=== PATIENT | female | born 1950 | race Caucasian/White ===

== ENCOUNTER 2023-01-13 07:00 | Outpatient (OUT) | payer MEDICARE, SELFPAY ==
[2023-01-13 10:22] LABS: Thyroid Stimulating Hormone 0.303 uIU/mL (0.358-3.740)
[2023-01-13 10:41] LABS: Free T4 1.16 ng/dL (0.76-1.46)
[2023-01-13 10:46] LABS: Free T3 2.37 pg/mL (2.18-3.98)
== END 2023-01-13 07:01 ==
LOC: LAB 01-15 11:08
PROVIDERS: PCP Family Medicine; Visit Provider Family Medicine
DX: E07.81 Sick-euthyroid syndrome (principal); E03.9 Hypothyroidism, unspecified; R53.82 Chronic fatigue, unspecified; E89.0 Postprocedural hypothyroidism
CPT/HCPCS: 36415; 84439; 84443; 84481

== ENCOUNTER 2023-07-30 09:36 | Outpatient (OUT) | payer MEDICARE, SELFPAY ==
--- NOTE | 2023-07-30 09:39 | MM_ITS ---
Patient Name: JOE PEACOCK MR#: [id number] : 1950 Exam Date: 07/30/2023 Ordering Doctor: DR ASHLEY SHERIFF . RADIOLOGY REPORT PROCEDURE: MM TOMOSYNTHESIS SCREENING BI COMPARISON: MG MAMM SCREEN 3D ROLANDO CAD, 02/12/2021. MG MAMM SCREEN ROLANDO W CAD, 07/03/2017. INDICATIONS: Screening Calculator Name NCI Breast Cancer Risk Assessment Tool 5 Year Breast Cancer Risk 2.40% Lifetime Breast Cancer Risk 5.60% Personal Breast Cancer No Personal Ovarian Cancer No Treatments None Family Cancers None LOCATION: [facility] BREAST COMPOSITION: Almost entirely fatty. FINDINGS: DIAGNOSTIC CATEGORY 1--NEGATIVE. NO CHANGE FROM COMPARISON ASSESSMENT. Scattered benign-appearing calcifications are present. Scattered benign-appearing nodules are present. RIGHT BREAST: No significant suspicious finding. LEFT BREAST: No significant suspicious finding. RECOMMENDATIONS: ROUTINE MAMMOGRAM AND CLINICAL EVALUATION IN 12 MONTHS. PLEASE NOTE: A NORMAL MAMMOGRAM DOES NOT EXCLUDE THE POSSIBILITY OF BREAST CANCER. A CLINICALLY SUSPICIOUS PALPABLE LUMP SHOULD BE BIOPSIED. Dictated by: Octavio Giordano MD on 07/30/2023 at 12:41 Approved by: Octavio Giordano MD on 07/30/2023 at 12:42
--- NOTE | 2023-07-30 09:40 | XR_ITS ---
[address] [address] Patient Name: JOE PEACOCK MRN: [id number] date: 1950 Sex: F Assigned Patient Location: [facility] Current Patient Location: [facility] Accession/Order Number: [id number] Exam Date: 07/30/2023 10:00 Report Date: 07/30/2023 12:01 At the request of: ASHLEY SHERIFF Procedure: XR DEXA axial skeleton EXAMINATION: XR DEXA axial skeleton, 07/30/2023 10:00 AM EST HISTORY: Osteoporosis M81.0, Osteopenia Spine M85.88 COMPARISON: 2015, 2011, 2009. TECHNIQUE: Dual-energy X-ray absorptiometry (DEXA) bone density study performed for the axial skeleton. HISTORY: Osteoporosis M81.0, Osteopenia Spine M85.88 FINDINGS: Bone mineral density AP spine L1-L4 measures 1.081 g/sq cm. T score -0.8. WHO classification: Normal. This is related to proliferative osteophyte formation Lowest bone mineral density left femoral trochanter measures 0.342 g/sq cm. T score -4.4. WHO classification: Osteoporosis XR/XR DEXA axial skeleton IMPRESSION: Osteoporosis. High fracture risk Electronically authenticated by: CHIKA SU Date: 07/30/2023 12:01
== END 2023-07-30 09:37 | disposition home or self-care (01) ==
LOC: MAMMO 09:36
PROVIDERS: PCP Family Medicine; Visit Provider Family Medicine
DX: M81.0 Age-related osteoporosis without current pathological fracture (principal); M85.88 Other specified disorders of bone density and structure, other site; Z12.31 Encounter for screening mammogram for malignant neoplasm of breast
CPT/HCPCS: 77063; 77067; 77080

== ENCOUNTER 2023-08-04 10:11 | Outpatient (OUT) | payer MEDICARE, SELFPAY ==
--- OUTSIDE RECORDS SUMMARY | 2023-08-04 10:25 | XMS_ITS | CCD ---
Author Name Unknown Address [facility]ly [facility] 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 Role Phone JAZIEL, DR RAMIREZ Primary Care Unavailable JAZIEL, DR RAMIREZ Admitting Unavailable JAZIEL, DR RAMIREZ Attending Unavailable JAZIEL, DR RAIMREZ Consulting Unavailable JAZIEL, DR RAMIREZ Admitting Unavailable JAZIEL, DR RAMIREZ Attending Unavailable JAZIEL, DR RAMIREZ Consulting Unavailable JAZIEL, DR RAMIREZ Primary Care Unavailable JAZIEL, ASHLEY J Attending Unavailable Allergies Allergy Classification Reported Allergen(s) Allergy Type Date of Onset Reaction(s) Facility (1 source) Cephalexin Drug Allergy 11-28-2013 [facility] (1 source) Iron Drug Allergy 07-03-2015 [facility] (1 source) moxifloxacin Drug Allergy 07-14-2013 [facility] (1 source) Penicillins Drug allergy (disorder) 07-14-2013 [facility] (1 source) Sulfonamides (Antibiotic) Drug allergy (disorder) 07-14-2013 [facility] (1 source) varenicline Drug Allergy 11-28-2013 [facility] Problems Problem Classification Problem Date Documented Date Episodic/Chronic Complications of surgical procedures or medical care (1 source) Postprocedural hypothyroidism; Translations: [POSTPROCEDURAL HYPOTHYROIDISM] Onset: 08-28-2022 Chronic Malaise and fatigue (4 sources) Chronic fatigue, unspecified; Translations: [CHRONIC FATIGUE UNSPECIFIED] Onset: 08-26-2022 Chronic Thyroid disorders (1 source) Sick-euthyroid syndrome; Translations: [SICK-EUTHYROID SYNDROME] Onset: 08-28-2022 Episodic Results Test Name Value Interpretation Reference Range Facil ity REVERSE T3on 08-29-2022 Reverse T3, Serum 23.1 ng/dL Normal 9.2-24.1 [facility] Comment on above: Result Comment: This test was developed and its performance characteristics determined by [facility]. It has not been cleared or approved by the Food and Drug Administration. Performed By: #### R [id number] #### [facility] [address] [place] [address] Dr. Jin Hodges T3, TOTAL (TRIIODOTHYRONINE) on 08-27-2022 T3, TOTAL 136 ng/dL Normal 71-180 [facility] Comment on above: Performed By: #### [id number] #### [facility] [address] [place] [address] Dr. Jin Hodges FREE T3on 08-26-2022 FREE T3 2.98 pg/mlL Normal 2.18-3.98 [facility] Comment on above: Performed By: #### FT3, TSH #### [facility] [address] [place] [address] Dr. Jin Hodges FREE T4on 08-26-2022 Free T4 [Mass/Vol] 0.81 ng/dL Normal 0.76-1.46 [facility] Comment on above: Performed By: #### FT4 #### [facility] [address] [place] [address] Dr. Jin Hodges TSHon 08-26-2022 TSH 0.561 uIU/mL Normal 0.358-3.740 [facility] Comment on above: Performed By: #### FT3, TSH #### [facility] [address] [place] [address] Dr. Jin Hodges REVERSE T3on 03-05-2022 Reverse T3, Serum 21.3 ng/dL Normal 9.2-24.1 [facility] Comment on above: Result Comment: This test was developed and its performance characteristics determined by [facility]. It has not been cleared or approved by the Food and Drug Administration. Performed By: #### R [id number] #### [facility] [address] [place] [address] Dr. Jin Hodges T3, TOTAL (TRIIODOTHYRONINE) on 03-01-2022 T3, TOTAL 123 ng/dL Normal 71-180 [facility] Comment on above: Performed By: #### [id number] #### [facility] [address] [address] [address] Jin Hodges FREE T3on 02-28-2022 FREE T3 3.10 pg/mlL Normal 2.18-3.98 [facility] Comment on above: Performed By: #### TSH, FT3 #### [facility] [address] [address] [address] Jin Hodges FREE T4on 02-28-2022 Free T4 [Mass/Vol] 0.92 ng/dL Normal 0.76-1.46 [facility] Comment on above: Performed By: #### FT4 #### [facility] [address] [address] [address] Jin Hodges TSHon 02-28-2022 TSH 0.133 uIU/mL Critically low 0.358-3.740 [facility] Comment on above: Performed By: #### TSH, FT3 #### [facility] [address] [address] [address] Jin Hodges Encounters Encounter Date Encounter Type Care Provider Facility Start: 07-23-2023 End: 07-23-2023 ambulatory ASHLEY SHERIFF Not Available Start: 08-26-2022 End: 08-27-[address] ASHLEY SHERIFF Facility:[facility] Start: 02-28-2022 End: 03-01-[address] ASHLEY SHERIFF Facility:[facility] Payers Date Payer Category Payer Medicare [id number] 1950 Unknown [id number] 1950 Unknown [id number] 1950 Unknown [id number] Summary Purpose Family History No Family History Records FoundNo Family History Records Found Advance Directives No Advanced Directives Records FoundNo Advanced Directives Records Found Additional Source Comments INFORMATION SOURCE (unrecogn ized section and content) DATE CREATED AUTHOR 08/29/2022 [facility] DATE CREATED AUTHOR AUTHORGregory FREY 07/25/2023 [facility] dical Specialists [facility] FOR RECORDS PERTAINING TO PATIENTS WHO ARE OR HAVE BEEN ENROLLED IN A CHEMICAL DEPENDENCY/SUBSTANCEABUSE PROGRAM, SOME INFORMATION MAY BE OMITTED. This clinical summary was aggregated from multiple sources. Caution should be exercised in using it in the provision of clinical care. This summary normalizes information from multiple sources, and as a consequence, information in this document may materially change the coding, format and clinical context of patient data. In addition, data may be omitted in some cases. CLINICAL DECISIONS SHOULD BE BASED ON THE PRIMARY CLINICAL RECORDS. [email or web address] provides no warranty or guarantee of the accuracy or completeness of information in this document.
[2023-08-04 10:33] LABS: Basophils Absolute Auto 0.1 10^3/uL (0.0-0.1); Basophils Percent Auto 1.2 % (0.2-2.0); Eosinophils Absolute Auto 0.1 10^3/uL (0.0-0.7); Eosinophils Percent Auto 1.7 % (0.9-7.0); Hematocrit 44.8 % (36.0-48.0); Immature Granulocytes Abs Auto 0.01 10^3/uL (0.00-0.03); Immature Granulocytes Pct Auto 0.1 % (0.0-0.5); Lymphocytes Absolute Auto 2.8 10^3/uL (1.2-3.8); Mean Corpuscular HGB Conc 33.5 g/dL (29.9-35.2); Mean Corpuscular Hemoglobin 32.7 pg (26.7-34.0); Mean Corpuscular Volume 97.6 fL (81.0-99.0); Mean Platelet Volume 12.4 fL (9.5-13.5); Monocytes Absolute Auto 0.7 10^3/uL (0.3-0.8); Monocytes Percent Auto 9.8 % (1.7-12.0); Neutrophils Absolute Auto 3.2 10^3/uL (1.4-6.5); Neutrophils Percent Auto 46.2 % (43.0-75.0); Platelet Count 155 10^3/uL (150-450); Red Blood Count 4.59 10^6/uL (4.20-5.40); White Blood Count 6.9 10^3/uL (4.0-11.0)
[2023-08-04 11:15] LABS: Free T4 1.71 ng/dL (0.76-1.46)
[2023-08-04 11:18] LABS: Alanine Aminotransferase 30 U/L (14-59); Albumin Globulin Ratio 0.9; Albumin Level 3.4 g/dL (3.4-5.0); Alkaline Phosphatase 82 U/L (46-116); Anion Gap 9.1; Aspartate Amino Transferase 28 U/L (15-37); BUN Creatinine Ratio 12.3; Bilirubin Total 0.4 mg/dL (0.2-1.0); Calcium 8.9 mg/dL (8.5-10.1); Carbon Dioxide 26.9 mmol/L (21.0-32.0); Chloride 95 mmol/L (98-107); Chol HDL Ratio 2.5; Cholesterol 210 mg/dL (<=200); Estimated GFR (African America >60 (>=60); Estimated GFR (Non-African Ame >60 (>=60); Free T3 1.19 pg/mL (2.18-3.98); Globulin 3.8 g/dL; Glucose 130 mg/dL (74-106); HDL Cholesterol 84 mg/dL (40-60); Sodium 127 mmol/L (136-145); Thyroid Stimulating Hormone 4.947 uIU/mL (0.358-3.740); Total Protein 7.2 g/dL (6.4-8.2); Triglycerides 53 mg/dL (<=150); VLDL CHOLESTEROL 10.6 mg/dL
== END 2023-08-04 10:12 | disposition home or self-care (01) ==
LOC: LAB 10:11
PROVIDERS: PCP Family Medicine; Visit Provider Family Medicine
DX: J96.21 Acute and chronic respiratory failure with hypoxia (principal); E89.0 Postprocedural hypothyroidism; Z13.220 Encounter for screening for lipoid disorders; R53.82 Chronic fatigue, unspecified; M81.0 Age-related osteoporosis without current pathological fracture; E07.81 Sick-euthyroid syndrome
CPT/HCPCS: 36415; 80053; 80061; 84439; 84443; 84481; 85025

== ENCOUNTER 2023-08-11 11:08 | Outpatient (OUT) | payer MEDICARE, SELFPAY ==
--- OUTSIDE RECORDS SUMMARY | 2023-08-11 11:14 | XMS_ITS | CCD ---
Author Name Unknown Address [facility] [address] [place] [address] Organization [facility] Care Team Providers Care Legislative Correspondent Name Role Phone JAZIEL, DR RAMIREZ Primary Care Unavailable JAZIEL, DR RAMIREZ Admitting Unavailable JAZIEL, DR RAMIREZ Attending Unavailable JAZIEL, DR RAMIREZ Consulting Unavailable JAZIEL, DR RAMIREZ Admitting Unavailable JAZIEL, DR RAMIREZ Attending Unavailable JAZIEL, DR RAMIREZ Consulting Unavailable JAZIEL, DR RAMIREZ Primary Care Unavailable JAZIEL, ASHLEY J Attending Unavailable Allergies Allergy Classification Reported Allergen(s) Allergy Type Date of Onset Reaction(s) Facility (1 source) Cephalexin Drug Allergy 11-28-2013 [facility] (1 source) Iron Drug Allergy 07-03-2015 [facility] (1 source) moxifloxacin Drug Allergy 07-14-2013 [facility] (1 source) Penicillins Drug allergy (disorder) 07-14-2013 [facility] (1 source) Sulfonamides (Antibiotic) Drug allergy (disorder) 07-14-2013 [facility] (1 source) varenicline Drug Allergy 11-28-2013 [facility] Problems Problem Classification Problem Date [...] Reverse T3, Serum 23.1 ng/dL Normal 9.2-24.1 [facility] Comment on above: Result Comment: This test was developed and its performance characteristics determined by [facility]. It has not been cleared or approved by the Food and Drug Administration. Performed By: #### R [id number] #### [facility] [address] [place] [address] Dr. Jin Hodges T3, TOTAL (TRIIODOTHYRONINE) on 08-27-2022 T3, TOTAL 136 ng/dL Normal 71-180 [facility] Comment on above: Performed By: #### [id number] #### [facility] [address] [place] [address] Dr. Jin Hodges FREE T3on 08-26-2022 FREE T3 2.98 pg/mlL Normal 2.18-3.98 [facility] Comment on above: Performed By: #### FT3, TSH #### [facility] [address] [place] [address] Dr. Jin Hodges FREE T4on 08-26-2022 Free T4 [Mass/Vol] 0.81 ng/dL Normal 0.76-1.46 [facility] Comment on above: Performed By: #### FT4 #### [facility] [address] [place] [address] Dr. Jin Hodges TSHon 08-26-2022 TSH 0.561 uIU/mL Normal 0.358-3.740 [facility] Comment on above: Performed By: #### FT3, TSH #### [facility] [address] [place] [address] Dr. Jin Hodges REVERSE T3on 03-05-2022 Reverse T3, Serum 21.3 ng/dL Normal 9.2-24.1 [facility] Comment on above: Result Comment: This test was developed and its performance characteristics determined by [facility]. It has not been cleared or approved by the Food and Drug Administration. Performed By: #### R [id number] #### [facility] [address] [place] [address] Dr. Jin Hodges T3, TOTAL (TRIIODOTHYRONINE) on 03-01-2022 T3, TOTAL 123 ng/dL Normal 71-180 [facility] Comment on above: Performed By: #### [id number] #### [facility] [address] [address] [address] Jin Hodges FREE T3on 02-28-2022 FREE T3 3.10 pg/mlL Normal 2.18-3.98 [facility] Comment on above: Performed By: #### TSH, FT3 #### [facility] [address] [address] [address] Jin Hodges FREE T4on 02-28-2022 Free T4 [Mass/Vol] 0.92 ng/dL Normal 0.76-1.46 [facility] Comment on above: Performed By: #### FT4 #### [facility] [address] [address] [address] Jin Hodges TSHon 02-28-2022 TSH 0.133 uIU/mL Critically low 0.358-3.740 [facility] Comment on above: Performed By: #### TSH, FT3 #### [facility] [address] [address] [address] Jin Hodges Encounters Encounter Date Encounter Type Care Provider Facility Start: 07-23-2023 End: 07-23-2023 ambulatory ASHLEY SHERIFF Not Available Start: 08-26-2022 End: 08-27-[address] ASHLEY SHERIFF Facility:[facility] Start: 02-28-2022 End: 03-01-[address] ASHLEY SHERIFF Facility:[facility] Payers Date Payer Category Payer Medicare [id number] 1950 Unknown [id number] 1950 Unknown [id number] 1950 Unknown [id number] Summary Purpose Family History No Family History Records FoundNo Family History Records Found Advance Directives No Advanced Directives Records FoundNo Advanced Directives Records Found Additional Source Comments INFORMATION SOURCE (unrecogn ized section and content) DATE CREATED AUTHOR 08/29/2022 [facility] DATE CREATED AUTHOR AUTHORGregory FREY 07/25/2023 [facility] dical Specialists [facility] FOR RECORDS PERTAINING TO [...] BE BASED ON THE PRIMARY CLINICAL RECORDS. [employer] provides no warranty or guarantee of the accuracy or completeness of information in this document.
[2023-08-11 12:15] LABS: Sodium 136 mmol/L (136-145)
[2023-08-12 17:09] LABS: Osmolality, Urine 552 mOsmol/kg (.)
== END 2023-08-11 11:09 | disposition home or self-care (01) ==
LOC: LAB 11:08
PROVIDERS: PCP Family Medicine; Visit Provider Family Medicine
DX: E87.1 Hypo-osmolality and hyponatremia (principal)
CPT/HCPCS: 36415; 83930; 83935; 84295

== ENCOUNTER 2023-09-11 07:02 | Outpatient (RCR) | payer MEDICARE, SELFPAY ==
[2023-09-11 07:43] VITALS: BP 141/82; PULSE 98; RESP 20; TEMP 36.5; O2SAT 90
--- NOTE | 2023-09-11 07:44 | PC.NURSE ---
0735: Pt. to [facility] amb. Seated in recliner. Educated patient on Cortrosyn stimulation test, denies questions. VSS. Given coffee. 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
[2023-09-11] MEDS: COSYNTROPIN 0.25 MG VIAL 0.00100000000000000002 MG IM (08:14)
--- NOTE | 2023-09-11 08:23 | PC.NURSE ---
0814: Medicated with Cortrosyn 1mcg IM to right deltoid. Trace bleeding to site. Covered with bandaid. Pt. tolerated with min. c/o discomfort. Instructed need to wait 30min. for next blood draw as ordered.
--- NOTE | 2023-09-11 08:44 | PC.NURSE ---
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
--- NOTE | 2023-09-11 08:50 | PC.NURSE ---
0850: Up to bathroom to void. Denies c/o or needs. 0853: Pt. d/c'd, amb to home.
[2023-09-13 15:07] LABS: ACTH, Plasma 16.9 pg/mL (7.2-63.3)
== END 2023-09-24 23:59 | disposition home or self-care (01) ==
LOC: INF 07:02
PROVIDERS: PCP Family Medicine; Visit Provider Family Medicine
DX: E87.1 Hypo-osmolality and hyponatremia (principal)
CPT/HCPCS: 36415; 82024; 82088; 82533; 96372

== ENCOUNTER 2023-11-03 16:08 | Outpatient (OUT) | payer MEDICARE, SELFPAY ==
[2023-11-03 16:57] LABS: Free T4 1.59 ng/dL (0.76-1.46)
[2023-11-03 17:01] LABS: Thyroid Stimulating Hormone 5.237 uIU/mL (0.358-3.740)
== END 2023-11-03 16:09 | disposition home or self-care (01) ==
LOC: LAB 16:11
PROVIDERS: PCP Family Medicine; Visit Provider Family Medicine
DX: E89.0 Postprocedural hypothyroidism (principal)
CPT/HCPCS: 36415; 84439; 84443

== ENCOUNTER 2023-11-17 03:24 | Emergency (ER) | payer MEDICARE, SELFPAY ==
[2023-11-17] VITALS (50 sets, daily range): BP systolic 81–125; BP diastolic 37–81; PULSE 75–110; TEMP 36.7–37; O2SAT 37–100; BMI 25.7
--- NOTE | 2023-11-17 03:30 | CT_ITS ---
[address] [address] Patient Name: JOE PEACOCK MRN: [id number] date: 1950 Sex: F Assigned Patient Location: ED.MAIN Current Patient Location: ED.MAIN Accession/Order Number: [id number] Exam Date: 11/17/2023 04:35 Report Date: 11/17/2023 05:09 At the request of: LIZZY ROCHA Procedure: CT head/brain wo con INDICATION: 73 years old; Female. Fall from chair. TECHNIQUE: CT Head (ax/cor/sag reformats). Ionizing radiation dose reduced via iterative reconstruction/FBP blend and body size kV/mA adjustment. Comparison: Head CT dated 05/03/2021. Brain MRI dated 05/03/2021. FINDINGS: POSTOPERATIVE CHANGES: None. BRAIN PARENCHYMA: No intraparenchymal or extra-axial hemorrhage. No mass effect. No midline shift or herniation. Patchy low-density is seen in the white matter without mass effect. VENTRICLES/EXTRA-AXIAL SPACES: Within normal limits for patient's age. SINUSES/MASTOIDS: Only a portion of the paranasal sinuses are visible. No fluid levels are seen. Mastoids and middle ears are clear. MSK: No displaced or depressed calvarial fracture. OTHER: No hyperdense intraluminal thrombus. Vascular calcifications. TECHNIQUE: CT imaging of the cervical spine was performed. IV contrast: None. Dose reduction techniques were achieved by using automated exposure control and/or adjustment of mA and/or kV according to patient size and/or use of iterative reconstruction technique. COMPARISON: None available. FINDINGS: POSTOPERATIVE CHANGES: None. ALIGNMENT: Nonspecific straightening of the normal cervical curve. Torticollis concave to the left. COMPRESSION FRACTURES: No fracture or vertebral body collapse. No bone destruction. No asymmetric widening of the facets. PREVERTEBRAL SOFT TISSUES: Normal. CRANIOCERVICAL JUNCTION: There is a normal relationship of the occipital condyles, lateral masses of C1, and articular surfaces of C2. The base of the dens and body of C2 are intact. There is narrowing of the predental space with osteophyte formation arising from the anterior arch of C1 and the dens. POSTERIOR FOSSA: Cerebellar tonsils are above the foramen magnum. Disc levels: C2-C3: There is disc space narrowing with [id number] appearance associated with extensive endplate sclerosis. Bulky bridging anterior osteophyte formation is seen. Facet degeneration is present, bilaterally. Central canal is patent. Mild foraminal stenosis. C3-C4: Disc space narrowing. Vertebral endplate degeneration with endplate cystic and vacuum changes. Bulky bridging anterior osteophytes. Facet degeneration. Uncovertebral joint degeneration. Mild central canal stenosis. Moderate left-sided foraminal stenosis. C4-C5: Disc space narrowing. Vertebral endplate degeneration with endplate cystic and vacuum changes. Facet degeneration with hwoq-wo-cjmn appearance of the facets on the left. Bulky bridging anterior osteophytes. Central canal patent. Mild foraminal stenosis bilaterally. C5-C6: This space narrowing. Bulky bridging anterior osteophytes. Central canal patent. Neural foramina patent. C6-C7: Disc space narrowing. Vertebral endplate degeneration. Endplate cystic and vacuum changes. Uncovertebral joint degeneration. Facet degeneration. Central canal patent. Moderate to severe left-sided foraminal stenosis. C7-T1: Disc space narrowing. Bulky bridging anterior osteophytes. Vacuum disc degeneration. Central canal patent. Neural foramina patent. UPPER THORACIC SPINE: At T1-T2, disc space narrowing. Vertebral endplate degeneration with sclerosis and cystic changes. Facet degeneration. Central canal patent. Mild left-sided foraminal stenosis. OTHER: Multiple surgical clips in the region of the thyroid gland. CT/CT head/brain wo con IMPRESSION: 1. No acute intracranial abnormality. No hemorrhage or mass effect. 2. Nonspecific white matter changes. 3. Vascular calcification. 4. Diffuse cervical spondylosis. No acute fracture. Please see the detailed discussion of the individual levels in the body of this report. Electronically authenticated by: CHRISTINE MILLER Date: 11/17/2023 05:09
--- NOTE | 2023-11-17 03:30 | CT_ITS ---
[address] [address] Patient Name: JOE PEACOCK MRN: [id number] date: 1950 Sex: F Assigned Patient Location: ED.MAIN Current Patient Location: ED.MAIN Accession/Order Number: [id number] Exam Date: 11/17/2023 04:35 Report Date: 11/17/2023 05:09 At the request of: LIZZY ROCHA Procedure: CT cervical spine wo con INDICATION: 73 years old; Female. Fall from chair. TECHNIQUE: CT Head (ax/cor/sag reformats). Ionizing radiation dose reduced via iterative reconstruction/FBP blend and body size kV/mA adjustment. Comparison: Head CT dated 05/03/2021. Brain MRI dated 05/03/2021. FINDINGS: POSTOPERATIVE CHANGES: None. BRAIN PARENCHYMA: No intraparenchymal or extra-axial hemorrhage. No mass effect. No midline shift or herniation. Patchy low-density is seen in the white matter without mass effect. VENTRICLES/EXTRA-AXIAL SPACES: Within normal limits for patient's age. SINUSES/MASTOIDS: Only a portion of the paranasal sinuses are visible. No fluid levels are seen. Mastoids and middle ears are clear. MSK: No displaced or depressed calvarial fracture. OTHER: No hyperdense intraluminal thrombus. Vascular calcifications. TECHNIQUE: CT imaging of the cervical spine was performed. IV contrast: None. Dose reduction techniques were achieved by using automated exposure control and/or adjustment of mA and/or kV according to patient size and/or use of iterative reconstruction technique. COMPARISON: None available. FINDINGS: POSTOPERATIVE CHANGES: None. ALIGNMENT: Nonspecific straightening of the normal cervical curve. Torticollis concave to the left. COMPRESSION FRACTURES: No fracture or vertebral body collapse. No bone destruction. No asymmetric widening of the facets. PREVERTEBRAL SOFT TISSUES: Normal. CRANIOCERVICAL JUNCTION: There is a normal relationship of the occipital condyles, lateral masses of C1, and articular surfaces of C2. The base of the dens and body of C2 are intact. There is narrowing of the predental space with osteophyte formation arising from the anterior arch of C1 and the dens. POSTERIOR FOSSA: Cerebellar tonsils are above the foramen magnum. Disc levels: C2-C3: There is disc space narrowing with [id number]-[id number] appearance associated with extensive endplate sclerosis. Bulky bridging anterior osteophyte formation is seen. Facet degeneration is present, bilaterally. Central canal is patent. Mild foraminal stenosis. C3-C4: Disc space narrowing. Vertebral endplate degeneration with endplate cystic and vacuum changes. Bulky bridging anterior osteophytes. Facet degeneration. Uncovertebral joint degeneration. Mild central canal stenosis. Moderate left-sided foraminal stenosis. C4-C5: Disc space narrowing. Vertebral endplate degeneration with endplate cystic and vacuum changes. Facet degeneration with mvaa-fa-msoe appearance of the facets on the left. Bulky bridging anterior osteophytes. Central canal patent. Mild foraminal stenosis bilaterally. C5-C6: This space narrowing. Bulky bridging anterior osteophytes. Central canal patent. Neural foramina patent. C6-C7: Disc space narrowing. Vertebral endplate degeneration. Endplate cystic and vacuum changes. Uncovertebral joint degeneration. Facet degeneration. Central canal patent. Moderate to severe left-sided foraminal stenosis. C7-T1: Disc space narrowing. Bulky bridging anterior osteophytes. Vacuum disc degeneration. Central canal patent. Neural foramina patent. UPPER THORACIC SPINE: At T1-T2, disc space narrowing. Vertebral endplate degeneration with sclerosis and cystic changes. Facet degeneration. Central canal patent. Mild left-sided foraminal stenosis. OTHER: Multiple surgical clips in the region of the thyroid gland. CT/CT cervical spine wo con IMPRESSION: 1. No acute intracranial abnormality. No hemorrhage or mass effect. 2. Nonspecific white matter changes. 3. Vascular calcification. 4. Diffuse cervical spondylosis. No acute fracture. Please see the detailed discussion of the individual levels in the body of this report. Electronically authenticated by: CHRISTINE MILLER Date: 11/17/2023 05:09
--- NOTE | 2023-11-17 03:30 | ECG_ITS ---
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
--- NOTE | 2023-11-17 03:31 | ED.FALL1 ---
HPI HPI - Fall General Chief Complaint: Fall Stated Complaint: FALL HEAD INJURY Time Seen by Provider: 11/17/23 03:26 History of Present Illness HPI Narrative: 73-year-old female presents because she fell. It happened less than an hour ago in her kitchen and she states her legs gave out. Yesterday she also fell when her legs gave out and she sustained an abrasion to her nose. She appears to have hit her right forehead and has some neck pain. No injury to her extremities chest or abdomen or back. She was transported here by paramedics Related Data Home Medications ?Medication ?Instructions ?Recorded ?Confirmed baclofen 20 mg tablet 20 mg PO Q8H 11/17/23 11/17/23 buspirone 15 mg tablet 15 mg PO TID 11/17/23 11/17/23 Allergies Allergy/AdvReac Type Severity Reaction Status Date / Time moxifloxacin [From Avelox] Allergy Hives Verified 11/17/23 03:44 codeine AdvReac Verified 11/17/23 03:44 Opioid HPI Opioid Management Most Recent Pain and Opioid Data: Last Pain Scale 8 11/17/23 04:28 Last ED Pain Assessment 11/17/23 03:57 Last MAR Pain Assessment 11/17/23 04:28 Review of Systems ROS Narrative A ten point review of systems is negative except as noted above. Exam Narrative Exam Narrative: Nurses note and vital signs reviewed and patient is not hypoxic. General: The patient appears well and in no apparent distress. Patient is resting comfortably on cart. Skin: Warm, dry, pallor noted. There is no rash noted. Head: Normocephalic, small bruise present on the right side of her forehead. No focal area of tenderness to palpation of her neck. Eye: Normal conjunctiva, no drainage Ears, Nose, Mouth, and Throat: oral mucosa is moist. Nares patent. Cardiovascular: Regular Rate and Rhythm Respiratory: Patient is in no distress, no accessory muscle use, lungs are clear to auscultation, no wheezing, rales or rhonchi Back: non-tender GI: Soft and nontender Musculoskeletal: No palpable tenderness to her extremities, all joints including the hips have full range of motion actively. Neurological: A&O, normal speech Psychiatric: Cooperative Constitutional Vital Signs, click to edit/add: Last Vital Signs Temp 98.1 F 11/17/23 03:27 Pulse 81 04/23/24 04:34 Resp 14 11/17/23 04:34 BP 110/57 11/17/23 04:34 Pulse Ox 94 L 11/17/23 04:34 O2 Del Method Room Air 11/17/23 04:34 Course Vital Signs Vital signs: Vital Signs Temperature 98.1 F 11/17/23 03:27 Pulse Rate 82 11/17/23 03:27 Respiratory Rate 16 11/17/23 03:27 Blood Pressure 94/47 L 11/17/23 03:27 Pulse Oximetry 92 L 11/17/23 03:27 Oxygen Delivery Method Room Air 11/17/23 03:27 Temperature 98.1 F 11/17/23 03:27 Pulse Rate 81 11/17/23 04:34 Respiratory Rate 14 11/17/23 04:34 Blood Pressure 110/57 11/17/23 04:34 Pulse Oximetry 94 L 11/17/23 04:34 Oxygen Delivery Method Room Air 11/17/23 04:34 MDM - Fall MDM Narrative Medical decision making narrative: The patient has had black stools and she has had this for few weeks. She is heme positive with a hemoglobin of 4.8. She is hemodynamically stable and typed and crossed and 2 units of blood were ordered. I have spoken to hospitalist at [facility] and the patient is excepted there for transfer at the patient's request. Findings were discussed with the patient and her family. Differential Diagnosis Differential diagnosis: Likely syncope and other (GI bleed, anemia, dehydration) Lab Data Attestation: I reviewed the patient's lab results. Labs: Lab Results 11/17/23 11/17/23 Range/Units 03:39 03:55 WBC 11.6 H (4.0-11.0) 10^3/uL RBC 1.45 L (4.20-5.40) 10^6/uL Hgb 4.8 L* (12.0-16.0) g/dL Hct 15.1 L* (36.0-48.0) % MCV 104.1 H (81.0-99.0) fL MCH 33.1 (26.7-34.0) pg MCHC 31.8 (29.9-35.2) g/dL RDW 17.4 H (11.0-15.0) % Plt Count 288 (150-450) 10^3/uL MPV 11.6 (9.5-13.5) fL Neut % (Auto) 68.4 (43.0-75.0) % Lymph % (Auto) 22.6 (20.5-60.0) % [place] % (Auto) 7.3 (1.7-12.0) % Eos % (Auto) 0.5 L (0.9-7.0) % Baso % (Auto) 0.2 (0.2-2.0) % Neut # (Auto) 7.9 H (1.4-6.5) 10^3/uL Lymph # (Auto) 2.6 (1.2-3.8) 10^3/uL [place] # (Auto) 0.9 H (0.3-0.8) 10^3/uL Eos # (Auto) 0.1 (0.0-0.7) 10^3/uL Baso # (Auto) 0.0 (0.0-0.1) 10^3/uL Abs Immat Gran (auto) 0.12 H (0.00-0.03) 10^3/uL Imm/Tot Granulo (auto) 1.0 H (0.0-0.5) % Sodium 135 L (136-145) mmol/L Potassium 4.3 (3.5-5.1) mmol/L Chloride 100 (98-107) mmol/L Carbon Dioxide 25.8 (21.0-32.0) mmol/L Anion Gap 13.5 BUN 27.0 H (7.0-18.0) mg/dL Creatinine 0.81 (0.55-1.02) mg/dL Est GFR ( Amer) >60 (>=60) Est GFR (Non-Af Amer) >60 (>=60) BUN/Creatinine Ratio 33.3 Glucose 127 H (74-106) mg/dL Calcium 8.3 L (8.5-10.1) mg/dL Stool Occult Blood Positive A Blood Type A Positive Antibody Screen Negative Imaging Data CT scan - head: Radiologist's impression: ITS Impressions Cervical Spine CT 11/17/23 03:30 IMPRESSION: 1. No acute intracranial abnormality. No hemorrhage or mass effect. 2. Nonspecific white matter changes. 3. Vascular calcification. 4. Diffuse cervical spondylosis. No acute fracture. Please see the detailed discussion of the individual levels in the body of this report. Electronically authenticated by: CHRISTINE MILLER Date: 11/17/2023 05:[address] 11/17/23 03:30 IMPRESSION: 1. No acute intracranial abnormality. No hemorrhage or mass effect. 2. Nonspecific white matter changes. 3. Vascular calcification. 4. Diffuse cervical spondylosis. No acute fracture. Please see the detailed discussion of the individual levels in the body of this report. Electronically authenticated by: CHRISTINE MILLER Date: 11/17/2023 05:09 ECG Data Attestation: I personally reviewed and interpreted this ECG as follows: (EKG on my interpretation shows sinus rhythm with a rate of 104) Discharge Plan Discharge Chief Complaint: Fall Clinical Impression: GI bleed, Anemia Patient Disposition: [facility] Time of Disposition Decision: 04:50 Discharge Location: [facility] Condition: Fair Mode of Transportation: EMS
[2023-11-17 03:47] LABS: Basophils Percent Auto 0.2 % (0.2-2.0); Eosinophils Absolute Auto 0.1 10^3/uL (0.0-0.7); Eosinophils Percent Auto 0.5 % (0.9-7.0); Immature Granulocytes Abs Auto 0.12 10^3/uL (0.00-0.03); Lymphocytes Absolute Auto 2.6 10^3/uL (1.2-3.8); Lymphocytes Percent Auto 22.6 % (20.5-60.0); Mean Corpuscular HGB Conc 31.8 g/dL (29.9-35.2); Mean Corpuscular Hemoglobin 33.1 pg (26.7-34.0); Mean Corpuscular Volume 104.1 fL (81.0-99.0); Mean Platelet Volume 11.6 fL (9.5-13.5); Monocytes Absolute Auto 0.9 10^3/uL (0.3-0.8); Monocytes Percent Auto 7.3 % (1.7-12.0); Neutrophils Absolute Auto 7.9 10^3/uL (1.4-6.5); Neutrophils Percent Auto 68.4 % (43.0-75.0); Platelet Count 288 10^3/uL (150-450); Red Blood Count 1.45 10^6/uL (4.20-5.40); Red Cell Distribution Width 17.4 % (11.0-15.0); White Blood Count 11.6 10^3/uL (4.0-11.0)
[2023-11-17 03:52] LABS: Hemoglobin 4.8 g/dL (12.0-16.0)
[2023-11-17 03:53] LABS: Hematocrit 15.1 % (36.0-48.0)
--- OUTSIDE RECORDS SUMMARY | 2023-11-17 04:01 | XMS_ITS | CCD ---
Author Organization [facility] Care Team Providers Care Perioperative Assistant Name Role Phone JAZIEL, DR RAMIREZ Primary Care Unavailable JAZIEL, DR RAMIREZ Admitting Unavailable JAZIEL, DR RAMIREZ Attending Unavailable JAZIEL, DR RAMIREZ Consulting Unavailable JAZIEL, DR RAMIREZ Admitting Unavailable JAZIEL, DR RAMIREZ Attending Unavailable JAZIEL, DR RAMIREZ Consulting Unavailable JAZIEL, DR RAMIREZ Primary Care Unavailable Catracho Sheriff MD Unavailable [phone] Catracho Sheriff MD Primary Care Provider [phone] CATRACHO SHERIFF Attending Unavailable CATRACHO SHERIFF Attending Unavailable CATRACHO SHERIFF Attending Unavailable CATRACHO SHERIFF Attending Unavailable CATRACHO SHERIFF Attending Unavailable Allergies Allergy Classification Reported Allergen(s) Allergy Type Date of Onset Reaction(s) Facility (1 source) Cephalexin Drug Allergy 4 [facility] (1 source) Iron Drug Allergy 5 [facility] (1 source) moxifloxacin Drug Allergy 3 [facility] (1 source) Penicillins Drug allergy (disorder) 3 [facility] (1 source) Sulfonamides (Antibiotic) Drug allergy (disorder) 3 [facility] (1 source) varenicline Drug Allergy 4 [facility] (1 source) busPIRone Drug Allergy 3 [facility] (1 source) Cephalexin Drug Allergy 3 [facility] (1 source) Codeine Drug Allergy 3 [facility] (1 source) Mirtazapine Drug Allergy 3 Hallucinations [facility] (1 source) moxifloxacin Drug Allergy 3 [facility] (1 source) Penicillins Drug Allergy 3 Rash [facility] (1 source) traZODone Drug Allergy 3 [facility] (1 source) varenicline Drug Allergy 3 [facility] Medications Current Medications Medication Drug Class(es) Dates Sig (Normalized) Sig (Original) [id number] 200 actuat albuterol 0.09 mg/actuat metered dose inhaler (1 source) beta2-Adrenergi c Agonist take 2 puff(s) by inhalation every six hours as needed, then take 2 puff(s) by inhalation four times daily as needed albuterol HFA (Ventolin HFA) 90 mcg/act inhaler Inhale 2 puffs every 6 (six) hours if needed. 2 puffs as needed Inhalation four times daily as needed for 90 days 0 Active albuterol 0.833 mg/ml / ipratropium bromide 0.167 mg/ml inhalation solution (1 source) Anticholinergic , beta2-Adrenergi c Agonist ipratropium-albutero l (Duo-Neb) 0.5-2.5 mg/3 mL nebulizer solution Take 3 mL by nebulization in the morning and 3 mL at noon and 3 mL in the evening and 3 mL before bedtime. 0 Active baclofen 20 mg oral tablet (1 source) gamma-Aminobuty joselito Acid-ergic Agonist Start: 07-30-2023 baclofen (Lioresal) 20 MG tablet Indications: Chronic pain syndrome Take one half tablet in the morning, One half tablet at lunch, and 2 tablets in the evening 270 tablet 0 07/30/2023 Active busPIRone hydrochloride 15 mg oral tablet (1 source) Start: 04-29-2023 busPIRone (Buspar) 15 MG tablet Indications: Generalized anxiety disorder (CMS/HCC) Take 1 tablet at breakfast and 1 tablet lunch, and 2 tablets at bedtime. 360 tablet 1 04/29/2023 Active calcium citrate 1040 mg oral tablet (1 source) calcium citrate 1040 MG tablet Take 250 mg by mouth in the morning and 250 mg before bedtime. 0 Active cholecalciferol 0.025 mg oral capsule (2 sources) Vitamin D take 1 capsule by mouth in the morning cholecalciferol (Vitamin D-3) 25 MCG (1000 UT) capsule Take 3,000 Units by mouth in the morning. Summer Dose. 0 Active take 1 tablet by mouth in the mo rn cholecalciferol (Vitamin D-3) 125 MCG (5000 UT) tablet Take 5,000 Units by mouth in the morning. Winter dose. 0 Active doxycycline hyclate 100 mg oral tablet (1 source) Tetracycline-class Drug Start: 08-21-2023 End: 09-04-2023 doxycycline (Vibra-Tabs) 100 MG tablet Indications: Cellulitis of lower extremity, unspecified laterality Take 1 tablet (100 mg) by mouth in the morning and 1 tablet (100 mg) before bedtime. Do all this for 14 days. Take with a full glass of water and do not lie down for at least 30 minutes after.. 28 tablet 0 08/21/2023 09/04/2023 Active DULoxetine 20 mg delayed release oral capsule (1 source) Serotonin and Norepinephrine Reuptake Inhibitor Start: 08-21-2023 End: 11-19-2023 take 2 capsules by mouth in the morning DULoxetine (Cymbalta) [address] capsule Indications: Chronic pain syndrome Take 2 capsules (40 mg) by mouth in the morning. 180 capsule 0 08/21/2023 11/19/2023 Active 120 actuat fluticasone propionate 0.22 mg/actuat metered dose inhaler (1 source) Corticosteroid Start: 12-02-2022 take 1 puff(s) by inhalation in the morning Flovent HFA 220 MCG/ACT inhaler Inhale 1 puff in the morning and 1 puff before bedtime. 0 12/02/2022 Active gabapentin 100 mg oral capsule (2 sources) Anti-epileptic Agent Start: 05-28-2023 End: 02-21-2024 take 1 capsule by mouth in the morning, then take 1 capsule by mouth in the evening, then take 1 capsule by mouth at bedtime gabapentin (Neurontin) 100 MG capsule Indications: Chronic pain syndrome Take 1 capsule (100 mg) by mouth in the morning and 1 capsule (100 mg) in the evening and 1 capsule (100 mg) before bedtime. 270 capsule 1 08/25/2023 02/21/2024 Active levothyroxine sodium 0.15 mg oral tablet (1 source) l-Thyroxine Start: 08-21-2023 levothyroxine (Synthroid) 150 MCG tablet Indications: Acquired hypothyroidism (CMS/HCC) Take 1 tablet daily 90 tablet 1 08/21/2023 Active melatonin 3 mg oral tablet (1 source) take 2 tablets by mouth at bedtime melatonin 3 MG tablet Take 3 mg by mouth at bedtime. 2 tablet Orally at bedtime 0 Active nabumetone 750 mg oral tablet (1 source) Nonsteroidal Anti-inflammatory Drug Start: 04-29-2023 End: 10-26-2023 take 2 tablets by mouth in the morning nabumetone (Relafen) 750 MG tablet Indications: Chronic pain syndrome Take 2 tablets (1,500 mg) by mouth in the morning. 180 tablet 1 04/29/2023 10/26/2023 Active spironolactone 25 mg oral tablet (1 source) Aldosterone Antagonist Start: 08-21-2023 End: 02-17-2024 take 1 tablet by mouth in the morning spironolactone (Aldactone) 25 MG tablet Indications: Venous (peripheral) insufficiency Take 1 tablet (25 mg) by mouth in the morning. 90 tablet 1 08/21/2023 02/17/2024 Active STRONTIUM CITRATE (1 source) take 1 tablet by mouth in the morning STRONTIUM CITRATE Take 1 tablet by mouth in the morning. 0 Active traMADol hydrochloride 50 mg oral tablet (1 source) Opioid Agonist Start: 07-23-2023 End: 10-21-2023 traMADol (Ultram) 50 MG tablet Indications: Chronic pain syndrome Take 2 tablets (100 mg) by mouth in the morning and 2 tablets (100 mg) at noon and 2 tablets (100 mg) in the evening and 2 tablets (100 mg) before bedtime. 240 tablet 2 07/23/2023 10/21/2023 Active zinc gluconate 50 mg oral tablet (1 source) take 0.5 tablet by mouth once daily zinc gluconate 50 MG tablet Take 50 mg by mouth See administration instructions. 1/2 tablet= 25mg Orally Once a day for 30 day(s) 0 Active Problems Active Problems Problem Classification Problem Date Documented Date Episodic/Chronic Anxiety disorders (1 source) Generalized anxiety disorder; Translations: [Generalized anxiety disorder] Onset: 01-06-2023 08-13-2023 Chronic Chronic obstructive pulmonary disease and bronchiectasis (3 sources) Mucopurulent chronic bronchitis; Translations: [Mucopurulent chronic bronchitis] Onset: 05-30-2016 Resolved: 08-13-2023 01-06-2023 Chronic Complications of surgical procedures or medical care (2 sources) Postprocedural hypothyroidism; Translations: [Postoperative hypothyroidism] Onset: 08-28-2022 01-06-2023 Chronic Esophageal disorders (1 source) Gastroesophageal reflux disease; Translations: [Gastro-esophageal reflux disease without esophagitis] Onset: 01-06-2023 01-06-2023 Chronic Malaise and fatigue (5 sources) Chronic fatigue, unspecified; Translations: [Fatigue] Onset: 08-26-2022 Chronic Osteoarthritis (4 sources) Bilateral arthritis of knees; Translations: [Bilateral primary osteoarthritis of knee] Onset: 01-06-2023 09-04-2023 Chronic Osteoporosis (1 source) Osteoporosis; Translations: [Age-related osteoporosis without current pathological fracture] Onset: 01-06-2023 01-06-2023 Chronic Other diseases of veins and lymphatics (2 sources) Stasis dermatitis; Translations: [Venous insufficiency (chronic) (peripheral)] Onset: 01-06-2023 09-04-2023 Episodic Other nervous system disorders (2 sources) Chronic pain syndrome; Translations: [Chronic pain syndrome] Onset: 01-06-2023 09-04-2023 Chronic Residual codes; unclassified (1 source) Sleep dysfunction with arousal disturbance; Translations: [Other sleep disorders] Onset: 01-06-2023 01-06-2023 Chronic Respiratory failure; insufficiency; arrest (adult) (6 sources) Chronic hypoxemic respiratory failure; Translations: [Chronic respiratory failure with hypoxia] Onset: 01-06-2023 Resolved: 08-13-2023 09-04-2023 Chronic Screening and history of mental health and substance abuse codes (1 source) Ex-smoker; Translations: [Personal history of nicotine dependence] Onset: 07-23-2023 07-23-2023 Episodic Spondylosis; intervertebral disc disorders; other back problems (3 sources) Lumbar post-laminectomy syndrome; Translations: [Postlaminectomy syndrome, not elsewhere classified] Onset: 01-06-2023 Resolved: 08-13-2023 01-06-2023 Chronic Past or Other Problems Problem Classification Problem Date Documented Da te Episodic/Chronic Complications of surgical procedures or medical care (1 source) Complication of surgical procedure; Translations: [Unspecified complication of procedure, initial encounter] Onset: 09-03-2020 Resolved: 07-31-2023 07-31-2023 Episodic Mood disorders (1 source) Recurrent major depression in partial remission; Translations: [Major depressive disorder, recurrent, in partial remission] Onset: 01-06-2023 Resolved: 08-13-2023 08-13-2023 Chronic Mood disorders (1 source) Mood disorders Onset: 08-13-2023 08-13-2023 Other aftercare (1 source) Polypharmacy ; Translations: [Other longterm (current) drug therapy] Onset: 09-07-2020 01-28-2023 Episodic Other aftercare (1 source) Taking high risk medication; Translations: [Other longterm (current) drug therapy] Onset: 09-07-2020 Resolved: 07-31-2023 07-31-2023 Episodic Other bone disease and musculoskeletal deformities (1 source) Osteopenia; Translations: [Other specified disorders of bone density and structure, other site] Onset: 01-06-2023 01-06-2023 Episodic Other connective tissue disease (1 source) Fibromyalgia; Translations: [Fibromyalgia] Onset: 01-06-2023 01-06-2023 Episodic Other diseases of veins and lymphatics (1 source) Peripheral venous insufficiency; Translations: [Venous insufficiency (chronic) (peripheral)] Onset: 01-06-2023 01-06-2023 Episodic Other injuries and conditions due to external causes (1 source) At risk for falls ; Translations: [History of falling] Onset: 05-28-2018 01-28-2023 Episodic Other nervous system disorders (1 source) Difficulty walking; Translations: [Difficulty in walking, not elsewhere classified] Onset: 01-06-2023 Resolved: 07-31-2023 07-31-2023 Chronic Other nervous system disorders (1 source) Allodynia; Translations: [Other disturbances of skin sensation] Onset: 01-06-2023 01-06-2023 Episodic Other nervous system disorders (1 source) White matter disease; Translations: [White matter disease, unspecified] Onset: 01-06-2023 08-13-2023 Episodic Other nutritional; endocrine; and metabolic disorders (1 source) Overweight; Translations: [Overweight] Onset: 12-05-2015 01-28-2023 Episodic Other upper respiratory infections (1 source) Maxillary sinusitis; Translations: [Chronic maxillary sinusitis] Onset: 01-06-2023 Resolved: 08-13-2023 08-13-2023 Chronic Substance-related disorders (1 source) Cigarette smoker ; Translations: [Nicotine dependence, cigarettes, uncomplicated] Onset: 05-27-2021 Resolved: 07-31-2023 07-31-2023 Chronic Thyroid disorders (2 sources) Sick-euthyroid syndrome; Translations: [Sick-euthyroid syndrome] Onset: 08-28-2022 01-06-2023 Episodic Varicose veins of lower extremity (1 source) Varicose vein of leg with phlebitis; Translations: [Varicose veins of right lower extremity with inflammation] Onset: 01-06-2023 Resolved: 08-13-2023 08-13-2023 Episodic Results Test Name Value Interpretation Reference Range Facil ity REVERSE T3on 08-29-2022 Reverse T3, Serum 23.1 ng/dL Normal 9.2-24.1 [facility] Comment on above: Result Comment: This test was developed and its performance characteristics determined by [facility]. It has not been cleared or approved by the Food and Drug Administration. Performed By: #### R [id number] #### [facility] [address] [address] [address] Jin Hodgse T3, TOTAL (TRIIODOTHYRONINE) on 08-27-2022 T3, TOTAL 136 ng/dL Normal 71-180 [facility] Comment on above: Performed By: #### [id number] #### [facility] [address] [address] [address] Jin Hodges FREE T3on 08-26-2022 FREE T3 2.98 pg/mlL Normal 2.18-3.98 [facility] Comment on above: Performed By: #### FT3, TSH #### [facility] [address] [address] [address] Jin Hodges FREE T4on 08-26-2022 Free T4 [Mass/Vol] 0.81 ng/dL Normal 0.76-1.46 [facility] Comment on above: Performed By: #### FT4 #### [facility] [address] [place] [address] Dr. Jin Hodges TSHon 08-26-2022 TSH 0.561 uIU/mL Normal 0.358-3.740 [facility] Comment on above: Performed By: #### FT3, TSH #### [facility] [address] [place] [address] Dr. Jin Hodges REVERSE T3on 03-05-2022 Reverse T3, Serum 21.3 ng/dL Normal 9.2-24.1 [facility] Comment on above: Result Comment: This test was developed and its performance characteristics determined by [facility]. It has not been cleared or approved by the Food and Drug Administration. Performed By: #### R [id number] #### [facility] [address] [place] [address] Dr. Jin Hodges T3, TOTAL (TRIIODOTHYRONINE) on 03-01-2022 T3, TOTAL 123 ng/dL Normal 71-180 [facility] Comment on above: Performed By: #### [id number] #### [facility] [address] [place] [address] Dr. Jin Hodges FREE T3on 02-28-2022 FREE T3 3.10 pg/mlL Normal 2.18-3.98 [facility] Comment on above: Performed By: #### TSH, FT3 #### [facility] [address] [place] [address] Dr. Jin Hodges FREE T4on 02-28-2022 Free T4 [Mass/Vol] 0.92 ng/dL Normal 0.76-1.46 [facility] Comment on above: Performed By: #### FT4 #### [facility] [address] [place] [address] Dr. Jin Hodges TSHon 02-28-2022 TSH 0.133 uIU/mL Critically low 0.358-3.740 [facility] Comment on above: Performed By: #### TSH, FT3 #### [facility] [address] [address] [address] Jin Hodges Vital Signs Date Time Vital Sign Value Performing Clinician Faci lity 08-25-2023 10:17050 Body height 162.6 cm Catracho Sheriff MD Work Phone: [facility] 08-25-2023 10:17-0500 Body mass index (BMI) [Ratio] 25.06 kg/m2 Catracho Sheriff MD Work Phone: [facility] 08-25-2023 10:17050 Body weight 66.22 kg Catracho Sheriff MD Work Phone: [facility] Encounters Encounter Date Encounter Type Care Provider Facility Start: 11-03-2023 End: 11-03-2023 ambulatory CATRACHO SHERIFF Not Available Start: 10-21-2023 End: 10-21-2023 ambulatory CATRACHO SHERIFF Not Available Start: 08-25-2023 End: 08-25-2023 ambulatory CATRACHO SHERIFF Not Available Start: 08-25-2023 End: 08-25-2023 Office outpatient visit 25 minutes Catracho Sheriff MD Work Phone: [facility] Comment on above: Chronic pain syndrom e (Primary Dx); Chronic respiratory failure with hypoxia (CMS/HCC); Dependence on supplemental oxygen; Stasis dermatitis of both legs; Arthritis of both knees Start: 08-13-2023 End: 08-13-2023 ambulatory CATRACHO SHERIFF Not Available Start: 07-23-2023 End: 07-23-2023 ambulatory CATRACHO SHERIFF Not Available Start: 08-26-2022 End: 08-27-[address] CATRACHO SHERIFF Facility:[facility] Start: 02-28-2022 End: 03-01-[address] CATRACHO SHERIFF Facility:[facility] Procedures Date Procedure Procedure Detail Performing Clinician Start: 09-12-2013 Colonoscopy Catracho lazo MD Work Phone: Plan of Treatment Date Care Activity Detail Author Start: 08-13-2024 Medicare Annual Well ness (AWV) Medicare Annual Wellness (AWV) [facility] Start: 10-21-2023 End: 10-21-2023 Patient encounter procedure 10/21/2023 10:30 AM EDT Office Visit [facility] [address] [place] [address] Catracho Sheriff MD [address] [place] [address] (Fax) [facility] Start: 09-12-2023 Screening for malign ant neoplasm of colon [facility] Start: 03-27-2023 Influenza vaccination Influenza Vacc ine (#1) [facility] Start: 1950 Screening for malign ant neoplasm of colon [facility] Immunizations Immunization Date Immunization Notes Care Provider Fa cility 05-03-2021 Seasonal, trivalent, recombinant, injectable influenza vaccine, preservative free Catracho Sheriff MD Work Phone: [facility] 05-03-2021 influenza virus vacc ine, unspecified formulation Catracho Sheriff MD Work Phone: [facility] 12-03-2020 Pfizer Purple Cap SARS-CoV-2 Vaccination Catracho Sheriff MD Work Phone: [facility] 11-12-2020 Pfizer Purple Cap SARS-CoV-2 Vaccination Catracho Sheriff MD Work Phone: [facility] 09-26-2019 Influenza, High-dose Seasonal, Quadrivalent, Preservative Free Catracho Sheriff MD Work Phone: [facility] 09-26-2019 pneumococcal polysaccharide vaccine, 23 valent Catracho Sheriff MD Work Phone: [facility] 06-26-2018 influenza, injectabl e, quadrivalent, preservative free Catracho Sheriff MD Work Phone: [facility] 06-26-2018 pneumococcal conjuga te vaccine, 13 valent Catracho Sheriff MD Work Phone: [facility] 11-11-2004 pneumococcal polysaccharide vaccine, 23 valent Catracho Sheriff MD Work Phone: [facility] 11-11-2004 tetanus and diphther ia toxoids, adsorbed, preservative free, for adult use (5 Lf of tetanus toxoid and 2 Lf of diphtheria toxoid) Catracho Sheriff MD Work Phone: [facility] Payers Date Payer Category Payer Medicare [employer]VANTAGE [employer]ARE [id number] 2022-Present [address] [address] [place] [address] [id number] 1961 Medicare [id number] 1950 Unknown [id number] 1948 Unknown [id number] 3 1948 Unknown [id number] 1948 Unknown [id number] 59 1948 Unknown [id number] 59 1948 Unknown [id number] 59 1950 Unknown [id number] Social History Date Type Detail Facility Start: 08-13-2023 Tobacco smoking stat [facility] Ex-smoker [facility] History of tobacco use Current smoker [facility] History of tobacco use Cigarette Smoker [facility] Start: 08-13-2023 Tobacco use and exposure Smoke less tobacco non-user [facility] Start: 08-25-2023 Alcohol intake Ex-drinker (finding) [facility] Start: 08-13-2023 End: 08-25-2023 [facility] Start: 08-13-2023 End: 08-25-2023 Tobacco use panel [facility] Start: 02-24-2023 Education 13 [facility] Start: 02-24-2023 Alcohol Comment Caffeine intak e: drinks decaf [facility] Start: 1950 Sex Assigned At Not on file [facility] History of Present illness Narrative 08-25-2023 Catracho Sheriff MD - 08/25/2023 10:30 AM EST Note Date & Type Note Facility 08-25-2023 History of Presen t illness Narrative Patient ID: Joe Ewing is a 73 y.o. female who presents for: Subjective Joe Ewing is a 73 y.o. female who presents for evaluation of a possible skin infection located left lower leg which she states started with redness and heat last week. Symptoms include swelling, redness, warm to touch. Patient denies fever, chilss, wound seepage. Precipitating event: none known. Treatment to date has included antibiotics started a few days ago with minimal relief. Review of Systems Constitutional: Negative for chills and fever. Respiratory: Negative for cough, shortness of breath and wheezing. Cardiovascular: Negative for chest pain and palpitations. Gastrointestinal: Negative for abdominal pain. Genitourinary: Negative for frequency and urgency. Objective The patient is pleasant and in no acute distress The head is normocephalic and atraumatic Although no formal testing is done, patient does appear to have a gross neurologic deficit concerning memory and goal directed thinking during the interview. The patient has good eye contact and clear speech. Bilateral legs are edematous. The left is greater than right. 1+ approaching 2+ in the left leg and 1+ in the right leg. There is more of a violaceous hue than a true redness. There is no significant increasing calor. No open lesions. Adequate capillary refill. [facility] Result Encounter on 08/11/2023 Component Date Value Ref Range Status SODIUM 08/11/2023 136 136 - 145 mmol/L Final OSMOLALITY 08/11/2023 275 (A) 280 - 301 mOsmol/kg Final Comment: Performed at: [facility] [id number] Subacute Nurse: Arleen Wong MD, Phone: [phone] OSMOLALITY, URINE 08/11/2023 552 . mOsmol/kg Final Comment: 24 hr : 300 - 900 Random: 50 - 1400 After 12hr fluid restriction: >850 Performed at: - [facility] [id number] Subacute Nurse: Arleen Wong MD, Phone: [phone] [facility] Result Encounter on 08/04/2023 Component Date Value Ref Range Status [facility] WBC 08/04/2023 6.9 4.0 - 11.0 10 3/uL Final [facility] RBC 08/04/2023 4.59 4.20 - 5.40 10 6/uL Final [facility] HGB 08/04/2023 15.0 12.0 - 16.0 g/dL Final [facility] HCT 08/04/2023 44.8 36.0 - 48.0 % Final [facility] MCV 08/04/2023 97.6 81.0 - 99.0 fL Final [facility] MCH 08/04/2023 32.7 26.7 - 34.0 pg Final [facility] MCHC 08/04/2023 33.5 29.9 - 35.2 g/dL Final [facility] RDW 08/04/2023 13.0 11.0 - 15.0 % Final [facility] PLT 08/04/2023 155 150 - 450 10 3/uL Final [facility] MPV 08/04/2023 12.4 9.5 - 13.5 fL Final NEUTROPHILS PERCENT AUTO 08/04/2023 46.2 43.0 - 75.0 % Final LYMPHOCYTES PERCENT AUTO 08/04/2023 41.0 20.5 - 60.0 % Final MONOCYTES PERCENT AUTO 08/04/2023 9.8 1.7 - 12.0 % Final [facility] EO % 08/04/2023 1.7 0.9 - 7.0 % Final BASOPHILS PERCENT AUTO 08/04/2023 1.2 0.2 - 2.0 % Final IMMATURE GRANULOCYTES PCT AUTO 08/04/2023 0.1 0.0 - 0.5 % Final NEUTROPHILS ABSOLUTE AUTO 08/04/2023 3.2 1.4 - 6.5 10 3/uL Final LYMPHOCYTES ABSOLUTE AUTO 08/04/2023 2.8 1.2 - 3.8 10 3/uL Final MONOCYTES ABSOLUTE AUTO 08/04/2023 0.7 0.3 - 0.8 10 3/uL Final TBH EO # 08/04/2023 0.1 0.0 - 0.7 10 3/uL Final BASOPHILS ABSOLUTE AUTO 08/04/2023 0.1 0.0 - 0.1 10 3/uL Final IMMATURE GRANULOCYTES ABS AUTO 08/04/2023 0.01 0.00 - 0.03 10 3/uL Final FREE T4 08/04/2023 1.71 (H) 0.76 - 1.46 ng/dL Final SODIUM 08/04/2023 127 (L) 136 - 145 mmol/L Final POTASSIUM 08/04/2023 4.0 3.5 - 5.1 mmol/L Final CHLORIDE 08/04/2023 95 (L) 98 - 107 mmol/L Final CARBON DIOXIDE 08/04/2023 26.9 21.0 - 32.0 mmol/L Final ANION GAP 08/04/2023 9.1 Final GLUCOSE 08/04/2023 130 (H) 74 - 106 mg/dL Final BLOOD UREA NITROGEN 08/04/2023 9.0 7.0 - 18.0 mg/dL Final CREATININE 08/04/2023 0.73 0.55 - 1.02 mg/dL Final TBH EGFR-AF LEBANESE 08/04/2023 >60 >=60 Final TBH EGFR-NON AF LEBANESE 08/04/2023 >60 >=60 Final BUN CREATININE RATIO 08/04/2023 12.3 Final CALCIUM 08/04/2023 8.9 8.5 - 10.1 mg/dL Final BILIRUBIN TOTAL 08/04/2023 0.4 0.2 - 1.0 mg/dL Final ASPARTATE AMINO TRANSFERASE 08/04/2023 28 15 - 37 U/L Final ALANINE AMINOTRANSFERASE 08/04/2023 30 14 - 59 U/L Final ALKALINE PHOSPHATASE 08/04/2023 82 46 - 116 U/L Final TOTAL PROTEIN 08/04/2023 7.2 6.4 - 8.2 g/dL Final ALBUMIN LEVEL 08/04/2023 3.4 3.4 - 5.0 g/dL Final GLOBULIN 08/04/2023 3.8 g/dL Final ALBUMIN GLOBULIN RATIO 08/04/2023 0.9 Final TRIGLYCERIDES 08/04/2023 53 <=150 mg/dL Final CHOLESTEROL 08/04/2023 210 (H) <=200 mg/dL Final HDL CHOLESTEROL 08/04/2023 84 (H) 40 - 60 mg/dL Final Comment: > or =60 mg/dl - LOW CARDIOVASCULAR RISK <40 mg/dl - HIGH CARDIOVASCULAR RISK LDL CHOLESTEROL CALCULATED 08/04/2023 116.0 mg/dL Final Comment: <100 mg/dl OPTIMAL 100-129 mg/dl NEAR OR ABOVE OPTIMAL 130-159 mg/dl BORDERLINE HIGH 160-189 mg/dl HIGH >190 mg/dl VERY HIGH VLDL CHOLESTEROL 08/04/2023 10.6 mg/dL Final CHOL HDL RATIO 08/04/2023 2.5 Final Comment: 3.3 - 4.4 LOW RISK 4.4 - 7.1 AVERAGE RISK 7.1 - 11.0 MODERATE RISK >11.0 HIGH RISK FREE T3 08/04/2023 1.19 (L) 2.18 - 3.98 pg/mL Final THYROID STIMULATING HORMONE 08/04/2023 4.947 (H) 0.358 - 3.740 uIU/mL Final Office Visit on 07/23/2023 Component Date Value Ref Range Status AMPHETAMINES 07/23/2023 Negative Final BARBITURATES OB 07/23/2023 Negative Final BUPRENORPHINE OB 07/23/2023 Negative Final BENZODIAZEPINES OB 07/23/2023 Negative Final COCAINE OB 07/23/2023 Negative Final METHAMPHETAMINE OB 07/23/2023 Negative Final ECSTACY OB 07/23/2023 Negative Final METHADONE OB 07/23/2023 Negative Final OPIATES OB 07/23/2023 Negative Final OXYCODONE OB 07/23/2023 Negative Final PHENCYCLIDINE OB 07/23/2023 Negative Final TRICYCLIC ANTIDEPRESSANTS OB 07/23/2023 Positive Corrected Visit Vitals Ht 5' 4 Wt 146 lb BMI 25.06 kg/m OB Status Postmenopausal Smoking Status Former BSA 1.73 m Allergies Allergen Reactions Buspirone Other Reaction(s): angry Cephalexin Other Reaction(s): papular rash to body Codeine Other Reaction(s): nightmares Moxifloxacin Other Reaction(s): burning, skin swelling, turn red Remeron [Mirtazapine] Hallucinations Trazodone Other Reaction(s): iritable Varenicline Other Reaction(s): agitation Penicillins Rash Current Outpatient Medications Medication Instructions albuterol HFA (Ventolin HFA) 90 mcg/act inhaler 2 puffs, Inhalation, Every 6 hours PRN, 2 puffs as needed Inhalation four times daily as needed for 90 days baclofen (Lioresal) 20 MG tablet Take one half tablet in the morning, One half tablet at lunch, and 2 tablets in the evening busPIRone (Buspar) 15 MG tablet Take 1 tablet at breakfast and 1 tablet lunch, and 2 tablets at bedtime. calcium citrate 250 mg, Oral, 2 times daily cholecalciferol (VITAMIN D-3) 3,000 Units, Oral, Daily, Summer Dose cholecalciferol (VITAMIN D-3) 5,000 Units, Oral, Daily, Winter dose doxycycline (VIBRA-TABS) 100 mg, Oral, 2 times daily, Take with a full glass of water and do not lie down for at least 30 minutes after. DULoxetine (CYMBALTA) 40 mg, Oral, Daily Flovent HFA 220 MCG/ACT inhaler 1 puff, Inhalation, 2 times daily RT gabapentin (NEURONTIN) 100 mg, Oral, 3 times daily ipratropium-albuterol (Duo-Neb) 0.5-2.5 mg/3 mL nebulizer solution 3 mL, Nebulization, 4 times daily RT levothyroxine (Synthroid) 150 MCG tablet Take 1 tablet daily melatonin 3 mg, Oral, Nightly, 2 tablet Orally at bedtime nabumetone (RELAFEN) 1,500 mg, Oral, Daily spironolactone (ALDACTONE) 25 mg, Oral, Daily STRONTIUM CITRATE 1 tablet, Oral, Daily traMADol (ULTRAM) 100 mg, Oral, 4 times daily zinc gluconate 50 mg, Oral, See admin instructions, /2 tablet= 25mg Orally Once a day for 30 day(s) Assessment/Plan Diagnoses and all orders for this visit: Chronic pain syndrome - gabapentin (Neurontin) 100 MG capsule; Take 1 capsule (100 mg) by mouth in the morning and 1 capsule (100 mg) in the evening and 1 capsule (100 mg) before bedtime. - Handicap Placard Lifetime Chronic problem, stable, multifactorial, with complex decision making. The patient presents for reevaluation of their chronic pain syndrome and treatment recommendations. They note, that the pain is still present but under reasonable control with home therapies and medications. They state that they are taking their medications compliantly and perceiving a benefit specifically from these medications. They deny any significant side effects from the medications themselves. The treatment program enables them to continue their activities of daily living. The OARRS and NARX scores were reviewed and seem to be consistent with their prescribing pattern. The Current Opioid Misuse Measure (COMM) is reviewed and there is no evidence of aberrant behavior or abuse. Continuation of the patient's current treatment plan appears to be medically appropriate, providing a degree of relief of the patient's symptoms . Follow-up longitudinally. In prescribing a renewal to their current medication, consideration of the following encompasses moderate decision making; the current prescriptions and supplements, the current allergies and medication intolerances, current medical conditions, and potential drug interactions. Drug interaction screening is reviewed and there are moderate to major severity ratings to consider during prescription drug management. If the adjusted medication is considered a controlled substance, then the OARRS and NARX scores are obtained and reviewed. Any changes to risks, benefits, and reason for renewing their current medication due to the above were discussed. The patient was given a chance to ask questions today and all questions were answered. The patient is to contact us, preferably by using the patient portal, or call if any other questions arise or if any problems occur with the renewal of their medication. (Utilizing the original 1994/1996 guidelines or the 2020 new office/outpatient code guidelines for selecting the level of E/M service, In both sets of guidelines, prescription drug management appears in the moderate medical decision making (MDM) row. Neither the original guidelines nor the new guidelines state that a new prescription or change is needed in order to credit prescription drug management) Chronic respiratory failure with hypoxia ([facility]) - Handicap Placard Lifetime Chronic problem that is currently stable. This problem is medically not going to have any significant improvement. Along with her chronic pain the venous insufficiency and this I do suspect that she will need a handicap placard for lifetime. Dependence on supplemental oxygen Wearing mostly when she is laying down. Stasis dermatitis of both legs Chronic problem that is unstable and worsening. I do not believe she has an actual cellulitis here. There are also no ulcers. After discussion we have mutually agreed that she is going to get into her chair and elevate her legs. I've asked her during those times of elevation that she move her feet so that we get contraction of the calf muscle. Stressed the importance of this to help avoid blood clots. She is to moisturize twice daily with a white unscented moisturizer. I do not think she specifically needs steroids at this point. Continue with her diuretic. She may also have a component of pulmonary hypertension associated with this. I did review the signs and symptoms of worsening with her not just the edema, but worsening of the color changes in her leg and/or ulcer. She is either to contact the office back or potentially consider going to the emergency room. documented in this encounter [facility] Evaluation note Note Date & Type Note Facility Evaluation note Diagnosis Chronic pain syndrome- Primary Chronic respiratory failure with hypoxia (CMS/HCC) Dependence on supplemental oxygen Stasis dermatitis of both legs Arthritis of both knees documented in this encounter [facility] Summary Purpose Family History No Family History Records FoundNo Family History Records Found Advance Directives No Advanced Directives Records FoundNo Advanced Directives Records Found Additional Source Comments INFORMATION SOURCE (unrecogn ized section and content) DATE CREATED AUTHOR 08/29/2022 [facility] DATE CREATED AUTHOR AUTHOR'S ORGANIZ ATION 11/04/2023 [facility] Reason for Visit (unrecogniz ed section and content) Reason Comments Recurrent Skin Infections Care Teams (unrecognized sec tion and content) Perioperative Assistant Relationship Specialty Start Date End Date Catracho Sheriff MD [address] [facility] [place] [address] PCP - [employer] 07/27/22 Catracho Sheriff MD [address] [place] [id number] PCP - General Family Medicine 01/05/23 FOR RECORDS PERTAINING TO PATIENTS WHO ARE [...] BE BASED ON THE PRIMARY CLINICAL RECORDS. [employer] [facility]. provides no warranty or guarantee of the accuracy or completeness of information in this document.
[2023-11-17 04:02] LABS: Anion Gap 13.5; BUN Creatinine Ratio 33.3; Calcium 8.3 mg/dL (8.5-10.1); Carbon Dioxide 25.8 mmol/L (21.0-32.0); Chloride 100 mmol/L (98-107); Estimated GFR (African America >60 (>=60); Estimated GFR (Non-African Ame >60 (>=60); Glucose 127 mg/dL (74-106); Potassium 4.3 mmol/L (3.5-5.1); Sodium 135 mmol/L (136-145)
[2023-11-17 04:08] LABS: Occult Blood Positive
[2023-11-17] MEDS: 0.9 % SODIUM CHLORIDE 500 ML IV (04:25)
[2023-11-17] MEDS: MORPHINE SULFATE 4 MG/ML VIAL 2 MG IV (04:28)
[2023-11-17] MEDS: PANTOPRAZOLE SODIUM 40 MG VIAL IV (05:40)
[2023-11-17] MEDS: MORPHINE SULFATE 4 MG/ML VIAL IV (06:17)
== END 2023-11-17 09:40 | disposition short-term general hospital (02) ==
PROVIDERS: Emergency Provider Emergency Medicine; PCP Family Medicine
DX: K92.2 Gastrointestinal hemorrhage, unspecified (principal); D64.9 Anemia, unspecified; Z79.899 Other long term (current) drug therapy; Z91.81 History of falling
CPT/HCPCS: 36415; 36430; 70450; 72125; 80048; 85025; 86850; 86900; 86901; 93005; 96374; 96375; 96376; 99285; G0328; P9016; P9038

== ENCOUNTER 2023-11-24 21:18 | Emergency (ER) | payer MEDICARE, SELFPAY ==
[2023-11-24] VITALS (24 sets, daily range): BP systolic 69–93; BP diastolic 29–47; PULSE 80–102; TEMP 36.1–36.6; O2SAT 87–100
--- NOTE | 2023-11-24 21:22 | ECG_ITS ---
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
--- OUTSIDE RECORDS SUMMARY | 2023-11-24 21:25 | XMS_ITS | CCD ---
Author Organization [facility] Care Team Providers Care 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 Name Role Phone JAZIEL, DR RAMIREZ Primary Care Unavailable JAZIEL, DR RAMIREZ Admitting Unavailable JAZIEL, DR RAMIREZ Attending Unavailable JAZIEL, DR RAMIREZ Consulting Unavailable JAZIEL, DR RAMIREZ Admitting Unavailable JAZIEL, DR RAMIREZ Attending Unavailable JAZIEL, DR RAMIREZ Consulting Unavailable JAZIEL, DR RAMIREZ Primary Care Unavailable Catracho Sheriff MD Unavailable Catracho Sheriff MD Primary Care Provider CATRACHO SHERIFF Attending Unavailable CATRACHO SHERIFF Attending Unavailable CATRACHO SHERIFF Attending Unavailable CATRACHO SHERIFF Attending Unavailable CATRACHO SHERIFF Attending Unavailable MD Catracho Sheriff Primary Care Provider DO Frantz Nieves Admit Provider [phone] MD Jaspal Whalen Attending Provider MD Seun Freitas Other Provider Frantz Nieves Admitting Unavailable Jaspal Whalen Attending Unavailable Catracho Sheriff Primary Care Unavailable Seun Freitas Consulting Unavailable Allergies Allergy Classification Reported Allergen(s) Allergy Type Date of Onset Reaction(s) Facility (1 source) Cephalexin Drug Allergy 4 [facility] (1 source) Iron Drug Allergy 5 [facility] (1 source) moxifloxacin Drug Allergy 3 [facility] (1 source) Penicillins Drug allergy (disorder) 3 [facility] (1 source) Sulfonamides (Antibiotic) Drug allergy (disorder) 3 [facility] (1 source) varenicline Drug Allergy 4 [facility] (1 source) busPIRone Drug Allergy 3 [facility] (1 source) Cephalexin Drug Allergy 3 [facility] (2 sources) Codeine Drug Allergy 3 Nightmare [facility] (1 source) Mirtazapine Drug Allergy 3 Hallucinations [facility] (2 sources) moxifloxacin Drug Allergy 3 Itching [facility] (1 source) Penicillins Drug Allergy 3 Rash [facility] (1 source) traZODone Drug Allergy 3 [facility] (1 source) varenicline Drug Allergy 3 [facility] (1 source) Meperidine Drug Allergy 4 [facility] Medications Current Medications Medication Drug Class(es) Dates Sig (Normalized) Sig (Original) [id number] 200 actuat albuterol 0.09 mg/actuat metered dose inhaler (1 source) beta2-Adrenergic Agonist take 2 puff(s) by inhalation every six hours as needed, then take 2 puff(s) by inhalation four times daily as needed albuterol HFA (Ventolin HFA) 90 mcg/act inhaler Inhale 2 puffs every 6 (six) hours if needed. 2 puffs as needed Inhalation four times daily as needed for 90 days 0 Active albuterol 0.833 mg/ml / ipratropium bromide 0.167 mg/ml inhalation solution (2 sources) Anticholinergic, beta2-Adrenergic Agonist Start: 11-17-2023 take 1 mL by inhalation three times daily Ipratropium-Albut nasir Active 3 ML INHALATION Three times daily November 17, 2023 12:00am ipratropium-albu terol (Duo-Neb) 0.5-2.5 mg/3 mL nebulizer solution Take 3 mL by nebulization in the morning and 3 mL at noon and 3 mL in the evening and 3 mL before bedtime. 0 Active baclofen 20 mg oral tablet (2 sources) gamma-Aminobutyric Acid-ergic Agonist Start: 11-17-2023 take 10 mg by mouth at breakfast Baclofen Active 10 MG PO With breakfast and lunch November 17, 2023 12:00am Start: 07-30-2023 baclofen (Ten esal) 20 MG tablet Indications: Chronic pain syndrome Take one half tablet in the morning, One half tablet at lunch, and 2 tablets in the evening 270 tablet 0 07/30/2023 Active busPIRone hydrochloride 15 mg oral tablet (2 sources) Start: 11-17-2023 take 1 tablet by mouth three times daily at bedtime, then take 1 tablet by mouth at lunch, then take 2 tablets by mouth at bedtime Buspirone Active 15 MG PO Three times daily November 17, 2023 12:00am take 1 tab at bedtime 1 tab at lunch and 2 tabs at bedtime Start: 04-29-2023 busPIRone (Bus par) 15 MG tablet Indications: Generalized anxiety disorder [...] 1 tablet by mouth in the mo rning cholecalciferol (Vitamin D-3) 125 MCG (5000 UT) [...] DULoxetine 20 mg delayed release oral capsule (2 sources) Serotonin and Norepinephrine Reuptake Inhibitor Start: 11-17-2023 take 40 mg by mouth once daily in the morning Duloxetine Active 40 MG PO Every morning November 17, 2023 12:00am Start: 08-21-2023 End: 11-19-2023 take 2 capsules [...] 12/02/2022 Active gabapentin 100 mg oral capsule (3 sources) Anti-epileptic Agent Start: 05-28-2023 End: 02-21-2024 take 100 mg by mouth three times daily at bedtime Gabapentin Active 100 MG PO Three times daily November 17, 2023 12:00am morning, evening and bedtime levothyroxine sodium 0.15 mg oral tablet (2 sources) l-Thyroxine Start: 11-17-2023 take 150 ug by mouth once daily in the morning Levothyroxine Active 150 MCG PO Every morning November 17, 2023 12:00am Start: 08-21-2023 levothyroxine (Synthroid) 150 MCG tablet Indications: Acquired hypothyroidism (CMS/HCC) Take 1 tablet daily 90 tablet 1 08/21/2023 Active melatonin 3 mg oral tablet (1 source) take 2 tablets by mouth at bedtime melatonin 3 MG tablet Take 3 mg by mouth at bedtime. 2 tablet Orally at bedtime 0 Active pantoprazole 40 mg delayed release oral tablet (1 source) Proton Pump Inhibitor Start: 11-21-19 take 1 tablet by mouth twice daily, then take 1 tablet by mouth once daily Pantoprazole (Protonix) 40 mg tablet,delayed release (DR/EC) Active 40 MG PO Twice daily 180 90 November 21, 2023 12:00am 40 mg po bid x 4 weeks then 40 mg po daily; pls dispense accordingly polysaccharide iron complex 150 mg oral capsule (1 source) Start: 04-27-20 24 Polysaccharide Iron Complex Active 150 MG PO Every 48 hours 60 November 21, 2023 12:00am spironolactone 25 mg oral tablet (2 sources) Aldosterone Antagonist Start: 08-21-19 End: 02-17-20 take 25 mg by mouth once daily in the morning Spironolactone Active 25 MG PO Every morning November 17, 2023 12:00am STRONTIUM CITRATE (1 source) take 1 tablet by mouth in the morning STRONTIUM CITRATE Take 1 tablet by mouth in the morning. 0 Active traMADol hydrochloride 50 mg oral tablet (2 sources) Opioid Agonist Start: 11-17-19 take 100 mg by mouth four times daily Tramadol Active 100 MG PO Four times daily November 17, 2023 12:00am Start: 07-23-2023 End: 10-21-2023 traMADol (Ultram) 50 MG tabl et Indications: Chronic pain syndrome Take 2 tablets [...] a day for 30 day(s) 0 Active Completed/Discontinued Medications Medication Drug Class(es) Dates Sig (Normalized) Sig (Original) nabumetone 750 mg oral tablet (2 sources) Nonsteroidal Anti-inflammatory Drug Start: 11-17-2023 End: 11-21-2023 take 1500 mg by mouth once daily in the morning Nabumetone Discontinued 1500 MG PO Every morning November 17, 2023 12:00am November 21, 2023 11:28am Start: 04-29-2023 End: 10-26-2023 take 2 tablets by mouth in the morning nabumetone (Relafen) 750 MG tablet Indications: Chronic pain syndrome Take 2 tablets (1,500 mg) by mouth in the morning. 180 tablet 1 04/29/2023 10/26/2023 Active Problems Active Problems Problem Classification Problem Date Documented Da te Episodic/Chronic Anxiety disorders (1 source) Generalized anxiety disorder; Translations: [Generalized anxiety disorder] Onset: 3 08-13-2023 Chronic Chronic obstructive pulmonary disease and bronchiectasis (3 sources) Mucopurulent chronic bronchitis; Translations: [Mucopurulent chronic bronchitis] Onset: 6 Resolved: 4 01-06-2023 Chronic Complications of surgical procedures or medical care (2 sources) Postprocedural hypothyroidism; Translations: [Postoperative hypothyroidism] Onset: 3 01-06-2023 Chronic Deficiency and other anemia (1 source) Anemia; Translations: [Anemia, unspecified] 11-17-2023 Episodic Deficiency and other anemia (2 sources) Anemia, unspecified; Translations: [Anemia, unspecified] Onset: 4 11-21-2023 Episodic Esophageal disorders (1 source) Gastroesophageal reflux disease; Translations: [Gastro-esophageal reflux disease without esophagitis] Onset: 3 01-06-2023 Chronic Gastroduodenal ulcer (except hemorrhage) (3 sources) Ulcer of duodenum; Translations: [Duodenal ulcer, unspecified as acute or chronic, without hemorrhage or perforation] Onset: 4 11-19-2023 Chronic Gastrointestinal hemorrhage (3 sources) Gastrointestinal hemorrhage; Translations: [Gastrointestinal hemorrhage, unspecified] Onset: 4 11-17-2023 Episodic Malaise and fatigue (5 sources) Chronic fatigue, unspecified; Translations: [Fatigue] Onset: 3 Chronic Malaise and fatigue (3 sources) Asthenia; Translations: [Weakness] Onset: 4 11-17-2023 Episodic Osteoarthritis (4 sources) Bilateral arthritis of knees; Translations: [Bilateral primary osteoarthritis of knee] Onset: 3 09-04-2023 Chronic Osteoporosis (1 source) Osteoporosis; Translations: [Age-related osteoporosis without current pathological fracture] Onset: 3 01-06-2023 Chronic Other diseases of veins and lymphatics (2 sources) Stasis dermatitis; Translations: [Venous insufficiency (chronic) (peripheral)] Onset: 3 09-04-2023 Episodic Other hematologic conditions (1 source) Macrocytosis; Translations: [Other specified diseases of blood and blood-forming organs] 11-17-2023 Chronic Other hematologic conditions (2 sources) Other specified diseases of blood and blood-forming organs; Translations: [Other specified diseases of blood and blood-forming organs] Onset: 4 11-21-2023 Chronic Other nervous system disorders (2 sources) Chronic pain syndrome; Translations: [Chronic pain syndrome] Onset: 3 09-04-2023 Chronic Other nutritional; endocrine; and metabolic disorders (1 source) Unintentional weight loss; Translations: [Abnormal weight loss] 11-17-2023 Episodic Other nutritional; endocrine; and metabolic disorders (2 sources) Abnormal weight loss; Translations: [Loss of weight] Onset: 4 11-21-2023 Episodic Other skin disorders (1 source) Night sweats; Translations: [Generalized hyperhidrosis] 11-17-2023 Episodic Residual codes; unclassified (1 source) Sleep dysfunction with arousal disturbance; Translations: [Other sleep disorders] Onset: 3 01-06-2023 Chronic Residual codes; unclassified (1 source) Tobacco user; Translations: [Tobacco use] 11-17-2023 Episodic Residual codes; unclassified (2 sources) Tobacco use; Translations: [Tobacco use disorder] Onset: 4 11-21-2023 Episodic Respiratory failure; insufficiency; arrest (adult) (6 sources) Chronic hypoxemic respiratory failure; Translations: [Chronic respiratory failure with hypoxia] Onset: 3 Resolved: 4 09-04-2023 Chronic Screening and history of mental health and substance abuse codes (1 source) Ex-smoker; Translations: [Personal history of nicotine dependence] Onset: 3 07-23-2023 Episodic Spondylosis; intervertebral disc disorders; other back problems (3 sources) Lumbar post-laminectomy syndrome; Translations: [Postlaminectomy syndrome, not elsewhere classified] Onset: 3 Resolved: 4 01-06-2023 Chronic Substance-related disorders (3 sources) Finding relating to drug misuse behavior; Translations: [Other psychoactive substance use, unspecified, uncomplicated] Onset: 4 11-18-2023 Episodic Past or Other Problems Problem Classification Problem [...] aftercare (1 source) Polypharmacy ; Translations: [Other shelter (current) drug therapy] Onset: 09-07-2020 01-28-2023 Episodic Other aftercare (1 source) Taking high risk medication; Translations: [Other vermin exterminator (current) drug therapy] Onset: 09-07-2020 Resolved: 07-31-2023 [...] Results Test Name Value Interpretation Reference Range Facility Erythrocyte distribution wid th Auto (RBC) [Ratio]Ordered By: Frantz Nieves on 11-21-2023 Erythrocyte distribution width (RBC) [Ratio] 16.3 % 11.9-15.3 [facility] Ferritinon 11-21-2023 Ferritin [Mass/Vol] 40.6 ng/mL Normal 11.0-306.8 [facility] Comment on above: Result Comment: PERF ORMED BY: [place] [address] PATHOLOGIST LEAD CARGOMAN EVY GARCIA M.D. Performed By: #### H H #### [address] Ferritin [Mass/volume] in Se rum or PlasmaOrdered By: Jaspal Whalen on 11-21-2023 Ferritin [Mass/Vol] 40.6 ng/mL 11.0-306.8 [facility] Hematocrit Auto (Bld) [Volum e fraction]Ordered By: Frantz Nieves on 11-21-2023 Hematocrit (Bld) [Volume fraction] 27.4 % 34.0-46.4 [facility] Hemoglobin [Mass/volume] in BloodOrdered By: Frantz Nieves on 11-21-2023 Hemoglobin (Bld) [Mass/Vol] 9.2 g/dL 11.8-15.4 [facility] Hemogram CBC Without Diffon 11-21-2023 Erythrocyte distribution width (RBC) [Ratio] 16.3 % High 11.9-15.3 [facility] Comment on above: Performed By: #### H H #### [address] Hematocrit (Bld) [Volume fraction] 27.4 % Low 34.0-46.4 [facility] Comment on above: Performed By: #### H H #### [address] Hemoglobin (Bld) [Mass/Vol] 9.2 g/dL Low 11.8-15.4 [facility] Comment on above: Performed By: #### H H #### [address] MCH (RBC) [Entitic mass] 31.3 pg Normal 24.7-34.3 [facility] Comment on above: Performed By: #### H H #### [address] MCV (RBC) [Entitic vol] 93.2 fL Normal 80-100 [facility] Comment on above: Performed By: #### H H #### [address] Mean Corpuscular HGB Conc 33.6 g/dL Normal 32.0-35.0 [facility] Comment on above: Performed By: #### H H #### [address] Platelet mean volume (Bld) [Entitic vol] 7.7 fL Normal 6.3-10.7 [facility] Comment on above: Result Comment: PERF ORMED BY: [place] [address] PATHOLOGIST LEAD CARGOMAN EVY GARCIA M.D. Performed By: #### H H #### [address] Platelets (Bld) [#/Vol] 377 10*3/uL Normal 150-450 [facility] Comment on above: Performed By: #### H H #### [address] RBC (Bld) [#/Vol] 2.94 10*6/uL Low 3.60-5.00 [facility] Comment on above: Performed By: #### H H #### [address] WBC (Bld) [#/Vol] 8.8 10*3/uL Normal 3.8-11.6 [facility] Comment on above: Performed By: #### H H #### [address] Iron [Mass/volume] in Serum or PlasmaOrdered By: Jaspal Whalen on 11-21-2023 Iron [Mass/Vol] 20 ug/dL 50-212 [facility] Iron and TIBC Profileon 10-26 % Iron Saturation 6.0 % Low 20-50 [facility] Comment on above: Performed By: #### H H #### [address] Iron [Mass/Vol] 20 ug/dL Low 50-212 [facility] Comment on above: Performed By: #### H H #### [address] Total Iron Binding Capacity 333 ug/dL Normal 255-450 [facility] Comment on above: Performed By: #### H H #### [address] Transferrin [Mass/Vol] 238 mg/dL Normal 203-362 [facility] Comment on above: Performed By: #### H H #### [address] Iron binding capacity [Mass/ volume] in Serum or PlasmaOrdered By: Jaspal Whalen on 11-21-2023 Iron binding capacity [Mass/Vol] 333 ug/dL 255-450 [facility] Iron saturation [Mass Fracti on] in Serum or PlasmaOrdered By: Jaspal Whalen on 11-21-2023 Iron saturation [Mass fraction] 6.0 % 20-50 [facility] Leukocytes [#/volume] correc dalton for nucleated erythrocytes in Blood by Automated counOrdered By: Frantz Nieves on 11-21-2023 WBC corrected for nucl RBC Auto (Bld) [#/Vol] 8.8 10*3/uL 3.8-11.6 [facility] MCH Auto (RBC) [Entitic mass ]Ordered By: Frantz Nieves on 11-21-2023 MCH (RBC) [Entitic mass] 31.3 pg 24.7-34.3 [facility] MCHC Auto (RBC) [Mass/Vol]Or dered By: Frantz Nieves on 11-21-2023 MCHC (RBC) [Mass/Vol] 33.6 g/dL 32.0-35.0 [facility] MCV Auto (RBC) [Entitic vol] Ordered By: Frantz Nieves on 11-21-2023 MCV (RBC) [Entitic vol] 93.2 fL 80-100 [facility] Platelet mean volume Auto (B ld) [Entitic vol]Ordered By: Frantz Nieves on 11-21-2023 Platelet mean volume (Bld) [Entitic vol] 7.7 fL 6.3-10.7 [facility] Platelets Auto (Bld) [#/Vol] Ordered By: Frantz Nieves on 11-21-2023 Platelets (Bld) [#/Vol] 377 10*3/uL 150-450 [facility] RBC Auto (Bld) [#/Vol]Ordere d By: Frantz Nieves on 11-21-2023 RBC (Bld) [#/Vol] 2.94 10*6/uL 3.60-5.00 [facility] Transferrin [Mass/volume] in Serum or PlasmaOrdered By: Jaspal Whalen on 11-21-2023 Transferrin [Mass/Vol] 238 mg/dL 203-362 Fi [facility] Hemoglobin and Hematocriton 11-20-2023 Hematocrit (Bld) [Volume fraction] 24.7 % Low 34.0-46.4 [facility] Comment on above: Result Comment: PERF ORMED BY: [place] [address] PATHOLOGIST LEAD CARGOMAN EVY GARCIA M.D. Performed By: #### H H #### [address] Hemoglobin (Bld) [Mass/Vol] 8.4 g/dL Low 11.8-15.4 [facility] Comment on above: Performed By: #### H H #### [address] Hemogram CBC Without Diffon 11-20-2023 Erythrocyte distribution width (RBC) [Ratio] 16.5 % High 11.9-15.3 [facility] Comment on above: Performed By: #### H H #### [address] Hematocrit (Bld) [Volume fraction] 23.7 % Low 34.0-46.4 [facility] Comment on above: Performed By: #### H H #### [address] Hemoglobin (Bld) [Mass/Vol] 8.1 g/dL Low 11.8-15.4 [facility] Comment on above: Performed By: #### H H #### [address] MCH (RBC) [Entitic mass] 31.7 pg Normal 24.7-34.3 [facility] Comment on above: Performed By: #### H H #### [address] MCV (RBC) [Entitic vol] 92.5 fL Normal 80-100 [facility] Comment on above: Performed By: #### H H #### [address] Mean Corpuscular HGB Conc 34.2 g/dL Normal 32.0-35.0 [facility] Comment on above: Performed By: #### H H #### [address] Platelet mean volume (Bld) [Entitic vol] 7.8 fL Normal 6.3-10.7 [facility] Comment on above: Result Comment: PERF ORMED BY: [place] [address] PATHOLOGIST LEAD CARGOMAN EVY GARCIA M.D. Performed By: #### H H #### [address] Platelets (Bld) [#/Vol] 279 10*3/uL Normal 150-450 [facility] Comment on above: Performed By: #### H H #### [address] RBC (Bld) [#/Vol] 2.56 10*6/uL Low 3.60-5.00 [facility] Comment on above: Performed By: #### H H #### [address] WBC (Bld) [#/Vol] 9.2 10*3/uL Normal 3.8-11.6 [facility] Comment on above: Performed By: #### H H #### [address] Magnesiumon 11-20-2023 Magnesium [Mass/Vol] 1.7 mg/dL Low 1.9-2.7 [facility] Comment on above: Result Comment: PERF ORMED BY: [place] [address] PATHOLOGIST LEAD CARGOMAN EVY GARCIA M.D. Performed By: #### H H #### [address] Magnesium [Mass/volume] in S staci or PlasmaOrdered By: Frantz Nieves on 11-20-2023 Magnesium [Mass/Vol] 1.7 mg/dL 1.9-2.7 [facility] Basic Metabolic Panelon 10-26 Anion gap [Moles/Vol] 6.7 mmol/L Normal 6.0-15.0 [facility] Comment on above: Performed By: #### H H #### [address] Calcium [Mass/Vol] 6.6 mg/dL Low 8.6-10.3 [facility] Comment on above: Performed By: #### H H #### [address] Chloride [Moles/Vol] 111 mmol/L High 98-107 [facility] Comment on above: Performed By: #### H H #### [address] CO2 [Moles/Vol] 24.0 mmol/L Normal 21.0-31.0 [facility] Comment on above: Performed By: #### H H #### [address] Creatinine [Mass/Vol] 0.40 mg/dL Low 0.60-1.20 [facility] Comment on above: Performed By: #### H H #### [place] [address] [place] Creatinine Clr Calc Pharmacy 50.26 Normal [facility] Comment on above: Performed By: #### H H #### [place] [address] [place] GFR/1.73 sq M.predicted MDRD (S/P/Bld) [Vol rate/Area] mL/min/{1.73_m2} Normal [facility] Comment on above: Performed By: #### H H #### [address] Glucose [Mass/Vol] 88 mg/dL Normal 70-100 [facility] Comment on above: Result Comment: [place] Glucose Reference Range is dependent on time and content of last meal. Glucose of more than 200 mg/dL in a nonstressed, ambulatory subject supports the diagnosis of Diabetes Mellitus. ADA recommended reference range Performed By: #### H H #### [facility] [address] Potassium [Moles/Vol] 3.7 mmol/L Normal 3.5-5.1 [facility] Comment on above: Performed By: #### H H #### [facility] [address] Sodium [Moles/Vol] 138 mmol/L Normal 136-145 [facility] Comment on above: Performed By: #### H H #### [facility] [address] Urea nitrogen [Mass/Vol] 15 mg/dL Normal 7-25 [facility] Comment on above: Performed By: #### H H #### [facility] [address] Calcium [Mass/volume] in Ser um or PlasmaOrdered By: Frantz Nieves on 11-19-2023 Calcium [Mass/Vol] 6.6 mg/dL 8.6-10.3 [facility] Carbon dioxide, total [Moles /volume] in Serum or PlasmaOrdered By: Frantz Nieves on 11-19-2023 CO2 [Moles/Vol] 24.0 mmol/L 21.0-31.0 [facility] Chloride [Moles/volume] in S staci or PlasmaOrdered By: Frantz Nieves on 11-19-2023 Chloride [Moles/Vol] 111 mmol/L 98-107 [facility] Creatinine [Mass/volume] in Serum or PlasmaOrdered By: Frantz Nieves on 11-19-2023 Creatinine [Mass/Vol] 0.40 mg/dL 0.60-1.20 [facility] Glucose [Mass/volume] in Ser um or PlasmaOrdered By: Frantz Nieves on 11-19-2023 Glucose [Mass/Vol] 88 mg/dL 70-100 [facility] Comment on above: ADA recommended refe rence rangeRandom Glucose Reference Range is dependent on time and content of last meal. Glucose of more than 200 mg/dL in a nonstressed, ambulatory subject supports the diagnosis of Diabetes Mellitus. Hemoglobin and Hematocriton 11-19-2023 Hematocrit (Bld) [Volume fraction] 26.7 % Low 34.0-46.4 [facility] Comment on above: Result Comment: PERF ORMED BY: [place] [address] PATHOLOGIST LEAD CARGOMAN EVY GARCIA M.D. Performed By: #### H H #### [address] Hemoglobin (Bld) [Mass/Vol] 9.1 g/dL Significant change down 11.8-15.4 [facility] Comment on above: Performed By: #### H H #### [address] Hematocrit (Bld) [Volume fraction] 19.0 % Off scale low 34.0-46.4 [facility] Comment on above: Result Comment: Crit ical value result called at 1124 on 11/19/23 PERFORMED BY: [place] [address] PATHOLOGIST LEAD CARGOMAN EVY GARCIA M.D. Performed By: #### H H #### [place] [address] [place] Hemoglobin (Bld) [Mass/Vol] 6.5 g/dL Low 11.8-15.4 [facility] Comment on above: Performed By: #### H H #### [address] Hematocrit (Bld) [Volume fraction] 22.1 % Low 34.0-46.4 [facility] Comment on above: Result Comment: PERF ORMED BY: [place] [address] PATHOLOGIST LEAD CARGOMAN EVY GARCIA M.D. Performed By: #### H H #### [address] Hemoglobin (Bld) [Mass/Vol] 7.5 g/dL Low 11.8-15.4 [facility] Comment on above: Performed By: #### H H #### [address] Hemogram CBC Without Diffon 11-19-2023 Erythrocyte distribution width (RBC) [Ratio] 16.2 % High 11.9-15.3 [facility] Comment on above: Performed By: #### H H #### [address] Hematocrit (Bld) [Volume fraction] 20.5 % Low 34.0-46.4 [facility] Comment on above: Performed By: #### H H #### [address] Hemoglobin (Bld) [Mass/Vol] 7.1 g/dL Low 11.8-15.4 [facility] Comment on above: Performed By: #### H H #### [address] MCH (RBC) [Entitic mass] 31.8 pg Normal 24.7-34.3 [facility] Comment on above: Performed By: #### H H #### [address] MCV (RBC) [Entitic vol] 92.0 fL Normal 80-100 [facility] Comment on above: Performed By: #### H H #### [address] Mean Corpuscular HGB Conc 34.6 g/dL Normal 32.0-35.0 [facility] Comment on above: Performed By: #### H H #### [address] Platelet mean volume (Bld) [Entitic vol] 7.5 fL Normal 6.3-10.7 [facility] Comment on above: Result Comment: PERF ORMED BY: [place] [address] PATHOLOGIST LEAD CARGOMAN EVY GARCIA M.D. Performed By: #### H H #### [address] Platelets (Bld) [#/Vol] 247 10*3/uL Normal 150-450 [facility] Comment on above: Performed By: #### H H #### [address] RBC (Bld) [#/Vol] 2.23 10*6/uL Low 3.60-5.00 [facility] Comment on above: Performed By: #### H H #### [address] WBC (Bld) [#/Vol] 10.1 10*3/uL Normal 3.8-11.6 [facility] Comment on above: Performed By: #### H H #### [address] Magnesiumon 11-19-2023 Magnesium [Mass/Vol] 2.0 mg/dL Normal 1.9-2.7 [facility] Comment on above: Result Comment: PERF ORMED BY: [place] [address] PATHOLOGIST LEAD CARGOMAN EVY GARCIA M.D. Performed By: #### H H #### [address] No Panel InformationOrdered By: Frantz Nieves on 11-19-2023 Estimated GFR (CKD-EPI) > 60.0 mL/Min [facility] Creatinine Clearance (Chem 50.26 [facility] Potassium [Moles/volume] in Serum or PlasmaOrdered By: Frantz Nieves on 11-19-2023 Potassium [Moles/Vol] 3.7 mmol/L 3.5-5.1 [facility] Serum or plasma anion gap de terminationOrdered By: Frantz Nieves on 11-19-2023 Anion gap [Moles/Vol] 6.7 mmol/L 6.0-15.0 [facility] Sodium [Moles/volume] in Ser um or PlasmaOrdered By: Frantz Nieves on 11-19-2023 Sodium [Moles/Vol] 138 mmol/L 136-145 [facility] Urea nitrogen [Mass/volume] in Serum or PlasmaOrdered By: Frantz Nieves on 11-19-2023 Urea nitrogen [Mass/Vol] 15 mg/dL 7-25 [facility] ABO/Rh Retypeon 11-18-2023 ABO/RH Recheck Result Positive Normal [facility] Comment on above: Result Comment: PERF ORMED BY: [facility] [place] [address] PATHOLOGIST LEAD CARGOMAN EVY GARCIA M.D. Alanine aminotransferase [En zymatic activity/volume] in Serum or PlasmaOrdered By: Dale Mckeon on 11-18-2023 ALT [Catalytic activity/Vol] 14 U/L 7-52 [facility] Albumin [Mass/volume] in Ser um or Plasma by Bromocresol green (BCG) dye binding methoOrdered By: Dale Mckeon on 11-18-2023 Albumin BCG dye [Mass/Vol] 2.4 g/dL 3.5-5.7 [facility] Alkaline phosphatase [Enzyma tic activity/volume] in Serum or PlasmaOrdered By: Dale Mckeon on 11-18-2023 ALP [Catalytic activity/Vol] 44 U/L 34-104 [facility] Aspartate aminotransferase [ Enzymatic activity/volume] in Serum or PlasmaOrdered By: Dale Mckeon on 11-18-2023 AST [Catalytic activity/Vol] 17 U/L 13-39 [facility] Basophils Auto (Bld) [#/Vol] Ordered By: Dale Mckeon on 11-18-2023 Basophils (Bld) [#/Vol] N/A [facility] Basophils/100 WBC Auto (Bld) Ordered By: Dale Mckeon on 11-18-2023 Basophils/100 WBC (Bld) N/A [facility] Bilirubin.total [Mass/volume ] in Serum or PlasmaOrdered By: Dale Mckeon on 11-18-2023 Bilirubin [Mass/Vol] 0.3 mg/dL 0.3-1.0 [facility] Comprehensive Metabolic Pane will 11-18-2023 Albumin [Mass/Vol] 2.4 g/dL Low 3.5-5.7 [facility] Comment on above: Performed By: #### M G, TSH3, CMP, DIFF CBC, T4F #### [address] Albumin/Globulin [Mass ratio] 1.6 {ratio} Normal [facility] Comment on above: Performed By: #### M G, TSH3, CMP, DIFF CBC, T4F #### [address] ALP [Catalytic activity/Vol] 44 U/L Normal 34-104 [facility] Comment on above: Performed By: #### M G, TSH3, CMP, DIFF CBC, T4F #### [address] ALT [Catalytic activity/Vol] 14 U/L Normal 7-52 [facility] Comment on above: Performed By: #### M G, TSH3, CMP, DIFF CBC, T4F #### [address] Anion gap [Moles/Vol] 8.8 mmol/L Normal 6.0-15.0 [facility] Comment on above: Performed By: #### M G, TSH3, CMP, DIFF CBC, T4F #### [address] AST [Catalytic activity/Vol] 17 U/L Normal 13-39 [facility] Comment on above: Performed By: #### M G, TSH3, CMP, DIFF CBC, T4F #### [address] Bilirubin [Mass/Vol] 0.3 mg/dL Normal 0.3-1.0 [facility] Comment on above: Performed By: #### M G, TSH3, CMP, DIFF CBC, T4F #### [address] Calcium [Mass/Vol] 7.3 mg/dL Low 8.6-10.3 [facility] Comment on above: Performed By: #### M G, TSH3, CMP, DIFF CBC, T4F #### [address] Chloride [Moles/Vol] 105 mmol/L Normal 98-107 [facility] Comment on above: Performed By: #### M G, TSH3, CMP, DIFF CBC, T4F #### [address] CO2 [Moles/Vol] 28.2 mmol/L Normal 21.0-31.0 [facility] Comment on above: Performed By: #### M G, TSH3, CMP, DIFF CBC, T4F #### [address] Creatinine [Mass/Vol] 0.46 mg/dL Low 0.60-1.20 [facility] Comment on above: Performed By: #### M G, TSH3, CMP, DIFF CBC, T4F #### [address] Creatinine Clr Calc Pharmacy 50.26 Normal [facility] Comment on above: Performed By: #### M G, TSH3, CMP, DIFF CBC, T4F #### [place] [address] [place] GFR/1.73 sq M.predicted MDRD (S/P/Bld) [Vol rate/Area] mL/min/{1.73_m2} Normal [facility] Comment on above: Performed By: #### M G, TSH3, CMP, DIFF CBC, T4F #### [address] Globulin (S) [Mass/Vol] 1.5 g/dL Normal [facility] Comment on above: Performed By: #### M G, TSH3, CMP, DIFF CBC, T4F #### [place] [address] [place] Glucose [Mass/Vol] 93 mg/dL Normal 70-100 [facility] Comment on above: Result Comment: [place] Glucose Reference Range is dependent on time and content of last meal. Glucose of more than 200 mg/dL in a nonstressed, ambulatory subject supports the diagnosis of Diabetes Mellitus. ADA recommended reference range Performed By: #### M G, TSH3, CMP, DIFF CBC, T4F #### [address] Potassium [Moles/Vol] 4.0 mmol/L Normal 3.5-5.1 [facility] Comment on above: Performed By: #### M G, TSH3, CMP, DIFF CBC, T4F #### [address] Protein [Mass/Vol] 3.9 g/dL Low 6.4-8.9 [facility] Comment on above: Performed By: #### M G, TSH3, CMP, DIFF CBC, T4F #### [address] Sodium [Moles/Vol] 138 mmol/L Normal 136-145 [facility] Comment on above: Performed By: #### M G, TSH3, CMP, DIFF CBC, T4F #### [address] Urea nitrogen [Mass/Vol] 24 mg/dL Normal 7-25 [facility] Comment on above: Performed By: #### M G, TSH3, CMP, DIFF CBC, T4F #### [address] Diff and CBCon 11-18-2023 Erythrocyte distribution width (RBC) [Ratio] 17.2 % High 11.9-15.3 [facility] Comment on above: Performed By: #### M G, TSH3, CMP, DIFF CBC, T4F #### [address] Hematocrit (Bld) [Volume fraction] 16.0 % Off scale low 34.0-46.4 [facility] Comment on above: Result Comment: Crit ical value result called at 0759 on 11/18/23 Performed By: #### M G, TSH3, CMP, DIFF CBC, T4F #### [address] Hemoglobin (Bld) [Mass/Vol] 5.6 g/dL Low 11.8-15.4 [facility] Comment on above: Performed By: #### M G, TSH3, CMP, DIFF CBC, T4F #### [address] MCH (RBC) [Entitic mass] 32.8 pg Normal 24.7-34.3 [facility] Comment on above: Performed By: #### M G, TSH3, CMP, DIFF CBC, T4F #### [address] MCV (RBC) [Entitic vol] 93.3 fL Normal 80-100 [facility] Comment on above: Performed By: #### M G, TSH3, CMP, DIFF CBC, T4F #### [address] Mean Corpuscular HGB Conc 35.2 g/dL High 32.0-35.0 [facility] Comment on above: Performed By: #### M G, TSH3, CMP, DIFF CBC, T4F #### [address] Platelet Estimate Normal Normal Normal [facility] Comment on above: Performed By: #### M G, TSH3, CMP, DIFF CBC, T4F #### [address] Platelet mean volume (Bld) [Entitic vol] 7.8 fL Normal 6.3-10.7 [facility] Comment on above: Result Comment: PERF ORMED BY: [place] [address] PATHOLOGIST LEAD CARGOMAN EVY GARCIA M.D. Performed By: #### M G, TSH3, CMP, DIFF CBC, T4F #### [address] Platelet Morphology Normal Normal Normal [facility] Comment on above: Result Comment: PERF ORMED BY: [place] [address] PATHOLOGIST LEAD CARGOMAN EVY GARCIA M.D. Performed By: #### M G, TSH3, CMP, DIFF CBC, T4F #### [facility] [address] Platelets (Bld) [#/Vol] 332 10*3/uL Normal 150-450 [facility] Comment on above: Performed By: #### M G, TSH3, CMP, DIFF CBC, T4F #### [address] RBC (Bld) [#/Vol] 1.72 10*6/uL Low 3.60-5.00 [facility] Comment on above: Performed By: #### M G, TSH3, CMP, DIFF CBC, T4F #### [address] WBC (Bld) [#/Vol] 10.9 10*3/uL Normal 3.8-11.6 [facility] Comment on above: Performed By: #### M G, TSH3, CMP, DIFF CBC, T4F #### [address] Eosinophils Auto (Bld) [#/Vo l]Ordered By: Dale Mckeon on 11-18-2023 Eosinophils (Bld) [#/Vol] N/A [facility] Eosinophils/100 WBC Auto (Bl d)Ordered By: Dale Mckeon on 11-18-2023 Eosinophils/100 WBC (Bld) N/A [facility] Free T4 (Free Thyroxine)on 0 11-18-2023 Free T4 [Mass/Vol] 1.10 ng/dL Normal 0.61-1.12 [facility] Comment on above: Performed By: #### M G, TSH3, CMP, DIFF CBC, T4F #### [address] Globulin Calc (S) [Mass/Vol] Ordered By: Dale Mckeon on 11-18-2023 Globulin (S) [Mass/Vol] 1.5 g/dL [facility] Hemoglobin and Hematocriton 11-18-2023 Hematocrit (Bld) [Volume fraction] 22.2 % Low 34.0-46.4 [facility] Comment on above: Result Comment: PERF ORMED BY: [place] [address] PATHOLOGIST LEAD CARGOMAN EVY GARCIA M.D. Performed By: #### H H #### [facility] [address] [place] [address] Hemoglobin (Bld) [Mass/Vol] 7.7 g/dL Low 11.8-15.4 [facility] Comment on above: Performed By: #### H H #### [address] LeukoReduced RBCon LeukoReduced RBC TRANSFUSED 11/18/23 1440 Normal [facility] Lymphocytes Auto (Bld) [#/Vo l]Ordered By: Dale Mckeon on 11-18-2023 Lymphocytes (Bld) [#/Vol] N/A [facility] Lymphocytes/100 WBC Auto (Bl d)Ordered By: Dale Mckeon on 11-18-2023 Lymphocytes/100 WBC (Bld) N/A [facility] Magnesiumon 11-18-2023 Magnesium [Mass/Vol] 1.6 mg/dL Low 1.9-2.7 [facility] Comment on above: Performed By: #### M G, TSH3, CMP, DIFF CBC, T4F #### [facility] [address] [place] [address] Monocytes Auto (Bld) [#/Vol] Ordered By: Dale Mckeon on 11-18-2023 Monocytes (Bld) [#/Vol] N/A F [facility] Monocytes/100 WBC Auto (Bld) Ordered By: Dale Mckeon on 11-18-2023 Monocytes/100 WBC (Bld) N/A F [facility] Neutrophils Auto (Bld) [#/Vo l]Ordered By: Dale Mckeon on 11-18-2023 Neutrophils (Bld) [#/Vol] N/A [facility] Neutrophils/100 WBC Auto (Bl d)Ordered By: Dale Mckeon on 11-18-2023 Neutrophils/100 WBC (Bld) N/A [facility] Nucleated erythrocytes [Pres ence] in Blood by Automated countOrdered By: Dale Mckeon on 11-18-2023 Nucleated RBC Auto Ql (Bld) N/A [facility] Platelet adequacy [Presence] in Blood by Light microscopyOrdered By: Dale Mckeon on 11-18-2023 Platelets LM Ql (Bld) Normal Normal [facility] Platelet morphology finding [Identifier] in BloodOrdered By: Dale Mckeon on 11-18-2023 Platelet morphology finding Nom (Bld) Normal Normal [facility] Protein [Mass/volume] in Ser um or PlasmaOrdered By: Dale Mckeon on 11-18-2023 Protein [Mass/Vol] 3.9 g/dL 6.4-8.9 [facility] RBC morphologyOrdered By: Cecilio Mckeon on 11-18-2023 RBC morphology finding Nom (Bld) N/A [facility] Serum or plasma albumin/glob ulin mass ratioOrdered By: Dale Mckeon on 11-18-2023 Albumin/Globulin [Mass ratio] 1.6 {ratio} [facility] Thyroid Stimulating Hormoneo n 11-18-2023 TSH Qn 5.61 m[IU]/L High 0.45-5.33 [facility] Comment on above: Result Comment: PERF ORMED BY: [place] [address] PATHOLOGIST LEAD CARGOMAN EVY GARCIA M.D. Performed By: #### M G, TSH3, CMP, DIFF CBC, T4F #### [address] Thyrotropin [Units/volume] i n Serum or PlasmaOrdered By: Frantz Nieves on 11-18-2023 TSH Qn 5.61 m[IU]/L 0.45-5.33 [facility] Thyroxine (T4) free [Mass/vo lume] in Serum or PlasmaOrdered By: Frantz Nieves on 11-18-2023 Free T4 [Mass/Vol] 1.10 ng/dL 0.61-1.12 [facility] Type and Screenon 11-18-2023 ABO and Rh group Nom (Bld) Blood group A Rh(D) positive Normal [facility] Comment on above: Order Comment: Trans fuse now? Y Number of units to transfuse now? 1 Transfuse now? Y Number of units to transfuse now? 1 Transfuse now? Y Number of units to transfuse now? 1 Transfuse now? Y Number of units to transfuse now? 1 WBC Auto (Bld) [#/Vol]Ordere d By: Dale Mckeon on 11-18-2023 WBC (Bld) [#/Vol] 10.9 10*3/uL 3.8-11.6 [facility] Folate [Mass/volume] in Seru m or PlasmaOrdered By: Dale Mckeon on 11-17-2023 Folate [Mass/Vol] 15.0 ng/mL >5.9 [facility] Comment on above: Folate reference ran ge: >5.9 ng/mlThe WHO technical consultation on folate and vitamin [id number] has determined that folate concentrations lessthan 4 ng/ml are considered deficient. Hemoglobin and Hematocriton 11-17-2023 Hematocrit (Bld) [Volume fraction] 20.2 % Low 34.0-46.4 [facility] Comment on above: Result Comment: PERF ORMED BY: [place] [address] PATHOLOGIST LEAD CARGOMAN EVY GARCIA M.D. Performed By: #### H H #### [address] Hemoglobin (Bld) [Mass/Vol] 6.9 g/dL Low 11.8-15.4 [facility] Comment on above: Performed By: #### H H #### [address] Hematocrit (Bld) [Volume fraction] 21.5 % Low 34.0-46.4 [facility] Comment on above: Result Comment: PERF ORMED BY: [place] [address] PATHOLOGIST LEAD CARGOMAN EVY GARCIA M.D. Performed By: #### H H #### [address] [place] [address] [place] Hemoglobin (Bld) [Mass/Vol] 7.3 g/dL Low 11.8-15.4 [facility] Comment on above: Performed By: #### H H #### [address] Vit. B12/Folate Profileon Cobalamin (Vitamin B12) [Mass/Vol] 816 pg/mL Normal 180-914 [facility] Comment on above: Performed By: #### H H #### [address] Folate 15.0 ng/mL Normal >5.9 [facility] Comment on above: Result Comment: Maribel te reference range: >5.9 ng/ml The WHO technical consultation on folate and vitamin b12 deficiencies has determined that folate concentrations less than 4 ng/ml are considered deficient. PERFORMED BY: [place] [address] PATHOLOGIST LEAD CARGOMAN EVY GARCIA M.D. Performed By: #### H H #### [address] Vitamin B12 ser/plasOrdered By: Dale Mckeon on 11-17-2023 Cobalamin (Vitamin B12) [Mass/Vol] 816 pg/mL 180-914 [facility] REVERSE T3on 08-29-2022 Reverse T3, Serum 23.1 ng/dL Normal 9.2-24.1 [facility] Comment on above: Result Comment: This test was developed and its performance characteristics determined by [facility]. It has not been cleared or approved by the Food and Drug Administration. Performed By: #### R EVRT3 #### [facility] [address] [address] [address] Jin Hodges T3, TOTAL (TRIIODOTHYRONINE) on 08-27-2022 T3, TOTAL 136 ng/dL Normal 71-180 [facility] Comment on above: Performed By: #### T 3TOTAL #### [facility] [address] [address] [address] Jin Hodges FREE T3on 08-26-2022 FREE T3 2.98 pg/mlL Normal 2.18-3.98 [facility] Comment on above: Performed By: #### F T3, TSH #### [facility] [address] [place] [address] Dr. Jin Hodges FREE T4on 08-26-2022 Free T4 [Mass/Vol] 0.81 ng/dL Normal 0.76-1.46 [facility] Comment on above: Performed By: #### F T4 #### [facility] [address] [place] [address] Dr. Jin Hodges TSHon 08-26-2022 TSH 0.561 uIU/mL Normal 0.358-3.740 [facility] Comment on above: Performed By: #### F T3, TSH #### [facility] [address] [place] [address] Dr. Jin Hodges REVERSE T3on 03-05-2022 Reverse T3, Serum 21.3 ng/dL Normal 9.2-24.1 [facility] Comment on above: Result Comment: This test was developed and its performance characteristics determined by [facility]. It has not been cleared or approved by the Food and Drug Administration. Performed By: #### R EVRT3 #### [facility] [address] [place] [address] Dr. Jin Hodges T3, TOTAL (TRIIODOTHYRONINE) on 03-01-2022 T3, TOTAL 123 ng/dL Normal 71-180 [facility] Comment on above: Performed By: #### T 3TOTAL #### [facility] [address] [place] [address] Dr. Jin Hodges FREE T3on 02-28-2022 FREE T3 3.10 pg/mlL Normal 2.18-3.98 [facility] Comment on above: Performed By: #### T SH, FT3 #### [facility] [address] [place] [address] Dr. Jin Hodges FREE T4on 02-28-2022 Free T4 [Mass/Vol] 0.92 ng/dL Normal 0.76-1.46 [facility] Comment on above: Performed By: #### F T4 #### [facility] [address] [address] [address] Jin Hodges TSHon 02-28-2022 TSH 0.133 uIU/mL Critically low 0.358-3.740 [facility] Comment on above: Performed By: #### T SH, FT3 #### [facility] [address] [address] [address] Jin Hodges Vital Signs Date Time Vital Sign Value Performing Clinician Facility 11-21-2023 15:01-0400 Body temperature 97.7 [degF] MD Catracho Sheriff Work Phone: [facility] 11-21-2023 15:01-0400 Diastolic blood pressure 54 mm[Hg] MD Catracho Sheriff Work Phone: [facility] 11-21-2023 15:01-0400 Heart rate 73 /min MD Catracho Sheriff Work Phone: [facility] 11-21-2023 15:01-0400 Respiratory rate 20 /min MD Catracho Sheriff Work Phone: [facility] 11-21-2023 15:01-0400 SaO2% (BldA) [Mass fraction] 96 % MD Catracho Sheriff Work Phone: [facility] 11-21-2023 15:01-0400 Systolic blood pressure 108 mm[Hg] MD Catracho Sheriff Work Phone: [facility] 11-21-2023 05:33-0400 Body weight 73.5 kg MD Catracho Sheriff Work Phone: [facility] 11-20-2023 13:22-0400 Body height 160.02 cm MD Catracho Sheriff Work Phone: [facility] 11-19-2023 00:00-0400 Inhaled oxygen flow rate 2 L/min MD Catracho Sheriff Work Phone: [facility] 08-25-2023 10:17-0500 Body height 162.6 cm Catracho Sheriff MD Work Phone: [facility] 08-25-2023 10:17-0500 Body mass index (BMI) [Ratio] 25.06 kg/m2 Catracho Sheriff MD Work Phone: [facility] 08-25-2023 10:170500 Body weight 66.22 kg Catracho Sheriff MD Work Phone: [facility] Encounters Encounter Date Encounter Type Care Provider Facility Start: 11-17-2023 Non-patient / Non-visit MD Vince Sheriff Work Phone: [facility] Work Phone: Start: 11-17-2023 End: 11-21-2023 Evaluation and management of inpatient Frantz Nieves Facility:[facility] Start: 11-17-2023 End: 11-21-2023 Evaluation and management of inpatient MD Catracho Sheriff Work Phone: [facility] [place] [facility] Work Phone: Start: 11-03-2023 End: 11-03-2023 ambulatory CATRACHO SHERIFF Not Available Start: 10-21-2023 End: 10-21-2023 ambulatory CATRACHO SHERIFF Not Available Start: 08-25-2023 End: 08-25-2023 ambulatory CATRACHO SHERIFF Not Available Start: 08-25-2023 End: 08-25-2023 Office outpatient visit 25 minutes Catracho Sheriff MD Work Phone: [facility] Comment on above: Chronic pain syndrom e (Primary Dx); Chronic respiratory failure with hypoxia (CMS/HCC); Dependence on supplemental oxygen; Stasis dermatitis of both legs; Arthritis of both knees Start: 08-13-2023 End: 08-13-2023 ambulatory CATRACHO SHERIFF Not Available Start: 07-23-2023 End: 07-23-2023 ambulatory CATRACHO SHERIFF Not Available Start: 08-26-2022 End: 08-27-[address] CATRACHO SHERIFF Facility: Start: 02-28-2022 End: 03-01-[address] CATRACHO SHERIFF Facility:[facility]1 Procedures Date Procedure Procedure Detail Performing Clinician Start: 11-18-2023 Esophagogastroduodenoscopy MD Catracho lazo Work Phone: Start: 11-18-2023 Antibody screen Frantz Nieves Comment on above: Order Comment: Transfuse now? Y Number of units to transfuse now? 1 Transfuse now? Y Number of units to transfuse now? 1 Transfuse now? Y Number of units to transfuse now? 1 Transfuse now? Y Number of units to transfuse now? 1 Result Comment: PERF ORMED BY: [facility] [address] [place] [address] PATHOLOGIST LEAD CARGOMAN EVY GARCIA M.D. Start: 09-12-2013 Colonoscopy Catracho Sheriff MD Work Phone: Plan of Treatment Date Care Activity Detail Author Start: 08-13-2024 Medicare Annual Wellness (AWV) Medicare Annual Wellness (AWV) [facility] Start: 11-21-2023 [facility] Start: 11-17-2023 Hospital admission [facility] Start: 11-17-2023 Referral to shallot packer [facility] Start: 10-21-2023 End: 10-21-2023 Patient encounter procedure 10/21/2023 10:30 AM EDT Office Visit [facility] [address] [place] [address] Catracho Sheriff MD [address] [place] [address] [facility] Start: 09-12-2023 Screening for malignant neoplasm of colon [facility] Start: 03-27-2023 Influenza vaccination Influenza Vaccine (#1) [facility] Start: 1950 Screening for malignant neoplasm of colon [facility] Helicobacter pylori Ag [Presence] in Stool by Immunoassay [facility] Patient Education Duodenal Ulcer (DC) Pantoprazole Polysaccharide-Iron Complex [facility] Work Phone: Patient referral [facility] Work Phone: [facility] Immunizations Immunization Date Immunization Notes Care Provider Fa manniety 05-03-2021 Seasonal, trivalent, recombinant, injectable influenza vaccine, preservative free Catracho Sheriff MD Work Phone: [facility] 05-03-2021 influenza virus vacc ine, unspecified formulation Catracho Sheriff MD Work Phone: [facility] 12-03-2020 Pfizer Purple Cap SARS-CoV-2 Vaccination Catracho Sheriff MD Work Phone: [facility] 11-12-2020 Pfizer Purple Cap SARS-CoV-2 Vaccination Catracho Sheriff MD Work Phone: [facility] 09-26-2019 Influenza, High-dose Seasonal, Quadrivalent, Preservative Free Catracho Sheriff MD Work Phone: [facility] 09-26-2019 pneumococcal polysaccharide vaccine, 23 valent Catracho Sheriff MD Work Phone: [facility] 06-26-2018 influenza, injectabl e, quadrivalent, preservative free Catracho Sheriff MD Work Phone: [facility] 06-26-2018 pneumococcal conjuga te vaccine, 13 valent Catracho Sheriff MD Work Phone: [facility] 11-11-2004 pneumococcal polysaccharide vaccine, 23 valent Catracho Sheriff MD Work Phone: [facility] 11-11-2004 tetanus and diphther ia toxoids, adsorbed, preservative free, for adult use (5 Lf of tetanus toxoid and 2 Lf of diphtheria toxoid) Catracho Sheriff MD Work Phone: [facility] Payers Date Payer Category Payer Medicare [id number] 2023 Self-pay [id number] 2022 Medicare HUMANA MEDICARE ADVANTAGE HU[employer]NA MEDICARE [id number] 2022-Present [address] [address] [place] [address] [id number] 1959 Medicare [id number] 1950 Unknown [id number] 1948 Unknown [id number] 1948 Unknown [id number] 1948 Unknown [id number] 1948 Unknown [id number] 1948 Unknown [id number] 1948 Unknown [id number] Medicaid Medicaid [place] [id number] Medicare Medicare Outpatient [id number] Unknown HCAP/HFA/FAP Active [id number] Unknown [id number] Social History Date Type Detail Facility Start: 08[facility]13-2023 [facility] Start: 11-17-2023 History of tobacco use Current smoke r [facility] History of tobacco use Cigarette Smoker [facility] Start: 08-13-2023 Tobacco use and exposure Smokeless tobacco non-user [facility] Start: 08-25-2023 Alcohol intake Ex-drinker (finding) [facility] Start: 08-13-2023 End: 08-25-2023 History of Social function [facility] Start: 08-13-2023 End: 08-25-2023 Tobacco use panel [facility] Start: 02-24-2023 Education 13 [facility] Start: 02-24-2023 Alcohol Comment Caffeine intak e: drinks decaf [facility] Start: 1950 Sex Assigned At Not on file [facility] Start: 1950 Sex Assigned At Female F [facility] Goals Date Patient Goal Desired Activity /State Functional Status Date Assessment Result Facility 11-21-2023 Functional status Patient at Baseline [facility] Work Phone: Mental Status Date Assessment Result Facility 11-21-2023 Cognitive function Cognitive Sta tus Patient at Baseline [facility] Work Phone: Clinical Notes 08-25-2023 to 11-20-2023 Note Date & Type Note Facility 11-20-2023 Progress note Note Date/Time November 20, 2023 11:40am [facility] [address] [place] [address] Hospitalist Progress Note Signed Patient: Jenny Ewing MR#: [id number] : 1950 Acct:[id number] Age/Sex: 73 / F Adm Date: 4 Loc: Room: [address] [place] [address] Type: ADM IN Attending Dr: Jaspal Whalen MD Copies to: ~ Date of Service: 11/20/2023 Subjective Subjective Narrative: Patient is resting comfortably. She is in no distress. She had a black BM earlier today. No nausea or vomiting. Heart is regular Lungs are clear Abdomen soft benign Neurological nonfocal Assessment and plan 1.Peptic ulcer disease with a very large 4 cm duodenal ulcer circumflex, with nonbleeding visible vessel, treated by injection with epinephrine and electrocoagulation. Clipping. Anemia of acute GI blood loss Continue Protonix IV Advance diet as tolerated DC fluids Testing for H. pylori Continue monitor CBC, transfuse as necessary Check iron panel in am Transfer out of the ICU to medical floor .Other chronic problems include Osteoporosis Depression COPD Exam Physical Exam Vital Signs: Temp Pulse Resp BP Pulse Ox O2 Del Method O2 Flow Rate 97.8 F 66 18 101/56 L 96 Room Air 2 11/20/23 04:00 11/20/23 09:19 11/20/23 09:19 11/20/23 04:00 11/20/23 04:00 11/20/23 07:39 11/19/23 00:00 Objective Lab Results 11/20/23 04:24 11/19/23 04:53 Meds Allergies and Active Meds Allergies moxifloxacin [From Avelox] Adverse Reaction (Intermediate, Verified 11/17/23 11:29) Itching codeine Adverse Reaction (Intermediate, Uncoded 11/17/23 11:29) Nightmare demerol Adverse Reaction (Mild, Uncoded 11/17/23 11:29) other Active Meds: Active Medications Generic Name Dose Route Start Last Admin Trade Name Freq PRN Reason Stop Dose Admin Acetaminophen 1,000 mg 11/20/23 09:43 11/20/23 09:59 Acetaminophen 500 Mg Tablet PO 11/19/24 09:42 1,000 mg Q8H PRN Administration Fever or Pain Albuterol 2.5 mg 11/17/23 16:23 Albuterol Neb 2.5 Mg/3 Ml Vial.Neb INHALATION 11/16/24 16:22 Q3H PRN Cough/Wheeze Albuterol/Ipratropium 3 ml 11/17/23 22:00 11/20/23 09:19 Ipratropium/Albuterol 0.5-3 Mg 3 Ml Ampul.Neb INHALATION 11/16/24 21:59 3 ml TID MARION Administration Buspirone HCl 15 mg 11/18/23 08:00 11/20/23 09:06 Buspirone 15 Mg Tablet PO 11/17/24 07:59 15 mg BID.WITH.BFAST.LUNCH MARION Administration Buspirone HCl 30 mg 11/17/23 22:00 11/19/23 21:12 Buspirone 15 Mg Tablet PO 11/16/24 21:59 30 mg QHS MARION Administration Docusate Sodium 100 mg 11/17/23 21:00 11/20/23 09:05 Docusate 100 Mg Capsule PO 11/16/24 20:59 Not Given BID MARION Duloxetine HCl 40 mg 11/18/23 09:00 11/20/23 09:05 Duloxetine 20 Mg Capsule.Dr PO 11/17/24 08:59 40 mg QAM MARION Administration Gabapentin 100 mg 11/17/23 22:00 11/20/23 09:05 Gabapentin 100 Mg Capsule PO 11/16/24 21:59 100 mg TID MARION Administration Pantoprazole Sodium 80 mg/ 100 mls @ 10 mls/hr 11/19/23 12:00 11/20/23 09:06 Sodium Chloride IV 11/18/24 11:59 8 mg/hr .Q10H MARION 10 mls/hr Administration 8 MG/HR Levothyroxine Sodium 150 mcg 11/18/23 06:30 11/20/23 06:43 Levothyroxine 150 Mcg Tablet PO 11/17/24 06:29 150 mcg DAILY.0630 MARION Administration Nicotine 1 each 11/18/23 09:00 11/20/23 09:05 Nicotine Patch 14 Mg/24hr 1 Each Patch.Td24 TRANSDERML 12/01/23 09:01 1 each DAILY MARION Administration Polyethylene Glycol 17 gm 11/17/23 17:15 11/20/23 09:07 Polyethylene Glycol 3350 17 Gm Powd.Pack PO 11/16/24 17:14 Not Given BID MARION Sennosides 2 tab 11/17/23 22:00 11/19/23 21:59 Sennosides 8.6 Mg Tablet PO 11/16/24 21:59 Not Given HS MARION Sodium Chloride 0 ml 11/17/23 16:23 11/18/23 10:06 Sodium Chloride 0.9 % 10 Ml Syringe IV-PUSH 11/16/24 16:22 10 ml PRN PRN Administration Flush Sodium Chloride 10 ml 11/18/23 09:01 Sodium Chloride 0.9 % 10 Ml Syringe IV-PUSH 11/17/24 09:00 PRN PRN Flush Temazepam 15 mg 11/18/23 20:45 11/18/23 21:19 Temazepam 15 Mg Capsule PO 05/16/24 20:44 15 mg QHS PRN Administration Sleep Tramadol HCl 100 mg 11/17/23 22:00 11/20/23 09:05 Tramadol 50 Mg Tablet PO 05/15/24 21:59 100 mg QID MARION Administration A&P - Hospitalist Assessment/Plan (1) Duodenal ulcer: Plan \ Documented By: Jaspal Whalen MD 11/20/23 1138 Signed By: <Electronically signed by Jaspal Whalen MD> 11/20/23 1140 [facility] Work Phone: 1(345) 194-793404-25-2024 Progress note Author Frantz Nieves [facility] November 19, 2023 1:51pm Note Date/Time November 19, 2023 11: 13am [facility] [address] [place] [address] Hospitalist Progress Note Signed Patient: Jenny Ewing MR#: [id number] : 1950 Acct:[id number] Age/Sex: 73 / F Adm Date: 4 Loc: Room: [address] [place] [address] Type: ADM IN Attending Dr: Frantz Nieves DO Copies to: ~ Date of Service: 11/19/2023 Subjective Subjective Narrative: Patient was evaluated at bedside. Reports poor sleep overnight due to frequent wakening and history of sleep difficulty. Overall feels more stable on her feet, reports no melena, abdominal pain has improved. EGD was positive for 4 cmnonbleeding gastric ulcer. H&H was monitored overnight, with a mild decrease from 7.7-7.1 this morning. No other complaints. Telemetry reviewed No events overnight General: ANO x3, cooperative Cardiovascular: Regular rate and rhythm, no rubs murmurs or gallops, Respiratory: Diminished breath sounds bilateral lower lobes, mild wheezing left lobe, no increased work of breathing Abdomen: Soft, nondistended, mild midepigastric abdominal tenderness to palpation Extremities: No edema Exam Physical Exam Vital Signs: Temp Pulse Resp BP Pulse Ox O2 Del Method O2 Flow Rate 97.9 F 76 18 122/71 96 Room Air 2 11/19/23 04:00 11/19/23 08:17 11/19/23 08:17 11/19/23 08:00 11/19/23 08:00 11/19/23 08:00 11/19/23 00:00 Narrative: General: Awake alert, no acute distress HEENT: head atraumatic, normocephalic, moist mucous membranes, pale conjunctiva Neck: supple no masses, no lymphadenopathy CVS: regular rate and rhythm, no murmurs or gallops Respiratory: clear to auscultation bilaterally, no wheezing or crackles, symmetric expansion GI: soft, nondistended, nontender, positive bowel sounds with no organomegaly Extremity: moves all extremities, no restrictions of movements, no calf tenderness, no edema Neuro: AOx3, CN II-VII intact. Moves all extremities in all planes of motion. Skin: dry, intact no rashes or lesions Objective Lab Results 11/19/23 11:01 11/19/23 04:53 Meds Allergies and Active Meds Allergies moxifloxacin [From Avelox] Adverse Reaction (Intermediate, Verified 11/17/23 11:29) Itching codeine Adverse Reaction (Intermediate, Uncoded 11/17/23 11:29) Nightmare demerol Adverse Reaction (Mild, Uncoded 11/17/23 11:29) other Active Meds: Active Medications Generic Name Dose Route Start Last Admin Trade Name Freq PRN Reason Stop Dose Admin Albuterol 2.5 mg 11/17/23 16:23 Albuterol Neb 2.5 Mg/3 Ml Vial.Neb INHALATION 11/16/24 16:22 Q3H PRN Cough/Wheeze Albuterol/Ipratropium 3 ml 11/17/23 22:00 11/19/23 08:16 Ipratropium/Albuterol 0.5-3 Mg 3 Ml Ampul.Neb INHALATION 11/16/24 21:59 3 ml TID MARION Administration Baclofen 10 mg 11/17/23 17:30 11/19/23 09:39 Baclofen 10 Mg Tablet PO 11/16/24 17:29 10 mg BID.WITH.BFAST.LUNCH MARION Administration Buspirone HCl 15 mg 11/18/23 08:00 11/19/23 09:39 Buspirone 15 Mg Tablet PO 11/17/24 07:59 15 mg BID.WITH.BFAST.LUNCH MARION Administration Buspirone HCl 30 mg 11/17/23 22:00 11/18/23 21:19 Buspirone 15 Mg Tablet PO 11/16/24 21:59 30 mg QHS MARION Administration Docusate Sodium 100 mg 11/17/23 21:00 11/19/23 09:39 Docusate 100 Mg Capsule PO 11/16/24 20:59 100 mg BID MARION Administration Duloxetine HCl 40 mg 11/18/23 09:00 11/19/23 09:39 Duloxetine 20 Mg Capsule.Dr PO 11/17/24 08:59 40 mg QAM MARION Administration Gabapentin 100 mg 11/17/23 22:00 11/19/23 09:39 Gabapentin 100 Mg Capsule PO 11/16/24 21:59 100 mg TID MARION Administration Levothyroxine Sodium 150 mcg 11/18/23 06:30 11/19/23 06:17 Levothyroxine 150 Mcg Tablet PO 11/17/24 06:29 Not Given DAILY.0630 MARION Nicotine 1 each 11/18/23 09:00 11/19/23 09:39 Nicotine Patch 14 Mg/24hr 1 Each Patch.Td24 TRANSDERML 12/01/23 09:01 1 each DAILY MARION Administration Pantoprazole Sodium 40 mg 11/18/23 21:00 11/19/23 09:40 Pantoprazole 40 Mg Vial IV-PUSH 11/17/24 20:59 40 mg BID MARION Administration Polyethylene Glycol 17 gm 11/17/23 17:15 11/19/23 09:40 Polyethylene Glycol 3350 17 Gm Powd.Pack PO 11/16/24 17:14 17 gm BID MARION Administration Sennosides 2 tab 11/17/23 22:00 11/18/23 21:19 Sennosides 8.6 Mg Tablet PO 11/16/24 21:59 2 tab HS MARION Administration Sodium Chloride 0 ml 11/17/23 16:23 11/18/23 10:06 Sodium Chloride 0.9 % 10 Ml Syringe IV-PUSH 11/16/24 16:22 10 ml PRN PRN Administration Flush Sodium Chloride 10 ml 11/18/23 09:01 Sodium Chloride 0.9 % 10 Ml Vial.Pf INJECTION 11/17/24 09:00 PRN PRN Dilution Sodium Chloride 10 ml 11/18/23 09:01 Sodium Chloride 0.9 % 10 Ml Syringe IV-PUSH 11/17/24 09:00 PRN PRN Flush Spironolactone 25 mg 11/18/23 09:00 11/19/23 09:38 Spironolactone 25 Mg Tablet PO 11/17/24 08:59 25 mg QAM MARION Administration Temazepam 15 mg 11/18/23 20:45 11/18/23 21:19 Temazepam 15 Mg Capsule PO 05/16/24 20:44 15 mg QHS PRN Administration Sleep Tramadol HCl 100 mg 11/17/23 22:00 11/19/23 09:39 Tramadol 50 Mg Tablet PO 05/15/24 21:59 100 mg QID MARION Administration A&P - Hospitalist Assessment/Plan (1) Acute anemia: Plan: ? Hemoglobin trended overnight, decreased from 7.7 down to 7.1 ? 2 units PRBC at [place], prior to transfer here, received another 2 units yesterday ? FOBT positive ? Continue Protonix infusion per gastroenterology (2) Duodenal ulcer: Plan: ? Continue Protonix 40 mg IV twice daily, and then p.o. outpatient for total of 12 weeks ?Repeat EGD in 12 weeks ?Avoid NSAIDs ?N.p.o. still per GI ?If signs of recurrent bleeding will need transfer to Center with interventionalradiology for possible embolization per GI. ?Appreciate GI consult (3) Macrocytosis: Plan: ? Vitamin B12 and folic acid levels were normal (4) Weight loss, unintentional: Plan: ? Recommend age-appropriate cancer screening ? Total protein levels 3.9 ? Albumin level 2.4 ? Plan to initiate diet supplements after EGD (5) GI bleed: Plan: As above (6) Tobacco abuse: Plan: Nicotine patch ordered (7) Weakness: Plan: PT OT consulted though the weakness is likely secondary to her anemia Plan ? DVT prophylaxis with SCDs ? N.p.o. for EGD ? Full code I personally saw this patient on the day of the encounter, reviewed the history,performed the jiménez elements of the exam, formulated the plan of care and confirmed the Resident's assessment and plan. Seen and evaluated in conjunctionwith Dr. Mckeon, patient was resting comfortably in the ICU this morning, her hemoglobin was trending down throughout the day, repeat draw at approximate 11:00 this morning showed hemoglobin of 6.5. She will receive 1 unit PRBC this afternoon, repeat hemoglobin scheduled for 5 PM. If she continues to show signsof bleeding she will likely be transferred to tertiary care center as mentioned above. - Frantz Nieves DO Documented By: Frantz Nieves DO 11/19/23 1101 Signed By: <Electronically signed by Frantz Nieves DO> 11/19/23 1351 <Electronically signed by DO RES Dale Mckeon> 11/19/23 1113 [facility] Work Phone: 1(809) 656-437004-25-2024 Progress note Author Seun Freitas [facility] November 19, 2023 9:54am Note Date/Time November 19, 2023 9:5 4am [facility] [address] [place] [address] Gastroenterology PN Signed Patient: Jenny Ewing MR#: [id number] : 1950 Acct:[id number] Age/Sex: 73 / F Adm Date: 4 Loc: Room: [address] [place] [address] Type: ADM IN Attending Dr: Frantz Nieves DO Copies to: MD Seun Wyman MD Shawn J Warner, ~ Date of Service: 11/19/2023 Subjective Subjective Narrative: Patient had 1 episode of melena otherwise denied any other complaints Exam Physical Exam Vital Signs: Temp Pulse Resp BP Pulse Ox O2 Del Method O2 Flow Rate 97.9 F 76 18 122/71 96 Room Air 2 11/19/23 04:00 11/19/23 08:17 11/19/23 08:17 11/19/23 08:00 11/19/23 08:00 11/19/23 08:00 11/19/23 00:00 Narrative: General appearance: Pleasant, NAD Skin: No jaundice Head: NC/AT Eyes: Anicteric Neck: Supple Lungs: Normal respiratory effort, no use of accessory muscles Abdomen: Soft, nondistended Neuro: Ox3. Objective Allergies and Medications Allergies/Adverse Reactions: Allergies Allergy/AdvReac Type Severity Reaction Status Date / Time moxifloxacin [From Avelox] AdvReac Intermediate Itching Verified 11/17/23 11:29 codeine AdvReac Intermediate Nightmare Uncoded 11/17/23 11:29 demerol AdvReac Mild other Uncoded 11/17/23 11:29 Active Meds: Active Medications Generic Name Dose Route Start Last Admin Trade Name Freq PRN Reason Stop Dose Admin Albuterol 2.5 mg 11/17/23 16:23 Albuterol Neb 2.5 Mg/3 Ml Vial.Neb INHALATION 11/16/24 16:22 Q3H PRN Cough/Wheeze Albuterol/Ipratropium 3 ml 11/17/23 22:00 11/19/23 08:16 Ipratropium/Albuterol 0.5-3 Mg 3 Ml Ampul.Neb INHALATION 11/16/24 21:59 3 ml TID MARION Administration Baclofen 10 mg 11/17/23 17:30 11/19/23 09:39 Baclofen 10 Mg Tablet PO 11/16/24 17:29 10 mg BID.WITH.BFAST.LUNCH MARION Administration Buspirone HCl 15 mg 11/18/23 08:00 11/19/23 09:39 Buspirone 15 Mg Tablet PO 11/17/24 07:59 15 mg BID.WITH.BFAST.LUNCH MARION Administration Buspirone HCl 30 mg 11/17/23 22:00 11/18/23 21:19 Buspirone 15 Mg Tablet PO 11/16/24 21:59 30 mg QHS MARION Administration Docusate Sodium 100 mg 11/17/23 21:00 11/19/23 09:39 Docusate 100 Mg Capsule PO 11/16/24 20:59 100 mg BID MARION Administration Duloxetine HCl 40 mg 11/18/23 09:00 11/19/23 09:39 Duloxetine 20 Mg Capsule.Dr PO 11/17/24 08:59 40 mg QAM MARION Administration Gabapentin 100 mg 11/17/23 22:00 11/19/23 09:39 Gabapentin 100 Mg Capsule PO 11/16/24 21:59 100 mg TID MARION Administration Levothyroxine Sodium 150 mcg 11/18/23 06:30 11/19/23 06:17 Levothyroxine 150 Mcg Tablet PO 11/17/24 06:29 Not Given DAILY.0630 MARION Nicotine 1 each 11/18/23 09:00 11/19/23 09:39 Nicotine Patch 14 Mg/24hr 1 Each Patch.Td24 TRANSDERML 12/01/23 09:01 1 each DAILY MARION Administration Pantoprazole Sodium 40 mg 11/18/23 21:00 11/19/23 09:40 Pantoprazole 40 Mg Vial IV-PUSH 11/17/24 20:59 40 mg BID MARION Administration Polyethylene Glycol 17 gm 11/17/23 17:15 11/19/23 09:40 Polyethylene Glycol 3350 17 Gm Powd.Pack PO 11/16/24 17:14 17 gm BID MARION Administration Sennosides 2 tab 11/17/23 22:00 11/18/23 21:19 Sennosides 8.6 Mg Tablet PO 11/16/24 21:59 2 tab HS MARION Administration Sodium Chloride 0 ml 11/17/23 16:23 11/18/23 10:06 Sodium Chloride 0.9 % 10 Ml Syringe IV-PUSH 11/16/24 16:22 10 ml PRN PRN Administration Flush Sodium Chloride 10 ml 11/18/23 09:01 Sodium Chloride 0.9 % 10 Ml Vial.Pf INJECTION 11/17/24 09:00 PRN PRN Dilution Sodium Chloride 10 ml 11/18/23 09:01 Sodium Chloride 0.9 % 10 Ml Syringe IV-PUSH 11/17/24 09:00 PRN PRN Flush Spironolactone 25 mg 11/18/23 09:00 11/19/23 09:38 Spironolactone 25 Mg Tablet PO 11/17/24 08:59 25 mg QAM MARION Administration Temazepam 15 mg 11/18/23 20:45 11/18/23 21:19 Temazepam 15 Mg Capsule PO 05/16/24 20:44 15 mg QHS PRN Administration Sleep Tramadol HCl 100 mg 11/17/23 22:00 11/19/23 09:39 Tramadol 50 Mg Tablet PO 05/15/24 21:59 100 mg QID MARION Administration A&P - Gastroenterology Assessment/Plan (1) Excessive use of nonsteroidal anti-inflammatory drugs (NSAIDs): (2) GI bleed: (3) Duodenal ulcer: Plan Ms. Ewing is a 73 year old female with hypothyroidism history of CVA/TIA, COPD, current cigarette smoker, chronic NSAIDs use who gastroenterology is consulted for anemia. + Chronic NSAIDs use + Cigarette smoking EGD yesterday showed with a nonbleeding visible vessel noted.1 cc of epinephrine1/10,000 was injected then the visible vessel started to actively bleed so bipolar electrocoagulation was applied then a clip was placed at the visible vessel with successful hemostasis. -Continue to monitor for overt signs of bleeding, continue to monitor CBC. Ulceris not amenable for further endoscopic treatment. If patient shows signs of recurrent bleeding then she will need to be transferred to a center with interventional radiology for possible embolization. -Continue Protonix 40 mg twice daily -Avoid NSAIDs -Will arrange for repeat EGD in 4 weeks to assess ulcer healing Documented By: Seun Freitas MD 11/19/23 0950 Signed By: <Electronically signed by Seun Freitas MD> 11/19/23 0954 [facility] Work Phone: 1(115) 163-554304-24-2024 [facility] Progress note Author Frantz Nieves [facility] November 18, 2023 10:04am Note Date/Time November 18, 2023 10: 04am [facility] [address] [place] [address] Hospitalist Progress Note Signed Patient: Jenny Ewing MR#: [id number] : 1950 Acct:[id number] Age/Sex: 73 / F Adm Date: 4 Loc: Room: [address] [place] [address] Type: ADM IN Attending Dr: Frantz Nieves DO Copies to: ~ Date of Service: 11/18/2023 Subjective Subjective Narrative: Seen and evaluated, patient currently laying in bed and getting an IV, she remains anemic overnight, denies any complaints other than lack of sleep. Exam Physical Exam Vital Signs: Temp Pulse Resp BP Pulse Ox O2 Del Method 98.6 F 85 16 91/46 L 93 L Room Air 11/18/23 09:55 11/18/23 09:55 11/18/23 09:55 11/18/23 09:55 11/18/23 09:55 11/18/23 09:25 Narrative: General: Awake alert, no acute distress HEENT: head atraumatic, normocephalic, moist mucous membranes, pale conjunctiva Neck: supple no masses, no lymphadenopathy CVS: regular rate and rhythm, no murmurs or gallops Respiratory: clear to auscultation bilaterally, no wheezing or crackles, symmetric expansion GI: soft, nondistended, nontender, positive bowel sounds with no organomegaly Extremity: moves all extremities, no restrictions of movements, no calf tenderness, no edema Neuro: AOx3, CN II-VII intact. Moves all extremities in all planes of motion. Skin: dry, intact no rashes or lesions Objective Lab Results 11/18/23 07:13 11/18/23 07:13 Meds Allergies and Active Meds Allergies moxifloxacin [From Avelox] Adverse Reaction (Intermediate, Verified 11/17/23 11:29) Itching codeine Adverse Reaction (Intermediate, Uncoded 11/17/23 11:29) Nightmare demerol Adverse Reaction (Mild, Uncoded 11/17/23 11:29) other Active Meds: Active Medications Generic Name Dose Route Start Last Admin Trade Name Freq PRN Reason Stop Dose Admin Albuterol 2.5 mg 11/17/23 16:23 Albuterol Neb 2.5 Mg/3 Ml Vial.Neb INHALATION 11/16/24 16:22 Q3H PRN Cough/Wheeze Albuterol/Ipratropium 3 ml 11/17/23 22:00 11/18/23 09:24 Ipratropium/Albuterol 0.5-3 Mg 3 Ml Ampul.Neb INHALATION 11/16/24 21:59 3 ml TID MARION Administration Baclofen 10 mg 11/17/23 17:30 11/18/23 08:14 Baclofen 10 Mg Tablet PO 11/16/24 17:29 10 mg BID.WITH.BFAST.LUNCH MARION Administration Buspirone HCl 15 mg 11/18/23 08:00 11/18/23 08:14 Buspirone 15 Mg Tablet PO 11/17/24 07:59 15 mg BID.WITH.BFAST.LUNCH MARION Administration Buspirone HCl 30 mg 11/17/23 22:00 11/17/23 22:24 Buspirone 15 Mg Tablet PO 11/16/24 21:59 Not Given QHS MARION Docusate Sodium 100 mg 11/17/23 21:00 11/18/23 08:15 Docusate 100 Mg Capsule PO 11/16/24 20:59 100 mg BID MARION Administration Duloxetine HCl 40 mg 11/18/23 09:00 11/18/23 08:15 Duloxetine 20 Mg Capsule.Dr PO 11/17/24 08:59 40 mg QAM MARION Administration Gabapentin 100 mg 11/17/23 22:00 11/18/23 08:14 Gabapentin 100 Mg Capsule PO 11/16/24 21:59 100 mg TID MARION Administration Sodium Chloride 500 mls @ 20 mls/hr 11/18/23 05:45 11/18/23 09:17 0.9 % Sodium Chloride IV 11/19/23 05:44 20 mls/hr PROTOCOL PRN Administration BLOOD TRANSFUSION Sodium Chloride 500 mls @ 20 mls/hr 11/18/23 08:42 0.9 % Sodium Chloride IV 11/19/23 08:41 PROTOCOL PRN BLOOD TRANSFUSION Magnesium Sulfate 4 gm in 100 mls @ 25 mls/hr 11/18/23 08:57 11/18/23 09:17 Magnesium Sulf 4 Gm-*Swfi* IV 11/18/23 12:56 25 mls/hr ONCE ONE Administration Sodium Chloride 500 mls @ 20 mls/hr 11/18/23 09:03 0.9 % Sodium Chloride IV 11/19/23 09:02 PROTOCOL PRN BLOOD TRANSFUSION Levothyroxine Sodium 150 mcg 11/18/23 06:30 11/18/23 06:43 Levothyroxine 150 Mcg Tablet PO 11/17/24 06:29 Not Given DAILY.0630 MARION Morphine Sulfate 2 mg 11/17/23 14:15 11/17/23 18:57 Morphine Sulfate 2 Mg/Ml Vial IV-PUSH 11/18/23 11:00 2 mg Q4H PRN Administration back pain Nicotine 1 each 11/18/23 09:00 Nicotine Patch 14 Mg/24hr 1 Each Patch.Td24 TRANSDERML 12/01/23 09:01 DAILY MARION Pantoprazole Sodium 40 mg 11/18/23 21:00 Pantoprazole 40 Mg Vial IV-PUSH 11/17/24 20:59 BID MARION Polyethylene Glycol 17 gm 11/17/23 17:15 11/17/23 20:44 Polyethylene Glycol 3350 17 Gm Powd.Pack PO 11/16/24 17:14 17 gm BID MARION Administration Sennosides 2 tab 11/17/23 22:00 11/17/23 22:24 Sennosides 8.6 Mg Tablet PO 11/16/24 21:59 Not Given HS MARION Sodium Chloride 0 ml 11/17/23 16:23 11/18/23 09:18 Sodium Chloride 0.9 % 10 Ml Syringe IV-PUSH 11/16/24 16:22 10 ml PRN PRN Administration Flush Sodium Chloride 10 ml 11/18/23 09:01 Sodium Chloride 0.9 % 10 Ml Vial.Pf INJECTION 11/17/24 09:00 PRN PRN Dilution Sodium Chloride 10 ml 11/18/23 09:01 Sodium Chloride 0.9 % 10 Ml Syringe IV-PUSH 11/17/24 09:00 PRN PRN Flush Spironolactone 25 mg 11/18/23 09:00 Spironolactone 25 Mg Tablet PO 11/17/24 08:59 QAM [facility] Tramadol HCl 100 mg 11/17/23 22:00 11/17/23 22:25 Tramadol 50 Mg Tablet PO 05/15/24 21:59 Not Given QID [facility] A&P - Hospitalist Assessment/Plan (1) Acute anemia: Plan: ? Hemoglobin was trended overnight and remains low, she received 2 units PRBC yesterday prior to transfer here, she will receive another 2 units today ? FOBT positive ? Gastroenterology consulted, planning for EGD today ? Continue Protonix 40 mg IV push twice daily ? N.p.o. at midnight, diet recommendations after EGD today per GI. (2) Macrocytosis: Plan: ? Vitamin B12 and folic acid levels were normal (3) Weight loss, unintentional: Plan: ? Recommend age-appropriate cancer screening ? Total protein levels 3.9 ? Albumin level 2.4 ? Plan to initiate diet supplements after EGD (4) GI bleed: Plan: As above (5) Tobacco abuse: Plan: Nicotine patch ordered (6) Weakness: Plan: PT OT consulted though the weakness is likely secondary to her anemia Plan ? DVT prophylaxis with SCDs ? N.p.o. for EGD ? Full code Documented By: Frantz Nieves DO 11/18/23 1001 Signed By: <Electronically signed by Frantz Nieves, > 11/18/23 1004 [facility] Work Phone: [phone]) 519-372204-24-2024 Consult note Author Seun Freitas [facility] November 18, 2023 9:03am Note Date/Time November 17, 2023 4:1 6pm [facility] [address] [place], [place] [id number] Gastroenterology Consult Note Signed Patient: Jenny Ewing MR#: [id number] : 1950 Acct:[id number] Age/Sex: 73 / F Adm Date: 4 Loc: 3T Room: [address] [place] [address] Type: ADM IN Attending Dr: Frantz Nieves DO Copies to: MD Seun Wyman MD Shawn J Warner, DO~ HPI Data of Consult Date of Consultation: 11/17/23 Requesting Physician: Frantz Nieves DO Consult Narrative History of present illness: Ms. wEing is a 73 year old female with hypothyroidism history of CVA/TIA, COPD, current cigarette smoker, chronic NSAIDs use who gastroenterology is consulted for anemia. Patient reports dark stool. She denied melena or hematochezia. She reports upper abdominal pain. She also reports generalized weakness. She takes 1600 mg of ibuprofen every day for last 3 years. cc:: CC: Frantz Nieves DO Review of Systems Review of Systems All other systems reviewed & are negative unless noted below or in HPI [facility] Medical History (Updated 11/18/23 @ 09:03 by Seun Freitas MD) Tobacco abuse Depression Osteoporosis Osteoarthritis COPD (chronic obstructive pulmonary disease) Family History (Updated 11/17/23 @ 12:47 by Susanna Solano RN) Mother Stomach cancer Brother Colon cancer Social History Smoking Status: Current every day smoker Tobacco Type: cigarettes Substance Use Type: None Meds Medications and Allergies Allergies moxifloxacin [From Avelox] Adverse Reaction (Intermediate, Verified 11/17/23 11:29) Itching codeine Adverse Reaction (Intermediate, Uncoded 11/17/23 11:29) Nightmare demerol Adverse Reaction (Mild, Uncoded 11/17/23 11:29) other Home Medications baclofen 20 mg tablet 10 mg PO BID.WITH.BFAST.LUNCH 11/17/23 [History Confirmed 11/17/23] buspirone 15 mg tablet 15 mg PO TID 11/17/23 [History Confirmed 11/17/23] duloxetine 20 mg capsule,delayed release 40 mg PO QAM 11/17/23 [History Confirmed 11/17/23] gabapentin 100 mg capsule 100 mg PO TID 11/17/23 [History Confirmed 11/17/23] ipratropium 0.5 mg-albuterol 3 mg (2.5 mg base)/3 mL nebulization soln 3 ml inhalation TID 11/17/23 [History Confirmed 11/17/23] levothyroxine 150 mcg tablet 150 mcg PO QAM 11/17/23 [History Confirmed 11/17/23] nabumetone 750 mg tablet 1,500 mg PO QAM 11/17/23 [History Confirmed 11/17/23] spironolactone 25 mg tablet 25 mg PO QAM 11/17/23 [History Confirmed 11/17/23] tramadol 50 mg tablet 100 mg PO QID 11/17/23 [History Confirmed 11/17/23] Exam Physical Exam Vital Signs: Temp Pulse Resp BP Pulse Ox O2 Del Method 98.4 F 77 20 126/67 93 L Room Air 11/17/23 11:43 11/17/23 11:43 11/17/23 11:43 11/17/23 11:43 11/17/23 11:43 11/17/23 11:46 Narrative: General appearance: NAD Skin: No jaundice Head: NC/AT Eyes: Anicteric Neck: Supple Lungs: Normal respiratory effort, no use of accessory muscles Abdomen: Soft, nondistended Neuro: Ox3. A&P - Gastroenterology Assessment/Plan (1) Acute anemia: (2) Excessive use of nonsteroidal anti-inflammatory drugs (NSAIDs): Plan Ms. Ewing is a 73 year old female with hypothyroidism history of CVA/TIA, COPD, current cigarette smoker, chronic NSAIDs use who gastroenterology is consulted for anemia. + Chronic NSAIDs use + Cigarette smoking Hb: 4.8 at [facility] Patient is hemodynamically stable -Trend CBC and transfuse as needed, ensure two large bore IVs at least. -Protonix 40 mg twice daily -Avoid NSAIDs -Goal Hgb >7.0 -Plan for EGD today. Please keep the patient n.p.o. after midnight Documented By: Seun Freitas MD 11/17/23 1612 Signed By: <Electronically signed by Seun Freitas MD> 11/18/23 0903 [facility] Work Phone: 1(596) 208-199804-23-2024 History and physical note Author Frantz Nieves [facility] November 17, 2023 6:33pm Note Date/Time November 17, 2023 3:5 9pm [facility] [address] [place] [address] Hospitalist H&P Signed Patient: Jenny Ewing MR#: [id number] : 1950 Acct:[id number] Age/Sex: 73 / F Adm Date: 4 Loc: 3T Room: [address] [place] [address] Type: ADM IN Attending Dr: Frantz Nieves DO Copies to: Dale Mckeon DO, RES MD Frantz Wyman, ~ HPI DATE OF EXAMINATION: 11/17/23 CHIEF COMPLAINT: Anemia HISTORY OF PRESENT ILLNESS: 73-year-old female transferred from [facility] for severe anemia. 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 Thismorning the patient had acute episode of weakness in her lower extremities afterwhich she fell and hit the back of her neck and head without LOC. She was brought to the [place] ED by EMS. CT head, brain, and cervical spine without contrast was negative for acute bleed or fracture. FOBT was positive, her lab work showed:hemoglobin 4.8, HCT 15.1, MCV 104, WBC 11.6, platelets 288, NA 135, potassium 4.3, chloride 100, CO2 25.8, BUN 27, creatinine 0.81, glucose 127. Her EKG was normal sinus rhythm. Patient was given 500 mL normal saline, 2 mg morphine for acute neck and low back pain, 2 units PRBC, and 40 mg Protonix. She was then transferred to [facility] for further workup of anemia and GI bleed. Patient reports feeling better than she did this morning. Has been experiencingincreasing lower extremity weakness, midepigastric abdominal pain, and shortnessof breath. Patient reports increasing weakness over the past weeks with increasing difficulty doing ADLs. She reports melena for 3 weeks and increasingconstipation. Denies recent illness, confirmed 30 pound weight loss over the past 6-month, nightly sweats, and intermittent palpitations which she contributed to her thyroid medication. Patient smoked tobacco majority of her life no prior lung cancer screening. Unremarkable colon cancer screening 5 to 6years ago. Previous hysterectomy due to uterine mass. Family history significant for stomach cancer with her mother, colon cancer with her brother. Last TIA was in April 2021, not on anticoagulation currently as aspirin upsetsher stomach. 10 point review of system negative, other than whats in HPI/assessment and plan General appearance: Alert and oriented, in no acute distress, pleasant Face: Symmetrical, well appearing Eyes: Extraocular muscles intact, no discharge, sclera clear Cardiovascular: Regular rate and rhythm, S1/S2 are normal, no rubs murmurs or gallops Chest: Normal shape and expansion Respiratory: Diminished breath sounds bilateral lower lobes with Rales, positiveexpiratory wheezing on the right, no increased work of breathing Abdomen: Soft, no guarding, no distention, mild tenderness to palpation mid epigastric region, no organomegaly appreciated Neuro: CN's II-XII grossly intact, alert and oriented x 3, Skin: Moist, warm, unremarkable Extremities: No edema, distal left lower chronic injury with dermal sclerosis and tenderness to palpation Psych: Good eye contact, ANO x3, normal speech, appropriate mood and affect [facility] Medical History (Updated 11/17/23 @ 16:10 by Dale Mckeon DO, RES) Tobacco abuse Depression Osteoporosis Osteoarthritis COPD (chronic obstructive pulmonary disease) Family History (Updated 11/17/23 @ 12:47 by Susanna Solano RN) Mother Stomach cancer Brother Colon cancer Social History Smoking Status: Current every day smoker Tobacco Type: cigarettes Substance Use Type: None Meds Medications and Allergies Allergies moxifloxacin [From Avelox] Adverse Reaction (Intermediate, Verified 11/17/23 11:29) Itching codeine Adverse Reaction (Intermediate, Uncoded 11/17/23 11:29) Nightmare demerol Adverse Reaction (Mild, Uncoded 11/17/23 11:29) other Home Medications baclofen 20 mg tablet 10 mg PO BID.WITH.BFAST.LUNCH 11/17/23 [History Confirmed 11/17/23] buspirone 15 mg tablet 15 mg PO TID 11/17/23 [History Confirmed 11/17/23] duloxetine 20 mg capsule,delayed release 40 mg PO QAM 11/17/23 [History Confirmed 11/17/23] gabapentin 100 mg capsule 100 mg PO TID 11/17/23 [History Confirmed 11/17/23] ipratropium 0.5 mg-albuterol 3 mg (2.5 mg base)/3 mL nebulization soln 3 ml inhalation TID 11/17/23 [History Confirmed 11/17/23] levothyroxine 150 mcg tablet 150 mcg PO QAM 11/17/23 [History Confirmed 11/17/23] nabumetone 750 mg tablet 1,500 mg PO QAM 11/17/23 [History Confirmed 11/17/23] spironolactone 25 mg tablet 25 mg PO QAM 11/17/23 [History Confirmed 11/17/23] tramadol 50 mg tablet 100 mg PO QID 11/17/23 [History Confirmed 11/17/23] Exam Physical Exam Vital Signs: Temp Pulse Resp BP Pulse Ox O2 Del Method 98.4 F 77 20 126/67 93 L Room Air 11/17/23 11:43 11/17/23 11:43 11/17/23 11:43 11/17/23 11:43 11/17/23 11:43 11/17/23 11:46 Assessment & Plan Assessment/Plan (1) Acute anemia: (2) Macrocytosis: (3) Weight loss, unintentional: (4) GI bleed: (5) Tobacco abuse: (6) Weakness: Plan 73-year-old female transferred from [facility] for severe anemia, weakness, and GI bleed. Past medical history significant for chronic tobacco abuse, COPD, hypothyroidism, and chronic low back pain treated with NSAIDs. Reports increasing weakness and shortness of breath with difficulty performing ADLs over the past few weeks, melena for 3 weeks, worsening constipation, unintentional 30 pound weight loss over 6 months, and nightly sweats. Prior family history significant for first- degree relatives with stomach and colon cancer. Last colonoscopy 5 to 6 years ago was normal, no prior CT lung cancer screening. 1. Suspect weakness due to severe anemia secondary to GI bleed. Suspect NSAID induced gastric ulcer, but concern for malignancy is high due to her history of unintentional weight loss and sweating. Labs show macrocytosis anemia which do not correlate with GI bleed. Received 2 units PRBC at [place], 500 mL NS, ?Recheck H&H ?Continue Protonix 40 mg twice daily ?GI agreed to EGD ?Consider CT abdomen pelvis/chest pending EGD result ?Check vitamin B12/folate ? n.p.o. midnight 2. Constipation?likely secondary to melena Start docusate/senna MiraLAX twice daily SCDs for DVT prophylaxis, anticoagulation contraindicated N.p.o. after midnight, otherwise normal diet Chronic conditions Hypothyroidism Hyperlipidemia COPD Anxiety I personally saw this patient on the day of the encounter, reviewed the history,performed the jiménez elements of the exam, formulated the plan of care and confirmed the Resident's assessment and plan. Patient endorses taking ibuprofenfor many years, does not always take it with food, she does endorse black tarry stools for the past couple of weeks as well but lately she is having more more constipation. She had normal colonoscopy roughly 6 years ago, given her concernfor constipation, did also initiate MiraLAX twice daily. N.p.o. midnight, GIs been consulted in anticipation of EGD tomorrow. Repeat H&H tonight at 2100, if hemoglobin is less than 7.0, please transfuse. - Frantz iNeves DO IP vs OBS Justification Based on differential dx, clinical care plan, and risk of adverse events, if untreated, in my clinical judgement this patient requires an acute care setting as: INPATIENT because of an expectation of an over 2 midnight stay. Estimated length of stay (# of days): 3 Documented By: Frantz Nieves DO 11/17/23 1542 Signed By: <Electronically signed by Frantz Nieves DO> 11/17/23 1833 <Electronically signed by DO DENISE Mckeon> 11/17/23 1623 [facility] Work Phone: 1(463) 821-684701-30-2024 History of Present illness Narrative* Catracho Sheriff MD - 08/25/2023 10:30 AM EST Patient ID: Jenny Ewing is a 73 y.o. female who presents for: Subjective Jenny Ewing is a 73 y.o. female who [...] 1+ approaching 2+ in the left leg and1+ in the right leg. There is more of a violaceous hue than a true redness. There is no significantincreasing calor. No open lesions. Adequate capillary refill. Clinisync Result Encounter on 08/11/2023 Component Date Value Ref Range Status SODIUM 08/11/2023 136 136 - 145 mmol/L Final OSMOLALITY 08/11/2023 275 (A) 280 - 301 mOsmol/kg Final Comment: Performed at: [facility] [id number] [place] Buffer: Arleen Wong MD, Phone: [phone] OSMOLALITY, URINE 08/11/2023 552 . mOsmol/kg Final Comment: 24 hr : 300 - 900 Random: 50 - 1400 After 12hr fluid restriction: >850 Performed at: [facility] [address] [id number] [place] Buffer: Arleen Wong MD, Phone: [phone] Clinisync Result Encounter on 08/04/2023 Component Date [...] 0.55 - 1.02 mg/dL Final [facility]H EGFR-AF [place] 08/04/2023 >60 >=60 Final [facility] EGFR-NON AF [place] 08/04/2023 >60 >=60 Final BUN CREATININE RATIO [...] the morning, One half tablet at lunch, and2 tablets in the evening busPIRone (Buspar) 15 [...] gluconate 50 mg, Oral, See admin instructions, 1/2 tablet= 25mg Orally Once a day [...] there is no evidence of aberrant behavior orabuse. Continuation of the patient's current treatment plan appears to be medically appropriate, providinga degree of relief of the patient's symptoms [...] call if any other questions arise or ifany problems occur with the renewal of their medication. (Utilizing the original 1994/1996 guidelines or the 2020 new office/outpatient code guidelines for selecting the level of E/M service, In both sets of guidelines, prescription drug management appearsin the moderate medical decision making (MDM) row. Neither the original guidelines nor the new guidelines state that a new prescription or change is needed in order to credit prescription drug management) Chronic respiratory failure with hypoxia (CMS/HCC) - Handicap Placard Lifetime Chronic problem that [...] to the emergency room. documented in this encounterNOMS HealthcareDischarge summary Author Jaspal Whalen [facility] November 21, 2023 1:44pm Note Date/Time November 21, 2023 1:4 4pm [facility] [address] [place] [address] Discharge Summary Signed Patient: Jenny Ewing MR#: [id number] : 1950 Acct:[id number] Age/Sex: 73 / F Adm Date: 4 Loc: Room: [address] [place] [address]: Jaspal Whalen MD Copies to: MD Catracho Segura MD~ Providers Date of Discharge: 11/21/23 Discharging Provider: Jaspal Whalen Primary Care Provider: Catracho Sheriff Consults: 11/17/23 14:15 Consult to Gastroenterology Routine Comment: Consulting Provider: Seun Freitas Reason For Exam: anemia 4.8, occult + stool Has Provider Been Notified: Yes Date of Notification: 11/17/23 Time of Notification: 14:50 11/17/23 16:23 Consult to Physical Therapy Routine Comment: Physician Instructions: Consult to PT for:: Evaluation and Treat Extended Comment: weakness 11/17/23 18:31 Consult to Occupational Therapy Routine Comment: Physician Instructions: Consult to OT for:: Evaluation and Treat Discharge Diagnosis Final Diagnosis Final Discharge Diagnosis: Duodenal ulcer with severe anemia of subacute GI blood loss Chronic problems Cerebrovascular disease and history of stroke and TIA COPD Chronic low back pain Osteoporosis Depression Tobacco abuse Summary Hospital Course Hospital course: Patient is a 73-year-old female, who was transferred to us from [facility], where she presented with weakness in the legs in the fall. Evaluation showed severe anemia, hemoglobin 4.8. Patient had been taking NSAIDs for chronic low back pain. Patient was admitted to the hospital, was seen by GI, and on November 17 she underwent upper endoscopy. There was evidence of a large 4 cm duodenal ulcer, with a nonbleeding visible vessel. This was treated by injection with epinephrine and electrocoagulation followed by clipping. There were no further evidence of bleeding. Patient was discharged uneventfully in stable condition on November 20. H. pylori testing is pending at time of discharge. She will continue oral PPI, and was advised to no longer take NSAIDs on a regular basis. Follow-up with PCP and GI for repeat endoscopy. Oral supplementation with iron was given. Time Spent with Patient Time spent providing/coordinating discharge services (# min): 30 Surgeries and Procedures Operation Date: 11/18/23 11:35 Actual Procedures p DH EGD(Not Applicable) - Seun Freitas MD Discharge Plan Discharge Plan Patient Disposition: Home Activity: No Activity Restriction Diet: Regular Instructions: Duodenal Ulcer (DC), Pantoprazole, Polysaccharide-Iron Complex Prescriptions: New pantoprazole [Protonix] 40 mg tablet,delayed release (DR/EC) 40 mg PO BID 90 Days Qty: 180 0RF Rx Instructions: 40 mg po bid x 4 weeks then 40 mg po daily; pls dispense accordingly polysaccharide iron complex 150 mg iron capsule 150 mg PO Q48HR Qty: 60 0RF Continued baclofen 20 mg tablet 10 mg PO BID.WITH.BFAST.LUNCH Patient Comments: takes 10mg with breakfast and lunch and 2 tabs at bedtime duloxetine 20 mg capsule,delayed release(DR/EC) 40 mg PO QAM gabapentin 100 mg capsule 100 mg PO TID Rx Instructions: morning, evening and bedtime ipratropium-albuterol 0.5 mg-3 mg(2.5 mg base)/3 mL solution for nebulization 3 ml INHALATION TID levothyroxine 150 mcg tablet 150 mcg PO QAM spironolactone 25 mg tablet 25 mg PO QAM tramadol 50 mg tablet 100 mg PO QID buspirone 15 mg tablet 15 mg PO TID Rx Instructions: take 1 tab at bedtime 1 tab at lunch and 2 tabs at bedtime Discontinued nabumetone 750 mg tablet 1,500 mg PO QAM Follow Up: Catracho Sheriff MD [Primary Care Provider] - (Office is currently closed. Call office on Thursday to schedule follow-up with your Primary Care Provider in 3-5 days. ) Seun Freitas MD [Active Staff] - (Dr. Freitas's office will arrange repeat EGD in 4 weeks to assess ulcer healing. ) Exam Physical Exam Vital Signs: Temp Pulse Resp BP Pulse Ox O2 Del Method O2 Flow Rate 97.7 F 73 20 108/54 L 96 Room Air 2 11/21/23 07:47 11/21/23 13:14 11/21/23 13:14 11/21/23 12:00 11/21/23 12:00 11/21/23 12:00 11/19/23 00:00 Diagnostic Studies Completed and Pending Studies Pending studies at discharge: 11/20/23 11:41 H Pylori Stool Ag, EIA Routine 11/22/23 05:00 Hemogram CBC Without Diff IN AM 11/23/23 05:00 Hemogram CBC Without Diff IN AM Labs on day of discharge: 11/21/23 06:06: Corrected WBC 8.8, RBC 2.94 L, Hgb 9.2 L, Hct 27.4 L, MCV 93.2, MCH 31.3, MCHC 33.6, RDW 16.3 H, Plt Count 377, MPV 7.7, Iron 20 L, TIBC 333, Iron Saturation 6.0 L, Transferrin 238, Ferritin 40.6 Documented By: Jaspal Whalen MD 11/21/23 1339 Signed By: <Electronically signed by Jaspal Whalen MD> 11/21/23 1344 [facility] Work Phone: Evaluation note* Diagnosis Chronic pain syndrome- Primary Chronic respiratory failure with hypoxia (CMS/HCC) Dependence on supplemental oxygen Stasis dermatitis of both legs Arthritis of both knees documented in this encounter NOMS HealthcareEvaluation note* Diagnosis Onset Date Resolution Status Acute anemia acute Duodenal ulcer acute Excessive use of nonsteroida l anti-inflammatory drugs (NSAIDs) acute GI bleed acute Macrocytosis acute Tobacco abuse acute Weakness acute Weight loss, unintentional a cute [facility] Work Phone: Summary Purpose Family History No Family History Records Found Relationship Condition Age at Onset Recorded Date/T nelly Not Specified Malignant neoplasm of stomach Unknown brother Malignant neoplasm of colon Unknown Advance Directives No Advanced Directives Records Found Advance Directive Response Recorded Date/ Time Advance Directives No November 16, 024 5:27am Chief Complaint and Reason for Visit Chief Complaint GI Bleed and anemia GI Bleed and anemia GI Bleed and anemia Reason for Visit Acute anemia Duodenal ulcer Excessive use of nonsteroidal anti-inflammatory drugs (NSAIDs) GI bleed Macrocytosis Tobacco abuse Weakness Weight loss, unintentional Additional Source Comments INFORMATION SOURCE (unrecogn ized section and content) DATE CREATED AUTHOR 08/29/2022 [facility] DATE CREATED AUTHOR AUTHOR'S ORGANIZ ATION 11/04/2023 [facility] EPIC DATE CREATED AUTHOR AUTHOR'S ORGANIZ ATION 11/23/2023 [facility] Reason for Visit (unrecogniz ed section and content) Reason Comments Recurrent Skin Infections Care Teams (unrecognized sec tion and content) 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 Relationship Specialty Start Date End Date Catracho Sheriff MD [address] [place] [address] PCP - [employer] 07/27/22 Catracho Sheriff MD [address] [place] [id number] PCP - General Family Medicine 01/05/23 Team Status: Active Member Role Status Dates Catracho Sheriff MD Primary Care Provider Active Team Status: Inactive Member Role Status Dates Catracho Sheriff MD Primary Care Provider Active Start: November 17, 2023 End: November 21, 2023 Frantz Nieves DO Admit Provider Active Start: November 17, 2023 End: November 21, 2023 Jaspal Whalen MD Attending Provider Active St art: November 17, 2023 End: November 21, 2023 Seun Freitas MD Other Provider Active Start: Oct End: November 21, 2023 Team Status: Active Member Role Status Dates Catracho Sheriff MD Primary Care Provider Active Start: November 17, 2023 Frantz Nieves DO Admit Provider, Atte nding Provider, Other Provider Active Start: November 17, 2023 Seun Freitas MD Other Provider Active Start: Oct Team Status: Active Member Role Status Dates Catracho Sheriff MD Primary Care Provider Active Start: November 17, 2023 Frantz Nieves DO Admit Provider, Other Provider Act agapito Start: November 17, 2023 Seun Freitas MD Attending Provider, Other Provider Active Start: November 17, 2023 FOR RECORDS PERTAINING TO PATIENTS WHO ARE [...] BE BASED ON THE PRIMARY CLINICAL RECORDS. [facility]. provides no warranty or guarantee of the accuracy or completeness of information in this document.
[2023-11-24 21:37] LABS: Basophils Percent Auto 0.2 % (0.2-2.0); Eosinophils Absolute Auto 0.1 10^3/uL (0.0-0.7); Eosinophils Percent Auto 0.8 % (0.9-7.0); Immature Granulocytes Abs Auto 0.06 10^3/uL (0.00-0.03); Immature Granulocytes Pct Auto 0.7 % (0.0-0.5); Lymphocytes Absolute Auto 2.1 10^3/uL (1.2-3.8); Lymphocytes Percent Auto 23.2 % (20.5-60.0); Mean Corpuscular HGB Conc 31.5 g/dL (29.9-35.2); Mean Corpuscular Hemoglobin 31.7 pg (26.7-34.0); Mean Corpuscular Volume 100.8 fL (81.0-99.0); Mean Platelet Volume 11.3 fL (9.5-13.5); Monocytes Absolute Auto 0.7 10^3/uL (0.3-0.8); Monocytes Percent Auto 7.8 % (1.7-12.0); Neutrophils Absolute Auto 6.2 10^3/uL (1.4-6.5); Neutrophils Percent Auto 67.3 % (43.0-75.0); Platelet Count 227 10^3/uL (150-450); Red Blood Count 1.26 10^6/uL (4.20-5.40); Red Cell Distribution Width 19.6 % (11.0-15.0); White Blood Count 9.2 10^3/uL (4.0-11.0)
[2023-11-24 21:45] LABS: Hematocrit 12.7 % (36.0-48.0)
--- NOTE | 2023-11-24 21:51 | ED_ITS ---
HPI - GI Bleed General Chief complaint: GI Bleed Stated complaint: Fall Time Seen by Provider: 11/24/23 21:21 Source: patient Mode of arrival: ambulance History of Present Illness HPI Narrative: 73-year-old female presents to the emergency department for weakness and a fall. She fell at home because she was weak but did not hurt herself in any fashion. She was found by the paramedics to have a large amount of black stool and she was hypotensive and pale. Within the last week she was at this emergency department with heme positive stool and hemoglobin of 4.8 and then at the patient's request was transferred to [facility] where she was found to have a duodenal ulcer and had endoscopic repair. The patient states she had to have a blood transfusion. The patient states she had brown stool when she left the hospital 3 days ago. The black stool started within the last day and there was a copious amount according to the paramedics. She does not seem to have any abdominal or chest pain. Related Data Home Medications ?Medication ?Instructions ?Recorded ?Confirmed baclofen 20 mg tablet 20 mg PO Q8H 11/17/23 11/17/23 buspirone 15 mg tablet 15 mg PO TID 11/17/23 11/17/23 Allergies Allergy/AdvReac Type Severity Reaction Status Date / Time morphine Allergy Unknown Verified 11/24/23 21:27 moxifloxacin [From Avelox] Allergy Hives Verified 11/17/23 03:44 codeine AdvReac Verified 11/17/23 03:44 Review of Systems ROS Narrative A ten point review of systems is negative except as noted above. Exam Narrative Exam Narrative: Nurses note and vital signs reviewed and patient is not hypoxic. General: The patient appears in no respiratory distress. She is conversant Skin: Warm, dry, pallor noted. There is no rash noted. Head: Normocephalic, atraumatic Eye: Conjunctiva pale Ears, Nose, Mouth, and Throat: oral mucosa is moist. Nares patent. Cardiovascular: Regular Rate and Rhythm, not tachycardic Respiratory: Patient is in no distress, no accessory muscle use, lungs are clear to auscultation, no wheezing, rales or rhonchi Back: non-tender GI: Soft and nontender Musculoskeletal: The patient has no evidence of calf tenderness, no pitting edema, symmetrical pulses noted bilaterally Neurological: A&O x4, normal speech Psychiatric: Cooperative Constitutional Vital Signs, click to edit/add: Last Vital Signs Temp 97 F L 11/24/23 23:30 Pulse 93 H 11/24/23 23:30 Resp 13 11/24/23 23:30 BP 90/44 L 11/24/23 23:30 Pulse Ox 100 11/24/23 23:30 O2 Del Method Room Air 11/24/23 21:24 Course Vital Signs Vital signs: Vital Signs Pulse Oximetry 94 L 11/24/23 21:23 Temperature 97 F L 11/24/23 23:30 Pulse Rate 93 H 11/24/23 23:30 Respiratory Rate 13 11/24/23 23:30 Blood Pressure 90/44 L 11/24/23 23:30 Pulse Oximetry 100 11/24/23 23:30 Oxygen Delivery Method Room Air 11/24/23 21:24 MDM - GI Bleed MDM Narrative Medical decision making narrative: Hemoglobin is 4.0. She was ordered IV Protonix and blood transfusion. She is requesting transfer to [facility] and she is agreeable and stable for transfer. I spoke to the hospitalist at [facility]. He reviewed her chart and the manager lan at the time, who had done the endoscopy and clipped the artery, suggested that if she has a rebleed that she would need to have interventional radiology. [facility] does not have interventional radiology and the patient is requesting transfer to [facility]. I have spoken to the hospitalist service as well as Dr Ugarte from GI at [facility]. The patient is excepted there and the patient is agreeable for transfer. She is placed on an IV Protonix drip and is receiving blood and her blood pressure is improving. Differential Diagnosis Differential diagnosis: Likely esophageal varices, Carmen-Ryder syndrome and other (Upper GI bleed, lower GI bleed, anemia) Lab Data Attestation: I reviewed the patient's lab results. Labs: Lab Results 11/24/23 11/24/23 Range/Units 21:25 21:45 WBC 9.2 (4.0-11.0) 10^3/uL RBC 1.26 L (4.20-5.40) 10^6/uL Hgb 4.0 L* (12.0-16.0) g/dL Hct 12.7 L* (36.0-48.0) % MCV 100.8 H (81.0-99.0) fL MCH 31.7 (26.7-34.0) pg MCHC 31.5 (29.9-35.2) g/dL RDW 19.6 H (11.0-15.0) % Plt Count 227 (150-450) 10^3/uL MPV 11.3 (9.5-13.5) fL Neut % (Auto) 67.3 (43.0-75.0) % Lymph % (Auto) 23.2 (20.5-60.0) % [place] % (Auto) 7.8 (1.7-12.0) % Eos % (Auto) 0.8 L (0.9-7.0) % Baso % (Auto) 0.2 (0.2-2.0) % Neut # (Auto) 6.2 (1.4-6.5) 10^3/uL Lymph # (Auto) 2.1 (1.2-3.8) 10^3/uL [place] # (Auto) 0.7 (0.3-0.8) 10^3/uL Eos # (Auto) 0.1 (0.0-0.7) 10^3/uL Baso # (Auto) 0.0 (0.0-0.1) 10^3/uL Abs Immat Gran (auto) 0.06 H (0.00-0.03) 10^3/uL Imm/Tot Granulo (auto) 0.7 H (0.0-0.5) % PT 11.4 (9.0-11.6) sec INR 1.08 APTT 22.3 (22.3-36.2) sec Sodium 137 (136-145) mmol/L Potassium 3.2 L (3.5-5.1) mmol/L Chloride 106 (98-107) mmol/L Carbon Dioxide 24.6 (21.0-32.0) mmol/L Anion Gap 9.6 BUN 15.0 (7.0-18.0) mg/dL Creatinine 0.58 (0.55-1.02) mg/dL Est GFR ( Amer) >60 (>=60) Est GFR (Non-Af Amer) >60 (>=60) BUN/Creatinine Ratio 25.9 Glucose 132 H (74-106) mg/dL Calcium 7.0 L (8.5-10.1) mg/dL Total Bilirubin 0.1 L (0.2-1.0) mg/dL Direct Bilirubin 0.1 (0.0-0.2) mg/dL AST 18 (15-37) U/L ALT 19 (14-59) U/L Alkaline Phosphatase 49 (46-116) U/L Total Protein 3.3 L (6.4-8.2) g/dL Albumin 1.2 L (3.4-5.0) g/dL Globulin 2.1 g/dL Albumin/Globulin Ratio 0.6 Amylase 18 L (25-115) U/L Lipase 17.0 (16.0-77.0) U/L Stool Occult Blood Positive A Blood Type A Positive Antibody Screen Negative Crossmatch See Detail ECG Data Attestation: I personally reviewed and interpreted this ECG as follows: (EKG on my interpretation shows sinus rhythm with a rate of 82 and no acute findings) Critical Care Time Critical Care Time Critical Care Time: Yes Total Critical Care Time: 40 Attestation: Due to the high probability of sudden and clinically significant deterioration in the patient's condition he/she required the highest level of my preparedness to intervene urgently I provided critical care time including documentation time, medication orders and management, reevaluation, vital sign assessment, ordering and reviewing of lab tests, ordering and reviewing of x-ray studies, and admission orders. Aggregate critical care time is 40 minutes including only time during which I was engaged in work directly related to his/her care and did not include time spent treating other patients simultaneously. Discharge Plan Discharge Chief Complaint: GI Bleed Clinical Impression: GI bleed, Anemia Patient Disposition: [facility] Time of Disposition Decision: 21:50 Discharge Location: [facility] Condition: Fair Mode of Transportation: EMS
[2023-11-24 21:55] LABS: INR 1.08; Partial Thromboplastin Time 22.3 sec (22.3-36.2); Prothrombin Time 11.4 sec (9.0-11.6)
[2023-11-24 21:58] LABS: Alanine Aminotransferase 19 U/L (14-59); Albumin Globulin Ratio 0.6; Albumin Level 1.2 g/dL (3.4-5.0); Alkaline Phosphatase 49 U/L (46-116); Amylase 18 U/L (25-115); Anion Gap 9.6; Aspartate Amino Transferase 18 U/L (15-37); BUN Creatinine Ratio 25.9; Bilirubin Direct 0.1 mg/dL (0.0-0.2); Bilirubin Total 0.1 mg/dL (0.2-1.0); Carbon Dioxide 24.6 mmol/L (21.0-32.0); Chloride 106 mmol/L (98-107); Estimated GFR (African America >60 (>=60); Estimated GFR (Non-African Ame >60 (>=60); Globulin 2.1 g/dL; Glucose 132 mg/dL (74-106); Potassium 3.2 mmol/L (3.5-5.1); Sodium 137 mmol/L (136-145); Total Protein 3.3 g/dL (6.4-8.2)
[2023-11-24] MEDS: 0.9 % SODIUM CHLORIDE 1,000 ML 1000 ML IV (22:03)
[2023-11-24] MEDS: PANTOPRAZOLE SODIUM 40 MG VIAL IV (22:03)
[2023-11-24 22:30] LABS: Occult Blood Positive
[2023-11-24] MEDS: 0.9 % SODIUM CHLORIDE 250 ML IV.SOLN IV (23:03)
[2023-11-24] MEDS: PANTOPRAZOLE SODIUM 80 MG in 0.9 % SODIUM CHLORIDE 100 ML 10 MG IV (23:49)
[2023-11-25] VITALS (23 sets, daily range): BP systolic 79–113; BP diastolic 36–61; PULSE 74–103; TEMP 36.6–36.9; O2SAT 95–100
== END 2023-11-25 02:47 | disposition short-term general hospital (02) ==
PROVIDERS: Emergency Provider Emergency Medicine; PCP Family Medicine
DX: D64.9 Anemia, unspecified (principal); K92.2 Gastrointestinal hemorrhage, unspecified; Z91.81 History of falling; Z79.899 Other long term (current) drug therapy
CPT/HCPCS: 36415; 36430; 80048; 80076; 82150; 83690; 85025; 85610; 85730; 86850; 86900; 86901; 93005; 96361; 96374; 96376; 99285; G0328; P9016

== ENCOUNTER 2023-12-29 12:34 | Outpatient (OUT) | payer MEDICARE, SELFPAY ==
[2023-12-29 13:04] LABS: Basophils Absolute Auto 0.1 10^3/uL (0.0-0.1); Basophils Percent Auto 1.5 % (0.2-2.0); Eosinophils Absolute Auto 0.3 10^3/uL (0.0-0.7); Eosinophils Percent Auto 3.9 % (0.9-7.0); Hematocrit 26.4 % (36.0-48.0); Hemoglobin 7.9 g/dL (12.0-16.0); Immature Granulocytes Abs Auto 0.02 10^3/uL (0.00-0.03); Immature Granulocytes Pct Auto 0.3 % (0.0-0.5); Lymphocytes Absolute Auto 1.4 10^3/uL (1.2-3.8); Lymphocytes Percent Auto 20.4 % (20.5-60.0); Mean Corpuscular HGB Conc 29.9 g/dL (29.9-35.2); Mean Corpuscular Hemoglobin 27.1 pg (26.7-34.0); Mean Corpuscular Volume 90.7 fL (81.0-99.0); Mean Platelet Volume 10.7 fL (9.5-13.5); Monocytes Absolute Auto 0.9 10^3/uL (0.3-0.8); Neutrophils Percent Auto 60.9 % (43.0-75.0); Platelet Count 408 10^3/uL (150-450); Red Blood Count 2.91 10^6/uL (4.20-5.40); Red Cell Distribution Width 15.8 % (11.0-15.0); White Blood Count 6.6 10^3/uL (4.0-11.0)
[2023-12-29 15:08] LABS: Alanine Aminotransferase 17 U/L (14-59); Albumin Globulin Ratio 0.7; Albumin Level 2.9 g/dL (3.4-5.0); Alkaline Phosphatase 103 U/L (46-116); Anion Gap 12.1; Aspartate Amino Transferase 18 U/L (15-37); Bilirubin Total 0.2 mg/dL (0.2-1.0); Calcium 9.1 mg/dL (8.5-10.1); Carbon Dioxide 28.3 mmol/L (21.0-32.0); Chloride 104 mmol/L (98-107); Estimated GFR (African America >60 (>=60); Estimated GFR (Non-African Ame >60 (>=60); Globulin 3.9 g/dL; Glucose 94 mg/dL (74-106); Potassium 4.4 mmol/L (3.5-5.1); Sodium 140 mmol/L (136-145); Total Protein 6.8 g/dL (6.4-8.2)
== END 2023-12-29 12:35 | disposition home or self-care (01) ==
LOC: LAB 12:35
PROVIDERS: PCP Family Medicine; Visit Provider Family Medicine
DX: D62 Acute posthemorrhagic anemia (principal); E88.09 Other disorders of plasma-protein metabolism, not elsewhere classified; E83.52 Hypercalcemia; E87.6 Hypokalemia
CPT/HCPCS: 36415; 80053; 85025

== ENCOUNTER 2024-01-01 10:00 | Outpatient (OUT) | payer MEDICARE, SELFPAY ==
[2024-01-01 12:32] LABS: Percent Iron Saturation 2.3 %
== END 2024-01-01 10:01 | disposition home or self-care (01) ==
LOC: LAB 10:03
PROVIDERS: PCP Family Medicine; Visit Provider Family Medicine
DX: D62 Acute posthemorrhagic anemia (principal)
CPT/HCPCS: 36415; 83540; 83550

== ENCOUNTER 2024-01-22 07:31 | Outpatient (RCR) | payer MEDICARE, SELFPAY ==
[2024-01-22 10:05] VITALS: BP 133/60; PULSE 83; TEMP 36.7; O2SAT 94
[2024-01-22] MEDS: FERRIC CARBOXYMALTOSE 750 MG in 0.9 % SODIUM CHLORIDE 250 ML 795 MG IV (10:22)
--- NOTE | 2024-01-22 10:48 | PC.NURSE ---
Patient is here for injectafer infusion. Vitals obtained and stable, 22g in her left forearm was started with good blood return and denies any pain. Pt tolerated infusion well and denies any complaints at this time. IV discontinued and denies any pain, redness at the site.
== END 2024-01-22 10:48 | disposition home or self-care (01) ==
LOC: INF 07:31
PROVIDERS: PCP Family Medicine; Visit Provider Family Medicine
DX: D62 Acute posthemorrhagic anemia (principal)
CPT/HCPCS: 96365; J1439

== ENCOUNTER 2024-01-25 18:06 | Outpatient (OUT) | payer MEDICARE, MEDICAID, SELFPAY ==
--- NOTE | 2024-01-25 18:16 | XR_ITS ---
The [address] [address] Patient Name: JOE PEACOCK MRN: [id number] date: 1950 Sex: F Assigned Patient Location: [facility] Current Patient Location: [facility] Accession/Order Number: [id number] Exam Date: 01/25/2024 18:17 Report Date: 01/27/2024 07:02 At the request of: ASHLEY SHERIFF Procedure: XR wrist LT 2V PROCEDURE: XR forearm LT 2V, XR elbow LT 2V, XR wrist LT 2V HISTORY: fall, subsequent encounter COMPARISON: None. FINDINGS: BONES:Small corticated ossification adjacent the tip of the ulnar coronoid process favoring sequela of remote injury. Joint space narrowing and subchondral sclerosis involving the first carpal-metacarpal joint. SOFT TISSUES:No visible soft tissue swelling. EFFUSION:None visible. OTHER: Negative. XR/XR wrist LT 2V IMPRESSION: 1. No appreciable acute bone abnormality. 2. Suspect remote fracture or cortical avulsion involving tip of ulnar coronoid process at the elbow. 3. 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 Electronically authenticated by: TAMI ROBERTSON Date: 01/27/2024 07:02
--- NOTE | 2024-01-25 18:17 | XR_ITS ---
The [address] [address] Patient Name: JOE PEACOCK MRN: [id number] date: 1950 Sex: F Assigned Patient Location: [facility] Current Patient Location: [facility] Accession/Order Number: [id number] Exam Date: 01/25/2024 18:17 Report Date: 01/27/2024 07:02 At the request of: ASHLEY SHERIFF Procedure: XR forearm LT 2V PROCEDURE: XR forearm LT 2V, XR elbow LT 2V, XR wrist LT 2V HISTORY: fall, subsequent encounter COMPARISON: None. FINDINGS: BONES:Small corticated ossification adjacent the tip of the ulnar coronoid process favoring sequela of remote injury. Joint space narrowing and subchondral sclerosis involving the first carpal-metacarpal joint. SOFT TISSUES:No visible soft tissue swelling. EFFUSION:None visible. OTHER: Negative. XR/XR forearm LT 2V IMPRESSION: 1. No appreciable acute bone abnormality. 2. Suspect remote fracture or cortical avulsion involving tip of ulnar coronoid process at the elbow. 3. 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 Electronically authenticated by: TAMI ROBERTSON Date: 01/27/2024 07:02
--- NOTE | 2024-01-25 18:17 | XR_ITS ---
The [address] [address] Patient Name: JOE PEACOCK MRN: [id number] date: 1950 Sex: F Assigned Patient Location: [facility] Current Patient Location: [facility] Accession/Order Number: [id number] Exam Date: 01/25/2024 18:17 Report Date: 01/27/2024 07:02 At the request of: ASHLEY SHERIFF Procedure: XR elbow LT 2V PROCEDURE: XR forearm LT 2V, XR elbow LT 2V, XR wrist LT 2V HISTORY: fall, subsequent encounter COMPARISON: None. FINDINGS: BONES:Small corticated ossification adjacent the tip of the ulnar coronoid process favoring sequela of remote injury. Joint space narrowing and subchondral sclerosis involving the first carpal-metacarpal joint. SOFT TISSUES:No visible soft tissue swelling. EFFUSION:None visible. OTHER: Negative. XR/XR elbow LT 2V IMPRESSION: 1. No appreciable acute bone abnormality. 2. Suspect remote fracture or cortical avulsion involving tip of ulnar coronoid process at the elbow. 3. 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 Electronically authenticated by: TAMI ROBERTSON Date: 01/27/2024 07:02
== END 2024-01-25 18:07 | disposition home or self-care (01) ==
PROVIDERS: PCP Family Medicine; Visit Provider Family Medicine
DX: M25.532 Pain in left wrist (principal); W19.XXXD Unspecified fall, subsequent encounter; M79.632 Pain in left forearm; M25.522 Pain in left elbow
CPT/HCPCS: 73070; 73090; 73100

== ENCOUNTER 2024-02-04 07:32 | Outpatient (RCR) | payer MEDICARE, MEDICAID, SELFPAY ==
[2024-02-04 09:30] VITALS: BP 118/72; PULSE 97; TEMP 36.9; O2SAT 93
[2024-02-04] MEDS: FERRIC CARBOXYMALTOSE 750 MG in 0.9 % SODIUM CHLORIDE 250 ML 795 MG IV (09:53)
--- NOTE | 2024-02-04 09:59 | PC.NURSE ---
0930: Pt. brought to [facility] via w/c per. volunteer. Seated in recliner. Pt. with O2 at 1.5L n/c. VSS. IV initiated to right arm, see documentation. Pt tolerated without c/o. Given crackers with peanut butter and Starry soda. Relays comfort, denies needs.
--- NOTE | 2024-02-04 10:01 | PC.NURSE ---
0953: IV iron initiated at this time. See MAR.
[2024-02-04 10:08] LABS: Anion Gap 11.2; BUN Creatinine Ratio 16.7; Calcium 8.3 mg/dL (8.5-10.1); Carbon Dioxide 29.9 mmol/L (21.0-32.0); Chloride 98 mmol/L (98-107); Estimated GFR (African America >60 (>=60); Estimated GFR (Non-African Ame >60 (>=60); Glucose 121 mg/dL (74-106); Potassium 4.1 mmol/L (3.5-5.1); Sodium 135 mmol/L (136-145)
--- NOTE | 2024-02-04 10:24 | PC.NURSE ---
1016: Injectafer completed at this time. Pt. without s&s of adverse reaction. IV d/c'd pressure to site. Tolerated well. 1018: Pt taken via w/c per this RN to patient entrance. Pt. d/c'd to home in taxi.
== END 2024-02-04 15:39 | disposition home or self-care (01) ==
LOC: INF 07:32
PROVIDERS: PCP Family Medicine; Visit Provider Family Medicine
DX: D62 Acute posthemorrhagic anemia (principal); Z79.899 Other long term (current) drug therapy; R60.0 Localized edema
CPT/HCPCS: 80048; 96365; J1439

== ENCOUNTER 2024-07-06 11:54 | Outpatient (OUT) | payer MEDICARE, SELFPAY ==
[2024-07-06 12:07] LABS: Hemoglobin 14.5 g/dL (12.0-16.0)
[2024-07-06 13:43] LABS: Percent Iron Saturation 15.4 %
[2024-07-06 13:51] LABS: Alanine Aminotransferase 24 U/L (14-59); Albumin Globulin Ratio 0.8; Albumin Level 3.3 g/dL (3.4-5.0); Alkaline Phosphatase 107 U/L (46-116); Anion Gap 11.6; Aspartate Amino Transferase 20 U/L (15-37); BUN Creatinine Ratio 18.4; Bilirubin Total 0.4 mg/dL (0.2-1.0); Carbon Dioxide 29.6 mmol/L (21.0-32.0); Chloride 102 mmol/L (98-107); Chol HDL Ratio 2.6; Cholesterol 199 mg/dL (<=200); Estimated GFR (African America >60 (>=60 mL/min/1.73m^2); Estimated GFR (Non-African Ame >60 (>=60 mL/min/1.73m^2); Globulin 4.2 g/dL; Glucose 99 mg/dL (74-106); HDL Cholesterol 78 mg/dL (40-60); Potassium 4.2 mmol/L (3.5-5.1); Sodium 139 mmol/L (136-145); Thyroid Stimulating Hormone 6.069 uIU/mL (0.358-3.740); Total Protein 7.5 g/dL (6.4-8.2); Triglycerides 44 mg/dL (<=150); VLDL CHOLESTEROL 8.8 mg/dL
[2024-07-06 14:31] LABS: Free T4 1.11 ng/dL (0.76-1.46)
[2024-07-07 08:10] LABS: Transferrin 372 mg/dL (192-364)
== END 2024-07-06 11:55 | disposition home or self-care (01) ==
LOC: LAB 11:54
PROVIDERS: PCP Family Medicine; Visit Provider Family Medicine
DX: D64.9 Anemia, unspecified (principal); N18.2 Chronic kidney disease, stage 2 (mild); R77.0 Abnormality of albumin; Z13.220 Encounter for screening for lipoid disorders; E89.0 Postprocedural hypothyroidism
CPT/HCPCS: 36415; 80053; 80061; 83540; 83550; 84439; 84443; 84466; 85018

== ENCOUNTER 2024-09-28 00:02 | Emergency (ER) | payer MEDICARE, SELFPAY ==
[2024-09-28 00:07] VITALS: BP 149/59; PULSE 80; TEMP 37; O2SAT 95; BMI 22.9
--- OUTSIDE RECORDS SUMMARY | 2024-09-28 00:15 | XMS_ITS | CCD ---
Author Organization [facility] Inform ion Partnership [facility] Care Team Providers Care Route Clerk Name Role Phone JAZIEL, DR RAMIREZ Primary Care Unavailable JAZIEL, DR RAMIREZ Admitting Unavailable JAZIEL, DR RAMIREZ Attending Unavailable JAZIEL, DR RAMIREZ Consulting Unavailable JAZIEL, DR RAMIREZ Admitting Unavailable JAZIEL, DR RAMIREZ Attending Unavailable JAZIEL, DR RAMIREZ Consulting Unavailable JAZIEL, DR RAMIREZ Primary Care Unavailable Catracho Sheriff MD Unavailable [phone] Catracho Sheriff MD Primary Care Provider [phone] MD Catracho Sheriff Primary Care Provider DO Frantz Nieves Admit Provider MD Jaspal Whalen Attending Provider MD Fortino Imkrystina Other Provider Catracho Sheriff Primary Care Unavailable Jaspal Whalen Attending Unavailable Frantz Nieves Admitting Unavailable Seun Freitas Consulting Unavailable Unavailable Primary Care Provider UnavailCAROL Briscoe Attending Unavailable NICKY UGARTE Consulting Unavailable LIZZY ROCHA Referring Unavailable TAMEKA, ARNAUD Admitting Unavailable RUIZ, ZAINULABEDIN Consulting Unavailable DABOUL, ISAM Consulting Unavailable ALVIN, THERESE Consulting Unavailable Catracho Sheriff MD Primary Care Provider Payal Gaona DO Unavailable Dionne RN, Amiee Unavailable Catracho Sheriff MD Unavailable [phone] Catracho Sheriff MD Primary Care Provider Catracho Sheriff MD Unavailable [phone] Catracho Sheriff MD Primary Care Provider [phone] HEMEYER, CATRACHO J Attending Unavailable HEMEYER, EDWARD J Attending Unavailable HEMEYER, EDWARD J Attending Unavailable HEMEYER, EDDEON J Attending Unavailable HEMEYER, EDDEON J Attending Unavailable HEMEYER, EDDEON J Attending Unavailable HEMEYER, EDDEON J Attending Unavailable HEMEYER, EDDEON J Attending Unavailable LEONILA ZAPATA Attending Unavailable LEONILA ZAPATA Attending Unavailable HEMEYER, EDDEON J Attending Unavailable HEMEYER, EDDEON J Attending Unavailable HEMEYER, EDDEON J Attending Unavailable HEMEYER, EDDEON J Attending Unavailable HEMEYER, EDDEON J Attending Unavailable HEMEYER, EDDEON J Primary Care Unavailable HEMEYER, EDDEON J Primary Care Unavailable SHANEL, AIJAZ Attending Unavailable SHANEL, AIJAZ Admitting Unavailable SHANEL, AIJAZ Attending Unavailable SHANEL, AIJAZ Admitting Unavailable HEMEYER, EDWARD J Primary Care Unavailable HEMEYER, EDDEON J Primary Care Unavailable HEMEYER, EDDEON J Primary Care Unavailable Catracho Sheriff MD Primary Care Provider Allergies Allergy Classification Reported Allergen(s) Allergy Type Date of Onset Reaction(s) Facility (1 source) Cephalexin Drug Allergy 11-29-19 14 [facility] (1 source) Iron Drug Allergy 07-03-20 15 [facility] (1 source) moxifloxacin Drug Allergy 07-14-20 13 [facility] (1 source) Penicillins Drug allergy (disorder) 07-14-20 13 [facility] (1 source) Sulfonamides (Antibiotic) Drug allergy (disorder) 07-14-20 13 [facility] (1 source) varenicline Drug Allergy 11-29-19 14 [facility] (20 sources) busPIRone Drug Allergy 01-15-20 23 [facility] (20 sources) Cephalexin Drug Allergy 11-29-19 14 [facility] (20 sources) Codeine Drug Allergy 01-15-20 23 Other (See Comments) [facility] (20 sources) Mirtazapine Drug Allergy 07-23-20 23 Hallucinations [facility] (20 sources) moxifloxacin Drug Allergy 01-15-20 23 Hives [facility] (20 sources) Penicillins Drug Allergy 01-15-20 23 Rash [facility] (20 sources) traZODone Drug Allergy 01-15-20 23 [facility] (20 sources) varenicline Drug Allergy 11-29-19 14 [facility] (1 source) Meperidine Drug Allergy 11-17-19 24 other [facility] (20 sources) Ibuprofen Drug Allergy 11-25-19 24 Other (See Comments) [facility] (20 sources) Niacin And Related Propensity to adverse reactions to drug 11-25-19 24 Hives [facility] (20 sources) Meperidine Drug Allergy 11-17-19 24 [facility] (2 sources) Iron Drug Allergy 07-03-20 15 [facility] (2 sources) Meperidine Drug Allergy 06-21-20 24 [facility] (2 sources) Mirtazapine Drug Allergy 06-21-20 24 [facility] (2 sources) Penicillins Propensity to adverse reactions to drug 07-14-20 13 Rash [facility] Medications Current Medications Medication Drug Class(es) Dates Sig (Normalized) Sig (Original) Acetaminophen (1 source) Start: 11-25-2023 acetaminophen (TYLENOL) tablet 650 mg [id number] actuat albuterol 0.09 mg/actuat metered dose inhaler (20 sources) beta2-Adrenergic Agonist Start: 06-21-2024 End: 06-21-2024 take 2 puff(s) by inhalation every six hours albuterol HFA (Ventolin HFA) 90 mcg/act inhaler Indications: Mucopurulent chronic bronchitis (CMS/HCC) Inhale 2 puffs every 6 (six) hours if needed for shortness of breath 18 g 11 06/21/2024 Active Start: 12-02-2023 take 2 puff(s) by inhalation every six hours as needed for wheezing albuterol sulfate HFA (PROVENTIL;VENTOLIN;PROAIR) 108 (90 Base) MCG/ACT inhaler Inhale 2 puffs into the lungs every 6 hours as needed for Wheezing 18 g 3 12/02/2023 Active Start: 11-25-2023 take 2 puff(s) by inhalation every six hours as needed 2 puff, Inhalation, EVERY 6 HOURS PRN, Starting on Thu11/25/23 at 0836, Until Discontinued, Wheezing Initiate RT Bronchodilator Protocol: Yes - Inpatient Protocol take 2 puff(s) by inhalation every six hours as needed, then take 2 puff(s) by inhalation four times daily as needed albuterol HFA (Ventolin HFA) 90 mcg/act inhaler Inhale 2 puffs every 6 (six) hours if needed. 2 puffs as needed Inhalation four times daily as needed for 90 days Active albuterol 0.833 mg/ml / ipratropium bromide 0.167 mg/ml inhalation solution (20 sources) Anticholinergic, beta2-Adrenergic Agonist Start: 12-16-2023 End: 06-13-2024 ipratropium-albuterol (Duo-Neb) 0.5-2.5 mg/3 mL nebulizer solution Indications: Mucopurulent chronic bronchitis (CMS/HCC) Take 3 mL by nebulization in the morning and 3 mL at noon and 3 mL in the evening and 3 mL before bedtime. 1080 mL 1 12/16/2023 Active Start: 12-01-2023 End: 12-01-2023 ipratropium 0.5 mg-albuterol 2.5 mg (DUONEB) nebulizer solution 1 Dose Start: 11-28-2023 End: 11-28-2023 ipratropium 0.5 mg-albuterol 2.5 mg (DUONEB) nebulizer solution 1 Dose Start: 11-17-2023 ipratropium 0. 5 mg-albuterol 2.5 mg (DUONEB) 0.5-2.5 (3) MG/3ML SOLN nebulizer solution Three times daily 11/17/2023 Active Start: 11-17-2023 take 1 mL by inhalat ion three times daily Ipratropium-Albuterol Active 3 ML INHALATION Three times daily November 17, 2023 12:00am ipratropium-albu terol (Duo-Neb) 0.5-2.5 mg/3 mL nebulizer solution Take 3 mL by nebulization in the morning and 3 mL at noon and 3 mL in the evening and 3 mL before bedtime. 0 Active amoxicillin 875 mg / clavulanate 125 mg oral tablet (2 sources) Penicillin-class Antibacterial Start: 12-02-2023 End: 12-09-2023 take 1 tablet by mouth every twelve hours amoxicillin-clavulanate (AUGMENTIN) 875-125 MG per tablet Take 1 tablet by mouth every 12 hours for 7 days 14 tablet 0 12/02/2023 12/09/2023 Active Start: 11-29-2023 amoxicillin-cl avulanate (AUGMENTIN) 875-125 MG per tablet 1 tablet ascorbic acid 1000 mg oral tablet (20 sources) Vitamin C take 1 tablet by carine th in the morning Ascorbic Acid (vitamin C) 1000 MG tablet Take 1,000 mg by mouth in the morning and 1,000 mg before bedtime. Active take 2 tablets by mouth once nereyda ly vitamin C (ASCORBIC ACID) 500 MG tablet Take 2 tablets by mouth daily Active b complex vitamins capsule (20 sources) take 1 capsule by mo uth once daily b complex vitamins capsule Take 1 capsule by mouth daily Active take 1 capsule by mouth once nereyda ly b complex vitamins capsule Take 1 capsule by mouth Daily Active baclofen 20 mg oral tablet (20 sources) gamma-Aminobutyric Acid-ergic Agonist Start: 01-25-2024 End: 07-13-2024 baclofen (Lioresal) 20 MG tablet Indications: Chronic pain syndrome Take one half tablet in the morning, One half tablet at lunch, and 2 tablets in the evening 270 tablet 1 07/13/2024 Active Start: 11-25-2023 take 10 mg by mouth twice daily at mealtime 10 mg, Oral, 2 TIMES DAILY WITH MEALS, First dose on Thu11/25/23 at 1700, Until Discontinued Start: 11-17-2023 take 10 mg by mouth at [facility] Baclofen Active 10 MG PO With breakfast and lunch November 17, 2023 12:00am Start: 07-30-2023 baclofen (Ten esal) 20 MG tablet Indications: Chronic pain syndrome Take one half tablet in the morning, One half tablet at lunch, and 2 tablets in the evening 270 tablet 0 07/30/2023 Active take 0.5 tablet by m outh twice daily at mealtime, then take 0.5 tablet by mouth at lunch baclofen (LIORESAL) 20 MG tablet Take 0.5 tablets by mouth 2 times daily (with meals) 1/2 tab morning and lunch Active End: 12-02-2023 take 2 tablets by mouth once daily baclofen (LIORESAL) 20 MG tablet Take 2 tablets by mouth nightly 0 12/02/2023 Discontinued (Stop Taking at Discharge) busPIRone hydrochloride 15 mg oral tablet (20 sources) Start: 11-25-2023 take 1 tablet by mouth once daily 30 mg, Oral, Nightly, First dose on Thu11/25/23 at 2100, Until Discontinued This 15 mg tablet can be split into thirds (5 mg) or halves (7.5 mg) based on the ordered dose. Start: 10-21-2023 End: 04-14-2024 busPIRone (Buspar) 15 MG tab let Indications: Generalized anxiety disorder (CMS/HCC) Take 1 tablet at breakfast and 1 tablet lunch, and 2 tablets at bedtime. 360 tablet 1 04/14/2024 Active Start: 04-29-2023 take 1 tablet by carine twice daily at mealtime 15 mg, Oral, 2 TIMES DAILY WITH MEALS, First dose on Thu11/25/23 at 1700, Until Discontinued This 15 mg tablet can be split into thirds (5 mg) or halves (7.5 mg) based on the ordered dose. take 2 tablets by mo [facility] at bedtime busPIRone (BUSPAR) 15 MG tablet Take 30 mg by mouth at bedtime Active calcium chloride 0.0014 meq/ml / potassium chloride 0.004 meq/ml / sodium chloride 0.103 meq/ml / sodium lactate 0.028 meq/ml injectable solution (1 source) Start: 01-29-2024 lactated cammiee rs IV soln infusion calcium citrate 1040 mg oral tablet (20 sources) calcium citrate 1040 MG tablet Take 250 mg by mouth in the morning and 250 mg before bedtime. Active cholecalciferol 0.025 mg oral capsule (20 sources) Vitamin D take 1 capsule by mouth in the morning cholecalciferol (Vitamin D-3) 25 MCG (1000 UT) capsule Take 3,000 Units by mouth in the morning. Summer Dose. Active take 1 tablet by mouth in the mo rning cholecalciferol (Vitamin D-3) 125 MCG (5000 UT) tablet Take 5,000 Units by mouth in the morning. Winter dose. Active take 1 tablet by mouth once dominick y Cholecalciferol (VITAMIN D3) 125 MCG (5000 UT) TABS Take 1 tablet by mouth daily Active chondroitin sulfate a sodium 600 mg / glucosamine sulfate 750 mg oral tablet (20 sources) take 2 tablets by mouth once daily glucosamine-chondroitin 750-600 MG tablet tablet Take 2 tablets by mouth 1 (one) time each day Active RHT-RST-Kiimole E (OMEGA-3 COMPLEX PO) (4 sources) take 1 capsule by mouth once daily VOX-QND-Nnhgbvc E (OMEGA-3 COMPLEX PO) Take 1 capsule by mouth daily Active take 1 capsule by mouth once nereyda ly FXD-WFV-Gtfryuw E (OMEGA-3 COMPLEX PO) Take 1 capsule by mouth daily 0 Suspended doxepin hydrochloride 10 mg oral capsule (1 source) Tricyclic Antidepressant Start: 11-29-2023 doxepin (SINEQUAN) capsule 10 mg DULoxetine 20 mg delayed release oral capsule (20 sources) Serotonin and Norepinephrine Reuptake Inhibitor Start: 03-30-2024 End: 10-11-2024 take 2 capsules by mouth once daily DULoxetine (Cymbalta) [address] capsule Indications: Chronic pain syndrome Take 2 capsules (40 mg) by mouth Daily 180 capsule 1 04/14/2024 10/11/2024 Active Start: 11-25-2023 take 1 capsule by mo [facility] once daily 40 mg, Oral, DAILY, First dose on Thu11/25/23 at 1500, Until Discontinued Do not crush or break. May add contents of capsule to apple juice or apple sauce, but not chocolate. Start: 11-17-2023 take 40 mg by mouth once daily in the morning Duloxetine Active 40 MG PO Every morning November 17, 2023 12:00am Start: 08-21-2023 End: 11-19-2023 take 2 capsules by mouth in the morning DULoxetine (Cymbalta) [address] capsule Indications: Chronic pain syndrome Take 2 capsules (40 mg) by mouth in the morning. 180 capsule 0 08/21/2023 11/19/2023 Active famotidine 20 mg oral tablet (20 sources) Histamine-2 Receptor Antagonist Start: 04-14-2024 End: 01-09-2025 take 1 tablet by mouth in the morning famotidine (Pepcid) 20 MG tablet Indications: Duodenal stricture Take 1 tablet (20 mg) by mouth in the morning and 1 tablet (20 mg) before bedtime. 180 tablet 1 07/13/2024 01/09/2025 Active 120 actuat fluticasone propionate 0.11 mg/actuat metered dose inhaler (20 sources) Corticosteroid Start: 11-28-2023 fluticasone (FLOVENT HFA) 110 MCG/ACT inhaler 1 puff Start: 12-02-2022 take 1 puff(s) by in halation in the morning Flovent HFA 220 MCG/ACT inhaler Inhale 1 puff in the morning and 1 puff before bedtime. 12/02/2022 Active gabapentin 100 mg oral capsule (20 sources) Anti-epileptic Agent Start: 05-28-2023 End: 10-11-2024 take 1 capsule by mouth in the morning, then take 1 capsule by mouth in the evening, then take 1 capsule by mouth at bedtime gabapentin (Neurontin) 100 MG capsule Indications: Chronic pain syndrome Take 1 capsule (100 mg) by mouth in the morning and 1 capsule (100 mg) in the evening and 1 capsule (100 mg) before bedtime. 270 capsule 1 04/14/2024 10/11/2024 Active 1 ml HYDROmorphone hydrochloride 1 mg/ml cartridge (2 sources) Opioid Agonist Start: 12-01-2023 HYDROmorphone (DILAUDID) injection 0.5 mg Start: 12-01-2023 HYDROmorphone (DILAUDID) injection 0.25 mg hypromellose 5 mg/ml ophthalmic solution (1 source) Start: 11-25-2023 hypromellose ( ISOPTO TEARS) 0.5 % ophthalmic solution 2 drop iron polysaccharides (NIFEREX) 150 MG capsule (1 source) Start: 11-21-2023 iron polysacch arides (NIFEREX) 150 MG capsule Take 1 capsule by mouth every 48 hours 11/21/2023 Active labetalol (NORMODYNE;TRANDATE) injection 10 mg (1 source) Start: 12-01-2023 labetalol (NORMODYNE;TRANDATE) injection 10 mg levothyroxine sodium 0.175 mg oral tablet (20 sources) l-Thyroxine Start: 07-13-2024 levothyroxine (Synthroid) 175 MCG tablet Indications: Postsurgical hypothyroidism (CMS/HCC) Take 1 tablet daily 90 tablet 1 07/13/2024 Active Start: 12-01-2023 levothyroxine (SYNTHROID) tablet 175 mcg Start: 11-25-2023 End: 11-30-2023 levothyroxine (SYNTHROID) ta blet 150 mcg Start: 08-21-2023 End: 07-13-2024 levothyroxine (Synthroid) 15 0 MCG tablet Indications: Acquired hypothyroidism (CMS/HCC) Take 1 tablet daily 90 tablet 1 06/15/2024 07/13/2024 Discontinued (Reorder) levothyroxine (S YNTHROID) 150 MCG tablet Take 175 mcg by mouth in the morning and at bedtime Active loperamide hydrochloride 2 mg oral capsule (1 source) Opioid Agonist Start: 11-28-2023 loperamide (IM ODIUM) capsule 2 mg 1 ml LORazepam 2 mg/ml injection (1 source) Benzodiazepine Start: 11-29-2023 LORazepam (ATI VAN) injection 0.5 mg 100 ml magnesium sulfate 10 mg/ml injection (1 source) Start: 11-26-2023 magnesium sulf ate 1000 mg in dextrose 5% 100 mL IVPB melatonin 3 mg oral tablet (2 sources) Start: 11-26-2023 melatonin tabl et 3 mg take 2 tablets by mouth at bedti me melatonin 3 MG tablet Take 3 mg by mouth at bedtime. 2 tablet Orally at bedtime 0 Active metoprolol tartrate 25 mg oral tablet (1 source) beta-Adrenergic Vu Start: 12-03-2023 metoprolol tartrate (LOPRESSOR) tablet 12.5 mg mirtazapine 30 mg oral tablet (20 sources) Start: 02-15-2024 End: 10-11-2024 take 1 tablet by mouth at bedtime mirtazapine (Remeron) 30 MG tablet Indications: Sleep arousal disorder Take 1 tablet (30 mg) by mouth at bedtime 90 tablet 1 04/14/2024 10/11/2024 Active naloxone 0.4 mg in 10 mL sodium chloride syringe (1 source) Start: 12-01-2023 naloxone 0.4 mg in 10 mL sodium chloride syringe [place]-3 Fatty Acids (Fish Oil) 1000 MG capsule delayed-release (20 sources) [place]-3 Fatty Ac ids (Fish Oil) 1000 MG capsule delayed-release Take by mouth Active [place]-3 Fatty Acids (FISH OIL) 1000 MG CPDR (2 sources) [place]-3 Fatty Ac ids (FISH OIL) 1000 MG CPDR Take by mouth Active omeprazole 20 mg delayed release oral capsule (2 sources) Proton Pump Inhibitor Start: 04-12-2024 End: 04-14-2024 take 1 capsule by mouth once daily omeprazole (PriLOSEC) [address] capsule Take 1 capsule by mouth Daily 04/12/2024 04/14/2024 Discontinued (Therapy completed) ondansetron (ZOFRAN-ODT) disintegrating tablet 4 mg (1 source) Start: 11-25-2023 ondansetron (ZOFRAN-ODT) disintegrating tablet 4 mg Oxygen (20 sources) oxygen (O2) gas Inhale continuously via nasal canula; to maintain pulse ox between 90-94%. Active pantoprazole 40 mg delayed release oral tablet (20 sources) Proton Pump Inhibitor Start: 11-21-2023 End: 12-02-2023 take 1 tablet by mouth twice daily before mealtime, then take 1 tablet by mouth twice daily pantoprazole (PROTONIX) 40 MG tablet Indications: Pt has been taking 1 tab bid Take 1 tablet by mouth 2 times daily (before meals) Indications: Pt has been taking 1 tab bid 60 tablet 3 05/17/2024 Active petrolatum 610 mg/ml topical cream (1 source) Start: 11-26-2023 Hydrocerin (EUCERIN) cream CREA polysaccharide iron complex 150 mg oral capsule (20 sources) Start: 11-21-2023 take 1 capsule by mouth every other day iron polysaccharides (Nu-Iron,Niferex) 150 MG capsule Take 150 mg by mouth every other day 11/21/2023 Active Start: 11-21-2023 Polysaccharide Iron Complex Active 150 MG PO Every 48 hours 60 November 21, 2023 12:00am Potassium Chloride (1 source) Start: 11-26-2023 potassium chlo ride (KLOR-CON M) extended release tablet 40 mEq 5 ml sodium chloride 9 mg/ml injection (14 sources) Start: 01-29-2024 0.9 % sodium c hloride infusion Start: 01-29-2024 sodium chlorid e flush 0.9 % injection 5-40 mL Start: 12-01-2023 End: 12-01-2023 sodium chloride (PF) 0.9 % injection Start: 12-01-2023 sodium chlorid e flush 0.9 % injection 5-40 mL Start: 11-29-2023 End: 11-29-2023 sodium chloride 0.9 % bolus 500 mL Start: 11-25-2023 sodium chlorid e (OCEAN) 0.65 % nasal spray 1 spray Start: 11-25-2023 End: 12-01-2023 0.9 % sodium chloride infusi on Start: 11-25-2023 take 1 dose intraven ously twice daily 5-40 mL, IntraVENous, EVERY 12 HOURS SCHEDULED (2 times per day), First dose on Thu11/25/23 at 0900, Until Discontinued For Line Patency: Peripheral IV = 5 mL; Midline or Central Line = 10 mL/lumen. If following IV push medication, administer flush at same rate as the IV push. Flush volume is determined by type of infusion therapy being given. For non-viscous solutions use: Peripheral IV = 5 mL Midline or Central Line = 10 mL/lumen For viscous solutions (i.e. blood components, parenteral nutrition, contrast media, or after obtaining blood sample) use: Peripheral IV = 10 mL Midline or Central Line = 20 mL/lumen Start: 11-25-2023 IntraVENous, a t 5-250 mL/hr, PRN, if patient receiving piggyback infusions and maintenance fluids are not ordered OR KVO fluids to protect IV site / prevent frequent line interruptions/ long duration, Starting on Thu11/25/23 at 0421 For piggyback infusion, administer at same rate as piggyback for a total of 25 mL. Enter 25 mL into dose field and piggyback rate into rate field of order. If piggyback is infusing at a rate less than 100 mL/hr, enter 25 mL into dose field and 100 mL/hr into rate field of order. For KVO fluids, enter rate of 20 mL/hr or less into rate field of order. Start: 11-25-2023 End: 11-29-2023 take 5-40 mL intravenously once as needed 5-40 mL, IntraVENous, PRN, Starting on Thu11/25/23 at 0421, Until 11/29/23 at 1937, Line Care, After every IV line use For Line Patency: Peripheral IV = 5 mL; Midline or Central Line = 10 mL/lumen. If following IV push medication, administer flush at same rate as the IV push. Flush volume is determined by type of infusion therapy being given. For non-viscous solutions use: Peripheral IV = 5 mL Midline or Central Line = 10 mL/lumen For viscous solutions (i.e. blood components, parenteral nutrition, contrast media, or after obtaining blood sample) use: Peripheral IV = 10 mL Midline or Central Line = 20 mL/lumen spironolactone 50 mg oral tablet (20 sources) Aldosterone Antagonist Start: 07-13-2024 End: 01-09-2025 take 1 tablet by mouth once daily spironolactone (Aldactone) 50 MG tablet Indications: Peripheral edema Take 1 tablet (50 mg) by mouth Daily Dose increase 90 tablet 1 07/13/2024 01/09/2025 Active Start: 03-07-2024 End: 07-13-2024 take 0.5 tablet by mouth once daily spironolactone (Aldactone) 100 MG tablet Indications: Peripheral edema Take 0.5 tablets (50 mg) by mouth Daily Dose increase 03/07/2024 07/13/2024 Discontinued (Reorder) Start: 08-21-2023 End: 02-17-2024 take 25 mg by mouth once daily in the morning Spironolactone Active 25 MG PO Every morning November 17, 2023 12:00am take 2 tablets by mo ut once daily spironolactone (ALDACTONE) 25 MG tablet Take 2 tablets by mouth daily Active take 4 tablets by mo ut once daily spironolactone (ALDACTONE) 25 MG tablet Take 4 tablets by mouth daily Active STRONTIUM CITRATE (20 sources) take 1 tablet by carine th in the morning STRONTIUM CITRATE Take 1 tablet by mouth in the morning. Active take 1 tablet by mouth in the mo rning STRONTIUM CITRATE Take 1 tablet by mouth in the morning. 0 Active traMADol hydrochloride 50 mg oral tablet (20 sources) Opioid Agonist Start: 01-19-2024 End: 11-10-2024 traMADol (Ultram) 50 MG tablet Indications: Chronic pain syndrome Take 2 tablets (100 mg) by mouth in the morning and 2 tablets (100 mg) at noon and 2 tablets (100 mg) in the evening and 2 tablets (100 mg) before bedtime. 240 tablet 1 09/11/2024 11/10/2024 Active Start: 11-25-2023 take 100 mg by mouth every six hours as needed for pain 100 mg, Oral, EVERY 6 HOURS PRN, Starting on Thu11/25/23 at 2127, Until Discontinued, Pain Moderate (4-6), Pain Mild (1-3), Allowed for higher pain score per patient request Start: 11-17-2023 take 100 mg by mouth four times [...] bedtime. 240 tablet 2 07/23/2023 10/21/2023 Active turmeric extract 500 mg oral capsule (20 sources) take 500 mg by mouth once daily Turmeric (QC TUMERIC COMPLEX PO) Take 500 mg by mouth Daily Active zinc gluconate 50 mg oral tablet (20 sources) take 0.5 tablet by mouth once daily zinc gluconate 50 MG tablet Take 50 mg by mouth See administration instructions. 1/2 tablet= 25mg Orally Once a day for 30 day(s) Active zinc gluconate 5 0 MG tablet Take 1 tablet by mouth See Admin Instructions Active Completed/Discontinued Medications Medication Drug Class(es) Dates Sig (Normalized) Sig (Original) 20 ml albumin human, intermediate 250 mg/ml injection (1 source) Human Serum Albumin Start: 11-29-2023 End: 11-29-2023 albumin human 25% IV solution 25 g 100 ml calcium gluconate 20 mg/ml injection (2 sources) Start: 11-30-2023 End: 11-30-2023 calcium gluconate 2,000 mg in sodium chloride 100 mL Start: 11-27-2023 End: 11-27-2023 calcium gluconate 1,000 mg i n sodium chloride 50 mL cefuroxime 500 mg oral tablet (2 sources) Cephalosporin Antibacterial Start: 07-13-2024 End: 07-23-2024 take 1 tablet by mouth in the morning cefuroxime (Ceftin) 500 MG tablet Indications: Left maxillary sinusitis Take 1 tablet (500 mg) by mouth in the morning and 1 tablet (500 mg) before bedtime. Do all this for 10 days. 20 tablet 07/13/2024 07/23/2024 doxycycline hyclate 100 mg oral capsule (10 sources) Tetracycline-class Drug Start: 04-26-2024 End: 05-10-2024 doxycycline (Vibramycin) 100 MG capsule Indications: Cellulitis of lower extremity, unspecified laterality Take 1 capsule (100 mg) by mouth in the morning and 1 capsule (100 mg) before bedtime. Do all this for 14 days. Take with at least 8 ounces (large glass) of water. 28 capsule 04/26/2024 05/10/2024 Start: 08-21-2023 End: 09-04-2023 doxycycline (Vibra-Tabs) 100 MG tablet Indications: Cellulitis of lower extremity, unspecified laterality Take 1 tablet (100 mg) by mouth in the morning and 1 tablet (100 mg) before bedtime. Do all this for 14 days. Take with a full glass of water and do not lie down for at least 30 minutes after.. 28 tablet 0 08/21/2023 09/04/2023 Active 2 ml fentaNYL 0.05 mg/ml injection (2 sources) Opioid Agonist Start: 11-27-2023 End: 11-27-2023 fentaNYL (SUBLIMAZE) injection Start: 11-25-2023 fentaNYL (SUBL IMAZE) injection 25 mcg 4 ml furosemide 10 mg/ml injection (2 sources) Loop Diuretic Start: 12-01-2023 End: 12-01-2023 furosemide (LASIX) injection 20 mg Start: 11-25-2023 End: 11-26-2023 furosemide (LASIX) injection 20 mg hydrocortisone 5 mg oral tablet (10 sources) Corticosteroid Start: 11-26-2023 take 7.5 mg by mouth once daily before breakfast 7.5 mg, Oral, DAILY BEFORE BREAKFAST, First dose on Sara 11/26/23 at 0700, Until Discontinued Start: 11-25-2023 End: 06-27-2024 take 5 mg by mouth once daily at lunch 5 mg, Oral, DAILY WITH LUNCH, First dose on Thu11/25/23 at 1500, Until Discontinued End: 06-27-2024 take 1.5 tablets by mouth once daily before breakfast, then take 1.5 tablets by mouth in the morning hydrocortisone (CORTEF) 5 MG tablet Take 1.5 tablets by mouth every morning (before breakfast) 1.5 in AM 06/27/2024 Discontinued (Therapy completed) iopamidol (ISOVUE-370) 76 % injection 100 mL (3 sources) Start: 11-29-2023 End: 11-29-2023 iopamidol (ISOVUE-370) 76 % injection 100 mL Start: 11-27-2023 End: 11-27-2023 iopamidol (ISOVUE-370) 76 % injection 100 mL Start: 11-25-2023 End: 11-25-2023 iopamidol (ISOVUE-370) 76 % injection 100 mL 10 ml lidocaine hydrochloride 10 mg/ml injection (1 source) Antiarrhythmic, Amide Local Anesthetic Start: 01-29-2024 End: 01-29-2024 lidocaine PF 1 % injection 1 mL midodrine hydrochloride 5 mg oral tablet (2 sources) alpha-Adrenergic Agonist Start: 11-29-2023 End: 11-29-2023 midodrine (PROAMATINE) tablet 10 mg Start: 11-26-2023 midodrine (PRO AMATINE) tablet 10 mg nabumetone 750 mg oral tablet (7 sources) Nonsteroidal Anti-inflammatory Drug Start: 11-17-2023 End: [...] morning. 180 tablet 1 04/29/2023 10/26/2023 Active pantoprazole (PROTONIX) 40 m g in sodium chloride (PF) 0.9 % 10 mL injection (1 source) Start: 11-28-2023 End: 11-29-2023 pantoprazole (PROTONIX) 40 m g in sodium chloride (PF) 0.9 % 10 mL injection pantoprazole (PROTONIX) 80 m g in sodium chloride (PF) 0.9 % 20 mL injection (1 source) Start: 11-29-2023 End: 11-29-2023 pantoprazole (PROTONIX) 80 m g in sodium chloride (PF) 0.9 % 20 mL injection pantoprazole (PROTONIX) 80 m g in sodium chloride 0.9 % 100 mL infusion (2 sources) Start: 11-29-2023 End: 12-01-2023 pantoprazole (PROTONIX) 80 m g in sodium chloride 0.9 % 100 mL infusion Start: 11-25-2023 End: 11-28-2023 take 8 mg intravenously every hour 8 mg/hr (10 mL/hr), IntraVENous, CONTINUOUS, Starting on Thu11/25/23 at 0445, Until 11/28/23 at 0444 traZODone hydrochloride 50 mg oral tablet (2 sources) Serotonin Reuptake Inhibitor Start: 11-28-2023 End: 11-29-2023 traZODone (DESYREL) tablet 100 mg Start: 11-27-2023 End: 11-28-2023 traZODone (DESYREL) tablet 5 0 mg Problems Active Problems Problem Classification Problem Date Documented Date Episodic/Chronic Anxiety disorders (20 sources) Generalized anxiety disorder; Translations: [Generalized anxiety disorder] Onset: 01-06-2023 08-13-2023 Chronic Cardiac dysrhythmias (6 sources) Paroxysmal atrial fibrillation; Translations: [Paroxysmal atrial fibrillation] Onset: 12-03-2023 12-03-2023 Chronic Chronic obstructive pulmonary disease and bronchiectasis (20 sources) Mucopurulent chronic bronchitis; Translations: [Mucopurulent chronic bronchitis] Onset: 05-30-2016 Resolved: 08-13-2023 01-06-2023 Chronic Chronic ulcer of skin (20 sources) Non-pressure chronic ulcer of unspecified part of right lower leg limited to breakdown of skin; Translations: [Ulcer of lower limb, unspecified] Onset: 02-02-2024 02-02-2024 Chronic Complications of surgical procedures or medical care (20 sources) Postprocedural hypothyroidism; Translations: [Postoperative hypothyroidism] Onset: 08-28-2022 01-06-2023 Chronic Deficiency and other anemia (3 sources) Anemia, unspecified; Translations: [Anemia, unspecified] Onset: 11-17-2023 11-21-2023 Episodic Esophageal disorders (20 sources) Gastroesophageal reflux disease; Translations: [Gastro-esophageal reflux disease without esophagitis] Onset: 01-06-2023 01-06-2023 Chronic Fluid and electrolyte disorders (2 sources) Hypokalemia; Translations: [Hypokalemia] 05-02-2024 Episodic Gastroduodenal ulcer (except hemorrhage) (20 sources) Ulcer of duodenum; Translations: [Duodenal ulcer, unspecified as acute or chronic, without hemorrhage or perforation] Onset: 11-17-2023 11-19-2023 Chronic Malaise and fatigue (20 sources) Chronic fatigue, unspecified; Translations: [Fatigue] Onset: 08-26-2022 Chronic Malaise and fatigue (3 sources) Asthenia; Translations: [Weakness] Onset: 11-17-2023 11-17-2023 Episodic Osteoarthritis (20 sources) Bilateral arthritis of knees; Translations: [Bilateral primary osteoarthritis of knee] Onset: 01-06-2023 09-04-2023 Chronic Osteoporosis (20 sources) Osteoporosis; Translations: [Age-related osteoporosis without current pathological fracture] Onset: 01-06-2023 01-06-2023 Chronic Other diseases of veins and lymphatics (2 sources) Venous ulcer of lower extremity due to chronic peripheral venous hypertension; Translations: [Chronic venous hypertension (idiopathic) with ulcer of unspecified lower extremity] 05-12-2024 Chronic Other diseases of veins and lymphatics (2 sources) Stasis dermatitis; Translations: [Venous insufficiency (chronic) (peripheral)] Onset: 01-06-2023 09-04-2023 Episodic Other diseases of veins and lymphatics (4 sources) Venous insufficiency (chronic) (peripheral); Translations: [Venous (peripheral) insufficiency, unspecified] 04-28-2024 Episodic Other disorders of stomach and duodenum (4 sources) Stricture of duodenum; Translations: [Obstruction of duodenum] 04-14-2024 Chronic Other disorders of stomach and duodenum (2 sources) Obstruction of duodenum; Translations: [Obstruction of duodenum] Onset: 04-12-2024 Chronic Other hematologic conditions (1 source) Macrocytosis; Translations: [Other specified diseases of blood and blood-forming organs] 11-17-2023 Chronic Other hematologic conditions (2 sources) Other specified diseases of blood and blood-forming organs; Translations: [Other specified diseases of blood and blood-forming organs] Onset: 11-17-2023 11-21-2023 Chronic Other nervous system disorders (20 sources) Chronic pain syndrome; Translations: [Chronic pain syndrome] Onset: 01-06-2023 09-04-2023 Chronic Other nutritional; endocrine; and metabolic disorders (1 source) Unintentional weight loss; Translations: [Abnormal weight loss] 11-17-2023 Episodic Other nutritional; endocrine; and metabolic disorders (2 sources) Abnormal weight loss; Translations: [Loss of weight] Onset: 11-17-2023 11-21-2023 Episodic Other skin disorders (1 source) Night sweats; Translations: [Generalized hyperhidrosis] 11-17-2023 Episodic Residual codes; unclassified (20 sources) Sleep dysfunction with arousal disturbance; Translations: [Other sleep disorders] Onset: 01-06-2023 01-06-2023 Chronic Residual codes; unclassified (2 sources) Tobacco use; Translations: [Tobacco use disorder] Onset: 11-17-2023 11-21-2023 Episodic Residual codes; unclassified (2 sources) Peripheral edema; Translations: [Localized edema] 07-13-2024 Episodic Respiratory failure; insufficiency; arrest (adult) (20 sources) Chronic hypoxemic respiratory failure; Translations: [Chronic respiratory failure with hypoxia] Onset: 01-06-2023 Resolved: 08-13-2023 09-04-2023 Chronic Skin and subcutaneous tissue infections (6 sources) Cellulitis of lower limb; Translations: [Cellulitis of unspecified part of limb] 04-28-2024 Episodic Spondylosis; intervertebral disc disorders; other back problems (20 sources) Lumbar post-laminectomy syndrome; Translations: [Postlaminectomy syndrome, not elsewhere classified] Onset: 01-06-2023 Resolved: 08-13-2023 01-06-2023 Chronic Thyroid disorders (2 sources) Acquired hypothyroidism; Translations: [Hypothyroidism, unspecified] 06-15-2024 Chronic Past or Other Problems Problem Classification Problem Date Documented Da te Episodic/Chronic Complications of surgical procedures or medical care (20 sources) Complication of surgical procedure; Translations: [Unspecified complication of procedure, initial encounter] Onset: 1 Resolved: 4 07-31-2023 Episodic Deficiency and other anemia (20 sources) Anemia; Translations: [Anemia, unspecified] Onset: 4 Resolved: 4 11-17-2023 Episodic Gastrointestinal hemorrhage (20 sources) Gastrointestinal hemorrhage; Translations: [Gastrointestinal hemorrhage, unspecified] Onset: 4 Resolved: 4 11-17-2023 Episodic Mood disorders (20 sources) Recurrent major depression in partial remission; Translations: [Major depressive disorder, recurrent, in partial remission] Onset: 3 Resolved: 4 08-13-2023 Chronic Mood disorders (20 sources) Mood disorders Onset: 4 08-13-2023 Other aftercare (20 sources) Polypharmacy ; Translations: [Other fpc (current) drug therapy] Onset: 1 01-28-2023 Episodic Other aftercare (20 sources) Taking high risk medication; Translations: [Other parts counterman (current) drug therapy] Onset: 1 Resolved: 4 07-31-2023 Episodic Other aftercare (20 sources) Drug therapy finding; Translations: [Other fpc (current) drug therapy] Onset: 4 10-15-2023 Episodic Other bone disease and musculoskeletal deformities (20 sources) Osteopenia; Translations: [Other specified disorders of bone density and structure, other site] Onset: 3 01-06-2023 Episodic Other connective tissue disease (20 sources) Fibromyalgia; Translations: [Fibromyalgia] Onset: 3 01-06-2023 Episodic Other diseases of veins and lymphatics (20 sources) Peripheral venous insufficiency; Translations: [Venous insufficiency (chronic) (peripheral)] Onset: 3 01-06-2023 Episodic Other diseases of veins and lymphatics (20 sources) Disorder of vein of lower extremity; Translations: [Venous insufficiency (chronic) (peripheral)] Onset: 3 09-04-2023 Episodic Other injuries and conditions due to external causes (20 sources) At risk for falls ; Translations: [History of falling] Onset: 8 01-28-2023 Episodic Other nervous system disorders (20 sources) Difficulty walking; Translations: [Difficulty in walking, not elsewhere classified] Onset: 3 Resolved: 4 07-31-2023 Chronic Other nervous system disorders (20 sources) Allodynia; Translations: [Other disturbances of skin sensation] Onset: 3 01-06-2023 Episodic Other nervous system disorders (20 sources) White matter disease; Translations: [White matter disease, unspecified] Onset: 3 08-13-2023 Episodic Other nutritional; endocrine; and metabolic disorders (20 sources) Overweight; Translations: [Overweight] Onset: 6 01-28-2023 Episodic Other upper respiratory infections (20 sources) Maxillary sinusitis; Translations: [Chronic maxillary sinusitis] Onset: 3 Resolved: 4 08-13-2023 Chronic Residual codes; unclassified (7 sources) Tobacco user; Translations: [Tobacco use] Onset: 4 11-17-2023 Episodic Screening and history of mental health and substance abuse codes (20 sources) Ex-smoker; Translations: [Personal history of nicotine dependence] Onset: 3 07-23-2023 Episodic Substance-related disorders (20 sources) Cigarette smoker ; Translations: [Nicotine dependence, cigarettes, uncomplicated] Onset: 1 Resolved: 4 07-31-2023 Chronic Substance-related disorders (20 sources) Finding relating to drug misuse behavior; Translations: [Other psychoactive substance use, unspecified, uncomplicated] Onset: 4 11-18-2023 Episodic Thyroid disorders (20 sources) Sick-euthyroid syndrome; Translations: [Sick-euthyroid syndrome] Onset: 3 01-06-2023 Episodic Varicose veins of lower extremity (20 sources) Varicose vein of leg with phlebitis; Translations: [Varicose veins of right lower extremity with inflammation] Onset: 3 Resolved: 4 08-13-2023 Episodic Results Test Name Value Interpretation Reference Range Facility ALL HEMOGLOBINon 07-06-2024 Hemoglobin (Bld) [Mass/Vol] 14.5 g/dL 12.0 - 16.0 g/dL [facility] Surgical Pathology Reporton 01-29-2024 Surgical Pathology Report (NOTE) Path Number: [id number] -- Diagnosis -- STOMACH, BIOPSY: -MINIMAL TO MILD CHRONIC INACTIVE GASTRITIS -NO MORPHOLOGIC EVIDENCE OF HELICOBACTER PYLORI ORGANISMS Alvarez Su D.O. Electronically Signed Out ljf/02/01/2024 Clinical Information Pre-Op Diagnosis: DUODENAL ULCER Operative Findings: STOMACH BIOPSY Operation Performed: ESOPHAGOGASTRODUODENOSCOPY BIOPSY kb Source of Specimen A: STOMACH BIOPSY Gross Description JENNY EWING, STOMACH BIOPSY Received in formalin are three soft castelan tissue fragments ranging from 0.3 to 0.5 cm in length with a loose aggregate of 1.2 x 0.2 x 0.1 cm. Entirely 1cs. ds kb Octavio Paulson M.D./kb2:02/01/2024 Microscopic Description Microscopic examination performed. Processing Lab: [address] [id number] Interpretation Performed at [address] [id number] SURGICAL PATHOLOGY CONSULTATION Patient Name: JENNY EWING [facility] Rec: [id number] [facility] ANATOMIC PATHOLOGY [address] [place] [id number] Normal [facility] Basic Metab w/rfx MGon 12-02 Anion gap [Moles/Vol] 7 mmol/L Low 9-16 [facility] Comment on above: Performed By: #### B MPX, MG, CDP #### [employer] [address] [place] [address] Sales Ledger Administrator: Dwain Aldana MD Calcium [Mass/Vol] 7.6 mg/dL Low 8.6-10.4 [facility] [place] [facility] Comment on above: Performed By: #### B MPX, MG, CDP #### [address] [address] Sales Ledger Administrator: Dwain Aldana MD Chloride [Moles/Vol] 101 mmol/L Normal 98-107 [facility] Comment on above: Performed By: #### B MPX, MG, CDP #### [address] [address] Sales Ledger Administrator: Dwain Aldana MD CO2 [Moles/Vol] 31 mmol/L Normal 20-31 [facility] [place] [facility] Comment on above: Performed By: #### B MPX, MG, CDP #### [address] [address] Sales Ledger Administrator: Dwain Aldana MD Creatinine [Mass/Vol] 0.4 mg/dL Low 0.50-0.90 [facility] Comment on above: Performed By: #### B MPX, MG, CDP #### [address] [address] Sales Ledger Administrator: Dwain Aldana MD GFR/1.73 sq M.predicted among non-blacks MDRD (S/P/Bld) [Vol rate/Area] mL/min/{1.73_m2} Normal >60 [facility] [place] [facility] Comment on above: Result Comment: These results are not intended for use in patients <18 years of age. eGFR results are calculated without a race factor using the 2020 CKD-EPI equation. Careful clinical correlation is recommended, particularly when comparing to results calculated using previous equations. The CKD-EPI equation is less accurate in patients with extremes of muscle mass, extra-renal metabolism of creatine, excessive creatine ingestion, or following therapy that affects renal tubular secretion. Performed By: #### B MPX, MG, CDP #### [address] [address] Sales Ledger Administrator: Dwain Aldana MD Glucose [Mass/Vol] 83 mg/dL Normal 74-99 [facility] [place] [facility] Comment on above: Performed By: #### B MPX, MG, CDP #### [address] [place] [address] Sales Ledger Administrator: Dwain Aldana MD Potassium [Moles/Vol] 3.2 mmol/L Low 3.7-5.3 [facility] Comment on above: Performed By: #### B MPX, MG, CDP #### [facility] [address] [place], [place] [id number] Sales Ledger Administrator: Dwain Aldana MD Sodium [Moles/Vol] 139 mmol/L Normal 136-145 [facility] [place] [facility] Comment on above: Performed By: #### B MPX, MG, CDP #### [facility] [place] [address] Sales Ledger Administrator: Dwain Aldana MD Urea nitrogen [Mass/Vol] 2 mg/dL Low 8-23 [facility] [place] [facility] Comment on above: Performed By: #### B MPX, MG, CDP #### [facility] [address] [place] [phone] Sales Ledger Administrator: Dwain Aldana MD Basic Metabolic Panel w/ Ref merleen to on 12-03-2023 Anion gap [Moles/Vol] 7 mmol/L Low 9 - 16 mmol/L [facility] Calcium [Mass/Vol] 7.6 mg/dL Low 8.6 - 10. 4 mg/dL [facility] Chloride [Moles/Vol] 101 mmol/L 98 - 10 7 mmol/L [facility] CO2 [Moles/Vol] 31 mmol/L 20 - 31 mmol/L [facility] Creatinine [Mass/Vol] 0.4 mg/dL Low 0.50 - 0.90 mg/dL [facility] Est, [place] Garn[facility] Rate - [facility] Comment on above: These results are not intended for use in patients <18 years of age. eGFR results are calculated without a race factor using the 2020 CKD-EPI equation. Careful clinical correlation is recommended, particularly when comparing to results calculated using previous equations. The CKD-EPI equation is less accurate in patients with extremes of muscle mass, extra-renal metabolism of creatine, excessive creatine ingestion, or following therapy that affects renal tubular secretion. Glucose [Mass/Vol] 83 mg/dL 74 - 99 mg/dL [facility] Interpretation and review of laboratory results Abnormal [facility] Potassium [Moles/Vol] 3.2 mmol/L Low 3.7 - 5.3 mmol/L [facility] Sodium [Moles/Vol] 139 mmol/L 136 - 145 mmol/L [facility] Urea nitrogen [Mass/Vol] 2 mg/dL Low 8 - 23 mg/dL [facility] CBC with Auto Differentialon 12-03-2023 Basophils (Bld) [#/Vol] 0.08 10*3/uL [facility] Basophils/100 WBC (Bld) 1 % 0 - 2 % [facility] Eosinophils (Bld) [#/Vol] 0.23 10*3/uL [facility] Eosinophils/100 WBC (Bld) 3 % 1 - 4 % [facility] Erythrocyte distribution width (RBC) [Ratio] 17.7 % High 11.8 - 14.4 % [facility] Hematocrit (Bld) [Volume fraction] 29.4 % Low 36.3 - 47.1 % [facility] Hemoglobin (Bld) [Mass/Vol] 9.6 g/dL Low 11.9 - 15.1 g/dL [facility] Immature granulocytes (Bld) [#/Vol] 0.08 10*3/uL [facility] Immature granulocytes/100 WBC (Bld) 1 % High 0 [facility] Interpretation and review of laboratory results Abnormal [facility] Lymphocytes/100 WBC (Bld) 18 % Low 24 - 43 % [facility] Lymphocytes/100 WBC (Bld) 1.37 % [facility] MCH (RBC) [Entitic mass] 30.4 pg 25.2 - 33.5 pg [facility] MCHC (RBC) [Mass/Vol] 32.7 g/dL 28.4 - 34.8 g/dL [facility] MCV (RBC) [Entitic vol] 93.0 fL 82.6 - 102.9 fL [facility] Monocytes/100 WBC (Bld) 9 % 3 - 12 % [facility] Monocytes/100 WBC (Bld) 0.68 % [facility] Morphology Jesus (Bld) [Interp] Normal [facility] Neutrophils/100 WBC (Bld) 68 % High 36 - 65 % [facility] Nucleated RBC/100 WBC (Bld) [Ratio] 0.0 % 0.0 per 100 WBC [facility] Platelet, Fluorescence 347 [facility] Platelets (Bld) [#/Vol] See Reflexed IPF Result [facility] Platelets reticulated/100 platelets Auto (Bld) 4.0 % 1.1 - 10.3 % [facility] RBC (Bld) [#/Vol] 3.16 10*6/uL Low 3.95 - 5.11 m/uL [facility] RBC (Bld) [#/Vol] ANISOCYTOSIS PRESENT [facility] Segmented neutrophils/100 WBC (Bld) 5.16 % [facility] WBC other (Bld) [#/Vol] 7.6 [facility] CBC with Diffon 12-03-2023 Abs. Basophil 0.08 k/uL Normal 0.00-0.20 [facility] [place] [facility] Comment on above: Performed By: #### B MPX, MG, CDP #### [employer] [address] [place], [place] [phone] Sales Ledger Administrator: Dwain Aldana MD Abs.Imm.Granulocyte 0.08 k/uL Normal 0.00-0.30 [facility] [place] [facility] Comment on above: Performed By: #### B MPX, MG, CDP #### [employer] [address] [place] [address] Sales Ledger Administrator: Dwain Aldana MD Abs.Neutrophil (Seg) 5.16 k/uL Normal 1.50-8.10 [facility] Comment on above: Performed By: #### B MPX, MG, CDP #### [employer] [address] [place] [phone] Sales Ledger Administrator: Dwain Aldana MD Basophils/100 WBC (Bld) 1 % Normal 0-2 [facility] [place] [facility] Comment on above: Performed By: #### B MPX, MG, CDP #### [facility] [address] [place] [address] Sales Ledger Administrator: Dwain Aldana MD Eosinophils (Bld) [#/Vol] 0.23 10*3/uL Normal 0.00-0.44 [facility] [place] [facility] Comment on above: Performed By: #### B MPX, MG, CDP #### [facility] [address] [place] [address] Sales Ledger Administrator: Dwain Aldana MD Eosinophils/100 WBC (Bld) 3 % Normal 1-4 [facility] [place] [facility] Comment on above: Performed By: #### B MPX, MG, CDP #### [facility] [address] [place] [address] Sales Ledger Administrator: Dwain Aldana MD Immature granulocytes/100 WBC (Bld) 1 % High 0 [facility] [place] [facility] Comment on above: Performed By: #### B MPX, MG, CDP #### [facility] [address] [place] [phone] Sales Ledger Administrator: Dwain Aldana MD Lymphocytes (Bld) [#/Vol] 1.37 10*3/uL Normal 1.10-3.70 [facility] [place] [facility] Comment on above: Performed By: #### B MPX, MG, CDP #### [facility] [address] [place] [phone] Sales Ledger Administrator: Dwain Aldana MD Lymphocytes/100 WBC (Bld) 18 % Low 24-43 [facility] [place] [facility] Comment on above: Performed By: #### B MPX, MG, CDP #### [facility] [address] [place] [address] Sales Ledger Administrator: Dwain Aldana MD Monocytes (Bld) [#/Vol] 0.68 10*3/uL Normal 0.10-1.20 [facility] [place] [facility] Comment on above: Performed By: #### B MPX, MG, CDP #### [address] [address] Sales Ledger Administrator: Dwain Aldana MD Monocytes/100 WBC (Bld) 9 % Normal 3-12 [facility] [place] [facility] Comment on above: Performed By: #### B MPX, MG, CDP #### [address] [address] Sales Ledger Administrator: Dwain Aldana MD Morphology Jesus (Bld) [Interp] Normal Normal [facility] [place] [facility] Comment on above: Performed By: #### B MPX, MG, CDP #### [place] [address] Sales Ledger Administrator: Dwain Aldana MD Neutrophil (Seg) 68 % High 36-65 [facility] Comment on above: Performed By: #### B MPX, MG, CDP #### [address] [address] Sales Ledger Administrator: Dwain Aldana MD Platelet, Fluoresc. 347 k/uL Normal 138-453 [facility] [place] [facility] Comment on above: Performed By: #### B MPX, MG, CDP #### [address] [address] Sales Ledger Administrator: Dwain Aldana MD PLT, Immature Fract. 4.0 % Normal 1.1-10.3 [facility] Comment on above: Performed By: #### B MPX, MG, CDP #### [address] [address] Sales Ledger Administrator: Dwain Aldana MD Erythrocyte distribution width (RBC) [Ratio] 17.7 % High 11.8-14.4 [facility] [place] [facility] Comment on above: Performed By: #### B MPX, MG, CDP #### [facility] [address] [place] [phone] Sales Ledger Administrator: Dwain Aldana MD Hematocrit (Bld) [Volume fraction] 29.4 % Low 36.3-47.1 [facility] [place] [facility] Comment on above: Performed By: #### B MPX, MG, CDP #### [facility] [address] [place] [phone] Sales Ledger Administrator: Dwain Aldana MD Hemoglobin (Bld) [Mass/Vol] 9.6 g/dL Low 11.9-15.1 [facility] [place] [facility] Comment on above: Performed By: #### B MPX, MG, CDP #### [facility] [address] [place] [address] Sales Ledger Administrator: Dwain Aldana MD MCH (RBC) [Entitic mass] 30.4 pg Normal 25.2-33.5 [facility] [place] [facility] Comment on above: Performed By: #### B MPX, MG, CDP #### [facility] [address] [place] [phone] Sales Ledger Administrator: Dwain Aldana MD MCHC (RBC) [Mass/Vol] 32.7 g/dL Normal 28.4-34.8 [facility] Comment on above: Performed By: #### B MPX, MG, CDP #### [facility] [employer] [address] [place] [address] [phone] Sales Ledger Administrator: Dwain Aldana MD MCV (RBC) [Entitic vol] 93.0 fL Normal 82.6-102.9 [facility] Comment on above: Performed By: #### B MPX, MG, CDP #### [facility] [employer] [address] [place] [address] [phone] Sales Ledger Administrator: Dwain Aldana MD NRBC Automated 0.0 per 100 WBC Normal 0.0 [facility] Comment on above: Performed By: #### B MPX, MG, CDP #### [facility] [address] [place] [address] Sales Ledger Administrator: Dwain Aldana MD Platelet Count See Reflexed IPF Result Normal 138-453 [facility] Comment on above: Performed By: #### B MPX, MG, CDP #### [facility] [place] [address] Sales Ledger Administrator: Dwain Aldana MD RBC (Bld) [#/Vol] 3.16 10*6/uL Low 3.95-5.11 [facility] Comment on above: Performed By: #### B MPX, MG, CDP #### [facility] [address] [place] [address] [phone] Sales Ledger Administrator: Dwain Aldana MD RBC morphology finding Nom (Bld) ANISOCYTOSIS PRESENT Normal [facility] Comment on above: Performed By: #### B MPX, MG, CDP #### [facility] [address] [place] [address] [phone] Sales Ledger Administrator: Dwain Aldana MD WBC (Bld) [#/Vol] 7.6 10*3/uL Normal 3.5-11.3 [facility] Comment on above: Performed By: #### B MPX, MG, CDP #### [facility] [employer] [address] [place] [address] [phone] Sales Ledger Administrator: Dwain Aldana MD Magnesiumon 12-03-2023 Magnesium [Mass/Vol] 1.7 mg/dL Normal 1.6-2.4 [facility] Comment on above: Performed By: #### B MPX, MG, CDP #### [facility] [employer] [address] [place] [address] [phone] Sales Ledger Administrator: Dwain Aldana MD Magnesium [Mass/Vol] 1.7 mg/dL 1.6 - 2 .4 mg/dL [facility] Basic Metab w/rfx MGon 12-01 Anion gap [Moles/Vol] 8 mmol/L Low 9-16 [facility] Comment on above: Performed By: #### B MPX, MG, CDP #### [facility] [address] [place] [address] [phone] Sales Ledger Administrator: Dwain Aldana MD Calcium [Mass/Vol] 7.0 mg/dL Low 8.6-10.4 [facility] Comment on above: Performed By: #### B MPX, MG, CDP #### [facility] [address] [place] [address] [phone] Sales Ledger Administrator: Dwain Aldana MD Chloride [Moles/Vol] 101 mmol/L Normal 98-107 [facility] Comment on above: Performed By: #### B MPX, MG, CDP #### [facility] [address] [place] [address] [phone] Sales Ledger Administrator: Dwain Aldana MD CO2 [Moles/Vol] 28 mmol/L Normal 20-31 [facility] Comment on above: Performed By: #### B MPX, MG, CDP #### [facility] [address] [place] [address] [phone] Sales Ledger Administrator: Dwain Aldana MD Creatinine [Mass/Vol] 0.4 mg/dL Low 0.50-0.90 [facility] Comment on above: Performed By: #### B MPX, MG, CDP #### [facility] [address] [place] [address] [phone] Sales Ledger Administrator: Dwain Aldana MD GFR/1.73 sq M.predicted among non-blacks MDRD (S/P/Bld) [Vol rate/Area] mL/min/{1.73_m2} Normal >60 [facility] Comment on above: Result Comment: These results are not intended for use in patients <18 years of age. eGFR results are calculated without a race factor using the 2020 CKD-EPI equation. Careful clinical correlation is recommended, particularly when comparing to results calculated using previous equations. The CKD-EPI equation is less accurate in patients with extremes of muscle mass, extra-renal metabolism of creatine, excessive creatine ingestion, or following therapy that affects renal tubular secretion. Performed By: #### B ALEKS MG, CDP #### [facility] [address] [place] [address] [phone] Sales Ledger Administrator: Dwain Aldana MD Glucose [Mass/Vol] 85 mg/dL Normal 74-99 [facility] Comment on above: Performed By: #### B MPX MG, CDP #### [facility] [address] [place] [address] [phone] Sales Ledger Administrator: Dwain Aldana MD Potassium [Moles/Vol] 3.4 mmol/L Low 3.7-5.3 [facility] Comment on above: Performed By: #### B SWATHIX MG, CDP #### [facility] [address] [place] [address] [phone] Sales Ledger Administrator: Dwain Aldnaa MD Sodium [Moles/Vol] 137 mmol/L Normal 136-145 [facility] Comment on above: Performed By: #### B MPX MG, CDP #### [facility] [address] [place] [address] [phone] Sales Ledger Administrator: Dwain Aldana MD Urea nitrogen [Mass/Vol] 4 mg/dL Low 8-23 [facility] Comment on above: Performed By: #### B MPX MG, CDP #### [facility] [address] [place] [address] [phone] Sales Ledger Administrator: Dwain Aldana MD Basic Metabolic Panel w/ Ref merlene to MGon 12-02-2023 Anion gap [Moles/Vol] 8 mmol/L Low 9 - 16 mmol/L [facility] Calcium [Mass/Vol] 7.0 mg/dL Low 8.6 - 10. 4 mg/dL [facility] Chloride [Moles/Vol] 101 mmol/L 98 - 10 7 mmol/L [facility] CO2 [Moles/Vol] 28 mmol/L 20 - 31 mmol/L [facility] Creatinine [Mass/Vol] 0.4 mg/dL Low 0.50 - 0.90 mg/dL [facility] Comment on above: These results are not intended for use in patients <18 years of age. eGFR results are calculated without a race factor using the 2020 CKD-EPI equation. Careful clinical correlation is recommended, particularly when comparing to results calculated using previous equations. The CKD-EPI equation is less accurate in patients with extremes of muscle mass, extra-renal metabolism of creatine, excessive creatine ingestion, or following therapy that affects renal tubular secretion. Glucose [Mass/Vol] 85 mg/dL 74 - 99 mg/dL [facility] Interpretation and review of laboratory results Abnormal [facility] Potassium [Moles/Vol] 3.4 mmol/L Low 3.7 - 5.3 mmol/L [facility] Sodium [Moles/Vol] 137 mmol/L 136 - 145 mmol/L [facility] Urea nitrogen [Mass/Vol] 4 mg/dL Low 8 - 23 mg/dL [facility] CBC with Auto Differentialon 12-02-2023 Basophils (Bld) [#/Vol] 0.05 10*3/uL [facility] Basophils/100 WBC (Bld) 1 % 0 - 2 % [facility] Eosinophils (Bld) [#/Vol] 0.18 10*3/uL [facility] Eosinophils/100 WBC (Bld) 3 % 1 - 4 % [facility] Erythrocyte distribution width (RBC) [Ratio] 17.9 % High 11.8 - 14.4 % [facility] Hematocrit (Bld) [Volume fraction] 27.5 % Low 36.3 - 47.1 % [facility] Hemoglobin (Bld) [Mass/Vol] 8.2 g/dL Low 11.9 - 15.1 g/dL [facility] Immature granulocytes (Bld) [#/Vol] 0.04 10*3/uL [facility] Immature granulocytes/100 WBC (Bld) 1 % High 0 [facility] Interpretation and review of laboratory results Abnormal [facility] Lymphocytes/100 WBC (Bld) 13 % Low 24 - 43 % [facility] Lymphocytes/100 WBC (Bld) 0.92 % Low [facility] MCH (RBC) [Entitic mass] 30.0 pg 25.2 - 33.5 pg [facility] MCHC (RBC) [Mass/Vol] 29.8 g/dL 28.4 - 34.8 g/dL [facility] MCV (RBC) [Entitic vol] 100.7 fL 82.6 - 102.9 fL [facility] Monocytes/100 WBC (Bld) 7 % 3 - 12 % [facility] Monocytes/100 WBC (Bld) 0.47 % [facility] Neutrophils/100 WBC (Bld) 77 % High 36 - 65 % [facility] Nucleated RBC/100 WBC (Bld) [Ratio] 0.0 % 0.0 per 100 WBC [facility] Platelet, Fluorescence 319 [facility] Platelets (Bld) [#/Vol] See Reflexed IPF Result [facility] Platelets reticulated/100 platelets Auto (Bld) 3.7 % 1.1 - 10.3 % [facility] RBC (Bld) [#/Vol] 2.73 10*6/uL Low 3.95 - 5.11 m/uL [facility] RBC (Bld) [#/Vol] ANISOCYTOSIS PRESENT [facility] Segmented neutrophils/100 WBC (Bld) 5.49 % [facility] WBC other (Bld) [#/Vol] 7.2 [facility] CBC with Diffon 12-02-2023 Platelet, Fluoresc. 319 k/uL Normal 138-453 [facility] Comment on above: Performed By: #### B MPX, MG, CDP #### [facility] [employer] [facility] [place], [place] [phone] Sales Ledger Administrator: Dwain Aldana MD PLT, Immature Fract. 3.7 % Normal 1.1-10.3 [facility] Comment on above: Performed By: #### B MPX, MG, CDP #### [facility] [employer] [address] [place] [address] Sales Ledger Administrator: Dwain Aldana MD Abs. Basophil 0.05 k/uL Normal 0.00-0.20 [facility] Comment on above: Performed By: #### B MPX, MG, CDP #### [facility] [employer] [address] [place] [address] Sales Ledger Administrator: Dwain Aldana MD Abs.Imm.Granulocyte 0.04 k/uL Normal 0.00-0.30 [facility] Comment on above: Performed By: #### B MPX, MG, CDP #### [facility] [employer] [address] [place] [address] Sales Ledger Administrator: Dwain Aldana MD Abs.Neutrophil (Seg) 5.49 k/uL Normal 1.50-8.10 [facility] Comment on above: Performed By: #### B MPX, MG, CDP #### [facility] [employer] [address] [place] [address] Sales Ledger Administrator: Dwain Aldana MD Basophils/100 WBC (Bld) 1 % Normal 0-2 [facility] Comment on above: Performed By: #### B MPX, MG, CDP #### [facility] [employer] [address] [place] [address] Sales Ledger Administrator: Dwain Aldana MD Eosinophils (Bld) [#/Vol] 0.18 10*3/uL Normal 0.00-0.44 [facility] Comment on above: Performed By: #### B MPX, MG, CDP #### [facility] [employer] [address] [place] [address] Sales Ledger Administrator: Dwain Aldana MD Eosinophils/100 WBC (Bld) 3 % Normal 1-4 [facility] Comment on above: Performed By: #### B MPX, MG, CDP #### [facility] [address] [place] [address] [phone] Sales Ledger Administrator: Dwain Aldana MD Erythrocyte distribution width (RBC) [Ratio] 17.9 % High 11.8-14.4 [facility] Comment on above: Performed By: #### B MPX, MG, CDP #### [facility] [address] [place] [address] [phone] Sales Ledger Administrator: Dwain Aldana MD Hematocrit (Bld) [Volume fraction] 27.5 % Low 36.3-47.1 [facility] Comment on above: Performed By: #### B MPX, MG, CDP #### [facility] [address] [place] [address] [phone] Sales Ledger Administrator: Dwain Aldana MD Hemoglobin (Bld) [Mass/Vol] 8.2 g/dL Low 11.9-15.1 [facility] Comment on above: Performed By: #### B MPX, MG, CDP #### [facility] [address] [place] [address] [phone] Sales Ledger Administrator: Dwain Aldana MD Immature granulocytes/100 WBC (Bld) 1 % High 0 [facility] Comment on above: Performed By: #### B MPX, MG, CDP #### [facility] [address] [place] [address] [phone] Sales Ledger Administrator: Dwain Aldana MD Lymphocytes (Bld) [#/Vol] 0.92 10*3/uL Low 1.10-3.70 [facility] Comment on above: Performed By: #### B MPX, MG, CDP #### [facility] [address] [place] [address] [phone] Sales Ledger Administrator: Dwain Aldana MD Lymphocytes/100 WBC (Bld) 13 % Low 24-43 [facility] Comment on above: Performed By: #### B MPX, MG, CDP #### [facility] [employer] [address] [place] [address] [phone] Sales Ledger Administrator: Dwain Aldana MD MCH (RBC) [Entitic mass] 30.0 pg Normal 25.2-33.5 [facility] Comment on above: Performed By: #### B MPX, MG, CDP #### [facility] [address] [place] [address] [phone] Sales Ledger Administrator: Dwain Aldana MD MCHC (RBC) [Mass/Vol] 29.8 g/dL Normal 28.4-34.8 [facility] Comment on above: Performed By: #### B MPX, MG, CDP #### [facility] [employer] [address] [place] [address] [phone] Sales Ledger Administrator: Dwain Aldana MD MCV (RBC) [Entitic vol] 100.7 fL Normal 82.6-102.9 [facility] Comment on above: Performed By: #### B MPX, MG, CDP #### [facility] [employer] [address] [place] [address] [phone] Sales Ledger Administrator: Dwain Aldana MD Monocytes (Bld) [#/Vol] 0.47 10*3/uL Normal 0.10-1.20 [facility] Comment on above: Performed By: #### B MPX, MG, CDP #### [facility] [employer] [address] [place] [address] [phone] Sales Ledger Administrator: Dwain Aldana MD Monocytes/100 WBC (Bld) 7 % Normal 3-12 [facility] Comment on above: Performed By: #### B MPX, MG, CDP #### [facility] [employer] [address] [place] [address] [phone] Sales Ledger Administrator: Dwain Aldana MD Neutrophil (Seg) 77 % High 36-65 [facility] Comment on above: Performed By: #### B MPX, MG, CDP #### [facility] [employer] [address] [place] [address] [phone] Sales Ledger Administrator: Dwain Aldana MD NRBC Automated 0.0 per 100 WBC Normal 0.0 [facility] Comment on above: Performed By: #### B MPX, MG, CDP #### [facility] [address] [place] [address] [phone] Sales Ledger Administrator: Dwain Aldana MD Platelet Count See Reflexed IPF Result Normal 138-453 [facility] Comment on above: Performed By: #### B MPX, MG, CDP #### [facility] [employer] [address] [place] [address] [phone] Sales Ledger Administrator: Dwain Aldana MD RBC (Bld) [#/Vol] 2.73 10*6/uL Low 3.95-5.11 [facility] Comment on above: Performed By: #### B MPX, MG, CDP #### [facility] [employer] [address] [place] [address] [phone] Sales Ledger Administrator: Dwain Aldana MD RBC morphology finding Nom (Bld) ANISOCYTOSIS PRESENT Normal [facility] Comment on above: Performed By: #### B MPX, MG, CDP #### [facility] [employer] [address] [place] [address] [phone] Sales Ledger Administrator: Dwain Aldana MD WBC (Bld) [#/Vol] 7.2 10*3/uL Normal 3.5-11.3 [facility] Comment on above: Performed By: #### B MPX, MG, CDP #### [facility] [employer] [address] [place] [address] [phone] Sales Ledger Administrator: Dwain Aldana MD Magnesiumon 12-02-2023 Magnesium [Mass/Vol] 1.7 mg/dL Normal 1.6-2.4 [facility] Comment on above: Performed By: #### B MPX, MG, CDP #### [address] [phone] Sales Ledger Administrator: Dwain Aldana MD Magnesium [Mass/Vol] 1.7 mg/dL 1.6 - 2 .4 mg/dL [facility] Basic Metab w/rfx MGon 11-30 Anion gap [Moles/Vol] 7 mmol/L Low 9-16 [facility] Comment on above: Performed By: #### H H #### [address] [address] Sales Ledger Administrator: Dwain Aldana MD Calcium [Mass/Vol] 6.8 mg/dL Low 8.6-10.4 [facility] Comment on above: Performed By: #### H H #### [address] [address] Sales Ledger Administrator: Dwain Aldana MD Chloride [Moles/Vol] 107 mmol/L Normal 98-107 [facility] Comment on above: Performed By: #### H H #### [address] [address] Sales Ledger Administrator: Dwain Aldana MD CO2 [Moles/Vol] 23 mmol/L Normal 20-31 [facility] Comment on above: Performed By: #### H H #### [address] [address] Sales Ledger Administrator: Dwain Aldana MD Creatinine [Mass/Vol] 0.3 mg/dL Low 0.50-0.90 [facility] Comment on above: Performed By: #### H H #### [address] [address] Sales Ledger Administrator: Dwain Aldana MD GFR/1.73 sq M.predicted among non-blacks MDRD (S/P/Bld) [Vol rate/Area] mL/min/{1.73_m2} Normal >60 [facility] Comment on above: Result Comment: These results are not intended for use in patients <18 years of age. eGFR results are calculated without a race factor using the 2020 CKD-EPI equation. Careful clinical correlation is recommended, particularly when comparing to results calculated using previous equations. The CKD-EPI equation is less accurate in patients with extremes of muscle mass, extra-renal metabolism of creatine, excessive creatine ingestion, or following therapy that affects renal tubular secretion. Performed By: #### H H #### [facility] [employer] [address] [place] [address] [phone] Sales Ledger Administrator: Dwain Aldana MD Glucose [Mass/Vol] 79 mg/dL Normal 74-99 [facility] Comment on above: Performed By: #### H H #### [address] [address] Sales Ledger Administrator: Dwain Aldana MD Potassium [Moles/Vol] 3.8 mmol/L Normal 3.7-5.3 [facility] Comment on above: Performed By: #### H H #### [facility] [employer] [address] [place] [address] [phone] Sales Ledger Administrator: Dwain Aldana MD Sodium [Moles/Vol] 137 mmol/L Normal 136-145 [facility] Comment on above: Performed By: #### H H #### [address] [address] Sales Ledger Administrator: Dwain Aldana MD Urea nitrogen [Mass/Vol] 8 mg/dL Normal 8-23 [facility] Comment on above: Performed By: #### H H #### [address] [address] Sales Ledger Administrator: Dwain Aldana MD Basic Metabolic Panel w/ Ref merlene to MGon 12-01-2023 Anion gap [Moles/Vol] 7 mmol/L Low 9 - 16 mmol/L [facility] Calcium [Mass/Vol] 6.8 mg/dL Low 8.6 - 10. 4 mg/dL [facility] Chloride [Moles/Vol] 107 mmol/L 98 - 10 7 mmol/L [facility] CO2 [Moles/Vol] 23 mmol/L 20 - 31 mmol/L [facility] Creatinine [Mass/Vol] 0.3 mg/dL Low 0.50 - 0.90 mg/dL [facility] [place] Comment on above: These results are not intended for use in patients <18 years of age. eGFR results are calculated without a race factor using the 2020 CKD-EPI equation. Careful clinical correlation is recommended, particularly when comparing to results calculated using previous equations. The CKD-EPI equation is less accurate in patients with extremes of muscle mass, extra-renal metabolism of creatine, excessive creatine ingestion, or following therapy that affects renal tubular secretion. Glucose [Mass/Vol] 79 mg/dL 74 - 99 mg/dL [facility] Interpretation and review of laboratory results Abnormal [facility] Potassium [Moles/Vol] 3.8 mmol/L 3.7 - 5.3 mmol/L [facility] Sodium [Moles/Vol] 137 mmol/L 136 - 145 mmol/L [facility] Urea nitrogen [Mass/Vol] 8 mg/dL 8 - 23 mg/dL [facility] CBC with Auto Differentialon 12-01-2023 Basophils (Bld) [#/Vol] 0.04 10*3/uL [facility] Basophils/100 WBC (Bld) 1 % 0 - 2 % [facility] Eosinophils (Bld) [#/Vol] 0.15 10*3/uL [facility] Eosinophils/100 WBC (Bld) 2 % 1 - 4 % [facility] Erythrocyte distribution width (RBC) [Ratio] 18.8 % High 11.8 - 14.4 % [facility] Hematocrit (Bld) [Volume fraction] 22.9 % Low 36.3 - 47.1 % [facility] Hemoglobin (Bld) [Mass/Vol] 7.1 g/dL Low 11.9 - 15.1 g/dL [facility] Immature granulocytes (Bld) [#/Vol] 0.04 10*3/uL [facility] Immature granulocytes/100 WBC (Bld) 1 % High 0 [facility] Interpretation and review of laboratory results Abnormal [facility] Lymphocytes/100 WBC (Bld) 17 % Low 24 - 43 % [facility] Lymphocytes/100 WBC (Bld) 1.27 % [facility] MCH (RBC) [Entitic mass] 30.1 pg 25.2 - 33.5 pg [facility] MCHC (RBC) [Mass/Vol] 31.0 g/dL 28.4 - 34.8 g/dL [facility] MCV (RBC) [Entitic vol] 97.0 fL 82.6 - 102.9 fL [facility] Monocytes/100 WBC (Bld) 8 % 3 - 12 % [facility] Monocytes/100 WBC (Bld) 0.61 % [facility] Neutrophils/100 WBC (Bld) 72 % High 36 - 65 % [facility] Nucleated RBC/100 WBC (Bld) [Ratio] 0.0 % 0.0 per 100 WBC [facility] Platelet mean volume (Bld) [Entitic vol] 10.2 fL 8.1 - 13.5 fL [facility] Platelets (Bld) [#/Vol] 201 10*3/uL [facility] RBC (Bld) [#/Vol] 2.36 10*6/uL Low 3.95 - 5.11 m/uL [facility] RBC (Bld) [#/Vol] ANISOCYTOSIS PRESENT [facility] Segmented neutrophils/100 WBC (Bld) 5.55 % [facility] WBC other (Bld) [#/Vol] 7.7 [facility] CBC with Diffon 12-01-2023 Abs. Basophil 0.04 k/uL Normal 0.00-0.20 [facility] Comment on above: Performed By: #### H H #### [facility] [facility] [place] [address] Sales Ledger Administrator: Dwain Aldana MD Abs.Imm.Granulocyte 0.04 k/uL Normal 0.00-0.30 [facility] Comment on above: Performed By: #### H H #### [address] [address] Sales Ledger Administrator: Dwain Aldana MD Abs.Neutrophil (Seg) 5.55 k/uL Normal 1.50-8.10 [facility] Comment on above: Performed By: #### H H #### [address] [address] Sales Ledger Administrator: Dwain Aldana MD Basophils/100 WBC (Bld) 1 % Normal 0-2 [facility] Comment on above: Performed By: #### H H #### [address] [address] Sales Ledger Administrator: Dwain Aldana MD Eosinophils (Bld) [#/Vol] 0.15 10*3/uL Normal 0.00-0.44 [facility] Comment on above: Performed By: #### H H #### [address] [address] Sales Ledger Administrator: Dwain Aldana MD Eosinophils/100 WBC (Bld) 2 % Normal 1-4 [facility] Comment on above: Performed By: #### H H #### [address] [address] Sales Ledger Administrator: Dwain Aldana MD Erythrocyte distribution width (RBC) [Ratio] 18.8 % High 11.8-14.4 [facility] Comment on above: Performed By: #### H H #### [address] [address] Sales Ledger Administrator: Dwain Aldana MD Hematocrit (Bld) [Volume fraction] 22.9 % Low 36.3-47.1 [facility] Comment on above: Performed By: #### H H #### [address] [address] Sales Ledger Administrator: Dwain Aldana MD Hemoglobin (Bld) [Mass/Vol] 7.1 g/dL Low 11.9-15.1 [facility] Comment on above: Performed By: #### H H #### [address] [address] Sales Ledger Administrator: Dwain Aldana MD Immature granulocytes/100 WBC (Bld) 1 % High 0 [facility] Comment on above: Performed By: #### H H #### [place] [address] Sales Ledger Administrator: Dwain Aldana MD Lymphocytes (Bld) [#/Vol] 1.27 10*3/uL Normal 1.10-3.70 [facility] Comment on above: Performed By: #### H H #### [place] [address] Sales Ledger Administrator: Dwain Aldana MD Lymphocytes/100 WBC (Bld) 17 % Low 24-43 [facility] Comment on above: Performed By: #### H H #### [place] [address] Sales Ledger Administrator: Dwain Aldana MD MCH (RBC) [Entitic mass] 30.1 pg Normal 25.2-33.5 [facility] Comment on above: Performed By: #### H H #### [place] [address] Sales Ledger Administrator: Dwain Aldana MD MCHC (RBC) [Mass/Vol] 31.0 g/dL Normal 28.4-34.8 [facility] Comment on above: Performed By: #### H H #### [place] [address] Sales Ledger Administrator: Dwain Aldana MD MCV (RBC) [Entitic vol] 97.0 fL Normal 82.6-102.9 [facility] Comment on above: Performed By: #### H H #### [address] [address] Sales Ledger Administrator: Dwain Aldana MD Monocytes (Bld) [#/Vol] 0.61 10*3/uL Normal 0.10-1.20 [facility] Comment on above: Performed By: #### H H #### [address] [address] Sales Ledger Administrator: Dwain Aldana MD Monocytes/100 WBC (Bld) 8 % Normal 3-12 [facility] Comment on above: Performed By: #### H H #### [address] [address] Sales Ledger Administrator: Dwain Aldana MD Neutrophil (Seg) 72 % High 36-65 [facility] Comment on above: Performed By: #### H H #### [address] [address] Sales Ledger Administrator: Dwain Aldana MD NRBC Automated 0.0 per 100 WBC Normal 0.0 [facility] Comment on above: Performed By: #### H H #### [address] [address] Sales Ledger Administrator: Dwain Aldana MD Platelet mean volume (Bld) [Entitic vol] 10.2 fL Normal 8.1-13.5 [facility] Comment on above: Performed By: #### H H #### [address] [address] Sales Ledger Administrator: Dwain Aldana MD Platelets (Bld) [#/Vol] 201 10*3/uL Normal 138-453 [facility] Comment on above: Performed By: #### H H #### [address] [address] Sales Ledger Administrator: Dwain Aldana MD RBC (Bld) [#/Vol] 2.36 10*6/uL Low 3.95-5.11 [facility] Comment on above: Performed By: #### H H #### [facility] [place] [address] Sales Ledger Administrator: Dwain Aldana MD RBC morphology finding Nom (Bld) ANISOCYTOSIS PRESENT Normal [facility] Comment on above: Performed By: #### H H #### [facility] [employer] [address] [place] [phone] Sales Ledger Administrator: Dwain Aldana MD WBC (Bld) [#/Vol] 7.7 10*3/uL Normal 3.5-11.3 [facility] Comment on above: Performed By: #### H H #### [address] [address] Sales Ledger Administrator: Dwain Aldana MD Hemoglobin and Hematocriton 12-01-2023 Hematocrit (Bld) [Volume fraction] 27.1 % Low 36.3 - 47.1 % [facility] Hemoglobin (Bld) [Mass/Vol] 8.9 g/dL Low 11.9 - 15.1 g/dL [facility] Interpretation and review of laboratory results Abnormal [facility] Hematocrit (Bld) [Volume fraction] 28.7 % Low 36.3 - 47.1 % [facility] Hemoglobin (Bld) [Mass/Vol] 8.8 g/dL Low 11.9 - 15.1 g/dL [facility] Interpretation and review of laboratory results Abnormal [facility] Hgb/Hcton 12-01-2023 Hematocrit (Bld) [Volume fraction] 27.1 % Low 36.3-47.1 [facility] Comment on above: Performed By: #### T SHX, PRCAL #### [address] [address] Sales Ledger Administrator: Dwain Aldana MD Hemoglobin (Bld) [Mass/Vol] 8.9 g/dL Low 11.9-15.1 [facility] Comment on above: Performed By: #### T SHX, PRCAL #### [facility] [address] [place] [address] [phone] Sales Ledger Administrator: Dwain Aldana MD Hematocrit (Bld) [Volume fraction] 28.7 % Low 36.3-47.1 [facility] Comment on above: Performed By: #### H H #### [facility] [address] [place] [address] [phone] Sales Ledger Administrator: Dwain Aldana MD Hemoglobin (Bld) [Mass/Vol] 8.8 g/dL Low 11.9-15.1 [facility] Comment on above: Performed By: #### H H #### [facility] [employer] [address] [place] [address] [phone] Sales Ledger Administrator: Dwain Aldana MD No Panel Informationon 11-30 Blood Bank Blood Product Expiration Date [facility] Blood Bank ISBT Product Blood Type 6200 [facility] Blood Bank Unit Type and Rh Positive [facility] Component Leukocyte Reduced Red Cell [facility] Crossmatch Result COMPATIBLE [facility] Dispense Status Blood Bank TRANSFUSED [facility] Product Code Blood Bank [id number] [facility] Transfusion Status OK TO TRANSFUSE [facility] Unit Divison 0 [facility] TYPE AND SCREENon 12-01-2023 ABO/Rh Positive [facility] Arm Band Number [id number] [facility] Blood Bank Blood Product Expiration Date [facility] Blood Bank Sample Expiration 12/02/2023,2359 [facility] Blood product unit ID (Dose) [#] [id number] [facility] Blood product unit ID (Dose) [#] [id number] [facility] Blood product unit ID (Dose) [#] [id number] [facility] Unit Issue Date/Time [id number] [facility] Issue Date/Time [id number] [facility] Unit Issue Date/Time [id number] [facility] Basic Metab w/rfx MGon 11-29 Anion gap [Moles/Vol] 4 mmol/L Low 9-16 [facility] Comment on above: Performed By: #### B ALOK FINK4, CDP #### [employer] [address] [place] [address] Sales Ledger Administrator: Dwain Aldana MD Calcium [Mass/Vol] 6.6 mg/dL Low 8.6-10.4 [facility] Comment on above: Performed By: #### B ALOK FINK4, CDP #### [employer] [address] [place] [phone] Sales Ledger Administrator: Dwain Aldana MD Chloride [Moles/Vol] 108 mmol/L High 98-107 [facility] Comment on above: Performed By: #### B ALOK FINK4, CDP #### [employer] [address] [place] [address] Sales Ledger Administrator: Dwain Aldana MD CO2 [Moles/Vol] 26 mmol/L Normal 20-31 [facility] Comment on above: Performed By: #### B ALEKS FT4, CDP #### [employer] [address] [place] [address] Sales Ledger Administrator: Dwain Aldana MD Creatinine [Mass/Vol] 0.4 mg/dL Low 0.50-0.90 [facility] Comment on above: Performed By: #### B ALEKS FT4, CDP #### [employer] [address] [place] [phone] Sales Ledger Administrator: Dwain Aldana MD GFR/1.73 sq M.predicted among non-blacks MDRD (S/P/Bld) [Vol rate/Area] mL/min/{1.73_m2} Normal >60 [facility] Comment on above: Result Comment: These results are not intended for use in patients <18 years of age. eGFR results are calculated without a race factor using the 2020 CKD-EPI equation. Careful clinical correlation is recommended, particularly when comparing to results calculated using previous equations. The CKD-EPI equation is less accurate in patients with extremes of muscle mass, extra-renal metabolism of creatine, excessive creatine ingestion, or following therapy that affects renal tubular secretion. Performed By: #### B MPX, FT4, CDP #### [facility] [address] [place] [phone] Sales Ledger Administrator: Dwain Aldana MD Glucose [Mass/Vol] 83 mg/dL Normal 74-99 [facility] Comment on above: Performed By: #### B SWATHIX FT4, CDP #### [address] [address] Sales Ledger Administrator: Dwain Aldana MD Potassium [Moles/Vol] 4.4 mmol/L Normal 3.7-5.3 [facility] Comment on above: Performed By: #### B MPX FT4, CDP #### [facility] [employer] [address] [place] [phone] Sales Ledger Administrator: Dwain Aldana MD Sodium [Moles/Vol] 138 mmol/L Normal 136-145 [facility] Comment on above: Performed By: #### B MPX FT4, CDP #### [facility] [address] [place] [phone] Sales Ledger Administrator: Dwain Aldana MD Urea nitrogen [Mass/Vol] 12 mg/dL Normal 8-23 [facility] Comment on above: Performed By: #### B MPX, FT4, CDP #### [facility] [employer] [address] [place] [address] Sales Ledger Administrator: Dwain Aldana MD Basic Metabolic Panel w/ Ref merlene to MGon 11-30-2023 Anion gap [Moles/Vol] 4 mmol/L Low 9 - 16 mmol/L [facility] Calcium [Mass/Vol] 6.6 mg/dL Low 8.6 - 10. 4 mg/dL [facility] Chloride [Moles/Vol] 108 mmol/L High 98 - 10 7 mmol/L [facility] CO2 [Moles/Vol] 26 mmol/L 20 - 31 mmol/L [facility] Creatinine [Mass/Vol] 0.4 mg/dL Low 0.50 - 0.90 mg/dL [facility] [employer] [facility] - [facility] Comment on above: These results are not intended for use in patients <18 years of age. eGFR results are calculated without a race factor using the 2020 CKD-EPI equation. Careful clinical correlation is recommended, particularly when comparing to results calculated using previous equations. The CKD-EPI equation is less accurate in patients with extremes of muscle mass, extra-renal metabolism of creatine, excessive creatine ingestion, or following therapy that affects renal tubular secretion. Glucose [Mass/Vol] 83 mg/dL 74 - 99 mg/dL [facility] Interpretation and review of laboratory results Abnormal [facility] Potassium [Moles/Vol] 4.4 mmol/L 3.7 - 5.3 mmol/L [facility] Sodium [Moles/Vol] 138 mmol/L 136 - 145 mmol/L [facility] Urea nitrogen [Mass/Vol] 12 mg/dL 8 - 23 mg/dL [facility] CBC with Auto Differentialon 11-30-2023 Basophils (Bld) [#/Vol] 0.03 10*3/uL [facility] Basophils/100 WBC (Bld) 0 % 0 - 2 % [facility] Eosinophils (Bld) [#/Vol] 0.09 10*3/uL [facility] Eosinophils/100 WBC (Bld) 1 % 1 - 4 % [facility] Erythrocyte distribution width (RBC) [Ratio] 17.1 % High 11.8 - 14.4 % [facility] Hematocrit (Bld) [Volume fraction] 19.8 % Low 36.3 - 47.1 % [facility] Hemoglobin (Bld) [Mass/Vol] 6.2 g/dL Critically low 11.9 - 15.1 g/dL [facility] Immature granulocytes (Bld) [#/Vol] 0.06 10*3/uL [facility] Immature granulocytes/100 WBC (Bld) 1 % High 0 [facility] Interpretation and review of laboratory results Abnormal [facility] Lymphocytes/100 WBC (Bld) 19 % Low 24 - 43 % [facility] Lymphocytes/100 WBC (Bld) 1.67 % [facility] MCH (RBC) [Entitic mass] 30.7 pg 25.2 - 33.5 pg [facility] MCHC (RBC) [Mass/Vol] 31.3 g/dL 28.4 - 34.8 g/dL [facility] MCV (RBC) [Entitic vol] 98.0 fL 82.6 - 102.9 fL [facility] Monocytes/100 WBC (Bld) 8 % 3 - 12 % [facility] Monocytes/100 WBC (Bld) 0.73 % [facility] Neutrophils/100 WBC (Bld) 70 % High 36 - 65 % [facility] Nucleated RBC/100 WBC (Bld) [Ratio] 0.0 % 0.0 per 100 WBC [facility] Platelet mean volume (Bld) [Entitic vol] 10.3 fL 8.1 - 13.5 fL [facility] Platelets (Bld) [#/Vol] 171 10*3/uL [facility] RBC (Bld) [#/Vol] 2.02 10*6/uL Low 3.95 - 5.11 m/uL [facility] RBC (Bld) [#/Vol] ANISOCYTOSIS PRESENT [facility] Segmented neutrophils/100 WBC (Bld) 6.10 % [facility] WBC other (Bld) [#/Vol] 8.7 [facility] CBC with Diffon 11-30-2023 Abs. Basophil 0.03 k/uL Normal 0.00-0.20 [facility] Comment on above: Performed By: #### B MPX, FT4, CDP #### [facility] [address] [place] [phone] Sales Ledger Administrator: Dwain Aldana MD Abs.Imm.Granulocyte 0.06 k/uL Normal 0.00-0.30 [facility] Comment on above: Performed By: #### B MPX, FT4, CDP #### [facility] [address] [place] [phone] Sales Ledger Administrator: Dwain Aldana MD Abs.Neutrophil (Seg) 6.10 k/uL Normal 1.50-8.10 [facility] Comment on above: Performed By: #### B MPX, FT4, CDP #### [facility] [address] [place] [phone] Sales Ledger Administrator: Dwain Aldana MD Basophils/100 WBC (Bld) 0 % Normal 0-2 [facility] Comment on above: Performed By: #### B MPX, FT4, CDP #### [facility] [employer] [address] [place] [phone] Sales Ledger Administrator: Dwain Aldana MD Eosinophils (Bld) [#/Vol] 0.09 10*3/uL Normal 0.00-0.44 [facility] Comment on above: Performed By: #### B MPX, FT4, CDP #### [facility] [address] [place] [phone] Sales Ledger Administrator: Dwain Aldana MD Eosinophils/100 WBC (Bld) 1 % Normal 1-4 [facility] Comment on above: Performed By: #### B MPX, FT4, CDP #### [facility] [address] [place] [phone] Sales Ledger Administrator: Dwain Aldana MD Immature granulocytes/100 WBC (Bld) 1 % High 0 [facility] Comment on above: Performed By: #### B MPX, FT4, CDP #### [facility] [address] [place] [address] Sales Ledger Administrator: Dwain Aldana MD Lymphocytes (Bld) [#/Vol] 1.67 10*3/uL Normal 1.10-3.70 [facility] Comment on above: Performed By: #### B MPX, FT4, CDP #### [facility] [employer] [address] [place] [phone] Sales Ledger Administrator: Dwain Aldana MD Lymphocytes/100 WBC (Bld) 19 % Low 24-43 [facility] Comment on above: Performed By: #### B MPX, FT4, CDP #### [facility] [employer] [address] [place] [phone] Sales Ledger Administrator: Dwain Aldana MD Monocytes (Bld) [#/Vol] 0.73 10*3/uL Normal 0.10-1.20 [facility] Comment on above: Performed By: #### B MPX, FT4, CDP #### [facility] [employer] [address] [place] [phone] Sales Ledger Administrator: Dwain Aldana MD Monocytes/100 WBC (Bld) 8 % Normal 3-12 [facility] Comment on above: Performed By: #### B MPX, FT4, CDP #### [facility] [address] [place] [phone] Sales Ledger Administrator: Dwain Aldana MD Neutrophil (Seg) 70 % High 36-65 [facility] Comment on above: Performed By: #### B MPX, FT4, CDP #### [facility] [employer] [address] [place] [phone] Sales Ledger Administrator: Dwain Aldana MD Erythrocyte distribution width (RBC) [Ratio] 17.1 % High 11.8-14.4 [facility] Comment on above: Performed By: #### B MPX, FT4, CDP #### [facility] [address] [place] [phone] Sales Ledger Administrator: Dwain Aldana MD Hematocrit (Bld) [Volume fraction] 19.8 % Low 36.3-47.1 [facility] Comment on above: Performed By: #### B MPX, FT4, CDP #### [facility] [employer] [address] [place] [phone] Sales Ledger Administrator: Dwain Aldana MD Hemoglobin (Bld) [Mass/Vol] 6.2 g/dL Critically low 11.9-15.1 [facility] Comment on above: Performed By: #### B MPX, FT4, CDP #### [facility] [employer] [address] [place] [phone] Sales Ledger Administrator: Dwain Aldana MD MCH (RBC) [Entitic mass] 30.7 pg Normal 25.2-33.5 [facility] Comment on above: Performed By: #### B MPX, FT4, CDP #### [facility] [employer] [address] [place] [phone] Sales Ledger Administrator: Dwain Aldana MD MCHC (RBC) [Mass/Vol] 31.3 g/dL Normal 28.4-34.8 [facility] Comment on above: Performed By: #### B MPX, FT4, CDP #### [facility] [employer] [address] [place] [phone] Sales Ledger Administrator: Dwain Aldana MD MCV (RBC) [Entitic vol] 98.0 fL Normal 82.6-102.9 [facility] Comment on above: Performed By: #### B MPX, FT4, CDP #### [facility] [employer] [address] [place] [phone] Sales Ledger Administrator: Dwain Aldana MD NRBC Automated 0.0 per 100 WBC Normal 0.0 [facility] Comment on above: Performed By: #### B MPX, FT4, CDP #### [facility] [employer] [address] [place] [address] Sales Ledger Administrator: Dwain Aldana MD Platelet mean volume (Bld) [Entitic vol] 10.3 fL Normal 8.1-13.5 [facility] Comment on above: Performed By: #### B MPX, FT4, CDP #### [facility] [employer] [address] [place] [phone] Sales Ledger Administrator: Dwain Aldana MD Platelets (Bld) [#/Vol] 171 10*3/uL Normal 138-453 [facility] Comment on above: Performed By: #### B MPX, FT4, CDP #### [facility] [employer] [address] [place] [phone] Sales Ledger Administrator: Dwain Aldana MD RBC (Bld) [#/Vol] 2.02 10*6/uL Low 3.95-5.11 [facility] Comment on above: Performed By: #### B MPX, FT4, CDP #### [facility] [employer] [address] [place] [phone] Sales Ledger Administrator: Dwain Aldana MD RBC morphology finding Nom (Bld) ANISOCYTOSIS PRESENT Normal [facility] Comment on above: Performed By: #### B MPX, FT4, CDP #### [facility] [employer] [address] [place] [phone] Sales Ledger Administrator: Dwain Aldana MD WBC (Bld) [#/Vol] 8.7 10*3/uL Normal 3.5-11.3 [facility] Comment on above: Performed By: #### B MPX, FT4, CDP #### [facility] [employer] [address] [place] [phone] Sales Ledger Administrator: Dwain Aldana MD Calcium, Ionicon 11-30-2023 Calcium [Moles/Vol] 1.07 mmol/L Low 1.13-1.33 [facility] Comment on above: Performed By: #### B MPX, MG, CDP #### [employer] [address] [place], [place] [phone] Sales Ledger Administrator: Dwain Aldana MD Calcium, Ionizedon 4 Calcium.ionized (Bld) [Moles/Vol] 1.07 mmol/L Low 1.13 - 1.33 mmol/L [facility] Cult, Bloodon 11-30-2023 Cult, Blood Specimen Description .BLOOD Special Requests Culture NO GROWTH 5 DAYS Report Status FINAL 11/30/2023 [facility] Comment on above: Performed By: #### B MPX, MG, CDP #### [employer] [facility] [place] [address] Sales Ledger Administrator: Dwain Aldana MD Cult,Bloodon 11-30-2023 Cult,Blood Specimen Description .BLOOD Special Requests Culture NO GROWTH 5 DAYS Report Status FINAL 11/30/2023 [facility] Comment on above: Performed By: #### B MPX, MG, CDP #### [employer] [facility] [place], [place] [phone] Sales Ledger Administrator: Dwain Aldana MD Culture, Blood 1on 4 Microorganism identified Cx Nom (Unsp spec) NO GROWTH 5 DAYS [facility] Service comment (Unsp spec) [Interp] [facility] Specimen Description .BLOOD [facility] Culture, Blood 2on 4 Microorganism identified Cx Nom (Unsp spec) NO GROWTH 5 DAYS [facility] Service comment (Unsp spec) [Interp] [facility] Specimen Description .BLOOD [facility] Glucose,Whole Bloodon 2023 Glucose [Mass/Vol] 79 mg/dL Normal 65-105 [facility] Hemoglobin and Hematocriton 11-30-2023 Hematocrit (Bld) [Volume fraction] 23.8 % Low 36.3 - 47.1 % [facility] Hemoglobin (Bld) [Mass/Vol] 7.9 g/dL Low 11.9 - 15.1 g/dL [facility] Interpretation and review of laboratory results Abnormal [facility] Hematocrit (Bld) [Volume fraction] 27.5 % Low 36.3 - 47.1 % [facility] Hemoglobin (Bld) [Mass/Vol] 8.6 g/dL Low 11.9 - 15.1 g/dL [facility] Interpretation and review of laboratory results Abnormal [facility] Hematocrit (Bld) [Volume fraction] 26.2 % Low 36.3 - 47.1 % [facility] Hemoglobin (Bld) [Mass/Vol] 8.3 g/dL Low 11.9 - 15.1 g/dL [facility] Interpretation and review of laboratory results Abnormal [facility] Hgb/Hcton 11-30-2023 Hematocrit (Bld) [Volume fraction] 23.8 % Low 36.3-47.1 [facility] Comment on above: Performed By: #### H H #### [facility] [address] [place] [address] Sales Ledger Administrator: Dwain Aldana MD Hemoglobin (Bld) [Mass/Vol] 7.9 g/dL Low 11.9-15.1 [facility] Comment on above: Performed By: #### H H #### [facility] [address] [place] [address] Sales Ledger Administrator: Dwain Aldana MD Hematocrit (Bld) [Volume fraction] 27.5 % Low 36.3-47.1 [facility] Comment on above: Performed By: #### B MPX, MG, CDP #### [employer] [address] [place] [address] Sales Ledger Administrator: Dwain Aldana MD Hemoglobin (Bld) [Mass/Vol] 8.6 g/dL Low 11.9-15.1 [facility] Comment on above: Performed By: #### B MPX, MG, CDP #### [facility] [address] [place] [address] [phone] Sales Ledger Administrator: Dwain Aldana MD Hematocrit (Bld) [Volume fraction] 26.2 % Low 36.3-47.1 [facility] Comment on above: Performed By: #### H H #### [facility] [address] [place] [address] Sales Ledger Administrator: Dwain Aldana MD Hemoglobin (Bld) [Mass/Vol] 8.3 g/dL Low 11.9-15.1 [facility] Comment on above: Performed By: #### H H #### [facility] [employer] [address] [place] [phone] Sales Ledger Administrator: Dwain Aldana MD Lactic Acidon 11-30-2023 Lactic Acid,Whole Bl 0.6 mmol/L Low 0.7-2.1 [facility] Comment on above: Performed By: #### B MPX, MG, CDP #### [facility] [employer] [facility] [place] [address] Sales Ledger Administrator: Dwain Aldana MD Lactic Acid, Whole Blood 0.6 mmol/L Low 0.7 - 2.1 mmol/L [facility] MRSA DNA Probe, Nasalon MRSA, DNA, Nasal Negative NEGATIVE [facility] Comment on above: NEGATIVE: MRSA DNA n ot detected by nucleic acid amplification. Results should be used as an adjunct to nosocomial control efforts to identify patients needing enhanced precautions. The test is not intended to identify patients with staphylococcal infections. Results should not be used to guide or monitor treatment for MRSA infections. Specimen Description .NASAL SWAB [facility] MRSA, DNA, Nasalon MRSA, DNA, Nasal Negative Normal NEG [facility] Comment on above: Result Comment: NEGA TIVE: MRSA DNA not detected by nucleic acid amplification. Results should be used as an adjunct to nosocomial control efforts to identify patients needing enhanced precautions. The test is not intended to identify patients with staphylococcal infections. Results should not be used to guide or monitor treatment for MRSA infections. Performed By: #### M RSANO #### [employer] [address] [place], [place] [phone] Sales Ledger Administrator: Dwain Aldana MD No Panel Informationon 11-29 Interpretation and review of laboratory results Abnormal [facility] POC Glucose Fingerstickon Glucose [Mass/Vol] 79 mg/dL 65 - 105 mg/dL [facility] PREVIOUS SPECIMENon 11-30-19 24 [facility] Procalcitoninon 11-30-2023 Procalcitonin 0.05 ng/mL Normal <0.09 [facility] Comment on above: Result Comment: Suspected Sepsis: <0.50 ng/mL Low likelihood of sepsis. 0.50-2.00 ng/mL Increased likelihood of sepsis. Antibiotics encouraged. >2.00 ng/mL High risk of sepsis/shock. Antibiotics strongly encouraged. Suspected Lower Resp Tract Infections: <0.24 ng/mL Low likelihood of bacterial infection. >0.24 ng/mL Increased likelihood of bacterial infection. Antibiotics encouraged. With successful antibiotic therapy, PCT levels should decrease rapidly. (Half-life of 24 to 36 hours.) Procalcitonin values from samples collected within the first 6 hours of systemic infection may still be low. Retesting may be indicated. Values from day 1 and day 4 can be entered into the Change in Procalcitonin Calculator ([email or web address]) to determine the patient's Mortality Risk Prognosis In healthy neonates, plasma Procalcitonin (PCT) concentrations increase gradually after , reaching peak values at about 24 hours of age then decrease to normal values below 0.5 ng/mL by 48-72 hours of age. Performed By: #### T SHX, PRCAL #### [employer] [address] [place], [place] [id number] Sales Ledger Administrator: Dwain Aldana MD Specimen Rejectionon 024 Reason for rejection Unable to perform t esting: Specimen clotted. Normal [facility] Comment on above: Performed By: #### H H #### [employer] [address] [place] [address] [phone] Sales Ledger Administrator: Dwain Aldana MD Source of sample .BLOOD Normal [facility] Comment on above: Performed By: #### H H #### [facility] [address] [place] [address] [phone] Sales Ledger Administrator: Dwain Aldana MD Test ordered [facility] Comment on above: Performed By: #### H H #### [facility] [address] [place] [address] [phone] Sales Ledger Administrator: Dwain Aldana MD T4, Freeon 11-30-2023 Free T4 [Mass/Vol] 1.3 ng/dL 0.92 - 1.68 ng/dL [facility] Thyroxine, Freeon 11-30-2023 Thyroxine, Free 1.3 ng/dL Normal 0.92-1.68 [facility] Comment on above: Performed By: #### B MPX, MG, CDP #### [facility] [address] [place] [address] [phone] Sales Ledger Administrator: Dwain Aldana MD Type + Screenon 11-30-2023 Type + Screen Sample Expiration 12/02/2023,2359 Arm Band Number [id number] ABO/Rh(D) A POSITIVE Antibody Screen NEGATIVE Unit Number [id number] Blood Component Type Leukocyte Reduced Red Cell Unit Division 00 Status of Unit TRANSFUSED Transfusion Status OK TO TRANSFUSE Crossmatch Result COMPATIBLE Unit Number [id number] Blood Component Type Leukocyte Reduced Red Cell Unit Division 00 Status of Unit TRANSFUSED Transfusion Status OK TO TRANSFUSE Crossmatch Result COMPATIBLE Unit Number [id number] Blood Component Type Leukocyte Reduced Red Cell Unit Division 00 Status of Unit TRANSFUSED Transfusion Status OK TO TRANSFUSE Crossmatch Result COMPATIBLE Normal [facility] Comment on above: Performed By: #### H H #### [facility] [address] [place] [address] [phone] Sales Ledger Administrator: Dwain Aldana MD BLOOD BANK SPECIMENon 2023 [facility] Basic Metab w/rfx MGon 11-28 Anion gap [Moles/Vol] 9 mmol/L Normal 9-16 [facility] Comment on above: Performed By: #### B MPX, MG, CDP #### [facility] [address] [place] [phone] Sales Ledger Administrator: Dwain Aldana MD Calcium [Mass/Vol] 6.7 mg/dL Low 8.6-10.4 [facility] Comment on above: Performed By: #### B MPX, MG, CDP #### [facility] [address] [place] [address] [phone] Sales Ledger Administrator: Dwain Aldana MD Chloride [Moles/Vol] 103 mmol/L Normal 98-107 [facility] Comment on above: Performed By: #### B MPX, MG, CDP #### [facility] [address] [place] [address] [phone] Sales Ledger Administrator: Dwain Aldana MD CO2 [Moles/Vol] 23 mmol/L Normal 20-31 [facility] Comment on above: Performed By: #### B MPX, MG, CDP #### [facility] [address] [place] [phone] Sales Ledger Administrator: Dwain Aldana MD Creatinine [Mass/Vol] 0.4 mg/dL Low 0.50-0.90 [facility] Comment on above: Performed By: #### B MPX, MG, CDP #### [facility] [address] [place] [address] [phone] Sales Ledger Administrator: Dwain Aldana MD GFR/1.73 sq M.predicted among non-blacks MDRD (S/P/Bld) [Vol rate/Area] mL/min/{1.73_m2} Normal >60 [facility] Comment on above: Result Comment: These results are not intended for use in patients <18 years of age. eGFR results are calculated without a race factor using the 2020 CKD-EPI equation. Careful clinical correlation is recommended, particularly when comparing to results calculated using previous equations. The CKD-EPI equation is less accurate in patients with extremes of muscle mass, extra-renal metabolism of creatine, excessive creatine ingestion, or following therapy that affects renal tubular secretion. Performed By: #### B MPX MG, CDP #### [facility] [address] [place] [phone] Sales Ledger Administrator: Dwain Aldana MD Glucose [Mass/Vol] 210 mg/dL High 74-99 [facility] Comment on above: Performed By: #### B MPX MG, CDP #### [facility] [address] [place] [address] [phone] Sales Ledger Administrator: Dwain Aldana MD Potassium [Moles/Vol] 3.3 mmol/L Low 3.7-5.3 [facility] Comment on above: Performed By: #### B MPX MG, CDP #### [facility] [address] [place] [phone] Sales Ledger Administrator: Dwain Aldana MD Sodium [Moles/Vol] 135 mmol/L Low 136-145 [facility] Comment on above: Performed By: #### B MPX MG, CDP #### [facility] [address] [place] [address] [phone] Sales Ledger Administrator: Dwain Aldana MD Urea nitrogen [Mass/Vol] 9 mg/dL Normal 8-23 [facility] Comment on above: Performed By: #### B MPX, MG, CDP #### [facility] [address] [place] [phone] Sales Ledger Administrator: Dwain Aldana MD Basic Metabolic Panel w/ Ref merlene to [facility] 11-29-2023 Anion gap [Moles/Vol] 9 mmol/L 9 - 16 mmol/L [facility] Calcium [Mass/Vol] 6.7 mg/dL Low 8.6 - 10. 4 mg/dL [facility] Chloride [Moles/Vol] 103 mmol/L 98 - 10 7 mmol/L [facility] CO2 [Moles/Vol] 23 mmol/L 20 - 31 mmol/L [facility] Creatinine [Mass/Vol] 0.4 mg/dL Low 0.50 - 0.90 mg/dL [facility] Comment on above: These results are not intended for use in patients <18 years of age. eGFR results are calculated without a race factor using the 2020 CKD-EPI equation. Careful clinical correlation is recommended, particularly when comparing to results calculated using previous equations. The CKD-EPI equation is less accurate in patients with extremes of muscle mass, extra-renal metabolism of creatine, excessive creatine ingestion, or following therapy that affects renal tubular secretion. Glucose [Mass/Vol] 210 mg/dL High 74 - 99 mg/dL [facility] Interpretation and review of laboratory results Abnormal [facility] Potassium [Moles/Vol] 3.3 mmol/L Low 3.7 - 5.3 mmol/L [facility] Sodium [Moles/Vol] 135 mmol/L Low 136 - 145 mmol/L [facility] Urea nitrogen [Mass/Vol] 9 mg/dL 8 - 23 mg/dL [facility] CBC with Auto Differentialon 11-29-2023 Basophils (Bld) [#/Vol] 0.03 10*3/uL [facility] Basophils/100 WBC (Bld) 0 % 0 - 2 % [facility] Eosinophils (Bld) [#/Vol] 0.04 10*3/uL [facility] Eosinophils/100 WBC (Bld) 0 % Low 1 - 4 % [facility] Erythrocyte distribution width (RBC) [Ratio] 19.0 % High 11.8 - 14.4 % [facility] Hematocrit (Bld) [Volume fraction] 20.7 % Low 36.3 - 47.1 % [facility] Hemoglobin (Bld) [Mass/Vol] 6.2 g/dL Critically low 11.9 - 15.1 g/dL [facility] Immature granulocytes (Bld) [#/Vol] 0.07 10*3/uL [facility] Immature granulocytes/100 WBC (Bld) 1 % High 0 [facility] Interpretation and review of laboratory results Abnormal [facility] Lymphocytes/100 WBC (Bld) 7 % Low 24 - 43 % [facility] Lymphocytes/100 WBC (Bld) 0.79 % Low [facility] MCH (RBC) [Entitic mass] 30.7 pg 25.2 - 33.5 pg [facility] MCHC (RBC) [Mass/Vol] 30.0 g/dL 28.4 - 34.8 g/dL [facility] MCV (RBC) [Entitic vol] 102.5 fL 82.6 - 102.9 fL [facility] Monocytes/100 WBC (Bld) 4 % 3 - 12 % [facility] Monocytes/100 WBC (Bld) 0.53 % [facility] Neutrophils/100 WBC (Bld) 88 % High 36 - 65 % [facility] Nucleated RBC/100 WBC (Bld) [Ratio] 0.0 % 0.0 per 100 WBC [facility] Platelet mean volume (Bld) [Entitic vol] 10.8 fL 8.1 - 13.5 fL [facility] Platelets (Bld) [#/Vol] 245 10*3/uL [facility] RBC (Bld) [#/Vol] 2.02 10*6/uL Low 3.95 - 5.11 m/uL [facility] RBC (Bld) [#/Vol] ANISOCYTOSIS PRESENT [facility] Segmented neutrophils/100 WBC (Bld) 10.71 % High [facility] WBC other (Bld) [#/Vol] 12.2 High [facility] CBC with Diffon 11-29-2023 Abs. Basophil 0.03 k/uL Normal 0.00-0.20 [facility] Comment on above: Performed By: #### B MPX, MG, CDP #### [facility] [employer] [facility] [place] [address] Sales Ledger Administrator: Dwain Aldana MD Abs.Imm.Granulocyte 0.07 k/uL Normal 0.00-0.30 [facility] Comment on above: Performed By: #### B MPX, MG, CDP #### [facility] [employer] [address] [place] [address] Sales Ledger Administrator: Dwain Aldana MD Abs.Neutrophil (Seg) 10.71 k/uL High 1.50-8.10 [facility] Comment on above: Performed By: #### B MPX, MG, CDP #### [facility] [employer] [address] [place] [address] Sales Ledger Administrator: Dwain Aldana MD Basophils/100 WBC (Bld) 0 % Normal 0-2 [facility] Comment on above: Performed By: #### B MPX, MG, CDP #### [facility] [employer] [address] [place] [address] Sales Ledger Administrator: Dwain Aldana MD Eosinophils (Bld) [#/Vol] 0.04 10*3/uL Normal 0.00-0.44 [facility] Comment on above: Performed By: #### B MPX, MG, CDP #### [place] [address] Sales Ledger Administrator: Dwain Aldana MD Eosinophils/100 WBC (Bld) 0 % Low 1-4 [facility] Comment on above: Performed By: #### B MPX, MG, CDP #### [facility] [employer] [address] [place] [address] Sales Ledger Administrator: Dwain Aldana MD Erythrocyte distribution width (RBC) [Ratio] 19.0 % High 11.8-14.4 [facility] Comment on above: Performed By: #### B MPX, MG, CDP #### [facility] [employer] [address] [place] [address] Sales Ledger Administrator: Dwain Aldana MD Hematocrit (Bld) [Volume fraction] 20.7 % Low 36.3-47.1 [facility] Comment on above: Performed By: #### B MPX, MG, CDP #### [facility] [employer] [address] [place] [address] [phone] Sales Ledger Administrator: Dwain Aldana MD Hemoglobin (Bld) [Mass/Vol] 6.2 g/dL Critically low 11.9-15.1 [facility] Comment on above: Performed By: #### B MPX, MG, CDP #### [facility] [employer] [address] [place] [address] [phone] Sales Ledger Administrator: Dwain Aldana MD Immature granulocytes/100 WBC (Bld) 1 % High 0 [facility] Comment on above: Performed By: #### B MPX, MG, CDP #### [facility] [address] [place] [address] Sales Ledger Administrator: Dwain Aldana MD Lymphocytes (Bld) [#/Vol] 0.79 10*3/uL Low 1.10-3.70 [facility] Comment on above: Performed By: #### B MPX, MG, CDP #### [facility] [employer] [address] [place] [address] Sales Ledger Administrator: Dwain Aldana MD Lymphocytes/100 WBC (Bld) 7 % Low 24-43 [facility] Comment on above: Performed By: #### B MPX, MG, CDP #### [facility] [employer] [address] [place] [address] Sales Ledger Administrator: Dwain Aldana MD MCH (RBC) [Entitic mass] 30.7 pg Normal 25.2-33.5 [facility] Comment on above: Performed By: #### B MPX, MG, CDP #### [facility] [employer] [address] [place] [address] [phone] Sales Ledger Administrator: Dwain Aldana MD MCHC (RBC) [Mass/Vol] 30.0 g/dL Normal 28.4-34.8 [facility] Comment on above: Performed By: #### B MPX, MG, CDP #### [facility] [employer] [address] [place] [address] [phone] Sales Ledger Administrator: Dwain Aldana MD MCV (RBC) [Entitic vol] 102.5 fL Normal 82.6-102.9 [facility] Comment on above: Performed By: #### B MPX, MG, CDP #### [facility] [employer] [address] [place] [phone] Sales Ledger Administrator: Dwain Aldana MD Monocytes (Bld) [#/Vol] 0.53 10*3/uL Normal 0.10-1.20 [facility] Comment on above: Performed By: #### B MPX, MG, CDP #### [facility] [employer] [address] [place] [address] [phone] Sales Ledger Administrator: Dwain Aldana MD Monocytes/100 WBC (Bld) 4 % Normal 3-12 [facility] Comment on above: Performed By: #### B MPX, MG, CDP #### [facility] [employer] [address] [place] [address] [phone] Sales Ledger Administrator: Dwain Aldana MD Neutrophil (Seg) 88 % High 36-65 [facility] Comment on above: Performed By: #### B MPX, MG, CDP #### [address] [phone] Sales Ledger Administrator: Dwain Aldana MD NRBC Automated 0.0 per 100 WBC Normal 0.0 [facility] Comment on above: Performed By: #### B MPX, MG, CDP #### [facility] [employer] [address] [place] [address] [phone] Sales Ledger Administrator: Dwain Aldana MD Platelet mean volume (Bld) [Entitic vol] 10.8 fL Normal 8.1-13.5 [facility] Comment on above: Performed By: #### B MPX, MG, CDP #### [address] [address] Sales Ledger Administrator: Dwain Aldana MD Platelets (Bld) [#/Vol] 245 10*3/uL Normal 138-453 [facility] Comment on above: Performed By: #### B MPX, MG, CDP #### [address] [address] Sales Ledger Administrator: Dwain Aldana MD RBC (Bld) [#/Vol] 2.02 10*6/uL Low 3.95-5.11 [facility] Comment on above: Performed By: #### B MPX, MG, CDP #### [facility] [address] [place] [address] [phone] Sales Ledger Administrator: Dwain Aldana MD RBC morphology finding Nom (Bld) ANISOCYTOSIS PRESENT Normal [facility] Comment on above: Performed By: #### B MPX, MG, CDP #### [facility] [address] [place] [address] [phone] Sales Ledger Administrator: Dwain Aldana MD WBC (Bld) [#/Vol] 12.2 10*3/uL High 3.5-11.3 [facility] Comment on above: Performed By: #### B MPX, MG, CDP #### [address] [phone] Sales Ledger Administrator: Dwain Aldana MD CT SINUS WO CONTRASTon 11-28 CT SINUS WO CONTRAST EXAMINATION: CT OF THE SINUS WITHOUT CONTRAST 11/29/2023 9:27 am TECHNIQUE: CT of the sinuses was performed without the administration of intravenous contrast. Multiplanar reformatted images are provided for review. Automated exposure control, iterative reconstruction, and/or weight based adjustment of the mA/kV was utilized to reduce the radiation dose to as low as reasonably achievable. COMPARISON: None HISTORY: ORDERING SYSTEM PROVIDED HISTORY: sinus pain TECHNOLOGIST PROVIDED HISTORY: sinus pain FINDINGS: SINUSES/MASTOIDS: There is mild leftward deviation of the nasal septum. The nasal turbinates are unremarkable. There is chronic sinusitis involving the left maxillary sinus. There appears to be remote posttraumatic change to the left inferior orbital wall. The mastoid air cells are well aerated. SOFT TISSUES: Visualized soft tissues demonstrate no acute abnormality. The visualized portion of the intracranial contents demonstrate no gross acute abnormality. IMPRESSION: Chronic sinusitis involving the left maxillary sinus. Potential remote posttraumatic change of the left inferior orbital wall and correlation is needed. Interpreted by: Ion Leon MD Signed by: Ion Leon MD 11/29/23 Final result Normal [facility] CT Sinuses WO contraston Chronic sinusitis involving the left maxillary sinus. Potential remote posttraumatic change of the left inferior orbital wall and correlation is needed. [facility] EXAMINATION: CT OF THE SINUS WITHOUT CONTRAST 11/29/2023 9:27 am TECHNIQUE: CT of the sinuses was performed without the administration of intravenous contrast. Multiplanar reformatted images are provided for review. Automated exposure control, iterative reconstruction, and/or weight based adjustment of the mA/kV was utilized to reduce the radiation dose to as low as reasonably achievable. COMPARISON: None HISTORY: ORDERING SYSTEM PROVIDED HISTORY: sinus pain TECHNOLOGIST PROVIDED HISTORY: sinus pain FINDINGS: SINUSES/MASTOIDS: There is mild leftward deviation of the nasal septum. The nasal turbinates are unremarkable. There is chronic sinusitis involving the left maxillary sinus. There appears to be remote posttraumatic change to the left inferior orbital wall. The mastoid air cells are well aerated. SOFT TISSUES: Visualized soft tissues demonstrate no acute abnormality. The visualized portion of the intracranial contents demonstrate no gross acute abnormality. [facility] Ion Leon MD - 11/29/2023 EXAMINATION: CT OF THE SINUS WITHOUT CONTRAST 11/29/2023 9:27 am TECHNIQUE: CT of the sinuses was performed without the administration of intravenous contrast. Multiplanar reformatted images are provided for review. Automated exposure control, iterative reconstruction, and/or weight based adjustment of the mA/kV was utilized to reduce the radiation dose to as low as reasonably achievable. COMPARISON: None HISTORY: ORDERING SYSTEM PROVIDED HISTORY: sinus pain TECHNOLOGIST PROVIDED HISTORY: sinus pain FINDINGS: SINUSES/MASTOIDS: There is mild leftward deviation of the nasal septum. The nasal turbinates are unremarkable. There is chronic sinusitis involving the left maxillary sinus. There appears to be remote posttraumatic change to the left inferior orbital wall. The mastoid air cells are well aerated. SOFT TISSUES: Visualized soft tissues demonstrate no acute abnormality. The visualized portion of the intracranial contents demonstrate no gross acute abnormality. IMPRESSION: Chronic sinusitis involving the left maxillary sinus. Potential remote posttraumatic change of the left inferior orbital wall and correlation is needed. [facility] Radiology Study observation (narrative) [facility] CTA ABDOMEN PELVIS W WO CONT RASTon 11-29-2023 CTA ABDOMEN PELVIS W WO CONTRAST EXAMINATION: CTA OF THE ABDOMEN AND PELVIS WITH AND WITHOUT CONTRAST 11/29/2023 5:13 pm: TECHNIQUE: CTA of the abdomen and pelvis was performed without and with the administration of intravenous contrast. Multiplanar reformatted images are provided for review. MIP images are provided for review. Automated exposure control, iterative reconstruction, and/or weight based adjustment of the mA/kV was utilized to reduce the radiation dose to as low as reasonably achievable. COMPARISON: None. HISTORY: ORDERING SYSTEM PROVIDED HISTORY: Dropping Hgb. GIB TECHNOLOGIST PROVIDED HISTORY: Dropping Hgb. GIB Reason for Exam: Dropping Hgb. GIB FINDINGS: CTA ABDOMEN: Moderate bilateral pleural effusions with bibasilar consolidations favoring atelectasis. Difficult to exclude superimposed infection at the lung bases. The aorta is normal in caliber without aneurysm or dissection. No acute findings of the celiac artery, superior mesenteric artery or bilateral renal arteries. No evidence of flow-limiting stenosis. Embolization coils noted in the right upper quadrant. No appreciable contrast extravasation identified. Hyperdensities may be within the lumen of the distal stomach and proximal duodenum on page 60 of series 4, favored to be postprocedural in nature. No gross free air identified. No acute findings of the liver, spleen, pancreas or adrenal glands. Indeterminate enhancing left adrenal mass measures up to 2.2 x 2.3 cm. No hydronephrosis. Small nonobstructing left renal stone. Mild left pelviectasis. No evidence of bowel obstruction. The stomach is nondistended. No hyperdense fluid collections identified within the bowel. Moderate stool in the colon. No localized inflammatory changes at the bowel. Suspect an air-filled appendix in the right lower quadrant on image 102 of series 4. CTA PELVIS: Atherosclerosis of the iliac arteries without aneurysm or dissection. Partially distended urinary bladder. Diffuse subcutaneous soft tissue edema redemonstrated. No loculated fluid collections within the subcutaneous soft tissues identified. Small fat containing ventral hernia. No acute findings of the osseous structures. Spondylosis of the spine. IMPRESSION: 1. No acute findings. Embolization coils in the right upper quadrant without appreciable arterial bleeding/active extravasation. No hyperdense fluid collections visualized in bowel loops on noncontrast exam. Interval improved thickening of the stomach and proximal duodenum, may reflect resolved hemorrhage or improved gastritis. 2. Redemonstration of diffuse subcutaneous soft tissue edema. 3. Redemonstration of pleural effusions in the lung bases. 4. Unchanged mild abdominal ascites. 5. Atherosclerotic vascular disease of the aorta and its branches without evidence of flow-limiting stenosis. Interpreted by: Shagufta Echevarria DO Signed by: Shagufta Echevarria DO 11/29/23 Final result Normal [facility] CTA Abdominal vessels and Pe lvis vessels WO and W contrast Mike 11-29-2023 1. No acute findings . Embolization coils in the right upper quadrant without appreciable arterial bleeding/active extravasation. No hyperdense fluid collections visualized in bowel loops on noncontrast exam. Interval improved thickening of the stomach and proximal duodenum, may reflect resolved hemorrhage or improved gastritis. 2. Redemonstration of diffuse subcutaneous soft tissue edema. 3. Redemonstration of pleural effusions in the lung bases. 4. Unchanged mild abdominal ascites. 5. Atherosclerotic vascular disease of the aorta and its branches without evidence of flow-limiting stenosis. [facility] CONSOLIDATED EXAMINATION: CTA OF THE ABDOMEN AND PELVIS WITH AND WITHOUT CONTRAST 11/29/2023 5:13 pm: TECHNIQUE: CTA of the abdomen and pelvis was performed without and with the administration of intravenous contrast. Multiplanar reformatted images are provided for review. MIP images are provided for review. Automated exposure control, iterative reconstruction, and/or weight based adjustment of the mA/kV was utilized to reduce the radiation dose to as low as reasonably achievable. COMPARISON: None. HISTORY: ORDERING SYSTEM PROVIDED HISTORY: Dropping Hgb. GIB TECHNOLOGIST PROVIDED HISTORY: Dropping Hgb. GIB Reason for Exam: Dropping Hgb. GIB FINDINGS: CTA ABDOMEN: Moderate bilateral pleural effusions with bibasilar consolidations favoring atelectasis. Difficult to exclude superimposed infection at the lung bases. The aorta is normal in caliber without aneurysm or dissection. No acute findings of the celiac artery, superior mesenteric artery or bilateral renal arteries. No evidence of flow-limiting stenosis. Embolization coils noted in the right upper quadrant. No appreciable contrast extravasation identified. Hyperdensities may be within the lumen of the distal stomach and proximal duodenum on page 60 of series 4, favored to be postprocedural in nature. No gross free air identified. No acute findings of the liver, spleen, pancreas or adrenal glands. Indeterminate enhancing left adrenal mass measures up to 2.2 x 2.3 cm. No hydronephrosis. Small nonobstructing left renal stone. Mild left pelviectasis. No evidence of bowel obstruction. The stomach is nondistended. No hyperdense fluid collections identified within the bowel. Moderate stool in the colon. No localized inflammatory changes at the bowel. Suspect an air-filled appendix in the right lower quadrant on image 102 of series 4. CTA PELVIS: Atherosclerosis of the iliac arteries without aneurysm or dissection. Partially distended urinary bladder. Diffuse subcutaneous soft tissue edema redemonstrated. No loculated fluid collections within the subcutaneous soft tissues identified. Small fat containing ventral hernia. No acute findings of the osseous structures. Spondylosis of the spine. PN RIS CONSOLIDATED Shagufta Echevarria D O - 11/29/2023 EXAMINATION: CTA OF THE ABDOMEN AND PELVIS WITH AND WITHOUT CONTRAST 11/29/2023 5:13 pm: TECHNIQUE: CTA of the abdomen and pelvis was performed without and with the administration of intravenous contrast. Multiplanar reformatted images are provided for review. MIP images are provided for review. Automated exposure control, iterative reconstruction, and/or weight based adjustment of the mA/kV was utilized to reduce the radiation dose to as low as reasonably achievable. COMPARISON: None. HISTORY: ORDERING SYSTEM PROVIDED HISTORY: Dropping Hgb. GIB TECHNOLOGIST PROVIDED HISTORY: Dropping Hgb. GIB Reason for Exam: Dropping Hgb. GIB FINDINGS: CTA ABDOMEN: Moderate bilateral pleural effusions with bibasilar consolidations favoring atelectasis. Difficult to exclude superimposed infection at the lung bases. The aorta is normal in caliber without aneurysm or dissection. No acute findings of the celiac artery, superior mesenteric artery or bilateral renal arteries. No evidence of flow-limiting stenosis. Embolization coils noted in the right upper quadrant. No appreciable contrast extravasation identified. Hyperdensities may be within the lumen of the distal stomach and proximal duodenum on page 60 of series 4, favored to be postprocedural in nature. No gross free air identified. No acute findings of the liver, spleen, pancreas or adrenal glands. Indeterminate enhancing left adrenal mass measures up to 2.2 x 2.3 cm. No hydronephrosis. Small nonobstructing left renal stone. Mild left pelviectasis. No evidence of bowel obstruction. The stomach is nondistended. No hyperdense fluid collections identified within the bowel. Moderate stool in the colon. No localized inflammatory changes at the bowel. Suspect an air-filled appendix in the right lower quadrant on image 102 of series 4. CTA PELVIS: Atherosclerosis of the iliac arteries without aneurysm or dissection. Partially distended urinary bladder. Diffuse subcutaneous soft tissue edema redemonstrated. No loculated fluid collections within the subcutaneous soft tissues identified. Small fat containing ventral hernia. No acute findings of the osseous structures. Spondylosis of the spine. IMPRESSION: 1. No acute findings. Embolization coils in the right upper quadrant without appreciable arterial bleeding/active extravasation. No hyperdense fluid collections visualized in bowel loops on noncontrast exam. Interval improved thickening of the stomach and proximal duodenum, may reflect resolved hemorrhage or improved gastritis. 2. Redemonstration of diffuse subcutaneous soft tissue edema. 3. Redemonstration of pleural effusions in the lung bases. 4. Unchanged mild abdominal ascites. 5. Atherosclerotic vascular disease of the aorta and its branches without evidence of flow-limiting stenosis. [facility] Radiology Study observation (narrative) [facility] CTA Abdominal vessels and Pe lvis vessels WO and W contrast IVOrdered By: Shagufta Echevarria on 11-29-2023 [facility] Work Phone: Hemoglobin and Hematocriton 11-29-2023 Hematocrit (Bld) [Volume fraction] 23.5 % Low 36.3 - 47.1 % [facility] Hemoglobin (Bld) [Mass/Vol] 7.8 g/dL Low 11.9 - 15.1 g/dL [facility] Interpretation and review of laboratory results Abnormal [facility] Hematocrit (Bld) [Volume fraction] 18.8 % Low 36.3 - 47.1 % [facility] Hemoglobin (Bld) [Mass/Vol] 6.0 g/dL Critically low 11.9 - 15.1 g/dL [facility] Interpretation and review of laboratory results Abnormal [facility] Hepatic Function Panelon Albumin [Mass/Vol] 2.1 g/dL Low 3.5 - 5.2 g/dL [facility] Albumin/Globulin [Mass ratio] 2.0 {ratio} 1.0 - 2.5 [facility] ALP [Catalytic activity/Vol] 45 U/L 35 - 104 U/L [facility] ALT [Catalytic activity/Vol] 19 U/L 10 - 35 U/L [facility] AST [Catalytic activity/Vol] 27 U/L 10 - 35 U/L [facility] Bilirubin [Mass/Vol] mg/dL 0.00 - 1.20 mg/dL [facility] Bilirubin.direct [Mass/Vol] mg/dL 0.00 - 0.30 mg/dL [facility] Bilirubin.indirect [Mass/Vol] Can not be calculated 0.0 - 1.0 mg/dL [facility] Globulin (S) [Mass/Vol] 1.4 g/dL [facility] Interpretation and review of laboratory results Abnormal [facility] Protein [Mass/Vol] 3.5 g/dL Low 6.6 - 8.7 g/dL [facility] Hgb/Hcton 11-29-2023 Hematocrit (Bld) [Volume fraction] 23.5 % Low 36.3-47.1 [facility] Comment on above: Performed By: #### H H #### [facility] [address], [place] [phone] Sales Ledger Administrator: Dwain Aldana MD Hemoglobin (Bld) [Mass/Vol] 7.8 g/dL Low 11.9-15.1 [facility] Comment on above: Performed By: #### H H #### [employer] [address] [place] [address] Sales Ledger Administrator: Dwain Aldana MD Hematocrit (Bld) [Volume fraction] 18.8 % Low 36.3-47.1 [facility] Comment on above: Performed By: #### H H #### [address] [address] Sales Ledger Administrator: Dwain Aldana MD Hemoglobin (Bld) [Mass/Vol] 6.0 g/dL Critically low 11.9-15.1 [facility] Comment on above: Performed By: #### H H #### [facility] [employer] [address] [place] [phone] Sales Ledger Administrator: Dwain Aldana MD Liver Profileon 11-29-2023 Albumin [Mass/Vol] 2.1 g/dL Low 3.5-5.2 [facility] Comment on above: Performed By: #### B MPX, MG, CDP #### [facility] [employer] [address] [place] [phone] Sales Ledger Administrator: Dwain Aldana MD Albumin/Glob Ratio 2.0 Normal 1.0-2.5 [facility] Comment on above: Performed By: #### B MPX, MG, CDP #### [facility] [employer] [address] [place] [phone] Sales Ledger Administrator: Dwain Aldana MD Alkaline Phos 45 U/L Normal 35-104 [facility] Comment on above: Performed By: #### B MPX, MG, CDP #### [facility] [address] [place] [phone] Sales Ledger Administrator: Dwain Aldana MD ALT [Catalytic activity/Vol] 19 U/L Normal 10-35 [facility] Comment on above: Performed By: #### B MPX, MG, CDP #### [facility] [address] [place] [phone] Sales Ledger Administrator: Dwain Aldana MD AST [Catalytic activity/Vol] 27 U/L Normal 10-35 [facility] Comment on above: Performed By: #### B MPX, MG, CDP #### [facility] [address] [place] [phone] Sales Ledger Administrator: Dwain Aldana MD Bilirubin [Mass/Vol] mg/dL Normal 0.00-1.20 [facility] Comment on above: Performed By: #### B MPX, MG, CDP #### [facility] [address] [place] [phone] Sales Ledger Administrator: Dwain Aldana MD Bilirubin, Indirect Can not be calculated Normal 0.0-1 .0 [facility] Comment on above: Performed By: #### B MPX, MG, CDP #### [facility] [address] [place] [phone] Sales Ledger Administrator: Dwain Aldana MD Bilirubin.indirect [Mass/Vol] mg/dL Normal 0.00-0.30 [facility] Comment on above: Performed By: #### B MPX, MG, CDP #### [facility] [address] [place] [address] Sales Ledger Administrator: Dwain Aldana MD Globulin (S) [Mass/Vol] 1.4 g/dL Normal [facility] Comment on above: Performed By: #### B MPX, MG, CDP #### [facility] [address] [place] [phone] Sales Ledger Administrator: Dwain Aldana MD Protein [Mass/Vol] 3.5 g/dL Low 6.6-8.7 [facility] Comment on above: Performed By: #### B MPX, MG, CDP #### [facility] [address] [place] [phone] Sales Ledger Administrator: Dwain Aldana MD MRSA, DNA, Nasalon 4 Specimen Description .NASAL SWAB Normal [facility] Comment on above: Performed By: #### M RSANO #### [employer] [address], [place] [phone] Sales Ledger Administrator: Dwain Aldana MD Magnesiumon 11-29-2023 Magnesium [Mass/Vol] 1.7 mg/dL Normal 1.6-2.4 [facility] Comment on above: Performed By: #### B MPX, MG, CDP #### [facility] [address], [place] [phone] Sales Ledger Administrator: Dwain Aldana MD Magnesium [Mass/Vol] 1.7 mg/dL 1.6 - 2 .4 mg/dL [facility] PREVIOUS SPECIMENon 11-29-19 [facility] Procalcitoninon 11-29-2023 Procalcitonin [Mass/Vol] 0.05 ng/mL NINF - 0.09 ng/mL [facility] Comment on above: Suspected Sepsis: <0.50 ng/mL Low likelihood of sepsis. 0.50-2.00 ng/mL Increased likelihood of sepsis. Antibiotics encouraged. >2.00 ng/mL High risk of sepsis/shock. Antibiotics strongly encouraged. Suspected Lower Resp Tract Infections: <0.24 ng/mL Low likelihood of bacterial infection. >0.24 ng/mL Increased likelihood of bacterial infection. Antibiotics encouraged. With successful antibiotic therapy, PCT levels should decrease rapidly. (Half-life of 24 to 36 hours.) Procalcitonin values from samples collected within the first 6 hours of systemic infection may still be low. Retesting may be indicated. Values from day 1 and day 4 can be entered into the Change in Procalcitonin Calculator ([email or web address]) to determine the patient's Mortality Risk Prognosis In healthy neonates, plasma Procalcitonin (PCT) concentrations increase gradually after , reaching peak values at about 24 hours of age then decrease to normal values below 0.5 ng/mL by 48-72 hours of age. [facility] Specimen Rejectionon 024 Reason for rejection Unable to perform t esting: Specimen quantity not sufficient. Normal [facility] Comment on above: Performed By: #### T SHX, PRCAL #### [employer] [address] [place] [address] [phone] Sales Ledger Administrator: Dwain Aldana MD Source of sample .BLOOD Normal [facility] Comment on above: Performed By: #### T JEAN PRCAL #### [facility] [employer] [address] [place] [address] [phone] Sales Ledger Administrator: Dwain Aldana MD Test ordered HH Normal [facility] Comment on above: Performed By: #### T JEAN PRCAL #### [facility] [employer] [address] [place] [address] [phone] Sales Ledger Administrator: Dwain Aldana MD TSH w/reflex to FT4on 2023 Thyroid Stim. Horm. 9.13 uIU/mL High 0.27-4.20 [facility] Comment on above: Performed By: #### Patti PENA PRCAL #### [address] [phone] Sales Ledger Administrator: Dwain Aldana MD TSH with Reflexon 11-29-2023 Interpretation and review of laboratory results Abnormal [facility] TSH Qn 9.13 m[IU]/L High [facility] Basic Metab w/rfx MGon 11-27 Anion gap [Moles/Vol] 9 mmol/L Normal 9-16 [facility] Comment on above: Performed By: #### T JEAN PRCAL #### [address] [address] Sales Ledger Administrator: Dwain Aldana MD Calcium [Mass/Vol] 6.4 mg/dL Low 8.6-10.4 [facility] Comment on above: Performed By: #### Patti PENA PRCAL #### [facility] [address] [place] [phone] Sales Ledger Administrator: Dwain Aldana MD Chloride [Moles/Vol] 105 mmol/L Normal 98-107 [facility] Comment on above: Performed By: #### T JEAN PRCAL #### [address] [address] Sales Ledger Administrator: Dwain Aldana MD CO2 [Moles/Vol] 21 mmol/L Normal 20-31 [facility] Comment on above: Performed By: #### T JEAN PRCAL #### [address] [address] Sales Ledger Administrator: Dwain Aldana MD Creatinine [Mass/Vol] 0.3 mg/dL Low 0.50-0.90 [facility] Comment on above: Performed By: #### T JEAN PRCAL #### [address] [address] Sales Ledger Administrator: Dwain Aldana MD GFR/1.73 sq M.predicted among non-blacks MDRD (S/P/Bld) [Vol rate/Area] mL/min/{1.73_m2} Normal >60 [facility] Comment on above: Result Comment: These results are not intended for use in patients <18 years of age. eGFR results are calculated without a race factor using the 2020 CKD-EPI equation. Careful clinical correlation is recommended, particularly when comparing to results calculated using previous equations. The CKD-EPI equation is less accurate in patients with extremes of muscle mass, extra-renal metabolism of creatine, excessive creatine ingestion, or following therapy that affects renal tubular secretion. Performed By: #### Patti PENA PRCAL #### [address] [address] Sales Ledger Administrator: Dwain Aldana MD Glucose [Mass/Vol] 88 mg/dL Normal 74-99 [facility] Comment on above: Performed By: #### T JEAN PRCAL #### [address] [address] Sales Ledger Administrator: Dwain Aldana MD Potassium [Moles/Vol] 3.7 mmol/L Normal 3.7-5.3 [facility] Comment on above: Performed By: #### T LISAX, PRCAL #### [employer] [address], [place] [phone] Sales Ledger Administrator: Dwain Aldana MD Sodium [Moles/Vol] 135 mmol/L Low 136-145 [facility] Comment on above: Performed By: #### T LISAX, PRCAL #### [facility] [address], [place] [phone] Sales Ledger Administrator: Dwain Aldana MD Urea nitrogen [Mass/Vol] 10 mg/dL Normal 8-23 [facility] Comment on above: Performed By: #### T LISAX, PRCAL #### [facility] [address], [place] [phone] Sales Ledger Administrator: Dwain Aldana MD Basic Metabolic Panel w/ Ref merlene to MGon 11-28-2023 Anion gap [Moles/Vol] 9 mmol/L 9 - 16 mmol/L [facility] Calcium [Mass/Vol] 6.4 mg/dL Low 8.6 - 10. 4 mg/dL [facility] Chloride [Moles/Vol] 105 mmol/L 98 - 10 7 mmol/L [facility] CO2 [Moles/Vol] 21 mmol/L 20 - 31 mmol/L [facility] Creatinine [Mass/Vol] 0.3 mg/dL Low 0.50 - 0.90 mg/dL [facility] Est, Glom Filt Rate - [facility] Comment on above: These results are not intended for use in patients <18 years of age. eGFR results are calculated without a race factor using the 2020 CKD-EPI equation. Careful clinical correlation is recommended, particularly when comparing to results calculated using previous equations. The CKD-EPI equation is less accurate in patients with extremes of muscle mass, extra-renal metabolism of creatine, excessive creatine ingestion, or following therapy that affects renal tubular secretion. Glucose [Mass/Vol] 88 mg/dL 74 - 99 mg/dL [facility]MobileRQSELECT [facility] Interpretation and review of laboratory results Abnormal [facility] Potassium [Moles/Vol] 3.7 mmol/L 3.7 - 5.3 mmol/L [facility] Sodium [Moles/Vol] 135 mmol/L Low 136 - 145 mmol/L [facility] Urea nitrogen [Mass/Vol] 10 mg/dL 8 - 23 mg/dL [facility] Hgb/Hcton 11-28-2023 Hematocrit (Bld) [Volume fraction] 24.0 % Low 36.3-47.1 [facility] Comment on above: Performed By: #### H H #### [employer] [address], [place] [phone] Sales Ledger Administrator: Dwain Aldana MD Hemoglobin (Bld) [Mass/Vol] 7.5 g/dL Low 11.9-15.1 [facility] Comment on above: Performed By: #### H H #### [employer] [address], [place] [phone] Sales Ledger Administrator: Dwain Aldana MD IR EMBOLIZATION HEMORRHAGEon 11-28-2023 Contrast extravasati on via truncated duodenal side-branch GDA with successful coil embolization, as above. [facility] RIS Jorge Lopez MD - 11/28/2023 PROCEDURE: IR EMBOLIZATION VASCULAR ANY HEMORRHAGE 11/27/2023 HISTORY: ORDERING SYSTEM PROVIDED HISTORY: Embolization of GDA/GI bleed TECHNOLOGIST PROVIDED HISTORY: Embolization of GDA/GI bleed CONTRAST: Isovue 370-110 mL SEDATION: Fentanyl 50 mcg IV for discomfort. Medications were provided and recorded by Radiology nurses. FLUOROSCOPY DOSE AND TYPE: Fluoroscopy time-15.7 minutes. Radiation Exposure Index: DAP cGy*m2, 01666 DESCRIPTION OF PROCEDURE: Arteries interrogated: Celiac, GDA, SMA, and proper hepatic arteries. The risks versus benefits and alternatives of the procedure were explained to the patient who gave a written informed consent. Prior to the procedure, the patient was asked to state her full name, and date of . In the procedure room, a timeout was called. The patient identity and procedure to be performed were verified with the patient ID band, the consent, and the marked site. All elements of maximal sterile barrier technique were used. With the patient supine on the fluoroscopy table, the right groin was assessed sonographically and the right common femoral artery targeted. Local anesthesia was administered with 1% lidocaine. A small kelly was placed in the skin. Micropuncture technique was then utilized under direct ultrasound guidance to puncture the artery; a 0.018 inch guidewire was introduced followed by a 2-in-1 dilator, then exchanged for a 0.035 inch wire and 5 Bolivian introducer sheath. Randal 5 Bolivian x 65 cm catheter was introduced and the celiac artery catheterize; hand celiac angiography was performed. A 0.035 inch glidewire was manipulated into the distal hepatic arteries, catheter exchanged for a 5 Bolivian Cobra glide catheter which was manipulated into the origin GDA. Digital angiography was then performed. [email or web address] delivery microcatheter 45 degree tip was then inserted. All attempts at advancing the microcatheter more distally in the GJ were unsuccessful, and hand contrast injection revealed extravasation to the adjacent duodenal lumen. Three microcoils were then deployed, 2 mm x 2 cm, 2 mm x 4 cm, and 3 mm x 5 cm with complete occlusion proximal GDA. The microcatheter was removed. Subsequent hand injection via the 5 Bolivian catheter the proper hepatic was performed. The guide catheter was removed, and the Randal catheter reinserted. Celiac and SMA digital angiography were then performed. The Randal catheter was removed. Hand digital angiography right iliofemoral vessels was performed at the groin. The right groin was re-prepped, and a 5 Bolivian Vascade closure device was deployed right SWING MANAGER. The patient tolerated procedure well and there were no immediate complications. FINDINGS: Multiple clips region duodenum; normal celiac and hepatic anatomy. Abnormal GDA with a small truncated duodenal side branch, and angulated continuation more medially with small duodenal arcade branches demonstrated. All attempts to catheterize the latter were unsuccessful; contrast extravasation into the duodenum subsequently seen. At the latter site, three coils deployed with complete GDA occlusion. Follow-up angiography demonstrated the latter, and no other abnormality or site of bleeding identified. Normal right SWING MANAGER entry site pre closure device placement. 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 [facility] IR EMBOLIZATION HEMORRHAGEOr dered By: Jorge Russo on 11-28-2023 [facility] Work Phone: No Panel Informationon 11-27 Blood Bank Blood Product Expiration Date [id number] [facility] Blood Bank ISBT Product Blood Type 6200 [facility] Blood Bank Unit Type and Rh Positive [facility] Component Leukocyte Reduced Red Cell [facility] Crossmatch Result COMPATIBLE [facility] Dispense Status Blood Bank TRANSFUSED [facility] Product Code Blood Bank [id number] [facility] Transfusion Status OK TO TRANSFUSE [facility] Unit Divison 0 [facility] TYPE AND SCREENon 11-28-2023 ABO/Rh Positive [facility] Arm Band Number [id number] [facility] Blood Bank Blood Product Expiration Date [facility] Blood Bank Sample Expiration 11/28/2023,2359 [facility] Blood product unit ID (Dose) [#] [id number] [facility] Blood product unit ID (Dose) [#] [id number] [facility] Blood product unit ID (Dose) [#] [id number] [facility] Unit Issue Date/Time [facility] Unit Issue Date/Time [facility] Unit Issue Date/Time [facility] Type + Screenon 11-28-2023 Type + Screen Sample Expiration 11/28/2023,2359 Arm Band Number [id number] ABO/Rh(D) A POSITIVE Antibody Screen NEGATIVE Unit Number [id number] Blood Component Type Leukocyte Reduced Red Cell Unit Division 00 Status of Unit TRANSFUSED Transfusion Status OK TO TRANSFUSE Crossmatch Result COMPATIBLE Unit Number [id number] Blood Component Type Leukocyte Reduced Red Cell Unit Division 00 Status of Unit TRANSFUSED Transfusion Status OK TO TRANSFUSE Crossmatch Result COMPATIBLE Unit Number [id number] Blood Component Type Leukocyte Reduced Red Cell Unit Division 00 Status of Unit TRANSFUSED Transfusion Status OK TO TRANSFUSE Crossmatch Result COMPATIBLE Normal [facility] Comment on above: Performed By: #### H H #### [employer] [address] [place] [phone] Sales Ledger Administrator: Dwain Aldana MD Basic Metab w/rfx MGon 11-26 Anion gap [Moles/Vol] 7 mmol/L Low 9-16 [facility] Comment on above: Performed By: #### B MPX, MG, CDP #### [facility] [employer] [address] [place] [phone] Sales Ledger Administrator: Dwain Aldana MD Calcium [Mass/Vol] 6.3 mg/dL Low 8.6-10.4 [facility] Comment on above: Performed By: #### B MPX, MG, CDP #### [facility] [employer] [address] [place] [phone] Sales Ledger Administrator: Dwain Aldana MD Chloride [Moles/Vol] 105 mmol/L Normal 98-107 [facility] Comment on above: Performed By: #### B MPX, MG, CDP #### [facility] [employer] [address] [place] [address] Sales Ledger Administrator: Dwain Aldana MD CO2 [Moles/Vol] 22 mmol/L Normal 20-31 [facility] Comment on above: Performed By: #### B MPX, MG, CDP #### [facility] [address] [place] [address] Sales Ledger Administrator: Dwain Aldana MD Creatinine [Mass/Vol] 0.4 mg/dL Low 0.50-0.90 [facility] Comment on above: Performed By: #### B MPX, MG, CDP #### [facility] [employer] [address] [place] [phone] Sales Ledger Administrator: Dwain Aldana MD GFR/1.73 sq M.predicted among non-blacks MDRD (S/P/Bld) [Vol rate/Area] mL/min/{1.73_m2} Normal >60 [facility] Comment on above: Result Comment: These results are not intended for use in patients <18 years of age. eGFR results are calculated without a race factor using the 2020 CKD-EPI equation. Careful clinical correlation is recommended, particularly when comparing to results calculated using previous equations. The CKD-EPI equation is less accurate in patients with extremes of muscle mass, extra-renal metabolism of creatine, excessive creatine ingestion, or following therapy that affects renal tubular secretion. Performed By: #### B MPX, MG, CDP #### [facility] [address] [place] [phone] Sales Ledger Administrator: Dwain Aldana MD Glucose [Mass/Vol] 83 mg/dL Normal 74-99 [facility] Comment on above: Performed By: #### B MPX, MG, CDP #### [facility] [address] [place] [phone] Sales Ledger Administrator: Dwain Aldana MD Potassium [Moles/Vol] 3.4 mmol/L Low 3.7-5.3 [facility] Comment on above: Performed By: #### B MPX, MG, CDP #### [facility] [address] [place] [address] [phone] Sales Ledger Administrator: Dwain Aldana MD Sodium [Moles/Vol] 134 mmol/L Low 136-145 [facility] Comment on above: Performed By: #### B MPX, MG, CDP #### [facility] [address] [place] [address] [phone] Sales Ledger Administrator: Dwain Aldana MD Urea nitrogen [Mass/Vol] 7 mg/dL Low 8-23 [facility] Comment on above: Performed By: #### B MPX, MG, CDP #### [facility] [address] [place] [address] [phone] Sales Ledger Administrator: Dwain Aldana MD Basic Metabolic Panel w/ Ref merlene to MGon 11-27-2023 Anion gap [Moles/Vol] 7 mmol/L Low 9 - 16 mmol/L [facility] Calcium [Mass/Vol] 6.3 mg/dL Low 8.6 - 10. 4 mg/dL [facility] Chloride [Moles/Vol] 105 mmol/L 98 - 10 7 mmol/L [facility] CO2 [Moles/Vol] 22 mmol/L 20 - 31 mmol/L [facility] Creatinine [Mass/Vol] 0.4 mg/dL Low 0.50 - 0.90 mg/dL [facility] [place] - [facility] Comment on above: These results are not intended for use in patients <18 years of age. eGFR results are calculated without a race factor using the 2020 CKD-EPI equation. Careful clinical correlation is recommended, particularly when comparing to results calculated using previous equations. The CKD-EPI equation is less accurate in patients with extremes of muscle mass, extra-renal metabolism of creatine, excessive creatine ingestion, or following therapy that affects renal tubular secretion. Glucose [Mass/Vol] 83 mg/dL 74 - 99 mg/dL [facility] Interpretation and review of laboratory results Abnormal [facility] Potassium [Moles/Vol] 3.4 mmol/L Low 3.7 - 5.3 mmol/L [facility] Sodium [Moles/Vol] 134 mmol/L Low 136 - 145 mmol/L [facility] Urea nitrogen [Mass/Vol] 7 mg/dL Low 8 - 23 mg/dL [facility] Hemoglobin and Hematocriton 11-27-2023 Hematocrit (Bld) [Volume fraction] 17.9 % Low 36.3 - 47.1 % [facility] Hemoglobin (Bld) [Mass/Vol] 5.7 g/dL Critically low 11.9 - 15.1 g/dL [facility] Interpretation and review of laboratory results Abnormal [facility] Hematocrit (Bld) [Volume fraction] 18.0 % Low 36.3 - 47.1 % [facility] Hemoglobin (Bld) [Mass/Vol] 5.9 g/dL Critically low 11.9 - 15.1 g/dL [facility] Interpretation and review of laboratory results Abnormal [facility] Hematocrit (Bld) [Volume fraction] 23.0 % Low 36.3 - 47.1 % [facility] Hemoglobin (Bld) [Mass/Vol] 7.2 g/dL Low 11.9 - 15.1 g/dL [facility] Interpretation and review of laboratory results Abnormal [facility] Hematocrit (Bld) [Volume fraction] 22.0 % Low 36.3 - 47.1 % [facility] Hemoglobin (Bld) [Mass/Vol] 7.2 g/dL Low 11.9 - 15.1 g/dL [facility] Interpretation and review of laboratory results Abnormal [facility] Hgb/Hcton 11-27-2023 Hematocrit (Bld) [Volume fraction] 17.9 % Low 36.3-47.1 [facility] Comment on above: Performed By: #### B MPX, MG, CDP #### [employer] [address] [place] [address] Sales Ledger Administrator: Dwain Aldana MD Hemoglobin (Bld) [Mass/Vol] 5.7 g/dL Critically low 11.9-15.1 [facility] Comment on above: Performed By: #### B MPX, MG, CDP #### [email or web address] [address] [place] [address] [phone] Sales Ledger Administrator: Dwain Aldana MD Hematocrit (Bld) [Volume fraction] 18.0 % Low 36.3-47.1 [facility] Comment on above: Performed By: #### H H #### [employer] [address] [place] [address] [phone] Sales Ledger Administrator: Dwain Aldana MD Hemoglobin (Bld) [Mass/Vol] 5.9 g/dL Critically low 11.9-15.1 [facility] Comment on above: Performed By: #### H H #### [employer] [address] [place] [address] [phone] Sales Ledger Administrator: Dwain Aldana MD Hematocrit (Bld) [Volume fraction] 23.0 % Low 36.3-47.1 [facility] Comment on above: Performed By: #### H H #### [address] [phone] Sales Ledger Administrator: Dwain Aldana MD Hemoglobin (Bld) [Mass/Vol] 7.2 g/dL Low 11.9-15.1 [facility] Comment on above: Performed By: #### H H #### [address] [phone] Sales Ledger Administrator: Dwain Aldana MD Hematocrit (Bld) [Volume fraction] 22.0 % Low 36.3-47.1 [facility] Comment on above: Performed By: #### H H #### [address] [phone] Sales Ledger Administrator: Dwain Aldana MD Hemoglobin (Bld) [Mass/Vol] 7.2 g/dL Low 11.9-15.1 [facility] Comment on above: Performed By: #### H H #### [address] [phone] Sales Ledger Administrator: Dwain Aldana MD Hematocrit (Bld) [Volume fraction] 24.3 % Low 36.3-47.1 [facility] Comment on above: Performed By: #### H H #### [address] [phone] Sales Ledger Administrator: Dwain Aldana MD Hemoglobin (Bld) [Mass/Vol] 7.7 g/dL Low 11.9-15.1 [facility] Comment on above: Performed By: #### H H #### [address] [phone] Sales Ledger Administrator: Dwain Aldana MD Magnesiumon 11-27-2023 Magnesium [Mass/Vol] 1.9 mg/dL Normal 1.6-2.4 [facility] Comment on above: Performed By: #### B MPX, MG, CDP #### [employer] [address] [phone] Sales Ledger Administrator: Dwain Aldana MD Magnesium [Mass/Vol] 1.9 mg/dL 1.6 - 2 .4 mg/dL [facility] No Panel Informationon 11-26 Radiology Study observation (narrative) [facility] [employer] Portable XR Chest AP single viewon 11-27-2023 Right mid and lower lung consolidation consistent with pneumonia. Trace left basilar effusion. PN RIS CONSOLIDATED EXAMINATION: ONE XRAY VIEW OF THE CHEST 11/27/2023 10:46 am COMPARISON: Chest radiograph performed 11/25/2023. HISTORY: ORDERING SYSTEM PROVIDED HISTORY: f/u left pleural effusion and atelectasis TECHNOLOGIST PROVIDED HISTORY: f/u left pleural effusion and atelectasis FINDINGS: There is right mid and lower lung consolidation. There is a trace left basilar effusion. There is no pneumothorax. The mediastinal structures are unremarkable. The upper abdomen unremarkable. The extrathoracic soft tissues are unremarkable. MHPN RIS CONSOLIDATED Ion Leon MD - 11/27/2023 EXAMINATION: ONE XRAY VIEW OF THE CHEST 11/27/2023 10:46 am COMPARISON: Chest radiograph performed 11/25/2023. HISTORY: ORDERING SYSTEM PROVIDED HISTORY: f/u left pleural effusion and atelectasis TECHNOLOGIST PROVIDED HISTORY: f/u left pleural effusion and atelectasis FINDINGS: There is right mid and lower lung consolidation. There is a trace left basilar effusion. There is no pneumothorax. The mediastinal structures are unremarkable. The upper abdomen unremarkable. The extrathoracic soft tissues are unremarkable. IMPRESSION: Right mid and lower lung consolidation consistent with pneumonia. Trace left basilar effusion. [facility] [employer] Portable XR Chest AP single viewOrdered By: Ion Leon on 11-27-2023 [facility] [employer] Work Phone: XR CHEST PORTABLEon 11-27-19 24 XR CHEST PORTABLE EXAMINATION: ONE XRAY VIEW OF THE CHEST 11/27/2023 10:46 am COMPARISON: Chest radiograph performed 11/25/2023. HISTORY: ORDERING SYSTEM PROVIDED HISTORY: f/u left pleural effusion and atelectasis TECHNOLOGIST PROVIDED HISTORY: f/u left pleural effusion and atelectasis FINDINGS: There is right mid and lower lung consolidation. There is a trace left basilar effusion. There is no pneumothorax. The mediastinal structures are unremarkable. The upper abdomen unremarkable. The extrathoracic soft tissues are unremarkable. IMPRESSION: Right mid and lower lung consolidation consistent with pneumonia. Trace left basilar effusion. Interpreted by: Ion Leon MD Signed by: Ion Leon MD 11/27/23 Final result Normal [facility] Basic Metab w/rfx MGon 11-25 Anion gap [Moles/Vol] 11 mmol/L Normal 9-16 [facility] Comment on above: Performed By: #### B MPX MG, CDP #### [facility] [employer] [address] [place] [address] [phone] Sales Ledger Administrator: Dwain Aldana MD Calcium [Mass/Vol] 6.3 mg/dL Low 8.6-10.4 [facility] Comment on above: Performed By: #### B MPX, MG, CDP #### [facility] [employer] [address] [place] [address] [phone] Sales Ledger Administrator: Dwain Aldana MD Chloride [Moles/Vol] 112 mmol/L High 98-107 [facility] Comment on above: Performed By: #### B MPX, MG, CDP #### [facility] [employer] [address] [place] [address] [phone] Sales Ledger Administrator: Dwain Aldana MD CO2 [Moles/Vol] 17 mmol/L Low 20-31 [facility] Comment on above: Performed By: #### B MPX, MG, CDP #### [facility] [employer] [address] [place] [address] [phone] Sales Ledger Administrator: Dwain Aldana MD Creatinine [Mass/Vol] 0.3 mg/dL Low 0.50-0.90 [facility] Comment on above: Performed By: #### B MPX, MG, CDP #### [facility] [employer] [address] [place] [address] [phone] Sales Ledger Administrator: Dwain Aldana MD GFR/1.73 sq M.predicted among non-blacks MDRD (S/P/Bld) [Vol rate/Area] mL/min/{1.73_m2} Normal >60 [facility] Comment on above: Result Comment: These results are not intended for use in patients <18 years of age. eGFR results are calculated without a race factor using the 2020 CKD-EPI equation. Careful clinical correlation is recommended, particularly when comparing to results calculated using previous equations. The CKD-EPI equation is less accurate in patients with extremes of muscle mass, extra-renal metabolism of creatine, excessive creatine ingestion, or following therapy that affects renal tubular secretion. Performed By: #### B MPX, MG, CDP #### [facility] [address] [place] [address] [phone] Sales Ledger Administrator: Dwain Aldana MD Glucose [Mass/Vol] 82 mg/dL Normal 74-99 [facility] Comment on above: Performed By: #### B MPX, MG, CDP #### [facility] [address] [place] [address] [phone] Sales Ledger Administrator: Dwain Aldana MD Potassium [Moles/Vol] 3.4 mmol/L Low 3.7-5.3 [facility] Comment on above: Performed By: #### B MPX, MG, CDP #### [facility] [address] [place] [address] [phone] Sales Ledger Administrator: Dwain Aldana MD Sodium [Moles/Vol] 140 mmol/L Normal 136-145 [facility] Comment on above: Performed By: #### B MPX, MG, CDP #### [facility] [address] [place] [address] [phone] Sales Ledger Administrator: Dwain Aldana MD Urea nitrogen [Mass/Vol] 9 mg/dL Normal 8-23 [facility] Comment on above: Performed By: #### B MPX, MG, CDP #### [facility] [address] [place] [address] Sales Ledger Administrator: Dwain Aldana MD Basic Metabolic Panel w/ Ref merlene to MGon 11-26-2023 Anion gap [Moles/Vol] 11 mmol/L 9 - 16 mmol/L [facility] Calcium [Mass/Vol] 6.3 mg/dL Low 8.6 - 10. 4 mg/dL [facility] Chloride [Moles/Vol] 112 mmol/L High 98 - 10 7 mmol/L [facility] CO2 [Moles/Vol] 17 mmol/L Low 20 - 31 mmol/L [facility] Creatinine [Mass/Vol] 0.3 mg/dL Low 0.50 - 0.90 mg/dL [facility] Est, [place] Rate - [facility] Comment on above: These results are not intended for use in patients <18 years of age. eGFR results are calculated without a race factor using the 2020 CKD-EPI equation. Careful clinical correlation is recommended, particularly when comparing to results calculated using previous equations. The CKD-EPI equation is less accurate in patients with extremes of muscle mass, extra-renal metabolism of creatine, excessive creatine ingestion, or following therapy that affects renal tubular secretion. Glucose [Mass/Vol] 82 mg/dL 74 - 99 mg/dL [facility] Interpretation and review of laboratory results Abnormal [facility] Potassium [Moles/Vol] 3.4 mmol/L Low 3.7 - 5.3 mmol/L [facility] Sodium [Moles/Vol] 140 mmol/L 136 - 145 mmol/L [facility] Urea nitrogen [Mass/Vol] 9 mg/dL 8 - 23 mg/dL [facility] Hemoglobin and Hematocriton 11-26-2023 Hematocrit (Bld) [Volume fraction] 24.3 % Low 36.3 - 47.1 % [facility] Hemoglobin (Bld) [Mass/Vol] 7.7 g/dL Low 11.9 - 15.1 g/dL [facility] Interpretation and review of laboratory results Abnormal [facility] Hematocrit (Bld) [Volume fraction] 24.6 % Low 36.3 - 47.1 % [facility] Hemoglobin (Bld) [Mass/Vol] 8.1 g/dL Low 11.9 - 15.1 g/dL [facility] Interpretation and review of laboratory results Abnormal [facility] Hematocrit (Bld) [Volume fraction] 26.7 % Low 36.3 - 47.1 % [facility] Hemoglobin (Bld) [Mass/Vol] 8.6 g/dL Low 11.9 - 15.1 g/dL [facility] Interpretation and review of laboratory results Abnormal [facility] Hematocrit (Bld) [Volume fraction] 26.3 % Low 36.3 - 47.1 % [facility] Hemoglobin (Bld) [Mass/Vol] 8.1 g/dL Low 11.9 - 15.1 g/dL [facility] Interpretation and review of laboratory results Abnormal [facility] Hgb/Hcton 11-26-2023 Hematocrit (Bld) [Volume fraction] 24.6 % Low 36.3-47.1 [facility] Comment on above: Performed By: #### H H #### [employer] [address] [place] [address] Sales Ledger Administrator: Dwain Aldana MD Hemoglobin (Bld) [Mass/Vol] 8.1 g/dL Low 11.9-15.1 [facility] Comment on above: Performed By: #### H H #### [employer] [address] [place] [address] [phone] Sales Ledger Administrator: Dwain Aldana MD Hematocrit (Bld) [Volume fraction] 26.7 % Low 36.3-47.1 [facility] Comment on above: Performed By: #### T SHX, PRCAL #### [facility] [address] [place] [address] [phone] Sales Ledger Administrator: Dwain Aldana MD Hemoglobin (Bld) [Mass/Vol] 8.6 g/dL Low 11.9-15.1 [facility] Comment on above: Performed By: #### T SHX, PRCAL #### [facility] [address] [place] [address] [phone] Sales Ledger Administrator: Dwain Aldana MD Hematocrit (Bld) [Volume fraction] 26.3 % Low 36.3-47.1 [facility] Comment on above: Performed By: #### B MPX, MG, CDP #### [facility] [address] [place] [address] [phone] Sales Ledger Administrator: Dwain Aldana MD Hemoglobin (Bld) [Mass/Vol] 8.1 g/dL Low 11.9-15.1 [facility] Comment on above: Performed By: #### B MPX, MG, CDP #### [facility] [address] [place] [address] [phone] Sales Ledger Administrator: Dwain Aldana MD Hematocrit (Bld) [Volume fraction] 24.6 % Low 36.3-47.1 [facility] Comment on above: Performed By: #### B MPX, MG, CDP #### [facility] [address] [place] [address] [phone] Sales Ledger Administrator: Dwain Aldana MD Hemoglobin (Bld) [Mass/Vol] 8.5 g/dL Low 11.9-15.1 [facility] Comment on above: Performed By: #### B MPX, MG, CDP #### [facility] [address] [place] [address] [phone] Sales Ledger Administrator: Dwain Aldana MD Magnesiumon 11-26-2023 Magnesium [Mass/Vol] 1.5 mg/dL Low 1.6-2.4 [facility] Comment on above: Performed By: #### B MPX, MG, CDP #### [facility] [address] [place] [address] [phone] Sales Ledger Administrator: Dwain Aldana MD Interpretation and review of laboratory results Abnormal [facility] Magnesium [Mass/Vol] 1.5 mg/dL Low 1.6 - 2 .4 mg/dL [facility] APTTon 11-25-2023 aPTT Coag (Bld) [Time] 25.5 s Normal 23.0-36.5 [facility] Comment on above: Result Comment: IV Heparin Therapy Range: 66.0-92.0 sec Performed By: #### B MPX, MG, CDP #### [facility] [employer] [address] [place] [address] [phone] Sales Ledger Administrator: Dwain Aldana MD aPTT Coag (Bld) [Time] 25.5 s [facility] Comment on above: IV Heparin Therapy Range: 66.0-92.0 sec BLOOD BANK SPECIMENon 2023 [facility] Basic Metab w/rfx MGon 11-24 Anion gap [Moles/Vol] 7 mmol/L Low 9-16 [facility] Comment on above: Performed By: #### B MPX, MG, CDP #### [facility] [employer] [address] [place] [address] Sales Ledger Administrator: Dwain Aldana MD Calcium [Mass/Vol] 6.6 mg/dL Low 8.6-10.4 [facility] Comment on above: Performed By: #### B MPX, MG, CDP #### [facility] [address] [place] [address] Sales Ledger Administrator: Dwain Aldana MD Chloride [Moles/Vol] 108 mmol/L High 98-107 [facility] Comment on above: Performed By: #### B MPX, MG, CDP #### [facility] [address] [place] [address] [phone] Sales Ledger Administrator: Dwain Aldana MD CO2 [Moles/Vol] 23 mmol/L Normal 20-31 [facility] Comment on above: Performed By: #### B MPX, MG, CDP #### [facility] [address] [place] [address] [phone] Sales Ledger Administrator: Dwain Aldana MD Creatinine [Mass/Vol] 0.4 mg/dL Low 0.50-0.90 [facility] Comment on above: Performed By: #### B MPX, MG, CDP #### [facility] [employer] [address] [place] [address] [phone] Sales Ledger Administrator: Dwain Aldana MD GFR/1.73 sq M.predicted among non-blacks MDRD (S/P/Bld) [Vol rate/Area] mL/min/{1.73_m2} Normal >60 [facility] Comment on above: Result Comment: These results are not intended for use in patients <18 years of age. eGFR results are calculated without a race factor using the 2020 CKD-EPI equation. Careful clinical correlation is recommended, particularly when comparing to results calculated using previous equations. The CKD-EPI equation is less accurate in patients with extremes of muscle mass, extra-renal metabolism of creatine, excessive creatine ingestion, or following therapy that affects renal tubular secretion. Performed By: #### B MPX, MG, CDP #### [facility] [employer] [address] [place] [address] [phone] Sales Ledger Administrator: Dwain Aldana MD Glucose [Mass/Vol] 81 mg/dL Normal 74-99 [facility] Comment on above: Performed By: #### B MPX, MG, CDP #### [facility] [address] [place] [address] [phone] Sales Ledger Administrator: Dwain Aldana MD Potassium [Moles/Vol] 3.6 mmol/L Low 3.7-5.3 [facility] Comment on above: Performed By: #### B MPX, MG, CDP #### [facility] [address] [place] [address] [phone] Sales Ledger Administrator: Dwain Aldana MD Sodium [Moles/Vol] 138 mmol/L Normal 136-145 [facility] Comment on above: Performed By: #### B MPX, MG, CDP #### [facility] [address] [place], [place] [phone] Sales Ledger Administrator: Dwain Aldana MD Urea nitrogen [Mass/Vol] 13 mg/dL Normal 8-23 [facility] Comment on above: Performed By: #### B MPX, MG, CDP #### [facility] [address] [place], [place] [phone] Sales Ledger Administrator: Dwain Aldana MD Basic Metabolic Panel w/ Ref merlene to on 11-25-2023 Anion gap [Moles/Vol] 7 mmol/L Low 9 - 16 mmol/L [facility] [employer] Calcium [Mass/Vol] 6.6 mg/dL Low 8.6 - 10. 4 mg/dL [facility] [employer] Chloride [Moles/Vol] 108 mmol/L High 98 - 10 7 mmol/L [facility] [employer] CO2 [Moles/Vol] 23 mmol/L 20 - 31 mmol/L [facility] Creatinine [Mass/Vol] 0.4 mg/dL Low 0.50 - 0.90 mg/dL [facility] Est, [place] [employer] Rate - [facility] [employer] Comment on above: These results are not intended for use in patients <18 years of age. eGFR results are calculated without a race factor using the 2020 CKD-EPI equation. Careful clinical correlation is recommended, particularly when comparing to results calculated using previous equations. The CKD-EPI equation is less accurate in patients with extremes of muscle mass, extra-renal metabolism of creatine, excessive creatine ingestion, or following therapy that affects renal tubular secretion. Glucose [Mass/Vol] 81 mg/dL 74 - 99 mg/dL [facility] Interpretation and review of laboratory results Abnormal [facility] Potassium [Moles/Vol] 3.6 mmol/L Low 3.7 - 5.3 mmol/L [facility] Sodium [Moles/Vol] 138 mmol/L 136 - 145 mmol/L [facility] Urea nitrogen [Mass/Vol] 13 mg/dL 8 - 23 mg/dL [facility] with Auto Differentialon 11-25-2023 Basophils (Bld) [#/Vol] 0.03 10*3/uL [facility] Basophils/100 WBC (Bld) 0 % 0 - 2 % [facility] Eosinophils (Bld) [#/Vol] 0.05 10*3/uL [facility] Eosinophils/100 WBC (Bld) 1 % 1 - 4 % [facility] Erythrocyte distribution width (RBC) [Ratio] 19.9 % High 11.8 - 14.4 % [facility] Hematocrit (Bld) [Volume fraction] 19.9 % Low 36.3 - 47.1 % [facility] Hemoglobin (Bld) [Mass/Vol] 5.8 g/dL Critically low 11.9 - 15.1 g/dL [facility] Immature granulocytes (Bld) [#/Vol] 0.06 10*3/uL [facility] Immature granulocytes/100 WBC (Bld) 1 % High 0 [facility] Interpretation and review of laboratory results Abnormal [facility] Lymphocytes/100 WBC (Bld) 18 % Low 24 - 43 % [facility] Lymphocytes/100 WBC (Bld) 1.67 % [facility] MCH (RBC) [Entitic mass] 29.7 pg 25.2 - 33.5 pg [facility] MCHC (RBC) [Mass/Vol] 29.1 g/dL 28.4 - 34.8 g/dL [facility] MCV (RBC) [Entitic vol] 102.1 fL 82.6 - 102.9 fL [facility] Monocytes/100 WBC (Bld) 8 % 3 - 12 % [facility] Monocytes/100 WBC (Bld) 0.72 % [facility] Neutrophils/100 WBC (Bld) 73 % High 36 - 65 % [facility] Nucleated RBC/100 WBC (Bld) [Ratio] 0.0 % 0.0 per 100 WBC [facility] Platelet mean volume (Bld) [Entitic vol] 11.5 fL 8.1 - 13.5 fL [facility] Platelets (Bld) [#/Vol] 186 10*3/uL [facility] RBC (Bld) [#/Vol] 1.95 10*6/uL Low 3.95 - 5.11 m/uL [facility] RBC (Bld) [#/Vol] ANISOCYTOSIS PRESENT [facility] Segmented neutrophils/100 WBC (Bld) 6.93 % [facility] WBC other (Bld) [#/Vol] 9.5 [facility] CBC with Diffon 11-25-2023 Abs. Basophil 0.03 k/uL Normal 0.00-0.20 [facility] Comment on above: Performed By: #### B MPX, MG, CDP #### [facility] [address] [place] [address] Sales Ledger Administrator: Dwain Aldana MD Abs.Imm.Granulocyte 0.06 k/uL Normal 0.00-0.30 [facility] Comment on above: Performed By: #### B MPX, MG, CDP #### [facility] [address] [place] [address] Sales Ledger Administrator: Dwain Aldana MD Abs.Neutrophil (Seg) 6.93 k/uL Normal 1.50-8.10 [facility] Comment on above: Performed By: #### B MPX, MG, CDP #### [facility] [address] [place] [address] Sales Ledger Administrator: Dwain Aldana MD Basophils/100 WBC (Bld) 0 % Normal 0-2 [facility] Comment on above: Performed By: #### B MPX, MG, CDP #### [facility] [address] [place] [address] Sales Ledger Administrator: Dwain Aldana MD Eosinophils (Bld) [#/Vol] 0.05 10*3/uL Normal 0.00-0.44 [facility] Comment on above: Performed By: #### B MPX, MG, CDP #### [address] [phone] Sales Ledger Administrator: Dwain Aldana MD Eosinophils/100 WBC (Bld) 1 % Normal 1-4 [facility] Comment on above: Performed By: #### B MPX, MG, CDP #### [facility] [address] [place] [phone] Sales Ledger Administrator: Dwain Aldana MD Erythrocyte distribution width (RBC) [Ratio] 19.9 % High 11.8-14.4 [facility] Comment on above: Performed By: #### B MPX, MG, CDP #### [facility] [address] [place] [phone] Sales Ledger Administrator: Dwain Aldana MD Hematocrit (Bld) [Volume fraction] 19.9 % Low 36.3-47.1 [facility] Comment on above: Performed By: #### B MPX, MG, CDP #### [facility] [address] [place] [phone] Sales Ledger Administrator: Dwain Aldana MD Hemoglobin (Bld) [Mass/Vol] 5.8 g/dL Critically low 11.9-15.1 [facility] Comment on above: Performed By: #### B MPX, MG, CDP #### [facility] [address] [place] [phone] Sales Ledger Administrator: Dwain Aldana MD Immature granulocytes/100 WBC (Bld) 1 % High 0 [facility] Comment on above: Performed By: #### B MPX, MG, CDP #### [facility] [address] [place] [phone] Sales Ledger Administrator: Dwain Aldana MD Lymphocytes (Bld) [#/Vol] 1.67 10*3/uL Normal 1.10-3.70 [facility] Comment on above: Performed By: #### B MPX, MG, CDP #### [facility] [address] [place] [phone] Sales Ledger Administrator: Dwain Aldana MD Lymphocytes/100 WBC (Bld) 18 % Low 24-43 [facility] Comment on above: Performed By: #### B MPX, MG, CDP #### [facility] [address] [place] [phone] Sales Ledger Administrator: Dwain Aldana MD MCH (RBC) [Entitic mass] 29.7 pg Normal 25.2-33.5 [facility] Comment on above: Performed By: #### B MPX, MG, CDP #### [facility] [address] [place] [phone] Sales Ledger Administrator: Dwain Aldana MD MCHC (RBC) [Mass/Vol] 29.1 g/dL Normal 28.4-34.8 [facility] Comment on above: Performed By: #### B MPX, MG, CDP #### [facility] [address] [place] [phone] Sales Ledger Administrator: Dwain Aldana MD MCV (RBC) [Entitic vol] 102.1 fL Normal 82.6-102.9 [facility] Comment on above: Performed By: #### B MPX, MG, CDP #### [facility] [address] [place] [phone] Sales Ledger Administrator: Dwain Aldana MD Monocytes (Bld) [#/Vol] 0.72 10*3/uL Normal 0.10-1.20 [facility] Comment on above: Performed By: #### B MPX, MG, CDP #### [facility] [address] [place] [phone] Sales Ledger Administrator: Dwain Aldana MD Monocytes/100 WBC (Bld) 8 % Normal 3-12 [facility] Comment on above: Performed By: #### B MPX, MG, CDP #### [facility] [address] [place] [phone] Sales Ledger Administrator: Dwain Aldana MD Neutrophil (Seg) 73 % High 36-65 [facility] Comment on above: Performed By: #### B MPX, MG, CDP #### [facility] [address] [place] [phone] Sales Ledger Administrator: Dwain Aldana MD NRBC Automated 0.0 per 100 WBC Normal 0.0 [facility] Comment on above: Performed By: #### B MPX, MG, CDP #### [facility] [address] [place] [phone] Sales Ledger Administrator: Dwain Aldana MD Platelet mean volume (Bld) [Entitic vol] 11.5 fL Normal 8.1-13.5 [facility] Comment on above: Performed By: #### B MPX, MG, CDP #### [address] [phone] Sales Ledger Administrator: Dwain Aldana MD Platelets (Bld) [#/Vol] 186 10*3/uL Normal 138-453 [facility] Comment on above: Performed By: #### B MPX, MG, CDP #### [address] [address] Sales Ledger Administrator: Dwain Aldana MD RBC (Bld) [#/Vol] 1.95 10*6/uL Low 3.95-5.11 [facility] Comment on above: Performed By: #### B MPX, MG, CDP #### [facility] [address] [place] [phone] Sales Ledger Administrator: Dwain Aldana MD RBC morphology finding Nom (Bld) ANISOCYTOSIS PRESENT Normal [facility] Comment on above: Performed By: #### B MPX, MG, CDP #### [facility] [address] [place] [phone] Sales Ledger Administrator: Dwain Aldana MD WBC (Bld) [#/Vol] 9.5 10*3/uL Normal 3.5-11.3 [facility] Comment on above: Performed By: #### B MPX, MG, CDP #### [facility] [place] [address] Sales Ledger Administrator: Dwain Aldana MD CTA ABDOMEN PELVIS W WO CONT Aryan 11-25-2023 CTA ABDOMEN PELVIS W WO CONTRAST EXAMINATION: CTA OF THE ABDOMEN AND PELVIS WITH AND WITHOUT CONTRAST 11/25/2023 6:27 am: TECHNIQUE: CTA of the abdomen and pelvis was performed without and with the administration of intravenous contrast. Multiplanar reformatted images are provided for review. MIP images are provided for review. Automated exposure control, iterative reconstruction, and/or weight based adjustment of the mA/kV was utilized to reduce the radiation dose to as low as reasonably achievable. COMPARISON: None. HISTORY: ORDERING SYSTEM PROVIDED HISTORY: GI bleed protocol TECHNOLOGIST PROVIDED HISTORY: GI bleed protocol Reason for Exam: gi bleed back pain FINDINGS: Lower Chest: Small bilateral pleural effusions greater on the right. Right basilar atelectasis. Vasculature: Vascular calcifications are seen compatible with atherosclerotic disease. No evidence of abdominal aortic dissection or aneurysm. Celiac axis and major branches are patent. Both renal arteries are patent and appear normal. SMA and visualized TERESA are patent. No evidence of mesenteric ischemia or contrast extravasation. Visualized bilateral iliac arteries are of normal caliber without significant stenosis. Organs: Liver is normal in size and density. No focal masses identified. No evidence of intrahepatic ductal dilatation. Spleen is normal size. The gallbladder is surgically absent. Both adrenal glands are normal. Pancreas is normal in appearance. Punctate left renal stone. Mild left hydronephrosis.. The right kidney is normal in size and attenuation without evidence of hydronephrosis or renal calculi. GI/Bowel: The visualized bowel and mesentery show no mass lesions. Diffuse wall thickening of the stomach. Pelvis: No intrapelvic mass is identified. Bladder and rectum are intact. Peritoneum/Retroperitoneum : Small amount of free fluid in the pelvis and surrounding the liver. No lymphadenopathy. No evidence of pneumoperitoneum. Bones/Soft Tissues: Small fat containing umbilical hernia. Diffuse anasarca. Degenerative changes seen in the visualized spine . No acute bony abnormalities. IMPRESSION: 1. No evidence of mesenteric ischemia or contrast extravasation. 2. Small bilateral pleural effusions greater on the right with right basilar atelectasis. 3. Small amount of free fluid in the pelvis and surrounding the liver. 4. Mild left hydronephrosis. 5. Diffuse wall thickening of the stomach possibly reflecting gastritis. Consider direct visualization. 6. Small fat containing umbilical hernia. 7. Diffuse anasarca. Interpreted by: Smith Hahn MD Signed by: Smith Hahn MD 11/25/23 Final result Normal [facility] CTA Abdominal vessels and Pe lvis vessels WO and W contrast Mike 11-25-2023 1. No evidence of mesenteric ischemia or contrast extravasation. 2. Small bilateral pleural effusions greater on the right with right basilar atelectasis. 3. Small amount of free fluid in the pelvis and surrounding the liver. 4. Mild left hydronephrosis. 5. Diffuse wall thickening of the stomach possibly reflecting gastritis. Consider direct visualization. 6. Small fat containing umbilical hernia. 7. Diffuse anasarca. [facility] RIS CONSOLIDATED EXAMINATION: CTA OF THE ABDOMEN AND PELVIS WITH AND WITHOUT CONTRAST 11/25/2023 6:27 am: TECHNIQUE: CTA of the abdomen and pelvis was performed without and with the administration of intravenous contrast. Multiplanar reformatted images are provided for review. MIP images are provided for review. Automated exposure control, iterative reconstruction, and/or weight based adjustment of the mA/kV was utilized to reduce the radiation dose to as low as reasonably achievable. COMPARISON: None. HISTORY: ORDERING SYSTEM PROVIDED HISTORY: GI bleed protocol TECHNOLOGIST PROVIDED HISTORY: GI bleed protocol Reason for Exam: gi bleed back pain FINDINGS: Lower Chest: Small bilateral pleural effusions greater on the right. Right basilar atelectasis. Vasculature: Vascular calcifications are seen compatible with atherosclerotic disease. No evidence of abdominal aortic dissection or aneurysm. Celiac axis and major branches are patent. Both renal arteries are patent and appear normal. SMA and visualized TERESA are patent. No evidence of mesenteric ischemia or contrast extravasation. Visualized bilateral iliac arteries are of normal caliber without significant stenosis. Organs: Liver is normal in size and density. No focal masses identified. No evidence of intrahepatic ductal dilatation. Spleen is normal size. The gallbladder is surgically absent. Both adrenal glands are normal. Pancreas is normal in appearance. Punctate left renal stone. Mild left hydronephrosis.. The right kidney is normal in size and attenuation without evidence of hydronephrosis or renal calculi. GI/Bowel: The visualized bowel and mesentery show no mass lesions. Diffuse wall thickening of the stomach. Pelvis: No intrapelvic mass is identified. Bladder and rectum are intact. Peritoneum/Retroperitoneum : Small amount of free fluid in the pelvis and surrounding the liver. No lymphadenopathy. No evidence of pneumoperitoneum. Bones/Soft Tissues: Small fat containing umbilical hernia. Diffuse anasarca. Degenerative changes seen in the visualized spine . No acute bony abnormalities. [facility] RIS CONSOLIDATED Smith Hahn MD - 11/25/2023 EXAMINATION: CTA OF THE ABDOMEN AND PELVIS WITH AND WITHOUT CONTRAST 11/25/2023 6:27 am: TECHNIQUE: CTA of the abdomen and pelvis was performed without and with the administration of intravenous contrast. Multiplanar reformatted images are provided for review. MIP images are provided for review. Automated exposure control, iterative reconstruction, and/or weight based adjustment of the mA/kV was utilized to reduce the radiation dose to as low as reasonably achievable. COMPARISON: None. HISTORY: ORDERING SYSTEM PROVIDED HISTORY: GI bleed protocol TECHNOLOGIST PROVIDED HISTORY: GI bleed protocol Reason for Exam: gi bleed back pain FINDINGS: Lower Chest: Small bilateral pleural effusions greater on the right. Right basilar atelectasis. Vasculature: Vascular calcifications are seen compatible with atherosclerotic disease. No evidence of abdominal aortic dissection or aneurysm. Celiac axis and major branches are patent. Both renal arteries are patent and appear normal. SMA and visualized TERESA are patent. No evidence of mesenteric ischemia or contrast extravasation. Visualized bilateral iliac arteries are of normal caliber without significant stenosis. Organs: Liver is normal in size and density. No focal masses identified. No evidence of intrahepatic ductal dilatation. Spleen is normal size. The gallbladder is surgically absent. Both adrenal glands are normal. Pancreas is normal in appearance. Punctate left renal stone. Mild left hydronephrosis.. The right kidney is normal in size and attenuation without evidence of hydronephrosis or renal calculi. GI/Bowel: The visualized bowel and mesentery show no mass lesions. Diffuse wall thickening of the stomach. Pelvis: No intrapelvic mass is identified. Bladder and rectum are intact. Peritoneum/Retroperitoneum : Small amount of free fluid in the pelvis and surrounding the liver. No lymphadenopathy. No evidence of pneumoperitoneum. Bones/Soft Tissues: Small fat containing umbilical hernia. Diffuse anasarca. Degenerative changes seen in the visualized spine . No acute bony abnormalities. IMPRESSION: 1. No evidence of mesenteric ischemia or contrast extravasation. 2. Small bilateral pleural effusions greater on the right with right basilar atelectasis. 3. Small amount of free fluid in the pelvis and surrounding the liver. 4. Mild left hydronephrosis. 5. Diffuse wall thickening of the stomach possibly reflecting gastritis. Consider direct visualization. 6. Small fat containing umbilical hernia. 7. Diffuse anasarca. [facility] Radiology Study observation (narrative) [facility] CTA Abdominal vessels and Pe lvis vessels WO and W contrast IVOrdered By: Smith Hahn on 11-25-2023 [facility] Work Phone: Hemoglobin and Hematocriton 11-25-2023 Hematocrit (Bld) [Volume fraction] 24.6 % Low 36.3 - 47.1 % [facility] Hemoglobin (Bld) [Mass/Vol] 8.5 g/dL Low 11.9 - 15.1 g/dL [facility] Interpretation and review of laboratory results Abnormal [facility] Hematocrit (Bld) [Volume fraction] 28.6 % Low 36.3 - 47.1 % [facility] Hemoglobin (Bld) [Mass/Vol] 9.2 g/dL Low 11.9 - 15.1 g/dL [facility] Interpretation and review of laboratory results Abnormal [facility] Hematocrit (Bld) [Volume fraction] 20.3 % Low 36.3 - 47.1 % [facility] Hemoglobin (Bld) [Mass/Vol] 6.6 g/dL Critically low 11.9 - 15.1 g/dL [facility] Interpretation and review of laboratory results Abnormal [facility] Hgb/Hcton 11-25-2023 Hematocrit (Bld) [Volume fraction] 28.6 % Low 36.3-47.1 [facility] Comment on above: Performed By: #### B MPX, MG, CDP #### [employer] [address] [place] [phone] Sales Ledger Administrator: Dwain Aldana MD Hemoglobin (Bld) [Mass/Vol] 9.2 g/dL Low 11.9-15.1 [facility] Comment on above: Performed By: #### B MPX, MG, CDP #### [facility] [address] [place] [phone] Sales Ledger Administrator: Dwain Aldana MD Hematocrit (Bld) [Volume fraction] 30.2 % Low 36.3-47.1 [facility] Comment on above: Performed By: #### B MPX, MG, CDP #### [facility] [address] [place] [phone] Sales Ledger Administrator: Dwain Aldana MD Hemoglobin (Bld) [Mass/Vol] 9.0 g/dL Low 11.9-15.1 [facility] Comment on above: Performed By: #### B MPX, MG, CDP #### [facility] [address] [place] [phone] Sales Ledger Administrator: Dwain Aldana MD Hematocrit (Bld) [Volume fraction] 20.3 % Low 36.3-47.1 [facility] Comment on above: Performed By: #### B MPX, MG, CDP #### [facility] [address] [place] [phone] Sales Ledger Administrator: Dwain Aldana MD Hemoglobin (Bld) [Mass/Vol] 6.6 g/dL Critically low 11.9-15.1 [facility] Comment on above: Performed By: #### B MPX, MG, CDP #### [facility] [address] [place] [phone] Sales Ledger Administrator: Dwain Aldana MD Iron Binding Cap.on 11-25-19 24 % Fe Saturation 39 % Normal 20-55 [facility] Comment on above: Performed By: #### B MPX, MG, CDP #### [facility] [address] [place] [address] Sales Ledger Administrator: Dwain Aldana MD Iron [Mass/Vol] 80 ug/dL Normal 37-145 [facility] Comment on above: Performed By: #### B MPX, MG, CDP #### [facility] [address] [place] [address] Sales Ledger Administrator: Dwain Aldana MD Total Fe Binding Cap 205 ug/dL Low 250-450 [facility] Comment on above: Performed By: #### B MPX, MG, CDP #### [employer] [address] [place] [phone] Sales Ledger Administrator: Dwain Aldana MD Unbound Fe Bind Cap 125 ug/dL Normal 112-347 [facility] Comment on above: Performed By: #### B MPX, MG, CDP #### [facility] [address] [place] [phone] Sales Ledger Administrator: Dwain Aldana MD Iron and TIBCon 11-25-2023 Interpretation and review of laboratory results Abnormal [facility] Iron [Mass/Vol] 80 ug/dL 37 - 145 ug/dL [facility] Iron binding capacity [Mass/Vol] 205 ug/dL Low 250 - 450 ug/dL [facility] Iron saturation [Mass fraction] 39 % 20 - 55 % [facility] UIBC 125 ug/dL 112 - 347 ug/dL [facility] Lactate, Sepsison 11-25-2023 Lactic Acid,Sep Wbld 0.9 mmol/L Normal 0.5-1.9 [facility] Comment on above: Performed By: #### H H #### [employer] [address] [place] [phone] Sales Ledger Administrator: Dwain Aldana MD Lactic Acid, Sepsis, Whole Blood 0.9 mmol/L 0.5 - 1.9 mmol/L [facility] Lactic Acid,Sep Wbld 0.6 mmol/L Normal 0.5-1.9 [facility] Comment on above: Performed By: #### T SHX, PRCAL #### [facility] [address] [place] [phone] Sales Ledger Administrator: Dwain Aldana MD Lactic Acid, Sepsis, Whole Blood 0.6 mmol/L 0.5 - 1.9 mmol/L [facility] Lactic Acid,Sep Wbld 0.7 mmol/L Normal 0.5-1.9 [facility] Comment on above: Performed By: #### B MPX, MG, CDP #### [facility] [address] [place] [phone] Sales Ledger Administrator: Dwain Aldana MD Lactic Acid, Sepsis, Whole Blood 0.7 mmol/L 0.5 - 1.9 mmol/L [facility] No Panel Informationon 11-24 [facility] PTon 11-25-2023 INR Coag (PPP) [Relative time] 1.2 {INR} Normal [facility] Comment on above: Result Comment: Therapeutic Range: Moderate Anticoagulant Intensity: INR = 2.0-3.0 High Anticoagulant Intensity: INR = 2.5-3.5 Performed By: #### B MPX MG, CDP #### [facility] [address] [place] [phone] Sales Ledger Administrator: Dwain Aldana MD PT Coag (PPP) [Time] 15.5 s High 11.7-14.9 [facility] Comment on above: Performed By: #### B MPX, MG, CDP #### [facility] [address] [place] [phone] Sales Ledger Administrator: Dwain Aldana MD Portable XR Chest AP single viewon 11-25-2023 Layering right great er than left pleural effusions and bibasilar atelectasis. [facility] RIS CONSOLIDATED EXAMINATION: ONE XRAY VIEW OF THE CHEST 11/25/2023 4:29 pm COMPARISON: None. HISTORY: ORDERING SYSTEM PROVIDED HISTORY: hypoxia TECHNOLOGIST PROVIDED HISTORY: hypoxia Reason for Exam: hypoxia upright port FINDINGS: Heart / Mediastinum: Heart size is normal. Normal pulmonary vasculature. Mediastinal contours are unremarkable. Lungs: Bibasilar atelectasis with no focal consolidation. Pleura: Layering right greater than left pleural effusions. Bones: No acute osseous abnormality. [facility] Keaton Saldaña MD - 11/25/2023 EXAMINATION: ONE XRAY VIEW OF THE CHEST 11/25/2023 4:29 pm COMPARISON: None. HISTORY: ORDERING SYSTEM PROVIDED HISTORY: hypoxia TECHNOLOGIST PROVIDED HISTORY: hypoxia Reason for Exam: hypoxia upright port FINDINGS: Heart / Mediastinum: Heart size is normal. Normal pulmonary vasculature. Mediastinal contours are unremarkable. Lungs: Bibasilar atelectasis with no focal consolidation. Pleura: Layering right greater than left pleural effusions. Bones: No acute osseous abnormality. IMPRESSION: Layering right greater than left pleural effusions and bibasilar atelectasis. [facility] Study observation (narrative) [facility] Portable XR Chest AP single viewOrdered By: Keaton Montilla on 11-25-2023 [facility] Work Phone: [facility] 11-25-2023 INR Coag (PPP) [Relative time] 1.2 {INR} [facility] Comment on above: Therapeutic Range: Moderate Anticoagulant Intensity: INR = 2.0-3.0 High Anticoagulant Intensity: INR = 2.5-3.5 Interpretation and review of laboratory results Abnormal [facility] PT Coag (PPP) [Time] 15.5 s High [facility] XR CHEST PORTABLEon 11-25-19 24 XR CHEST PORTABLE EXAMINATION: ONE XRAY VIEW OF THE CHEST 11/25/2023 4:29 pm COMPARISON: None. HISTORY: ORDERING SYSTEM PROVIDED HISTORY: hypoxia TECHNOLOGIST PROVIDED HISTORY: hypoxia Reason for Exam: hypoxia upright port FINDINGS: Heart / Mediastinum: Heart size is normal. Normal pulmonary vasculature. Mediastinal contours are unremarkable. Lungs: Bibasilar atelectasis with no focal consolidation. Pleura: Layering right greater than left pleural effusions. Bones: No acute osseous abnormality. IMPRESSION: Layering right greater than left pleural effusions and bibasilar atelectasis. Interpreted by: Keaton Montilla MD Signed by: Keaton Montilla MD 11/25/23 Final result Normal [facility] Erythrocyte distribution wid th Auto (RBC) [Ratio]Ordered By: Frantz Nieves on 11-21-2023 Erythrocyte distribution width (RBC) [Ratio] 16.3 % 11.9-15.3 [facility] Ferritinon 11-21-2023 Ferritin [Mass/Vol] 40.6 ng/mL Normal 11.0-306.8 [facility] Comment on above: Result Comment: PERF ORMED BY: [place] [address] PATHOLOGIST BARREL ENDSHAKER ADJUSTER EVY GARCIA M.D. Performed By: #### C JENNA, MG #### [facility] [address] [place] [address] Ferritin [Mass/volume] in Se rum or PlasmaOrdered By: Jaspal Whalen on 11-21-2023 Ferritin [Mass/Vol] 40.6 ng/mL 11.0-306.8 [facility] H Pylori Stool Ag, EIAon H Pylori Stool Ag, EIA Negative Normal Negative [facility] Comment on above: Order Comment: SOURC E OF SPECIMEN: stool Result Comment: Perf ormed at: - [facility] [address] [id number] Sales Ledger Administrator: Jonny Guzman PhD, Phone: [phone] PERFORMED BY: [place] [address] PATHOLOGIST BARREL ENDSHAKER ADJUSTER EVY GARCIA M.D. Performed By: #### C BCNO, MG #### [facility] [address] [place], [place] [id number] [facility] Hematocrit Auto (Bld) [Volum e fraction]Ordered By: Frantz Nieves on 11-21-2023 Hematocrit (Bld) [Volume fraction] 27.4 % 34.0-46.4 [facility] Hemoglobin [Mass/volume] in BloodOrdered By: Frantz Nieves on 11-21-2023 Hemoglobin (Bld) [Mass/Vol] 9.2 g/dL 11.8-15.4 [facility] Hemogram CBC Without Diffon 11-21-2023 Erythrocyte distribution width (RBC) [Ratio] 16.3 % High 11.9-15.3 [facility] Comment on above: Performed By: #### C BCNO #### [address] Hematocrit (Bld) [Volume fraction] 27.4 % Low 34.0-46.4 [facility] Comment on above: Performed By: #### C BCNO #### [address] Hemoglobin (Bld) [Mass/Vol] 9.2 g/dL Low 11.8-15.4 [facility] Comment on above: Performed By: #### C BCNO #### [address] MCH (RBC) [Entitic mass] 31.3 pg Normal 24.7-34.3 [facility] Comment on above: Performed By: #### C BCNO #### [address] MCV (RBC) [Entitic vol] 93.2 fL Normal 80-100 [facility] Comment on above: Performed By: #### C BCNO #### [address] Mean Corpuscular HGB Conc 33.6 g/dL Normal 32.0-35.0 [facility] Comment on above: Performed By: #### C BCNO #### [address] Platelet mean volume (Bld) [Entitic vol] 7.7 fL Normal 6.3-10.7 [facility] Comment on above: Result Comment: PERF ORMED BY: [place] [address] PATHOLOGIST [employer]REL ENDSHAKER ADJUSTER JIANLAN SUN M.D. Performed By: #### C BCNO #### [facility] [address] [place] [address] [place] Platelets (Bld) [#/Vol] 377 10*3/uL Normal 150-450 [facility] Comment on above: Performed By: #### C BCNO #### [facility] [address] [id number] [facility] RBC (Bld) [#/Vol] 2.94 10*6/uL Low 3.60-5.00 The [facility] Comment on above: Performed By: #### C BCNO #### [facility] [address] [place] [address] [place] WBC (Bld) [#/Vol] 8.8 10*3/uL Normal 3.8-11.6 The Pending sale to [facility] Comment on above: Performed By: #### C BCNO #### [address] Iron [Mass/volume] in Serum or PlasmaOrdered By: Jaspal Whalen on 11-21-2023 Iron [Mass/Vol] 20 ug/dL 50-212 [facility] Iron and TIBC Profileon 10-26 % Iron Saturation 6.0 % Low 20-50 The [facility] Comment on above: Performed By: #### C BCNO, MG #### [address] [id number] [facility] Iron [Mass/Vol] 20 ug/dL Low 50-212 The [facility] Comment on above: Performed By: #### C BCNO, MG #### [address] [id number] [facility] Total Iron Binding Capacity 333 ug/dL Normal 255-450 The [facility] Comment on above: Performed By: #### C BCNO, MG #### [id number] [facility] Transferrin [Mass/Vol] 238 mg/dL Normal 203-362 [facility] Comment on above: Performed By: #### C BCNO, MG #### [address] Iron binding capacity [Mass/ volume] in Serum or PlasmaOrdered By: Jaspal Whalen on 11-21-2023 Iron binding capacity [Mass/Vol] 333 ug/dL 255-450 [facility] Iron saturation [Mass Fracti on] in Serum or PlasmaOrdered By: Jaspal Whalen on 11-21-2023 Iron saturation [Mass fraction] 6.0 % 20-50 [facility] Leukocytes [#/volume] correc dalton for nucleated erythrocytes in Blood by Automated counOrdered By: Frantz Nieves on 11-21-2023 WBC corrected for nucl RBC Auto (Bld) [#/Vol] 8.8 10*3/uL 3.8-11.6 [facility] MCH Auto (RBC) [Entitic mass ]Ordered By: Frantz Nieves on 11-21-2023 MCH (RBC) [Entitic mass] 31.3 pg 24.7-34.3 [facility] MCHC Auto (RBC) [Mass/Vol]Or dered By: Frantz Nieves on 11-21-2023 MCHC (RBC) [Mass/Vol] 33.6 g/dL 32.0-35.0 [facility] MCV Auto (RBC) [Entitic vol] Ordered By: Frantz Nieves on 11-21-2023 MCV (RBC) [Entitic vol] 93.2 fL 80-100 [facility] Platelet mean volume Auto (B ld) [Entitic vol]Ordered By: Frantz Nieves on 11-21-2023 Platelet mean volume (Bld) [Entitic vol] 7.7 fL 6.3-10.7 [facility] Platelets Auto (Bld) [#/Vol] Ordered By: Frantz Nieves on 11-21-2023 Platelets (Bld) [#/Vol] 377 10*3/uL 150-450 [facility] RBC Auto (Bld) [#/Vol]Ordere d By: Frantz Nieves on 11-21-2023 RBC (Bld) [#/Vol] 2.94 10*6/uL 3.60-5.00 [facility] Transferrin [Mass/volume] in Serum or PlasmaOrdered By: Jaspal Whalen on 11-21-2023 Transferrin [Mass/Vol] 238 mg/dL 203-362 [facility] Hemoglobin and Hematocriton 11-20-2023 Hematocrit (Bld) [Volume fraction] 24.7 % Low 34.0-46.4 The [facility] Comment on above: Result Comment: PERF ORMED BY: [place] [address] PATHOLOGIST [employer] ADJUSTER EVY GARCIA M.D. Performed By: #### H H #### [address] Hemoglobin (Bld) [Mass/Vol] 8.4 g/dL Low 11.8-15.4 The [facility] Comment on above: Performed By: #### H H #### [address] Hemogram CBC Without Diffon 11-20-2023 Erythrocyte distribution width (RBC) [Ratio] 16.5 % High 11.9-15.3 The [facility] Comment on above: Performed By: #### C BCNO, MG #### [address] Hematocrit (Bld) [Volume fraction] 23.7 % Low 34.0-46.4 The [facility] Comment on above: Performed By: #### C BCNO, MG #### [address] Hemoglobin (Bld) [Mass/Vol] 8.1 g/dL Low 11.8-15.4 The [facility] Comment on above: Performed By: #### C BCNO, MG #### [address] MCH (RBC) [Entitic mass] 31.7 pg Normal 24.7-34.3 The [facility] Comment on above: Performed By: #### C BCNO, MG #### [address] MCV (RBC) [Entitic vol] 92.5 fL Normal 80-100 The [facility] Comment on above: Performed By: #### C BCNO, MG #### [facility] [address] Mean Corpuscular HGB Conc 34.2 g/dL Normal 32.0-35.0 The [facility] Comment on above: Performed By: #### C BCNO, MG #### [address] Platelet mean volume (Bld) [Entitic vol] 7.8 fL Normal 6.3-10.7 The [facility] Comment on above: Result Comment: PERF ORMED BY: [place] [address] PATHOLOGIST [employer] ADJUSTER EVY GARCIA M.D. Performed By: #### C BCNO, MG #### [address] Platelets (Bld) [#/Vol] 279 10*3/uL Normal 150-450 [facility] Comment on above: Performed By: #### C BCNO, MG #### [address] RBC (Bld) [#/Vol] 2.56 10*6/uL Low 3.60-5.00 The [facility] Comment on above: Performed By: #### C BCNO, MG #### [place] [address] [place] WBC (Bld) [#/Vol] 9.2 10*3/uL Normal 3.8-11.6 The Pending sale to [facility] Comment on above: Performed By: #### C BCNO, MG #### [place] [address] [place] Magnesiumon 11-20-2023 Magnesium [Mass/Vol] 1.7 mg/dL Low 1.9-2.7 The [facility] Comment on above: Result Comment: PERF ORMED BY: [place] [address] PATHOLOGIST [employer] ADJUSTER EVY GARCIA M.D. Performed By: #### C BCNO, MG #### [facility] [address] Magnesium [Mass/volume] in S staci or PlasmaOrdered By: Frantz Nieves on 11-20-2023 Magnesium [Mass/Vol] 1.7 mg/dL 1.9-2.7 [facility] Basic Metabolic Panelon 10-26 Anion gap [Moles/Vol] 6.7 mmol/L Normal 6.0-15.0 The [facility] Comment on above: Performed By: #### C BCNO, MG #### [facility] [address] Calcium [Mass/Vol] 6.6 mg/dL Low 8.6-10.3 The Pending sale to [facility] Comment on above: Performed By: #### C BCNO, MG #### [facility] [address] Chloride [Moles/Vol] 111 mmol/L High 98-107 The [facility] Comment on above: Performed By: #### C BCNO, MG #### [facility] [address] CO2 [Moles/Vol] 24.0 mmol/L Normal 21.0-31.0 The [facility] Comment on above: Performed By: #### C BCNO, MG #### [facility] [address] [id number] [place] Creatinine [Mass/Vol] 0.40 mg/dL Low 0.60-1.20 The [facility] Comment on above: Performed By: #### C BCNO, MG #### [facility] [address] [place] [address] [place] Creatinine Clr Calc Pharmacy 50.26 Normal The [facility] Comment on above: Performed By: #### C BCNO, MG #### [facility] [address] [id number] [place] GFR/1.73 sq M.predicted MDRD (S/P/Bld) [Vol rate/Area] mL/min/{1.73_m2} Normal [facility] Comment on above: Performed By: #### C BCNO, MG #### [facility] [address] Glucose [Mass/Vol] 88 mg/dL Normal 70-100 The Pending sale to [facility] Comment on above: Result Comment: [facility] Glucose Reference Range is dependent on time and content of last meal. Glucose of more than 200 mg/dL in a nonstressed, ambulatory subject supports the diagnosis of Diabetes Mellitus. ADA recommended reference range Performed By: #### C BCNO, MG #### [facility] [address] Potassium [Moles/Vol] 3.7 mmol/L Normal 3.5-5.1 [facility] Comment on above: Performed By: #### C BCNO, MG #### [facility] [address] Sodium [Moles/Vol] 138 mmol/L Normal 136-145 The Pending sale to [facility] Comment on above: Performed By: #### C BCNO, MG #### [facility] [address] Urea nitrogen [Mass/Vol] 15 mg/dL Normal 7-25 [facility] Comment on above: Performed By: #### C BCNO, MG #### [facility] [address] Calcium [Mass/volume] in Ser um or PlasmaOrdered By: Frantz Nieves on 11-19-2023 Calcium [Mass/Vol] 6.6 mg/dL 8.6-10.3 [facility] Carbon dioxide, total [Moles /volume] in Serum or PlasmaOrdered By: Frantz Nieves on 11-19-2023 CO2 [Moles/Vol] 24.0 mmol/L 21.0-31.0 [facility] Chloride [Moles/volume] in S staci or PlasmaOrdered By: Frantz Nieves on 11-19-2023 Chloride [Moles/Vol] 111 mmol/L 98-107 [facility] Creatinine [Mass/volume] in Serum or PlasmaOrdered By: Frantz Nieves on 11-19-2023 Creatinine [Mass/Vol] 0.40 mg/dL 0.60-1.20 [facility] Glucose [Mass/volume] in Ser um or PlasmaOrdered By: Frantz Nieves on 11-19-2023 Glucose [Mass/Vol] 88 mg/dL 70-100 [facility] Comment on above: ADA recommended refe rence rangeRandom Glucose Reference Range is dependent on time and content of last meal. Glucose of more than 200 mg/dL in a nonstressed, ambulatory subject supports the diagnosis of Diabetes Mellitus. Hemoglobin and Hematocriton 11-19-2023 Hematocrit (Bld) [Volume fraction] 26.7 % Low 34.0-46.4 [facility] Comment on above: Result Comment: PERF ORMED BY: [place] [address] PATHOLOGIST [employer] ADJUSTER EVY GARCIA M.D. Performed By: #### C BCNO, MG #### [facility] [address] [place] [address] Hemoglobin (Bld) [Mass/Vol] 9.1 g/dL Significant change down 11.8-15.4 [facility] Comment on above: Performed By: #### C BCNO, MG #### [address] Hematocrit (Bld) [Volume fraction] 19.0 % Off scale low 34.0-46.4 [facility] Comment on above: Result Comment: Crit ical value result called at 1124 on 11/19/23 PERFORMED BY: [place] [address] PATHOLOGIST [employer] ADJUSTER EVY GARCIA M.D. Performed By: #### C BCNO, MG #### [facility] [address] [place] [address] Hemoglobin (Bld) [Mass/Vol] 6.5 g/dL Low 11.8-15.4 [facility] Comment on above: Performed By: #### C BCNO, MG #### [address] Hematocrit (Bld) [Volume fraction] 22.1 % Low 34.0-46.4 [facility] Comment on above: Result Comment: PERF ORMED BY: [place] [address] PATHOLOGIST [employer] ADJUSTER EVY GARCIA M.D. Performed By: #### C BCNO, MG #### [address] Hemoglobin (Bld) [Mass/Vol] 7.5 g/dL Low 11.8-15.4 [facility] Comment on above: Performed By: #### C BCNO, MG #### [address] Hemogram CBC Without Diffon 11-19-2023 Erythrocyte distribution width (RBC) [Ratio] 16.2 % High 11.9-15.3 [facility] Comment on above: Performed By: #### C BCNO, MG #### [address] Hematocrit (Bld) [Volume fraction] 20.5 % Low 34.0-46.4 [facility] Comment on above: Performed By: #### C BCNO, MG #### [address] Hemoglobin (Bld) [Mass/Vol] 7.1 g/dL Low 11.8-15.4 [facility] Comment on above: Performed By: #### C BCNO, MG #### [address] MCH (RBC) [Entitic mass] 31.8 pg Normal 24.7-34.3 [facility] Comment on above: Performed By: #### C BCNO, MG #### [address] MCV (RBC) [Entitic vol] 92.0 fL Normal 80-100 [facility] Comment on above: Performed By: #### C BCNO, MG #### [address] Mean Corpuscular HGB Conc 34.6 g/dL Normal 32.0-35.0 [facility] Comment on above: Performed By: #### C BCNO, MG #### [address] Platelet mean volume (Bld) [Entitic vol] 7.5 fL Normal 6.3-10.7 The [facility] Comment on above: Result Comment: PERF ORMED BY: [place] [address] PATHOLOGIST [employer] ADJUSTER EVY GARCIA M.D. Performed By: #### C BCNO, MG #### [address] Platelets (Bld) [#/Vol] 247 10*3/uL Normal 150-450 [facility] Comment on above: Performed By: #### C BCNO, MG #### [address] RBC (Bld) [#/Vol] 2.23 10*6/uL Low 3.60-5.00 The [facility] Comment on above: Performed By: #### C BCNO, MG #### [address] WBC (Bld) [#/Vol] 10.1 10*3/uL Normal 3.8-11.6 [facility] Comment on above: Performed By: #### C BCNO, MG #### [address] Magnesiumon 11-19-2023 Magnesium [Mass/Vol] 2.0 mg/dL Normal 1.9-2.7 [facility] Comment on above: Result Comment: PERF ORMED BY: [place] [address] PATHOLOGIST [employer] ADJUSTER EVY GARCIA M.D. Performed By: #### C BCNO, MG #### [address] No Panel InformationOrdered By: Frantz Nieves on 11-19-2023 Estimated GFR (CKD-EPI) > 60.0 mL/Min [facility] Creatinine Clearance (Chem 50.26 [facility] Potassium [Moles/volume] in Serum or PlasmaOrdered By: Frantz Nieves on 11-19-2023 Potassium [Moles/Vol] 3.7 mmol/L 3.5-5.1 [facility] Serum or plasma anion gap de terminationOrdered By: Frantz Nieves on 11-19-2023 Anion gap [Moles/Vol] 6.7 mmol/L 6.0-15.0 [facility] Sodium [Moles/volume] in Ser um or PlasmaOrdered By: Frantz Nieves on 11-19-2023 Sodium [Moles/Vol] 138 mmol/L 136-145 [facility] Urea nitrogen [Mass/volume] in Serum or PlasmaOrdered By: Frantz Nieves on 11-19-2023 Urea nitrogen [Mass/Vol] 15 mg/dL 02-17 [facility] ABO/Rh Retypeon 11-18-2023 ABO/RH Recheck Result Positive Normal [facility] Comment on above: Result Comment: PERF ORMED BY: [facility] [address] [place] [address] PATHOLOGIST [employer] ADJUSTER EVY GARCIA M.D. Alanine aminotransferase [En zymatic activity/volume] in Serum or PlasmaOrdered By: Dale Mckeon on 11-18-2023 ALT [Catalytic activity/Vol] 14 U/L 7-52 [facility] Albumin [Mass/volume] in Ser um or Plasma by Bromocresol green (BCG) dye binding methoOrdered By: Dale Mckeon on 11-18-2023 Albumin BCG dye [Mass/Vol] 2.4 g/dL 3.5-5.7 [facility] Alkaline phosphatase [Enzyma tic activity/volume] in Serum or PlasmaOrdered By: Dale Mckeon on 11-18-2023 ALP [Catalytic activity/Vol] 44 U/L 34-104 [facility] Aspartate aminotransferase [ Enzymatic activity/volume] in Serum or PlasmaOrdered By: Dale Mckeon on 11-18-2023 AST [Catalytic activity/Vol] 17 U/L 13-39 [facility] Basophils Auto (Bld) [#/Vol] Ordered By: Dale Mckeon on 11-18-2023 Basophils (Bld) [#/Vol] N/A [facility] Basophils/100 WBC Auto (Bld) Ordered By: Dale Mckeon on 11-18-2023 Basophils/100 WBC (Bld) N/A [facility] Bilirubin.total [Mass/volume ] in Serum or PlasmaOrdered By: Dale Mckeon on 11-18-2023 Bilirubin [Mass/Vol] 0.3 mg/dL 0.3-1.0 [facility] Comprehensive Metabolic Pane will 11-18-2023 Albumin [Mass/Vol] 2.4 g/dL Low 3.5-5.7 The Pending sale to [facility] Comment on above: Performed By: #### M G, TSH3, CMP, DIFF CBC, T4F #### [facility] [address] [id number] [place] Albumin/Globulin [Mass ratio] 1.6 {ratio} Normal [facility] Comment on above: Performed By: #### M G, TSH3, CMP, DIFF CBC, T4F #### [facility] [address] [id number] [place] ALP [Catalytic activity/Vol] 44 U/L Normal 34-104 [facility] Comment on above: Performed By: #### M G, TSH3, CMP, DIFF CBC, T4F #### [facility] [address] [id number] [place] ALT [Catalytic activity/Vol] 14 U/L Normal 7-52 [facility] Comment on above: Performed By: #### M G, TSH3, CMP, DIFF CBC, T4F #### [facility] [address] [id number] [place] Anion gap [Moles/Vol] 8.8 mmol/L Normal 6.0-15.0 [facility] Comment on above: Performed By: #### M G, TSH3, CMP, DIFF CBC, T4F #### [facility] [address] [id number] [place] AST [Catalytic activity/Vol] 17 U/L Normal 13-39 [facility] Comment on above: Performed By: #### M G, TSH3, CMP, DIFF CBC, T4F #### [facility] [address] [place] [address] Bilirubin [Mass/Vol] 0.3 mg/dL Normal 0.3-1.0 [facility] Comment on above: Performed By: #### M G, TSH3, CMP, DIFF CBC, T4F #### [address] Calcium [Mass/Vol] 7.3 mg/dL Low 8.6-10.3 The Pending sale to [facility] Comment on above: Performed By: #### M G, TSH3, CMP, DIFF CBC, T4F #### [address] Chloride [Moles/Vol] 105 mmol/L Normal 98-107 [facility] Comment on above: Performed By: #### M G, TSH3, CMP, DIFF CBC, T4F #### [address] CO2 [Moles/Vol] 28.2 mmol/L Normal 21.0-31.0 The [facility] Comment on above: Performed By: #### M G, TSH3, CMP, DIFF CBC, T4F #### [address] Creatinine [Mass/Vol] 0.46 mg/dL Low 0.60-1.20 [facility] Comment on above: Performed By: #### M G, TSH3, CMP, DIFF CBC, T4F #### [place] [address] [place] Creatinine Clr Calc Pharmacy 50.26 Normal [facility] Comment on above: Performed By: #### M G, TSH3, CMP, DIFF CBC, T4F #### [place] [address] [place] GFR/1.73 sq M.predicted MDRD (S/P/Bld) [Vol rate/Area] mL/min/{1.73_m2} Normal [facility] Comment on above: Performed By: #### M G, TSH3, CMP, DIFF CBC, T4F #### [facility] [address] Globulin (S) [Mass/Vol] 1.5 g/dL Normal [facility] Comment on above: Performed By: #### M G, TSH3, CMP, DIFF CBC, T4F #### [facility] [address] Glucose [Mass/Vol] 93 mg/dL Normal 70-100 The Pending sale to [facility] Comment on above: Result Comment: [facility] Glucose Reference Range is dependent on time and content of last meal. Glucose of more than 200 mg/dL in a nonstressed, ambulatory subject supports the diagnosis of Diabetes Mellitus. ADA recommended reference range Performed By: #### M G, TSH3, CMP, DIFF CBC, T4F #### [facility] [address] Potassium [Moles/Vol] 4.0 mmol/L Normal 3.5-5.1 [facility] Comment on above: Performed By: #### M G, TSH3, CMP, DIFF CBC, T4F #### [facility] [address] Protein [Mass/Vol] 3.9 g/dL Low 6.4-8.9 The Pending sale to [facility] Comment on above: Performed By: #### M G, TSH3, CMP, DIFF CBC, T4F #### [facility] [address] [place] [address] [place] Sodium [Moles/Vol] 138 mmol/L Normal 136-145 The Pending sale to [facility] Comment on above: Performed By: #### M G, TSH3, CMP, DIFF CBC, T4F #### [facility] [address] [place] [address] [place] Urea nitrogen [Mass/Vol] 24 mg/dL Normal 7-25 [facility] Comment on above: Performed By: #### M G, TSH3, CMP, DIFF CBC, T4F #### [facility] [address] Diff and CBCon 11-18-2023 Erythrocyte distribution width (RBC) [Ratio] 17.2 % High 11.9-15.3 [facility] Comment on above: Performed By: #### M G, TSH3, CMP, DIFF CBC, T4F #### [address] Hematocrit (Bld) [Volume fraction] 16.0 % Off scale low 34.0-46.4 [facility] Comment on above: Result Comment: Crit ical value result called at 0759 on 11/18/23 Performed By: #### M G, TSH3, CMP, DIFF CBC, T4F #### [address] Hemoglobin (Bld) [Mass/Vol] 5.6 g/dL Low 11.8-15.4 [facility] Comment on above: Performed By: #### M G, TSH3, CMP, DIFF CBC, T4F #### [address] MCH (RBC) [Entitic mass] 32.8 pg Normal 24.7-34.3 [facility] Comment on above: Performed By: #### M G, TSH3, CMP, DIFF CBC, T4F #### [address] MCV (RBC) [Entitic vol] 93.3 fL Normal 80-100 [facility] Comment on above: Performed By: #### M G, TSH3, CMP, DIFF CBC, T4F #### [address] Mean Corpuscular HGB Conc 35.2 g/dL High 32.0-35.0 [facility] Comment on above: Performed By: #### M G, TSH3, CMP, DIFF CBC, T4F #### [address] Platelet Estimate Normal Normal Normal [facility] Comment on above: Performed By: #### M G, TSH3, CMP, DIFF CBC, T4F #### [address] Platelet mean volume (Bld) [Entitic vol] 7.8 fL Normal 6.3-10.7 The [facility] Comment on above: Result Comment: PERF ORMED BY: [place] [address] PATHOLOGIST [employer] ADJUSTER EVY GARCIA M.D. Performed By: #### M G, TSH3, CMP, DIFF CBC, T4F #### [address] Platelet Morphology Normal Normal Normal [facility] Comment on above: Result Comment: PERF ORMED BY: [place] [address] PATHOLOGIST [employer] ADJUSTER EVY GARCIA M.D. Performed By: #### M G, TSH3, CMP, DIFF CBC, T4F #### [address] Platelets (Bld) [#/Vol] 332 10*3/uL Normal 150-450 [facility] Comment on above: Performed By: #### M G, TSH3, CMP, DIFF CBC, T4F #### [address] RBC (Bld) [#/Vol] 1.72 10*6/uL Low 3.60-5.00 [facility] Comment on above: Performed By: #### M G, TSH3, CMP, DIFF CBC, T4F #### [address] WBC (Bld) [#/Vol] 10.9 10*3/uL Normal 3.8-11.6 [facility] Comment on above: Performed By: #### M G, TSH3, CMP, DIFF CBC, T4F #### [address] Eosinophils Auto (Bld) [#/Vo l]Ordered By: Dale Mckeon on 11-18-2023 Eosinophils (Bld) [#/Vol] N/A [facility] Eosinophils/100 WBC Auto (Bl d)Ordered By: Dale Mckeon on 11-18-2023 Eosinophils/100 WBC (Bld) N/A [facility] Free T4 (Free Thyroxine)on 0 11-18-2023 Free T4 [Mass/Vol] 1.10 ng/dL Normal 0.61-1.12 The Pending sale to [facility] Comment on above: Performed By: #### C BCNO, MG #### [address] Globulin Calc (S) [Mass/Vol] Ordered By: Dale Mckeon on 11-18-2023 Globulin (S) [Mass/Vol] 1.5 g/dL [facility] Hemoglobin and Hematocriton 11-18-2023 Hematocrit (Bld) [Volume fraction] 22.2 % Low 34.0-46.4 [facility] Comment on above: Result Comment: PERF ORMED BY: [place] [address] PATHOLOGIST [employer] ADJUSTER EVY GARCIA M.D. Performed By: #### C BCNO, MG #### [address] Hemoglobin (Bld) [Mass/Vol] 7.7 g/dL Low 11.8-15.4 [facility] Comment on above: Performed By: #### C BCNO, MG #### [address] LeukoReduced RBCon LeukoReduced RBC TRANSFUSED 11/18/23 1440 Normal [facility] Lymphocytes Auto (Bld) [#/Vo l]Ordered By: Dale Mckeon on 11-18-2023 Lymphocytes (Bld) [#/Vol] N/A [facility] Lymphocytes/100 WBC Auto (Bl d)Ordered By: Dale Mckeon on 11-18-2023 Lymphocytes/100 WBC (Bld) N/A [facility] Magnesiumon 11-18-2023 Magnesium [Mass/Vol] 1.6 mg/dL Low 1.9-2.7 [facility] Comment on above: Performed By: #### M G, TSH3, CMP, DIFF CBC, T4F #### [facility] [address] [id number] [facility] Monocytes Auto (Bld) [#/Vol] Ordered By: Dale Mckeon on 11-18-2023 Monocytes (Bld) [#/Vol] N/A [facility] Monocytes/100 WBC Auto (Bld) Ordered By: Dale Mckeon on 11-18-2023 Monocytes/100 WBC (Bld) N/A [facility] Neutrophils Auto (Bld) [#/Vo l]Ordered By: Dale Mckeon on 11-18-2023 Neutrophils (Bld) [#/Vol] N/A [facility] Neutrophils/100 WBC Auto (Bl d)Ordered By: Dale Mckeon on 11-18-2023 Neutrophils/100 WBC (Bld) N/A [facility] Nucleated erythrocytes [Pres ence] in Blood by Automated countOrdered By: Dale Mckeon on 11-18-2023 Nucleated RBC Auto Ql (Bld) N/A [facility] Platelet adequacy [Presence] in Blood by Light microscopyOrdered By: Dale Mckeon on 11-18-2023 Platelets LM Ql (Bld) Normal Normal [facility] Platelet morphology finding [Identifier] in BloodOrdered By: Dale Mckeon on 11-18-2023 Platelet morphology finding Nom (Bld) Normal Normal [facility] Protein [Mass/volume] in Ser um or PlasmaOrdered By: Dale Mckeon on 11-18-2023 Protein [Mass/Vol] 3.9 g/dL 6.4-8.9 [facility] RBC morphologyOrdered By: Krystina Mckeon on 11-18-2023 RBC morphology finding Nom (Bld) N/A [facility] Serum or plasma albumin/glob ulin mass ratioOrdered By: Dale Mckeon on 11-18-2023 Albumin/Globulin [Mass ratio] 1.6 {ratio} [facility] Thyroid Stimulating Hormoneo n 11-18-2023 TSH Qn 5.61 m[IU]/L High 0.45-5.33 [facility] Comment on above: Result Comment: PERF ORMED BY: [facility] [address] [place] [address] PATHOLOGIST BARREL ENDSHAKER ADJUSTER EVY GARCIA M.D. Performed By: #### C JENNA, MG #### [facility] [address] [place] [address] [facility] Thyrotropin [Units/volume] i n Serum or PlasmaOrdered By: Frantz Nieves on 11-18-2023 TSH Qn 5.61 m[IU]/L 0.45-5.33 [facility] Thyroxine (T4) free [Mass/vo lume] in Serum or PlasmaOrdered By: Frantz Nieves on 11-18-2023 Free T4 [Mass/Vol] 1.10 ng/dL 0.61-1.12 [facility] Type and Screenon 11-18-2023 ABO and Rh group Nom (Bld) Blood group A Rh(D) positive Normal [facility] Comment on above: Order Comment: [...] 11-18-2023 WBC (Bld) [#/Vol] 10.9 10*3/uL 3.8-11.6 [facility] Folate [Mass/volume] in Seru m or PlasmaOrdered By: Dale Mckeon on 11-17-2023 Folate [Mass/Vol] 15.0 ng/mL >5.9 [facility] Comment on above: Folate reference ran ge: >5.9 ng/mlThe WHO technical consultation on folate and vitamin m53deimoosuftew has determined that folate concentrations lessthan 4 ng/ml are considered deficient. Hemoglobin and Hematocriton 11-17-2023 Hematocrit (Bld) [Volume fraction] 20.2 % Low 34.0-46.4 [facility] Comment on above: Result Comment: PERF ORMED BY: [facility] [address] [place] [address] PATHOLOGIST BARREL ENDSHAKER ADJUSTER EVY GARCIA M.D. Performed By: #### C JENNA, MG #### [address] Hemoglobin (Bld) [Mass/Vol] 6.9 g/dL Low 11.8-15.4 [facility] Comment on above: Performed By: #### C BCNO, MG #### [address] Hematocrit (Bld) [Volume fraction] 21.5 % Low 34.0-46.4 [facility] Comment on above: Result Comment: PERF ORMED BY: [place] [address] PATHOLOGIST BARREL ENDSHAKER ADJUSTER EVY GARCIA M.D. Performed By: #### C BCNO, MG #### [address] Hemoglobin (Bld) [Mass/Vol] 7.3 g/dL Low 11.8-15.4 [facility] Comment on above: Performed By: #### C BCNO, MG #### [address] Vit. B12/Folate Profileon Cobalamin (Vitamin B12) [Mass/Vol] 816 pg/mL Normal 180-914 [facility] Comment on above: Performed By: #### C BCNO, MG #### [address] Folate 15.0 ng/mL Normal >5.9 [facility] Comment on above: Result Comment: Maribel te reference range: >5.9 ng/ml The WHO technical consultation on folate and vitamin b12 deficiencies has determined that folate concentrations less than 4 ng/ml are considered deficient. PERFORMED BY: [place] [address] PATHOLOGIST BARREL ENDSHAKER ADJUSTER EVY GARCIA M.D. Performed By: #### C BCNO, MG #### [address] Vitamin B12 ser/plasOrdered By: Dale Mckeon on 11-17-2023 Cobalamin (Vitamin B12) [Mass/Vol] 816 pg/mL 180-914 [facility] REVERSE T3on 08-29-2022 Reverse T3, Serum 23.1 ng/dL Normal 9.2-24.1 [facility] Comment on above: Result Comment: This test was developed and its performance characteristics determined by [facility]. It has not been cleared or approved by the Food and Drug Administration. Performed By: #### R EVRT3 #### [facility] [address] [place] [address] Dr. Jin Hodges T3, TOTAL (TRIIODOTHYRONINE) on 08-27-2022 T3, TOTAL 136 ng/dL Normal 71-180 [facility] Comment on above: Performed By: #### T 3TOTAL #### [facility] [address] [place] [address] Dr. Jin Hodges FREE T3on 08-26-2022 FREE T3 2.98 pg/mlL Normal 2.18-3.98 [facility] Comment on above: Performed By: #### F T3, TSH #### [facility] [address] [place] [address] Dr. Jin Hodges FREE T4on 08-26-2022 Free T4 [Mass/Vol] 0.81 ng/dL Normal 0.76-1.46 [facility] Comment on above: Performed By: #### F T4 #### [facility] [address] [place] [address] Dr. Jin Hodges TSHon 08-26-2022 TSH 0.561 uIU/mL Normal 0.358-3.74 0 [facility] Comment on above: Performed By: #### F T3, TSH #### [facility] [address] [place] [address] Dr. Jin Hodges REVERSE T3on 03-05-2022 Reverse T3, Serum 21.3 ng/dL Normal 9.2-24.1 [facility] Comment on above: Result Comment: This test was developed and its performance characteristics determined by [facility]. It has not been cleared or approved by the Food and Drug Administration. Performed By: #### R EVRT3 #### [facility] [address] [place] [address] Dr. Jin Hodges T3, TOTAL (TRIIODOTHYRONINE) on 03-01-2022 T3, TOTAL 123 ng/dL Normal 71-180 [facility] Comment on above: Performed By: #### T 3TOTAL #### [facility] [address] [place] [address] Dr. Jin Hodges FREE T3on 02-28-2022 FREE T3 3.10 pg/mlL Normal 2.18-3.98 [facility] Comment on above: Performed By: #### T SH, FT3 #### [facility] [address] [place] [address] Dr. Jin Hodges FREE T4on 02-28-2022 Free T4 [Mass/Vol] 0.92 ng/dL Normal 0.76-1.46 [facility] Comment on above: Performed By: #### F T4 #### [facility] [address] [place] [address] Dr. Jin Hodges TSHon 02-28-2022 TSH 0.133 uIU/mL Critically low 0.358-3.74 0 [facility] Comment on above: Performed By: #### T SH, FT3 #### [facility] [address] [place] [address] Dr. Jin Hodges Vital Signs Date Time Vital Sign Value Performing Clinician Facility 07-28-2024 14:25-0500 Body height 162.6 cm Stcz 5 [facility] 07-28-2024 14:25-0500 Body mass index (BMI) [Ratio] 24.2 kg/m2 Stcz 5 [facility] 07-28-2024 14:25-0500 Body weight 63.96 kg Stcz 5 [facility] 06-27-2024 14:29-0500 Body height 162.6 cm Stcz 4 [facility] 06-27-2024 14:29-0500 Body mass index (BMI) [Ratio] 25.4 kg/m2 Stcz 4 [facility] 06-27-2024 14:29-0500 Body weight 67.13 kg Stcz 4 [facility] 05-02-2024 08:54-0400 Body height 162.6 cm Catracho Sheriff MD Work Phone: [facility] 05-02-2024 08:54-0400 Body mass index (BMI) [Ratio] 24.2 kg/m2 Catracho Sheriff MD Work Phone: [facility] 05-02-2024 08:54-0400 Body weight 63.96 kg Catracho Sheriff MD Work Phone: [facility] 04-28-2024 08:56-0400 Body height 162.6 cm Catracho Sheriff MD Work Phone: [facility] 04-28-2024 08:56-0400 Body mass index (BMI) [Ratio] 24.2 kg/m2 Catracho Sheriff MD Work Phone: [facility] 04-28-2024 08:56-0400 Body weight 63.96 kg Catracho Sheriff MD Work Phone: [facility] 04-26-2024 16:21-0400 Body height 162.6 cm Catracho Sheriff MD Work Phone: [facility] 04-26-2024 16:21-0400 Body mass index (BMI) [Ratio] 24.2 kg/m2 Catracho Sheriff MD Work Phone: [facility] 04-26-2024 16:21-0400 Body weight 63.96 kg Catracho Sheriff MD Work Phone: [facility] 04-14-2024 09:26-0400 Body height 162.6 cm Catracho Sheriff MD Work Phone: [facility] 04-14-2024 09:26-0400 Body mass index (BMI) [Ratio] 24.2 kg/m2 Catracho Sheriff MD Work Phone: [facility] 04-14-2024 09:26-0400 Body weight 63.96 kg Catracho Sheriff MD Work Phone: [facility] 03-29-2024 15:37-0400 Body height 162.6 cm Stcz 4 [facility] 03-29-2024 15:37-0400 Body mass index (BMI) [Ratio] 24.2 kg/m2 [facility] 4 [facility] 03-29-2024 15:37-0400 Body weight 63.96 kg St[facility] 4 [facility] 01-29-2024 13:20-0400 Diastolic blood pressure 59 mm[Hg] Nicky Ugarte MD Work Phone: [facility] 01-29-2024 13:20-0400 Heart rate 73 /min Nicky Ugarte MD Work Phone: [facility] [employer] 01-29-2024 13:20-0400 Respiratory rate 17 /min Nicky Ugarte MD Work Phone: [facility] [employer] 01-29-2024 13:20-0400 SaO2% (BldA) [Mass fraction] 89 % Nicky Ugarte MD Work Phone: [facility] [employer] 01-29-2024 13:20-0400 Systolic blood pressure 115 mm[Hg] Nicky Ugarte MD Work Phone: [facility] [employer] 01-29-2024 12:56-0400 Body temperature 98.71 [degF] Nicky Ugarte MD Work Phone: [facility] [employer] 01-29-2024 10:57-0400 Body height 162.6 cm Nicky Ugarte MD Work Phone: [facility] [employer] 01-29-2024 10:57-0400 Body mass index (BMI) [Ratio] 24.19 kg/m2 Nicky Ugarte MD Work Phone: [facility] [employer] 01-29-2024 10:57-0400 Body weight 63.96 kg Nicky Ugarte MD Work Phone: [facility] [employer] 12-03-2023 15:31-0400 Heart rate 69 /min Ray De La Cruz MD Work Phone: [employer] 12-03-2023 15:31-0400 SaO2% (BldA) [Mass fraction] 94 % Ray De La Cruz MD Work Phone: [employer] 12-03-2023 11:02-0400 Body temperature 98.01 [degF] Ray De La Cruz MD Work Phone: [facility] [employer] 12-03-2023 11:02-0400 Diastolic blood pressure 57 mm[Hg] Ray De La Cruz MD Work Phone: [facility] [employer] 12-03-2023 11:02-0400 Respiratory rate 18 /min Ray De La Cruz MD Work Phone: [facility] [employer] 12-03-2023 11:02-0400 Systolic blood pressure 108 mm[Hg] Ray De La Cruz MD Work Phone: [facility] [employer] 12-02-2023 06:00-0400 Body mass index (BMI) [Ratio] 34.38 kg/m2 Ray De La Cruz MD Work Phone: [facility] [employer] 12-02-2023 06:00-0400 Body weight 88 kg Ray De La Cruz MD Work Phone: [facility] [employer] 11-30-2023 15:24-0400 Body height 160 cm Ray De La Cruz MD Work Phone: [facility] [employer] 11-21-2023 15:01-0400 Body temperature 97.7 [degF] MD Catracho Sheriff Work Phone: [facility] 11-21-2023 15:01-0400 Diastolic blood pressure 54 mm[Hg] MD Catracho Sheriff Work Phone: [facility] 11-21-2023 15:01-0400 Heart rate 73 /min MD Catracho Sheriff Work Phone: [facility] 11-21-2023 15:01-0400 Respiratory rate 20 /min MD Catracho Sheriff Work Phone: [facility] 11-21-2023 15:01-0400 SaO2% (BldA) [Mass fraction] 96 % MD Catracho Sheriff Work Phone: [facility] 11-21-2023 15:01-0400 Systolic blood pressure 108 mm[Hg] MD Catracho Sheriff Work Phone: [facility] 11-21-2023 05:33-0400 Body weight 73.5 kg MD Catracho Sheriff Work Phone: [facility] 11-20-2023 13:22-0400 Body height 160.02 cm MD Catracho Sheriff Work Phone: [facility] 11-19-2023 00:00-0400 Inhaled oxygen flow rate 2 L/min MD Catracho Sheriff Work Phone: [facility] 08-25-2023 10:17-0500 Body height 162.6 cm Catracho Sheriff MD Work Phone: [facility] 08-25-2023 10:17-0500 Body mass index (BMI) [Ratio] 25.06 kg/m2 Catracho Sheriff MD Work Phone: [facility] 08-25-2023 10:17-0500 Body weight 66.22 kg Catracho Sheriff MD Work Phone: [facility] Healthcare Encounters Encounter Date Encounter Type Care Provider Facility Start: 09-19-2024 End: 09-19-2024 Refill Catracho Sheriff MD Work Phone: [facility] Comment on above: Generalized anxiety disorder (CMS/HCC) Start: 07-28-2024 End: 08-01-2024 ambulatory CATRACHO SHERIFF [facility] Start: 07-28-2024 End: 08-01-2024 Subsequent hospital visit by physician Natalie Mosley Rm 5 CZ Pre-Admit Testing Start: 07-13-2024 End: 07-13-2024 Bamboo flowsheet Catracho Sheriff MD Work Phone: [facility] Start: 07-13-2024 End: 07-13-2024 Bamboo flowsheet Catracho Sheriff MD Work Phone: [facility] Start: 07-13-2024 End: 07-13-2024 Office outpatient visit 25 minutes Catracho Sheriff MD Work Phone: [facility] Comment on above: Generalized anxiety disorder (CMS/HCC) (Primary Dx); Major depressive disorder, recurrent, in partial remission (HCC) (CMS/HCC); Chronic pain syndrome; Left maxillary sinusitis; Arthritis of both knees; Fibromyalgia; Spondylosis of lumbar region without myelopathy or radiculopathy; Duodenal stricture; Failed back syndrome of lumbar spine; Peripheral edema; Postsurgical hypothyroidism (CMS/HCC); Polypharmacy Start: 07-13-2024 End: 07-13-2024 ambulatory CATRACHO SHERIFF Not Available Start: 07-07-2024 End: 08-17-2024 Telephone encounter Catracho Sheriff MD Work Phone: [facility] Start: 07-06-2024 End: 07-06-2024 Clinisync Result Encounter Catracho Sheriff MD Work Phone: [facility] Unsolicited Start: 07-06-2024 End: 07-06-2024 Clinisync Result Encounter Catracho Sheriff MD Work Phone: [facility] Unsolicited Start: 06-27-2024 End: 07-01-2024 ambulatory CATRACHO SHERIFF [facility] Start: 06-27-2024 End: 07-01-2024 Subsequent hospital visit by physician Natalie Pat Rm 4 STCZ Pre-Admit Testing Start: 06-21-2024 End: 06-21-2024 Telephone encounter Catracho Sheriff MD Work Phone: [facility] Start: 06-15-2024 End: 06-15-2024 Telephone encounter Catracho Sheriff MD Work Phone: [facility] Start: 06-11-2024 End: 06-11-2024 Refill Catracho Sheriff MD Work Phone: [facility] Comment on above: Acquired hypothyroid ism (CMS/HCC) Start: 05-02-2024 End: 05-02-2024 Bamboo flowsheet Catracho Sheriff MD Work Phone: [facility] Start: 05-02-2024 End: 05-02-2024 Bamboo flowsheet Catracho Sheriff MD Work Phone: [facility] Start: 05-02-2024 End: 05-02-2024 Office outpatient visit 15 minutes Catracho Sheriff MD Work Phone: [facility] Comment on above: Stasis dermatitis of both legs (Primary Dx); Non-pressure chronic ulcer of right lower leg, limited to breakdown of skin (CMS/HCC); Postsurgical hypothyroidism (CMS/HCC); Acute anemia; Hypokalemia; Chronic pain syndrome Start: 05-02-2024 End: 05-02-2024 ambulatory CATRACHO SHERIFF Not Available Start: 04-28-2024 End: 04-28-2024 Bamboo flowsheet Catracho Sheriff MD Work Phone: [facility] Start: 04-28-2024 End: 04-28-2024 Bamboo flowsheet Catracho Sheriff MD Work Phone: [facility] Start: 04-28-2024 End: 04-28-2024 Office outpatient visit 15 minutes Catracho Sheriff MD Work Phone: [facility] Comment on above: Venous stasis ulcer of other part of lower leg limited to breakdown of skin without varicose veins, unspecified laterality (CMS/HCC) (Primary Dx); Cellulitis of lower extremity, unspecified laterality; Venous stasis dermatitis of both lower extremities Start: 04-28-2024 End: 04-28-2024 ambulatory CATRACHO SHERIFF Not Available Start: 04-26-2024 End: 04-26-2024 Office outpatient visit 25 minutes Catracho Sheriff MD Work Phone: [facility] Comment on above: Cellulitis of lower extremity, unspecified laterality (Primary Dx); Abscess of left lower leg; Venous ulcer of lower extremity due to chronic peripheral venous hypertension (HCC) (CMS/HCC); Non-pressure ulcer of lower extremity, limited to breakdown of skin, unspecified laterality (CMS/HCC) Start: 04-26-2024 End: 04-26-2024 ambulatory CATRACHO SHERIFF Not Available Start: 04-26-2024 End: 04-26-2024 Bamboo flowsdeepti Sheriff MD Work Phone: [facility] Start: 04-26-2024 End: 04-27-2024 Bamboo arsalan Sheriff MD Work Phone: [facility] Start: 04-26-2024 End: 04-27-2024 External Result Encounter Catracho Sheriff MD Work Phone: [facility] Unsolicited Start: 04-14-2024 End: 04-14-2024 Bamumbertoo arsalan Sheriff MD Work Phone: [facility] Start: 04-14-2024 End: 04-14-2024 Bamumbertoo arsalan Sheriff MD Work Phone: [facility] Start: 04-14-2024 End: 04-14-2024 Office outpatient visit 40 minutes Catracho Sheriff MD Work Phone: [facility] Comment on above: Chronic pain syndrom e (Primary Dx); Fibromyalgia; Primary osteoarthritis, left ankle and foot; Primary osteoarthritis, right ankle and foot; Arthritis of both knees; Failed back syndrome of lumbar spine; Spondylosis of lumbar region without myelopathy or radiculopathy; Sleep arousal disorder; Generalized anxiety disorder (CMS/HCC); Controlled substance agreement signed; Polypharmacy; Duodenal stricture; Venous stasis ulcer of other part of left lower leg limited to breakdown of skin without varicose veins (CMS/HCC) Start: 04-14-2024 End: 04-14-2024 ambulatory CATRACHO SHERIFF Not Available Start: 04-12-2024 End: 04-12-2024 ambulatory EDWARD J HEMEYER [facility] Start: 03-29-2024 End: 04-02-2024 [facility] Start: 03-29-2024 End: 04-02-2024 Subsequent hospital visit by physician Natalie RIGGS Pre-Admit Testing Start: 03-01-2024 End: 03-01-2024 ambulatory LEONILA Patti ZAPATA Not Available Start: 02-16-2024 End: 02-16-2024 ambulatory LEONILA Patti ZAPATA Not Available Start: 01-29-2024 End: 01-29-2024 ambulatory NICKY SHANEL [facility] Start: 01-29-2024 End: 01-29-2024 Subsequent hospital visit by physician Nicky Ugarte MD Work Phone: [facility] Comment on above: Duodenal ulcer Start: 01-26-2024 End: 01-26-2024 ambulatory CATRACHO SHERIFF Not Available Start: 01-19-2024 End: 01-19-2024 ambulatory HÉCTORDEON SHERIFF Not Available Start: 01-18-2024 End: 01-22-2024 [facility] Start: 12-29-2023 End: 12-29-2023 ambulatory HÉCTORDEON SHERIFF Not Available Start: 11-25-2023 End: 12-03-2023 [facility] Start: 11-25-2023 End: 12-03-2023 Evaluation and management of inpatient Ray De La Cruz MD Work Phone: [facility] Comment on above: Acute anemia (Primar y Dx) Start: 11-17-2023 Non-patient / Non-visit MD Vince Sheriff Work Phone: [facility] Work Phone: Start: 11-17-2023 End: 11-21-2023 Evaluation and management of inpatient Catracho Sheriff Facility:[facility] Start: 11-17-2023 End: 11-21-2023 Evaluation and management of inpatient MD Catracho Sheriff Work Phone: [facility] Work Phone: Start: 11-03-2023 End: 11-03-2023 ambulatory CATRACHO SHERIFF Not Available Start: 10-21-2023 End: 10-21-2023 ambulatory CATRACHO SHERIFF Not Available Start: 08-25-2023 End: 08-25-2023 Office outpatient visit 25 minutes Catracho Sheriff MD Work Phone: [facility] Comment on above: Chronic pain syndrom e (Primary Dx); Chronic respiratory failure with hypoxia (CMS/HCC); Dependence on supplemental oxygen; Stasis dermatitis of both legs; Arthritis of both knees Start: 08-25-2023 End: 08-25-2023 ambulatory CATRACHO SHERIFF Not Available Start: 08-13-2023 End: 08-13-2023 ambulatory CATRACHO SHERIFF Not Available Start: 07-23-2023 End: 07-23-2023 ambulatory CATRACHO SHERIFF Not Available Start: 08-26-2022 End: 08-27-[address] CATRACHO SHERIFF Facility:[facility] Start: 02-28-2022 End: 03-01-[address] CATRACHO SHERIFF Facility:[facility] Procedures Date Procedure Procedure Detail Performing Clinician Start: 07-06-2024 ALL HEMOGLOBIN Catracho Sheriff MD Work Phone: Start: 04-26-2024 Cul bact xcpt urine blood/stool aerobic isol Catracho Sheriff MD Work Phone: Start: 12-03-2023 Assay of magnesium Manasa Pollock MD Work Phone: Start: 12-03-2023 BASIC METABOLIC PANEL W/ REFLEX TO MG FOR LOW K Manasa Pollcok MD Work Phone: Start: 12-03-2023 End: 12-03-2023 Ecg routine ecg w/least 12 lds w/i&r Carol Abreu MD Work Phone: Start: 12-02-2023 Assay of magnesium Manasa Pollock MD Work Phone: Start: 12-02-2023 BASIC METABOLIC PANEL W/ REFLEX TO MG FOR LOW K Manasa Pollock MD Work Phone: Start: 12-01-2023 Blood count hemoglobin Manasa Pollock MD Work Phone: Start: 12-01-2023 Blood count hemoglobin Manasa Pollock MD Work Phone: Start: 12-01-2023 End: 12-01-2023 ESOPHAGOGASTRODUODENOSCOPY CONTROL HEMORRHAGE Manasa Pollock MD Work Phone: Start: 12-01-2023 Antibody screen Ray De La Cruz MD Work Phone: Start: 12-01-2023 BASIC METABOLIC PANEL W/ REFLEX TO MG FOR LOW K Manasa Pollock MD Work Phone: Start: 12-01-2023 Blood count complete auto&auto difrntl wbc Manasa Pollock MD Work Phone: Start: 11-30-2023 Blood count hemoglobin Manasa Pollock MD Work Phone: Start: 11-30-2023 Blood count hemoglobin Manasa Pollock MD Work Phone: Start: 11-30-2023 End: 11-30-2023 Blood count hemoglobin Arnaud catherine MD Work Phone: Start: 11-30-2023 PREVIOUS SPECIMEN Arnaud Bryant MD Work Phone: Start: 11-30-2023 End: 11-30-2023 Transfusion of packed red blood cells Luis A Kumar MD Work Phone: Start: 11-30-2023 BASIC METABOLIC PANEL W/ REFLEX TO MG FOR LOW K Manasa Pollock MD Work Phone: Start: 11-30-2023 Calcium ionized Luis A Kumar MD Work Phone: Start: 11-29-2023 Blood count hemoglobin Luis A quach MD Work Phone: Start: 11-29-2023 Iadna s aureus methicillin resist amp probe tq Tray Pierce MD Work Phone: Start: 11-29-2023 Ct angio abd&plvis cntrst mtrl w/wo cntrst img Deanna Coyle MD Work Phone: Start: 11-29-2023 Blood count hemoglobin Deanna Coyle MD Work Phone: Start: 11-29-2023 PREVIOUS SPECIMEN Deanna Coyle MD Work Phone: Start: 11-29-2023 End: 11-29-2023 Transfusion of packed red blood cells Deanna Coyle MD Work Phone: Start: 11-29-2023 BLOOD BANK SPECIMEN Deanna Coyle MD Work Phone: Start: 11-29-2023 Blood typing serologic abo Deanna Coyle MD Work Phone: Start: 11-29-2023 Ct maxillofacial w/o contrast material Deanna Coyle MD Work Phone: Start: 11-29-2023 Assay of magnesium Deanna Coyle MD Work Phone: Start: 11-29-2023 BASIC METABOLIC PANEL W/ REFLEX TO MG FOR LOW K Deanna Coyle MD Work Phone: Start: 11-29-2023 Hepatic function panel Deanna Coyle MD Work Phone: Start: 11-28-2023 Antibody screen Ray De La Cruz MD Work Phone: Start: 11-28-2023 BASIC METABOLIC PANEL W/ REFLEX TO MG FOR LOW K Farnaz Daxa Barahonao DIRECTOR OF AUDIOLOGY - CUSTOMER RETENTION REPRESENTATIVE Work Phone: Start: 11-27-2023 End: 11-28-2023 Transfusion of packed red blood cells Jasmine Leong DIRECTOR OF AUDIOLOGY - CUSTOMER RETENTION REPRESENTATIVE Work Phone: Start: 11-27-2023 Blood count hemoglobin Deanna Coyle MD Work Phone: Start: 11-27-2023 Blood count hemoglobin Nicky Ugarte MD Work Phone: Start: 11-27-2023 Vascular embolization or occlusion hemorrhage Jossy Tellez DIRECTOR OF AUDIOLOGY - CUSTOMER RETENTION REPRESENTATIVE Work Phone: Start: 11-27-2023 Radiologic exam chest single view Deanna Coyle MD Work Phone: Start: 11-27-2023 Blood count hemoglobin Nicky Ugarte MD Work Phone: Start: 11-27-2023 Assay of magnesium Nicky Ugarte MD Work Phone: Start: 11-27-2023 BASIC METABOLIC PANEL W/ REFLEX TO MG FOR LOW K Nicky Ugarte MD Work Phone: Start: 11-26-2023 Blood count hemoglobin Nicky Ugarte MD Work Phone: Start: 11-26-2023 Blood count hemoglobin Nicky Ugarte MD Work Phone: Start: 11-26-2023 Blood count hemoglobin Nicky Ugarte MD Work Phone: Start: 11-26-2023 Assay of magnesium Kathy Mark DIRECTOR OF AUDIOLOGY - CUSTOMER RETENTION REPRESENTATIVE Work Phone: Start: 11-26-2023 BASIC METABOLIC PANEL W/ REFLEX TO MG FOR LOW K Nicky Ugarte MD Work Phone: Start: 11-25-2023 Blood count hemoglobin Nicky Ugarte MD Work Phone: Start: 11-25-2023 LACTATE, SEPSIS Nicky Ugarte MD Work Phone: Start: 11-25-2023 Radiologic exam chest single view Misti Montemayor DIRECTOR OF AUDIOLOGY - CUSTOMER RETENTION REPRESENTATIVE Work Phone: Start: 11-25-2023 Blood count hemoglobin Diana truong MD Work Phone: Start: 11-25-2023 End: 11-25-2023 ESOPHAGOGASTRODUODENOSCOPY CONTROL HEMORRHAGE Nicky Ugarte MD Work Phone: Start: 11-25-2023 LACTATE, SEPSIS Nicky Ugarte MD Work Phone: Start: 11-25-2023 End: 11-25-2023 Transfusion of packed red blood cells Jossy Aguilar Geoff APRN - CUSTOMER RETENTION REPRESENTATIVE Work Phone: Start: 11-25-2023 End: 11-25-2023 Transfusion of packed red blood cells Diana Joseph MD Work Phone: Start: 11-25-2023 Blood count complete auto&auto difrntl wbc Diana Joseph MD Work Phone: Start: 11-25-2023 Culture bacterial blood aerobic w/id isolates Diana Joseph MD Work Phone: Start: 11-25-2023 CULTURE, BLOOD 1 Diana Joseph MD Work Phone: Start: 11-25-2023 LACTATE, SEPSIS Nicky Ugarte MD Work Phone: Start: 11-25-2023 Ct angio abd&plvis cntrst mtrl w/wo cntrst img Diana Joseph MD Work Phone: Start: 11-25-2023 BLOOD BANK SPECIMEN Ray De La Cruz MD Work Phone: Start: 11-25-2023 Blood typing serologic abo Kathy Flores APRN - CUSTOMER RETENTION REPRESENTATIVE Work Phone: Start: 11-25-2023 BASIC METABOLIC PANEL W/ REFLEX TO MG FOR LOW K Kathy Flores APRN - CUSTOMER RETENTION REPRESENTATIVE Work Phone: Start: 11-25-2023 Prothrombin time Kathy Flores APRN - CUSTOMER RETENTION REPRESENTATIVE Work Phone: Start: 11-18-2023 Esophagogastroduodenoscopy MD Catracho Kimble eyer Work Phone: Start: 11-18-2023 Antibody screen Catracho Sheriff Comment on above: Order Comment: Transfuse now? Y Number of units to transfuse now? 1 Transfuse now? Y Number of units to transfuse now? 1 Transfuse now? Y Number of units to transfuse now? 1 Transfuse now? Y Number of units to transfuse now? 1 Result Comment: PERF ORMED BY: [facility] [address] [place] [address] PATHOLOGIST BARREL ENDSHAKER ADJUSTER EVY GARCIA M.D. Start: 09-12-2013 Robbie Sheriff MD Work Phone: Plan of Treatment Date Care Activity Detail Author Start: 01-23-2025 Influenza vaccination Influenza Vaccine (#1) [facility] Comment on above: Postponed from 03/27/2024 (Patient Refus ed) Start: 01-04-2025 End: 01-04-2025 Patient encounter procedure 01/04/2025 10:30 AM EDT Office Visit [facility] [address] [place] [id number] Catracho Sheriff MD [address] [place] [address] [address] [place] [address] [facility] Start: 10-31-2024 End: 05-02-2025 Thyrotropin [Units/volume] in Serum or Plasma TSH Lab Routine Postsurgical hypothyroidism (CMS/HCC) Expected: 10/31/2024 (Approximate), Expires: 05/02/2025 [facility] Work Phone: Comment on above: Expected: 10/31/2024 (Approximate), Expi res: 05/02/2025 Start: 10-31-2024 End: 05-02-2025 Thyroxine (T4) free [Mass/volume] in Serum or Plasma T4, free Lab Routine Postsurgical hypothyroidism (CMS/HCC) Expected: 10/31/2024 (Approximate), Expires: 05/02/2025 [facility] Comment on above: Expected: 10/31/2024 (Approximate), Expi res: 05/02/2025 Start: 10-31-2024 End: 05-02-2025 Triiodothyronine (T3) Free [Mass/volume] in Serum or Plasma T3, free Lab Routine Postsurgical hypothyroidism (CMS/HCC) Expected: 10/31/2024 (Approximate), Expires: 05/02/2025 [facility] Comment on above: Expected: 10/31/2024 (Approximate), Expi res: 05/02/2025 Start: 10-04-2024 End: 10-04-2024 Patient encounter procedure [facility] 00 Start: 08-13-2024 Medicare Annual Wellness (AWV) Medicare Annual Wellness (AWV) [facility] Start: 08-05-2024 End: 08-05-2024 Admission to same day surgery center 08/05/2024 2:45 PM EST - 08/05/2024 3:00 PM EST Surgery [facility] [address] [place] [address] Nicky Ugarte MD [address] [facility] [address] [place] [address] ESOPHAGOGASTRODUODENOSCOPY BIOPSY [facility] Comment on above: ESOPHAGOGASTRODUODENOSCOPY BIOPSY Start: 08-05-2024 End: 08-05-2024 Egd transoral biopsy single/multiple ESOPHAGOGASTRODUODENOSCOPY BIOPSY Duodenal ulcer 08/05/2024 2:45 PM EST [facility] Start: 08-05-2024 Subsequent hospital visit by physician 08/05/2024 2:45 PM EST Hospital Encounter [facility] [address] [place] [address] Nicky Ugarte MD [address] [facility] [address] [place], [place] [id number] [facility] Start: 07-27-2024 Annual Wellness Visit (Medicare Advantage) Annual Wellness Visit (Medicare Advantage) [facility] Start: 07-13-2024 End: 07-13-2024 Patient encounter procedure 07/13/2024 9:30 AM EST Office Visit [facility] [address] [place] [address] Catracho Sheriff MD [address] [place] [address] (Fax) Arrived [facility] Comment on above: Arrived Start: 07-12-2024 End: 07-12-2024 Patient encounter procedure [facility] 1 00 Start: 07-05-2024 End: 07-05-2024 Admission to same day surgery center 07/05/2024 10:45 AM EST - 07/05/2024 11:00 AM EST Surgery [facility] [address] [place] [address] Nicky Ugarte MD [address] [place] [address] ESOPHAGOGASTRODUODENOSCOPY WITH BIOPSY [facility] Comment on above: ESOPHAGOGASTRODUODENOSCOPY WITH BIOPSY Start: 07-05-2024 End: 07-05-2024 Egd transoral biopsy single/multiple ESOPHAGOGASTRODUODENOSCOPY BIOPSY Duodenal ulcer 07/05/2024 10:45 AM EST [facility] Start: 07-05-2024 Subsequent hospital visit by physician 07/05/2024 10:45 AM EST Hospital Encounter [facility] [address] [place] [address] Nicky Ugarte MD [address] [place] [address] [facility] Start: 05-02-2024 End: 05-02-2025 CBC W Auto Differential panel - Blood CBC and differential Lab Routine Acute anemia Expected: 05/02/2024 (Approximate), Expires: 05/02/2025 [facility] Comment on above: Expected: 05/02/2024 (Approximate), Expi res: 05/02/2025 Start: 05-02-2024 End: 05-02-2025 Comprehensive metabolic 2000 panel - Serum or Plasma Comprehensive metabolic panel Lab Routine Chronic pain syndrome Hypokalemia Expected: 05/02/2024 (Approximate), Expires: 05/02/2025 [facility] Comment on above: Expected: 05/02/2024 (Approximate), Expi res: 05/02/2025 Start: 05-02-2024 End: 05-02-2024 Patient encounter procedure [facility] 00 Comment on above: Arrived Start: 04-28-2024 End: 04-28-2024 Patient encounter procedure [facility] 00 Comment on above: Arrived Start: 04-26-2024 End: 04-26-2024 Patient encounter procedure 04/26/2024 4:15 PM EDT Office Visit [facility] [address] [place] [address] [place] [address] Catracho Sheriff MD [address] [place] [address] (Fax) Arrived [facility] Comment on above: Arrived Start: 04-26-2024 End: 04-26-2025 Bacteria identified in Wound by Culture Wound culture Microbiology Routine Abscess of left lower leg Expected: 04/26/2024 (Approximate), Expires: 04/26/2025 [facility] Work Phone: Comment on above: Expected: 04/26/2024 (Approximate), Expi res: 04/26/2025 Start: 04-14-2024 End: 04-14-2024 Patient encounter procedure 04/14/2024 9:30 AM EDT Office Visit [facility] [address] [address] Catracho Sheriff MD [address] [place] [address] (Fax) Chronic pain syndrome; Fibromyalgia; Primary osteoarthritis, left ankle and foot; Primary osteoarthritis, right ankle and foot; Spondylosis of lumbar region without myelopathy or radiculopathy; Sleep arousal disorder; Generalized anxiety disorder (CMS/HCC); Controlled substance agreement signed [facility] Comment on above: Chronic pain syndrome; Fibromyalgia; Primary osteoarthritis, left ankle and foot; Primary osteoarthritis, right ankle and foot; Spondylosis of lumbar region without myelopathy or radiculopathy; Sleep arousal disorder; Generalized anxiety disorder (CMS/HCC); Controlled substance agreement signed Start: 04-12-2024 End: 04-12-2024 Admission to same day surgery center 04/12/2024 11:30 AM EDT - 04/12/2024 11:45 AM EDT Surgery [facility] [address] [place] [address], [place] [address] Nicky Ugarte MD [address] [place] [address] ESOPHAGOGASTRODUODENOSCOPY BIOPSY POSSIBLE DILATION [facility] Comment on above: ESOPHAGOGASTRODUODENOSCOPY BIOPSY POSSIB LE DILATION Start: 04-12-2024 End: 04-12-2024 Egd transoral biopsy single/multiple ESOPHAGOGASTRODUODENOSCOPY BIOPSY Duodenal stricture 04/12/2024 11:30 AM EDT [facility] Start: 04-12-2024 Subsequent hospital visit by physician 04/12/2024 11:30 AM EDT Hospital Encounter [facility] [address] [place] [address] Nicky Ugarte MD [address] [address] [facility] Start: 03-27-2024 COVID-19 Vaccine ( season) COVID-19 Vaccine ( season) [facility] Start: 03-27-2024 Influenza vaccination Influenza Vaccine (#1) [facility] Start: 03-05-2024 End: 12-01-2024 CBC panel - Blood by Automated count CBC Lab Routine Acute anemia Expected: 03/05/2024, Expires: 12/01/2024 [facility] Comment on above: Expected: 03/05/2024, Expires: Start: 02-25-2024 Influenza vaccination [facility] Start: 01-29-2024 End: 01-29-2024 Egd transoral biopsy single/multiple ESOPHAGOGASTRODUODENOSCOPY BIOPSY Duodenal ulcer 01/29/2024 12:41 PM EDT [facility] Start: 12-09-2023 End: 12-09-2023 Patient encounter procedure 12/09/2023 10:30 AM EDT Office Visit [facility] [address] [facility] [address] [place] [id number] Nicky Ugarte MD [address] [place] [address] EGD F/u 11/25/23 & 12/01/23 [facility] Comment on above: EGD F/u 11/25/23 & 12/01/23 Start: 11-21-2023 [facility] Start: 11-17-2023 Hospital admission [facility] Start: 11-17-2023 Referral to body presser [facility] Start: 10-21-2023 End: 10-21-2023 Patient encounter procedure 10/21/2023 10:30 AM EDT Office Visit [facility] [address] [place] [address] Catracho Sheriff MD [address] [place] [address] (Fax) [facility] Start: 09-12-2023 Screening for malignant neoplasm of colon [facility] Start: 2023 Respiratory Syncytial Virus (RSV) or age 60 yrs+ (1 - 1-dose 75+ series) Respiratory Syncytial Virus (RSV) or age 60 yrs+ (1 - 1-dose 75+ series) [facility] Start: 07-27-2023 Annual Wellness Visit (Medicare Advantage) Annual Wellness Visit (Medicare Advantage) [facility] Start: 03-27-2023 COVID-19 Vaccine ( season) COVID-19 Vaccine ( season) [facility] Start: 03-27-2023 Influenza vaccination Influenza Vaccine (#1) [facility] Start: 2008 Respiratory Syncytial Virus (RSV) or age 60 yrs+ (1 - 1-dose 60+ series) Respiratory Syncytial Virus (RSV) or age 60 yrs+ (1 - 1-dose 60+ series) [facility] Start: 11-12-2004 DTaP/Tdap/Td vaccine (1 - Tdap) DTaP/Tdap/Td vaccine (1 - Tdap) [facility] Start: 2003 Screening for osteoporosis DEXA (modify frequency per FRAX score) [facility] Start: 1998 Screening for malignant neoplasm of lung [facility] Start: 1998 Shingles vaccine (1 of 2) Shingles vaccine (1 of 2) [facility] [employer] Start: 1993 Screening for malignant neoplasm of colon [facility] Start: 1988 Lipid panel Lipids [facility] Start: 1966 Hepatitis C screening Hepatitis C screen [facility] Start: 1960 Depression Screen Depression Screen [facility] Start: 1948 Screening for malignant neoplasm of colon [facility] End: 12-20-2023 Basic Metabolic Panel w/ Reflex to MG Basic Metabolic Panel w/ Reflex to MG Lab Routine Daily for 3 Weeks starting 11/30/2023 until 12/20/2023, 4 completed [facility] Comment on above: Daily for 3 Weeks starting 11/30/2023 un til 12/20/2023, 4 completed Body fluid culture Body fluid cu lture Microbiology Routine 04/26/2024 4:46 PM EDT [facility] Work Phone: End: 12-20-2023 CBC W Auto Differential panel - Blood CBC with Auto Differential Lab Routine Daily for 3 Weeks starting 11/30/2023 until 12/20/2023, 4 completed [facility] Comment on above: Daily for 3 Weeks starting 11/30/2023 un til 12/20/2023, 4 completed EKG 12 Lead EKG 12 Lead ECG Routine 12/03/2023 5:35 AM EDT [facility] EKG 12 Lead EKG 12 Lead ECG STAT 12/03/2023 5:35 AM EDT [facility] Work Phone: Helicobacter pylori Ag [Presence] in Stool by Immunoassay [facility] End: 11-29-2023 Hemoglobin and Hematocrit Hemoglobin and Hematocrit Lab Routine Post Transfusion Post Transfusion Post Transfustion until discontinued starting 11/28/2023 [facility] [employer] Comment on above: Post Transfusion Post Transfusion Post T ransfustion until discontinued starting 11/28/2023 End: 12-13-2023 Hemoglobin and Hematocrit Hemoglobin and Hematocrit Lab Routine Post Transfusion Post Transfusion Post Transfustion until discontinued starting 11/29/2023 [facility] Comment on above: Post Transfusion Post Transfusion Post T ransfustion until discontinued starting 11/29/2023 End: 12-14-2023 Hemoglobin and Hematocrit Hemoglobin and Hematocrit Lab Routine Post Transfusion Post Transfusion Post Transfustion until discontinued starting 11/30/2023 [facility] Comment on above: Post Transfusion Post Transfusion Post T ransfustion until discontinued starting 11/30/2023 End: 12-01-2023 INITIATE PACU OXYGEN THERAPY PROTOCOL Initiate PACU Oxygen Therapy Protocol Respiratory Care Routine Continuous until discontinued starting 12/01/2023 [facility] Work Phone: Comment on above: Continuous until discontinued starting 0 12/01/2023 Intermittent pulse oximetry Puls e Oximetry Spot Check Respiratory Care Routine As Needed until discontinued starting 11/27/2023 [facility] Comment on above: As Needed until discontinued starting Oxygen therapy [Mini mum Data Set] Initiate Oxygen Therapy Protocol Respiratory Care Routine As Needed until discontinued starting 11/25/2023 [facility] Comment on above: As Needed until discontinued starting Oxygen therapy [Mini mum Data Set] Initiate Oxygen Therapy Protocol Respiratory Care Routine As Needed until discontinued starting 01/29/2024 [facility] Work Phone: Comment on above: As Needed until discontinued starting Patient Education Duodenal Ulcer (DC) Pantoprazole Polysaccharide-Iron Complex [facility] Work Phone: Patient referral [facility] Work Phone: End: 11-27-2023 PREPARE RBC (CROSSMATCH), 1 Units PREPARE RBC (CROSSMATCH), 1 Units Blood Bank Routine Once for 1 Occurrences starting 11/27/2023 until 11/27/2023 [facility] Comment on above: Once for 1 Occurrences starting 11/27/19 until 11/27/2023 End: 11-29-2023 PREPARE RBC (CROSSMATCH), 1 Units PREPARE RBC (CROSSMATCH), 1 Units Blood Bank Routine Once for 1 Occurrences starting 11/29/2023 until 11/29/2023 [employer] [facility] Comment on above: Once for 1 Occurrences starting 11/29/19 until 11/29/2023 End: 11-30-2023 PREPARE RBC (CROSSMATCH), 1 Units PREPARE RBC (CROSSMATCH), 1 Units Blood Bank Routine Once for 1 Occurrences starting 11/30/2023 until 11/30/2023 [employer] [facility] Comment on above: Once for 1 Occurrences starting 11/30/19 until 11/30/2023 End: 11-29-2023 SPECIMEN REJECTION [facility] [employer] [facility] Comment on above: Once for 1 Occurrences starting 11/29/19 until 11/29/2023 End: 11-30-2023 SPECIMEN REJECTION [facility] [employer] [facility] Work Phone: Comment on above: Once for 1 Occurrences starting 11/30/19 until 11/30/2023 Surgical Pathology Surgical Path ology Lab Routine Duodenal ulcer Release Upon Ordering for 1 Occurrences starting 01/29/2024 [employer] [facility] Comment on above: Release Upon Ordering for 1 Occurrences starting 01/29/2024 End: 01-29-2024 SURGICAL PATHOLOGY REPORT SURGICAL PATHOLOGY REPORT Lab Routine Once for 1 Occurrences starting 01/29/2024 until 01/29/2024 [employer] [facility] Comment on above: Once for 1 Occurrences starting 01/29/20 until 01/29/2024 Transfuse RBC [facility] Immunizations Immunization Date Immunization Notes Care Provider [facility] 05-03-2021 Seasonal, trivalent, recombinant, injectable influenza vaccine, preservative free Catracho Sheriff MD Work Phone: [facility] 05-03-2021 influenza virus vacc ine, unspecified formulation Catracho Sheriff MD Work Phone: [facility] 12-03-2020 Pfizer Purple Cap SARS-CoV-2 Vaccination Catracho Sheriff MD Work Phone: [facility] 11-12-2020 Pfizer Purple Cap SARS-CoV-2 Vaccination Catracho Sheriff MD Work Phone: [facility] 09-26-2019 Influenza, High-dose Seasonal, Quadrivalent, Preservative Free Catracho Sheriff MD Work Phone: [facility] 09-26-2019 pneumococcal polysaccharide vaccine, 23 valent Catracho Sheriff MD Work Phone: [facility] 06-26-2018 influenza, injectabl e, quadrivalent, preservative free Catracho Sheriff MD Work Phone: [facility] 06-26-2018 pneumococcal conjuga te vaccine, 13 valent Catracho Sheriff MD Work Phone: [facility] 11-11-2004 pneumococcal polysaccharide vaccine, 23 valent Catracho Sheriff MD Work Phone: [facility] 11-11-2004 tetanus and diphther ia toxoids, adsorbed, preservative free, for adult use (5 Lf of tetanus toxoid and 2 Lf of diphtheria toxoid) Catracho Sheriff MD Work Phone: [facility] Payers Date Payer Category Payer Medicare [id number] 2023 Self-pay [id number] 2022 Medicare (Managed Care) [facility] [id number] 2008 Medicare [id number] 1959 Medicare [id number] 1948 Unknown [id number] 2.16.840.1.888339.3.579.2. 593 1948 Unknown [id number] 2.16.840.1.264159.3.579.2. 593 1948 Unknown [id number] 2.16.840.1.034063.3.579.2. 175 1948 Unknown [id number] 2.16.840.1.783964.3.579.2. 1259 1948 Unknown [id number] 2.16.840.1.721221.3.579.2. 1259 1948 Unknown [id number] 2.16.840.1.589752.3.579.2. 1259 1948 Unknown [id number] 2.16.840.1.082082.3.579.2. 1259 1948 Unknown [id number] 2.16.840.1.145236.3.579.2. 1259 1948 Unknown [id number] 2.16.840.1.609385.3.579.2. 1259 1948 Unknown [id number] 2.16.840.1.618073.3.579.2. 1259 1948 Unknown [id number] 2.16.840.1.665602.3.579.2. 1259 1948 Unknown [id number] 2.16.840.1.222044.3.579.2. 1259 1948 Unknown [id number] 2.16.840.1.109256.3.579.2. 1259 1948 Unknown [id number] 2.16.840.1.782479.3.579.2. 1259 1948 Unknown [id number] 2.16.840.1.577028.3.579.2. 1259 1948 Unknown [id number] 2.16.840.1.192148.3.579.2. 1259 1948 Unknown [id number] 2.16.840.1.520891.3.579.2. 1259 1948 Unknown [id number] 2.16.840.1.765727.3.579.2. 1259 1948 Unknown [id number] 2.16.840.1.919502.3.579.2. 176 1948 Unknown [id number] 2.16.840.1.096378.3.579.2. 176 1948 Unknown [id number] 2.16.840.1.040613.3.579.2. 176 1948 Unknown [id number] 2.16.840.1.184929.3.579.2. 176 1948 Unknown [id number] 2.16.840.1.151474.3.579.2. 176 1948 Unknown [id number] 2.16.840.1.434129.3.579.2. 176 Medicaid Medicaid [place] [id number] Medicare Medicare Outpatient [id number] Unknown HCAP/HFA/FAP Active [id number] Unknown [id number] 2.16.840.1.122097.3.579.2. 531 Social History Date Type Detail Facility Start: 08-13-2023 End: 03-29-2024 Tobacco smoking status PRIS Ex-smoker [facility] Start: 11-17-2023 End: 03-22-2024 History of tobacco use Current smoker [facility] End: 03-22-2024 History of tobacco use Cigarette Smoker [facility] Start: 08-13-2023 End: 03-29-2024 Tobacco use and exposure Smokeless tobacco non-user [facility] Start: 08-25-2023 End: 05-02-2024 Alcohol intake Ex-drinker (finding) [facility] Start: 08-25-2023 End: 10-21-2023 History of Social function [facility] Start: 08-25-2023 End: 10-21-2023 Tobacco use panel [facility] Start: 02-24-2023 Education 13 [facility] Start: 02-24-2023 Alcohol Comment Caffeine intak e: drinks decaf [facility] Start: 1950 Sex Assigned At Not on file [facility] Start: 1950 Sex Assigned At Female F [facility] Start: 11-25-2023 Tobacco smoking stat us PRIS Smokes tobacco daily [facility] Has the electric, [employer] s, oil, or water company threatened to shut off services in your home in past 12Mo Patient declined [facility] (I/We) worried wheth er (my/our) food would run out before (I/we) got money to buy more. Never true [facility] Goals Date Patient Goal Desired Activity /State Functional Status Date Assessment Result Facility 11-21-2023 Functional status Patient at Baseline [facility] Work Phone: Mental Status Date Assessment Result Facility 11-21-2023 Cognitive function Cognitive Sta tus Patient at Baseline [facility] Work Phone: Clinical Notes 08-25-2023 to 08-17-2024 Telephone Encounter - Catracho Sheriff MD - 08/17/2024 4:35 PM ESTTelephone Encounter - Catracho Sheriff MD - 08/17/2024 4:35 PM Allyson Atkinson RN - 07/28/2024 2:00 PM EST Note Date & Type Note Facility 08-17-2024 Telephone encounter Note error [facility] 08-17-2024 Miscellaneous Notes error documented in this encounter [facility] 07-28-2024 History of Present illness Narrative Pre-op Instructions For Out-Patient Endoscopy Surgery Medication Instructions: Please stop herbs and any supplements now (includes vitamins and minerals). For these medications: Dulaglutide (Trulicity), Exenatide (Byetta and Bydureon, Liraglutide (Victoza), Lixisenatide (Adlyxin), Semaglutide (Ozempic and Rybelsus), Tirzepatide (Mounjaro)- Stop 1 week prior if taking weekly or 1 day prior if taking every 12 hours or daily. Please contact your surgeon and prescribing physician for pre-op instructions for any blood thinners. Stop taking as directed If you have inhalers/aerosol treatments at home, please use them the morning of your surgery and bring the inhalers with you to the hospital. Please take the following medications the morning of your surgery with a sip of water: Albuterol, Levothyroxine, Buspar, Gabapentin Surgery Instructions: After midnight before surgery: Do not eat or drink anything, including water, mints, gum, and hard candy. You may brush your teeth without swallowing. No smoking, chewing tobacco, or street drugs. Please Follow Bowel Prep instructions if given by surgeon's office Please shower or bathe before surgery. Please do not wear any cologne, lotion, powder, jewelry, piercings, perfume, makeup, nail divehi, hair accessories, or hair spray on the day of surgery. Wear loose comfortable clothing. Leave your valuables at home but bring a payment source for any after-surgery prescriptions you plan to fill at [facility]. Bring a storage case for any glasses/contacts. An adult who is responsible for you MUST drive you home and should be with you for the first 24 hours after surgery. The Day of Surgery: Arrive at [place] [facility] at the time directed by your surgeon and check in at the desk. If you have a living will or healthcare power of privacy attorney, please bring a copy. You will be taken to the pre-op holding area where you will be prepared for surgery. A physical assessment will be performed by a nurse practitioner or supervisor hide house. Your IV will be started and you will meet your anesthesiologist. When you go to surgery, your family will be directed to the surgical waiting room, where the doctor should speak with them after your surgery. After surgery, you will be taken to the recovery area. When you are alert and stable, you will receive instructions and be prepared for discharge. Instructions reviewed, patient verbalizes understanding EGD 08/05/24 documented in this encounter [facility] 07-13-2024 History of Present illness Narrative Images from the original note were not included. Patient ID: Jenny Ewing is a 73 y.o. female who presents for: Anxiety Patient is here for evaluation of anxiety. He/She has the following anxiety symptoms: difficulty concentrating, fatigue, insomnia, racing thoughts. Onset of symptoms was approximately several years ago. Symptoms have been stable since that time. He/She denies current suicidal and homicidal ideation. Family history significant for anxiety.Possible organic causes contributing are: none. Previous treatment includes medication BuSpar and Selective Seratonin Reuptake Inhibitor Duloxetine . He/She complains of the following medication side effects: none. Chronic Pain: Pt is here for follow-up of chronic pain related to multiple diagnoses. Her/His pain is waxing and waning but worse overall with the restricted and limited use of legs. Pain is usually 8/10, described as aching, burning, sharp, and throbbing and occurs continuously. She notes she is in constant pain. I do think she she has had previous issue with taking too much medication. She is also complaining of maxillary sinus pain and nasal congestion for a couple of weeks. Review of Systems Constitutional: Negative for chills and fever. Respiratory: Negative for cough, shortness of breath and wheezing. Cardiovascular: Negative for chest pain and palpitations. Gastrointestinal: Negative for abdominal pain. Genitourinary: Negative for frequency and urgency. Objective The patient is pleasant and in no acute distress The patient does not appear to have a gross neurologic deficit. The patient has good eye contact and clear But pressured speech She has diffuse tightness through the paracervical musculature down to the shoulder blades. She is [id number] tender in this area. Decreased range of motion of shoulder. Decreased range of motion of lumbar spine. She is able to get in and out of the chair slowly using her arms as a cyst. Her gait is slow and slightly wide-based but otherwise tandem. Visit Vitals OB Status Postmenopausal Smoking Status Former Allergies Allergen Reactions Ibuprofen Other Reaction(s): Other (See Comments) GI BLEED Buspirone Other Reaction(s): angry Cephalexin Other Reaction(s): papular rash to body Codeine Other Reaction(s): nightmares Moxifloxacin Other Reaction(s): burning, skin swelling, turn red Niacin And Related Hives Remeron [Mirtazapine] Hallucinations Trazodone Other Reaction(s): iritable Varenicline Other Reaction(s): agitation Meperidine Hcl Other Reaction(s): other Penicillins Rash Current Outpatient Medications on File Prior to Visit Medication Sig Dispense Refill albuterol HFA (Ventolin HFA) 90 mcg/act inhaler Inhale 2 puffs every 6 (six) hours if needed for shortness of breath 18 g 11 Ascorbic Acid (vitamin C) 1000 MG tablet Take 1,000 mg by mouth in the morning and 1,000 mg before bedtime. b complex vitamins capsule Take 1 capsule by mouth Daily busPIRone (Buspar) 15 MG tablet Take 1 tablet at breakfast and 1 tablet lunch, and 2 tablets at bedtime. 360 tablet 1 calcium citrate 1040 MG tablet Take 250 mg by mouth in the morning and 250 mg before bedtime. cholecalciferol (Vitamin D-3) 125 MCG (5000 UT) tablet Take 5,000 Units by mouth in the morning. Winter dose. cholecalciferol (Vitamin D-3) 25 MCG (1000 UT) capsule Take 3,000 Units by mouth in the morning. Summer Dose. DULoxetine (Cymbalta) [address] capsule Take 2 capsules (40 mg) by mouth Daily 180 capsule 1 Flovent HFA 220 MCG/ACT inhaler Inhale 1 puff in the morning and 1 puff before bedtime. gabapentin (Neurontin) 100 MG capsule Take 1 capsule (100 mg) by mouth in the morning and 1 capsule (100 mg) in the evening and 1 capsule (100 mg) before bedtime. 270 capsule 1 glucosamine-chondroitin 750-600 MG tablet tablet Take 2 tablets by mouth 1 (one) time each day ipratropium-albuterol (Duo-Neb) 0.5-2.5 mg/3 mL nebulizer solution Take 3 mL by nebulization in the morning and 3 mL at noon and 3 mL in the evening and 3 mL before bedtime. 1080 mL 1 iron polysaccharides (Nu-Iron,Niferex) 150 MG capsule Take 150 mg by mouth every other day mirtazapine (Remeron) 30 MG tablet Take 1 tablet (30 mg) by mouth at bedtime 90 tablet 1 Hermleigh-3 Fatty Acids (Fish Oil) 1000 MG capsule delayed-release Take by mouth oxygen (O2) gas Inhale continuously via nasal canula; to maintain pulse ox between 90-94%. pantoprazole (ProtoNix) 40 MG EC tablet Take 40 mg by mouth STRONTIUM CITRATE Take 1 tablet by mouth in the morning. Turmeric (QC TUMERIC COMPLEX PO) Take 500 mg by mouth Daily zinc gluconate 50 MG tablet Take 50 mg by mouth See administration instructions. 1/2 tablet= 25mg Orally Once a day for 30 day(s) No current facility-administered medications on file prior to visit. 1. Generalized anxiety disorder (CMS/HCC) (Primary) Chronic problem that is relatively stable for her. We have previously refilled her prescriptions including the BuSpar, duloxetine, and mirtazapine. These medications also cross treat her depressive disorder and her sleep disorder. 2. Major depressive disorder, recurrent, in partial remission (HCC) (CMS/HCC) As above 3. Chronic pain syndrome Chronic problem, stable, multifactorial, with complex decision making. The patient presents for re-evaluation of their chronic pain syndrome and treatment [...] to continue their activities of daily living. I specifically note the patient has one or more high risk medications that is a chronic problem that specifically increases complexity of decision making and complicates all prescribing including prescription renewal consistent with a moderate or complex degree of decision making. A high-risk medicine is one that may cause serious health problems if not taken the correct way, or taken with another drug or food item that it may interact with. If the high-risk medication includes a controlled or reportable substance, The OARRS and NARX scores were reviewed and seem to be consistent with their prescribing pattern. The Current Opioid Misuse Measure (COMM) is reviewed and there is no evidence of aberrant behavior or abuse. Treatment regimens are increasingly complex and potentially harmful, and people with high risk medications need regular review and prescribing optimization. - traMADol (Ultram) 50 MG tablet; Take 2 tablets (100 mg) by mouth in the morning and 2 tablets (100 mg) at noon and 2 tablets (100 mg) in the evening and 2 tablets (100 mg) before bedtime. Dispense: 240 tablet; Refill: 1 - baclofen (Lioresal) 20 MG tablet; Take one half tablet in the morning, One half tablet at lunch, and 2 tablets in the evening Dispense: 270 tablet; Refill: 1 4. Left maxillary sinusitis Acute problem. She has had sinusitis before. In prescribing a new medication consideration of the following encompasses moderate decision making: the current prescriptions and supplements, the current allergies and medication intolerances, the current medical conditions, and potential drug interactions. Risks, benefits, and reason for starting their medication were discussed. The patient was given a chance to ask questions today and all questions were answered. The patient is to contact us if any other questions arise or if any problems occur with the adjustment in their medication. - cefuroxime (Ceftin) 500 MG tablet; Take 1 tablet (500 mg) by mouth in the morning and 1 tablet (500 mg) before bedtime. Do all this for 10 days. Dispense: 20 tablet; Refill: 0 5. Arthritis of both knees Chronic problem, comorbid condition, Stable, contributing to the chronic pain syndrome. 6. Fibromyalgia Chronic problem, comorbid condition, Stable, contributing to the chronic pain syndrome. 7. Spondylosis of lumbar region without myelopathy or radiculopathy Chronic problem, comorbid condition, Stable, contributing to the chronic pain syndrome. 8. Duodenal stricture Chronic problem that was the cause for originally placing her on the famotidine. - famotidine (Pepcid) 20 MG tablet; Take 1 tablet (20 mg) by mouth in the morning and 1 tablet (20 mg) before bedtime. Dispense: 180 tablet; Refill: 1 9. Failed back syndrome of lumbar spine Chronic problem, comorbid condition, Stable, contributing to the chronic pain syndrome. 10. Peripheral edema Chronic problem, stable In prescribing a renewal to their current medication, consideration of the following encompasses moderate decision making; the current prescriptions and supplements, the current allergies and medication intolerances, current medical conditions, and potential drug interactions. Any changes to risks, benefits, and reason for renewing their current medication due to the above were discussed. The patient was given a chance to ask questions today and all questions were answered. The patient is to contact us if any other questions arise or if any problems occur. (Utilizing the original guidelines or the 2020 office/outpatient code guidelines for selecting the level of E/M service, In both sets of guidelines, prescription drug management appears in the moderate medical decision making (MDM) row. Neither the original guidelines nor the new guidelines state that a new prescription or change is needed in order to credit prescription drug management) - spironolactone (Aldactone) 50 MG tablet; Take 1 tablet (50 mg) by mouth Daily Dose increase Dispense: 90 tablet; Refill: 1 11. Postsurgical hypothyroidism (CMS/HCC) - levothyroxine (Synthroid) 175 MCG tablet; Take 1 tablet daily Dispense: 90 tablet; Refill: 1 12. Polypharmacy Chronic problem The patient meets the criteria for polypharmacy; 5 or more prescriptions or multi-morbidity defined as 5 or more diagnoses. Polypharmacy can significantly increase the risk of preventable adverse drug events and negatively impact adherence. Consideration of diverse factors such as clinician agreement, patient perspective, and de-prescribing, as appropriate can improve patient outcomes while simplifying care. This requires longitudinal monitoring as there is at least a moderate risk of morbidity and requires at least a moderate degree of evaluation and management. documented in this encounter [facility] 06-27-2024 History of Present illness Narrative Pre-op Instructions For Out-Patient Endoscopy Surgery Medication Instructions: Please stop herbs and any supplements now (includes vitamins and minerals). Will stop For these medications: Dulaglutide (Trulicity), Exenatide (Byetta and Bydureon, Liraglutide (Victoza), Lixisenatide (Adlyxin), Semaglutide (Ozempic and Rybelsus), Tirzepatide (Mounjaro)- Stop 1 week prior if taking weekly or 1 day prior if taking every 12 hours or daily. N/A Please contact your surgeon and prescribing physician for pre-op instructions for any blood thinners. N/A If you have inhalers/aerosol treatments at home, please use them the morning of your surgery and bring the inhalers with you to the hospital. Will use If needed Please take the following medications the morning of your surgery with a sip of water: Levothryoxine Surgery Instructions: After midnight before surgery: Do not eat or drink anything, including water, mints, gum, and hard candy. You may brush your teeth without swallowing. No smoking, chewing tobacco, or street drugs. Please shower or bathe before surgery. Please do not wear any cologne, lotion, powder, jewelry, piercings, perfume, makeup, nail divehi, hair accessories, or hair spray on the day of surgery. Wear loose comfortable clothing. Leave your valuables at home but bring a payment source for any after-surgery prescriptions you plan to fill at [facility]. Bring a storage case for any glasses/contacts. An adult who is responsible for you MUST drive you home and should be with you for the first 24 hours after surgery. Son will ride in cab with her The Day of Surgery: Arrive at [facility] Entrance at the time directed by your surgeon and check in at the desk. If you have a living will or healthcare power of privacy attorney, please bring a copy. You will be taken to the pre-op holding area where you will be prepared for surgery. A physical assessment will be performed by a nurse practitioner or supervisor hide house. Your IV will be started and you will meet your anesthesiologist. When you go to surgery, your family will be directed to the surgical waiting room, where the doctor should speak with them after your surgery. After surgery, you will be taken to the recovery area. When you are alert and stable, you will receive instructions and be prepared for discharge. Pt verbalizes understanding of instructions documented in this encounter [facility] 06-21-2024 Telephone encounter Note RX sent L [facility] 06-21-2024 Miscellaneous Notes RX sent documented in this encounter [facility] 06-15-2024 Telephone encounter Note See CCM note. RX sent [facility] 06-15-2024 Miscellaneous Notes See CCM note. RX sent documented in this encounter [facility] 05-02-2024 History of Present illness Narrative Images from the original note were not included. Patient ID: Jenny Ewing is a 73 y.o. female who presents for: Pt here today for a wound check follow up from debridement done a few days ago. Review of Systems Constitutional: Negative for chills and fever. Respiratory: Negative for cough, shortness of breath and wheezing. Cardiovascular: Negative for chest pain and palpitations. Gastrointestinal: Negative for abdominal pain. Genitourinary: Negative for frequency and urgency. Objective All of her wounds look significantly better. She still has a venous stasis. There is no evidence of secondary infection. No need for further debridement. Visit Vitals Ht 5' 4 Wt 141 lb BMI 24.20 kg/m OB Status Postmenopausal Smoking Status Former BSA 1.7 m Allergies Allergen Reactions Ibuprofen Other Reaction(s): Other (See Comments) GI BLEED Buspirone Other Reaction(s): angry Cephalexin Other Reaction(s): papular rash to body Codeine Other Reaction(s): nightmares Moxifloxacin Other Reaction(s): burning, skin swelling, turn red Niacin And Related Hives Remeron [Mirtazapine] Hallucinations Trazodone Other Reaction(s): iritable Varenicline Other Reaction(s): agitation Meperidine Hcl Other Reaction(s): other Penicillins Rash Current Outpatient Medications on File Prior to Visit Medication Sig Dispense Refill albuterol HFA (Ventolin HFA) 90 mcg/act inhaler Inhale 2 puffs every 6 (six) hours if needed. 2 puffs as needed Inhalation four times daily as needed for 90 days Ascorbic Acid (vitamin C) 1000 MG tablet Take 1,000 mg by mouth in the morning and 1,000 mg before bedtime. b complex vitamins capsule Take 1 capsule by mouth Daily baclofen (Lioresal) 20 MG tablet Take one half tablet in the morning, One half tablet at lunch, and 2 tablets in the evening 270 tablet 0 busPIRone (Buspar) 15 MG tablet Take 1 tablet at breakfast and 1 tablet lunch, and 2 tablets at bedtime. 360 tablet 1 calcium citrate 1040 MG tablet Take 250 mg by mouth in the morning and 250 mg before bedtime. cholecalciferol (Vitamin D-3) 125 MCG (5000 UT) tablet Take 5,000 Units by mouth in the morning. Winter dose. cholecalciferol (Vitamin D-3) 25 MCG (1000 UT) capsule Take 3,000 Units by mouth in the morning. Summer Dose. doxycycline (Vibramycin) 100 MG capsule Take 1 capsule (100 mg) by mouth in the morning and 1 capsule (100 mg) before bedtime. Do all this for 14 days. Take with at least 8 ounces (large glass) of water. 28 capsule 0 DULoxetine (Cymbalta) [address] capsule Take 2 capsules (40 mg) by mouth Daily 180 capsule 1 famotidine (Pepcid) 20 MG tablet Take 1 tablet (20 mg) by mouth in the morning and 1 tablet (20 mg) before bedtime. 60 tablet 2 Flovent HFA 220 MCG/ACT inhaler Inhale 1 puff in the morning and 1 puff before bedtime. gabapentin (Neurontin) 100 MG capsule Take 1 capsule (100 mg) by mouth in the morning and 1 capsule (100 mg) in the evening and 1 capsule (100 mg) before bedtime. 270 capsule 1 glucosamine-chondroitin 750-600 MG tablet tablet Take 2 tablets by mouth 1 (one) time each day ipratropium-albuterol (Duo-Neb) 0.5-2.5 mg/3 mL nebulizer solution Take 3 mL by nebulization in the morning and 3 mL at noon and 3 mL in the evening and 3 mL before bedtime. 1080 mL 1 iron polysaccharides (Nu-Iron,Niferex) 150 MG capsule Take 150 mg by mouth every other day levothyroxine (Synthroid) 150 MCG tablet Take 1 tablet daily 90 tablet 1 mirtazapine (Remeron) 30 MG tablet Take 1 tablet (30 mg) by mouth at bedtime 90 tablet 1 Hermleigh-3 Fatty Acids (Fish Oil) 1000 MG capsule delayed-release Take by mouth oxygen (O2) gas Inhale continuously via nasal canula; to maintain pulse ox between 90-94%. pantoprazole (ProtoNix) 40 MG EC tablet Take 40 mg by mouth spironolactone (Aldactone) 100 MG tablet Take 0.5 tablets (50 mg) by mouth Daily Dose increase STRONTIUM CITRATE Take 1 tablet by mouth in the morning. traMADol (Ultram) 50 MG tablet Take 2 tablets (100 mg) by mouth in the morning and 2 tablets (100 mg) at noon and 2 tablets (100 mg) in the evening and 2 tablets (100 mg) before bedtime. 240 tablet 2 Turmeric (QC TUMERIC COMPLEX PO) Take 500 mg by mouth Daily zinc gluconate 50 MG tablet Take 50 mg by mouth See administration instructions. 1/2 tablet= 25mg Orally Once a day for 30 day(s) No current facility-administered medications on file prior to visit. 1. Stasis dermatitis of both legs We discussed and at this point we are going to start by adding the compression hose back in. She has zip up ones that she believes gives her very firm graded compression. She could not get the regular ones on. She talked about maybe getting a referral up to the vascular surgeon in [place]. Not sure if there is much he can do the we will go ahead and get her a referral. 2. Non-pressure chronic ulcer of right lower leg, limited to breakdown of skin (CMS/HCC) Chronic problem that is now much improved. No new lesions. At this point she can transition over she has a college in ointment from a previous 1 through wound care clinic. She may use that or use CeraVe healing cream to cover them. She does not need to keep them wrapped in dressings. 3. Postsurgical hypothyroidism (CMS/HCC) She needs lab work. - TSH; Future - T4, free; Future - T3, free; Future - TSH - T4, free - T3, free 4. Acute anemia I did check the chart in her last hemoglobin was 8 from her GI bleed and has not been checked since - CBC and differential; Future - CBC and differential 5. Hypokalemia She has had some hypokalemia and had to have an IV infusion once we will recheck this - Comprehensive metabolic panel; Future - Comprehensive metabolic panel 6. Chronic pain syndrome I did issue a handicap placard in July but due to all of her medical stuff and her rides medical stuff she never went over and got that taken care of we will real issue it. - Comprehensive metabolic panel; Future - Comprehensive metabolic panel - Handicap Placard Lifetime documented in this encounter [facility] 04-28-2024 History of Present illness Narrative Images from the original note were not included. Patient ID: Jenny Ewing is a 73 y.o. female who presents for: Pt here today for a wound check follow up from debridement done two days ago. Review of Systems Constitutional: Negative for chills and fever. Respiratory: Negative for cough, shortness of breath and wheezing. Cardiovascular: Negative for chest pain and palpitations. Gastrointestinal: Negative for abdominal pain. Genitourinary: Negative for frequency and urgency. Objective Dressing is removed. More evidence of some nonviable tissue around the edges of the wound. I spent some time gently removing this. We got back to a couple of points of bleeding. This was controlled. We did redress the wounds. Visit Vitals Ht 5' 4 Wt 141 lb BMI 24.20 kg/m OB Status Postmenopausal Smoking Status Former BSA 1.7 m Preliminary culture results are negative. Allergies Allergen Reactions Ibuprofen Other Reaction(s): Other (See Comments) GI BLEED Buspirone Other Reaction(s): angry Cephalexin Other Reaction(s): papular rash to body Codeine Other Reaction(s): nightmares Moxifloxacin Other Reaction(s): burning, skin swelling, turn red Niacin And Related Hives Remeron [Mirtazapine] Hallucinations Trazodone Other Reaction(s): iritable Varenicline Other Reaction(s): agitation Meperidine Hcl Other Reaction(s): other Penicillins Rash Current Outpatient Medications on File Prior to Visit Medication Sig Dispense Refill albuterol HFA (Ventolin HFA) 90 mcg/act inhaler Inhale 2 puffs every 6 (six) hours if needed. 2 puffs as needed Inhalation four times daily as needed for 90 days Ascorbic Acid (vitamin C) 1000 MG tablet Take 1,000 mg by mouth in the morning and 1,000 mg before bedtime. b complex vitamins capsule Take 1 capsule by mouth Daily baclofen (Lioresal) 20 MG tablet Take one half tablet in the morning, One half tablet at lunch, and 2 tablets in the evening 270 tablet 0 busPIRone (Buspar) 15 MG tablet Take 1 tablet at breakfast and 1 tablet lunch, and 2 tablets at bedtime. 360 tablet 1 calcium citrate 1040 MG tablet Take 250 mg by mouth in the morning and 250 mg before bedtime. cholecalciferol (Vitamin D-3) 125 MCG (5000 UT) tablet Take 5,000 Units by mouth in the morning. Winter dose. cholecalciferol (Vitamin D-3) 25 MCG (1000 UT) capsule Take 3,000 Units by mouth in the morning. Summer Dose. doxycycline (Vibramycin) 100 MG capsule Take 1 capsule (100 mg) by mouth in the morning and 1 capsule (100 mg) before bedtime. Do all this for 14 days. Take with at least 8 ounces (large glass) of water. 28 capsule 0 DULoxetine (Cymbalta) [address] capsule Take 2 capsules (40 mg) by mouth Daily 180 capsule 1 famotidine (Pepcid) 20 MG tablet Take 1 tablet (20 mg) by mouth in the morning and 1 tablet (20 mg) before bedtime. 60 tablet 2 Flovent HFA 220 MCG/ACT inhaler Inhale 1 puff in the morning and 1 puff before bedtime. gabapentin (Neurontin) 100 MG capsule Take 1 capsule (100 mg) by mouth in the morning and 1 capsule (100 mg) in the evening and 1 capsule (100 mg) before bedtime. 270 capsule 1 glucosamine-chondroitin 750-600 MG tablet tablet Take 2 tablets by mouth 1 (one) time each day ipratropium-albuterol (Duo-Neb) 0.5-2.5 mg/3 mL nebulizer solution Take 3 mL by nebulization in the morning and 3 mL at noon and 3 mL in the evening and 3 mL before bedtime. 1080 mL 1 iron polysaccharides (Nu-Iron,Niferex) 150 MG capsule Take 150 mg by mouth every other day levothyroxine (Synthroid) 150 MCG tablet Take 1 tablet daily 90 tablet 1 mirtazapine (Remeron) 30 MG tablet Take 1 tablet (30 mg) by mouth at bedtime 90 tablet 1 Hermleigh-3 Fatty Acids (Fish Oil) 1000 MG capsule delayed-release Take by mouth oxygen (O2) gas Inhale continuously via nasal canula; to maintain pulse ox between 90-94%. pantoprazole (ProtoNix) 40 MG EC tablet Take 40 mg by mouth spironolactone (Aldactone) 100 MG tablet Take 0.5 tablets (50 mg) by mouth Daily Dose increase STRONTIUM CITRATE Take 1 tablet by mouth in the morning. traMADol (Ultram) 50 MG tablet Take 2 tablets (100 mg) by mouth in the morning and 2 tablets (100 mg) at noon and 2 tablets (100 mg) in the evening and 2 tablets (100 mg) before bedtime. 240 tablet 2 Turmeric (QC TUMERIC COMPLEX PO) Take 500 mg by mouth Daily zinc gluconate 50 MG tablet Take 50 mg by mouth See administration instructions. 1/2 tablet= 25mg Orally Once a day for 30 day(s) No current facility-administered medications on file prior to visit. 1. Venous stasis ulcer of other part of lower leg limited to breakdown of skin without varicose veins, unspecified laterality (CMS/HCC) I did not debride and clean the areas. There proximally 3 ulcers on the right and for ulcers on the left. That 1 that appeared abscess 2 days ago seems to be improved. There is no evidence of fluctuance or pus anymore. The wounds were redressed. At ask the patient to change the dressings on Thursday. I would like her to come back to the office on Thursday to re-evaluate. 2. Cellulitis of lower extremity, unspecified laterality Reviewed the doxycycline antibiotic she is on. 3. Venous stasis dermatitis of both lower extremities For now I would like her to get her legs raised whenever she is sitting. I do want her to walk a little bit as I do not want her to develop a thrombophlebitis. documented in this encounter [facility] 04-26-2024 History of Present illness Narrative Images from the original note were not included. Patient ID: Jenny Ewing is a 73 y.o. female who presents for: She is here with her friend Radha today. Wound Check Patient presents for initial wound check. Patient has a multiple wounds which is located on the both right and left leg with left leg worse than the right. Current symptoms: redness, swelling, warmth with several small ulcers on each lower leg on the shins and calves and left leg has an ulcer a little over half dollar size. Symptoms began several days ago. Interventions to date: she has been self dressing and using bacitracin. Review of Systems Constitutional: Negative for chills and fever. Respiratory: Negative for cough, shortness of breath and wheezing. Cardiovascular: Negative for chest pain and palpitations. Gastrointestinal: Negative for abdominal pain. Genitourinary: Negative for frequency and urgency. Objective She is in no distress. Her legs are rather swollen and significantly violaceous. There are multiple skin breakdowns noted bilaterally the left side is worse than the right. These breakdowns appear to be through the dermis but no deeper. There is a significant amount of devitalized tissue and eschar. There is some hernan pus underneath 1 of the eschar is I removed and we did send culture of this. I counted a total of 7 wounds on the left leg and 3 wounds on the right leg. The 1 with a hernan pus was on the left lateral side of the leg mid calf. I was able to gently debride these fairly significantly without any anesthesia. Visit Vitals Ht 5' 4 Wt 141 lb BMI 24.20 kg/m OB Status Postmenopausal Smoking Status Former BSA 1.7 m Allergies Allergen Reactions Ibuprofen Other Reaction(s): Other (See Comments) GI BLEED Buspirone Other Reaction(s): angry Cephalexin Other Reaction(s): papular rash to body Codeine Other Reaction(s): nightmares Moxifloxacin Other Reaction(s): burning, skin swelling, turn red Niacin And Related Hives Remeron [Mirtazapine] Hallucinations Trazodone Other Reaction(s): iritable Varenicline Other Reaction(s): agitation Meperidine Hcl Other Reaction(s): other Penicillins Rash Current Outpatient Medications on File Prior to Visit Medication Sig Dispense Refill albuterol HFA (Ventolin HFA) 90 mcg/act inhaler Inhale 2 puffs every 6 (six) hours if needed. 2 puffs as needed Inhalation four times daily as needed for 90 days Ascorbic Acid (vitamin C) 1000 MG tablet Take 1,000 mg by mouth in the morning and 1,000 mg before bedtime. b complex vitamins capsule Take 1 capsule by mouth Daily baclofen (Lioresal) 20 MG tablet Take one half tablet in the morning, One half tablet at lunch, and 2 tablets in the evening 270 tablet 0 busPIRone (Buspar) 15 MG tablet Take 1 tablet at breakfast and 1 tablet lunch, and 2 tablets at bedtime. 360 tablet 1 calcium citrate 1040 MG tablet Take 250 mg by mouth in the morning and 250 mg before bedtime. cholecalciferol (Vitamin D-3) 125 MCG (5000 UT) tablet Take 5,000 Units by mouth in the morning. Winter dose. cholecalciferol (Vitamin D-3) 25 MCG (1000 UT) capsule Take 3,000 Units by mouth in the morning. Summer Dose. DULoxetine (Cymbalta) [address] capsule Take 2 capsules (40 mg) by mouth Daily 180 capsule 1 famotidine (Pepcid) 20 MG tablet Take 1 tablet (20 mg) by mouth in the morning and 1 tablet (20 mg) before bedtime. 60 tablet 2 Flovent HFA 220 MCG/ACT inhaler Inhale 1 puff in the morning and 1 puff before bedtime. gabapentin (Neurontin) 100 MG capsule Take 1 capsule (100 mg) by mouth in the morning and 1 capsule (100 mg) in the evening and 1 capsule (100 mg) before bedtime. 270 capsule 1 glucosamine-chondroitin 750-600 MG tablet tablet Take 2 tablets by mouth 1 (one) time each day ipratropium-albuterol (Duo-Neb) 0.5-2.5 mg/3 mL nebulizer solution Take 3 mL by nebulization in the morning and 3 mL at noon and 3 mL in the evening and 3 mL before bedtime. 1080 mL 1 iron polysaccharides (Nu-Iron,Niferex) 150 MG capsule Take 150 mg by mouth every other day levothyroxine (Synthroid) 150 MCG tablet Take 1 tablet daily 90 tablet 1 mirtazapine (Remeron) 30 MG tablet Take 1 tablet (30 mg) by mouth at bedtime 90 tablet 1 Hermleigh-3 Fatty Acids (Fish Oil) 1000 MG capsule delayed-release Take by mouth oxygen (O2) gas Inhale continuously via nasal canula; to maintain pulse ox between 90-94%. pantoprazole (ProtoNix) 40 MG EC tablet Take 40 mg by mouth spironolactone (Aldactone) 100 MG tablet Take 0.5 tablets (50 mg) by mouth Daily Dose increase STRONTIUM CITRATE Take 1 tablet by mouth in the morning. traMADol (Ultram) 50 MG tablet Take 2 tablets (100 mg) by mouth in the morning and 2 tablets (100 mg) at noon and 2 tablets (100 mg) in the evening and 2 tablets (100 mg) before bedtime. 240 tablet 2 Turmeric (QC TUMERIC COMPLEX PO) Take 500 mg by mouth Daily zinc gluconate 50 MG tablet Take 50 mg by mouth See administration instructions. 1/2 tablet= 25mg Orally Once a day for 30 day(s) No current facility-administered medications on file prior to visit. 1. Abscess of left lower leg I gently cleanse the area where there was hernan pus after debriding it. We did place Telfa dressing with bacitracin antibiotic ointment over all of the open wounds and used cling to wrapped the leg. - Wound culture; Future - Wound culture 2. Cellulitis of lower extremity, unspecified laterality (Primary) In prescribing a new medication consideration of the following encompasses moderate decision making: the current prescriptions and supplements, the current allergies and medication intolerances, the current medical conditions, and potential drug interactions. Risks, benefits, and reason for starting their medication were discussed. The patient was given a chance to ask questions today and all questions were answered. The patient is to contact us if any other questions arise or if any problems occur with the adjustment in their medication. - doxycycline (Vibramycin) 100 MG capsule; Take 1 capsule (100 mg) by mouth in the morning and 1 capsule (100 mg) before bedtime. Do all this for 14 days. Take with at least 8 ounces (large glass) of water. Dispense: 28 capsule; Refill: 0 Chronic problem The patient meets the criteria for polypharmacy; 5 or more prescriptions or multi-morbidity defined as 5 or more diagnoses. Polypharmacy can significantly increase the risk of preventable adverse drug events and negatively impact adherence. Consideration of diverse factors such as clinician agreement, patient perspective, and de-prescribing, as appropriate can improve patient outcomes while simplifying care. This requires longitudinal monitoring as there is at least a moderate risk of morbidity and requires at least a moderate degree of evaluation and management. 3. Venous ulcer of lower extremity due to chronic peripheral venous hypertension (HCC) (CMS/HCC) She has not multiple bilateral non pressure ulcers secondary to the venous insufficiency. She just kept saying over and over again she can not understand. I explained to her several times and I asked her friend choice if she understood the explanation and she agreed that it was pretty straight forward. I do not think Jenny wants to hear this. I also discussed with her the importance of when she is sitting down to get her legs elevated to at least the level of her heart. Normally she props them up a little bit and considers at elevation and we have talked about this multiple times. We have also previously talked about the importance of prevention and using graded compression hose which she states she can not put on. We also discussed the zippered kind if she can not pull the other ones up and again this was met with resistance. documented in this encounter [facility] 04-14-2024 History of Present illness Narrative Images from the original note were not included. Patient ID: Jenny Ewing is a 73 y.o. female who presents for: She again is here with her friend Radha who is helping her. Anxiety Patient is here for evaluation of anxiety. He/She has the following anxiety symptoms: Concentration. Onset of symptoms was approximately several years ago. Symptoms have been stable since that time. He/She denies current suicidal and homicidal ideation. Family history significant for no psychiatric illness.Possible organic causes contributing are: none. Previous treatment includes medication BuSpar and duloxetine . He/She complains of the following medication side effects: none. Pain Pt is here for follow-up of chronic pain related to Back and hips. Her/His pain is stable with the restricted and limited use of legs. Pain is usually 6/10, described as sharp and occurs every day. Intermittent Sciatica down the left leg. She also complains of fibromyalgia muscle pain. She has diffuse arthralgias with arthritis. She actually asked if we could increase her baclofen dosing. Onset of symptoms has been several years. How many hours of sleep is patient getting on average night: 4-4.5 How long does it take patient to get to sleep each night: varies Does he/she have trouble falling asleep: no Does he/she have trouble maintaining sleep: yes Does patient have good sleep hygiene: no Review of Systems Constitutional: Negative for appetite change and fatigue. Psychiatric/Behavioral: Positive for sleep disturbance. Negative for agitation, behavioral problems and suicidal ideas. The patient is nervous/anxious. They also had some questions about her medications. She had recent EGD with duodenal stricture. Pathology pending. She stated the surgeon prescribed a new PPI for her. That would cause her to have to PPIs. Objective Appearance: Well-groomed, in no acute distress Abnormal body movements: None Affect: Appropriate and appears to be full range Attention: Good Attitude: Cooperative Degree of awareness of surroundings: Grossly within normal limits Impulse control: Appears to be good Insight: Appears to be fair Fund of knowledge; adequate Judgment: Appears to be adequate Perceptual disorders: No perceptual disorders noted Psychomotor activity: Within normal range Speech: Clear, normal variability and rate Thought content: Unremarkable Diffuse arthritic changes present in both hands and knees. No specific increasing calor rubor. Patient demonstrates stiffness and pain when making fists. She can get in and out of the chair was some mild push off. Has a slow and slightly widened gait. She is also mildly forward flexed with ambulation. Small ulceration on left lateral leg Only into the dermis. Visit Vitals Ht 5' 4 Wt 141 lb BMI 24.20 kg/m OB Status Postmenopausal Smoking Status Former BSA 1.7 m PDMP reviewed, Catracho Sheriff MD on 04/14/2024 10:04 AM Appears as expected. COMM reviewed Allergies Allergen Reactions Ibuprofen Other Reaction(s): Other (See Comments) GI BLEED Buspirone Other Reaction(s): angry Cephalexin Other Reaction(s): papular rash to body Codeine Other Reaction(s): nightmares Moxifloxacin Other Reaction(s): burning, skin swelling, turn red Niacin And Related Hives Remeron [Mirtazapine] Hallucinations Trazodone Other Reaction(s): iritable Varenicline Other Reaction(s): agitation Meperidine Hcl Other Reaction(s): other Penicillins Rash Current Outpatient Medications on File Prior to Visit Medication Sig Dispense Refill albuterol HFA (Ventolin HFA) 90 mcg/act inhaler Inhale 2 puffs every 6 (six) hours if needed. 2 puffs as needed Inhalation four times daily as needed for 90 days Ascorbic Acid (vitamin C) 1000 MG tablet Take 1,000 mg by mouth in the morning and 1,000 mg before bedtime. b complex vitamins capsule Take 1 capsule by mouth Daily baclofen (Lioresal) 20 MG tablet Take one half tablet in the morning, One half tablet at lunch, and 2 tablets in the evening 270 tablet 0 busPIRone (Buspar) 15 MG tablet Take 1 tablet at breakfast and 1 tablet lunch, and 2 tablets at bedtime. 360 tablet 1 calcium citrate 1040 MG tablet Take 250 mg by mouth in the morning and 250 mg before bedtime. cholecalciferol (Vitamin D-3) 125 MCG (5000 UT) tablet Take 5,000 Units by mouth in the morning. Winter dose. cholecalciferol (Vitamin D-3) 25 MCG (1000 UT) capsule Take 3,000 Units by mouth in the morning. Summer Dose. DULoxetine (Cymbalta) [address] capsule Take 2 capsules (40 mg) by mouth Daily 180 capsule 1 Flovent HFA 220 MCG/ACT inhaler Inhale 1 puff in the morning and 1 puff before bedtime. gabapentin (Neurontin) 100 MG capsule Take 1 capsule (100 mg) by mouth in the morning and 1 capsule (100 mg) in the evening and 1 capsule (100 mg) before bedtime. 270 capsule 1 glucosamine-chondroitin 750-600 MG tablet tablet Take 2 tablets by mouth 1 (one) time each day ipratropium-albuterol (Duo-Neb) 0.5-2.5 mg/3 mL nebulizer solution Take 3 mL by nebulization in the morning and 3 mL at noon and 3 mL in the evening and 3 mL before bedtime. 1080 mL 1 levothyroxine (Synthroid) 150 MCG tablet Take 1 tablet daily 90 tablet 1 mirtazapine (Remeron) 30 MG tablet Take 1 tablet (30 mg) by mouth at bedtime 90 tablet 1 Hermleigh-3 Fatty Acids (Fish Oil) 1000 MG capsule delayed-release Take by mouth oxygen (O2) gas Inhale continuously via nasal canula; to maintain pulse ox between 90-94%. pantoprazole (ProtoNix) 40 MG EC tablet Take 40 mg by mouth spironolactone (Aldactone) 100 MG tablet Take 0.5 tablets (50 mg) by mouth Daily Dose increase STRONTIUM CITRATE Take 1 tablet by mouth in the morning. traMADol (Ultram) 50 MG tablet Take 2 tablets (100 mg) by mouth in the morning and 2 tablets (100 mg) at noon and 2 tablets (100 mg) in the evening and 2 tablets (100 mg) before bedtime. 240 tablet 2 Turmeric (QC TUMERIC COMPLEX PO) Take 500 mg by mouth Daily zinc gluconate 50 MG tablet Take 50 mg by mouth See administration instructions. 1/2 tablet= 25mg Orally Once a day for 30 day(s) iron polysaccharides (Nu-Iron,Niferex) 150 MG capsule Take 150 mg by mouth every other day omeprazole (PriLOSEC) [address] capsule Take 1 capsule by mouth Daily No current facility-administered medications on file prior to visit. 1. Chronic pain syndrome Chronic problem, stable, multifactorial, with complex decision making. The patient presents for re-evaluation of their chronic pain syndrome and treatment [...] to continue their activities of daily living. I specifically note the patient has one or more high risk medications that is a chronic problem that specifically increases complexity of decision making and complicates all prescribing including prescription renewal consistent with a moderate or complex degree of decision making. A high-risk medicine is one that may cause serious health problems if not taken the correct way, or taken with another drug or food item that it may interact with. If the high-risk medication includes a controlled or reportable substance, The OARRS and NARX scores were reviewed and seem to be consistent with their prescribing pattern. The Current Opioid Misuse Measure (COMM) is reviewed and there is no evidence of aberrant behavior or abuse. Treatment regimens are increasingly complex and potentially harmful, and people with high risk medications need regular review and prescribing optimization. I also specifically discussed with her that she is on the maximum dose of the baclofen. - traMADol (Ultram) 50 MG tablet; Take 2 tablets (100 mg) by mouth in the morning and 2 tablets (100 mg) at noon and 2 tablets (100 mg) in the evening and 2 tablets (100 mg) before bedtime. Dispense: 240 tablet; Refill: 2 - baclofen (Lioresal) 20 MG tablet; Take one half tablet in the morning, One half tablet at lunch, and 2 tablets in the evening Dispense: 270 tablet; Refill: 0 - gabapentin (Neurontin) 100 MG capsule; Take 1 capsule (100 mg) by mouth in the morning and 1 capsule (100 mg) in the evening and 1 capsule (100 mg) before bedtime. Dispense: 270 capsule; Refill: 1 - DULoxetine (Cymbalta) [address] capsule; Take 2 capsules (40 mg) by mouth Daily Dispense: 180 capsule; Refill: 1 2. Fibromyalgia Chronic problem that the patient perceives a somewhat worse. Component of the chronic pain syndrome. I did offer a mild increase in her gabapentin and she declined. 3. Primary osteoarthritis, left ankle and foot Chronic problem that is stable and a component of the chronic pain syndrome. Monitor longitudinally. 4. Primary osteoarthritis, right ankle and foot Chronic problem that is stable and a component of the chronic pain syndrome. Monitor longitudinally. 5. Arthritis of both knees Chronic problem that is stable and a component of the chronic pain syndrome. Monitor longitudinally. 6. Failed back syndrome of lumbar spine Chronic problem that is stable and a component of the chronic pain syndrome. Monitor longitudinally. 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 Monitor longitudinally. 8. Sleep arousal disorder She still appears to be having 2-3 awakenings per night. Some of this may be the fluid shift from her venous insufficiency overnight. For the most part she is able to get back to sleep. - mirtazapine (Remeron) 30 MG tablet; Take 1 tablet (30 mg) by mouth at bedtime Dispense: 90 tablet; Refill: 1 9. Generalized anxiety disorder (CMS/HCC) Chronic problem, stable patient does perceive benefit from the BuSpar. In prescribing a renewal to their current medication, consideration of the following encompasses moderate decision making; the current prescriptions and supplements, the current allergies and medication intolerances, current medical conditions, and potential drug interactions. Any changes to risks, benefits, and reason for renewing their current medication due to the above were discussed. The patient was given a chance to ask questions today and all questions were answered. The patient is to contact us if any other questions arise or if any problems occur. (Utilizing the original 1994/1996 guidelines or the 2020 office/outpatient code guidelines for selecting the level of E/M service, In both sets of guidelines, prescription drug management appears in the moderate medical decision making (MDM) row. Neither the original guidelines nor the new guidelines state that a new prescription or change is needed in order to credit prescription drug management) - busPIRone (Buspar) 15 MG tablet; Take 1 tablet at breakfast and 1 tablet lunch, and 2 tablets at bedtime. Dispense: 360 tablet; Refill: 1 10. Controlled substance agreement signed See the scanned document 11. Polypharmacy Chronic problem The patient meets the criteria for polypharmacy; 5 or more prescriptions or multi-morbidity defined as 5 or more diagnoses. Polypharmacy can significantly increase the risk of preventable adverse drug events and negatively impact adherence. Consideration of diverse factors such as clinician agreement, patient perspective, and de-prescribing, as appropriate can improve patient outcomes while simplifying care. This requires longitudinal monitoring as there is at least a moderate risk of morbidity and requires at least a moderate degree of evaluation and management. 12. Duodenal stricture I did review the procedure note. Pathology was not in the chart. Upon reviewing she would have to proton pump inhibitors If she filled the prescription from the surgeon. We had discussion she has a Protonix and would like to hold off on filling the Prilosec from the other doctor. I am not sure if he was aware that she was on this. In the meantime we discussed adding famotidine on board as it works slightly different. I also discussed the last thing I want her to do before she gets into bed at night is chew and swallow 2 Tums. She does see the GI specialist next week and I have asked her to take both a bottle of the Protonix and the famotidine with her specifically so that the other physician knows exactly what she is taking. In prescribing a new medication consideration of the following encompasses moderate decision making: the current prescriptions and supplements, the current allergies and medication intolerances, the current medical conditions, and potential drug interactions. Risks, benefits, and reason for starting their medication were discussed. The patient was given a chance to ask questions today and all questions were answered. The patient is to contact us if any other questions arise or if any problems occur with the adjustment in their medication. - famotidine (Pepcid) 20 MG tablet; Take 1 tablet (20 mg) by mouth in the morning and 1 tablet (20 mg) before bedtime. Dispense: 60 tablet; Refill: 2 13. Venous stasis ulcer of other part of left lower leg limited to breakdown of skin without varicose veins (CMS/HCC) New, recurrent problem related to her venous insufficiency and venous stasis. She did have a regular Band-Aid over this in the edema of the leg was already pushing the edges of the Band-Aid. I reminded her at a minimum to using knee bandage so she had bigger surface area. The better would be to use Telfa with either a Delbert wrap or Coban wrapped keep it in place. She understands if this is significantly worsening she needs to seek medical care. documented in this encounter [facility] 03-29-2024 History of Present illness Narrative Pre-op Instructions For Out-Patient Endoscopy Surgery Medication Instructions: Please stop herbs and any supplements now (includes vitamins and minerals). Please contact your surgeon and prescribing physician for pre-op instructions for any blood thinners. If you have inhalers/aerosol treatments at home, please use them the morning of your surgery and bring the inhalers with you to the hospital. Please take the following medications the morning of your surgery with a sip of water: Inhaler and Levothyroxine Surgery Instructions: After midnight before surgery: Do not eat or drink anything, including water, mints, gum, and hard candy. You may brush your teeth without swallowing. No smoking, chewing tobacco, or street drugs. Please shower or bathe before surgery. Please do not wear any cologne, lotion, powder, jewelry, piercings, perfume, makeup, nail divehi, hair accessories, or hair spray on the day of surgery. Wear loose comfortable clothing. Leave your valuables at home but bring a payment source for any after-surgery prescriptions you plan to fill at [facility]. Bring a storage case for any glasses/contacts. An adult who is responsible for you MUST drive you home and should be with you for the first 24 hours after surgery. The Day of Surgery: Arrive at [facility] at the time directed by your surgeon and check in at the desk. If you have a living will or healthcare power of privacy attorney, please bring a copy. You will be taken to the pre-op holding area where you will be prepared for surgery. A physical assessment will be performed by a nurse practitioner or supervisor hide house. Your IV will be started and you will meet your anesthesiologist. When you go to surgery, your family will be directed to the surgical waiting room, where the doctor should speak with them after your surgery. After surgery, you will be taken to the recovery area. When you are alert and stable, you will receive instructions and be prepared for discharge. INSTRUCTIONS REVIEWED WITH MICHELINE DIAZ VERBALIZED. EGD W/BIOPSY AND POSSIBLE DILATION- 04/12/2024 documented in this encounter [facility] 01-29-2024 Hospital Discharge instructions Drew Lund RN - 01/29/2024 1:09 PM EDT EGD DISCHARGE INSTRUCTIONS Activity: Rest today. No driving, operating machinery, or making any important decisions today. May resume normal activity tomorrow. Diet: Following EGD eat slowly, chew food well, cut food into small pieces-Avoid greasy, spicy, crunchy foods X 48 hours. Call your Doctor if you have any of the following: -Passing blood rectally or vomiting blood (it may be red or black). -Persistent nausea/vomiting -Severe abdominal or chest pain not relieved with passing gas -Fever of 100 degrees or more -Redness or swelling at the IV site -Severe sore throat or neck pain documented in this encounter [facility] 12-03-2023 History of Present illness Narrative Pt transport via wheelchair with ambulance to facility. On O2, has belongings. Comprehensive Nutrition Assessment Type and Reason for Visit: Reassess Nutrition Recommendations/Plan: Continue current diet Start low kcal, high protein ONS once a day (chocolate) Monitor intakes, ONS, weight, labs, GI status. Malnutrition Assessment: Malnutrition Status: At risk for malnutrition (Comment) (11/26/23 1131) Context: Acute Illness Findings of the 6 clinical characteristics of malnutrition: Energy Intake: 75% or less of estimated energy requirements for 7 or more days Weight Loss: No significant weight loss Body Fat Loss: Unable to assess Muscle Mass Loss: Unable to assess Fluid Accumulation: Mild Extremities Gamb Cutter Strength: Not Performed Nutrition Assessment: Diet advanced to regular. Ate oatmeal, few bites toast, some eggs per pt. Report having appetite. Typical intake is 3 small meals per day; occasional snacks. Likes chocolate ONS; drinking previously during adm. LBM 5/7. Ready to DC; awaiting placement per notes Nutrition Related Findings: Meds/labs reviewed Wound Type: None Current Nutrition Intake & Therapies: Average Meal Intake: 51-75% Average Supplements Intake: None Ordered ADULT DIET; Regular Additional Calorie Sources: None Anthropometric Measures: Height: 160 cm (5' 2.99 ) [place] Body Weight (IBW): 115 lbs (52 kg) Admission Body Weight: 67.2 kg (148 lb 2.4 oz) Current Body Weight: 88 kg (194 lb 0.1 oz), 156.4 % IBW. Weight Source: Bed Scale Current BMI (kg/m2): 34.4 Usual Body Weight: 59.4 kg (130 lb 15.3 oz) (07/23/23) % Weight Change (Calculated): 13.1 Weight Adjustment For: No Adjustment BMI Categories: Obese Class 1 (BMI 30.0-34.9) Estimated Daily Nutrient Needs: Energy Requirements Based On: Kcal/kg Weight Used for Energy Requirements: Admission Energy (kcal/day): 4476-6379 kcals/day Weight Used for Protein Requirements: Admission Protein (g/day): 80 to 100 g/day Method Used for Fluid Requirements: 1 ml/kcal Fluid (ml/day): 7069-1069 mL/day or per MD Nutrition Diagnosis: Inadequate oral intake related to altered GI structure as evidenced by (recent start of clear liquid diet; need for oral supplements) Nutrition Interventions: Food and/or Nutrient Delivery: Continue Current Diet, Start Oral Nutrition Supplement Nutrition Education/Counseling: No recommendation at this time Coordination of Nutrition Care: Continue to monitor while inpatient Plan of Care discussed with: pt Goals: Previous Goal Met: Goal(s) Achieved Goals: Meet at least 75% of estimated needs, prior to discharge Nutrition Monitoring and Evaluation: Behavioral-Environmental Outcomes: None Identified Food/Nutrient Intake Outcomes: Food and Nutrient Intake, Supplement Intake Physical Signs/Symptoms Outcomes: Biochemical Data, GI Status, Fluid Status or Edema, Weight, Skin, Nutrition Focused Physical Findings, Hemodynamic Status Discharge Planning: Continue Oral Nutrition Supplement Zenobia Negrete RD Contact: [phone] Images from the original note were not included. [facility] Office: [phone] Alvin Ma DO, Erick Burns DO, Varghese Abreu DO, Randy Zelaya DO, Raz Monzon MD, Tiara Quintana MD, Lianet Murcia MD, Nicolle Cardoso MD, Ray De La Cruz MD, Kathi Ibanez MD, Diana Joseph MD, Yoselin De La Paz DO, Osvaldo Cortes MD, Patrick Mcbride MD, Jesus Ma DO, Amira King MD, Grabiel Benedict DO, Rubi Frias MD, Teresa Queen MD, Susan Collins MD, Carol Abreu MD, Ehsan Palacio MD, Elma Tejada MD, Elgin Young MD, Kelsie Oneill MD, Klaus Yeung MD, Deanna Coyle MD, Carlos Jaquez DO, Reynaldo Hameed DO, Jie Lugo MD, Bruce Pozo MD, Aida Montemayor CNP, Nereyda Patiño CNP, Vito Calabrese CNP, Karime Keane DNP, Halima Mason, OSVALDO, Carmen Orozco CNP, Kathy Flores CNP, Farnaz Lucas CNP, Maricel Burger PA-C, ARTUR RodriguezC, Olivia Stiles, OSVALDO, Ying Singleton, CUSTOMER RETENTION REPRESENTATIVE, Vikas Laird, CUSTOMER RETENTION REPRESENTATIVE, Mira Pina, CUSTOMER RETENTION REPRESENTATIVE, Briana Lim, CUSTOMER RETENTION REPRESENTATIVE, Shirley Johnson, YOUSIF, Jenny Denise, OSVALDO, Jasmine Leong, OSVALDO, Janice Perla, OSVALDO [facility] IN-PATIENT SERVICE [facility] Progress Note 12/03/2023 8:14 AM Name: Jenny Ewing Acct: [id number] Room: IP Day: 8 Admit Date: 11/25/2023 4:07 AM PCP: No primary care provider on file. Code Status: Full Code Subjective: C/C: GI bleed Interval History Status: stable. Overnight patient went into [facility] with RVR. Seen and examined bedside this morning. She was in normal sinus rhythm. Denied any symptoms. Evaluated by cardiology and started on low-dose beta-vu. Pending placement to SNF Brief History: 73 year old female with past medical history of smoking, depression, back pain presents with maroon and black stools at home as well as a fall. Patient has history of GI bleed was clipped ad EGD, reports not available. Patient has hemoglobin of 6.6. received 1 unit transfusion at [facility]. She has not been able to parts picker her medications from prior discharge from [facility]. They were sent to her pharmacy on Thursday but has not been able to get them. Underwent EGD and found to have Large duodenal ulcer 2/2 chronic NSAID use for chronic pain. X-tack stitch and hemspray powder application were performed. Patient continued to have upper GI bleed and was eval by IR underwent GDA embolization with 3 coils with IR on 11/27/2023. Patient decompensated on 11/29/2023 transferred to the ICU after becoming anemic after 2 units of blood transfusions and hypotensive. Patient reevaluated by GI plan for EGD on 12/01/2023. Review of Systems: Review of Systems Constitutional: Positive for fatigue. Negative for activity change, appetite change, chills and fever. HENT: Negative for congestion, ear pain, facial swelling and mouth sores. Respiratory: Negative for apnea and chest tightness. Cardiovascular: Negative for chest pain and leg swelling. Gastrointestinal: Negative for abdominal distention, abdominal pain, constipation and diarrhea. Genitourinary: Negative for difficulty urinating, dysuria and flank pain. Musculoskeletal: Negative for arthralgias, back pain and joint swelling. Skin: Negative for color change and wound. Neurological: Positive for weakness. Negative for dizziness, seizures, light-headedness and headaches. Psychiatric/Behavioral: Negative for agitation, behavioral problems and self-injury. Medications: Allergies: Allergies Allergen Reactions Motrin [Ibuprofen] Other (See Comments) GI BLEED Avelox [Moxifloxacin] Hives Codeine Other (See Comments) nightmares Niacin And Related Hives Current Meds: Scheduled Meds: pantoprazole 40 mg Oral BID AC sodium chloride flush 5-40 mL IntraVENous 2 times per day levothyroxine 175 mcg Oral QAM AC doxepin 10 mg Oral Nightly amoxicillin-clavulanate 1 tablet Oral 2 times per day fluticasone 1 puff Inhalation BID RT ipratropium 0.5 mg-albuterol 2.5 mg 1 Dose Inhalation TID RT Hydrocerin Topical BID sodium chloride flush 5-40 mL IntraVENous 2 times per day baclofen 10 mg Oral BID WC busPIRone 15 mg Oral BID WC busPIRone 30 mg Oral Nightly DULoxetine 40 mg Oral Daily hydrocortisone 7.5 mg Oral QAM AC hydrocortisone 5 mg Oral Lunch Continuous Infusions: sodium chloride sodium chloride PRN Meds: naloxone 0.4 mg in 10 mL sodium chloride syringe, sodium chloride flush, sodium chloride, HYDROmorphone, HYDROmorphone, labetalol OR hydrALAZINE, LORazepam, loperamide, midodrine, melatonin, potassium chloride OR potassium alternative oral replacement OR potassium chloride, magnesium sulfate, sodium chloride, ondansetron OR ondansetron, acetaminophen OR acetaminophen, fentanNYL, albuterol sulfate HFA, hypromellose, sodium chloride, traMADol Data: Past Medical History: has a past medical history of Anxiety, Arthritis, Cerebral artery occlusion with cerebral infarction (HCC), COPD (chronic obstructive pulmonary disease) ([facility]), Depression, History of blood transfusion, and Thyroid disease. Social History: reports that she has been smoking cigarettes. She has a 25.0 pack-year smoking history. She has never used smokeless tobacco. She reports that she does not currently use alcohol. She reports that she does not use drugs. Family History: History reviewed. No pertinent family history. Vitals: BP 114/89 Pulse 79 Temp 98.2 F (36.8 C) (Oral) Resp 18 Ht 1.6 m (5' 2.99 ) Wt 88 kg (194 lb 0.1 oz) SpO2 100% BMI 34.38 kg/m Temp (24hrs), Av.1 F (36.7 C), Min:97.5 F (36.4 C), Max:98.7 F (37.1 C) No results for input(s): POCGLU in the last 72 hours. I/O (24Hr): Intake/Output Summary (Last 24 hours) at 12/03/2023 0814 Last data filed at 12/02/2023 2242 Gross per 24 hour Intake -- Output 1150 ml Net -1150 ml Labs: Hematology: Recent Labs 12/01/23 01412/01/23 1021 12/01/23 1513 12/02/23 0652 12/03/23 0558 WBC 7.7 -- -- 7.2 7.6 RBC 2.36* -- -- 2.73* 3.16* HGB 7.1* < > 8.9* 8.2* 9.6* HCT 22.9* < > 27.1* 27.5* 29.4* MCV 97.0 -- -- 100.7 93.0 MCH 30.1 -- -- 30.0 30.4 MCHC 31.0 -- -- 29.8 32.7 RDW 18.8* -- -- 17.9* 17.7* PLT 201 -- -- See Reflexed IPF Result See Reflexed IPF Result MPV 10.2 -- -- -- -- < > = values in this interval not displayed. Chemistry: Recent Labs 12/01/23 01412/02/23 0652 12/03/23 0558 NA 137 137 139 K 3.8 3.4* 3.2* CL 107 101 101 CO2 23 28 31 GLUCOSE 79 85 83 BUN 8 4* 2* CREATININE 0.3* 0.4* 0.4* MG -- 1.7 -- ANIONGAP 7* 8* 7* LABGLOM >90 >90 >90 CALCIUM 6.8* 7.0* 7.6* No results for input(s): PROT , LABALBU , LABA1C , S6VQKER , C6EFVAU , FT4 , TSH , AST , ALT , LDH , GGT , ALKPHOS , BILITOT , BILIDIR , AMMONIA , AMYLASE , LIPASE , LACTATE , CHOL , HDL , CHOLHDLRATIO , TRIG , VLDL , PNN67JH , PHENYTOIN , PHENYF , URICACID , POCGLU in the last 72 hours. Invalid input(s): LABGGT , LDLCHOLESTEROL ABG:No results found for: POCPH , PHART , PH , POCPCO2 , XFV7JUT , PCO2 , POCPO2 , PO2ART , PO2 , POCHCO3 , QPK7FYS , HCO3 , NBEA , PBEA , BEART , BE , THGBART , THB , FRW0XGW , FZOR6ZRA , X6NEGTEY , O2SAT , FIO2 No results found for: SPECIAL Lab Results Component Value Date/Time CULTURE NO GROWTH 5 DAYS 11/25/2023 09:58 AM CULTURE NO GROWTH 5 DAYS 11/25/2023 09:58 AM Radiology: CTA ABDOMEN PELVIS W WO CONTRAST Result Date: 11/29/2023 1. No acute findings. Embolization coils in the right upper quadrant without appreciable arterial bleeding/active extravasation. No hyperdense fluid collections visualized in bowel loops on noncontrast exam. Interval improved thickening of the stomach and proximal duodenum, may reflect resolved hemorrhage or improved gastritis. 2. Redemonstration of diffuse subcutaneous soft tissue edema. 3. Redemonstration of pleural effusions in the lung bases. 4. Unchanged mild abdominal ascites. 5. Atherosclerotic vascular disease of the aorta and its branches without evidence of flow-limiting stenosis. CT SINUS WO CONTRAST Result Date: 11/29/2023 Chronic sinusitis involving the left maxillary sinus. Potential remote posttraumatic change of the left inferior orbital wall and correlation is needed. IR EMBOLIZATION HEMORRHAGE Result Date: 11/28/2023 Contrast extravasation via truncated duodenal side-branch GDA with successful coil embolization, as above. XR CHEST PORTABLE Result Date: 11/27/2023 Right mid and lower lung consolidation consistent with pneumonia. Trace left basilar effusion. XR CHEST PORTABLE Result Date: 11/25/2023 Layering right greater than left pleural effusions and bibasilar atelectasis. CTA ABDOMEN PELVIS W WO CONTRAST Result Date: 11/25/2023 1. No evidence of mesenteric ischemia or contrast extravasation. 2. Small bilateral pleural effusions greater on the right with right basilar atelectasis. 3. Small amount of free fluid in the pelvis and surrounding the liver. 4. Mild left hydronephrosis. 5. Diffuse wall thickening of the stomach possibly reflecting gastritis. Consider direct visualization. 6. Small fat containing umbilical hernia. 7. Diffuse anasarca. Physical Examination: Physical Exam Constitutional: Appearance: She is not ill-appearing or diaphoretic. HENT: Head: Normocephalic. Right Ear: External ear normal. Left Ear: External ear normal. Nose: No congestion. Mouth/Throat: Mouth: Mucous membranes are dry. Eyes: Pupils: Pupils are equal, round, and reactive to light. Cardiovascular: Rate and Rhythm: Normal rate and regular rhythm. Heart sounds: Murmur heard. Abdominal: General: There is no distension. Palpations: Abdomen is soft. Tenderness: There is no abdominal tenderness. There is no guarding. Musculoskeletal: Cervical back: Neck supple. Right lower leg: No edema. Left lower leg: No edema. Skin: General: Skin is dry. Coloration: Skin is not pale. Neurological: Mental Status: She is alert and oriented to person, place, and time. Motor: Weakness present. Psychiatric: Mood and Affect: Mood normal. Behavior: Behavior normal. Assessment: Hospital Problems Last Modified POA * (Principal) GI bleed 11/25/2023 Yes Acute anemia 11/25/2023 Yes Chronic pain syndrome 11/25/2023 Yes Chronic respiratory failure with hypoxia (HCC) 11/25/2023 Yes Dependence on supplemental oxygen 11/25/2023 Yes Duodenal ulcer 11/25/2023 Yes Gastroesophageal reflux disease 11/25/2023 Yes Generalized anxiety disorder 11/25/2023 Yes Peripheral venous insufficiency 11/25/2023 Yes Sleep dysfunction with arousal disturbance 11/25/2023 Yes Tobacco user 11/25/2023 Yes Plan: New onset A-fib with RVR [id number] 5-currently in normal sinus rhythm. Evaluated by cardiology and started on low-dose beta-vu. Not candidate for anticoagulation due to risk of bleeding. Upper GI bleed with known duodenal ulcer. S/p EGD which showed large duodenal ulcer with no active bleeding, gastritis and Schatzki's ring. Hemoglobin stable. No evidence of GI bleed. Continued on PPI. Repeat EGD in 4 to 6 weeks. Sinusitis-continue Augmentin Hypotension adrenal insufficiency. Cortef, midodrine as needed Fibromyalgia- Cymbalta Anxiety- BuSpar Hypothyroidism- Synthroid 175 mcg. COPD- continue Flovent and DuoNeb. Generalized weakness-encouraged to work with PT OT. Discharge planning-plan to discharge to SNF.. Carol Abreu MD 12/03/2023 8:14 AM [facility] Gastroenterology Progress Note Jenny Ewing is a 73 y.o. female patient. Hospitalization Day:7 Chief consult reason: Black colored stools Subjective: Pt seen and examined. Repeat endoscopy yesterday shows large duodenal ulcer located at the medial aspect of the bulb and extending little bit to the posterior wall with small nipple in the base of the ulcer which could be small vessels-treated with epi. Gastritis noted No rectal bleeding overnight, globin stable without additional transfusion, patient tolerating diet 12/01/2023 EGD per Findings: Retropharyngeal area was grossly normal appearing Large duodenal ulcer located at the medial aspect of the bulb and extends little bit to the posterior wall Although there is no visible vessel, but the crater is big and there is small nipple in the base of the ulcer which could be small vessels, nevertheless there is no active bleeding at this time for which I went ahead and just injected epinephrine 1-10,000, around the ulcer, we used 4 cc I do see the x tack from the previous procedure please see the image Gastritis Schatzki's ring The scope was removed and the patient tolerated the procedure well. Recommendations/Plan: PPI H and H monitoring Repeat egd in 4-6 weeks LS: BP (!) 97/53 Pulse 79 Temp 98.7 F (37.1 C) (Oral) Resp 18 Ht 1.6 m (5' 2.99 ) Wt 88 kg (194 lb 0.1 oz) SpO2 93% BMI 34.38 kg/m TEMPERATURE: Current - Temp: 98.7 F (37.1 C); Max - Temp Av.4 F (36.9 C) Min: 97.8 F (36.6 C) Max: 98.7 F (37.1 C) Physical Assessment: General appearance: alert, cooperative and no distress Mental Status: oriented to person, place and time and normal affect Lungs: clear to auscultation bilaterally, normal effort Heart: regular rate and rhythm, no murmur Abdomen: soft, nontender, nondistended, normal bowel sounds, no masses, hepatomegaly, splenomegaly Extremities: no edema, redness, tenderness in the calves Skin: no gross lesions, rashes, induration Data Review: Labs and Imaging: CBC: Recent Labs 11/30/23 0204 11/30/23 0730 11/30/23 2013 12/01/23 0145 12/01/23 1021 12/01/23 1513 12/02/23 0652 WBC 8.7 -- -- 7.7 -- -- 7.2 HGB 6.2* < > 7.9* 7.1* 8.8* 8.9* 8.2* MCV 98.0 -- -- 97.0 -- -- 100.7 RDW 17.1* -- -- 18.8* -- -- 17.9* PLT 171 -- -- 201 -- -- See Reflexed IPF Result < > = values in this interval not displayed. ANEMIA STUDIES: No results for input(s): TIBC , FERRITIN , UDIGWJRT45 , FOLATE , OCCULTBLD in the last 72 hours. Invalid input(s): LABIRON BMP: Recent Labs 11/30/23 0204 12/01/23 0145 12/02/23 0652 NA 138 137 137 K 4.4 3.8 3.4* CL 108* 107 101 CO2 26 23 28 BUN 12 8 4* CREATININE 0.4* 0.3* 0.4* GLUCOSE 83 79 85 CALCIUM 6.6* 6.8* 7.0* MG -- -- 1.7 LFTS: No results for input(s): ALKPHOS , ALT , AST , BILITOT , BILIDIR , LABALBU in the last 72 hours. Amylase/Lipase and Ammonia: No results for input(s): AMYLASE , LIPASE , AMMONIA in the last 72 hours. Acute Hepatitis Panel: No results found for: HEPBSAG , HEPCAB , HEPBIGM , HEPAIGM HCV Genotype: No components found for: HEPATITISCGENOTYPE HCV Quantitative: No results found for: HCVQNT LIVER WORK UP: AFP No results found for: AFP Alpha 1 antitrypsin No results found for: A1A CYNTHIA No results found for: CYNTHIA AMA No results found for: MITOAB ASMA No results found for: SMOOTHMUSCAB PT/INR No results for input(s): PROTIME , INR in the last 72 hours. Cancer Markers: CEA: No results for input(s): CEA in the last 72 hours. Ca 125: No results for input(s): CA125 in the last 72 hours. Ca 19-9: Invalid input(s): CA19-9 AFP: No results for input(s): AFP in the last 72 hours. Lactic acid:Invalid input(s): LACTIC ACID Radiology Review: No results found. Principal Problem: GI bleed Active Problems: Acute anemia Chronic pain syndrome Chronic respiratory failure with hypoxia (HCC) Dependence on supplemental oxygen Duodenal ulcer Gastroesophageal reflux disease Generalized anxiety disorder Peripheral venous insufficiency Sleep dysfunction with arousal disturbance Tobacco user Resolved Problems: GIB (gastrointestinal bleeding) GI Impression: Large duodenal ulcer secondary to NSAID overuse for chronic pain management s/p X tack stitch and Hemospray powder application done by Dr. Ugarte on 11/25/202311/27-rebleeding, hypotension, followed by negative CTA 11/28-ongoing melena overnight, transfused, Hgb 8.3 g/dL 11/30-repeat endoscopy again shows large duodenal ulcer with small nipple at base-treated with epi. No rectal bleeding overnight, hemoglobin stable, tolerating diet Plan and Recommendations: Continue with soft diet for 2 weeks then may advance to regular DC Protonix drip. Start Protonix 40 mg p.o. twice daily 30 minutes before meals Monitor for active GI bleeding Trend Hgb. Transfuse PRN Avoid NSAIDs Patient will need repeat endoscopy in 6 to 8 weeks Patient will need to follow-up in the office with Dr. Molina in 2 weeks for ongoing care No further recommendations GI will sign off This plan was formulated in collaboration with Dr. Phill SOLORZANO Thank you for allowing me to participate in the care of your patient. Please feel free to contact me with any questions or concerns. [facility] Gastroenterology PATY Quijano CNP [phone] 12/02/2023 3:14 PM Estimated time of 20 mins reviewing chart, assessing patient and formulating plan of care This note was created with the assistance of a speech-recognition program. Although the intention is to generate a document that actually reflects the content of the visit, no guarantees can be provided that every mistake has been identified and corrected by editing. Electronically signed by PATY Quijano CNP Attending Physician Statement I have discussed the care of Jenny Ewing and I have examined the patient myselft and taken ros and hpi , including pertinent history and exam findings, with the author of this note . I have reviewed the jiménez elements of all parts of the encounter with the nurse practitioner/resident. I agree with the assessment, plan and orders as documented by the above health care provider No sign of active bleeding Hemoglobin stable at 8.2 Advance diet Continue PPI Images from the original note were not included. [facility] Office: [phone] Alvin Ma DO, Erick Burns DO, Varghese Abreu DO, Randy Zelaya DO, Raz Monzon MD, Tiara Quintana MD, Lianet Murcia MD, Nicolle Cardoso MD, Ray De La Cruz MD, Kathi Ibanez MD, Diana Joseph MD, Yoselin De La Paz DO, Osvaldo Cortes MD, Patrick Mcbride MD, Jesus Ma DO, Amira King MD, Grabiel Benedict DO, Rubi Frias MD, Teresa Queen MD, Susan Collins MD, Carol Abreu MD, Ehsan Palacio MD, Elma Tejada MD, Elgin Young MD, Kelsie Oneill MD, Klaus Yeung MD, Deanna Coyle MD, Carlos Jaquez DO, Reynaldo Hameed DO, Jie Lugo MD, Bruce Pozo MD, Aida Montemayor, CUSTOMER RETENTION REPRESENTATIVE, Nereyda Patiño, CUSTOMER RETENTION REPRESENTATIVE, Vito Calabrese, CUSTOMER RETENTION REPRESENTATIVE, Karime Keane, [facility], Halima Mason, CUSTOMER RETENTION REPRESENTATIVE, Carmen Orozco, CUSTOMER RETENTION REPRESENTATIVE, Kathy Flores, CUSTOMER RETENTION REPRESENTATIVE, Farnaz Lucas, CUSTOMER RETENTION REPRESENTATIVE, Maricel Burger, PAGarrettC, Alicia Veliz, PAGarrettC, Olivia Stiles, CUSTOMER RETENTION REPRESENTATIVE, Ying Singleton, CUSTOMER RETENTION REPRESENTATIVE, Vikas Laird, CUSTOMER RETENTION REPRESENTATIVE, Mira Pina, CUSTOMER RETENTION REPRESENTATIVE, Briana Lim, [facility], Shirley Johnson, [facility], Jenny Denise, CUSTOMER RETENTION REPRESENTATIVE, Jasmine Leong, CUSTOMER RETENTION REPRESENTATIVE, Janice Perla, [facility] IN-PATIENT SERVICE [facility] Progress Note 12/02/2023 9:48 AM Name: Jenny Ewing Acct: [id number] Room: IP Day: 7 Admit Date: 11/25/2023 4:07 AM PCP: No primary care provider on file. Code Status: Full Code Subjective: C/C: GI bleed Interval History Status: stable. Patient seen examined at bedside. Denies any current complaints today. Hemoglobin stable. Medically stable for discharge. Patient initially refused SNF but now want to discuss with her daughter about going to SNF versus home with home care. Brief History: 73 year old female with past medical history of smoking, depression, back pain presents with maroon and black stools at home as well as a fall. Patient has history of GI bleed was clipped ad EGD, reports not available. Patient has hemoglobin of 6.6. received 1 unit transfusion at [facility]. She has not been able to parts picker her medications from prior discharge from [facility]. They were sent to her pharmacy on Thursday but has not been able to get them. Underwent EGD and found to have Large duodenal ulcer 2/2 chronic NSAID use for chronic pain. X-tack stitch and hemspray powder application were performed. Patient continued to have upper GI bleed and was eval by IR underwent GDA embolization with 3 coils with IR on 11/27/2023. Patient decompensated on 11/29/2023 transferred to the ICU after becoming anemic after 2 units of blood transfusions and hypotensive. Patient reevaluated by GI plan for EGD on 12/01/2023. Review of Systems: Review of Systems Constitutional: Positive for fatigue. Negative for activity change, appetite change, chills and fever. HENT: Negative for congestion, ear pain, facial swelling and mouth sores. Eyes: Negative for discharge and itching. Respiratory: Negative for apnea and chest tightness. Cardiovascular: Negative for chest pain and leg swelling. Gastrointestinal: Negative for abdominal distention, abdominal pain, constipation and diarrhea. Endocrine: Negative for cold intolerance, polyphagia and polyuria. Genitourinary: Negative for difficulty urinating, dysuria and flank pain. Musculoskeletal: Negative for arthralgias, back pain and joint swelling. Skin: Negative for color change and wound. Neurological: Positive for weakness. Negative for dizziness, seizures, light-headedness and headaches. Psychiatric/Behavioral: Negative for agitation, behavioral problems and self-injury. Medications: Allergies: Allergies Allergen Reactions Motrin [Ibuprofen] Other (See Comments) GI BLEED Avelox [Moxifloxacin] Hives Codeine Other (See Comments) nightmares Niacin And Related Hives Current Meds: Scheduled Meds: sodium chloride flush 5-40 mL IntraVENous 2 times per day pantoprazole 40 mg Oral QAM AC levothyroxine 175 mcg Oral QAM AC doxepin 10 mg Oral Nightly amoxicillin-clavulanate 1 tablet Oral 2 times per day fluticasone 1 puff Inhalation BID RT ipratropium 0.5 mg-albuterol 2.5 mg 1 Dose Inhalation TID RT Hydrocerin Topical BID sodium chloride flush 5-40 mL IntraVENous 2 times per day baclofen 10 mg Oral BID WC busPIRone 15 mg Oral BID WC busPIRone 30 mg Oral Nightly DULoxetine 40 mg Oral Daily hydrocortisone 7.5 mg Oral QAM AC hydrocortisone 5 mg Oral Lunch Continuous Infusions: sodium chloride sodium chloride PRN Meds: naloxone 0.4 mg in 10 mL sodium chloride syringe, sodium chloride flush, sodium chloride, HYDROmorphone, HYDROmorphone, ondansetron, labetalol OR hydrALAZINE, LORazepam, loperamide, midodrine, melatonin, potassium chloride OR potassium alternative oral replacement OR potassium chloride, magnesium sulfate, sodium chloride, ondansetron OR ondansetron, acetaminophen OR acetaminophen, fentanNYL, albuterol sulfate HFA, hypromellose, sodium chloride, traMADol Data: Past Medical History: has a past medical history of Anxiety, Arthritis, Cerebral artery occlusion with cerebral infarction (HCC), COPD (chronic obstructive pulmonary disease) (HCC), Depression, History of blood transfusion, and Thyroid disease. Social History: reports that she has been smoking cigarettes. She has a 25.0 pack-year smoking history. She has never used smokeless tobacco. She reports that she does not currently use alcohol. She reports that she does not use drugs. Family History: History reviewed. No pertinent family history. Vitals: BP 125/73 Pulse 74 Temp 98.6 F (37 C) (Oral) Resp 18 Ht 1.6 m (5' 2.99 ) Wt 88 kg (194 lb 0.1 oz) SpO2 100% BMI 34.38 kg/m Temp (24hrs), Av.3 F (36.8 C), Min:97.8 F (36.6 C), Max:98.6 F (37 C) Recent Labs 11/30/23 0758 POCGLU 79 I/O (24Hr): Intake/Output Summary (Last 24 hours) at 12/02/2023 0948 Last data filed at 12/01/2023 2347 Gross per 24 hour Intake -- Output 1400 ml Net -1400 ml Labs: Hematology: Recent Labs 11/30/23 0204 11/30/23 0730 12/01/23 0145 12/01/23 1021 12/01/23 1513 12/02/23 0652 WBC 8.7 -- 7.7 -- -- 7.2 RBC 2.02* -- 2.36* -- -- 2.73* HGB 6.2* < > 7.1* 8.8* 8.9* 8.2* HCT 19.8* < > 22.9* 28.7* 27.1* 27.5* MCV 98.0 -- 97.0 -- -- 100.7 MCH 30.7 -- 30.1 -- -- 30.0 MCHC 31.3 -- 31.0 -- -- 29.8 RDW 17.1* -- 18.8* -- -- 17.9* PLT 171 -- 201 -- -- See Reflexed IPF Result MPV 10.3 -- 10.2 -- -- -- < > = values in this interval not displayed. Chemistry: Recent Labs 11/30/23 0204 12/01/23 0145 12/02/23 0652 NA 138 137 137 K 4.4 3.8 3.4* CL 108* 107 101 CO2 26 23 28 GLUCOSE 83 79 85 BUN 12 8 4* CREATININE 0.4* 0.3* 0.4* MG -- -- 1.7 ANIONGAP 4* 7* 8* LABGLOM >90 >90 >90 CALCIUM 6.6* 6.8* 7.0* CAION 1.07* -- -- LACTACIDWB 0.6* -- -- Recent Labs 11/29/23201511/30/23 0758 TSH 9.13* -- POCGLU -- 79 ABG:No results found for: POCPH , PHART , PH , POCPCO2 , BTL3PGV , PCO2 , POCPO2 , PO2ART , PO2 , POCHCO3 , YRW0JET , HCO3 , NBEA , PBEA , BEART , BE , THGBART , THB , BWI7MCN , ZJTO4YLG , O8MGDTHY , O2SAT , FIO2 No results found for: SPECIAL Lab Results Component Value Date/Time CULTURE NO GROWTH 5 DAYS 11/25/2023 09:58 AM CULTURE NO GROWTH 5 DAYS 11/25/2023 09:58 AM Radiology: CTA ABDOMEN PELVIS W WO CONTRAST Result Date: 11/29/2023 1. No acute findings. Embolization coils in the right upper quadrant without appreciable arterial bleeding/active extravasation. No hyperdense fluid collections visualized in bowel loops on noncontrast exam. Interval improved thickening of the stomach and proximal duodenum, may reflect resolved hemorrhage or improved gastritis. 2. Redemonstration of diffuse subcutaneous soft tissue edema. 3. Redemonstration of pleural effusions in the lung bases. 4. Unchanged mild abdominal ascites. 5. Atherosclerotic vascular disease of the aorta and its branches without evidence of flow-limiting stenosis. CT SINUS WO CONTRAST Result Date: 11/29/2023 Chronic sinusitis involving the left maxillary sinus. Potential remote posttraumatic change of the left inferior orbital wall and correlation is needed. IR EMBOLIZATION HEMORRHAGE Result Date: 11/28/2023 Contrast extravasation via truncated duodenal side-branch GDA with successful coil embolization, as above. XR CHEST PORTABLE Result Date: 11/27/2023 Right mid and lower lung consolidation consistent with pneumonia. Trace left basilar effusion. XR CHEST PORTABLE Result Date: 11/25/2023 Layering right greater than left pleural effusions and bibasilar atelectasis. CTA ABDOMEN PELVIS W WO CONTRAST Result Date: 11/25/2023 1. No evidence of mesenteric ischemia or contrast extravasation. 2. Small bilateral pleural effusions greater on the right with right basilar atelectasis. 3. Small amount of free fluid in the pelvis and surrounding the liver. 4. Mild left hydronephrosis. 5. Diffuse wall thickening of the stomach possibly reflecting gastritis. Consider direct visualization. 6. Small fat containing umbilical hernia. 7. Diffuse anasarca. Physical Examination: Physical Exam Constitutional: Appearance: She is not ill-appearing or diaphoretic. HENT: Head: Normocephalic. Right Ear: External ear normal. Left Ear: External ear normal. Nose: No congestion. Mouth/Throat: Mouth: Mucous membranes are dry. Eyes: Pupils: Pupils are equal, round, and reactive to light. Cardiovascular: Rate and Rhythm: Normal rate and regular rhythm. Heart sounds: Murmur heard. Abdominal: General: There is no distension. Palpations: Abdomen is soft. Tenderness: There is no abdominal tenderness. There is no guarding. Musculoskeletal: Cervical back: Neck supple. Right lower leg: No edema. Left lower leg: No edema. Skin: General: Skin is dry. Coloration: Skin is not pale. Neurological: Mental Status: She is alert and oriented to person, place, and time. Motor: Weakness present. Psychiatric: Mood and Affect: Mood normal. Behavior: Behavior normal. Assessment: Hospital Problems Last Modified POA * (Principal) GI bleed 11/25/2023 Yes Acute anemia 11/25/2023 Yes Chronic pain syndrome 11/25/2023 Yes Chronic respiratory failure with hypoxia (HCC) 11/25/2023 Yes Dependence on supplemental oxygen 11/25/2023 Yes Duodenal ulcer 11/25/2023 Yes Gastroesophageal reflux disease 11/25/2023 Yes Generalized anxiety disorder 11/25/2023 Yes Peripheral venous insufficiency 11/25/2023 Yes Sleep dysfunction with arousal disturbance 11/25/2023 Yes Tobacco user 11/25/2023 Yes Plan: Upper GI bleed with known duodenal ulcer. S/p EGD which showed large duodenal ulcer with no active bleeding, gastritis and Schatzki's ring. Hemoglobin stable. No evidence of GI bleed. Continued on PPI. Repeat EGD in 4 to 6 weeks. Sinusitis-continue Augmentin Hypotension adrenal insufficiency. Cortef, midodrine as needed Fibromyalgia- Cymbalta Anxiety- BuSpar Hypothyroidism- Synthroid 175 mcg. COPD- continue Flovent and DuoNeb. Generalized weakness-encouraged to work with PT OT. Discharge planning-medically stable for discharge. Discharge orders placed. Patient initially refused SNF but normal to discuss SNF versus home with home care with daughter. channel manager to follow. Carol Abreu MD 12/02/2023 9:48 AM Occupational Therapy Facility/Department: [facility] Occupational Therapy Initial Assessment Name: Jenny Ewing : 1950 Date of Service: 12/02/2023 Per Medical Chart: Jenny Ewing is a 73 year old female with past medical history of smoking, depression, back pain presents with maroon and black stools at home as well as a fall. Patient has history of GI bleed was clipped ad EGD, reports not available. Patient has hemoglobin of 6.6. received 1 unit transfusion at [facility]. She has not been able to parts picker her medications from prior discharge from [facility]. They were sent to her pharmacy on Thursday but has not been able to get them. Pt had EGD this date (12/01/23) Upper GI endoscopy with Biopsy Discharge Recommendations: Patient would benefit from continued therapy after discharge OT Equipment Recommendations Equipment Needed: Yes Mobility Devices: Walker;ADL Assistive Devices Walker: Rolling ADL Assistive Devices: Shower Chair with back Further therapy recommended at discharge.The patient should be able to tolerate at least 3 hours of therapy per day over 5 days or 15 hours over 7 days. This patient may benefit from a Physical Medicine and Rehab consult. Patient Diagnosis(es): There were no encounter diagnoses. Past Medical History: has a past medical history of Anxiety, Arthritis, Cerebral artery occlusion with cerebral infarction (HCC), COPD (chronic obstructive pulmonary disease) (HCC), Depression, History of blood transfusion, and Thyroid disease. Past Surgical History: has a past surgical history that includes Colonoscopy; Hysterectomy; Cholecystectomy; Endoscopy, colon, diagnostic; eye surgery; fracture surgery; skin biopsy; section; Esophagogastroduodenoscopy (N/A, 11/25/2023); Upper gastrointestinal endoscopy (N/A, 11/25/2023); IR EMBOLIZATION HEMORRHAGE (11/27/2023); and Esophagogastroduodenoscopy (12/01/2023). Assessment Performance deficits / Impairments: Decreased functional mobility ;Decreased ADL status;Decreased safe awareness;Decreased strength;Decreased endurance;Decreased balance;Decreased high-level IADLs Assessment: Pt would continue to benefit from OT services to address deficits listed above and improve overall functional performance prior to discharge. Prognosis: Good Decision Making: Medium Complexity REQUIRES OT FOLLOW-UP: Yes Activity Tolerance Activity Tolerance: Patient Tolerated treatment well;Patient limited by fatigue Plan Occupational Therapy Plan Times Per Week: 3-4x/wk Current Treatment Recommendations: Balance training, Functional mobility training, Endurance training, Pain management, Safety education & training, Patient/Caregiver education & training, Equipment evaluation, education, & procurement, Self-Care / ADL, Home management training Restrictions Restrictions/Precautions Restrictions/Precautions: Fall Risk, Up as Tolerated Required Braces or Orthoses?: No Subjective General Patient assessed for rehabilitation services?: Yes Family / Caregiver Present: No General Comment Comments: RN ok'd OT eval this date. Pt pleasant, cooperative, and agreeable to therapy throughout entire session. Pt reporting no pain during session this date; engaging in functional activities and repositioned Social/Functional History Social/Functional History Lives With: Alone (14 yr old granddaughter was living with her, but is going to live with her mom) Type of Home: Apartment Home Layout: One level Home Access: Level entry (first floor apartment) Bathroom Shower/Tub: Tub/Shower unit Bathroom Toilet: Standard Bathroom Equipment: Grab bars in shower Home Equipment: Cane, Oxygen (use of cane at baseline. 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 Leisure & Hobbies: embordery and cross words Additional Comments: pt states over the past several months she feels she's been declining/having more difficulty getting around Objective SpO2: 100 % O2 Device: Nasal cannula (2.5L O2 throughout entire session) Safety Devices Type of Devices: Call light within reach;Chair alarm in place;Gait belt;Heels elevated for pressure relief;Patient at risk for falls;Left in chair;Nurse notified Restraints Restraints Initially in Place: No Bed Mobility Training Bed Mobility Training: No (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 upon tag writer entry and retired session seated in recliner) Balance Sitting: Intact (static/dynamic sitting during functional activities with SUP. No seated balance deficits noted this date.) Standing: High guard (static/dynamic standing during functional activities with CGA and use of RW. Pt standing for total of ~6 mins with a seated rest break d/t decreased endurance and SOB) Transfer Training Transfer Training: Yes Overall Level of Assistance: Contact-guard assistance (with RW) Interventions: Verbal cues;Safety awareness training (vc's for proper hand placement during transfers) Sit to Stand: Contact-guard assistance Stand to Sit: Contact-guard assistance Toilet Transfer: Contact-guard assistance (with RW and use of bilateral grab bars) Gait Gait Training: Yes Overall Level of Assistance: Contact-guard assistance;Adaptive equipment;Additional time (Pt egaging in functional mobility household distances with CGA and use of RW. Pt requiring a seated rest break d/t decreased endurance and SOB) AROM: Within functional limits Strength: Generally decreased, functional (BUE's grossly 4/5) Coordination: Within functional limits Tone: Normal Sensation: Intact (Pt reporting no acute/chronic numbness or tingling this date) ADL Feeding: Independent;Setup Feeding Skilled Clinical Factors: PT sat in relciner eating breakfast independently with setup. Grooming: Stand by assistance;Setup;Based on clinical judgement UE Bathing: Stand by assistance;Setup;Based on clinical judgement LE Bathing: Contact guard assistance;Setup;Based on clinical judgement UE Dressing: Stand by assistance;Setup;Based on clinical judgement LE Dressing: Contact guard assistance;Increased time to complete LE Dressing Skilled Clinical Factors: Pt sat EOB to doff/celso B socks with CGA utilizing figure-4 method. Pt requiring increased time and effort to complete. Toileting: Contact guard assistance;Increased time to complete Toileting Skilled Clinical Factors: Pt engaging in toileting on bedside commode with CGA for transfer, pericare, and brief management with increased time and effort to complete. ADL scores based on skilled observation and clinical reasoning, unless otherwise noted. Vision Vision: Impaired Vision Exceptions: Wears glasses at all times Hearing Hearing: Within functional limits Cognition Overall Cognitive Status: Exceptions Arousal/Alertness: Appropriate responses to stimuli Following Commands: Follows all commands without difficulty Attention Span: Attends with cues to redirect Safety Judgement: Decreased awareness of need for assistance;Decreased awareness of need for safety Problem Solving: Assistance required to correct errors made;Assistance required to identify errors made;Decreased awareness of errors Insights: Decreased awareness of deficits Initiation: Requires cues for some Sequencing: Requires cues for some Orientation Overall Orientation Status: Within Functional Limits Orientation Level: Oriented X4 Education Given To: Patient Education Provided: Role of Therapy;Plan of Care;ADL Adaptive Strategies;Transfer Training;Energy Conservation Education Provided Comments: Pt educated on OT role, POC, figure-4 method, proper hand placement during transfers, walker management, EC/WS techniques, and pursed lip breathing with good return Education Method: Demonstration;Verbal Barriers to Learning: None Education Outcome: Verbalized understanding;Demonstrated understanding Hand Dominance Hand Dominance: Right AM-PAC - ADL AM-PAC Daily Activity - Inpatient How much help is needed for putting on and taking off regular lower body clothing?: A Little How much help is needed for bathing (which includes washing, rinsing, drying)?: A Little How much help is needed for toileting (which includes using toilet, bedpan, or urinal)?: A Little How much help is needed for putting on and taking off regular upper body clothing?: A Little How much help is needed for taking care of personal grooming?: A Little How much help for eating meals?: None AM-PAC Inpatient Daily Activity Raw Score: 19 AM-PAC Inpatient ADL T-Scale Score : 40.22 ADL Inpatient CMS 0-100% Score: 42.8 ADL Inpatient CMS G-Code Modifier : CK Goals Short Term Goals Time Frame for Short Term Goals: By discharge, pt will: Short Term Goal 1: demo UB ADLs Indpendently. Short Term Goal 2: demo LB ADLs with SUP, adaptive techniques PRN. Short Term Goal 3: demo functional transfers/mobility with SUP, LRD PRN for engagement in ADLs. Short Term Goal 4: demo dynamic standing during functional activities for 12+ mins with SUP, LRD PRN. Short Term Goal 5: demo use of 2 EC/WS tehnqiues throughout entire session independently with no vc's. Therapy Time Individual Concurrent Group Co-treatment Time In 0845 Time Out 0919 Minutes 34 Timed Code Treatment Minutes: 25 Minutes Alicia Farmer OT Physical Therapy Facility/Department: [facility] Physical Therapy Initial Assessment Name: Jenny Ewing : 1950 Date of Service: 12/01/2023 Jenny Ewing is a 73 y.o.female who presents with GI bleed. 73 year old female with past medical history of smoking, depression, back pain presents with maroon and black stools at home as well as a fall. Patient has history of GI bleed was clipped ad EGD, reports not available. Patient has hemoglobin of 6.6. received 1 unit transfusion at [facility]. She has not been able to parts picker her medications from prior discharge from [facility]. They were sent to her pharmacy on Thursday but has not been able to get them. Pt had EGD this date (12/01/23) Upper GI endoscopy with Biopsy; per EGD report: Large duodenal ulcer located at the medial aspect of the bulb and extends little bit to the posterior wall Although there is no visible vessel, but the crater is big and there is small nipple in the base of the ulcer which could be small vessels, nevertheless there is no active bleeding at this time for which I went ahead and just injected epinephrine 1-10,000, around the ulcer, we used 4 cc I do see the x tack from the previous procedure please see the image Discharge Recommendations: Further therapy recommended at discharge. PT Equipment Recommendations Equipment Needed: Yes Mobility Devices: Walker Walker: Rolling Patient Diagnosis(es): There were no encounter diagnoses. Past Medical History: has a past medical history of Anxiety, Arthritis, Cerebral artery occlusion with cerebral infarction (HCC), COPD (chronic obstructive pulmonary disease) (HCC), Depression, History of blood transfusion, and Thyroid disease. Past Surgical History: has a past surgical history that includes Colonoscopy; Hysterectomy; Cholecystectomy; Endoscopy, colon, diagnostic; eye surgery; fracture surgery; skin biopsy; section; Esophagogastroduodenoscopy (N/A, 11/25/2023); Upper gastrointestinal endoscopy (N/A, 11/25/2023); IR EMBOLIZATION HEMORRHAGE (11/27/2023); and Esophagogastroduodenoscopy (12/01/2023). Assessment Pt cooperative, motivated but c/o edema x 4; pt is against going to SNF d/t her mom having a bad experience in one, but after ambulating with PT and having 2 episodes LOB and unsteady on her feet, reluctantly agreeable to consider short rehab stay; they can't keep me there against my will? Reassurance given and PT spoke with DC senior production planner and told pt's concerns. Bed mobility slow and with difficulty/SBA; sit to stand CG, gait rwalker 50' min A+1 with 2 episodes LOB requiring min A from PT to prevent falling. Pt's granddaughter will no longer be living with her, pt concerned about going home and falling. Recommend continued therapies to improve pt's balance/endurance, functional independence and safety prior to her returning home alone. Body Structures, Functions, Activity Limitations Requiring Skilled Therapeutic Intervention: Decreased functional mobility ;Decreased tolerance to work activity;Decreased strength;Decreased safe awareness;Decreased endurance;Decreased balance;Decreased posture Therapy Prognosis: Good Decision Making: Medium Complexity Requires PT Follow-Up: Yes Activity Tolerance Activity Tolerance: Patient limited by fatigue;Patient limited by endurance Activity Tolerance Comments: pt c/o SOB, although O2 sats 90% and higher throughout PT session Plan Physical Therapy Plan General Plan: (5-6 visits weekly) Current Treatment Recommendations: Strengthening, ROM, Balance training, Functional mobility training, Transfer training, Endurance training, Gait training, Home exercise program, Safety education & training, Patient/Caregiver education & training, Equipment evaluation, education, & procurement, Positioning, Therapeutic activities Safety Devices Type of Devices: Call light within reach, Chair alarm in place, Gait belt, Heels elevated for pressure relief, Patient at risk for falls, Left in chair, Nurse notified Restraints Restraints Initially in Place: No Restrictions Restrictions/Precautions Restrictions/Precautions: Fall Risk, Up as Tolerated Required Braces or Orthoses?: No Subjective General Patient assessed for rehabilitation services?: Yes Response To Previous Treatment: Not applicable Family / Caregiver Present: No Follows Commands: Within Functional Limits Subjective Subjective: denies pain--does c/o SOB, on 3L, O2 sats 93% Social/Functional History Social/Functional History Lives With: Alone (14 yr old granddaughter was living with her, but is going to live with her mom) Type of Home: Apartment Home Layout: One level Home Access: Level entry Home Equipment: Cane Has the patient had two or more falls in the past year or any fall with injury in the past year?: Yes Receives Help From: Family ADL Assistance: Independent Ambulation Assistance: Independent Transfer Assistance: Independent Active Pompom Maker: No (pt states she hasn't driven in ~5 years--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 but can't afford to have a car) Mode of Transportation: Family, Friends Additional Comments: pt states over the past several months she feels she's been declining/having more difficulty getting around Vision/Hearing Vision Vision: Impaired Vision Exceptions: Wears glasses at all times Hearing Hearing: Within functional limits Cognition Orientation Overall Orientation Status: Within Functional Limits Orientation Level: Oriented X4 Cognition Overall Cognitive Status: Exceptions Arousal/Alertness: Appropriate responses to stimuli Following Commands: Follows all commands without difficulty Attention Span: Attends with cues to redirect Safety Judgement: Decreased awareness of need for assistance;Decreased awareness of need for safety Problem Solving: Assistance required to correct errors made;Assistance required to identify errors made;Decreased awareness of errors Insights: Decreased awareness of deficits Initiation: Requires cues for some Sequencing: Requires cues for some Objective Temp: 98.4 F (36.9 C) Pulse: 85 Heart Rate Source: Monitor Respirations: 21 SpO2: 99 % O2 Device: Nasal cannula (3L; pt states she normally wears 2.5L at home; she states her O2 hose isn't long enough to reach to her bedroom, and she doesn't remember how to fill her cannisters) BP: 132/71 MAP (Calculated): 91 BP Location: Left upper arm BP Method: Automatic Observation/Palpation Posture: Fair Observation: flexed posture, tends to stay too far away from the walker, frequent verbal cues to correct Edema: x4 PROM RLE (degrees) RLE PROM: WFL PROM LLE (degrees) LLE PROM: Exceptions--ankle neutral dorsiflexion, 20 degrees plantarflexion; knee/hip WFL PROM RUE (degrees) RUE PROM: WFL PROM LUE (degrees) LUE PROM: WFL Strength RLE Strength RLE: Exception--hip 3/5; knee/ankle WFL Strength LLE Strength LLE: Exception--hip 3/5; knee WFL; ankle dorsiflexion 3+/5; plantarflexion 4/5 Strength RUE Strength RUE: WFL Strength LUE Strength LUE: WFL Bed mobility Rolling to Left: Stand by assistance Supine to Sit: Stand by assistance (moves slowly, with difficulty) Scooting: Stand by assistance Transfers Sit to Stand: Contact guard assistance Stand to Sit: Contact guard assistance Bed to Chair: Minimal assistance Stand Pivot Transfers: Minimal Assistance Ambulation Surface: Level tile Device: Rolling Walker Other Apparatus: O2 Assistance: Minimal assistance Quality of Gait: flexed posture, frequent cues to stay in closer to the walker; 2 episodes LOB requiring min A to help prevent falling Gait Deviations: Slow [place];Decreased step length;Decreased step height;Decreased arm swing;Decreased head and trunk rotation;Shuffles;Staggers Distance: 12'x1; 25'x1 with seated rest break in between Stairs/Curb Stairs?: No Balance Posture: Fair Sitting - Static: Good Sitting - Dynamic: Good Standing - Static: Fair Standing - Dynamic: Poor;+ A/AROM Exercises: AROM x 4, 10 reps all planes seated in chair; also LE ex supine x 10 reps Breathing Techniques: pursed lip breathing AM-PAC - Mobility Goals Short Term Goals Time Frame for Short Term Goals: 14 visits Short Term Goal 1: independent bed mobility w/o use of bed controls Short Term Goal 2: independent transfers Short Term Goal 3: independent gait with appropriate device x 50' Patient Goals Patient Goals : get stronger, move better so I can go home independently Education Patient Education Education Given To: Patient Education Provided: Role of Therapy;Plan of Care;Home Exercise Program;Transfer Training;Equipment;Fall Prevention Strategies Education Method: Demonstration;Verbal Education Outcome: Verbalized understanding;Continued education needed Therapy Time Individual Concurrent Group Co-treatment Time In 1423 Time Out 1528 Minutes 65 Timed Code Treatment Minutes: 35 Minutes Tom Dempsey PT Images from the original note were not included. [facility] Office: [phone] Alvin Ma DO, Erick Burns DO, Varghese Abreu DO, Randy Zelaya DO, Raz Monzon MD, Tiara Quintana MD, Lianet Murcia MD, Nicolle Cardoso MD, Ray De La Cruz MD, Kathi Ibanez MD, Diana Joseph MD, Yoselin De La Paz DO, Osvaldo Cortes MD, Patrick Mcbride MD, Jesus Ma DO, Amira King MD, Grabiel Benedict DO, Rubi Frias MD, Teresa Queen MD, Susan Collins MD, Carol Abreu MD, Ehsan Palacio MD, Elma Tejada MD, Elgin Young MD, Kelsie Oneill MD, Klaus Yeung MD, Deanna Coyle MD, Carlos Jaquez DO, Reynaldo Hameed DO, Jie Lugo MD, Bruce Pozo MD, Aida Montemayor CNP, Nereyda Patiño CNP, Vito Calabrese CNP, Karime Keane DNP, Halima Mason CNP, Carmen Orozco, OSVALDO, Kathy Flores CNP, Farnaz Lucas CNP, ARTUR ColonC, ARTUR RodriguezC, Olivia Stiles OSVALDO, Ying Singleton, CUSTOMER RETENTION REPRESENTATIVE, Vikas Laird, CUSTOMER RETENTION REPRESENTATIVE, Mira Pina, CUSTOMER RETENTION REPRESENTATIVE, Briana Lim, CUSTOMER RETENTION REPRESENTATIVE, Shirley Johnson, YOUSIF, Jenny Denise, OSVALDO, Jasmine Leong, OSVALDO, Janice Perla, CUSTOMER RETENTION REPRESENTATIVE [facility] IN-PATIENT SERVICE [facility] Progress Note 12/01/2023 3:27 PM Name: Jenny Ewing Acct: [id number] Room: IP Day: 6 Admit Date: 11/25/2023 4:07 AM PCP: No primary care provider on file. Code Status: Full Code Subjective: C/C: GI bleed Interval History Status: stable. Patient seen examined at bedside. Complains of feeling tired. Underwent EGD which showed large duodenal ulcer with no active bleeding currently. Restarted diet. Encourage PT OT. Patient will benefit from SNF but she refused to go to SNF insisted on going home. Patient lives by herself. Will monitor overnight and plan for discharge tomorrow morning. Brief History: 73 year old female with past medical history of smoking, depression, back pain presents with maroon and black stools at home as well as a fall. Patient has history of GI bleed was clipped ad EGD, reports not available. Patient has hemoglobin of 6.6. received 1 unit transfusion at [facility]. She has not been able to parts picker her medications from prior discharge from [facility]. They were sent to her pharmacy on Thursday but has not been able to get them. Underwent EGD and found to have Large duodenal ulcer 2/2 chronic NSAID use for chronic pain. X-tack stitch and hemspray powder application were performed. Patient continued to have upper GI bleed and was eval by IR underwent GDA embolization with 3 coils with IR on 11/27/2023. Patient decompensated on 11/29/2023 transferred to the ICU after becoming anemic after 2 units of blood transfusions and hypotensive. Patient reevaluated by GI plan for EGD on 12/01/2023. Review of Systems: Review of Systems Constitutional: Positive for fatigue. Negative for activity change, appetite change, chills and fever. HENT: Negative for congestion, ear pain, facial swelling and mouth sores. Eyes: Negative for discharge and itching. Respiratory: Negative for apnea and chest tightness. Cardiovascular: Negative for chest pain and leg swelling. Gastrointestinal: Negative for abdominal distention, abdominal pain, constipation and diarrhea. Endocrine: Negative for cold intolerance, polyphagia and polyuria. Genitourinary: Negative for difficulty urinating, dysuria and flank pain. Musculoskeletal: Negative for arthralgias, back pain and joint swelling. Skin: Negative for color change and wound. Neurological: Positive for weakness. Negative for dizziness, seizures, light-headedness and headaches. Psychiatric/Behavioral: Negative for agitation, behavioral problems and self-injury. Medications: Allergies: Allergies Allergen Reactions Motrin [Ibuprofen] Other (See Comments) GI BLEED Avelox [Moxifloxacin] Hives Codeine Other (See Comments) nightmares Niacin And Related Hives Current Meds: Scheduled Meds: sodium chloride flush 5-40 mL IntraVENous 2 times per day levothyroxine 175 mcg Oral QAM AC doxepin 10 mg Oral Nightly amoxicillin-clavulanate 1 tablet Oral 2 times per day fluticasone 1 puff Inhalation BID RT ipratropium 0.5 mg-albuterol 2.5 mg 1 Dose Inhalation TID RT Hydrocerin Topical BID sodium chloride flush 5-40 mL IntraVENous 2 times per day baclofen 10 mg Oral BID WC busPIRone 15 mg Oral BID WC busPIRone 30 mg Oral Nightly DULoxetine 40 mg Oral Daily hydrocortisone 7.5 mg Oral QAM AC hydrocortisone 5 mg Oral Lunch Continuous Infusions: sodium chloride pantoprazole 8 mg/hr (11/30/232314) sodium chloride sodium chloride 75 mL/hr at 11/30/235 PRN Meds: naloxone 0.4 mg in 10 mL sodium chloride syringe, sodium chloride flush, sodium chloride, HYDROmorphone, HYDROmorphone, ondansetron, labetalol OR hydrALAZINE, LORazepam, loperamide, midodrine, melatonin, potassium chloride OR potassium alternative oral replacement OR potassium chloride, magnesium sulfate, sodium chloride, ondansetron OR ondansetron, acetaminophen OR acetaminophen, fentanNYL, albuterol sulfate HFA, hypromellose, sodium chloride, traMADol Data: Past Medical History: has a past medical history of Anxiety, Arthritis, Cerebral artery occlusion with cerebral infarction (HCC), COPD (chronic obstructive pulmonary disease) (HCC), Depression, History of blood transfusion, and Thyroid disease. Social History: reports that she has been smoking cigarettes. She has a 25.0 pack-year smoking history. She has never used smokeless tobacco. She reports that she does not currently use alcohol. She reports that she does not use drugs. Family History: History reviewed. No pertinent family history. Vitals: BP 132/71 Pulse 85 Temp 98.4 F (36.9 C) (Oral) Resp 21 Ht 1.6 m (5' 2.99 ) Wt 87 kg (191 lb 12.8 oz) SpO2 99% BMI 33.98 kg/m Temp (24hrs), Av.3 F (36.8 C), Min:97.2 F (36.2 C), Max:98.7 F (37.1 C) Recent Labs 11/30/23 0758 POCGLU 79 I/O (24Hr): Intake/Output Summary (Last 24 hours) at 12/01/2023 1527 Last data filed at 12/01/2023 0836 Gross per 24 hour Intake 560 ml Output -- Net 560 ml Labs: Hematology: Recent Labs 11/29/23 0920 11/29/23 1608 11/30/23 0204 11/30/23 0730 11/30/23 2013 12/01/23 0145 12/01/23 1021 WBC 12.2* -- 8.7 -- -- 7.7 -- RBC 2.02* -- 2.02* -- -- 2.36* -- HGB 6.2* < > 6.2* < > 7.9* 7.1* 8.8* HCT 20.7* < > 19.8* < > 23.8* 22.9* 28.7* MCV 102.5 -- 98.0 -- -- 97.0 -- MCH 30.7 -- 30.7 -- -- 30.1 -- MCHC 30.0 -- 31.3 -- -- 31.0 -- RDW 19.0* -- 17.1* -- -- 18.8* -- PLT 245 -- 171 -- -- 201 -- MPV 10.8 -- 10.3 -- -- 10.2 -- < > = values in this interval not displayed. Chemistry: Recent Labs 11/29/2391911/30/2320312/01/23 0145 NA 135* 138 137 K 3.3* 4.4 3.8 CL 103 108* 107 CO2 23 26 23 GLUCOSE 210* 83 79 BUN 9 12 8 CREATININE 0.4* 0.4* 0.3* MG 1.7 -- -- ANIONGAP 9 4* 7* LABGLOM >90 >90 >90 CALCIUM 6.7* 6.6* 6.8* CAION -- 1.07* -- LACTACIDWB -- 0.6* -- Recent Labs 11/29/2391911/29/23201511/30/23 0758 TSH -- 9.13* -- AST 27 -- -- ALT 19 -- -- ALKPHOS 45 -- -- BILITOT <0.2 -- -- BILIDIR <0.2 -- -- POCGLU -- -- 79 ABG:No results found for: POCPH , PHART , PH , POCPCO2 , MNX6BMH , PCO2 , POCPO2 , PO2ART , PO2 , POCHCO3 , XIO8RAS , HCO3 , NBEA , PBEA , BEART , BE , THGBART , THB , IBS4SID , YDQB8EQT , X9TDGCPM , O2SAT , FIO2 No results found for: SPECIAL Lab Results Component Value Date/Time CULTURE NO GROWTH 5 DAYS 11/25/2023 09:58 AM CULTURE NO GROWTH 5 DAYS 11/25/2023 09:58 AM Radiology: CTA ABDOMEN PELVIS W WO CONTRAST Result Date: 11/29/2023 1. No acute findings. Embolization coils in the right upper quadrant without appreciable arterial bleeding/active extravasation. No hyperdense fluid collections visualized in bowel loops on noncontrast exam. Interval improved thickening of the stomach and proximal duodenum, may reflect resolved hemorrhage or improved gastritis. 2. Redemonstration of diffuse subcutaneous soft tissue edema. 3. Redemonstration of pleural effusions in the lung bases. 4. Unchanged mild abdominal ascites. 5. Atherosclerotic vascular disease of the aorta and its branches without evidence of flow-limiting stenosis. CT SINUS WO CONTRAST Result Date: 11/29/2023 Chronic sinusitis involving the left maxillary sinus. Potential remote posttraumatic change of the left inferior orbital wall and correlation is needed. IR EMBOLIZATION HEMORRHAGE Result Date: 11/28/2023 Contrast extravasation via truncated duodenal side-branch GDA with successful coil embolization, as above. XR CHEST PORTABLE Result Date: 11/27/2023 Right mid and lower lung consolidation consistent with pneumonia. Trace left basilar effusion. XR CHEST PORTABLE Result Date: 11/25/2023 Layering right greater than left pleural effusions and bibasilar atelectasis. CTA ABDOMEN PELVIS W WO CONTRAST Result Date: 11/25/2023 1. No evidence of mesenteric ischemia or contrast extravasation. 2. Small bilateral pleural effusions greater on the right with right basilar atelectasis. 3. Small amount of free fluid in the pelvis and surrounding the liver. 4. Mild left hydronephrosis. 5. Diffuse wall thickening of the stomach possibly reflecting gastritis. Consider direct visualization. 6. Small fat containing umbilical hernia. 7. Diffuse anasarca. Physical Examination: Physical Exam Constitutional: Appearance: She is not ill-appearing or diaphoretic. HENT: Head: Normocephalic. Right Ear: External ear normal. Left Ear: External ear normal. Nose: No congestion. Mouth/Throat: Mouth: Mucous membranes are dry. Eyes: Pupils: Pupils are equal, round, and reactive to light. Cardiovascular: Rate and Rhythm: Normal rate and regular rhythm. Heart sounds: Murmur heard. Pulmonary: Comments: Diminished in bases Abdominal: General: There is no distension. Palpations: Abdomen is soft. Tenderness: There is no abdominal tenderness. There is no guarding. Musculoskeletal: Cervical back: Neck supple. Right lower leg: No edema. Left lower leg: No edema. Skin: General: Skin is dry. Capillary Refill: Capillary refill takes 2 to 3 seconds. Coloration: Skin is pale. Neurological: Mental Status: She is alert and oriented to person, place, and time. Motor: Weakness present. Psychiatric: Mood and Affect: Mood normal. Behavior: Behavior normal. Assessment: Hospital Problems Last Modified POA * (Principal) GI bleed 11/25/2023 Yes GIB (gastrointestinal bleeding) 11/25/2023 Yes Acute anemia 11/25/2023 Yes Chronic pain syndrome 11/25/2023 Yes Chronic respiratory failure with hypoxia (HCC) 11/25/2023 Yes Dependence on supplemental oxygen 11/25/2023 Yes Duodenal ulcer 11/25/2023 Yes Gastroesophageal reflux disease 11/25/2023 Yes Generalized anxiety disorder 11/25/2023 Yes Peripheral venous insufficiency 11/25/2023 Yes Sleep dysfunction with arousal disturbance 11/25/2023 Yes Tobacco user 11/25/2023 Yes Plan: Upper GI bleed with known duodenal ulcer. S/p EGD which showed large duodenal ulcer with no active bleeding, gastritis and Schatzki's ring. Continued on PPI. Hemoglobin stable. Restarted diet. Repeat EGD in 4 to 6 weeks. Sinusitis-continue Augmentin Hypotension adrenal insufficiency. Cortef, midodrine as needed Fibromyalgia Cymbalta Anxiety. BuSpar Hypothyroidism Synthroid 175 mcg. Increased from base dose of 150 mcg COPD- continue Flovent and DuoNeb. Started on regular diet. Generalized weakness-encouraged to work with PT OT. Discharge planning-patient would benefit from SNF but she refused going to SNF and wants to go home. She lives by herself. Will monitor patient overnight and plan for discharge home with home care tomorrow. Carol Arbeu MD 12/01/2023 3:27 PM [facility] Progress Note Patient - Jenny Ewing Date of Admission - 11/25/2023 4:07 AM Date of Evaluation - 12/01/2023 Room and Bed Number - Hospital Day - 6 Cc gi bleed SUBJECTIVE: HISTORY OF PRESENT ILLNESS: 73-year-old female, admitted to medical floors on 11/24 for GI bleed. She had maroon and black stools. Her hemoglobin was down to 6.0. She received 2 units of blood. EGD performed on 11/24 showed a large duodenal ulcer. Gastroenterology was consulted, PPI drip started. IR consulted on 11/26, embolization of the gastroduodenal artery with 3 coils placed. Patient had episodes of hypotension, not requiring blood pressure support and she was mentating normally however medical floors were not comfortable with the low pressure, maps in the mid 50s to low 60s. Blood pressure did not appear to respond to resuscitation with blood, fluids, midodrine, she was transferred to the ICU for further management and continued care. OVERNIGHT EVENTS: No acute events overnight. Post egd OBJECTIVE: VITAL SIGNS: Patient Vitals for the past 8 hrs: BP Temp Temp src Pulse Resp SpO2 12/01/23 1200 132/71 98.4 F (36.9 C) Oral 85 21 99 % 12/01/23 0900 123/79 -- -- 86 12 95 % 12/01/23 0845 126/62 -- -- 80 12 93 % 12/01/23 0835 106/65 98.7 F (37.1 C) Temporal 89 12 -- 12/01/23 0740 136/74 97.9 F (36.6 C) Temporal 81 18 92 % Last Body weight: Wt Readings from Last 3 Encounters: 12/01/23 87 kg (191 lb 12.8 oz) Body Mass Index : Body mass index is 33.98 kg/m . Tmax over 24 hours: Temp (24hrs), Av.3 F (36.8 C), Min:97.2 F (36.2 C), Max:98.7 F (37.1 C) Ins/Outs: In: 560 [P.O.:360; I.V.:200] Out: - PHYSICAL EXAM: Constitutional: Appears well, no distress EENT: PERRLA, EOMI, sclera clear, anicteric, oropharynx clear, no lesions, neck supple with midline trachea. Neck: Supple, symmetrical, trachea midline, no adenopathy, thyroid symmetric, no jvd skin normal Respiratory: clear to auscultation, no wheezes or rales and unlabored breathing. No intercostal tenderness Cardiovascular: regular rate and rhythm, normal S1, S2, no murmur noted and 2+ pulses throughout Abdomen: soft, nontender, nondistended, no masses or organomegaly Extremities: peripheral pulses normal, no pedal edema, no clubbing or cyanosis MEDICATIONS: Scheduled Meds: sodium chloride flush 5-40 mL IntraVENous 2 times per day levothyroxine 175 mcg Oral QAM AC doxepin 10 mg Oral Nightly amoxicillin-clavulanate 1 tablet Oral 2 times per day fluticasone 1 puff Inhalation BID RT ipratropium 0.5 mg-albuterol 2.5 mg 1 Dose Inhalation TID RT Hydrocerin Topical BID sodium chloride flush 5-40 mL IntraVENous 2 times per day baclofen 10 mg Oral BID WC busPIRone 15 mg Oral BID WC busPIRone 30 mg Oral Nightly DULoxetine 40 mg Oral Daily hydrocortisone 7.5 mg Oral QAM AC hydrocortisone 5 mg Oral Lunch Review of Systems - General ROS: negative for - chills, fatigue, fever or weight loss ENT ROS: negative for - headaches, oral lesions or sore throat Cardiovascular ROS: no chest pain , orthopnea or pnd Gastrointestinal ROS: no abdominal pain, change in bowel habits, or black or bloody stools Skin - no rash Neuro - no blurry vision , no loc . No focal weakness Continuous Infusions: sodium chloride pantoprazole 8 mg/hr (11/30/232314) sodium chloride sodium chloride 75 mL/hr at 11/30/232314 PRN Meds: naloxone 0.4 mg in 10 mL sodium chloride syringe, , PRN sodium chloride flush, 5-40 mL, PRN sodium chloride, , PRN HYDROmorphone, 0.25 mg, Q5 Min PRN HYDROmorphone, 0.5 mg, Q5 Min PRN ondansetron, 4 mg, Once PRN labetalol, 10 mg, Q15 Min PRN Or hydrALAZINE, 10 mg, Q15 Min PRN LORazepam, 0.5 mg, Q4H PRN loperamide, 2 mg, 4x Daily PRN midodrine, 10 mg, TID PRN melatonin, 3 mg, Nightly PRN potassium chloride, 40 mEq, PRN Or potassium alternative oral replacement, 40 mEq, PRN Or potassium chloride, 10 mEq, PRN magnesium sulfate, 1,000 mg, PRN sodium chloride, , PRN ondansetron, 4 mg, Q8H PRN Or ondansetron, 4 mg, Q6H PRN acetaminophen, 650 mg, Q6H PRN Or acetaminophen, 650 mg, Q6H PRN fentanNYL, 25 mcg, Q2H PRN albuterol sulfate HFA, 2 puff, Q6H PRN hypromellose, 2 drop, Q6H PRN sodium chloride, 1 spray, PRN traMADol, 100 mg, Q6H PRN SUPPORT DEVICES: [] Ventilator [] BIPAP [x] Nasal Cannula [] Room Air Additional Respiratory Assessments Pulse: 85 Respirations: 21 SpO2: 99 % No results found for: IFIO2 , MODE , SETTIDVOL , SETPEEP No results found for: PH , PCO2 , PO2 , HCO3 , O2SAT DATA: Complete Blood Count: Recent Labs 11/29/23 0911/29/23 1608 11/30/2320311/30/23 0730 11/30/23201212/01/23 0145 12/01/23 1021 WBC 12.2* -- 8.7 -- -- 7.7 -- RBC 2.02* -- 2.02* -- -- 2.36* -- HGB 6.2* < > 6.2* < > 7.9* 7.1* 8.8* HCT 20.7* < > 19.8* < > 23.8* 22.9* 28.7* MCV 102.5 -- 98.0 -- -- 97.0 -- MCH 30.7 -- 30.7 -- -- 30.1 -- MCHC 30.0 -- 31.3 -- -- 31.0 -- RDW 19.0* -- 17.1* -- -- 18.8* -- PLT 245 -- 171 -- -- 201 -- MPV 10.8 -- 10.3 -- -- 10.2 -- < > = values in this interval not displayed. Last 3 Blood Glucose: Recent Labs 11/29/2391911/30/2320312/01/23 0145 GLUCOSE 210* 83 79 PT/INR: Lab Results Component Value Date/Time PROTIME 15.5 11/25/2023 05:02 AM INR 1.2 11/25/2023 05:02 AM PTT: Lab Results Component Value Date/Time APTT 25.5 11/25/2023 05:02 AM Basic Metabolic Profile: Recent Labs 11/29/2391911/30/2320312/01/23 0145 NA 135* 138 137 K 3.3* 4.4 3.8 CL 103 108* 107 CO2 23 26 23 BUN 9 12 8 CREATININE 0.4* 0.4* 0.3* GLUCOSE 210* 83 79 MG 1.7 -- -- Liver Function: Recent Labs 11/29/23 0920 ALT 19 AST 27 ALKPHOS 45 BILITOT <0.2 Magnesium: Lab Results Component Value Date/Time MG 1.7 11/29/2023 09:20 AM MG 1.9 11/27/2023 03:54 AM MG 1.5 11/26/2023 03:07 AM Phosphorus: No results found for: PHOS Ionized Calcium: Lab Results Component Value Date/Time CAION 1.07 11/30/2023 02:04 AM Urinalysis: No results found for: NITRU , COLORU , PHUR , LABCAST , WBCUA , RBCUA , MUCUS , TRICHOMONAS , YEAST , BACTERIA , CLARITYU , SPECGRAV , LEUKOCYTESUR , UROBILINOGEN , BILIRUBINUR , BLOODU , GLUCOSEU , KETUA , AMORPHOUS HgBA1c: No results found for: LABA1C TSH: Lab Results Component Value Date/Time TSH 9.13 11/29/2023 08:16 PM Lactic Acid: No results found for: LACTA Troponin: No results for input(s): TROPONINI in the last 72 hours. Other Labs: Radiology/Imaging: CTA ABDOMEN PELVIS W WO CONTRAST Final Result 1. No acute findings. Embolization coils in the right upper quadrant without appreciable arterial bleeding/active extravasation. No hyperdense fluid collections visualized in bowel loops on noncontrast exam. Interval improved thickening of the stomach and proximal duodenum, may reflect resolved hemorrhage or improved gastritis. 2. Redemonstration of diffuse subcutaneous soft tissue edema. 3. Redemonstration of pleural effusions in the lung bases. 4. Unchanged mild abdominal ascites. 5. Atherosclerotic vascular disease of the aorta and its branches without evidence of flow-limiting stenosis. CT SINUS WO CONTRAST Final Result Chronic sinusitis involving the left maxillary sinus. Potential remote posttraumatic change of the left inferior orbital wall and correlation is needed. IR EMBOLIZATION HEMORRHAGE Final Result Contrast extravasation via truncated duodenal side-branch GDA with successful coil embolization, as above. XR CHEST PORTABLE Final Result Right mid and lower lung consolidation consistent with pneumonia. Trace left basilar effusion. XR CHEST PORTABLE Final Result Layering right greater than left pleural effusions and bibasilar atelectasis. CTA ABDOMEN PELVIS W WO CONTRAST Final Result 1. No evidence of mesenteric ischemia or contrast extravasation. 2. Small bilateral pleural effusions greater on the right with right basilar atelectasis. 3. Small amount of free fluid in the pelvis and surrounding the liver. 4. Mild left hydronephrosis. 5. Diffuse wall thickening of the stomach possibly reflecting gastritis. Consider direct visualization. 6. Small fat containing umbilical hernia. 7. Diffuse anasarca. ASSESSMENT: Patient Active Problem List Diagnosis Date Noted GIB (gastrointestinal bleeding) 11/25/2023 GI bleed 11/25/2023 Acute anemia 11/24/2023 Duodenal ulcer 11/24/2023 Tobacco user 11/17/2023 Chronic respiratory failure with hypoxia (HCC) 08/13/2023 Arthritis of both knees 01/06/2023 Chronic pain syndrome 01/06/2023 Dependence on supplemental oxygen 01/06/2023 Gastroesophageal reflux disease 01/06/2023 Generalized anxiety disorder 01/06/2023 Peripheral venous insufficiency 01/06/2023 Sleep dysfunction with arousal disturbance 01/06/2023 Principal Problem: GI bleed Active Problems: GIB (gastrointestinal bleeding) Acute anemia Chronic pain syndrome Chronic respiratory failure with hypoxia (HCC) Dependence on supplemental oxygen Duodenal ulcer Gastroesophageal reflux disease Generalized anxiety disorder Peripheral venous insufficiency Sleep dysfunction with arousal disturbance Tobacco user Resolved Problems: * No resolved hospital problems. * PLAN: Post egd Monitor hb Cont ppi Wean off o2 keep sats >92 % Will sign off Report called to Adriane in [facility] Comprehensive Nutrition Assessment Type and Reason for Visit: Reassess Nutrition Recommendations/Plan: Continue current Clear Liquid diet. Will provide clear ONS with meals. Encourage intakes as tolerated and monitor plans for diet advancement. Malnutrition Assessment: Malnutrition Status: At risk for malnutrition (11/26/23 1131) Context: Acute Illness Findings of the 6 clinical characteristics of malnutrition: Energy Intake: 75% or less of estimated energy requirements for 7 or more days Weight Loss: No significant weight loss Body Fat Loss: Unable to assess Muscle Mass Loss: Unable to assess Fluid Accumulation: Mild Extremities Gamb Cutter Strength: Not Performed Nutrition Assessment: Pt started on Clear Liquid diet today. Will provide clear ONS, monitor intakes, and plans for diet advancement. Weight fluctuations since admission noted. Labs/Meds reviewed. Nutrition Related Findings: Labs/Meds reviewed. Last BM 11/29. Wound Type: None Current Nutrition Intake & Therapies: Average Meal Intake: (Diet recently started.) Average Supplements Intake: None Ordered ADULT DIET; Clear Liquid Diet NPO Exceptions are: Sips of Water with Meds Additional Calorie Sources: None Anthropometric Measures: Height: 160 cm (5' 2.99 ) [place] Body Weight (IBW): 115 lbs (52 kg) Admission Body Weight: 67.2 kg (148 lb 2.4 oz) Current Body Weight: 81.6 kg (179 lb 14.3 oz), 156.4 % IBW. Weight Source: Bed Scale Current BMI (kg/m2): 31.9 Usual Body Weight: 59.4 kg (130 lb 15.3 oz) (07/23/23) % Weight Change (Calculated): 13.1 Weight Adjustment For: No Adjustment BMI Categories: Obese Class 1 (BMI 30.0-34.9) Estimated Daily Nutrient Needs: Energy Requirements Based On: Kcal/kg Weight Used for Energy Requirements: Admission Energy (kcal/day): 6938-9182 kcals/day Weight Used for Protein Requirements: Admission Protein (g/day): 80 to 100 g/day Method Used for Fluid Requirements: 1 ml/kcal Fluid (ml/day): 5335-6093 mL/day or per MD Nutrition Diagnosis: Inadequate oral intake related to altered GI structure as evidenced by (recent start of clear liquid diet; need for oral supplements) Nutrition Interventions: Food and/or Nutrient Delivery: Continue Current Diet, Start Oral Nutrition Supplement Nutrition Education/Counseling: No recommendation at this time Coordination of Nutrition Care: Continue to monitor while inpatient Goals: Previous Goal Met: Progressing toward Goal(s) Goals: Meet at least 75% of estimated needs, prior to discharge Nutrition Monitoring and Evaluation: Behavioral-Environmental Outcomes: None Identified Food/Nutrient Intake Outcomes: Food and Nutrient Intake, Supplement Intake, Diet Advancement/Tolerance Physical Signs/Symptoms Outcomes: Biochemical Data, GI Status, Fluid Status or Edema, Weight, Skin, Nutrition Focused Physical Findings, Hemodynamic Status Discharge Planning: Too soon to determine Carla Scott RD, LD Contact: [phone] Images from the original note were not included. [facility] Office: [phone] Alvin Ma DO, Erick Burns DO, Varghese Abreu DO, Randy Zelaya DO, Raz Monzon MD, Tiara Quintana MD, Lianet Murcia MD, Nicolle Cardoso MD, Ray De La Cruz MD, Kathi Ibanez MD, Diana Joseph MD, Yoselin De La Paz DO, Osvaldo Cortes MD, Patrick Mcbride MD, Jesus Ma DO, Amira King MD, Grabiel Benedict DO, Rubi Frias MD, Teresa Queen MD, Susan Collins MD, Carol Abreu MD, Ehsan Palacio MD, Elma Tejada MD, Elgin Young MD, Kelsie Oneill MD, Klaus Yeung MD, Deanna Coyle MD, Carlos Jaquez DO, Reynaldo Hameed DO, Jie Lugo MD, Bruce Pozo MD, Aida Montemayor CNP, Nereyda Patiño CNP, Vito Calabrese CNP, Karime Keane, AAYUSH, Halima Mason, CUSTOMER RETENTION REPRESENTATIVE, Carmen Orozco, CUSTOMER RETENTION REPRESENTATIVE, Kathy Flores, CUSTOMER RETENTION REPRESENTATIVE, Farnaz Lucas CUSTOMER RETENTION REPRESENTATIVE, Maricel Burger PAGarrettC, ARTUR RodriguezC, Olivia Stiles CUSTOMER RETENTION REPRESENTATIVE, Ying Singleton CUSTOMER RETENTION REPRESENTATIVE, Vikas Laird CUSTOMER RETENTION REPRESENTATIVE, Mira Pina, CUSTOMER RETENTION REPRESENTATIVE, Briana Lim, CUSTOMER RETENTION REPRESENTATIVE, Shirley Johnson, COMMERCIAL FISHER, Jenny Denise, OSVALDO, Jasmine Leong CUSTOMER RETENTION REPRESENTATIVE, Janice Perla, CUSTOMER RETENTION REPRESENTATIVE [facility] IN-PATIENT SERVICE [facility] Progress Note 11/30/2023 12:31 PM Name: Jenny Ewing Acct: [id number] Room: IP Day: 5 Admit Date: 11/25/2023 4:07 AM PCP: No primary care provider on file. Code Status: Full Code Subjective: C/C: No chief complaint on file. Interval History Status: not changed. Patient seen examined at bedside. Overall feeling okay. Energy is slightly improved compared to prior examination. Blood pressure stable. Brief History: 73 year old female with past medical history of smoking, depression, back pain presents with maroon and black stools at home as well as a fall. Patient has history of GI bleed was clipped ad EGD, reports not available. Patient has hemoglobin of 6.6. received 1 unit transfusion at [facility]. She has not been able to parts picker her medications from prior discharge from [facility]. They were sent to her pharmacy on Thursday but has not been able to get them. Underwent EGD and found to have Large duodenal ulcer 2/2 chronic NSAID use for chronic pain. X-tack stitch and hemspray powder application were performed. Patient continued to have upper GI bleed and was eval by IR underwent GDA embolization with 3 coils with IR on 11/27/2023. Patient decompensated on 11/29/2023 transferred to the ICU after becoming anemic after 2 units of blood transfusions and hypotensive. Patient reevaluated by GI plan for EGD on 12/01/2023. Review of Systems: Review of Systems Constitutional: Positive for fatigue. Negative for activity change, appetite change, chills and fever. HENT: Negative for congestion, ear pain, facial swelling and mouth sores. Eyes: Negative for discharge and itching. Respiratory: Negative for apnea and chest tightness. Cardiovascular: Negative for chest pain and leg swelling. Gastrointestinal: Negative for abdominal distention, abdominal pain, constipation and diarrhea. Endocrine: Negative for cold intolerance, polyphagia and polyuria. Genitourinary: Negative for difficulty urinating, dysuria and flank pain. Musculoskeletal: Negative for arthralgias, back pain and joint swelling. Skin: Negative for color change and wound. Neurological: Positive for weakness. Negative for dizziness, seizures, light-headedness and headaches. Psychiatric/Behavioral: Negative for agitation, behavioral problems and self-injury. Medications: Allergies: Allergies Allergen Reactions Motrin [Ibuprofen] Other (See Comments) GI BLEED Avelox [Moxifloxacin] Hives Codeine Other (See Comments) nightmares Niacin And Related Hives Current Meds: Scheduled Meds: [START ON 12/01/2023] levothyroxine 175 mcg Oral QAM AC doxepin 10 mg Oral Nightly amoxicillin-clavulanate 1 tablet Oral 2 times per day fluticasone 1 puff Inhalation BID RT ipratropium 0.5 mg-albuterol 2.5 mg 1 Dose Inhalation TID RT Hydrocerin Topical BID sodium chloride flush 5-40 mL IntraVENous 2 times per day baclofen 10 mg Oral BID WC busPIRone 15 mg Oral BID WC busPIRone 30 mg Oral Nightly DULoxetine 40 mg Oral Daily hydrocortisone 7.5 mg Oral QAM AC hydrocortisone 5 mg Oral Lunch Continuous Infusions: pantoprazole 8 mg/hr (11/30/23551) sodium chloride sodium chloride Stopped (11/30/23519) PRN Meds: LORazepam, loperamide, midodrine, melatonin, potassium chloride OR potassium alternative oral replacement OR potassium chloride, magnesium sulfate, sodium chloride, ondansetron OR ondansetron, acetaminophen OR acetaminophen, fentanNYL, albuterol sulfate HFA, hypromellose, sodium chloride, traMADol Data: Past Medical History: has a past medical history of Anxiety, Arthritis, Cerebral artery occlusion with cerebral infarction (HCC), COPD (chronic obstructive pulmonary disease) (HCC), Depression, History of blood transfusion, and Thyroid disease. Social History: reports that she has been smoking cigarettes. She has a 25.0 pack-year smoking history. She has never used smokeless tobacco. She reports that she does not currently use alcohol. She reports that she does not use drugs. Family History: History reviewed. No pertinent family history. Vitals: BP (!) 101/56 Pulse 71 Temp 98.4 F (36.9 C) (Oral) Resp 15 Ht 1.6 m (5' 3 ) Comment: per patient Wt 81.6 kg (180 lb) SpO2 94% BMI 31.89 kg/m Temp (24hrs), Av.3 F (36.8 C), Min:97.3 F (36.3 C), Max:99.3 F (37.4 C) Recent Labs 11/30/23 0758 POCGLU 79 I/O (24Hr): Intake/Output Summary (Last 24 hours) at 11/30/2023 1231 Last data filed at 11/30/2023 0552 Gross per 24 hour Intake 3099.25 ml Output 500 ml Net 2599.25 ml Labs: Hematology: Recent Labs 11/29/23 0911/29/23 1608 11/29/23201511/30/23 0204 11/30/23 0730 WBC 12.2* -- -- 8.7 -- RBC 2.02* -- -- 2.02* -- HGB 6.2* < > 7.8* 6.2* 8.3* HCT 20.7* < > 23.5* 19.8* 26.2* MCV 102.5 -- -- 98.0 -- MCH 30.7 -- -- 30.7 -- MCHC 30.0 -- -- 31.3 -- RDW 19.0* -- -- 17.1* -- PLT 245 -- -- 171 -- MPV 10.8 -- -- 10.3 -- < > = values in this interval not displayed. Chemistry: Recent Labs 11/28/23 0334 11/29/2391911/30/23 0204 NA 135* 135* 138 K 3.7 3.3* 4.4 CL 105 103 108* CO2 21 23 26 GLUCOSE 88 210* 83 BUN 10 9 12 CREATININE 0.3* 0.4* 0.4* MG -- 1.7 -- ANIONGAP 9 9 4* LABGLOM >90 >90 >90 CALCIUM 6.4* 6.7* 6.6* CAION -- -- 1.07* LACTACIDWB -- -- 0.6* Recent Labs 11/29/2391911/29/23201511/30/23 0758 TSH -- 9.13* -- AST 27 -- -- ALT 19 -- -- ALKPHOS 45 -- -- BILITOT <0.2 -- -- BILIDIR <0.2 -- -- POCGLU -- -- 79 ABG:No results found for: POCPH , PHART , PH , POCPCO2 , [id number] , PCO2 , POCPO2 , PO2ART , PO2 , POCHCO3 , VFJ6NGI , HCO3 , NBEA , PBEA , BEART , BE , THGBART , THB , MGG6LZZ , YKWQ0EST , G6WQFOUZ , O2SAT , FIO2 No results found for: SPECIAL Lab Results Component Value Date/Time CULTURE NO GROWTH 5 DAYS 11/25/2023 09:58 AM CULTURE NO GROWTH 5 DAYS 11/25/2023 09:58 AM Radiology: CTA ABDOMEN PELVIS W WO CONTRAST Result Date: 11/29/2023 1. No acute findings. Embolization coils in the right upper quadrant without appreciable arterial bleeding/active extravasation. No hyperdense fluid collections visualized in bowel loops on noncontrast exam. Interval improved thickening of the stomach and proximal duodenum, may reflect resolved hemorrhage or improved gastritis. 2. Redemonstration of diffuse subcutaneous soft tissue edema. 3. Redemonstration of pleural effusions in the lung bases. 4. Unchanged mild abdominal ascites. 5. Atherosclerotic vascular disease of the aorta and its branches without evidence of flow-limiting stenosis. CT SINUS WO CONTRAST Result Date: 11/29/2023 Chronic sinusitis involving the left maxillary sinus. Potential remote posttraumatic change of the left inferior orbital wall and correlation is needed. IR EMBOLIZATION HEMORRHAGE Result Date: 11/28/2023 Contrast extravasation via truncated duodenal side-branch GDA with successful coil embolization, as above. XR CHEST PORTABLE Result Date: 11/27/2023 Right mid and lower lung consolidation consistent with pneumonia. Trace left basilar effusion. XR CHEST PORTABLE Result Date: 11/25/2023 Layering right greater than left pleural effusions and bibasilar atelectasis. CTA ABDOMEN PELVIS W WO CONTRAST Result Date: 11/25/2023 1. No evidence of mesenteric ischemia or contrast extravasation. 2. Small bilateral pleural effusions greater on the right with right basilar atelectasis. 3. Small amount of free fluid in the pelvis and surrounding the liver. 4. Mild left hydronephrosis. 5. Diffuse wall thickening of the stomach possibly reflecting gastritis. Consider direct visualization. 6. Small fat containing umbilical hernia. 7. Diffuse anasarca. Physical Examination: Physical Exam Constitutional: Appearance: She is ill-appearing. She is not diaphoretic. HENT: Head: Normocephalic. Right Ear: External ear normal. Left Ear: External ear normal. Nose: No congestion. Mouth/Throat: Mouth: Mucous membranes are dry. Eyes: Pupils: Pupils are equal, round, and reactive to light. Cardiovascular: Rate and Rhythm: Normal rate and regular rhythm. Heart sounds: Murmur heard. Pulmonary: Comments: Diminished in bases Abdominal: General: There is no distension. Palpations: Abdomen is soft. Tenderness: There is no abdominal tenderness. There is no guarding. Musculoskeletal: Cervical back: Neck supple. Right lower leg: No edema. Left lower leg: No edema. Skin: General: Skin is dry. Capillary Refill: Capillary refill takes 2 to 3 seconds. Coloration: Skin is pale. Neurological: Mental Status: She is alert and oriented to person, place, and time. Motor: Weakness present. Psychiatric: Mood and Affect: Mood normal. Behavior: Behavior normal. Assessment: Hospital Problems Last Modified POA * (Principal) GI bleed 11/25/2023 Yes GIB (gastrointestinal bleeding) 11/25/2023 Yes Acute anemia 11/25/2023 Yes Chronic pain syndrome 11/25/2023 Yes Chronic respiratory failure with hypoxia (HCC) 11/25/2023 Yes Dependence on supplemental oxygen 11/25/2023 Yes Duodenal ulcer 11/25/2023 Yes Gastroesophageal reflux disease 11/25/2023 Yes Generalized anxiety disorder 11/25/2023 Yes Peripheral venous insufficiency 11/25/2023 Yes Sleep dysfunction with arousal disturbance 11/25/2023 Yes Tobacco user 11/25/2023 Yes Plan: Upper GI bleed with known duodenal ulcer. Appreciate GI recommendations. Continue PPI, IV fluids. N.p.o. at midnight. Plan for EGD 12/01/2023 Sinusitis Augmentin Hypotension adrenal insufficiency. Cortef, midodrine as needed Fibromyalgia Cymbalta Anxiety. BuSpar Hypothyroidism Synthroid 175 mcg. Increased from base dose of 150 mcg COPD continue inhalers No plans to advance further than clear liquid diet at this time until reevaluated by GI. PT/OT Low threshold for sending patient back to the ICU due to being unstable and concern for recurrence and upper GI bleed. Diana Joseph MD 11/30/2023 12:31 PM Critical care team - Resident sign-out to medicine service Date and time: 11/30/2023 10:16 AM Patient's name: Jenny Ewing Patient's account/billing number: [id number] Patient's Date of : 1950 Age: 73 y.o. Date of Admission: 11/25/2023 4:07 AM Length of stay during current admission: 5 Primary Care Physician: No primary care provider on file. Code Status: Full Code Mode of physician to physician communication: [x] Via telephone [] In person Date and time of sign-out: 11/30/2023 10:16 AM Accepting Internal Medicine CAMPAIGN ANALYST: Karime Keane Accepting Medicine team: [facility] Accepting team's attending: Dr. Joseph Patient's current ICU Bed: 3021 Patient's assigned bed on floor: 2003 [] Med-Surg Monitored [x] Step-down [] Psychiatry ICU [] Psych floor Reason for ICU admission: Hypotension ICU course summary: 73-year-old female, GI bleed, initially hypotensive, required 2 units of blood for hemoglobin of 6.0. Follow-up hemoglobin was 8.3. Patient's blood pressure responded, was 100 systolic today in the ICU. At bedside evaluation is hemodynamically stable, not in any acute distress. No active bleed noted on CTA completed. Pending intervention at the discretion of gastroenterology. Appropriate for transfer to stepdown given hemodynamic stability lack of vasoactive medications and improving hemoglobin. Procedures during patient's ICU stay: N/A Current Vitals: BP (!) 97/55 Pulse 72 Temp 97.8 F (36.6 C) (Axillary) Resp 15 Ht 1.6 m (5' 3 ) Comment: per patient Wt 81.6 kg (180 lb) SpO2 (!) 89% BMI 31.89 kg/m Consults: 1. GI Assessment: Patient Active Problem List Diagnosis Date Noted GIB (gastrointestinal bleeding) 11/25/2023 GI bleed 11/25/2023 Acute anemia 11/24/2023 Duodenal ulcer 11/24/2023 Tobacco user 11/17/2023 Chronic respiratory failure with hypoxia (HCC) 08/13/2023 Arthritis of both knees 01/06/2023 Chronic pain syndrome 01/06/2023 Dependence on supplemental oxygen 01/06/2023 Gastroesophageal reflux disease 01/06/2023 Generalized anxiety disorder 01/06/2023 Peripheral venous insufficiency 01/06/2023 Sleep dysfunction with arousal disturbance 01/06/2023 Recommended Follow-up: F/u h/h Above mentioned assessment and plan was discussed by me with the admitting medicine resident. The medicine team assigned to the patient by medicine admitting resident will be following up the patient from now onwards on the floor. Gino Quarles Emergency Medicine Resident [facility] 11/30/2023 10:16 AM INTENSIVE CARE UNIT Resident Physician Progress Note Patient - Jenny Ewing Date of Admission - 11/25/2023 4:07 AM Date of Evaluation - 11/30/2023 Room and Bed Number - 3021/3021-01 Hospital Day - 5 SUBJECTIVE: HISTORY OF PRESENT ILLNESS: 73-year-old female, admitted to medical floors on 11/24 for GI bleed. She had maroon and black stools. Her hemoglobin was down to 6.0. She received 2 units of blood. EGD performed on 11/24 showed a large duodenal ulcer. Gastroenterology was consulted, PPI drip started. IR consulted on 11/26, embolization of the gastroduodenal artery with 3 coils placed. Patient had episodes of hypotension, not requiring blood pressure support and she was mentating normally however medical floors were not comfortable with the low pressure, maps in the mid 50s to low 60s. Blood pressure did not appear to respond to resuscitation with blood, fluids, midodrine, she was transferred to the ICU for further management and continued care. OVERNIGHT EVENTS: No acute events overnight. Hemodynamically stable. Blood pressures are soft however patient is not complaining of any pain. Systolics maintained greater than 85. No fevers, no other symptoms on bedside evaluation. OBJECTIVE: VITAL SIGNS: Patient Vitals for the past 8 hrs: BP Temp Temp src Pulse Resp SpO2 11/30/23 0630 (!) 93/53 -- -- -- -- -- 11/30/23 0600 (!) 85/57 -- -- 73 17 -- 11/30/23 0530 (!) 101/52 -- -- 80 16 92 % 11/30/23 0500 (!) / -- -- 73 13 91 % 11/30/23 0430 (!) 89/ 98.4 F (36.9 C) Oral 73 17 92 % 11/30/23 0426 (!) 93/ 98.5 F (36.9 C) Oral 75 18 91 % 11/30/23 0420 (!) 93/57 98.5 F (36.9 C) Oral 70 14 94 % 11/30/23 0400 (!) 81/52 98.7 F (37.1 C) Oral 74 14 92 % 11/30/23 0330 (!) -- -- 73 17 92 % 11/30/23 0305 (!) 98.9 F (37.2 C) Oral 77 16 92 % 11/30/23 0300 (!) -- -- 75 14 93 % 11/30/23 0249 (!) 87/49 98.8 F (37.1 C) Oral 76 14 92 % 11/30/23 0200 (!) -- -- 83 21 93 % 11/30/23 0100 (!) 89 -- -- 91 13 94 % Last Body weight: Wt Readings from Last 3 Encounters: 11/29/23 81.6 kg (180 lb) Body Mass Index : Body mass index is 31.89 kg/m . Tmax over 24 hours: Temp (24hrs), Av.2 F (36.8 C), Min:97.3 F (36.3 C), Max:99.3 F (37.4 C) Ins/Outs: In: 3099.3 [I.V.:1260.9; Blood:551] Out: 500 [Urine:500] PHYSICAL EXAM: Constitutional: Appears well, no distress EENT: PERRLA, EOMI, sclera clear, anicteric, oropharynx clear, no lesions, neck supple with midline trachea. Neck: Supple, symmetrical, trachea midline, no adenopathy, thyroid symmetric, no jvd skin normal Respiratory: clear to auscultation, no wheezes or rales and unlabored breathing. No intercostal tenderness Cardiovascular: regular rate and rhythm, normal S1, S2, no murmur noted and 2+ pulses throughout Abdomen: soft, nontender, nondistended, no masses or organomegaly Extremities: peripheral pulses normal, no pedal edema, no clubbing or cyanosis MEDICATIONS: Scheduled Meds: doxepin 10 mg Oral Nightly amoxicillin-clavulanate 1 tablet Oral 2 times per day fluticasone 1 puff Inhalation BID RT ipratropium 0.5 mg-albuterol 2.5 mg 1 Dose Inhalation TID RT Hydrocerin Topical BID sodium chloride flush 5-40 mL IntraVENous 2 times per day sodium chloride 1,000 mL IntraVENous Once baclofen 10 mg Oral BID WC busPIRone 15 mg Oral BID WC busPIRone 30 mg Oral Nightly DULoxetine 40 mg Oral Daily hydrocortisone 7.5 mg Oral QAM AC hydrocortisone 5 mg Oral Lunch levothyroxine 150 mcg Oral QAM AC potassium chloride 40 mEq Oral Once Continuous Infusions: sodium chloride sodium chloride sodium chloride pantoprazole 8 mg/hr (11/30/23551) sodium chloride sodium chloride sodium chloride Stopped (11/30/23519) PRN Meds: sodium chloride, , PRN sodium chloride, , PRN LORazepam, 0.5 mg, Q4H PRN sodium chloride, , PRN loperamide, 2 mg, 4x Daily PRN sodium chloride, , PRN midodrine, 10 mg, TID PRN melatonin, 3 mg, Nightly PRN potassium chloride, 40 mEq, PRN Or potassium alternative oral replacement, 40 mEq, PRN Or potassium chloride, 10 mEq, PRN magnesium sulfate, 1,000 mg, PRN sodium chloride, , PRN ondansetron, 4 mg, Q8H PRN Or ondansetron, 4 mg, Q6H PRN acetaminophen, 650 mg, Q6H PRN Or acetaminophen, 650 mg, Q6H PRN fentanNYL, 25 mcg, Q2H PRN albuterol sulfate HFA, 2 puff, Q6H PRN hypromellose, 2 drop, Q6H PRN sodium chloride, 1 spray, PRN traMADol, 100 mg, Q6H PRN SUPPORT DEVICES: [] Ventilator [] BIPAP [] Nasal Cannula [x] Room Air Additional Respiratory Assessments Pulse: 73 Respirations: 17 SpO2: 92 % No results found for: IFIO2 , MODE , SETTIDVOL , SETPEEP No results found for: PH , PCO2 , PO2 , HCO3 , O2SAT DATA: Complete Blood Count: Recent Labs 11/29/2391911/29/23 1608 11/29/23201511/30/2320311/30/23 07 WBC 12.2* -- -- 8.7 -- RBC 2.02* -- -- 2.02* -- HGB 6.2* < > 7.8* 6.2* 8.3* HCT 20.7* < > 23.5* 19.8* 26.2* MCV 102.5 -- -- 98.0 -- MCH 30.7 -- -- 30.7 -- MCHC 30.0 -- -- 31.3 -- RDW 19.0* -- -- 17.1* -- PLT 245 -- -- 171 -- MPV 10.8 -- -- 10.3 -- < > = values in this interval not displayed. Last 3 Blood Glucose: Recent Labs 11/28/2333311/29/2391911/30/23203 GLUCOSE 88 210* 83 PT/INR: Lab Results Component Value Date/Time PROTIME 15.5 11/25/2023 05:02 AM INR 1.2 11/25/2023 05:02 AM PTT: Lab Results Component Value Date/Time APTT 25.5 11/25/2023 05:02 AM Basic Metabolic Profile: Recent Labs 11/28/2333311/29/2391911/30/23203 NA 135* 135* 138 K 3.7 3.3* 4.4 CL 105 103 108* CO2 21 23 26 BUN 10 9 12 CREATININE 0.3* 0.4* 0.4* GLUCOSE 88 210* 83 MG -- 1.7 -- Liver Function: Recent Labs 11/29/23919 ALT 19 AST 27 ALKPHOS 45 BILITOT <0.2 Magnesium: Lab Results Component Value Date/Time MG 1.7 11/29/2023 09:20 AM MG 1.9 11/27/2023 03:54 AM MG 1.5 11/26/2023 03:07 AM Phosphorus: No results found for: PHOS Ionized Calcium: Lab Results Component Value Date/Time CAION 1.07 11/30/2023 02:04 AM Urinalysis: No results found for: NITRU , COLORU , PHUR , LABCAST , WBCUA , RBCUA , MUCUS , TRICHOMONAS , YEAST , BACTERIA , CLARITYU , SPECGRAV , LEUKOCYTESUR , UROBILINOGEN , BILIRUBINUR , BLOODU , GLUCOSEU , KETUA , AMORPHOUS HgBA1c: No results found for: LABA1C TSH: Lab Results Component Value Date/Time TSH 9.13 11/29/2023 08:16 PM Lactic Acid: No results found for: LACTA Troponin: No results for input(s): TROPONINI in the last 72 hours. Other Labs: Results for orders placed or performed during the hospital encounter of 11/25/23 Culture, Blood 1 Specimen: Blood Result Value Ref Range Specimen Description .BLOOD Special Requests Culture NO GROWTH 4 DAYS Culture, Blood 2 Specimen: Blood Result Value Ref Range Specimen Description .BLOOD Special Requests Culture NO GROWTH 4 DAYS Protime-INR Result Value Ref Range Protime 15.5 (H) 11.7 - 14.9 sec INR 1.2 APTT Result Value Ref Range APTT 25.5 23.0 - 36.5 sec Iron and TIBC Result Value Ref Range Iron 80 37 - 145 ug/dL TIBC 205 (L) 250 - 450 ug/dL Iron % Saturation 39 20 - 55 % UIBC 125 112 - 347 ug/dL Hemoglobin and Hematocrit Result Value Ref Range Hemoglobin 6.6 (LL) 11.9 - 15.1 g/dL Hematocrit 20.3 (L) 36.3 - 47.1 % Basic Metabolic Panel w/ Reflex to MG Result Value Ref Range Sodium 138 136 - 145 mmol/L Potassium 3.6 (L) 3.7 - 5.3 mmol/L Chloride 108 (H) 98 - 107 mmol/L CO2 23 20 - 31 mmol/L Anion Gap 7 (L) 9 - 16 mmol/L Glucose 81 74 - 99 mg/dL BUN 13 8 - 23 mg/dL Creatinine 0.4 (L) 0.50 - 0.90 mg/dL Est, Glom Filt Rate >90 >60 mL/min/1.73m2 Calcium 6.6 (L) 8.6 - 10.4 mg/dL Lactate, Sepsis Result Value Ref Range Lactic Acid, Sepsis, Whole Blood 0.7 0.5 - 1.9 mmol/L Lactate, Sepsis Result Value Ref Range Lactic Acid, Sepsis, Whole Blood 0.6 0.5 - 1.9 mmol/L CBC with Auto Differential Result Value Ref Range WBC 9.5 3.5 - 11.3 k/uL RBC 1.95 (L) 3.95 - 5.11 m/uL Hemoglobin 5.8 (LL) 11.9 - 15.1 g/dL Hematocrit 19.9 (L) 36.3 - 47.1 % MCV 102.1 82.6 - 102.9 fL MCH 29.7 25.2 - 33.5 pg MCHC 29.1 28.4 - 34.8 g/dL RDW 19.9 (H) 11.8 - 14.4 % Platelets 186 138 - 453 k/uL MPV 11.5 8.1 - 13.5 fL NRBC Automated 0.0 0.0 per 100 WBC RBC Morphology ANISOCYTOSIS PRESENT Neutrophils % 73 (H) 36 - 65 % Lymphocytes % 18 (L) 24 - 43 % Monocytes % 8 3 - 12 % Eosinophils % 1 1 - 4 % Basophils % 0 0 - 2 % Immature Granulocytes % 1 (H) 0 % Neutrophils Absolute 6.93 1.50 - 8.10 k/uL Lymphocytes Absolute 1.67 1.10 - 3.70 k/uL Monocytes Absolute 0.72 0.10 - 1.20 k/uL Eosinophils Absolute 0.05 0.00 - 0.44 k/uL Basophils Absolute 0.03 0.00 - 0.20 k/uL Immature Granulocytes Absolute 0.06 0.00 - 0.30 k/uL Lactate, Sepsis Result Value Ref Range Lactic Acid, Sepsis, Whole Blood 0.9 0.5 - 1.9 mmol/L Hemoglobin and Hematocrit Result Value Ref Range Hemoglobin 8.5 (L) 11.9 - 15.1 g/dL Hematocrit 24.6 (L) 36.3 - 47.1 % Hemoglobin and Hematocrit Result Value Ref Range Hemoglobin 8.1 (L) 11.9 - 15.1 g/dL Hematocrit 26.3 (L) 36.3 - 47.1 % Hemoglobin and Hematocrit Result Value Ref Range Hemoglobin 9.2 (L) 11.9 - 15.1 g/dL Hematocrit 28.6 (L) 36.3 - 47.1 % Basic Metabolic Panel w/ Reflex to MG Result Value Ref Range Sodium 140 136 - 145 mmol/L Potassium 3.4 (L) 3.7 - 5.3 mmol/L Chloride 112 (H) 98 - 107 mmol/L CO2 17 (L) 20 - 31 mmol/L Anion Gap 11 9 - 16 mmol/L Glucose 82 74 - 99 mg/dL BUN 9 8 - 23 mg/dL Creatinine 0.3 (L) 0.50 - 0.90 mg/dL Est, Glom Filt Rate >90 >60 mL/min/1.73m2 Calcium 6.3 (L) 8.6 - 10.4 mg/dL Hemoglobin and Hematocrit Result Value Ref Range Hemoglobin 8.6 (L) 11.9 - 15.1 g/dL Hematocrit 26.7 (L) 36.3 - 47.1 % Magnesium Result Value Ref Range Magnesium 1.5 (L) 1.6 - 2.4 mg/dL Hemoglobin and Hematocrit Result Value Ref Range Hemoglobin 8.1 (L) 11.9 - 15.1 g/dL Hematocrit 24.6 (L) 36.3 - 47.1 % Hemoglobin and Hematocrit Result Value Ref Range Hemoglobin 7.7 (L) 11.9 - 15.1 g/dL Hematocrit 24.3 (L) 36.3 - 47.1 % Hemoglobin and Hematocrit Result Value Ref Range Hemoglobin 7.2 (L) 11.9 - 15.1 g/dL Hematocrit 22.0 (L) 36.3 - 47.1 % Basic Metabolic Panel w/ Reflex to MG Result Value Ref Range Sodium 134 (L) 136 - 145 mmol/L Potassium 3.4 (L) 3.7 - 5.3 mmol/L Chloride 105 98 - 107 mmol/L CO2 22 20 - 31 mmol/L Anion Gap 7 (L) 9 - 16 mmol/L Glucose 83 74 - 99 mg/dL BUN 7 (L) 8 - 23 mg/dL Creatinine 0.4 (L) 0.50 - 0.90 mg/dL Est, Glom Filt Rate >90 >60 mL/min/1.73m2 Calcium 6.3 (L) 8.6 - 10.4 mg/dL Hemoglobin and Hematocrit Result Value Ref Range Hemoglobin 7.2 (L) 11.9 - 15.1 g/dL Hematocrit 23.0 (L) 36.3 - 47.1 % Hemoglobin and Hematocrit Result Value Ref Range Hemoglobin 5.9 (LL) 11.9 - 15.1 g/dL Hematocrit 18.0 (L) 36.3 - 47.1 % Magnesium Result Value Ref Range Magnesium 1.9 1.6 - 2.4 mg/dL Hemoglobin and Hematocrit Result Value Ref Range Hemoglobin 5.7 (LL) 11.9 - 15.1 g/dL Hematocrit 17.9 (L) 36.3 - 47.1 % Basic Metabolic Panel w/ Reflex to MG Result Value Ref Range Sodium 135 (L) 136 - 145 mmol/L Potassium 3.7 3.7 - 5.3 mmol/L Chloride 105 98 - 107 mmol/L CO2 21 20 - 31 mmol/L Anion Gap 9 9 - 16 mmol/L Glucose 88 74 - 99 mg/dL BUN 10 8 - 23 mg/dL Creatinine 0.3 (L) 0.50 - 0.90 mg/dL Est, Glom Filt Rate >90 >60 mL/min/1.73m2 Calcium 6.4 (L) 8.6 - 10.4 mg/dL CBC with Auto Differential Result Value Ref Range WBC 12.2 (H) 3.5 - 11.3 k/uL RBC 2.02 (L) 3.95 - 5.11 m/uL Hemoglobin 6.2 (LL) 11.9 - 15.1 g/dL Hematocrit 20.7 (L) 36.3 - 47.1 % MCV 102.5 82.6 - 102.9 fL MCH 30.7 25.2 - 33.5 pg MCHC 30.0 28.4 - 34.8 g/dL RDW 19.0 (H) 11.8 - 14.4 % Platelets 245 138 - 453 k/uL MPV 10.8 8.1 - 13.5 fL NRBC Automated 0.0 0.0 per 100 WBC RBC Morphology ANISOCYTOSIS PRESENT Neutrophils % 88 (H) 36 - 65 % Lymphocytes % 7 (L) 24 - 43 % Monocytes % 4 3 - 12 % Eosinophils % 0 (L) 1 - 4 % Basophils % 0 0 - 2 % Immature Granulocytes % 1 (H) 0 % Neutrophils Absolute 10.71 (H) 1.50 - 8.10 k/uL Lymphocytes Absolute 0.79 (L) 1.10 - 3.70 k/uL Monocytes Absolute 0.53 0.10 - 1.20 k/uL Eosinophils Absolute 0.04 0.00 - 0.44 k/uL Basophils Absolute 0.03 0.00 - 0.20 k/uL Immature Granulocytes Absolute 0.07 0.00 - 0.30 k/uL Basic Metabolic Panel w/ Reflex to MG Result Value Ref Range Sodium 135 (L) 136 - 145 mmol/L Potassium 3.3 (L) 3.7 - 5.3 mmol/L Chloride 103 98 - 107 mmol/L CO2 23 20 - 31 mmol/L Anion Gap 9 9 - 16 mmol/L Glucose 210 (H) 74 - 99 mg/dL BUN 9 8 - 23 mg/dL Creatinine 0.4 (L) 0.50 - 0.90 mg/dL Est, Glom Filt Rate >90 >60 mL/min/1.73m2 Calcium 6.7 (L) 8.6 - 10.4 mg/dL Magnesium Result Value Ref Range Magnesium 1.7 1.6 - 2.4 mg/dL Hemoglobin and Hematocrit Result Value Ref Range Hemoglobin 6.0 (LL) 11.9 - 15.1 g/dL Hematocrit 18.8 (L) 36.3 - 47.1 % CBC with Auto Differential Result Value Ref Range WBC 8.7 3.5 - 11.3 k/uL RBC 2.02 (L) 3.95 - 5.11 m/uL Hemoglobin 6.2 (LL) 11.9 - 15.1 g/dL Hematocrit 19.8 (L) 36.3 - 47.1 % MCV 98.0 82.6 - 102.9 fL MCH 30.7 25.2 - 33.5 pg MCHC 31.3 28.4 - 34.8 g/dL RDW 17.1 (H) 11.8 - 14.4 % Platelets 171 138 - 453 k/uL MPV 10.3 8.1 - 13.5 fL NRBC Automated 0.0 0.0 per 100 WBC RBC Morphology ANISOCYTOSIS PRESENT Neutrophils % 70 (H) 36 - 65 % Lymphocytes % 19 (L) 24 - 43 % Monocytes % 8 3 - 12 % Eosinophils % 1 1 - 4 % Basophils % 0 0 - 2 % Immature Granulocytes % 1 (H) 0 % Neutrophils Absolute 6.10 1.50 - 8.10 k/uL Lymphocytes Absolute 1.67 1.10 - 3.70 k/uL Monocytes Absolute 0.73 0.10 - 1.20 k/uL Eosinophils Absolute 0.09 0.00 - 0.44 k/uL Basophils Absolute 0.03 0.00 - 0.20 k/uL Immature Granulocytes Absolute 0.06 0.00 - 0.30 k/uL Basic Metabolic Panel w/ Reflex to MG Result Value Ref Range Sodium 138 136 - 145 mmol/L Potassium 4.4 3.7 - 5.3 mmol/L Chloride 108 (H) 98 - 107 mmol/L CO2 26 20 - 31 mmol/L Anion Gap 4 (L) 9 - 16 mmol/L Glucose 83 74 - 99 mg/dL BUN 12 8 - 23 mg/dL Creatinine 0.4 (L) 0.50 - 0.90 mg/dL Est, Glom Filt Rate >90 >60 mL/min/1.73m2 Calcium 6.6 (L) 8.6 - 10.4 mg/dL Hemoglobin and Hematocrit Result Value Ref Range Hemoglobin 7.8 (L) 11.9 - 15.1 g/dL Hematocrit 23.5 (L) 36.3 - 47.1 % Hepatic Function Panel Result Value Ref Range Albumin 2.1 (L) 3.5 - 5.2 g/dL Alkaline Phosphatase 45 35 - 104 U/L ALT 19 10 - 35 U/L AST 27 10 - 35 U/L Total Bilirubin <0.2 0.00 - 1.20 mg/dL Bilirubin, Direct <0.2 0.00 - 0.30 mg/dL Bilirubin, Indirect Can not be calculated 0.0 - 1.0 mg/dL Total Protein 3.5 (L) 6.6 - 8.7 g/dL Globulin 1.4 g/dL Albumin/Globulin Ratio 2.0 1.0 - 2.5 TSH with Reflex Result Value Ref Range TSH 9.13 (H) 0.27 - 4.20 uIU/mL Procalcitonin Result Value Ref Range Procalcitonin 0.05 <0.09 ng/mL Calcium, Ionized Result Value Ref Range Calcium, Ionized 1.07 (L) 1.13 - 1.33 mmol/L T4, Free Result Value Ref Range T4 Free 1.3 0.92 - 1.68 ng/dL Lactic Acid Result Value Ref Range Lactic Acid, Whole Blood 0.6 (L) 0.7 - 2.1 mmol/L Hemoglobin and Hematocrit Result Value Ref Range Hemoglobin 8.3 (L) 11.9 - 15.1 g/dL Hematocrit 26.2 (L) 36.3 - 47.1 % POC Glucose Fingerstick Result Value Ref Range POC Glucose 79 65 - 105 mg/dL TYPE AND SCREEN Result Value Ref Range Blood Bank Sample Expiration 11/28/2023,2359 Arm Band Number [id number] ABO/Rh A POSITIVE Antibody Screen NEGATIVE Unit Number [id number] Component Leukocyte Reduced Red Cell Unit Divison 00 Dispense Status Blood Bank TRANSFUSED Unit Issue Date/Time Product Code Blood Bank [id number] Blood Bank Unit Type and Rh A POS Blood Bank ISBT Product Blood Type 6200 Blood Bank Blood Product Expiration Date Transfusion Status OK TO TRANSFUSE Crossmatch Result COMPATIBLE Unit Number [id number] Component Leukocyte Reduced Red Cell Unit Divison 00 Dispense Status Blood Bank TRANSFUSED Unit Issue Date/Time [id number] Product Code Blood Bank [id number] Blood Bank Unit Type and Rh A POS Blood Bank ISBT Product Blood Type 6200 Blood Bank Blood Product Expiration Date Transfusion Status OK TO TRANSFUSE Crossmatch Result COMPATIBLE Unit Number [id number] Component Leukocyte Reduced Red Cell Unit Divison Dispense Status Blood Bank TRANSFUSED Unit Issue Date/Time [id number] Product Code Blood Bank [id number] Blood Bank Unit Type and Rh A POS Blood Bank ISBT Product Blood Type 6200 Blood Bank Blood Product Expiration Date Transfusion Status OK TO TRANSFUSE Crossmatch Result COMPATIBLE TYPE AND SCREEN Result Value Ref Range Blood Bank Sample Expiration 12/02/2023,2359 Arm Band Number [id number] ABO/Rh A POSITIVE Antibody Screen NEGATIVE Unit Number [id number] Component Leukocyte Reduced Red Cell Unit Divison 00 Dispense Status Blood Bank TRANSFUSED Unit Issue Date/Time [id number] Product Code Blood Bank [id number] Blood Bank Unit Type and Rh A POS Blood Bank ISBT Product Blood Type 6200 Blood Bank Blood Product Expiration Date Transfusion Status OK TO TRANSFUSE Crossmatch Result COMPATIBLE Unit Number [id number] Component Leukocyte Reduced Red Cell Unit Divison 00 Dispense Status Blood Bank TRANSFUSED Unit Issue Date/Time [id number] Product Code Blood Bank [id number] Blood Bank Unit Type and Rh A POS Blood Bank ISBT Product Blood Type 6200 Blood Bank Blood Product Expiration Date Transfusion Status OK TO TRANSFUSE Crossmatch Result COMPATIBLE Unit Number [id number] Component Leukocyte Reduced Red Cell Unit Divison 00 Dispense Status Blood Bank ISSUED Unit Issue Date/Time [id number] Product Code Blood Bank [id number] Blood Bank Unit Type and Rh A POS Blood Bank ISBT Product Blood Type 6200 Blood Bank Blood Product Expiration Date Transfusion Status OK TO TRANSFUSE Crossmatch Result COMPATIBLE Radiology/Imaging: CTA ABDOMEN PELVIS W WO CONTRAST Final Result 1. No acute findings. Embolization coils in the right upper quadrant without appreciable arterial bleeding/active extravasation. No hyperdense fluid collections visualized in bowel loops on noncontrast exam. Interval improved thickening of the stomach and proximal duodenum, may reflect resolved hemorrhage or improved gastritis. 2. Redemonstration of diffuse subcutaneous soft tissue edema. 3. Redemonstration of pleural effusions in the lung bases. 4. Unchanged mild abdominal ascites. 5. Atherosclerotic vascular disease of the aorta and its branches without evidence of flow-limiting stenosis. CT SINUS WO CONTRAST Final Result Chronic sinusitis involving the left maxillary sinus. Potential remote posttraumatic change of the left inferior orbital wall and correlation is needed. IR EMBOLIZATION HEMORRHAGE Final Result Contrast extravasation via truncated duodenal side-branch GDA with successful coil embolization, as above. XR CHEST PORTABLE Final Result Right mid and lower lung consolidation consistent with pneumonia. Trace left basilar effusion. XR CHEST PORTABLE Final Result Layering right greater than left pleural effusions and bibasilar atelectasis. CTA ABDOMEN PELVIS W WO CONTRAST Final Result 1. No evidence of mesenteric ischemia or contrast extravasation. 2. Small bilateral pleural effusions greater on the right with right basilar atelectasis. 3. Small amount of free fluid in the pelvis and surrounding the liver. 4. Mild left hydronephrosis. 5. Diffuse wall thickening of the stomach possibly reflecting gastritis. Consider direct visualization. 6. Small fat containing umbilical hernia. 7. Diffuse anasarca. ASSESSMENT: Patient Active Problem List Diagnosis Date Noted GIB (gastrointestinal bleeding) 11/25/2023 GI bleed 11/25/2023 Acute anemia 11/24/2023 Duodenal ulcer 11/24/2023 Tobacco user 11/17/2023 Chronic respiratory failure with hypoxia (HCC) 08/13/2023 Arthritis of both knees 01/06/2023 Chronic pain syndrome 01/06/2023 Dependence on supplemental oxygen 01/06/2023 Gastroesophageal reflux disease 01/06/2023 Generalized anxiety disorder 01/06/2023 Peripheral venous insufficiency 01/06/2023 Sleep dysfunction with arousal disturbance 01/06/2023 PLAN: 73-year-old female, transferred from the floors for low blood pressures, not requiring any pressors, hemodynamically stable currently. Pending intervention per gastroenterology for low hemoglobin. Neuro Patient is not sedated, she is alert, oriented, not in any acute distress. Cardio -Vitals blood pressure 97/55, heart rate 72, respirations 15, MAP of 69 No current pressors No active cardiac issues. Pulmonary No active pulmonary issues. Renal Electrolytes this a.m. within normal limits. Glucose controlled at 79. Creatinine is 0.4. Infectious -White blood cell count within normal limits, patient is on Augmentin for presumptive GI bleed. Heme/Onc -Patient was transfused 2 units over the past 12 to 24 hours, hemoglobin this morning was 8.3, hematocrit 26.2. Stable. Patient has good capillary refill. Gastrointestinal -Diet: N.p.o. Endocrine Blood sugar controlled, last glucose 79, not on any diabetes medications. Disposition: Patient is appropriate for transfer to the medical center, continued evaluation By GI. DISPOSITION: [] To remain ICU: [x] OK for out of ICU from Critical Care standpoint [facility].A.S.[facility]. [facility]. [facility].U.G.S. B.I.D. Feeding Diet: Diet NPO Exceptions are: Sips of Water with Meds Fluids: IV piggyback fluids Family: Not updated Analgesic: Not indicated Sedation: None Thrombo-prophylaxis: Not indicated due to active bleed Mobility: Up as tolerated Heads up: 30 degrees Ulcer prophylaxis: [x] PPI Agent, [] [id number], [] Sucralfate, [] Other: Glycemic control: Controlled Spontaneous breathing trial: Not indicated Bowel regimen/urine output: Continue to monitor Indwelling catheter/lines: Bilateral peripheral IV De-escalation: Transfer to the medical center Gino Quarles DO Emergency Medicine Resident 11/30/23 8:15 AM Associated attestation - Arnaud Bryant MD - 11/30/2023 8:08 PM EDT Attending Physician Statement I have discussed the case of Jenny Ewing, including pertinent history and exam findings with the resident/fellow/medical student/CAMPAIGN ANALYST/PA. I have seen and examined the patient and the jiménez elements of the encounter have been performed by me. I agree with the assessment, plan and orders as documented by the resident/fellow/medical student/CAMPAIGN ANALYST/PA With changes made to the note as needed. Pt was seen during rounds. Review of Systems: In addition to the pertinent positives and negatives as stated within HPI and the review of systems as documented in their notes, all other systems were reviewed when able to and are reported negative. Please see my attestation for the H&P Arnaud Bryant MD 11/30/2023 8:08 PM [facility] Gastroenterology Progress Note Jenny Ewing is a 73 y.o. female patient. Hospitalization Day:5 Chief consult reason: Black colored stools Subjective: Pt seen and examined. Pt had hypotension and rectal bleeding yesterday. CTA was unremarkable for active bleeding. Overnight, pt had 2 more episodes of melena. Hgb dipped to 6.2-7.8-6.2-8.3 g/dL after 2 uPRBC's PPI drip infusing Pt denies any abdominal pain, nausea or vomting VITALS: BP (!) 93/53 Pulse 73 Temp 98.4 F (36.9 C) (Oral) Resp 17 Ht 1.6 m (5' 3 ) Comment: per patient Wt 81.6 kg (180 lb) SpO2 92% BMI 31.89 kg/m TEMPERATURE: Current - Temp: 98.4 F (36.9 C); Max - Temp Av.2 F (36.8 C) Min: 97.3 F (36.3 C) Max: 99.3 F (37.4 C) Physical Assessment: General appearance: alert, cooperative and no distress Mental Status: oriented to person, place and time and normal affect Lungs: clear to auscultation bilaterally, normal effort Heart: regular rate and rhythm, no murmur Abdomen: soft, nontender, nondistended, normal bowel sounds, no masses, hepatomegaly, splenomegaly Extremities: no edema, redness, tenderness in the calves Skin: no gross lesions, rashes, induration Data Review: Labs and Imaging: CBC: Recent Labs 11/29/23 0911/29/23 1608 11/29/23 2016 11/30/23 0204 11/30/23 0730 WBC 12.2* -- -- 8.7 -- HGB 6.2* 6.0* 7.8* 6.2* 8.3* MCV 102.5 -- -- 98.0 -- RDW 19.0* -- -- 17.1* -- PLT 245 -- -- 171 -- ANEMIA STUDIES: No results for input(s): TIBC , FERRITIN , [id number] , FOLATE , OCCULTBLD in the last 72 hours. Invalid input(s): LABIRON BMP: Recent Labs 11/28/23 0334 11/29/2391911/30/23 0204 NA 135* 135* 138 K 3.7 3.3* 4.4 CL 105 103 108* CO2 21 23 26 BUN 10 9 12 CREATININE 0.3* 0.4* 0.4* GLUCOSE 88 210* 83 CALCIUM 6.4* 6.7* 6.6* MG -- 1.7 -- LFTS: Recent Labs 11/29/23919 ALKPHOS 45 ALT 19 AST 27 BILITOT <0.2 BILIDIR <0.2 Amylase/Lipase and Ammonia: No results for input(s): AMYLASE , LIPASE , AMMONIA in the last 72 hours. Acute Hepatitis Panel: No results found for: HEPBSAG , HEPCAB , HEPBIGM , HEPAIGM HCV Genotype: No components found for: HEPATITISCGENOTYPE HCV Quantitative: No results found for: HCVQNT LIVER WORK UP: AFP No results found for: AFP Alpha 1 antitrypsin No results found for: A1A CYNTHIA No results found for: CYNTHIA AMA No results found for: MITOAB ASMA No results found for: SMOOTHMUSCAB PT/INR No results for input(s): PROTIME , INR in the last 72 hours. Cancer Markers: CEA: No results for input(s): CEA in the last 72 hours. Ca 125: No results for input(s): CA125 in the last 72 hours. Ca 19-9: Invalid input(s): CA19-9 AFP: No results for input(s): AFP in the last 72 hours. Lactic acid:Invalid input(s): LACTIC ACID Radiology Review: No results found. Principal Problem: GI bleed Active Problems: GIB (gastrointestinal bleeding) Acute anemia Chronic pain syndrome Chronic respiratory failure with hypoxia (HCC) Dependence on supplemental oxygen Duodenal ulcer Gastroesophageal reflux disease Generalized anxiety disorder Peripheral venous insufficiency Sleep dysfunction with arousal disturbance Tobacco user Resolved Problems: * No resolved hospital problems. * GI Impression: Large duodenal ulcer secondary to NSAID overuse for chronic pain management s/p X tack stitch and Hemospray powder application done by Dr. Ugarte on 11/25/202311/27-rebleeding, hypotension, followed by negative CTA 11/28-ongoing melena overnight, transfused, Hgb 8.3 g/dL Plan and Recommendations: Will plan for repeat EGD Thursday in the OR [facility] [place] Monitor for active GI bleeding Trend Hgb. Transfuse PRN AM labs Cont PPI drip Will follow This plan was formulated in collaboration with Dr. Phill SOLORZANO Thank you for allowing me to participate in the care of your patient. Please feel free to contact me with any questions or concerns. [facility], [facility] - [facility] [phone] 11/30/2023 7:54 AM Estimated time of 20 mins reviewing chart, assessing patient and formulating plan of care This note was created with the assistance of a speech-recognition program. Although the intention is to generate a document that actually reflects the content of the visit, no guarantees can be provided that every mistake has been identified and corrected by editing. Attending Physician Statement I have discussed the care of Jenny Ewing and I have examined the patient myselft and taken ros and hpi , including pertinent history and exam findings, with the author of this note . I have reviewed the jiménez elements of all parts of the encounter with the nurse practitioner/resident. I agree with the assessment, plan and orders as documented by the above health care provider The patient already has duodenal sidebranch of the GDA being coiled She dropped her hemoglobin will monitor if she continues to bleed we will repeat her EGD Continue PPI H&H monitoring Advance Care Planning Advance Care Planning Inpatient Note [facility] Department Today's Date: 11/29/2023 Unit: [facility]- MICU Received request from HealthCare Provider. Upon review of chart and communication with care team, patient's decision making abilities are not in question.. Patient was/were present in the room during visit. Goals of ACP Conversation: Discuss advance care planning documents Health Care Decision Makers: No healthcare decision makers have been documented. Click here to complete HealthCare Decision Makers including selection of the Healthcare Decision Maker Relationship (ie Primary ) Summary: Completed New Documents Advance Care Planning Documents (Patient Wishes): Healthcare Power of [employer]/Advance Directive Appointment of Health Care Agent Assessment: Jenny requested to have her POA documents completed and shared with her family and providers. She is in pain, but coping. She designated her daughter Pearl Sal as her POA. Interventions: Assisted in the completion of documents according to patient's wishes at this time Care Preferences Communicated: No Outcomes/Plan: New advance directive completed. 11/29/232051 Encounter Summary Encounter Overview/Reason Advance Care Planning Service Provided For Patient Referral/Consult From Nurse Support System Family members;Children Last Encounter 11/29/23 Complexity of Encounter Moderate Begin Time 1951 End Time 2027 Total Time Calculated 36 min Advance Care Planning Type Completed AD/ACP document(s) Assessment/Intervention/Outcome Assessment Coping;Calm Intervention Active listening;Explored/Affirmed feelings, thoughts, concerns;Sustaining Presence/Ministry of presence Outcome Receptive;Expressed Gratitude;Expressed feelings, needs, and concerns;Engaged in conversation Called IR x4 at 17:23 pm to provide advance notice of possible need for IR intervention. All calls through [employer] to u would ring but unable to be connected. Re-evaluated patient around 16:30, patient SBP in the 70s to low 80s even after 500 ml NS IVF x2, Midodrine 10 mg x2 and 1 unit of PRBC. Hgb recheck s/p transfusion was down to 6.0 from 6.2. Discussed with GI, 2 units PRBC ordered STAT, CTA abdomen STAT and critical care consulted. Patient is likely to need an IR consult for intervention depending on results of CTA. Patient is resting, alert and oriented x3. Denies any CP, SOB, FORBES, lightheadedness, nausea or vomiting Patient on commode when she went stiff and had an episode of shaking. BP 84/67. Arrived at bedside and patient complained of SOB. She is alert and oriented. Patient placed on NRB. O2 saturation >90%. Patient denies any CP, lightheadedness, nausea or vomiting. Patient started on 500 ml bolus NS IVF, 1 unit of PRBC ordered from this morning has yet to be given for Hgb 6.2. Patient also given a dose of ativan for anxiety. Patient improved. Midodrine is ordered for SBP <100. Will reassess once IVF and blood transfusion completed Images from the original note were not included. [facility] Office: [phone] Alvin Ma DO, Erick Burns DO, Varghese Abreu DO, Randy Zelaya DO, Raz Moznon MD, Tiara Quintana MD, Lianet Murcia MD, Nicolle Cardoso MD, Ray De La Cruz MD, Kathi Ibanez MD, Diana Joseph MD, Yoselin De La Paz DO, Osvaldo Cortes MD, Patrick Mcbride MD, Jesus Ma DO, Amira King MD, Grabiel Benedict DO, Rubi Frias MD, Teresa Queen MD, Susna Collins MD, Carol Abreu MD, Ehsan Palacio MD, Elma Tejada MD, Elgin Young MD, Kelsie Oneill MD, Klaus Yeung MD, Deanna Coyle MD, Carlos Jaquez DO, Reynaldo Hameed DO, Jie Lugo MD, Bruce Pozo MD, Aida Montemayor, CUSTOMER RETENTION REPRESENTATIVE, Nereyda Patiño, CUSTOMER RETENTION REPRESENTATIVE, Vito Calabrese, CUSTOMER RETENTION REPRESENTATIVE, Karime Keane, AAYUSH, Halima Mason, CUSTOMER RETENTION REPRESENTATIVE, Carmen Orozco, CUSTOMER RETENTION REPRESENTATIVE, Kathy Flores, CUSTOMER RETENTION REPRESENTATIVE, Farnaz Lucas, CUSTOMER RETENTION REPRESENTATIVE, Maricel Burger, PA-C, Alicia Veliz, PA-C, Olivia Stiles, CUSTOMER RETENTION REPRESENTATIVE, Ying Singleton, CUSTOMER RETENTION REPRESENTATIVE, Vikas Laird, CUSTOMER RETENTION REPRESENTATIVE, Mira Pina, CUSTOMER RETENTION REPRESENTATIVE, Briana Lim, CUSTOMER RETENTION REPRESENTATIVE, Shirley Johnson, [facility], Jenny Denise, CUSTOMER RETENTION REPRESENTATIVE, Jasmine Leong, CUSTOMER RETENTION REPRESENTATIVE, Janice Perla, CUSTOMER RETENTION REPRESENTATIVE [facility] IN-PATIENT SERVICE [facility] Progress Note 11/29/2023 9:01 AM Name: Jenny Ewing Acct: [id number] Room: [address] [place] [address] Day: 4 Admit Date: 11/25/2023 4:07 AM PCP: No primary care provider on file. Code Status: Full Code Subjective: C/C: weakness Interval History Status: improved. Patient seen and examined at bedside this morning. No acute events overnight. Patient complains of sinus pain and pressure. Patient also states she has been having poor sleep. Patient denies any CP, FORBES, lightheadedness, fever or chills Brief History: 73 year old female with past medical history of smoking, depression, back pain presents with maroon and black stools at home as well as a fall. Patient has history of GI bleed was clipped ad EGD, reports not available. Patient has hemoglobin of 6.6. received 1 unit transfusion at [facility]. She has not been able to parts picker her medications from prior discharge from [facility]. They were sent to her pharmacy on Thursday but has not been able to get them. Underwent EGD and found to have Large duodenal ulcer 2/2 chronic NSAID use for chronic pain. X-tack stitch and hemspray powder application were performed. Review of Systems: Constitutional: negative for chills, fevers, sweats HENT: sinus pain and pressure Respiratory: negative for cough, dyspnea on exertion. Positive SOB Cardiovascular: negative for chest pain, chest pressure/discomfort, lower extremity edema, palpitations Gastrointestinal: negative for abdominal pain, constipation, diarrhea, nausea, vomiting Neurological: negative for dizziness, headache Medications: Allergies: Allergies Allergen Reactions Motrin [Ibuprofen] Other (See Comments) GI BLEED Avelox [Moxifloxacin] Hives Codeine Other (See Comments) nightmares Niacin And Related Hives Current Meds: Scheduled Meds: fluticasone 1 puff Inhalation BID RT traZODone 100 mg Oral Nightly pantoprazole (PROTONIX) 40 mg in sodium chloride (PF) 0.9 % 10 mL injection 40 mg IntraVENous Q12H ipratropium 0.5 mg-albuterol 2.5 mg 1 Dose Inhalation TID RT Hydrocerin Topical BID sodium chloride flush 5-40 mL IntraVENous 2 times per day sodium chloride 1,000 mL IntraVENous Once baclofen 10 mg Oral BID WC busPIRone 15 mg Oral BID WC busPIRone 30 mg Oral Nightly DULoxetine 40 mg Oral Daily hydrocortisone 7.5 mg Oral QAM AC hydrocortisone 5 mg Oral Lunch levothyroxine 150 mcg Oral QAM AC potassium chloride 40 mEq Oral Once Continuous Infusions: sodium chloride sodium chloride sodium chloride Stopped (11/28/23 0521) PRN Meds: loperamide, sodium chloride, midodrine, melatonin, potassium chloride OR potassium alternative oral replacement OR potassium chloride, magnesium sulfate, sodium chloride flush, sodium chloride, ondansetron OR ondansetron, acetaminophen OR acetaminophen, fentanNYL, albuterol sulfate HFA, hypromellose, sodium chloride, traMADol Data: Past Medical History: has a past medical history of Anxiety, Arthritis, Cerebral artery occlusion with cerebral infarction (HCC), COPD (chronic obstructive pulmonary disease) ([facility]), Depression, History of blood transfusion, and Thyroid disease. Social History: reports that she has been smoking cigarettes. She has a 25.0 pack-year smoking history. She has never used smokeless tobacco. She reports that she does not currently use alcohol. She reports that she does not use drugs. Family History: History reviewed. No pertinent family history. Vitals: BP (!) 124/98 Pulse (!) 126 Temp 97.6 F (36.4 C) (Oral) Resp 15 Ht 1.6 m (5' 2.99 ) Wt 69.2 kg (152 lb 8.9 oz) SpO2 95% BMI 27.03 kg/m Temp (24hrs), Av.3 F (36.8 C), Min:97.6 F (36.4 C), Max:99.1 F (37.3 C) No results for input(s): POCGLU in the last 72 hours. I/O (24Hr): No intake or output data in the 24 hours ending 11/29/23900 Labs: Hematology: Recent Labs 11/27/23200811/27/23211011/28/23333 HGB 5.9* 5.7* 7.5* HCT 18.0* 17.9* 24.0* Chemistry: Recent Labs 11/27/2335311/28/23333 NA 134* 135* K 3.4* 3.7 CL 105 105 CO2 22 21 GLUCOSE 83 88 BUN 7* 10 CREATININE 0.4* 0.3* MG 1.9 -- ANIONGAP 7* 9 LABGLOM >90 >90 CALCIUM 6.3* 6.4* No results for input(s): PROT , LABALBU , LABA1C , V0OPJGZ , M8LQQLU , FT4 , TSH , AST , ALT , LDH , GGT , ALKPHOS , BILITOT , BILIDIR , AMMONIA , AMYLASE , LIPASE , LACTATE , CHOL , HDL , CHOLHDLRATIO , TRIG , VLDL , SBP90FN , PHENYTOIN , PHENYF , URICACID , POCGLU in the last 72 hours. Invalid input(s): LABGGT , LDLCHOLESTEROL ABG:No results found for: POCPH , PHART , PH , POCPCO2 , JCP4BXR , PCO2 , POCPO2 , PO2ART , PO2 , POCHCO3 , DYJ3RHF , HCO3 , NBEA , PBEA , BEART , BE , THGBART , THB , WAW2JVR , YXES6EZC , V5ERZRXW , O2SAT , FIO2 No results found for: SPECIAL Lab Results Component Value Date/Time CULTURE NO GROWTH 3 DAYS 11/25/2023 09:58 AM CULTURE NO GROWTH 3 DAYS 11/25/2023 09:58 AM Radiology: XR CHEST PORTABLE Result Date: 11/25/2023 Layering right greater than left pleural effusions and bibasilar atelectasis. CTA ABDOMEN PELVIS W WO CONTRAST Result Date: 11/25/2023 1. No evidence of mesenteric ischemia or contrast extravasation. 2. Small bilateral pleural effusions greater on the right with right basilar atelectasis. 3. Small amount of free fluid in the pelvis and surrounding the liver. 4. Mild left hydronephrosis. 5. Diffuse wall thickening of the stomach possibly reflecting gastritis. Consider direct visualization. 6. Small fat containing umbilical hernia. 7. Diffuse anasarca. Physical Examination: General appearance: alert, cooperative and no distress. Tenderness on palpation of sinuses Mental Status: oriented to person, place and time and normal affect Lungs: clear to auscultation bilaterally, normal effort Heart: regular rate and rhythm, no murmur Abdomen: soft, nontender, nondistended, normal bowel sounds, no masses, hepatomegaly, splenomegaly Extremities: no edema, redness, tenderness in the calves Skin: no gross lesions, rashes, induration Assessment: Hospital Problems Last Modified POA * (Principal) GI bleed 11/25/2023 Yes GIB (gastrointestinal bleeding) 11/25/2023 Yes Acute anemia 11/25/2023 Yes Chronic pain syndrome 11/25/2023 Yes Chronic respiratory failure with hypoxia (HCC) 11/25/2023 Yes Dependence on supplemental oxygen 11/25/2023 Yes Duodenal ulcer 11/25/2023 Yes Gastroesophageal reflux disease 11/25/2023 Yes Generalized anxiety disorder 11/25/2023 Yes Peripheral venous insufficiency 11/25/2023 Yes Sleep dysfunction with arousal disturbance 11/25/2023 Yes Tobacco user 11/25/2023 Yes Plan: Large duodenal ulcer 2/2 chronic NSAID use for chronic pain S/P EGD with X-tack stitch and hemspray powder application IR coil embolization of GDA completed Hgb last 7.5, CBC pending this am Patient is s/p 1 unit PRBC since admission Will continue to monitor Hgb, Transfuse ig Hgb < 7 Continue PPI gtt until day of discharge GI signed off Diet advanced to full liquid Sinus pain CT sinus ordered Hypotensive due to blood loss- resolving Continue Midodrine for SBP <100 Chronic respiratory failure with hypoxia- resolving Patient is on 2-3 L O2 NC at home Currently 3L O2 NC Albuterol PRN Restarted patients home Flovent Sleeping difficulty Started on Doxepin nightly Deanna Coyle MD 11/29/2023 9:01 AM Patient was having increased bouts of diarrhea. CAMPAIGN ANALYST notified. Imodium ordered. Images from the original note were not included. [facility] Office: [phone] Alvin Ma DO, Erick Burns DO, Varghese Abreu DO, Randy Zelaya DO, Raz Monzon MD, Tiara Quintana MD, Lianet Murcia MD, Nicolle Cardoso MD, Ray De La Cruz MD, Kathi Ibanez MD, Diana Joseph MD, Yoselin De La Paz DO, Osvaldo Cortes MD, Patrick Mcbride MD, Jesus Ma DO, Amira King MD, Grabiel Benedict DO, Rubi Frias MD, Teresa Queen MD, Susan Collins MD, Carol Abreu MD, Ehsan Palacio MD, Elma Tejada MD, Elgin Young MD, Kelsie Oneill MD, Klaus Yeung MD, Deanna Coyle MD, Carlos Jaquez DO, Reynaldo Hameed DO, Jie Lugo MD, Bruce Pozo MD, Aida Montemayor, OSVALDO, Nereyda Patiño CNP, Vito Calabrese, CUSTOMER RETENTION REPRESENTATIVE, Karime Keane, AAYUSH, Halima Mason, CUSTOMER RETENTION REPRESENTATIVE, Carmen Orozco, CUSTOMER RETENTION REPRESENTATIVE, Kathy Flores, CUSTOMER RETENTION REPRESENTATIVE, Farnaz Lucas, CUSTOMER RETENTION REPRESENTATIVE, Maricel Burger PA-C, Alicia Veliz PA-C, Olivia Stiles, CUSTOMER RETENTION REPRESENTATIVE, Ying Singleton, CUSTOMER RETENTION REPRESENTATIVE, Vikas Laird, CUSTOMER RETENTION REPRESENTATIVE, Mira Pina, CUSTOMER RETENTION REPRESENTATIVE, Briana Lim, CUSTOMER RETENTION REPRESENTATIVE, Shirley Johnson, COMMERCIAL FISHER, Jenny Denise, CUSTOMER RETENTION REPRESENTATIVE, Jasmine Leong, CUSTOMER RETENTION REPRESENTATIVE, Janice Perla CNP [facility] IN-PATIENT SERVICE [facility] Progress Note 11/28/2023 9:54 AM Name: Jenny Ewing Acct: [id number] Room: 0431/0431-01 Day: 3 Admit Date: 11/25/2023 4:07 AM PCP: No primary care provider on file. Code Status: Full Code Subjective: C/C: weakness Interval History Status: improved. Patient seen and examined at bedside this morning. Patient had successful embolization of the GDA with IR yesterday night. Patients Hgb noted to drop to 5.7 afterward and she was transfused with 1 unit PRBC. Patient doing well this morning but states she had poor sleep. Patient denies any CP, SOB, FORBES, fever or chills. Hgb is 7.5 this morning. Brief History: 73 year old female with past medical history of smoking, depression, back pain presents with maroon and black stools at home as well as a fall. Patient has history of GI bleed was clipped ad EGD, reports not available. Patient has hemoglobin of 6.6. received 1 unit transfusion at [facility]. She has not been able to parts picker her medications from prior discharge from [facility]. They were sent to her pharmacy on Thursday but has not been able to get them. Underwent EGD and found to have Large duodenal ulcer 2/2 chronic NSAID use for chronic pain. X-tack stitch and hemspray powder application were performed. Review of Systems: Constitutional: negative for chills, fevers, sweats Respiratory: negative for cough, dyspnea on exertion. Positive SOB Cardiovascular: negative for chest pain, chest pressure/discomfort, lower extremity edema, palpitations Gastrointestinal: negative for abdominal pain, constipation, diarrhea, nausea, vomiting Neurological: negative for dizziness, headache Medications: Allergies: Allergies Allergen Reactions Motrin [Ibuprofen] Other (See Comments) GI BLEED Avelox [Moxifloxacin] Hives Codeine Other (See Comments) nightmares Niacin And Related Hives Current Meds: Scheduled Meds: ipratropium 0.5 mg-albuterol 2.5 mg 1 Dose Inhalation Q4H WA RT fluticasone 1 puff Inhalation BID RT traZODone 100 mg Oral Nightly Hydrocerin Topical BID sodium chloride flush 5-40 mL IntraVENous 2 times per day sodium chloride 1,000 mL IntraVENous Once baclofen 10 mg Oral BID WC busPIRone 15 mg Oral BID WC busPIRone 30 mg Oral Nightly DULoxetine 40 mg Oral Daily hydrocortisone 7.5 mg Oral QAM AC hydrocortisone 5 mg Oral Lunch levothyroxine 150 mcg Oral QAM AC potassium chloride 40 mEq Oral Once Continuous Infusions: pantoprazole sodium chloride sodium chloride sodium chloride Stopped (11/28/23 0521) PRN Meds: sodium chloride, midodrine, melatonin, potassium chloride OR potassium alternative oral replacement OR potassium chloride, magnesium sulfate, sodium chloride flush, sodium chloride, ondansetron OR ondansetron, acetaminophen OR acetaminophen, fentanNYL, albuterol sulfate HFA, hypromellose, sodium chloride, traMADol Data: Past Medical History: has a past medical history of Anxiety, Arthritis, Cerebral artery occlusion with cerebral infarction (HCC), COPD (chronic obstructive pulmonary disease) (HCC), Depression, History of blood transfusion, and Thyroid disease. Social History: reports that she has been smoking cigarettes. She has a 25.0 pack-year smoking history. She has never used smokeless tobacco. She reports that she does not currently use alcohol. She reports that she does not use drugs. Family History: History reviewed. No pertinent family history. Vitals: BP 125/61 Pulse (!) 106 Temp 98.1 F (36.7 C) (Temporal) Resp 21 Ht 1.6 m (5' 2.99 ) Wt 69.2 kg (152 lb 8.9 oz) SpO2 97% BMI 27.03 kg/m Temp (24hrs), Av.1 F (36.7 C), Min:98 F (36.7 C), Max:98.2 F (36.8 C) No results for input(s): POCGLU in the last 72 hours. I/O (24Hr): Intake/Output Summary (Last 24 hours) at 11/28/2023 0954 Last data filed at 11/28/2023 0838 Gross per 24 hour Intake 337.58 ml Output 1450 ml Net -1112.42 ml Labs: Hematology: Recent Labs 11/25/23 0958 11/25/23 1756 11/27/23200811/27/23211011/28/23 0334 WBC 9.5 -- -- -- -- RBC 1.95* -- -- -- -- HGB 5.8* < > 5.9* 5.7* 7.5* HCT 19.9* < > 18.0* 17.9* 24.0* MCV 102.1 -- -- -- -- MCH 29.7 -- -- -- -- MCHC 29.1 -- -- -- -- RDW 19.9* -- -- -- -- PLT 186 -- -- -- -- MPV 11.5 -- -- -- -- < > = values in this interval not displayed. Chemistry: Recent Labs 11/26/2330611/27/2335311/28/23 033 NA 140 134* 135* K 3.4* 3.4* 3.7 CL 112* 105 105 CO2 17* 22 21 GLUCOSE 82 83 88 BUN 9 7* 10 CREATININE 0.3* 0.4* 0.3* MG 1.5* 1.9 -- ANIONGAP 11 7* 9 LABGLOM >90 >90 >90 CALCIUM 6.3* 6.3* 6.4* No results for input(s): PROT , LABALBU , LABA1C , L2RWSZP , M2AFQTU , FT4 , TSH , AST , ALT , LDH , GGT , ALKPHOS , BILITOT , BILIDIR , AMMONIA , AMYLASE , LIPASE , LACTATE , CHOL , HDL , CHOLHDLRATIO , TRIG , VLDL , YXB98SP , PHENYTOIN , PHENYF , URICACID , POCGLU in the last 72 hours. Invalid input(s): LABGGT , LDLCHOLESTEROL ABG:No results found for: POCPH , PHART , PH , POCPCO2 , RWO4OXB , PCO2 , POCPO2 , PO2ART , PO2 , POCHCO3 , ANU2VZS , HCO3 , NBEA , PBEA , BEART , BE , THGBART , THB , USA1VZQ , JYVP3TEI , D6ZINMQK , O2SAT , FIO2 No results found for: SPECIAL Lab Results Component Value Date/Time CULTURE NO GROWTH 2 DAYS 11/25/2023 09:58 AM CULTURE NO GROWTH 2 DAYS 11/25/2023 09:58 AM Radiology: XR CHEST PORTABLE Result Date: 11/25/2023 Layering right greater than left pleural effusions and bibasilar atelectasis. CTA ABDOMEN PELVIS W WO CONTRAST Result Date: 11/25/2023 1. No evidence of mesenteric ischemia or contrast extravasation. 2. Small bilateral pleural effusions greater on the right with right basilar atelectasis. 3. Small amount of free fluid in the pelvis and surrounding the liver. 4. Mild left hydronephrosis. 5. Diffuse wall thickening of the stomach possibly reflecting gastritis. Consider direct visualization. 6. Small fat containing umbilical hernia. 7. Diffuse anasarca. Physical Examination: General appearance: alert, cooperative and no distress Mental Status: oriented to person, place and time and normal affect Lungs: clear to auscultation bilaterally, normal effort Heart: regular rate and rhythm, no murmur Abdomen: soft, nontender, nondistended, normal bowel sounds, no masses, hepatomegaly, splenomegaly Extremities: no edema, redness, tenderness in the calves Skin: no gross lesions, rashes, induration Assessment: Hospital Problems Last Modified POA * (Principal) GI bleed 11/25/2023 Yes GIB (gastrointestinal bleeding) 11/25/2023 Yes Acute anemia 11/25/2023 Yes Chronic pain syndrome 11/25/2023 Yes Chronic respiratory failure with hypoxia (HCC) 11/25/2023 Yes Dependence on supplemental oxygen 11/25/2023 Yes Duodenal ulcer 11/25/2023 Yes Gastroesophageal reflux disease 11/25/2023 Yes Generalized anxiety disorder 11/25/2023 Yes Peripheral venous insufficiency 11/25/2023 Yes Sleep dysfunction with arousal disturbance 11/25/2023 Yes Tobacco user 11/25/2023 Yes Plan: Large duodenal ulcer 2/2 chronic NSAID use for chronic pain S/P EGD with X-tack stitch and hemspray powder application IR coil embolization of GDA completed last night Hgb 7.5 this morning from 5.7 overnight Patient is s/p 1 unit PRBC Will continue to monitor Hgb, Transfuse ig Hgb < 7 Continue PPI gtt GI following Currently NPO, advance diet if ok with GI Hypotensive due to blood loss- resolving Continue Midodrine for SBP <100 Chronic respiratory failure with hypoxia- resolving Patient is on 2-3 L O2 NC at home Currently 3L O2 NC Albuterol PRN Patient states she take Flovent at home, will restart Sleeping difficulty Continue on Trazodone nightly Deanna Coyle MD 11/28/2023 9:54 AM BRONCHOSPASM/BRONCHOCONSTRICTION [x] IMPROVE AERATION/BREATH SOUNDS [x] ADMINISTER BRONCHODILATOR THERAPY APPROPRIATE [x] ASSESS BREATH SOUNDS [x] IMPLEMENT AEROSOL/MDI PROTOCOL [x] PATIENT EDUCATION NEEDED [facility]'s Gastroenterology Progress Note Jenny Ewing is a 73 y.o. female patient. Hospitalization Day:3 Chief consult reason: GI bleed Subjective: This is a 73 y.o. female with past medical history significant for smoking, depression,Adrenal Hypofunction on Hydrocortisone, Fibromyalgia on Cymbalta, postsurgical hypothyroidism was admitted 11/25/2023 with GI bleed [K92.2]. We have been asked to see the patient in consultation by Diana Joseph MD for evaluation of black-colored stools. As per the chart review patient initially presented to [facility] with a complaint of fall secondary to fatigue and feeling weak, during that time the EMS noticed that patient is having black-colored stools the workup done in the outlying facility ruled out any stroke and patient did not hit her head when she fell as well. Labs in the [facility] are consistent with critically low hemoglobin about 4.8 g where she received 1 unit of transfusion later transferred to the [facility] for further evaluation. Patient is admitted under the internal medicine service and GI was consulted for further workup. Patient states that she feels all the time tired, fatigued and gives history of NSAID overuse because of her chronic pain syndrome. She currently smokes about 1/2 pack a day and has been smoking since 50 years, reports drinking alcohol occasionally. She denies any abdominal pain, nausea, vomiting but complaints of diarrhea, according to her she is having brown stools but the EMS witnessed black stools. Of note According to paper charts the patient has been to [facility] 10 days back for GI bleed. They have done EGD and found duodenal ulcer and was clipped. She was not able to parts picker her medications after the discharge from the [facility]. VITALS: BP 128/64 Pulse (!) 117 Temp 98.1 F (36.7 C) (Oral) Resp 23 Ht 1.6 m (5' 2.99 ) Wt 69.2 kg (152 lb 8.9 oz) SpO2 95% BMI 27.03 kg/m TEMPERATURE: Current - Temp: 98.1 F (36.7 C); Max - Temp Av.1 F (36.7 C) Min: 98 F (36.7 C) Max: 98.2 F (36.8 C) Physical Exam Constitutional: Appearance: She isalert HENT: Mouth/Throat: Mouth: Mucous membranes are dry. Cardiovascular: Rate and Rhythm: Normal rate. Pulmonary: Effort: Pulmonary effort is normal. Abdominal: Palpations: Abdomen is soft. Musculoskeletal: Right lower le+ Edema present. Left lower le+ Edema present. Skin: General: Skin is dry. Coloration: Skin is pale. Neurological: General: No focal deficit present. Mental Status: She is alert. Psychiatric: Mood and Affect: Mood normal. Data Review: Labs and Imaging: CBC: Recent Labs 11/25/23 0958 11/25/23 1756 11/27/23 0354 11/27/23 1028 11/27/23 2009 11/27/23 2111 11/28/23 0334 WBC 9.5 -- -- -- -- -- -- HGB 5.8* < > 7.2* 7.2* 5.9* 5.7* 7.5* MCV 102.1 -- -- -- -- -- -- RDW 19.9* -- -- -- -- -- -- PLT 186 -- -- -- -- -- -- < > = values in this interval not displayed. ANEMIA STUDIES: No results for input(s): TIBC , FERRITIN , QKOYKEVL04 , FOLATE , OCCULTBLD in the last 72 hours. Invalid input(s): LABIRON BMP: Recent Labs 11/26/23 0307 11/27/23 0354 11/28/23 0334 NA 140 134* 135* K 3.4* 3.4* 3.7 CL 112* 105 105 CO2 17* 22 21 BUN 9 7* 10 CREATININE 0.3* 0.4* 0.3* GLUCOSE 82 83 88 CALCIUM 6.3* 6.3* 6.4* MG 1.5* 1.9 -- LFTS: No results for input(s): ALKPHOS , ALT , AST , BILITOT , BILIDIR , LABALBU in the last 72 hours. Amylase/Lipase and Ammonia: No results for input(s): AMYLASE , LIPASE , AMMONIA in the last 72 hours. Acute Hepatitis Panel: No results found for: HEPBSAG , HEPCAB , HEPBIGM , HEPAIGM HCV Genotype: No components found for: HEPATITISCGENOTYPE HCV Quantitative: No results found for: HCVQNT LIVER WORK UP: AFP No results found for: AFP Alpha 1 antitrypsin No results found for: A1A CYNTHIA No results found for: CYNTHIA AMA No results found for: MITOAB ASMA No results found for: SMOOTHMUSCAB PT/INR No results for input(s): PROTIME , INR in the last 72 hours. Cancer Markers: CEA: No results for input(s): CEA in the last 72 hours. Ca 125: No results for input(s): CA125 in the last 72 hours. Ca 19-9: Invalid input(s): CA19-9 AFP: No results for input(s): AFP in the last 72 hours. Lactic acid:Invalid input(s): LACTIC ACID Radiology Review: No results found. Principal Problem: GI bleed Active Problems: GIB (gastrointestinal bleeding) Acute anemia Chronic pain syndrome Chronic respiratory failure with hypoxia (HCC) Dependence on supplemental oxygen Duodenal ulcer Gastroesophageal reflux disease Generalized anxiety disorder Peripheral venous insufficiency Sleep dysfunction with arousal disturbance Tobacco user Resolved Problems: * No resolved hospital problems. * GI Impression: Large duodenal ulcer secondary to NSAID overuse for chronic pain management s/p X tack stitch and Hemospray powder application done by Dr. Ugarte on 11/25/2023 Rebleeding of duodenal ulcer from GDA Acute anemia Plan and Recommendations: Protonix IV BID IR did GDA embolization on 11/27/2023 OK for clear liquid diet and advance as tolerated Avoid NSAIDS Monitor vitals, H&H and transfuse if Hb is <7 Monitor for any active signs of bleeding EGD on OP basis within 4-6 weeks after discharge to confirm healing of ulcer GI will sign off This plan was formulated in collaboration with Dr.Daboul Antonino MD Thank you for allowing me to participate in the care of your patient. Please feel free to contact me with any questions or concerns. [facility] Gastroenterology Abhishek Malina Bryant MD [phone] 11/28/2023 7:45 AM Estimated time of mins reviewing chart, assessing patient and formulating plan of care This note was created with the assistance of a speech-recognition program. Although the intention is to generate a document that actually reflects the content of the visit, no guarantees can be provided that every mistake has been identified and corrected by editing. Attending Physician Statement I have discussed the care of Jenny Ewing and I have examined the patient myselft and taken ros and hpi , including pertinent history and exam findings, with the author of this note . I have reviewed the jiménez elements of all parts of the encounter with the nurse practitioner/resident. I agree with the assessment, plan and orders as documented by the above health care provider The patient was treated by IR with embolization of the GDA Continue with PPI until discharge to heal the ulcer Advance diet as tolerated Will need repeat EGD in 4 to 6 weeks after discharged Patient slowly tolerating bowel prep and states she cannot tolerate much more. Patient educated on importance of bowel prep & encouraged to continue drinking it Images from the original note were not included. [facility] Office: [phone] Alvin Ma DO, Erick Burns DO, Varghese Abreu DO, Randy Zelyaa DO, Raz Monzon MD, Tiara Quintana MD, Lianet Murcia MD, Nicolle Cardoso MD, Ray De La Cruz MD, Kathi Ibanez MD, Diana Joseph MD, Yoselin De La Paz DO, Osvaldo Cortes MD, Patrick Mcbride MD, Jesus Ma DO, Amira King MD, Grabiel Benedict, DO, Rubi Frias MD, Teresa Queen MD, Susan Collins MD, Carol Abreu MD, Ehsan Palacio MD, Elma Tejada MD, Elgin Young MD, Kelsie Oneill MD, Klaus Yeung MD, Deanna Coyle MD, Carlos Jaquez DO, Reynaldo Hameed DO, Jie Lugo MD, Bruce Pozo MD, Aida Montemayor, CUSTOMER RETENTION REPRESENTATIVE, Nereyda Patiño, CUSTOMER RETENTION REPRESENTATIVE, Vito Calabrese, CUSTOMER RETENTION REPRESENTATIVE, Karime Keane, [facility], Halima Mason, CUSTOMER RETENTION REPRESENTATIVE, Carmen Orozoc, CUSTOMER RETENTION REPRESENTATIVE, Kathy Flores, CUSTOMER RETENTION REPRESENTATIVE, Farnaz Lucas, CUSTOMER RETENTION REPRESENTATIVE, Maricel Burger, PA-C, Alicia Veliz, PA-C, Olivia Stiles, CUSTOMER RETENTION REPRESENTATIVE, Ying Singleton, CUSTOMER RETENTION REPRESENTATIVE, Vikas Laird, CUSTOMER RETENTION REPRESENTATIVE, Mira Pina, CUSTOMER RETENTION REPRESENTATIVE, Briana Lim, CUSTOMER RETENTION REPRESENTATIVE, Shirley Johnson, COMMERCIAL FISHER, Jenny Denise, CUSTOMER RETENTION REPRESENTATIVE, Jasmine Leogn, CUSTOMER RETENTION REPRESENTATIVE, Janice Perla, CUSTOMER RETENTION REPRESENTATIVE [facility] IN-PATIENT SERVICE [facility] Progress Note 11/27/2023 9:39 AM Name: Jenny Ewing Acct: [id number] Room: [facility]/0431-01 Day: 2 Admit Date: 11/25/2023 4:07 AM PCP: No primary care provider on file. Code Status: Full Code Subjective: C/C: weakness Interval History Status: improved. Patient seen and examined at bedside this morning. No acute events overnight. Patient Hgb continues to trend down to 7.2 this morning from 8.6 yesterday. GI following, plan is for possible IR coil embolization of GDA. Patient denies any CP, SOB, FORBES, lightheadedness, fever or chills Brief History: 73 year old female with past medical history of smoking, depression, back pain presents with maroon and black stools at home as well as a fall. Patient has history of GI bleed was clipped ad EGD, reports not available. Patient has hemoglobin of 6.6. received 1 unit transfusion at [facility]. She has not been able to parts picker her medications from prior discharge from [facility]. They were sent to her pharmacy on Thursday but has not been able to get them. Underwent EGD and found to have Large duodenal ulcer 2/2 chronic NSAID use for chronic pain. X-tack stitch and hemspray powder application were performed. Review of Systems: Constitutional: negative for chills, fevers, sweats Respiratory: negative for cough, dyspnea on exertion. Positive SOB Cardiovascular: negative for chest pain, chest pressure/discomfort, lower extremity edema, palpitations Gastrointestinal: negative for abdominal pain, constipation, diarrhea, nausea, vomiting Neurological: negative for dizziness, headache Medications: Allergies: Allergies Allergen Reactions Motrin [Ibuprofen] Other (See Comments) GI BLEED Avelox [Moxifloxacin] Hives Codeine Other (See Comments) nightmares Niacin And Related Hives Current Meds: Scheduled Meds: Hydrocerin Topical BID sodium chloride flush 5-40 mL IntraVENous 2 times per day sodium chloride 1,000 mL IntraVENous Once baclofen 10 mg Oral BID WC busPIRone 15 mg Oral BID WC busPIRone 30 mg Oral Nightly DULoxetine 40 mg Oral Daily hydrocortisone 7.5 mg Oral QAM AC hydrocortisone 5 mg Oral Lunch levothyroxine 150 mcg Oral QAM AC potassium chloride 40 mEq Oral Once Continuous Infusions: sodium chloride pantoprazole 8 mg/hr (11/27/23 0050) sodium chloride 100 mL/hr at 11/27/23 0049 PRN Meds: midodrine, melatonin, potassium chloride OR potassium alternative oral replacement OR potassium chloride, magnesium sulfate, sodium chloride flush, sodium chloride, ondansetron OR ondansetron, acetaminophen OR acetaminophen, fentanNYL, albuterol sulfate HFA, hypromellose, sodium chloride, traMADol Data: Past Medical History: has a past medical history of Anxiety, Arthritis, Cerebral artery occlusion with cerebral infarction (HCC), COPD (chronic obstructive pulmonary disease) ([facility]), Depression, History of blood transfusion, and Thyroid disease. Social History: reports that she has been smoking cigarettes. She has a 25.0 pack-year smoking history. She has never used smokeless tobacco. She reports that she does not currently use alcohol. She reports that she does not use drugs. Family History: History reviewed. No pertinent family history. Vitals: BP 116/69 Pulse 77 Temp 97.5 F (36.4 C) (Oral) Resp 13 Ht 1.6 m (5' 2.99 ) Wt 67.5 kg (148 lb 13 oz) SpO2 96% BMI 26.37 kg/m Temp (24hrs), Av.1 F (36.7 C), Min:97.5 F (36.4 C), Max:98.8 F (37.1 C) No results for input(s): POCGLU in the last 72 hours. I/O (24Hr): Intake/Output Summary (Last 24 hours) at 11/27/2023 0939 Last data filed at 11/26/2023 1727 Gross per 24 hour Intake 4735.74 ml Output 1250 ml Net 3485.74 ml Labs: Hematology: Recent Labs 11/25/23 0502 11/25/23 0958 11/25/23 1756 11/26/23 1627 11/26/23 2335 11/27/23 0354 WBC -- 9.5 -- -- -- -- RBC -- 1.95* -- -- -- -- HGB 6.6* 5.8* < > 8.1* 7.7* 7.2* HCT 20.3* 19.9* < > 24.6* 24.3* 22.0* MCV -- 102.1 -- -- -- -- MCH -- 29.7 -- -- -- -- MCHC -- 29.1 -- -- -- -- RDW -- 19.9* -- -- -- -- PLT -- 186 -- -- -- -- MPV -- 11.5 -- -- -- -- INR 1.2 -- -- -- -- -- < > = values in this interval not displayed. Chemistry: Recent Labs 11/25/23 0502 11/26/23 0307 11/27/23 0354 NA 138 140 134* K 3.6* 3.4* 3.4* CL 108* 112* 105 CO2 23 17* 22 GLUCOSE 81 82 83 BUN 13 9 7* CREATININE 0.4* 0.3* 0.4* MG -- 1.5* 1.9 ANIONGAP 7* 11 7* LABGLOM >90 >90 >90 CALCIUM 6.6* 6.3* 6.3* No results for input(s): PROT , LABALBU , LABA1C , T4ORELK , K8LLDQU , FT4 , TSH , AST , ALT , LDH , GGT , ALKPHOS , BILITOT , BILIDIR , AMMONIA , AMYLASE , LIPASE , LACTATE , CHOL , HDL , CHOLHDLRATIO , TRIG , VLDL , HRX50WT , PHENYTOIN , PHENYF , URICACID , POCGLU in the last 72 hours. Invalid input(s): LABGGT , LDLCHOLESTEROL ABG:No results found for: POCPH , PHART , PH , POCPCO2 , AEW6KGC , PCO2 , POCPO2 , PO2ART , PO2 , POCHCO3 , EXP7ZPQ , HCO3 , NBEA , PBEA , BEART , BE , THGBART , THB , UBF3HRI , SPYL2MRY , Y3PTNIPT , O2SAT , FIO2 No results found for: SPECIAL Lab Results Component Value Date/Time CULTURE NO GROWTH 1 DAY 11/25/2023 09:58 AM CULTURE NO GROWTH 1 DAY 11/25/2023 09:58 AM Radiology: XR CHEST PORTABLE Result Date: 11/25/2023 Layering right greater than left pleural effusions and bibasilar atelectasis. CTA ABDOMEN PELVIS W WO CONTRAST Result Date: 11/25/2023 1. No evidence of mesenteric ischemia or contrast extravasation. 2. Small bilateral pleural effusions greater on the right with right basilar atelectasis. 3. Small amount of free fluid in the pelvis and surrounding the liver. 4. Mild left hydronephrosis. 5. Diffuse wall thickening of the stomach possibly reflecting gastritis. Consider direct visualization. 6. Small fat containing umbilical hernia. 7. Diffuse anasarca. Physical Examination: General appearance: alert, cooperative and no distress Mental Status: oriented to person, place and time and normal affect Lungs: clear to auscultation bilaterally, normal effort Heart: regular rate and rhythm, no murmur Abdomen: soft, nontender, nondistended, normal bowel sounds, no masses, hepatomegaly, splenomegaly Extremities: no edema, redness, tenderness in the calves Skin: no gross lesions, rashes, induration Assessment: Hospital Problems Last Modified POA * (Principal) GI bleed 11/25/2023 Yes GIB (gastrointestinal bleeding) 11/25/2023 Yes Acute anemia 11/25/2023 Yes Chronic pain syndrome 11/25/2023 Yes Chronic respiratory failure with hypoxia (HCC) 11/25/2023 Yes Dependence on supplemental oxygen 11/25/2023 Yes Duodenal ulcer 11/25/2023 Yes Gastroesophageal reflux disease 11/25/2023 Yes Generalized anxiety disorder 11/25/2023 Yes Peripheral venous insufficiency 11/25/2023 Yes Sleep dysfunction with arousal disturbance 11/25/2023 Yes Tobacco user 11/25/2023 Yes Plan: Large duodenal ulcer 2/2 chronic NSAID use for chronic pain S/P EGD with X-tack stitch and hemspray powder application Hgb 7.2 this morning from 8.6 yesterday Will continue to monitor Hgb Transfuse ig Hgb < 7 Continue PPI gtt GI following Possible IR coil embolization of GDA today Currently NPO Hypotensive due to blood loss Continue IV fluids Continue Midodrine Chronic respiratory failure with hypoxia Patient is on 2-3 L O2 NC at home Currently 4L O2 NC Albuterol PRN Sleeping difficulty Started on Trazodone nightly Denana Coyle MD 11/27/2023 9:39 AM [facility]'s Gastroenterology Progress Note Jenny Ewing is a 73 y.o. female patient. Hospitalization Day:2 Chief consult reason: GI bleed Subjective: This is a 73 y.o. female with past medical history significant for smoking, depression,Adrenal Hypofunction on Hydrocortisone, Fibromyalgia on Cymbalta, postsurgical hypothyroidism was admitted 11/25/2023 with GI bleed [K92.2]. We have been asked to see the patient in consultation by Diana Joseph MD for evaluation of black-colored stools. As per the chart review patient initially presented to [facility] with a complaint of fall secondary to fatigue and feeling weak, during that time the EMS noticed that patient is having black-colored stools the workup done in the outlying facility ruled out any stroke and patient did not hit her head when she fell as well. Labs in the [facility] are consistent with critically low hemoglobin about 4.8 g where she received 1 unit of transfusion later transferred to the [facility] for further evaluation. Patient is admitted under the internal medicine service and GI was consulted for further workup. Patient states that she feels all the time tired, fatigued and gives history of NSAID overuse because of her chronic pain syndrome. She currently smokes about 1/2 pack a day and has been smoking since 50 years, reports drinking alcohol occasionally. She denies any abdominal pain, nausea, vomiting but complaints of diarrhea, according to her she is having brown stools but the EMS witnessed black stools. Of note According to paper charts the patient has been to [facility] 10 days back for GI bleed. They have done EGD and found duodenal ulcer and was clipped. She was not able to parts picker her medications after the discharge from the [facility]. VITALS: BP 116/69 Pulse 77 Temp 97.5 F (36.4 C) (Oral) Resp 13 Ht 1.6 m (5' 2.99 ) Wt 67.5 kg (148 lb 13 oz) SpO2 96% BMI 26.37 kg/m TEMPERATURE: Current - Temp: 97.5 F (36.4 C); Max - Temp Av.1 F (36.7 C) Min: 97.5 F (36.4 C) Max: 98.8 F (37.1 C) Physical Exam Constitutional: Appearance: She isalert HENT: Mouth/Throat: Mouth: Mucous membranes are dry. Cardiovascular: Rate and Rhythm: Normal rate. Pulmonary: Effort: Pulmonary effort is normal. Abdominal: Palpations: Abdomen is soft. Musculoskeletal: Right lower le+ Edema present. Left lower le+ Edema present. Skin: General: Skin is dry. Coloration: Skin is pale. Neurological: General: No focal deficit present. Mental Status: She is alert. Psychiatric: Mood and Affect: Mood normal. Data Review: Labs and Imaging: CBC: Recent Labs 11/25/23 0958 11/25/23 1756 11/26/23 0307 11/26/23 1058 11/26/23 1627 11/26/23 2335 11/27/23 0354 WBC 9.5 -- -- -- -- -- -- HGB 5.8* < > 8.1* 8.6* 8.1* 7.7* 7.2* MCV 102.1 -- -- -- -- -- -- RDW 19.9* -- -- -- -- -- -- PLT 186 -- -- -- -- -- -- < > = values in this interval not displayed. ANEMIA STUDIES: Recent Labs 11/25/23 050 TIBC 205* BMP: Recent Labs 11/25/23 05011/26/23 03011/27/23 035 NA 138 140 134* K 3.6* 3.4* 3.4* CL 108* 112* 105 CO2 23 17* 22 BUN 13 9 7* CREATININE 0.4* 0.3* 0.4* GLUCOSE 81 82 83 CALCIUM 6.6* 6.3* 6.3* MG -- 1.5* 1.9 LFTS: No results for input(s): ALKPHOS , ALT , AST , BILITOT , BILIDIR , LABALBU in the last 72 hours. Amylase/Lipase and Ammonia: No results for input(s): AMYLASE , LIPASE , AMMONIA in the last 72 hours. Acute Hepatitis Panel: No results found for: HEPBSAG , HEPCAB , HEPBIGM , HEPAIGM HCV Genotype: No components found for: HEPATITISCGENOTYPE HCV Quantitative: No results found for: HCVQNT LIVER WORK UP: AFP No results found for: AFP Alpha 1 antitrypsin No results found for: A1A CYNTHIA No results found for: CYNTHIA AMA No results found for: MITOAB ASMA No results found for: SMOOTHMUSCAB PT/INR Recent Labs 11/25/23 050 PROTIME 15.5* INR 1.2 Cancer Markers: CEA: No results for input(s): CEA in the last 72 hours. Ca 125: No results for input(s): CA125 in the last 72 hours. Ca 19-9: Invalid input(s): CA19-9 AFP: No results for input(s): AFP in the last 72 hours. Lactic acid:Invalid input(s): LACTIC ACID Radiology Review: No results found. Principal Problem: GI bleed Active Problems: GIB (gastrointestinal bleeding) Acute anemia Chronic pain syndrome Chronic respiratory failure with hypoxia (HCC) Dependence on supplemental oxygen Duodenal ulcer Gastroesophageal reflux disease Generalized anxiety disorder Peripheral venous insufficiency Sleep dysfunction with arousal disturbance Tobacco user Resolved Problems: * No resolved hospital problems. * GI Impression: Large duodenal ulcer secondary to NSAID overuse for chronic pain management s/p X tack stitch and Hemospray powder application done by Dr. Ugarte on 11/25/2023 Likely Rebleeding of the ulcer -burgundy colored large stools for 24 hours with drop in Hb Plan and Recommendations: Continue on PPI gtt Consult IR for possible embolization Avoid NSAIDS Monitor H&H and transfuse if Hb is <7 Monitor for any active signs of bleeding This plan was formulated in collaboration with Dr. Shanel Hernandez MD Thank you for allowing me to participate in the care of your patient. Please feel free to contact me with any questions or concerns. [facility] Gastroenterology [facility] Malina Bryant MD [phone] 11/27/2023 8:27 AM Estimated time of mins reviewing chart, assessing patient and formulating plan of care This note was created with the assistance of a speech-recognition program. Although the intention is to generate a document that actually reflects the content of the visit, no guarantees can be provided that every mistake has been identified and corrected by editing. Associated attestation - Nicky Ugarte MD - 11/27/2023 5:53 PM EDT Attested: I have discussed the care of Jenny Ewing and I have examined the patient myselft and taken ros and hpi , including pertinent history and exam findings, with the resident physician. I have reviewed the jiménez elements of all parts of the encounter with the resident. 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) Nutrition Recommendations/Plan: Advance diet as medically able When diet advanced, suggest ONS BID (if Clear, pt prefers gonzalez flavor) Will monitor for diet advancement Malnutrition Assessment: Malnutrition Status: At risk for malnutrition (Comment) (11/26/23 1131) Context: Acute Illness Findings of the 6 clinical characteristics of malnutrition: Energy Intake: 75% or less of estimated energy requirements for 7 or more days Weight Loss: No significant weight loss Body Fat Loss: Unable to assess Muscle Mass Loss: Unable to assess Fluid Accumulation: Mild Extremities Gamb Cutter Strength: Not Performed Nutrition Assessment: 73 yo F adm GI bleed. PMH significant for GERD. Pt s/p EGD with duodenal ulcer repair (11/24). 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 Per pt, believes she had a 20 lb wt loss in that time. Per chart, no wt loss observed, pt with steady wt gain x 10 mos. Pt currently NPO, if diet advanced pt is agreeable to ONS, prefers Gonzalez Clear, agreeable to chocoalte, vanilla, strawberry Ensure. Per pt NKFA. LBM /. +2 RLE, +1 LLE edema noted. Nutrition Related Findings: Labs/meds reviewed Wound Type: None Current Nutrition Intake & Therapies: Average Meal Intake: NPO Average Supplements Intake: NPO Diet NPO Exceptions are: Ice Chips, Sips of Water with Meds Anthropometric Measures: Height: 160 cm (5' 2.99 ) [place] Body Weight (IBW): 115 lbs (52 kg) Admission Body Weight: 67.2 kg (148 lb 2.4 oz) Current Body Weight: 67.2 kg (148 lb 2.4 oz) (11/25/23), 128.8 % IBW. Current BMI (kg/m2): 26.3 Usual Body Weight: 59.4 kg (130 lb 15.3 oz) (07/23/23) % Weight Change (Calculated): 13.1 Weight Adjustment For: No Adjustment BMI Categories: Overweight (BMI 25.0-29.9) Estimated Daily Nutrient Needs: Energy Requirements Based On: Kcal/kg Weight Used for Energy Requirements: Admission Energy (kcal/day): 1400 to 1700 kcal/day Weight Used for Protein Requirements: Admission Protein (g/day): 80 to 100 g/day Method Used for Fluid Requirements: 1 ml/kcal Fluid (ml/day): 1400 to 1700 ml/day Nutrition Diagnosis: Inadequate oral intake related to altered GI structure as evidenced by NPO or clear liquid status due to medical condition Nutrition Interventions: Food and/or Nutrient Delivery: Continue NPO (Start oral diet as medically able) Nutrition Education/Counseling: No recommendation at this time Coordination of Nutrition Care: Continue to monitor while inpatient Goals: Previous Goal Met: (goal set) Goals: Initiate PO diet, by next RD assessment Nutrition Monitoring and Evaluation: Behavioral-Environmental Outcomes: None Identified Food/Nutrient Intake Outcomes: Diet Advancement/Tolerance Physical Signs/Symptoms Outcomes: Biochemical Data, Weight, Nutrition Focused Physical Findings, Nausea or Vomiting, GI Status Discharge Planning: Too soon to determine Pearl Rocha MS, RD, LD Contact: Floor Desk RD Weekend Images from the original note were not included. [facility] Office: [phone] Alvin Ma DO, Erick Burns DO, Varghese Abreu DO, Randy Zelaya DO, Raz Monzon MD, Tiara Quintana MD, Lianet Murcia MD, Nicolle Cardoso MD, Ray De La Cruz MD, Kathi Ibanez MD, Diana Joseph MD, Yoselin De La Paz DO, Osvaldo Cortes MD, Patrick Mcbride MD, Jesus Ma DO, Amira King MD, Grabiel Benedict DO, Rubi Frias MD, Teresa Queen MD, Susan Collins MD, Carol Abreu MD, Ehsan Palacio MD, Elma Tejada MD, Elgin Young MD, Kelsie Oneill MD, Klaus Yeung MD, Deanna Coyle MD, Carlos Jaquez DO, Reynaldo Hameed DO, Jie Lugo MD, Bruce Pozo MD, Aida Montemayor, CUSTOMER RETENTION REPRESENTATIVE, Nereyda Patiño, CUSTOMER RETENTION REPRESENTATIVE, Vito Calabrese, CUSTOMER RETENTION REPRESENTATIVE, Karime Keane, [facility], Halima Mason, CUSTOMER RETENTION REPRESENTATIVE, Carmen Orozco, CUSTOMER RETENTION REPRESENTATIVE, Kathy Flores, CUSTOMER RETENTION REPRESENTATIVE, Farnaz Lucas, CUSTOMER RETENTION REPRESENTATIVE, ARTUR ColonC, ARTUR RodriguezC, Olivia Stiles, CUSTOMER RETENTION REPRESENTATIVE, Ying Singleton, CUSTOMER RETENTION REPRESENTATIVE, Vikas Laird, CUSTOMER RETENTION REPRESENTATIVE, Mira Pina, CUSTOMER RETENTION REPRESENTATIVE, Briana Lim, CUSTOMER RETENTION REPRESENTATIVE, Shirley Johnson, [facility], Jenny Denise, CUSTOMER RETENTION REPRESENTATIVE, Jasmine Leong, CUSTOMER RETENTION REPRESENTATIVE, Janice Perla, CUSTOMER RETENTION REPRESENTATIVE [facility] IN-PATIENT SERVICE [facility] Progress Note 11/26/2023 11:14 AM Name: Jenny Ewing Acct: [id number] Room: [facility]043-[facility] Day: 1 Admit Date: 11/25/2023 4:07 AM PCP: No primary care provider on file. Code Status: Full Code Subjective: C/C: weakness Interval History Status: improved. Patient seen and examined at bedside this morning. No acute events overnight. Patient states her melena has improved. Continues on PPI gtt. Denies any abdominal pain, CP, SOB, lightheadedness, fever or chills. Brief History: 73 year old female with past medical history of smoking, depression, back pain presents with maroon and black stools at home as well as a fall. Patient has history of GI bleed was clipped ad EGD, reports not available. Patient has hemoglobin of 6.6. received 1 unit transfusion at [facility]. She has not been able to parts picker her medications from prior discharge from [facility]. They were sent to her pharmacy on Thursday but has not been able to get them. Underwent EGD and found to have Large duodenal ulcer 2/2 chronic NSAID use for chronic pain. X-tack stitch and hemspray powder application were performed. Review of Systems: Constitutional: negative for chills, fevers, sweats Respiratory: negative for cough, dyspnea on exertion, shortness of breath, wheezing Cardiovascular: negative for chest pain, chest pressure/discomfort, lower extremity edema, palpitations Gastrointestinal: negative for abdominal pain, constipation, diarrhea, nausea, vomiting Neurological: negative for dizziness, headache Medications: Allergies: Allergies Allergen Reactions Motrin [Ibuprofen] Other (See Comments) GI BLEED Avelox [Moxifloxacin] Hives Codeine Other (See Comments) nightmares Niacin And Related Hives Current Meds: Scheduled Meds: sodium chloride flush 5-40 mL IntraVENous 2 times per day sodium chloride 1,000 mL IntraVENous Once baclofen 10 mg Oral BID WC busPIRone 15 mg Oral BID WC busPIRone 30 mg Oral Nightly DULoxetine 40 mg Oral Daily hydrocortisone 7.5 mg Oral QAM AC hydrocortisone 5 mg Oral Lunch levothyroxine 150 mcg Oral QAM AC potassium chloride 40 mEq Oral Once Continuous Infusions: sodium chloride pantoprazole 8 mg/hr (11/25/23 1521) sodium chloride sodium chloride 100 mL/hr at 11/26/23 0501 sodium chloride PRN Meds: midodrine, melatonin, potassium chloride OR potassium alternative oral replacement OR potassium chloride, magnesium sulfate, sodium chloride flush, sodium chloride, ondansetron OR ondansetron, acetaminophen OR acetaminophen, sodium chloride, fentanNYL, albuterol sulfate HFA, hypromellose, sodium chloride, sodium chloride, traMADol Data: Past Medical History: has a past medical history of Anxiety, Arthritis, Cerebral artery occlusion with cerebral infarction (HCC), COPD (chronic obstructive pulmonary disease) ([facility]), Depression, History of blood transfusion, and Thyroid disease. Social History: reports that she has been smoking cigarettes. She has a 25.0 pack-year smoking history. She has never used smokeless tobacco. She reports that she does not currently use alcohol. She reports that she does not use drugs. Family History: History reviewed. No pertinent family history. Vitals: BP (!) 102/47 Pulse 86 Temp 98.4 F (36.9 C) (Oral) Resp 16 Ht 1.6 m (5' 3 ) Wt 67.2 kg (148 lb 2.4 oz) SpO2 96% BMI 26.24 kg/m Temp (24hrs), Av.1 F (36.7 C), Min:97.1 F (36.2 C), Max:98.8 F (37.1 C) No results for input(s): POCGLU in the last 72 hours. I/O (24Hr): Intake/Output Summary (Last 24 hours) at 11/26/2023 1114 Last data filed at 11/26/2023 0955 Gross per 24 hour Intake 1684.17 ml Output 1850 ml Net -165.83 ml Labs: Hematology: Recent Labs 11/25/23 0502 11/25/23 0958 11/25/23 1756 11/25/23 1839 11/25/23 2318 11/26/23 0307 WBC -- 9.5 -- -- -- -- RBC -- 1.95* -- -- -- -- HGB 6.6* 5.8* < > 9.2* 8.5* 8.1* HCT 20.3* 19.9* < > 28.6* 24.6* 26.3* MCV -- 102.1 -- -- -- -- MCH -- 29.7 -- -- -- -- MCHC -- 29.1 -- -- -- -- RDW -- 19.9* -- -- -- -- PLT -- 186 -- -- -- -- MPV -- 11.5 -- -- -- -- INR 1.2 -- -- -- -- -- < > = values in this interval not displayed. Chemistry: Recent Labs 11/25/2350111/26/23 0307 NA 138 140 K 3.6* 3.4* CL 108* 112* CO2 23 17* GLUCOSE 81 82 BUN 13 9 CREATININE 0.4* 0.3* MG -- 1.5* ANIONGAP 7* 11 LABGLOM >90 >90 CALCIUM 6.6* 6.3* No results for input(s): PROT , LABALBU , LABA1C , S7MWNUL , V3KVXHM , FT4 , TSH , AST , ALT , LDH , GGT , ALKPHOS , BILITOT , BILIDIR , AMMONIA , AMYLASE , LIPASE , LACTATE , CHOL , HDL , CHOLHDLRATIO , TRIG , VLDL , ZHD93SX , PHENYTOIN , PHENYF , URICACID , POCGLU in the last 72 hours. Invalid input(s): LABGGT , LDLCHOLESTEROL ABG:No results found for: POCPH , PHART , PH , POCPCO2 , OJD3ICC , PCO2 , POCPO2 , PO2ART , PO2 , POCHCO3 , IWT8FIQ , HCO3 , NBEA , PBEA , BEART , BE , THGBART , THB , HFS7XUT , OVEV3KEN , C3YNVSSQ , O2SAT , FIO2 No results found for: SPECIAL Lab Results Component Value Date/Time CULTURE NO GROWTH 1 DAY 11/25/2023 09:58 AM CULTURE NO GROWTH 1 DAY 11/25/2023 09:58 AM Radiology: XR CHEST PORTABLE Result Date: 11/25/2023 Layering right greater than left pleural effusions and bibasilar atelectasis. CTA ABDOMEN PELVIS W WO CONTRAST Result Date: 11/25/2023 1. No evidence of mesenteric ischemia or contrast extravasation. 2. Small bilateral pleural effusions greater on the right with right basilar atelectasis. 3. Small amount of free fluid in the pelvis and surrounding the liver. 4. Mild left hydronephrosis. 5. Diffuse wall thickening of the stomach possibly reflecting gastritis. Consider direct visualization. 6. Small fat containing umbilical hernia. 7. Diffuse anasarca. Physical Examination: General appearance: alert, cooperative and no distress Mental Status: oriented to person, place and time and normal affect Lungs: clear to auscultation bilaterally, normal effort Heart: regular rate and rhythm, no murmur Abdomen: soft, nontender, nondistended, normal bowel sounds, no masses, hepatomegaly, splenomegaly Extremities: no edema, redness, tenderness in the calves Skin: no gross lesions, rashes, induration Assessment: Hospital Problems Last Modified POA * (Principal) GI bleed 11/25/2023 Yes GIB (gastrointestinal bleeding) 11/25/2023 Yes Acute anemia 11/25/2023 Yes Chronic pain syndrome 11/25/2023 Yes Chronic respiratory failure with hypoxia (HCC) 11/25/2023 Yes Dependence on supplemental oxygen 11/25/2023 Yes Duodenal ulcer 11/25/2023 Yes Gastroesophageal reflux disease 11/25/2023 Yes Generalized anxiety disorder 11/25/2023 Yes Peripheral venous insufficiency 11/25/2023 Yes Sleep dysfunction with arousal disturbance 11/25/2023 Yes Tobacco user 11/25/2023 Yes Plan: Large duodenal ulcer 2/2 chronic NSAID use for chronic pain S/P EGD with X-tack stitch and hemspray powder application Hgb 8.1 this morning Will continue to monitor Hgb Transfuse ig Hgb < 7 Continue PPI gtt GI following Hypotensive due to blood loss Continue IV fluids Continue Midodrine Deanna Coyle MD 11/26/2023 11:14 AM [facility]'s Gastroenterology Progress Note Jenny Ewing is a 73 y.o. female patient. Hospitalization Day:1 Chief consult reason: GI bleed Subjective: This is a 73 y.o. female with past medical history significant for smoking, depression,Adrenal Hypofunction on Hydrocortisone, Fibromyalgia on Cymbalta, postsurgical hypothyroidism was admitted 11/25/2023 with GI bleed [K92.2]. We have been asked to see the patient in consultation by Diana Joseph MD for evaluation of black-colored stools. As per the chart review patient initially presented to [facility] with a complaint of fall secondary to fatigue and feeling weak, during that time the EMS noticed that patient is having black-colored stools the workup done in the outlying facility ruled out any stroke and patient did not hit her head when she fell as well. Labs in the [facility] are consistent with critically low hemoglobin about 4.8 g where she received 1 unit of transfusion later transferred to the [facility] for further evaluation. Patient is admitted under the internal medicine service and GI was consulted for further workup. Patient states that she feels all the time tired, fatigued and gives history of NSAID overuse because of her chronic pain syndrome. She currently smokes about 1/2 pack a day and has been smoking since 48 years, reports drinking alcohol occasionally. She denies any abdominal pain, nausea, vomiting but complaints of diarrhea, according to her she is having brown stools but the EMS witnessed black stools. Of note According to paper charts the patient has been to [facility] 10 days back for GI bleed. They have done EGD and found duodenal ulcer and was clipped. She was not able to parts picker her medications after the discharge from the [facility]. VITALS: BP 108/61 Pulse 78 Temp 98.4 F (36.9 C) (Oral) Resp 13 Ht 1.6 m (5' 3 ) Wt 67.2 kg (148 lb 2.4 oz) SpO2 96% BMI 26.24 kg/m TEMPERATURE: Current - Temp: 98.4 F (36.9 C); Max - Temp Av.1 F (36.7 C) Min: 97.1 F (36.2 C) Max: 98.8 F (37.1 C) Physical Exam Constitutional: Appearance: She isalert HENT: Mouth/Throat: Mouth: Mucous membranes are dry. Cardiovascular: Rate and Rhythm: Normal rate. Pulmonary: Effort: Pulmonary effort is normal. Abdominal: Palpations: Abdomen is soft. Musculoskeletal: Right lower le+ Edema present. Left lower le+ Edema present. Skin: General: Skin is dry. Coloration: Skin is pale. Neurological: General: No focal deficit present. Mental Status: She is alert. Psychiatric: Mood and Affect: Mood normal. Data Review: Labs and Imaging: CBC: Recent Labs 11/25/23 0958 11/25/23 1756 11/25/23 1839 11/25/23 2318 11/26/23 0307 WBC 9.5 -- -- -- -- HGB 5.8* 9.0* 9.2* 8.5* 8.1* MCV 102.1 -- -- -- -- RDW 19.9* -- -- -- -- PLT 186 -- -- -- -- ANEMIA STUDIES: Recent Labs 11/25/23 0502 TIBC 205* BMP: Recent Labs 11/25/23 0502 11/26/23 0307 NA 138 140 K 3.6* 3.4* CL 108* 112* CO2 23 17* BUN 13 9 CREATININE 0.4* 0.3* GLUCOSE 81 82 CALCIUM 6.6* 6.3* MG -- 1.5* LFTS: No results for input(s): ALKPHOS , ALT , AST , BILITOT , BILIDIR , LABALBU in the last 72 hours. Amylase/Lipase and Ammonia: No results for input(s): AMYLASE , LIPASE , AMMONIA in the last 72 hours. Acute Hepatitis Panel: No results found for: HEPBSAG , HEPCAB , HEPBIGM , HEPAIGM HCV Genotype: No components found for: HEPATITISCGENOTYPE HCV Quantitative: No results found for: HCVQNT LIVER WORK UP: AFP No results found for: AFP Alpha 1 antitrypsin No results found for: A1A CYNTHIA No results found for: CYNTHIA AMA No results found for: MITOAB ASMA No results found for: SMOOTHMUSCAB PT/INR Recent Labs 11/25/23 0502 PROTIME 15.5* INR 1.2 Cancer Markers: CEA: No results for input(s): CEA in the last 72 hours. Ca 125: No results for input(s): CA125 in the last 72 hours. Ca 19-9: Invalid input(s): CA19-9 AFP: No results for input(s): AFP in the last 72 hours. Lactic acid:Invalid input(s): LACTIC ACID Radiology Review: No results found. Principal Problem: GI bleed Active Problems: GIB (gastrointestinal bleeding) Acute anemia Chronic pain syndrome Chronic respiratory failure with hypoxia (HCC) Dependence on supplemental oxygen Duodenal ulcer Gastroesophageal reflux disease Generalized anxiety disorder Peripheral venous insufficiency Sleep dysfunction with arousal disturbance Tobacco user Resolved Problems: * No resolved hospital problems. * GI Impression: 1. Large duodenal ulcer secondary to NSAID overuse for chronic pain management Plan and Recommendations: Continue on PPI gtt OK for Clear liquid diet Monitor H&H and transfuse if Hb is <7 Monitor for any active signs of bleeding This plan was formulated in collaboration with Dr. Shanel Hernandez MD Thank you for allowing me to participate in the care of your patient. Please feel free to contact me with any questions or concerns. [facility] Gastroenterology [facility] Malina Bryant MD [phone] 11/26/2023 8:00 AM Estimated time of mins reviewing chart, assessing patient and formulating plan of care This note was created with the assistance of a speech-recognition program. Although the intention is to generate a document that actually reflects the content of the visit, no guarantees can be provided that every mistake has been identified and corrected by editing. Associated attestation - Nicky Ugarte MD - 11/26/2023 8:11 PM EDT Attested: I have discussed the care of Jenny Ewing and I have examined the patient myselft and taken ros and hpi , including pertinent history and exam findings, with the resident physician. I have reviewed the jiménez elements of all parts of the encounter with the resident. I agree with the assessment, plan and orders as documented by the resident with the following addendum- Impression- Large duodenal ulcer S/P endoscopic therapy H&H stable Plan- Monitor H&H daily and transfuse if Hb < 9 g/dl Continue PPI gtt Nicky Ugarte MD Notified by nsg patient still borderline hypotensive with sbp 90s, hgb drifting down to 8.1 s/p prior prbcs overnight. Labs and chart reviewed. S/p n/c for intermittent desat's Will start midodrine. chest xray w/ chf changes/ pleural effusions. Pending lasix. Will reduce ivf's to avoid further fluid overload. Pts hgb 6.6, Potassium 3.6. Notified provider.see new orders. documented in this encounter [facility] 12-02-2023 Hospital Discharge instructions Corinna Schmidt RN - 12/02/2023 9:46 AM EDT Continuity of Care Form Patient Name: Jenny Ewing : 1950 Admit date: 11/25/2023 Discharge date: 12/03/2023 Code Status Order: Full Code Advance Directives: Advance Care Flowsheet Documentation Date/Time Healthcare Directive Type of Healthcare Directive Copy in Chart Healthcare Agent Appointed Healthcare Agent's Name Healthcare Agent's Phone Number 12/01/23 0709 No, patient does not have an advance directive for healthcare treatment -- -- -- -- -- 11/25/23 1429 No, patient does not have an advance directive for healthcare treatment -- -- -- -- -- Admitting Physician: No admitting provider for patient encounter. PCP: No primary care provider on file. Discharging Nurse: IGOR Baldwin Discharging Hospital Unit/Room#: Discharging Unit Phone Number: [phone] Emergency Contact: Extended Emergency Contact Information Primary Emergency Contact: Pearl Julien Relation: Child Secondary Emergency Contact: aRdha Ventura Mobile Relation: Friend Busgirl needed? No Past Surgical History: Past Surgical History: Procedure Laterality Date SECTION x2 CHOLECYSTECTOMY COLONOSCOPY ENDOSCOPY, COLON, DIAGNOSTIC ESOPHAGOGASTRODUODENOSCOPY N/A 11/25/2023 ESOPHAGOGASTRODUODENOSCOPY 12/01/2023 EYE SURGERY FRACTURE SURGERY HYSTERECTOMY (CERVIX STATUS UNKNOWN) IR EMBOLIZATION HEMORRHAGE 11/27/2023 IR EMBOLIZATION HEMORRHAGE 11/27/2023 Jorge Russo MD [facility] SPECIAL PROCEDURES SKIN BIOPSY UPPER GASTROINTESTINAL ENDOSCOPY N/A 11/25/2023 *ADD ON* ESOPHAGOGASTRODUODENOSCOPY control hemorrhage performed by Nicky Ugarte MD at [facility] OR Immunization History: Immunization History Administered Date(s) Administered COVID-19, PFIZER PURPLE top, DILUTE for use, (age 12 y+), 30mcg/0.3mL 11/12/2020, 12/03/2020 Active Problems: Patient Active Problem List Diagnosis Code GI bleed K92.2 Acute anemia D64.9 Arthritis of both knees M17.0 Chronic pain syndrome G89.4 Chronic respiratory failure with hypoxia (HCC) J96.11 Dependence on supplemental oxygen Z99.81 Duodenal ulcer K26.9 Gastroesophageal reflux disease K21.9 Generalized anxiety disorder F41.1 Peripheral venous insufficiency I87.2 Sleep dysfunction with arousal disturbance G47.8 Tobacco user Z72.0 Isolation/Infection: Isolation No Isolation Patient Infection Status None to display Nurse Assessment: Last Vital Signs: BP 125/73 Pulse 74 Temp 98.6 F (37 C) (Oral) Resp 18 Ht 1.6 m (5' 2.99 ) Wt 88 kg (194 lb 0.1 oz) SpO2 100% BMI 34.38 kg/m Last documented pain score (0-10 scale): Pain Level: (sleeping) Last Weight: Wt Readings from Last 1 Encounters: 12/02/23 88 kg (194 lb 0.1 oz) Mental Status: oriented and alert IV Access: - None Nursing Mobility/ADLs: Walking Assisted Transfer Assisted Bathing Assisted Dressing Assisted Toileting Assisted Feeding Assisted Forensic Engineer Assisted Med Delivery whole Wound Care Documentation and Therapy: Elimination: Continence: Bowel: Yes Bladder: Yes Urinary Catheter: None Colostomy/Ileostomy/Ileal Conduit: No Date of Last BM: 11/30/2023 Intake/Output Summary (Last 24 hours) at 12/02/2023 0946 Last data filed at 12/01/2023 2347 Gross per 24 hour Intake -- Output 1400 ml Net -1400 ml I/O last 3 completed shifts: In: 560 [P.O.:360; I.V.:200] Out: 1400 [Urine:1400] Safety Concerns: History of Falls (last 30 days) and At Risk for Falls Impairments/Disabilities: None Nutrition Therapy: Current Nutrition Therapy: - Oral Diet: General - Oral Nutrition Supplement: Low Calorie High Protein three times a day Routes of Feeding: Oral Liquids: Thin Liquids Daily Fluid Restriction: no Last Modified Barium Swallow with Video (Video Swallowing Test): not done Treatments at the Time of Hospital Discharge: Respiratory Treatments: as needed Oxygen Therapy: is on oxygen at 4 L/min per nasal cannula. Ventilator: - No ventilator support Rehab Therapies: Physical Therapy and Occupational Therapy Weight Bearing Status/Restrictions: No weight bearing restrictions Other Medical Equipment (for information only, NOT a DME order): walker Other Treatments: mcfp, pt would like to speak with her social work instructor from [employer] [facility] office was closed on attempt 12/02 Patient's personal belongings (please select all that are sent with patient): Frantz RN SIGNATURE: CASE MANAGEMENT/SOCIAL WORK SECTION Inpatient Status Date: Readmission Risk Assessment Score: Readmission Risk Risk of Unplanned Readmission: 11 Discharging to Facility/ Agency Name: [facility] Address: Phone: Fax: Plc Engineer/Slitter Scorer signature: PHYSICIAN SECTION Prognosis: Good Condition at Discharge: Stable Rehab Potential (if transferring to Rehab): Good Recommended Labs or Other Treatments After Discharge: Continue PT OT. Monitor hemoglobin follow-up with PCP and GI. CBC 03/05/2024 Physician Certification: I certify the above information and transfer of Jenny Ewing is necessary for the continuing treatment of the diagnosis listed and that she requires mcfp facility for less 30 days. Update Admission H&P: No change in H&P PHYSICIAN SIGNATURE: documented in this encounter [facility] 11-28-2023 Note PROCEDURE: IR EMBOLIZATION VASCULAR ANY HEMORRHAGE 11/27/2023 HISTORY: ORDERING SYSTEM PROVIDED HISTORY: Embolization of GDA/GI bleed TECHNOLOGIST PROVIDED HISTORY: Embolization of GDA/GI bleed CONTRAST: Isovue 370-110 mL SEDATION: Fentanyl 50 mcg IV for discomfort. Medications were provided and recorded by Radiology nurses. FLUOROSCOPY DOSE AND TYPE: Fluoroscopy time-15.7 minutes. Radiation Exposure Index: DAP cGy*m2, 39563 DESCRIPTION OF PROCEDURE: Arteries interrogated: Celiac, GDA, SMA, and proper hepatic arteries. The risks versus benefits and alternatives of the procedure were explained to the patient who gave a written informed consent. Prior to the procedure, the patient was asked to state her full name, and date of . In the procedure room, a timeout was called. The patient identity and procedure to be performed were verified with the patient ID band, the consent, and the marked site. All elements of maximal sterile barrier technique were used. With the patient supine on the fluoroscopy table, the right groin was assessed sonographically and the right common femoral artery targeted. Local anesthesia was administered with 1% lidocaine. A small kelly was placed in the skin. Micropuncture technique was then utilized under direct ultrasound guidance to puncture the artery; a 0.018 inch guidewire was introduced followed by a 2-in-1 dilator, then exchanged for a 0.035 inch wire and 5 Bolivian introducer sheath. Randal 5 Bolivian x 65 cm catheter was introduced and the celiac artery catheterize; hand celiac angiography was performed. A 0.035 inch glidewire was manipulated into the distal hepatic arteries, catheter exchanged for a 5 Bolivian Cobra glide catheter which was manipulated into the origin GDA. Digital angiography was then performed. [place] delivery microcatheter 45 degree tip was then inserted. All attempts at advancing the microcatheter more distally in the GJ were unsuccessful, and hand contrast injection revealed extravasation to the adjacent duodenal lumen. Three microcoils were then deployed, 2 mm x 2 cm, 2 mm x 4 cm, and 3 mm x 5 cm with complete occlusion proximal GDA. The microcatheter was removed. Subsequent hand injection via the 5 Bolivian catheter the proper hepatic was performed. The guide catheter was removed, and the Randal catheter reinserted. Celiac and SMA digital angiography were then performed. The Randal catheter was removed. Hand digital angiography right iliofemoral vessels was performed at the groin. The right groin was re-prepped, and a 5 Bolivian Vascade closure device was deployed right SWING MANAGER. The patient tolerated procedure well and there were no immediate complications. FINDINGS: Multiple clips region duodenum; normal celiac and hepatic anatomy. Abnormal GDA with a small truncated duodenal side branch, and angulated continuation more medially with small duodenal arcade branches demonstrated. All attempts to catheterize the latter were unsuccessful; contrast extravasation into the duodenum subsequently seen. At the latter site, three coils deployed with complete GDA occlusion. Follow-up angiography demonstrated the latter, and no other abnormality or site of bleeding identified. Normal right SWING MANAGER entry site pre closure device placement. 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 Interpreted by: Jorge Russo MD Signed by: Jorge Russo MD 11/28/23 Final result [facility] 11-28-2023 Note PROCEDURE: IR EMBOLIZATION VASCULAR ANY HEMORRHAGE 11/27/2023 HISTORY: ORDERING SYSTEM PROVIDED HISTORY: Embolization of GDA/GI bleed TECHNOLOGIST PROVIDED HISTORY: Embolization of GDA/GI bleed CONTRAST: Isovue 370-110 mL SEDATION: Fentanyl 50 mcg IV for discomfort. Medications were provided and recorded by Radiology nurses. FLUOROSCOPY DOSE AND TYPE: Fluoroscopy time-15.7 minutes. Radiation Exposure Index: DAP cGy*m2, 20849 DESCRIPTION OF PROCEDURE: Arteries interrogated: Celiac, GDA, SMA, and proper hepatic arteries. The risks versus benefits and alternatives of the procedure were explained to the patient who gave a written informed consent. Prior to the procedure, the patient was asked to state her full name, and date of . In the procedure room, a timeout was called. The patient identity and procedure to be performed were verified with the patient ID band, the consent, and the marked site. All elements of maximal sterile barrier technique were used. With the patient supine on the fluoroscopy table, the right groin was assessed sonographically and the right common femoral artery targeted. Local anesthesia was administered with 1% lidocaine. A small eklly was placed in the skin. Micropuncture technique was then utilized under direct ultrasound guidance to puncture the artery; a 0.018 inch guidewire was introduced followed by a 2-in-1 dilator, then exchanged for a 0.035 inch wire and 5 Bolivian introducer sheath. Randal 5 Bolivian x 65 cm catheter was introduced and the celiac artery catheterize; hand celiac angiography was performed. A 0.035 inch glidewire was manipulated into the distal hepatic arteries, catheter exchanged for a 5 Bolivian Cobra glide catheter which was manipulated into the origin GDA. Digital angiography was then performed. [place] delivery microcatheter 45 degree tip was then inserted. All attempts at advancing the microcatheter more distally in the GJ were unsuccessful, and hand contrast injection revealed extravasation to the adjacent duodenal lumen. Three microcoils were then deployed, 2 mm x 2 cm, 2 mm x 4 cm, and 3 mm x 5 cm with complete occlusion proximal GDA. The microcatheter was removed. Subsequent hand injection via the 5 Bolivian catheter the proper hepatic was performed. The guide catheter was removed, and the Randal catheter reinserted. Celiac and SMA digital angiography were then performed. The Randal catheter was removed. Hand digital angiography right iliofemoral vessels was performed at the groin. The right groin was re-prepped, and a 5 Bolivian Vascade closure device was deployed right SWING MANAGER. The patient tolerated procedure well and there were no immediate complications. FINDINGS: Multiple clips region duodenum; normal celiac and hepatic anatomy. Abnormal GDA with a small truncated duodenal side branch, and angulated continuation more medially with small duodenal arcade branches demonstrated. All attempts to catheterize the latter were unsuccessful; contrast extravasation into the duodenum subsequently seen. At the latter site, three coils deployed with complete GDA occlusion. Follow-up angiography demonstrated the latter, and no other abnormality or site of bleeding identified. Normal right SWING MANAGER entry site pre closure device placement. PN RIS CONSOLIDATED 11-20-2023 Progress note Note Date/Time November 20, 2023 11:40am [facility] [address] [place] [address] Hospitalist Progress Note Signed Patient: Jenny Ewing MR#: [id number] : 1950 Acct:[id number] Age/Sex: 73 / F Adm Date: 4 Loc: Room: [address] [place] [address] Type: ADM IN Attending Dr: Jaspal Whalen [...] 11/18/23 09:00 11/20/23 09:05 Duloxetine 20 Mg Capsule. PO 11/17/24 08:59 40 mg QAM MARION [...] signed by Jaspal Whalen MD> 11/20/23 1140 [facility] Work Phone: 1(140) 225-836204-25-2024 Progress note Author Frantz Nieves [facility] November 19, 2023 1:51pm Note Date/Time November 19, 2023 11: 13am [facility] [address] [place] [address] Hospitalist Progress Note Signed Patient: Jenny Ewing MR#: [id number] : 1950 Acct:[id number] Age/Sex: 73 / F Adm Date: 4 Loc: Room: [address] [place] [address] Type: ADM IN Attending Dr: Frantz Nieves [...] to 7.1 ? 2 units PRBC at [place], prior to transfer here, received another 2 [...] DO> 11/19/23 1351 <Electronically signed by DO DENISE Mckeon> 11/19/23 1113 [facility] Work Phone: 1(613) 488-156904-25-2024 Progress note Author Seun Freitas [facility] November 19, 2023 9:54am Note Date/Time November 19, 2023 9:5 4am [facility] [address] [place] [address] Gastroenterology PN Signed Patient: Jenny Ewing MR#: [id number] : 1950 Acct:[id number] Age/Sex: 73 / F Adm Date: 4 Loc: Room: [address] [place] [address] Type: ADM IN Attending Dr: Frantz Nieves DO Copies to: MD Seun Wyman MD Shawn J Warner, DO~ Date of Service: 11/19/2023 Subjective Subjective Narrative: [...] signed by Seun Freitas MD> 11/19/23 0954 [facility] Work Phone: 1(575) 119-216704-24-2024 [facility] Progress note Author Frantz Nieves [facility] November 18, 2023 10:04am Note Date/Time November 18, 2023 10: 04am [facility] [address] [place] [address] Hospitalist Progress Note Signed Patient: Jenny Ewing MR#: [id number] : 1950 Acct:[id number] Age/Sex: 73 / F Adm Date: 4 Loc: Room: 5G3563-7 Type: ADM IN Attending Dr: Frantz Nieves [...] 25 Mg Tablet PO 11/17/24 08:59 QAM [facility] Tramadol HCl 100 mg 11/17/23 22:00 11/17/23 22:25 Tramadol 50 Mg Tablet PO 05/15/24 21:59 Not Given QID [facility] A&P - Hospitalist Assessment/Plan (1) Acute anemia: [...] 1001 Signed By: <Electronically signed by Frantz Nieves DO> 11/18/23 1004 [facility] Work Phone: 1(544) 884-229704-24-2024 Consult note Author Seun rFeitas [facility] November 18, 2023 9:03am Note Date/Time November 17, 2023 4:1 6pm [facility] [address] [place] [address] Gastroenterology Consult Note Signed Patient: Jenny Ewing MR#: [id number] : 1950 Acct:[id number] Age/Sex: 73 / F Adm Date: 4 Loc: Room: [address] [place] [address] Type: ADM IN Attending Dr: Frantz Nieves DO Copies to: MD Seun Wyman MD Shawn J Warner, DO~ HPI Data of Consult Date of Consultation: 11/17/23 Requesting Physician: Frantz Nieves DO Consult Narrative History of present illness: Ms. Ewing is a 73 year old [...] negative unless noted below or in HPI [facility] Medical History (Updated 11/18/23 @ 09:03 by [...] use + Cigarette smoking Hb: 4.8 at [place] Patient is hemodynamically stable -Trend CBC and transfuse as needed, ensure two large bore IVs at least. -Protonix 40 mg twice daily -Avoid NSAIDs -Goal Hgb >7.0 -Plan for EGD today. Please keep the patient n.p.o. after midnight Documented By: Seun Freitas MD 11/17/23 1612 Signed By: <Electronically signed by Seun Freitas MD> 11/18/23 0903 [facility] Work Phone: 1(485) 695-909804-23-2024 History and physical note Author Frantz Nieves [facility] November 17, 2023 6:33pm Note Date/Time November 17, 2023 3:5 9pm [facility] [address] [place] [address] Hospitalist H&P Signed Patient: Jenny Ewing MR#: [id number] : 1950 Acct:[id number] Age/Sex: 73 / F Adm Date: 4 Loc: Room: [address] [place] [address] Type: ADM IN Attending Dr: Frantz Nieves DO Copies to: Dale Mckeon DO, RES MD Frantz Wyman DO~ HPI DATE OF EXAMINATION: 11/17/23 CHIEF COMPLAINT: Anemia HISTORY OF PRESENT ILLNESS: 73-year-old female transferred from [facility] for severe anemia. 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 Thismorning the patient had acute episode of weakness in her lower extremities afterwhich she fell and hit the back of her neck and head without LOC. She was brought to the [place] ED by EMS. CT head, brain, and [...] mg Protonix. She was then transferred to [facility] for further workup of anemia and [...] x3, normal speech, appropriate mood and affect [facility] Medical History (Updated 11/17/23 @ 16:10 by [...] (6) Weakness: Plan 73-year-old female transferred from [facility] for severe anemia, weakness, and GI bleed. [...] GI bleed. Received 2 units PRBC at [place], 500 mL NS, ?Recheck H&H ?Continue Protonix [...] less than 7.0, please transfuse. - Frantz Nieves, DO IP vs OBS Justification Based on [...] DO> 11/17/23 1833 <Electronically signed by DO WALKER Dale Mckeon> 11/17/23 1623 [facility] Work Phone: [phone]) 285-314901-30-2024 History of Present illness Narrative* Catracho Sheriff [...] - 301 mOsmol/kg Final Comment: Performed at: [address] [id number] Sales Ledger Administrator: Arleen Wong MD, Phone: [phone] OSMOLALITY, URINE 08/11/2023 552 . mOsmol/kg Final Comment: 24 hr : 300 - 900 Random: 50 - 1400 After 12hr fluid restriction: >850 Performed at: [facility] [address] [id number] Sales Ledger Administrator: Arleen Wong MD, Phone: [phone] Clinisync Result Encounter on 08/04/2023 Component Date [...] 0.55 - 1.02 mg/dL Final TBH EGFR-AF SENEGALESE 08/04/2023 >60 >=60 Final TBH EGFR-NON AF SENEGALESE 08/04/2023 >60 >=60 Final BUN CREATININE RATIO [...] to the emergency room. documented in this encounterNOMO HealthcareDischarge summary Author Jaspal Whalen [facility] November 21, 2023 1:44pm Note Date/Time November 21, 2023 1:4 4pm [facility] [address] [place] [address] Discharge Summary Signed Patient: Jenny Ewing MR#: [id number] : 1950 Acct:[id number] Age/Sex: 73 / F Adm Date: 4 Loc: Room: [address] [place] [address]: Jaspal Whalen MD Copies to: [...] a 73-year-old female, who was transferred to from [facility], where she presented with weakness [...] Operation Date: 11/18/23 11:35 Actual Procedures p EGD(Not Applicable) - Seun Freitas MD Discharge Plan Discharge Plan Patient Disposition: Home Activity: No Activity Restriction Diet: Regular Instructions: Duodenal Ulcer (DC), Pantoprazole, Polysaccharide-Iron Complex Prescriptions: New pantoprazole [Protonix] 40 mg tablet,delayed release (DR/EC) 40 mg PO BID 90 Days Qty: 180 0RF Rx Instructions: 40 mg po bid x 4 weeks then 40 mg po daily; [facility] dispense accordingly polysaccharide iron complex 150 mg [...] signed by Jaspal Whalen MD> 11/21/23 1344 [facility] Work Phone: Evaluation note* Diagnosis [...] Weakness acute Weight loss, unintentional a cute [facility] Work Phone: Evaluation note* Diagnosis GI bleed- Primary Hemorrhage of gastrointestinal tract, unspecified Acute anemia GIB (gastrointestinal bleeding) Hemorrhage of gastrointestinal tract, unspecified Acute anemia Chronic pain syndrome Chronic respiratory failure with hypoxia (HCC) Chronic respiratory failure Dependence on supplemental oxygen Duodenal ulcer Duodenal ulcer, unspecified as acute or chronic, without hemorrhage, perforation, or obstruction Gastroesophageal reflux disease Esophageal reflux Generalized anxiety disorder Peripheral venous insufficiency Unspecified venous (peripheral) insufficiency Sleep dysfunction with arousal disturbance Tobacco user Tobacco use disorder PAF (paroxysmal atrial fibrillation) ([facility]) Atrial fibrillation documented in this encounter [facility] HEALTHEvaluation [facility]* Diagnosis Duodenal ulcer Duodenal ulcer, unspecified as acute or chronic, without hemorrhage, perforation, or obstruction documented [facility] Diagnosis Venous stasis ulcer of other part of lower leg limited to breakdown of skin without varicose veins, unspecified laterality (CMS/HCC)- Primary Cellulitis of lower extremity, unspecified laterality Venous stasis dermatitis of both lower extremities documented in this encounter [facility] HealthcareEvaluation note* Diagnosis Stasis dermatitis of both legs- Primary Non-pressure chronic ulcer of right lower leg, limited to breakdown of skin (CMS/HCC) Postsurgical hypothyroidism (CMS/HCC) Postsurgical hypothyroidism Acute anemia Hypokalemia Hypopotassemia Chronic pain syndrome documented in this encounter [facility] HealthcareEvaluation note* Diagnosis Cellulitis of lower extremity, unspecified laterality- Primary Abscess of left lower leg Venous ulcer of lower extremity due to chronic peripheral venous hypertension (HCC) (CMS/HCC) Non-pressure ulcer of lower extremity, limited to breakdown of skin, unspecified laterality (CMS/HCC) documented in this encounter [facility] HealthcareEvaluation note* Diagnosis Acquired hypothyroidism (CMS/HCC) Unspecified hypothyroidism documented in this encounter [facility]* Diagnosis Acquired hypothyroidism (CMS/HCC) Unspecified hypothyroidism documented in this encounter [facility]* Diagnosis Mucopurulent chronic bronchitis (CMS/HCC)- Primary Mucopurulent chronic bronchitis documented in this encounter [facility] HealthcareEvaluation note* Diagnosis Chronic pain syndrome- Primary Fibromyalgia Unspecified myalgia and myositis Primary osteoarthritis, left ankle and foot Primary osteoarthritis, right ankle and foot Arthritis of both knees 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 Generalized anxiety disorder (CMS/HCC) Generalized anxiety disorder Controlled substance agreement signed Polypharmacy Issue of repeat prescriptions Duodenal stricture Other obstruction of duodenum Venous stasis ulcer of other part of left lower leg limited to breakdown of skin without varicose veins (CMS/HCC) documented in this encounter [facility]* Diagnosis Generalized anxiety disorder (CMS/HCC)- Primary Generalized anxiety disorder Major depressive disorder, recurrent, in partial remission (HCC) (CMS/HCC) Chronic pain syndrome Left maxillary sinusitis Arthritis of both knees Fibromyalgia Unspecified myalgia and myositis Spondylosis of lumbar region without myelopathy or radiculopathy Duodenal stricture Other obstruction of duodenum Failed back syndrome of lumbar spine Peripheral edema Edema Postsurgical hypothyroidism (CMS/HCC) Postsurgical hypothyroidism Polypharmacy Issue of repeat prescriptions documented in this encounter [facility]* Diagnosis Generalized anxiety disorder (CMS/HCC) Generalized anxiety disorder documented in this encounter [facility] Summary Purpose Family History Relationship Condition Age at Onset Recorded Date/T nelly Not Specified Malignant neoplasm of stomach Unknown brother Malignant neoplasm of colon Unknown Advance Directives Advance Directive Response Recorded Date/ Time Advance Directives No November 16, 5:27am Latest Code Status on File Code Status Date Activated Date Inactivated Comments Full Code 11/25/2023 4:23 AM Code Status History Code Status Date Activated Date Inactivated Comments Full Code 11/25/2023 12:02 AM 11/25/2023 4:07 AM Healthcare Agents on File Name Relationship Healthcare Agent Relationshi p Communication Pearl Julien Child Primary Decision Maker Radha Ventura Friend Secondary Decision Maker Documents on File Type Date Recorded Patient Electrical Assembly 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 Expl anation ACP-Advance Directive 12/04/2023 1:41 PM Latest Code Status on File Code Status Date Activated Date Inactivated Comments Full Code 11/25/2023 4:23 AM 12/03/2023 8:11 PM Healthcare Agents on File Name Relationship Healthcare Agent Relationshi p Communication Pearl Julien Child Primary Decision Maker Radha Ventura Friend Secondary Decision Maker Documents on File Type Date Recorded Patient Electrical Assembly Technician Expl anation ACP-Advance Directive 12/04/2023 1:41 PM Date Activated Date Inactivated Comments 11/25/2023 4:23 AM 12/03/2023 8:11 PM Date Activated Date Inactivated Comments 11/25/2023 12:02 AM 11/25/2023 4:07 AM Healthcare Agents on File Name Relationship Healthcare Agent Relationshi p Communication Pearl Julien Child Primary Decision Maker Radha Ventura Friend Secondary Decision Maker Healthcare Agents on File Name Relationship Healthcare Agent Relationshi p Communication Pearl Julien Child Primary Decision Maker Radha Ventura Friend Secondary Decision Maker Chief Complaint and Reason for Visit Chief Complaint GI Bleed and anemia GI Bleed and anemia GI Bleed and anemia Reason for Visit Acute anemia Duodenal ulcer Excessive use of nonsteroidal anti-inflammatory drugs (NSAIDs) GI bleed Macrocytosis Tobacco abuse Weakness Weight loss, unintentional Additional Source Comments INFORMATION SOURCE (unrecogn ized section and content) DATE CREATED AUTHOR 08/29/2022 [facility] DATE CREATED AUTHOR AUTHOR'S ORGANIZ ATION 11/24/2023 [facility] DATE CREATED AUTHOR AUTHOR'S ORGANIZ ATION 12/11/2023 [facility] DATE CREATED AUTHOR AUTHOR'S ORGANIZ ATION 07/16/2024 [facility] DATE CREATED AUTHOR AUTHOR'S ORGANIZ ATION 08/04/2024 [facility] Reason for Visit (unrecogniz ed section and content) Reason Comments Recurrent Skin Infections Specialty Diagnoses / Procedures Referred By Contac t Referred To Contact Diagnoses GI bleed GI bleed [facility] [address] [place] [address] [facility] [address] [place] [address] Referral ID Status Reason Start Date Expiration Date Visits Re quested Visits Authorized [id number] 1 1 Specialty Diagnoses / Procedures Referred By Contac t Referred To Contact Diagnoses Duodenal ulcer Duodenal ulcer [K26.9] Procedures NC EGD TRANSORAL BIOPSY SINGLE/MULTIPLE ESOPHAGOGASTRODUODENOSCOPY BIOPSY Nicky Ugarte MD [address] [facility] [address] [place] [address] [facility] [address] [place] [address] Referral ID Status Reason Start Date Expiration Date Visits Re quested Visits Authorized [id number] 1 1 Reason Comments Wound Check Reason Comments wound check Reason Comments Wound Infection Reason Comments Med Refill Reason Comments Anxiety Pain Care Teams (unrecognized sec tion and content) Route Clerk Relationship Specialty Start Date End Date Catracho Sheriff MD [address] [place] [address] PCP - [employer] 07/27/22 Catracho Sheriff MD [address] [facility] [place] [phone] PCP - General Family Medicine 01/05/23 Team [...] Other Provider Active Start: November 17, 2023 Route Clerk Relationship Specialty Start Date End Date Catracho Sheriff MD [address] [place] [address] (Fax) PCP - General 01/29/24 Route Clerk Relationship Specialty Start Date End Date Catracho Sheriff MD [address] [place] [address] (Fax) PCP - General 01/29/24 Route Clerk Relationship Specialty Start Date End Date Catracho Sheriff MD [address] [place] [address] (Fax) PCP - [employer] 07/27/22 Catracho Sheriff MD [address] [place] [address] PCP - General Family Medicine 01/05/23 Payal Gaona DO [address] [place] [address] Referring Physician Neurology 09/03/23 Aimee Truong, RN Registered Nurse Family Medicine 12/23/23 Route Clerk Relationship Specialty Start Date End Date Catracho Sheriff MD [address] [place] [address] (Fax) PCP - [employer] 07/27/22 Catracho Sheriff MD [address] [place] [phone] PCP - General Family Medicine 01/05/23 Payal Gaona DO [address] [place] [address] Referring Physician Neurology 09/03/23 Aimee Truong, RN Registered Nurse Family Medicine 12/23/23 Route Clerk Relationship Specialty Start Date End Date Catracho Sheriff MD [address] [place] [address] (Fax) PCP - [employer] 07/27/22 Catracho Sheriff MD [address] [place] [address] PCP - General Family Medicine 01/05/23 Payal Gaona DO [address] [place] [address] Referring Physician Neurology 09/03/23 Aimee Truong RN Registered Nurse Family Medicine 12/23/23 Route Clerk Relationship Specialty Start Date End Date Catracho Sheriff MD [address] [place] [facility] [place] [address] (Fax) PCP - [employer] 07/27/22 Catracho Sheriff MD [address] [place] [address] PCP - General Family Medicine 01/05/23 Payal Gaona DO [address] [place] [address] Referring Physician Neurology 09/03/23 Aimee Truong RN Registered Nurse Family Medicine 12/23/23 Route Clerk Relationship Specialty Start Date End Date Catracho Sheriff MD [address] [facility] [place] [address] (Fax) PCP - [employer] 07/27/22 Catracho Sheriff MD [address] [place] [address] PCP - General Family Medicine 01/05/23 Payal Gaona DO [address] [place] [address] Referring Physician Neurology 09/03/23 Aimee Truong, RN Registered Nurse Family Medicine 12/23/23 Route Clerk Relationship Specialty Start Date End Date Catracho Sheriff MD [address] [place] [facility] [place] [address] (Fax) PCP - [employer] 07/27/22 Catracho Sheriff MD [address] [place] [place] [address] PCP - General Family Medicine 01/05/23 Payal Gaona DO [address] [place] [address] Referring Physician Neurology 09/03/23 Aimee Truong, IGOR Registered Nurse Family Medicine 12/23/23 Route Clerk Relationship Specialty Start Date End Date Catracho Sheriff MD [address] [place] [address] (Fax) PCP - [employer] 07/27/22 Catracho Sheriff MD [address] [place] [address] (Fax) PCP - General Family Medicine 01/05/23 Payal Gaona DO [address] [place] [address] Referring Physician Neurology 09/03/23 Aimee Truong, IOGR Registered Nurse Family Medicine 12/23/23 Route Clerk Relationship Specialty Start Date End Date Catracho Sheriff MD [address] [place] [address] (Fax) PCP - [employer] 07/27/22 Catracho Sheriff MD [address] [address] (Fax) PCP - General Family Medicine 01/05/23 Payal Gaona DO [address] [place] [address] Referring Physician Neurology 09/03/23 Aimee Truong RN Registered Nurse Family Medicine 12/23/23 Route Clerk Relationship Specialty Start Date End Date Catracho Sheriff MD [address] [place] [address] (Fax) PCP - [employer] 07/27/22 Catracho Sheriff MD [address] [place] [address] (Fax) PCP - General Family Medicine 01/05/23 Payal Gaona DO [address] [place] [address] Referring Physician Neurology 09/03/23 Aimee Truong, IGOR Registered Nurse Family Medicine 12/23/23 Route Clerk Relationship Specialty Start Date End Date Catracho Sheriff MD [address] [place] [address] (Fax) PCP - [employer] 07/27/22 Catracho Sheriff MD [address] [place] [address] (Fax) PCP - General Family Medicine 01/05/23 Payal Gaona DO [address] [place] [address] Referring Physician Neurology 09/03/23 Aimee Truong, RN Registered Nurse Family Medicine 12/23/23 Route Clerk Relationship Specialty Start Date End Date Catracho Sheriff MD [address] [facility] [place] [address] (Fax) PCP - [employer] 07/27/22 Catracho Sheriff MD [address] [place] [phone] PCP - General Family Medicine 01/05/23 Payal Gaona DO [address] [place] [address] Referring Physician Neurology 09/03/23 Aimee Truong RN Registered Nurse Family Medicine 12/23/23 Route Clerk Relationship Specialty Start Date End Date Catracho Sheriff MD [address] [facility] [place] [address] (Fax) PCP - [employer] 07/27/22 Catracho Sheriff MD [address] [place] [phone] PCP - General Family Medicine 01/05/23 Payal Gaona DO [address] [place] [address] Referring Physician Neurology 09/03/23 Aimee Truong, RN Registered Nurse Family Medicine 12/23/23 Route Clerk Relationship Specialty Start Date End Date Catracho Sheriff MD [address] [place] [address] (Fax) PCP - [employer] 07/27/22 Catracho Sheriff MD [address] [place] [address] (Fax) PCP - General Family Medicine 01/05/23 Payal Gaona DO [address] [place] [address] Referring Physician Neurology 09/03/23 Aimee Truong, RN Registered Nurse Family Medicine 12/23/23 Route Clerk Relationship Specialty Start Date End Date Catracho Sheriff MD (Fax) PCP - General 01/29/24 Route Clerk Relationship Specialty Start Date End Date Catracho Sheriff MD [address] [place] [address] (Fax) PCP - [employer] 07/27/22 Catracho Sheriff MD [address] [place] [address] (Fax) PCP - General Family Medicine 01/05/23 Payal Gaona DO [address] [place] [address] Referring Physician Neurology 09/03/23 Aimee Truong, RN Registered Nurse Family Medicine 12/23/23 Route Clerk Relationship Specialty Start Date End Date Catracho Sheriff MD [address] [place] [facility] [place] [address] (Fax) PCP - General 01/29/24 Route Clerk Relationship Specialty Start Date End Date Catracho Sheriff MD [address] [place] [address] (Fax) PCP - [employer] 07/27/22 Catracho Sheriff MD [address] [place] [address] (Fax) PCP - General Family Medicine 01/05/23 Payal Gaona DO [address] [place] [id number] Referring Physician Neurology 09/03/23 Aimee Truong, RN Registered Nurse Family Medicine 12/23/23 Ordered Prescriptions (unrec ognized section and content) Prescription Sig Dispensed Refills Start Date End Da te amoxicillin-clavulanate (AUGMENTIN) 875-125 MG per tablet Take 1 tablet by mouth every 12 hours for 7 days 14 tablet 0 12/02/2023 12/09/2023 albuterol sulfate HFA (PROVENTIL;VENTOLIN;PROA IR) 108 (90 Base) MCG/ACT inhaler Inhale 2 puffs into the lungs every 6 hours as needed for Wheezing 18 g 3 12/02/2023 Scheduled Active and Recently Administ ered Medications (unrecognized section and content) Medication Order 12/01/2023 12/02/2023 12/03/2023 amoxicillin-clavulanate (AUGMENTIN) 875-125 MG per tablet 1 tablet 1 tablet, Oral, EVERY 12 HOURS SCHEDULED (2 times per day), First dose on Thu11/29/23 at 2100, Until Discontinued, Antimicrobial Indications: Other, Other Abx Indication: Sinusitis 0721 (MAR Hold - Provider: Annika Autohold - Reason: Unreviewed Transfer Orders)0900 (Automatically Held - Provider: Annika Autohold)0959 (MAR Unhold - Provider: Riri Salomon RN)111 (Given - Provider: Lindsay Webb RN - Comment: Unheld by provider still needed to be given.)2037 (Given - Provider: Dinorah Mcfadden RN) 0811 (Given - Provider: Lindsay Webb RN)2045 (Given - Provider: Jorge Mcfarland, IGOR) 0855 (Given - Provider: Nicolasa Pacheco RN)2099 (Due) baclofen (LIORESAL) tablet 10 mg 10 mg, Oral, 2 TIMES DAILY WITH MEALS, First dose on Thu11/25/23 at 1700, Until Discontinued 07 (MAR Hold - Provider: Annika Autohold - Reason: Unreviewed Transfer Orders)0900 (Automatically Held - Provider: Annika Autohold)0959 (MAR Unhold - Provider: Riri Salomon RN)1119 (Given - Provider: Lindsay Webb RN - Comment: Unheld by provider still needed to be given after EGD)2037 (Given - Provider: Dinorah Mcfadden RN) 0811 (Given - Provider: Lindsay Webb RN)2045 (Given - Provider: Jorge Mcfarland RN) 0855 (Given - Provider: Nicolasa Pacheco RN)2099 (Due) busPIRone (BUSPAR) tablet 15 mg 15 mg, Oral, 2 TIMES DAILY WITH MEALS, First dose on Thu11/25/23 at 1700, Until Discontinued, This 15 mg tablet can be split into thirds (5 mg) or halves (7.5 mg) based on the ordered dose. 0721 (MAR Hold - Provider: Annika Autohold - Reason: Unreviewed Transfer Orders)0800 (Automatically Held - Provider: Annika Autohold)0959 (MAR Unhold - Provider: Riri Salomon RN)1119 (Given - Provider: Lindsay Webb RN - Comment: Unheld by provider still needed to be given after EGD)1936 (Not Given - Provider: Lindsay Webb RN - Reason: Other - Comment: too close to nightly dose) 0811 (Given - Provider: Lindsay Webb RN)1727 (Given - Provider: Lindsay Webb RN) 0854 (Given - Provider: Nicolasa Pacheco, IGOR)1612 (Given - Provider: Nicolasa Pacheco RN) busPIRone (BUSPAR) tablet 30 mg 30 mg, Oral, Nightly, First dose on Thu11/25/23 at 2100, Until Discontinued, This 15 mg tablet can be split into thirds (5 mg) or halves (7.5 mg) based on the ordered dose. 0721 (MAR Hold - Provider: Annika Autohold - Reason: Unreviewed Transfer Orders)0959 (MAR Unhold - Provider: Riri Salomon RN)2033 (Given - Provider: Dinorah Mcfadden RN) 2045 (Given - Provider: Jorge Mcfarland RN) 2099 (Due) doxepin (SINEQUAN) capsule 10 mg 10 mg, Oral, NIGHTLY, First dose on Thu11/29/23 at 2100, Until Discontinued 0721 (MAR Hold - Provider: Annika Autohold - Reason: Unreviewed Transfer Orders)0959 (MAR Unhold - Provider: Riri Salomon RN)2037 (Given - Provider: Dinorah Mcfadden RN) 2045 (Given - Provider: Jorge Mcfarland RN) 2099 (Due) DULoxetine (CYMBALTA) extended release capsule 40 mg 40 mg, Oral, DAILY, First dose on Thu11/25/23 at 1500, Until Discontinued, Do not crush or break. May add contents of capsule to apple juice or apple sauce, but not chocolate. 0721 (MAR Hold - Provider: Annika Autohold - Reason: Unreviewed Transfer Orders)0959 (MAR Unhold - Provider: Riri Salomon RN)1120 (Given - Provider: Lindsay Webb RN - Comment: Unheld by provider. Still needs to be given after EGD was completed.)1122 (Not Given - Provider: Lindsay Webb RN - Reason: Other - Comment: duplicate order) 0811 (Given - Provider: Lindsay Webb RN) 0854 (Given - Provider: Nicolasa Pacheco RN) fluticasone (FLOVENT HFA) 110 MCG/ACT inhaler 1 puff 1 puff, Inhalation, 2 TIMES DAILY RESP, First dose on Thu11/28/23 at 1015, Until Discontinued, Rinse mouth out with water (without swallowing) after every dose. 0721 (SEP Hold - Provider: Annika Autohold - Reason: Unreviewed Transfer Orders)0800 (Automatically Held - Provider: Annika Autohold)0959 (MAR Unhold - Provider: Riri Salomon RN)2019 (Given - Provider: Gabriel Bush RCP) 0804 (Given - Provider: Carolyn Luna RCP)1950 (Given - Provider: Shannon Martin RCP) 0754 (Given - Provider: Elaine López RCP)1999 (Due) furosemide (LASIX) injection 20 mg (COMPLETED) 20 mg, IntraVENous, ONCE, 1 dose, On Thu12/01/23 at 1915 1858 (Given - Provider: Lindsay Webb RN) Hydrocerin (EUCERIN) cream CREA Topical, 2 TIMES DAILY, First dose on Thu11/26/23 at 2100, Apply to bilateral lower extremities. 0721 (SEP Hold - Provider: Annika Autohold - Reason: Unreviewed Transfer Orders)0900 (Automatically Held - Provider: Annika Autohold)0959 ([facility] Unhold - Provider: Riri Salomon RN)2037 (Given - Provider: Dinorah Mcfadden RN - Comment: both legs) 0900 (Due)2327 (Not Given - Provider: Jorge Mcfarland RN - Reason: Patient/family refused) 0900 (Not Given - Provider: Nicolasa Pacheco RN - Reason: Other)2100 (Due) hydrocortisone (CORTEF) tablet 5 mg 5 mg, Oral, DAILY WITH LUNCH, First dose on Thu11/25/23 at 1500, Until Discontinued 0721 (SEP Hold - Provider: Annika Autohold - Reason: Unreviewed Transfer Orders)0959 ([facility] Unhold - Provider: Riri Salomon RN)1258 (Given - Provider: Lindsay Webb RN) 1232 (Given - Provider: Lindsay Webb RN) 1612 (Given - Provider: Nicolasa Pacheco RN) hydrocortisone (CORTEF) tablet 7.5 mg 7.5 mg, Oral, DAILY BEFORE BREAKFAST, First dose on Thu11/26/23 at 0700, Until Discontinued 0721 (MAR Hold - Provider: Annika Autohold - Reason: Unreviewed Transfer Orders)0959 (MAR Unhold - Provider: Riri Salomon RN)1059 (Given - Provider: Lindsay Webb RN) 0811 (Given - Provider: Lindsay Webb RN) 0854 (Given - Provider: Nicolasa Pacheco RN) ipratropium 0.5 mg-albuterol 2.5 mg (DUONEB) nebulizer solution 1 Dose 1 Dose, Inhalation, 3 TIMES DAILY RESP, First dose (after last modification) on Thu11/28/23 at 1400, Until Discontinued, Initiate RT Bronchodilator Protocol: Yes - Inpatient Protocol 0721 (SEP Hold - Provider: Annika Autohold - Reason: Unreviewed Transfer Orders)0800 (Automatically Held - Provider: Annika Watsonhold)0959 (MAR Unhold - Provider: Riri Salomon RN)1400 (Not Given - Provider: Fany Cash RCP - Reason: Other)2019 (Given - Provider: Gabriel Bush RCP) 0803 (Given - Provider: Carolyn Luna RCP)1438 (Given - Provider: Carolyn Luna RCP)1949 (Given - Provider: Shannon Martin RCP) 0756 (Given - Provider: Elaine López RCP)1521 (Given - Provider: Elaine López RCP)2000 (Due) ipratropium 0.5 mg-albuterol 2.5 mg (DUONEB) nebulizer solution 1 Dose (COMPLETED) 1 Dose, Inhalation, ONCE, 1 dose, On Thu12/01/23 at 0815, Initiate RT Bronchodilator Protocol: No 0750 (Given - Provider: Julia Arevalo RN) levothyroxine (SYNTHROID) tablet 175 mcg 175 mcg, Oral, DAILY BEFORE BREAKFAST, First dose (after last modification) on Thu12/01/23 at 0700, Until Discontinued, Tube feeding (TF) interaction, obtain physician order to manage, recommend holding TF for 30 minutes before and after dose. 0721 (SEP Hold - Provider: Annika Autohold - Reason: Unreviewed Transfer Orders)0959 (MAR Unhold - Provider: Riri Salomon RN)1059 (Given - Provider: Lindsay Webb RN) 0628 (Given - Provider: Dinorah Mcfadden RN) 0511 (Given - Provider: Jorge Mcfarland RN) metoprolol tartrate (LOPRESSOR) tablet 12.5 mg 12.5 mg, Oral, 2 TIMES DAILY, First dose on Thu12/03/23 at 0945, Until Discontinued 1059 (Given - Provider: Nicolasa Pacheco RN)2100 (Due) pantoprazole (PROTONIX) tablet 40 mg (CANCELED) 40 mg, Oral, DAILY BEFORE BREAKFAST, First dose on Thu12/02/23 at 0700, Until Discontinued, Do not crush or break. 06 (Given - Provider: Dinorah Mcfadden RN) pantoprazole (PROTONIX) tablet 40 mg 40 mg, Oral, 2 TIMES DAILY BEFORE MEALS, First dose (after last modification) on Thu12/02/23 at 2000, Until Discontinued, Do not crush or break. 2047 (Given - Provider: Jorge Mcfarland RN) 05 (Given - Provider: Jorge Mcfarland RN)1613 (Given - Provider: Nicolasa Pacheco RN) sodium chloride flush 0.9 % injection 5-40 mL 5-40 mL, IntraVENous, EVERY 12 HOURS SCHEDULED (2 times per day), First dose on Thu11/25/23 at 0900, Until Discontinued, For Line Patency: Peripheral IV = 5 mL; Midline or Central Line = 10 mL/lumen. If following IV push medication, administer flush at same rate as the IV push. Flush volume is determined by type of infusion therapy being given. For non-viscous solutions use: Peripheral IV = 5 mL Midline or Central Line = 10 mL/lumen For viscous solutions (i.e. blood components, parenteral nutrition, contrast media, or after obtaining blood sample) use: Peripheral IV = 10 mL Midline or Central Line = 20 mL/lumen 0721 (MAR Hold - Provider: Annika Autohold - Reason: Unreviewed Transfer Orders)0900 (Automatically Held - Provider: Annika Autohold)0959 (MAR Unhold - Provider: Riri Salomon RN)204 (Not Given - Provider: Dinorah Mcfadden RN - Reason: Other - Comment: double order) 0813 (Given - Provider: Lindsay Webb RN)2002 (Canceled Entry - Provider: Jorge Mcfarland RN) 0958 (Canceled Entry - Provider: Nicolasa Pacheco, IGOR)2100 (Due) sodium chloride flush 0.9 % injection 5-40 mL 5-40 mL, IntraVENous, EVERY 12 HOURS SCHEDULED (2 times per day), First dose on Thu12/01/23 at 1015, Until Discontinued, For Line Patency: Peripheral IV = 5 mL; Midline or Central Line = 10 mL/lumen. If following IV push medication, administer flush at same rate as the IV push. Flush volume is determined by type of infusion therapy being given. For non-viscous solutions use: Peripheral IV = 5 mL Midline or Central Line = 10 mL/lumen For viscous solutions (i.e. blood components, parenteral nutrition, contrast media, or after obtaining blood sample) use: Peripheral IV = 10 mL Midline or Central Line = 20 mL/lumen, PACU only 1121 (Not Given - Provider: Lindsay Webb RN - Reason: IV Fluid Infusing)2039 (Given - Provider: Dinorah Mcfadden RN) 0815 (Not Given - Provider: Lindsay Webb RN - Reason: Other - Comment: only one iv)2002 (Canceled Entry - Provider: Jorge Mcfarland RN) 0855 (Given - Provider: Nicolasa Pacheco, IGOR)2100 (Due) PRN Medication Order 12/01/2023 12/02/2023 12/03/2023 0.9 % sodium chloride infusion IntraVENous, at 5-250 mL/hr, PRN, if patient receiving piggyback infusions and maintenance fluids are not ordered OR KVO fluids to protect IV site / prevent frequent line interruptions/ long duration, Starting on Thu11/25/23 at 0421, For piggyback infusion, administer at same rate as piggyback for a total of 25 mL. Enter 25 mL into dose field and piggyback rate into rate field of order. If piggyback is infusing at a rate less than 100 mL/hr, enter 25 mL into dose field and 100 mL/hr into rate field of order. For KVO fluids, enter rate of 20 mL/hr or less into rate field of order. 0721 (MAR Hold - Provider: Annika Autohold - Reason: Unreviewed Transfer Orders)958 ([facility] Unhold - Provider: Riri Salomon RN) 0.9 % sodium chloride infusion IntraVENous, at 5-250 mL/hr, PRN, if patient receiving piggyback infusions and maintenance fluids are not ordered OR KVO fluids to protect IV site / prevent frequent line interruptions/ long duration, Starting on Thu12/01/23 at 0958, For piggyback infusion, administer at same rate as piggyback for a total of 25 mL. Enter 25 mL into dose field and piggyback rate into rate field of order. If piggyback is infusing at a rate less than 100 mL/hr, enter 25 mL into dose field and 100 mL/hr into rate field of order. For KVO fluids, enter rate of 20 mL/hr or less into rate field of order., PACU only acetaminophen (TYLENOL) suppository 650 mg(Linked Group 1) 650 mg, Rectal, EVERY 6 HOURS PRN, Starting on Thu11/25/23 at 0421, Until Discontinued, Pain Mild (1-3), Fever, For temp greater than 100.4 F (38 C), Administer if oral route cannot be used. 720 ([facility] Hold - Provider: [facility] Autohold - Reason: Unreviewed Transfer Orders)958 ([facility] Unhold - Provider: Riri Salomon RN) acetaminophen (TYLENOL) tablet 650 mg(Linked Group 1) 650 mg, Oral, EVERY 6 HOURS PRN, Starting on Thu11/25/23 at 0421, Until Discontinued, Pain Mild (1-3), Fever, For temp greater than 100.4 F (38 C), Maximum dose of acetaminophen is 4000 mg from all sources in 24 hours. 720 ([facility] Hold - Provider: Annika Autohold - Reason: Unreviewed Transfer Orders)958 ([facility] Unhold - Provider: Riri Salomon RN) albuterol sulfate HFA (PROVENTIL;VENTOLIN;PROAIR ) 108 (90 Base) MCG/ACT inhaler 2 puff 2 puff, Inhalation, EVERY 6 HOURS PRN, Starting on Thu11/25/23 at 0836, Until Discontinued, Wheezing, Initiate RT Bronchodilator Protocol: Yes - Inpatient Protocol 720 ([facility] Hold - Provider: [facility] Autohold - Reason: Unreviewed Transfer Orders)958 ([facility] Unhold - Provider: Riri Salomon RN) EPINEPHrine (EPINEPHrine HCL) 1 mg/10 mL injection (CANCELED) PRN, Starting on Thu12/01/23 at 0827, Until Thu12/01/23 at 0828, Intra-op 08 (Given - Provider: Manasa Pollock MD) fentaNYL (SUBLIMAZE) injection 25 mcg 25 mcg, IntraVENous, EVERY 2 HOURS PRN, Starting on Thu11/25/23 at 0828, Until Discontinued, Pain Severe (7-10), If oral and IV narcotics ordered, use oral first and only use IV if oral is ineffective or cannot take oral. Do Not give oral and IV within 1 hour of each other unless specifically ordered. 720 (SEP Hold - Provider: Annika Autohold - Reason: Unreviewed Transfer Orders)958 (SEP Unhold - Provider: Riri Salomon RN) hydrALAZINE (APRESOLINE) injection 10 mg(Linked Group 2) 10 mg, IntraVENous, EVERY 15 MIN PRN, 2 doses, Starting on Thu12/01/23 at 0958, Until Discontinued, High Blood Pressure, for SBP greater than 180 mmHg for 2 consecutive measurements taken from different sites, If heart rate is greater than 60 bpm, hold hydralazine and use labetalol if ordered, otherwise contact provider. Inform provider if SBP is still greater than 180 mmHg 10 minutes after second antihypertensive dose is administered., PACU only HYDROmorphone (DILAUDID) injection 0.25 mg 0.25 mg, IntraVENous, EVERY 5 MIN PRN, 2 doses, Starting on Thu12/01/23 at 0958, Until Discontinued, Pain Moderate (4-6), For Phase I. If Phase II oral narcotics have been administered in the last 60 minutes, do not administer IV narcotics unless specifically approved by provider., PACU only HYDROmorphone (DILAUDID) injection 0.5 mg 0.5 mg, IntraVENous, EVERY 5 MIN PRN, 2 doses, Starting on Thu12/01/23 at 0958, Until Discontinued, Pain Severe (7-10), For Phase I. If Phase II oral narcotics have been administered in the last 60 minutes, do not administer IV narcotics unless specifically approved by provider., PACU only hypromellose (ISOPTO TEARS) 0.5 % ophthalmic solution 2 drop 2 drop, Both Eyes, EVERY 6 HOURS PRN, Starting on Thu11/25/23 at 1031, Until Discontinued, Dry Eyes 07 ([facility] Hold - Provider: Annika Autohold - Reason: Unreviewed Transfer Orders)0959 ([facility] Unhold - Provider: Riri Salomon, IGOR) labetalol (NORMODYNE;TRANDATE) injection 10 mg(Linked Group 2) 10 mg, IntraVENous, EVERY 15 MIN PRN, 2 doses, Starting on Thu12/01/23 at 0958, Until Discontinued, High Blood Pressure, for SBP greater than 180 mmHg for 2 consecutive measurements taken from different sites., If heart rate is 60 bpm or less hold labetalol and use hydralazine if ordered, otherwise contact provider. Inform provider if SBP is still greater than 180 mmHg, 10 minutes after second antihypertensive dose is administered., PACU only loperamide (IMODIUM) capsule 2 mg 2 mg, Oral, 4 TIMES DAILY PRN, Starting on 11/28/23 at 2302, Until Discontinued, Diarrhea, After each loose stool. 0721 ([facility] Hold - Provider: Annika Autohold - Reason: Unreviewed Transfer Orders)0959 ([facility] Unhold - Provider: Riri Salomon RN) LORazepam (ATIVAN) injection 0.5 mg 0.5 mg, IntraVENous, EVERY 4 HOURS PRN, Starting on Thu11/29/23 at 1208, Until Discontinued, Anxiety, Immediately prior to intravenous use, lorazepam Injection must be diluted with at least an equal volume of compatible solution (NS or D5W). 0721 ([facility] Hold - Provider: Annika Autohold - Reason: Unreviewed Transfer Orders)0959 ([facility] Unhold - Provider: Riri Salomon, IGOR)5 (Given - Provider: Dinorah Mcfadden RN) 7 (Given - Provider: Jorge Mcfarland, IGOR) 0515 (Given - Provider: Jorge Mcfarland RN) magnesium sulfate 1000 mg in dextrose 5% 100 mL IVPB 1,000 mg, IntraVENous, at 100 mL/hr, Administer over 1 Hours, PRN, Other, Per Magnesium IV Replacement Protocol, Starting on Sara 11/26/23 at 0921, Mg Lab Replacement Action 1.4-1.6 1 gram IVPB x 2 doses (2 gram Total) 1.0-1.3 1 gram IVPB x 4 doses (4 gram Total) <1.0 CALL PHYSICIAN and 1 gram IVPB x 4 doses (4 gram Total) Infuse at 1 gram/hr Repeat Mag level next AM Protocol not for use in Patients with CrCl<30ml/min 0721 ([facility] Hold - Provider: [facility] Autohold - Reason: Unreviewed Transfer Orders)0959 ([facility] Unhold - Provider: Riri Salomon, IGOR) melatonin tablet 3 mg 3 mg, Oral, NIGHTLY PRN, Starting on Thu11/26/23 at 0440, Until Discontinued, Sleep 0721 ([facility] Hold - Provider: [facility] Autohold - Reason: Unreviewed Transfer Orders)0959 ([facility] Unhold - Provider: Riri Salomon RN) 2047 (Given - Provider: Jorge Mcfarland RN) midodrine (PROAMATINE) tablet 10 mg 10 mg, Oral, 3 TIMES DAILY PRN, Starting on Thu11/26/23 at 0434, Until Discontinued, sbp<100, Do not give after 1800 or within 4 hrs of bedtime. 0721 ([facility] Hold - Provider: [facility] Autohold - Reason: Unreviewed Transfer Orders)0959 ([facility] Unhold - Provider: Riri Salomon RN) naloxone 0.4 mg in 10 mL sodium chloride syringe IntraVENous, PRN, Opioid Reversal, Starting on Thu12/01/23 at 0958, PRN if respiratory rate is less than 6/min and patient is difficult to arouse then notify physician STAT. Mix 9 mL of sodium chloride 0.9% with 0.4 mg (1 mL) of naloxone (NARCAN) in 10 mL syringe. (Note: dilution is 0.04 mg/mL) Give 0.08 mg (2 mL of special dilution), slow IV push, repeat up to 0.4 mg (10 mL) or until patient is responsive to physical stimulation and respiratory rate is equal to or greater than 6 breaths/min. Continue to observe, if no response within 3 minutes of administration of 0.4 mg (10 mL) total, repeat dose (0.4 mg as administered previously). Concentration 0.04 mg/mL, PACU only ondansetron (ZOFRAN) injection 4 mg(Linked Group 3) 4 mg, IntraVENous, EVERY 6 HOURS PRN, Starting on Thu11/25/23 at 0421, Until Discontinued, Nausea, Vomiting, Administer if oral route cannot be used. 0721 ([facility] Hold - Provider: Annika Autohold - Reason: Unreviewed Transfer Orders)0959 ([facility] Unhold - Provider: Riri Salomon RN) ondansetron (ZOFRAN-ODT) disintegrating tablet 4 mg(Linked Group 3) 4 mg, Oral, EVERY 8 HOURS PRN, Starting on Thu11/25/23 at 0421, Until Discontinued, Nausea, Vomiting 0721 ([facility] Hold - Provider: [facility] Autohold - Reason: Unreviewed Transfer Orders)0959 ([facility] Unhold - Provider: Riri Salomon RN) potassium bicarb-citric acid (EFFER-K) effervescent tablet 40 mEq(Linked Group 4) 40 mEq, Oral, PRN, Starting on Thu11/26/23 at 0626, Until Discontinued, Per Potassium Replacement Protocol, Administer as alternative if patient unable to tolerate oral tablet. K Lab Replacement Action 3.1 to 3.5 40 mEq ORAL x 1 Under 3.1 Refer to IV replacement protocol Recheck K level in AM. Protocol not for use in patients with CrCl less than 30 mL/min. Do not chew or crush. Dissolve flavored tablets completely in 3 to 4 ounces of cold water; unflavored tablets may be dissolved in 3 to 4 ounces of cold juice. Patient to sip slowly over a 5 to 10 minute period. May further dilute if GI adverse effects occur. 0721 ([facility] Hold - Provider: [facility] Autohold - Reason: Unreviewed Transfer Orders)0959 ([facility] Unhold - Provider: Riri Salomon RN) 0900 (Given - Provider: Nicolasa Pacheco RN) potassium chloride (KLOR-CON M) extended release tablet 40 mEq(Linked Group 4) 40 mEq, Oral, PRN, Starting on Thu11/26/23 at 0626, Until Discontinued, Per Potassium Replacement Protocol, May give alternative linked oral order (ordered as effervescent, packet, or liquid solution) if patient unable to tolerate tablet. K Lab Replacement Action 3.1 to 3.5 40 mEq ORAL x 1 Under 3.1 Refer to IV replacement protocol Recheck K level in AM. Protocol not for use in patients with CrCl less than 30 mL/min. Do not crush, chew, or suck on tablet. Tablet may also be broken in half and each half swallowed separately. 0721 ([facility] Hold - Provider: Annika Autohold - Reason: Unreviewed Transfer Orders)0959 ([facility] Unhold - Provider: Riri Salomon RN) 0900 (See Alternative - Provider: Nicolasa Pacheco RN) potassium chloride 10 mEq/100 mL IVPB (Peripheral Line)(Linked Group 4) 10 mEq, IntraVENous, PRN, Starting on Thu11/26/23 at 0626, Until Discontinued, at 100 mL/hr, Per Potassium Replacement Protocol, K Lab Replacement Action 2.7 to 3.0 10 mEq IVPB x 6 doses (60 mEq Total) Under 2.7 CALL PROVIDER and administer 10 mEq IVPB x 6 doses (60 mEq Total) Infuse at 10 mEq/hr. Repeat Potassium lab 1 hour after final administration. Protocol not for use in patients with CrCl less than 30 mL/min. 0721 ([facility] Hold - Provider: Annika Autohold - Reason: Unreviewed Transfer Orders)0959 ([facility] Unhold - Provider: Riri Salomon RN) 0900 (See Alternative - Provider: Nicolasa Pacheco RN) sodium chloride (OCEAN) 0.65 % nasal spray 1 spray 1 spray, Each Nostril, PRN, Starting on Thu11/25/23 at 1352, Until Discontinued, Congestion 0721 ([facility] Hold - Provider: Annika Autohold - Reason: Unreviewed Transfer Orders)0959 ([facility] Unhold - Provider: Riri Salomon RN) sodium chloride flush 0.9 % injection 5-40 mL 5-40 mL, IntraVENous, PRN, Starting on Thu12/01/23 at 0958, Until Discontinued, Line Care, After every IV line use, For Line Patency: Peripheral IV = 5 mL; Midline or Central Line = 10 mL/lumen. If following IV push medication, administer flush at same rate as the IV push. Flush volume is determined by type of infusion therapy being given. For non-viscous solutions use: Peripheral IV = 5 mL Midline or Central Line = 10 mL/lumen For viscous solutions (i.e. blood components, parenteral nutrition, contrast media, or after obtaining blood sample) use: Peripheral IV = 10 mL Midline or Central Line = 20 mL/lumen, PACU only traMADol (ULTRAM) tablet 100 mg 100 mg, Oral, EVERY 6 HOURS PRN, Starting on Thu11/25/23 at 2127, Until Discontinued, Pain Moderate (4-6), Pain Mild (1-3), Allowed for higher pain score per patient request 0721 (SEP Hold - Provider: [facility] Autohold - Reason: Unreviewed Transfer Orders)0959 ([facility] Unhold - Provider: Riri Salomon, IGOR) 0447 (Given - Provider: Dinorah Mcfadden, IGOR)1334 (Given - Provider: Lindsay Webb RN)2047 (Given - Provider: Jorge Mcfarland, IGOR) 1319 (Given - Provider: Nicolasa Pacheco RN - Comment: per pt request) No Frequency Medication Order 12/01/2023 12/02/2023 12/03/2023 sodium chloride (PF) 0.9 % injection (COMPLETED) 1 dose, Starting on Thu12/01/23 at 2232, Until Thu12/01/23 at 2236, Dinorah Mcfadden: cabinet override, Dinorah Mcfadden: cabinet override 2236 (Given - Provider: Dinorah Mcfadden RN) Linked Groups Order Group 1: acetaminophen (TYLENOL) tablet 650 mgJump to med 650 mg, Oral, EVERY 6 HOURS PRN, Starting on Thu11/25/23 at 0421, Until Discontinued, Pain Mild (1-3), Fever, For temp greater than 100.4 F (38 C)
Maximum dose of acetaminophen is 4000 mg from all sources in 24 hours.
Or acetaminophen (TYLENOL) suppository 650 mgJump to med 650 mg, Rectal, EVERY 6 HOURS PRN, Starting on Thu11/25/23 at 0421, Until Discontinued, Pain Mild (1-3), Fever, For temp greater than 100.4 F (38 C)
Administer if oral route cannot be used.
Group 2: labetalol (NORMODYNE;TRANDATE) injection 10 mgJump to med 10 mg, IntraVENous, EVERY 15 MIN PRN, 2 doses, Starting on Thu12/01/23 at 0958, Until Discontinued, High Blood Pressure, for SBP greater than 180 mmHg for 2 consecutive measurements taken from different sites.
If heart rate is 60 bpm or less hold labetalol and use hydralazine if ordered, otherwise contact provider. Inform provider if SBP is still greater than 180 mmHg, 10 minutes after second antihypertensive dose is administered.
PACU only Or hydrALAZINE (APRESOLINE) injection 10 mgJump to med 10 mg, IntraVENous, EVERY 15 MIN PRN, 2 doses, Starting on Thu12/01/23 at 0958, Until Discontinued, High Blood Pressure, for SBP greater than 180 mmHg for 2 consecutive measurements taken from different sites
If heart rate is greater than 60 bpm, hold hydralazine and use labetalol if ordered, otherwise contact provider. Inform provider if SBP is still greater than 180 mmHg 10 minutes after second antihypertensive dose is administered.
PACU only Group 3: ondansetron (ZOFRAN-ODT) disintegrating tablet 4 mgJump to med 4 mg, Oral, EVERY 8 HOURS PRN, Starting on Thu11/25/23 at 0421, Until Discontinued, Nausea, Vomiting Or ondansetron (ZOFRAN) injection 4 mgJump to med 4 mg, IntraVENous, EVERY 6 HOURS PRN, Starting on Thu11/25/23 at 0421, Until Discontinued, Nausea, Vomiting
Administer if oral route cannot be used.
Group 4: potassium chloride (KLOR-CON M) extended release tablet 40 mEqJump to med 40 mEq, Oral, PRN, Starting on Thu11/26/23 at 0626, Until Discontinued, Per Potassium Replacement Protocol
May give alternative linked oral order (ordered as effervescent, packet, or liquid solution) if patient unable to tolerate tablet. K Lab Repla cemen t Action 3.1 to 3.5 40 mEq ORAL x 1 Under 3.1 Refer to IV replacement protocol Recheck K level in AM. Protocol not for use in patients with CrCl less than 30 mL/min. Do not crush, chew, or suck on tablet. Tablet may also be broken in half and each half swallowed separately.
Or potassium bicarb-citric acid (EFFER-K) effervescent tablet 40 mEqJump to med 40 mEq, Oral, PRN, Starting on Sara 11/26/23 at 0626, Until Discontinued, Per Potassium Replacement Protocol
Administer as alternative if patient unable to tolerate oral tablet. K Lab Repla cemen t Action 3.1 to 3.5 40 mEq ORAL x 1 Under 3.1 Refer to IV replacement protocol Recheck K level in AM. Protocol not for use in patients with CrCl less than 30 mL/min. Do not chew or crush. Dissolve flavored tablets completely in 3 to 4 ounces of cold water; unflavored tablets may be dissolved in 3 to 4 ounces of cold juice. Patient to sip slowly over a 5 to 10 minute period. May further dilute if GI adverse effects occur.
Or potassium chloride 10 mEq/100 mL IVPB (Peripheral Line)Jump to med 10 mEq, IntraVENous, PRN, Starting on Sara 11/26/23 at 0626, Until Discontinued, at 100 mL/hr, Per Potassium Replacement Protocol
K Lab Replacement Action 2.7 to 3.0 10 mEq IVPB x 6 doses (60 mEq Total) Under 2.7 CALL PROVIDER and administer 10 mEq IVPB x 6 doses (60 mEq Total) Infuse at 10 mEq/hr. Repeat Potassium lab 1 hour after final administration. Protocol not for use in patients with CrCl less than 30 mL/min.
Scheduled Medication Order 01/27/2024 01/28/2024 01/29/2024 sodium chloride flush 0.9 % injection 5-40 mL 5-40 mL, IntraVENous, EVERY 12 HOURS SCHEDULED (2 times per day), First dose on Thu01/29/24 at 1045, Until Discontinued, For Line Patency: Peripheral IV = 5 mL; Midline or Central Line = 10 mL/lumen. If following IV push medication, administer flush at same rate as the IV push. Flush volume is determined by type of infusion therapy being given. For non-viscous solutions use: Peripheral IV = 5 mL Midline or Central Line = 10 mL/lumen For viscous solutions (i.e. blood components, parenteral nutrition, contrast media, or after obtaining blood sample) use: Peripheral IV = 10 mL Midline or Central Line = 20 mL/lumen, Pre-op (day of surgery) 1045 (Due)2100 (Due) Continuous Medication Order 01/27/2024 01/28/2024 01/29/2024 lactated ringers IV soln infusion IntraVENous, at 125 mL/hr, CONTINUOUS, Starting on Thu01/29/24 at 1045, Pre-op (day of surgery) 1128 (New Bag - Prov ider: Jenelle Pino RN)1241 (NoRateChange - Provider: PATY Olmos CRNA)1253 (Paused - Provider: PATY Olmos CRNA - Comment: Switch to gravity)1254 (Restarted - Provider: PATY Olmos CRNA) PRN Medication Order 01/27/2024 01/28/2024 01/29/2024 0.9 % sodium chloride infusion IntraVENous, at 5-250 mL/hr, PRN, if patient receiving piggyback infusions and maintenance fluids are not ordered OR KVO fluids to protect IV site / prevent frequent line interruptions/ long duration, Starting on Thu01/29/24 at 1018, For piggyback infusion, administer at same rate as piggyback for a total of 25 mL. Enter 25 mL into dose field and piggyback rate into rate field of order. If piggyback is infusing at a rate less than 100 mL/hr, enter 25 mL into dose field and 100 mL/hr into rate field of order. For KVO fluids, enter rate of 20 mL/hr or less into rate field of order., Pre-op (day of surgery) lidocaine PF 1 % injection 1 mL (COMPLETED) 1 mL, IntraDERmal, ONCE PRN, 1 dose, Starting on Thu01/29/24 at 1018, Until Thu01/29/24 at 1128, IV start, Pre-op (day of surgery) 1128 (Given - Provid er: Jenelle Pino RN) sodium chloride flush 0.9 % injection 5-40 mL 5-40 mL, IntraVENous, PRN, Starting on Thu01/29/24 at 1018, Until Discontinued, Line Care, After every IV line use, For Line Patency: Peripheral IV = 5 mL; Midline or Central Line = 10 mL/lumen. If following IV push medication, administer flush at same rate as the IV push. Flush volume is determined by type of infusion therapy being given. For non-viscous solutions use: Peripheral IV = 5 mL Midline or Central Line = 10 mL/lumen For viscous solutions (i.e. blood components, parenteral nutrition, contrast media, or after obtaining blood sample) use: Peripheral IV = 10 mL Midline or Central Line = 20 mL/lumen, Pre-op (day of surgery) FOR RECORDS PERTAINING TO PATIENTS WHO ARE [...] BE BASED ON THE PRIMARY CLINICAL RECORDS. [facility] [employer] [facility]. provides no warranty or guarantee of the accuracy or completeness of information in this document.
--- NOTE | 2024-09-28 00:35 | ED.FALL1 ---
HPI HPI - Fall General Chief Complaint: Fall Stated Complaint: FALL Time Seen by Provider: 09/28/24 00:07 Source: patient Mode of arrival: ambulance Limitations: no limitations History of Present Illness HPI Narrative: This 74-year-old female with history of COPD who is oxygen dependent and states she had a mini stroke approximately 1 year ago and occasionally falls is brought to the emergency department by EMS from home. The patient states around 3 PM yesterday afternoon she was getting up out of her chair and lost her footing and fell to the side and fell backwards and struck the back of her head. She actually thinks she hit the top of her head on something as well. Allegedly EMS was called at that time but she declined transfer. The patient states tonight she was in the hallway of her apartment building and was talking to her neighbor and told her neighbor that she had a headache from falling earlier today and the neighbor called EMS. The patient denies any neck pain. She has no increasing shortness of breath. She does continue to smoke. She has a skin tear on her left lateral elbow area. She has no focal neurologic deficits. She is awake alert oriented. She denies any confusion. She has no slurred speech. She is moving all extremities. She states she has not been eating or drinking much lately because she is still trying to lose weight. I inquired about this and she states she was formally 200 pounds and it was hard for her to get around them so she watches what she eats and drinks very closely. Denies any chest pain or shortness of breath. She denies any nausea or vomiting. She has no abdominal pain. She does chronic lower extremity skin changes and dryness to her lower legs and feet. She denies any pain in her feet, ankles, knees or hips. She has no back pain. Related Data Home Medications ?Medication ?Instructions ?Recorded ?Confirmed baclofen 20 mg tablet 20 mg PO Q8H 11/17/23 11/17/23 buspirone 15 mg tablet 15 mg PO TID 11/17/23 11/17/23 Allergies Allergy/AdvReac Type Severity Reaction Status Date / Time morphine Allergy Mild Nightmare Verified 09/28/24 00:04 moxifloxacin (From Avelox) Allergy Hives Verified 09/28/24 00:04 codeine AdvReac Nightmare Verified 09/28/24 00:04 Opioid HPI Opioid Management Most Recent Pain and Opioid Data: Last Pain Scale 3 09/28/24 00:39 09/28/24 Last ED Pain Assessment 09/28/24 00:15 Last MAR Pain Assessment 09/28/24 00:39 Review of Systems ROS Status of ROS 10 or more systems reviewed and unremarkable except as noted in history and below PFSH PFSH Social History Little interest or pleasure in doing things: not at all Feeling down, depressed, or hopeless: not at all Exam Narrative Exam Narrative: Vital signs and Nursing Notes reviewed: Patient is afebrile with a normal pulse, blood pressure is elevated at 149/59, she is at her baseline with a pulse ox of 95% on 2 L nasal cannula General: Awake, alert, oriented, no acute distress, lying comfortably on the stretcher HEENT: Normocephalic atraumatic, mild tenderness to the posterior occiput without notable abrasion, hematoma soft tissue swelling laceration or other notable abnormality. Mucous membranes are moist and pink, eyes are clear, normal conjunctiva, vision is grossly intact, posterior pharynx is normal in appearance. Neck: Supple, no midline bony vertebral tenderness or step-off Chest: Lungs are diminished with no wheezing rhonchi or rales, patient is wearing supplemental oxygen from home CVS: Regular rate and rhythm S1-S2, no murmurs rubs or gallops, pulses are brisk and equal bilaterally ABD: Soft, nondistended, nontender, no rebound guarding or rigidity, bowel sounds are normal, no pulsatile masses appreciated, stable pelvic rock Extremities: Moving all extremities, superficial skin tear over the left elbow, bilateral lower extremity redness and dry skin, there is no bony deformity or tenderness to the lower extremities including the feet, ankles, calves knees or hips. Her skin is extremely dry with calluses on her feet and toes. Skin: Skin tear to the left elbow area, 2 small superficial wounds are present on the right forearm and elbow area, no active bleeding or sign of cellulitis. 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, negative pronator drift, she is moving herself up in the stretcher, GCS 15 and NIH stroke scale is 0 Constitutional Vital Signs, click to edit/add: Last Vital Signs Temp 98.6 F 09/28/24 00:07 Pulse 72 09/28/24 02:05 Resp 18 09/28/24 02:05 BP 112/62 09/28/24 02:05 Pulse Ox 96 09/28/24 02:05 O2 Del Method Nasal Cannula 09/28/24 00:07 O2 Flow Rate 2 09/28/24 00:38 Course Vital Signs Vital signs: Vital Signs Temperature 98.6 F 09/28/24 00:07 Pulse Rate 80 09/28/24 00:07 Respiratory Rate 20 09/28/24 00:07 Blood Pressure 149/59 H 09/28/24 00:07 Pulse Oximetry 95 09/28/24 00:07 Oxygen Delivery Method Nasal Cannula 09/28/24 00:07 Oxygen Delivery Flow Rate 2 09/28/24 00:07 Temperature 98.6 F 09/28/24 00:07 Pulse Rate 72 09/28/24 02:05 Respiratory Rate 18 09/28/24 02:05 Blood Pressure 112/62 09/28/24 02:05 Pulse Oximetry 96 09/28/24 02:05 Oxygen Delivery Method Nasal Cannula 09/28/24 00:07 Oxygen Delivery Flow Rate 2 09/28/24 00:38 MDM - Fall MDM Narrative Medical decision making narrative: This 74-year-old female with a history of COPD is brought to the emergency department by EMS. The patient fell earlier in the day at her house. She states she falls fairly frequently. EMS did go to her house but she declined treatment at that time. She was in the hallway of her apartment building or complex and explained to her neighbor that she had a headache and her neighbor called EMS. Her neighbor was concerned that she was confused however the patient does not exhibit any signs of confusion. She is alert and oriented. She provides an excellent history of her medical history as well as medications allergies and recent past. She did not have any sign of any injury. She was given Tylenol for headache and a CT scan of the head and neck was ordered. CT scan of the head and neck are both normal. She does have a skin tear in her left elbow area that was treated with a bacitracin dressing. She is otherwise stable for discharge. She will be discharged home when her ride is available to take her home. Discharge Plan Discharge Chief Complaint: Fall Clinical Impression: Accidental fall, Closed head injury, Skin tear of elbow without complication Patient Disposition: Home, Self-Care Time of Disposition Decision: 03:08 Condition: Good Prescriptions / Home Meds: No Action baclofen 20 mg tablet 20 mg PO Q8H Rx Instructions: 1 tablet in am, 1/2 tab in noon and 2 tabs at HS buspirone 15 mg tablet 15 mg PO TID Rx Instructions: 2 at HS Print Language: Upper Sorbian Instructions: Fall Prevention for Older Adults (ED), Head Injury (ED) Referrals: ASHLEY SHERIFF [Primary Care Provider] - 1 week
[2024-09-28 00:38] VITALS: BP 117/82; PULSE 72; O2SAT 95
[2024-09-28] MEDS: ACETAMINOPHEN 325 MG TABLET 650 MG PO (00:39)
[2024-09-28 02:05] VITALS: BP 112/62; PULSE 72; O2SAT 96
[2024-09-28] MEDS: BACITRACIN 0.9 GM PACKET 1 PACKET TOPICAL (03:19)
--- NOTE | 2024-09-28 03:25 | PC.NURSE ---
i dressed this patient left elbow. i informed this patient that i told the warehouse forklift operator that you need a ride home
--- NOTE | 2024-09-28 04:27 | PC.NURSE ---
i gave this patient verbal and written discharge order and this patient voices yes to understanding these. at time of discharge this patient voices no concerns and show no signs of distress. Thai balbuena and IGOR Guadarrama took this patient home. this patient took all over her belongings with her at time of discharge
== END 2024-09-28 04:30 | disposition home or self-care (01) ==
PROVIDERS: Emergency Provider Emergency Medicine; PCP Family Medicine
DX: S09.8XXA Other specified injuries of head, initial encounter (principal); S51.012A Laceration without foreign body of left elbow, initial encounter; J44.9 Chronic obstructive pulmonary disease, unspecified; Z99.81 Dependence on supplemental oxygen; F17.200 Nicotine dependence, unspecified, uncomplicated; W18.39XA Other fall on same level, initial encounter; L85.3 Xerosis cutis; Z91.81 History of falling
CPT/HCPCS: 70450; 72125; 99284

== ENCOUNTER 2024-09-29 16:36 | Outpatient (OUT) | payer MEDICARE, SELFPAY ==
--- OUTSIDE RECORDS SUMMARY | 2024-09-29 16:57 | XMS_ITS | CCD ---
Author Organization [facility] Inform ion Partnership [facility] Care Team Providers Care Ironer Name Role Phone JAZIEL, DR RAMIREZ Primary Care Unavailable JAZIEL, DR RAMIREZ Admitting Unavailable JAZIEL, DR RAMIREZ Attending Unavailable JAZIEL, DR RAMIREZ Consulting Unavailable JAZIEL, DR RAMIREZ Admitting Unavailable JAZIEL, DR RAMIREZ Attending Unavailable JAZIEL, DR RAMIREZ Consulting Unavailable JAZIEL, DR RAMIREZ Primary Care Unavailable Catracho Sheriff MD Unavailable Catracho Sheriff MD Primary Care Provider MD Catracho Sheriff Primary Care Provider DO Frantz Nieves Admit Provider MD Jaspal Whalen Attending Provider [phone] MD Fortino Imkrystina Other Provider Catracho Sheriff Primary Care Unavailable Jaspal Whalen Attending Unavailable Frantz Nieves Admitting Unavailable Seun Freitas Consulting Unavailable Unavailable Primary Care Provider UnavailCAROL Briscoe Attending Unavailable NICKY UGARTE Consulting Unavailable LIZZY ROCHA Referring Unavailable TAMEKA, ARNAUD Admitting Unavailable RUIZ, ZAINULABEDIN Consulting Unavailable DABOUL, ISAM Consulting Unavailable ALVIN, THERESE Consulting Unavailable Catracho Sheriff MD Primary Care Provider [phone] Payal Gaona DO Unavailable Dionne RN, Aimee Unavailable Catracho Sheriff MD Unavailable Catracho Sheriff MD Primary Care Provider Catracho Sheriff MD Unavailable Catracho Sheriff MD Primary Care Provider HEMEYER, CATRACHO J Attending Unavailable HEMEYER, EDWARD J Attending Unavailable HEMEYER, EDWARD J Attending Unavailable HEMEYER, EDDEON J Attending Unavailable HEMEYER, EDDEON J Attending Unavailable HEMEYER, EDDEON J Attending Unavailable HEMEYER, EDDEON J Attending Unavailable HEMEYER, EDDEON J Attending Unavailable LEONILA ZAPATA Attending Unavailable LEONILA ZAPATA Attending Unavailable HEMEYER, EDDEON J Attending Unavailable HEMEYER, EDDEON J Attending Unavailable HEMEYER, EDDOEN J Attending Unavailable HEMEYER, EDDEON J Attending [...] Unavailable Catracho Sheriff MD Primary Care Provider [phone] Allergies Allergy Classification Reported Allergen(s) Allergy Type Date of Onset Reaction(s) Facility (1 source) Cephalexin Drug Allergy 11-29-19 14 [facility] (1 source) Iron Drug Allergy 07-03-20 15 [facility] (1 source) moxifloxacin Drug Allergy 07-14-20 13 [facility] (1 source) Penicillins Drug allergy (disorder) 07-14-20 13 [facility] (1 source) Sulfonamides (Antibiotic) Drug allergy (disorder) 07-14-20 13 [facility] (1 source) varenicline Drug Allergy 11-29-19 14 [facility] (20 sources) busPIRone Drug Allergy 01-15-20 23 [facility] (20 sources) Cephalexin Drug Allergy 11-29-19 14 [facility] (20 sources) Codeine Drug Allergy 01-15-20 23 Other (See Comments) [facility] (20 sources) Mirtazapine Drug Allergy 07-23-20 23 Hallucinations [facility] Healthcare (20 sources) moxifloxacin Drug Allergy 01-15-20 23 Hives [facility] (20 sources) Penicillins Drug Allergy 01-15-20 23 Rash [facility] (20 sources) traZODone Drug Allergy 01-15-20 23 [facility] (20 sources) varenicline Drug Allergy 11-29-19 14 [facility] (1 source) Meperidine Drug Allergy 11-17-19 24 other [facility] (20 sources) Ibuprofen Drug Allergy 11-25-19 24 Other (See Comments) [facility] (20 sources) Niacin And Related Propensity to adverse reactions to drug 11-25-19 24 Hives [facility] (20 sources) Meperidine Drug Allergy 11-17-19 24 [facility] (2 sources) Iron Drug Allergy 07-03-20 15 [facility] (2 sources) Meperidine Drug Allergy 06-21-20 24 [facility] (2 sources) Mirtazapine Drug Allergy 06-21-20 24 [facility] (2 sources) Penicillins Propensity to adverse reactions to drug 07-14-20 13 Rash [facility] Medications Current Medications Medication Drug Class(es) Dates Sig (Normalized) Sig (Original) Acetaminophen (1 source) Start: 11-25-2023 acetaminophen (TYLENOL) tablet 650 mg [id number] actuat albuterol 0.09 mg/actuat metered dose [...] 11-17-2023 take 10 mg by mouth at [facility] Baclofen Active 10 MG PO With breakfast [...] ordered dose. take 2 tablets by mo [facility] at bedtime busPIRone (BUSPAR) 15 MG tablet [...] mouth 1 (one) time each day Active QYO-AUY-Kllnynz E (OMEGA-3 COMPLEX PO) (4 sources) take 1 capsule by mouth once daily RCX-RXP-Eyjkcns E (OMEGA-3 COMPLEX PO) Take 1 capsule by mouth daily Active take 1 capsule by mouth once nereyda ly MFL-PDJ-Onrthse E (OMEGA-3 COMPLEX PO) Take 1 capsule [...] Start: 11-25-2023 take 1 capsule by mo [facility] once daily 40 mg, Oral, DAILY, First [...] mg in 10 mL sodium chloride syringe [place]-3 Fatty Acids (Fish Oil) 1000 MG capsule delayed-release (20 sources) [place]-3 Fatty Ac ids (Fish Oil) 1000 MG capsule delayed-release Take by mouth Active [place]-3 Fatty Acids (FISH OIL) 1000 MG CPDR (2 sources) [place]-3 Fatty Ac ids (FISH OIL) 1000 MG [...] (Normalized) Sig (Original) 20 ml albumin human, skilled nursing 250 mg/ml injection (1 source) Human Serum [...] aftercare (20 sources) Polypharmacy ; Translations: [Other skilled nursing (current) drug therapy] Onset: 1 01-28-2023 Episodic Other aftercare (20 sources) Taking high risk medication; Translations: [Other intermediate designer (current) drug therapy] Onset: 1 Resolved: 4 07-31-2023 Episodic Other aftercare (20 sources) Drug therapy finding; Translations: [Other skilled nursing (current) drug therapy] Onset: 4 10-15-2023 Episodic [...] [Mass/Vol] 14.5 g/dL 12.0 - 16.0 g/dL [facility] Surgical Pathology Reporton 01-29-2024 Surgical Pathology Report (NOTE) Path Number: [id number] -- Diagnosis -- STOMACH, BIOPSY: -MINIMAL TO [...] Microscopic Description Microscopic examination performed. Processing Lab: [address] [address] Interpretation Performed at [address] [id number] SURGICAL PATHOLOGY CONSULTATION Patient Name: JENNY EWING [facility] Rec: [id number] [facility] ANATOMIC PATHOLOGY [address] [place] [id number] Normal [facility] Basic Metab w/rfx MGon 12-02 Anion gap [Moles/Vol] 7 mmol/L Low 9-16 [facility] Comment on above: Performed By: #### B MPX, MG, CDP #### [facility] [address] [place] [address] Fitting Room Checker: Dwain Aldana MD Calcium [Mass/Vol] 7.6 mg/dL Low 8.6-10.4 [facility] Comment on above: Performed By: #### B MPX, MG, CDP #### [address] [address] Fitting Room Checker: Dwain Aldana MD Chloride [Moles/Vol] 101 mmol/L Normal 98-107 [facility] Comment on above: Performed By: #### B MPX, MG, CDP #### [address] [address] Fitting Room Checker: Dwain Aldana MD CO2 [Moles/Vol] 31 mmol/L Normal 20-31 [facility] Comment on above: Performed By: #### B MPX, MG, CDP #### [address] [address] Fitting Room Checker: Dwain Aldana MD Creatinine [Mass/Vol] 0.4 mg/dL Low 0.50-0.90 [facility] Comment on above: Performed By: #### B MPX, MG, CDP #### [address] [address] Fitting Room Checker: Dwain Aldana MD GFR/1.73 sq M.predicted among non-blacks MDRD (S/P/Bld) [Vol rate/Area] mL/min/{1.73_m2} Normal >60 [facility] Comment on above: Result Comment: These results [...] By: #### B MPX, MG, CDP #### [address] [address] Fitting Room Checker: Dwain Aldana MD Glucose [Mass/Vol] 83 mg/dL Normal 74-99 [facility] Comment on above: Performed By: #### B MPX, MG, CDP #### [address] [place] [address] Fitting Room Checker: Dwain Aldana MD Potassium [Moles/Vol] 3.2 mmol/L Low 3.7-5.3 [facility] Comment on above: Performed By: #### B MPX, MG, CDP #### [facility] [address] [place], [place] [id number] Fitting Room Checker: Dwain Aldana MD Sodium [Moles/Vol] 139 mmol/L Normal 136-145 [facility] Comment on above: Performed By: #### B MPX, MG, CDP #### [facility] [place] [address] Fitting Room Checker: Dwain Aldana MD Urea nitrogen [Mass/Vol] 2 mg/dL Low 8-23 [facility] Comment on above: Performed By: #### B MPX, MG, CDP #### [facility] [address] [place] [address] Fitting Room Checker: Dwain Aldana MD Basic Metabolic Panel w/ Ref merlene to on 12-03-2023 Anion gap [Moles/Vol] 7 mmol/L Low 9 - 16 mmol/L [facility] Calcium [Mass/Vol] 7.6 mg/dL Low 8.6 - 10. 4 mg/dL [facility] Chloride [Moles/Vol] 101 mmol/L 98 - 10 7 mmol/L [facility] CO2 [Moles/Vol] 31 mmol/L 20 - 31 mmol/L [facility] Creatinine [Mass/Vol] 0.4 mg/dL Low 0.50 - 0.90 mg/dL [facility] Est, [place] Garnica Rate - PINF [facility] Comment on above: These results [...] [Mass/Vol] 83 mg/dL 74 - 99 mg/dL [facility] Interpretation and review of laboratory results Abnormal [facility] Potassium [Moles/Vol] 3.2 mmol/L Low 3.7 - 5.3 mmol/L [facility] Sodium [Moles/Vol] 139 mmol/L 136 - 145 mmol/L [facility] Urea nitrogen [Mass/Vol] 2 mg/dL Low 8 - 23 mg/dL [facility] CBC with Auto Differentialon 12-03-2023 Basophils (Bld) [#/Vol] 0.08 10*3/uL [facility] Basophils/100 WBC (Bld) 1 % 0 - 2 % [facility] Eosinophils (Bld) [#/Vol] 0.23 10*3/uL [facility] Eosinophils/100 WBC (Bld) 3 % 1 - 4 % [facility] Erythrocyte distribution width (RBC) [Ratio] 17.7 % High 11.8 - 14.4 % [facility] Hematocrit (Bld) [Volume fraction] 29.4 % Low 36.3 - 47.1 % [facility] Hemoglobin (Bld) [Mass/Vol] 9.6 g/dL Low 11.9 - 15.1 g/dL [facility] Immature granulocytes (Bld) [#/Vol] 0.08 10*3/uL [facility] Immature granulocytes/100 WBC (Bld) 1 % High 0 [facility] Interpretation and review of laboratory results Abnormal [facility] Lymphocytes/100 WBC (Bld) 18 % Low 24 - 43 % [facility] Lymphocytes/100 WBC (Bld) 1.37 % [facility] MCH (RBC) [Entitic mass] 30.4 pg 25.2 - 33.5 pg [facility] MCHC (RBC) [Mass/Vol] 32.7 g/dL 28.4 - 34.8 g/dL [facility] MCV (RBC) [Entitic vol] 93.0 fL 82.6 - 102.9 fL [facility] Monocytes/100 WBC (Bld) 9 % 3 - 12 % [facility] Monocytes/100 WBC (Bld) 0.68 % [facility] Morphology Jesus (Bld) [Interp] Normal [facility] Neutrophils/100 WBC (Bld) 68 % High 36 - 65 % [facility] Nucleated RBC/100 WBC (Bld) [Ratio] 0.0 % 0.0 per 100 WBC [facility] Platelet, Fluorescence 347 [facility] Platelets (Bld) [#/Vol] See Reflexed IPF Result [facility] Platelets reticulated/100 platelets Auto (Bld) 4.0 % 1.1 - 10.3 % [facility] RBC (Bld) [#/Vol] 3.16 10*6/uL Low 3.95 - 5.11 m/uL [facility] RBC (Bld) [#/Vol] ANISOCYTOSIS PRESENT [facility] Segmented neutrophils/100 WBC (Bld) 5.16 % [facility] WBC other (Bld) [#/Vol] 7.6 [facility] CBC with Diffon 12-03-2023 Abs. Basophil 0.08 k/uL Normal 0.00-0.20 [facility] Comment on above: Performed By: #### B MPX, MG, CDP #### [facility] [address] [place], [place] [id number] Fitting Room Checker: Dwain Aldana MD Abs.Imm.Granulocyte 0.08 k/uL Normal 0.00-0.30 [facility] Comment on above: Performed By: #### B MPX, MG, CDP #### [facility] [address] [place] [address] Fitting Room Checker: Dwain Aldana MD Abs.Neutrophil (Seg) 5.16 k/uL Normal 1.50-8.10 [facility] Comment on above: Performed By: #### B MPX, MG, CDP #### [facility] [address] [place] [address] Fitting Room Checker: Dwain Aldana MD Basophils/100 WBC (Bld) 1 % Normal 0-2 [facility] Comment on above: Performed By: #### B MPX, MG, CDP #### [facility] [address] [place] [address] Fitting Room Checker: Dwain Aldana MD Eosinophils (Bld) [#/Vol] 0.23 10*3/uL Normal 0.00-0.44 [facility] Comment on above: Performed By: #### B MPX, MG, CDP #### [facility] [address] [place] [address] Fitting Room Checker: Dwain Aldana MD Eosinophils/100 WBC (Bld) 3 % Normal 1-4 [facility] Comment on above: Performed By: #### B MPX, MG, CDP #### [facility] [address] [place] [address] Fitting Room Checker: Dwain Aldana MD Immature granulocytes/100 WBC (Bld) 1 % High 0 [facility] Comment on above: Performed By: #### B MPX, MG, CDP #### [facility] [address] [place] [address] Fitting Room Checker: Dwain Aldana MD Lymphocytes (Bld) [#/Vol] 1.37 10*3/uL Normal 1.10-3.70 [facility] Comment on above: Performed By: #### B MPX, MG, CDP #### [facility] [address] [place] [address] Fitting Room Checker: Dwain Aldana MD Lymphocytes/100 WBC (Bld) 18 % Low 24-43 [facility] Comment on above: Performed By: #### B MPX, MG, CDP #### [facility] [address] [place] [address] Fitting Room Checker: Dwain Aldana MD Monocytes (Bld) [#/Vol] 0.68 10*3/uL Normal 0.10-1.20 [facility] Comment on above: Performed By: #### B MPX, MG, CDP #### [address] [address] Fitting Room Checker: Dwain Aldana MD Monocytes/100 WBC (Bld) 9 % Normal 3-12 [facility] Comment on above: Performed By: #### B MPX, MG, CDP #### [address] [address] Fitting Room Checker: Dwain Aldana MD Morphology Jesus (Bld) [Interp] Normal Normal [facility] Comment on above: Performed By: #### B MPX, MG, CDP #### [place] [address] Fitting Room Checker: Dwain Aldana MD Neutrophil (Seg) 68 % High 36-65 [facility] Comment on above: Performed By: #### B MPX, MG, CDP #### [address] [address] Fitting Room Checker: Dwain Aldana MD Platelet, Fluoresc. 347 k/uL Normal 138-453 [facility] Comment on above: Performed By: #### B MPX, MG, CDP #### [address] [address] Fitting Room Checker: Dwain Aldana MD PLT, Immature Fract. 4.0 % Normal 1.1-10.3 [facility] Comment on above: Performed By: #### B MPX, MG, CDP #### [address] [address] Fitting Room Checker: Dwain Aldana MD Erythrocyte distribution width (RBC) [Ratio] 17.7 % High 11.8-14.4 [facility] Comment on above: Performed By: #### B MPX, MG, CDP #### [facility] [address] [place] [address] Fitting Room Checker: Dwain Aldnaa MD Hematocrit (Bld) [Volume fraction] 29.4 % Low 36.3-47.1 [facility] Comment on above: Performed By: #### B MPX, MG, CDP #### [facility] [address] [place] [address] Fitting Room Checker: Dwain Aldana MD Hemoglobin (Bld) [Mass/Vol] 9.6 g/dL Low 11.9-15.1 [facility] Comment on above: Performed By: #### B MPX, MG, CDP #### [facility] [employer] [address] [place] [address] Fitting Room Checker: Dwain Aldana MD MCH (RBC) [Entitic mass] 30.4 pg Normal 25.2-33.5 [facility] Comment on above: Performed By: #### B MPX, MG, CDP #### [facility] [employer] [address] [place] [address] Fitting Room Checker: Dwain Aldana MD MCHC (RBC) [Mass/Vol] 32.7 g/dL Normal 28.4-34.8 [facility] Comment on above: Performed By: #### B MPX, MG, CDP #### [facility] [employer] [address] [place] [address] Fitting Room Checker: Dwain Aldana MD MCV (RBC) [Entitic vol] 93.0 fL Normal 82.6-102.9 [facility] Comment on above: Performed By: #### B MPX, MG, CDP #### [facility] [employer] [address] [place] [address] Fitting Room Checker: Dwain Aldana MD NRBC Automated 0.0 per 100 WBC Normal 0.0 [facility] Comment on above: Performed By: #### B MPX, MG, CDP #### [facility] [address] [place] [address] Fitting Room Checker: Dwain Aldana MD Platelet Count See Reflexed IPF Result Normal 138-453 [facility] Comment on above: Performed By: #### B MPX, MG, CDP #### [facility] [place] [address] Fitting Room Checker: Dwain Aldana MD RBC (Bld) [#/Vol] 3.16 10*6/uL Low 3.95-5.11 [facility] Comment on above: Performed By: #### B MPX, MG, CDP #### [facility] [address] [place] [address] Fitting Room Checker: Dwain Aldana MD RBC morphology finding Nom (Bld) ANISOCYTOSIS PRESENT Normal [facility] Comment on above: Performed By: #### B MPX, MG, CDP #### [facility] [address] [place] [address] Fitting Room Checker: Dwain Aldana MD WBC (Bld) [#/Vol] 7.6 10*3/uL Normal 3.5-11.3 [facility] Comment on above: Performed By: #### B MPX, MG, CDP #### [facility] [employer] [address] [place] [address] Fitting Room Checker: Dwain Aldana MD Magnesiumon 12-03-2023 Magnesium [Mass/Vol] 1.7 mg/dL Normal 1.6-2.4 [facility] Comment on above: Performed By: #### B MPX, MG, CDP #### [facility] [employer] [address] [place] [address] Fitting Room Checker: Dwain Aldana MD Magnesium [Mass/Vol] 1.7 mg/dL 1.6 - 2 .4 mg/dL [facility] Basic Metab w/rfx MGon 12-01 Anion gap [Moles/Vol] 8 mmol/L Low 9-16 [facility] Comment on above: Performed By: #### B MPX, MG, CDP #### [facility] [address] [place] [address] Fitting Room Checker: Dwain Aldana MD Calcium [Mass/Vol] 7.0 mg/dL Low 8.6-10.4 [facility] Comment on above: Performed By: #### B MPX, MG, CDP #### [facility] [address] [place] [address] Fitting Room Checker: Dwain Aldana MD Chloride [Moles/Vol] 101 mmol/L Normal 98-107 [facility] Comment on above: Performed By: #### B MPX, MG, CDP #### [facility] [address] [place] [address] Fitting Room Checker: Dwain Aldana MD CO2 [Moles/Vol] 28 mmol/L Normal 20-31 [facility] Comment on above: Performed By: #### B MPX, MG, CDP #### [facility] [address] [place] [address] Fitting Room Checker: Dwain Aldana MD Creatinine [Mass/Vol] 0.4 mg/dL Low 0.50-0.90 [facility] Comment on above: Performed By: #### B MPX, MG, CDP #### [facility] [address] [place] [address] Fitting Room Checker: Dwain Aldana MD GFR/1.73 sq M.predicted among non-blacks MDRD (S/P/Bld) [Vol rate/Area] mL/min/{1.73_m2} Normal >60 [facility] Comment on above: Result Comment: These results [...] By: #### B ALEKS MG, CDP #### [facility] [address] [place] [address] Fitting Room Checker: Dwain Aldana MD Glucose [Mass/Vol] 85 mg/dL Normal 74-99 [facility] Comment on above: Performed By: #### B MPX MG, CDP #### [facility] [address] [place] [address] Fitting Room Checker: Dwain Aldana MD Potassium [Moles/Vol] 3.4 mmol/L Low 3.7-5.3 [facility] Comment on above: Performed By: #### B SWATHIX MG, CDP #### [facility] [address] [place] [address] Fitting Room Checker: Dwain Aldana MD Sodium [Moles/Vol] 137 mmol/L Normal 136-145 [facility] Comment on above: Performed By: #### B MPX MG, CDP #### [facility] [address] [place] [address] Fitting Room Checker: Dwain Aldana MD Urea nitrogen [Mass/Vol] 4 mg/dL Low 8-23 [facility] Comment on above: Performed By: #### B MPX MG, CDP #### [facility] [address] [place] [address] Fitting Room Checker: Dwain Aldana MD Basic Metabolic Panel w/ Ref merlene to MGon 12-02-2023 Anion gap [Moles/Vol] 8 mmol/L Low 9 - 16 mmol/L [facility] Calcium [Mass/Vol] 7.0 mg/dL Low 8.6 - 10. 4 mg/dL [facility] Chloride [Moles/Vol] 101 mmol/L 98 - 10 7 mmol/L [facility] CO2 [Moles/Vol] 28 mmol/L 20 - 31 mmol/L [facility] Creatinine [Mass/Vol] 0.4 mg/dL Low 0.50 - 0.90 mg/dL [facility] [place] - [place] [facility] Comment on above: These results [...] [Mass/Vol] 85 mg/dL 74 - 99 mg/dL [facility] Interpretation and review of laboratory results Abnormal [facility] Potassium [Moles/Vol] 3.4 mmol/L Low 3.7 - 5.3 mmol/L [facility] Sodium [Moles/Vol] 137 mmol/L 136 - 145 mmol/L [facility] Urea nitrogen [Mass/Vol] 4 mg/dL Low 8 - 23 mg/dL [facility] CBC with Auto Differentialon 12-02-2023 Basophils (Bld) [#/Vol] 0.05 10*3/uL [facility] Basophils/100 WBC (Bld) 1 % 0 - 2 % [facility] Eosinophils (Bld) [#/Vol] 0.18 10*3/uL [facility] Eosinophils/100 WBC (Bld) 3 % 1 - 4 % [facility] Erythrocyte distribution width (RBC) [Ratio] 17.9 % High 11.8 - 14.4 % [facility] Hematocrit (Bld) [Volume fraction] 27.5 % Low 36.3 - 47.1 % [facility] Hemoglobin (Bld) [Mass/Vol] 8.2 g/dL Low 11.9 - 15.1 g/dL [facility] Immature granulocytes (Bld) [#/Vol] 0.04 10*3/uL [facility] Immature granulocytes/100 WBC (Bld) 1 % High 0 [facility] Interpretation and review of laboratory results Abnormal [facility] Lymphocytes/100 WBC (Bld) 13 % Low 24 - 43 % [facility] Lymphocytes/100 WBC (Bld) 0.92 % Low [facility] MCH (RBC) [Entitic mass] 30.0 pg 25.2 - 33.5 pg [facility] MCHC (RBC) [Mass/Vol] 29.8 g/dL 28.4 - 34.8 g/dL [facility] MCV (RBC) [Entitic vol] 100.7 fL 82.6 - 102.9 fL [facility] Monocytes/100 WBC (Bld) 7 % 3 - 12 % [facility] Monocytes/100 WBC (Bld) 0.47 % [facility] Neutrophils/100 WBC (Bld) 77 % High 36 - 65 % [facility] Nucleated RBC/100 WBC (Bld) [Ratio] 0.0 % 0.0 per 100 WBC [facility] Platelet, Fluorescence 319 [facility] Platelets (Bld) [#/Vol] See Reflexed IPF Result [facility] Platelets reticulated/100 platelets Auto (Bld) 3.7 % 1.1 - 10.3 % [facility] RBC (Bld) [#/Vol] 2.73 10*6/uL Low 3.95 - 5.11 m/uL [facility] RBC (Bld) [#/Vol] ANISOCYTOSIS PRESENT [facility] Segmented neutrophils/100 WBC (Bld) 5.49 % [facility] WBC other (Bld) [#/Vol] 7.2 [facility] CBC with Diffon 12-02-2023 Platelet, Fluoresc. 319 k/uL Normal 138-453 [facility] Comment on above: Performed By: #### B MPX, MG, CDP #### [facility] [employer] [facility] [place], [place] [id number] Fitting Room Checker: Dwain Aldana MD PLT, Immature Fract. 3.7 % Normal 1.1-10.3 [facility] Comment on above: Performed By: #### B MPX, MG, CDP #### [facility] [employer] [address] [place] [address] Fitting Room Checker: Dwain Aldana MD Abs. Basophil 0.05 k/uL Normal 0.00-0.20 [facility] Comment on above: Performed By: #### B MPX, MG, CDP #### [facility] [employer] [address] [place] [address] Fitting Room Checker: Dwain Aldana MD Abs.Imm.Granulocyte 0.04 k/uL Normal 0.00-0.30 [facility] Comment on above: Performed By: #### B MPX, MG, CDP #### [facility] [employer] [address] [place] [address] Fitting Room Checker: Dwain Aldana MD Abs.Neutrophil (Seg) 5.49 k/uL Normal 1.50-8.10 [facility] Comment on above: Performed By: #### B MPX, MG, CDP #### [facility] [employer] [address] [place] [address] Fitting Room Checker: Dwain Aldana MD Basophils/100 WBC (Bld) 1 % Normal 0-2 [facility] Comment on above: Performed By: #### B MPX, MG, CDP #### [facility] [employer] [address] [place] [address] Fitting Room Checker: Dwain Aldana MD Eosinophils (Bld) [#/Vol] 0.18 10*3/uL Normal 0.00-0.44 [facility] Comment on above: Performed By: #### B MPX, MG, CDP #### [facility] [employer] [address] [place] [address] Fitting Room Checker: Dwain Aldana MD Eosinophils/100 WBC (Bld) 3 % Normal 1-4 [facility] Comment on above: Performed By: #### B MPX, MG, CDP #### [facility] [address] [place] [address] Fitting Room Checker: Dwain Aldana MD Erythrocyte distribution width (RBC) [Ratio] 17.9 % High 11.8-14.4 [facility] Comment on above: Performed By: #### B MPX, MG, CDP #### [facility] [employer] [address] [place] [address] Fitting Room Checker: Dwain Aldana MD Hematocrit (Bld) [Volume fraction] 27.5 % Low 36.3-47.1 [facility] Comment on above: Performed By: #### B MPX, MG, CDP #### [facility] [address] [place] [address] Fitting Room Checker: Dwain Aldana MD Hemoglobin (Bld) [Mass/Vol] 8.2 g/dL Low 11.9-15.1 [facility] Comment on above: Performed By: #### B MPX, MG, CDP #### [facility] [address] [place] [address] Fitting Room Checker: Dwain Aldana MD Immature granulocytes/100 WBC (Bld) 1 % High 0 [facility] Comment on above: Performed By: #### B MPX, MG, CDP #### [facility] [address] [place] [address] Fitting Room Checker: Dwain Aldana MD Lymphocytes (Bld) [#/Vol] 0.92 10*3/uL Low 1.10-3.70 [facility] Comment on above: Performed By: #### B MPX, MG, CDP #### [facility] [address] [place] [address] Fitting Room Checker: Dwain Aldana MD Lymphocytes/100 WBC (Bld) 13 % Low 24-43 [facility] Comment on above: Performed By: #### B MPX, MG, CDP #### [facility] [employer] [address] [place] [address] Fitting Room Checker: Dwain Aldana MD MCH (RBC) [Entitic mass] 30.0 pg Normal 25.2-33.5 [facility] Comment on above: Performed By: #### B MPX, MG, CDP #### [facility] [address] [place] [address] Fitting Room Checker: Dwain Aldana MD MCHC (RBC) [Mass/Vol] 29.8 g/dL Normal 28.4-34.8 [facility] Comment on above: Performed By: #### B MPX, MG, CDP #### [facility] [employer] [address] [place] [address] Fitting Room Checker: Dwain Aldana MD MCV (RBC) [Entitic vol] 100.7 fL Normal 82.6-102.9 [facility] Comment on above: Performed By: #### B MPX, MG, CDP #### [facility] [employer] [address] [place] [address] Fitting Room Checker: Dwain Aldana MD Monocytes (Bld) [#/Vol] 0.47 10*3/uL Normal 0.10-1.20 [facility] Comment on above: Performed By: #### B MPX, MG, CDP #### [facility] [employer] [address] [place] [address] Fitting Room Checker: Dwain Aldana MD Monocytes/100 WBC (Bld) 7 % Normal 3-12 [facility] Comment on above: Performed By: #### B MPX, MG, CDP #### [facility] [employer] [address] [place] [address] Fitting Room Checker: Dwain Aldana MD Neutrophil (Seg) 77 % High 36-65 [facility] Comment on above: Performed By: #### B MPX, MG, CDP #### [facility] [employer] [address] [place] [address] Fitting Room Checker: Dwain Aldana MD NRBC Automated 0.0 per 100 WBC Normal 0.0 [facility] Comment on above: Performed By: #### B MPX, MG, CDP #### [facility] [address] [place] [address] Fitting Room Checker: Dwain Aldana MD Platelet Count See Reflexed IPF Result Normal 138-453 [facility] Comment on above: Performed By: #### B MPX, MG, CDP #### [facility] [employer] [address] [place] [address]773 Fitting Room Checker: Dwain Aldana MD RBC (Bld) [#/Vol] 2.73 10*6/uL Low 3.95-5.11 [facility] Comment on above: Performed By: #### B MPX, MG, CDP #### [facility] [employer] [address] [place] [address]32 Fitting Room Checker: Dwain Aldana MD RBC morphology finding Nom (Bld) ANISOCYTOSIS PRESENT Normal [facility] Comment on above: Performed By: #### B MPX, MG, CDP #### [facility] [employer] [address] [place] [address] Fitting Room Checker: Dwain Aldana MD WBC (Bld) [#/Vol] 7.2 10*3/uL Normal 3.5-11.3 [facility] Comment on above: Performed By: #### B MPX, MG, CDP #### [facility] [employer] [address] [place] [address] Fitting Room Checker: Dwain Aldana MD Magnesiumon 12-02-2023 Magnesium [Mass/Vol] 1.7 mg/dL Normal 1.6-2.4 [facility] Comment on above: Performed By: #### B MPX, MG, CDP #### [address] [address] Fitting Room Checker: Dwain Aldana MD Magnesium [Mass/Vol] 1.7 mg/dL 1.6 - 2 .4 mg/dL [facility] Basic Metab w/rfx MGon 11-30 Anion gap [Moles/Vol] 7 mmol/L Low 9-16 [facility] Comment on above: Performed By: #### H H #### [address] [address] Fitting Room Checker: Dwain Aldana MD Calcium [Mass/Vol] 6.8 mg/dL Low 8.6-10.4 [facility] Comment on above: Performed By: #### H H #### [address] [address] Fitting Room Checker: Dwain Aldana MD Chloride [Moles/Vol] 107 mmol/L Normal 98-107 [facility] Comment on above: Performed By: #### H H #### [address] [address] Fitting Room Checker: Dwain Aldana MD CO2 [Moles/Vol] 23 mmol/L Normal 20-31 [facility] Comment on above: Performed By: #### H H #### [address] [address] Fitting Room Checker: Dwain Aldana MD Creatinine [Mass/Vol] 0.3 mg/dL Low 0.50-0.90 [facility] Comment on above: Performed By: #### H H #### [address] [address] Fitting Room Checker: Dwain Aldana MD GFR/1.73 sq M.predicted among non-blacks MDRD (S/P/Bld) [Vol rate/Area] mL/min/{1.73_m2} Normal >60 [facility] Comment on above: Result Comment: These results [...] By: #### H H #### [facility] [employer] [address] [place] [address] Fitting Room Checker: Dwain Aldana MD Glucose [Mass/Vol] 79 mg/dL Normal 74-99 [facility] Comment on above: Performed By: #### H H #### [address] [address] Fitting Room Checker: Dwain Aldana MD Potassium [Moles/Vol] 3.8 mmol/L Normal 3.7-5.3 [facility] Comment on above: Performed By: #### H H #### [facility] [employer] [address] [place] [address] Fitting Room Checker: Dwain Aldana MD Sodium [Moles/Vol] 137 mmol/L Normal 136-145 [facility] Comment on above: Performed By: #### H H #### [address] [address] Fitting Room Checker: Dwain Aldana MD Urea nitrogen [Mass/Vol] 8 mg/dL Normal 8-23 [facility] Comment on above: Performed By: #### H H #### [address] [address] Fitting Room Checker: Dwain Aldana MD Basic Metabolic Panel w/ Ref merlene to MGon 12-01-2023 Anion gap [Moles/Vol] 7 mmol/L Low 9 - 16 mmol/L [facility] Calcium [Mass/Vol] 6.8 mg/dL Low 8.6 - 10. 4 mg/dL [facility] Chloride [Moles/Vol] 107 mmol/L 98 - 10 7 mmol/L [facility] CO2 [Moles/Vol] 23 mmol/L 20 - 31 mmol/L [facility] Creatinine [Mass/Vol] 0.3 mg/dL Low 0.50 - 0.90 mg/dL [facility] [place] - [facility] Comment on above: These results [...] [Mass/Vol] 79 mg/dL 74 - 99 mg/dL [facility] Interpretation and review of laboratory results Abnormal [facility] Potassium [Moles/Vol] 3.8 mmol/L 3.7 - 5.3 mmol/L [facility] Sodium [Moles/Vol] 137 mmol/L 136 - 145 mmol/L [facility] Urea nitrogen [Mass/Vol] 8 mg/dL 8 - 23 mg/dL [facility] CBC with Auto Differentialon 12-01-2023 Basophils (Bld) [#/Vol] 0.04 10*3/uL [facility] Basophils/100 WBC (Bld) 1 % 0 - 2 % [facility] Eosinophils (Bld) [#/Vol] 0.15 10*3/uL [facility] Eosinophils/100 WBC (Bld) 2 % 1 - 4 % [facility] Erythrocyte distribution width (RBC) [Ratio] 18.8 % High 11.8 - 14.4 % [facility] Hematocrit (Bld) [Volume fraction] 22.9 % Low 36.3 - 47.1 % [facility] Hemoglobin (Bld) [Mass/Vol] 7.1 g/dL Low 11.9 - 15.1 g/dL [facility] Immature granulocytes (Bld) [#/Vol] 0.04 10*3/uL [facility] Immature granulocytes/100 WBC (Bld) 1 % High 0 [facility] Interpretation and review of laboratory results Abnormal [facility] Lymphocytes/100 WBC (Bld) 17 % Low 24 - 43 % [facility] Lymphocytes/100 WBC (Bld) 1.27 % [facility] MCH (RBC) [Entitic mass] 30.1 pg 25.2 - 33.5 pg [facility] MCHC (RBC) [Mass/Vol] 31.0 g/dL 28.4 - 34.8 g/dL [facility] MCV (RBC) [Entitic vol] 97.0 fL 82.6 - 102.9 fL [facility] Monocytes/100 WBC (Bld) 8 % 3 - 12 % [facility] Monocytes/100 WBC (Bld) 0.61 % [facility] Neutrophils/100 WBC (Bld) 72 % High 36 - 65 % [facility] Nucleated RBC/100 WBC (Bld) [Ratio] 0.0 % 0.0 per 100 WBC [facility] Platelet mean volume (Bld) [Entitic vol] 10.2 fL 8.1 - 13.5 fL [facility] Platelets (Bld) [#/Vol] 201 10*3/uL [facility] RBC (Bld) [#/Vol] 2.36 10*6/uL Low 3.95 - 5.11 m/uL [facility] RBC (Bld) [#/Vol] ANISOCYTOSIS PRESENT [facility] Segmented neutrophils/100 WBC (Bld) 5.55 % [facility] WBC other (Bld) [#/Vol] 7.7 [facility] CBC with Diffon 12-01-2023 Abs. Basophil 0.04 k/uL Normal 0.00-0.20 [facility] Comment on above: Performed By: #### H H #### [employer] [facility] [place] [address] Fitting Room Checker: Dwain Aldana MD Abs.Imm.Granulocyte 0.04 k/uL Normal 0.00-0.30 [facility] Comment on above: Performed By: #### H H #### [address] [address] Fitting Room Checker: Dwain Aldana MD Abs.Neutrophil (Seg) 5.55 k/uL Normal 1.50-8.10 [facility] Comment on above: Performed By: #### H H #### [address] [address] Fitting Room Checker: Dwain Aldana MD Basophils/100 WBC (Bld) 1 % Normal 0-2 [facility] Comment on above: Performed By: #### H H #### [address] [address] Fitting Room Checker: Dwain Aldana MD Eosinophils (Bld) [#/Vol] 0.15 10*3/uL Normal 0.00-0.44 [facility] Comment on above: Performed By: #### H H #### [address] [address] Fitting Room Checker: Dwain Aldana MD Eosinophils/100 WBC (Bld) 2 % Normal 1-4 [facility] Comment on above: Performed By: #### H H #### [address] [address] Fitting Room Checker: Dwain Aldana MD Erythrocyte distribution width (RBC) [Ratio] 18.8 % High 11.8-14.4 [facility] Comment on above: Performed By: #### H H #### [address] [address] Fitting Room Checker: Dwain Aldana MD Hematocrit (Bld) [Volume fraction] 22.9 % Low 36.3-47.1 [facility] Comment on above: Performed By: #### H H #### [address] [address] Fitting Room Checker: Dwain Aldana MD Hemoglobin (Bld) [Mass/Vol] 7.1 g/dL Low 11.9-15.1 [facility] Comment on above: Performed By: #### H H #### [address] [address] Fitting Room Checker: Dwain Aldana MD Immature granulocytes/100 WBC (Bld) 1 % High 0 [facility] Comment on above: Performed By: #### H H #### [place] [address] Fitting Room Checker: Dwain Aldana MD Lymphocytes (Bld) [#/Vol] 1.27 10*3/uL Normal 1.10-3.70 [facility] Comment on above: Performed By: #### H H #### [place] [address] Fitting Room Checker: Dwain Aldana MD Lymphocytes/100 WBC (Bld) 17 % Low 24-43 [facility] Comment on above: Performed By: #### H H #### [place] [address] Fitting Room Checker: Dwain Aldana MD MCH (RBC) [Entitic mass] 30.1 pg Normal 25.2-33.5 [facility] Comment on above: Performed By: #### H H #### [place] [address] Fitting Room Checker: Dwain Aldana MD MCHC (RBC) [Mass/Vol] 31.0 g/dL Normal 28.4-34.8 [facility] Comment on above: Performed By: #### H H #### [place] [address] Fitting Room Checker: Dwain Aldana MD MCV (RBC) [Entitic vol] 97.0 fL Normal 82.6-102.9 [facility] Comment on above: Performed By: #### H H #### [address] [address] Fitting Room Checker: Dwain Aldana MD Monocytes (Bld) [#/Vol] 0.61 10*3/uL Normal 0.10-1.20 [facility] Comment on above: Performed By: #### H H #### [address] [address] Fitting Room Checker: Dwain Aldana MD Monocytes/100 WBC (Bld) 8 % Normal 3-12 [facility] Comment on above: Performed By: #### H H #### [address] [address] Fitting Room Checker: Dwain Aldana MD Neutrophil (Seg) 72 % High 36-65 [facility] Comment on above: Performed By: #### H H #### [address] [address] Fitting Room Checker: Dwain Aldana MD NRBC Automated 0.0 per 100 WBC Normal 0.0 [facility] Comment on above: Performed By: #### H H #### [address] [address] Fitting Room Checker: Dwain Aldana MD Platelet mean volume (Bld) [Entitic vol] 10.2 fL Normal 8.1-13.5 [facility] Comment on above: Performed By: #### H H #### [address] [address] Fitting Room Checker: Dwain Aldana MD Platelets (Bld) [#/Vol] 201 10*3/uL Normal 138-453 [facility] Comment on above: Performed By: #### H H #### [address] [address] Fitting Room Checker: Dwain Aldana MD RBC (Bld) [#/Vol] 2.36 10*6/uL Low 3.95-5.11 [facility] Comment on above: Performed By: #### H H #### [facility] [place] [address] Fitting Room Checker: Dwain Aldana MD RBC morphology finding Nom (Bld) ANISOCYTOSIS PRESENT Normal [facility] Comment on above: Performed By: #### H H #### [facility] [employer] [address] [place] [address] Fitting Room Checker: Dwain Aldana MD WBC (Bld) [#/Vol] 7.7 10*3/uL Normal 3.5-11.3 [facility] Comment on above: Performed By: #### H H #### [address] [address] Fitting Room Checker: Dwain Aldana MD Hemoglobin and Hematocriton 12-01-2023 Hematocrit (Bld) [Volume fraction] 27.1 % Low 36.3 - 47.1 % [facility] Hemoglobin (Bld) [Mass/Vol] 8.9 g/dL Low 11.9 - 15.1 g/dL [facility] Interpretation and review of laboratory results Abnormal [facility] Hematocrit (Bld) [Volume fraction] 28.7 % Low 36.3 - 47.1 % [facility] Hemoglobin (Bld) [Mass/Vol] 8.8 g/dL Low 11.9 - 15.1 g/dL [facility] Interpretation and review of laboratory results Abnormal [facility] Hgb/Hcton 12-01-2023 Hematocrit (Bld) [Volume fraction] 27.1 % Low 36.3-47.1 [facility] Comment on above: Performed By: #### T SHX, PRCAL #### [address] [address] Fitting Room Checker: Dwain Aldana MD Hemoglobin (Bld) [Mass/Vol] 8.9 g/dL Low 11.9-15.1 [facility] Comment on above: Performed By: #### T SHX, PRCAL #### [facility] [address] [place] [phone] Fitting Room Checker: Dwain Aldana MD Hematocrit (Bld) [Volume fraction] 28.7 % Low 36.3-47.1 [facility] Comment on above: Performed By: #### H H #### [facility] [address] [place] [address] [phone] Fitting Room Checker: Dwain Aldana MD Hemoglobin (Bld) [Mass/Vol] 8.8 g/dL Low 11.9-15.1 [facility] Comment on above: Performed By: #### H H #### [facility] [employer] [address] [place] [address] [phone] Fitting Room Checker: Dwain Aldana MD No Panel Informationon 11-30 Blood Bank Blood Product Expiration Date [facility] Blood Bank ISBT Product Blood Type 6200 [facility] Blood Bank Unit Type and Rh Positive [facility] Component Leukocyte Reduced Red Cell [facility] Crossmatch Result COMPATIBLE [facility] Dispense Status Blood Bank TRANSFUSED [facility] Product Code Blood Bank [id number] [facility] Transfusion Status OK TO TRANSFUSE B ON [facility] Unit Divison 0 [facility] TYPE AND SCREENon 12-01-2023 ABO/Rh Positive [facility] Arm Band Number [id number] [facility] Blood Bank Blood Product Expiration Date [facility] Blood Bank Sample Expiration 12/02/2023,2359 [facility] Blood product unit ID (Dose) [#] [id number] [facility] Blood product unit ID (Dose) [#] [id number] [facility] Blood product unit ID (Dose) [#] [id number] [facility] Unit Issue Date/Time [id number] [facility] Issue Date/Time [id number] [facility] Unit Issue Date/Time [id number] [facility] Basic Metab w/rfx MGon 11-29 Anion gap [Moles/Vol] 4 mmol/L Low 9-16 [facility] Comment on above: Performed By: #### B ALOK FINK4, CDP #### [employer] [address] [place] [address] Fitting Room Checker: Dwain Aldana MD Calcium [Mass/Vol] 6.6 mg/dL Low 8.6-10.4 [facility] Comment on above: Performed By: #### B ALOK FINK4, CDP #### [employer] [address] [place] [address] Fitting Room Checker: Dwain Aldana MD Chloride [Moles/Vol] 108 mmol/L High 98-107 [facility] Comment on above: Performed By: #### B ALOK FINK4, CDP #### [employer] [address] [place] [address] Fitting Room Checker: Dwain Aldana MD CO2 [Moles/Vol] 26 mmol/L Normal 20-31 [facility] Comment on above: Performed By: #### B ALEKS FT4, CDP #### [employer] [address] [place] [address] Fitting Room Checker: Dwain Aldana MD Creatinine [Mass/Vol] 0.4 mg/dL Low 0.50-0.90 [facility] Comment on above: Performed By: #### B LAEKS FT4, CDP #### [employer] [address] [place] [address] Fitting Room Checker: Dwain Aldana MD GFR/1.73 sq M.predicted among non-blacks MDRD (S/P/Bld) [Vol rate/Area] mL/min/{1.73_m2} Normal >60 [facility] Comment on above: Result Comment: These results [...] By: #### B MPX, FT4, CDP #### [facility] [address] [place] [address] Fitting Room Checker: Dwain Aldana MD Glucose [Mass/Vol] 83 mg/dL Normal 74-99 [facility] Comment on above: Performed By: #### B SWATHIX FT4, CDP #### [address] [address] Fitting Room Checker: Dwain Aldana MD Potassium [Moles/Vol] 4.4 mmol/L Normal 3.7-5.3 [facility] Comment on above: Performed By: #### B MPX FT4, CDP #### [facility] [employer] [address] [place] [address] Fitting Room Checker: Dwain Aldana MD Sodium [Moles/Vol] 138 mmol/L Normal 136-145 [facility] Comment on above: Performed By: #### B MPX FT4, CDP #### [facility] [address] [place] [address] Fitting Room Checker: Dwain Aldana MD Urea nitrogen [Mass/Vol] 12 mg/dL Normal 8-23 [facility] Comment on above: Performed By: #### B MPX, FT4, CDP #### [facility] [employer] [address] [place] [address] Fitting Room Checker: Dwain Aldana MD Basic Metabolic Panel w/ Ref merlene to MGon 11-30-2023 Anion gap [Moles/Vol] 4 mmol/L Low 9 - 16 mmol/L [facility] Calcium [Mass/Vol] 6.6 mg/dL Low 8.6 - 10. 4 mg/dL [facility] Chloride [Moles/Vol] 108 mmol/L High 98 - 10 7 mmol/L [facility] CO2 [Moles/Vol] 26 mmol/L 20 - 31 mmol/L [facility] Creatinine [Mass/Vol] 0.4 mg/dL Low 0.50 - 0.90 mg/dL [facility] [place] [employer] [facility] [place] [facility] Comment on above: These results [...] [Mass/Vol] 83 mg/dL 74 - 99 mg/dL [facility] Interpretation and review of laboratory results Abnormal [facility] Potassium [Moles/Vol] 4.4 mmol/L 3.7 - 5.3 mmol/L [facility] Sodium [Moles/Vol] 138 mmol/L 136 - 145 mmol/L [facility] Urea nitrogen [Mass/Vol] 12 mg/dL 8 - 23 mg/dL [facility] CBC with Auto Differentialon 11-30-2023 Basophils (Bld) [#/Vol] 0.03 10*3/uL [facility] Basophils/100 WBC (Bld) 0 % 0 - 2 % [facility] Eosinophils (Bld) [#/Vol] 0.09 10*3/uL [facility] Eosinophils/100 WBC (Bld) 1 % 1 - 4 % [facility] Erythrocyte distribution width (RBC) [Ratio] 17.1 % High 11.8 - 14.4 % [facility] Hematocrit (Bld) [Volume fraction] 19.8 % Low 36.3 - 47.1 % [facility] Hemoglobin (Bld) [Mass/Vol] 6.2 g/dL Critically low 11.9 - 15.1 g/dL [facility] Immature granulocytes (Bld) [#/Vol] 0.06 10*3/uL [facility] Immature granulocytes/100 WBC (Bld) 1 % High 0 [facility] Interpretation and review of laboratory results Abnormal [facility] Lymphocytes/100 WBC (Bld) 19 % Low 24 - 43 % [facility] Lymphocytes/100 WBC (Bld) 1.67 % [facility] MCH (RBC) [Entitic mass] 30.7 pg 25.2 - 33.5 pg [facility] MCHC (RBC) [Mass/Vol] 31.3 g/dL 28.4 - 34.8 g/dL [facility] MCV (RBC) [Entitic vol] 98.0 fL 82.6 - 102.9 fL [facility] Monocytes/100 WBC (Bld) 8 % 3 - 12 % [facility] Monocytes/100 WBC (Bld) 0.73 % [facility] Neutrophils/100 WBC (Bld) 70 % High 36 - 65 % [facility] Nucleated RBC/100 WBC (Bld) [Ratio] 0.0 % 0.0 per 100 WBC [facility] Platelet mean volume (Bld) [Entitic vol] 10.3 fL 8.1 - 13.5 fL [facility] Platelets (Bld) [#/Vol] 171 10*3/uL [facility] RBC (Bld) [#/Vol] 2.02 10*6/uL Low 3.95 - 5.11 m/uL [facility] RBC (Bld) [#/Vol] ANISOCYTOSIS PRESENT [facility] Segmented neutrophils/100 WBC (Bld) 6.10 % [facility] WBC other (Bld) [#/Vol] 8.7 [facility] CBC with Diffon 11-30-2023 Abs. Basophil 0.03 k/uL Normal 0.00-0.20 [facility] Comment on above: Performed By: #### B MPX, FT4, CDP #### [employer] [address] [place] [address] Fitting Room Checker: Dwain Aldana MD Abs.Imm.Granulocyte 0.06 k/uL Normal 0.00-0.30 [facility] Comment on above: Performed By: #### B MPX, FT4, CDP #### [facility] [employer] [address] [place] [address] Fitting Room Checker: Dwain Aldana MD Abs.Neutrophil (Seg) 6.10 k/uL Normal 1.50-8.10 [facility] Comment on above: Performed By: #### B MPX, FT4, CDP #### [facility] [employer] [address] [place] [address] Fitting Room Checker: Dwain Aldana MD Basophils/100 WBC (Bld) 0 % Normal 0-2 [facility] Comment on above: Performed By: #### B MPX, FT4, CDP #### [facility] [employer] [address] [place] [phone] Fitting Room Checker: Dwain Aldana MD Eosinophils (Bld) [#/Vol] 0.09 10*3/uL Normal 0.00-0.44 [facility] Comment on above: Performed By: #### B MPX, FT4, CDP #### [facility] [address] [place] [address] 36829 Fitting Room Checker: Dwain Aldana MD Eosinophils/100 WBC (Bld) 1 % Normal 1-4 [facility] Comment on above: Performed By: #### B MPX, FT4, CDP #### [facility] [employer] [address] [place] [address] 79430 Fitting Room Checker: Dwain Aldana MD Immature granulocytes/100 WBC (Bld) 1 % High 0 [facility] Comment on above: Performed By: #### B MPX, FT4, CDP #### [facility] [address] [place] [address] Fitting Room Checker: Dwain Aldana MD Lymphocytes (Bld) [#/Vol] 1.67 10*3/uL Normal 1.10-3.70 [facility] Comment on above: Performed By: #### B MPX, FT4, CDP #### [facility] [employer] [address] [place] [address] 94743 Fitting Room Checker: Dwain Aldana MD Lymphocytes/100 WBC (Bld) 19 % Low 24-43 [facility] Comment on above: Performed By: #### B MPX, FT4, CDP #### [facility] [employer] [address] [place] [address] 79039 Fitting Room Checker: Dwain Aldana MD Monocytes (Bld) [#/Vol] 0.73 10*3/uL Normal 0.10-1.20 [facility] Comment on above: Performed By: #### B MPX, FT4, CDP #### [facility] [employer] [address] [place] [address] 21657 Fitting Room Checker: Dwain Aldana MD Monocytes/100 WBC (Bld) 8 % Normal 3-12 [facility] Comment on above: Performed By: #### B MPX, FT4, CDP #### [facility] [address] [place] [address] 34420 Fitting Room Checker: Dwain Aldana MD Neutrophil (Seg) 70 % High 36-65 [facility] Comment on above: Performed By: #### B MPX, FT4, CDP #### [facility] [employer] [address] [place] [address] [phone] Fitting Room Checker: Dwain Aldana MD Erythrocyte distribution width (RBC) [Ratio] 17.1 % High 11.8-14.4 [facility] Comment on above: Performed By: #### B MPX, FT4, CDP #### [facility] [address] [place] [address] 37296 Fitting Room Checker: Dwain Aldana MD Hematocrit (Bld) [Volume fraction] 19.8 % Low 36.3-47.1 [facility] Comment on above: Performed By: #### B MPX, FT4, CDP #### [facility] [employer] [address] [place] [address] 23232 Fitting Room Checker: Dwain Aldana MD Hemoglobin (Bld) [Mass/Vol] 6.2 g/dL Critically low 11.9-15.1 [facility] Comment on above: Performed By: #### B MPX, FT4, CDP #### [facility] [employer] [address] [place] [address] 46643 Fitting Room Checker: Dwain Aldana MD MCH (RBC) [Entitic mass] 30.7 pg Normal 25.2-33.5 [facility] Comment on above: Performed By: #### B MPX, FT4, CDP #### [facility] [employer] [address] [place] [address] 85886 Fitting Room Checker: Dwain Aldana MD MCHC (RBC) [Mass/Vol] 31.3 g/dL Normal 28.4-34.8 [facility] Comment on above: Performed By: #### B MPX, FT4, CDP #### [facility] [employer] [address] [place] [address] 44223 Fitting Room Checker: Dwain Aldana MD MCV (RBC) [Entitic vol] 98.0 fL Normal 82.6-102.9 [facility] Comment on above: Performed By: #### B MPX, FT4, CDP #### [facility] [employer] [address] [place] [address] 31381 Fitting Room Checker: Dwain Aldana MD NRBC Automated 0.0 per 100 WBC Normal 0.0 [facility] Comment on above: Performed By: #### B MPX, FT4, CDP #### [facility] [employer] [address] [place] [address] Fitting Room Checker: Dwain Aldana MD Platelet mean volume (Bld) [Entitic vol] 10.3 fL Normal 8.1-13.5 [facility] Comment on above: Performed By: #### B MPX, FT4, CDP #### [facility] [employer] [address] [place] [address] 25188 Fitting Room Checker: Dwain Aldana MD Platelets (Bld) [#/Vol] 171 10*3/uL Normal 138-453 [facility] Comment on above: Performed By: #### B MPX, FT4, CDP #### [facility] [employer] [address] [place] [address] 28777 Fitting Room Checker: Dwain Aldana MD RBC (Bld) [#/Vol] 2.02 10*6/uL Low 3.95-5.11 [facility] Comment on above: Performed By: #### B MPX, FT4, CDP #### [facility] [employer] [address] [place] [address] 12443 Fitting Room Checker: Dwain Aldana MD RBC morphology finding Nom (Bld) ANISOCYTOSIS PRESENT Normal [facility] Comment on above: Performed By: #### B MPX, FT4, CDP #### [facility] [employer] [address] [place] [address] 28099 Fitting Room Checker: Dwain Aldana MD WBC (Bld) [#/Vol] 8.7 10*3/uL Normal 3.5-11.3 [facility] Comment on above: Performed By: #### B MPX, FT4, CDP #### [facility] [employer] [address] [place] [address] 64588 Fitting Room Checker: Dwain Aldana MD Calcium, Ionicon 11-30-2023 Calcium [Moles/Vol] 1.07 mmol/L Low 1.13-1.33 [facility] Comment on above: Performed By: #### B MPX, MG, CDP #### [employer] [address] [place], [place] [phone] Fitting Room Checker: Dwain Aldana MD Calcium, Ionizedon 4 Calcium.ionized (Bld) [Moles/Vol] 1.07 mmol/L Low 1.13 - 1.33 mmol/L [facility] Cult, Bloodon 11-30-2023 Cult, Blood Specimen Description .BLOOD Special Requests Culture NO GROWTH 5 DAYS Report Status FINAL 11/30/2023 [facility] Comment on above: Performed By: #### B MPX, MG, CDP #### [facility] [facility] [place] [address] Fitting Room Checker: Dwain Aldana MD Cult,Bloodon 11-30-2023 Cult,Blood Specimen Description .BLOOD Special Requests Culture NO GROWTH 5 DAYS Report Status FINAL 11/30/2023 [facility] Comment on above: Performed By: #### B MPX, MG, CDP #### [facility] [place], [place] [phone] Fitting Room Checker: Dwain Aldana MD Culture, Blood 1on 4 Microorganism identified Cx Nom (Unsp spec) NO GROWTH 5 DAYS [facility] Service comment (Unsp spec) [Interp] [facility] Specimen Description .BLOOD [facility] Culture, Blood 2on 4 Microorganism identified Cx Nom (Unsp spec) NO GROWTH 5 DAYS [facility] Service comment (Unsp spec) [Interp] [facility] Specimen Description .BLOOD [facility] Glucose,Whole Bloodon 2023 Glucose [Mass/Vol] 79 mg/dL Normal 65-105 [facility] Hemoglobin and Hematocriton 11-30-2023 Hematocrit (Bld) [Volume fraction] 23.8 % Low 36.3 - 47.1 % [facility] Hemoglobin (Bld) [Mass/Vol] 7.9 g/dL Low 11.9 - 15.1 g/dL [facility] Interpretation and review of laboratory results Abnormal [facility] Hematocrit (Bld) [Volume fraction] 27.5 % Low 36.3 - 47.1 % [facility] Hemoglobin (Bld) [Mass/Vol] 8.6 g/dL Low 11.9 - 15.1 g/dL [facility] Interpretation and review of laboratory results Abnormal [facility] Hematocrit (Bld) [Volume fraction] 26.2 % Low 36.3 - 47.1 % [facility] Hemoglobin (Bld) [Mass/Vol] 8.3 g/dL Low 11.9 - 15.1 g/dL [facility] Interpretation and review of laboratory results Abnormal [facility] Hgb/Hcton 11-30-2023 Hematocrit (Bld) [Volume fraction] 23.8 % Low 36.3-47.1 [facility] Comment on above: Performed By: #### H H #### [facility] [address] [place] [address] Fitting Room Checker: Dwain Aldana MD Hemoglobin (Bld) [Mass/Vol] 7.9 g/dL Low 11.9-15.1 [facility] Comment on above: Performed By: #### H H #### [facility] [address] [place] [address] Fitting Room Checker: Dwain Aldana MD Hematocrit (Bld) [Volume fraction] 27.5 % Low 36.3-47.1 [facility] Comment on above: Performed By: #### B MPX, MG, CDP #### [employer] [address] [place] [address] Fitting Room Checker: Dwain Aldana MD Hemoglobin (Bld) [Mass/Vol] 8.6 g/dL Low 11.9-15.1 [facility] Comment on above: Performed By: #### B MPX, MG, CDP #### [facility] [address] [place] [address] [phone] Fitting Room Checker: Dwain Aldana MD Hematocrit (Bld) [Volume fraction] 26.2 % Low 36.3-47.1 [facility] Comment on above: Performed By: #### H H #### [facility] [address] [place] [address] Fitting Room Checker: Dwain Aldana MD Hemoglobin (Bld) [Mass/Vol] 8.3 g/dL Low 11.9-15.1 [facility] Comment on above: Performed By: #### H H #### [facility] [employer] [address] [place] [address] 85699 Fitting Room Checker: Dwain Aldana MD Lactic Acidon 11-30-2023 Lactic Acid,Whole Bl 0.6 mmol/L Low 0.7-2.1 [facility] Comment on above: Performed By: #### B MPX, MG, CDP #### [facility] [employer] [facility] [place] [address] Fitting Room Checker: Dwain Aldana MD Lactic Acid, Whole Blood 0.6 mmol/L Low 0.7 - 2.1 mmol/L [facility] MRSA DNA Probe, Nasalon MRSA, DNA, Nasal Negative NEGATIVE [facility] Comment on above: NEGATIVE: MRSA DNA n ot detected by nucleic acid amplification. Results should be used as an adjunct to nosocomial control efforts to identify patients needing enhanced precautions. The test is not intended to identify patients with staphylococcal infections. Results should not be used to guide or monitor treatment for MRSA infections. Specimen Description .NASAL SWAB [facility] MRSA, DNA, Nasalon MRSA, DNA, Nasal Negative Normal NEG [facility] Comment on above: Result Comment: NEGA TIVE: MRSA DNA not detected by nucleic acid amplification. Results should be used as an adjunct to nosocomial control efforts to identify patients needing enhanced precautions. The test is not intended to identify patients with staphylococcal infections. Results should not be used to guide or monitor treatment for MRSA infections. Performed By: #### M RSANO #### [facility] [address] [place], [place] [phone] Fitting Room Checker: Dwain Aldana MD No Panel Informationon 11-29 Interpretation and review of laboratory results Abnormal [facility] POC Glucose Fingerstickon Glucose [Mass/Vol] 79 mg/dL 65 - 105 mg/dL [facility] PREVIOUS SPECIMENon 11-30-19 24 [facility] Procalcitoninon 11-30-2023 Procalcitonin 0.05 ng/mL Normal <0.09 [facility] Comment on above: Result Comment: Suspected Sepsis: [...] entered into the Change in Procalcitonin Calculator ([email or web address]) to determine the patient's Mortality Risk Prognosis In healthy neonates, plasma Procalcitonin (PCT) concentrations increase gradually after , reaching peak values at about 24 hours of age then decrease to normal values below 0.5 ng/mL by 48-72 hours of age. Performed By: #### T SHX, PRCAL #### [facility] [address] [place], [place] [id number] Fitting Room Checker: Dwain Aldana MD Specimen Rejectionon 024 Reason for rejection Unable to perform t esting: Specimen clotted. Normal [facility] Comment on above: Performed By: #### H H #### [employer] [address] [place] [address] [phone] Fitting Room Checker: Dwain Aldana MD Source of sample .BLOOD Normal [facility] Comment on above: Performed By: #### H H #### [facility] [address] [place] [address] [phone] Fitting Room Checker: Dwain Aldana MD Test ordered HH [facility] Comment on above: Performed By: #### H H #### [facility] [address] [place] [address] [phone] Fitting Room Checker: Dwain Aldana MD T4, Freeon 11-30-2023 Free T4 [Mass/Vol] 1.3 ng/dL 0.92 - 1.68 ng/dL [facility] Thyroxine, Freeon 11-30-2023 Thyroxine, Free 1.3 ng/dL Normal 0.92-1.68 [facility] Comment on above: Performed By: #### B MPX, MG, CDP #### [facility] [address] [place] [address] [phone] Fitting Room Checker: Dwain Aldana MD Type + Screenon 11-30-2023 Type + Screen Sample Expiration 12/02/2023,2359 Arm Band Number [id number] ABO/Rh(D) A POSITIVE Antibody Screen NEGATIVE Unit Number [id number] Blood Component Type Leukocyte Reduced Red Cell Unit Division 00 Status of Unit TRANSFUSED Transfusion Status OK TO TRANSFUSE Crossmatch Result COMPATIBLE Unit Number [id number] Blood Component Type Leukocyte Reduced Red Cell Unit Division 00 Status of Unit TRANSFUSED Transfusion Status OK TO TRANSFUSE Crossmatch Result COMPATIBLE Unit Number [id number] Blood Component Type Leukocyte Reduced Red Cell Unit Division 00 Status of Unit TRANSFUSED Transfusion Status OK TO TRANSFUSE Crossmatch Result COMPATIBLE Normal [facility] Comment on above: Performed By: #### H H #### [facility] [address] [place] [address] [phone] Fitting Room Checker: Dwain Aldana MD BLOOD BANK SPECIMENon 2023 [facility] Basic Metab w/rfx MGon 11-28 Anion gap [Moles/Vol] 9 mmol/L Normal 9-16 [facility] Comment on above: Performed By: #### B MPX, MG, CDP #### [facility] [employer] [address] [place] [address] 33168 Fitting Room Checker: Dwain Aldana MD Calcium [Mass/Vol] 6.7 mg/dL Low 8.6-10.4 [facility] Comment on above: Performed By: #### B MPX, MG, CDP #### [facility] [address] [place] [address] 77425 Fitting Room Checker: Dwain Aldana MD Chloride [Moles/Vol] 103 mmol/L Normal 98-107 [facility] Comment on above: Performed By: #### B MPX, MG, CDP #### [facility] [address] [place] [address] 41964 Fitting Room Checker: Dwain Aldana MD CO2 [Moles/Vol] 23 mmol/L Normal 20-31 [facility] Comment on above: Performed By: #### B MPX, MG, CDP #### [facility] [address] [place] [address] 31631 Fitting Room Checker: Dwain Aldana MD Creatinine [Mass/Vol] 0.4 mg/dL Low 0.50-0.90 [facility] Comment on above: Performed By: #### B MPX, MG, CDP #### [facility] [address] [place] [address] 17091 Fitting Room Checker: Dwain Aldana MD GFR/1.73 sq M.predicted among non-blacks MDRD (S/P/Bld) [Vol rate/Area] mL/min/{1.73_m2} Normal >60 [facility] Comment on above: Result Comment: These results [...] By: #### B MPX MG, CDP #### [facility] [address] [place] [address] 03026 Fitting Room Checker: Dwain Aldana MD Glucose [Mass/Vol] 210 mg/dL High 74-99 [facility] Comment on above: Performed By: #### B MPX MG, CDP #### [facility] [address] [place] [address] 55539 Fitting Room Checker: Dwain Aldana MD Potassium [Moles/Vol] 3.3 mmol/L Low 3.7-5.3 [facility] Comment on above: Performed By: #### B MPX MG, CDP #### [facility] [address] [place] [address] 25112 Fitting Room Checker: Dwain Aldana MD Sodium [Moles/Vol] 135 mmol/L Low 136-145 [facility] Comment on above: Performed By: #### B MPX MG, CDP #### [facility] [address] [place] [address] 83793 Fitting Room Checker: Dwain Aldana MD Urea nitrogen [Mass/Vol] 9 mg/dL Normal 8-23 [facility] Comment on above: Performed By: #### B MPX, MG, CDP #### [facility] [address] [place] [address] 23190 Fitting Room Checker: Dwain Aldana MD Basic Metabolic Panel w/ Ref merlene to [facility] 11-29-2023 Anion gap [Moles/Vol] 9 mmol/L 9 - 16 mmol/L [facility] Calcium [Mass/Vol] 6.7 mg/dL Low 8.6 - 10. 4 mg/dL [facility] Chloride [Moles/Vol] 103 mmol/L 98 - 10 7 mmol/L [facility] CO2 [Moles/Vol] 23 mmol/L 20 - 31 mmol/L [facility] Creatinine [Mass/Vol] 0.4 mg/dL Low 0.50 - 0.90 mg/dL [facility] [place] - [facility] Comment on above: These results [...] 210 mg/dL High 74 - 99 mg/dL [facility] Interpretation and review of laboratory results Abnormal [facility] Potassium [Moles/Vol] 3.3 mmol/L Low 3.7 - 5.3 mmol/L [facility] Sodium [Moles/Vol] 135 mmol/L Low 136 - 145 mmol/L [facility] Urea nitrogen [Mass/Vol] 9 mg/dL 8 - 23 mg/dL [facility] CBC with Auto Differentialon 11-29-2023 Basophils (Bld) [#/Vol] 0.03 10*3/uL [facility] Basophils/100 WBC (Bld) 0 % 0 - 2 % [facility] Eosinophils (Bld) [#/Vol] 0.04 10*3/uL [facility] Eosinophils/100 WBC (Bld) 0 % Low 1 - 4 % [facility] Erythrocyte distribution width (RBC) [Ratio] 19.0 % High 11.8 - 14.4 % [facility] Hematocrit (Bld) [Volume fraction] 20.7 % Low 36.3 - 47.1 % [facility] Hemoglobin (Bld) [Mass/Vol] 6.2 g/dL Critically low 11.9 - 15.1 g/dL [facility] Immature granulocytes (Bld) [#/Vol] 0.07 10*3/uL [facility] Immature granulocytes/100 WBC (Bld) 1 % High 0 [facility] Interpretation and review of laboratory results Abnormal [facility] Lymphocytes/100 WBC (Bld) 7 % Low 24 - 43 % [facility] Lymphocytes/100 WBC (Bld) 0.79 % Low [facility] MCH (RBC) [Entitic mass] 30.7 pg 25.2 - 33.5 pg [facility] MCHC (RBC) [Mass/Vol] 30.0 g/dL 28.4 - 34.8 g/dL [facility] MCV (RBC) [Entitic vol] 102.5 fL 82.6 - 102.9 fL [facility] Monocytes/100 WBC (Bld) 4 % 3 - 12 % [facility] Monocytes/100 WBC (Bld) 0.53 % [facility] Neutrophils/100 WBC (Bld) 88 % High 36 - 65 % [facility] Nucleated RBC/100 WBC (Bld) [Ratio] 0.0 % 0.0 per 100 WBC [facility] Platelet mean volume (Bld) [Entitic vol] 10.8 fL 8.1 - 13.5 fL [facility] Platelets (Bld) [#/Vol] 245 10*3/uL [facility] RBC (Bld) [#/Vol] 2.02 10*6/uL Low 3.95 - 5.11 m/uL [facility] RBC (Bld) [#/Vol] ANISOCYTOSIS PRESENT [facility] Segmented neutrophils/100 WBC (Bld) 10.71 % High [facility] WBC other (Bld) [#/Vol] 12.2 High [facility] CBC with Diffon 11-29-2023 Abs. Basophil 0.03 k/uL Normal 0.00-0.20 [facility] Comment on above: Performed By: #### B MPX, MG, CDP #### [facility] [employer] [facility] [place] [address] Fitting Room Checker: Dwain Aldana MD Abs.Imm.Granulocyte 0.07 k/uL Normal 0.00-0.30 [facility] Comment on above: Performed By: #### B MPX, MG, CDP #### [facility] [employer] [address] [place] [address] Fitting Room Checker: Dwain Aldana MD Abs.Neutrophil (Seg) 10.71 k/uL High 1.50-8.10 [facility] Comment on above: Performed By: #### B MPX, MG, CDP #### [facility] [employer] [address] [place] [address] Fitting Room Checker: Dwain Aldana MD Basophils/100 WBC (Bld) 0 % Normal 0-2 [facility] Comment on above: Performed By: #### B MPX, MG, CDP #### [facility] [employer] [address] [place] [address] Fitting Room Checker: Dwain Aldana MD Eosinophils (Bld) [#/Vol] 0.04 10*3/uL Normal 0.00-0.44 [facility] Comment on above: Performed By: #### B MPX, MG, CDP #### [place] [address] Fitting Room Checker: Dwain Aldana MD Eosinophils/100 WBC (Bld) 0 % Low 1-4 [facility] Comment on above: Performed By: #### B MPX, MG, CDP #### [facility] [employer] [address] [place] [address] Fitting Room Checker: Dwain Aldana MD Erythrocyte distribution width (RBC) [Ratio] 19.0 % High 11.8-14.4 [facility] Comment on above: Performed By: #### B MPX, MG, CDP #### [facility] [employer] [address] [place] [address] Fitting Room Checker: Dwain Aldana MD Hematocrit (Bld) [Volume fraction] 20.7 % Low 36.3-47.1 [facility] Comment on above: Performed By: #### B MPX, MG, CDP #### [facility] [employer] [address] [place] [address] [phone] Fitting Room Checker: Dwain Aldana MD Hemoglobin (Bld) [Mass/Vol] 6.2 g/dL Critically low 11.9-15.1 [facility] Comment on above: Performed By: #### B MPX, MG, CDP #### [facility] [employer] [address] [place] [address] [phone] Fitting Room Checker: Dwain Aldana MD Immature granulocytes/100 WBC (Bld) 1 % High 0 [facility] Comment on above: Performed By: #### B MPX, MG, CDP #### [facility] [employer] [address] [place] [address] Fitting Room Checker: Dwain Aldana MD Lymphocytes (Bld) [#/Vol] 0.79 10*3/uL Low 1.10-3.70 [facility] Comment on above: Performed By: #### B MPX, MG, CDP #### [facility] [employer] [address] [place] [address] Fitting Room Checker: Dwain Aldana MD Lymphocytes/100 WBC (Bld) 7 % Low 24-43 [facility] Comment on above: Performed By: #### B MPX, MG, CDP #### [facility] [employer] [address] [place] [address] Fitting Room Checker: Dwain Aldana MD MCH (RBC) [Entitic mass] 30.7 pg Normal 25.2-33.5 [facility] Comment on above: Performed By: #### B MPX, MG, CDP #### [facility] [employer] [address] [place] [address] 74738 Fitting Room Checker: Dwain Aldana MD MCHC (RBC) [Mass/Vol] 30.0 g/dL Normal 28.4-34.8 [facility] Comment on above: Performed By: #### B MPX, MG, CDP #### [facility] [employer] [address] [place] [address] 22886 Fitting Room Checker: Dwain Aldana MD MCV (RBC) [Entitic vol] 102.5 fL Normal 82.6-102.9 [facility] Comment on above: Performed By: #### B MPX, MG, CDP #### [facility] [employer] [address] [place] [address] 34331 Fitting Room Checker: Dwain Aldana MD Monocytes (Bld) [#/Vol] 0.53 10*3/uL Normal 0.10-1.20 [facility] Comment on above: Performed By: #### B MPX, MG, CDP #### [facility] [employer] [address] [place] [address] 39667 Fitting Room Checker: Dwain Aldana MD Monocytes/100 WBC (Bld) 4 % Normal 3-12 [facility] Comment on above: Performed By: #### B MPX, MG, CDP #### [facility] [employer] [address] [place] [address] 93054 Fitting Room Checker: Dwain Aldana MD Neutrophil (Seg) 88 % High 36-65 [facility] Comment on above: Performed By: #### B MPX, MG, CDP #### [address] [address] Fitting Room Checker: Dwain Aldana MD NRBC Automated 0.0 per 100 WBC Normal 0.0 [facility] Comment on above: Performed By: #### B MPX, MG, CDP #### [facility] [employer] [address] [place] [address] 72540 Fitting Room Checker: Dwain Aldana MD Platelet mean volume (Bld) [Entitic vol] 10.8 fL Normal 8.1-13.5 [facility] Comment on above: Performed By: #### B MPX, MG, CDP #### [address] [address] Fitting Room Checker: Dwain Aldana MD Platelets (Bld) [#/Vol] 245 10*3/uL Normal 138-453 [facility] Comment on above: Performed By: #### B MPX, MG, CDP #### [address] [address] Fitting Room Checker: Dwain Aldana MD RBC (Bld) [#/Vol] 2.02 10*6/uL Low 3.95-5.11 [facility] Comment on above: Performed By: #### B MPX, MG, CDP #### [facility] [employer] [address] [place] [address] 36253 Fitting Room Checker: Dwain Aldana MD RBC morphology finding Nom (Bld) ANISOCYTOSIS PRESENT Normal [facility] Comment on above: Performed By: #### B MPX, MG, CDP #### [facility] [employer] [address] [place] [address] [phone] Fitting Room Checker: Dwain Aldana MD WBC (Bld) [#/Vol] 12.2 10*3/uL High 3.5-11.3 [facility] Comment on above: Performed By: #### B MPX, MG, CDP #### [address] [address] [address] Fitting Room Checker: Dwain Aldana MD CT SINUS WO CONTRASTon [...] Ion Leon MD 11/29/23 Final result Normal [facility] CT Sinuses WO contraston Chronic sinusitis involving the left maxillary sinus. Potential remote posttraumatic change of the left inferior orbital wall and correlation is needed. [facility] EXAMINATION: CT OF THE SINUS WITHOUT [...] intracranial contents demonstrate no gross acute abnormality. [facility] Ion Leon MD - 11/29/2023 EXAMINATION: [...] inferior orbital wall and correlation is needed. [facility] Radiology Study observation (narrative) [facility] CTA ABDOMEN PELVIS W WO CONT RASTon [...] Shagufta Echevarria DO 11/29/23 Final result Normal [facility] CTA Abdominal vessels and Pe lvis vessels [...] its branches without evidence of flow-limiting stenosis. [facility] Radiology Study observation (narrative) [facility] CTA Abdominal vessels and Pe lvis vessels WO and W contrast IVOrdered By: Shagufta Echevarria on 11-29-2023 [facility] Work Phone: Hemoglobin and Hematocriton 11-29-2023 Hematocrit (Bld) [Volume fraction] 23.5 % Low 36.3 - 47.1 % [facility] Hemoglobin (Bld) [Mass/Vol] 7.8 g/dL Low 11.9 - 15.1 g/dL [facility] Interpretation and review of laboratory results Abnormal [facility] Hematocrit (Bld) [Volume fraction] 18.8 % Low 36.3 - 47.1 % [facility] Hemoglobin (Bld) [Mass/Vol] 6.0 g/dL Critically low 11.9 - 15.1 g/dL [facility] Interpretation and review of laboratory results Abnormal [facility] Hepatic Function Panelon Albumin [Mass/Vol] 2.1 g/dL Low 3.5 - 5.2 g/dL [facility] Albumin/Globulin [Mass ratio] 2.0 {ratio} 1.0 - 2.5 [facility] ALP [Catalytic activity/Vol] 45 U/L 35 - 104 U/L [facility] ALT [Catalytic activity/Vol] 19 U/L 10 - 35 U/L [facility] AST [Catalytic activity/Vol] 27 U/L 10 - 35 U/L [facility] Bilirubin [Mass/Vol] mg/dL 0.00 - 1.20 mg/dL [facility] Bilirubin.direct [Mass/Vol] mg/dL 0.00 - 0.30 mg/dL [facility] Bilirubin.indirect [Mass/Vol] Can not be calculated 0.0 - 1.0 mg/dL [facility] Globulin (S) [Mass/Vol] 1.4 g/dL [facility] Interpretation and review of laboratory results Abnormal [facility] Protein [Mass/Vol] 3.5 g/dL Low 6.6 - 8.7 g/dL [facility] Hgb/Hcton 11-29-2023 Hematocrit (Bld) [Volume fraction] 23.5 % Low 36.3-47.1 [facility] Comment on above: Performed By: #### H H #### [facility] [address], [place] [phone] Fitting Room Checker: Dwain Aldana MD Hemoglobin (Bld) [Mass/Vol] 7.8 g/dL Low 11.9-15.1 [facility] Comment on above: Performed By: #### H H #### [facility] [address] [place] [address] Fitting Room Checker: Dwain Aldana MD Hematocrit (Bld) [Volume fraction] 18.8 % Low 36.3-47.1 [facility] Comment on above: Performed By: #### H H #### [address] [address] Fitting Room Checker: Dwain Aldana MD Hemoglobin (Bld) [Mass/Vol] 6.0 g/dL Critically low 11.9-15.1 [facility] Comment on above: Performed By: #### H H #### [facility] [employer] [address] [place] [address] Fitting Room Checker: Dwain Aldana MD Liver Profileon 11-29-2023 Albumin [Mass/Vol] 2.1 g/dL Low 3.5-5.2 [facility] Comment on above: Performed By: #### B MPX, MG, CDP #### [facility] [employer] [address] [place] [address] Fitting Room Checker: Dwain Aldana MD Albumin/Glob Ratio 2.0 Normal 1.0-2.5 [facility] Comment on above: Performed By: #### B MPX, MG, CDP #### [facility] [employer] [address] [place] [address] Fitting Room Checker: Dwain Aldana MD Alkaline Phos 45 U/L Normal 35-104 [facility] Comment on above: Performed By: #### B MPX, MG, CDP #### [facility] [address] [place] [address] Fitting Room Checker: Dwain Aldana MD ALT [Catalytic activity/Vol] 19 U/L Normal 10-35 [facility] Comment on above: Performed By: #### B MPX, MG, CDP #### [facility] [address] [place] [address] Fitting Room Checker: Dwain Aldana MD AST [Catalytic activity/Vol] 27 U/L Normal 10-35 [facility] Comment on above: Performed By: #### B MPX, MG, CDP #### [facility] [employer] [address] [place] [address] Fitting Room Checker: Dwain Aldana MD Bilirubin [Mass/Vol] mg/dL Normal 0.00-1.20 [facility] Comment on above: Performed By: #### B MPX, MG, CDP #### [facility] [address] [place] [address] Fitting Room Checker: Dwain Aldana MD Bilirubin, Indirect Can not be calculated Normal 0.0-1 .0 [facility] Comment on above: Performed By: #### B MPX, MG, CDP #### [facility] [employer] [address] [place] [address] Fitting Room Checker: Dwain Aldana MD Bilirubin.indirect [Mass/Vol] mg/dL Normal 0.00-0.30 [facility] Comment on above: Performed By: #### B MPX, MG, CDP #### [facility] [employer] [address] [place] [address] Fitting Room Checker: Dwain Aldana MD Globulin (S) [Mass/Vol] 1.4 g/dL Normal [facility] Comment on above: Performed By: #### B MPX, MG, CDP #### [facility] [address] [place] [address] Fitting Room Checker: Dwain Aldana MD Protein [Mass/Vol] 3.5 g/dL Low 6.6-8.7 [facility] Comment on above: Performed By: #### B MPX, MG, CDP #### [facility] [address] [place] [address] Fitting Room Checker: Dwain Aldana MD MRSA, DNA, Nasalon 4 Specimen Description .NASAL SWAB Normal [facility] Comment on above: Performed By: #### M RSANO #### [employer] [address], [place] [phone] Fitting Room Checker: Dwain Aldana MD Magnesiumon 11-29-2023 Magnesium [Mass/Vol] 1.7 mg/dL Normal 1.6-2.4 [facility] Comment on above: Performed By: #### B MPX, MG, CDP #### [employer] [address], [place] [phone] Fitting Room Checker: Dwain Aldana MD Magnesium [Mass/Vol] 1.7 mg/dL 1.6 - 2 .4 mg/dL [facility] PREVIOUS SPECIMENon 11-29-19 [facility] Procalcitoninon 11-29-2023 Procalcitonin [Mass/Vol] 0.05 ng/mL NINF - 0.09 ng/mL [facility] Comment on above: Suspected Sepsis: <0.50 ng/mL [...] entered into the Change in Procalcitonin Calculator ([email or web address]) to determine the patient's Mortality Risk Prognosis In healthy neonates, plasma Procalcitonin (PCT) concentrations increase gradually after , reaching peak values at about 24 hours of age then decrease to normal values below 0.5 ng/mL by 48-72 hours of age. [facility] Specimen Rejectionon 024 Reason for rejection Unable to perform t esting: Specimen quantity not sufficient. Normal [facility] Comment on above: Performed By: #### T SHX, PRCAL #### [employer] [address] [place] [phone] Fitting Room Checker: Dwain Aldana MD Source of sample .BLOOD Normal [facility] Comment on above: Performed By: #### T JEAN PRCAL #### [facility] [employer] [address] [place] [phone] Fitting Room Checker: Dwain Aldana MD Test ordered HH Normal [facility] Comment on above: Performed By: #### T JEAN PRCAL #### [facility] [employer] [address] [place] [phone] Fitting Room Checker: Dwain Aldana MD TSH w/reflex to FT4on 2023 Thyroid Stim. Horm. 9.13 uIU/mL High 0.27-4.20 [facility] Comment on above: Performed By: #### Patti PENA PRCAL #### [address] [address] Fitting Room Checker: Dwain Aldana MD TSH with Reflexon 11-29-2023 Interpretation and review of laboratory results Abnormal [facility] TSH Qn 9.13 m[IU]/L High [facility] Basic Metab w/rfx MGon 11-27 Anion gap [Moles/Vol] 9 mmol/L Normal 9-16 [facility] Comment on above: Performed By: #### T JEAN PRCAL #### [address] [address] Fitting Room Checker: Dwain Aldana MD Calcium [Mass/Vol] 6.4 mg/dL Low 8.6-10.4 [facility] Comment on above: Performed By: #### Patti PENA PRCAL #### [facility] [employer] [address] [place] [address] Fitting Room Checker: Dwain Aldana MD Chloride [Moles/Vol] 105 mmol/L Normal 98-107 [facility] Comment on above: Performed By: #### T JEAN PRCAL #### [address] [address] Fitting Room Checker: Dwain Aldana MD CO2 [Moles/Vol] 21 mmol/L Normal 20-31 [facility] Comment on above: Performed By: #### T JEAN PRCAL #### [address] [address] Fitting Room Checker: Dwain Aldana MD Creatinine [Mass/Vol] 0.3 mg/dL Low 0.50-0.90 [facility] Comment on above: Performed By: #### T JEAN PRCAL #### [address] [address] Fitting Room Checker: Dwain Aldana MD GFR/1.73 sq M.predicted among non-blacks MDRD (S/P/Bld) [Vol rate/Area] mL/min/{1.73_m2} Normal >60 [facility] Comment on above: Result Comment: These results [...] Performed By: #### Patti PENA PRCAL #### [address] [address] Fitting Room Checker: Dwain Aldana MD Glucose [Mass/Vol] 88 mg/dL Normal 74-99 [facility] Comment on above: Performed By: #### T JEAN PRCAL #### [address] [address] Fitting Room Checker: Dwain Aldana MD Potassium [Moles/Vol] 3.7 mmol/L Normal 3.7-5.3 [facility] Comment on above: Performed By: #### T LISAX, PRCAL #### [facility] [address], [place] [phone] Fitting Room Checker: Dwain Aldana MD Sodium [Moles/Vol] 135 mmol/L Low 136-145 [facility] Comment on above: Performed By: #### T LISAX, PRCAL #### [facility] [address], [place] [phone] Fitting Room Checker: Dwain Aldana MD Urea nitrogen [Mass/Vol] 10 mg/dL Normal 8-23 [facility] Comment on above: Performed By: #### T LISAX, PRCAL #### [facility] [address], [place] [phone] Fitting Room Checker: Dwain Aldana MD Basic Metabolic Panel w/ Ref merlene to MGon 11-28-2023 Anion gap [Moles/Vol] 9 mmol/L 9 - 16 mmol/L [facility] Calcium [Mass/Vol] 6.4 mg/dL Low 8.6 - 10. 4 mg/dL [facility] Chloride [Moles/Vol] 105 mmol/L 98 - 10 7 mmol/L [facility] CO2 [Moles/Vol] 21 mmol/L 20 - 31 mmol/L [facility] Creatinine [Mass/Vol] 0.3 mg/dL Low 0.50 - 0.90 mg/dL [facility], Glom Filt Rate - PINF [facility] Comment on above: These results [...] [Mass/Vol] 88 mg/dL 74 - 99 mg/dL [facility] Interpretation and review of laboratory results Abnormal [facility] Potassium [Moles/Vol] 3.7 mmol/L 3.7 - 5.3 mmol/L [facility] Sodium [Moles/Vol] 135 mmol/L Low 136 - 145 mmol/L [facility] Urea nitrogen [Mass/Vol] 10 mg/dL 8 - 23 mg/dL [facility] Hgb/Hcton 11-28-2023 Hematocrit (Bld) [Volume fraction] 24.0 % Low 36.3-47.1 [facility] Comment on above: Performed By: #### H H #### [employer] [address], [place] [phone] Fitting Room Checker: Dwain Aldana MD Hemoglobin (Bld) [Mass/Vol] 7.5 g/dL Low 11.9-15.1 [facility] Comment on above: Performed By: #### H H #### [employer] [address], [place] [phone] Fitting Room Checker: Dwain Aldana MD IR EMBOLIZATION HEMORRHAGEon 11-28-2023 Contrast extravasati on via truncated duodenal side-branch GDA with successful coil embolization, as above. [facility] RIS Jorge Lopez MD - 11/28/2023 PROCEDURE: IR EMBOLIZATION VASCULAR ANY HEMORRHAGE 11/27/2023 HISTORY: ORDERING SYSTEM PROVIDED HISTORY: Embolization of GDA/GI bleed TECHNOLOGIST PROVIDED HISTORY: Embolization of GDA/GI bleed CONTRAST: Isovue 370-110 mL SEDATION: Fentanyl 50 mcg IV for discomfort. Medications were provided and recorded by Radiology nurses. FLUOROSCOPY DOSE AND TYPE: Fluoroscopy time-15.7 minutes. Radiation Exposure Index: DAP cGy*m2, 56295 DESCRIPTION OF PROCEDURE: Arteries interrogated: Celiac, GDA, [...] for a 0.035 inch wire and 5 [place] Islander introducer sheath. Randal 5 [place]er x 65 cm catheter was introduced and the celiac artery catheterize; hand celiac angiography was performed. A 0.035 inch glidewire was manipulated into the distal hepatic arteries, catheter exchanged for a 5 [place] Cobra glide catheter which was manipulated into the origin GDA. Digital angiography was then performed. [employer] delivery microcatheter 45 degree tip was then [...] removed. Subsequent hand injection via the 5 [place]er catheter the proper hepatic was performed. The guide catheter was removed, and the Randal catheter reinserted. Celiac and SMA digital angiography were then performed. The Randal catheter was removed. Hand digital angiography right iliofemoral vessels was performed at the groin. The right groin was re-prepped, and a 5 [place]er Vascade closure device was deployed right LABOR CONTRACTOR. The patient tolerated procedure well and there [...] or site of bleeding identified. 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 [facility] IR EMBOLIZATION HEMORRHAGEOr dered By: Jorge Russo on 11-28-2023 [facility] Work Phone: No Panel Informationon 11-27 Blood Bank Blood Product Expiration Date [id number] [facility] Blood Bank ISBT Product Blood Type 6200 [facility] Blood Bank Unit Type and Rh Positive [facility] Component Leukocyte Reduced Red Cell [facility] Crossmatch Result COMPATIBLE [facility] Dispense Status Blood Bank TRANSFUSED [facility] Product Code Blood Bank [id number] [facility] Transfusion Status OK TO TRANSFUSE B ON [facility] Unit Divison 0 [facility] TYPE AND SCREENon 11-28-2023 ABO/Rh Positive [facility] Arm Band Number [id number] [facility] Blood Bank Blood Product Expiration Date [facility] Blood Bank Sample Expiration 11/28/2023,2359 [facility] Blood product unit ID (Dose) [#] [id number] [facility] Blood product unit ID (Dose) [#] [id number] [facility] Blood product unit ID (Dose) [#] [id number] [facility] Unit Issue Date/Time [facility] Unit Issue Date/Time [facility] Unit Issue Date/Time [facility] Type + Screenon 11-28-2023 Type + Screen Sample Expiration 11/28/2023,2359 Arm Band Number [id number] ABO/Rh(D) A POSITIVE Antibody Screen NEGATIVE Unit Number [id number] Blood Component Type Leukocyte Reduced Red Cell Unit Division 00 Status of Unit TRANSFUSED Transfusion Status OK TO TRANSFUSE Crossmatch Result COMPATIBLE Unit Number [id number] Blood Component Type Leukocyte Reduced Red Cell Unit Division 00 Status of Unit TRANSFUSED Transfusion Status OK TO TRANSFUSE Crossmatch Result COMPATIBLE Unit Number [id number] Blood Component Type Leukocyte Reduced Red Cell Unit Division 00 Status of Unit TRANSFUSED Transfusion Status OK TO TRANSFUSE Crossmatch Result COMPATIBLE Normal [facility] Comment on above: Performed By: #### H H #### [employer] [address] [place] [address] Fitting Room Checker: Dwain Aldana MD Basic Metab w/rfx MGon 11-26 Anion gap [Moles/Vol] 7 mmol/L Low 9-16 [facility] Comment on above: Performed By: #### B MPX, MG, CDP #### [facility] [employer] [address] [place] [address] Fitting Room Checker: Dwain Aldana MD Calcium [Mass/Vol] 6.3 mg/dL Low 8.6-10.4 [facility] Comment on above: Performed By: #### B MPX, MG, CDP #### [facility] [employer] [address] [place] [address] Fitting Room Checker: Dwain Aldana MD Chloride [Moles/Vol] 105 mmol/L Normal 98-107 [facility] Comment on above: Performed By: #### B MPX, MG, CDP #### [facility] [employer] [address] [place] [address] Fitting Room Checker: Dwain Aldana MD CO2 [Moles/Vol] 22 mmol/L Normal 20-31 [facility] Comment on above: Performed By: #### B MPX, MG, CDP #### [facility] [address] [place] [address] Fitting Room Checker: Dwain Aldana MD Creatinine [Mass/Vol] 0.4 mg/dL Low 0.50-0.90 [facility] Comment on above: Performed By: #### B MPX, MG, CDP #### [facility] [employer] [address] [place] [address] Fitting Room Checker: Dwain Aldana MD GFR/1.73 sq M.predicted among non-blacks MDRD (S/P/Bld) [Vol rate/Area] mL/min/{1.73_m2} Normal >60 [facility] Comment on above: Result Comment: These results [...] B MPX, MG, CDP #### [facility] [address] [place] [address] Fitting Room Checker: Dwain Aldana MD Glucose [Mass/Vol] 83 mg/dL Normal 74-99 [facility] Comment on above: Performed By: #### B MPX, MG, CDP #### [facility] [address] [place] [address] Fitting Room Checker: Dwain Aldana MD Potassium [Moles/Vol] 3.4 mmol/L Low 3.7-5.3 [facility] Comment on above: Performed By: #### B MPX, MG, CDP #### [facility] [address] [place] [address] Fitting Room Checker: Dwain Aldana MD Sodium [Moles/Vol] 134 mmol/L Low 136-145 [facility] Comment on above: Performed By: #### B MPX, MG, CDP #### [facility] [address] [place] [address] Fitting Room Checker: Dwain Aldana MD Urea nitrogen [Mass/Vol] 7 mg/dL Low 8-23 [facility] Comment on above: Performed By: #### B MPX, MG, CDP #### [facility] [address] [place] [address] Fitting Room Checker: Dwain Aldana MD Basic Metabolic Panel w/ Ref merlene to MGon 11-27-2023 Anion gap [Moles/Vol] 7 mmol/L Low 9 - 16 mmol/L [facility] Calcium [Mass/Vol] 6.3 mg/dL Low 8.6 - 10. 4 mg/dL [facility] Chloride [Moles/Vol] 105 mmol/L 98 - 10 7 mmol/L [facility] CO2 [Moles/Vol] 22 mmol/L 20 - 31 mmol/L [facility] Creatinine [Mass/Vol] 0.4 mg/dL Low 0.50 - 0.90 mg/dL [facility] Est, [place] Rate - PINF [facility] Comment on above: These results [...] [Mass/Vol] 83 mg/dL 74 - 99 mg/dL [facility] Interpretation and review of laboratory results Abnormal [facility] Potassium [Moles/Vol] 3.4 mmol/L Low 3.7 - 5.3 mmol/L [facility] Sodium [Moles/Vol] 134 mmol/L Low 136 - 145 mmol/L [facility] Urea nitrogen [Mass/Vol] 7 mg/dL Low 8 - 23 mg/dL [facility] Hemoglobin and Hematocriton 11-27-2023 Hematocrit (Bld) [Volume fraction] 17.9 % Low 36.3 - 47.1 % [facility] Hemoglobin (Bld) [Mass/Vol] 5.7 g/dL Critically low 11.9 - 15.1 g/dL [facility] Interpretation and review of laboratory results Abnormal [facility] Hematocrit (Bld) [Volume fraction] 18.0 % Low 36.3 - 47.1 % [facility] Hemoglobin (Bld) [Mass/Vol] 5.9 g/dL Critically low 11.9 - 15.1 g/dL [facility] Interpretation and review of laboratory results Abnormal [facility] Hematocrit (Bld) [Volume fraction] 23.0 % Low 36.3 - 47.1 % [facility] Hemoglobin (Bld) [Mass/Vol] 7.2 g/dL Low 11.9 - 15.1 g/dL [facility] Interpretation and review of laboratory results Abnormal [facility] Hematocrit (Bld) [Volume fraction] 22.0 % Low 36.3 - 47.1 % [facility] Hemoglobin (Bld) [Mass/Vol] 7.2 g/dL Low 11.9 - 15.1 g/dL [facility] Interpretation and review of laboratory results Abnormal [facility] Hgb/Hcton 11-27-2023 Hematocrit (Bld) [Volume fraction] 17.9 % Low 36.3-47.1 [facility] Comment on above: Performed By: #### B MPX, MG, CDP #### [employer] [address] [place] [address] Fitting Room Checker: Dwain Aldana MD Hemoglobin (Bld) [Mass/Vol] 5.7 g/dL Critically low 11.9-15.1 [facility] Comment on above: Performed By: #### B MPX, MG, CDP #### [employer] [address] [place] [address] Fitting Room Checker: Dwain Aldana MD Hematocrit (Bld) [Volume fraction] 18.0 % Low 36.3-47.1 [facility] Comment on above: Performed By: #### H H #### [employer] [address] [place] [address] Fitting Room Checker: Dwain Aldana MD Hemoglobin (Bld) [Mass/Vol] 5.9 g/dL Critically low 11.9-15.1 [facility] Comment on above: Performed By: #### H H #### [employer] [address] [place] [address] Fitting Room Checker: Dwain Aldana MD Hematocrit (Bld) [Volume fraction] 23.0 % Low 36.3-47.1 [facility] Comment on above: Performed By: #### H H #### [address] [address] Fitting Room Checker: Dwain Aldana MD Hemoglobin (Bld) [Mass/Vol] 7.2 g/dL Low 11.9-15.1 [facility] Comment on above: Performed By: #### H H #### [address] [address] Fitting Room Checker: Dwain Aldana MD Hematocrit (Bld) [Volume fraction] 22.0 % Low 36.3-47.1 [facility] Comment on above: Performed By: #### H H #### [address] [address] Fitting Room Checker: Dwain Aldana MD Hemoglobin (Bld) [Mass/Vol] 7.2 g/dL Low 11.9-15.1 [facility] Comment on above: Performed By: #### H H #### [address] [address] Fitting Room Checker: Dwain Aldana MD Hematocrit (Bld) [Volume fraction] 24.3 % Low 36.3-47.1 [facility] Comment on above: Performed By: #### H H #### [address] [address] Fitting Room Checker: Dwain Aldana MD Hemoglobin (Bld) [Mass/Vol] 7.7 g/dL Low 11.9-15.1 [facility] Comment on above: Performed By: #### H H #### [address] [address] Fitting Room Checker: Dwain Aldana MD Magnesiumon 11-27-2023 Magnesium [Mass/Vol] 1.9 mg/dL Normal 1.6-2.4 [facility] Comment on above: Performed By: #### B MPX, MG, CDP #### [employer] [address] [phone] Fitting Room Checker: Dwain Aldana MD Magnesium [Mass/Vol] 1.9 mg/dL 1.6 - 2 .4 mg/dL [facility] No Panel Informationon 11-26 Radiology Study observation (narrative) [facility] [employer] Portable XR Chest AP single viewon 11-27-2023 [...] consistent with pneumonia. Trace left basilar effusion. [facility] [employer] Portable XR Chest AP single viewOrdered By: Ion Leon on 11-27-2023 [facility] [employer] Work Phone: XR CHEST PORTABLEon 11-27-19 24 [...] Ion Leon MD 11/27/23 Final result Normal [facility] Basic Metab w/rfx MGon 11-25 Anion gap [Moles/Vol] 11 mmol/L Normal 9-16 [facility] Comment on above: Performed By: #### B MPX MG, CDP #### [facility] [employer] [address] [place] [address] Fitting Room Checker: Dwain Aldana MD Calcium [Mass/Vol] 6.3 mg/dL Low 8.6-10.4 [facility] Comment on above: Performed By: #### B MPX, MG, CDP #### [facility] [employer] [address] [place] [address] Fitting Room Checker: Dwain Aldana MD Chloride [Moles/Vol] 112 mmol/L High 98-107 [facility] Comment on above: Performed By: #### B MPX, MG, CDP #### [facility] [employer] [address] [place] [address] Fitting Room Checker: Dwain Aldana MD CO2 [Moles/Vol] 17 mmol/L Low 20-31 [facility] Comment on above: Performed By: #### B MPX, MG, CDP #### [facility] [employer] [employer] [address] [place] [address] [phone] Fitting Room Checker: Dwain Aldana MD Creatinine [Mass/Vol] 0.3 mg/dL Low 0.50-0.90 [facility] Comment on above: Performed By: #### B MPX, MG, CDP #### [facility] [employer] [address] [place] [address] 30161 Fitting Room Checker: Dwain Aldana MD GFR/1.73 sq M.predicted among non-blacks MDRD (S/P/Bld) [Vol rate/Area] mL/min/{1.73_m2} Normal >60 [facility] Comment on above: Result Comment: These results [...] B MPX, MG, CDP #### [facility] [employer] [address] [place] [address] 12675 Fitting Room Checker: Dwain Aldana MD Glucose [Mass/Vol] 82 mg/dL Normal 74-99 [facility] Comment on above: Performed By: #### B MPX, MG, CDP #### [facility] [employer] [address] [place] [address] [phone] Fitting Room Checker: Dwain Aldana MD Potassium [Moles/Vol] 3.4 mmol/L Low 3.7-5.3 [facility] Comment on above: Performed By: #### B MPX, MG, CDP #### [facility] [address] [place] [address] 70080 Fitting Room Checker: Dwain Aldana MD Sodium [Moles/Vol] 140 mmol/L Normal 136-145 [facility] Comment on above: Performed By: #### B MPX, MG, CDP #### [facility] [address] [place] [address] [phone] Fitting Room Checker: Dwain Aldana MD Urea nitrogen [Mass/Vol] 9 mg/dL Normal 8-23 [facility] Comment on above: Performed By: #### B MPX, MG, CDP #### [facility] [address] [place] [address] Fitting Room Checker: Dwain Aldana MD Basic Metabolic Panel w/ Ref merlene to MGon 11-26-2023 Anion gap [Moles/Vol] 11 mmol/L 9 - 16 mmol/L [facility] Calcium [Mass/Vol] 6.3 mg/dL Low 8.6 - 10. 4 mg/dL [facility] Chloride [Moles/Vol] 112 mmol/L High 98 - 10 7 mmol/L [facility] CO2 [Moles/Vol] 17 mmol/L Low 20 - 31 mmol/L [facility] Creatinine [Mass/Vol] 0.3 mg/dL Low 0.50 - 0.90 mg/dL [facility] [place] Rate - PIN[place] [facility] Comment on above: These results [...] [Mass/Vol] 82 mg/dL 74 - 99 mg/dL [facility] Interpretation and review of laboratory results Abnormal [facility] Potassium [Moles/Vol] 3.4 mmol/L Low 3.7 - 5.3 mmol/L [facility] Sodium [Moles/Vol] 140 mmol/L 136 - 145 mmol/L [facility] Urea nitrogen [Mass/Vol] 9 mg/dL 8 - 23 mg/dL [facility] Hemoglobin and Hematocriton 11-26-2023 Hematocrit (Bld) [Volume fraction] 24.3 % Low 36.3 - 47.1 % [facility] Hemoglobin (Bld) [Mass/Vol] 7.7 g/dL Low 11.9 - 15.1 g/dL [facility] Interpretation and review of laboratory results Abnormal [facility] Hematocrit (Bld) [Volume fraction] 24.6 % Low 36.3 - 47.1 % [facility] Hemoglobin (Bld) [Mass/Vol] 8.1 g/dL Low 11.9 - 15.1 g/dL [facility] Interpretation and review of laboratory results Abnormal [facility] Hematocrit (Bld) [Volume fraction] 26.7 % Low 36.3 - 47.1 % [facility] Hemoglobin (Bld) [Mass/Vol] 8.6 g/dL Low 11.9 - 15.1 g/dL [facility] Interpretation and review of laboratory results Abnormal [facility] Hematocrit (Bld) [Volume fraction] 26.3 % Low 36.3 - 47.1 % [facility] Hemoglobin (Bld) [Mass/Vol] 8.1 g/dL Low 11.9 - 15.1 g/dL [facility] Interpretation and review of laboratory results Abnormal [facility] Hgb/Hcton 11-26-2023 Hematocrit (Bld) [Volume fraction] 24.6 % Low 36.3-47.1 [facility] Comment on above: Performed By: #### H H #### [employer] [address] [place] [address] Fitting Room Checker: Dwain Aldana MD Hemoglobin (Bld) [Mass/Vol] 8.1 g/dL Low 11.9-15.1 [facility] Comment on above: Performed By: #### H H #### [employer] [address] [place] [address] [phone] Fitting Room Checker: Dwain Aldana MD Hematocrit (Bld) [Volume fraction] 26.7 % Low 36.3-47.1 [facility] Comment on above: Performed By: #### T SHX, PRCAL #### [facility] [address] [place] [address] [phone] Fitting Room Checker: Dwain Aldana MD Hemoglobin (Bld) [Mass/Vol] 8.6 g/dL Low 11.9-15.1 [facility] Comment on above: Performed By: #### T SHX, PRCAL #### [facility] [address] [place] [address] 13319 Fitting Room Checker: Dwain Aldana MD Hematocrit (Bld) [Volume fraction] 26.3 % Low 36.3-47.1 [facility] Comment on above: Performed By: #### B MPX, MG, CDP #### [facility] [address] [place] [address] 38635 Fitting Room Checker: Dwain Aldana MD Hemoglobin (Bld) [Mass/Vol] 8.1 g/dL Low 11.9-15.1 [facility] Comment on above: Performed By: #### B MPX, MG, CDP #### [facility] [address] [place] [address] [phone] Fitting Room Checker: Dwain Aldana MD Hematocrit (Bld) [Volume fraction] 24.6 % Low 36.3-47.1 [facility] Comment on above: Performed By: #### B MPX, MG, CDP #### [facility] [address] [place] [address] [phone] Fitting Room Checker: Dwain Aldana MD Hemoglobin (Bld) [Mass/Vol] 8.5 g/dL Low 11.9-15.1 [facility] Comment on above: Performed By: #### B MPX, MG, CDP #### [facility] [address] [place] [address] [phone] Fitting Room Checker: Dwain Aldana MD Magnesiumon 11-26-2023 Magnesium [Mass/Vol] 1.5 mg/dL Low 1.6-2.4 [facility] Comment on above: Performed By: #### B MPX, MG, CDP #### [facility] [address] [place] [address] [phone] Fitting Room Checker: Dwain Aldana MD Interpretation and review of laboratory results Abnormal [facility] Magnesium [Mass/Vol] 1.5 mg/dL Low 1.6 - 2 .4 mg/dL [facility] APTTon 11-25-2023 aPTT Coag (Bld) [Time] 25.5 s Normal 23.0-36.5 [facility] Comment on above: Result Comment: IV Heparin Therapy Range: 66.0-92.0 sec Performed By: #### B MPX, MG, CDP #### [facility] [employer] [address] [place] [address] [phone] Fitting Room Checker: Dwain Aldana MD aPTT Coag (Bld) [Time] 25.5 s [facility] Comment on above: IV Heparin Therapy Range: 66.0-92.0 sec BLOOD BANK SPECIMENon 2023 [facility] Basic Metab w/rfx MGon 11-24 Anion gap [Moles/Vol] 7 mmol/L Low 9-16 [facility] Comment on above: Performed By: #### B MPX, MG, CDP #### [facility] [employer] [address] [place] [address] Fitting Room Checker: Dwain Aldana MD Calcium [Mass/Vol] 6.6 mg/dL Low 8.6-10.4 [facility] Comment on above: Performed By: #### B MPX, MG, CDP #### [facility] [address] [place] [address] Fitting Room Checker: Dwain Aldana MD Chloride [Moles/Vol] 108 mmol/L High 98-107 [facility] Comment on above: Performed By: #### B MPX, MG, CDP #### [facility] [address] [place] [address] [phone] Fitting Room Checker: Dwain Aldana MD CO2 [Moles/Vol] 23 mmol/L Normal 20-31 [facility] Comment on above: Performed By: #### B MPX, MG, CDP #### [facility] [address] [place] [address] [phone] Fitting Room Checker: Dwain Aldana MD Creatinine [Mass/Vol] 0.4 mg/dL Low 0.50-0.90 [facility] Comment on above: Performed By: #### B MPX, MG, CDP #### [facility] [employer] [address] [place] [address] [phone] Fitting Room Checker: Dwain Aldana MD GFR/1.73 sq M.predicted among non-blacks MDRD (S/P/Bld) [Vol rate/Area] mL/min/{1.73_m2} Normal >60 [facility] Comment on above: Result Comment: These results [...] B MPX, MG, CDP #### [facility] [employer] [address] [place] [address] [phone] Fitting Room Checker: Dwain Aldana MD Glucose [Mass/Vol] 81 mg/dL Normal 74-99 [facility] Comment on above: Performed By: #### B MPX, MG, CDP #### [facility] [employer] [address] [place] [address] [phone] Fitting Room Checker: Dwain Aldana MD Potassium [Moles/Vol] 3.6 mmol/L Low 3.7-5.3 [facility] Comment on above: Performed By: #### B MPX, MG, CDP #### [facility] [address] [place] [address] [phone] Fitting Room Checker: Dwain Aldana MD Sodium [Moles/Vol] 138 mmol/L Normal 136-145 [facility] Comment on above: Performed By: #### B MPX, MG, CDP #### [facility] [address], [place] [phone] Fitting Room Checker: Dwain Aldana MD Urea nitrogen [Mass/Vol] 13 mg/dL Normal 8-23 [facility] Comment on above: Performed By: #### B MPX, MG, CDP #### [facility] [address], [place] [phone] Fitting Room Checker: Dwain Aldana MD Basic Metabolic Panel w/ Ref merlene to on 11-25-2023 Anion gap [Moles/Vol] 7 mmol/L Low 9 - 16 mmol/L [facility] [employer] Calcium [Mass/Vol] 6.6 mg/dL Low 8.6 - 10. 4 mg/dL [facility] [employer] Chloride [Moles/Vol] 108 mmol/L High 98 - 10 7 mmol/L [facility] [employer] CO2 [Moles/Vol] 23 mmol/L 20 - 31 mmol/L [facility] Creatinine [Mass/Vol] 0.4 mg/dL Low 0.50 - 0.90 mg/dL [facility] Est, [place] [employer] Rate - PINF [facility] [employer] Comment on above: These results are not [...] [Mass/Vol] 81 mg/dL 74 - 99 mg/dL [facility] Interpretation and review of laboratory results Abnormal [facility] Potassium [Moles/Vol] 3.6 mmol/L Low 3.7 - 5.3 mmol/L [facility] Sodium [Moles/Vol] 138 mmol/L 136 - 145 mmol/L [facility] Urea nitrogen [Mass/Vol] 13 mg/dL 8 - 23 mg/dL [facility] CBC with Auto Differentialon 11-25-2023 Basophils (Bld) [#/Vol] 0.03 10*3/uL [facility] Basophils/100 WBC (Bld) 0 % 0 - 2 % [facility] Eosinophils (Bld) [#/Vol] 0.05 10*3/uL [facility] Eosinophils/100 WBC (Bld) 1 % 1 - 4 % [facility] Erythrocyte distribution width (RBC) [Ratio] 19.9 % High 11.8 - 14.4 % [facility] Hematocrit (Bld) [Volume fraction] 19.9 % Low 36.3 - 47.1 % [facility] Hemoglobin (Bld) [Mass/Vol] 5.8 g/dL Critically low 11.9 - 15.1 g/dL [facility] Immature granulocytes (Bld) [#/Vol] 0.06 10*3/uL [facility] Immature granulocytes/100 WBC (Bld) 1 % High 0 [facility] Interpretation and review of laboratory results Abnormal [facility] Lymphocytes/100 WBC (Bld) 18 % Low 24 - 43 % [facility] Lymphocytes/100 WBC (Bld) 1.67 % [facility] MCH (RBC) [Entitic mass] 29.7 pg 25.2 - 33.5 pg [facility] MCHC (RBC) [Mass/Vol] 29.1 g/dL 28.4 - 34.8 g/dL [facility] MCV (RBC) [Entitic vol] 102.1 fL 82.6 - 102.9 fL [facility] Monocytes/100 WBC (Bld) 8 % 3 - 12 % [facility] Monocytes/100 WBC (Bld) 0.72 % [facility] Neutrophils/100 WBC (Bld) 73 % High 36 - 65 % [facility] Nucleated RBC/100 WBC (Bld) [Ratio] 0.0 % 0.0 per 100 WBC [facility] Platelet mean volume (Bld) [Entitic vol] 11.5 fL 8.1 - 13.5 fL [facility] Platelets (Bld) [#/Vol] 186 10*3/uL [facility] RBC (Bld) [#/Vol] 1.95 10*6/uL Low 3.95 - 5.11 m/uL [facility] RBC (Bld) [#/Vol] ANISOCYTOSIS PRESENT [facility] Segmented neutrophils/100 WBC (Bld) 6.93 % [facility] WBC other (Bld) [#/Vol] 9.5 [facility] CBC with Diffon 11-25-2023 Abs. Basophil 0.03 k/uL Normal 0.00-0.20 [facility] Comment on above: Performed By: #### B MPX, MG, CDP #### [facility] [address] [place] [address] Fitting Room Checker: Dwain Aldana MD Abs.Imm.Granulocyte 0.06 k/uL Normal 0.00-0.30 [facility] Comment on above: Performed By: #### B MPX, MG, CDP #### [facility] [address] [place] [address] Fitting Room Checker: Dwain Aldana MD Abs.Neutrophil (Seg) 6.93 k/uL Normal 1.50-8.10 [facility] Comment on above: Performed By: #### B MPX, MG, CDP #### [facility] [address] [place] [address] Fitting Room Checker: Dwain Aldana MD Basophils/100 WBC (Bld) 0 % Normal 0-2 [facility] Comment on above: Performed By: #### B MPX, MG, CDP #### [facility] [address] [place] [address] Fitting Room Checker: Dwain Aldana MD Eosinophils (Bld) [#/Vol] 0.05 10*3/uL Normal 0.00-0.44 [facility] Comment on above: Performed By: #### B MPX, MG, CDP #### [address] [address] Fitting Room Checker: Dwain Aldana MD Eosinophils/100 WBC (Bld) 1 % Normal 1-4 [facility] Comment on above: Performed By: #### B MPX, MG, CDP #### [facility] [employer] [address] [place] [address] [phone] Fitting Room Checker: Dwain Aldana MD Erythrocyte distribution width (RBC) [Ratio] 19.9 % High 11.8-14.4 [facility] Comment on above: Performed By: #### B MPX, MG, CDP #### [facility] [employer] [address] [place] [address] [phone] Fitting Room Checker: Dwain Aldana MD Hematocrit (Bld) [Volume fraction] 19.9 % Low 36.3-47.1 [facility] Comment on above: Performed By: #### B MPX, MG, CDP #### [facility] [employer] [address] [place] [address] [phone] Fitting Room Checker: Dwain Aldana MD Hemoglobin (Bld) [Mass/Vol] 5.8 g/dL Critically low 11.9-15.1 [facility] Comment on above: Performed By: #### B MPX, MG, CDP #### [facility] [employer] [address] [place] [address] 48402 Fitting Room Checker: Dwain Aldana MD Immature granulocytes/100 WBC (Bld) 1 % High 0 [facility] Comment on above: Performed By: #### B MPX, MG, CDP #### [facility] [employer] [address] [place] [address] 23031 Fitting Room Checker: Dwain Aldana MD Lymphocytes (Bld) [#/Vol] 1.67 10*3/uL Normal 1.10-3.70 [facility] Comment on above: Performed By: #### B MPX, MG, CDP #### [facility] [employer] [address] [place] [address] [phone] Fitting Room Checker: Dwain Aldana MD Lymphocytes/100 WBC (Bld) 18 % Low 24-43 [facility] Comment on above: Performed By: #### B MPX, MG, CDP #### [facility] [address] [place] [address] [phone] Fitting Room Checker: Dwain Aldana MD MCH (RBC) [Entitic mass] 29.7 pg Normal 25.2-33.5 [facility] Comment on above: Performed By: #### B MPX, MG, CDP #### [facility] [address] [place] [address] [phone] Fitting Room Checker: Dwain Aldana MD MCHC (RBC) [Mass/Vol] 29.1 g/dL Normal 28.4-34.8 [facility] Comment on above: Performed By: #### B MPX, MG, CDP #### [facility] [employer] [address] [place] [address] [phone] Fitting Room Checker: Dwain Aldana MD MCV (RBC) [Entitic vol] 102.1 fL Normal 82.6-102.9 [facility] Comment on above: Performed By: #### B MPX, MG, CDP #### [facility] [employer] [address] [place] [address] [phone] Fitting Room Checker: Dwain Aldana MD Monocytes (Bld) [#/Vol] 0.72 10*3/uL Normal 0.10-1.20 [facility] Comment on above: Performed By: #### B MPX, MG, CDP #### [facility] [employer] [address] [place] [address] 55323 Fitting Room Checker: Dwain Aldana MD Monocytes/100 WBC (Bld) 8 % Normal 3-12 [facility] Comment on above: Performed By: #### B MPX, MG, CDP #### [facility] [employer] [address] [place] [address] 04245 Fitting Room Checker: Dwain Aldana MD Neutrophil (Seg) 73 % High 36-65 [facility] Comment on above: Performed By: #### B MPX, MG, CDP #### [facility] [employer] [address] [place] [address] [phone] Fitting Room Checker: Dwain Aldana MD NRBC Automated 0.0 per 100 WBC Normal 0.0 [facility] Comment on above: Performed By: #### B MPX, MG, CDP #### [facility] [employer] [address] [place] [address] [phone] Fitting Room Checker: Dwain Aldana MD Platelet mean volume (Bld) [Entitic vol] 11.5 fL Normal 8.1-13.5 [facility] Comment on above: Performed By: #### B MPX, MG, CDP #### [address] [phone] Fitting Room Checker: Dwain Aldana MD Platelets (Bld) [#/Vol] 186 10*3/uL Normal 138-453 [facility] Comment on above: Performed By: #### B MPX, MG, CDP #### [address] [address] Fitting Room Checker: Dwain Aldana MD RBC (Bld) [#/Vol] 1.95 10*6/uL Low 3.95-5.11 [facility] Comment on above: Performed By: #### B MPX, MG, CDP #### [facility] [employer] [address] [place] [address] 29577 Fitting Room Checker: Dwain Aldana MD RBC morphology finding Nom (Bld) ANISOCYTOSIS PRESENT Normal [facility] Comment on above: Performed By: #### B MPX, MG, CDP #### [facility] [employer] [address] [place] [address] [phone] Fitting Room Checker: Dwain Aldana MD WBC (Bld) [#/Vol] 9.5 10*3/uL Normal 3.5-11.3 [facility] Comment on above: Performed By: #### B MPX, MG, CDP #### [employer] [facility] [place] [address] Fitting Room Checker: Dwain Aldana MD CTA ABDOMEN PELVIS W [...] Smith Hahn MD 11/25/23 Final result Normal [facility] CTA Abdominal vessels and Pe lvis vessels [...] visualized spine . No acute bony abnormalities. [facility] RIS CONSOLIDATED Smith Hahn MD - [...] fat containing umbilical hernia. 7. Diffuse anasarca. [facility] Radiology Study observation (narrative) [facility] CTA Abdominal vessels and Pe lvis vessels WO and W contrast IVOrdered By: Smith Hahn on 11-25-2023 [facility] Work Phone: Hemoglobin and Hematocriton 11-25-2023 Hematocrit (Bld) [Volume fraction] 24.6 % Low 36.3 - 47.1 % [facility] Hemoglobin (Bld) [Mass/Vol] 8.5 g/dL Low 11.9 - 15.1 g/dL [facility] Interpretation and review of laboratory results Abnormal [facility] Hematocrit (Bld) [Volume fraction] 28.6 % Low 36.3 - 47.1 % [facility] Hemoglobin (Bld) [Mass/Vol] 9.2 g/dL Low 11.9 - 15.1 g/dL [facility] Interpretation and review of laboratory results Abnormal [facility] Hematocrit (Bld) [Volume fraction] 20.3 % Low 36.3 - 47.1 % [facility] Hemoglobin (Bld) [Mass/Vol] 6.6 g/dL Critically low 11.9 - 15.1 g/dL [facility] Interpretation and review of laboratory results Abnormal [facility] Hgb/Hcton 11-25-2023 Hematocrit (Bld) [Volume fraction] 28.6 % Low 36.3-47.1 [facility] Comment on above: Performed By: #### B MPX, MG, CDP #### [employer] [address] [place] [address] [phone] Fitting Room Checker: Dwain Aldana MD Hemoglobin (Bld) [Mass/Vol] 9.2 g/dL Low 11.9-15.1 [facility] Comment on above: Performed By: #### B MPX, MG, CDP #### [facility] [employer] [address] [place] [address] [phone] Fitting Room Checker: Dwain Aldana MD Hematocrit (Bld) [Volume fraction] 30.2 % Low 36.3-47.1 [facility] Comment on above: Performed By: #### B MPX, MG, CDP #### [facility] [address] [place] [address] 62357 Fitting Room Checker: Dwain Aldana MD Hemoglobin (Bld) [Mass/Vol] 9.0 g/dL Low 11.9-15.1 [facility] Comment on above: Performed By: #### B MPX, MG, CDP #### [facility] [address] [place] [address] 55942 Fitting Room Checker: Dwain Aldana MD Hematocrit (Bld) [Volume fraction] 20.3 % Low 36.3-47.1 [facility] Comment on above: Performed By: #### B MPX, MG, CDP #### [facility] [address] [place] [address] 89453 Fitting Room Checker: Dwain Aldana MD Hemoglobin (Bld) [Mass/Vol] 6.6 g/dL Critically low 11.9-15.1 [facility] Comment on above: Performed By: #### B MPX, MG, CDP #### [facility] [address] [place] [address] 35230 Fitting Room Checker: Dwain Aldana MD Iron Binding Cap.on 11-25-19 24 % Fe Saturation 39 % Normal 20-55 [facility] Comment on above: Performed By: #### B MPX, MG, CDP #### [employer] [address] [place] [address] Fitting Room Checker: Dwain Aldana MD Iron [Mass/Vol] 80 ug/dL Normal 37-145 [facility] Comment on above: Performed By: #### B MPX, MG, CDP #### [facility] [address] [place] [address] Fitting Room Checker: Dwain Aldana MD Total Fe Binding Cap 205 ug/dL Low 250-450 [facility] Comment on above: Performed By: #### B MPX, MG, CDP #### [employer] [address] [place] [address] Fitting Room Checker: Dwain Aldana MD Unbound Fe Bind Cap 125 ug/dL Normal 112-347 [facility] Comment on above: Performed By: #### B MPX, MG, CDP #### [employer] [address] [place] [address] 32075 Fitting Room Checker: Dwain Aldana MD Iron and TIBCon 11-25-2023 Interpretation and review of laboratory results Abnormal [facility] Iron [Mass/Vol] 80 ug/dL 37 - 145 ug/dL [facility] Iron binding capacity [Mass/Vol] 205 ug/dL Low 250 - 450 ug/dL [facility] Iron saturation [Mass fraction] 39 % 20 - 55 % [facility] UIBC 125 ug/dL 112 - 347 ug/dL [facility] Lactate, Sepsison 11-25-2023 Lactic Acid,Sep Wbld 0.9 mmol/L Normal 0.5-1.9 [facility] Comment on above: Performed By: #### H H #### [employer] [address] [place] [address] 09972 Fitting Room Checker: Dwain Aldana MD Lactic Acid, Sepsis, Whole Blood 0.9 mmol/L 0.5 - 1.9 mmol/L [facility] Lactic Acid,Sep Wbld 0.6 mmol/L Normal 0.5-1.9 [facility] Comment on above: Performed By: #### T SHX, PRCAL #### [employer] [address] [place] [address] Fitting Room Checker: Dwain Aldana MD Lactic Acid, Sepsis, Whole Blood 0.6 mmol/L 0.5 - 1.9 mmol/L [facility] Lactic Acid,Sep Wbld 0.7 mmol/L Normal 0.5-1.9 [facility] Comment on above: Performed By: #### B MPX, MG, CDP #### [employer] [address] [place] [address] [phone] Fitting Room Checker: Dwain Aldana MD Lactic Acid, Sepsis, Whole Blood 0.7 mmol/L 0.5 - 1.9 mmol/L [facility] No Panel Informationon 11-24 [facility] PTon 11-25-2023 INR Coag (PPP) [Relative time] 1.2 {INR} Normal [facility] Comment on above: Result Comment: Therapeutic Range: Moderate Anticoagulant Intensity: INR = 2.0-3.0 High Anticoagulant Intensity: INR = 2.5-3.5 Performed By: #### B MPX MG, CDP #### [employer] [address] [place] [phone] Fitting Room Checker: Dwain Aldana MD PT Coag (PPP) [Time] 15.5 s High 11.7-14.9 [facility] Comment on above: Performed By: #### B MPX, MG, CDP #### [employer] [address] [place] [phone] Fitting Room Checker: Dwain Aldana MD Portable XR Chest AP [...] pleural effusions. Bones: No acute osseous abnormality. [facility] Keaton Saldaña MD - 11/25/2023 EXAMINATION: ONE [...] than left pleural effusions and bibasilar atelectasis. [facility] Radiology Study observation (narrative) [facility] Portable XR Chest AP single viewOrdered By: Keaton Montilla on 11-25-2023 [facility] Work Phone: [facility] 11-25-2023 INR Coag (PPP) [Relative time] 1.2 {INR} [facility] Comment on above: Therapeutic Range: Moderate Anticoagulant Intensity: INR = 2.0-3.0 High Anticoagulant Intensity: INR = 2.5-3.5 Interpretation and review of laboratory results Abnormal Univa UD PT Coag (PPP) [Time] 15.5 s High [facility] XR CHEST PORTABLEon 11-25-19 24 XR CHEST [...] Keaton Montilla MD 11/25/23 Final result Normal [facility] Erythrocyte distribution wid th Auto (RBC) [Ratio]Ordered By: Frantz Nieves on 11-21-2023 Erythrocyte distribution width (RBC) [Ratio] 16.3 % 11.9-15.3 [facility] Ferritinon 11-21-2023 Ferritin [Mass/Vol] 40.6 ng/mL Normal 11.0-306.8 [facility] Comment on above: Result Comment: PERF ORMED BY: [place] [address] PATHOLOGIST CAR DELIVERER EVY GARCIA M.D. Performed By: #### C JENNA, MG #### [facility] [address] [place] [address] Ferritin [Mass/volume] in Se rum or PlasmaOrdered By: Jaspal Whalen on 11-21-2023 Ferritin [Mass/Vol] 40.6 ng/mL 11.0-306.8 [facility] H Pylori Stool Ag, EIAon H Pylori Stool Ag, EIA Negative Normal Negative [facility] Comment on above: Order Comment: SOURC E OF SPECIMEN: stool Result Comment: Perf ormed at: - [facility] [address] [id number] Fitting Room Checker: Jonny Guzman PhD, Phone: [phone] PERFORMED BY: [place] [address] PATHOLOGIST CAR DELIVERER EVY GARCIA M.D. Performed By: #### C BCNO, MG #### [facility] [address] [place], [place] [id number] [facility] Hematocrit Auto (Bld) [Volum e fraction]Ordered By: Frantz Nieves on 11-21-2023 Hematocrit (Bld) [Volume fraction] 27.4 % 34.0-46.4 [facility] Hemoglobin [Mass/volume] in BloodOrdered By: Frantz Nieves on 11-21-2023 Hemoglobin (Bld) [Mass/Vol] 9.2 g/dL 11.8-15.4 [facility] Hemogram CBC Without Diffon 11-21-2023 Erythrocyte distribution width (RBC) [Ratio] 16.3 % High 11.9-15.3 [facility] Comment on above: Performed By: #### C BCNO #### [address] Hematocrit (Bld) [Volume fraction] 27.4 % Low 34.0-46.4 [facility] Comment on above: Performed By: #### C BCNO #### [address] Hemoglobin (Bld) [Mass/Vol] 9.2 g/dL Low 11.8-15.4 [facility] Comment on above: Performed By: #### C BCNO #### [address] MCH (RBC) [Entitic mass] 31.3 pg Normal 24.7-34.3 [facility] Comment on above: Performed By: #### C BCNO #### [address] MCV (RBC) [Entitic vol] 93.2 fL Normal 80-100 [facility] Comment on above: Performed By: #### C BCNO #### [address] Mean Corpuscular HGB Conc 33.6 g/dL Normal 32.0-35.0 [facility] Comment on above: Performed By: #### C BCNO #### [address] Platelet mean volume (Bld) [Entitic vol] 7.7 fL Normal 6.3-10.7 [facility] Comment on above: Result Comment: PERF ORMED BY: [place] [address] PATHOLOGIST CAR DELIVERER JIANLAN SUN M.D. Performed By: #### C BCNO #### [facility] [address] [place] [address] [place] Platelets (Bld) [#/Vol] 377 10*3/uL Normal 150-450 [facility] Comment on above: Performed By: #### C BCNO #### [facility] [address] [place] [id number] [facility] RBC (Bld) [#/Vol] 2.94 10*6/uL Low 3.60-5.00 [facility] Comment on above: Performed By: #### C BCNO #### [facility] [address] [place] [address] [place] WBC (Bld) [#/Vol] 8.8 10*3/uL Normal 3.8-11.6 [facility] Comment on above: Performed By: #### C BCNO #### [address] Iron [Mass/volume] in Serum or PlasmaOrdered By: Jaspal Whalen on 11-21-2023 Iron [Mass/Vol] 20 ug/dL 50-212 [facility] Iron and TIBC Profileon 10-26 % Iron Saturation 6.0 % Low 20-50 [facility] Comment on above: Performed By: #### C BCNO, MG #### [place] [id number] [facility] Iron [Mass/Vol] 20 ug/dL Low 50-212 [facility] Comment on above: Performed By: #### C BCNO, MG #### [place] [id number] [facility] Total Iron Binding Capacity 333 ug/dL Normal 255-450 [facility] Comment on above: Performed By: #### C BCNO, MG #### [place] [id number] [facility] Transferrin [Mass/Vol] 238 mg/dL Normal 203-362 [facility] Comment on above: Performed By: #### C BCNO, MG #### [address] Iron binding capacity [Mass/ volume] in Serum or PlasmaOrdered By: Jaspal Whalen on 11-21-2023 Iron binding capacity [Mass/Vol] 333 ug/dL 255-450 [facility] Iron saturation [Mass Fracti on] in Serum or PlasmaOrdered By: Jaspal Whalen on 11-21-2023 Iron saturation [Mass fraction] 6.0 % 20-50 [facility] Leukocytes [#/volume] correc dalton for nucleated erythrocytes in Blood by Automated counOrdered By: Frantz Nieves on 11-21-2023 WBC corrected for nucl RBC Auto (Bld) [#/Vol] 8.8 10*3/uL 3.8-11.6 [facility] MCH Auto (RBC) [Entitic mass ]Ordered By: Frantz Nieves on 11-21-2023 MCH (RBC) [Entitic mass] 31.3 pg 24.7-34.3 [facility] MCHC Auto (RBC) [Mass/Vol]Or dered By: Frantz Nieves on 11-21-2023 MCHC (RBC) [Mass/Vol] 33.6 g/dL 32.0-35.0 [facility] MCV Auto (RBC) [Entitic vol] Ordered By: Frantz Nieves on 11-21-2023 MCV (RBC) [Entitic vol] 93.2 fL 80-100 [facility] Platelet mean volume Auto (B ld) [Entitic vol]Ordered By: Frantz Nieves on 11-21-2023 Platelet mean volume (Bld) [Entitic vol] 7.7 fL 6.3-10.7 [facility] Platelets Auto (Bld) [#/Vol] Ordered By: Frantz Nieves on 11-21-2023 Platelets (Bld) [#/Vol] 377 10*3/uL 150-450 [facility] RBC Auto (Bld) [#/Vol]Ordere d By: Frantz Nieves on 11-21-2023 RBC (Bld) [#/Vol] 2.94 10*6/uL 3.60-5.00 [facility] Transferrin [Mass/volume] in Serum or PlasmaOrdered By: Jaspal Whalen on 11-21-2023 Transferrin [Mass/Vol] 238 mg/dL 203-362 [facility] Hemoglobin and Hematocriton 11-20-2023 Hematocrit (Bld) [Volume fraction] 24.7 % Low 34.0-46.4 [facility] Comment on above: Result Comment: PERF ORMED BY: [place] [address] PATHOLOGIST CAR DELIVERER EVY GARCIA M.D. Performed By: #### H H #### [address] Hemoglobin (Bld) [Mass/Vol] 8.4 g/dL Low 11.8-15.4 [facility] Comment on above: Performed By: #### H H #### [address] Hemogram CBC Without Diffon 11-20-2023 Erythrocyte distribution width (RBC) [Ratio] 16.5 % High 11.9-15.3 [facility] Comment on above: Performed By: #### C BCNO, MG #### [address] Hematocrit (Bld) [Volume fraction] 23.7 % Low 34.0-46.4 [facility] Comment on above: Performed By: #### C BCNO, MG #### [address] Hemoglobin (Bld) [Mass/Vol] 8.1 g/dL Low 11.8-15.4 [facility] Comment on above: Performed By: #### C BCNO, MG #### [address] MCH (RBC) [Entitic mass] 31.7 pg Normal 24.7-34.3 [facility] Comment on above: Performed By: #### C BCNO, MG #### [address] MCV (RBC) [Entitic vol] 92.5 fL Normal 80-100 [facility] Comment on above: Performed By: #### C BCNO, MG #### [facility] [address] Mean Corpuscular HGB Conc 34.2 g/dL Normal 32.0-35.0 [facility] Comment on above: Performed By: #### C BCNO, MG #### [address] Platelet mean volume (Bld) [Entitic vol] 7.8 fL Normal 6.3-10.7 [facility] Comment on above: Result Comment: PERF ORMED BY: [place] [address] PATHOLOGIST CAR DELIVERER EVY GARCIA M.D. Performed By: #### C BCNO, MG #### [address] Platelets (Bld) [#/Vol] 279 10*3/uL Normal 150-450 [facility] Comment on above: Performed By: #### C BCNO, MG #### [address] RBC (Bld) [#/Vol] 2.56 10*6/uL Low 3.60-5.00 [facility] Comment on above: Performed By: #### C BCNO, MG #### [place] [address] [place] WBC (Bld) [#/Vol] 9.2 10*3/uL Normal 3.8-11.6 [facility] Comment on above: Performed By: #### C BCNO, MG #### [place] [address] [place] Magnesiumon 11-20-2023 Magnesium [Mass/Vol] 1.7 mg/dL Low 1.9-2.7 [facility] Comment on above: Result Comment: PERF ORMED BY: [place] [address] PATHOLOGIST CAR DELIVERER EVY GARCIA M.D. Performed By: #### C BCNO, MG #### [facility] [address] Magnesium [Mass/volume] in S staci or PlasmaOrdered By: Frantz Nieves on 11-20-2023 Magnesium [Mass/Vol] 1.7 mg/dL 1.9-2.7 [facility] Basic Metabolic Panelon 10-26 Anion gap [Moles/Vol] 6.7 mmol/L Normal 6.0-15.0 [facility] Comment on above: Performed By: #### C BCNO, MG #### [facility] [address] Calcium [Mass/Vol] 6.6 mg/dL Low 8.6-10.3 [facility] Comment on above: Performed By: #### C BCNO, MG #### [facility] [address] Chloride [Moles/Vol] 111 mmol/L High 98-107 [facility] Comment on above: Performed By: #### C BCNO, MG #### [facility] [address] CO2 [Moles/Vol] 24.0 mmol/L Normal 21.0-31.0 [facility] Comment on above: Performed By: #### C BCNO, MG #### [facility] [address] [place] [id number] [place] Creatinine [Mass/Vol] 0.40 mg/dL Low 0.60-1.20 [facility] Comment on above: Performed By: #### C BCNO, MG #### [facility] [address] [place] [address] [place] Creatinine Clr Calc Pharmacy 50.26 Normal [facility] Comment on above: Performed By: #### C BCNO, MG #### [facility] [address] [place] [id number] [place] GFR/1.73 sq M.predicted MDRD (S/P/Bld) [Vol rate/Area] mL/min/{1.73_m2} Normal [facility] Comment on above: Performed By: #### C BCNO, MG #### [facility] [address] Glucose [Mass/Vol] 88 mg/dL Normal 70-100 [facility] Comment on above: Result Comment: [facility] Glucose Reference Range is dependent on time and content of last meal. Glucose of more than 200 mg/dL in a nonstressed, ambulatory subject supports the diagnosis of Diabetes Mellitus. ADA recommended reference range Performed By: #### C BCNO, MG #### [facility] [address] Potassium [Moles/Vol] 3.7 mmol/L Normal 3.5-5.1 [facility] Comment on above: Performed By: #### C BCNO, MG #### [facility] [address] Sodium [Moles/Vol] 138 mmol/L Normal 136-145 [facility] Comment on above: Performed By: #### C BCNO, MG #### [facility] [address] Urea nitrogen [Mass/Vol] 15 mg/dL Normal 7-25 [facility] Comment on above: Performed By: #### C BCNO, MG #### [facility] [address] Calcium [Mass/volume] in Ser um or PlasmaOrdered By: Frantz Nieves on 11-19-2023 Calcium [Mass/Vol] 6.6 mg/dL 8.6-10.3 [facility] Carbon dioxide, total [Moles /volume] in Serum or PlasmaOrdered By: Frantz Nieves on 11-19-2023 CO2 [Moles/Vol] 24.0 mmol/L 21.0-31.0 [facility] Chloride [Moles/volume] in S staci or PlasmaOrdered By: Frantz Nieves on 11-19-2023 Chloride [Moles/Vol] 111 mmol/L 98-107 [facility] Creatinine [Mass/volume] in Serum or PlasmaOrdered By: Frantz Nieves on 11-19-2023 Creatinine [Mass/Vol] 0.40 mg/dL 0.60-1.20 [facility] Glucose [Mass/volume] in Ser um or PlasmaOrdered By: Frantz Nieves on 11-19-2023 Glucose [Mass/Vol] 88 mg/dL 70-100 [facility] Comment on above: ADA recommended refe rence rangeRandom Glucose Reference Range is dependent on time and content of last meal. Glucose of more than 200 mg/dL in a nonstressed, ambulatory subject supports the diagnosis of Diabetes Mellitus. Hemoglobin and Hematocriton 11-19-2023 Hematocrit (Bld) [Volume fraction] 26.7 % Low 34.0-46.4 [facility] Comment on above: Result Comment: PERF ORMED BY: [place] [address] PATHOLOGIST CAR DELIVERER EVY GARCIA M.D. Performed By: #### C BCNO, MG #### [facility] [address] [place] [address] Hemoglobin (Bld) [Mass/Vol] 9.1 g/dL Significant change down 11.8-15.4 [facility] Comment on above: Performed By: #### C BCNO, MG #### [address] Hematocrit (Bld) [Volume fraction] 19.0 % Off scale low 34.0-46.4 [facility] Comment on above: Result Comment: Crit ical value result called at 1124 on 11/19/23 PERFORMED BY: [place] [address] PATHOLOGIST CAR DELIVERER EVY GARCIA M.D. Performed By: #### C BCNO, MG #### [facility] [address] [place] [address] Hemoglobin (Bld) [Mass/Vol] 6.5 g/dL Low 11.8-15.4 [facility] Comment on above: Performed By: #### C BCNO, MG #### [address] Hematocrit (Bld) [Volume fraction] 22.1 % Low 34.0-46.4 [facility] Comment on above: Result Comment: PERF ORMED BY: [place] [address] PATHOLOGIST CAR DELIVERER EVY GARCIA M.D. Performed By: #### C BCNO, MG #### [address] Hemoglobin (Bld) [Mass/Vol] 7.5 g/dL Low 11.8-15.4 [facility] Comment on above: Performed By: #### C BCNO, MG #### [address] Hemogram CBC Without Diffon 11-19-2023 Erythrocyte distribution width (RBC) [Ratio] 16.2 % High 11.9-15.3 [facility] Comment on above: Performed By: #### C BCNO, MG #### [address] Hematocrit (Bld) [Volume fraction] 20.5 % Low 34.0-46.4 [facility] Comment on above: Performed By: #### C BCNO, MG #### [address] Hemoglobin (Bld) [Mass/Vol] 7.1 g/dL Low 11.8-15.4 [facility] Comment on above: Performed By: #### C BCNO, MG #### [address] MCH (RBC) [Entitic mass] 31.8 pg Normal 24.7-34.3 [facility] Comment on above: Performed By: #### C BCNO, MG #### [address] MCV (RBC) [Entitic vol] 92.0 fL Normal 80-100 [facility] Comment on above: Performed By: #### C BCNO, MG #### [address] Mean Corpuscular HGB Conc 34.6 g/dL Normal 32.0-35.0 [facility] Comment on above: Performed By: #### C BCNO, MG #### [address] Platelet mean volume (Bld) [Entitic vol] 7.5 fL Normal 6.3-10.7 [facility] Comment on above: Result Comment: PERF ORMED BY: [place] [address] PATHOLOGIST CAR DELIVERER EVY GARCIA M.D. Performed By: #### C BCNO, MG #### [address] Platelets (Bld) [#/Vol] 247 10*3/uL Normal 150-450 [facility] Comment on above: Performed By: #### C BCNO, MG #### [address] RBC (Bld) [#/Vol] 2.23 10*6/uL Low 3.60-5.00 [facility] Comment on above: Performed By: #### C BCNO, MG #### [address] WBC (Bld) [#/Vol] 10.1 10*3/uL Normal 3.8-11.6 [facility] Comment on above: Performed By: #### C BCNO, MG #### [address] Magnesiumon 11-19-2023 Magnesium [Mass/Vol] 2.0 mg/dL Normal 1.9-2.7 [facility] Comment on above: Result Comment: PERF ORMED BY: [place] [address] PATHOLOGIST CAR DELIVERER EVY GARCIA M.D. Performed By: #### C BCNO, MG #### [address] No Panel InformationOrdered By: Frantz Nieves on 11-19-2023 Estimated GFR (CKD-EPI) > 60.0 mL/Min [facility] Creatinine Clearance (Chem 50.26 [facility] Potassium [Moles/volume] in Serum or PlasmaOrdered By: Frantz Nieves on 11-19-2023 Potassium [Moles/Vol] 3.7 mmol/L 3.5-5.1 [facility] Serum or plasma anion gap de terminationOrdered By: Frantz Nieves on 11-19-2023 Anion gap [Moles/Vol] 6.7 mmol/L 6.0-15.0 [facility] Sodium [Moles/volume] in Ser um or PlasmaOrdered By: Frantz Nieves on 11-19-2023 Sodium [Moles/Vol] 138 mmol/L 136-145 [facility] Urea nitrogen [Mass/volume] in Serum or PlasmaOrdered By: Frantz Nieves on 11-19-2023 Urea nitrogen [Mass/Vol] 15 mg/dL 02-17 [facility] ABO/Rh Retypeon 11-18-2023 ABO/RH Recheck Result Positive Normal [facility] Comment on above: Result Comment: PERF ORMED BY: [facility] [address] [place] [address] PATHOLOGIST CAR DELIVERER EVY GARCIA M.D. Alanine aminotransferase [En zymatic activity/volume] in Serum or PlasmaOrdered By: Dale Mckeon on 11-18-2023 ALT [Catalytic activity/Vol] 14 U/L 7-52 [facility] Albumin [Mass/volume] in Ser um or Plasma by Bromocresol green (BCG) dye binding methoOrdered By: Dale Mckeon on 11-18-2023 Albumin BCG dye [Mass/Vol] 2.4 g/dL 3.5-5.7 [facility] Alkaline phosphatase [Enzyma tic activity/volume] in Serum or PlasmaOrdered By: Dale Mckeon on 11-18-2023 ALP [Catalytic activity/Vol] 44 U/L 34-104 [facility] Aspartate aminotransferase [ Enzymatic activity/volume] in Serum or PlasmaOrdered By: Dale Mckeon on 11-18-2023 AST [Catalytic activity/Vol] 17 U/L 13-39 [facility] Basophils Auto (Bld) [#/Vol] Ordered By: Dale Mckeon on 11-18-2023 Basophils (Bld) [#/Vol] N/A [facility] Basophils/100 WBC Auto (Bld) Ordered By: Dale Mckeon on 11-18-2023 Basophils/100 WBC (Bld) N/A [facility] Bilirubin.total [Mass/volume ] in Serum or PlasmaOrdered By: Dale Mckeon on 11-18-2023 Bilirubin [Mass/Vol] 0.3 mg/dL 0.3-1.0 [facility] Comprehensive Metabolic Pane will 11-18-2023 Albumin [Mass/Vol] 2.4 g/dL Low 3.5-5.7 [facility] Comment on above: Performed By: #### M G, TSH3, CMP, DIFF CBC, T4F #### [facility] [address] [place] [id number] [place] Albumin/Globulin [Mass ratio] 1.6 {ratio} Normal [facility] Comment on above: Performed By: #### M G, TSH3, CMP, DIFF CBC, T4F #### [facility] [address] [place] [id number] [place] ALP [Catalytic activity/Vol] 44 U/L Normal 34-104 [facility] Comment on above: Performed By: #### M G, TSH3, CMP, DIFF CBC, T4F #### [facility] [address] [place] [id number] [place] ALT [Catalytic activity/Vol] 14 U/L Normal 7-52 [facility] Comment on above: Performed By: #### M G, TSH3, CMP, DIFF CBC, T4F #### [facility] [address] [place] [id number] [place] Anion gap [Moles/Vol] 8.8 mmol/L Normal 6.0-15.0 [facility] Comment on above: Performed By: #### M G, TSH3, CMP, DIFF CBC, T4F #### [facility] [address] [place] [id number] [place] AST [Catalytic activity/Vol] 17 U/L Normal 13-39 [facility] Comment on above: Performed By: #### M G, TSH3, CMP, DIFF CBC, T4F #### [facility] [address] [place] [address] Bilirubin [Mass/Vol] 0.3 mg/dL Normal 0.3-1.0 [facility] Comment on above: Performed By: #### M G, TSH3, CMP, DIFF CBC, T4F #### [address] Calcium [Mass/Vol] 7.3 mg/dL Low 8.6-10.3 [facility] Comment on above: Performed By: #### M G, TSH3, CMP, DIFF CBC, T4F #### [address] Chloride [Moles/Vol] 105 mmol/L Normal 98-107 [facility] Comment on above: Performed By: #### M G, TSH3, CMP, DIFF CBC, T4F #### [address] CO2 [Moles/Vol] 28.2 mmol/L Normal 21.0-31.0 [facility] Comment on above: Performed By: #### M G, TSH3, CMP, DIFF CBC, T4F #### [address] Creatinine [Mass/Vol] 0.46 mg/dL Low 0.60-1.20 [facility] Comment on above: Performed By: #### M G, TSH3, CMP, DIFF CBC, T4F #### [place] [address] [place] Creatinine Clr Calc Pharmacy 50.26 Normal [facility] Comment on above: Performed By: #### M G, TSH3, CMP, DIFF CBC, T4F #### [place] [address] [place] GFR/1.73 sq M.predicted MDRD (S/P/Bld) [Vol rate/Area] mL/min/{1.73_m2} Normal [facility] Comment on above: Performed By: #### M G, TSH3, CMP, DIFF CBC, T4F #### [facility] [address] Globulin (S) [Mass/Vol] 1.5 g/dL Normal [facility] Comment on above: Performed By: #### M G, TSH3, CMP, DIFF CBC, T4F #### [facility] [address] Glucose [Mass/Vol] 93 mg/dL Normal 70-100 [facility] Comment on above: Result Comment: [facility] Glucose Reference Range is dependent on time and content of last meal. Glucose of more than 200 mg/dL in a nonstressed, ambulatory subject supports the diagnosis of Diabetes Mellitus. ADA recommended reference range Performed By: #### M G, TSH3, CMP, DIFF CBC, T4F #### [facility] [address] Potassium [Moles/Vol] 4.0 mmol/L Normal 3.5-5.1 [facility] Comment on above: Performed By: #### M G, TSH3, CMP, DIFF CBC, T4F #### [facility] [address] Protein [Mass/Vol] 3.9 g/dL Low 6.4-8.9 [facility] Comment on above: Performed By: #### M G, TSH3, CMP, DIFF CBC, T4F #### [facility] [address] [place] [address] [place] Sodium [Moles/Vol] 138 mmol/L Normal 136-145 [facility] Comment on above: Performed By: #### M G, TSH3, CMP, DIFF CBC, T4F #### [facility] [address] [place] [address] [place] Urea nitrogen [Mass/Vol] 24 mg/dL Normal 7-25 [facility] Comment on above: Performed By: #### M G, TSH3, CMP, DIFF CBC, T4F #### [facility] [address] Diff and CBCon 11-18-2023 Erythrocyte distribution width (RBC) [Ratio] 17.2 % High 11.9-15.3 [facility] Comment on above: Performed By: #### M G, TSH3, CMP, DIFF CBC, T4F #### [address] Hematocrit (Bld) [Volume fraction] 16.0 % Off scale low 34.0-46.4 [facility] Comment on above: Result Comment: Crit ical value result called at 0759 on 11/18/23 Performed By: #### M G, TSH3, CMP, DIFF CBC, T4F #### [address] Hemoglobin (Bld) [Mass/Vol] 5.6 g/dL Low 11.8-15.4 [facility] Comment on above: Performed By: #### M G, TSH3, CMP, DIFF CBC, T4F #### [address] MCH (RBC) [Entitic mass] 32.8 pg Normal 24.7-34.3 [facility] Comment on above: Performed By: #### M G, TSH3, CMP, DIFF CBC, T4F #### [address] MCV (RBC) [Entitic vol] 93.3 fL Normal 80-100 [facility] Comment on above: Performed By: #### M G, TSH3, CMP, DIFF CBC, T4F #### [address] Mean Corpuscular HGB Conc 35.2 g/dL High 32.0-35.0 [facility] Comment on above: Performed By: #### M G, TSH3, CMP, DIFF CBC, T4F #### [address] Platelet Estimate Normal Normal Normal [facility] Comment on above: Performed By: #### M G, TSH3, CMP, DIFF CBC, T4F #### [address] Platelet mean volume (Bld) [Entitic vol] 7.8 fL Normal 6.3-10.7 [facility] Comment on above: Result Comment: PERF ORMED BY: [place] [address] PATHOLOGIST CAR DELIVERER EVY GARCIA M.D. Performed By: #### M G, TSH3, CMP, DIFF CBC, T4F #### [address] Platelet Morphology Normal Normal Normal [facility] Comment on above: Result Comment: PERF ORMED BY: [place] [address] PATHOLOGIST CAR DELIVERER EVY GARCIA M.D. Performed By: #### M G, TSH3, CMP, DIFF CBC, T4F #### [address] Platelets (Bld) [#/Vol] 332 10*3/uL Normal 150-450 [facility] Comment on above: Performed By: #### M G, TSH3, CMP, DIFF CBC, T4F #### [address] RBC (Bld) [#/Vol] 1.72 10*6/uL Low 3.60-5.00 [facility] Comment on above: Performed By: #### M G, TSH3, CMP, DIFF CBC, T4F #### [address] WBC (Bld) [#/Vol] 10.9 10*3/uL Normal 3.8-11.6 [facility] Comment on above: Performed By: #### M G, TSH3, CMP, DIFF CBC, T4F #### [address] Eosinophils Auto (Bld) [#/Vo l]Ordered By: Dale Mckeon on 11-18-2023 Eosinophils (Bld) [#/Vol] N/A [facility] Eosinophils/100 WBC Auto (Bl d)Ordered By: Dale Mckeon on 11-18-2023 Eosinophils/100 WBC (Bld) N/A [facility] Free T4 (Free Thyroxine)on 0 11-18-2023 Free T4 [Mass/Vol] 1.10 ng/dL Normal 0.61-1.12 [facility] Comment on above: Performed By: #### C BCNO, MG #### [address] Globulin Calc (S) [Mass/Vol] Ordered By: Dale Mckeon on 11-18-2023 Globulin (S) [Mass/Vol] 1.5 g/dL [facility] Hemoglobin and Hematocriton 11-18-2023 Hematocrit (Bld) [Volume fraction] 22.2 % Low 34.0-46.4 [facility] Comment on above: Result Comment: PERF ORMED BY: [place] [address] PATHOLOGIST CAR DELIVERER EVY GARCIA M.D. Performed By: #### C BCNO, MG #### [address] Hemoglobin (Bld) [Mass/Vol] 7.7 g/dL Low 11.8-15.4 [facility] Comment on above: Performed By: #### C BCNO, MG #### [address] LeukoReduced RBCon LeukoReduced RBC TRANSFUSED 11/18/23 1440 Normal [facility] Lymphocytes Auto (Bld) [#/Vo l]Ordered By: Dale Mckeon on 11-18-2023 Lymphocytes (Bld) [#/Vol] N/A [facility] Lymphocytes/100 WBC Auto (Bl d)Ordered By: Dale Mckeon on 11-18-2023 Lymphocytes/100 WBC (Bld) N/A [facility] Magnesiumon 11-18-2023 Magnesium [Mass/Vol] 1.6 mg/dL Low 1.9-2.7 [facility] Comment on above: Performed By: #### M G, TSH3, CMP, DIFF CBC, T4F #### [facility] [address] [id number] [facility] Monocytes Auto (Bld) [#/Vol] Ordered By: Dale Mckeon on 11-18-2023 Monocytes (Bld) [#/Vol] N/A [facility] Monocytes/100 WBC Auto (Bld) Ordered By: Dale Mckeon on 11-18-2023 Monocytes/100 WBC (Bld) N/A [facility] Neutrophils Auto (Bld) [#/Vo l]Ordered By: Dale Mckeon on 11-18-2023 Neutrophils (Bld) [#/Vol] N/A [facility] Neutrophils/100 WBC Auto (Bl d)Ordered By: Dale Mckeon on 11-18-2023 Neutrophils/100 WBC (Bld) N/A [facility] Nucleated erythrocytes [Pres ence] in Blood by Automated countOrdered By: Dale Mckeon on 11-18-2023 Nucleated RBC Auto Ql (Bld) N/A [facility] Platelet adequacy [Presence] in Blood by Light microscopyOrdered By: Dale Mckeon on 11-18-2023 Platelets LM Ql (Bld) Normal Normal [facility] Platelet morphology finding [Identifier] in BloodOrdered By: Dale Mckeon on 11-18-2023 Platelet morphology finding Nom (Bld) Normal Normal [facility] Protein [Mass/volume] in Ser um or PlasmaOrdered By: Dale Mckeon on 11-18-2023 Protein [Mass/Vol] 3.9 g/dL 6.4-8.9 [facility] RBC morphologyOrdered By: Krystina Mckeon on 11-18-2023 RBC morphology finding Nom (Bld) N/A [facility] Serum or plasma albumin/glob ulin mass ratioOrdered By: Dale Mckeon on 11-18-2023 Albumin/Globulin [Mass ratio] 1.6 {ratio} [facility] Thyroid Stimulating Hormoneo n 11-18-2023 TSH Qn 5.61 m[IU]/L High 0.45-5.33 [facility] Comment on above: Result Comment: PERF ORMED BY: [facility] [address] [place] [address] PATHOLOGIST CAR DELIVERER EVY GARCIA M.D. Performed By: #### C JENNA, MG #### [facility] [address] [place] [address] [facility] Thyrotropin [Units/volume] i n Serum or PlasmaOrdered By: Frantz Nieves on 11-18-2023 TSH Qn 5.61 m[IU]/L 0.45-5.33 [facility] Thyroxine (T4) free [Mass/vo lume] in Serum or PlasmaOrdered By: Frantz Nieves on 11-18-2023 Free T4 [Mass/Vol] 1.10 ng/dL 0.61-1.12 [facility] Type and Screenon 11-18-2023 ABO and Rh group Nom (Bld) Blood group A Rh(D) positive Normal [facility] Comment on above: Order Comment: [...] 11-18-2023 WBC (Bld) [#/Vol] 10.9 10*3/uL 3.8-11.6 [facility] Folate [Mass/volume] in Seru m or PlasmaOrdered By: Dlae Mckeon on 11-17-2023 Folate [Mass/Vol] 15.0 ng/mL >5.9 [facility] Comment on above: Folate reference ran ge: >5.9 ng/mlThe WHO technical consultation on folate and vitamin [id number] has determined that folate concentrations lessthan 4 ng/ml are considered deficient. Hemoglobin and Hematocriton 11-17-2023 Hematocrit (Bld) [Volume fraction] 20.2 % Low 34.0-46.4 [facility] Comment on above: Result Comment: PERF ORMED BY: [facility] [address] [place] [address] PATHOLOGIST CAR DELIVERER EVY GARCIA M.D. Performed By: #### C JENNA, MG #### [address] Hemoglobin (Bld) [Mass/Vol] 6.9 g/dL Low 11.8-15.4 [facility] Comment on above: Performed By: #### C BCNO, MG #### [address] Hematocrit (Bld) [Volume fraction] 21.5 % Low 34.0-46.4 [facility] Comment on above: Result Comment: PERF ORMED BY: [place] [address] PATHOLOGIST CAR DELIVERER EVY GARCIA M.D. Performed By: #### C BCNO, MG #### [address] Hemoglobin (Bld) [Mass/Vol] 7.3 g/dL Low 11.8-15.4 [facility] Comment on above: Performed By: #### C BCNO, MG #### [address] Vit. B12/Folate Profileon Cobalamin (Vitamin B12) [Mass/Vol] 816 pg/mL Normal 180-914 [facility] Comment on above: Performed By: #### C BCNO, MG #### [address] Folate 15.0 ng/mL Normal >5.9 [facility] Comment on above: Result Comment: Maribel te reference range: >5.9 ng/ml The WHO technical consultation on folate and vitamin b12 deficiencies has determined that folate concentrations less than 4 ng/ml are considered deficient. PERFORMED BY: [place] [address] PATHOLOGIST CAR DELIVERER EVY GARCIA M.D. Performed By: #### C BCNO, MG #### [address] Vitamin B12 ser/plasOrdered By: Dale Mckeon on 11-17-2023 Cobalamin (Vitamin B12) [Mass/Vol] 816 pg/mL 180-914 [facility] REVERSE T3on 08-29-2022 Reverse T3, Serum 23.1 ng/dL Normal 9.2-24.1 [facility] Comment on above: Result Comment: This test was developed and its performance characteristics determined by [facility]. It has not been cleared or approved by the Food and Drug Administration. Performed By: #### R EVRT3 #### [facility] [address] [place] [address] Dr. Jin Hodges T3, TOTAL (TRIIODOTHYRONINE) on 08-27-2022 T3, TOTAL 136 ng/dL Normal 71-180 [facility] Comment on above: Performed By: #### T 3TOTAL #### [facility] [address] [place] [address] Dr. Jin Hodges FREE T3on 08-26-2022 FREE T3 2.98 pg/mlL Normal 2.18-3.98 [facility] Comment on above: Performed By: #### F T3, TSH #### [facility] [address] [place] [address] Dr. Jin Hodges FREE T4on 08-26-2022 Free T4 [Mass/Vol] 0.81 ng/dL Normal 0.76-1.46 [facility] Comment on above: Performed By: #### F T4 #### [facility] [address] [place] [address] Dr. Jin Hodges TSHon 08-26-2022 TSH 0.561 uIU/mL Normal 0.358-3.74 0 [facility] Comment on above: Performed By: #### F T3, TSH #### [facility] [address] [place] [address] Dr. Jin Hodges REVERSE T3on 03-05-2022 Reverse T3, Serum 21.3 ng/dL Normal 9.2-24.1 [facility] Comment on above: Result Comment: This test was developed and its performance characteristics determined by [facility]. It has not been cleared or approved by the Food and Drug Administration. Performed By: #### R EVRT3 #### [facility] [address] [place] [address] Dr. Jin Hodges T3, TOTAL (TRIIODOTHYRONINE) on 03-01-2022 T3, TOTAL 123 ng/dL Normal 71-180 [facility] Comment on above: Performed By: #### T 3TOTAL #### [facility] [address] [place] [address] Dr. Jin Hodges FREE T3on 02-28-2022 FREE T3 3.10 pg/mlL Normal 2.18-3.98 [facility] Comment on above: Performed By: #### T SH, FT3 #### [facility] [address] [place] [address] Dr. Jin Hodges FREE T4on 02-28-2022 Free T4 [Mass/Vol] 0.92 ng/dL Normal 0.76-1.46 [facility] Comment on above: Performed By: #### F T4 #### [facility] [address] [place] [address] Dr. Jin Hodges TSHon 02-28-2022 TSH 0.133 uIU/mL Critically low 0.358-3.74 0 [facility] Comment on above: Performed By: #### T SH, FT3 #### [facility] [address] [place] [address] Dr. Jni Hodges Vital Signs Date Time Vital Sign Value Performing Clinician Facility 07-28-2024 14:25-0500 Body height 162.6 cm [facility] 07-28-2024 14:25-0500 Body mass index (BMI) [Ratio] 24.2 kg/m2 [facility] 07-28-2024 14:25-0500 Body weight 63.96 kg [facility] 06-27-2024 14:29-0500 Body height 162.6 cm [facility] 06-27-2024 14:29-0500 Body mass index (BMI) [Ratio] 25.4 kg/m2 [facility] 06-27-2024 14:29-0500 Body weight 67.13 kg [facility] 05-02-2024 08:54-0400 Body height 162.6 cm Catracho Sheriff MD Work Phone: [facility] 05-02-2024 08:54-0400 Body mass index (BMI) [Ratio] 24.2 kg/m2 Catracho Sheriff MD Work Phone: [facility] 05-02-2024 08:54-0400 Body weight 63.96 kg Catracho Sheriff MD Work Phone: [facility] 04-28-2024 08:56-0400 Body height 162.6 cm Catracho Sheriff MD Work Phone: [facility] 04-28-2024 08:56-0400 Body mass index (BMI) [Ratio] 24.2 kg/m2 Catracho Sheriff MD Work Phone: [facility] 04-28-2024 08:56-0400 Body weight 63.96 kg Catracho Sheriff MD Work Phone: [facility] 04-26-2024 16:21-0400 Body height 162.6 cm Catracho Sheriff MD Work Phone: [facility] 04-26-2024 16:21-0400 Body mass index (BMI) [Ratio] 24.2 kg/m2 Catracho Sheriff MD Work Phone: [facility] 04-26-2024 16:21-0400 Body weight 63.96 kg Catracho Sheriff MD Work Phone: [facility] 04-14-2024 09:26-0400 Body height 162.6 cm Catracho Sheriff MD Work Phone: [facility] 04-14-2024 09:26-0400 Body mass index (BMI) [Ratio] 24.2 kg/m2 Catracho Sheriff MD Work Phone: [facility] 04-14-2024 09:26-0400 Body weight 63.96 kg Catracho Sheriff MD Work Phone: [facility] 03-29-2024 15:37-0400 Body height 162.6 cm [facility] 03-29-2024 15:37-0400 Body mass index (BMI) [Ratio] 24.2 kg/m2 [facility] 03-29-2024 15:37-0400 Body weight 63.96 kg [facility] 01-29-2024 13:20-0400 Diastolic blood pressure 59 mm[Hg] Nicky Ugarte MD Work Phone: [facility] 01-29-2024 13:20-0400 Heart rate 73 /min Nicky Ugarte MD Work Phone: [facility] [employer] 01-29-2024 13:20-0400 Respiratory rate 17 /min Nicky Ugarte MD Work Phone: [facility] [employer] 01-29-2024 13:20-0400 SaO2% (BldA) [Mass fraction] 89 % Nicky Ugarte MD Work Phone: [facility] [employer] 01-29-2024 13:20-0400 Systolic blood pressure 115 mm[Hg] Nicky Ugarte MD Work Phone: [facility] [employer] 01-29-2024 12:56-0400 Body temperature 98.71 [degF] Nicky Ugarte MD Work Phone: [facility] [employer] 01-29-2024 10:57-0400 Body height 162.6 cm Nicky Ugarte MD Work Phone: [facility] [employer] 01-29-2024 10:57-0400 Body mass index (BMI) [Ratio] 24.19 kg/m2 Nicky Ugarte MD Work Phone: [facility] [employer] 01-29-2024 10:57-0400 Body weight 63.96 kg Nicky Ugarte MD Work Phone: [facility] [employer] 12-03-2023 15:31-0400 Heart rate 69 /min Ray De La Cruz MD Work Phone: [employer] 12-03-2023 15:31-0400 SaO2% (BldA) [Mass fraction] 94 % Ray De La Cruz MD Work Phone: [employer] [facility] 12-03-2023 11:02-0400 Body temperature 98.01 [degF] Ray De La Cruz MD Work Phone: [facility] [employer] 12-03-2023 11:02-0400 Diastolic blood pressure 57 mm[Hg] Ray De La Cruz MD Work Phone: [facility] [employer] 12-03-2023 11:02-0400 Respiratory rate 18 /min Ray De La Cruz MD Work Phone: [facility] [employer] 12-03-2023 11:02-0400 Systolic blood pressure 108 mm[Hg] Ray De La Cruz MD Work Phone: [facility] [employer] 12-02-2023 06:00-0400 Body mass index (BMI) [Ratio] 34.38 kg/m2 Ray De La Cruz MD Work Phone: [facility] [employer] 12-02-2023 06:00-0400 Body weight 88 kg Ray De La Cruz MD Work Phone: [facility] [employer] 11-30-2023 15:24-0400 Body height 160 cm Ray De La Cruz MD Work Phone: [facility] [employer] 11-21-2023 15:01-0400 Body temperature 97.7 [degF] MD Catracho Sheriff Work Phone: [facility] 11-21-2023 15:01-0400 Diastolic blood pressure 54 mm[Hg] MD Catracho Sheriff Work Phone: [facility] 11-21-2023 15:01-0400 Heart rate 73 /min MD Catracho Sheriff Work Phone: [facility] 11-21-2023 15:01-0400 Respiratory rate 20 /min MD Catracho Sheriff Work Phone: [facility] 11-21-2023 15:01-0400 SaO2% (BldA) [Mass fraction] 96 % MD Catracho Sheriff Work Phone: [facility] 11-21-2023 15:01-0400 Systolic blood pressure 108 mm[Hg] MD Catracho Sheriff Work Phone: [facility] 11-21-2023 05:33-0400 Body weight 73.5 kg MD Catracho Sheriff Work Phone: [facility] 11-20-2023 13:22-0400 Body height 160.02 cm MD Catracho Sheriff Work Phone: [facility] 11-19-2023 00:00-0400 Inhaled oxygen flow rate 2 L/min MD Catracho Sheriff Work Phone: [facility] 08-25-2023 10:17-0500 Body height 162.6 cm Catracho Sheriff MD Work Phone: [facility] 08-25-2023 10:17-0500 Body mass index (BMI) [Ratio] 25.06 kg/m2 Catracho Sheriff MD Work Phone: [facility] 08-25-2023 10:17-0500 Body weight 66.22 kg Catracho Sheriff MD Work Phone: [facility] Healthcare Encounters Encounter Date Encounter Type Care Provider Facility Start: 09-19-2024 End: 09-19-2024 Refill Catracho Sheriff MD Work Phone: [facility] Comment on above: Generalized anxiety disorder (CMS/HCC) Start: 07-28-2024 End: 08-01-2024 ambulatory CATRACHO SHERIFF [facility] Start: 07-28-2024 End: 08-01-2024 Subsequent hospital [...] Start: 06-27-2024 End: 07-01-2024 ambulatory CATRACHO SHERIFF [facility] Start: 06-27-2024 End: 07-01-2024 Subsequent hospital [...] 04-12-2024 End: 04-12-2024 ambulatory EDWARD J HEMEYER [facility] Start: 03-29-2024 End: 04-02-2024 [facility] Start: 03-29-2024 End: 04-02-2024 Subsequent hospital visit by physician Natalie RIGGS Pre-Admit Testing Start: 03-01-2024 End: 03-01-2024 ambulatory LEONILA Patti ZAPATA Not Available Start: 02-16-2024 End: 02-16-2024 ambulatory LEONILA Patti ZAPATA Not Available Start: 01-29-2024 End: 01-29-2024 ambulatory NICKY SHANEL [facility] Start: 01-29-2024 End: 01-29-2024 Subsequent hospital visit by physician Nicky Ugarte MD Work Phone: [facility] Comment on above: Duodenal ulcer Start: 01-26-2024 End: 01-26-2024 ambulatory CATRACHO SHERIFF Not Available Start: 01-19-2024 End: 01-19-2024 ambulatory HÉCTORDEON SHERIFF Not Available Start: 01-18-2024 End: 01-22-2024 [facility] Start: 12-29-2023 End: 12-29-2023 ambulatory HÉCTORDEON SHERIFF Not Available Start: 11-25-2023 End: 12-03-2023 [facility] Start: 11-25-2023 End: 12-03-2023 Evaluation and management of inpatient Ray De La Cruz MD Work Phone: [facility] Comment on above: Acute anemia (Primar y Dx) Start: 11-17-2023 Non-patient / Non-visit MD Vince Sheriff Work Phone: [facility] Work Phone: Start: 11-17-2023 End: 11-21-2023 Evaluation and management of inpatient Catracho Sheriff Facility:[facility] Start: 11-17-2023 End: 11-21-2023 Evaluation and management of inpatient MD Catracho Sheriff Work Phone: [facility] Work Phone: Start: 11-03-2023 End: [...] K Manasa Pollock MD Work Phone: Start: 12-03-2023 End: 12-03-2023 Ecg routine ecg w/least 12 lds w/i&r Carol Abreu MD Work Phone: Start: 12-02-2023 Assay of magnesium Manasa Pollock MD Work Phone: Start: 12-02-2023 BASIC METABOLIC PANEL W/ REFLEX TO MG FOR LOW K Manasa Pollock MD Work Phone: Start: 12-01-2023 Blood count hemoglobin Manasa Pollock MD Work Phone: Start: 12-01-2023 Blood count hemoglobin Manasa oPllock MD Work Phone: Start: 12-01-2023 End: 12-01-2023 [...] MG FOR LOW K Farnaz Daxa Barahonao COW RIDER - RECOVERY COORDINATOR Work Phone: Start: 11-27-2023 End: 11-28-2023 Transfusion of packed red blood cells Jasmine Leong COW RIDER - RECOVERY COORDINATOR Work Phone: Start: 11-27-2023 Blood count hemoglobin Deanna Coyle MD Work Phone: Start: 11-27-2023 Blood count hemoglobin Nicky Ugarte MD Work Phone: Start: 11-27-2023 Vascular embolization or occlusion hemorrhage Jossy Tellez COW RIDER - RECOVERY COORDINATOR Work Phone: Start: 11-27-2023 Radiologic exam chest [...] Start: 11-26-2023 Assay of magnesium Kathy Mark COW RIDER - RECOVERY COORDINATOR Work Phone: Start: 11-26-2023 BASIC METABOLIC PANEL W/ REFLEX TO MG FOR LOW K Nicky Ugarte MD Work Phone: Start: 11-25-2023 Blood count hemoglobin Nicky Ugarte MD Work Phone: Start: 11-25-2023 LACTATE, SEPSIS Nicky Ugarte MD Work Phone: Start: 11-25-2023 Radiologic exam chest single view Misti Montemayor COW RIDER - RECOVERY COORDINATOR Work Phone: Start: 11-25-2023 Blood count hemoglobin Diana truong MD Work Phone: Start: 11-25-2023 End: 11-25-2023 ESOPHAGOGASTRODUODENOSCOPY CONTROL HEMORRHAGE Nicky Ugarte MD Work Phone: Start: 11-25-2023 LACTATE, SEPSIS Nicky Ugarte MD Work Phone: Start: 11-25-2023 End: 11-25-2023 Transfusion of packed red blood cells Jossy Aguilar Geoff APRN - RECOVERY COORDINATOR Work Phone: Start: 11-25-2023 End: 11-25-2023 Transfusion [...] typing serologic abo Kathy Flores APRN - RECOVERY COORDINATOR Work Phone: Start: 11-25-2023 BASIC METABOLIC PANEL W/ REFLEX TO MG FOR LOW K Kathy Flores APRN - RECOVERY COORDINATOR Work Phone: Start: 11-25-2023 Prothrombin time Kathy Flores APRN - RECOVERY COORDINATOR Work Phone: Start: 11-18-2023 Esophagogastroduodenoscopy MD Catracho [...] now? 1 Result Comment: PERF ORMED BY: [facility] [address] [place] [address] PATHOLOGIST CAR DELIVERER EVY GARCIA M.D. Start: 09-12-2013 Robbie Sheriff MD Work Phone: Plan of Treatment Date Care Activity Detail Author Start: 01-23-2025 Influenza vaccination Influenza Vaccine (#1) [facility] Comment on above: Postponed from 03/27/2024 (Patient Refus ed) Start: 01-04-2025 End: 01-04-2025 Patient encounter procedure 01/04/2025 10:30 AM EDT Office Visit [facility] [address] [place] [id number] Catracho Sheriff MD [address] [place] [address] [address] [place] [address] [facility] Start: 10-31-2024 End: 05-02-2025 Thyrotropin [Units/volume] in Serum or Plasma TSH Lab Routine Postsurgical hypothyroidism (CMS/HCC) Expected: 10/31/2024 (Approximate), Expires: 05/02/2025 [facility] Work Phone: Comment on above: Expected: 10/31/2024 (Approximate), Expi res: 05/02/2025 Start: 10-31-2024 End: 05-02-2025 Thyroxine (T4) free [Mass/volume] in Serum or Plasma T4, free Lab Routine Postsurgical hypothyroidism (CMS/HCC) Expected: 10/31/2024 (Approximate), Expires: 05/02/2025 [facility] Comment on above: Expected: 10/31/2024 (Approximate), Expi [...] 3:00 PM EST Surgery [facility] [address] [place] [address] Nicky Ugarte MD [address] [facility] [address] [place] [address] ESOPHAGOGASTRODUODENOSCOPY BIOPSY [facility] Comment on above: ESOPHAGOGASTRODUODENOSCOPY BIOPSY Start: 08-05-2024 End: 08-05-2024 Egd transoral biopsy single/multiple ESOPHAGOGASTRODUODENOSCOPY BIOPSY Duodenal ulcer 08/05/2024 2:45 PM EST [facility] Start: 08-05-2024 Subsequent hospital visit by physician 08/05/2024 2:45 PM EST Hospital Encounter [facility] [address] [place] [address] Nicky Ugarte MD [address] [facility] [address] [place], [place] [id number] [facility] Start: 07-27-2024 Annual Wellness Visit (Medicare Advantage) Annual Wellness Visit (Medicare Advantage) [facility] Start: 07-13-2024 End: 07-13-2024 Patient encounter procedure 07/13/2024 9:30 AM EST Office Visit [facility] [address] [place] [address] Catracho Sheriff MD [address] [place] [address] (Fax) Arrived [facility] Comment on above: Arrived Start: 07-12-2024 End: 07-12-2024 Patient encounter procedure [facility] 00 Start: 07-05-2024 End: 07-05-2024 Admission to same day surgery center 07/05/2024 10:45 AM EST - 07/05/2024 11:00 AM EST Surgery [facility] [address] [place] [address] Nicky Ugarte MD [address] [place] [address] ESOPHAGOGASTRODUODENOSCOPY WITH BIOPSY [facility] Comment on above: ESOPHAGOGASTRODUODENOSCOPY WITH BIOPSY Start: 07-05-2024 End: 07-05-2024 Egd transoral biopsy single/multiple ESOPHAGOGASTRODUODENOSCOPY BIOPSY Duodenal ulcer 07/05/2024 10:45 AM EST [facility] Start: 07-05-2024 Subsequent hospital visit by physician 07/05/2024 10:45 AM EST Hospital Encounter [facility] [address] [place] [address] Nicky Ugarte MD [address] [facility] [address] [place] [address] [facility] Start: 05-02-2024 End: 05-02-2025 CBC [...] Visit [facility] [address] [place] [address] [place] [address] Catracho Sheriff MD [address] [place] [address] (Fax) Arrived [facility] Comment [...] Visit [facility] [address] [address] Catracho Sheriff MD [address] [place] [address] (Fax) Chronic pain syndrome; Fibromyalgia; Primary osteoarthritis, [...] 04/12/2024 11:45 AM EDT Surgery [facility] [address] [place] [address], [place] [address] Nicky Ugarte MD [address] [facility] [address] [place] [address] ESOPHAGOGASTRODUODENOSCOPY BIOPSY POSSIBLE DILATION [facility] Comment on above: ESOPHAGOGASTRODUODENOSCOPY BIOPSY POSSIB LE DILATION Start: 04-12-2024 End: 04-12-2024 Egd transoral biopsy single/multiple ESOPHAGOGASTRODUODENOSCOPY BIOPSY Duodenal stricture 04/12/2024 11:30 AM EDT [facility] Start: 04-12-2024 Subsequent hospital visit by physician 04/12/2024 11:30 AM EDT Hospital Encounter [facility] [address] [place] [address] Nicky Ugarte MD [address] [address] [facility] Start: 03-27-2024 COVID-19 Vaccine ( season) COVID-19 Vaccine ( season) [facility] Start: 03-27-2024 Influenza vaccination Influenza Vaccine (#1) [facility] Start: 03-05-2024 End: 12-01-2024 CBC panel - Blood by Automated count CBC Lab Routine Acute anemia Expected: 03/05/2024, Expires: 12/01/2024 [facility] Comment on above: Expected: 03/05/2024, Expires: Start: 02-25-2024 Influenza vaccination [facility] Start: 01-29-2024 End: 01-29-2024 Egd transoral biopsy single/multiple ESOPHAGOGASTRODUODENOSCOPY BIOPSY Duodenal ulcer 01/29/2024 12:41 PM EDT [facility] Start: 12-09-2023 End: 12-09-2023 Patient encounter procedure 12/09/2023 10:30 AM EDT Office Visit [facility] [address] [facility] [address] [place] [id number] Nicky Ugarte MD [address] [place] [address] EGD F/u 11/25/23 & 12/01/23 [facility] Comment on above: EGD F/u 11/25/23 & 12/01/23 Start: 11-21-2023 [facility] Start: 11-17-2023 Hospital admission [facility] Start: 11-17-2023 Referral to event attendant [facility] Start: 10-21-2023 End: 10-21-2023 Patient encounter procedure 10/21/2023 10:30 AM EDT Office Visit [facility] [address] [place] [address] Catracho Sheriff MD [address] [place] [address] (Fax) [facility] Start: 09-12-2023 Screening for malignant neoplasm of colon [facility] Start: 2023 Respiratory Syncytial Virus (RSV) or age 60 yrs+ (1 - 1-dose 75+ series) Respiratory Syncytial Virus (RSV) or age 60 yrs+ (1 - 1-dose 75+ series) [facility] Start: 07-27-2023 Annual Wellness Visit (Medicare Advantage) Annual Wellness Visit (Medicare Advantage) [facility] Start: 03-27-2023 COVID-19 Vaccine ( season) COVID-19 Vaccine ( season) [facility] Start: 03-27-2023 Influenza vaccination Influenza Vaccine (#1) [facility] Start: 2008 Respiratory Syncytial Virus (RSV) or age 60 yrs+ (1 - 1-dose 60+ series) Respiratory Syncytial Virus (RSV) or age 60 yrs+ (1 - 1-dose 60+ series) [facility] Start: 11-12-2004 DTaP/Tdap/Td vaccine (1 - Tdap) DTaP/Tdap/Td vaccine (1 - Tdap) [facility] Start: 2003 Screening for osteoporosis DEXA (modify frequency per FRAX score) [facility] Start: 1998 Screening for malignant neoplasm of lung [facility] Start: 1998 Shingles vaccine (1 of 2) Shingles vaccine (1 of 2) [facility] [employer] Start: 1993 Screening for malignant neoplasm of colon [facility] Start: 1988 Lipid panel Lipids [facility] Start: 1966 Hepatitis C screening Hepatitis C screen [facility] Start: 1960 Depression Screen Depression Screen [facility] Start: 1948 Screening for malignant neoplasm of colon [facility] End: 12-20-2023 Basic Metabolic Panel w/ Reflex to MG Basic Metabolic Panel w/ Reflex to MG Lab Routine Daily for 3 Weeks starting 11/30/2023 until 12/20/2023, 4 completed [facility] Comment on above: Daily for 3 Weeks starting 11/30/2023 un til 12/20/2023, 4 completed Body fluid culture Body fluid cu lture Microbiology Routine 04/26/2024 4:46 PM EDT [facility] Work Phone: End: 12-20-2023 CBC W Auto Differential panel - Blood CBC with Auto Differential Lab Routine Daily for 3 Weeks starting 11/30/2023 until 12/20/2023, 4 completed [facility] Comment on above: Daily for 3 Weeks starting 11/30/2023 un til 12/20/2023, 4 completed EKG 12 Lead EKG 12 Lead ECG Routine 12/03/2023 5:35 AM EDT [facility] EKG 12 Lead EKG 12 Lead ECG STAT 12/03/2023 5:35 AM EDT [facility] Work Phone: Helicobacter pylori Ag [Presence] in Stool by Immunoassay [facility] End: 11-29-2023 Hemoglobin and Hematocrit Hemoglobin and Hematocrit Lab Routine Post Transfusion Post Transfusion Post Transfustion until discontinued starting 11/28/2023 [facility] [employer] Comment on above: Post Transfusion Post Transfusion Post T ransfustion until discontinued starting 11/28/2023 End: 12-13-2023 Hemoglobin and Hematocrit Hemoglobin and Hematocrit Lab Routine Post Transfusion Post Transfusion Post Transfustion until discontinued starting 11/29/2023 [facility] Comment on above: Post Transfusion Post Transfusion Post T ransfustion until discontinued starting 11/29/2023 End: 12-14-2023 Hemoglobin and Hematocrit Hemoglobin and Hematocrit Lab Routine Post Transfusion Post Transfusion Post Transfustion until discontinued starting 11/30/2023 [facility] Comment on above: Post Transfusion Post Transfusion Post T ransfustion until discontinued starting 11/30/2023 End: 12-01-2023 INITIATE PACU OXYGEN THERAPY PROTOCOL Initiate PACU Oxygen Therapy Protocol Respiratory Care Routine Continuous until discontinued starting 12/01/2023 [facility] Work Phone: Comment on above: Continuous until discontinued starting 0 12/01/2023 Intermittent pulse oximetry Puls e Oximetry Spot Check Respiratory Care Routine As Needed until discontinued starting 11/27/2023 [facility] Comment on above: As Needed until discontinued starting Oxygen therapy [Mini mum Data Set] Initiate Oxygen Therapy Protocol Respiratory Care Routine As Needed until discontinued starting 11/25/2023 [facility] Comment on above: As Needed until discontinued starting Oxygen therapy [Mini mum Data Set] Initiate Oxygen Therapy Protocol Respiratory Care Routine As Needed until discontinued starting 01/29/2024 [facility] Work Phone: Comment on above: As Needed until discontinued starting Patient Education Duodenal Ulcer (DC) Pantoprazole Polysaccharide-Iron Complex [facility] Work Phone: Patient referral [facility] Work Phone: End: 11-27-2023 PREPARE RBC (CROSSMATCH), 1 Units PREPARE RBC (CROSSMATCH), 1 Units Blood Bank Routine Once for 1 Occurrences starting 11/27/2023 until 11/27/2023 [facility] Comment on above: Once for 1 Occurrences starting 11/27/19 until 11/27/2023 End: 11-29-2023 PREPARE RBC (CROSSMATCH), 1 Units PREPARE RBC (CROSSMATCH), 1 Units Blood Bank Routine Once for 1 Occurrences starting 11/29/2023 until 11/29/2023 [employer] [facility] Comment on above: Once for 1 Occurrences starting 11/29/19 until 11/29/2023 End: 11-30-2023 PREPARE RBC (CROSSMATCH), 1 Units PREPARE RBC (CROSSMATCH), 1 Units Blood Bank Routine Once for 1 Occurrences starting 11/30/2023 until 11/30/2023 [employer] [facility] Comment on above: Once for 1 Occurrences starting 11/30/19 until 11/30/2023 End: 11-29-2023 SPECIMEN REJECTION [facility] [employer] [facility] Comment on above: Once for 1 Occurrences starting 11/29/19 until 11/29/2023 End: 11-30-2023 SPECIMEN REJECTION [facility] [employer] [facility] Work Phone: Comment on above: Once for 1 Occurrences starting 11/30/19 until 11/30/2023 Surgical Pathology Surgical Path ology Lab Routine Duodenal ulcer Release Upon Ordering for 1 Occurrences starting 01/29/2024 [employer] [facility] Comment on above: Release Upon Ordering for 1 Occurrences starting 01/29/2024 End: 01-29-2024 SURGICAL PATHOLOGY REPORT SURGICAL PATHOLOGY REPORT Lab Routine Once for 1 Occurrences starting 01/29/2024 until 01/29/2024 [employer] [facility] Comment on above: Once for 1 Occurrences starting 01/29/20 until 01/29/2024 Transfuse RBC [facility] Immunizations Immunization Date Immunization Notes Care Provider [facility] 05-03-2021 Seasonal, trivalent, recombinant, injectable influenza vaccine, preservative free Catracho Sheriff MD Work Phone: [facility] 05-03-2021 influenza virus vacc ine, unspecified formulation Catracho Sheriff MD Work Phone: [facility] 12-03-2020 Pfizer Purple Cap SARS-CoV-2 Vaccination Catracho Sheriff MD Work Phone: [facility] 11-12-2020 Pfizer Purple Cap SARS-CoV-2 Vaccination Catracho Sheriff MD Work Phone: [facility] 09-26-2019 Influenza, High-dose Seasonal, Quadrivalent, Preservative Free Catracho Sheriff MD Work Phone: [facility] 09-26-2019 pneumococcal polysaccharide vaccine, 23 valent Catracho Sheriff MD Work Phone: [facility] 06-26-2018 influenza, injectabl e, quadrivalent, preservative free Catracho Sheriff MD Work Phone: [facility] 06-26-2018 pneumococcal conjuga te vaccine, 13 valent Catracho Sheriff MD Work Phone: [facility] 11-11-2004 pneumococcal polysaccharide vaccine, 23 valent Catracho Sheriff MD Work Phone: [facility] 11-11-2004 tetanus and diphther ia toxoids, adsorbed, preservative free, for adult use (5 Lf of tetanus toxoid and 2 Lf of diphtheria toxoid) Catracho Sheriff MD Work Phone: [facility] Payers Date Payer Category Payer Medicare [id number] 2023 Self-pay [id number] 2022 Medicare (Managed Care) [facility] [id number] 2008 Medicare [id number]. [id number] 1959 Medicare [id number] 1948 Unknown [id number] 2.16.840.1.993350.3.579.2. 593 1948 Unknown [id number] 2.16.840.1.271468.3.579.2. 593 1948 Unknown [id number] 2.16.840.1.392262.3.579.2. 175 1948 Unknown [id number] 2.16.840.1.483666.3.579.2. 1259 1948 Unknown [id number] 2.16.840.1.182701.3.579.2. 1259 1948 Unknown [id number] 2.16.840.1.089374.3.579.2. 1259 1948 Unknown [id number] 2.16.840.1.874314.3.579.2. 1259 1948 Unknown [id number] 2.16.840.1.327122.3.579.2. 1259 1948 Unknown [id number] 2.16.840.1.382258.3.579.2. 1259 1948 Unknown [id number] 2.16.840.1.045288.3.579.2. 1259 1948 Unknown [id number] 2.16.840.1.923190.3.579.2. 1259 1948 Unknown [id number] 2.16.840.1.370709.3.579.2. 1259 1948 Unknown [id number] 2.16.840.1.560134.3.579.2. 1259 1948 Unknown [id number] 2.16.840.1.368090.3.579.2. 1259 1948 Unknown [id number] 2.16.840.1.033908.3.579.2. 1259 1948 Unknown [id number] 2.16.840.1.839657.3.579.2. 1259 1948 Unknown [id number] 2.16.840.1.922347.3.579.2. 1259 1948 Unknown [id number] 2.16.840.1.798705.3.579.2. 1259 1948 Unknown [id number] 2.16.840.1.670918.3.579.2. 176 1948 Unknown [id number] 2.16.840.1.233291.3.579.2. 176 1948 Unknown [id number] 2.16.840.1.846537.3.579.2. 176 1948 Unknown [id number] 2.16.840.1.599005.3.579.2. 176 1948 Unknown [id number] 2.16.840.1.686457.3.579.2. 176 1948 Unknown [id number] 2.16.840.1.915590.3.579.2. 176 Medicaid Medicaid [place] [id number] Medicare Medicare Outpatient [id number] Unknown HCAP/HFA/FAP Active [id number] Unknown [id number] 2.16.840.1.512021.3.579.2. 531 Social History Date Type Detail Facility Start: 08-13-2023 End: 03-29-2024 Tobacco smoking status [facility] Ex-smoker [facility] Start: 11-17-2023 End: 03-22-2024 History of tobacco use Current smoker [facility] End: 03-22-2024 History of tobacco use Cigarette Smoker [facility] Start: 08-13-2023 End: 03-29-2024 Tobacco use and exposure Smokeless tobacco non-user [facility] Start: 08-25-2023 End: 05-02-2024 Alcohol intake [...] Start: 1950 Sex Assigned At Female F [facility] Start: 11-25-2023 Tobacco smoking stat us [facility] Smokes tobacco daily [facility] Has the electric, [employer] s, oil, or water company threatened to shut off services in your home in past 12Mo Patient declined [facility] (I/We) worried wheth er (my/our) food would run out before (I/we) got money to buy more. Never true [facility] Goals Date Patient Goal Desired Activity /State Functional Status Date Assessment Result Facility 11-21-2023 Functional status Patient at [facility] Work Phone: Mental Status Date Assessment Result Facility 11-21-2023 Cognitive function Cognitive Sta tus Patient at [facility] Work Phone: Clinical Notes 08-25-2023 to 08-17-2024 Telephone Encounter - Catracho Sheriff MD - 08/17/2024 4:35 PM ESTTelephone Encounter - Catracho Sheriff MD - 08/17/2024 4:35 PM Allyson Atkinson RN - 07/28/2024 2:00 PM EST Note Date & Type Note Facility 08-17-2024 Telephone encounter Note error [facility] 08-17-2024 Miscellaneous Notes error documented in this encounter [facility] 07-28-2024 History of Present illness Narrative Pre-op [...] lotion, powder, jewelry, piercings, perfume, makeup, nail macedonian, hair accessories, or hair spray on the day of surgery. Wear loose comfortable clothing. Leave your valuables at home but bring a payment source for any after-surgery prescriptions you plan to fill at [facility]. Bring a storage case for any glasses/contacts. An adult who is responsible for you MUST drive you home and should be with you for the first 24 hours after surgery. The Day of Surgery: Arrive at [facility] Surgery Entrance at the time directed by your surgeon and check in at the desk. If you have a living will or healthcare power of regulatory attorney, please bring a copy. You will be taken to the pre-op holding area where you will be prepared for surgery. A physical assessment will be performed by a nurse practitioner or casting house worker. Your IV will be started and you [...] EGD 08/05/24 documented in this encounter [facility] 07-13-2024 History of Present illness Narrative [...] down to the shoulder blades. She is wezv-ac-iaiuijukij tender in this area. Decreased range of [...] by mouth at bedtime 90 tablet 1 [place]-3 Fatty Acids (Fish Oil) 1000 MG capsule [...] evaluation and management. documented in this encounter [facility] 06-27-2024 History of Present illness Narrative Pre-op [...] lotion, powder, jewelry, piercings, perfume, makeup, nail macedonian, hair accessories, or hair spray on the day of surgery. Wear loose comfortable clothing. Leave your valuables at home but bring a payment source for any after-surgery prescriptions you plan to fill at [facility]. Bring a storage case for any glasses/contacts. An adult who is responsible for you MUST drive you home and should be with you for the first 24 hours after surgery. Son will ride in cab with her The Day of Surgery: Arrive at [facility] Surgery Entrance at the time directed by your surgeon and check in at the desk. If you have a living will or healthcare power of regulatory attorney, please bring a copy. You will be taken to the pre-op holding area where you will be prepared for surgery. A physical assessment will be performed by a nurse practitioner or casting house worker. Your IV will be started and you [...] of instructions documented in this encounter [facility] 06-21-2024 Telephone encounter Note RX sent L [facility] 06-21-2024 Miscellaneous Notes RX sent documented in this encounter [facility] 06-15-2024 Telephone encounter Note See CCM note. RX sent [facility] 06-15-2024 Miscellaneous Notes See CCM note. RX sent documented in this encounter [facility] 05-02-2024 History of Present illness Narrative Images [...] by mouth at bedtime 90 tablet 1 [place]-3 Fatty Acids (Fish Oil) 1000 MG capsule [...] referral up to the vascular surgeon in [place]. Not sure if there is much he [...] Handicap Placard Lifetime documented in this encounter [facility] 04-28-2024 History of Present illness Narrative Images [...] by mouth at bedtime 90 tablet 1 [place]-3 Fatty Acids (Fish Oil) 1000 MG capsule [...] develop a thrombophlebitis. documented in this encounter [facility] 04-26-2024 History of Present illness Narrative Images [...] by mouth at bedtime 90 tablet 1 [place]-3 Fatty Acids (Fish Oil) 1000 MG capsule [...] met with resistance. documented in this encounter [facility] 04-14-2024 History of Present illness Narrative Images [...] by mouth at bedtime 90 tablet 1 [place]-3 Fatty Acids (Fish Oil) 1000 MG capsule [...] seek medical care. documented in this encounter [facility] 03-29-2024 History of Present illness Narrative Pre-op [...] lotion, powder, jewelry, piercings, perfume, makeup, nail macedonian, hair accessories, or hair spray on the day of surgery. Wear loose comfortable clothing. Leave your valuables at home but bring a payment source for any after-surgery prescriptions you plan to [facility]. Bring a storage case for any glasses/contacts. An adult who is responsible for you MUST drive you home and should be with you for the first 24 hours after surgery. The Day of Surgery: Arrive at [facility] Surgery Entrance at the time directed by your surgeon and check in at the desk. If you have a living will or healthcare power of regulatory attorney, please bring a copy. You will be taken to the pre-op holding area where you will be prepared for surgery. A physical assessment will be performed by a nurse practitioner or casting house worker. Your IV will be started and you [...] POSSIBLE DILATION- 04/12/2024 documented in this encounter [facility] 01-29-2024 Hospital Discharge instructions Drew Lund RN [...] or neck pain documented in this encounter [facility] 12-03-2023 History of Present illness Narrative Pt [...] Unable to assess Fluid Accumulation: Mild Extremities Public Defender Strength: Not Performed Nutrition Assessment: Diet advanced [...] Measures: Height: 160 cm (5' 2.99 ) Orange Body Weight (IBW): 115 lbs (52 kg) [...] Used for Energy Requirements: Admission Energy (kcal/day): 4939-5481 kcals/day Weight Used for Protein Requirements: Admission Protein (g/day): 80 to 100 g/day Method Used for Fluid Requirements: 1 ml/kcal Fluid (ml/day): 9300-6077 mL/day or per MD Nutrition Diagnosis: Inadequate [...] Oral Nutrition Supplement Zenobia Negrete RD Contact: [phone] Images from the original note were not included. [facility] Office: [phone] Alvin Ma DO, Erick Burns DO, Varghese Abreu DO, Randy Zelaya DO, Raz Monzon MD, Tiara Quintana MD, Lianet Murcia MD, Nicolle Cardoso MD, Ray De La Cruz MD, Kathi Ibanez MD, Diana Joseph MD, Yoselin De La Paz DO, Osvaldo Cortes MD, Patrick Mcbride MD, Jesus Ma DO, Amira King MD, Grabiel Benedcit DO, Rubi Frias MD, Teresa Queen MD, [...] ARTUR RodriguezC, Olivia Stiles, OSVALDO, Ying Singleton, RECOVERY COORDINATOR, Vikas Laird, RECOVERY COORDINATOR, Mira Pina, RECOVERY COORDINATOR, Briana Lim, RECOVERY COORDINATOR, Shirley Johnson, YOUSIF, Jenny Denise, OSVALDO, Jasmine Leong, OSVALDO, Janice Perla, OSVALDO [facility] IN-PATIENT SERVICE [facility] Progress Note 12/03/2023 8:14 AM Name: Jenny Ewing Acct: [id number] Room: IP Day: 8 Admit Date: 11/25/2023 4:07 AM PCP: No primary care provider on file. Code Status: Full Code Subjective: C/C: GI bleed Interval History Status: stable. Overnight patient went into [facility] with [facility]. Seen and examined bedside this [...] of 6.6. received 1 unit transfusion at [facility]. She has not been able to hop picker her medications from prior discharge from [facility]. They were sent to her pharmacy [...] infarction (HCC), COPD (chronic obstructive pulmonary disease) ([facility]), Depression, History of blood transfusion, and Thyroid [...] input(s): PROT , LABALBU , LABA1C , X1AANJG , D4GZHWQ , FT4 , TSH , AST , ALT , LDH , GGT , ALKPHOS , BILITOT , BILIDIR , AMMONIA , AMYLASE , LIPASE , LACTATE , CHOL , HDL , CHOLHDLRATIO , TRIG , VLDL , QUJ25DQ , PHENYTOIN , PHENYF , URICACID , POCGLU in the last 72 hours. Invalid input(s): LABGGT , LDLCHOLESTEROL ABG:No results found for: POCPH , PHART , PH , POCPCO2 , NKL7XFN , PCO2 , POCPO2 , PO2ART , PO2 , POCHCO3 , LVR1QZI , HCO3 , NBEA , PBEA , BEART , BE , THGBART , THB , NYU8CIR , QZAB8KZA , I4ZLHZRA , O2SAT , FIO2 No results found [...] Yes Plan: New onset A-fib with RVR [id number] 5-currently in normal sinus rhythm. Evaluated by [...] SNF.. Carol Abreu MD 12/03/2023 8:[address] [facility] Progress Note Jenny Ewing is [...] results for input(s): TIBC , FERRITIN , [id number] , FOLATE , OCCULTBLD in the last [...] contact me with any questions or concerns. [facility] Gastroenterology PATY Quijano CNP [phone] 12/02/2023 3:14 PM Estimated time of 20 [...] from the original note were not included. [facility] Office: [phone] Alvin Ma DO, Erick Burns DO, Varghese [...] Lugo MD, Bruce Pozo MD, Aida Montemayor, RECOVERY COORDINATOR, Nereyda Patiño, RECOVERY COORDINATOR, Vito Calabrese, RECOVERY COORDINATOR, Karime Keane, [facility], Halima Mason, RECOVERY COORDINATOR, Carmen Orozco, RECOVERY COORDINATOR, Kathy Flores, RECOVERY COORDINATOR, Farnaz Lucas, RECOVERY COORDINATOR, Maricel Burger, PAGarrettC, Alicia Veliz, PAGarrettC, Olivia Stiles, RECOVERY COORDINATOR, Ying Singleton, RECOVERY COORDINATOR, Vikas Laird, RECOVERY COORDINATOR, Mira Pina, RECOVERY COORDINATOR, Briana Lim, [facility], Shirley Johnson, [facility], Jenny Denise, RECOVERY COORDINATOR, Jasmine Leong, RECOVERY COORDINATOR, Janice Perla, [facility] [facility] [place] IN-PATIENT SERVICE [facility] Progress Note 12/02/2023 9:48 AM Name: Jenny Ewing Acct: [id number] Room: IP Day: 7 Admit Date: 11/25/2023 [...] of 6.6. received 1 unit transfusion at [facility]. She has not been able to hop picker her medications from prior discharge from [facility]. They were sent to her pharmacy [...] , PHART , PH , POCPCO2 , HPV3OZH , PCO2 , POCPO2 , PO2ART , PO2 , POCHCO3 , QQX5RXW , HCO3 , NBEA , PBEA , BEART , BE , THGBART , THB , PZI6MKS , PUOV8EZI , F4HQZLXW , O2SAT , FIO2 No results found [...] versus home with home care with daughter. 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 Carol Abreu MD 12/02/2023 9:48 AM Occupational Therapy Facility/Department: [facility] CAR 2- STEPDOWN Occupational Therapy Initial Assessment [...] of 6.6. received 1 unit transfusion at [facility]. She has not been able to hop picker her medications from prior discharge from [facility]. 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 received 1 unit transfusion at [facility]. She has not been able to hop picker her medications from prior discharge from [facility]. They were sent to her pharmacy [...] Reassurance given and PT spoke with DC nurse discharge planner and told pt's concerns. Bed mobility [...] Ambulation Assistance: Independent Transfer Assistance: Independent Active Seed Analyst: No (pt states she hasn't driven in ~5 years--she states she has a valid non cdl driver's license but can't afford to have [...] from the original note were not included. [facility] Office: [phone] Alvin Ma DO, Erick Burns DO, Varghese [...] ARTUR RodriguezC, Olivia Stiles OSVALDO, Ying Singleton, RECOVERY COORDINATOR, Vikas Laird, RECOVERY COORDINATOR, Mira Pina, RECOVERY COORDINATOR, Briana Lim, RECOVERY COORDINATOR, Shirley Johnson, YOUSIF, Jenny Denise, OSVALDO, Jasmine Leong, OSVALDO, Janice Perla, RECOVERY COORDINATOR [facility] IN-PATIENT SERVICE [facility] Progress Note 12/01/2023 3:27 PM Name: Jenny Ewing Acct: [id number] Room: IP Day: 6 Admit Date: 11/25/2023 [...] of 6.6. received 1 unit transfusion at [facility]. She has not been able to hop picker her medications from prior discharge from [facility]. They were sent to her pharmacy [...] , PHART , PH , POCPCO2 , RUH5MMT , PCO2 , POCPO2 , PO2ART , PO2 , POCHCO3 , ODU4JLC , HCO3 , NBEA , PBEA , BEART , BE , THGBART , THB , AYN3LWK , UOFU4HBA , T3CMSIXO , O2SAT , FIO2 No results found [...] discharge home with home care tomorrow. Carol Abreu MD 12/01/2023 3:27 PM mirian Progress Note [...] Unable to assess Fluid Accumulation: Mild Extremities Public Defender Strength: Not Performed Nutrition Assessment: Pt started [...] Measures: Height: 160 cm (5' 2.99 ) Orange Body Weight (IBW): 115 lbs (52 kg) [...] Used for Energy Requirements: Admission Energy (kcal/day): 3912-0211 kcals/day Weight Used for Protein Requirements: Admission Protein (g/day): 80 to 100 g/day Method Used for Fluid Requirements: 1 ml/kcal Fluid (ml/day): 8375-2453 mL/day or per MD Nutrition Diagnosis: Inadequate [...] to determine Carla Scott RD, LD Contact: [phone] Images from the original note were not included. [facility] Office: [phone] Alvin Ma DO, Erick Burns DO, Varghese [...] MD, Ehsan Palacio MD, Elma Tejada MD, Eglin Young MD, Kelsie Oneill MD, Klaus Yeung MD, Deanna Coyle MD, Carlos Jaquez DO, Reynaldo Hameed DO, Jie Lugo MD, Bruce Pozo MD, Aida Montemayor CNP, Nereyda Patiño CNP, Vito Calabrese CNP, Karime Keane, AAYUSH, Halima Mason, RECOVERY COORDINATOR, Carmen Orozco, RECOVERY COORDINATOR, Kathy Flores, RECOVERY COORDINATOR, Farnaz Lucas RECOVERY COORDINATOR, Maricel Burger PAGarrettC, ARTUR RodriguezC, Olivia Stiles RECOVERY COORDINATOR, Ying Singleton RECOVERY COORDINATOR, Vikas Laird RECOVERY COORDINATOR, Mira Pina, RECOVERY COORDINATOR, Briana Lim, RECOVERY COORDINATOR, Shirley Johnson, PRESSURIZER, Jenny Denise, OSVALDO, Jasmine Leong RECOVERY COORDINATOR, Janice Perla, RECOVERY COORDINATOR [facility] IN-PATIENT SERVICE [facility] Progress Note 11/30/2023 12:31 PM Name: Jenny Ewing Acct: [id number] Room: IP Day: 5 Admit Date: 11/25/2023 [...] of 6.6. received 1 unit transfusion at [facility]. She has not been able to hop picker her medications from prior discharge from [facility]. They were sent to her pharmacy [...] , PHART , PH , POCPCO2 , GVL2JVI , PCO2 , POCPO2 , PO2ART , PO2 , POCHCO3 , ZFV3PJX , HCO3 , NBEA , PBEA , BEART , BE , THGBART , THB , PEK1MEX , QXHS1GPO , I7RNHXBE , O2SAT , FIO2 No results found [...] Patient's name: Jenny Ewing Patient's account/billing number: [id number] Patient's Date of : 1950 Age: 73 y.o. Date of Admission: 11/25/2023 4:07 AM Length of stay during current admission: 5 Primary Care Physician: No primary care provider on file. Code Status: Full Code Mode of physician to physician communication: [x] Via telephone [] In person Date and time of sign-out: 11/30/2023 10:16 AM Accepting Internal Medicine LEDGER POSTER: Karime Keane Accepting Medicine team: Intermed Accepting [...] the floor. Gino Quarles Emergency Medicine Resident [facility] 11/30/2023 10:16 AM INTENSIVE CARE UNIT Resident [...] Bank Sample Expiration 11/28/2023,2359 Arm Band Number [id number] ABO/Rh A POSITIVE Antibody Screen NEGATIVE Unit Number [id number] Component Leukocyte Reduced Red Cell Unit Divison 00 Dispense Status Blood Bank TRANSFUSED Unit Issue Date/Time Product Code Blood Bank [id number] Blood Bank Unit Type and Rh A POS Blood Bank ISBT Product Blood Type 6200 Blood Bank Blood Product Expiration Date Transfusion Status OK TO TRANSFUSE Crossmatch Result COMPATIBLE Unit Number [id number] Component Leukocyte Reduced Red Cell Unit Divison 00 Dispense Status Blood Bank TRANSFUSED Unit Issue Date/Time 117866608670 Product Code Blood Bank [id number] Blood Bank Unit Type and Rh A POS Blood Bank ISBT Product Blood Type 6200 Blood Bank Blood Product Expiration Date Transfusion Status OK TO TRANSFUSE Crossmatch Result COMPATIBLE Unit Number [id number] Component Leukocyte Reduced Red Cell Unit Divison Dispense Status Blood Bank TRANSFUSED Unit Issue Date/Time 966628572701 Product Code Blood Bank [id number] Blood Bank Unit Type and Rh A POS Blood Bank ISBT Product Blood Type 6200 Blood Bank Blood Product Expiration Date Transfusion Status OK TO TRANSFUSE Crossmatch Result COMPATIBLE TYPE AND SCREEN Result Value Ref Range Blood Bank Sample Expiration 12/02/2023,2359 Arm Band Number [id number] ABO/Rh A POSITIVE Antibody Screen NEGATIVE Unit Number [id number] Component Leukocyte Reduced Red Cell Unit Divison 00 Dispense Status Blood Bank TRANSFUSED Unit Issue Date/Time 913350642410 Product Code Blood Bank I5972Q81 Blood Bank Unit Type and Rh A POS Blood Bank ISBT Product Blood Type 6200 Blood Bank Blood Product Expiration Date Transfusion Status OK TO TRANSFUSE Crossmatch Result COMPATIBLE Unit Number [id number] Component Leukocyte Reduced Red Cell Unit Divison 00 Dispense Status Blood Bank TRANSFUSED Unit Issue Date/Time 539540937557 Product Code Blood Bank [id number] Blood Bank Unit Type and Rh A POS Blood Bank ISBT Product Blood Type 6200 Blood Bank Blood Product Expiration Date Transfusion Status OK TO TRANSFUSE Crossmatch Result COMPATIBLE Unit Number [id number] Component Leukocyte Reduced Red Cell Unit Divison 00 Dispense Status Blood Bank ISSUED Unit Issue Date/Time 698009540254 Product Code Blood Bank [id number] Blood Bank Unit Type and Rh A [...] Disposition: Patient is appropriate for transfer to [facility], continued evaluation By GI. DISPOSITION: [...] degrees Ulcer prophylaxis: [x] PPI Agent, [] A6Mxcwy, [] Sucralfate, [] Other: Glycemic control: Controlled Spontaneous breathing trial: Not indicated Bowel regimen/urine output: Continue to monitor Indwelling catheter/lines: Bilateral peripheral IV De-escalation: Transfer to [facility] Gino Quarles DO Emergency Medicine Resident 11/30/23 8:15 AM Associated attestation - Arnaud Bryant MD - 11/30/2023 8:08 PM EDT Attending Physician Statement I have discussed the case of Jenny Ewing, including pertinent history and exam findings with the resident/fellow/medical student/LEDGER POSTER/PA. I have seen and examined the patient and the jiménez elements of the encounter have been performed by me. I agree with the assessment, plan and orders as documented by the resident/fellow/medical student/LEDGER POSTER/PA With changes made to the note as needed. Pt was seen during rounds. Review of Systems: In addition to the pertinent positives and negatives as stated within HPI and the review of systems as documented in their notes, all other systems were reviewed when able to and are reported negative. Please see my attestation for the H&P Arnaud Bryant MD 11/30/2023 8:[address] [facility] Gastroenterology Progress Note Jenny Ewing is [...] results for input(s): TIBC , FERRITIN , IAEKNFHX90 , FOLATE , OCCULTBLD in the last [...] contact me with any questions or concerns. [facility], [facility] [phone] 11/30/2023 7:54 AM Estimated time of 20 [...] Care Planning Advance Care Planning Inpatient Note [facility] Department Today's Date: 11/29/2023 Unit: MARY CAR [...] Planning Documents (Patient Wishes): Healthcare Power of Diesel Trailer Mechanic/Advance Directive Appointment of Health Care Agent Assessment: [...] need for IR intervention. All calls through [employer] would ring but unable to be connected. [...] from the original note were not included. [facility] Office: [phone] Alvin Ma DO, Erick Burns DO, Varghese [...] Lugo MD, Bruce Pozo MD, Aida Montemayor, RECOVERY COORDINATOR, Nereyda Patiño, RECOVERY COORDINATOR, Vito Calabrese, RECOVERY COORDINATOR, Karime Keane, AAYUSH, Halima Mason, RECOVERY COORDINATOR, Carmen Orozco, RECOVERY COORDINATOR, Kathy Flores, RECOVERY COORDINATOR, Farnaz Lucas, RECOVERY COORDINATOR, Maricel Burger, PA-C, Alicia Veliz, PA-C, Olivia Stiles, RECOVERY COORDINATOR, Ying Singleton, RECOVERY COORDINATOR, Vikas Laird, RECOVERY COORDINATOR, Mira Pina, RECOVERY COORDINATOR, Briana Lim, RECOVERY COORDINATOR, Shirley Johnson, [facility], Jenny Denise, RECOVERY COORDINATOR, Jasmine Leong, RECOVERY COORDINATOR, Janice Perla, RECOVERY COORDINATOR [facility] IN-PATIENT SERVICE [facility] Progress Note 11/29/2023 9:01 AM Name: Jenny Ewing Acct: [id number] Room: [address] [place] [address] Day: 4 Admit Date: 11/25/2023 4:07 AM [...] of 6.6. received 1 unit transfusion at [facility]. She has not been able to hop picker her medications from prior discharge from [facility]. They were sent to her pharmacy [...] infarction (HCC), COPD (chronic obstructive pulmonary disease) ([facility]), Depression, History of blood transfusion, and Thyroid [...] input(s): PROT , LABALBU , LABA1C , Y0VJUKA , Y6QARWV , FT4 , TSH , AST , ALT , LDH , GGT , ALKPHOS , BILITOT , BILIDIR , AMMONIA , AMYLASE , LIPASE , LACTATE , CHOL , HDL , CHOLHDLRATIO , TRIG , VLDL , TNA89OM , PHENYTOIN , PHENYF , URICACID , POCGLU in the last 72 hours. Invalid input(s): LABGGT , LDLCHOLESTEROL ABG:No results found for: POCPH , PHART , PH , POCPCO2 , OMX3KSE , PCO2 , POCPO2 , PO2ART , PO2 , POCHCO3 , KUB5XXC , HCO3 , NBEA , PBEA , BEART , BE , THGBART , THB , GWC1IOM , HXWD7YIB , C0DFRZZC , O2SAT , FIO2 No results found [...] Patient was having increased bouts of diarrhea. LEDGER POSTER notified. Imodium ordered. Images from the original note were not included. [facility] Office: [phone] Alvin Ma DO, Erick Burns DO, Varghese [...] Montemayor, OSVALDO, Nereyda Patiño CNP, Vito Calabrese, RECOVERY COORDINATOR, Karime Keane, AAYUSH, Halima Mason, RECOVERY COORDINATOR, Carmen Orozco, RECOVERY COORDINATOR, Kathy Flores, RECOVERY COORDINATOR, Farnaz Lucas, RECOVERY COORDINATOR, Maricel Burger PA-C, Alicia Veliz PA-C, Olivia Stiles, RECOVERY COORDINATOR, Ying Singleton, RECOVERY COORDINATOR, Vikas Laird, RECOVERY COORDINATOR, Mira Pina, RECOVERY COORDINATOR, Briana Lim, RECOVERY COORDINATOR, Shirley Johnson, PRESSURIZER, Jenny Denise, RECOVERY COORDINATOR, Jasmine Leong, RECOVERY COORDINATOR, Janice Perla CNP [facility] IN-PATIENT SERVICE [facility] Progress Note 11/28/2023 9:54 AM Name: Jenny Ewing Acct: [id number] Room: 0431/0431-01 Day: 3 Admit Date: 11/25/2023 [...] of 6.6. received 1 unit transfusion at [facility]. She has not been able to hop picker her medications from prior discharge from [facility]. They were sent to her pharmacy [...] input(s): PROT , LABALBU , LABA1C , G2UTQYF , S3YNUAX , FT4 , TSH , AST , ALT , LDH , GGT , ALKPHOS , BILITOT , BILIDIR , AMMONIA , AMYLASE , LIPASE , LACTATE , CHOL , HDL , CHOLHDLRATIO , TRIG , VLDL , GKL00XG , PHENYTOIN , PHENYF , URICACID , POCGLU in the last 72 hours. Invalid input(s): LABGGT , LDLCHOLESTEROL ABG:No results found for: POCPH , PHART , PH , POCPCO2 , CEL7IVF , PCO2 , POCPO2 , PO2ART , PO2 , POCHCO3 , BNJ5EZF , HCO3 , NBEA , PBEA , BEART , BE , THGBART , THB , USE4JRH , BEKW8AQV , U5ZWXWDL , O2SAT , FIO2 No results found [...] IMPLEMENT AEROSOL/MDI PROTOCOL [x] PATIENT EDUCATION NEEDED [facility]'s Gastroenterology Progress Note Jenny Ewing is [...] the chart review patient initially presented to [facility] with a complaint of fall secondary to fatigue and feeling weak, during that time the EMS noticed that patient is having black-colored stools the workup done in the outlying facility ruled out any stroke and patient did not hit her head when she fell as well. Labs in the [facility] are consistent with critically low hemoglobin about 4.8 g where she received 1 unit of transfusion later transferred to the [facility] for further evaluation. Patient is admitted [...] paper charts the patient has been to [facility] 10 days back for GI bleed. They have done EGD and found duodenal ulcer and was clipped. She was not able to hop picker her medications after the discharge from the [facility]. VITALS: BP 128/64 Pulse (!) 117 Temp [...] results for input(s): TIBC , FERRITIN , LSKKJSXE21 , FOLATE , OCCULTBLD in the last [...] contact me with any questions or concerns. [facility] Gastroenterology Abhishek Malina Bryant MD [phone] 11/28/2023 7:45 AM Estimated time of mins [...] from the original note were not included. [facility] Office: [phone] Alvin Ma DO, Erick Burns DO, Varghese Abreu DO, Randy Zelaya DO, Raz Monzon MD, Tiara Quintana MD, Lianet Murcia MD, Nicolle Cardoso MD, Ray De La Cruz MD, Kathi Ibanez MD, Diana Joseph MD, Yoselin De La Paz DO, Osvlado Cortes MD, Patrick Mcbride MD, Jesus Ma DO, Amira King MD, Grabiel Benedict, DO, Rubi Frias MD, Teresa Queen MD, Susan Collins MD, Carol Abreu MD, Ehsan Palacio MD, Elma Tejada MD, Elgin Young MD, Kelsie Oneill MD, Klaus Yeung MD, Deanna Coyle MD, Carlos Jaquez DO, Reynaldo Hameed DO, Jie Lugo MD, Bruce Pozo MD, Aida Montemayor, RECOVERY COORDINATOR, Nereyda Patiño, RECOVERY COORDINATOR, Vito Calabrese, RECOVERY COORDINATOR, Karime Keane, [facility], Halima Mason, RECOVERY COORDINATOR, Carmen Orozco, RECOVERY COORDINATOR, Kathy Flores, RECOVERY COORDINATOR, Farnaz Lucas, RECOVERY COORDINATOR, Maricel Burger, PA-C, Alicia Veliz, PA-C, Olivia Stiles, RECOVERY COORDINATOR, Ying Singleton, RECOVERY COORDINATOR, Vikas Laird, RECOVERY COORDINATOR, Mira Pina, RECOVERY COORDINATOR, Briana Lim, RECOVERY COORDINATOR, Shirley Johnson, PRESSURIZER, Jenny Denise, RECOVERY COORDINATOR, Jasmine Leong, RECOVERY COORDINATOR, Janice Perla, RECOVERY COORDINATOR [facility] IN-PATIENT SERVICE [facility] Progress Note 11/27/2023 9:39 AM Name: Jenny Ewing Acct: [id number] Room: [facility]/0431-01 Day: 2 Admit Date: 11/25/2023 [...] of 6.6. received 1 unit transfusion at [facility]. She has not been able to hop picker her medications from prior discharge from [facility]. They were sent to her pharmacy [...] infarction (HCC), COPD (chronic obstructive pulmonary disease) ([facility]), Depression, History of blood transfusion, and Thyroid [...] input(s): PROT , LABALBU , LABA1C , R9VVXGS , F9RFKRT , FT4 , TSH , AST , ALT , LDH , GGT , ALKPHOS , BILITOT , BILIDIR , AMMONIA , AMYLASE , LIPASE , LACTATE , CHOL , HDL , CHOLHDLRATIO , TRIG , VLDL , LNM24FW , PHENYTOIN , PHENYF , URICACID , POCGLU in the last 72 hours. Invalid input(s): LABGGT , LDLCHOLESTEROL ABG:No results found for: POCPH , PHART , PH , POCPCO2 , MAA5UWX , PCO2 , POCPO2 , PO2ART , PO2 , POCHCO3 , ULA2TRE , HCO3 , NBEA , PBEA , BEART , BE , THGBART , THB , FMS5OVM , WJND1TFP , D8RDXOKA , O2SAT , FIO2 No results found [...] PRN Sleeping difficulty Started on Trazodone nightly Deanna Coyle MD 11/27/2023 9:39 AM [facility]'s Gastroenterology Progress Note Jenny Ewing is [...] the chart review patient initially presented to [facility] with a complaint of fall secondary to fatigue and feeling weak, during that time the EMS noticed that patient is having black-colored stools the workup done in the outlying facility ruled out any stroke and patient did not hit her head when she fell as well. Labs in the [facility] are consistent with critically low hemoglobin about 4.8 g where she received 1 unit of transfusion later transferred to the [facility] for further evaluation. Patient is admitted [...] paper charts the patient has been to [facility] 10 days back for GI bleed. They have done EGD and found duodenal ulcer and was clipped. She was not able to hop picker her medications after the discharge from the [facility]. VITALS: BP 116/69 Pulse 77 Temp 97.5 [...] contact me with any questions or concerns. [facility] Gastroenterology [facility] Malina Bryant MD [phone] 11/27/2023 8:27 AM Estimated time of mins [...] Positive Nutrition Screen (wt loss, poor po port captain) Nutrition Recommendations/Plan: Advance diet as medically able [...] Unable to assess Fluid Accumulation: Mild Extremities Public Defender Strength: Not Performed Nutrition Assessment: 73 yo F adm GI bleed. PMH significant for GERD. Pt s/p EGD with duodenal ulcer repair (11/24). 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 Per pt, believes she had a 20 [...] Measures: Height: 160 cm (5' 2.99 ) Orange Body Weight (IBW): 115 lbs (52 kg) [...] from the original note were not included. [facility] Office: [phone] Alvin Ma DO, Erick Burns DO, Varghese [...] Lugo MD, Bruce Pozo MD, Aida Montemayor, RECOVERY COORDINATOR, Nereyda Patiño, RECOVERY COORDINATOR, Vito Calabrese, RECOVERY COORDINATOR, Karime Keane, [facility], Halima Mason, RECOVERY COORDINATOR, Carmen Orozco, RECOVERY COORDINATOR, Kathy Flores, RECOVERY COORDINATOR, Farnaz Lucas, RECOVERY COORDINATOR, ARTUR ColonC, ARTUR RodriguezC, Olivia Stiles, RECOVERY COORDINATOR, Ying Singleton, RECOVERY COORDINATOR, Vikas Laird, RECOVERY COORDINATOR, Mira Pina, RECOVERY COORDINATOR, Briana Lim, RECOVERY COORDINATOR, Shirley Johnson, [facility], Jenny Denise, RECOVERY COORDINATOR, Jasmine Leong, RECOVERY COORDINATOR, Janice Perla, RECOVERY COORDINATOR [facility] IN-PATIENT SERVICE [facility] Progress Note 11/26/2023 11:14 AM Name: Jenny Ewing Acct: [id number] Room: [facility] Day: 1 Admit Date: 11/25/2023 4:07 AM [...] of 6.6. received 1 unit transfusion at [facility]. She has not been able to hop picker her medications from prior discharge from [facility]. They were sent to her pharmacy [...] infarction (HCC), COPD (chronic obstructive pulmonary disease) ([facility]), Depression, History of blood transfusion, and Thyroid [...] input(s): PROT , LABALBU , LABA1C , I7BMCNE , L8URCBI , FT4 , TSH , AST , ALT , LDH , GGT , ALKPHOS , BILITOT , BILIDIR , AMMONIA , AMYLASE , LIPASE , LACTATE , CHOL , HDL , CHOLHDLRATIO , TRIG , VLDL , YTC91RU , PHENYTOIN , PHENYF , URICACID , POCGLU in the last 72 hours. Invalid input(s): LABGGT , LDLCHOLESTEROL ABG:No results found for: POCPH , PHART , PH , POCPCO2 , HOB9WGQ , PCO2 , POCPO2 , PO2ART , PO2 , POCHCO3 , ZNO3ULD , HCO3 , NBEA , PBEA , BEART , BE , THGBART , THB , DZT0SRQ , QWTJ2CFU , X2YSLFWQ , O2SAT , FIO2 No results found [...] Midodrine Deanna Coyle MD 11/26/2023 11:14 AM [facility]'s Gastroenterology Progress Note Jenny Ewing is [...] the chart review patient initially presented to [facility] with a complaint of fall secondary to fatigue and feeling weak, during that time the EMS noticed that patient is having black-colored stools the workup done in the outlying facility ruled out any stroke and patient did not hit her head when she fell as well. Labs in the [facility] are consistent with critically low hemoglobin about 4.8 g where she received 1 unit of transfusion later transferred to the [facility] for further evaluation. Patient is admitted [...] paper charts the patient has been to [facility] 10 days back for GI bleed. They have done EGD and found duodenal ulcer and was clipped. She was not able to hop picker her medications after the discharge from the [facility]. VITALS: BP 108/61 Pulse 78 Temp 98.4 [...] contact me with any questions or concerns. [facility] Gastroenterology [facility] Malina Bryant MD [phone] 11/26/2023 8:00 AM Estimated time of mins [...] new orders. documented in this encounter [facility] 12-02-2023 Hospital Discharge instructions Corinna Schmidt RN - 12/02/2023 9:46 AM EDT Continuity of Care Form Patient Name: Jenny Ewing : 1950 Admit date: 11/25/2023 Discharge date: 12/03/2023 Code Status Order: Full Code Advance Directives: Advance Care Flowsheet Documentation Date/Time Healthcare Directive Type of Healthcare Directive Copy in Chart Healthcare Agent Appointed Healthcare Agent's Name Healthcare Agent's Phone Number 12/01/23 0734 No, patient does not have an advance directive for healthcare treatment -- -- -- -- -- 11/25/23 1429 No, patient does not have an advance directive for healthcare treatment -- -- -- -- -- Admitting Physician: No admitting provider for patient encounter. PCP: No primary care provider on file. Discharging Nurse: IGOR [facility] Discharging [facility] Unit/Room#: Discharging Unit Phone Number: [phone] Emergency Contact: Extended Emergency Contact Information Primary Emergency Contact: Pearl Julien Relation: Child Secondary Emergency Contact: Radha Ventura Mobile Relation: Friend Front End Developer needed? No Past Surgical History: Past Surgical History: Procedure Laterality Date SECTION x2 CHOLECYSTECTOMY COLONOSCOPY ENDOSCOPY, COLON, DIAGNOSTIC ESOPHAGOGASTRODUODENOSCOPY N/A 11/25/2023 ESOPHAGOGASTRODUODENOSCOPY 12/01/2023 EYE SURGERY FRACTURE SURGERY HYSTERECTOMY (CERVIX STATUS UNKNOWN) IR EMBOLIZATION HEMORRHAGE 11/27/2023 IR EMBOLIZATION HEMORRHAGE 11/27/2023 Jorge Russo MD [facility] SPECIAL PROCEDURES SKIN BIOPSY UPPER GASTROINTESTINAL ENDOSCOPY N/A 11/25/2023 *ADD ON* ESOPHAGOGASTRODUODENOSCOPY control hemorrhage performed by Nicky Ugarte MD at [facility] OR Immunization History: Immunization History Administered Date(s) [...] Assisted Dressing Assisted Toileting Assisted Feeding Assisted Building Construction Estimator Assisted Med Delivery whole Wound Care Documentation [...] NOT a DME order): walker Other Treatments: long term, pt would like to speak with her group social worker from [facility] office was closed on attempt 12/02 Patient's personal belongings (please select all that are sent with patient): Frantz RN SIGNATURE: CASE MANAGEMENT/SOCIAL WORK SECTION Inpatient Status Date: Readmission Risk Assessment Score: Readmission Risk Risk of Unplanned Readmission: 11 Discharging to Facility/ Agency Name: [facility] Address: Phone: Fax: [employer]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 Monitor hemoglobin follow-up with PCP and GI. CBC 03/05/2024 Physician Certification: I certify the above information and transfer of Jenny Ewing is necessary for the continuing treatment of the diagnosis listed and that she requires long term facility for less 30 days. Update Admission H&P: No change in H&P PHYSICIAN SIGNATURE: documented in this encounter [facility] 11-28-2023 Note PROCEDURE: IR EMBOLIZATION VASCULAR ANY HEMORRHAGE 11/27/2023 HISTORY: ORDERING SYSTEM PROVIDED HISTORY: Embolization of GDA/GI bleed TECHNOLOGIST PROVIDED HISTORY: Embolization of GDA/GI bleed CONTRAST: Isovue 370-110 mL SEDATION: Fentanyl 50 mcg IV for discomfort. Medications were provided and recorded by Radiology nurses. FLUOROSCOPY DOSE AND TYPE: Fluoroscopy time-15.7 minutes. Radiation Exposure Index: DAP cGy*m2, 04261 DESCRIPTION OF PROCEDURE: Arteries interrogated: Celiac, GDA, [...] for a 0.035 inch wire and 5 Solomon Islander introducer sheath. Randal 5 Solomon Islander x 65 cm catheter was introduced and the celiac artery catheterize; hand celiac angiography was performed. A 0.035 inch glidewire was manipulated into the distal hepatic arteries, catheter exchanged for a 5 [place]er Cobra glide catheter which was manipulated into the origin GDA. Digital angiography was then performed. [place] delivery microcatheter 45 degree tip was then [...] removed. Subsequent hand injection via the 5 [place]er catheter the proper hepatic was performed. The guide catheter was removed, and the Randal catheter reinserted. Celiac and SMA digital angiography were then performed. The Randal catheter was removed. Hand digital angiography right iliofemoral vessels was performed at the groin. The right groin was re-prepped, and a 5 [place] Islander Vascade closure device was deployed right LABOR CONTRACTOR. The patient tolerated procedure well and there [...] or site of bleeding identified. 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 Interpreted by: Jorge Russo MD Signed by: Jorge Russo MD 11/28/23 Final result [facility] 11-28-2023 Note PROCEDURE: IR EMBOLIZATION VASCULAR ANY HEMORRHAGE 11/27/2023 HISTORY: ORDERING SYSTEM PROVIDED HISTORY: Embolization of GDA/GI bleed TECHNOLOGIST PROVIDED HISTORY: Embolization of GDA/GI bleed CONTRAST: Isovue 370-110 mL SEDATION: Fentanyl 50 mcg IV for discomfort. Medications were provided and recorded by Radiology nurses. FLUOROSCOPY DOSE AND TYPE: Fluoroscopy time-15.7 minutes. Radiation Exposure Index: DAP cGy*m2, 57665 DESCRIPTION OF PROCEDURE: Arteries interrogated: Celiac, GDA, [...] for a 0.035 inch wire and 5 [place]er introducer sheath. Randal 5 [place]er x 65 cm catheter was introduced and the celiac artery catheterize; hand celiac angiography was performed. A 0.035 inch glidewire was manipulated into the distal hepatic arteries, catheter exchanged for a 5 [place]er Cobra glide catheter which was manipulated into the origin GDA. Digital angiography was then performed. [place] delivery microcatheter 45 degree tip was then [...] removed. Subsequent hand injection via the 5 [place]er catheter the proper hepatic was performed. The guide catheter was removed, and the Randal catheter reinserted. Celiac and SMA digital angiography were then performed. The Randal catheter was removed. Hand digital angiography right iliofemoral vessels was performed at the groin. The right groin was re-prepped, and a 5 [place]er Vascade closure device was deployed right LABOR CONTRACTOR. The patient tolerated procedure well and there [...] or site of bleeding identified. 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 PN RIS CONSOLIDATED 11-20-2023 Progress note Note Date/Time November 20, 2023 11:40am [facility] [address] [place] [address] Hospitalist Progress Note Signed Patient: Jenny Ewing MR#: [id number] : 1950 Acct:[id number] Age/Sex: 73 / F Adm Date: 4 Loc: Room: [address] [place] [address] Type: ADM IN Attending Dr: Jaspal Whalen [...] signed by Jaspal Whalen MD> 11/20/23 1140 [facility] Work Phone: 1(340) 531-470304-25-2024 Progress note Author Frantz Nieves [facility] November 19, 2023 1:51pm Note Date/Time November 19, 2023 11: 13am [facility] [address] [place] [address] Hospitalist Progress Note Signed Patient: Jenny Ewing MR#: [id number] : 1950 Acct:[id number] Age/Sex: 73 / F Adm Date: 4 Loc: Room: [address] [place] [address] Type: ADM IN Attending Dr: Frantz Nieves [...] to 7.1 ? 2 units PRBC at [place], prior to transfer here, received another 2 [...] signed by DO DENISE Mckeon> 11/19/23 1113 [facility] Work Phone: 1(992) 900-822904-25-2024 Progress note Author Seun Freitas [facility] November 19, 2023 9:54am Note Date/Time November 19, 2023 9:5 4am [facility] [address] [place] [address] Gastroenterology PN Signed Patient: Jenny Ewing MR#: [id number] : 1950 Acct:[id number] Age/Sex: 73 / F Adm Date: 4 Loc: Room: [address] [place] [address] Type: ADM IN Attending Dr: Frantz Nieves [...] signed by Seun Freitas MD> 11/19/23 0954 [facility] Work Phone: 1(631) 291-586804-24-2024 [facility] Progress note Author Frantz Nieves [facility] November 18, 2023 10:04am Note Date/Time November 18, 2023 10: 04am [facility] [address] [place] [address] Hospitalist Progress Note Signed Patient: Jenny Ewing MR#: [id number] : 1950 Acct:[id number] Age/Sex: 73 / F Adm Date: 4 Loc: Room: [id number] Type: ADM IN Attending Dr: Frantz Nieves [...] 25 Mg Tablet PO 11/17/24 08:59 QAM [facility] Tramadol HCl 100 mg 11/17/23 22:00 11/17/23 22:25 Tramadol 50 Mg Tablet PO 05/15/24 21:59 Not Given QID [facility] A&P - Hospitalist Assessment/Plan (1) Acute anemia: [...] signed by Frantz Nieves DO> 11/18/23 1004 [facility] Work Phone: 1(392) 121-978404-24-2024 Consult note Author Seun Freitas [facility] November 18, 2023 9:03am Note Date/Time November 17, 2023 4:1 6pm [facility] [address] [place] [address] Gastroenterology Consult Note Signed Patient: Jenny Ewing MR#: [id number] : 1950 Acct:[id number] Age/Sex: 73 / F Adm Date: 4 Loc: Room: [address] [place] [address] Type: ADM IN Attending Dr: Frantz Nieves [...] negative unless noted below or in HPI [facility] Medical History (Updated 11/18/23 @ 09:03 [...] use + Cigarette smoking Hb: 4.8 at [place] Patient is hemodynamically stable -Trend CBC and transfuse as needed, ensure two large bore IVs at least. -Protonix 40 mg twice daily -Avoid NSAIDs -Goal Hgb >7.0 -Plan for EGD today. Please keep the patient n.p.o. after midnight Documented By: Seun Freitas MD 11/17/23 1612 Signed By: <Electronically signed by Seun Freitas MD> 11/18/23 0903 [facility] Work Phone: 1(613) 994-969004-23-2024 History and physical note Author Frantz Nieves [facility] November 17, 2023 6:33pm Note Date/Time November 17, 2023 3:5 9pm [facility] [address] [place] [address] Hospitalist H&P Signed Patient: Jenny Ewing MR#: [id number] : 1950 Acct:[id number] Age/Sex: 73 / F Adm Date: 4 Loc: Room: [address] [place] [address] Type: ADM IN Attending Dr: Frantz Nieves DO Copies to: Dale Mckeon DO, RES MD Frantz Wyman DO~ HPI DATE OF EXAMINATION: 11/17/23 CHIEF COMPLAINT: Anemia HISTORY OF PRESENT ILLNESS: 73-year-old female transferred from [facility] for severe anemia. 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 Thismorning the patient had acute episode of weakness in her lower extremities afterwhich she fell and hit the back of her neck and head without LOC. She was brought to the [place] ED by EMS. CT head, brain, and [...] mg Protonix. She was then transferred to [facility] for further workup of anemia and GI [...] x3, normal speech, appropriate mood and affect [facility] Medical History (Updated 11/17/23 @ 16:10 [...] (6) Weakness: Plan 73-year-old female transferred from [facility] for severe anemia, weakness, and GI bleed. [...] GI bleed. Received 2 units PRBC at [place], 500 mL NS, ?Recheck H&H ?Continue Protonix [...] by DO WALKER Dale Mckeon> 11/17/23 1623 [facility] Work Phone: 1(320) 664-579001-30-2024 History of Present illness Narrative* Catracho Sheriff [...] - 301 mOsmol/kg Final Comment: Performed at: [address] [id number] Fitting Room Checker: Arleen Wong MD, Phone: [phone] OSMOLALITY, URINE 08/11/2023 552 . mOsmol/kg Final Comment: 24 hr : 300 - 900 Random: 50 - 1400 After 12hr fluid restriction: >850 Performed at: [facility] [employer] [id number] Fitting Room Checker: Arleen Wong MD, Phone: [phone] [employer] Result Encounter on 08/04/2023 Component Date [...] 0.55 - 1.02 mg/dL Final [facility] EGFR-AF GAMBIAN 08/04/2023 >60 >=60 Final [facility] EGFR-NON AF GAMBIAN 08/04/2023 >60 >=60 Final BUN CREATININE RATIO [...] to the emergency room. documented in this encounterNOAZ HealthcareDischarge summary Author Jaspal Whalen [facility] November 21, 2023 1:44pm Note Date/Time November 21, 2023 1:4 4pm [facility] [address] [place] [address] Discharge Summary Signed Patient: Jenny Ewing MR#: [id number] : 1950 Acct:[id number] Age/Sex: 73 / F Adm Date: 4 Loc: Room: [address] [place] [address]: Jaspal Whalen MD Copies to: [...] 73-year-old female, who was transferred to from [facility] where she presented with weakness in the [...] 4 weeks then 40 mg po daily; [facility] dispense accordingly polysaccharide iron complex 150 mg [...] signed by Jaspal Whalen MD> 11/21/23 1344 [facility] Work Phone: Evaluation note* Diagnosis Chronic [...] Weakness acute Weight loss, unintentional a cute [facility] Work Phone: Evaluation note* Diagnosis GI [...] Tobacco use disorder PAF (paroxysmal atrial fibrillation) ([facility]) Atrial fibrillation documented in this encounter [facility] HEALTHEvaluation note* Diagnosis Duodenal ulcer Duodenal ulcer, unspecified as acute or chronic, without hemorrhage, perforation, or obstruction documented [facility] Diagnosis Venous stasis ulcer of other part of lower leg limited to breakdown of skin without varicose veins, unspecified laterality (CMS/HCC)- Primary Cellulitis of lower extremity, unspecified laterality Venous stasis dermatitis of both lower extremities documented in this encounter [facility] HealthcareEvaluation note* Diagnosis Stasis dermatitis of both legs- Primary Non-pressure chronic ulcer of right lower leg, limited to breakdown of skin (CMS/HCC) 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 HealthcareEvaluation note* Diagnosis Cellulitis of lower extremity, unspecified laterality- Primary Abscess of left lower leg Venous ulcer of lower extremity due to chronic peripheral venous hypertension (HCC) (CMS/HCC) Non-pressure ulcer of lower extremity, limited to breakdown of skin, unspecified laterality (CMS/HCC) documented in this encounter [facility] HealthcareEvaluation note* Diagnosis Acquired hypothyroidism (CMS/HCC) Unspecified hypothyroidism documented in this encounter [facility]* Diagnosis Acquired hypothyroidism (CMS/HCC) Unspecified hypothyroidism documented in this encounter [facility]* Diagnosis Mucopurulent chronic bronchitis (CMS/HCC)- Primary Mucopurulent chronic bronchitis documented in this encounter 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 ACP-Advance Directive 12/04/2023 1:41 PM [...] and content) DATE CREATED AUTHOR 08/29/2022 [facility] DATE CREATED AUTHOR AUTHOR'S ORGANIZ ATION 11/24/2023 [facility] y[facility] DATE CREATED AUTHOR AUTHOR'S ORGANIZ ATION 12/11/2023 [facility] DATE CREATED AUTHOR AUTHOR'S ORGANIZ ATION 07/16/2024 [facility] d[facility] DATE CREATED AUTHOR AUTHOR'S ORGANIZ ATION 08/04/2024 [facility] Reason for Visit (unrecogniz ed section and content) Reason Comments Recurrent Skin Infections Specialty Diagnoses / Procedures Referred By Contac t Referred To Contact Diagnoses GI bleed GI bleed [facility] [address] [place] [address] [facility] [address] [place] [address] Referral ID Status Reason Start Date Expiration Date Visits Re quested Visits Authorized [id number] 1 1 Specialty Diagnoses / Procedures Referred By Contac t Referred To Contact Diagnoses Duodenal ulcer Duodenal ulcer [K26.9] Procedures ID EGD TRANSORAL BIOPSY SINGLE/MULTIPLE ESOPHAGOGASTRODUODENOSCOPY BIOPSY Nicky Ugarte MD [address] [facility] [address] [place] [address] [facility] [address] [place] [address] Referral ID Status Reason Start Date Expiration Date Visits Re quested Visits Authorized [id number] 1 1 Reason Comments Wound Check Reason Comments wound check Reason Comments Wound Infection Reason Comments Med Refill Reason Comments Anxiety Pain Care Teams (unrecognized sec tion and content) Ironer Relationship Specialty Start Date End Date Catracho Sheriff MD [address] [place] [address] PCP - [employer] 07/27/22 Catracho Sheriff MD [address] [facility] [place] [phone] PCP - General Family Medicine 01/05/23 Team [...] Other Provider Active Start: November 17, 2023 Ironer Relationship Specialty Start Date End Date Catracho Sheriff MD [address] [facility] [place] [address] (Fax) PCP - General 01/29/24 Ironer Relationship Specialty Start Date End Date Catracho Sheriff MD [address] [facility] [place] [address] (Fax) PCP - General 01/29/24 Ironer Relationship Specialty Start Date End Date Catracho Sheriff MD [address] [facility] [place] [address] (Fax) PCP - [employer] 07/27/22 Catracho Sheriff MD [address] [place] [address] PCP - General Family Medicine 01/05/23 Payal Gaona DO [address] [place] [address] Referring Physician Neurology 09/03/23 Aimee Truong, RN Registered Nurse Family Medicine 12/23/23 Ironer Relationship Specialty Start Date End Date Catracho Sheriff MD [address] [facility] [place] [address] (Fax) PCP - [employer] 07/27/22 Catracho Sheriff MD [address] [place] [phone] PCP - General Family Medicine 01/05/23 Payal Gaona DO [address] [place] [address] Referring Physician Neurology 09/03/23 Aimee Truong, RN Registered Nurse Family Medicine 12/23/23 Ironer Relationship Specialty Start Date End Date Catracho Sheriff MD [address] [place] [facility] [place] [address] (Fax) PCP - [employer] 07/27/22 Catracho Sheriff MD [address] [place] [address] PCP - General Family Medicine 01/05/23 Payal Gaona DO [address] [place] [address] Referring Physician Neurology 09/03/23 Aimee Truong RN Registered Nurse Family Medicine 12/23/23 Ironer Relationship Specialty Start Date End Date Catracho Sheriff MD [address] [place] [facility] [place] [address] (Fax) PCP - [employer] 07/27/22 Catracho Sheriff MD [address] [place] [address] PCP - General Family Medicine 01/05/23 Payal Gaona DO [address] [place] [address] Referring Physician Neurology 09/03/23 Aimee Truong RN Registered Nurse Family Medicine 12/23/23 Ironer Relationship Specialty Start Date End Date Catracho Sheriff MD [address] [facility] [address] (Fax) PCP - [employer] 07/27/22 Catracho Sheriff MD [address] [place] [place] [address] PCP - General Family Medicine 01/05/23 Payal Gaona DO [address] [place] [address] Referring Physician Neurology 09/03/23 Aimee Truong, RN Registered Nurse Family Medicine 12/23/23 Ironer Relationship Specialty Start Date End Date Catracho Sheriff MD [address] [facility] [address] (Fax) PCP - [employer] 07/27/22 Catracho Sheriff MD [address] [place] [place] [address] PCP - General Family Medicine 01/05/23 Payal Gaona DO [address] [place] [address] Referring Physician Neurology 09/03/23 Aimee Truong, IGOR Registered Nurse Family Medicine 12/23/23 Ironer Relationship Specialty Start Date End Date Catracho Sheriff MD [address] [place] [address] (Fax) PCP - [employer] 07/27/22 Catracho Sheriff MD [address] [place] [address] (Fax) PCP - General Family Medicine 01/05/23 Payal Gaona DO [address] [place] [address] Referring Physician Neurology 09/03/23 Aimee Truong, IGOR Registered Nurse Family Medicine 12/23/23 Ironer Relationship Specialty Start Date End Date Catracho Sheriff MD [address] [place] [address] (Fax) PCP - [employer] 07/27/22 Catracho Sheriff MD [address] [address] (Fax) PCP - General Family Medicine 01/05/23 Payal Gaona DO [address] [place] [address] Referring Physician Neurology 09/03/23 Aimee Truong RN Registered Nurse Family Medicine 12/23/23 Ironer Relationship Specialty Start Date End Date Catracho Sheriff MD [address] [place] [address] (Fax) PCP - [employer] 07/27/22 Catracho Sheriff MD [address] [place] [address] (Fax) PCP - General Family Medicine 01/05/23 Payal Gaona DO [address] [place] [address] Referring Physician Neurology 09/03/23 Aimee Truong, IGOR Registered Nurse Family Medicine 12/23/23 Ironer Relationship Specialty Start Date End Date Catracho Sheriff MD [address] [place] [address] (Fax) PCP - [employer] 07/27/22 Catracho Sheriff MD [address] [place] [address] (Fax) PCP - General Family Medicine 01/05/23 Payal Gaona DO [address] [place] [address] Referring Physician Neurology 09/03/23 Aimee Truong, RN Registered Nurse Family Medicine 12/23/23 Ironer Relationship Specialty Start Date End Date Catracho Sheriff MD [address] [facility] [place] [address] (Fax) PCP - [employer] 07/27/22 Catracho Sheriff MD [address] [place] [phone] PCP - General Family Medicine 01/05/23 Payal Gaona DO [address] [place] [address] Referring Physician Neurology 09/03/23 Aimee Truong RN Registered Nurse Family Medicine 12/23/23 Ironer Relationship Specialty Start Date End Date Catracho Sheriff MD [address] [facility] [address] (Fax) PCP - [employer] 07/27/22 Catracho Sheriff MD [address] [place] [phone] PCP - General Family Medicine 01/05/23 Payal Gaona DO [address] [place] [address] Referring Physician Neurology 09/03/23 Aimee Truong, RN Registered Nurse Family Medicine 12/23/23 Ironer Relationship Specialty Start Date End Date Catracho Sheriff MD [address] [place] [address] (Fax) PCP - [employer] 07/27/22 Catracho Sheriff MD [address] [place] [address] (Fax) PCP - General Family Medicine 01/05/23 Payal Gaona DO [address] [place] [address] Referring Physician Neurology 09/03/23 Aimee Truong, RN Registered Nurse Family Medicine 12/23/23 Ironer Relationship Specialty Start Date End Date Catracho Sheriff MD (Fax) PCP - General 01/29/24 Ironer Relationship Specialty Start Date End Date Catracho Sheriff MD [address] [place] [address] (Fax) PCP - [employer] 07/27/22 Catracho Sheriff MD [address] [place] [address] (Fax) PCP - General Family Medicine 01/05/23 Payal Gaona DO [address] [place] [address] Referring Physician Neurology 09/03/23 Aimee Truong, RN Registered Nurse Family Medicine 12/23/23 Ironer Relationship Specialty Start Date End Date Catracho Sheriff MD [address] [place] [facility] [place] [address] (Fax) PCP - General 01/29/24 Ironer Relationship Specialty Start Date End Date Catracho Sheriff MD [address] [place] [address] (Fax) PCP - [employer] 07/27/22 Catracho Sheriff MD [address] [place] [address] (Fax) PCP - General Family Medicine 01/05/23 Payal Gaona DO [address] [place] [id number] Referring Physician Neurology 09/03/23 Aimee Truong, RN [...] Orders)0900 (Automatically Held - Provider: Annika Autohold)0959 ([facility] Unhold - Provider: Riri Salomon RN)2037 (Given [...] Annika Autohold - Reason: Unreviewed Transfer Orders)0959 ([facility] Unhold - Provider: Riri Salomon RN)1258 (Given [...] Annika Autohold - Reason: Unreviewed Transfer Orders)958 ([facility] Unhold - Provider: Riri Salomon RN) 0.9 [...] if oral route cannot be used. 720 ([facility] Hold - Provider: [facility] Autohold - Reason: Unreviewed Transfer Orders)958 ([facility] Unhold - Provider: Riri Salomon RN) acetaminophen (TYLENOL) tablet 650 mg(Linked Group 1) 650 mg, Oral, EVERY 6 HOURS PRN, Starting on Thu11/25/23 at 0421, Until Discontinued, Pain Mild (1-3), Fever, For temp greater than 100.4 F (38 C), Maximum dose of acetaminophen is 4000 mg from all sources in 24 hours. 720 ([facility] Hold - Provider: Annika Autohold - Reason: Unreviewed Transfer Orders)958 ([facility] Unhold - Provider: Riri Salomon RN) albuterol sulfate HFA (PROVENTIL;VENTOLIN;PROAIR ) 108 (90 Base) MCG/ACT inhaler 2 puff 2 puff, Inhalation, EVERY 6 HOURS PRN, Starting on Thu11/25/23 at 0836, Until Discontinued, Wheezing, Initiate RT Bronchodilator Protocol: Yes - Inpatient Protocol 720 ([facility] Hold - Provider: [facility] Autohold - Reason: Unreviewed Transfer Orders)958 ([facility] Unhold - Provider: Riri Saolmon RN) EPINEPHrine (EPINEPHrine HCL) 1 mg/10 mL [...] at 1031, Until Discontinued, Dry Eyes 07 ([facility] Hold - Provider: Annika Autohold - Reason: Unreviewed Transfer Orders)0959 ([facility] Unhold - Provider: Riri Salomon, IGOR) labetalol [...] Discontinued, Diarrhea, After each loose stool. 0721 ([facility] Hold - Provider: Annika Autohold - Reason: Unreviewed Transfer Orders)0959 ([facility] Unhold - Provider: Riri Salomon RN) LORazepam (ATIVAN) injection 0.5 mg 0.5 mg, IntraVENous, EVERY 4 HOURS PRN, Starting on Thu11/29/23 at 1208, Until Discontinued, Anxiety, Immediately prior to intravenous use, lorazepam Injection must be diluted with at least an equal volume of compatible solution (NS or D5W). 0721 ([facility] Hold - Provider: Annika Autohold - Reason: Unreviewed Transfer Orders)0959 ([facility] Unhold - Provider: Riri Salomon, IGOR)5 (Given [...] for use in Patients with CrCl<30ml/min 0721 ([facility] Hold - Provider: [facility] Autohold - Reason: Unreviewed Transfer Orders)0959 ([facility] Unhold - Provider: Riri Salomon, IGOR) melatonin tablet 3 mg 3 mg, Oral, NIGHTLY PRN, Starting on Thu11/26/23 at 0440, Until Discontinued, Sleep 0721 ([facility] Hold - Provider: [facility] Autohold - Reason: Unreviewed Transfer Orders)0959 ([facility] Unhold - Provider: Riri Salomon RN) 2047 (Given - Provider: Jorge Mcfarland RN) midodrine (PROAMATINE) tablet 10 mg 10 mg, Oral, 3 TIMES DAILY PRN, Starting on Thu11/26/23 at 0434, Until Discontinued, sbp<100, Do not give after 1800 or within 4 hrs of bedtime. 0721 ([facility] Hold - Provider: [facility] Autohold - Reason: Unreviewed Transfer Orders)0959 ([facility] Unhold - Provider: Riri Salomon RN) naloxone [...] if oral route cannot be used. 0721 ([facility] Hold - Provider: Annika Autohold - Reason: Unreviewed Transfer Orders)0959 ([facility] Unhold - Provider: Riri Salomon RN) ondansetron (ZOFRAN-ODT) disintegrating tablet 4 mg(Linked Group 3) 4 mg, Oral, EVERY 8 HOURS PRN, Starting on Thu11/25/23 at 0421, Until Discontinued, Nausea, Vomiting 0721 ([facility] Hold - Provider: [facility] Autohold - Reason: Unreviewed Transfer Orders)0959 ([facility] Unhold - Provider: Riri Salomon RN) potassium [...] dilute if GI adverse effects occur. 0721 ([facility] Hold - Provider: [facility] Autohold - Reason: Unreviewed Transfer Orders)0959 ([facility] Unhold - Provider: Riri Salomon RN) 0900 [...] half and each half swallowed separately. 0721 ([facility] Hold - Provider: Annika Autohold - Reason: Unreviewed Transfer Orders)0959 ([facility] Unhold - Provider: Riri Salomon RN) 0900 [...] with CrCl less than 30 mL/min. 0721 ([facility] Hold - Provider: Annika Autohold - Reason: Unreviewed Transfer Orders)0959 ([facility] Unhold - Provider: Riri Salomon RN) 0900 (See Alternative - Provider: Nicolasa Pacheco RN) sodium chloride (OCEAN) 0.65 % nasal spray 1 spray 1 spray, Each Nostril, PRN, Starting on Thu11/25/23 at 1352, Until Discontinued, Congestion 0721 ([facility] Hold - Provider: nAnika Autohold - Reason: Unreviewed Transfer Orders)0959 ([facility] Unhold - Provider: Riri Salomon RN) sodium [...] patient request 0721 ([facility] Hold - Provider: [facility] Autohold - Reason: Unreviewed Transfer Orders)0959 ([facility] Unhold - Provider: Riri Salomon, IGOR) 0447 [...] BE BASED ON THE PRIMARY CLINICAL RECORDS. [facility]. provides no warranty or guarantee of the accuracy or completeness of information in this document.
[2024-09-29 17:18] LABS: Thyroid Stimulating Hormone 2.013 uIU/mL (0.358-3.740)
[2024-09-29 18:25] LABS: Free T4 1.35 ng/dL (0.76-1.46)
== END 2024-09-29 16:37 | disposition home or self-care (01) ==
LOC: LAB 16:36
PROVIDERS: PCP Family Medicine; Visit Provider Family Medicine
DX: E89.0 Postprocedural hypothyroidism (principal)
CPT/HCPCS: 36415; 84439; 84443

== ENCOUNTER 2025-01-03 21:40 | Observation (INO) | payer MEDICARE, SELFPAY ==
[2025-01-03] VITALS (13 sets, daily range): BP systolic 132–153; BP diastolic 83–89; PULSE 67–97; TEMP 36.6; O2SAT 85–100; BMI 29.1
--- NOTE | 2025-01-03 21:42 | XR_ITS ---
The [address] [address] Patient Name: JOE PEACOCK MRN: [id number] date: 1950 Sex: F Assigned Patient Location: ED.MAIN Current Patient Location: [place] Accession/Order Number: [id number] Exam Date: 01/04/2025 07:07 Report Date: 01/04/2025 07:10 At the request of: BRETT TUBBS MD Procedure: XR chest 1V Plain film chest Single view HISTORY: Fell. Hit back of head. COMPARISON: 05/03/2021 FINDINGS: SUPPORT DEVICES: None POSTSURGICAL CHANGES: None HEART: Within normal limits PULMONARY ALYSSA: Mild hilar prominence MEDIASTINUM: Unremarkable LUNGS AND PLEURA: Acute and chronic groundglass parenchymal densities. No large pleural effusion. No pneumothorax. BONY STRUCTURES: Intact ADDITIONAL FINDINGS None XR/XR chest 1V IMPRESSION: Increasing groundglass basilar parenchymal densities. Consider acute chronic interstitial lung changes. Impression dictated by: Randy Denise M.D. 01/04/2025 7:10 AM Dictation Location: [employer] Electronically authenticated by: [id number] Y Date: 01/04/2025 07:10
--- NOTE | 2025-01-03 21:42 | ECG_ITS ---
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 Measurements Intervals Stokes Rate: 76 P: 66 ID: [id number] QRS: 52 QRSD: 98 T: 77 QT: 368 QTc: 398 Interpretive Statements 1100 Sinus rhythm 9110 normal ECG Compared to ECG 11/24/2023 21:24:02 Sinus arrhythmia no longer present Electronically Signed On 01-04-2025 17:27:52 EDT by KIT GOMEZ M.D.
--- NOTE | 2025-01-03 21:45 | ED.GENADUL1 ---
HPI HPI - General Adult General Chief complaint: Head Injury Stated complaint: fall Time Seen by Provider: 01/03/25 21:41 History of Present Illness HPI narrative: 74-year-old female to the emergency department chief complaint of accidental fall. Patient reports she was going down the stairs in her house when she lost balance and fell. She reports she fell onto her back. She did hit her head. She did not lose consciousness per her report. She denies any numbness, weakness, tingling. No vision changes. She has a mild posterior headache. She denies any neck or back pain that is new. She denies any extremity injury. She denies blood thinner use. She reports that she had some mild head pain as well as some nausea tonight prompting her ED visit. EMS reports that her house was in disarray. A neighbor was present and reported that she has cognitive difficulties but is currently at her baseline. Related Data Home Medications ?Medication ?Instructions ?Recorded ?Confirmed baclofen 20 mg tablet 20 mg PO Q8H 11/17/23 01/03/25 buspirone 15 mg tablet 15 mg PO TID 11/17/23 01/03/25 albuterol sulfate 90 mcg/actuation inhalation 01/03/25 aerosol inhaler duloxetine 20 mg capsule,delayed mg PO 01/03/25 release famotidine 20 mg tablet mg 01/03/25 levothyroxine 150 mcg tablet mcg 01/03/25 levothyroxine 175 mcg tablet mcg 01/03/25 mirtazapine 45 mg tablet mg 01/03/25 spironolactone 100 mg tablet mg 01/03/25 tramadol 50 mg tablet mg 01/03/25 Allergies Allergy/AdvReac Type Severity Reaction Status Date / Time morphine Allergy Mild Nightmare Verified 01/03/25 21:52 moxifloxacin (From Avelox) Allergy Hives Verified 01/03/25 21:52 codeine AdvReac Nightmare Verified 01/03/25 21:52 Opioid HPI Opioid Management Most Recent Opioid Data: Last Pain Scale 3 01/03/25, 21:42 Review of Systems ROS Status of ROS 10 or more systems reviewed and unremarkable except as noted in history and below PFSH PFSH Social History Little interest or pleasure in doing things: not at all Feeling down, depressed, or hopeless: not at all Exam Narrative Exam Narrative: Primary Survey Airway Intact Lung sounds clear and equal bilaterally Pulses full and equal to femoral, radial, and dorsalis pedis bilaterally Heart regular rate and rhythm Skin warm, dry, pink GCS 15 Movement and sensation intact to all extremities Patient Fully Exposed. Mild occipital tenderness. No evidence of traumatic injury. Secondary Survey General: GCS 15; Alert HEENT: Head atraumatic; tenderness to the occipital region; facial bones stable; Eyes normal inspection, Pupils round, 4-2mm blt; No evidence of oropharyngeal trauma; No blood in the nares or septal hematoma; Tympanic Membranes intact, no hemotympanum or drainage Neck: Normal inspection; no midline cervical tenderness; No tracheal deviation; No JVD Resp: Normal breath sounds, no wheeze or crackles; No chest wall tenderness, crepitus, or subcutaneous emphysema; No visible evidence of chest wall trauma; Chest rise symmetric; No respiratory distress Heart: Heart rate and rhythm regular; Carotid, radial, femoral, dorsalis pedis pulses +2 and equal bilaterally; No Murmurs Abdomen: Soft; Non-tender No ecchymosis or visible wounds to abdominal wall; No distention, guarding, rigidity, or rebound; Pelvis stable, no pain on compression MSK: All major joints with normal ROM. No deformities. No bony tenderness. No tenderness or step-offs to palpation of thoracic or lumbar spine; No ecchymosis or wounds to upper or lower back Neuro: Alert and oriented; Sensation intact and symmetric bilaterally; muscle strengths symmetric bilaterally in the upper and lower extremities. Skin: Color normal; No rash; Warm; Dry; stigmata of chronic venous stasis disease in the bilateral lower extremity Constitutional Vital Signs, click to edit/add: Last Vital Signs Temp 97.8 F 01/03/25 21:42 Pulse 69 01/04/25 02:30 Resp 13 01/04/25 02:30 BP 142/97 H 01/04/25 00:13 Pulse Ox 96 01/04/25 02:10 O2 Del Method Room Air 01/03/25 22:06 O2 Flow Rate 3 01/03/25 22:06 Course Vital Signs Vital signs: Vital Signs Temperature 97.8 F 01/03/25 21:42 Pulse Rate 81 01/03/25 21:42 Respiratory Rate 14 01/03/25 21:42 Blood Pressure 132/89 01/03/25 21:42 Pulse Oximetry 85 L 01/03/25 21:42 Oxygen Delivery Method Room Air 01/03/25 21:42 Temperature 97.8 F 01/03/25 21:42 Pulse Rate 69 01/04/25 02:30 Respiratory Rate 13 01/04/25 02:30 Blood Pressure 142/97 H 01/04/25 00:13 Pulse Oximetry 96 01/04/25 02:10 Oxygen Delivery Method Room Air 01/03/25 22:06 Oxygen Delivery Flow Rate 3 01/03/25 22:06 Medical Decision Making MDM Narrative Medical decision making narrative: 74-year-old female to the emergency department chief complaint of accidental fall that occurred around 2 PM. Vital stable, the patient is afebrile. Her neurologic exam is nonfocal. Per EMS report from neighbors she is at her baseline currently. Given her advanced age we will obtain a CT scan of her head and neck. Basic labs are ordered. Zofran for her nausea. Patient agrees with this plan. Lab reviewed and noted. No major abnormalities. CT head: Negative CT cervical spine: Neck EKG without evidence of ischemia or arrhythmia. Normal QTc. Patient remains significantly confused, requires frequent attention from nursing staff. She saturates in the mid 80s on room air. She saturates fine on 3 L nasal cannula. daughter reports that she has oxygen at home she just refuses to wear it so she can smoke. Patient is not appropriate for home at this time per my evaluation of the daughter's impression. Will admit the patient to the hospital for further evaluation and likely placement. Medical Records Medical records reviewed: Yes I reviewed the patient's medical records Lab Data Lab results reviewed: Yes I reviewed the patient's lab results Labs: Lab Results 01/03/25 01/04/25 Range/Units 21:59 00:20 WBC 9.0 (4.0-11.0) 10^3/uL RBC 4.82 (4.20-5.40) 10^6/uL Hgb 15.2 (12.0-16.0) g/dL Hct 45.6 (36.0-48.0) % MCV 94.6 (81.0-99.0) fL MCH 31.5 (26.7-34.0) pg MCHC 33.3 (29.9-35.2) g/dL RDW 14.9 (11.0-15.0) % Plt Count 177 (150-450) 10^3/uL MPV 12.4 (9.5-13.5) fL Neut % (Auto) 67.9 (43.0-75.0) % Lymph % (Auto) 20.7 (20.5-60.0) % [place] % (Auto) 10.0 (1.7-12.0) % Eos % (Auto) 0.7 L (0.9-7.0) % Baso % (Auto) 0.4 (0.2-2.0) % Neut # (Auto) 6.1 (1.4-6.5) 10^3/uL Lymph # (Auto) 1.9 (1.2-3.8) 10^3/uL [place] # (Auto) 0.9 H (0.3-0.8) 10^3/uL Eos # (Auto) 0.1 (0.0-0.7) 10^3/uL Baso # (Auto) 0.0 (0.0-0.1) 10^3/uL Abs Immat Gran (auto) 0.03 (0.00-0.03) 10^3/uL Imm/Tot Granulo (auto) 0.3 (0.0-0.5) % Sodium 132 L (136-145) mmol/L Potassium 4.7 (3.5-5.1) mmol/L Chloride 95 L (98-107) mmol/L Carbon Dioxide 27.2 (21.0-32.0) mmol/L Anion Gap 14.5 BUN 18.0 (7.0-18.0) mg/dL Creatinine 0.88 (0.55-1.02) mg/dL Est GFR ( Amer) >60 (>=60 mL/min/1.73m^2) Est GFR (Non-Af Amer) >60 (>=60 mL/min/1.73m^2) BUN/Creatinine Ratio 20.5 Glucose 121 H (74-106) mg/dL Calcium 9.5 (8.5-10.1) mg/dL Total Bilirubin 0.3 (0.2-1.0) mg/dL AST 20 (15-37) U/L ALT 22 (14-59) U/L Alkaline Phosphatase 110 (46-116) U/L Total Protein 7.9 (6.4-8.2) g/dL Albumin 3.5 (3.4-5.0) g/dL Globulin 4.4 g/dL Albumin/Globulin Ratio 0.8 Urine Color Yellow (YELLOW) Urine Clarity Clear (CLEAR) Urine pH 6.0 (5.0-9.0) Ur Specific Champion 1.015 (1.005-1.025) Urine Protein Negative (NEG/TRACE) mg/dL Urine Glucose (UA) Negative (NEGATIVE) mg/dL Urine Ketones Negative (NEGATIVE) mg/dL Urine Occult Blood Negative (NEGATIVE) Urine Nitrite Negative (NEGATIVE) Urine Bilirubin Negative (NEGATIVE) Urine Urobilinogen 0.2 (0.2-1.0) EU/dL Ur Leukocyte Esterase Negative (NEGATIVE) Urine RBC None seen (0-2) #/HPF Urine WBC 0-2 A (NONE SEEN) #/HPF Ur Squamous Epith Cells Few A (NONE/RARE) #/LPF Urine Crystals None seen (None Seen) #/HPF Urine Bacteria None seen (NONE SEEN) #/HPF Urine Casts Seen A (NONE SEEN) #/LPF Hyaline Casts Rare Urine Mucus None seen (NONE SEEN) Ur Culture Indicated? No Imaging Data CT scan - head: Attestation: I have reviewed the pertinent imaging results. Radiologist's impression: See separate PACS document ECG Data Attestation: I personally reviewed and interpreted this ECG as follows: Discharge Plan Discharge Chief Complaint: Head Injury Clinical Impression: Dementia, Fall, Head injury Patient Disposition: Admitted as Observation Time of Disposition Decision: 02:47 Condition: Good
--- OUTSIDE RECORDS SUMMARY | 2025-01-03 21:50 | XMS_ITS | Encounter Summary ---
Author Organization [facility] Address [address] [place] [address] Care Team Providers Care Naphthalene Operator Helper Name Role Phone Catracho Sheriff MD Unavailable [phone] Catracho Sheriff MD Primary Care Provider [phone] Payal aGona DO Unavailable [phone] Aimee Truong RN Unavailable [phone] Encounter Details Date Type Department Care Team (Late st Contact Info) Description 07/30/2023 Clinisync Result Encounter [facility] Department Unsolicited Catracho Sheriff MD [address] [facility] [address] [place] [address] Social History Tobacco Use Types Packs/Day Years Used Date Smoking Tobacco: Former Cigarettes Alcohol Use Standard Drinks/Week Comments Not Currently 0 (1 standard drink = 0.6 oz pure alcohol) Caffeine intake: drinks decaf PHQ-2 Answer Date Recorded Patient Health Questionnaire-2 Score 0 01/28/2023 Education Answer Date Recorded What is the highest level of school you have completed or the highest degree you have received? High school graduate 02/24/2023 Comments No Sex and Gender Information Value Date Recorded Sex Assigned at Not on file Legal Sex Female 6:54 PM EDT Gender Identity Not on file Sexual Orientation Not on file documented as of this encounter Plan of Treatment Upcoming Encounters Date Type Department Care Team (Late st Contact Info) Description 01/04/2025 10:30 AM EDT Office Visit [facility] [address] [place] [address] Catracho Sheriff MD [address] [facility] [address] [place] [address] documented as of this encounter Procedures Procedure Name Priority Date/Time Associated Diagnosis Comments XR DEXA AXIAL SKELETON 07/30/2023 12:01 PM EST documented in this encounter Results * XR DEXA AXIAL SKELETON (07/30/2023 12:01 PM EST) Anatomical Region Laterality Modality Other 07/30/2023 12:0 1 PM EST Narrative 07/30/2023 12:04 PM EST The [place] [id number] XRay Report Signed Patient: Joe Ewing MR#: [id number] : 1950 Acct:[id number] Age/Sex: 72 / F ADM Date: 07/30/23 Loc: MAMMO Attending Dr: CATRACHO SHERIFF Ordering Physician: CATRACHO SHERIFF Date of Service: 07/30/23 Procedure(s): XR DEXA axial skeleton Accession Number(s): [id number] cc: CATRACHO SHERIFF The [address] [address] Patient Name: JOE EWING MRN: [id number] date: 1950 Sex: F Assigned Patient Location: MAMMO Current Patient Location: MAMMO Accession/Order Number: [id number] Exam Date: 07/30/2023 10:00 Report Date: 07/30/2023 12:01 At the request of: CATRACHO SHERIFF Procedure: XR DEXA axial skeleton EXAMINATION: XR DEXA axial skeleton, 07/30/2023 10:00 AM EST HISTORY: Osteoporosis M81.0, Osteopenia Spine M85.88 COMPARISON: 2015, 2011, 2009. TECHNIQUE: Dual-energy X-ray absorptiometry (DEXA) bone density study performed for the axial skeleton. HISTORY: Osteoporosis M81.0, Osteopenia Spine M85.88 FINDINGS: Bone mineral density AP spine L1-L4 measures 1.081 g/sq cm. T score -0.8. WHO classification: Normal. This is related to proliferative osteophyte formation Lowest bone mineral density left femoral trochanter measures 0.342 g/sq cm. T score -4.4. WHO classification: Osteoporosis XR/XR DEXA axial skeleton IMPRESSION: Osteoporosis. High fracture risk Electronically authenticated by: CHIKA SU Date: 07/30/2023 12:01 Dictated By: Chika Su M.D. Signed By: 07/30/23 1204 DD/ 1201 TD/TT: Label Coder: Procedure Note Radiology, Radiologist, - 07/30/2023 [place] [address] XRay Report Signed Patient: Joe Ewing SMR#: [id number] : 1950cct:[id number] Age/Sex: 72 / FADM Date: 07/30/23 Loc: MAMMO Attending Dr: CATRACHO SHERIFF Ordering Physician: CATRACHO SHERIFF Date of Service: 07/30/23 Procedure(s): XR DEXA axial skeleton Accession Number(s): [id number] cc: CATRACHO SHERIFF [place] [id number] Patient Name: JOE EWING MRN: [id number] date: 1950 Sex: F Assigned Patient Location: MAMMO Current Patient Location: MAMMO Accession/Order Number: [id number] Exam Date: 07/30/2023 10:00 Report Date: 07/30/2023 12:01 At the request of: CATRACHO SHERIFF Procedure: XR DEXA axial skeleton EXAMINATION: XR DEXA axial skeleton, 07/30/2023 10:00 AM EST HISTORY: Osteoporosis M81.0, Osteopenia Spine M85.88 COMPARISON: 2015, 2011, 2009. TECHNIQUE: Dual-energy X-ray absorptiometry (DEXA) bone density study performed for the axial skeleton. HISTORY: Osteoporosis M81.0, Osteopenia Spine M85.88 FINDINGS: Bone mineral density AP spine L1-L4 measures 1.081 g/sq cm. T score -0.8.WHO classification: Normal. This is related to proliferative osteophyteformation Lowest bone mineral density left femoral trochanter measures 0.342 g/sqcm. T score -4.4. WHO classification: Osteoporosis XR/XR DEXA axial skeleton IMPRESSION: Osteoporosis. High fracture risk Electronically authenticated by: CHIAK SU Date: 07/30/2023 12:01 Dictated By: Chika Su M.D. Signed By:07/30/23 1204 DD/ 1201 TD/TT: Label Coder: Catracho Sheriff MD [facility] Final Resu lt documented in this encounter Visit Diagnoses Not on filedocumented in this encounter Care Teams Naphthalene Operator Helper Relationship Specialty Start Date End Date Catracho Sheriff MD [address] [facility] [address] [place] [address] PCP - [employer] 07/27/22 Catracho Sheriff MD [address] [facility] [address] [place] [address] PCP - General Family Medicine 01/05/23 Payal Gaona DO [address] [place] [address] Referring Physician Neurology 09/03/23 Aimee Truong, RN Registered Nurse Family Medicine 12/23/23 documented as of this encounter
--- OUTSIDE RECORDS SUMMARY | 2025-01-03 21:50 | XMS_ITS | Encounter Summary ---
Author Organization [facility] Address [address] [place] [address] Care Team Providers Care Telescope Repairer Name Role Phone Catracho Sheriff MD Unavailable [phone] Catracho Sheriff MD Primary Care Provider [phone] Payal Gaona DO Unavailable [phone] Aimee Truong RN Unavailable [phone] Encounter Details Date Type Department Care Team (Late st Contact Info) Description 01/27/2024 Clinisync Result Encounter [facility] External Department Unsolicited Catracho Sheriff MD 112 [facility] [address] [place], [place] [id number] Social History Tobacco Use Types Packs/Day Years Used Date Smoking Tobacco: Former Cigarettes Smokeless Tobacco: Never Alcohol Use Standard Drinks/Week Comments Not Currently 0 (1 standard drink = 0.6 oz pure alcohol) Caffeine intake: drinks decaf PHQ-2 Answer Date Recorded Patient Health Questionnaire-2 Score 0 10/21/2023 Education Answer Date Recorded What is the [...] Office Visit [facility] 100 112 [facility] 100 [place] [address] Catracho Sheriff MD 112 [facility] 100 [place] [address] documented as of this encounter Procedures Procedure Name Priority Date/Time Associated Diagnosis Comments XR ELBOW LT 2V 01/27/2024 7:02 AM EDT documented in this encounter Results * XR ELBOW LT 2V (01/27/2024 7:02 AM EDT) Anatomical Region Laterality Modality Other 01/27/2024 7:02 AM EDT Narrative 01/27/2024 7:05 AM EDT [address] [address] XRay Report Signed Patient: JOE EWING MR#: [id number] : 1950 Acct:[id number] Age/Sex: 73 / F ADM Date: 01/25/24 Loc: RAD Attending Dr: CATRACHO SHERIFF Ordering Physician: CATRACHO SHERIFF Date of Service: 01/25/24 Procedure(s): XR elbow LT 2V Accession Number(s): [id number] cc: CATRACHO SHERIFF [address] [address] Patient Name: JEO EWING MRN: [id number] date: 1950 Sex: F Assigned Patient Location: RAD Current Patient Location: RAD Accession/Order Number: [id number] Exam Date: 01/25/2024 18:17 Report Date: 01/27/2024 07:02 At the request of: CATRACHO SHERIFF Procedure: XR elbow LT 2V PROCEDURE: XR forearm LT 2V, XR elbow LT 2V, XR wrist LT 2V HISTORY: fall, subsequent encounter COMPARISON: None. FINDINGS: BONES:Small corticated ossification adjacent the tip of the ulnar coronoid process favoring sequela of remote injury. Joint space narrowing and subchondral sclerosis involving the first carpal-metacarpal joint. SOFT TISSUES:No visible soft tissue swelling. EFFUSION:None visible. OTHER: Negative. XR/XR elbow LT 2V IMPRESSION: 1. No appreciable acute bone abnormality. 2. Suspect remote fracture or cortical avulsion involving tip of ulnar coronoid process at the elbow. 3. 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 Electronically authenticated by: TAMI WILSON Date: 01/27/2024 07:02 Dictated By: Tami Wilson M.D. Signed By: 01/27/24704 DD/ 1 TD/TT: Supervisor Machining: Procedure Note Radiology, Radiologist, MD - 01/27/2024 [facility] [place] [id number] XRay Report Signed Patient: JOE EWING SMR#: [id number] : 1950cct:[id number] Age/Sex: 73 / FADM Date: 01/25/24 Loc: RAD Attending Dr: CATRACHO SHERIFF Ordering Physician: CATRACHO SHERIFF Date of Service: 01/25/24 Procedure(s): XR elbow LT 2V Accession Number(s): [id number] cc: CATRACHO SHERIFF [place] [id number] Patient Name: JOE EWING MRN: [id number] date: 1950 Sex: F Assigned Patient Location: [facility] Current Patient Location: [facility] Accession/Order Number: [id number] Exam Date: 01/25/2024 18:17 Report Date: 01/27/2024 07:02 At the request of: CATRACHO SHERIFF Procedure: XR elbow LT 2V PROCEDURE: XR forearm LT 2V, XR elbow LT 2V, XR wrist LT 2V HISTORY: fall, subsequent encounter COMPARISON: None. FINDINGS: BONES:Small corticated ossification adjacent the tip of the ulnar coronoid process favoring sequela of remote injury. Joint space narrowing and subchondral sclerosis involving the first carpal-metacarpal joint. SOFT TISSUES:No visible soft tissue swelling. EFFUSION:None visible. OTHER: Negative. XR/XR elbow LT 2V IMPRESSION: 1. No appreciable acute bone abnormality. 2. Suspect remote fracture or cortical avulsion involving tip of ulnar coronoid process at the elbow. 3. 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 Electronically authenticated by: TAMI WILSON Date: 01/27/2024 07:02 Dictated By: Tami Wilson M.D. Signed By:01/27/24704 DD/ 1 TD/TT: Supervisor Machining: Catracho Sheriff MD [facility] Final Resu lt documented in this encounter Visit Diagnoses Not on filedocumented in this encounter Additional Health Concerns Assessment Noted Time PHQ-9 Depression Total Score: 7 08/13/19 24 10:00 AM EST documented as of this encounter Care Teams Telescope Repairer Relationship Specialty Start Date End Date Catracho Sheriff MD [address] [place] [address] PCP - [employer] 07/27/22 Catracho Sheriff MD [address] [place] [address] PCP - General Family Medicine 01/05/23 Payal Gaona DO [address] [place] [address] Referring Physician Neurology 09/03/23 Aimee Truong, IGOR Registered Nurse Family Medicine 12/23/23 documented as of this encounter
--- OUTSIDE RECORDS SUMMARY | 2025-01-03 21:50 | XMS_ITS | Encounter Summary ---
Author Organization [facility] Address [address] [place] [facility] [address] Care Team Providers Care Communications Department Head Name Role Phone Catracho Mills MD Unavailable [phone] Catracho Mills MD Primary Care Provider [phone] Payal Gaona DO Unavailable [phone] Aimee Truong RN Unavailable [phone] Encounter Details Date Type Department Care Team (Late st Contact Info) Description 11/26/2023 Abstract [facility] [address] [place] [address] [place] [address] Catracho Mills MD [address] [place] [address] Social History Tobacco Use Types Packs/Day Years [...] FM [address] [place] [address] [place] [address] Catracho Mills MD [address] [place] [address] documented as of this encounter Visit Diagnoses Not on filedocumented in this encounter Additional Health Concerns Assessment Noted Time PHQ-9 Depression Total Score: 7 08/13/19 24 10:00 AM EST documented as of this encounter Care Teams Communications Department Head Relationship Specialty Start Date End Date Catracho Mills MD [address] [facility] 100 [place] [address] PCP - [employer] 07/27/22 Catracho Mills MD [address] [facility] 100 [place] [address] (Fax) PCP - General Family Medicine 01/05/23 Payal Gaona DO [address] [place] [address] Referring Physician Neurology 09/03/23 Aimee Truong, RN Registered Nurse Family Medicine 12/23/23 documented as of this encounter
--- OUTSIDE RECORDS SUMMARY | 2025-01-03 21:50 | XMS_ITS | Encounter Summary ---
Author Organization [facility] Address [address] [place] [address] Care Team Providers Care Actuary Manager Name Role Phone Catracho Mills MD Unavailable [phone] Catracho Mills MD Primary Care Provider [phone] Payal Gaona DO Unavailable Aimee Truong RN Unavailable [phone] Encounter Details Date Type Department Care Team (Late st Contact Info) Description 07/29/2023 Orders Only [facility] [address] [place] [address] Catracho Mills MD 112 [facility] 100 [place] [address] (Fax) Acute and chronic respiratory failure with hypoxia (CMS/HCC) (Primary Dx); Chronic fatigue; Postsurgical hypothyroidism (CMS/HCC) ; 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); Screening for lipid disorders Social History Tobacco Use Types Packs/Day Years [...] Office Visit [facility] FM 100 112 [facility] 100 [place] [address] Catracho Mills MD 112 [facility] 100 [place] [address] (Fax) documented as of this encounter Visit Diagnoses Diagnosis Acute and chronic respiratory failure with hypoxia (CMS/HCC)- Primary Chronic fatigue Other malaise and fatigue Postsurgical hypothyroidism (CMS/HCC) Postsurgical hypothyroidism 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) Screening for lipid disorders Chronic pain syndrome Spondylosis of lumbar region without myelopathy or radiculopathy Fibromyalgia Unspecified myalgia and myositis Postsurgical hypothyroidism (CMS/HCC) Postsurgical hypothyroidism ESS (euthyroid sick syndrome) Euthyroid sick syndrome Chronic fatigue Other malaise and fatigue Former smoker Personal history of tobacco use, presenting hazards to health Controlled substance agreement signed documented in this encounter Care Teams Actuary Manager Relationship Specialty Start Date End Date Catracho Mills MD [address] [place] [address] (Fax) PCP - [employer] 07/27/22 Catracho Mills MD 112 [address] [place] [address] (Fax) PCP - General Family Medicine 01/05/23 Payal Gaona DO [address] [place] [address] Referring Physician Neurology 09/03/23 Aimee Truong, RN Registered Nurse Family Medicine 12/23/23 documented as of this encounter
--- OUTSIDE RECORDS SUMMARY | 2025-01-03 21:50 | XMS_ITS | Encounter Summary ---
Author Organization [facility] Address [address] [place] [address] Care Team Providers Care County Extension Agent Name Role Phone Catracho Mills MD Unavailable [phone] Catracho Mills MD Primary Care Provider [phone] Payal Gaona DO Unavailable [phone] Aimee Truong RN Unavailable [phone] Encounter Details Date Type Department Care Team (Late Contact Info) Description 11/17/2023 Abstract [facility] [address] [facility] [place] [address] Randy Yoon MD [address] [place] [place] [address] Social History Tobacco Use Types Packs/Day Years [...] Encounters Date Type Department Care Team (Late Contact Info) Description 01/04/2025 10:30 AM EDT Office Visit [facility] [address] [place] [address] [place] [address] Catracho Mills MD [address] [place] [address] (Fax) documented as of this encounter Visit Diagnoses Not on filedocumented in this encounter Additional Health Concerns Assessment Noted Time PHQ-9 Depression Total Score: 7 08/13/19 24 10:00 AM EST documented as of this encounter Care Teams County Extension Agent Relationship Specialty Start Date End Date Catracho Mills MD [address] [place] 100 [place] [address] (Fax) PCP - [employer] 07/27/22 Catracho Mills MD [address] [facility] 100 [place] [address] (Fax) PCP - General Family Medicine 01/05/23 Payal Gaona DO [address] [place] [address] Referring Physician Neurology 09/03/23 Aimee Truong, RN Registered Nurse Family Medicine 12/23/23 documented as of this encounter
--- OUTSIDE RECORDS SUMMARY | 2025-01-03 21:50 | XMS_ITS | Encounter Summary ---
Author Organization [facility] Address [address] [place] [address] Care Team Providers Care Aviation Electronic Warfare Operator Name Role Phone Catracho Mills MD Unavailable [phone] Catracho Mills MD Primary Care Provider [phone] Payal Gaona DO Unavailable [phone] Aimee Truong RN Unavailable [phone] Encounter Details Date Type Department Care Team (Late st Contact Info) Description 11/17/2023 Abstract [facility] [address] [place] [address] Frantz Nieves MD [address] [place] [address] Social History Tobacco Use Types Packs/Day Years [...] [address] [place] [address] [place] [address] Catracho Mills MD [address] [facility] 100 [place] [address] documented as of this encounter Visit Diagnoses Not on filedocumented in this encounter Additional Health Concerns Assessment Noted Time PHQ-9 Depression Total Score: 7 08/13/19 24 10:00 AM EST documented as of this encounter Care Teams Aviation Electronic Warfare Operator Relationship Specialty Start Date End Date Catracho Mills MD [address] [facility] 100 [place] [address] PCP - [employer] 07/27/22 Catracho Mills MD [address] [facility] 100 [place] [address] (Fax) PCP - General Family Medicine 01/05/23 Payal Gaona DO [address] [place] [address] Referring Physician Neurology 09/03/23 Aimee Truong, RN Registered Nurse Family Medicine 12/23/23 documented as of this encounter
--- OUTSIDE RECORDS SUMMARY | 2025-01-03 21:50 | XMS_ITS | Encounter Summary ---
Author Organization [facility] Address [address] [facility] [place] [address] Care Team Providers Care School Teacher Name Role Phone Catracho Mills MD Unavailable [phone] Catracho Mills MD Primary Care Provider [phone] Payal Gaona DO Unavailable [phone] Aimee Truong RN Unavailable [phone] Encounter Details Date Type Department Care Team (Late st Contact Info) Description 04/12/2024 Abstract [facility] [address] [address] [place] [address] Catracho Mills MD [address] [place] [address] Social History Tobacco Use Types Packs/Day Years [...] [address] [address] [place] [address] Catracho Mills MD [address] [place] [address] documented as of this encounter Visit Diagnoses Not on filedocumented in this encounter Additional Health Concerns Assessment Noted Time PHQ-9 Depression Total Score: 7 08/13/19 24 10:00 AM EST documented as of this encounter Care Teams School Teacher Relationship Specialty Start Date End Date Catracho Mills MD [address] [facility] 100 [place] [address] PCP - [employer] 07/27/22 Catracho Mills MD [address] [facility] 100 [place] [address] (Fax) PCP - General Family Medicine 01/05/23 Payal Gaona DO [address] [place] [address] Referring Physician Neurology 09/03/23 Aimee Truong, RN Registered Nurse Family Medicine 12/23/23 documented as of this encounter
--- OUTSIDE RECORDS SUMMARY | 2025-01-03 21:50 | XMS_ITS | Encounter Summary ---
Author Organization [facility] Address [address] [facility] [place] [address] Care Team Providers Care Propellant Charge Zone Assembler Name Role Phone Catracho Mills MD Unavailable [phone] Catracho Mills MD Primary Care Provider [phone] Payal Gaona DO Unavailable [phone] Aimee Truong RN Unavailable [phone] Encounter Details Date Type Department Care Team (Late st Contact Info) Description 02/08/2024 Abstract [facility] [address] [address] [place] [address] Catracho Mills MD [address] [place] [address] Social History Tobacco Use Types Packs/Day Years [...] [address] [place] [address] [place] [address] Catracho Mills MD [address] [place] [address] documented as of this encounter Visit Diagnoses Not on filedocumented in this encounter Additional Health Concerns Assessment Noted Time PHQ-9 Depression Total Score: 7 08/13/19 24 10:00 AM EST documented as of this encounter Care Teams Propellant Charge Zone Assembler Relationship Specialty Start Date End Date Catracho Mills MD [address] [facility] 100 [place] [address] PCP - [employer] 07/27/22 Catracho Mills MD [address] [facility] 100 [place] [address] (Fax) PCP - General Family Medicine 01/05/23 Payal Gaona DO [address] [place] [address] Referring Physician Neurology 09/03/23 Aimee Truong, RN Registered Nurse Family Medicine 12/23/23 documented as of this encounter
--- OUTSIDE RECORDS SUMMARY | 2025-01-03 21:50 | XMS_ITS | Encounter Summary ---
Author Organization [facility] Address [address] [place] [address] Care Team Providers Care Chemical Engineering Technician Name Role Phone Catracho Mills MD Unavailable [phone] Catracho Mills MD Primary Care Provider [phone] Payal Gaona DO Unavailable [phone] Aimee Truong RN Unavailable [phone] Encounter Details Date Type Department Care Team (Late st Contact Info) Description 11/20/2023 Abstract [facility] [address] [facility] [address] Frantz Nieves MD [address] [place] [address] Social History Tobacco Use Types Packs/Day Years [...] [address] [address] [place] [address] Catracho Mills MD [address] [facility] 100 [place] [address] documented as of this encounter Visit Diagnoses Not on filedocumented in this encounter Additional Health Concerns Assessment Noted Time PHQ-9 Depression Total Score: 7 08/13/19 24 10:00 AM EST documented as of this encounter Care Teams Chemical Engineering Technician Relationship Specialty Start Date End Date Catracho Mills MD [address] [facility] 100 [place] [address] PCP - [employer] 07/27/22 Catracho Mills MD [address] [facility] 100 [place] [address] (Fax) PCP - General Family Medicine 01/05/23 Payal Gaona DO [address] [place] [address] Referring Physician Neurology 09/03/23 Aimee Truong, RN Registered Nurse Family Medicine 12/23/23 documented as of this encounter
--- OUTSIDE RECORDS SUMMARY | 2025-01-03 21:50 | XMS_ITS | Encounter Summary ---
Author Organization [facility] Address [address] [place] [address] Care Team Providers Care Manager Retirement Name Role Phone Catracho Mills MD Unavailable [phone] Catracho Mills MD Primary Care Provider [phone] Payal Gaona DO Unavailable [phone] Aimee Truong RN Unavailable [phone] Encounter Details Date Type Department Care Team (Late st Contact Info) Description 01/01/2023 Abstract [facility] [address] [place] [address] Catracho Mills MD 112 [facility] 100 [place] [address] Social History Tobacco Use Types Packs/Day Years Used Date Smoking Tobacco: Former Cigarettes Tobacco Cessation:Counseling Given: Not Answered Alcohol Use Standard Drinks/Week Comments Not Currently 0 (1 standard drink = 0.6 oz pure alcohol) Caffeine intake: drinks decaf Education Answer Date Recorded What is the [...] [address] [place] [address] Catracho Mills MD [address] [place] [address] (Fax) documented as of this encounter Visit Diagnoses Not on filedocumented in this encounter Care Teams Manager Retirement Relationship Specialty Start Date End Date Catracho Mills MD [address] [place] [address] (Fax) PCP - [employer] 07/27/22 Catracho Mills MD [address] [place] [address] PCP - General Family Medicine 01/05/23 Payal Gaona DO [address] [place] [address] Referring Physician Neurology 09/03/23 Aimee Truong, IGOR Registered Nurse Family Medicine 12/23/23 documented as of this encounter
--- OUTSIDE RECORDS SUMMARY | 2025-01-03 21:50 | XMS_ITS | Encounter Summary ---
Author Organization [facility] Address [address] [place] [address] Care Team Providers Care Rod Hanger Name Role Phone Catracho Sheriff MD Unavailable [phone] Catracho Sheriff MD Primary Care Provider [phone] Payal Gaona DO Unavailable [phone] Aimee Truong RN Unavailable Encounter Details Date Type Department Care Team (Late st Contact Info) Description 01/27/2024 Clinisync Result Encounter N[facility]S External Department Unsolicited Catracho Sheriff MD 112 [facility] [address] [place], [place] [address] Social History Tobacco Use Types Packs/Day Years [...] Office Visit [facility] FM 100 112 [facility] 100 [place] [address] Catracho Sheriff MD 112 [facility] 100 [place] [address] documented as of this encounter Procedures Procedure Name Priority Date/Time Associated Diagnosis Comments XR WRIST 1-2 VIEWS LEFT 01/27/2024 7:02 AM EDT documented in this encounter Results * XR wrist 1 or 2 views left (01/27/2024 7:02 AM EDT) Anatomical Region Laterality Modality Upper Extremities, Wrist Left Radiogr aphic Imaging 01/27/2024 7:02 AM EDT Narrative 01/27/2024 7:05 AM EDT [address] [address] XRay Report Signed Patient: JOE EWING MR#: [id number] : 1950 Acct:[id number] Age/Sex: 73 / F ADM Date: 01/25/24 Loc: RAD Attending Dr: CATRACHO SHERIFF Ordering Physician: CATRACHO SHERIFF Date of Service: 01/25/24 Procedure(s): XR wrist LT 2V Accession Number(s): [id number] cc: CATRACHO SHERIFF [address] [address] Patient Name: JOE EWING MRN: [id number] date: 1950 Sex: F Assigned Patient Location: RAD Current Patient Location: RAD Accession/Order Number: [id number] Exam Date: 01/25/2024 18:17 Report Date: 01/27/2024 07:02 At the request of: CATRACHO SHERIFF Procedure: XR wrist LT 2V PROCEDURE: XR forearm LT 2V, XR elbow LT 2V, XR wrist LT 2V HISTORY: fall, subsequent encounter COMPARISON: None. FINDINGS: BONES:Small corticated ossification adjacent the tip of the ulnar coronoid process favoring sequela of remote injury. Joint space narrowing and subchondral sclerosis involving the first carpal-metacarpal joint. SOFT TISSUES:No visible soft tissue swelling. EFFUSION:None visible. OTHER: Negative. XR/XR wrist LT 2V IMPRESSION: 1. No appreciable acute bone abnormality. 2. Suspect remote fracture or cortical avulsion involving tip of ulnar coronoid process at the elbow. 3. 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 Electronically authenticated by: TAMI WILSON Date: 01/27/2024 07:02 Dictated By: Tami Wilson M.D. Signed By: 01/27/24704 DD/ 1 TD/TT: Senior Research Fellow: Procedure Note Radiology, Radiologist, - 01/27/2024 [place] [address] XRay Report Signed Patient: JOE EWING [facility]#: [id number] : 1950cct:[id number] Age/Sex: 73 / FADM Date: 01/25/24 Loc: RAD Attending Dr: CATRACHO SHERIFF Ordering Physician: CATRACHO SHERIFF Date of Service: 01/25/24 Procedure(s): XR wrist LT 2V Accession Number(s): [id number] cc: CATRACHO SHERIFF [place] [address] Patient Name: JOE EWING MRN: [id number] date: 1950 Sex: F Assigned Patient Location: [facility] Current Patient Location: [facility] Accession/Order Number: [id number] Exam Date: 01/25/2024 18:17 Report Date: 01/27/2024 07:02 At the request of: CATRACHO SHERIFF Procedure: XR wrist LT 2V PROCEDURE: XR forearm LT 2V, XR elbow LT 2V, XR wrist LT 2V HISTORY: fall, subsequent encounter COMPARISON: None. FINDINGS: BONES:Small corticated ossification adjacent the tip of the ulnar coronoid process favoring sequela of remote injury. Joint space narrowing and subchondral sclerosis involving the first carpal-metacarpal joint. SOFT TISSUES:No visible soft tissue swelling. EFFUSION:None visible. OTHER: Negative. XR/XR wrist LT 2V IMPRESSION: 1. No appreciable acute bone abnormality. 2. Suspect remote fracture or cortical avulsion involving tip of ulnar coronoid process at the elbow. 3. 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 Electronically authenticated by: TAMI WILSON Date: 01/27/2024 07:02 Dictated By: Tami Wilson M.D. Signed By:01/27/24704 DD/ 1 TD/TT: Senior Research Fellow: Catracho Sheriff MD IMG XR PROCEDURES Final Resu lt documented in this encounter Visit Diagnoses Not on filedocumented in this encounter Additional Health Concerns Assessment Noted Time PHQ-9 Depression Total Score: 7 08/13/19 24 10:00 AM EST documented as of this encounter Care Teams Rod Hanger Relationship Specialty Start Date End Date Catracho Sheriff MD [address] [place] [address] PCP - [employer] 07/27/22 Catracho Sheriff MD [address] [facility] 100 [place] [address] PCP - General Family Medicine 01/05/23 Payal Gaona DO [address] [place] [address] Referring Physician Neurology 09/03/23 Aimee Truong, RN Registered Nurse Family Medicine 12/23/23 documented as of this encounter
--- OUTSIDE RECORDS SUMMARY | 2025-01-03 21:50 | XMS_ITS | Encounter Summary ---
Author Organization [facility] Address [address] [place] [address] Care Team Providers Care Student Admissions Clerk Name Role Phone Catracho Mills MD Unavailable [phone] Catracho Mills MD Primary Care Provider [phone] Payal Gaona DO Unavailable [phone] Aimee Truong RN Unavailable [phone] Encounter Details Date Type Department Care Team (Late st Contact Info) Description 08/18/2023 Abstract [facility] [address] [facility] [place] [id number] Catracho Mills MD 112 [facility] 100 [place], [place] [id number] Social History Tobacco Use Types Packs/Day Years Used Date Smoking Tobacco: Former Cigarettes Smokeless Tobacco: Never Alcohol Use Standard Drinks/Week Comments Not Currently 0 (1 standard drink = 0.6 oz pure alcohol) Caffeine intake: drinks decaf PHQ-2 Answer Date Recorded Patient Health Questionnaire-2 Score 2 08/13/2023 Education Answer Date Recorded What is the [...] [address] [place] [address] Catracho Mills MD [address] [facility] [address] [place] [address] documented as of this encounter Visit Diagnoses Not on filedocumented in this encounter Additional Health Concerns Assessment Noted Time PHQ-9 Depression Total Score: 7 08/13/19 24 10:00 AM EST documented as of this encounter Care Teams Student Admissions Clerk Relationship Specialty Start Date End Date Catracho Mills MD [address] [facility] 100 [place] [address] PCP - [employer] 07/27/22 Catracho Mills MD [address] [facility] 100 [place] [address] (Fax) PCP - General Family Medicine 01/05/23 Payal Gaona DO [address] [place] [address] Referring Physician Neurology 09/03/23 Aimee Truong, RN Registered Nurse Family Medicine 12/23/23 documented as of this encounter
--- OUTSIDE RECORDS SUMMARY | 2025-01-03 21:50 | XMS_ITS | Encounter Summary ---
Author Organization [facility] Address [address] [place] [address] Care Team Providers Care Chemical Operations Specialist Name Role Phone Catracho Mills MD Unavailable [phone] Catracho Mills MD Primary Care Provider [phone] Payal Gaona DO Unavailable [phone] Aimee Truong RN Unavailable [phone] Encounter Details Date Type Department Care Team (Late Contact Info) Description 11/17/2023 Abstract [facility] [address] [facility] [place] [address] Seun Freitas MD [address] [facility] 151 [place] [address] Social History Tobacco Use Types Packs/Day Years [...] [address] [place] [address] Catracho Mills MD [address] [place] [address] (Fax) documented as of this encounter Visit Diagnoses Not on filedocumented in this encounter Additional Health Concerns Assessment Noted Time PHQ-9 Depression Total Score: 7 08/13/19 24 10:00 AM EST documented as of this encounter Care Teams Chemical Operations Specialist Relationship Specialty Start Date End Date Ctaracho Mills MD [address] [facility] 100 [place] [address] PCP - [employer] 07/27/22 Catracho Mills MD [address] [facility] 100 [place] [address] (Fax) PCP - General Family Medicine 01/05/23 Payal Gaona DO [address] [place] [address] Referring Physician Neurology 09/03/23 Aimee Truong, RN Registered Nurse Family Medicine 12/23/23 documented as of this encounter
--- OUTSIDE RECORDS SUMMARY | 2025-01-03 21:50 | XMS_ITS | Encounter Summary ---
Author Organization [facility] Address [address] [facility] [place] [address] Care Team Providers Care Oracle Obiee Developer Name Role Phone Catracho Mills MD Unavailable [phone] Catracho Mills MD Primary Care Provider [phone] Payal Gaona DO Unavailable [phone] Aimee Truong RN Unavailable [phone] Encounter Details Date Type Department Care Team (Late st Contact Info) Description 02/02/2024 Orders Only [facility] FM [address] [place] [address] Catracho Mills MD [address] [place] [address] Social History Tobacco Use Types Packs/Day Years [...] [address] [place] [address] Catracho Mills MD [address] [place] [address] documented as of this encounter Visit Diagnoses Not on filedocumented in this encounter Additional Health Concerns Assessment Noted Time PHQ-9 Depression Total Score: 7 08/13/19 24 10:00 AM EST documented as of this encounter Care Teams Oracle Obiee Developer Relationship Specialty Start Date End Date Catracho Mills MD [address] [facility] 100 [place] [address] PCP - [employer] 07/27/22 Catracho Mills MD [address] [facility] 100 [place] [address] (Fax) PCP - General Family Medicine 01/05/23 Payal Gaona DO [address] [place] [address] Referring Physician Neurology 09/03/23 Aimee Truong, RN Registered Nurse Family Medicine 12/23/23 documented as of this encounter
--- OUTSIDE RECORDS SUMMARY | 2025-01-03 21:50 | XMS_ITS | Encounter Summary ---
Author Organization [facility] Address [address] [place] [address] Care Team Providers Care Family Resource Specialist Name Role Phone Catracho Mills MD Unavailable [phone] Catracho Mills MD Primary Care Provider [phone] Payal Gaona DO Unavailable [phone] Aimee Truong RN Unavailable [phone] Encounter Details Date Type Department Care Team (Late st Contact Info) Description 05/26/2023 Abstract [facility] [address] [facility] [place] [address] Payal Gaona DO Social History Tobacco Use Types Packs/Day Years [...] FM [address] [place] [address] Catracho Mills MD [address] [place] [address] (Fax) documented as of this encounter Visit Diagnoses Not on filedocumented in this encounter Care Teams Family Resource Specialist Relationship Specialty Start Date End Date Catracho Mills MD [address] [place] [address] (Fax) PCP - [employer] 07/27/22 Catracho Mills MD [address] [place] [address] PCP - General Family Medicine 01/05/23 Payal Gaona DO [address] [place] [address] Referring Physician Neurology 09/03/23 Aimee Truong, RN Registered Nurse Family Medicine 12/23/23 documented as of this encounter
--- OUTSIDE RECORDS SUMMARY | 2025-01-03 21:50 | XMS_ITS ---
Author Organization [facility] Address [address] [place] [place] [address] Care Team Providers Care Medical Research Associate Name Role Phone Catracho Mills MD Unavailable [phone] Catracho Mills MD Primary Care Provider [phone] Payal Gaona DO Unavailable [phone] Aimee Truong RN Unavailable [phone] Chronic Care Management (CCM) Status:Enrolled (Active) Start date:12/11/2022 Enrollment date:12/11/2022 Case Team Name Relationship Phone Aimee Truong RN Registered Nurse [employer](Responsible Staff) Social Wo rker [phone] Continued Care and Services Coordination
--- OUTSIDE RECORDS SUMMARY | 2025-01-03 21:50 | XMS_ITS | Encounter Summary ---
Author Organization [facility] Address [address] [facility] [place] [address] Care Team Providers Care Automatic Seamer Name Role Phone Catracho Mills MD Unavailable [phone] Catracho Mills MD Primary Care Provider [phone] Payal Gaona DO Unavailable [phone] Aimee Truong RN Unavailable [phone] Encounter Details Date Type Department Care Team (Late st Contact Info) Description 03/22/2024 Abstract [facility] [address] [place] [address] Catracho Mills MD [address] [place] [address] Social History Tobacco Use Types Packs/Day Years [...] [address] [place] [id number] Catracho Mills MD [address] [place] [id number] documented as of this encounter Visit Diagnoses Not on filedocumented in this encounter Additional Health Concerns Assessment Noted Time PHQ-9 Depression Total Score: 7 08/13/19 24 10:00 AM EST documented as of this encounter Care Teams Automatic Seamer Relationship Specialty Start Date End Date Catracho Mills MD [address] [facility] 100 [place] [address] PCP - [employer] 07/27/22 Catracho Mills MD [address] [facility] 100 [place] [address] (Fax) PCP - General Family Medicine 01/05/23 Payal Gaona DO [address] [place] [address] Referring Physician Neurology 09/03/23 Aimee Truong, RN Registered Nurse Family Medicine 12/23/23 documented as of this encounter
--- OUTSIDE RECORDS SUMMARY | 2025-01-03 21:50 | XMS_ITS | Encounter Summary ---
Author Organization [facility] Address [address] [place] [address] Care Team Providers Care Power Sweeper Operator Name Role Phone Catracho Mills MD Unavailable [phone] Catracho Mills MD Primary Care Provider [phone] Payal Gaona DO Unavailable [phone] Aimee Truong RN Unavailable [phone] Encounter Details Date Type Department Care Team (Late st Contact Info) Description 08/12/2023 Abstract [facility] [address] [facility] [place] [address] Payal Gaona DO Social History [...] on file documented as of this encounter Functional Status * Over the past 2 weeks, how often have you been bothered by any of the following problems? Question Answer Date of Assessment Author Little interest or pleasure in doing things Several days 08/13/2023 10:00 AM Brisa Mendez M A Feeling down, depressed, or hopeless Several days 08/13/2023 10:00 AM Brisa Mendez M A Patient Health Questionnaire -2 Score 2 08/13/2023 10:00 AM Brisa Mendez M A * Question Answer Date of Assessment Author Trouble falling or staying asleep, or sleeping too much More than half the days 08/13/2023 10:00 AM Brisa Mendez MA Feeling tired or having little energy Several days 08/13/2023 10:00 AM Brisa Mendez MA Poor appetite or overeating Several days 08/13/2023 10:00 AM rBisa Mendez MA Feeling bad about yourself - or that you are a failure or have let yourself or your family down Several days 08/13/2023 10:00 AM Brisa Mendez MA Trouble concentrating on things, such as reading the newspaper or watching television Not at all 08/13/2023 10:00 AM Brisa Mendez MA Moving or speaking so slowly that other people could have noticed? Or the opposite - being so fidgety or restless that you have been moving around a lot more than usual. Not at all 08/13/2023 10:00 Brisa Diaz MA Thoughts that you would be better off or hurting yourself in some way Not at all 08/13/2023 10:00 AM Brisa Mendez MA Patient Health Questionnaire-9 Score 7 08/13/2023 10:00 AM Brisa Mendez MA documented as of this encounter Plan of Treatment Upcoming Encounters Date Type Department Care Team (Late st Contact Info) Description 01/04/2025 10:30 AM EDT Office Visit [facility] 100 [address] [facility] 100 [place] [address] Catracho Mills MD 112 [facility] 100 [place] [address] (Fax) documented as of this encounter Visit Diagnoses Not on filedocumented in this encounter Care Teams Power Sweeper Operator Relationship Specialty Start Date End Date Catracho Mills MD [address] [place] [address] PCP - [employer] 07/27/22 Catracho Mills MD [address] [place] [address] PCP - General Family Medicine 01/05/23 Payal Gaona DO [address] [place] [address] Referring Physician Neurology 09/03/23 Aimee Truong, IGOR Registered Nurse Family Medicine 12/23/23 documented as of this encounter
--- OUTSIDE RECORDS SUMMARY | 2025-01-03 21:50 | XMS_ITS | Encounter Summary ---
Author Organization [facility] Address [address] [place] [address] Care Team Providers Care Continuing Education Dean Name Role Phone Catracho Sheriff MD Unavailable [phone] Catracho Sheriff MD Primary Care Provider [phone] Payal Gaona DO Unavailable [phone] Aimee Truong RN Unavailable [phone] Encounter Details Date Type Department Care Team (Late st Contact Info) Description 01/27/2024 Clinisync Result Encounter [facility] External Department Unsolicited Catracho Sheriff MD 112 [facility] [address] [place], [place] [address] Social History Tobacco Use Types Packs/Day Years [...] Office Visit [facility] [address] [facility] 100 [place] [address] Catracho Sheriff MD 112 [facility] 100 [place] [address] documented as of this encounter Procedures Procedure Name Priority Date/Time Associated Diagnosis Comments XR FOREARM 2 VIEWS LEFT 01/27/2024 7:02 AM EDT documented in this encounter Results * XR forearm 2 views left (01/27/2024 7:02 AM EDT) Anatomical Region Laterality Modality Upper Extremities, Forearm Left Radio graphic Imaging 01/27/2024 7:02 AM EDT Narrative 01/27/2024 7:05 AM EDT [address] [address] XRay Report Signed Patient: JOE EWING MR#: [id number] : 1950 Acct:[id number] Age/Sex: 73 / F ADM Date: 01/25/24 Loc: RAD Attending Dr: CATRACHO SHERIFF Ordering Physician: CATRACHO SHERIFF Date of Service: 01/25/24 Procedure(s): XR forearm LT 2V Accession Number(s): [id number] cc: CATRACHO SHERIFF [address] [address] Patient Name: JOE EWING MRN: [id number] date: 1950 Sex: F Assigned Patient Location: RAD Current Patient Location: RAD Accession/Order Number: [id number] Exam Date: 01/25/2024 18:17 Report Date: 01/27/2024 07:02 At the request of: CATRACHO SHERIFF Procedure: XR forearm LT 2V PROCEDURE: XR forearm LT 2V, XR elbow LT 2V, XR wrist LT 2V HISTORY: fall, subsequent encounter COMPARISON: None. FINDINGS: BONES:Small corticated ossification adjacent the tip of the ulnar coronoid process favoring sequela of remote injury. Joint space narrowing and subchondral sclerosis involving the first carpal-metacarpal joint. SOFT TISSUES:No visible soft tissue swelling. EFFUSION:None visible. OTHER: Negative. XR/XR forearm LT 2V IMPRESSION: 1. No appreciable acute bone abnormality. 2. Suspect remote fracture or cortical avulsion involving tip of ulnar coronoid process at the elbow. 3. 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 Electronically authenticated by: TAMI WILSON Date: 01/27/2024 07:02 Dictated By: Tami Wilson M.D. Signed By: 01/27/24704 DD/ 1 TD/TT: Trust Manager Assistant: Procedure Note Radiology, Radiologist, MD - 01/27/2024 [place] [address] XRay Report Signed Patient: JOE EWING SMR#: [id number] : 1950cct:[id number] Age/Sex: 73 / FADM Date: 01/25/24 Loc: [facility] Attending Dr: CATRACHO SHERIFF Ordering Physician: CATRACHO SHERIFF Date of Service: 01/25/24 Procedure(s): XR forearm LT 2V Accession Number(s): [id number] cc: CATRACHO SHERIFF [place] [id number] Patient Name: JOE EWING MRN: [id number] date: 1950 Sex: F Assigned Patient Location: [facility] Current Patient Location: [facility] Accession/Order Number: [id number] Exam Date: 01/25/2024 18:17 Report Date: 01/27/2024 07:02 At the request of: CATRACHO SHERIFF Procedure: XR forearm LT 2V PROCEDURE: XR forearm LT 2V, XR elbow LT 2V, XR wrist LT 2V HISTORY: fall, subsequent encounter COMPARISON: None. FINDINGS: BONES:Small corticated ossification adjacent the tip of the ulnar coronoid process favoring sequela of remote injury. Joint space narrowing and subchondral sclerosis involving the first carpal-metacarpal joint. SOFT TISSUES:No visible soft tissue swelling. EFFUSION:None visible. OTHER: Negative. XR/XR forearm LT 2V IMPRESSION: 1. No appreciable acute bone abnormality. 2. Suspect remote fracture or cortical avulsion involving tip of ulnar coronoid process at the elbow. 3. 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 Electronically authenticated by: TAMI WILSON Date: 01/27/2024 07:02 Dictated By: Tami Wilson M.D. Signed By:01/27/24704 DD/ 1 TD/TT: Trust Manager Assistant: Catracho Sheriff MD IMG XR PROCEDURES Final Resu lt documented in this encounter Visit Diagnoses Not on filedocumented in this encounter Additional Health Concerns Assessment Noted Time PHQ-9 Depression Total Score: 7 08/13/19 24 10:00 AM EST documented as of this encounter Care Teams Continuing Education Dean Relationship Specialty Start Date End Date Catracho Sheriff MD [address] [facility] [address] [place] [address] PCP - [employer] 07/27/22 Catracho Sheriff MD 112 [facility] 100 [place] [address] PCP - General Family Medicine 01/05/23 Payal Gaona DO [address] [place] [address] Referring Physician Neurology 09/03/23 Aimee Truong, RN Registered Nurse Family Medicine 12/23/23 documented as of this encounter
--- OUTSIDE RECORDS SUMMARY | 2025-01-03 21:50 | XMS_ITS | Encounter Summary ---
Author Organization [facility] Address [address] [place] [address] Care Team Providers Care Bill Of Materials Clerk Name Role Phone Catracho Mills MD Unavailable [phone] Catracho Mills MD Primary Care Provider [phone] Payal Gaona DO Unavailable [phone] Aimee Truong RN Unavailable [phone] Encounter Details Date Type Department Care Team (Late st Contact Info) Description 02/20/2023 Orders Only [facility] [address] [facility] [place] [address] Catracho Mills MD [address] [facility] [address] [place] [address] (Fax) Chronic pain syndrome (Primary Dx); Acquired hypothyroidism (CMS/HCC) ; ESS (euthyroid sick syndrome) Social History Tobacco Use Types Packs/Day Years Used Date Smoking Tobacco: Former Cigarettes PHQ-2 Answer Date Recorded Patient Health Questionnaire-2 Score 0 01/28/2023 Comments No Sex and Gender Information Value Date Recorded Sex Assigned at Not on file Legal Sex Female 6:54 PM EDT Gender Identity Not on file Sexual Orientation Not on file COVID-19 Exposure Response Date Recorded In the last 10 days, have yo u been in contact with someone who was confirmed or suspected to have Coronavirus/COVID-19? No / Unsure 01/29/2023 2:42 PM EDT documented as of this encounter Plan of Treatment Upcoming Encounters Date Type Department Care Team (Late st Contact Info) Description 01/04/2025 10:30 AM EDT Office Visit [facility] 100 112 [facility] 100 [place] [address] Catracho Mills MD [address] [address] documented as of this encounter Visit Diagnoses Diagnosis Chronic pain syndrome- Primary Acquired hypothyroidism (CMS/HCC) Unspecified hypothyroidism ESS (euthyroid sick syndrome) Euthyroid sick syndrome Chronic pain syndrome Spondylosis of lumbar region without myelopathy or radiculopathy Fibromyalgia Unspecified myalgia and myositis Postsurgical hypothyroidism (CMS/HCC) Postsurgical hypothyroidism ESS (euthyroid sick syndrome) Euthyroid sick syndrome Chronic fatigue Other malaise and fatigue Former smoker Personal history of tobacco use, presenting hazards to health Controlled substance agreement signed documented in this encounter Care Teams Bill Of Materials Clerk Relationship Specialty Start Date End Date Catracho Mills MD [address] [address] PCP - [employer] 07/27/22 Catracho Mills MD [address] [address] PCP - General Family Medicine 01/05/23 Payal Gaona DO [address] [place] [address] Referring Physician Neurology 09/03/23 Aimee Truong, RN Registered Nurse Family Medicine 12/23/23 documented as of this encounter
--- OUTSIDE RECORDS SUMMARY | 2025-01-03 21:50 | XMS_ITS | Encounter Summary ---
Author Organization [facility] Address [address] [place] [address] Care Team Providers Care Traffic Control Officer Name Role Phone Catracho Sheriff MD Unavailable [phone] Catracho Sheriff MD Primary Care Provider [phone] Payal Gaona DO Unavailable [phone] Aimee Truong RN Unavailable [phone] Encounter Details Date Type Department Care Team (Late st Contact Info) Description 07/30/2023 Clinisync Result Encounter [facility] External Department Unsolicited Catracho Sheriff MD 112 [facility] [address] [place] [address] Social History Tobacco Use Types Packs/Day Years [...] FM [address] [place] [address] Catracho Sheriff MD 112 [facility] 100 [place] [address] documented as of this encounter Procedures Procedure Name Priority Date/Time Associated Diagnosis Comments MM TOMOSYNTHESIS SCREENING BI 07/30/2023 12:42 PM EST documented in this encounter Results * MM TOMOSYNTHESIS SCREENING BI (07/30/2023 12:42 PM EST) Anatomical Region Laterality Modality Other 07/30/2023 12:4 2 PM EST Narrative 07/30/2023 12:43 PM EST The [address] [address] Mammography Report Signed Patient: Joe Ewing MR#: [id number] : 1950 Acct:[id number] Age/Sex: 72 / F ADM Date: 07/30/23 Loc: MAMMO Attending Dr: CATRACHO SHERIFF Ordering Physician: CATRACHO SHERIFF Results: Date of Service: 07/30/23 Follow Up: Procedure(s): MM tomosynthesis screening BI Accession Number(s): [id number] cc: CATRACHO SHERIFF Patient Name: JOE EWING MR#: [id number] : 1950 Exam Date: 07/30/2023 Ordering Doctor: DR CATRACHO SHERIFF . RADIOLOGY REPORT PROCEDURE: MM TOMOSYNTHESIS SCREENING BI COMPARISON: MG MAMM SCREEN 3D ROLANDO CAD, 02/12/2021. MG MAMM SCREEN ROLANDO W CAD, 07/03/2017. INDICATIONS: Screening Calculator Name NCI Breast Cancer Risk Assessment Tool 5 Year Breast Cancer Risk 2.40% Lifetime Breast Cancer Risk 5.60% Personal Breast Cancer No Personal Ovarian Cancer No Treatments None Family Cancers None LOCATION: [facility] BREAST COMPOSITION: Almost entirely fatty. FINDINGS: DIAGNOSTIC CATEGORY 1--NEGATIVE. NO CHANGE FROM COMPARISON ASSESSMENT. Scattered benign-appearing calcifications are present. Scattered benign-appearing nodules are present. RIGHT BREAST: No significant suspicious finding. LEFT BREAST: No significant suspicious finding. RECOMMENDATIONS: ROUTINE MAMMOGRAM AND CLINICAL EVALUATION IN 12 MONTHS. PLEASE NOTE: A NORMAL MAMMOGRAM DOES NOT EXCLUDE THE POSSIBILITY OF BREAST CANCER. A CLINICALLY SUSPICIOUS PALPABLE LUMP SHOULD BE BIOPSIED. Dictated by: Octavio Giordano MD on 07/30/2023 at 12:41 Approved by: Octavio Giordano MD on 07/30/2023 at 12:42 Dictated By: Octavio Giordano M.D. Signed By: 07/30/23 1243 DD/ 1242 TD/TT: Rivet Tester: Procedure Note Radiology, Radiologist, MD - 07/30/2023 [place] [address] Mammography Report Signed Patient: Joe Ewing SMR#: [id number] : 9Acct:[id number] Age/Sex: 72 / FADM Date: 07/30/23 Loc: MAMMO Attending Dr: CATRACHO SHERIFF Ordering Physician: CATRACHO SHERIFFResults: Date of Service: 07/30/23Follow Up: Procedure(s): MM tomosynthesis screening BI Accession Number(s): [id number] cc: CATRACHO SHERIFF Patient Name: JOE EWING MR#: [id number] : 1950 Exam Date: 07/30/2023 Ordering Doctor: DR CATRACHO SHERIFF . RADIOLOGY REPORT PROCEDURE: MM TOMOSYNTHESIS SCREENING BI COMPARISON: MG MAMM SCREEN 3D ROLANDO CAD, 02/12/2021. MG MAMM SCREEN BILW CAD, 07/03/2017. INDICATIONS: Screening Calculator Name NCI Breast Cancer Risk Assessment Tool 5 Year Breast Cancer Risk 2.40% Lifetime Breast Cancer Risk 5.60% Personal Breast Cancer No Personal Ovarian Cancer No Treatments None Family Cancers None LOCATION: [facility] BREAST COMPOSITION: Almost entirely fatty. FINDINGS: DIAGNOSTIC CATEGORY 1--NEGATIVE. NO CHANGE FROM COMPARISON ASSESSMENT. Scattered benign-appearing calcifications are present. Scattered benign-appearing nodules are present. RIGHT BREAST: No significant suspicious finding. LEFT BREAST: No significant suspicious finding. RECOMMENDATIONS: ROUTINE MAMMOGRAM AND CLINICAL EVALUATION IN 12 MONTHS. PLEASE NOTE: A NORMAL MAMMOGRAM DOES NOT EXCLUDE THE POSSIBILITY OFBREAST CANCER. A CLINICALLY SUSPICIOUS PALPABLE LUMP SHOULD BE BIOPSIED. Dictated by: Octavio Giordano MD on 07/30/2023 at 12:41 Approved by: Octavio Giordano MD on 07/30/2023 at 12:42 Dictated By: Octavio Giordano M.D. Signed By:07/30/23 1243 DD/ 1242 TD/TT: Rivet Tester: Catracho Sheriff MD [facility] Final Resu lt documented in this encounter Visit Diagnoses Not on filedocumented in this encounter Care Teams Traffic Control Officer Relationship Specialty Start Date End Date Catracho Sheriff MD [address] [place] [address] PCP - [employer] 07/27/22 Catracho Sheriff MD [address] [place] [address] PCP - General Family Medicine 01/05/23 Payal Gaona DO [address] [place] [address] Referring Physician Neurology 09/03/23 Aimee Truong, RN Registered Nurse Family Medicine 12/23/23 documented as of this encounter
--- OUTSIDE RECORDS SUMMARY | 2025-01-03 21:50 | XMS_ITS | Encounter Summary ---
Author Organization [facility] Address [address] [place] [address] Care Team Providers Care Finish Sander Name Role Phone Catracho Mills MD Unavailable [phone] Catracho Mills MD Primary Care Provider [phone] Payal Gaona DO Unavailable [phone] Aimee Truong RN Unavailable [phone] Encounter Details Date Type Department Care Team (Late st Contact Info) Description 04/12/2024 Abstract [facility] FM [address] [place] [address] Catracho Mills MD [address] [place] [address] Social History Tobacco Use Types Packs/Day Years [...] [facility] [address] [place] [address] Catracho Mills MD [address] [place] [address] documented as of this encounter Visit Diagnoses Not on filedocumented in this encounter Additional Health Concerns Assessment Noted Time PHQ-9 Depression Total Score: 7 08/13/19 24 10:00 AM EST documented as of this encounter Care Teams Finish Sander Relationship Specialty Start Date End Date Catracho Mills MD [address] [facility] 100 [place] [address] PCP - [employer] 07/27/22 Catracho Mills MD [address] [facility] 100 [place] [address] (Fax) PCP - General Family Medicine 01/05/23 Payal Gaona DO [address] [place] [address] Referring Physician Neurology 09/03/23 Aimee Truong, RN Registered Nurse Family Medicine 12/23/23 documented as of this encounter
--- OUTSIDE RECORDS SUMMARY | 2025-01-03 21:50 | XMS_ITS | Encounter Summary ---
Author Organization [facility] Address [address] [place] [address] Care Team Providers Care Practice Managers Name Role Phone Catracho Mills MD Unavailable [phone] Catracho Mills MD Primary Care Provider [phone] Payal Gaona DO Unavailable [phone] Aimee Truong RN Unavailable [phone] Encounter Details Date Type Department Care Team (Late Contact Info) Description 05/18/2024 Orders Only [facility] [address] 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); Osteopenia of spine Social History Tobacco Use Types Packs/Day Years [...] Visit [facility] FM 100 [address] [facility] [address] [place] [address] Catracho Mills MD 112 [facility] 100 [place] [address] (Fax) documented as of this encounter Visit Diagnoses Diagnosis Pain of left forearm Fall, subsequent encounter Wrist pain, left Pain in joint, forearm Elbow pain, left Pain in joint, upper arm 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) Osteopenia of spine Chronic pain syndrome Spondylosis of lumbar region without myelopathy or radiculopathy Fibromyalgia Unspecified myalgia and myositis Postsurgical hypothyroidism (CMS/HCC) Postsurgical hypothyroidism ESS (euthyroid sick syndrome) Euthyroid sick syndrome Chronic fatigue Other malaise and fatigue Former smoker Personal history of tobacco use, presenting hazards to health Controlled substance agreement signed documented in this encounter Additional Health Concerns Assessment Noted Time PHQ-9 Depression Total Score: 7 08/13/19 24 10:00 AM EST documented as of this encounter Care Teams Practice Managers Relationship Specialty Start Date End Date Catracho Mills MD [address] [address] [place] [address] (Fax) PCP - [employer] 07/27/22 Catracho Mills MD 112 [address] [place] [address] (Fax) PCP - General Family Medicine 01/05/23 Payal Gaona DO [address] [place] [address] Referring Physician Neurology 09/03/23 Aimee Truong, IGOR Registered Nurse Family Medicine 12/23/23 documented as of this encounter
--- OUTSIDE RECORDS SUMMARY | 2025-01-03 21:50 | XMS_ITS | Encounter Summary ---
Author Organization [facility] Address [address] [facility] [place] [address] Care Team Providers Care Legal Recruiter Name Role Phone Catracho Mills MD Unavailable [phone] Catracho Mills MD Primary Care Provider [phone] Payal Gaona DO Unavailable [phone] Aimee Truong RN Unavailable [phone] Encounter Details Date Type Department Care Team (Late st Contact Info) Description 01/26/2024 Abstract [facility] [address] [place] [address] Catracho Mills MD [address] [place] [address] Social History Tobacco Use Types Packs/Day Years [...] [address] [place] [address] Catracho Mills MD [address] [place] [address] documented as of this encounter Visit Diagnoses Not on filedocumented in this encounter Additional Health Concerns Assessment Noted Time PHQ-9 Depression Total Score: 7 08/13/19 24 10:00 AM EST documented as of this encounter Care Teams Legal Recruiter Relationship Specialty Start Date End Date Catracho Mills MD [address] [place] [address] [place] [address] PCP - [employer] 07/27/22 Catracho Mills MD [address] [facility] 100 [place] [address] (Fax) PCP - General Family Medicine 01/05/23 Payal Gaona DO [address] [place] [address] Referring Physician Neurology 09/03/23 Aimee Truong, RN Registered Nurse Family Medicine 12/23/23 documented as of this encounter
--- OUTSIDE RECORDS SUMMARY | 2025-01-03 21:51 | XMS_ITS | Encounter Summary ---
Author Organization [facility] Address [address] [place] [address] Care Team Providers Care Surfacer Name Role Phone Catracho Mills MD Unavailable [phone] Catracho Mills MD Primary Care Provider [phone] Payal Gaona DO Unavailable [phone] Aimee Truong RN Unavailable [phone] Encounter Details Date Type Department Care Team (Late st Contact Info) Description 12/21/2024 Patient Outreach [facility] [address] [place] [address] Aimee Truong, IGOR Social History Tobacco Use Types Packs/Day Years Used Date Smoking Tobacco: Former Cigarettes Smokeless Tobacco: Never Alcohol Use Standard Drinks/Week Comments Not Currently 0 (1 standard drink = 0.6 oz pure alcohol) Caffeine intake: drinks decaf B1300 Health Literacy Answer Date Recor ded How often do you need to hav e someone help you when you read instructions, pamphlets, or other written material from your doctor or pharmacy? Never 12/23/2024 Humiliation, Afraid, Rape, and Kick questionnair e Answer Date Recorded Within the last year, have y ou been afraid of your partner or ex-partner? No 12/23/2024 Within the last year, have y ou been humiliated or emotionally abused in other ways by your partner or ex-partner? No Within the last year, have y ou been kicked, hit, slapped, or otherwise physically hurt by your partner or ex-partner? No 12/23/2024 Within the last year, have y ou been raped or forced to have any kind of sexual activity by your partner or ex-partner? No 12/23/2024 Social Connection and Isolat ion Panel [NHANES] Answer Date Recorded In a typical week, how many times do you talk on the phone with family, friends, or neighbors? More than three times a week 12/23/2024 How often do you get togethe r with friends or relatives? Once a week 12/23/2024 How often do you attend chur or faith services? Never 12/23/2024 Do you belong to any clubs o r organizations such as christianity groups, unions, fraternal or athletic groups, or school groups? No 12/23/2024 How often do you attend meet ings of the clubs or organizations you belong to? Never 12/23/2024 Are you , , di vorced, , never , or living with a partner? 12/23/2024 AUDIT-C Answer Date Recorded Q1: How often do you have a drink containing alcohol? Never 12/23/2024 Q2: How many drinks containi ng alcohol do you have on a typical day when you are drinking? Patient does not drink Q3: How often do you have si x or more drinks on one occasion? Never 12/23/2024 Overall Financial Resource Strain (CARDIA) Answe r Date Recorded How hard is it for you to pa y for the very basics like food, housing, medical care, and heating? Somewhat hard 12/23/2024 PHQ-2 Answer Date Recorded Patient Health Questionnaire-2 Score 0 10/04/2024 [facility] - Occupational Stress Questionnaire Answer Date Recorded Do you feel stress - tense, restless, nervous, or anxious, or unable to sleep at night because your mind is troubled all the time - these days? To some extent 12/23/2024 Exercise Vital Sign Answer Date Recorde d On average, how many days pe r week do you engage in moderate to strenuous exercise (like a brisk walk)? 7 days 12/23/2024 On average, how many minutes do you engage in exercise at this level? 10 min 12/23/2024 Hunger Vital Sign Answer Date Recorded Within the past 12 months, y ou worried that your food would run out before you got the money to buy more. Never true 12/24/19 25 Within the past 12 months, t he food you bought just didn't last and you didn't have money to get more. Never true 12/23/2024 PRAPARE - Transportation Answer Date Re corded In the past 12 months, has l ack of transportation kept you from medical appointments or from getting medications? No 11/26 In the past 12 months, has l ack of transportation kept you from meetings, work, or from getting things needed for daily living? No 12/23/2024 Housing Stability Vital Sign Answer Leandro e Recorded In the last 12 months, was t here a time when you were not able to pay the mortgage or rent on time? No 12/23/2024 In the past 12 months, how m any times have you moved where you were living? 0 12/23/2024 At any time in the past 12 m [facility], were you homeless or living in a senior living (including now)? No 12/23/2024 Education Answer Date Recorded What is the [...] as of this encounter Functional Status * Audit-C Score Answer Date of Assessment Author 0 12/23/2024 3:28 PM Aimee Aguayo, IGOR * Question Answer Date of Assessment Author Q1: How often do you have a drink containing alcohol? Never 12/23/2024 3:28 PM Aimee Aguayo , RN Q2: How many drinks containing alcohol do you have on a typical day when you are drinking? Patient does not drink 12/23/2024 3:28 PM Aimee Aguayo, RN Q3: How often do you have six or more drinks on one occasion? Never 12/23/2024 3:28 PM Aimee Aguayo , RN documented as of this encounter Progress Notes * Aimee Truong RN - 12/21/2024 10:10 AM EDT Chart reviewed. Called pt for monthly monitor call. LM, requested call back <December 22, 2024, 15:57 - Aimee Truong RN> pt LM for CM, requests call back tomorrow morning. Pt going to take a nap. <December 23, 2024, 08:59 - Aimee Truong RN> Called pt, LM, requested call back <December 23, 2024, 14:04 - Aimee Truong RN> closing encounter at this time <December 23, 2024, 15:10 - Aimee Truong RN> Pt returned call to CM. States she is sleeping a bit better, getting about 4-5 hours continuous sleep a night, With use of the Mirtazapine. States she does not usually take naps. States she will be out of Baclofen on 12/31/24, requests rx. Discussed this nurse will send to PCP for approval, likely will be sent on Thursday. States she has not had any changes to her medications. States she still has not been able to make it to [place], needs someone to go with her. States she is using her oxygen as needed, checks her pulse ox, running 95-96%. Completed SDOH questions. Pt states that she still has granddaughter, she wants to go live with her mother, working on this at this time. documented in this encounter Plan of Treatment Upcoming Encounters Date Type Department Care Team (Late st Contact Info) Description 01/04/2025 10:30 AM EDT Office Visit [facility] FM 100 112 [facility] [address] [place] [address] Catracho Mills MD 112 [facility] 100 [place] [address] documented as of this encounter Visit Diagnoses Diagnosis Generalized anxiety disorder (CMS/HCC)- Primary Generalized anxiety disorder Acquired hypothyroidism (CMS/HCC) Unspecified hypothyroidism Chronic pain syndrome Spondylosis of lumbar region [...] Score: 7 08/13/19 24 10:00 AM EST A fall risk assessment has been complete d for the patient 10/11/2024 7:50 AM EDT documented as of this encounter Care Teams Surfacer Relationship Specialty Start Date End Date Catracho Mills MD [address] [place] [address] PCP - [employer] 07/27/22 Catracho Mills MD [address] [place] [address] PCP - General Family Medicine 01/05/23 Payal Gaona DO [address] [place] [address] Referring Physician Neurology 09/03/23 Aimee Truong, RN Registered Nurse Family Medicine 12/23/23 documented as of this encounter
--- OUTSIDE RECORDS SUMMARY | 2025-01-03 21:51 | XMS_ITS | Encounter Summary ---
Author Organization [facility] Address [address] [place] [address] Care Team Providers Care Seconds Grader Name Role Phone Catracho Mills MD Unavailable [phone] Catracho Mills MD Primary Care Provider [phone] Payal Gaona DO Unavailable [phone] Aimee Truong RN Unavailable [phone] Encounter Details Date Type Department Care Team (Late st Contact Info) Description 12/30/2024 Patient Outreach [facility] [address] [place] [address] Apoorva Bruno LSW Social History Tobacco Use Types Packs/Day Years [...] How often do you attend chur or rastafari services? Never 12/23/2024 Do you belong to any clubs o r organizations such as faith groups, unions, fraternal or athletic groups, or [...] Score 0 10/04/2024 [facility] - Occupational Stress Questionnaire Answer Date [...] any time in the past 12 m [facility], were you homeless or living in a prison (including now)? No 12/23/2024 Education Answer Date [...] on file documented as of this encounter Progress Notes * ARNEL Guerra - 12/30/2024 12:20 PM EDT Chart reviewed. Contacted pt for monthly outreach. She is scheduled for routine ov 01/04 at 10:30. Pt is reminded of this. States she has been doing okay. She reports increased pain with the humidity. Denies any recent falls. Admits her health is not good. Pt shares some family stressors she is currently dealing with. Active listening and support provided. Pt also has been experiencing financialstress. She recently had annual telephone meeting with Judith and receives some benefits. She is awareof community resources. She denies any immediate needs today. Appreciative of the call. documented in this encounter Plan of Treatment Upcoming Encounters Date Type Department Care Team (Late st Contact Info) Description 01/04/2025 10:30 AM EDT Office Visit [facility] FM 100 [address] [facility] 100 [place] [address] Catracho Mills MD 112 [facility] 100 [place] [address] (Fax) documented as of this encounter Visit Diagnoses Diagnosis Chronic pain syndrome- Primary White matter disease Chronic respiratory failure with hypoxia (CMS/HCC) Chronic pain syndrome Spondylosis of lumbar region [...] documented as of this encounter Care Teams Seconds Grader Relationship Specialty Start Date End Date Catracho Mills MD [address] [address] (Fax) PCP - [employer] 07/27/22 Catracho Mills MD 112 [facility] 100 [place] [address] (Fax) PCP - General Family Medicine 01/05/23 Payal Gaona DO [address] [place] [address] Referring Physician Neurology 09/03/23 Aimee Truong, IGOR Registered Nurse Family Medicine 12/23/23 documented as of this encounter
--- OUTSIDE RECORDS SUMMARY | 2025-01-03 21:51 | XMS_ITS | Encounter Summary ---
Author Organization [facility] Address [address] [place] [address] Care Team Providers Care Brand Strategy Manager Name Role Phone Catracho Mills MD Unavailable [phone] Catracho Mills MD Primary Care Provider [phone] Payal Gaona DO Unavailable [phone] Aimee Truong RN Unavailable [phone] Encounter Details Date Type Department Care Team (Late st Contact Info) Description 12/20/2024 Patient Outreach [facility] [address] [place] [id number] Apoorva Bruno LSW Social History Tobacco Use Types Packs/Day Years Used Date Smoking Tobacco: Former Cigarettes Smokeless Tobacco: Never Alcohol Use Standard Drinks/Week Comments Not Currently 0 (1 standard drink = 0.6 oz pure alcohol) Caffeine intake: drinks decaf PHQ-2 Answer Date Recorded Patient Health Questionnaire-2 Score 0 10/04/2024 Education Answer Date Recorded What is the [...] encounter Progress Notes * ARNEL Guerra - 12/20/2024 2:59 PM EDT Message from pt requesting an increase in Mirtazapine to 40 mg from current dose of 30 mg. States she is only sleeping about 2 hours a night, and she is so exhausted. * Catracho Mills MD - 12/20/2024 2:59 PM EDT I did increase her dose and sent a 30 day prescription in. She has not an appointment January 04 then we can review at this point. * ARNEL Guerra - 12/20/2024 2:59 PM EDT Message left notifying pt. <December 20, 2024, 16:15 - ARNEL Guerra> Pt returns call. Notified of medication and reminded of appt in December. documented in this encounter Plan of Treatment Upcoming Encounters Date Type Department Care Team (Late st Contact Info) Description 01/04/2025 10:30 AM EDT Office Visit [facility] 100 [address] [facility] [address] [place] [address] Catracho Mills MD 112 [facility] 100 [place] [address] documented as of this encounter Visit Diagnoses Diagnosis Chronic fatigue- Primary Other malaise and fatigue White matter disease Sleep arousal disorder Chronic pain syndrome Spondylosis of lumbar region [...] documented as of this encounter Care Teams Brand Strategy Manager Relationship Specialty Start Date End Date Catracho Mills MD [address] [place] [address] PCP - [employer] 07/27/22 Catracho Mills MD [address] [place] [address] PCP - General Family Medicine 01/05/23 Payal Gaona DO [address] [place] [address] Referring Physician Neurology 09/03/23 Aimee Truong, RN Registered Nurse Family Medicine 12/23/23 documented as of this encounter
--- OUTSIDE RECORDS SUMMARY | 2025-01-03 21:51 | XMS_ITS | Encounter Summary ---
Author Organization [facility] Address [address] [facility] [place] [address] Care Team Providers Care Corporate Training Manager Name Role Phone Catracho Mills MD Unavailable [phone] Catracho Mills MD Primary Care Provider [phone] Payal Gaona DO Unavailable [phone] Aimee Truong RN Unavailable [phone] Encounter Details Date Type Department Care Team (Late st Contact Info) Description 03/15/2024 Abstract [facility] [address] [place] [address] Catracho Mills MD [address] [place] [address] Social History Tobacco Use Types Packs/Day Years [...] [address] [place] [address] Catracho Mills MD [address] [place] [address] documented as of this encounter Visit Diagnoses Not on filedocumented in this encounter Additional Health Concerns Assessment Noted Time PHQ-9 Depression Total Score: 7 08/13/19 24 10:00 AM EST documented as of this encounter Care Teams Corporate Training Manager Relationship Specialty Start Date End Date Catracho Mills MD [address] [facility] 100 [place] [address] PCP - [employer] 07/27/22 Catracho Mills MD 112 [facility] 100 [place] [address] (Fax) PCP - General Family Medicine 01/05/23 Payal Gaona DO [address] [place] [address] Referring Physician Neurology 09/03/23 Aimee Truong, RN Registered Nurse Family Medicine 12/23/23 documented as of this encounter
--- OUTSIDE RECORDS SUMMARY | 2025-01-03 21:51 | XMS_ITS | Encounter Summary ---
Author Organization [facility] Address [address] [place] [address] Care Team Providers Care Pipe Insulator Name Role Phone Catracho Mills MD Unavailable [phone] Catracho Mills MD Primary Care Provider [phone] Payal Gaona DO Unavailable [phone] Aimee Truong RN Unavailable [phone] Reason for Visit * Reason Comments Med Refill Encounter Details Date Type Department Care Team (Late st Contact Info) Description 12/29/2024 Refill [facility] [address] [place] [address] Catracho Mills MD [address] [place] [address] (Fax) Chronic pain syndrome Social History Tobacco Use Types Packs/Day Years [...] How often do you attend chur or restorationism services? Never 12/23/2024 Do you belong to any clubs o r organizations such as scientologist groups, unions, fraternal or athletic groups, or [...] Recorded Patient Health Questionnaire-2 Score 0 10/04/2024 [facility] [place] [facility] Occupat ional Health - Occupational Stress Questionnaire Answer [...] any time in the past 12 m [facility], were you homeless or living in a correction (including now)? No 12/23/2024 Education Answer Date [...] Visit [facility] [address] [facility] 100 [place] [address] Catracho Mills MD 112 [facility] 100 [place] [address] (Fax) documented as of this encounter Visit Diagnoses Diagnosis Chronic pain syndrome Chronic pain syndrome Spondylosis of lumbar [...] documented as of this encounter Care Teams Pipe Insulator Relationship Specialty Start Date End Date Catracho Mills MD [address] [address] PCP - [employer] 07/27/22 Catracho Mills MD [address] [address] PCP - General Family Medicine 01/05/23 Payal Gaona DO [address] [place] [address] Referring Physician Neurology 09/03/23 Aimee Truong, RN Registered Nurse Family Medicine 12/23/23 documented as of this encounter
--- OUTSIDE RECORDS SUMMARY | 2025-01-03 21:51 | XMS_ITS | Encounter Summary ---
Author Organization [facility] Address [address] [place] [address] Care Team Providers Care Formulator Name Role Phone Catracho Mills MD Unavailable [phone] Catracho Mills MD Primary Care Provider [phone] Payal Gaona DO Unavailable [phone] Aimee Truong RN Unavailable [phone] Encounter Details Date Type Department Care Team (Late st Contact Info) Description 12/23/2024 Telephone [facility] [address] [place] [id number] Aimee Truong, IGOR Social History Tobacco Use [...] How often do you attend chur or denominational services? Never 12/23/2024 Do you belong to any clubs o r organizations such as anabaptism groups, unions, fraternal or athletic groups, or [...] Recorded Patient Health Questionnaire-2 Score 0 10/04/2024 [facility]ational Stress Questionnaire Answer [...] any time in the past 12 m [facility], were you homeless or living in a [...] of Assessment Author 0 12/23/2024 3:28 PM EDT Aimee Truong, IGOR * Question Answer Date of Assessment Author Q1: How often do you have a drink containing alcohol? Never 12/23/2024 3:28 PM HÉCTORT Aimee Truong , RN Q2: How many drinks containing alcohol do you have on a typical day when you are drinking? Patient does not drink 12/23/2024 3:28 PM EDT Aimee Truong, RN Q3: How often do you have six or more drinks on one occasion? Never 12/23/2024 3:28 PM EDT Aimee Truong , RN documented as of this encounter Plan of Treatment Upcoming Encounters Date Type Department Care Team (Late st Contact Info) Description 01/04/2025 10:30 AM EDT Office Visit [facility] [address] [place] [address] Catracho Mills MD [address] [facility] 100 [place] [address] (Fax) documented as of this encounter Visit [...] documented as of this encounter Care Teams Formulator Relationship Specialty Start Date End Date Catracho Mills MD [address] [place] [address] (Fax) PCP - [employer] 07/27/22 Catracho Mills MD [address] [facility] 100 [place] [address] (Fax) PCP - General Family Medicine 01/05/23 Payal Gaona DO [address] [place] [address] Referring Physician Neurology 09/03/23 Aimee Truong, IGOR Registered Nurse Family Medicine 12/23/23 documented as of this encounter
--- OUTSIDE RECORDS SUMMARY | 2025-01-03 21:51 | XMS_ITS | Encounter Summary ---
Author Organization [facility] Address [address] [place] [address] Care Team Providers Care Residential Recycle Driver Name Role Phone Catracho Mills MD Unavailable [phone] Catracho Mills MD Primary Care Provider [phone] Payal Gaona DO Unavailable [phone] Aimee Truong RN Unavailable [phone] Encounter Details Date Type Department Care Team (Late st Contact Info) Description 01/05/2024 Abstract [facility] [address] [facility] [id number] Catracho Mills MD 112 [facility] 100 [place], [place] [id number] Social History Tobacco Use Types Packs/Day Years [...] [address] [place] [address] Catracho Mills MD [address] [facility] 100 [place] [address] documented as of this encounter Visit Diagnoses Not on filedocumented in this encounter Additional Health Concerns Assessment Noted Time PHQ-9 Depression Total Score: 7 08/13/19 24 10:00 AM EST documented as of this encounter Care Teams Residential Recycle Driver Relationship Specialty Start Date End Date Catracho Mills MD [address] [facility] 100 [place] [address] PCP - [employer] 07/27/22 Catracho Mills MD [address] [facility] 100 [place] [address] (Fax) PCP - General Family Medicine 01/05/23 Payal Gaona DO [address] [place] [address] Referring Physician Neurology 09/03/23 Aimee Truong, RN Registered Nurse Family Medicine 12/23/23 documented as of this encounter
--- OUTSIDE RECORDS SUMMARY | 2025-01-03 21:51 | XMS_ITS | Encounter Summary ---
Author Organization [facility] Address [address] [place] [address] Care Team Providers Care Hydroelectric Systems Technician Name Role Phone Catracho Mills MD Unavailable [phone] Catracho Mills MD Primary Care Provider [phone] Payal Gaona DO Unavailable [phone] Aimee Truong RN Unavailable [phone] Encounter Details Date Type Department Care Team (Late st Contact Info) Description 12/30/2023 Abstract [facility] [address] [facility] [place] [address] Catracho Mills MD 112 [facility] 100 [place], [place] [id number] Social History Tobacco Use Types Packs/Day Years [...] [address] [place] [address] Catracho Mills MD [address] [facility] [address] [place] [address] documented as of this encounter Visit Diagnoses Not on filedocumented in this encounter Additional Health Concerns Assessment Noted Time PHQ-9 Depression Total Score: 7 08/13/19 24 10:00 AM EST documented as of this encounter Care Teams Hydroelectric Systems Technician Relationship Specialty Start Date End Date Catracho Mills MD [address] [facility] [address] [place] [address] PCP - [employer] 07/27/22 Catracho Mills MD [address] [facility] 100 [place] [address] (Fax) PCP - General Family Medicine 01/05/23 Payal Gaona DO [address] [place] [address] Referring Physician Neurology 09/03/23 Aimee Truong, RN Registered Nurse Family Medicine 12/23/23 documented as of this encounter
--- OUTSIDE RECORDS SUMMARY | 2025-01-03 21:51 | XMS_ITS | Encounter Summary ---
Author Organization [facility] Address [address] [facility] [address] Care Team Providers Care Pattern Data Operator Name Role Phone Catracho Mills MD Unavailable [phone] Catracho Mills MD Primary Care Provider [phone] Payal Gaona DO Unavailable [phone] Aimee Truong RN Unavailable [phone] Encounter Details Date Type Department Care Team (Late st Contact Info) Description 01/18/2024 Abstract [facility] [address] [place] [address] Catracho Mills MD [address] [place] [address] Social History Tobacco Use Types Packs/Day Years [...] [address] [place] [address] Catracho Mills MD [address] [place] [address] documented as of this encounter Visit Diagnoses Not on filedocumented in this encounter Additional Health Concerns Assessment Noted Time PHQ-9 Depression Total Score: 7 08/13/19 24 10:00 AM EST documented as of this encounter Care Teams Pattern Data Operator Relationship Specialty Start Date End Date Catracho Mills MD [address] [facility] 100 [place] [address] PCP - [employer] 07/27/22 Catracho Mills MD [address] [facility] 100 [place] [address] (Fax) PCP - General Family Medicine 01/05/23 Payal Gaona DO [address] [place] [address] Referring Physician Neurology 09/03/23 Aimee Truong, RN Registered Nurse Family Medicine 12/23/23 documented as of this encounter
--- OUTSIDE RECORDS SUMMARY | 2025-01-03 21:51 | XMS_ITS | Encounter Summary ---
Author Organization [facility] Address [address] [facility] [place] [address] Care Team Providers Care Independent Living Advisor Name Role Phone Catracho Mills MD Unavailable [phone] Catracho Mills MD Primary Care Provider [phone] Payal Gaona DO Unavailable [phone] Aimee Truong RN Unavailable [phone] Encounter Details Date Type Department Care Team (Late st Contact Info) Description 03/15/2024 Abstract [facility] [address] [place] [address] Catracho Mills MD [address] [place] [address] Social History Tobacco Use Types Packs/Day Years [...] [address] [place] [address] Catracho Mills MD [address] [place] [address] documented as of this encounter Visit Diagnoses Not on filedocumented in this encounter Additional Health Concerns Assessment Noted Time PHQ-9 Depression Total Score: 7 08/13/19 24 10:00 AM EST documented as of this encounter Care Teams Independent Living Advisor Relationship Specialty Start Date End Date Catracho Mills MD [address] [facility] 100 [place] [address] PCP - [employer] 07/27/22 Catracho Mills MD [address] [facility] 100 [place] [address] (Fax) PCP - General Family Medicine 01/05/23 Payal Gaona DO [address] [place] [address] Referring Physician Neurology 09/03/23 Aimee Truong, RN Registered Nurse Family Medicine 12/23/23 documented as of this encounter
--- OUTSIDE RECORDS SUMMARY | 2025-01-03 21:51 | XMS_ITS | Encounter Summary ---
Author Organization [facility] Address [address] [facility] [place] [address] Care Team Providers Care Crude Oil Driver Name Role Phone Catracho Mills MD Unavailable [phone] Catracho Mills MD Primary Care Provider [phone] Payal Gaona DO Unavailable [phone] Aimee Truong RN Unavailable [phone] Encounter Details Date Type Department Care Team (Late st Contact Info) Description 09/05/2024 Orders Only [facility] [address] [place] [address] Catracho Mills MD [address] [place] [address] Social History Tobacco Use Types Packs/Day Years [...] [address] [place] [address] Catracho Mills MD [address] [place] [address] documented as of this encounter Visit Diagnoses Not on filedocumented in this encounter Additional Health Concerns Assessment Noted Time PHQ-9 Depression Total Score: 7 08/13/19 24 10:00 AM EST documented as of this encounter Care Teams Crude Oil Driver Relationship Specialty Start Date End Date Catracho Mills MD [address] [place] [facility] 100 [place] [address] PCP - [employer] 07/27/22 Catracho Mills MD [address] [place] [facility] 100 [place] [address] (Fax) PCP - General Family Medicine 01/05/23 Payal Gaona DO [address] [place] [address] Referring Physician Neurology 09/03/23 Aimee Truong, RN Registered Nurse Family Medicine 12/23/23 documented as of this encounter
--- OUTSIDE RECORDS SUMMARY | 2025-01-03 21:51 | XMS_ITS | Clinical Summary ---
Author Organization [facility] [employer] Address [address] [place] [address] Care Team Providers Care Peanut Blancher Name Role Phone Catracho Mills MD Primary Care Provider [phone] Allergies Active Allergy Reactions Criticality Noted Date Comments Moxifloxacin Hives 11/25/2023 Buspirone 01/14/2023 Other Reaction(s): angry Cephalexin 11/28/2013 Other Reaction(s): papular rash to body Codeine Other (See Comments) 11/25/2023 nightmares Iron 07/03/2015 Meperidine 06/21/2024 Mirtazapine 06/21/2024 Ibuprofen Other (See Comments) High 11/25/2023 GI BLEED Niacin And Related Hives 11/25/2023 Penicillins Rash Low 07/14/2013 Trazodone 01/14/2023 Other Reaction(s): iritable Varenicline 11/28/2013 Other Reaction(s): agitation Medications baclofen (LIORESAL) 20 MG tablet Take 0.5 tablets by mouth 2 times daily (with meals) 1/2 tab morning and lunch Active DULoxetine (CYMBALTA) 20 MG extended release capsule Take 2 capsules by mouth daily Active traMADol (ULTRAM) 50 MG tablet Take 2 tablets by mouth 4 times daily (before meals and nightly). Active Cholecalciferol (VITAMIN D3) 125 MCG (5000 UT) TABS Take 1 tablet by mouth daily Active gabapentin (NEURONTIN) 100 MG capsule Take 1 capsule by mouth 3 times daily. Active levothyroxine (SYNTHROID) 150 MCG tablet Take 175 mcg by mouth in the morning and at bedtime Active spironolactone (ALDACTONE) 25 MG tablet Take 2 tablets by mouth daily Active nabumetone (RELAFEN) 750 MG tablet Take 2 tablets by mouth daily Active busPIRone (BUSPAR) 15 MG tablet Take 15 mg by mouth 2 times daily (with meals) 1 tab morning & lunch Active mirtazapine (REMERON) 30 MG tablet Take 1 tablet by mouth nightly Active busPIRone (BUSPAR) 15 MG tablet Take 30 mg by mouth at bedtime Active albuterol sulfate HFA (PROVENTIL;VENTOLIN ;PROAIR) 108 (90 Base) MCG/ACT inhaler Inhale 2 puffs into the lungs every 6 hours as needed for Wheezing 18 g 3 12/02/19 24 Active MJJ-VVH-Osjjntd E (OMEGA-3 COMPLEX PO) Take 1 capsule by mouth daily Active pantoprazole (PROTONIX) 40 MG tabletIndications:P t has been taking 1 tab bid Take 1 tablet by mouth 2 times daily (before meals) Indications: Pt has been taking 1 tab bid 60 tablet 3 05/17/20 24 Active Calcium Citrate 1040 MG TABS Take 250 mg by mouth 2 times daily Active glucosamine-chondro itin 750-600 MG TABS tablet Take 2 tablets by mouth daily Active ipratropium 0.5 mg-albuterol 2.5 mg (DUONEB) 0.5-2.5 (3) MG/3ML SOLN nebulizer solution Three times daily 11/17/19 24 Active [place]-3 Fatty Acids (FISH OIL) 1000 MG CPDR Take by mouth Active zinc gluconate 50 MG tablet Take 1 tablet by mouth See Admin Instructions Active vitamin C (ASCORBIC ACID) 500 MG tablet Take 2 tablets by mouth daily Active b complex vitamins capsule Take 1 capsule by mouth daily Active famotidine (PEPCID) 20 MG tablet Take 1 tablet by mouth 2 times daily 05/13/20 24 Active iron polysaccharides (NIFEREX) 150 MG capsule Take 1 capsule by mouth every 48 hours 11/21/19 24 Active Active Problems Problem Noted Date Diagnosed Date PAF (paroxysmal atrial fibrillation) 12/03/2023 GI bleed 11/25/2023 Acute anemia 11/24/2023 Duodenal ulcer 11/24/2023 Tobacco user 11/17/2023 Chronic respiratory failure with hypoxia 024 Arthritis of both knees 01/06/2023 Chronic pain syndrome 01/06/2023 Dependence on supplemental oxygen 01/06/2023 Gastroesophageal reflux disease 01/06/2023 Generalized anxiety disorder 01/06/2023 Peripheral venous insufficiency 01/06/2023 Sleep dysfunction with arousal disturbance 01/06 Resolved Problems Problem Noted Date Diagnosed Date Resolved Date GIB (gastrointestinal bleeding) 11/25/2023 12/02/2023 Encounters Date Type Department Care Team Description 11/16/2024 Prep for Procedure [facility] [address] [facility] [address] [place] [address] Lizbet Ugarte MD from Last 3 Months Social History Tobacco Use Types Packs/Day Years Used Date Smoking Tobacco: Former Cigarettes 0.5 50 Q uit: 03/22/2024 Smokeless Tobacco: Never Tobacco Cessation:Counseling Given: Not Answered Alcohol Use Standard Drinks/Week Comments Not Currently 0 (1 standard drink = 0.6 oz pur e alcohol) [facility] Utilities Answer Date Recorded In the past 12 months has th e [employer], gas, oil, or water [employer] threatened to shut off services in your home? Patient declined 11/25/2023 Hunger Vital Sign Answer Date Recorded Within the past 12 months, y ou worried that your food would run out before you got the money to buy more. Never true 11/25/19 Within the past 12 months, t he food you bought just didn't last and you didn't have money to get more. Never true 11/25/2023 PRAPARE - Transportation Answer Date Re corded In the past 12 months, has l ack of transportation kept you from medical appointments or from getting medications? Patient declined 11/25/2023 In the past 12 months, has l ack of transportation kept you from meetings, work, or from getting things needed for daily living? Patient declined 11/25/2023 Housing Stability Vital Sign Answer Leandro e Recorded In the last 12 months, was t here a time when you were not able to pay the mortgage or rent on time? Patient declined 11/25/19 In the last 12 months, how many places have you lived? 1 11/25/2023 In the last 12 months, was t here a time when you did not have a steady place to sleep or slept in a mcc (including now)? Patient declined 11/25/2023 Food Insecurity Answer Date Recorded Within the past 12 months, y ou worried that your food would run out before you got the money to buy more. 1 11/25/2023 Within the past 12 months, t he food you bought just didn't last and you didn't have money to get more. 1 11/25/2023 Interpersonal Safety Domain Source: IP Abuse Scr eening Answer Date Recorded Read-Only, Retired: Physical Abuse Denies 11/25/2023 Read-Only, Retired: Verbal Abuse Denies 11/25/2023 Read-Only, Retired: Emotional abuse Denies 11/25/2023 Read-Only, Retired: Financial Abuse Denies 11/25/2023 Read-Only, Retired: Sexual abuse Denies 11/25/2023 Comments No Sex and Gender Information Value Date Recorded Sex Assigned at Not on file Legal Sex Female 10:45 PM EDT Gender Identity Not on file Sexual Orientation Not on file Last Filed Vital Signs Vital Sign Reading Time Taken Comments Blood Pressure 131/65 05/17/2024 1:10 PM EDT Pulse 115 05/17/2024 1:10 PM EDT Temperature 36.6 C (97.9 F) 04/12/2024 11:40 AM EDT Respiratory Rate 21 04/12/2024 11:40 AM EDT Oxygen Saturation 93% 04/12/2024 11:40 AM EDT Inhaled Oxygen Concentration - - Weight 64 kg (141 lb) 07/28/2024 2:25 PM EST Height 162.6 cm (5' 4 ) 07/28/2024 2:25 PM EST Body Mass Index 24.2 07/28/2024 2:25 PM EST Plan of Treatment Health Maintenance Due Date Last Done Comments Depression Screen 1960 Hepatitis C screen 1966 Lung Cancer Screening &/or Counseling 1998 Shingles vaccine (1 of 2) 1998 DEXA (modify frequency per FRAX score) 2003 DTaP/Tdap/Td vaccine (1 - Tdap) 11/12/2004 11/11/2004 Respiratory Syncytial Virus (RSV) or age 60 yrs+ (1 - 1-dose 75+ series) 2023 COVID-19 Vaccine (3 2023-2 5 season) 2024 12/03/2020, 11/12/2020 Annual Wellness Visit (Medicare Advantage) 07/27/2024 Flu vaccine (Season Ended) 02/24/202505/03, 09/26/2019, 06/26/2018 Pneumococcal 50+ years Vaccine Completed 0 09/26/2019, 06/26/2018, 11/11/2004 Hepatitis A vaccine Aged Out No longe r eligible based on patient's age to complete this topic Hepatitis B vaccine Aged Out No longe r eligible based on patient's age to complete this topic Hib vaccine Aged Out No longer eligi ble based on patient's age to complete this topic Meningococcal (ACWY) vaccine Aged Out No longer eligible based on patient's age to complete this topic Meningococcal B vaccine Aged Out No l onger eligible based on patient's age to complete this topic Polio vaccine Aged Out No longer elig ible based on patient's age to complete this topic Insurance HUMANA MEDICARE HUMANA MEDICARE Advance Directives Documents on File Type Date Recorded Patient Railway Head Tender Expl anation ACP-Advance Directive 12/04/2023 1:41 PM * Full Code (Latest Code Status on File) Date Activated Date Inactivated Comments 11/25/2023 4:23 AM 12/03/2023 8:11 PM * Full Code Date Activated Date Inactivated Comments 11/25/2023 12:02 AM 11/25/2023 4:07 AM Healthcare Agents on File Name Relationship [facility] Pearl Julien Child Primary Decision Maker Radha Ventura Friend Secondary Decision Maker Care Teams Peanut Blancher Relationship Specialty Start Date End Date Catracho Mills MD PCP - General 01/29/24
--- OUTSIDE RECORDS SUMMARY | 2025-01-03 21:51 | XMS_ITS | Encounter Summary ---
Author Organization [facility] Address [address] [place] [address] Care Team Providers Care Advisory Services Associate Name Role Phone Catracho Mills MD Unavailable [phone] Catracho Mills MD Primary Care Provider [phone] Payal Gaona DO Unavailable [phone] Aimee Truong RN Unavailable [phone] Encounter Details Date Type Department Care Team (Late st Contact Info) Description 12/29/2024 Patient Outreach [facility] [address] [place] [address] Aimee Truong, IGOR Social History Tobacco Use [...] How often do you attend chur or hoahaoism services? Never 12/23/2024 Do you belong to any clubs o r organizations such as cheondoism groups, unions, fraternal or athletic groups, or [...] Recorded Patient Health Questionnaire-2 Score 0 10/04/2024 [facility] - Occupational Stress Questionnaire [...] any time in the past 12 m [facility], were you homeless or living in a intermediate (including now)? No 12/23/2024 Education Answer Date [...] Progress Notes * Aimee Truong RN - 12/29/2024 9:39 AM EDT Pt LM for CM regarding Baclofen. Returned call to ptabiodun that Rx [facility] on 12/26/24. documented in this encounter Plan of Treatment Upcoming Encounters Date Type Department Care Team (Late st Contact Info) Description 01/04/2025 10:30 AM EDT Office Visit [facility] [address] [place] [address] Catracho Mills MD [address] [address] (Fax) documented as of this encounter Visit Diagnoses Diagnosis Chronic pain syndrome- Primary Generalized anxiety disorder (CMS/HCC) Generalized anxiety disorder Acquired hypothyroidism (CMS/HCC) Unspecified [...] documented as of this encounter Care Teams Advisory Services Associate Relationship Specialty Start Date End Date Catracho Mills MD [address] [address] PCP - [employer] 07/27/22 Catracho Mills MD [address] [address] PCP - General Family Medicine 01/05/23 Payal Gaona DO [address] [place] [address] Referring Physician Neurology 09/03/23 Aimee Truong, IGOR Registered Nurse Family Medicine 12/23/23 documented as of this encounter
--- OUTSIDE RECORDS SUMMARY | 2025-01-03 21:51 | XMS_ITS | Encounter Summary ---
Author Organization [facility] Address [address] [place] [address] Care Team Providers Care Photo Offset Printer Name Role Phone Catracho Mills MD Unavailable [phone] Catracho Mills MD Primary Care Provider [phone] Payal Gaona DO Unavailable [phone] Aimee Truong RN Unavailable [phone] Encounter Details Date Type Department Care Team (Late st Contact Info) Description 04/21/2023 Abstract [facility] [address] [facility] [place] [address] Payal Gaona DO Social History [...] [address] [place] [address] Catracho Mills MD [address] [place] [address] (Fax) documented as of this encounter Visit Diagnoses Not on filedocumented in this encounter Care Teams Photo Offset Printer Relationship Specialty Start Date End Date Catracho Mills MD [address] [place] [address] (Fax) PCP - [employer] 07/27/22 Catracho Mills MD [address] [place] [address] PCP - General Family Medicine 01/05/23 Payal Gaona DO [address] [place] [address] Referring Physician Neurology 09/03/23 Aimee Truong, RN Registered Nurse Family Medicine 12/23/23 documented as of this encounter
--- OUTSIDE RECORDS SUMMARY | 2025-01-03 21:51 | XMS_ITS | Encounter Summary ---
Author Organization [facility] Address [address] [place] [address] Care Team Providers Care Practice Clinician Name Role Phone Catracho Mills MD Unavailable [phone] Catracho Mills MD Primary Care Provider [phone] Payal Gaona DO Unavailable [phone] Aimee Truong RN Unavailable [phone] Encounter Details Date Type Department Care Team (Late st Contact Info) Description 04/13/2024 Abstract [facility] [address] [place] [address] Unallocated, Noms Provider, [address] [place] [address] Social History Tobacco Use Types Packs/Day Years [...] [address] [place] [address] Catracho Mills MD [address] [place] [address] documented as of this encounter Visit Diagnoses Not on filedocumented in this encounter Additional Health Concerns Assessment Noted Time PHQ-9 Depression Total Score: 7 08/13/19 24 10:00 AM EST documented as of this encounter Care Teams Practice Clinician Relationship Specialty Start Date End Date Catracho Mills MD [address] [facility] 100 [place] [address] PCP - [employer] 07/27/22 Catracho Mills MD [address] [facility] 100 [place] [address] (Fax) PCP - General Family Medicine 01/05/23 Payal Gaona DO [address] [place] [address] Referring Physician Neurology 09/03/23 Aimee Truong, IGOR Registered Nurse Family Medicine 12/23/23 documented as of this encounter
--- OUTSIDE RECORDS SUMMARY | 2025-01-03 21:51 | XMS_ITS | Clinical Summary ---
Author Organization [facility] Address [address] [place] [address] Care Team Providers Care Paradichlorobenzene Tender Name Role Phone Catracho Sheriff MD Unavailable [phone] Catracho Sheriff MD Primary Care Provider [phone] Payal Gaona DO Unavailable [phone] Aimee Truong RN Unavailable [phone] Allergies Active Allergy Reactions Criticality Noted Date Comments Buspirone 01/14/2023 Other Reaction(s): angry Cephalexin 01/14/2023 Other Reaction(s): papular rash to body Codeine 01/14/2023 Other Reaction(s): nightmares Ibuprofen High 11/25/2023 Other Reaction(s): Other (See Comments) GI BLEED Meperidine Hcl Low 11/17/2023 Other Reaction(s): other Moxifloxacin 01/14/2023 Other Reaction(s): burning, skin swelling, turn red Niacin And Related Hives 11/25/2023 Penicillins Rash Low 01/14/2023 Mirtazapine Hallucinations 07/23/2023 Trazodone 01/14/2023 Other Reaction(s): iritable Varenicline 01/14/2023 Other Reaction(s): agitation Medications calcium citrate 1040 MG tablet Take 250 mg by mouth in the morning and 250 mg before bedtime. Active zinc gluconate 50 MG tablet Take 50 mg by mouth See administration instructions. 1/2 tablet= 25mg Orally Once a day for 30 day(s) Active STRONTIUM CITRATE Take 2 tablets by mouth Daily Active cholecalciferol (Vitamin D-3) 25 MCG (1000 UT) capsule Take 3,000 Units by mouth in the morning. Summer Dose. Active cholecalciferol (Vitamin D-3) 125 MCG (5000 UT) tablet Take 5,000 Units by mouth in the morning. Winter dose. Active pantoprazole (ProtoNix) 40 MG EC tablet Take 40 mg by mouth 11/21/19 24 Active iron polysaccharides (Nu-Iron,Niferex) 150 MG capsule Take 150 mg by mouth every other day 11/21/19 24 Active ipratropium-albute rol (Duo-Neb) 0.5-2.5 mg/3 mL nebulizer solutionIndication s:Mucopurulent chronic bronchitis (CMS/HCC) Take 3 mL by nebulization in the morning and 3 mL at noon and 3 mL in the evening and 3 mL before bedtime. 1080 mL 1 12/16/19 24 Active Turmeric (QC TUMERIC COMPLEX PO) Take 500 mg by mouth Daily Active oxygen (O2) gas Inhale continuously via nasal canula; to maintain pulse ox between 90-94%. Active [place]-3 Fatty Acids (Fish Oil) 1000 MG capsule delayed-release Take by mouth Active glucosamine-chondr oitin 750-600 MG tablet tablet Take 2 tablets by mouth 1 (one) time each day Active b complex vitamins capsule Take 1 capsule by mouth Daily Active Ascorbic Acid (vitamin C) 1000 MG tablet Take 1,000 mg by mouth in the morning and 1,000 mg before bedtime. Active gabapentin (Neurontin) 100 MG capsuleIndications :Chronic pain syndrome Take 1 capsule (100 mg) by mouth in the morning and 1 capsule (100 mg) in the evening and 1 capsule (100 mg) before bedtime. 270 capsule 04/14/20 24 Active busPIRone (Buspar) 15 MG tabletIndications: Generalized anxiety disorder (CMS/HCC) Take 1 tablet at breakfast and 1 tablet lunch, and 2 tablets at bedtime. 360 tablet 04/14/20 24 Active DULoxetine (Cymbalta) [address] capsuleIndications :Chronic pain syndrome Take 2 capsules (40 mg) by mouth Daily 180 capsule 04/14/20 24 Active albuterol HFA (Ventolin HFA) 90 mcg/act inhalerIndications :Mucopurulent chronic bronchitis (CMS/HCC) Inhale 2 puffs every 6 (six) hours if needed for shortness of breath 18 g 11 06/21/20 24 Active famotidine (Pepcid) 20 MG tabletIndications: Duodenal stricture Take 1 tablet (20 mg) by mouth in the morning and 1 tablet (20 mg) before bedtime. 180 tablet 1 07/13/20 24 2024 Active spironolactone (Aldactone) 50 MG tabletIndications: Peripheral edema Take 1 tablet (50 mg) by mouth Daily Dose increase 90 tablet 1 07/13/20 24 2024 Active levothyroxine (Synthroid) 175 MCG tabletIndications: Postsurgical hypothyroidism (CMS/HCC) Take 1 tablet daily 90 tablet 1 10/05/19 25 Active traMADol (Ultram) 50 MG tabletIndications: Chronic pain syndrome Take 2 tablets (100 mg) by mouth in the morning and 2 tablets (100 mg) at noon and 2 tablets (100 mg) in the evening and 2 tablets (100 mg) before bedtime. 240 tablet 1 11/10/19 25 Active mirtazapine (Remeron) 45 MG tabletIndications: Sleep arousal disorder Take 1 tablet (45 mg) by mouth at bedtime 30 tablet 12/21/19 25 2024 Active baclofen (Lioresal) 20 MG tabletIndications: Chronic pain syndrome Take one half tablet in the morning, One half tablet at lunch, and 2 tablets in the evening 270 tablet 1 12/27/19 25 Active baclofen (Lioresal) 20 MG tabletIndications: Chronic pain syndrome Take one half tablet in the morning, One half tablet at lunch, and 2 tablets in the evening 270 tablet 1 07/13/20 24 2024 Disconti nued(Reo rder) mirtazapine (Remeron) 30 MG tabletIndications: Sleep arousal disorder Take 1 tablet (30 mg) by mouth at bedtime 90 tablet 1 10/05/19 25 2024 Disconti nued(Reo rder) Active Problems Problem Noted Date Diagnosed Date Mild protein-calorie malnutrition 12/27/2024 Overview (12/27/2024): Noted by JAZIEL Cobb MD last documented on [id number] Paroxysmal atrial fibrillation 12/27/2024 Overview (12/27/2024): [facility] last documented on [id number] 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, limited to breakdown of skin 02/02/2024 Gastrointestinal hemorrhage 11/25/2023 Duodenal ulcer 11/24/2023 Excessive use of nonsteroida l anti-inflammatory drugs (NSAIDs) 11/24/2023 Controlled substance agreement signed 10/15/2023 Chronic respiratory failure with hypoxia 024 Former smoker 07/23/2023 Allodynia 01/06/2023 Generalized anxiety disorder 01/06/2023 Arthritis of both knees 01/06/2023 Chronic fatigue 01/06/2023 Dependence on supplemental oxygen 01/06/2023 ESS (euthyroid sick syndrome) 01/06/2023 Failed back syndrome of lumbar spine 01/06/2023 Chronic pain syndrome 01/06/2023 Fibromyalgia 01/06/2023 Gastroesophageal reflux disease 01/06/2023 Mucopurulent chronic bronchitis 01/06/2023 Osteopenia of spine 01/06/2023 Osteoporosis of femur without pathological fract ure 01/06/2023 Postsurgical hypothyroidism 01/06/2023 Primary osteoarthritis, left ankle and foot 12/25 Primary osteoarthritis, right ankle and foot Sleep arousal disorder 01/06/2023 Spondylosis of lumbar region without myelopathy or radiculopathy 01/06/2023 Venous (peripheral) insufficiency 01/06/2023 Stasis dermatitis of both legs 01/06/2023 White matter disease 01/06/2023 Overview (08/13/2023): MRI brainstem; Supratentorial and brainstem. Polypharmacy 09/07/2020 At risk for falls 05/28/2018 Overweight 12/05/2015 Resolved Problems Problem Noted Date Diagnosed Date Resolved Date Acute anemia 11/24/2023 07/05/2024 Acute and chronic respirator y failure with hypercapnia 01/06/2023 08/13/2023 Acute and chronic respirator y failure with hypoxia 01/06/2023 08/13/2023 Chronic obstructive pulmonary disease 01/06/2023 08/13/2023 Difficulty in walking, not e lsewhere classified 01/06/2023 07/31/2023 Left maxillary sinusitis 01/06/2023 Recurrent major depressive d isorder, in partial remission (HCC) 01/06/2023 08/13/2023 Spondylosis of lumbosacral region 01/06/2023 08/13/2023 Varicose veins of right lowe r extremity with inflammation 01/06/2023 08/13/2023 Cigarette smoker 05/27/2021 07/31/2023 High risk medication use 09/07/202011/2023 Complication of surgical procedure 09/03/2020 07/31/2023 Simple chronic bronchitis 05/30/2016 Encounters Date Type Department Care Team Description 12/30/2024 Patient Outreach [facility] [address] [address] Apoorva Bruno LSW 12/29/2024 Patient Outreach [facility] [address] [place] [address] Aimee Truong RN 12/29/2024 Refill [facility] [address] [place] [address] Catracho Sheriff MD Chronic pain syndrome 12/23/2024 Telephone [facility] [address] [place] [address] Aimee Truong, IGOR 12/21/2024 Patient Outreach [facility] [address] [place] [address] Aimee Truong RN 12/20/2024 Patient Outreach [facility] [address] [place] [address] Apoorva Bruno LSW 11/30/2024 Patient Outreach [facility] [address] [place] [address] Apoorva Bruno LSW 11/18/2024 Patient Outreach [facility] [place] [id number] [place] [address] Aimee Truong, IGOR 11/09/2024 Telephone [facility] [place] [address] [place] [address] Apoorva Bruno, [facility] 11/01/2024 Patient Outreach [facility] [place] [address] [place] [address] Apoorva Bruno, [facility] 10/20/2024 Patient Outreach [facility] [place] [address] [place] [address] Aimee Truong, IGOR 10/12/2024 Telephone [facility] [address] [place] [address] Shanel Oconnor, PT PT Initial Eval (Referral needs to be sent back when Eval scheduled to get AUTH.); fu; Final attempt 10/06/2024 Patient Outreach [facility] [place] [address] [place] [address] Apoorva Bruno, [facility] 10/04/2024 9:30 AM EDT Office Visit [facility] [address] [place] [address] Catracho Sheriff MD Chronic pain syndrome (Primary Dx); Controlled substance agreement signed; Fibromyalgia; Sleep arousal disorder; Spondylosis of lumbar region without myelopathy or radiculopathy; Fall in home, subsequent encounter; Unsteady gait; Generalized weakness; Encounter for examination following treatment at hospital; Postsurgical hypothyroidism (CMS/HCC) ; Chronic fatigue; Former smoker; Overweight 10/04/2024 Bamboo flowsheet [facility] [address] [place] [address] Catracho Sheriff MD 10/04/2024 Travel from Last 3 Months Immunizations Immunization Administration Dates Next Due Influenza, High-dose Seasona l, Quadrivalent, Preservative Free 09/26/2019 Influenza, Recombinant, injectable, preservative free 05/03/2021 Influenza, injectable, quadrivalent, preservativ e free 06/26/2018 Pfizer Purple Cap SARS-CoV-2 Vaccination 021,11/12/2020 Pneumococcal Conjugate PCV 13 06/26/2018 Pneumococcal Polysaccharide PPSV23 09/26/2019, Td (adult), 5 Lf tetanus tox oid, preservative free, adsorbed 11/11/2004 Family History Medical History Relation Name Comments Cancer Brother 1 Heart attack Brother 2 Stroke Father Cancer Mother Relation Name Status Comments Brother 1 Brother 2 Brother 3 Alive Daughter Alive 1 daughter Father Mother Sister 2 sisters Son Alive 1 son Social History Tobacco Use Types Packs/Day Years Used Date Smoking Tobacco: Former Cigarettes Smokeless Tobacco: Never Tobacco Cessation:Counseling Given: Yes Alcohol Use Standard Drinks/Week Comments Not Currently [...] week 12/23/2024 How often do you attend [facility] or mu-ism services? Never 12/23/2024 Do you belong to any clubs o r organizations such as methodist groups, unions, fraternal or athletic groups, or [...] Recorded Patient Health Questionnaire-2 Score 0 10/04/2024 [facility] ional Health - Occupational Stress [...] any time in the past 12 m [facility], were you homeless or living in a retirement (including now)? No 12/23/2024 Education Answer Date [...] Sign Reading Time Taken Comments Blood Pressure 126/78 08/13/2023 9:58 AM EST Pulse 112 01/19/2024 9:19 AM EDT Temperature - - Respiratory Rate - - Oxygen Saturation 90% 01/19/2024 9:19 AM EDT Inhaled Oxygen Concentration - - Weight 64 kg (141 lb) 10/04/2024 9:40 AM EDT Height 162.6 cm (5' 4 ) 10/04/2024 9:40 AM EDT Body Mass Index 24.2 10/04/2024 9:40 AM EDT Plan of Treatment Upcoming Encounters Date Type Department Care Team (Late st Contact Info) Description 01/04/2025 10:30 AM EDT Office Visit [facility] [address] [facility] [address] [place] [address] Catracho Sheriff MD [address] [facility] [address] [place] [address] Health Maintenance Due Date Last Done Comments Influenza Vaccine (Season Ended) 2025 05/03/2021, 09/26/2019, 06/26/2018 Colonoscopy Discontinued 09/12/2013 Pneumococcal Vaccine: 65+ Years Completed 09/26/2019, 06/26/2018, 11/11/2004 Mammogram Discontinued 07/30/2023, 10/2023, 02/12/2021 CT Colonography Discontinued Colorectal Cancer Screening Discontinued FIT-DNA Discontinued FIT Discontinued FOBT Discontinued Sigmoidoscopy Discontinued Procedures Procedure Name Priority Date/Time Associated Diagnosis Comments MM TOMOSYNTHESIS SCREENING BI 07/30/2023 12:42 PM EST COLONOSCOPY Routine 09/12/2013 12:00 PM EST from Last 3 Months or Most Recently Relevant to Health Maintenance Results * MM TOMOSYNTHESIS SCREENING BI (07/30/2023 12:42 PM EST) Anatomical Region Laterality Modality Other 07/30/2023 12:4 2 PM EST Narrative 07/30/2023 12:43 [place] [address] Mammography Report Signed Patient: Jenny Ewing MR#: [id number] : 1950 Acct:[id number] Age/Sex: 72 / F ADM Date: 07/30/23 Loc: MAMMO Attending Dr: CATRACHO SHERIFF Ordering Physician: CATRACHO SHERIFF Results: Date of Service: 07/30/23 Follow Up: Procedure(s): MM tomosynthesis screening BI Accession Number(s): [id number] cc: CATRACHO SHERIFF Patient Name: JENNY EWING MR#: [id number] : 1950 Exam Date: 07/30/2023 Ordering Doctor: [...] Treatments None Family Cancers None LOCATION: The [facility] BREAST COMPOSITION: Almost entirely fatty. FINDINGS: DIAGNOSTIC [...] Signed By: 07/30/23 1243 DD/ 1242 TD/TT: [place] Printer: Procedure Note Radiology, Radiologist, MD - 07/30/2023 The [place] [id number] Mammography Report Signed Patient: Jenny Ewing SMR#: [id number] : 9Acct:[id number] Age/Sex: 72 / FADM Date: 07/30/23 Loc: MAMMO Attending Dr: CATRACHO SHERIFF Ordering Physician: CATRACHO SHERIFFResults: Date of Service: 07/30/23Follow Up: Procedure(s): MM tomosynthesis screening BI Accession Number(s): [id number] cc: CATRACHO SHERIFF Patient Name: JENNY EWING MR#: [id number] : 1950 Exam Date: 07/30/2023 Ordering Doctor: [...] Treatments None Family Cancers None LOCATION: [facility] BREAST COMPOSITION: Almost entirely fatty. FINDINGS: DIAGNOSTIC [...] M.D. Signed By:07/30/23 1243 DD/ 1242 TD/TT: Vigoureux Printer: us Catracho Sheriff MD [facility] Final Resu lt * Colonoscopy (09/12/2013 12:00 PM EST) Anatomical Region Laterality Modality Endoscopy 09/12/2013 12:0 0 PM EST Narrative 09/14/2013 12:00 PM EST PERFORMED AT [facility] LOCATION:[id number] Abnormal Procedure Note CONVERSION, GENERIC - 12/11/2022 PERFORMED AT [facility] LOCATION:[id number] Abnormal Catracho Sheriff MD ENDOSCOPY PROCEDURE ORDERABL ES Final Result from Last 3 Months or Most Recently Relevant to Health Maintenance Insurance [employer] MEDICARE ADVANTAGE Care Teams Paradichlorobenzene Tender Relationship Specialty Start Date End Date Catracho Sheriff MD [address] [place] [address] [facility] Catracho Sheriff MD [address] [place] [address] PCP - General Family Medicine 01/05/23 Payal Gaona DO [address] [place] [address] Referring Physician Neurology 09/03/23 Aimee Truong, IGOR Registered Nurse Family Medicine 12/23/23
--- OUTSIDE RECORDS SUMMARY | 2025-01-03 21:51 | XMS_ITS | Encounter Summary ---
Author Organization [facility] Address [address] [place] [address] Care Team Providers Care Water Fitness Instructor Name Role Phone Catracho Mills MD Primary Care Provider [phone] Encounter Details Date Type Department Care Team (Late st Contact Info) Description 11/16/2024 Prep for Procedure [facility] [address] [place] [address] Lizbet Ugarte MD [address] [facility] [address] [place] [address] Social History Tobacco Use Types Packs/Day Years Used Date Smoking Tobacco: Former Cigarettes 0.5 50 Q uit: 03/22/2024 Smokeless Tobacco: Never Alcohol Use Standard Drinks/Week Comments Not Currently 0 (1 standard drink = 0.6 oz pur e alcohol) [facility] Utilities Answer Date Recorded In the past 12 months has [employer], gas, oil, or water [employer] threatened to shut off services in your home? Patient declined 11/25/2023 Hunger Vital Sign Answer Date Recorded Within the past 12 months, y ou worried that your food would run out before you got the money to buy more. Never true 11/25/19 24 Within the past 12 months, t he [...] place to sleep or slept in a fdc (including now)? Patient declined 11/25/2023 Food Insecurity [...] as of this encounter Plan of Treatment Not on file documented as of this encounter Visit Diagnoses Not on filedocumented in this encounter Care Teams Water Fitness Instructor Relationship Specialty Start Date End Date Catracho Mills MD PCP - General 01/29/24 documented as of this encounter
--- OUTSIDE RECORDS SUMMARY | 2025-01-03 21:51 | XMS_ITS | Encounter Summary ---
Author Organization [facility] Address [address] [place] [address] Care Team Providers Care Live Truck Operator Name Role Phone Catracho Mills MD Unavailable [phone] Catracho Mills MD Primary Care Provider [phone] Payal Gaona DO Unavailable [phone] Aimee rTuong RN Unavailable [phone] Encounter Details Date Type Department Care Team (Late st Contact Info) Description 12/23/2023 Abstract [facility] [address] [facility] [place] [address] Catracho Mills MD 112 [facility] 100 [place], [place] [address] Social History Tobacco Use Types Packs/Day Years [...] [address] [place] [address] Catracho Mills MD [address] [facility] [address] [place] [address] documented as of this encounter Visit Diagnoses Not on filedocumented in this encounter Additional Health Concerns Assessment Noted Time PHQ-9 Depression Total Score: 7 08/13/19 24 10:00 AM EST documented as of this encounter Care Teams Live Truck Operator Relationship Specialty Start Date End Date Catracho Mills MD 112 [facility] [address] [place] [address] PCP - [employer] 07/27/22 Catracho Mills MD [address] [facility] 100 [place] [address] (Fax) PCP - General Family Medicine 01/05/23 Payal Gaona DO [address] [place] [address] Referring Physician Neurology 09/03/23 Aimee Truong, RN Registered Nurse Family Medicine 12/23/23 documented as of this encounter
--- OUTSIDE RECORDS SUMMARY | 2025-01-03 21:51 | XMS_ITS | Encounter Summary ---
Author Organization [facility] Address [address] [place] [address] Care Team Providers Care Brass Burnisher Name Role Phone Catracho Mills MD Unavailable [phone] Catracho Mills MD Primary Care Provider [phone] Payal Gaona DO Unavailable [phone] Aimee Truong RN Unavailable Encounter Details Date Type Department Care Team (Late st Contact Info) Description 03/25/2023 Abstract [facility] [address] [facility] [place] [address] Payal Gaona DO Social History [...] [address] [place] [address] Catracho Mills MD [address] [place] [address] (Fax) documented as of this encounter Visit Diagnoses Not on filedocumented in this encounter Care Teams Brass Burnisher Relationship Specialty Start Date End Date Catracho Mills MD [address] [place] [address] (Fax) PCP - [employer] 07/27/22 Catracho Mills MD [address] [place] [address] PCP - General Family Medicine 01/05/23 Payal Gaona DO [address] [place] [address] Referring Physician Neurology 09/03/23 Aimee Truong, RN Registered Nurse Family Medicine 12/23/23 documented as of this encounter
--- OUTSIDE RECORDS SUMMARY | 2025-01-03 21:51 | XMS_ITS | Clinical Summary ---
[facility] Address [id number] [address] [id number] Care Team Providers Care Yard Manager Name Role Phone Unavailable Primary Care Provider Unavailabl e Social History Tobacco Use Types Packs/Day Years Used Date Smoking Tobacco: Never Assessed Childcare Answer Date Recorded Childcare Unknown 01/04/2019 Employment Answer Date Recorded Employment Unknown 01/04/2019 Comments Unknown Sex and Gender Information Value Date Recorded Sex Assigned at Not on file Legal Sex Female 6:57 PM EDT Gender Identity Not on file Sexual Orientation Not on file Plan of Treatment Not on file Medical Devices Not on file
--- OUTSIDE RECORDS SUMMARY | 2025-01-03 21:51 | XMS_ITS | Encounter Summary ---
Author Organization [facility] Address [address] [place] [address] Care Team Providers Care Aircraft Engine Mechanic Overhaul Name Role Phone Catracho Mills MD Unavailable [phone] Catracho Mills MD Primary Care Provider [phone] Payal Gaona DO Unavailable Aimee Truong RN Unavailable [phone] Encounter Details Date Type Department Care Team (Late st Contact Info) Description 04/13/2024 Abstract [facility] [address] [place] [address] Unallocated, Noms Provider, [address] [place] [address] Social History Tobacco Use Types Packs/Day Years [...] [address] [place] [address] Catracho Mills MD [address] [place] [address] documented as of this encounter Visit Diagnoses Not on filedocumented in this encounter Additional Health Concerns Assessment Noted Time PHQ-9 Depression Total Score: 7 08/13/19 24 10:00 AM EST documented as of this encounter Care Teams Aircraft Engine Mechanic Overhaul Relationship Specialty Start Date End Date Catracho Mills MD [address] [facility] [address] [place] [address] PCP - [employer] 07/27/22 Catracho Mills MD [address] [facility] [address] [place] [address] (Fax) PCP - General Family Medicine 01/05/23 Payal Gaona DO [address] [place] [address] Referring Physician Neurology 09/03/23 Aimee Truong, IGOR Registered Nurse Family Medicine 12/23/23 documented as of this encounter
--- OUTSIDE RECORDS SUMMARY | 2025-01-03 21:54 | XMS_ITS | CCD ---
Author Organization [facility] Inform ion Partnership [facility] Care Team Providers Care Product Grader Name Role Phone JAZIEL, DR RAMIREZ Primary Care Unavailable JAZIEL, DR RAMIREZ Admitting Unavailable JAZIEL, DR RAMIREZ Attending Unavailable JAZIEL, DR RAMIREZ Consulting Unavailable JAZIEL, DR RAMIREZ Admitting Unavailable JAZIEL, DR RAMIREZ Attending Unavailable JAZIEL, DR RAMIREZ Consulting Unavailable JAZIEL, DR RAMIREZ Primary Care Unavailable Catracho Sheriff MD Unavailable Catracho Sheriff MD Primary Care Provider [phone] MD Catracho Sheriff Primary Care Provider [phone] DO Frantz Nieves Admit Provider MD Jaspal [...] Unavailable Catracho Sheriff MD Primary Care Provider [phone] Payal Gaona DO Unavailable Dionne RN, Aimee Unavailable Catracho Sheriff MD Unavailable Catracho Sheriff MD Primary Care Provider Catracho Sheriff MD Unavailable Catracho Sheriff MD Primary Care Provider CATRACHO SHERIFF Primary Care Unavailable CATRACHO SHERIFF Primary Care Unavailable SHANEL, AIJAZ Attending Unavailable SHANEL, AIJAZ Admitting Unavailable SHANEL, AIJAZ Attending Unavailable SHANEL, AIJAZ Admitting Unavailable CATRACHO SHERIFF Primary Care Unavailable CATRACHO SHERIFF Primary Care Unavailable CATRACHO SHERIFF Primary Care Unavailable Catracho Sheriff MD Primary Care Provider [phone] CATRACHO SHERIFF Attending Unavailable CATRACHO SHERIFF Attending Unavailable HEMECATRACHO GREEN Attending Unavailable HEMECATRACHO GREEN Attending Unavailable CATRACHO SHERIFF Attending Unavailable CATRACHO SHERIFF Attending Unavailable LEONILA ZAPATA Attending Unavailable LEONILA ZAPATA Attending Unavailable CATRACHO SHERIFF Attending Unavailable CATRACHO SHERIFF Attending Unavailable HEMECATRACHO GREEN Attending Unavailable HEMECATRACHO GREEN Attending Unavailable CATRACHO SHERIFF Attending Unavailable Allergies Allergy Classification Reported Allergen(s) Allergy Type Date of Onset Reaction(s) Facility (1 source) Cephalexin Drug Allergy 11-29-19 14 [facility] (1 source) Iron Drug Allergy 07-03-20 15 [facility] (1 source) moxifloxacin Drug Allergy 07-14-20 13 [facility] (1 source) Penicillins Drug allergy (disorder) 07-14-20 13 [facility] (1 source) Sulfonamides (Antibiotic) Drug allergy (disorder) 07-14-20 13 [facility] (1 source) varenicline Drug Allergy 11-29-19 14 [facility] (20 sources) busPIRone Drug Allergy 01-15-20 23 [facility] (20 sources) Cephalexin Drug Allergy 11-29-19 14 [facility] (20 sources) Codeine Drug Allergy 01-15-20 23 Other (See Comments) [facility] (20 sources) Mirtazapine Drug Allergy 07-23-20 23 Hallucinations [facility] (20 sources) moxifloxacin Drug Allergy 01-15-20 23 Hives [facility] (20 sources) Penicillins Drug Allergy 01-15-20 23 Rash [facility] (20 sources) traZODone Drug Allergy 01-15-20 23 [facility] (20 sources) varenicline Drug Allergy 11-29-19 14 [facility] (1 source) Meperidine Drug Allergy 11-17-19 24 other [facility] (20 sources) Ibuprofen Drug Allergy 11-25-19 24 Other (See Comments) [facility] (20 sources) Niacin And Related Propensity to adverse reactions to drug 11-25-19 24 Hives [facility] (20 sources) Meperidine Drug Allergy 11-17-19 24 [facility] (2 sources) Iron Drug Allergy 07-03-20 15 [facility] (2 sources) Meperidine Drug Allergy 06-21-20 24 [facility] (2 sources) Mirtazapine Drug Allergy 06-21-20 24 [facility] (2 sources) Penicillins Propensity to adverse reactions to drug 07-14-20 13 Rash [facility] Medications Current Medications Medication Drug Class(es) Dates Sig (Normalized) Sig (Original) Acetaminophen (1 source) Start: 11-25-2023 acetaminophen (TYLENOL) tablet 650 mg [id number] 200 actuat albuterol 0.09 mg/actuat metered dose [...] tablet (20 sources) gamma-Aminobutyric Acid-ergic Agonist Start: 12-26-2024 baclofen (Lioresal) 20 MG tablet Indications: Chronic pain syndrome Take one half tablet in the morning, One half tablet at lunch, and 2 tablets in the evening 270 tablet 1 12/26/2024 Active Start: 01-25-2024 End: 07-13-2024 baclofen (Lioresal) 20 MG ta blet Indications: Chronic pain syndrome Take one half tablet in the morning, One half tablet at lunch, and 2 tablets in the evening 270 tablet 1 07/13/2024 Active Start: 11-25-2023 take 10 mg by mouth twice daily at mealtime 10 mg, Oral, 2 TIMES DAILY WITH MEALS, First dose on Thu11/25/23 at 1700, Until Discontinued Start: 11-17-2023 take 10 mg by mouth at breakfa st Baclofen Active 10 MG PO With breakfast [...] ordered dose. take 2 tablets by mo uth at bedtime busPIRone (BUSPAR) 15 MG tablet [...] mouth 1 (one) time each day Active ZIR-HTF-Kttbxmm E (OMEGA-3 COMPLEX PO) (4 sources) take 1 capsule by mouth once daily KPO-PQX-Lfhemwz E (OMEGA-3 COMPLEX PO) Take 1 capsule by mouth daily Active take 1 capsule by mouth once nereyda ly WWP-XCU-Spnshuj E (OMEGA-3 COMPLEX PO) Take 1 capsule [...] by mouth Daily 180 capsule 1 04/14/2024 Active Start: 11-25-2023 take 1 capsule by [facility] once daily 40 mg, Oral, DAILY, First [...] mg) before bedtime. 270 capsule 1 04/14/2024 Active 1 ml HYDROmorphone hydrochloride 1 mg/ml [...] mg oral tablet (20 sources) l-Thyroxine Start: 10-04-2024 levothyroxine (Synthroid) 175 MCG tablet Indications: Postsurgical hypothyroidism (CMS/HCC) Take 1 tablet daily 90 tablet 1 10/04/2024 Active Start: 07-13-2024 levothyroxine (Synthroid) 175 MCG tablet [...] metoprolol tartrate (LOPRESSOR) tablet 12.5 mg mirtazapine 45 mg oral tablet (20 sources) Start: 12-20-2024 End: 01-19-2025 take 1 tablet by mouth at bedtime mirtazapine (Remeron) 45 MG tablet Indications: Sleep arousal disorder Take 1 tablet (45 mg) by mouth at bedtime 30 tablet 12/20/2024 01/19/2025 Active Start: 02-15-2024 End: 10-11-2024 take 1 tablet by mouth at bedtime mirtazapine (Remeron) 30 MG tablet Indications: Sleep arousal disorder Take 1 tablet (30 mg) by mouth at bedtime 90 tablet 1 04/14/2024 10/11/2024 Active naloxone 0.4 mg in 10 mL sodium chloride syringe (1 source) Start: 12-01-2023 naloxone 0.4 mg in 10 mL sodium chloride syringe [place]-3 Fatty Acids (Fish Oil) 1000 MG capsule delayed-release (20 sources) [place]-3 Fatty Ac ids (Fish Oil) 1000 MG capsule delayed-release Take by mouth Active [place]-3 Fatty Acids (FISH OIL) 1000 MG CPDR (2 sources) [place]-3 Fatty Ac ids (FISH OIL) 1000 MG [...] Proton Pump Inhibitor Start: 11-21-2023 End: 12-02-2023 pantoprazole (ProtoNix) 40 MG EC tablet Take 40 mg by mouth 11/21/2023 Active petrolatum 610 mg/ml topical cream (1 [...] 2023 12:00am take 2 tablets by mo uth once daily spironolactone (ALDACTONE) 25 MG tablet Take 2 tablets by mouth daily Active take 4 tablets by mo uth once daily spironolactone (ALDACTONE) 25 MG tablet Take 4 tablets by mouth daily Active STRONTIUM CITRATE (20 sources) take 2 tablets by mo ut once daily STRONTIUM CITRATE Take 2 tablets by mouth Daily Active take 1 tablet by mouth in [...] (100 mg) before bedtime. 240 tablet 1 11/09/2024 Active Start: 11-25-2023 take 100 mg by [...] (Normalized) Sig (Original) 20 ml albumin human, group home 250 mg/ml injection (1 source) Human Serum [...] dose on Thu11/26/23 at 0700, Until Discontinued Start: 11-25-2023 End: [...] disorder] Onset: 01-06-2023 08-13-2023 Chronic Cardiac dysrhythmias (7 sources) Paroxysmal atrial fibrillation; Translations: [Paroxysmal atrial [...] Asthenia; Translations: [Weakness] Onset: 11-17-2023 11-17-2023 Episodic Nutritional deficiencies (1 source) Deficiency of macronutrients; Translations: [Mild protein-calorie malnutrition] Onset: 12-27-2024 12-27-2024 Chronic Osteoarthritis (20 sources) Bilateral arthritis of knees; [...] aftercare (20 sources) Polypharmacy ; Translations: [Other salvage determiner (current) drug therapy] Onset: 1 01-28-2023 Episodic Other aftercare (20 sources) Taking high risk medication; Translations: [Other custodial (current) drug therapy] Onset: 1 Resolved: 4 07-31-2023 Episodic Other aftercare (20 sources) Drug therapy finding; Translations: [Other salvage determiner (current) drug therapy] Onset: 4 10-15-2023 Episodic [...] Translations: [Sick-euthyroid syndrome] Onset: 3 01-06-2023 Episodic Unclassified (1 source) Onset: 5 10-11-2024 Varicose veins of lower extremity (20 sources) Varicose vein of leg with phlebitis; Translations: [Varicose veins of right lower extremity with inflammation] Onset: 3 Resolved: 4 08-13-2023 Episodic Results Test Name Value Interpretation Reference Range Facility ALL HEMOGLOBINon 07-06-2024 Hemoglobin (Bld) [Mass/Vol] 14.5 g/dL 12.0 - 16.0 g/dL [facility] Surgical Pathology Reporton 01-29-2024 Surgical Pathology Report (NOTE) Path Number: [id number] -- Diagnosis -- STOMACH, BIOPSY: -MINIMAL TO MILD CHRONIC INACTIVE GASTRITIS -NO MORPHOLOGIC EVIDENCE OF HELICOBACTER PYLORI [employer]GANISMS Alvarez Su D.O. Electronically Signed Out [facility]02/01/2024 Clinical Information Pre-Op Diagnosis: DUODENAL ULCER Operative Findings: STOMACH BIOPSY Operation Performed: ESOPHAGOGASTRODUODENOSCOPY BIOPSY kb Source of Specimen A: STOMACH BIOPSY Gross Description JENNY EWING STOMACH BIOPSY Received in formalin are three soft castelan tissue fragments ranging from 0.3 to 0.5 cm in length with a loose aggregate of 1.2 x 0.2 x 0.1 cm. Entirely 1cs. ds kb Octavio Paulson M.D./kb2:02/01/2024 Microscopic Description Microscopic examination performed. Processing Lab: [address] [id number] Interpretation Performed at [address] [id number] SURGICAL PATHOLOGY CONSULTATION Patient Name: JENNY EWING [facility] Rec: [id number] [facility] [employer] [facility] ANATOMIC PATHOLOGY [address] [place] [address]. [place], [place] [address] Normal [facility] Basic Metab w/rfx MGon 12-02 Anion gap [Moles/Vol] 7 mmol/L Low 9-16 [facility] Comment on above: Performed By: #### B MPX, MG, CDP #### [facility] [address] [place] [phone] Collection Card Clerk: Dwain Aldana MD Calcium [Mass/Vol] 7.6 mg/dL Low 8.6-10.4 [facility] Comment on above: Performed By: #### B MPX, MG, CDP #### [facility] [address] [place] [phone] Collection Card Clerk: Dwain Aldana MD Chloride [Moles/Vol] 101 mmol/L Normal 98-107 [facility] Comment on above: Performed By: #### B MPX, MG, CDP #### [facility] [address] [place] [phone] Collection Card Clerk: Dwain Aldana MD CO2 [Moles/Vol] 31 mmol/L Normal 20-31 [facility] Comment on above: Performed By: #### B MPX, MG, CDP #### [facility] [address] [place] [phone] Collection Card Clerk: Dwain Aldana MD Creatinine [Mass/Vol] 0.4 mg/dL Low 0.50-0.90 [facility] Comment on above: Performed By: #### B MPX, MG, CDP #### [facility] [address] [place] [phone] Collection Card Clerk: Dwain Aldnaa MD GFR/1.73 sq M.predicted among non-blacks MDRD (S/P/Bld) [Vol rate/Area] mL/min/{1.73_m2} Normal >60 [facility] Comment on above: Result Comment: These [...] By: #### B MPX MG, CDP #### [facility] [address] [place] [phone] Collection Card Clerk: Dwain Aldana MD Glucose [Mass/Vol] 83 mg/dL Normal 74-99 [facility] Comment on above: Performed By: #### B MPX, MG, CDP #### [facility] [address] [place] [phone] Collection Card Clerk: Dwain Aldana MD Potassium [Moles/Vol] 3.2 mmol/L Low 3.7-5.3 [facility] Comment on above: Performed By: #### B MPX, MG, CDP #### [facility] [address] [place] [phone] Collection Card Clerk: Dwain Aldana MD Sodium [Moles/Vol] 139 mmol/L Normal 136-145 [facility] Comment on above: Performed By: #### B MPX, MG, CDP #### [facility] [address] [place] [phone] Collection Card Clerk: Dwain Aldana MD Urea nitrogen [Mass/Vol] 2 mg/dL Low 8-23 [facility] Comment on above: Performed By: #### B MPX, MG, CDP #### [facility] [address] [place] [phone] Collection Card Clerk: Dwain Aldana MD Basic Metabolic Panel w/ Ref merlene to [facility] 12-03-2023 Anion gap [Moles/Vol] 7 mmol/L Low 9 - 16 mmol/L [facility] Calcium [Mass/Vol] 7.6 mg/dL Low 8.6 - 10. 4 mg/dL [facility] Chloride [Moles/Vol] 101 mmol/L 98 - 10 7 mmol/L [facility] CO2 [Moles/Vol] 31 mmol/L 20 - 31 mmol/L [facility] Creatinine [Mass/Vol] 0.4 mg/dL Low 0.50 - 0.90 mg/dL [facility] Comment on above: These results [...] [Mass/Vol] 83 mg/dL 74 - 99 mg/dL [facility] Interpretation and review of laboratory results Abnormal [facility] Potassium [Moles/Vol] 3.2 mmol/L Low 3.7 - 5.3 mmol/L [facility] Sodium [Moles/Vol] 139 mmol/L 136 - 145 mmol/L [facility] Urea nitrogen [Mass/Vol] 2 mg/dL Low 8 - 23 mg/dL [facility] CBC with Auto Differentialon 12-03-2023 Basophils (Bld) [#/Vol] 0.08 10*3/uL [facility] Basophils/100 WBC (Bld) 1 % 0 - 2 % [facility] Eosinophils (Bld) [#/Vol] 0.23 10*3/uL [facility] Eosinophils/100 WBC (Bld) 3 % 1 - 4 % [facility] Erythrocyte distribution width (RBC) [Ratio] 17.7 % High 11.8 - 14.4 % [facility] Hematocrit (Bld) [Volume fraction] 29.4 % Low 36.3 - 47.1 % [facility] Hemoglobin (Bld) [Mass/Vol] 9.6 g/dL Low 11.9 - 15.1 g/dL [facility] Immature granulocytes (Bld) [#/Vol] 0.08 10*3/uL [facility] Immature granulocytes/100 WBC (Bld) 1 % High 0 [facility] Interpretation and review of laboratory results Abnormal [facility] Lymphocytes/100 WBC (Bld) 18 % Low 24 - 43 % [facility] Lymphocytes/100 WBC (Bld) 1.37 % [facility] MCH (RBC) [Entitic mass] 30.4 pg 25.2 - 33.5 pg [facility] MCHC (RBC) [Mass/Vol] 32.7 g/dL 28.4 - 34.8 g/dL [facility] MCV (RBC) [Entitic vol] 93.0 fL 82.6 - 102.9 fL [facility] Monocytes/100 WBC (Bld) 9 % 3 - 12 % [facility] Monocytes/100 WBC (Bld) 0.68 % [facility] Morphology Jesus (Bld) [Interp] Normal [facility] Neutrophils/100 WBC (Bld) 68 % High 36 - 65 % [facility] Nucleated RBC/100 WBC (Bld) [Ratio] 0.0 % 0.0 per 100 WBC [facility] Platelet, Fluorescence 347 [facility] Platelets (Bld) [#/Vol] See Reflexed IPF Result [facility] Platelets reticulated/100 platelets Auto (Bld) 4.0 % 1.1 - 10.3 % [facility] RBC (Bld) [#/Vol] 3.16 10*6/uL Low 3.95 - 5.11 m/uL [facility] RBC (Bld) [#/Vol] ANISOCYTOSIS PRESENT [facility] Segmented neutrophils/100 WBC (Bld) 5.16 % [facility] WBC other (Bld) [#/Vol] 7.6 [facility] CBC with Diffon 12-03-2023 Abs. Basophil 0.08 k/uL Normal 0.00-0.20 [facility] Comment on above: Performed By: #### B MPX, MG, CDP #### [facility] [address] [place] [address] Collection Card Clerk: Dwain Aldana MD Abs.Imm.Granulocyte 0.08 k/uL Normal 0.00-0.30 [facility] Comment on above: Performed By: #### B MPX, MG, CDP #### [facility] [address] [place] [phone] Collection Card Clerk: Dwain Aldana MD Abs.Neutrophil (Seg) 5.16 k/uL Normal 1.50-8.10 [facility] Comment on above: Performed By: #### B MPX, MG, CDP #### [facility] [address] [place] [phone] Collection Card Clerk: Dwain Aldana MD Basophils/100 WBC (Bld) 1 % Normal 0-2 [facility] Comment on above: Performed By: #### B MPX, MG, CDP #### [facility] [address] [place] [phone] Collection Card Clerk: Dwain Aldana MD Eosinophils (Bld) [#/Vol] 0.23 10*3/uL Normal 0.00-0.44 [facility] Comment on above: Performed By: #### B MPX, MG, CDP #### [facility] [address] [place] [phone] Collection Card Clerk: Dwain Aldana MD Eosinophils/100 WBC (Bld) 3 % Normal 1-4 [facility] Comment on above: Performed By: #### B MPX, MG, CDP #### [facility] [address] [place] [phone] Collection Card Clerk: Dwain Aldana MD Immature granulocytes/100 WBC (Bld) 1 % High 0 [facility] Comment on above: Performed By: #### B MPX, MG, CDP #### [facility] [address] [place] [phone] Collection Card Clerk: Dwain Aldana MD Lymphocytes (Bld) [#/Vol] 1.37 10*3/uL Normal 1.10-3.70 [facility] Comment on above: Performed By: #### B MPX, MG, CDP #### [address] [address] Collection Card Clerk: Dwain Aldana MD Lymphocytes/100 WBC (Bld) 18 % Low 24-43 [facility] Comment on above: Performed By: #### B MPX, MG, CDP #### [facility] [address] [place] [phone] Collection Card Clerk: Dwain Aldana MD Monocytes (Bld) [#/Vol] 0.68 10*3/uL Normal 0.10-1.20 [facility] Comment on above: Performed By: #### B MPX, MG, CDP #### [address] [address] Collection Card Clerk: Dwain Aldana MD Monocytes/100 WBC (Bld) 9 % Normal 3-12 [facility] Comment on above: Performed By: #### B MPX, MG, CDP #### [address] [address] Collection Card Clerk: Dwain Aldana MD Morphology Jesus (Bld) [Interp] Normal Normal [facility] Comment on above: Performed By: #### B MPX, MG, CDP #### [facility] [address] [place] [phone] Collection Card Clerk: Dwain Aldana MD Neutrophil (Seg) 68 % High 36-65 [facility] Comment on above: Performed By: #### B MPX, MG, CDP #### [facility] [address] [place] [phone] Collection Card Clerk: Dwain Aldana MD Platelet, Fluoresc. 347 k/uL Normal 138-453 [facility] Comment on above: Performed By: #### B MPX, MG, CDP #### [facility] [address] [place] [phone] Collection Card Clerk: Dwain Aldana MD PLT, Immature Fract. 4.0 % Normal 1.1-10.3 [facility] Comment on above: Performed By: #### B MPX, MG, CDP #### [facility] [address] [place] [phone] Collection Card Clerk: Dwain Aldana MD Erythrocyte distribution width (RBC) [Ratio] 17.7 % High 11.8-14.4 [facility] Comment on above: Performed By: #### B MPX, MG, CDP #### [facility] [address] [place] [phone] Collection Card Clerk: Dwain Aldana MD Hematocrit (Bld) [Volume fraction] 29.4 % Low 36.3-47.1 [facility] Comment on above: Performed By: #### B MPX, MG, CDP #### [facility] [address] [place] [phone] Collection Card Clerk: Dwain Aldana MD Hemoglobin (Bld) [Mass/Vol] 9.6 g/dL Low 11.9-15.1 [facility] Comment on above: Performed By: #### B MPX, MG, CDP #### [facility] [address] [place] [phone] Collection Card Clerk: Dwain Aldana MD MCH (RBC) [Entitic mass] 30.4 pg Normal 25.2-33.5 [facility] Comment on above: Performed By: #### B MPX, MG, CDP #### [facility] [address] [place] [phone] Collection Card Clerk: Dwain Aldana MD MCHC (RBC) [Mass/Vol] 32.7 g/dL Normal 28.4-34.8 [facility] Comment on above: Performed By: #### B MPX, MG, CDP #### [facility] [address] [place] [phone] Collection Card Clerk: Dwain Aldana MD MCV (RBC) [Entitic vol] 93.0 fL Normal 82.6-102.9 [facility] Comment on above: Performed By: #### B MPX, MG, CDP #### [facility] [address] [place] [address] Collection Card Clerk: Dwain Aldana MD NRBC Automated 0.0 per 100 WBC Normal 0.0 [facility] Comment on above: Performed By: #### B MPX, MG, CDP #### [facility] [address] [place] [address] Collection Card Clerk: Dwain Aldana MD Platelet Count See Reflexed IPF Result Normal 138-453 [facility] Comment on above: Performed By: #### B MPX, MG, CDP #### [facility] [address] [place] [phone] Collection Card Clerk: Dwain Aldana MD RBC (Bld) [#/Vol] 3.16 10*6/uL Low 3.95-5.11 [facility] Comment on above: Performed By: #### B MPX, MG, CDP #### [facility] [address] [place] [phone] Collection Card Clerk: Dwain Aldana MD RBC morphology finding Nom (Bld) ANISOCYTOSIS PRESENT Normal [facility] Comment on above: Performed By: #### B MPX, MG, CDP #### [facility] [address] [place] [phone] Collection Card Clerk: Dwain Aldana MD WBC (Bld) [#/Vol] 7.6 10*3/uL Normal 3.5-11.3 [facility] Comment on above: Performed By: #### B MPX, MG, CDP #### [facility] [address] [place] [address] Collection Card Clerk: Dwain Aldana MD Magnesiumon 12-03-2023 Magnesium [Mass/Vol] 1.7 mg/dL Normal 1.6-2.4 [facility] Comment on above: Performed By: #### B MPX, MG, CDP #### [facility] [address] [place] [phone] Collection Card Clerk: Dwain Aldana MD Magnesium [Mass/Vol] 1.7 mg/dL 1.6 - 2 .4 mg/dL [facility] Basic Metab w/rfx MGon 12-01 Anion gap [Moles/Vol] 8 mmol/L Low 9-16 [facility] Comment on above: Performed By: #### B MPX, MG, CDP #### [facility] [address] [place] [phone] Collection Card Clerk: Dwain Aldana MD Calcium [Mass/Vol] 7.0 mg/dL Low 8.6-10.4 [facility] Comment on above: Performed By: #### B MPX, MG, CDP #### [facility] [address] [place] [phone] Collection Card Clerk: Dwain Aldana MD Chloride [Moles/Vol] 101 mmol/L Normal 98-107 [facility] Comment on above: Performed By: #### B MPX, MG, CDP #### [facility] [address] [place] [phone] Collection Card Clerk: Dwain Aldana MD CO2 [Moles/Vol] 28 mmol/L Normal 20-31 [facility] Comment on above: Performed By: #### B MPX, MG, CDP #### [facility] [address] [place] [phone] Collection Card Clerk: Dwain Aldana MD Creatinine [Mass/Vol] 0.4 mg/dL Low 0.50-0.90 [facility] Comment on above: Performed By: #### B MPX, MG, CDP #### [facility] [address] [place] [phone] Collection Card Clerk: Dwain Aldana MD GFR/1.73 sq M.predicted among non-blacks MDRD (S/P/Bld) [Vol rate/Area] mL/min/{1.73_m2} Normal >60 [facility] Comment on above: Result Comment: These [...] By: #### B MPX, MG, CDP #### [facility] [address] [place] [address] Collection Card Clerk: Dwain Aldana MD Glucose [Mass/Vol] 85 mg/dL Normal 74-99 [facility] Comment on above: Performed By: #### B MPX, MG, CDP #### [facility] [address] [place] [phone] Collection Card Clerk: Dwain Aldana MD Potassium [Moles/Vol] 3.4 mmol/L Low 3.7-5.3 [facility] Comment on above: Performed By: #### B MPX, MG, CDP #### [employer] [address] [place] [phone] Collection Card Clerk: Dwain Aldana MD Sodium [Moles/Vol] 137 mmol/L Normal 136-145 [facility] Comment on above: Performed By: #### B MPX, MG, CDP #### [facility] [address] [place] [address] Collection Card Clerk: Dwain Aldana MD Urea nitrogen [Mass/Vol] 4 mg/dL Low 8-23 [facility] Comment on above: Performed By: #### B MPX, MG, CDP #### [facility] [address] [id number] Collection Card Clerk: Dwain Aldana MD Basic Metabolic Panel w/ Ref merlene to MGon 12-02-2023 Anion gap [Moles/Vol] 8 mmol/L Low 9 - 16 mmol/L [facility] Calcium [Mass/Vol] 7.0 mg/dL Low 8.6 - 10. 4 mg/dL [facility] Chloride [Moles/Vol] 101 mmol/L 98 - 10 7 mmol/L [facility] CO2 [Moles/Vol] 28 mmol/L 20 - 31 mmol/L [facility] Creatinine [Mass/Vol] 0.4 mg/dL Low 0.50 - 0.90 mg/dL [facility] [employer] Est, Glom Filt Rate - [facility] Comment on above: These results [...] [Mass/Vol] 85 mg/dL 74 - 99 mg/dL [facility] Interpretation and review of laboratory results Abnormal [facility] Potassium [Moles/Vol] 3.4 mmol/L Low 3.7 - 5.3 mmol/L [facility] Sodium [Moles/Vol] 137 mmol/L 136 - 145 mmol/L [facility] Urea nitrogen [Mass/Vol] 4 mg/dL Low 8 - 23 mg/dL [facility] CBC with Auto Differentialon 12-02-2023 Basophils (Bld) [#/Vol] 0.05 10*3/uL [facility] Basophils/100 WBC (Bld) 1 % 0 - 2 % [facility] Eosinophils (Bld) [#/Vol] 0.18 10*3/uL [facility] Eosinophils/100 WBC (Bld) 3 % 1 - 4 % [facility] Erythrocyte distribution width (RBC) [Ratio] 17.9 % High 11.8 - 14.4 % [facility] Hematocrit (Bld) [Volume fraction] 27.5 % Low 36.3 - 47.1 % [facility] Hemoglobin (Bld) [Mass/Vol] 8.2 g/dL Low 11.9 - 15.1 g/dL [facility] Immature granulocytes (Bld) [#/Vol] 0.04 10*3/uL [facility] Immature granulocytes/100 WBC (Bld) 1 % High 0 [facility] Interpretation and review of laboratory results Abnormal [facility] Lymphocytes/100 WBC (Bld) 13 % Low 24 - 43 % [facility] Lymphocytes/100 WBC (Bld) 0.92 % Low [facility] MCH (RBC) [Entitic mass] 30.0 pg 25.2 - 33.5 pg [facility] MCHC (RBC) [Mass/Vol] 29.8 g/dL 28.4 - 34.8 g/dL [facility] MCV (RBC) [Entitic vol] 100.7 fL 82.6 - 102.9 fL [facility] Monocytes/100 WBC (Bld) 7 % 3 - 12 % [facility] Monocytes/100 WBC (Bld) 0.47 % [facility] Neutrophils/100 WBC (Bld) 77 % High 36 - 65 % [facility] Nucleated RBC/100 WBC (Bld) [Ratio] 0.0 % 0.0 per 100 WBC [facility] Platelet, Fluorescence 319 [facility] Platelets (Bld) [#/Vol] See Reflexed IPF Result [facility] Platelets reticulated/100 platelets Auto (Bld) 3.7 % 1.1 - 10.3 % [facility] RBC (Bld) [#/Vol] 2.73 10*6/uL Low 3.95 - 5.11 m/uL [facility] RBC (Bld) [#/Vol] ANISOCYTOSIS PRESENT [facility] Segmented neutrophils/100 WBC (Bld) 5.49 % [facility] WBC other (Bld) [#/Vol] 7.2 [facility] CBC with Diffon 12-02-2023 Platelet, Fluoresc. 319 k/uL Normal 138-453 [facility] Comment on above: Performed By: #### B MPX, MG, CDP #### [facility] [address] [place] [address] Collection Card Clerk: Dwain Aldana MD PLT, Immature Fract. 3.7 % Normal 1.1-10.3 [facility] Comment on above: Performed By: #### B MPX, MG, CDP #### [facility] [address] [place] [address] Collection Card Clerk: Dwain Aldana MD Abs. Basophil 0.05 k/uL Normal 0.00-0.20 [facility] Comment on above: Performed By: #### B MPX, MG, CDP #### [facility] [address] [place] [phone] Collection Card Clerk: Dwain Aldana MD Abs.Imm.Granulocyte 0.04 k/uL Normal 0.00-0.30 [facility] Comment on above: Performed By: #### B MPX, MG, CDP #### [facility] [address] [place] [address] Collection Card Clerk: Dwain Aldana MD Abs.Neutrophil (Seg) 5.49 k/uL Normal 1.50-8.10 [facility] Comment on above: Performed By: #### B MPX, MG, CDP #### [facility] [address] [place] [phone] Collection Card Clerk: Dwain Aldana MD Basophils/100 WBC (Bld) 1 % Normal 0-2 [facility] Comment on above: Performed By: #### B MPX, MG, CDP #### [facility] [address] [place] [address] Collection Card Clerk: Dwain Aldana MD Eosinophils (Bld) [#/Vol] 0.18 10*3/uL Normal 0.00-0.44 [facility] Comment on above: Performed By: #### B MPX, MG, CDP #### [facility] [address] [place] [address] Collection Card Clerk: Dwain Aldana MD Eosinophils/100 WBC (Bld) 3 % Normal 1-4 [facility] Comment on above: Performed By: #### B MPX, MG, CDP #### [facility] [address] [place] [address] Collection Card Clerk: Dwain Aldana MD Erythrocyte distribution width (RBC) [Ratio] 17.9 % High 11.8-14.4 [facility] Comment on above: Performed By: #### B MPX, MG, CDP #### [facility] [address] [place] [phone] Collection Card Clerk: Dwain Aldana MD Hematocrit (Bld) [Volume fraction] 27.5 % Low 36.3-47.1 [facility] Comment on above: Performed By: #### B MPX, MG, CDP #### [facility] [address] [place] [address] Collection Card Clerk: Dwain Aldana MD Hemoglobin (Bld) [Mass/Vol] 8.2 g/dL Low 11.9-15.1 [facility] Comment on above: Performed By: #### B MPX, MG, CDP #### [facility] [address] [place] [address] Collection Card Clerk: Dwani Aldana MD Immature granulocytes/100 WBC (Bld) 1 % High 0 [facility] Comment on above: Performed By: #### B MPX, MG, CDP #### [address] [address] Collection Card Clerk: Dwain Aldana MD Lymphocytes (Bld) [#/Vol] 0.92 10*3/uL Low 1.10-3.70 [facility] Comment on above: Performed By: #### B MPX, MG, CDP #### [address] [address] Collection Card Clerk: Dwain Aldana MD Lymphocytes/100 WBC (Bld) 13 % Low 24-43 [facility] Comment on above: Performed By: #### B MPX, MG, CDP #### [address] [address] Collection Card Clerk: Dwain Aldana MD MCH (RBC) [Entitic mass] 30.0 pg Normal 25.2-33.5 [facility] Comment on above: Performed By: #### B MPX, MG, CDP #### [address] [address] Collection Card Clerk: Dwain Aldana MD MCHC (RBC) [Mass/Vol] 29.8 g/dL Normal 28.4-34.8 [facility] Comment on above: Performed By: #### B MPX, MG, CDP #### [address] [address] Collection Card Clerk: Dwain Aldana MD MCV (RBC) [Entitic vol] 100.7 fL Normal 82.6-102.9 [facility] Comment on above: Performed By: #### B MPX, MG, CDP #### [address] [address] Collection Card Clerk: Dwain Aldana MD Monocytes (Bld) [#/Vol] 0.47 10*3/uL Normal 0.10-1.20 [facility] Comment on above: Performed By: #### B MPX, MG, CDP #### [address] [place] [address] Collection Card Clerk: Dwain Aldana MD Monocytes/100 WBC (Bld) 7 % Normal 3-12 [facility] Comment on above: Performed By: #### B MPX, MG, CDP #### [facility] [address] [place] [address] Collection Card Clerk: Dwain Aldana MD Neutrophil (Seg) 77 % High 36-65 [facility] Comment on above: Performed By: #### B MPX, MG, CDP #### [facility] [address] [place] [address] Collection Card Clerk: Dwain Aldana MD NRBC Automated 0.0 per 100 WBC Normal 0.0 [facility] Comment on above: Performed By: #### B MPX, MG, CDP #### [facility] [address] [place] [address] Collection Card Clerk: Dwain Aldana MD Platelet Count See Reflexed IPF Result Normal 138-453 [facility] Comment on above: Performed By: #### B MPX, MG, CDP #### [facility] [address] [place] [address] Collection Card Clerk: Dwain Aldana MD RBC (Bld) [#/Vol] 2.73 10*6/uL Low 3.95-5.11 [facility] Comment on above: Performed By: #### B MPX, MG, CDP #### [facility] [address] [place] [address] Collection Card Clerk: Dwain Aldana MD RBC morphology finding Nom (Bld) ANISOCYTOSIS PRESENT Normal [facility] Comment on above: Performed By: #### B MPX, MG, CDP #### [facility] [address] [place] [address] Collection Card Clerk: Dwain Aldana MD WBC (Bld) [#/Vol] 7.2 10*3/uL Normal 3.5-11.3 [facility] Comment on above: Performed By: #### B MPX, MG, CDP #### [facility] [address] [place] [address] Collection Card Clerk: Dwain Aldana MD Magnesiumon 12-02-2023 Magnesium [Mass/Vol] 1.7 mg/dL Normal 1.6-2.4 [facility] Comment on above: Performed By: #### B MPX, MG, CDP #### [facility] [address] [place] [address] Collection Card Clerk: Dwain Aldana MD Magnesium [Mass/Vol] 1.7 mg/dL 1.6 - 2 .4 mg/dL [facility] Basic Metab w/rfx MGon 11-30 Anion gap [Moles/Vol] 7 mmol/L Low 9-16 [facility] Comment on above: Performed By: #### H H #### [address] [address] Collection Card Clerk: Dwain Aldana MD Calcium [Mass/Vol] 6.8 mg/dL Low 8.6-10.4 [facility] Comment on above: Performed By: #### H H #### [facility] [address] [place] [address] Collection Card Clerk: Dwain Aldana MD Chloride [Moles/Vol] 107 mmol/L Normal 98-107 [facility] Comment on above: Performed By: #### H H #### [facility] [address] [place] [address] Collection Card Clerk: Dwain Aldana MD CO2 [Moles/Vol] 23 mmol/L Normal 20-31 [facility] Comment on above: Performed By: #### H H #### [facility] [address] [place] [address] Collection Card Clerk: Dwain Aldana MD Creatinine [Mass/Vol] 0.3 mg/dL Low 0.50-0.90 [facility] Comment on above: Performed By: #### H H #### [address] [address] Collection Card Clerk: Dwain Aldana MD GFR/1.73 sq M.predicted among non-blacks MDRD (S/P/Bld) [Vol rate/Area] mL/min/{1.73_m2} Normal >60 [facility] Comment on above: Result Comment: These [...] secretion. Performed By: #### H H #### [address] [address] Collection Card Clerk: Dwain Aldana MD Glucose [Mass/Vol] 79 mg/dL Normal 74-99 [facility] Comment on above: Performed By: #### H H #### [address] [address] Collection Card Clerk: Dwain Aldana MD Potassium [Moles/Vol] 3.8 mmol/L Normal 3.7-5.3 [facility] Comment on above: Performed By: #### H H #### [facility] [address] [place] [address] Collection Card Clerk: Dwain Aldana MD Sodium [Moles/Vol] 137 mmol/L Normal 136-145 [facility] Comment on above: Performed By: #### H H #### [address] [address] Collection Card Clerk: Dwain Aldana MD Urea nitrogen [Mass/Vol] 8 mg/dL Normal 8-23 [facility] Comment on above: Performed By: #### H H #### [facility] [address] [place] [address] Collection Card Clerk: Dwain Aldana MD Basic Metabolic Panel w/ Ref merlene to MGon 12-01-2023 Anion gap [Moles/Vol] 7 mmol/L Low 9 - 16 mmol/L [facility] Calcium [Mass/Vol] 6.8 mg/dL Low 8.6 - 10. 4 mg/dL [facility] Chloride [Moles/Vol] 107 mmol/L 98 - 10 7 mmol/L [facility] CO2 [Moles/Vol] 23 mmol/L 20 - 31 mmol/L [facility] Creatinine [Mass/Vol] 0.3 mg/dL Low 0.50 - 0.90 mg/dL [facility] Est, Glom Filt Rate - [facility] Comment on above: These results [...] [Mass/Vol] 79 mg/dL 74 - 99 mg/dL [facility] Interpretation and review of laboratory results Abnormal [facility] Potassium [Moles/Vol] 3.8 mmol/L 3.7 - 5.3 mmol/L [facility] Sodium [Moles/Vol] 137 mmol/L 136 - 145 mmol/L [facility] Urea nitrogen [Mass/Vol] 8 mg/dL 8 - 23 mg/dL [facility] CBC with Auto Differentialon 12-01-2023 Basophils (Bld) [#/Vol] 0.04 10*3/uL [facility] Basophils/100 WBC (Bld) 1 % 0 - 2 % [facility] Eosinophils (Bld) [#/Vol] 0.15 10*3/uL [facility] Eosinophils/100 WBC (Bld) 2 % 1 - 4 % [facility] Erythrocyte distribution width (RBC) [Ratio] 18.8 % High 11.8 - 14.4 % [facility] Hematocrit (Bld) [Volume fraction] 22.9 % Low 36.3 - 47.1 % [facility] Hemoglobin (Bld) [Mass/Vol] 7.1 g/dL Low 11.9 - 15.1 g/dL [facility] Immature granulocytes (Bld) [#/Vol] 0.04 10*3/uL [facility] Immature granulocytes/100 WBC (Bld) 1 % High 0 [facility] Interpretation and review of laboratory results Abnormal [facility] Lymphocytes/100 WBC (Bld) 17 % Low 24 - 43 % [facility] Lymphocytes/100 WBC (Bld) 1.27 % [facility] MCH (RBC) [Entitic mass] 30.1 pg 25.2 - 33.5 pg [facility] MCHC (RBC) [Mass/Vol] 31.0 g/dL 28.4 - 34.8 g/dL [facility] MCV (RBC) [Entitic vol] 97.0 fL 82.6 - 102.9 fL [facility] Monocytes/100 WBC (Bld) 8 % 3 - 12 % [facility] Monocytes/100 WBC (Bld) 0.61 % [facility] Neutrophils/100 WBC (Bld) 72 % High 36 - 65 % [facility] Nucleated RBC/100 WBC (Bld) [Ratio] 0.0 % 0.0 per 100 WBC [facility] Platelet mean volume (Bld) [Entitic vol] 10.2 fL 8.1 - 13.5 fL [facility] Platelets (Bld) [#/Vol] 201 10*3/uL [facility] RBC (Bld) [#/Vol] 2.36 10*6/uL Low 3.95 - 5.11 m/uL [facility] RBC (Bld) [#/Vol] ANISOCYTOSIS PRESENT [facility] Segmented neutrophils/100 WBC (Bld) 5.55 % [facility] WBC other (Bld) [#/Vol] 7.7 [facility] CBC with Diffon 12-01-2023 Abs. Basophil 0.04 k/uL Normal 0.00-0.20 [facility] Comment on above: Performed By: #### H H #### [address] [address] Collection Card Clerk: Dwain Aldana MD Abs.Imm.Granulocyte 0.04 k/uL Normal 0.00-0.30 [facility] Comment on above: Performed By: #### H H #### [address] [address] Collection Card Clerk: Dwain Aldana MD Abs.Neutrophil (Seg) 5.55 k/uL Normal 1.50-8.10 [facility] Comment on above: Performed By: #### H H #### [address] [address] Collection Card Clerk: Dwain Aldana MD Basophils/100 WBC (Bld) 1 % Normal 0-2 [facility] Comment on above: Performed By: #### H H #### [address] [address] Collection Card Clerk: Dwain Aldana MD Eosinophils (Bld) [#/Vol] 0.15 10*3/uL Normal 0.00-0.44 [facility] Comment on above: Performed By: #### H H #### [address] [address] Collection Card Clerk: Dwain Aldana MD Eosinophils/100 WBC (Bld) 2 % Normal 1-4 [facility] Comment on above: Performed By: #### H H #### [address] [address] Collection Card Clerk: Dwain Aldana MD Erythrocyte distribution width (RBC) [Ratio] 18.8 % High 11.8-14.4 [facility] Comment on above: Performed By: #### H H #### [address] [address] Collection Card Clerk: Dwain Aldana MD Hematocrit (Bld) [Volume fraction] 22.9 % Low 36.3-47.1 [facility] Comment on above: Performed By: #### H H #### [place] [address] Collection Card Clerk: Dwain Aldana MD Hemoglobin (Bld) [Mass/Vol] 7.1 g/dL Low 11.9-15.1 [facility] Comment on above: Performed By: #### H H #### [place] [address] Collection Card Clerk: Dwain Aldana MD Immature granulocytes/100 WBC (Bld) 1 % High 0 [facility] Comment on above: Performed By: #### H H #### [place] [address] Collection Card Clerk: Dwain Aldana MD Lymphocytes (Bld) [#/Vol] 1.27 10*3/uL Normal 1.10-3.70 [facility] Comment on above: Performed By: #### H H #### [place] [address] Collection Card Clerk: Dwain Aldana MD Lymphocytes/100 WBC (Bld) 17 % Low 24-43 [facility] Comment on above: Performed By: #### H H #### [place] [address] Collection Card Clerk: Dwain Aldana MD MCH (RBC) [Entitic mass] 30.1 pg Normal 25.2-33.5 [facility] Comment on above: Performed By: #### H H #### [address] [address] Collection Card Clerk: Dwain Aldana MD MCHC (RBC) [Mass/Vol] 31.0 g/dL Normal 28.4-34.8 [facility] Comment on above: Performed By: #### H H #### [address] [address] Collection Card Clerk: Dwain Aldana MD MCV (RBC) [Entitic vol] 97.0 fL Normal 82.6-102.9 [facility] Comment on above: Performed By: #### H H #### [address] [address] Collection Card Clerk: Dwain Aldana MD Monocytes (Bld) [#/Vol] 0.61 10*3/uL Normal 0.10-1.20 [facility] Comment on above: Performed By: #### H H #### [address] [address] Collection Card Clerk: Dwain Aldana MD Monocytes/100 WBC (Bld) 8 % Normal 3-12 [facility] Comment on above: Performed By: #### H H #### [address] [address] Collection Card Clerk: Dwain Aldana MD Neutrophil (Seg) 72 % High 36-65 [facility] Comment on above: Performed By: #### H H #### [address] [address] Collection Card Clerk: Dwain Aldana MD NRBC Automated 0.0 per 100 WBC Normal 0.0 [facility] Comment on above: Performed By: #### H H #### [address] [address] Collection Card Clerk: Dwain Aldana MD Platelet mean volume (Bld) [Entitic vol] 10.2 fL Normal 8.1-13.5 [facility] Comment on above: Performed By: #### H H #### [address] [place] [address] Collection Card Clerk: Dwain Aldana MD Platelets (Bld) [#/Vol] 201 10*3/uL Normal 138-453 [facility] Comment on above: Performed By: #### H H #### [address] [address] Collection Card Clerk: Dwain Aldana MD RBC (Bld) [#/Vol] 2.36 10*6/uL Low 3.95-5.11 [facility] Comment on above: Performed By: #### H H #### [address] [address] Collection Card Clerk: Dwain Aldana MD RBC morphology finding Nom (Bld) ANISOCYTOSIS PRESENT Normal [facility] Comment on above: Performed By: #### H H #### [address] [address] Collection Card Clerk: Dwain Aldana MD WBC (Bld) [#/Vol] 7.7 10*3/uL Normal 3.5-11.3 [facility] Comment on above: Performed By: #### H H #### [address] [address] Collection Card Clerk: Dwain Aldana MD Hemoglobin and Hematocriton 12-01-2023 Hematocrit (Bld) [Volume fraction] 27.1 % Low 36.3 - 47.1 % [facility] [employer] Hemoglobin (Bld) [Mass/Vol] 8.9 g/dL Low 11.9 - 15.1 g/dL [facility] [employer] Interpretation and review of laboratory results Abnormal [facility] Hematocrit (Bld) [Volume fraction] 28.7 % Low 36.3 - 47.1 % [facility] Hemoglobin (Bld) [Mass/Vol] 8.8 g/dL Low 11.9 - 15.1 g/dL [facility] Interpretation and review of laboratory results Abnormal [facility] Hgb/Hcton 12-01-2023 Hematocrit (Bld) [Volume fraction] 27.1 % Low 36.3-47.1 [facility] Comment on above: Performed By: #### T LISAX, PRCAL #### [facility] [address] [place] [address] Collection Card Clerk: Dwain Aldana MD Hemoglobin (Bld) [Mass/Vol] 8.9 g/dL Low 11.9-15.1 [facility] Comment on above: Performed By: #### T JEAN PRCAL #### [facility] [address] [place] [phone] Collection Card Clerk: Dwain Aldana MD Hematocrit (Bld) [Volume fraction] 28.7 % Low 36.3-47.1 [facility] Comment on above: Performed By: #### H H #### [facility] [address] [place] [address] [phone] Collection Card Clerk: Dwain Aldana MD Hemoglobin (Bld) [Mass/Vol] 8.8 g/dL Low 11.9-15.1 [facility] Comment on above: Performed By: #### H H #### [facility] [address] [place] [address] [phone] Collection Card Clerk: Dwain Aldana MD No Panel Informationon 11-30 Blood Bank Blood Product Expiration Date [id number] [facility] Blood Bank ISBT Product Blood Type 6200 [facility] Blood Bank Unit Type and Rh Positive [facility] Component Leukocyte Reduced Red Cell [facility] Crossmatch Result COMPATIBLE [facility] Dispense Status Blood Bank TRANSFUSED [facility] Product Code Blood Bank [id number] [facility] Transfusion Status OK TO TRANSFUSE B ON [facility] Unit Divison 0 [facility] TYPE AND SCREENon 12-01-2023 ABO/Rh Positive [facility] Arm Band Number [id number] [facility] Blood Bank Blood Product Expiration Date [facility] Blood Bank Sample Expiration 12/02/2023,2359 [facility] Blood product unit ID (Dose) [#] [id number] [facility] Blood product unit ID (Dose) [#] [id number] [facility] Blood product unit ID (Dose) [#] [id number] [facility] Unit Issue Date/Time [id number] [facility] Unit Issue Date/Time [facility] Unit Issue Date/Time [id number] [facility] Basic Metab w/rfx MGon 11-29 Anion gap [Moles/Vol] 4 mmol/L Low 9-16 [facility] Comment on above: Performed By: #### B LENNY FINK, CDP #### [facility] [address] [place] [address] Collection Card Clerk: Dwain Aldana MD Calcium [Mass/Vol] 6.6 mg/dL Low 8.6-10.4 [facility] Comment on above: Performed By: #### B LENNY FINK, CDP #### [facility] [address] [place] [address] Collection Card Clerk: Dwain Aldana MD Chloride [Moles/Vol] 108 mmol/L High 98-107 [facility] Comment on above: Performed By: #### B ALOK FINK4, CDP #### [facility] [address] [place], [place] [phone] Collection Card Clerk: Dwain Aldana MD CO2 [Moles/Vol] 26 mmol/L Normal 20-31 [facility] Comment on above: Performed By: #### B MPX, FT4, CDP #### [facility] Systems [address] [place] [address] [phone] Collection Card Clerk: Dwain Aldana MD Creatinine [Mass/Vol] 0.4 mg/dL Low 0.50-0.90 [facility] Comment on above: Performed By: #### B MPX, FT4, CDP #### [facility] [address] [place] [address] [phone] Collection Card Clerk: Dwain Aldana MD GFR/1.73 sq M.predicted among non-blacks MDRD (S/P/Bld) [Vol rate/Area] mL/min/{1.73_m2} Normal >60 [facility] Comment on above: Result Comment: These [...] By: #### B MPX, FT4, CDP #### [facility] [address] [place] [address] [phone] Collection Card Clerk: Dwain Aldana MD Glucose [Mass/Vol] 83 mg/dL Normal 74-99 [facility] Comment on above: Performed By: #### B MPX, FT4, CDP #### [facility] [address] [place] [address] [phone] Collection Card Clerk: Dwain Aldana MD Potassium [Moles/Vol] 4.4 mmol/L Normal 3.7-5.3 [facility] Comment on above: Performed By: #### B MPX, FT4, CDP #### [facility] [address] [place] [address] 66168 Collection Card Clerk: Dwain Aldana MD Sodium [Moles/Vol] 138 mmol/L Normal 136-145 [facility] Comment on above: Performed By: #### B MPX, FT4, CDP #### [facility] [address] [place], [place] [phone] Collection Card Clerk: Dwain Aldana MD Urea nitrogen [Mass/Vol] 12 mg/dL Normal 8-23 [facility] Comment on above: Performed By: #### B MPX, FT4, CDP #### [facility] [address] [place], [place] [phone] Collection Card Clerk: Dwain Aldana MD Basic Metabolic Panel w/ Ref merlene to MGon 11-30-2023 Anion gap [Moles/Vol] 4 mmol/L Low 9 - 16 mmol/L [facility] [employer] Calcium [Mass/Vol] 6.6 mg/dL Low 8.6 - 10. 4 mg/dL [email or web address] Chloride [Moles/Vol] 108 mmol/L High 98 - 10 7 mmol/L [facility] [email or web address] CO2 [Moles/Vol] 26 mmol/L 20 - 31 mmol/L [email or web address] Creatinine [Mass/Vol] 0.4 mg/dL Low 0.50 - 0.90 mg/dL [facility] HOSPITALPodPoster [place], [place] Rate - [facility] Comment on above: These results [...] [Mass/Vol] 83 mg/dL 74 - 99 mg/dL [facility]ITAL[facility] [employer] Interpretation and review of laboratory results Abnormal [facility] [email or web address] Potassium [Moles/Vol] 4.4 mmol/L 3.7 - 5.3 mmol/L [facility] [employer] Sodium [Moles/Vol] 138 mmol/L 136 - 145 mmol/L [facility] [email or web address] Urea nitrogen [Mass/Vol] 12 mg/dL 8 - 23 mg/dL [facility] CBC with Auto Differentialon 11-30-2023 Basophils (Bld) [#/Vol] 0.03 10*3/uL [facility] Basophils/100 WBC (Bld) 0 % 0 - 2 % [facility] Eosinophils (Bld) [#/Vol] 0.09 10*3/uL [facility] Eosinophils/100 WBC (Bld) 1 % 1 - 4 % [facility] Erythrocyte distribution width (RBC) [Ratio] 17.1 % High 11.8 - 14.4 % [facility] Hematocrit (Bld) [Volume fraction] 19.8 % Low 36.3 - 47.1 % [facility] Hemoglobin (Bld) [Mass/Vol] 6.2 g/dL Critically low 11.9 - 15.1 g/dL [facility] Immature granulocytes (Bld) [#/Vol] 0.06 10*3/uL [facility] Immature granulocytes/100 WBC (Bld) 1 % High 0 [facility] Interpretation and review of laboratory results Abnormal [facility] Lymphocytes/100 WBC (Bld) 19 % Low 24 - 43 % [facility] Lymphocytes/100 WBC (Bld) 1.67 % [facility] MCH (RBC) [Entitic mass] 30.7 pg 25.2 - 33.5 pg [facility] MCHC (RBC) [Mass/Vol] 31.3 g/dL 28.4 - 34.8 g/dL [facility] MCV (RBC) [Entitic vol] 98.0 fL 82.6 - 102.9 fL [facility] Monocytes/100 WBC (Bld) 8 % 3 - 12 % [facility] Monocytes/100 WBC (Bld) 0.73 % [facility] Neutrophils/100 WBC (Bld) 70 % High 36 - 65 % [facility] Nucleated RBC/100 WBC (Bld) [Ratio] 0.0 % 0.0 per 100 WBC [facility] Platelet mean volume (Bld) [Entitic vol] 10.3 fL 8.1 - 13.5 fL [facility] Platelets (Bld) [#/Vol] 171 10*3/uL [facility] RBC (Bld) [#/Vol] 2.02 10*6/uL Low 3.95 - 5.11 m/uL [facility] RBC (Bld) [#/Vol] ANISOCYTOSIS PRESENT [facility] Segmented neutrophils/100 WBC (Bld) 6.10 % [facility] WBC other (Bld) [#/Vol] 8.7 [facility] CBC with Diffon 11-30-2023 Abs. Basophil 0.03 k/uL Normal 0.00-0.20 [facility] Comment on above: Performed By: #### B MPX FT4, CDP #### [facility] [address] [place] [address] Collection Card Clerk: Dwain Aldana MD Abs.Imm.Granulocyte 0.06 k/uL Normal 0.00-0.30 [facility] Comment on above: Performed By: #### B MPX, FT4, CDP #### [facility] [address] [place] [address] Collection Card Clerk: Dwain Aldana MD Abs.Neutrophil (Seg) 6.10 k/uL Normal 1.50-8.10 [facility] Comment on above: Performed By: #### B MPX, FT4, CDP #### [facility] [address] [place] [address] Collection Card Clerk: Dwain Aldana MD Basophils/100 WBC (Bld) 0 % Normal 0-2 [facility] Comment on above: Performed By: #### B MPX, FT4, CDP #### [facility] [address] [place] [address] [phone] Collection Card Clerk: Dwain Aldana MD Eosinophils (Bld) [#/Vol] 0.09 10*3/uL Normal 0.00-0.44 [facility] Comment on above: Performed By: #### B MPX, FT4, CDP #### [facility] [address] [place] [address] [phone] Collection Card Clerk: Dwain Aldana MD Eosinophils/100 WBC (Bld) 1 % Normal 1-4 [facility] Comment on above: Performed By: #### B MPX, FT4, CDP #### [address] [address] Collection Card Clerk: Dwain Aldana MD Immature granulocytes/100 WBC (Bld) 1 % High 0 [facility] Comment on above: Performed By: #### B MPX, FT4, CDP #### [facility] [address] [place] [address] 63235 Collection Card Clerk: Dwain Aldana MD Lymphocytes (Bld) [#/Vol] 1.67 10*3/uL Normal 1.10-3.70 [facility] Comment on above: Performed By: #### B MPX, FT4, CDP #### [facility] [address] [place] [address] [phone] Collection Card Clerk: Dwain Aldana MD Lymphocytes/100 WBC (Bld) 19 % Low 24-43 [facility] Comment on above: Performed By: #### B MPX, FT4, CDP #### [facility] [address] [place] [address] 38313 Collection Card Clerk: Dwain Aldana MD Monocytes (Bld) [#/Vol] 0.73 10*3/uL Normal 0.10-1.20 [facility] Comment on above: Performed By: #### B MPX, FT4, CDP #### [facility] [address] [place] [address] [phone] Collection Card Clerk: Dwain Aldana MD Monocytes/100 WBC (Bld) 8 % Normal 3-12 [facility] Comment on above: Performed By: #### B MPX, FT4, CDP #### [facility] [address] [place] [address] 62083 Collection Card Clerk: Dwain Aldana MD Neutrophil (Seg) 70 % High 36-65 [facility] Comment on above: Performed By: #### B MPX, FT4, CDP #### [facility] [place] [address] Collection Card Clerk: Dwain Aldana MD Erythrocyte distribution width (RBC) [Ratio] 17.1 % High 11.8-14.4 [facility] Comment on above: Performed By: #### B MPX, FT4, CDP #### [facility] [address] [place] [address] [phone] Collection Card Clerk: Dwain Aldana MD Hematocrit (Bld) [Volume fraction] 19.8 % Low 36.3-47.1 [facility] Comment on above: Performed By: #### B MPX, FT4, CDP #### [facility] [address] [place] [address] [phone] Collection Card Clerk: Dwain Aldana MD Hemoglobin (Bld) [Mass/Vol] 6.2 g/dL Critically low 11.9-15.1 [facility] Comment on above: Performed By: #### B MPX, FT4, CDP #### [facility] [address] [place] [address] [phone] Collection Card Clerk: Dwain Aldana MD MCH (RBC) [Entitic mass] 30.7 pg Normal 25.2-33.5 [facility] Comment on above: Performed By: #### B MPX, FT4, CDP #### [facility] [address] [place] [address] [phone] Collection Card Clerk: Dwain Aldana MD MCHC (RBC) [Mass/Vol] 31.3 g/dL Normal 28.4-34.8 [facility] Comment on above: Performed By: #### B MPX, FT4, CDP #### [facility] [address] [place] [address] 11267 Collection Card Clerk: Dwain Aldaan MD MCV (RBC) [Entitic vol] 98.0 fL Normal 82.6-102.9 [facility] Comment on above: Performed By: #### B MPX, FT4, CDP #### [facility] [address] [place] [address] [phone] Collection Card Clerk: Dwain Aldana MD NRBC Automated 0.0 per 100 WBC Normal 0.0 [facility] Comment on above: Performed By: #### B MPX, FT4, CDP #### [facility] [address] [place] [address] [phone] Collection Card Clerk: Dwain Aldana MD Platelet mean volume (Bld) [Entitic vol] 10.3 fL Normal 8.1-13.5 [facility] Comment on above: Performed By: #### B MPX, FT4, CDP #### [facility] [address] [place] [address] [phone] Collection Card Clerk: Dwain Aldana MD Platelets (Bld) [#/Vol] 171 10*3/uL Normal 138-453 [facility] Comment on above: Performed By: #### B MPX, FT4, CDP #### [facility] [address] [place] [address] 63655 Collection Card Clerk: Dwain Aldana MD RBC (Bld) [#/Vol] 2.02 10*6/uL Low 3.95-5.11 [facility] Comment on above: Performed By: #### B MPX, FT4, CDP #### [facility] [address] [place] [address] [phone] Collection Card Clerk: Dwain Aldana MD RBC morphology finding Nom (Bld) ANISOCYTOSIS PRESENT Normal [facility] Comment on above: Performed By: #### B MPX, FT4, CDP #### [facility] [address] [place] [address] [phone] Collection Card Clerk: Dwain Aldana MD WBC (Bld) [#/Vol] 8.7 10*3/uL Normal 3.5-11.3 [facility] Comment on above: Performed By: #### B MPX, FT4, CDP #### [facility] [address] [place] [address] [phone] Collection Card Clerk: Dwain Aldana MD Calcium, Ionicon 11-30-2023 Calcium [Moles/Vol] 1.07 mmol/L Low 1.13-1.33 [facility] Comment on above: Performed By: #### B MPX, MG, CDP #### [email or web address] [address] [place] [address] Collection Card Clerk: Dwain Aldana MD Calcium, Ionizedon 4 Calcium.ionized (Bld) [Moles/Vol] 1.07 mmol/L Low 1.13 - 1.33 mmol/L [email or web address] [facility] Cult, Bloodon 11-30-2023 Cult, Blood Specimen Description .BLOOD Special Requests Culture NO GROWTH 5 DAYS Report Status FINAL 11/30/2023 Normal [facility] Comment on above: Performed By: #### B MPX, MG, CDP #### [facility] [address] [place] [address] [phone] Collection Card Clerk: Dwain Aldana MD Cult,Bloodon 11-30-2023 Cult,Blood Specimen Description .BLOOD Special Requests Culture NO GROWTH 5 DAYS Report Status FINAL 11/30/2023 [facility] Comment on above: Performed By: #### B MPX, MG, CDP #### [facility] [address] [place] [address] [phone] Collection Card Clerk: Dwain Aldana MD Culture, Blood 1on 4 Microorganism identified Cx Nom (Unsp spec) NO GROWTH 5 DAYS [facility] Service comment (Unsp spec) [Interp] [facility] [employer] Specimen Description .BLOOD [email or web address] [facility] [employer] Culture, Blood 2on 4 Microorganism identified Cx Nom (Unsp spec) NO GROWTH 5 DAYS [facility] Service comment (Unsp spec) [Interp] [facility] Specimen Description .BLOOD [facility] Glucose,Whole Bloodon 2023 Glucose [Mass/Vol] 79 mg/dL Normal 65-105 [facility] Hemoglobin and Hematocriton 11-30-2023 Hematocrit (Bld) [Volume fraction] 23.8 % Low 36.3 - 47.1 % [facility] Hemoglobin (Bld) [Mass/Vol] 7.9 g/dL Low 11.9 - 15.1 g/dL [facility] Interpretation and review of laboratory results Abnormal [facility] Hematocrit (Bld) [Volume fraction] 27.5 % Low 36.3 - 47.1 % [facility] Hemoglobin (Bld) [Mass/Vol] 8.6 g/dL Low 11.9 - 15.1 g/dL [facility] Interpretation and review of laboratory results Abnormal [facility] Hematocrit (Bld) [Volume fraction] 26.2 % Low 36.3 - 47.1 % [facility] Hemoglobin (Bld) [Mass/Vol] 8.3 g/dL Low 11.9 - 15.1 g/dL [facility] Interpretation and review of laboratory results Abnormal [facility] Hgb/Hcton 11-30-2023 Hematocrit (Bld) [Volume fraction] 23.8 % Low 36.3-47.1 [facility] Comment on above: Performed By: #### H H #### [facility] [address] [place] [address] Collection Card Clerk: Dwain Aldana MD Hemoglobin (Bld) [Mass/Vol] 7.9 g/dL Low 11.9-15.1 [facility] Comment on above: Performed By: #### H H #### [facility] [address] [place] [address] Collection Card Clerk: Dwain Aldana MD Hematocrit (Bld) [Volume fraction] 27.5 % Low 36.3-47.1 [facility] Comment on above: Performed By: #### B MPX, MG, CDP #### [facility] [address] [place] [address] [phone] Collection Card Clerk: Dwain Aldana MD Hemoglobin (Bld) [Mass/Vol] 8.6 g/dL Low 11.9-15.1 [facility] Comment on above: Performed By: #### B MPX, MG, CDP #### [facility] [address] [place] [address] [phone] Collection Card Clerk: Dwain Aldana MD Hematocrit (Bld) [Volume fraction] 26.2 % Low 36.3-47.1 [facility] Comment on above: Performed By: #### H H #### [facility] [address] [place] [address] [phone] Collection Card Clerk: Dwain Aldana MD Hemoglobin (Bld) [Mass/Vol] 8.3 g/dL Low 11.9-15.1 [facility] Comment on above: Performed By: #### H H #### [facility] [address] [place] [address] [phone] Collection Card Clerk: Dwain Aldana MD Lactic Acidon 11-30-2023 Lactic Acid,Whole Bl 0.6 mmol/L Low 0.7-2.1 [facility] Comment on above: Performed By: #### B MPX, MG, CDP #### [facility] [address] [place] [address] [phone] Collection Card Clerk: Dwain Aldana MD Lactic Acid, Whole Blood 0.6 mmol/L Low 0.7 - 2.1 mmol/L [facility] MRSA DNA Probe, Nasalon MRSA, DNA, Nasal Negative NEGATIVE [facility] Comment on above: NEGATIVE: MRSA DNA n ot detected by nucleic acid amplification. Results should be used as an adjunct to nosocomial control efforts to identify patients needing enhanced precautions. The test is not intended to identify patients with staphylococcal infections. Results should not be used to guide or monitor treatment for MRSA infections. Specimen Description .NASAL SWAB [facility] MRSA, DNA, Nasalon MRSA, DNA, Nasal Negative Normal [facility] Comment on above: Result Comment: NEGA TIVE: MRSA DNA not detected by nucleic acid amplification. Results should be used as an adjunct to nosocomial control efforts to identify patients needing enhanced precautions. The test is not intended to identify patients with staphylococcal infections. Results should not be used to guide or monitor treatment for MRSA infections. Performed By: #### M RSANO #### [facility] [address] [place] [address] [phone] Collection Card Clerk: Dwain Aldana MD No Panel Informationon 11-29 Interpretation and review of laboratory results Abnormal [facility] POC Glucose Fingerstickon Glucose [Mass/Vol] 79 mg/dL 65 - 105 mg/dL [facility] PREVIOUS SPECIMENon 11-30-19 24 [facility] Procalcitoninon 11-30-2023 Procalcitonin 0.05 ng/mL Normal <0.09 [facility] Comment on above: Result Comment: Suspected [...] entered into the Change in Procalcitonin Calculator ([email or web address]) to determine the patient's Mortality Risk Prognosis In healthy neonates, plasma Procalcitonin (PCT) concentrations increase gradually after , reaching peak values at about 24 hours of age then decrease to normal values below 0.5 ng/mL by 48-72 hours of age. Performed By: #### T SHX, PRCAL #### [address] [address] Collection Card Clerk: Dawin Aldana MD Specimen Rejectionon 024 Reason for rejection Unable to perform t esting: Specimen clotted. [facility] Comment on above: Performed By: #### H H #### [address] [address] Collection Card Clerk: Dwain Aldana MD Source of sample .BLOOD [facility] Comment on above: Performed By: #### H H #### [facility] [address] [place] [address] [phone] Collection Card Clerk: Dwain Aldana MD Test ordered [facility] Comment on above: Performed By: #### H H #### [address] [address] Collection Card Clerk: Dwain Aldana MD T4, Freeon 11-30-2023 Free T4 [Mass/Vol] 1.3 ng/dL 0.92 - 1.68 ng/dL [facility] Thyroxine, Freeon 11-30-2023 Thyroxine, Free 1.3 ng/dL Normal 0.92-1.68 [facility] Comment on above: Performed By: #### B MPX, MG, CDP #### [address] [id number] Collection Card Clerk: Dwain Aldana MD Type + Screenon 11-30-2023 Type + Screen Sample Expiration 12/02/2023,2359 Arm Band Number [id number] ABO/Rh(D) A POSITIVE Antibody Screen NEGATIVE Unit Number [id number] Blood Component Type Leukocyte Reduced Red Cell Unit Division 00 Status of Unit TRANSFUSED Transfusion Status OK TO TRANSFUSE Crossmatch Result COMPATIBLE Unit Number [id number] Blood Component Type Leukocyte Reduced Red Cell Unit Division 00 Status of Unit TRANSFUSED Transfusion Status OK TO TRANSFUSE Crossmatch Result COMPATIBLE Unit Number [id number] Blood Component Type Leukocyte Reduced Red Cell Unit Division 00 Status of Unit TRANSFUSED Transfusion Status OK TO TRANSFUSE Crossmatch Result COMPATIBLE Normal [facility] Comment on above: Performed By: #### H H #### [facility] [address] [place] [address] [phone] Collection Card Clerk: Dwain Aldana MD BLOOD BANK SPECIMENon 2023 [facility] Basic Metab w/rfx MGon 11-28 Anion gap [Moles/Vol] 9 mmol/L Normal 9-16 [facility] Comment on above: Performed By: #### B MPX, MG, CDP #### [facility] [address] [place] [address] Collection Card Clerk: Dwain Aldana MD Calcium [Mass/Vol] 6.7 mg/dL Low 8.6-10.4 [facility] Comment on above: Performed By: #### B MPX, MG, CDP #### [facility] [address] [place] [address] [phone] Collection Card Clerk: Dwain Aldana MD Chloride [Moles/Vol] 103 mmol/L Normal 98-107 [facility] Comment on above: Performed By: #### B MPX, MG, CDP #### [facility] [address] [place] [address] [phone] Collection Card Clerk: Dwain Aldana MD CO2 [Moles/Vol] 23 mmol/L Normal 20-31 [facility] Comment on above: Performed By: #### B MPX, MG, CDP #### [facility] [address] [place] [address] [phone] Collection Card Clerk: Dwain Aldana MD Creatinine [Mass/Vol] 0.4 mg/dL Low 0.50-0.90 [facility] Comment on above: Performed By: #### B MPX, MG, CDP #### [facility] [address] [place] [address] [phone] Collection Card Clerk: Dwain Aldana MD GFR/1.73 sq M.predicted among non-blacks MDRD (S/P/Bld) [Vol rate/Area] mL/min/{1.73_m2} Normal >60 [facility] Comment on above: Result Comment: These [...] By: #### B MPX, MG, CDP #### [facility] [address] [place] [address] [phone] Collection Card Clerk: Dwain Aldana MD Glucose [Mass/Vol] 210 mg/dL High 74-99 [facility] Comment on above: Performed By: #### B MPX, MG, CDP #### [facility] [address] [place] [address] [phone] Collection Card Clerk: Dwain Aldana MD Potassium [Moles/Vol] 3.3 mmol/L Low 3.7-5.3 [facility] Comment on above: Performed By: #### B MPX, MG, CDP #### [facility] [address] [place] [address] 34306 Collection Card Clerk: Dwain Aldana MD Sodium [Moles/Vol] 135 mmol/L Low 136-145 [facility] Comment on above: Performed By: #### B MPX, MG, CDP #### [facility] [address] [place] [address] [phone] Collection Card Clerk: Dwain Aldana MD Urea nitrogen [Mass/Vol] 9 mg/dL Normal 8-23 [facility] Comment on above: Performed By: #### B MPX, MG, CDP #### [facility] [address] [place] [address] Collection Card Clerk: Dwain Aldana MD Basic Metabolic Panel w/ Ref merlene to MGon 11-29-2023 Anion gap [Moles/Vol] 9 mmol/L 9 - 16 mmol/L [facility] Calcium [Mass/Vol] 6.7 mg/dL Low 8.6 - 10. 4 mg/dL [facility] Chloride [Moles/Vol] 103 mmol/L 98 - 10 7 mmol/L [facility] CO2 [Moles/Vol] 23 mmol/L 20 - 31 mmol/L [facility] Creatinine [Mass/Vol] 0.4 mg/dL Low 0.50 - 0.90 mg/dL [facility] Est, [place] Rate - [facility] Comment on above: These results [...] 210 mg/dL High 74 - 99 mg/dL [facility] Interpretation and review of laboratory results Abnormal [facility] Potassium [Moles/Vol] 3.3 mmol/L Low 3.7 - 5.3 mmol/L [facility] Sodium [Moles/Vol] 135 mmol/L Low 136 - 145 mmol/L [facility] Urea nitrogen [Mass/Vol] 9 mg/dL 8 - 23 mg/dL [facility] CBC with Auto Differentialon 11-29-2023 Basophils (Bld) [#/Vol] 0.03 10*3/uL [facility] Basophils/100 WBC (Bld) 0 % 0 - 2 % [facility] Eosinophils (Bld) [#/Vol] 0.04 10*3/uL [facility] Eosinophils/100 WBC (Bld) 0 % Low 1 - 4 % [facility] Erythrocyte distribution width (RBC) [Ratio] 19.0 % High 11.8 - 14.4 % [facility] Hematocrit (Bld) [Volume fraction] 20.7 % Low 36.3 - 47.1 % [facility] Hemoglobin (Bld) [Mass/Vol] 6.2 g/dL Critically low 11.9 - 15.1 g/dL [facility] Immature granulocytes (Bld) [#/Vol] 0.07 10*3/uL [facility] Immature granulocytes/100 WBC (Bld) 1 % High 0 [facility] Interpretation and review of laboratory results Abnormal [facility] Lymphocytes/100 WBC (Bld) 7 % Low 24 - 43 % [facility] Lymphocytes/100 WBC (Bld) 0.79 % Low [facility] MCH (RBC) [Entitic mass] 30.7 pg 25.2 - 33.5 pg [facility] MCHC (RBC) [Mass/Vol] 30.0 g/dL 28.4 - 34.8 g/dL [facility] MCV (RBC) [Entitic vol] 102.5 fL 82.6 - 102.9 fL [facility] Monocytes/100 WBC (Bld) 4 % 3 - 12 % [facility] Monocytes/100 WBC (Bld) 0.53 % [facility] Neutrophils/100 WBC (Bld) 88 % High 36 - 65 % [facility] Nucleated RBC/100 WBC (Bld) [Ratio] 0.0 % 0.0 per 100 WBC [facility] Platelet mean volume (Bld) [Entitic vol] 10.8 fL 8.1 - 13.5 fL [facility] Platelets (Bld) [#/Vol] 245 10*3/uL [facility] RBC (Bld) [#/Vol] 2.02 10*6/uL Low 3.95 - 5.11 m/uL [facility] RBC (Bld) [#/Vol] ANISOCYTOSIS PRESENT [facility] Segmented neutrophils/100 WBC (Bld) 10.71 % High [facility] WBC other (Bld) [#/Vol] 12.2 High [facility] CBC with Diffon 11-29-2023 Abs. Basophil 0.03 k/uL Normal 0.00-0.20 [facility] Comment on above: Performed By: #### B MPX MG, CDP #### [facility] [address] [place] [address] Collection Card Clerk: Dwain Aldana MD Abs.Imm.Granulocyte 0.07 k/uL Normal 0.00-0.30 [facility] Comment on above: Performed By: #### B MPX MG, CDP #### [facility] [address] [place] [phone] Collection Card Clerk: Dwain Aldana MD Abs.Neutrophil (Seg) 10.71 k/uL High 1.50-8.10 [facility] Comment on above: Performed By: #### B MPX, MG, CDP #### [facility] [address] [place] [address] Collection Card Clerk: Dwain Aldana MD Basophils/100 WBC (Bld) 0 % Normal 0-2 [facility] Comment on above: Performed By: #### B MPX, MG, CDP #### [facility] [address] [place] [address]2740 Collection Card Clerk: Dwain Aldana MD Eosinophils (Bld) [#/Vol] 0.04 10*3/uL Normal 0.00-0.44 [facility] Comment on above: Performed By: #### B MPX, MG, CDP #### [facility] [address] [place] [address] 6[address] Collection Card Clerk: Dwain Aldana MD Eosinophils/100 WBC (Bld) 0 % Low 1-4 [facility] Comment on above: Performed By: #### B MPX, MG, CDP #### [facility] [address] [place] [address] Collection Card Clerk: Dwain Aldana MD Erythrocyte distribution width (RBC) [Ratio] 19.0 % High 11.8-14.4 [facility] Comment on above: Performed By: #### B MPX, MG, CDP #### [facility] [address] [place] [phone] Collection Card Clerk: Dwain Aldana MD Hematocrit (Bld) [Volume fraction] 20.7 % Low 36.3-47.1 [facility] Comment on above: Performed By: #### B MPX, MG, CDP #### [facility] [address] [place] [address] Collection Card Clerk: Dwain Aldana MD Hemoglobin (Bld) [Mass/Vol] 6.2 g/dL Critically low 11.9-15.1 [facility] Comment on above: Performed By: #### B MPX, MG, CDP #### [facility] [address] [place] [address] Collection Card Clerk: Dwain Aldana MD Immature granulocytes/100 WBC (Bld) 1 % High 0 [facility] Comment on above: Performed By: #### B MPX, MG, CDP #### [facility] [address] [place] [address] 6[address] Collection Card Clerk: Dwain Aldana MD Lymphocytes (Bld) [#/Vol] 0.79 10*3/uL Low 1.10-3.70 [facility] Comment on above: Performed By: #### B MPX, MG, CDP #### [facility] [address] [place] [address] Collection Card Clerk: Dwain Aldana MD Lymphocytes/100 WBC (Bld) 7 % Low 24-43 [facility] Comment on above: Performed By: #### B MPX, MG, CDP #### [facility] [address] [place] [address] 089[address] Collection Card Clerk: Dwain Aldana MD MCH (RBC) [Entitic mass] 30.7 pg Normal 25.2-33.5 [facility] Comment on above: Performed By: #### B MPX, MG, CDP #### [facility] [address] [place] [address] Collection Card Clerk: Dwain Aldana MD MCHC (RBC) [Mass/Vol] 30.0 g/dL Normal 28.4-34.8 [facility] Comment on above: Performed By: #### B MPX, MG, CDP #### [address] [address] Collection Card Clerk: Dwain Aldana MD MCV (RBC) [Entitic vol] 102.5 fL Normal 82.6-102.9 [facility] Comment on above: Performed By: #### B MPX, MG, CDP #### [address] [address] Collection Card Clerk: Dwain Aldana MD Monocytes (Bld) [#/Vol] 0.53 10*3/uL Normal 0.10-1.20 [facility] Comment on above: Performed By: #### B MPX, MG, CDP #### [address] [address] Collection Card Clerk: Dwain Aldana MD Monocytes/100 WBC (Bld) 4 % Normal 3-12 [facility] Comment on above: Performed By: #### B MPX, MG, CDP #### [facility] [address] [place] [address] Collection Card Clerk: Dwain Aldana MD Neutrophil (Seg) 88 % High 36-65 [facility] Comment on above: Performed By: #### B MPX, MG, CDP #### [address] [address] Collection Card Clerk: Dwain Aldana MD NRBC Automated 0.0 per 100 WBC Normal 0.0 [facility] Comment on above: Performed By: #### B MPX, MG, CDP #### [address] [address] Collection Card Clerk: Dwain Aldana MD Platelet mean volume (Bld) [Entitic vol] 10.8 fL Normal 8.1-13.5 [facility] Comment on above: Performed By: #### B MPX, MG, CDP #### [address] [address] Collection Card Clerk: Dwain Aldana MD Platelets (Bld) [#/Vol] 245 10*3/uL Normal 138-453 [facility] Comment on above: Performed By: #### B MPX, MG, CDP #### [address] [address] Collection Card Clerk: Dwain Aldana MD RBC (Bld) [#/Vol] 2.02 10*6/uL Low 3.95-5.11 [facility] Comment on above: Performed By: #### B MPX, MG, CDP #### [address] [address] Collection Card Clerk: Dwain Aldana MD RBC morphology finding Nom (Bld) ANISOCYTOSIS PRESENT Normal [facility] Comment on above: Performed By: #### B MPX, MG, CDP #### [address] [address] Collection Card Clerk: Dwain Aldana MD WBC (Bld) [#/Vol] 12.2 10*3/uL High 3.5-11.3 [facility] Comment on above: Performed By: #### B MPX, MG, CDP #### [address] [address] Collection Card Clerk: Dwain Aldana MD CT SINUS WO CONTRASTon [...] Ion Leon MD 11/29/23 Final result Normal [facility] CT Sinuses WO contraston Chronic sinusitis involving the left maxillary sinus. Potential remote posttraumatic change of the left inferior orbital wall and correlation is needed. [facility] RIS CONSOLIDATED EXAMINATION: CT OF THE SINUS WITHOUT [...] intracranial contents demonstrate no gross acute abnormality. [facility] RIS CONSOLIDATED Ion Leon MD - 11/29/2023 EXAMINATION: [...] inferior orbital wall and correlation is needed. [facility] Radiology Study observation (narrative) [facility]A ABDOMEN PELVIS W WO CONTRAST [...] Shagufta Echevarria DO 11/29/23 Final result Normal [facility] CTA Abdominal vessels and Pe lvis [...] its branches without evidence of flow-limiting stenosis. [facility] Radiology Study observation (narrative) [facility] CTA Abdominal vessels and Pe lvis vessels WO and W contrast IVOrdered By: Shagufta Echevarria on 11-29-2023 [facility] Work Phone: Hemoglobin and Hematocriton 11-29-2023 Hematocrit (Bld) [Volume fraction] 23.5 % Low 36.3 - 47.1 % [facility] Hemoglobin (Bld) [Mass/Vol] 7.8 g/dL Low 11.9 - 15.1 g/dL [facility] Interpretation and review of laboratory results Abnormal [facility] Hematocrit (Bld) [Volume fraction] 18.8 % Low 36.3 - 47.1 % [facility] Hemoglobin (Bld) [Mass/Vol] 6.0 g/dL Critically low 11.9 - 15.1 g/dL [facility] Interpretation and review of laboratory results Abnormal [facility] Hepatic Function Panelon Albumin [Mass/Vol] 2.1 g/dL Low 3.5 - 5.2 g/dL [facility] Albumin/Globulin [Mass ratio] 2.0 {ratio} 1.0 - 2.5 [facility] ALP [Catalytic activity/Vol] 45 U/L 35 - 104 U/L [facility] ALT [Catalytic activity/Vol] 19 U/L 10 - 35 U/L [facility] AST [Catalytic activity/Vol] 27 U/L 10 - 35 U/L [facility] Bilirubin [Mass/Vol] mg/dL 0.00 - 1.20 mg/dL [facility] Bilirubin.direct [Mass/Vol] mg/dL 0.00 - 0.30 mg/dL [facility] Bilirubin.indirect [Mass/Vol] Can not be calculated 0.0 - 1.0 mg/dL [facility] Globulin (S) [Mass/Vol] 1.4 g/dL [facility] Interpretation and review of laboratory results Abnormal [facility] Protein [Mass/Vol] 3.5 g/dL Low 6.6 - 8.7 g/dL [facility] Hgb/Hcton 11-29-2023 Hematocrit (Bld) [Volume fraction] 23.5 % Low 36.3-47.1 [facility] Comment on above: Performed By: #### H H #### [facility] [address] [place] [address] Collection Card Clerk: Dwain Aldana MD Hemoglobin (Bld) [Mass/Vol] 7.8 g/dL Low 11.9-15.1 [facility] Comment on above: Performed By: #### H H #### [facility] [address] [place] [address] Collection Card Clerk: Dwain Aldana MD Hematocrit (Bld) [Volume fraction] 18.8 % Low 36.3-47.1 [facility] Comment on above: Performed By: #### H H #### [facility] [address] [place] [address] Collection Card Clerk: Dwain Aldana MD Hemoglobin (Bld) [Mass/Vol] 6.0 g/dL Critically low 11.9-15.1 [facility] Comment on above: Performed By: #### H H #### [facility] [address] [place] [address] 33072 Collection Card Clerk: Dwain Aldana MD Liver Profileon 11-29-2023 Albumin [Mass/Vol] 2.1 g/dL Low 3.5-5.2 [facility] Comment on above: Performed By: #### B MPX, MG, CDP #### [facility] [address] [place] [address]20 Collection Card Clerk: Dwain Aldana MD Albumin/Glob Ratio 2.0 Normal 1.0-2.5 [facility] Comment on above: Performed By: #### B MPX, MG, CDP #### [facility] [address] [place] [address] 9[address] Collection Card Clerk: Dwain Aldana MD Alkaline Phos 45 U/L Normal 35-104 [facility] Comment on above: Performed By: #### B MPX, MG, CDP #### [facility] [address] [place] [address] Collection Card Clerk: Dwain Aldana MD ALT [Catalytic activity/Vol] 19 U/L Normal 10-35 [facility] Comment on above: Performed By: #### B MPX, MG, CDP #### [facility] [address] [place] [address] Collection Card Clerk: Dwain Aldana MD AST [Catalytic activity/Vol] 27 U/L Normal 10-35 [facility] Comment on above: Performed By: #### B MPX, MG, CDP #### [facility] [address] [place] [address] 79274 Collection Card Clerk: Dwain Aldana MD Bilirubin [Mass/Vol] mg/dL Normal 0.00-1.20 [facility] Comment on above: Performed By: #### B MPX, MG, CDP #### [facility] [address] [place] [address] 27918 Collection Card Clerk: Dwain Aldana MD Bilirubin, Indirect Can not be calculated Normal 0.0-1 .0 [facility] Comment on above: Performed By: #### B MPX, MG, CDP #### [facility] [address] [place] [address] Collection Card Clerk: Dwain Aldana MD Bilirubin.indirect [Mass/Vol] mg/dL Normal 0.00-0.30 [facility] Comment on above: Performed By: #### B MPX, MG, CDP #### [facility] [address] [place] [address]34 Collection Card Clerk: Dwain Aldana MD Globulin (S) [Mass/Vol] 1.4 g/dL Normal [facility] Comment on above: Performed By: #### B MPX, MG, CDP #### [facility] [place] [address] Collection Card Clerk: Dwain Aldana MD Protein [Mass/Vol] 3.5 g/dL Low 6.6-8.7 [facility] Comment on above: Performed By: #### B MPX, MG, CDP #### [facility] [address] [place] [address] Collection Card Clerk: Dwain Aldana MD MRSA, DNA, Nasalon Specimen Description .NASAL SWAB Normal [facility] Comment on above: Performed By: #### M RSANO #### [facility] [address] [place] [address] Collection Card Clerk: Dwain Aldana MD Magnesiumon 7 Magnesium [Mass/Vol] 1.7 mg/dL Normal 1.6-2.4 [facility] Comment on above: Performed By: #### B MPX, MG, CDP #### [facility] [address] [place] [address] Collection Card Clerk: Dwain Aldana MD Magnesium [Mass/Vol] 1.7 mg/dL 1.6 - 2 .4 mg/dL [facility] PREVIOUS SPECIMENon 11-29-19 [facility] Procalcitoninon 11-29-2023 Procalcitonin [Mass/Vol] 0.05 ng/mL NINF - 0.09 ng/mL [facility] Comment on above: Suspected Sepsis: <0.50 [...] entered into the Change in Procalcitonin Calculator ([email or web address]) to determine the patient's Mortality Risk Prognosis In healthy neonates, plasma Procalcitonin (PCT) concentrations increase gradually after , reaching peak values at about 24 hours of age then decrease to normal values below 0.5 ng/mL by 48-72 hours of age. [facility] Specimen Rejectionon 024 Reason for rejection Unable to perform t esting: Specimen quantity not sufficient. [facility] Comment on above: Performed By: #### T JEAN PRCAL #### [facility] [address] [place] [address] Collection Card Clerk: Dwain Aldana MD Source of sample .BLOOD [facility] Comment on above: Performed By: #### Shaquille PENA PRCAL #### [facility] [address] [place], [place] [phone] Collection Card Clerk: Dwain Aldana MD Test ordered [facility] Comment on above: Performed By: #### Shaquille PENA PRCAL #### [facility] [address] [place] [address] [phone] Collection Card Clerk: Dwain Aldana MD TSH w/reflex to FT4on 2023 Thyroid Stim. Horm. 9.13 uIU/mL High 0.27-4.20 [facility] Comment on above: Performed By: #### T LISAX, PRCAL #### [facility] [address] [place] [address] Collection Card Clerk: Dwain Aldana MD TSH with Reflexon 11-29-2023 Interpretation and review of laboratory results Abnormal [facility] TSH Qn 9.13 m[IU]/L High [facility] Basic Metab w/rfx MGon 11-27 Anion gap [Moles/Vol] 9 mmol/L Normal 9-16 [facility] Comment on above: Performed By: #### T LISAX, PRCAL #### [address] [address] Collection Card Clerk: Dwain Aldana MD Calcium [Mass/Vol] 6.4 mg/dL Low 8.6-10.4 [facility] Comment on above: Performed By: #### T LISAX, PRCAL #### [address] [address] Collection Card Clerk: Dwain Aldana MD Chloride [Moles/Vol] 105 mmol/L Normal 98-107 [facility] Comment on above: Performed By: #### T LISAX, PRCAL #### [facility] [address] [place] [address] Collection Card Clerk: Dwain Aldana MD CO2 [Moles/Vol] 21 mmol/L Normal 20-31 [facility] Comment on above: Performed By: #### T LISAX, PRCAL #### [facility] [address] [place] [address] Collection Card Clerk: Dwain Aldana MD Creatinine [Mass/Vol] 0.3 mg/dL Low 0.50-0.90 [facility] Comment on above: Performed By: #### T LISAX, PRCAL #### [address] [address] Collection Card Clerk: Dwain Aldana MD GFR/1.73 sq M.predicted among non-blacks MDRD (S/P/Bld) [Vol rate/Area] mL/min/{1.73_m2} Normal >60 [facility] Comment on above: Result Comment: These [...] affects renal tubular secretion. Performed By: #### T LISAX, PRCAL #### [facility] [address] [place] [address] Collection Card Clerk: Dwain Aldana MD Glucose [Mass/Vol] 88 mg/dL Normal 74-99 [facility] Comment on above: Performed By: #### T LISAX, PRCAL #### [facility] [address] [place] [address] Collection Card Clerk: Dwain Aldana MD Potassium [Moles/Vol] 3.7 mmol/L Normal 3.7-5.3 [facility] Comment on above: Performed By: #### T LISAX, PRCAL #### [facility] [address] [place] [address] Collection Card Clerk: Dwain Aldana MD Sodium [Moles/Vol] 135 mmol/L Low 136-145 [facility] Comment on above: Performed By: #### T LISAX, PRCAL #### [facility] [address] [place] [address] Collection Card Clerk: Dwain Aldana MD Urea nitrogen [Mass/Vol] 10 mg/dL Normal 8-23 [facility] Comment on above: Performed By: #### T LISAX, PRCAL #### [facility] [address] [place] [address] Collection Card Clerk: Dwain Aldana MD Basic Metabolic Panel w/ Ref merlene to MGon 11-28-2023 Anion gap [Moles/Vol] 9 mmol/L 9 - 16 mmol/L [facility] Calcium [Mass/Vol] 6.4 mg/dL Low 8.6 - 10. 4 mg/dL [facility] Chloride [Moles/Vol] 105 mmol/L 98 - 10 7 mmol/L [facility] CO2 [Moles/Vol] 21 mmol/L 20 - 31 mmol/L [facility] Creatinine [Mass/Vol] 0.3 mg/dL Low 0.50 - 0.90 mg/dL [facility] Est, [place] Rate - [facility] Comment on above: These results [...] [Mass/Vol] 88 mg/dL 74 - 99 mg/dL [facility] Interpretation and review of laboratory results Abnormal [facility] Potassium [Moles/Vol] 3.7 mmol/L 3.7 - 5.3 mmol/L [facility] Sodium [Moles/Vol] 135 mmol/L Low 136 - 145 mmol/L [facility] Urea nitrogen [Mass/Vol] 10 mg/dL 8 - 23 mg/dL [facility] Hgb/Hcton 11-28-2023 Hematocrit (Bld) [Volume fraction] 24.0 % Low 36.3-47.1 [facility] Comment on above: Performed By: #### H H #### [facility] [address] [place] [address] Collection Card Clerk: Dwain Aldana MD Hemoglobin (Bld) [Mass/Vol] 7.5 g/dL Low 11.9-15.1 [facility] Comment on above: Performed By: #### H H #### [facility] [address] [place], [place] [phone] Collection Card Clerk: Dwain Aldana MD IR EMBOLIZATION HEMORRHAGEon 11-28-2023 Contrast extravasati on via truncated duodenal side-branch GDA with successful coil embolization, as above. [facility] Jorge Day MD - 11/28/2023 PROCEDURE: IR EMBOLIZATION VASCULAR ANY HEMORRHAGE 11/27/2023 HISTORY: ORDERING SYSTEM PROVIDED HISTORY: Embolization of GDA/GI bleed TECHNOLOGIST PROVIDED HISTORY: Embolization of GDA/GI bleed CONTRAST: Isovue 370-110 mL SEDATION: Fentanyl 50 mcg IV for discomfort. Medications were provided and recorded by Radiology nurses. FLUOROSCOPY DOSE AND TYPE: Fluoroscopy time-15.7 minutes. Radiation Exposure Index: DAP cGy*m2, 24530 DESCRIPTION OF PROCEDURE: Arteries interrogated: Celiac, GDA, [...] for a 0.035 inch wire and 5 [place] introducer sheath. Randal 5 [place] x 65 cm catheter was introduced and the celiac artery catheterize; hand celiac angiography was performed. A 0.035 inch glidewire was manipulated into the distal hepatic arteries, catheter exchanged for a 5 [place] Cobra glide catheter which was manipulated into the origin GDA. Digital angiography was then performed. [place] delivery microcatheter 45 degree tip was then [...] removed. Subsequent hand injection via the 5 [place] catheter the proper hepatic was performed. The guide catheter was removed, and the Randal catheter reinserted. Celiac and SMA digital angiography were then performed. The Randal catheter was removed. Hand digital angiography right iliofemoral vessels was performed at the groin. The right groin was re-prepped, and a 5 [place] Vascade closure device was deployed right PIPING MANAGER. The patient tolerated procedure well and [...] or site of bleeding identified. Normal right PIPING MANAGER entry site pre closure device placement. 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 [facility] IR EMBOLIZATION HEMORRHAGEOr dered By: Jorge Russo on 11-28-2023 [facility] Work Phone: No Panel Informationon 11-27 Blood Bank Blood Product Expiration Date [id number] [facility] Blood Bank ISBT Product Blood Type 6200 [facility] Blood Bank Unit Type and Rh Positive [facility] Component Leukocyte Reduced Red Cell [facility] Crossmatch Result COMPATIBLE [facility] Dispense Status Blood Bank TRANSFUSED [facility] Product Code Blood Bank [id number] [facility] Transfusion Status OK TO TRANSFUSE B ON [facility] Unit Divison 0 [facility] TYPE AND SCREENon 11-28-2023 ABO/Rh Positive [facility] Arm Band Number [id number] [facility] Blood Bank Blood Product Expiration Date [facility] Blood Bank Sample Expiration 11/28/2023,2359 [facility] Blood product unit ID (Dose) [#] [id number] [facility] Blood product unit ID (Dose) [#] [id number] [facility] Blood product unit ID (Dose) [#] [id number] [facility] Unit Issue Date/Time [id number] [facility] Unit Issue Date/Time [id number] [facility] Unit Issue Date/Time [id number] [facility] Type + Screenon 11-28-2023 Type + Screen Sample Expiration 11/28/2023,2359 Arm Band Number [id number] ABO/Rh(D) A POSITIVE Antibody Screen NEGATIVE Unit Number [id number] Blood Component Type Leukocyte Reduced Red Cell Unit Division 00 Status of Unit TRANSFUSED Transfusion Status OK TO TRANSFUSE Crossmatch Result COMPATIBLE Unit Number [id number] Blood Component Type Leukocyte Reduced Red Cell Unit Division 00 Status of Unit TRANSFUSED Transfusion Status OK TO TRANSFUSE Crossmatch Result COMPATIBLE Unit Number [id number] Blood Component Type Leukocyte Reduced Red Cell Unit Division 00 Status of Unit TRANSFUSED Transfusion Status OK TO TRANSFUSE Crossmatch Result COMPATIBLE Normal [facility] Comment on above: Performed By: #### H H #### [address] [address] Collection Card Clerk: Dwain Aldana MD Basic Metab w/rfx MGon 11-26 Anion gap [Moles/Vol] 7 mmol/L Low 9-16 [facility] Comment on above: Performed By: #### B MPX, MG, CDP #### [facility] [address] [place] [address] Collection Card Clerk: Dwain Aldana MD Calcium [Mass/Vol] 6.3 mg/dL Low 8.6-10.4 [facility] Comment on above: Performed By: #### B MPX, MG, CDP #### [facility] [address] [place] [address] Collection Card Clerk: Dwain Aldana MD Chloride [Moles/Vol] 105 mmol/L Normal 98-107 [facility] Comment on above: Performed By: #### B MPX, MG, CDP #### [facility] [address] [place] [address] Collection Card Clerk: Dwain Aldana MD CO2 [Moles/Vol] 22 mmol/L Normal 20-31 [facility] Comment on above: Performed By: #### B MPX, MG, CDP #### [facility] [address] [place] [address] Collection Card Clerk: Dwain Aldana MD Creatinine [Mass/Vol] 0.4 mg/dL Low 0.50-0.90 [facility] Comment on above: Performed By: #### B MPX, MG, CDP #### [employer] [address] [place] [phone] Collection Card Clerk: Dwain Aldana MD GFR/1.73 sq M.predicted among non-blacks MDRD (S/P/Bld) [Vol rate/Area] mL/min/{1.73_m2} Normal >60 [facility] Comment on above: Result Comment: These [...] By: #### B MPX, MG, CDP #### [employer] [address] [place] [address] [phone] Collection Card Clerk: Dwain Aldana MD Glucose [Mass/Vol] 83 mg/dL Normal 74-99 [facility] Comment on above: Performed By: #### B MPX, MG, CDP #### [facility] [employer] [address] [place] [phone] Collection Card Clerk: Dwain Aldana MD Potassium [Moles/Vol] 3.4 mmol/L Low 3.7-5.3 [facility] Comment on above: Performed By: #### B MPX, MG, CDP #### [facility] [employer] [address] [place] [address] [phone] Collection Card Clerk: Dwain Aldana MD Sodium [Moles/Vol] 134 mmol/L Low 136-145 [facility] Comment on above: Performed By: #### B MPX, MG, CDP #### [email or web address] [employer] [address] [place] [address] Collection Card Clerk: Dwain Aldana MD Urea nitrogen [Mass/Vol] 7 mg/dL Low 8-23 [facility] Comment on above: Performed By: #### B MPX, MG, CDP #### [email or web address] [address] [place] [address] Collection Card Clerk: Dwain Aldana MD Basic Metabolic Panel w/ Ref merlene to MGon 11-27-2023 Anion gap [Moles/Vol] 7 mmol/L Low 9 - 16 mmol/L [facility] Calcium [Mass/Vol] 6.3 mg/dL Low 8.6 - 10. 4 mg/dL [facility] Chloride [Moles/Vol] 105 mmol/L 98 - 10 7 mmol/L [facility] CO2 [Moles/Vol] 22 mmol/L 20 - 31 mmol/L [facility] Creatinine [Mass/Vol] 0.4 mg/dL Low 0.50 - 0.90 mg/dL [facility] [employer] Est, Glom Filt Rate - [facility] Comment on above: These results [...] [Mass/Vol] 83 mg/dL 74 - 99 mg/dL [facility] Interpretation and review of laboratory results Abnormal [facility] Potassium [Moles/Vol] 3.4 mmol/L Low 3.7 - 5.3 mmol/L [facility] Sodium [Moles/Vol] 134 mmol/L Low 136 - 145 mmol/L [facility] Urea nitrogen [Mass/Vol] 7 mg/dL Low 8 - 23 mg/dL [facility] Hemoglobin and Hematocriton 11-27-2023 Hematocrit (Bld) [Volume fraction] 17.9 % Low 36.3 - 47.1 % [facility] Hemoglobin (Bld) [Mass/Vol] 5.7 g/dL Critically low 11.9 - 15.1 g/dL [facility] Interpretation and review of laboratory results Abnormal [facility] Hematocrit (Bld) [Volume fraction] 18.0 % Low 36.3 - 47.1 % [facility] Hemoglobin (Bld) [Mass/Vol] 5.9 g/dL Critically low 11.9 - 15.1 g/dL [facility] Interpretation and review of laboratory results Abnormal [facility] Hematocrit (Bld) [Volume fraction] 23.0 % Low 36.3 - 47.1 % [facility] Hemoglobin (Bld) [Mass/Vol] 7.2 g/dL Low 11.9 - 15.1 g/dL [facility] Interpretation and review of laboratory results Abnormal [facility] Hematocrit (Bld) [Volume fraction] 22.0 % Low 36.3 - 47.1 % [facility] Hemoglobin (Bld) [Mass/Vol] 7.2 g/dL Low 11.9 - 15.1 g/dL [facility] Interpretation and review of laboratory results Abnormal [facility] Hgb/Hcton 11-27-2023 Hematocrit (Bld) [Volume fraction] 17.9 % Low 36.3-47.1 [facility] Comment on above: Performed By: #### B MPX, MG, CDP #### [facility] [address] [place] [phone] Collection Card Clerk: Dwain Aldana MD Hemoglobin (Bld) [Mass/Vol] 5.7 g/dL Critically low 11.9-15.1 [facility] Comment on above: Performed By: #### B MPX, MG, CDP #### [facility] [address] [place] [phone] Collection Card Clerk: Dwain Aldana MD Hematocrit (Bld) [Volume fraction] 18.0 % Low 36.3-47.1 [facility] Comment on above: Performed By: #### H H #### [facility] [address] [place] [address] [phone] Collection Card Clerk: Dwain Aldana MD Hemoglobin (Bld) [Mass/Vol] 5.9 g/dL Critically low 11.9-15.1 [facility] Comment on above: Performed By: #### H H #### [facility] [address] [place] [address] [phone] Collection Card Clerk: Dwain Aldana MD Hematocrit (Bld) [Volume fraction] 23.0 % Low 36.3-47.1 [facility] Comment on above: Performed By: #### H H #### [address] [address] Collection Card Clerk: Dwain Aldana MD Hemoglobin (Bld) [Mass/Vol] 7.2 g/dL Low 11.9-15.1 [facility] Comment on above: Performed By: #### H H #### [facility] [employer] [address] [place] [phone] Collection Card Clerk: Dwain Aldana MD Hematocrit (Bld) [Volume fraction] 22.0 % Low 36.3-47.1 [facility] Comment on above: Performed By: #### H H #### [facility] [address] [place] [address]782 Collection Card Clerk: Dwain Aldana MD Hemoglobin (Bld) [Mass/Vol] 7.2 g/dL Low 11.9-15.1 [facility] Comment on above: Performed By: #### H H #### [facility] [address] [place] [address] Collection Card Clerk: Dwain Aldana MD Hematocrit (Bld) [Volume fraction] 24.3 % Low 36.3-47.1 [facility] Comment on above: Performed By: #### H H #### [email or web address] [address] [place] [address] Collection Card Clerk: Dwain Aldana MD Hemoglobin (Bld) [Mass/Vol] 7.7 g/dL Low 11.9-15.1 [facility] Comment on above: Performed By: #### H H #### [facility] [address] [place] [address] Collection Card Clerk: Dwain Aldana MD Magnesiumon 11-27-2023 Magnesium [Mass/Vol] 1.9 mg/dL Normal 1.6-2.4 [facility] Comment on above: Performed By: #### B MPX, MG, CDP #### [email or web address] [address] [place] [address] Collection Card Clerk: Dwain Aldana MD Magnesium [Mass/Vol] 1.9 mg/dL 1.6 - 2 .4 mg/dL [facility] No Panel Informationon 11-26 Radiology Study observation (narrative) [facility] Portable XR Chest AP single viewon 11-27-2023 Right mid and lower lung consolidation consistent with pneumonia. Trace left basilar effusion. [facility] RIS CONSOLIDATED EXAMINATION: ONE XRAY VIEW [...] with pneumonia. Trace left basilar effusion. [facility] [employer] Portable XR Chest AP single viewOrdered By: Ion Leon on 11-27-2023 [facility] [employer] Work Phone: XR CHEST PORTABLEon 11-27-19 XR CHEST PORTABLE EXAMINATION: ONE XRAY VIEW [...] Ion Leon MD 11/27/23 Final result Normal [facility] Basic Metab w/rfx MGon 11-25 Anion gap [Moles/Vol] 11 mmol/L Normal 9-16 [facility] Comment on above: Performed By: #### B MPX, MG, CDP #### [facility] [address] [place] [address] [phone] Collection Card Clerk: Dwain Aldana MD Calcium [Mass/Vol] 6.3 mg/dL Low 8.6-10.4 [facility] Comment on above: Performed By: #### B MPX, MG, CDP #### [facility] [address] [place] [address] [phone] Collection Card Clerk: Dwain Aldana MD Chloride [Moles/Vol] 112 mmol/L High 98-107 [facility] Comment on above: Performed By: #### B MPX, MG, CDP #### [facility] [place] [address] Collection Card Clerk: Dwain Aldana MD CO2 [Moles/Vol] 17 mmol/L Low 20-31 [facility] Comment on above: Performed By: #### B MPX, MG, CDP #### [facility] [address] [place] [phone] Collection Card Clerk: Dwain Aldana MD Creatinine [Mass/Vol] 0.3 mg/dL Low 0.50-0.90 [facility] Comment on above: Performed By: #### B MPX, MG, CDP #### [address] [address] Collection Card Clerk: Dwain Aldana MD GFR/1.73 sq M.predicted among non-blacks MDRD (S/P/Bld) [Vol rate/Area] mL/min/{1.73_m2} Normal >60 [facility] Comment on above: Result Comment: These [...] By: #### B MPX, MG, CDP #### [facility] [address] [place] [address] [phone] Collection Card Clerk: Dwain Aldana MD Glucose [Mass/Vol] 82 mg/dL Normal 74-99 [facility] Comment on above: Performed By: #### B MPX, MG, CDP #### [facility] [facility] [address] [place] [address] [phone] Collection Card Clerk: Dwain Aldana MD Potassium [Moles/Vol] 3.4 mmol/L Low 3.7-5.3 [facility] Comment on above: Performed By: #### B MPX, MG, CDP #### [facility] [address] [place], [place] [phone] Collection Card Clerk: Dwain Aldana MD Sodium [Moles/Vol] 140 mmol/L Normal 136-145 [facility] Comment on above: Performed By: #### B MPX, MG, CDP #### [facility] [address] [place], [place] [phone] Collection Card Clerk: Dwain Aldana MD Urea nitrogen [Mass/Vol] 9 mg/dL Normal 8-23 [facility] Comment on above: Performed By: #### B MPX, MG, CDP #### [facility] [address] [place], [place] [phone] Collection Card Clerk: Dwain Aldana MD Basic Metabolic Panel w/ Ref merlene to on 11-26-2023 Anion gap [Moles/Vol] 11 mmol/L 9 - 16 mmol/L [facility]ITAL[facility] [employer] Calcium [Mass/Vol] 6.3 mg/dL Low 8.6 - 10. 4 mg/dL [email or web address] Chloride [Moles/Vol] 112 mmol/L High 98 - 10 7 mmol/L [facility] [email or web address] CO2 [Moles/Vol] 17 mmol/L Low 20 - 31 mmol/L [email or web address] Creatinine [Mass/Vol] 0.3 mg/dL Low 0.50 - 0.90 mg/dL [facility]OS[facility]ITALPodPoster Est, [place] Garn[place] Rate - [facility] Comment on above: These results [...] [Mass/Vol] 82 mg/dL 74 - 99 mg/dL [facility]ITALPod[facility]oster Interpretation and review of laboratory results Abnormal [facility] [employer] Potassium [Moles/Vol] 3.4 mmol/L Low 3.7 - 5.3 mmol/L [facility] Sodium [Moles/Vol] 140 mmol/L 136 - 145 mmol/L [facility] Urea nitrogen [Mass/Vol] 9 mg/dL 8 - 23 mg/dL [facility] Hemoglobin and Hematocriton 11-26-2023 Hematocrit (Bld) [Volume fraction] 24.3 % Low 36.3 - 47.1 % [facility] Hemoglobin (Bld) [Mass/Vol] 7.7 g/dL Low 11.9 - 15.1 g/dL [facility] Interpretation and review of laboratory results Abnormal [facility] Hematocrit (Bld) [Volume fraction] 24.6 % Low 36.3 - 47.1 % [facility] Hemoglobin (Bld) [Mass/Vol] 8.1 g/dL Low 11.9 - 15.1 g/dL [facility] Interpretation and review of laboratory results Abnormal [facility] Hematocrit (Bld) [Volume fraction] 26.7 % Low 36.3 - 47.1 % [facility] Hemoglobin (Bld) [Mass/Vol] 8.6 g/dL Low 11.9 - 15.1 g/dL [facility] Interpretation and review of laboratory results Abnormal [facility] Hematocrit (Bld) [Volume fraction] 26.3 % Low 36.3 - 47.1 % [facility] Hemoglobin (Bld) [Mass/Vol] 8.1 g/dL Low 11.9 - 15.1 g/dL [facility] Interpretation and review of laboratory results Abnormal [facility] Hgb/Hcton 11-26-2023 Hematocrit (Bld) [Volume fraction] 24.6 % Low 36.3-47.1 [facility] Comment on above: Performed By: #### H H #### [facility] [place] [address] Collection Card Clerk: Dwain Aldana MD Hemoglobin (Bld) [Mass/Vol] 8.1 g/dL Low 11.9-15.1 [facility] Comment on above: Performed By: #### H H #### [facility] [address] [place] [phone] Collection Card Clerk: Dwain Aldana MD Hematocrit (Bld) [Volume fraction] 26.7 % Low 36.3-47.1 [facility] Comment on above: Performed By: #### T SHX, PRCAL #### [facility] [address] [place] [phone] Collection Card Clerk: Dwain Aldana MD Hemoglobin (Bld) [Mass/Vol] 8.6 g/dL Low 11.9-15.1 [facility] Comment on above: Performed By: #### T SHX, PRCAL #### [facility] [address] [place] [phone] Collection Card Clerk: Dwain Aldana MD Hematocrit (Bld) [Volume fraction] 26.3 % Low 36.3-47.1 [facility] Comment on above: Performed By: #### B MPX, MG, CDP #### [facility] [address] [place] [phone] Collection Card Clerk: Dwain Aldana MD Hemoglobin (Bld) [Mass/Vol] 8.1 g/dL Low 11.9-15.1 [facility] Comment on above: Performed By: #### B MPX, MG, CDP #### [facility] [employer] [address] [place] [phone] Collection Card Clerk: Dwain Aldana MD Hematocrit (Bld) [Volume fraction] 24.6 % Low 36.3-47.1 [facility] Comment on above: Performed By: #### B MPX, MG, CDP #### [facility] [address] [place] [phone] Collection Card Clerk: Dwain Aldana MD Hemoglobin (Bld) [Mass/Vol] 8.5 g/dL Low 11.9-15.1 [facility] Comment on above: Performed By: #### B MG ALEKS, CDP #### [facility] [address] [place] [address] [phone] Collection Card Clerk: Dwain Aldana MD Magnesiumon 11-26-2023 Magnesium [Mass/Vol] 1.5 mg/dL Low 1.6-2.4 [facility] Comment on above: Performed By: #### B SWATHIX MG, CDP #### [facility] [address] [place] [address] [phone] Collection Card Clerk: Dwain Aldana MD Interpretation and review of laboratory results Abnormal [facility] Magnesium [Mass/Vol] 1.5 mg/dL Low 1.6 - 2 .4 mg/dL [facility] APTTon 11-25-2023 aPTT Coag (Bld) [Time] 25.5 s Normal 23.0-36.5 [facility] Comment on above: Result Comment: IV Heparin Therapy Range: 66.0-92.0 sec Performed By: #### B MG ALEKS, CDP #### [facility] [address] [place], [place] [phone] Collection Card Clerk: Dwain Aldana MD aPTT Coag (Bld) [Time] 25.5 s [facility] Comment on above: IV Heparin Therapy Range: 66.0-92.0 sec BLOOD BANK SPECIMENon 2023 [facility] Basic Metab w/rfx MGon 11-24 Anion gap [Moles/Vol] 7 mmol/L Low 9-16 [facility] Comment on above: Performed By: #### B MG ALEKS, CDP #### [facility] [address] [place] [phone] Collection Card Clerk: Dwain Aldana MD Calcium [Mass/Vol] 6.6 mg/dL Low 8.6-10.4 [facility] Comment on above: Performed By: #### B MPX, MG, CDP #### [facility] [address] [place] [phone] Collection Card Clerk: Dwain Aldana MD Chloride [Moles/Vol] 108 mmol/L High 98-107 [facility] Comment on above: Performed By: #### B MPX, MG, CDP #### [facility] [address] [place] [phone] Collection Card Clerk: Dwain Aldana MD CO2 [Moles/Vol] 23 mmol/L Normal 20-31 [facility] Comment on above: Performed By: #### B MPX, MG, CDP #### [facility] [address] [place] [phone] Collection Card Clerk: Dwain Aldana MD Creatinine [Mass/Vol] 0.4 mg/dL Low 0.50-0.90 [facility] Comment on above: Performed By: #### B MPX, MG, CDP #### [facility] [address] [place] [phone] Collection Card Clerk: Dwain Aldana MD GFR/1.73 sq M.predicted among non-blacks MDRD (S/P/Bld) [Vol rate/Area] mL/min/{1.73_m2} Normal >60 [facility] Comment on above: Result Comment: These [...] B MPX, MG, CDP #### [facility] [address] [place] [phone] Collection Card Clerk: Dwain Aldana MD Glucose [Mass/Vol] 81 mg/dL Normal 74-99 [facility] Comment on above: Performed By: #### B MPX, MG, CDP #### [facility] [address] [place] [address] Collection Card Clerk: Dwain Aldana MD Potassium [Moles/Vol] 3.6 mmol/L Low 3.7-5.3 [facility] Comment on above: Performed By: #### B MPX, MG, CDP #### [facility] [address] [place] [address] Collection Card Clerk: Dwain Aldana MD Sodium [Moles/Vol] 138 mmol/L Normal 136-145 [facility] Comment on above: Performed By: #### B MPX, MG, CDP #### [facility] [address] [place] [address] Collection Card Clerk: Dwain Aldana MD Urea nitrogen [Mass/Vol] 13 mg/dL Normal 8-23 [facility] Comment on above: Performed By: #### B MPX, MG, CDP #### [facility] [address] [place] [address] Collection Card Clerk: Dwain Aldana MD Basic Metabolic Panel w/ Ref merlnee to [facility] 11-25-2023 Anion gap [Moles/Vol] 7 mmol/L Low 9 - 16 mmol/L [facility] [employer] Calcium [Mass/Vol] 6.6 mg/dL Low 8.6 - 10. 4 mg/dL [facility] [employer] Chloride [Moles/Vol] 108 mmol/L High 98 - 10 7 mmol/L [facility] [employer] CO2 [Moles/Vol] 23 mmol/L 20 - 31 mmol/L [facility] Creatinine [Mass/Vol] 0.4 mg/dL Low 0.50 - 0.90 mg/dL [facility] [employer] EstLake Rate - [facility] Comment on above: These results [...] [Mass/Vol] 81 mg/dL 74 - 99 mg/dL [facility] Interpretation and review of laboratory results Abnormal [facility] Potassium [Moles/Vol] 3.6 mmol/L Low 3.7 - 5.3 mmol/L [facility] Sodium [Moles/Vol] 138 mmol/L 136 - 145 mmol/L [facility] Urea nitrogen [Mass/Vol] 13 mg/dL 8 - 23 mg/dL [facility] CBC with Auto Differentialon 11-25-2023 Basophils (Bld) [#/Vol] 0.03 10*3/uL [facility] Basophils/100 WBC (Bld) 0 % 0 - 2 % [facility] Eosinophils (Bld) [#/Vol] 0.05 10*3/uL [facility] Eosinophils/100 WBC (Bld) 1 % 1 - 4 % [facility] Erythrocyte distribution width (RBC) [Ratio] 19.9 % High 11.8 - 14.4 % [facility] Hematocrit (Bld) [Volume fraction] 19.9 % Low 36.3 - 47.1 % [facility] Hemoglobin (Bld) [Mass/Vol] 5.8 g/dL Critically low 11.9 - 15.1 g/dL [facility] Immature granulocytes (Bld) [#/Vol] 0.06 10*3/uL [facility] Immature granulocytes/100 WBC (Bld) 1 % High 0 [facility] Interpretation and review of laboratory results Abnormal [facility] Lymphocytes/100 WBC (Bld) 18 % Low 24 - 43 % [facility] Lymphocytes/100 WBC (Bld) 1.67 % [facility] MCH (RBC) [Entitic mass] 29.7 pg 25.2 - 33.5 pg [facility] MCHC (RBC) [Mass/Vol] 29.1 g/dL 28.4 - 34.8 g/dL [facility] MCV (RBC) [Entitic vol] 102.1 fL 82.6 - 102.9 fL [facility] Monocytes/100 WBC (Bld) 8 % 3 - 12 % [facility] Monocytes/100 WBC (Bld) 0.72 % [facility] Neutrophils/100 WBC (Bld) 73 % High 36 - 65 % [facility] Nucleated RBC/100 WBC (Bld) [Ratio] 0.0 % 0.0 per 100 WBC [email or web address] [facility]ITALZiqitza [facility] Platelet mean volume (Bld) [Entitic vol] 11.5 fL 8.1 - 13.5 fL [facility] Platelets (Bld) [#/Vol] 186 10*3/uL [facility] RBC (Bld) [#/Vol] 1.95 10*6/uL Low 3.95 - 5.11 m/uL [facility] RBC (Bld) [#/Vol] ANISOCYTOSIS PRESENT [email or web address] [facility] [employer] Segmented neutrophils/100 WBC (Bld) 6.93 % [email or web address] [facility] [employer] WBC other (Bld) [#/Vol] 9.5 [email or web address] [facility] [email or web address] [email or web address] [email or web address] [facility] CBC with Diffon 11-25-2023 Abs. Basophil 0.03 k/uL Normal 0.00-0.20 [facility] Comment on above: Performed By: #### B MPX, MG, CDP #### [facility] [address] [place], [place] [phone] Collection Card Clerk: Dwain Aldana MD Abs.Imm.Granulocyte 0.06 k/uL Normal 0.00-0.30 [facility] Comment on above: Performed By: #### B MPX, MG, CDP #### [facility] [address] [place] [address] Collection Card Clerk: Dwain Aldana MD Abs.Neutrophil (Seg) 6.93 k/uL Normal 1.50-8.10 [facility] Comment on above: Performed By: #### B MPX, MG, CDP #### [facility] [address] [place] [phone] Collection Card Clerk: Dwain Aldana MD Basophils/100 WBC (Bld) 0 % Normal 0-2 [facility] Comment on above: Performed By: #### B MPX, MG, CDP #### [facility] [address] [address] Collection Card Clerk: Dwain Aldana MD Eosinophils (Bld) [#/Vol] 0.05 10*3/uL Normal 0.00-0.44 [facility] Comment on above: Performed By: #### B MPX, MG, CDP #### [address] [address] Collection Card Clerk: Dwain Aldana MD Eosinophils/100 WBC (Bld) 1 % Normal 1-4 [facility] Comment on above: Performed By: #### B MPX, MG, CDP #### [address] [address] Collection Card Clerk: Dwain Aldana MD Erythrocyte distribution width (RBC) [Ratio] 19.9 % High 11.8-14.4 [facility] Comment on above: Performed By: #### B MPX, MG, CDP #### [facility] [facility] [address] [place] [phone] Collection Card Clerk: Dwain Aldana MD Hematocrit (Bld) [Volume fraction] 19.9 % Low 36.3-47.1 [facility] Comment on above: Performed By: #### B MPX, MG, CDP #### [facility] [address] [place] [address] Collection Card Clerk: Dwain Aldana MD Hemoglobin (Bld) [Mass/Vol] 5.8 g/dL Critically low 11.9-15.1 [facility] Comment on above: Performed By: #### B MPX, MG, CDP #### [facility] [employer] [address] [place] [phone] Collection Card Clerk: Dwain Aldana MD Immature granulocytes/100 WBC (Bld) 1 % High 0 [facility] Comment on above: Performed By: #### B MPX, MG, CDP #### [facility] [address] [place] [phone] Collection Card Clerk: Dwain Aldana MD Lymphocytes (Bld) [#/Vol] 1.67 10*3/uL Normal 1.10-3.70 [facility] Comment on above: Performed By: #### B MPX, MG, CDP #### [facility] [address] [place] [phone] Collection Card Clerk: Dwain Aldana MD Lymphocytes/100 WBC (Bld) 18 % Low 24-43 [facility] Comment on above: Performed By: #### B MPX, MG, CDP #### [facility] [employer] [address] [place] [phone] Collection Card Clerk: Dwain Aldana MD MCH (RBC) [Entitic mass] 29.7 pg Normal 25.2-33.5 [facility] Comment on above: Performed By: #### B MPX, MG, CDP #### [facility] [address] [place] [phone] Collection Card Clerk: Dwain Aldana MD MCHC (RBC) [Mass/Vol] 29.1 g/dL Normal 28.4-34.8 [facility] Comment on above: Performed By: #### B MPX, MG, CDP #### [facility] [address] [place] [phone] Collection Card Clerk: Dwain Aldana MD MCV (RBC) [Entitic vol] 102.1 fL Normal 82.6-102.9 [facility] Comment on above: Performed By: #### B MPX, MG, CDP #### [facility] [address] [place] [phone] Collection Card Clerk: Dwain Aldana MD Monocytes (Bld) [#/Vol] 0.72 10*3/uL Normal 0.10-1.20 [facility] Comment on above: Performed By: #### B MPX, MG, CDP #### [facility] [address] [place] [id number] Collection Card Clerk: Dwain Aldana MD Monocytes/100 WBC (Bld) 8 % Normal 3-12 [facility] Comment on above: Performed By: #### B MPX, MG, CDP #### [facility] [address] [place] [phone] Collection Card Clerk: Dwain Aldana MD Neutrophil (Seg) 73 % High 36-65 [facility] Comment on above: Performed By: #### B MPX, MG, CDP #### [facility] [address] [place] [phone] Collection Card Clerk: Dwain Aldana MD NRBC Automated 0.0 per 100 WBC Normal 0.0 [facility] Comment on above: Performed By: #### B MPX, MG, CDP #### [facility] [address] [place] [phone] Collection Card Clerk: Dwain Aldana MD Platelet mean volume (Bld) [Entitic vol] 11.5 fL Normal 8.1-13.5 [facility] Comment on above: Performed By: #### B MPX, MG, CDP #### [facility] [address] [place] [phone] Collection Card Clerk: Dwain Aldana MD Platelets (Bld) [#/Vol] 186 10*3/uL Normal 138-453 [facility] Comment on above: Performed By: #### B MPX, MG, CDP #### [facility] [address] [place] [id number] Collection Card Clerk: Dwain Aldana MD RBC (Bld) [#/Vol] 1.95 10*6/uL Low 3.95-5.11 [facility] Comment on above: Performed By: #### B MPX, MG, CDP #### [facility] [address] [place] [address] Collection Card Clerk: Dwain Aldana MD RBC morphology finding Nom (Bld) ANISOCYTOSIS PRESENT Normal [facility] Comment on above: Performed By: #### B MPX, MG, CDP #### [facility] [address] [place] [address] Collection Card Clerk: Dwain Aldana MD WBC (Bld) [#/Vol] 9.5 10*3/uL Normal 3.5-11.3 [facility] Comment on above: Performed By: #### B MPX, MG, CDP #### [facility] [address] [place] [address] Collection Card Clerk: Dwain Aldana MD CTA ABDOMEN PELVIS W WO CONT RASTon 11-25-2023 CTA ABDOMEN PELVIS W WO CONTRAST [...] Smith Hahn MD 11/25/23 Final result Normal [facility] CTA Abdominal vessels and Pe lvis [...] fat containing umbilical hernia. 7. Diffuse anasarca. [facility] RIS CONSOLIDATED EXAMINATION: CTA OF THE ABDOMEN [...] visualized spine . No acute bony abnormalities. PN RIS CONSOLIDATED Smith Hahn MD - 11/25/2023 [...] fat containing umbilical hernia. 7. Diffuse anasarca. [facility] Radiology Study observation (narrative) [facility] CTA Abdominal vessels and Pe lvis vessels WO and W contrast IVOrdered By: Smith Hahn on 11-25-2023 [facility] Work Phone: Hemoglobin and Hematocriton 11-25-2023 Hematocrit (Bld) [Volume fraction] 24.6 % Low 36.3 - 47.1 % [facility] Hemoglobin (Bld) [Mass/Vol] 8.5 g/dL Low 11.9 - 15.1 g/dL [facility] Interpretation and review of laboratory results Abnormal [facility] Hematocrit (Bld) [Volume fraction] 28.6 % Low 36.3 - 47.1 % [facility] Hemoglobin (Bld) [Mass/Vol] 9.2 g/dL Low 11.9 - 15.1 g/dL [facility] Interpretation and review of laboratory results Abnormal [facility] Hematocrit (Bld) [Volume fraction] 20.3 % Low 36.3 - 47.1 % [facility] Hemoglobin (Bld) [Mass/Vol] 6.6 g/dL Critically low 11.9 - 15.1 g/dL [facility] Interpretation and review of laboratory results Abnormal [facility] Hgb/Hcton 11-25-2023 Hematocrit (Bld) [Volume fraction] 28.6 % Low 36.3-47.1 [facility] Comment on above: Performed By: #### B MPX, MG, CDP #### [facility] [address] [place] [address] [phone] Collection Card Clerk: Dwain Aldana MD Hemoglobin (Bld) [Mass/Vol] 9.2 g/dL Low 11.9-15.1 [facility] Comment on above: Performed By: #### B MPX, MG, CDP #### [facility] [address] [place] [address] [phone] Collection Card Clerk: Dwain Aldana MD Hematocrit (Bld) [Volume fraction] 30.2 % Low 36.3-47.1 [facility] Comment on above: Performed By: #### B MPX, MG, CDP #### [facility] [address] [place] [address] [phone] Collection Card Clerk: Dwain Aldana MD Hemoglobin (Bld) [Mass/Vol] 9.0 g/dL Low 11.9-15.1 [facility] Comment on above: Performed By: #### B MPX, MG, CDP #### [facility] [address] [place] [address] [phone] Collection Card Clerk: Dwain Aldana MD Hematocrit (Bld) [Volume fraction] 20.3 % Low 36.3-47.1 [facility] Comment on above: Performed By: #### B MPX, MG, CDP #### [facility] [address] [place] [address] Collection Card Clerk: Dwain Aldana MD Hemoglobin (Bld) [Mass/Vol] 6.6 g/dL Critically low 11.9-15.1 [facility] Comment on above: Performed By: #### B MPX, MG, CDP #### [facility] [place] [address] Collection Card Clerk: Dwain Aldana MD Iron Binding Cap.on 11-25-19 24 % Fe Saturation 39 % Normal 20-55 [facility] Comment on above: Performed By: #### B MPX, MG, CDP #### [facility] [address] [place] [address] [phone] Collection Card Clerk: Dwain Aldana MD Iron [Mass/Vol] 80 ug/dL Normal 37-145 [facility] Comment on above: Performed By: #### B MPX, MG, CDP #### [facility] [address] [place] [address] [phone] Collection Card Clerk: Dwain Aldana MD Total Fe Binding Cap 205 ug/dL Low 250-450 [facility] Comment on above: Performed By: #### B MPX, MG, CDP #### [facility] [address] [place] [address] [phone] Collection Card Clerk: Dwain Aldana MD Unbound Fe Bind Cap 125 ug/dL Normal 112-347 [facility] Comment on above: Performed By: #### B MPX, MG, CDP #### [facility] [address] [place] [address] [phone] Collection Card Clerk: Dwain Aldana MD Iron and TIBCon 11-25-2023 Interpretation and review of laboratory results Abnormal [facility] Iron [Mass/Vol] 80 ug/dL 37 - 145 ug/dL [facility] Iron binding capacity [Mass/Vol] 205 ug/dL Low 250 - 450 ug/dL [facility] Iron saturation [Mass fraction] 39 % 20 - 55 % [facility] UIBC 125 ug/dL 112 - 347 ug/dL [facility] Lactate, Sepsison 11-25-2023 Lactic Acid,Sep Wbld 0.9 mmol/L Normal 0.5-1.9 [facility] Comment on above: Performed By: #### H H #### [facility] [address] [place] [address] [phone] Collection Card Clerk: Dwain Aldana MD Lactic Acid, Sepsis, Whole Blood 0.9 mmol/L 0.5 - 1.9 mmol/L [facility] Lactic Acid,Sep Wbld 0.6 mmol/L Normal 0.5-1.9 [facility] Comment on above: Performed By: #### T SHX, PRCAL #### [facility] [address] [place] [address] [phone] Collection Card Clerk: Dwain Aldana MD Lactic Acid, Sepsis, Whole Blood 0.6 mmol/L 0.5 - 1.9 mmol/L [facility] Lactic Acid,Sep Wbld 0.7 mmol/L Normal 0.5-1.9 [facility] Comment on above: Performed By: #### B MPX MG, CDP #### [facility] [address] [place] [address] [phone] Collection Card Clerk: Dwain Aldana MD Lactic Acid, Sepsis, Whole Blood 0.7 mmol/L 0.5 - 1.9 mmol/L [facility] No Panel Informationon 11-24 [facility] PTon 11-25-2023 INR Coag (PPP) [Relative time] 1.2 {INR} Normal [facility] Comment on above: Result Comment: Therapeutic Range: Moderate Anticoagulant Intensity: INR = 2.0-3.0 High Anticoagulant Intensity: INR = 2.5-3.5 Performed By: #### B SWATHIX MG, CDP #### [facility] [address] [place] [address], [place] [address] Collection Card Clerk: Dwain Aldana MD PT Coag (PPP) [Time] 15.5 s High 11.7-14.9 [facility] Comment on above: Performed By: #### B MPX, MG, CDP #### [facility] [place] [address] Collection Card Clerk: Dwain Aldana MD Portable XR Chest AP single viewon 11-25-2023 Layering right great er than left pleural effusions and bibasilar atelectasis. [facility] CONSOLIDATED EXAMINATION: ONE XRAY VIEW OF THE [...] pleural effusions. Bones: No acute osseous abnormality. [facility] CONSOLIDATED Keaton Montilla MD - 11/25/2023 EXAMINATION: ONE XRAY VIEW [...] than left pleural effusions and bibasilar atelectasis. [facility] Study observation (narrative) [facility] Portable XR Chest AP single viewOrdered By: Keaton Montilla on 11-25-2023 [facility] Work Phone: [facility]Ron 11-25-2023 INR Coag (PPP) [Relative time] 1.2 {INR} [facility] Comment on above: Therapeutic Range: Moderate Anticoagulant Intensity: INR = 2.0-3.0 High Anticoagulant Intensity: INR = 2.5-3.5 Interpretation and review of laboratory results Abnormal [facility] PT Coag (PPP) [Time] 15.5 s High [facility] XR CHEST PORTABLEon 11-25-19 XR CHEST PORTABLE EXAMINATION: ONE XRAY VIEW [...] Keaton Montilla MD 11/25/23 Final result Normal [facility] Erythrocyte distribution wid th Auto (RBC) [Ratio]Ordered By: Frantz Nieves on 11-21-2023 Erythrocyte distribution width (RBC) [Ratio] 16.3 % 11.9-15.3 [facility] Ferritinon 11-21-2023 Ferritin [Mass/Vol] 40.6 ng/mL Normal 11.0-306.8 [facility] Comment on above: Result Comment: PERF ORMED BY: [place] [address] PATHOLOGIST PURCHASING INTERN EVY GARCIA M.D. Performed By: #### C BCRONEY, MG #### [address] Ferritin [Mass/volume] in Se rum or PlasmaOrdered By: Jaspal Whalen on 11-21-2023 Ferritin [Mass/Vol] 40.6 ng/mL 11.0-306.8 [facility] H Pylori Stool Ag, EIAon H Pylori Stool Ag, EIA Negative Normal Negative [facility] Comment on above: Order Comment: SOURC E OF SPECIMEN: stool Result Comment: Perf ormed at: - [facility] [id number] Collection Card Clerk: Jonny Guzman PhD, Phone: [phone] PERFORMED BY: [place] [address] PATHOLOGIST PURCHASING INTERN EVY GARCIA M.D. Performed By: #### C BCNO, MG #### [address] Hematocrit Auto (Bld) [Volum e fraction]Ordered By: Frantz Nieves on 11-21-2023 Hematocrit (Bld) [Volume fraction] 27.4 % 34.0-46.4 [facility] Hemoglobin [Mass/volume] in BloodOrdered By: Frantz Nieves on 11-21-2023 Hemoglobin (Bld) [Mass/Vol] 9.2 g/dL 11.8-15.4 [facility] Hemogram CBC Without Diffon 11-21-2023 Erythrocyte distribution width (RBC) [Ratio] 16.3 % High 11.9-15.3 [facility] Comment on above: Performed By: #### C BCNO #### [address] Hematocrit (Bld) [Volume fraction] 27.4 % Low 34.0-46.4 [facility] Comment on above: Performed By: #### C BCNO #### [address] Hemoglobin (Bld) [Mass/Vol] 9.2 g/dL Low 11.8-15.4 [facility] Comment on above: Performed By: #### C BCNO #### [address] MCH (RBC) [Entitic mass] 31.3 pg Normal 24.7-34.3 [facility] Comment on above: Performed By: #### C BCNO #### [address] MCV (RBC) [Entitic vol] 93.2 fL Normal 80-100 [facility] Comment on above: Performed By: #### C BCNO #### [address] Mean Corpuscular HGB Conc 33.6 g/dL Normal 32.0-35.0 [facility] Comment on above: Performed By: #### C BCNO #### [address] Platelet mean volume (Bld) [Entitic vol] 7.7 fL Normal 6.3-10.7 [facility] Comment on above: Result Comment: PERF ORMED BY: [place] [address] PATHOLOGIST PURCHASING INTERN EVY GARCIA M.D. Performed By: #### C BCNO #### [address] Platelets (Bld) [#/Vol] 377 10*3/uL Normal 150-450 [facility] Comment on above: Performed By: #### C BCNO #### [address] RBC (Bld) [#/Vol] 2.94 10*6/uL Low 3.60-5.00 [facility] Comment on above: Performed By: #### C BCNO #### [address] WBC (Bld) [#/Vol] 8.8 10*3/uL Normal 3.8-11.6 [facility] Comment on above: Performed By: #### C BCNO #### [address] Iron [Mass/volume] in Serum or PlasmaOrdered By: Jaspal Whalen on 11-21-2023 Iron [Mass/Vol] 20 ug/dL 50-212 [facility] Iron and TIBC Profileon 10-26 % Iron Saturation 6.0 % Low 20-50 [facility] Comment on above: Performed By: #### C BCNO, MG #### [address] Iron [Mass/Vol] 20 ug/dL Low 50-212 [facility] Comment on above: Performed By: #### C BCNO, MG #### [facility] [address] [place] [address] [facility] Total Iron Binding Capacity 333 ug/dL Normal 255-450 [facility] Comment on above: Performed By: #### C BCNO, MG #### [facility] [address] [place] [address] [place] Transferrin [Mass/Vol] 238 mg/dL Normal 203-362 [facility] Comment on above: Performed By: #### C BCNO, MG #### [facility] [address] [place] [address] [facility] Iron binding capacity [Mass/ volume] in Serum or PlasmaOrdered By: Jaspal Whalen on 11-21-2023 Iron binding capacity [Mass/Vol] 333 ug/dL 255-450 [facility] Iron saturation [Mass Fracti on] in Serum or PlasmaOrdered By: Jaspal Whalen on 11-21-2023 Iron saturation [Mass fraction] 6.0 % 20-50 [facility] Leukocytes [#/volume] correc dalton for nucleated erythrocytes in Blood by Automated counOrdered By: Frantz Nieves on 11-21-2023 WBC corrected for nucl RBC Auto (Bld) [#/Vol] 8.8 10*3/uL 3.8-11.6 [facility] MCH Auto (RBC) [Entitic mass ]Ordered By: Frantz Nieves on 11-21-2023 MCH (RBC) [Entitic mass] 31.3 pg 24.7-34.3 [facility] MCHC Auto (RBC) [Mass/Vol]Or dered By: Frantz Nieves on 11-21-2023 MCHC (RBC) [Mass/Vol] 33.6 g/dL 32.0-35.0 [facility] MCV Auto (RBC) [Entitic vol] Ordered By: Frantz Nieves on 11-21-2023 MCV (RBC) [Entitic vol] 93.2 fL 80-100 [facility] Platelet mean volume Auto (B ld) [Entitic vol]Ordered By: Frantz Nieves on 11-21-2023 Platelet mean volume (Bld) [Entitic vol] 7.7 fL 6.3-10.7 [facility] Platelets Auto (Bld) [#/Vol] Ordered By: Frantz Nieves on 11-21-2023 Platelets (Bld) [#/Vol] 377 10*3/uL 150-450 [facility] RBC Auto (Bld) [#/Vol]Ordere d By: Frantz Nieves on 11-21-2023 RBC (Bld) [#/Vol] 2.94 10*6/uL 3.60-5.00 [facility] Transferrin [Mass/volume] in Serum or PlasmaOrdered By: Jaspal Whalen on 11-21-2023 Transferrin [Mass/Vol] 238 mg/dL 203-362 [facility] Hemoglobin and Hematocriton 11-20-2023 Hematocrit (Bld) [Volume fraction] 24.7 % Low 34.0-46.4 [facility] Comment on above: Result Comment: PERF ORMED BY: [place] [address] PATHOLOGIST PURCHASING INTERN EVY GARCIA M.D. Performed By: #### H H #### [address] Hemoglobin (Bld) [Mass/Vol] 8.4 g/dL Low 11.8-15.4 [facility] Comment on above: Performed By: #### H H #### [facility] [address] [place] [address] Hemogram CBC Without Diffon 11-20-2023 Erythrocyte distribution width (RBC) [Ratio] 16.5 % High 11.9-15.3 [facility] Comment on above: Performed By: #### C BCNO, MG #### [address] Hematocrit (Bld) [Volume fraction] 23.7 % Low 34.0-46.4 [facility] Comment on above: Performed By: #### C BCNO, MG #### [place] [address] [place] Hemoglobin (Bld) [Mass/Vol] 8.1 g/dL Low 11.8-15.4 [facility] Comment on above: Performed By: #### C BCNO, MG #### [address] MCH (RBC) [Entitic mass] 31.7 pg Normal 24.7-34.3 [facility] Comment on above: Performed By: #### C BCNO, MG #### [address] MCV (RBC) [Entitic vol] 92.5 fL Normal 80-100 [facility] Comment on above: Performed By: #### C BCNO, MG #### [address] Mean Corpuscular HGB Conc 34.2 g/dL Normal 32.0-35.0 [facility] Comment on above: Performed By: #### C BCNO, MG #### [address] Platelet mean volume (Bld) [Entitic vol] 7.8 fL Normal 6.3-10.7 [facility] Comment on above: Result Comment: PERF ORMED BY: [place] [address] PATHOLOGIST PURCHASING INTERN EVY GARCIA M.D. Performed By: #### C BCNO, MG #### [address] Platelets (Bld) [#/Vol] 279 10*3/uL Normal 150-450 [facility] Comment on above: Performed By: #### C BCNO, MG #### [address] RBC (Bld) [#/Vol] 2.56 10*6/uL Low 3.60-5.00 [facility] Comment on above: Performed By: #### C BCNO, MG #### [address] WBC (Bld) [#/Vol] 9.2 10*3/uL Normal 3.8-11.6 [facility] Comment on above: Performed By: #### C BCNO, MG #### [address] Magnesiumon 11-20-2023 Magnesium [Mass/Vol] 1.7 mg/dL Low 1.9-2.7 [facility] Comment on above: Result Comment: PERF ORMED BY: [place] [address] PATHOLOGIST PURCHASING INTERN EVY GARCIA M.D. Performed By: #### C BCNO, MG #### [address] Magnesium [Mass/volume] in S staci or PlasmaOrdered By: Frantz Nieves on 11-20-2023 Magnesium [Mass/Vol] 1.7 mg/dL 1.9-2.7 [facility] Basic Metabolic Panelon 10-26 Anion gap [Moles/Vol] 6.7 mmol/L Normal 6.0-15.0 [facility] Comment on above: Performed By: #### C BCNO, MG #### [address] Calcium [Mass/Vol] 6.6 mg/dL Low 8.6-10.3 [facility] Comment on above: Performed By: #### C BCNO, MG #### [address] Chloride [Moles/Vol] 111 mmol/L High 98-107 [facility] Comment on above: Performed By: #### C BCNO, MG #### [address] CO2 [Moles/Vol] 24.0 mmol/L Normal 21.0-31.0 [facility] Comment on above: Performed By: #### C BCNO, MG #### [address] Creatinine [Mass/Vol] 0.40 mg/dL Low 0.60-1.20 [facility] Comment on above: Performed By: #### C BCNO, MG #### [facility] [address] [place] [address] [place] Creatinine Clr Calc Pharmacy 50.26 Normal [facility] Comment on above: Performed By: #### C BCNO, MG #### [facility] [address] [place] [address] [place] GFR/1.73 sq M.predicted MDRD (S/P/Bld) [Vol rate/Area] mL/min/{1.73_m2} Normal [facility] Comment on above: Performed By: #### C BCNO, MG #### [facility] [address] Glucose [Mass/Vol] 88 mg/dL Normal 70-100 [facility] Comment on above: Result Comment: [facility] [place][note 2] Glucose Reference Range is dependent on time and content of last meal. Glucose of more than 200 mg/dL in a nonstressed, ambulatory subject supports the diagnosis of Diabetes Mellitus. ADA recommended reference range Performed By: #### C BCNO, MG #### [facility] [address] [place] [address] [place] Potassium [Moles/Vol] 3.7 mmol/L Normal 3.5-5.1 [facility] Comment on above: Performed By: #### C BCNO, MG #### [facility] [address] [place] [address] [place] Sodium [Moles/Vol] 138 mmol/L Normal 136-145 [facility] Comment on above: Performed By: #### C BCNO, MG #### [facility] [address] [place] [address] [place] Urea nitrogen [Mass/Vol] 15 mg/dL Normal 7-25 [facility] Comment on above: Performed By: #### C BCNO, MG #### [facility] [address] [place] [address] [place] Calcium [Mass/volume] in Ser um or PlasmaOrdered By: Frantz Nieves on 04-25-2024 Calcium [Mass/Vol] 6.6 mg/dL 8.6-10.3 [facility] Carbon dioxide, total [Moles /volume] in Serum or PlasmaOrdered By: Frantz Nieves on 11-19-2023 CO2 [Moles/Vol] 24.0 mmol/L 21.0-31.0 [facility] Chloride [Moles/volume] in S staci or PlasmaOrdered By: Frantz Nieves on 11-19-2023 Chloride [Moles/Vol] 111 mmol/L 98-107 [facility] Creatinine [Mass/volume] in Serum or PlasmaOrdered By: Frantz Nieves on 11-19-2023 Creatinine [Mass/Vol] 0.40 mg/dL 0.60-1.20 [facility] Glucose [Mass/volume] in Ser um or PlasmaOrdered By: Frantz Nieves on 11-19-2023 Glucose [Mass/Vol] 88 mg/dL 70-100 [facility] Comment on above: ADA recommended refe rence rangeRandom Glucose Reference Range is dependent on time and content of last meal. Glucose of more than 200 mg/dL in a nonstressed, ambulatory subject supports the diagnosis of Diabetes Mellitus. Hemoglobin and Hematocriton 11-19-2023 Hematocrit (Bld) [Volume fraction] 26.7 % Low 34.0-46.4 [facility] Comment on above: Result Comment: PERF ORMED BY: [place] [address] PATHOLOGIST PURCHASING INTERN EVY GARCIA M.D. Performed By: #### C JENNA MG #### [facility] [address] Hemoglobin (Bld) [Mass/Vol] 9.1 g/dL Significant change down 11.8-15.4 [facility] Comment on above: Performed By: #### C JENNA, MG #### [facility] [address] Hematocrit (Bld) [Volume fraction] 19.0 % Off scale low 34.0-46.4 [facility] Comment on above: Result Comment: Crit ical value result called at 1124 on 11/19/23 PERFORMED BY: [place] [address] PATHOLOGIST PURCHASING INTERN EVY GARCIA M.D. Performed By: #### C BCNO, MG #### [address] Hemoglobin (Bld) [Mass/Vol] 6.5 g/dL Low 11.8-15.4 [facility] Comment on above: Performed By: #### C BCNO, MG #### [address] Hematocrit (Bld) [Volume fraction] 22.1 % Low 34.0-46.4 [facility] Comment on above: Result Comment: PERF ORMED BY: [place] [address] PATHOLOGIST PURCHASING INTERN EVY GARCIA M.D. Performed By: #### C BCNO, MG #### [address] Hemoglobin (Bld) [Mass/Vol] 7.5 g/dL Low 11.8-15.4 [facility] Comment on above: Performed By: #### C BCNO, MG #### [address] Hemogram CBC Without Diffon 11-19-2023 Erythrocyte distribution width (RBC) [Ratio] 16.2 % High 11.9-15.3 [facility] Comment on above: Performed By: #### C BCNO, MG #### [address] Hematocrit (Bld) [Volume fraction] 20.5 % Low 34.0-46.4 [facility] Comment on above: Performed By: #### C BCNO, MG #### [address] Hemoglobin (Bld) [Mass/Vol] 7.1 g/dL Low 11.8-15.4 [facility] Comment on above: Performed By: #### C BCNO, MG #### [address] MCH (RBC) [Entitic mass] 31.8 pg Normal 24.7-34.3 [facility] Comment on above: Performed By: #### C BCNO, MG #### [address] MCV (RBC) [Entitic vol] 92.0 fL Normal 80-100 [facility] Comment on above: Performed By: #### C BCNO, MG #### [address] Mean Corpuscular HGB Conc 34.6 g/dL Normal 32.0-35.0 [facility] Comment on above: Performed By: #### C BCNO, MG #### [address] Platelet mean volume (Bld) [Entitic vol] 7.5 fL Normal 6.3-10.7 [facility] Comment on above: Result Comment: PERF ORMED BY: [place] [address] PATHOLOGIST PURCHASING INTERN EVY GARCIA M.D. Performed By: #### C BCNO, MG #### [address] Platelets (Bld) [#/Vol] 247 10*3/uL Normal 150-450 [facility] Comment on above: Performed By: #### C BCNO, MG #### [address] RBC (Bld) [#/Vol] 2.23 10*6/uL Low 3.60-5.00 [facility] Comment on above: Performed By: #### C BCNO, MG #### [address] WBC (Bld) [#/Vol] 10.1 10*3/uL Normal 3.8-11.6 [facility] Comment on above: Performed By: #### C BCNO, MG #### [facility] [address] [place] [id number] [place] Magnesiumon 11-19-2023 Magnesium [Mass/Vol] 2.0 mg/dL Normal 1.9-2.7 [facility] Comment on above: Result Comment: PERF ORMED BY: [place] [address] PATHOLOGIST PURCHASING INTERN EVY GARCIA M.D. Performed By: #### C BCNO, MG #### [facility] [address] [id number] [facility] No Panel InformationOrdered By: Frantz Nieves on 11-19-2023 Estimated GFR (CKD-EPI) > 60.0 mL/Min [facility] Creatinine Clearance (Chem 50.26 [facility] Potassium [Moles/volume] in Serum or PlasmaOrdered By: Frantz Nieves on 11-19-2023 Potassium [Moles/Vol] 3.7 mmol/L 3.5-5.1 [facility] Serum or plasma anion gap de terminationOrdered By: Frantz Nieves on 11-19-2023 Anion gap [Moles/Vol] 6.7 mmol/L 6.0-15.0 [facility] Sodium [Moles/volume] in Ser um or PlasmaOrdered By: Frantz Nieves on 11-19-2023 Sodium [Moles/Vol] 138 mmol/L 136-145 [facility] Urea nitrogen [Mass/volume] in Serum or PlasmaOrdered By: Frantz Nieves on 11-19-2023 Urea nitrogen [Mass/Vol] 15 mg/dL 02-17 [facility] ABO/Rh Retypeon 11-18-2023 ABO/RH Recheck Result Positive Normal [facility] Comment on above: Result Comment: PERF ORMED BY: [place] [id number] PATHOLOGIST PURCHASING INTERN EVY GARCIA M.D. Alanine aminotransferase [En zymatic activity/volume] in Serum or PlasmaOrdered By: Dale Mckeon on 11-18-2023 ALT [Catalytic activity/Vol] 14 U/L [facility] Albumin [Mass/volume] in Ser um or Plasma by Bromocresol green (BCG) dye binding methoOrdered By: Dale Mckeon on 11-18-2023 Albumin BCG dye [Mass/Vol] 2.4 g/dL 3.5-5.7 [facility] Alkaline phosphatase [Enzyma tic activity/volume] in Serum or PlasmaOrdered By: Dale Mckeon on 11-18-2023 ALP [Catalytic activity/Vol] 44 U/L 34-104 [facility] Aspartate aminotransferase [ Enzymatic activity/volume] in Serum or PlasmaOrdered By: Dale Mckeon on 11-18-2023 AST [Catalytic activity/Vol] 17 U/L 13-39 [facility] Basophils Auto (Bld) [#/Vol] Ordered By: Dale Mckeon on 11-18-2023 Basophils (Bld) [#/Vol] N/A [facility] Basophils/100 WBC Auto (Bld) Ordered By: Dale Mckeon on 11-18-2023 Basophils/100 WBC (Bld) N/A [facility] Bilirubin.total [Mass/volume ] in Serum or PlasmaOrdered By: Dale Mckeon on 11-18-2023 Bilirubin [Mass/Vol] 0.3 mg/dL 0.3-1.0 [facility] Comprehensive Metabolic Pane will 11-18-2023 Albumin [Mass/Vol] 2.4 g/dL Low 3.5-5.7 [facility] Comment on above: Performed By: #### M G, TSH3, CMP, DIFF CBC, T4F #### [facility] [address] Albumin/Globulin [Mass ratio] 1.6 {ratio} Normal [facility] Comment on above: Performed By: #### M G, TSH3, CMP, DIFF CBC, T4F #### [facility] [address] [id number] [facility] ALP [Catalytic activity/Vol] 44 U/L Normal 34-104 [facility] Comment on above: Performed By: #### M G, TSH3, CMP, DIFF CBC, T4F #### [facility] [address] ALT [Catalytic activity/Vol] 14 U/L Normal 7-52 [facility] Comment on above: Performed By: #### M G, TSH3, CMP, DIFF CBC, T4F #### [facility] [address] Anion gap [Moles/Vol] 8.8 mmol/L Normal 6.0-15.0 [facility] Comment on above: Performed By: #### M G, TSH3, CMP, DIFF CBC, T4F #### [address] AST [Catalytic activity/Vol] 17 U/L Normal 13-39 [facility] Comment on above: Performed By: #### M G, TSH3, CMP, DIFF CBC, T4F #### [address] Bilirubin [Mass/Vol] 0.3 mg/dL Normal 0.3-1.0 [facility] Comment on above: Performed By: #### M G, TSH3, CMP, DIFF CBC, T4F #### [address] Calcium [Mass/Vol] 7.3 mg/dL Low 8.6-10.3 [facility] Comment on above: Performed By: #### M G, TSH3, CMP, DIFF CBC, T4F #### [facility] [address] [place] [address] [place] Chloride [Moles/Vol] 105 mmol/L Normal 98-107 [facility] Comment on above: Performed By: #### M G, TSH3, CMP, DIFF CBC, T4F #### [place] [address] [place] CO2 [Moles/Vol] 28.2 mmol/L Normal 21.0-31.0 [facility] Comment on above: Performed By: #### M G, TSH3, CMP, DIFF CBC, T4F #### [facility] [address] [place] [address] [place] Creatinine [Mass/Vol] 0.46 mg/dL Low 0.60-1.20 [facility] Comment on above: Performed By: #### M G, TSH3, CMP, DIFF CBC, T4F #### [facility] [address] Creatinine Clr Calc Pharmacy 50.26 Normal [facility] Comment on above: Performed By: #### M G, TSH3, CMP, DIFF CBC, T4F #### [place] [address] [place] GFR/1.73 sq M.predicted MDRD (S/P/Bld) [Vol rate/Area] mL/min/{1.73_m2} Normal [facility] Comment on above: Performed By: #### M G, TSH3, CMP, DIFF CBC, T4F #### [address] Globulin (S) [Mass/Vol] 1.5 g/dL Normal [facility] Comment on above: Performed By: #### M G, TSH3, CMP, DIFF CBC, T4F #### [address] Glucose [Mass/Vol] 93 mg/dL Normal 70-100 [facility] Comment on above: Result Comment: [facility] [place][note 2] Glucose Reference Range is dependent on time and content of last meal. Glucose of more than 200 mg/dL in a nonstressed, ambulatory subject supports the diagnosis of Diabetes Mellitus. ADA recommended reference range Performed By: #### M G, TSH3, CMP, DIFF CBC, T4F #### [address] Potassium [Moles/Vol] 4.0 mmol/L Normal 3.5-5.1 [facility] Comment on above: Performed By: #### M G, TSH3, CMP, DIFF CBC, T4F #### [address] Protein [Mass/Vol] 3.9 g/dL Low 6.4-8.9 [facility] Comment on above: Performed By: #### M G, TSH3, CMP, DIFF CBC, T4F #### [address] Sodium [Moles/Vol] 138 mmol/L Normal 136-145 [facility] Comment on above: Performed By: #### M G, TSH3, CMP, DIFF CBC, T4F #### [address] Urea nitrogen [Mass/Vol] 24 mg/dL Normal 7-25 [facility] Comment on above: Performed By: #### M G, TSH3, CMP, DIFF CBC, T4F #### [address] Diff and CBCon 11-18-2023 Erythrocyte distribution width (RBC) [Ratio] 17.2 % High 11.9-15.3 [facility] Comment on above: Performed By: #### M G, TSH3, CMP, DIFF CBC, T4F #### [address] Hematocrit (Bld) [Volume fraction] 16.0 % Off scale low 34.0-46.4 [facility] Comment on above: Result Comment: Crit ical value result called at 0759 on 11/18/23 Performed By: #### M G, TSH3, CMP, DIFF CBC, T4F #### [address] Hemoglobin (Bld) [Mass/Vol] 5.6 g/dL Low 11.8-15.4 [facility] Comment on above: Performed By: #### M G, TSH3, CMP, DIFF CBC, T4F #### [address] MCH (RBC) [Entitic mass] 32.8 pg Normal 24.7-34.3 [facility] Comment on above: Performed By: #### M G, TSH3, CMP, DIFF CBC, T4F #### [address] MCV (RBC) [Entitic vol] 93.3 fL Normal 80-100 [facility] Comment on above: Performed By: #### M G, TSH3, CMP, DIFF CBC, T4F #### [address] Mean Corpuscular HGB Conc 35.2 g/dL High 32.0-35.0 [facility] Comment on above: Performed By: #### M G, TSH3, CMP, DIFF CBC, T4F #### [facility] [address] Platelet Estimate Normal Normal Normal [facility] Comment on above: Performed By: #### M G, TSH3, CMP, DIFF CBC, T4F #### [address] Platelet mean volume (Bld) [Entitic vol] 7.8 fL Normal 6.3-10.7 [facility] Comment on above: Result Comment: PERF ORMED BY: [place] [address] PATHOLOGIST PURCHASING INTERN EVY GARCIA M.D. Performed By: #### M G, TSH3, CMP, DIFF CBC, T4F #### [address] Platelet Morphology Normal Normal Normal [facility] Comment on above: Result Comment: PERF ORMED BY: [place] [address] PATHOLOGIST PURCHASING INTERN EVY GARCIA M.D. Performed By: #### M G, TSH3, CMP, DIFF CBC, T4F #### [address] Platelets (Bld) [#/Vol] 332 10*3/uL Normal 150-450 [facility] Comment on above: Performed By: #### M G, TSH3, CMP, DIFF CBC, T4F #### [place] [address] [place] RBC (Bld) [#/Vol] 1.72 10*6/uL Low 3.60-5.00 [facility] Comment on above: Performed By: #### M G, TSH3, CMP, DIFF CBC, T4F #### [facility] [address] WBC (Bld) [#/Vol] 10.9 10*3/uL Normal 3.8-11.6 [facility] Comment on above: Performed By: #### M G, TSH3, CMP, DIFF CBC, T4F #### [facility] [address] [place] [address] [place] Eosinophils Auto (Bld) [#/Vo l]Ordered By: Dale Mckeon on 11-18-2023 Eosinophils (Bld) [#/Vol] N/A [facility] Eosinophils/100 WBC Auto (Bl d)Ordered By: Dale Mckeon on 11-18-2023 Eosinophils/100 WBC (Bld) N/A [facility] Free T4 (Free Thyroxine)on 0 11-18-2023 Free T4 [Mass/Vol] 1.10 ng/dL Normal 0.61-1.12 [facility] Comment on above: Performed By: #### C BCNO, MG #### [address] Globulin Calc (S) [Mass/Vol] Ordered By: Dale Mckeon on 11-18-2023 Globulin (S) [Mass/Vol] 1.5 g/dL [facility] Hemoglobin and Hematocriton 11-18-2023 Hematocrit (Bld) [Volume fraction] 22.2 % Low 34.0-46.4 [facility] Comment on above: Result Comment: PERF ORMED BY: [place] [address] PATHOLOGIST PURCHASING INTERN EVY GARCIA M.D. Performed By: #### C BCNO, MG #### [address] Hemoglobin (Bld) [Mass/Vol] 7.7 g/dL Low 11.8-15.4 [facility] Comment on above: Performed By: #### C BCNO, MG #### [address] LeukoReduced RBCon LeukoReduced RBC TRANSFUSED 11/18/23 1440 Normal [facility] Lymphocytes Auto (Bld) [#/Vo l]Ordered By: Dale Mckeon on 11-18-2023 Lymphocytes (Bld) [#/Vol] N/A [facility] Lymphocytes/100 WBC Auto (Bl d)Ordered By: Dale Mckeon on 11-18-2023 Lymphocytes/100 WBC (Bld) N/A [facility] Magnesiumon 11-18-2023 Magnesium [Mass/Vol] 1.6 mg/dL Low 1.9-2.7 [facility] Comment on above: Performed By: #### M G, TSH3, CMP, DIFF CBC, T4F #### [facility] [address] Monocytes Auto (Bld) [#/Vol] Ordered By: Dale Mckeon on 11-18-2023 Monocytes (Bld) [#/Vol] N/A [facility] Monocytes/100 WBC Auto (Bld) Ordered By: Dale Mckeon on 11-18-2023 Monocytes/100 WBC (Bld) N/A [facility] Neutrophils Auto (Bld) [#/Vo l]Ordered By: Dale Mckeon on 11-18-2023 Neutrophils (Bld) [#/Vol] N/A [facility] Neutrophils/100 WBC Auto (Bl d)Ordered By: Dale Mckeon on 11-18-2023 Neutrophils/100 WBC (Bld) N/A [facility] Nucleated erythrocytes [Pres ence] in Blood by Automated countOrdered By: Dale Mckeon on 11-18-2023 Nucleated RBC Auto Ql (Bld) N/A [facility] Platelet adequacy [Presence] in Blood by Light microscopyOrdered By: Dale Mckeon on 11-18-2023 Platelets LM Ql (Bld) Normal Normal [facility] Platelet morphology finding [Identifier] in BloodOrdered By: Dale Mckeon on 11-18-2023 Platelet morphology finding Nom (Bld) Normal Normal [facility] Protein [Mass/volume] in Ser um or PlasmaOrdered By: Dale Mckeon on 11-18-2023 Protein [Mass/Vol] 3.9 g/dL 6.4-8.9 [facility] RBC morphologyOrdered By: Krystina Mckeon on 11-18-2023 RBC morphology finding Nom (Bld) N/A [facility] Serum or plasma albumin/glob ulin mass ratioOrdered By: Dale Mckeon on 11-18-2023 Albumin/Globulin [Mass ratio] 1.6 {ratio} [facility] Thyroid Stimulating Hormoneo n 11-18-2023 TSH Qn 5.61 m[IU]/L High 0.45-5.33 [facility] Comment on above: Result Comment: PERF ORMED BY: [place] [address] PATHOLOGIST PURCHASING INTERN EVY GARCIA M.D. Performed By: #### C BCNO, MG #### [address] Thyrotropin [Units/volume] i n Serum or PlasmaOrdered By: Frantz Nieves on 11-18-2023 TSH Qn 5.61 m[IU]/L 0.45-5.33 [facility] Thyroxine (T4) free [Mass/vo lume] in Serum or PlasmaOrdered By: Frantz Nieves on 11-18-2023 Free T4 [Mass/Vol] 1.10 ng/dL 0.61-1.12 [facility] Type and Screenon 11-18-2023 ABO and Rh group Nom (Bld) Blood group A Rh(D) positive Normal [facility] Comment on above: Order [...] 11-18-2023 WBC (Bld) [#/Vol] 10.9 10*3/uL 3.8-11.6 [facility] Folate [Mass/volume] in Seru m or PlasmaOrdered By: Dale Mckeon on 04-23-2024 Folate [Mass/Vol] 15.0 ng/mL >5.9 [facility] Comment on above: Folate reference ran ge: >5.9 ng/mlThe WHO technical consultation on folate and vitamin [id number] has determined that folate concentrations lessthan 4 ng/ml are considered deficient. Hemoglobin and Hematocriton 11-17-2023 Hematocrit (Bld) [Volume fraction] 20.2 % Low 34.0-46.4 [facility] Comment on above: Result Comment: PERF ORMED BY: [place] [address] PATHOLOGIST PURCHASING INTERN EVY GARCIA M.D. Performed By: #### C BCNO, MG #### [address] Hemoglobin (Bld) [Mass/Vol] 6.9 g/dL Low 11.8-15.4 [facility] Comment on above: Performed By: #### C BCNO, MG #### [address] Hematocrit (Bld) [Volume fraction] 21.5 % Low 34.0-46.4 [facility] Comment on above: Result Comment: PERF ORMED BY: [place] [address] PATHOLOGIST PURCHASING INTERN EVY GARCIA M.D. Performed By: #### C BCNO, MG #### [address] Hemoglobin (Bld) [Mass/Vol] 7.3 g/dL Low 11.8-15.4 [facility] Comment on above: Performed By: #### C BCNO, MG #### [address] Vit. B12/Folate Profileon Cobalamin (Vitamin B12) [Mass/Vol] 816 pg/mL Normal 180-914 [facility] Comment on above: Performed By: #### C BCNO, MG #### [address] Folate 15.0 ng/mL Normal >5.9 [facility] Comment on above: Result Comment: Maribel te reference range: >5.9 ng/ml The WHO technical consultation on folate and vitamin b12 deficiencies has determined that folate concentrations less than 4 ng/ml are considered deficient. PERFORMED BY: [facility] [address] [id number] PATHOLOGIST PURCHASING INTERN EVY GARCIA M.D. Performed By: #### C BCNO, MG #### [address] Vitamin B12 ser/plasOrdered By: Dale Mckeon on 11-17-2023 Cobalamin (Vitamin B12) [Mass/Vol] 816 pg/mL 180-914 [facility] REVERSE T3on 08-29-2022 Reverse T3, Serum 23.1 ng/dL Normal 9.2-24.1 [facility] Comment on above: Result Comment: This test was developed and its performance characteristics determined by [employer]. It has not been cleared or approved by the Food and Drug Administration. Performed By: #### R EVRT3 #### [facility] [address] [address] [address] Jin Hodges T3, TOTAL (TRIIODOTHYRONINE) on 08-27-2022 T3, TOTAL 136 ng/dL Normal 71-180 [facility] Comment on above: Performed By: #### T 3TOTAL #### [facility] [address] [address] [address] Jin Hodges FREE T3on 08-26-2022 FREE T3 2.98 pg/mlL Normal 2.18-3.98 [facility] Comment on above: Performed By: #### F T3, TSH #### [facility] [address] [address] [address] Jin Hodges FREE T4on 08-26-2022 Free T4 [Mass/Vol] 0.81 ng/dL Normal 0.76-1.46 [facility] Comment on above: Performed By: #### F T4 #### [facility] [address] [address] [address] Jin Hodges TSHon 08-26-2022 TSH 0.561 uIU/mL Normal 0.358-3.74 0 [facility] Comment on above: Performed By: #### F T3, TSH #### [facility] [address] [place] [address] Dr. Jin Hodges REVERSE T3on 03-05-2022 Reverse T3, Serum 21.3 ng/dL Normal 9.2-24.1 [facility] Comment on above: Result Comment: This test was developed and its performance characteristics determined by [employer]. It has not been cleared or approved by the Food and Drug Administration. Performed By: #### R EVRT3 #### [facility] [address] [place] [address] Dr. Jin Hodges T3, TOTAL (TRIIODOTHYRONINE) on 03-01-2022 T3, TOTAL 123 ng/dL Normal 71-180 [facility] Comment on above: Performed By: #### T 3TOTAL #### [facility] [address] [place] [address] Dr. Jin Hodges FREE T3on 02-28-2022 FREE T3 3.10 pg/mlL Normal 2.18-3.98 [facility] Comment on above: Performed By: #### T SH, FT3 #### [facility] [address] [place] [address] Dr. Jin Hodges FREE T4on 02-28-2022 Free T4 [Mass/Vol] 0.92 ng/dL Normal 0.76-1.46 [facility] Comment on above: Performed By: #### F T4 #### [facility] [address] [place] [address] Dr. Jin Hodges TSHon 02-28-2022 TSH 0.133 uIU/mL Critically low 0.358-3.74 0 [facility] Comment on above: Performed By: #### T SH, FT3 #### [facility] [address] [place] [address] Dr. Jni Hodges Vital Signs Date Time Vital Sign Value Performing Clinician Facility 07-28-2024 14:25-0500 Body height 162.6 cm [facility] 5 [facility] 07-28-2024 14:25-0500 Body mass index (BMI) [Ratio] 24.2 kg/m2 [facility] 5 [facility] 07-28-2024 14:25-0500 Body weight 63.96 kg Stcz 5 [facility] 06-27-2024 14:29-0500 Body height 162.6 cm St[facility] 4 [facility] 06-27-2024 14:29-0500 Body mass index (BMI) [Ratio] 25.4 kg/m2 [facility] 4 [facility] 06-27-2024 14:29-0500 Body weight 67.13 kg Stcz 4 [facility] 05-02-2024 08:54-0400 Body height 162.6 cm Catracho Sheriff MD Work Phone: [facility] 05-02-2024 08:54-0400 Body mass index (BMI) [Ratio] 24.2 kg/m2 Catracho Sheriff MD Work Phone: [facility] 05-02-2024 08:54-0400 Body weight 63.96 kg Catracho Sheriff MD Work Phone: [facility] 04-28-2024 08:56-0400 Body height 162.6 cm Catracho Sheriff MD Work Phone: [facility] 04-28-2024 08:56-0400 Body mass index (BMI) [Ratio] 24.2 kg/m2 Catracho Sheriff MD Work Phone: [facility] 04-28-2024 08:56-0400 Body weight 63.96 kg Catracho Sheriff MD Work Phone: [facility] 04-26-2024 16:21-0400 Body height 162.6 cm Catracho Sheriff MD Work Phone: [facility] 04-26-2024 16:21-0400 Body mass index (BMI) [Ratio] 24.2 kg/m2 Catracho Sheriff MD Work Phone: [facility] 04-26-2024 16:21-0400 Body weight 63.96 kg Catracho Sheriff MD Work Phone: [facility] 04-14-2024 09:26-0400 Body height 162.6 cm Catracho Sheriff MD Work Phone: [facility] 04-14-2024 09:26-0400 Body mass index (BMI) [Ratio] 24.2 kg/m2 Catracho Sheriff MD Work Phone: [facility] 04-14-2024 09:26-0400 Body weight 63.96 kg Catracho Sheriff MD Work Phone: [facility] 03-29-2024 15:37-0400 Body height 162.6 cm [facility] 4 [facility] 03-29-2024 15:37-0400 Body mass index (BMI) [Ratio] 24.2 kg/m2 [facility] 4 [facility] 03-29-2024 15:37-0400 Body weight 63.96 kg Stcz 4 [facility] 01-29-2024 13:20-0400 Diastolic blood pressure 59 mm[Hg] Nicky Ugarte MD Work Phone: [facility] [employer] 01-29-2024 13:20-0400 Heart rate 73 /min Nicky Ugarte MD Work Phone: [facility] [employer] [facility] [employer] 01-29-2024 13:20-0400 Respiratory rate 17 /min Nicky Ugarte MD Work Phone: [facility] [employer] 01-29-2024 13:20-0400 SaO2% (BldA) [Mass fraction] 89 % Nicky Ugarte MD Work Phone: [facility] 01-29-2024 13:20-0400 Systolic blood pressure 115 mm[Hg] Nicky Ugarte MD Work Phone: [facility] [employer] 01-29-2024 12:56-0400 Body temperature 98.71 [degF] Nicky Ugarte MD Work Phone: [facility] [employer] 07-05-2024 10:57-0400 Body height 162.6 cm Nicky Ugarte MD Work Phone: [employer] [facility] 01-29-2024 10:57-0400 Body mass index (BMI) [Ratio] 24.19 kg/m2 Nicky Ugarte MD Work Phone: [facility] [employer] 01-29-2024 10:57-0400 Body weight 63.96 kg Nicky Ugarte MD Work Phone: [facility] [employer] 12-03-2023 15:31-0400 Heart rate 69 /min Ray De La Cruz MD Work Phone: [employer] 12-03-2023 15:31-0400 SaO2% (BldA) [Mass fraction] 94 % Ray De La Cruz MD Work Phone: [employer] [facility] 12-03-2023 11:02-0400 Body temperature 98.01 [degF] Ray De La Cruz MD Work Phone: [facility] 12-03-2023 11:02-0400 Diastolic blood pressure 57 mm[Hg] Ray De La Cruz MD Work Phone: [facility] 12-03-2023 11:02-0400 Respiratory rate 18 /min Ray De La Cruz MD Work Phone: [facility] 12-03-2023 11:02-0400 Systolic blood pressure 108 mm[Hg] Ray De La Cruz MD Work Phone: [facility] 12-02-2023 06:00-0400 Body mass index (BMI) [Ratio] 34.38 kg/m2 Ray De La Cruz MD Work Phone: [facility] 12-02-2023 06:00-0400 Body weight 88 kg Ray De La Cruz MD Work Phone: [facility] 11-30-2023 15:24-0400 Body height 160 cm Ray De La Cruz MD Work Phone: [facility] 11-21-2023 15:01-0400 Body temperature 97.7 [degF] MD Catracho Sheriff Work Phone: [facility] 11-21-2023 15:01-0400 Diastolic blood pressure 54 mm[Hg] MD Catracho Sheriff Work Phone: [facility] 11-21-2023 15:01-0400 Heart rate 73 /min MD Catracho Sheriff Work Phone: [facility] 11-21-2023 15:01-0400 Respiratory rate 20 /min MD Catracho Sheriff Work Phone: [facility] 11-21-2023 15:01-0400 SaO2% (BldA) [Mass fraction] 96 % MD Catracho Sheriff Work Phone: [facility] 11-21-2023 15:01-0400 Systolic blood pressure 108 mm[Hg] MD Catracho Sheriff Work Phone: [facility] 11-21-2023 05:33-0400 Body weight 73.5 kg MD Catracho Sheriff Work Phone: [facility] 11-20-2023 13:22-0400 Body height 160.02 cm MD Catracho Sheriff Work Phone: [facility] 11-19-2023 00:00-0400 Inhaled oxygen flow rate 2 L/min MD Catracho Sheriff Work Phone: [facility] 08-25-2023 10:17-0500 Body height 162.6 cm Catracho Sheriff MD Work Phone: [facility] 08-25-2023 10:17-0500 Body mass index (BMI) [Ratio] 25.06 kg/m2 Catracho Sheriff MD Work Phone: [facility] 08-25-2023 10:17-0500 Body weight 66.22 kg Catracho Sheriff MD Work Phone: [facility] Healthcare Encounters Encounter Date Encounter Type Care Provider Facility Start: 12-29-2024 End: 12-29-2024 Refill Catracho Sheriff MD Work Phone: [facility] Comment on above: Chronic pain syndrom e Start: 10-04-2024 End: 10-04-2024 ambulatory CATRACHO SHERIFF Not Available Start: 09-19-2024 End: 09-19-2024 Refill Catracho Sheriff MD Work Phone: [facility] Comment on above: Generalized anxiety disorder (CMS/HCC) Start: 07-28-2024 End: 08-01-2024 ambulatory CATRACHO SHERIFF [facility] Start: 07-28-2024 End: 08-01-2024 Subsequent hospital visit by physician Natalie Pat Rm 5 NATALIE Pre-Admit Testing Start: 07-13-2024 End: 07-13-2024 Bamboo [...] Start: 06-27-2024 End: 07-01-2024 ambulatory CATRACHO SHERIFF [facility] Start: 06-27-2024 End: 07-01-2024 Subsequent hospital visit [...] Not Available Start: 04-26-2024 End: 04-26-2024 Bamboo flowsheet Catracho Sheriff MD Work Phone: [facility] Start: 04-26-2024 End: 04-27-2024 Bamboo flowsheet Catracho Sheriff MD Work Phone: [facility] Start: 04-26-2024 End: 04-27-2024 External Result Encounter Catracho Sheriff MD Work Phone: [facility] External Department Unsolicited Start: 04-14-2024 End: 04-14-2024 Bamboo flowsheet Catracho Sheriff MD Work Phone: [facility] Start: 04-14-2024 End: 04-14-2024 Bamboo flowsheet Catracho Sheriff MD Work Phone: [...] to breakdown of skin without varicose veins ([facility]/HCC) Start: 04-14-2024 End: 04-14-2024 ambulatory CATRACHO SHERIFF Not Available Start: 04-12-2024 End: 04-12-2024 [facility]: 03-29-2024 End: 04-02-2024 ambulatory CATRACHO Cobb [facility] Start: 03-29-2024 End: 04-02-2024 Subsequent hospital visit by physician Natalie Mosley Rm 4 NATALIE Pre-Admit Testing Start: 03-01-2024 End: 03-01-2024 ambulatory LEONILA ZAPATA Not Available Start: 02-16-2024 End: 02-16-2024 ambulatory LEONILA ZAPATA Not Available Start: 01-29-2024 End: [facility] Start: 01-29-2024 End: 01-29-2024 Subsequent hospital visit by physician Nicky Ugarte MD Work Phone: NATALIE CORONA Comment on above: Duodenal ulcer Start: 01-26-2024 End: 01-26-2024 ambulatory CATRACHO SHERIFF Not Available Start: 01-19-2024 End: 01-19-2024 ambulatory CATRACHO SHERIFF Not Available Start: 01-18-2024 End: 01-22-2024 [facility] Start: 12-29-2023 End: 12-29-2023 ambulatory CATRACHO SHERIFF Not Available Start: 11-25-2023 End: 12-03-2023 Evaluation and management of inpatient DILNOOR DULCE [facility] Start: 11-25-2023 End: 12-03-2023 Evaluation and management of inpatient Ray De La Cruz MD Work Phone: [facility] Comment on above: Acute anemia (Primar y Dx) Start: 11-17-2023 Non-patient / Non-visit MD Vince Sheriff Work Phone: [facility] Work Phone: Start: 11-17-2023 End: 11-21-2023 Evaluation and management of inpatient Catracho Sheriff Facility:[facility] Start: 11-17-2023 End: 11-21-2023 Evaluation and management of inpatient MD Catracho Sheriff Work Phone: [facility] Work Phone: Start: 11-03-2023 End: [...] both legs; Arthritis of both knees Start: 08-26-2022 End: 08-27-[address] CATRACHO [...] hemoglobin Manasa Pollock MD Work Phone: Start: 0 End: 11-30-2023 Blood count hemoglobin Arnaud catherine [...] panel Deanna Coyle MD Work Phone: Start: 05-04-2024 Antibody screen Ray De La Cruz MD Work Phone: Start: 11-28-2023 BASIC METABOLIC PANEL W/ REFLEX TO MG FOR LOW K Farnaz Burgos [employer] PROGRAM PROJECT ANALYST Work Phone: Start: 11-27-2023 End: 11-28-2023 Transfusion of packed red blood cells Jasmine Leong [employer] - [employer]GRAM PROJECT ANALYST Work Phone: Start: 11-27-2023 Blood count hemoglobin Deanna Coyle MD Work Phone: Start: 11-27-2023 Blood count hemoglobin Nicky Ugarte MD Work Phone: Start: 11-27-2023 Vascular embolization or occlusion hemorrhage Jossy Leem [employer] - [employer]GRAM PROJECT ANALYST Work Phone: Start: 11-27-2023 Radiologic exam chest [...] Phone: Start: 11-26-2023 Assay of magnesium Kathy Flores [employer] - PROGRAM PROJECT ANALYST Work Phone: Start: 11-26-2023 BASIC METABOLIC PANEL W/ REFLEX TO MG FOR LOW K Nicky Ugarte MD Work Phone: Start: 11-25-2023 Blood count hemoglobin Nicky Ugarte MD Work Phone: Start: 11-25-2023 LACTATE, SEPSIS Nicky Ugarte MD Work Phone: Start: 11-25-2023 Radiologic exam chest single view Misti Montemayor [employer] [facility] Work Phone: Start: 11-25-2023 Blood count hemoglobin Diana truong MD Work Phone: Start: 11-25-2023 End: 11-25-2023 ESOPHAGOGASTRODUODENOSCOPY CONTROL HEMORRHAGE Nicky Ugarte MD Work Phone: Start: 11-25-2023 LACTATE, SEPSIS Nicky Ugarte MD Work Phone: Start: 11-25-2023 End: 11-25-2023 Transfusion of packed red blood cells Jossy Aguilar Geoff [facility] Work Phone: Start: 11-25-2023 End: 11-25-2023 Transfusion [...] 11-25-2023 Blood typing serologic abo Kathy Flores [employer] [facility] Work Phone: Start: 11-25-2023 BASIC METABOLIC PANEL W/ REFLEX TO MG FOR LOW K Kathy Flores [employer] - PROGRAM PROJECT ANALYST Work Phone: Start: 11-25-2023 Prothrombin time Kathy Flores PATY - PROGRAM PROJECT ANALYST Work Phone: Start: 11-18-2023 Esophagogastroduodenoscopy MD Catracho lazo Work Phone: Start: 11-18-2023 Antibody screen Catracho Sheriff Comment on above: Order Comment: Transfuse now? Y Number of units to transfuse now? 1 Transfuse now? Y Number of units to transfuse now? 1 Transfuse now? Y Number of units to transfuse now? 1 Transfuse now? Y Number of units to transfuse now? 1 Result Comment: PERF ORMED BY: [facility] [address] [place] [address] PATHOLOGIST PURCHASING INTERN EVY GARCIA M.D. Start: 09-12-2013 Colonoscopy Catracho Sheriff MD Work Phone: Plan of Treatment Date Care Activity Detail Author Start: 03-27-2025 Influenza vaccination Influenza Vaccine (Season Ended) [facility] Start: 01-23-2025 Influenza vaccination Influenza Vaccine (#1) [facility] Comment on above: Postponed from 03/27/2024 (Patient Refus ed) Start: 01-04-2025 End: 01-04-2025 Patient encounter procedure [facility] Start: 10-31-2024 End: 05-02-2025 Thyrotropin [Units/volume] in Serum or Plasma TSH Lab Routine Postsurgical hypothyroidism (CMS/HCC) Expected: 10/31/2024 (Approximate), Expires: 05/02/2025 [facility] Work Phone: Comment on above: Expected: 10/31/2024 [...] 10-04-2024 End: 10-04-2024 Patient encounter procedure [facility] 00 Start: 08-13-2024 Medicare Annual Wellness (AWV) Medicare Annual Wellness (AWV) [facility] Start: 08-05-2024 End: 08-05-2024 Admission to same day surgery center 08/05/2024 2:45 PM EST - 08/05/2024 3:00 PM EST Surgery [facility] [address] [place] [address] Nicky Ugarte MD [address] [facility] [address] [place] [id number] ESOPHAGOGASTRODUODENOSCOPY BIOPSY [facility] Comment on above: ESOPHAGOGASTRODUODENOSCOPY BIOPSY Start: 08-05-2024 End: 08-05-2024 Egd transoral biopsy single/multiple ESOPHAGOGASTRODUODENOSCOPY BIOPSY Duodenal ulcer 08/05/2024 2:45 PM EST [facility] Start: 08-05-2024 Subsequent hospital visit by physician 08/05/2024 2:45 PM EST Hospital Encounter [facility] [address] [place] [address] Nicky Ugarte MD [address] [facility] [address] [place], [place] [id number] [facility] Start: 07-27-2024 Annual Wellness Visit (Medicare Advantage) Annual Wellness Visit (Medicare Advantage) [facility] Start: 07-13-2024 End: 07-13-2024 Patient encounter procedure 07/13/2024 9:30 AM EST Office Visit [facility] [address] [place] [address] Catracho Sheriff MD [address] [place] [address] (Fax) Arrived [facility] Comment on above: Arrived Start: 07-12-2024 End: 07-12-2024 Patient encounter procedure [facility] 1 00 Start: 07-05-2024 End: 07-05-2024 Admission to same day surgery center 07/05/2024 10:45 AM EST - 07/05/2024 11:00 AM EST Surgery [facility] [address] [place] [address] Nicky Ugarte MD [address] [address] ESOPHAGOGASTRODUODENOSCOPY WITH BIOPSY [facility] Comment on above: ESOPHAGOGASTRODUODENOSCOPY WITH BIOPSY Start: 07-05-2024 End: 07-05-2024 Egd transoral biopsy single/multiple ESOPHAGOGASTRODUODENOSCOPY BIOPSY Duodenal ulcer 07/05/2024 10:45 AM EST [facility] Start: 07-05-2024 Subsequent hospital visit by physician 07/05/2024 10:45 AM EST Hospital Encounter [facility] [address] [place] [address] Nicky Ugarte MD [address] [facility] [address] [place] [address] [facility] Start: 05-02-2024 End: 05-02-2025 CBC [...] Visit [facility] [address] [id number] Catracho Sheriff MD [address] [place] [address] (Fax) Arrived [facility] Comment [...] Visit [facility] [address] [address] Catracho Sheriff MD [address] [place] [address] (Fax) Chronic pain syndrome; Fibromyalgia; Primary osteoarthritis, [...] 04/12/2024 11:45 AM EDT Surgery [facility] [address] [place] [address] Nicky Ugarte MD [address] [facility] [address] [place] [address] ESOPHAGOGASTRODUODENOSCOPY BIOPSY POSSIBLE DILATION [facility] Comment on above: ESOPHAGOGASTRODUODENOSCOPY BIOPSY POSSIB LE DILATION Start: 04-12-2024 End: 04-12-2024 Egd transoral biopsy single/multiple ESOPHAGOGASTRODUODENOSCOPY BIOPSY Duodenal stricture 04/12/2024 11:30 AM EDT [facility] Start: 04-12-2024 Subsequent hospital visit by physician 04/12/2024 11:30 AM EDT Hospital Encounter [facility] [address] [place] [address] Nicky Ugarte MD [address] [facility] [address] [place] [address] [facility] Start: 03-27-2024 COVID-19 Vaccine ( season) COVID-19 Vaccine () [facility] Start: 03-27-2024 Influenza vaccination Influenza Vaccine (#1) [facility] Start: 03-05-2024 End: 12-01-2024 CBC panel - Blood by Automated count CBC Lab Routine Acute anemia Expected: 03/05/2024, Expires: 12/01/2024 [facility] Comment on above: Expected: 03/05/2024, Expires: Start: 02-25-2024 Influenza vaccination [facility] Start: 01-29-2024 End: 01-29-2024 Egd transoral biopsy single/multiple ESOPHAGOGASTRODUODENOSCOPY BIOPSY Duodenal ulcer 01/29/2024 12:41 PM EDT [facility] Start: 12-09-2023 End: 12-09-2023 Patient encounter procedure 12/09/2023 10:30 AM EDT Office Visit [facility] [address] [place] [address] Nicky Ugarte MD [address] [place] [address] EGD F/u 11/25/23 & 12/01/23 [facility] Comment on above: EGD F/u 11/25/23 & 12/01/23 Start: 11-21-2023 [facility] Start: 11-17-2023 Hospital admission [facility] Start: 11-17-2023 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 to assistant district attorney [facility] Start: 10-21-2023 End: 10-21-2023 Patient encounter procedure 10/21/2023 10:30 AM EDT Office Visit [facility] [address] [place] [address] Catracho Sheriff MD [address] [place] [address] (Fax) [facility] Start: 09-12-2023 Screening for malignant neoplasm of colon [facility] Start: 2023 Respiratory Syncytial Virus (RSV) or age 60 yrs+ (1 - 1-dose 75+ series) Respiratory Syncytial Virus (RSV) or age 60 yrs+ (1 - 1-dose 75+ series) [facility] Start: 07-27-2023 Annual Wellness Visit (Medicare Advantage) Annual Wellness Visit (Medicare Advantage) [facility] Start: 03-27-2023 COVID-19 Vaccine ( season) COVID-19 Vaccine ( season) [facility] Start: 03-27-2023 Influenza vaccination Influenza Vaccine (#1) [facility] Start: 2008 Respiratory Syncytial Virus (RSV) or age 60 yrs+ (1 - 1-dose 60+ series) Respiratory Syncytial Virus (RSV) or age 60 yrs+ (1 - 1-dose 60+ series) [facility] Start: 11-12-2004 DTaP/Tdap/Td vaccine (1 - Tdap) DTaP/Tdap/Td vaccine (1 - Tdap) [facility] Start: 2003 Screening for osteoporosis DEXA (modify frequency per FRAX score) [facility] Start: 1998 Screening for malignant neoplasm of lung [facility] Start: 1998 Shingles vaccine (1 of 2) Shingles vaccine (1 of 2) [facility] Start: 1993 Screening for malignant neoplasm of colon [facility] Start: 1988 Lipid panel Lipids [facility] Start: 1966 Hepatitis C screening Hepatitis C screen [facility] Start: 1960 Depression Screen Depression Screen [facility] Start: 1948 Screening for malignant neoplasm of colon [facility] End: 12-20-2023 Basic Metabolic Panel w/ Reflex to MG Basic Metabolic Panel w/ Reflex to MG Lab Routine Daily for 3 Weeks starting 11/30/2023 until 12/20/2023, 4 completed [facility] [employer] Comment on above: Daily for 3 Weeks starting 11/30/2023 un til 12/20/2023, 4 completed Body fluid culture Body fluid cu lture Microbiology Routine 04/26/2024 4:46 PM EDT [facility] Work Phone: End: 12-20-2023 CBC W Auto Differential panel - Blood CBC with Auto Differential Lab Routine Daily for 3 Weeks starting 11/30/2023 until 12/20/2023, 4 completed [facility] [employer] Comment on above: Daily for 3 Weeks starting 11/30/2023 un til 12/20/2023, 4 completed EKG 12 Lead EKG 12 Lead ECG Routine 12/03/2023 5:35 AM EDT [facility] [employer] EKG 12 Lead EKG 12 Lead ECG STAT 12/03/2023 5:35 AM EDT [employer] Work Phone: Helicobacter pylori Ag [Presence] in Stool by Immunoassay [facility] End: 11-29-2023 Hemoglobin and Hematocrit Hemoglobin and Hematocrit Lab Routine Post Transfusion Post Transfusion Post Transfustion until discontinued starting 11/28/2023 [employer] Comment on above: Post Transfusion Post Transfusion Post T ransfustion until discontinued starting 11/28/2023 End: 12-13-2023 Hemoglobin and Hematocrit Hemoglobin and Hematocrit Lab Routine Post Transfusion Post Transfusion Post Transfustion until discontinued starting 11/29/2023 [employer] Comment on above: Post Transfusion Post Transfusion Post T ransfustion until discontinued starting 11/29/2023 End: 12-14-2023 Hemoglobin and Hematocrit Hemoglobin and Hematocrit Lab Routine Post Transfusion Post Transfusion Post Transfustion until discontinued starting 11/30/2023 [employer] Comment on above: Post Transfusion Post Transfusion Post T ransfustion until discontinued starting 11/30/2023 End: 12-01-2023 INITIATE PACU OXYGEN THERAPY PROTOCOL Initiate PACU Oxygen Therapy Protocol Respiratory Care Routine Continuous until discontinued starting 12/01/2023 [employer] Work Phone: Comment on above: Continuous until discontinued starting 0 12/01/2023 Intermittent pulse oximetry Puls e Oximetry Spot Check Respiratory Care Routine As Needed until discontinued starting 11/27/2023 [employer] Comment on above: As Needed until discontinued starting Oxygen therapy [Mini mum Data Set] Initiate Oxygen Therapy Protocol Respiratory Care Routine As Needed until discontinued starting 11/25/2023 [employer] Comment on above: As Needed until discontinued starting Oxygen therapy [Mini mum Data Set] Initiate Oxygen Therapy Protocol Respiratory Care Routine As Needed until discontinued starting 01/29/2024 [employer] Work Phone: Comment on above: As Needed until discontinued starting Patient Education Duodenal Ulcer (DC) Pantoprazole Polysaccharide-Iron Complex [facility] Work Phone: Patient referral [facility] Work Phone: End: 11-27-2023 PREPARE RBC (CROSSMATCH), 1 Units PREPARE RBC (CROSSMATCH), 1 Units Blood Bank Routine Once for 1 Occurrences starting 11/27/2023 until 11/27/2023 [employer] [facility] Comment on above: Once for 1 Occurrences starting 11/27/19 until 11/27/2023 End: 11-29-2023 PREPARE RBC (CROSSMATCH), 1 Units PREPARE RBC (CROSSMATCH), 1 Units Blood Bank Routine Once for 1 Occurrences starting 11/29/2023 until 11/29/2023 [employer] [facility] Comment on above: Once for 1 Occurrences starting 11/29/19 until 11/29/2023 End: 11-30-2023 PREPARE RBC (CROSSMATCH), 1 Units PREPARE RBC (CROSSMATCH), 1 Units Blood Bank Routine Once for 1 Occurrences starting 11/30/2023 until 11/30/2023 [employer] [facility] Comment on above: Once for 1 Occurrences starting 11/30/19 until 11/30/2023 End: 11-29-2023 SPECIMEN REJECTION [employer] [facility] Comment on above: Once for 1 Occurrences starting 11/29/19 until 11/29/2023 End: 11-30-2023 SPECIMEN REJECTION [employer] [facility] Work Phone: Comment on above: Once for 1 Occurrences starting 11/30/19 until 11/30/2023 Surgical Pathology Surgical Path ology Lab Routine Duodenal ulcer Release Upon Ordering for 1 Occurrences starting 01/29/2024 [employer] [facility] Comment on above: Release Upon Ordering for 1 Occurrences starting 01/29/2024 End: 01-29-2024 SURGICAL PATHOLOGY REPORT SURGICAL PATHOLOGY REPORT Lab Routine Once for 1 Occurrences starting 01/29/2024 until 01/29/2024 [employer] [facility] Comment on above: Once for 1 Occurrences starting 01/29/20 until 01/29/2024 Transfuse RBC [email or web address] Immunizations Immunization Date Immunization Notes Care Provider [facility] 05-03-2021 Seasonal, trivalent, recombinant, injectable influenza vaccine, preservative free Catracho Sheriff MD Work Phone: [facility] 05-03-2021 influenza virus vacc ine, unspecified formulation Catracho Sheriff MD Work Phone: [facility] 12-03-2020 Pfizer Purple Cap SARS-CoV-2 Vaccination Catracho Sheriff MD Work Phone: [facility] 11-12-2020 Pfizer Purple Cap SARS-CoV-2 Vaccination Catracho Sheriff MD Work Phone: [facility] 09-26-2019 Influenza, High-dose Seasonal, Quadrivalent, Preservative Free Catracho Sheriff MD Work Phone: [facility] 09-26-2019 pneumococcal polysaccharide vaccine, 23 valent Catracho Sheriff MD Work Phone: [facility] 06-26-2018 influenza, injectabl e, quadrivalent, preservative free Catracho Sheriff MD Work Phone: [facility] 06-26-2018 pneumococcal conjuga te vaccine, 13 valent Catrcaho Sheriff MD Work Phone: [facility] 11-11-2004 pneumococcal polysaccharide vaccine, 23 valent Catracho Sheriff MD Work Phone: [facility] 11-11-2004 tetanus and diphther ia toxoids, adsorbed, preservative free, for adult use (5 Lf of tetanus toxoid and 2 Lf of diphtheria toxoid) Catracho Sheriff MD Work Phone: [facility] Payers Date Payer Category Payer Medicare [id number] 2023 Self-pay [id number] 2022 Medicare (Managed Care) [employer] [id number] 2008 Medicare [id number] 1959 Medicare [id number] 1948 Unknown [id number] 2.16.840.1.174895.3.579.2. 593 1948 Unknown [id number] 2.16.840.1.371328.3.579.2. 593 1948 Unknown [id number] 2.16.840.1.250389.3.579.2. 175 1948 Unknown [id number] 2.16.840.1.721758.3.579.2. 176 1948 Unknown [id number] 2.16.840.1.776506.3.579.2. 176 1948 Unknown [id number] 2.16.840.1.219535.3.579.2. 176 1948 Unknown [id number] 2.16.840.1.549501.3.579.2. 176 1948 Unknown [id number] 2.16.840.1.402527.3.579.2. 176 1948 Unknown [id number] 2.16.840.1.138133.3.579.2. 176 1948 Unknown [id number] 2.16.840.1.891796.3.579.2. 1259 1948 Unknown [id number] 2.16.840.1.276802.3.579.2. 1259 1948 Unknown [id number] 2.16.840.1.374087.3.579.2. 1259 1948 Unknown [id number] 2.16.840.1.358758.3.579.2. 1259 1948 Unknown [id number] 2.16.840.1.850854.3.579.2. 1258 1948 Unknown [id number] 2.16.840.1.418180.3.579.2. 125 1948 Unknown [id number] 2.16.840.1.080651.3.579.2. 1258 1948 Unknown [id number] 2.16.840.1.656698.3.579.2. 125 1948 Unknown [id number] 2.16.840.1.876513.3.579.2. 1258 1948 Unknown [id number] 2.16.840.1.468048.3.579.2. 1258 1948 Unknown [id number] 2.16.840.1.751030.3.579.2. 1258 1948 Unknown [id number] 2.16.840.1.574125.3.579.2. 125 1948 Unknown [id number] 2.16.840.1.286441.3.579.2. 1259 Medicaid Medicaid [place] [id number] Medicare Medicare Outpatient [id number] Unknown HCAP/HFA/FAP Active [id number] Unknown [id number] 2.16.840.1.459105.3.579.2. 531 Social History Date Type Detail Facility Start: 08-13-2023 End: 03-29-2024 Tobacco smoking status MTIS Ex-smoker [facility] Start: 11-17-2023 End: 03-22-2024 History of tobacco use Current smoker [facility] End: 03-22-2024 History of tobacco use Cigarette Smoker [facility] Start: 08-13-2023 End: 03-29-2024 Tobacco use and exposure Smokeless tobacco non-user [facility] Start: 08-25-2023 End: 10-04-2024 Alcohol intake Ex-drinker (finding) [facility] Start: 08-25-2023 End: 12-23-2024 History of Social function [facility] Start: 08-25-2023 End: 12-23-2024 Tobacco use panel [facility] Start: 02-24-2023 Education 13 [facility] Start: 02-24-2023 Alcohol Comment Caffeine intak e: drinks decaf [facility] Start: 1950 Sex Assigned At Not on file [facility] Start: 1950 Sex Assigned At Female F [facility] Start: 11-25-2023 Tobacco smoking stat us NHIS Smokes tobacco daily [facility] Has the [facility], [employer], oil, or water company threatened to shut off services in your home in past 12Mo Patient declined [facility] (I/We) worried uri er (my/our) food would run out before (I/we) got money to buy more. Never true [facility] How often do you nee d to have someone help you when you read instructions, pamphlets, or other written material from your doctor or pharmacy [SILS] Never [facility] Within the last year , have you been afraid of your partner or ex-partner? No [facility] Are you now , , , , never or living with a partner? [facility] How hard is it for y ou to pay for the very basics like food, housing, medical care, and heating Somewhat hard [facility] Do you feel stress - tense, restless, nervous, or anxious, or unable to sleep at night because your mind is troubled all the time - these days [OSQ] To some extent [facility] Goals Date Patient Goal Desired Activity /State Functional Status Date Assessment Result Facility 11-21-2023 Functional status Patient at Baseline [facility] Work Phone: Mental Status Date Assessment Result Facility 11-21-2023 Cognitive function Cognitive Sta tus Patient at Baseline [facility] Work Phone: Clinical Notes 08-25-2023 to 08-17-2024 Telephone Encounter - Catracho Sheriff MD - 08/17/2024 4:35 PM ESTTelephone Encounter - Catracho Sheriff MD - 08/17/2024 4:35 PM Allyson Atkinson RN - 07/28/2024 2:00 PM EST Note Date & Type Note Facility 08-17-2024 Telephone encounter Note error [facility] 08-17-2024 Miscellaneous Notes error documented in this encounter [facility] 07-28-2024 History of Present illness Narrative Pre-op [...] lotion, powder, jewelry, piercings, perfume, makeup, nail burundian, hair accessories, or hair spray on the day of surgery. Wear loose comfortable clothing. Leave your valuables at home but bring a payment source for any after-surgery prescriptions you plan to fill at [facility]. Bring a storage case for any glasses/contacts. An adult who is responsible for you MUST drive you home and should be with you for the first 24 hours after surgery. The Day of Surgery: Arrive at [facility] Entrance at the time directed by your surgeon and check in at the desk. If you have a living will or healthcare power of deputy county attorney, please bring a copy. You will be taken to the pre-op holding area where you will be prepared for surgery. A physical assessment will be performed by a nurse practitioner or fun house operator. Your IV will be started and you [...] EGD 08/05/24 documented in this encounter [facility] 07-13-2024 History of Present illness Narrative Images [...] down to the shoulder blades. She is mldk-[id number] tender in this area. Decreased range of [...] by mouth at bedtime 90 tablet 1 [place]-3 Fatty Acids (Fish Oil) 1000 MG capsule [...] 90 tablet; Refill: 1 11. Postsurgical hypothyroidism ([facility]) - levothyroxine (Synthroid) 175 MCG tablet; Take [...] evaluation and management. documented in this encounter [facility] 06-27-2024 History of Present illness Narrative Pre-op [...] lotion, powder, jewelry, piercings, perfume, makeup, nail burundian, hair accessories, or hair spray on the day of surgery. Wear loose comfortable clothing. Leave your valuables at home but bring a payment source for any after-surgery prescriptions you plan to fill at [facility]. Bring a storage case for any glasses/contacts. An adult who is responsible for you MUST drive you home and should be with you for the first 24 hours after surgery. Son will ride in cab with her The Day of Surgery: Arrive at [facility] Surgery Entrance at the time directed by your surgeon and check in at the desk. If you have a living will or healthcare power of deputy county attorney, please bring a copy. You will be taken to the pre-op holding area where you will be prepared for surgery. A physical assessment will be performed by a nurse practitioner or fun house operator. Your IV will be started and you [...] understanding of instructions documented in this encounter [facility] 06-21-2024 Telephone encounter Note RX sent [facility] 06-21-2024 Miscellaneous Notes RX sent documented in this encounter [facility] 06-15-2024 Telephone encounter Note See CCM note. RX sent [facility] 06-15-2024 Miscellaneous Notes See CCM note. RX sent documented in this encounter [facility] 05-02-2024 History of Present illness Narrative Images [...] by mouth at bedtime 90 tablet 1 [place]-3 Fatty Acids (Fish Oil) 1000 MG capsule [...] referral up to the vascular surgeon in [place]. Not sure if there is much he [...] Handicap Placard Lifetime documented in this encounter [facility] 04-28-2024 History of Present illness Narrative Images [...] by mouth at bedtime 90 tablet 1 [place]-3 Fatty Acids (Fish Oil) 1000 MG capsule [...] develop a thrombophlebitis. documented in this encounter [facility] 04-26-2024 History of Present illness Narrative Images from the original note were not included. Patient ID: Jenny Ewing is a 73 y.o. female who presents for: She is here with her friend Radha garcia. Wound Check Patient presents for initial wound [...] by mouth at bedtime 90 tablet 1 [place]-3 Fatty Acids (Fish Oil) 1000 MG capsule [...] met with resistance. documented in this encounter [facility] 04-14-2024 History of Present illness Narrative Images from the original note were not included. Patient ID: Jenny Ewing is a 73 y.o. female who presents for: She again is here with her friend aRdha who is helping her. Anxiety Patient is [...] by mouth at bedtime 90 tablet 1 [place]-3 Fatty Acids (Fish Oil) 1000 MG capsule [...] seek medical care. documented in this encounter [facility] 03-29-2024 History of Present illness Narrative Pre-op [...] lotion, powder, jewelry, piercings, perfume, makeup, nail burundian, hair accessories, or hair spray on the day of surgery. Wear loose comfortable clothing. Leave your valuables at home but bring a payment source for any after-surgery prescriptions you plan to fill at [facility]. Bring a storage case for any glasses/contacts. An adult who is responsible for you MUST drive you home and should be with you for the first 24 hours after surgery. The Day of Surgery: Arrive at [facility] Surgery Entrance at the time directed by your surgeon and check in at the desk. If you have a living will or healthcare power of deputy county attorney, please bring a copy. You will be taken to the pre-op holding area where you will be prepared for surgery. A physical assessment will be performed by a nurse practitioner or fun house operator. Your IV will be started and you [...] POSSIBLE DILATION- 04/12/2024 documented in this encounter [facility] 01-29-2024 Hospital Discharge instructions Drew Lund [...] or neck pain documented in this encounter [facility] 12-03-2023 History of Present illness Narrative [...] Unable to assess Fluid Accumulation: Mild Extremities Instant Print Operator Strength: Not Performed Nutrition Assessment: Diet advanced [...] Measures: Height: 160 cm (5' 2.99 ) [place] Body Weight (IBW): 115 lbs (52 kg) [...] Used for Energy Requirements: Admission Energy (kcal/day): 2913-9362 kcals/day Weight Used for Protein Requirements: Admission Protein (g/day): 80 to 100 g/day Method Used for Fluid Requirements: 1 ml/kcal Fluid (ml/day): 9716-2229 mL/day or per MD Nutrition Diagnosis: Inadequate [...] Oral Nutrition Supplement Zenobia Negrete RD Contact: [phone] Images from the original note were not included. [facility] Office: [phone] Alvin Ma DO, Erick Burns DO, Varghese [...] Lugo MD, Bruce Pozo MD, Aida Montemayor, PROGRAM PROJECT ANALYST, Nereyda Patiño, PROGRAM PROJECT ANALYST, Vito Calabrese, PROGRAM PROJECT ANALYST, Karime Keane, [facility], Halima Mason, PROGRAM PROJECT ANALYST, Carmen Orozco, PROGRAM PROJECT ANALYST, Kathy Flores, PROGRAM PROJECT ANALYST, Farnaz Burgos, PROGRAM PROJECT ANALYST, Maricel Burger, PA-C, Alicia Veliz, PA-C, Olivia Stiles, PROGRAM PROJECT ANALYST, Ying Singleton, PROGRAM PROJECT ANALYST, Vikas Laird, PROGRAM PROJECT ANALYST, Mira Pina, PROGRAM PROJECT ANALYST, Briana Lim, PROGRAM PROJECT ANALYST, Shirley Johnson, [facility], Jenny Denise, PROGRAM PROJECT ANALYST, Jasmine Leong, PROGRAM PROJECT ANALYST, Janice Perla, PROGRAM PROJECT ANALYST [facility] IN-PATIENT SERVICE [facility] Progress Note 12/03/2023 8:14 AM Name: Jenny Ewing Acct: [id number] Room: Day: 8 Admit Date: 11/25/2023 4:07 AM PCP: No primary care provider on file. Code Status: Full Code Subjective: C/C: GI bleed Interval History Status: stable. Overnight patient went into A-fib with RVR. Seen and examined bedside this morning. She was in normal sinus rhythm. Denied any symptoms. Evaluated by cardiology and started on low-dose beta-vu. Pending placement to [facility] Brief History: 73 year old female with past medical history of smoking, depression, back pain presents with maroon and black stools at home as well as a fall. Patient has history of GI bleed was clipped ad EGD, reports not available. Patient has hemoglobin of 6.6. received 1 unit transfusion at [facility]. She has not been able to picker and sorter load and unload her medications from prior discharge from [facility]. They were sent to her pharmacy on [...] -1150 ml Labs: Hematology: Recent Labs 12/01/23 0145 12/01/23 1021 12/01/23 1513 12/02/23 0652 12/03/23 0558 [...] interval not displayed. Chemistry: Recent Labs 12/01/23 0145 12/02/23 0652 12/03/23 0558 NA 137 137 139 K 3.8 3.4* 3.2* CL 107 101 101 CO2 23 28 31 GLUCOSE 79 85 83 BUN 8 4* 2* CREATININE 0.3* 0.4* 0.4* MG -- 1.7 -- ANIONGAP 7* 8* 7* LABGLOM >90 >90 >90 CALCIUM 6.8* 7.0* 7.6* No results for input(s): PROT , LABALBU , LABA1C , I4ITUKN , D0HBWVJ , FT4 , TSH , AST , ALT , LDH , GGT , ALKPHOS , BILITOT , BILIDIR , AMMONIA , AMYLASE , LIPASE , LACTATE , CHOL , HDL , CHOLHDLRATIO , TRIG , VLDL , KPQ81WZ , PHENYTOIN , PHENYF , URICACID , POCGLU in the last 72 hours. Invalid input(s): LABGGT , LDLCHOLESTEROL ABG:No results found for: POCPH , PHART , PH , POCPCO2 , HSY1SXJ , PCO2 , POCPO2 , PO2ART , PO2 , POCHCO3 , WGD8FYU , HCO3 , NBEA , PBEA , BEART , BE , THGBART , THB , ICZ4THK , DPDP0OOA , G5AEKHYJ , O2SAT , FIO2 No results found [...] Yes Plan: New onset A-fib with RVR [id number] 5-currently in normal sinus rhythm. Evaluated by [...] SNF.. Carol Abreu MD 12/03/2023 8:14 AM [facility] Gastroenterology Progress Note Jenny Ewing is a [...] results for input(s): TIBC , FERRITIN , [id number] , FOLATE , OCCULTBLD in the last [...] contact me with any questions or concerns. [facility] Gastroenterology PATY Quijano CNP [phone] 12/02/2023 3:14 PM Estimated time of 20 [...] from the original note were not included. [facility] Office: [phone] Alvin Ma DO, Erick Burns DO, Varghese [...] Pozo MD, Aida Montemayor CNP, Nereyda Patiño PROGRAM PROJECT ANALYST, Vito Calabrese, PROGRAM PROJECT ANALYST, Karime Keane, AAYUSH, Halima Mason, PROGRAM PROJECT ANALYST, Carmen Orozco, PROGRAM PROJECT ANALYST, Kathy Flores PROGRAM PROJECT ANALYST, Farnaz Burgos PROGRAM PROJECT ANALYST, Maricel Burger, PA-C, Alicia Veliz PA-C, Olivia Stiles, PROGRAM PROJECT ANALYST, Ying Singleton, PROGRAM PROJECT ANALYST, Vikas Laird PROGRAM PROJECT ANALYST, Mira Pina, PROGRAM PROJECT ANALYST, Briana Lim, PROGRAM PROJECT ANALYST, Shilrey Johnson, CAMERA SYSTEMS ENGINEER, Jenny Denise, PROGRAM PROJECT ANALYST, Jasmine Leong PROGRAM PROJECT ANALYST, Janice Perla, PROGRAM PROJECT ANALYST [facility] IN-PATIENT SERVICE [facility] Progress Note 12/02/2023 9:48 AM Name: Jenny Ewing Acct: [id number] Room: IP Day: 7 Admit Date: 11/25/2023 [...] of 6.6. [facility] She has not been able to picker and sorter load and unload her medications from prior discharge from [facility]. They were sent to her pharmacy on [...] Net -1400 ml Labs: Hematology: Recent Labs 11/30/2320311/30/23 0712/01/23 01412/01/23 1021 12/01/23 1513 12/02/23 0652 WBC 8.7 [...] this interval not displayed. Chemistry: Recent Labs 11/30/2320312/01/2314412/02/23 0652 NA 138 137 137 K 4.4 [...] , PHART , PH , POCPCO2 , UKL4ANR , PCO2 , POCPO2 , PO2ART , PO2 , POCHCO3 , AIN9ENO , HCO3 , NBEA , PBEA , BEART , BE , THGBART , THB , VKA9JEF , NTFE6PPZ , H1ISPHCY , O2SAT , FIO2 No results found [...] versus home with home care with daughter. manager strategic development to follow. Carol Abreu MD 12/02/2023 9:48 AM Occupational Therapy Facility/Department: [facility] CAR 2- [facility] Occupational Therapy Initial [...] of 6.6. received [address] [facility]. She has not been able to picker and sorter load and unload her medications from prior discharge from [facility]. They were sent to her pharmacy on [...] / Caregiver Present: No General Comment Comments: IGOR ok'd OT renetta this date. 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 [facility] She has not been able to picker and sorter load and unload her medications from prior discharge from [facility]. They were sent to her pharmacy on [...] Reassurance given and PT spoke with DC data processing systems project planner and told pt's concerns. 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 [facility] Office: [phone] Alvin aM DO, Erick Burns DO, Varghese Abreu DO, [...] Lugo MD, Bruce Pozo MD, Aida Montemayor, PROGRAM PROJECT ANALYST, Nereyda Patiño, PROGRAM PROJECT ANALYST, Vito Calabrese, PROGRAM PROJECT ANALYST, Karime Keane, [facility], Halima Mason, PROGRAM PROJECT ANALYST, Carmen Orozco, PROGRAM PROJECT ANALYST, Kathy Flores, PROGRAM PROJECT ANALYST, Farnaz Burgos, PROGRAM PROJECT ANALYST, Maricel Burger, PA-C, Alicia Veliz, PA-C, Olivia Stiles, PROGRAM PROJECT ANALYST, Ying Singleton, PROGRAM PROJECT ANALYST, Vikas Laird, PROGRAM PROJECT ANALYST, Mira Pina, PROGRAM PROJECT ANALYST, Briana Lim, [facility], Shirley Johnson, [facility], Jenny Denise, PROGRAM PROJECT ANALYST, Jasmine Leong, PROGRAM PROJECT ANALYST, Janice Perla, PROGRAM PROJECT ANALYST [facility] IN-PATIENT SERVICE [facility] Progress Note 12/01/2023 3:27 PM Name: Jenny Ewing Acct: [id number] Room: IP Day: 6 Admit Date: 11/25/2023 [...] of 6.6. received 1 unit transfusion at [facility]. She has not been able to picker and sorter load and unload her medications from prior discharge from [facility]. They were sent to her pharmacy on [...] infarction (HCC), COPD (chronic obstructive pulmonary disease) ([facility]), Depression, History of blood transfusion, and Thyroid [...] Hematology: Recent Labs 11/29/23 0920 11/29/23 1608 05/0620311/30/2372911/30/23201212/01/23 0145 12/01/23 1021 WBC 12.2* -- 8.7 [...] interval not displayed. Chemistry: Recent Labs 11/29/2391911/30/2320312/01/23 014 NA 135* 138 137 K 3.3* 4.4 [...] , PHART , PH , POCPCO2 , THT5QAV , PCO2 , POCPO2 , PO2ART , PO2 , POCHCO3 , BYC7TXD , HCO3 , NBEA , PBEA , BEART , BE , THGBART , THB , SSJ8ISW , ZAYI4GBT , D1SKYTPO , O2SAT , FIO2 No results found [...] tomorrow. Carol Abreu MD 12/01/2023 3:27 PM hysician Progress Note Patient - Jenny Ewing Date [...] DATA: Complete Blood Count: Recent Labs 11/29/23 0920 11/29/23 1608 11/30/23 [...] displayed. Last 3 Blood Glucose: Recent Labs 11/29/23 0911/30/2320312/01/23 0145 GLUCOSE 210* 83 79 PT/INR: Lab [...] 1.7 -- -- Liver Function: Recent Labs 11/29/23919 ALT [...] Unable to assess Fluid Accumulation: Mild Extremities Instant Print Operator Strength: Not Performed Nutrition Assessment: Pt started [...] Measures: Height: 160 cm (5' 2.99 ) [place] Body Weight (IBW): 115 lbs (52 kg) [...] Used for Energy Requirements: Admission Energy (kcal/day): 5577-6762 kcals/day Weight Used for Protein Requirements: Admission Protein (g/day): 80 to 100 g/day Method Used for Fluid Requirements: 1 ml/kcal Fluid (ml/day): 0985-9349 mL/day or per MD Nutrition Diagnosis: Inadequate [...] to determine Carla Scott RD, LD Contact: [phone] Images from the original note were not included. [facility] Office: [phone] Alvin Ma DO, Erick Burns DO, Varghese [...] Aida Montemayor CNP, Nereyda Patiño CNP, Vito Calabrese, PROGRAM PROJECT ANALYST, Karime Keane, DNP, Halima Mason, PROGRAM PROJECT ANALYST, Carmen Orozco, PROGRAM PROJECT ANALYST, Kathy Flores, PROGRAM PROJECT ANALYST, Farnaz Burgos, PROGRAM PROJECT ANALYST, Maricel Burger, PAGarrettC, Alicia Veliz, PAGarrettC, Olivia Stiles, PROGRAM PROJECT ANALYST, Ying Singleton, PROGRAM PROJECT ANALYST, Vikas Laird, PROGRAM PROJECT ANALYST, Mira Pina, PROGRAM PROJECT ANALYST, Briana Lim, PROGRAM PROJECT ANALYST, Shirley Johnson, [facility], Jenny Denise, PROGRAM PROJECT ANALYST, Jasmine Leong, PROGRAM PROJECT ANALYST, Janice Perla, PROGRAM PROJECT ANALYST [facility] IN-PATIENT SERVICE [facility] Progress Note 11/30/2023 12:31 PM Name: Jenny Ewing Acct: [id number] Room: Day: 5 Admit Date: 11/25/2023 4:07 AM [...] of 6.6. received 1 unit transfusion at [facility]. She has not been able to picker and sorter load and unload her medications from prior discharge from [facility]. They were sent to her pharmacy on [...] Oral Lunch Continuous Infusions: pantoprazole 8 mg/hr (11/30/23 0552) sodium chloride sodium chloride Stopped (11/30/23 0520) PRN Meds: LORazepam, loperamide, midodrine, melatonin, potassium chloride OR potassium alternative oral replacement OR potassium chloride, magnesium sulfate, sodium chloride, ondansetron OR ondansetron, acetaminophen OR acetaminophen, fentanNYL, albuterol sulfate HFA, hypromellose, sodium chloride, traMADol Data: Past Medical History: has a past medical history of Anxiety, Arthritis, Cerebral artery occlusion with cerebral infarction ([facility]), COPD (chronic obstructive pulmonary disease) (HCC), Depression, [...] 2599.25 ml Labs: Hematology: Recent Labs 11/29/23 0920 11/29/23 1608 11/29/23201511/30/23 0204 11/30/23 0730 WBC 12.2* [...] not displayed. Chemistry: Recent Labs 11/28/23 0334 11/29/23 0920 11/30/23 0204 NA 135* 135* 138 K 3.7 3.3* 4.4 CL 105 103 108* CO2 21 23 26 GLUCOSE 88 210* 83 BUN 10 9 12 CREATININE 0.3* 0.4* 0.4* MG -- 1.7 -- ANIONGAP 9 9 4* LABGLOM >90 >90 >90 CALCIUM 6.4* 6.7* 6.6* CAION -- -- 1.07* LACTACIDWB -- -- 0.6* Recent Labs 11/29/23 0911/29/23201511/30/23 0758 TSH -- 9.13* -- AST 27 -- -- ALT 19 -- -- ALKPHOS 45 -- -- BILITOT <0.2 -- -- BILIDIR <0.2 -- -- POCGLU -- -- 79 ABG:No results found for: POCPH , PHART , PH , POCPCO2 , EVW0XNM , PCO2 , POCPO2 , PO2ART , PO2 , POCHCO3 , WPD3NBL , HCO3 , NBEA , PBEA , BEART , BE , THGBART , THB , JKK5ORR , MTJN3ZPK , U4IEPCMV , O2SAT , FIO2 No results found [...] Patient's name: Jenny Ewing Patient's account/billing number: [id number] Patient's Date of : 1950 Age: 73 y.o. Date of Admission: 11/25/2023 4:07 AM Length of stay during current admission: 5 Primary Care Physician: No primary care provider on file. Code Status: Full Code Mode of physician to physician communication: [x] Via telephone [] In person Date and time of sign-out: 11/30/2023 10:16 AM Accepting Internal Medicine NOC ANALYST: Karime Keane Accepting Medicine team: Intermed [...] the floor. Gino Quarles Emergency Medicine Resident [facility] 11/30/2023 10:16 AM INTENSIVE CARE UNIT [...] 80 16 92 % 11/30/23 0500 (!) 91/57 -- -- 73 13 91 % 11/30/23 0430 (!) 89/55 98.4 F (36.9 C) Oral 73 17 92 % 11/30/23 0426 (!) 93/57 98.5 F (36.9 C) Oral 75 18 91 % 11/30/23 0420 (!) 93/57 98.5 F (36.9 C) Oral 70 14 94 % 11/30/23 0400 (!) 81/52 98.7 F (37.1 C) Oral 74 14 92 % 11/30/23 0330 (!) 90/54 -- -- 73 17 92 % 11/30/23 0305 (!) 90/55 98.9 F (37.2 C) Oral 77 16 92 % 11/30/23 0300 (!) 90/55 -- -- 75 14 93 % 11/30/23 0249 (!) 87/49 98.8 F (37.1 C) Oral 76 14 92 % 11/30/23 0200 (!) 91/54 -- -- 83 21 93 % 11/30/23 0100 (!) 89/58 -- -- 91 13 94 % Last [...] Complete Blood Count: Recent Labs 11/29/2391911/29/23 1608 11/29/23201511/30/23 0204 11/30/23 0730 WBC 12.2* [...] displayed. Last 3 Blood Glucose: Recent Labs 11/28/23 0334 11/29/2391911/30/23 0204 GLUCOSE 88 210* 83 PT/INR: Lab Results Component Value Date/Time PROTIME 15.5 11/25/2023 05:02 AM INR 1.2 11/25/2023 05:02 AM PTT: Lab Results Component Value Date/Time APTT 25.5 11/25/2023 05:02 AM Basic Metabolic Profile: Recent Labs 11/28/23 0334 11/29/23 0920 11/30/23 0204 NA 135* 135* 138 K 3.7 3.3* 4.4 CL 105 103 108* CO2 21 23 26 BUN 10 9 12 CREATININE 0.3* 0.4* 0.4* GLUCOSE 88 210* 83 MG -- 1.7 -- Liver Function: Recent Labs 11/29/23 0920 [...] Bank Sample Expiration 11/28/2023,2359 Arm Band Number [id number] ABO/Rh A POSITIVE Antibody Screen NEGATIVE Unit Number [id number] Component Leukocyte Reduced Red Cell Unit Divison 00 Dispense Status Blood Bank TRANSFUSED Unit Issue Date/Time [id number] Product Code Blood Bank [id number] Blood Bank Unit Type and Rh A POS Blood Bank ISBT Product Blood Type 6200 Blood Bank Blood Product Expiration Date Transfusion Status OK TO TRANSFUSE Crossmatch Result COMPATIBLE Unit Number [id number] Component Leukocyte Reduced Red Cell Unit Divison 00 Dispense Status Blood Bank TRANSFUSED Unit Issue Date/Time [id number] Product Code Blood Bank V5788I14 Blood Bank Unit Type and Rh A POS Blood Bank ISBT Product Blood Type 6200 Blood Bank Blood Product Expiration Date Transfusion Status OK TO TRANSFUSE Crossmatch Result COMPATIBLE Unit Number [id number] Component Leukocyte Reduced Red Cell Unit Divison 00 Dispense Status Blood Bank TRANSFUSED Unit Issue Date/Time [id number] Product Code Blood Bank [id number] Blood Bank Unit Type and Rh A POS Blood Bank ISBT Product Blood Type 6200 Blood Bank Blood Product Expiration Date Transfusion Status OK TO TRANSFUSE Crossmatch Result COMPATIBLE TYPE AND SCREEN Result Value Ref Range Blood Bank Sample Expiration 12/02/2023,2350 Arm Band Number [id number] ABO/Rh A POSITIVE Antibody Screen NEGATIVE Unit Number [id number] Component Leukocyte Reduced Red Cell Unit Divison 00 Dispense Status Blood Bank TRANSFUSED Unit Issue Date/Time 366622953024 Product Code Blood Bank [id number] Blood Bank Unit Type and Rh A POS Blood Bank ISBT Product Blood Type 6200 Blood Bank Blood Product Expiration Date Transfusion Status OK TO TRANSFUSE Crossmatch Result COMPATIBLE Unit Number [id number] Component Leukocyte Reduced Red Cell Unit Divison 00 Dispense Status Blood Bank TRANSFUSED Unit Issue Date/Time 289916106057 Product Code Blood Bank [id number] Blood Bank Unit Type and Rh A POS Blood Bank ISBT Product Blood Type 6200 Blood Bank Blood Product Expiration Date Transfusion Status OK TO TRANSFUSE Crossmatch Result COMPATIBLE Unit Number [id number] Component Leukocyte Reduced Red Cell Unit Divison 00 Dispense Status Blood Bank ISSUED Unit Issue Date/Time [id number] Product Code Blood Bank [id number] Blood Bank Unit Type and Rh A [...] Disposition: Patient is appropriate for transfer to stepdown, continued evaluation By GI. DISPOSITION: [] To [...] degrees Ulcer prophylaxis: [x] PPI Agent, [] H0Rvcuh, [] Sucralfate, [] Other: Glycemic control: Controlled Spontaneous breathing trial: Not indicated Bowel regimen/urine output: Continue to monitor Indwelling catheter/lines: Bilateral peripheral IV De-escalation: Transfer to stepdown Gino Quarles DO Emergency Medicine Resident 11/30/23 8:15 AM Associated attestation - Arnaud Bryant MD - 11/30/2023 8:08 PM EDT Attending Physician Statement I have discussed the case of Jenny Ewing, including pertinent history and exam findings with the resident/fellow/medical student/NOC ANALYST/PA. I have seen and examined the patient and the jiménez elements of the encounter have been performed by me. I agree with the assessment, plan and orders as documented by the resident/fellow/medical student/NOC ANALYST/PA With changes made to the note [...] H&P Arnaud Bryant MD 11/30/2023 8:08 PM [facility] G[facility] Progress Note Jenny Ewing is a [...] Labs and Imaging: CBC: Recent Labs 11/29/23 0920 11/29/23 1608 11/29/23 2016 11/30/23 0204 11/30/23 0730 WBC 12.2* -- -- 8.7 -- HGB 6.2* 6.0* 7.8* 6.2* 8.3* MCV 102.5 -- -- 98.0 -- RDW 19.0* -- -- 17.1* -- PLT 245 -- -- 171 -- ANEMIA STUDIES: No results for input(s): TIBC , FERRITIN , [id number] , FOLATE , OCCULTBLD in the last 72 hours. Invalid input(s): LABIRON BMP: Recent Labs 11/28/23 0334 11/29/23 0920 11/30/23 0204 NA 135* 135* 138 K 3.7 3.3* 4.4 CL 105 103 108* CO2 21 23 26 BUN 10 9 12 CREATININE 0.3* 0.4* 0.4* GLUCOSE 88 210* 83 CALCIUM 6.4* 6.7* 6.6* MG -- 1.7 -- LFTS: Recent Labs 11/29/23 09 ALKPHOS 45 ALT 19 AST 27 BILITOT [...] contact me with any questions or concerns. [facility] Gastroenterology Omar Jarrell APRN - PROGRAM PROJECT ANALYST [phone] 11/30/2023 7:54 AM Estimated time of 20 [...] Care Planning Advance Care Planning Inpatient Note [facility] Department Today's Date: 11/29/2023 Unit: [facility] Received request from HealthCare Provider. Upon review [...] Planning Documents (Patient Wishes): Healthcare Power of Copper Tapper/Advance Directive Appointment of Health Care Agent Assessment: [...] need for IR intervention. All calls through [employer] would ring but unable to be connected. [...] from the original note were not included. [facility] Office: [phone] Alvin Ma DO, Erick Burns DO, Varghese Abreu DO, Randy Zelaya DO, Raz Monzon MD, Tiara Quintana MD, Lianet Murcia MD, Nicolle Cardoso MD, Ray De La Cruz MD, Kathi Ibanez MD, Diana Joseph MD, Yoselin De La Paz, DO, Osvaldo Cortes MD, Patrick Mcbride MD, Jesus Ma, DO, Amira King MD, Grabiel Benedict, DO, Rubi Frias MD, Teresa Queen MD, Susan Collins MD, Carol Abreu MD, Ehsan Palacio MD, Elma Tejada MD, Elgin Young MD, Kelsie Oneill MD, Klaus Yeung MD, Deanna Coyle MD, Carlos Jaquez, DO, Reynaldo Hameed DO, Jie Lugo MD, Bruce Pozo MD, Aida Montemayor, PROGRAM PROJECT ANALYST, Nereyda Patiño, PROGRAM PROJECT ANALYST, Vito Calabrese, PROGRAM PROJECT ANALYST, Karime Keane, DNP, Halima Mason, PROGRAM PROJECT ANALYST, Carmen Orozco, PROGRAM PROJECT ANALYST, Kathy Flores, PROGRAM PROJECT ANALYST, Farnaz Burgos, PROGRAM PROJECT ANALYST, Maricel Burger PAGarrettC, Alicia Veliz PAGarrettC, Olivia Stiles, PROGRAM PROJECT ANALYST, Ying Singleton, PROGRAM PROJECT ANALYST, Vikas Laird, PROGRAM PROJECT ANALYST, Mira Pina, PROGRAM PROJECT ANALYST, Briana Lim, PROGRAM PROJECT ANALYST, Shirley Johnson, CAMERA SYSTEMS ENGINEER, Jenny Denise, PROGRAM PROJECT ANALYST, Jasmine Leong, PROGRAM PROJECT ANALYST, Janice Perla, PROGRAM PROJECT ANALYST [facility] IN-PATIENT SERVICE [facility] Progress Note 11/29/2023 9:01 AM Name: Jenny Ewing Acct: [id number] Room: [facility]/0431-01 Day: 4 Admit Date: 11/25/2023 4:07 AM [...] of 6.6. received 1 unit transfusion at [facility]. She has not been able to picker and sorter load and unload her medications from prior discharge from [facility]. They were sent to her pharmacy on [...] output data in the 24 hours ending 11/29/23 0901 Labs: Hematology: Recent Labs 11/27/23200811/27/23211011/28/23 0334 HGB 5.9* 5.7* 7.5* HCT 18.0* 17.9* 24.0* Chemistry: Recent Labs 11/27/23 0354 11/28/23 0334 NA 134* 135* K 3.4* 3.7 CL 105 105 CO2 22 21 GLUCOSE 83 88 BUN 7* 10 CREATININE 0.4* 0.3* MG 1.9 -- ANIONGAP 7* 9 LABGLOM >90 >90 CALCIUM 6.3* 6.4* No results for input(s): PROT , LABALBU , LABA1C , H2BBIUW , H1YGCYG , FT4 , TSH , AST , ALT , LDH , GGT , ALKPHOS , BILITOT , BILIDIR , AMMONIA , AMYLASE , LIPASE , LACTATE , CHOL , HDL , CHOLHDLRATIO , TRIG , VLDL , TEK85EK , PHENYTOIN , PHENYF , URICACID , POCGLU in the last 72 hours. Invalid input(s): LABGGT , LDLCHOLESTEROL ABG:No results found for: POCPH , PHART , PH , POCPCO2 , EXV2KVY , PCO2 , POCPO2 , PO2ART , PO2 , POCHCO3 , LCK4QCY , HCO3 , NBEA , PBEA , BEART , BE , THGBART , THB , MEH2USC , ESPX1YGB , W6WUKWKH , O2SAT , FIO2 No results found [...] Patient was having increased bouts of diarrhea. NOC ANALYST notified. Imodium ordered. Images from the original note were not included. [facility] Office: [phone] Alvin Ma DO, Erick Burns DO, Varghese [...] Lugo MD, Bruce Pozo MD, Aida Montemayor, PROGRAM PROJECT ANALYST, Nereyda Patiño, PROGRAM PROJECT ANALYST, Vito Calabrese, PROGRAM PROJECT ANALYST, Karime Keane, [facility], Halima Mason, PROGRAM PROJECT ANALYST, Carmen Orozco, PROGRAM PROJECT ANALYST, Kathy Flores, PROGRAM PROJECT ANALYST, Farnaz Burgos, PROGRAM PROJECT ANALYST, Maricel Burger, PAGarrettC, Alicia Veliz, PAGarrettC, Olivia Stiles, PROGRAM PROJECT ANALYST, Ying Singleton, PROGRAM PROJECT ANALYST, Vikas Laird, PROGRAM PROJECT ANALYST, Mira Pina, PROGRAM PROJECT ANALYST, Briana Lim, PROGRAM PROJECT ANALYST, Shirley Johnson, [facility], Jenny Denise, PROGRAM PROJECT ANALYST, Jasmine Leong, PROGRAM PROJECT ANALYST, Janice Perla, PROGRAM PROJECT ANALYST [facility] IN-PATIENT SERVICE [facility] Progress Note 11/28/2023 9:54 AM Name: Jenny Ewing Acct: [id number] Room: 0431/0431-01 Day: 3 Admit Date: 11/25/2023 [...] of 6.6. received 1 unit transfusion at [facility]. She has not been able to picker and sorter load and unload her medications from prior discharge from [facility]. They were sent to her pharmacy on [...] this interval not displayed. Chemistry: Recent Labs 11/26/23 0307 11/27/23 0354 11/28/23 0334 NA 140 134* 135* K 3.4* 3.4* 3.7 CL 112* 105 105 CO2 17* 22 21 GLUCOSE 82 83 88 BUN 9 7* 10 CREATININE 0.3* 0.4* 0.3* MG 1.5* 1.9 -- ANIONGAP 11 7* 9 LABGLOM >90 >90 >90 CALCIUM 6.3* 6.3* 6.4* No results for input(s): PROT , LABALBU , LABA1C , C0FCBXB , L0ZGFYN , FT4 , TSH , AST , ALT , LDH , GGT , ALKPHOS , BILITOT , BILIDIR , AMMONIA , AMYLASE , LIPASE , LACTATE , CHOL , HDL , CHOLHDLRATIO , TRIG , VLDL , RNQ93AF , PHENYTOIN , PHENYF , URICACID , POCGLU in the last 72 hours. Invalid input(s): LABGGT , LDLCHOLESTEROL ABG:No results found for: POCPH , PHART , PH , POCPCO2 , AOW0JQH , PCO2 , POCPO2 , PO2ART , PO2 , POCHCO3 , XKY0REH , HCO3 , NBEA , PBEA , BEART , BE , THGBART , THB , AKG5UAM , UXJZ3AZW , C5YJYDTT , O2SAT , FIO2 No results found [...] IMPLEMENT AEROSOL/MDI PROTOCOL [x] PATIENT EDUCATION NEEDED [facility] Gastroenterology Progress Note Jenny Ewing is a [...] the chart review patient initially presented to [facility] with a complaint of fall secondary to fatigue and feeling weak, during that time the EMS noticed that patient is having black-colored stools the workup done in the outlying facility ruled out any stroke and patient did not hit her head when she fell as well. Labs in the [facility] are consistent with critically low hemoglobin about 4.8 g where she received 1 unit of transfusion later transferred to the [facility] for further evaluation. Patient is admitted [...] paper charts the patient has been to [facility] 10 days back for GI bleed. They have done EGD and found duodenal ulcer and was clipped. She was not able to picker and sorter load and unload her medications after the discharge from the [facility]. VITALS: BP 128/64 Pulse (!) 117 [...] 0958 11/25/23 1756 11/27/23 0354 11/27/23 1028 11/27/23200811/27/23211011/28/23 0334 WBC 9.5 -- -- -- -- -- -- HGB 5.8* < > 7.2* 7.2* 5.9* 5.7* 7.5* MCV 102.1 -- -- -- -- -- -- RDW 19.9* -- -- -- -- -- -- PLT 186 -- -- -- -- -- -- < > = values in this interval not displayed. ANEMIA STUDIES: No results for input(s): TIBC , FERRITIN , PPGKDTTM22 , FOLATE , OCCULTBLD in the last [...] contact me with any questions or concerns. [facility] Gastroenterology Abhishek Bryant MD [phone] 11/28/2023 7:45 AM Estimated time of mins [...] from the original note were not included. [facility] Office: [phone] Alvin Ma DO, Erick Burns DO, Varghese [...] Aida Montemayor CNP, Nereyda Patiño CNP, Vito Calabrese, PROGRAM PROJECT ANALYST, Karime Keane, AAYUSH, Halima Mason, PROGRAM PROJECT ANALYST, Carmen Orozco, PROGRAM PROJECT ANALYST, Kathy Flores, PROGRAM PROJECT ANALYST, Farnaz Burgos, PROGRAM PROJECT ANALYST, ARTUR ColonC, ARTUR RodriguezC, Olivia Stiles, PROGRAM PROJECT ANALYST, Ying Singleton, PROGRAM PROJECT ANALYST, iVkas Laird, PROGRAM PROJECT ANALYST, Mira Pina, PROGRAM PROJECT ANALYST, Briana Lim, PROGRAM PROJECT ANALYST, Shirley Johnson, CAMERA SYSTEMS ENGINEER, Jenny Denise, PROGRAM PROJECT ANALYST, Jasmine Leong, PROGRAM PROJECT ANALYST, Janice Perla CNP [facility] IN-PATIENT SERVICE [facility] Progress Note 11/27/2023 9:39 AM Name: Jenny Ewing Acct: [id number] Room: 0431/0431-01 Day: 2 Admit Date: 11/25/2023 4:07 AM [...] of 6.6. received 1 unit transfusion at [facility]. She has not been able to picker and sorter load and unload her medications from prior discharge from [facility]. They were sent to her pharmacy on [...] input(s): PROT , LABALBU , LABA1C , Q3CGROA , I7LBOQF , FT4 , TSH , AST , ALT , LDH , GGT , ALKPHOS , BILITOT , BILIDIR , AMMONIA , AMYLASE , LIPASE , LACTATE , CHOL , HDL , CHOLHDLRATIO , TRIG , VLDL , JVG41KT , PHENYTOIN , PHENYF , URICACID , POCGLU in the last 72 hours. Invalid input(s): LABGGT , LDLCHOLESTEROL ABG:No results found for: POCPH , PHART , PH , POCPCO2 , CKF1LOT , PCO2 , POCPO2 , PO2ART , PO2 , POCHCO3 , RPK4LVL , HCO3 , NBEA , PBEA , BEART , BE , THGBART , THB , VQC7GBS , SEIB0HZB , H1ZFYODL , O2SAT , FIO2 No results found [...] nightly Deanna Coyle MD 11/27/2023 9:39 AM [facility] Gastroenterology Progress Note Jenny Ewing is a [...] the chart review patient initially presented to [facility] with a complaint of fall secondary to fatigue and feeling weak, during that time the EMS noticed that patient is having black-colored stools the workup done in the outlying facility ruled out any stroke and patient did not hit her head when she fell as well. Labs in the [facility] are consistent with critically low hemoglobin about 4.8 g where she received 1 unit of transfusion later transferred to the [facility] for further evaluation. Patient is admitted [...] paper charts the patient has been to [facility] 10 days back for GI bleed. They have done EGD and found duodenal ulcer and was clipped. She was not able to picker and sorter load and unload her medications after the discharge from the [facility]. VITALS: BP 116/69 Pulse 77 Temp [...] not displayed. ANEMIA STUDIES: Recent Labs 11/25/23 0502 TIBC 205* BMP: Recent Labs 11/25/23 0502 11/26/23 0307 11/27/23 [...] contact me with any questions or concerns. 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 PMH significant for GERD. Pt s/p EGD with duodenal ulcer repair (11/24). 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 Per pt, believes she had a 20 lb wt loss in that time. Per chart, no wt loss observed, pt with steady wt gain x 10 mos. Pt currently NPO, if diet advanced pt is agreeable to ONS, prefers Gonzalez Clear, agreeable to chocoalte, vanilla, strawberry Ensure. Per pt NKFA. LBM 11/25. +2 RLE, +1 LLE edema noted. Nutrition Related Findings: Labs/meds reviewed Wound Type: None Current Nutrition Intake & Therapies: Average Meal Intake: NPO Average Supplements Intake: NPO Diet NPO Exceptions are: Ice Chips, Sips of Water with Meds Anthropometric Measures: Height: 160 cm (5' 2.99 ) [place] Body Weight (IBW): 115 lbs (52 kg) [...] Rocha MS, RD, LD Contact: Floor Desk Weekend Images from the original note were not included. [facility] Office: [phone] Alvin Ma DO, Erick Burns DO, Varghese Abreu DO, Randy Zelaya, DO, Raz Monzon MD, Tiara Quintana MD, [...] Pozo MD, Aida Montemayor, OSVALDO, Nereyda Patiño PROGRAM PROJECT ANALYST, Vito Calabrese, PROGRAM PROJECT ANALYST, Karime Keane, DNP, Halima Mason, PROGRAM PROJECT ANALYST, Carmen Orozco, PROGRAM PROJECT ANALYST, Kathy Flores, PROGRAM PROJECT ANALYST, Farnaz Burgos, PROGRAM PROJECT ANALYST, Maricel Burger, PA-C, Alicia Veliz PA-C, Olivia Stiles, PROGRAM PROJECT ANALYST, Ying Singleton, PROGRAM PROJECT ANALYST, Vikas Laird, PROGRAM PROJECT ANALYST, Mira Pina, PROGRAM PROJECT ANALYST, Briana Lim, PROGRAM PROJECT ANALYST, Shirley Johnson, CAMERA SYSTEMS ENGINEER, Jenny Denise, PROGRAM PROJECT ANALYST, Jasmine Leong, PROGRAM PROJECT ANALYST, Janice Perla, PROGRAM PROJECT ANALYST [facility] IN-PATIENT SERVICE [facility] Progress Note 11/26/2023 11:14 AM Name: Jenny Ewing Acct: [id number] Room: 0431/0431-01 Day: 1 Admit Date: 11/25/2023 4:07 AM [...] of 6.6. [facility] She has not been able to picker and sorter load and unload her medications from prior discharge from [facility]. They were sent to her pharmacy on [...] Chemistry: Recent Labs 11/25/23 0502 11/26/23 0307 NA 138 140 K 3.6* 3.4* CL 108* 112* CO2 23 17* GLUCOSE 81 82 BUN 13 9 CREATININE 0.4* 0.3* MG -- 1.5* ANIONGAP 7* 11 LABGLOM >90 >90 CALCIUM 6.6* 6.3* No results for input(s): PROT , LABALBU , LABA1C , S8FTXWE , D5GVGDX , FT4 , TSH , AST , ALT , LDH , GGT , ALKPHOS , BILITOT , BILIDIR , AMMONIA , AMYLASE , LIPASE , LACTATE , CHOL , HDL , CHOLHDLRATIO , TRIG , VLDL , MHN22RE , PHENYTOIN , PHENYF , URICACID , POCGLU in the last 72 hours. Invalid input(s): LABGGT , LDLCHOLESTEROL ABG:No results found for: POCPH , PHART , PH , POCPCO2 , LTL7KFP , PCO2 , POCPO2 , PO2ART , PO2 , POCHCO3 , ZJP4HYC , HCO3 , NBEA , PBEA , BEART , BE , THGBART , THB , OEO3MBX , JSVO1BJS , D6NIVXDG , O2SAT , FIO2 No results found [...] Midodrine Deanna Coyle MD 11/26/2023 11:14 AM [facility] Gastroenterology Progress Note Jenny Ewing is a [...] the chart review patient initially presented to [facility] with a complaint of fall secondary to fatigue and feeling weak, during that time the EMS noticed that patient is having black-colored stools the workup done in the outlying facility ruled out any stroke and patient did not hit her head when she fell as well. Labs in the [facility] are consistent with critically low hemoglobin about 4.8 g where she received 1 unit of transfusion later transferred to the [facility] for further evaluation. Patient is admitted [...] paper charts the patient has been to [facility] 10 days back for GI bleed. They have done EGD and found duodenal ulcer and was clipped. She was not able to picker and sorter load and unload her medications after the discharge from the [facility]. VITALS: BP 108/61 Pulse 78 Temp [...] contact me with any questions or concerns. [facility] Gastroenterology Abhishek Malina Bryant MD [phone] 11/26/2023 8:00 AM Estimated time of mins [...] new orders. documented in this encounter [facility] 12-02-2023 Hospital Discharge instructions Corinna Schmidt RN - 12/02/2023 9:46 AM EDT Continuity of Care Form Patient Name: Jenny Ewing : 1950 Admit date: 11/25/2023 Discharge date: 12/03/2023 Code Status Order: Full Code Advance Directives: Advance Care Flowsheet Documentation Date/Time Healthcare Directive Type of Healthcare Directive Copy in Chart Healthcare Agent Appointed Healthcare Agent's Name Healthcare Agent's Phone Number 12/01/23 0718 No, patient does not have an advance directive for healthcare treatment -- -- -- -- -- 11/25/23 1429 No, patient does not have an advance directive for healthcare treatment -- -- -- -- -- Admitting Physician: No admitting provider for patient encounter. PCP: No primary care provider on file. 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 No Past Surgical History: Past Surgical History: Procedure Laterality Date SECTION x2 CHOLECYSTECTOMY COLONOSCOPY ENDOSCOPY, COLON, DIAGNOSTIC ESOPHAGOGASTRODUODENOSCOPY N/A 11/25/2023 ESOPHAGOGASTRODUODENOSCOPY 12/01/2023 EYE SURGERY FRACTURE SURGERY HYSTERECTOMY (CERVIX STATUS UNKNOWN) IR EMBOLIZATION HEMORRHAGE 11/27/2023 IR EMBOLIZATION HEMORRHAGE 11/27/2023 Jorge Russo MD [facility] SPECIAL PROCEDURES SKIN BIOPSY UPPER GASTROINTESTINAL ENDOSCOPY N/A 11/25/2023 *ADD ON* ESOPHAGOGASTRODUODENOSCOPY control hemorrhage performed by Nicky Ugarte MD at [facility] OR Immunization History: Immunization History Administered [...] Assisted Dressing Assisted Toileting Assisted Feeding Assisted Reed Maker Assisted Med Delivery whole Wound Care Documentation [...] NOT a DME order): walker Other Treatments: jail, pt would like to speak with her social work program coordinator from [facility] office was closed on attempt 12/02 Patient's personal belongings (please select all that are sent with patient): Glasses RN SIGNATURE: CASE MANAGEMENT/SOCIAL WORK SECTION Inpatient Status Date: Readmission Risk Assessment Score: Readmission Risk Risk of Unplanned Readmission: 11 Discharging to Facility/ Agency Name: [facility] Address: Phone: Fax: Truck Driver/National Account Executive signature: PHYSICIAN SECTION Prognosis: Good Condition at Discharge: Stable Rehab Potential (if transferring to Rehab): Good Recommended Labs or Other Treatments After Discharge: Continue PT OT. Monitor hemoglobin follow-up with PCP and GI. CBC 03/05/2024 Physician Certification: I certify the above information and transfer of Jenny Ewing is necessary for the continuing treatment of the diagnosis listed and that she requires jail facility for less 30 days. Update Admission H&P: No change in H&P PHYSICIAN SIGNATURE: documented in this encounter [facility] 11-28-2023 Note PROCEDURE: IR EMBOLIZATION VASCULAR ANY HEMORRHAGE 11/27/2023 HISTORY: ORDERING SYSTEM PROVIDED HISTORY: Embolization of GDA/GI bleed TECHNOLOGIST PROVIDED HISTORY: Embolization of GDA/GI bleed CONTRAST: Isovue 370-110 mL SEDATION: Fentanyl 50 mcg IV for discomfort. Medications were provided and recorded by Radiology nurses. FLUOROSCOPY DOSE AND TYPE: Fluoroscopy time-15.7 minutes. Radiation Exposure Index: DAP cGy*m2, 70217 DESCRIPTION OF PROCEDURE: Arteries interrogated: Celiac, GDA, [...] for a 0.035 inch wire and 5 [place] introducer sheath. Randal 5 [place] x 65 cm catheter was introduced and the celiac artery catheterize; hand celiac angiography was performed. A 0.035 inch glidewire was manipulated into the distal hepatic arteries, catheter exchanged for a 5 [place] Cobra glide catheter which was manipulated into the origin GDA. Digital angiography was then performed. [employer] delivery microcatheter 45 degree tip was then [...] removed. Subsequent hand injection via the 5 [place] catheter the proper hepatic was performed. The guide catheter was removed, and the Randal catheter reinserted. Celiac and SMA digital angiography were then performed. The Randal catheter was removed. Hand digital angiography right iliofemoral vessels was performed at the groin. The right groin was re-prepped, and a 5 [place] Vascade closure device was deployed right PIPING MANAGER. The patient tolerated procedure well and [...] or site of bleeding identified. Normal right PIPING MANAGER entry site pre closure device placement. 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 Interpreted by: Jorge Russo MD Signed by: Jorge Russo MD 11/28/23 Final result [facility] 11-28-2023 Note PROCEDURE: IR EMBOLIZATION VASCULAR ANY HEMORRHAGE 11/27/2023 HISTORY: ORDERING SYSTEM PROVIDED HISTORY: Embolization of GDA/GI bleed TECHNOLOGIST PROVIDED HISTORY: Embolization of GDA/GI bleed CONTRAST: Isovue 370-110 mL SEDATION: Fentanyl 50 mcg IV for discomfort. Medications were provided and recorded by Radiology nurses. FLUOROSCOPY DOSE AND TYPE: Fluoroscopy time-15.7 minutes. Radiation Exposure Index: DAP cGy*m2, 82310 DESCRIPTION OF PROCEDURE: Arteries interrogated: Celiac, GDA, [...] for a 0.035 inch wire and 5 [place] introducer sheath. Randal 5 [place] x 65 cm catheter was introduced and the celiac artery catheterize; hand celiac angiography was performed. A 0.035 inch glidewire was manipulated into the distal hepatic arteries, catheter exchanged for a 5 [place] Cobra glide catheter which was manipulated into the origin GDA. Digital angiography was then performed. [place] delivery microcatheter 45 degree tip was then [...] removed. Subsequent hand injection via the 5 [place] catheter the proper hepatic was performed. The guide catheter was removed, and the Randal catheter reinserted. Celiac and SMA digital angiography were then performed. The Randal catheter was removed. Hand digital angiography right iliofemoral vessels was performed at the groin. The right groin was re-prepped, and a 5 [place] Vascade closure device was deployed right PIPING MANAGER. The patient tolerated procedure well and [...] or site of bleeding identified. Normal right PIPING MANAGER entry site pre closure device placement. [facility] 11-20-2023 Progress note Note Date/Time November 20, 2023 11:40am [facility] [address] [place] [address] Hospitalist Progress Note Signed Patient: Jenny Ewing MR#: [id number] : 1950 Acct:[id number] Age/Sex: 73 / F Adm Date: 4 Loc: Room: [address] [place] [address] Type: ADM IN Attending Dr: Jaspal Whalen [...] 18 101/56 L 96 Room Air 2 04/26/24 04:00 11/20/23 09:19 11/20/23 09:19 11/20/23 04:00 [...] \ Documented By: Jaspal Whalen MD 11/20/23 1133 Signed By: <Electronically signed by Jaspal Whalen MD> 11/20/23 1140 [facility] Work Phone: 1(338) 600-974304-25-2024 Progress note Author Frantz Nieves [facility] November 19, 2023 1:51pm Note Date/Time November 19, 2023 11: 13am [facility] [address] [place] [address] Hospitalist Progress Note Signed Patient: Jenny Ewing MR#: [id number] : 1950 Acct:[id number] Age/Sex: 73 / F Adm Date: 4 Loc: Room: [address] [place] [address] Type: ADM IN Attending Dr: Frantz Nieves [...] Ampul.Neb INHALATION 11/16/24 21:59 3 ml TID MRAION Administration Baclofen 10 mg 11/17/23 17:30 11/19/23 [...] 11/18/23 09:00 11/19/23 09:39 Duloxetine 20 Mg Capsule. PO 11/17/24 08:59 [...] to 7.1 ? 2 units PRBC at [place], prior to transfer here, received another 2 [...] signed by DO DENISE Mckeon> 11/19/23 1113 [facility] Work Phone: 1(364) 582-905104-25-2024 Progress note Author Seun Freitas [facility] November 19, 2023 9:54am Note Date/Time November 19, 2023 9:5 4am [facility] [address] [place] [address] Gastroenterology PN Signed Patient: Jenny Ewing MR#: [id number] : 1950 Acct:[id number] Age/Sex: 73 / F Adm Date: 4 Loc: Room: [address] [place] [address] Type: ADM IN Attending Dr: Frantz Nieves [...] 11/18/23 09:00 11/19/23 09:39 Duloxetine 20 Mg Capsule. PO 11/17/24 08:59 [...] signed by Seun Freitas MD> 11/19/23 0954 [facility] Work Phone: 1(884) 101-957204-24-2024 [facility] Progress note Author Frantz Nieves [facility] November 18, 2023 10:04am Note Date/Time November 18, 2023 10: 04am [facility] [address] [place] [address] Hospitalist Progress Note Signed Patient: Jenny Ewing MR#: [id number] : 1950 Acct:[id number] Age/Sex: 73 / F Adm Date: 4 Loc: Room: [address] [place] [address] Type: ADM IN Attending Dr: Frantz Nieves [...] 11/18/23 09:00 11/18/23 08:15 Duloxetine 20 Mg Capsule. PO 11/17/24 08:59 [...] 25 Mg Tablet PO 11/17/24 08:59 QAM MARION Tramadol HCl 100 mg 11/17/23 22:00 11/17/23 [...] Signed By: <Electronically signed by Frantz Nieves, DO> 11/18/23 1004 [facility] Work Phone: 1(836) 861-284104-24-2024 Consult note Author Seun [facility] November 18, 2023 9:03am Note Date/Time November 17, 2023 4:1 6pm [facility] [address] [place] [address] Gastroenterology Consult Note Signed Patient: Jenny Ewing MR#: [id number] : 1950 Acct:[id number] Age/Sex: 73 / F Adm Date: 4 Loc: Room: [address] [place] [address] Type: ADM IN Attending Dr: Frantz Nieves [...] negative unless noted below or in HPI [facility] Medical History (Updated 11/18/23 @ 09:03 [...] use + Cigarette smoking Hb: 4.8 at [place] Patient is hemodynamically stable -Trend CBC and transfuse as needed, ensure two large bore IVs at least. -Protonix 40 mg twice daily -Avoid NSAIDs -Goal Hgb >7.0 -Plan for EGD today. Please keep the patient n.p.o. after midnight Documented By: Seun Freitas MD 11/17/23 1612 Signed By: <Electronically signed by Seun Freitas MD> 11/18/23 0903 [facility] Work Phone: 1(254) 476-493404-23-2024 History and physical note Author Frantz Nieves [facility] November 17, 2023 6:33pm Note Date/Time November 17, 2023 3:5 9pm [facility] [address] [place] [address] Hospitalist H&P Signed Patient: Jenny Ewing MR#: [id number] : 1950 Acct:[id number] Age/Sex: 73 / F Adm Date: 4 Loc: 3T Room: [address] [place] [address] Type: ADM IN Attending Dr: Frantz Nieves DO Copies to: Dale Mckeon DO, RES MD Frantz Wyman, ~ HPI DATE OF EXAMINATION: 11/17/23 CHIEF COMPLAINT: Anemia HISTORY OF PRESENT ILLNESS: 73-year-old female transferred from [facility] for severe anemia. 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 Thismorning the patient had acute episode of weakness in her lower extremities afterwhich she fell and hit the back of her neck and head without LOC. She was brought to the [place] ED by EMS. CT head, brain, and [...] mg Protonix. She was then transferred to [facility] for further workup of anemia and [...] x3, normal speech, appropriate mood and affect [facility] Medical History (Updated 11/17/23 @ 16:10 [...] (6) Weakness: Plan 73-year-old female transferred from [facility] for severe anemia, weakness, and GI [...] GI bleed. Received 2 units PRBC at [place], 500 mL NS, ?Recheck H&H ?Continue Protonix [...] less than 7.0, please transfuse. - Frantz Nieves DO IP vs OBS Justification Based on [...] signed by DO DENISE Mckeon> 11/17/23 1623 [facility] Work Phone: 1(339) 524-540801-30-2024 History of Present illness Narrative* Catracho Sheriff [...] - 301 mOsmol/kg Final Comment: Performed at: - [address] [id number] Collection Card Clerk: Arleen Wong MD, Phone: [phone] OSMOLALITY, URINE 08/11/2023 552 . mOsmol/kg Final Comment: 24 hr : 300 - 900 Random: 50 - 1400 After 12hr fluid restriction: >850 Performed at: [facility] [address] [id number] Collection Card Clerk: Arleen Wong MD, Phone: [phone] [employer] Result Encounter on 08/04/2023 Component Date [...] 0.55 - 1.02 mg/dL Final TBH EGFR-AF [place] 08/04/2023 >60 >=60 Final TBH EGFR-NON AF [place] 08/04/2023 >60 >=60 Final BUN CREATININE RATIO [...] renewal of their medication. (Utilizing the original guidelines or the 2020 new office/outpatient code [...] this encounter[facility] HealthcareDischarge summary Author Jaspal Whalen [facility] November 21, 2023 1:44pm Note Date/Time November 21, 2023 1:4 4pm [facility] [address] [place] [address] Discharge Summary Signed Patient: Jenny Ewing MR#: [id number] : 1950 Acct:[id number] Age/Sex: 73 / F Adm Date: 4 Loc: Room: [address] [place] [address]: Jaspal Whalen MD Copies to: [...] female, who was transferred to us from [facility], where she presented with weakness [...] signed by Jaspal Whalen MD> 11/21/23 1344 [facility] Work Phone: Evaluation note* Diagnosis Chronic pain syndrome- Primary Chronic respiratory failure with hypoxia (CMS/HCC) Dependence on supplemental oxygen Stasis dermatitis of both legs Arthritis of both knees documented in this encounter [facility] HealthcareEvaluation note* Diagnosis Onset Date Resolution Status Acute anemia acute Duodenal ulcer acute Excessive use of nonsteroida l anti-inflammatory drugs (NSAIDs) acute GI bleed acute Macrocytosis acute Tobacco abuse acute Weakness acute Weight loss, unintentional a cute [facility] Work Phone: Evaluation note* Diagnosis GI [...] Tobacco use disorder PAF (paroxysmal atrial fibrillation) ([facility]) Atrial fibrillation documented in this encounter [email or web address] HEAL[facility] note* Diagnosis Duodenal ulcer Duodenal ulcer, unspecified as acute or chronic, without hemorrhage, perforation, or obstruction documented in this encounter [facility]* Diagnosis Venous stasis ulcer of other part of lower leg limited to breakdown of skin without varicose veins, unspecified laterality ([facility]/HCC)- Primary Cellulitis of lower extremity, unspecified laterality Venous stasis dermatitis of both lower extremities documented in this encounter [facility] HealthcareEvaluation note* Diagnosis Stasis dermatitis of both legs- Primary Non-pressure chronic ulcer of right lower leg, limited to breakdown of skin ([facility]/HCC) Postsurgical hypothyroidism ([facility]) Postsurgical hypothyroidism Acute anemia Hypokalemia Hypopotassemia Chronic pain syndrome documented in this encounter [facility] HealthcareEvaluation note* Diagnosis Cellulitis of lower extremity, unspecified laterality- Primary Abscess of left lower leg Venous ulcer of lower extremity due to chronic peripheral venous hypertension (HCC) (CMS/HCC) Non-pressure ulcer of lower extremity, limited to breakdown of skin, unspecified laterality (CMS/HCC) documented in this encounter [facility]* Diagnosis Acquired hypothyroidism (CMS/HCC) Unspecified hypothyroidism documented in this encounter [facility]* Diagnosis Acquired hypothyroidism (CMS/HCC) Unspecified hypothyroidism documented in this encounter [facility]* Diagnosis Mucopurulent chronic bronchitis (CMS/HCC)- Primary Mucopurulent chronic bronchitis documented in this encounter [facility]* Diagnosis Chronic pain syndrome- Primary [...] anxiety disorder documented in this encounter [facility]* Diagnosis Chronic pain syndrome Chronic pain syndrome Spondylosis of lumbar region without myelopathy or radiculopathy Fibromyalgia Unspecified myalgia and myositis Postsurgical hypothyroidism (CMS/HCC) Postsurgical hypothyroidism ESS (euthyroid sick syndrome) Euthyroid sick syndrome Chronic fatigue Other malaise and fatigue Former smoker Personal history of tobacco use, presenting hazards to health Controlled substance agreement signed documented in this encounter [facility] Summary Purpose Family History Relationship Condition Age at Onset Recorded Date/T nelly Not Specified Malignant neoplasm of stomach Unknown brother Malignant neoplasm of colon Unknown Advance Directives Advance Directive Response Recorded Date/ Time Advance Directives No November 16, 2 024 5:27am Latest Code Status on File Code Status Date Activated Date Inactivated Comments Full Code 11/25/2023 4:23 AM Code Status History Code Status Date Activated Date Inactivated Comments Full Code 11/25/2023 12:02 AM 11/25/2023 4:07 AM Healthcare Agents on File Name Relationship Healthcare Agent Relationshi p Communication Pearl Julien Child Primary Decision Maker Radharadha Ventura Friend Secondary Decision Maker Documents on File Type Date Recorded Patient Stoker [employer] Expl anation ACP-Advance Directive 12/04/2023 1:41 PM Latest Code Status on File Code Status Date Activated Date Inactivated Comments Full Code 11/25/2023 4:23 AM 12/03/2023 8:11 PM Healthcare Agents on File Name Relationship Healthcare Agent Relationshi p Communication Pearl Julien Child Primary Decision Maker Radhaavel Ventura Friend Secondary Decision Maker Documents on File Type Date Recorded Patient Stoker [employer] Servicer Expl anation ACP-Advance Directive 12/04/2023 1:41 PM Date Activated Date Inactivated Comments 11/25/2023 4:23 AM 12/03/2023 8:11 PM Date Activated Date Inactivated Comments 11/25/2023 12:02 AM 11/25/2023 4:07 AM Healthcare Agents on File Name Relationship Healthcare Agent Relationshi p Communication Pearl Julien Child Primary Decision Maker Radhaavel Ventura Friend Secondary Decision Maker Healthcare Agents [...] CREATED AUTHOR AUTHOR'S ORGANIZ ATION 11/24/2023 [facility] DATE CREATED AUTHOR AUTHOR'S ORGANIZ ATION 12/11/2023 [facility] DATE CREATED AUTHOR AUTHOR'S ORGANIZ ATION 08/04/2024 [facility] DATE CREATED AUTHOR AUTHOR'S ORGANIZ ATION 10/06/2024 [facility] EPIC Reason for Visit (unrecogniz ed section and content) Reason Comments Recurrent Skin Infections Specialty Diagnoses / Procedures Referred By Contac t Referred To Contact Diagnoses GI bleed GI bleed [address] [place] [address] [employer] [facility] [facility] [address] [place] [address] Referral ID Status Reason Start Date Expiration Date Visits Re quested Visits Authorized [id number] 1 1 Specialty Diagnoses / Procedures Referred By Contac t Referred To Contact Diagnoses Duodenal ulcer Duodenal ulcer [K26.9] Procedures WI EGD TRANSORAL BIOPSY SINGLE/MULTIPLE ESOPHAGOGASTRODUODENOSCOPY BIOPSY Nicky Ugarte MD [address] [place] [address] [employer] [facility] [address] [place] [address] Referral ID Status Reason Start Date Expiration Date Visits Re quested Visits Authorized [id number] 1 1 Reason Comments Wound Check Reason Comments wound check Reason Comments Wound Infection Reason Comments Med Refill Reason Comments Anxiety Pain Care Teams (unrecognized sec tion and content) Product Grader Relationship Specialty Start Date End Date Catracho Sheriff MD [address] [place] [address] PCP - [employer] 07/27/22 Catracho Sheriff MD [address] [facility] [place] [address] PCP - General Family Medicine 01/05/23 Team [...] Other Provider Active Start: November 17, 2023 Product Grader Relationship Specialty Start Date End Date Catracho Sheriff MD [address] [place] [address] PCP - General 01/29/24 Product Grader Relationship Specialty Start Date End Date Catracho Sheriff MD [address] [place] [address] PCP - General 01/29/24 Product Grader Relationship Specialty Start Date End Date Catracho Sheriff MD [address] [place] [address] PCP - [employer] 07/27/22 Catracho Sheriff MD [address] [place] [address] PCP - General Family Medicine 01/05/23 Payal Gaona DO [address] [place] [address] Referring Physician Neurology 09/03/23 Aimee Truong, RN Registered Nurse Family Medicine 12/23/23 Product Grader Relationship Specialty Start Date End Date Catracho Sheriff MD [address] [facility] [place] [address] (Fax) PCP - [employer] 07/27/22 Catracho Sheriff MD [address] [place] [address] PCP - General Family Medicine 01/05/23 Payal Gaona DO [address] [place] [address] Referring Physician Neurology 09/03/23 Aimee Truong, RN Registered Nurse Family Medicine 12/23/23 Product Grader Relationship Specialty Start Date End Date Catracho Sheriff MD [address] [facility] [place] [address] (Fax) PCP - [employer] 07/27/22 Catracho Sheriff MD [address] [place] [address] PCP - General Family Medicine 01/05/23 Payal Gaona DO [address] [place] [address] Referring Physician Neurology 09/03/23 Aimee Truong RN Registered Nurse Family Medicine 12/23/23 Product Grader Relationship Specialty Start Date End Date Catracho Sheriff MD [address] [place] [address] (Fax) PCP - [employer] 07/27/22 Catracho Sheriff MD [address] [place] [address] PCP - General Family Medicine 01/05/23 Payal Gaona DO [address] [place] [address] Referring Physician Neurology 09/03/23 Aimee Truong RN Registered Nurse Family Medicine 12/23/23 Product Grader Relationship Specialty Start Date End Date Catracho Sheriff MD [address] [facility] [place] [place] [address] (Fax) PCP - [employer] 07/27/22 Catracho Sheriff MD [address] [place] [address] PCP - General Family Medicine 01/05/23 Payal Gaona DO [address] [place] [address] Referring Physician Neurology 09/03/23 Aimee Truong RN Registered Nurse Family Medicine 12/23/23 Product Grader Relationship Specialty Start Date End Date Catracho Sheriff MD [address] [facility] [place] [address] (Fax) PCP - [employer] 07/27/22 Catracho Sheriff MD [address] [place] [address] PCP - General Family Medicine 01/05/23 Payal Gaona DO [address] [place] [address] Referring Physician Neurology 09/03/23 Aimee Truong, RN Registered Nurse Family Medicine 12/23/23 Product Grader Relationship Specialty Start Date End Date Catracho Sheriff MD [address] [place] [address] (Fax) PCP - [employer] 07/27/22 Catracho Sheriff MD [address] [place] [address] (Fax) PCP - General Family Medicine 01/05/23 Payal Gaona DO [address] [place] [address] Referring Physician Neurology 09/03/23 Aimee Truong, RN Registered Nurse Family Medicine 12/23/23 Product Grader Relationship Specialty Start Date End Date Catracho Sheriff MD [address] [place] [address] (Fax) PCP - [employer] 07/27/22 Catracho Sheriff MD [address] [place] [address] (Fax) PCP - General Family Medicine 01/05/23 Payal Ganoa DO [address] [place] [address] Referring Physician Neurology 09/03/23 Aimee Truong, IGOR Registered Nurse Family Medicine 12/23/23 Product Grader Relationship Specialty Start Date End Date Catracho Sheriff MD [address] [place] [address] (Fax) PCP - [employer] 07/27/22 Catracho Sheriff MD [address] [place] [address] (Fax) PCP - General Family Medicine 01/05/23 Payal Gaona DO [address] [place] [address] Referring Physician Neurology 09/03/23 Aimee Truong RN Registered Nurse Family Medicine 12/23/23 Product Grader Relationship Specialty Start Date End Date Catracho Sheriff MD [address] [place] [address] (Fax) PCP - [employer] 07/27/22 Catracho Sheriff MD [address] [place] [address] (Fax) PCP - General Family Medicine 01/05/23 Payal Gaona DO [address] [place] [address] Referring Physician Neurology 09/03/23 Aimee Truong RN Registered Nurse Family Medicine 12/23/23 Product Grader Relationship Specialty Start Date End Date Catracho Sheriff MD [address] [place] [address] (Fax) PCP - [employer] 07/27/22 Catracho Sheriff MD [address] [place] [place] [address] PCP - General Family Medicine 01/05/23 Payal Gaona DO [address] [place] [address] Referring Physician Neurology 09/03/23 Aimee Truong, RN Registered Nurse Family Medicine 12/23/23 Product Grader Relationship Specialty Start Date End Date Catracho Sheriff MD [address] [place] [address] (Fax) PCP - [employer] 07/27/22 Catracho Sheriff MD [address] [place] [address] PCP - General Family Medicine 01/05/23 Payal Gaona DO [address] [place] [address] Referring Physician Neurology 09/03/23 Aimee Truong, IGOR Registered Nurse Family Medicine 12/23/23 Product Grader Relationship Specialty Start Date End Date Catracho Sheriff MD [address] [place] [address] (Fax) PCP - [employer] 07/27/22 Catracho Sheriff MD [address] [place] [address] (Fax) PCP - General Family Medicine 01/05/23 Payal Gaona DO [address] [place] [id number] Referring Physician Neurology 09/03/23 Aimee Truong, RN Registered Nurse Family Medicine 12/23/23 Product Grader Relationship Specialty Start Date End Date Catracho Sheriff MD (Fax) PCP - General 01/29/24 Product Grader Relationship Specialty Start Date End Date Catracho Sheriff MD [address] [place] [address] (Fax) PCP - [employer] 07/27/22 Catracho Sheriff MD [address] [place] [address] (Fax) PCP - General Family Medicine 01/05/23 Payal Gaona DO [address] [place] [id number] Referring Physician Neurology 09/03/23 Aimee Truong, RN Registered Nurse Family Medicine 12/23/23 Product Grader Relationship Specialty Start Date End Date Catracho Sheriff MD [address] [facility] [place] [address] (Fax) PCP - General 01/29/24 Product Grader Relationship Specialty Start Date End Date Catracho Sheriff MD [address] [place] [address] (Fax) PCP - [employer] 07/27/22 Catracho Sheriff MD [address] [place] [address] (Fax) PCP - General Family Medicine 01/05/23 Payal Gaona DO [address] [place] [address] Referring Physician Neurology 09/03/23 Aimee Truong RN Registered Nurse Family Medicine 12/23/23 Product Grader Relationship Specialty Start Date End Date Catracho Sheriff MD [address] [place] [address] (Fax) PCP - [facility] 07/27/22 Catracho Sheriff MD [address] [facility] [address] [place] [address] (Fax) PCP - General Family Medicine 01/05/23 Payal Gaona DO [address] [place] [address] Referring Physician Neurology 09/03/23 Aimee Truong, IGOR Registered Nurse Family Medicine 12/23/23 Ordered Prescriptions [...] Indication: Sinusitis 0721 (MAR Hold - Provider: Mar Autohold - Reason: Unreviewed Transfer Orders)0900 (Automatically [...] dose on Thu11/25/23 at 1700, Until Discontinued 720 (MAR Hold - Provider: Annika Autohold - [...] RN) 0854 (Given - Provider: Nicolasa Pacheco RN)1612 (Given - Provider: Nicolasa Pacheco RN) busPIRone [...] Until Discontinued 0721 (MAR Hold - Provider: Anniak Autohold - Reason: Unreviewed Transfer Orders)0959 (MAR Unhold - Provider: Riri Salomon RN)2037 (Given - Provider: Dinorah Mcfadden, IGOR) 2045 (Given - Provider: Jorge Mcfarland, IGOR) 2099 (Due) DULoxetine (CYMBALTA) extended release capsule [...] Lindsay Webb RN) 0854 (Given - Provider: Nciolasa Pacheco RN) fluticasone (FLOVENT HFA) 110 MCG/ACT inhaler 1 puff 1 puff, Inhalation, 2 TIMES DAILY RESP, First dose on Thu11/28/23 at 1015, Until Discontinued, Rinse mouth out with water (without swallowing) after every dose. 0721 (MAR Hold - Provider: Annika [...] 2100, Apply to bilateral lower extremities. 0721 (MAR Hold - Provider: Annika Autohold - Reason: Unreviewed Transfer Orders)0900 (Automatically Held - Provider: Annika Autohold)0959 (MAR Unhold - Provider: Riri Salomon RN)2037 (Given - Provider: Dinorah Mcfadden RN - Comment: both legs) 0900 (Due)2327 (Not Given - Provider: Jorge Mcfarland RN - Reason: Patient/family refused) 0900 (Not Given - Provider: Nicolasa Pacheco RN - Reason: Other)2100 (Due) hydrocortisone (CORTEF) tablet 5 mg 5 mg, Oral, DAILY WITH LUNCH, First dose on Thu11/25/23 at 1500, Until Discontinued 0721 ([facility] Hold - Provider: Annika Autohold - Reason: Unreviewed Transfer Orders)0959 ([facility] Unhold - Provider: Riri Salomon [...] RT Bronchodilator Protocol: Yes - Inpatient Protocol 07 (MAR Hold - Provider: Annika Autohold - Reason: Unreviewed Transfer Orders)0800 (Automatically Held - Provider: Annika Autohold)0959 (MAR Unhold - Provider: Riri Salomon RN)1400 [...] 30 minutes before and after dose. 0721 (MAR Hold - Provider: Annika [...] Until Discontinued 1059 (Given - Provider: Nicolasa Pacheco, IGOR)2100 (Due) pantoprazole (PROTONIX) tablet 40 mg (CANCELED) 40 mg, Oral, DAILY BEFORE BREAKFAST, First dose on Thu12/02/23 at 0700, Until Discontinued, Do not crush or break. 627 (Given - Provider: Dinorah Mcfadden RN) pantoprazole (PROTONIX) tablet 40 mg 40 mg, Oral, 2 TIMES DAILY BEFORE MEALS, First dose (after last modification) on Thu12/02/23 at 2000, Until Discontinued, Do not crush or break. 2047 (Given - Provider: Jorge Mcfarland RN) 05 (Given - Provider: Jorge Mcfarland RN)161 (Given - Provider: Nicolasa Pacheco RN) sodium [...] Annika Autohold)0959 (MAR Unhold - Provider: Riri Saolmon RN)2047 (Not Given - Provider: Dinorah Mcfadden RN [...] Orders)0959 (MAR Unhold - Provider: Riri Salomon RN) 0.9 [...] if oral route cannot be used. 720 ([facility] Hold - Provider: Annika Autohold - Reason: Unreviewed Transfer Orders)958 ([facility] Unhold - Provider: Riri Salomon RN) acetaminophen (TYLENOL) tablet 650 mg(Linked Group 1) 650 mg, Oral, EVERY 6 HOURS PRN, Starting on Thu11/25/23 at 0421, Until Discontinued, Pain Mild (1-3), Fever, For temp greater than 100.4 F (38 C), Maximum dose of acetaminophen is 4000 mg from all sources in 24 hours. 720 ([facility] Hold - Provider: Annika Autohold - Reason: Unreviewed Transfer Orders)958 ([facility] Unhold - Provider: Riri Salomon RN) albuterol sulfate HFA (PROVENTIL;VENTOLIN;PROAIR ) 108 (90 Base) MCG/ACT inhaler 2 puff 2 puff, Inhalation, EVERY 6 HOURS PRN, Starting on Thu11/25/23 at 0836, Until Discontinued, Wheezing, Initiate RT Bronchodilator Protocol: Yes - Inpatient Protocol 720 ([facility] Hold - Provider: Annika Autohold - Reason: Unreviewed Transfer Orders)958 ([facility] Unhold - Provider: Riri Salomon [...] Annika Autohold - Reason: Unreviewed Transfer Orders)0959 (SEP Unhold - Provider: Riri Salomon RN) [...] Thu11/25/23 at 1031, Until Discontinued, Dry Eyes 0721 ([facility] Hold - Provider: Annika Autohold - Reason: Unreviewed Transfer Orders)0959 ([facility] Unhold - Provider: Riri Salomon, [...] Discontinued, Diarrhea, After each loose stool. 0721 ([facility] Hold - Provider: Annika Autohold - Reason: Unreviewed Transfer Orders)0959 ([facility] Unhold - Provider: Riri Salomon RN) LORazepam (ATIVAN) injection 0.5 mg 0.5 mg, IntraVENous, EVERY 4 HOURS PRN, Starting on Thu11/29/23 at 1208, Until Discontinued, Anxiety, Immediately prior to intravenous use, lorazepam Injection must be diluted with at least an equal volume of compatible solution (NS or D5W). 0721 ([facility] Hold - Provider: Annika Autohold - Reason: Unreviewed Transfer Orders)0959 ([facility] Unhold - Provider: Riri Salomon RN)5 (Given - Provider: Dinorah Mcfadden RN) 2046 (Given - Provider: Jorge Mcfarland, IGOR) 0515 (Given - Provider: Jorge Mcfarland, IGOR) magnesium sulfate 1000 mg in dextrose 5% [...] not for use in Patients with CrCl<30ml/min 07 ([facility] Hold - Provider: [facility] Autohold - Reason: Unreviewed Transfer Orders)0959 ([facility] Unhold - Provider: Riri Salomon, IGOR) melatonin tablet 3 mg 3 mg, Oral, NIGHTLY PRN, Starting on Thu11/26/23 at 0440, Until Discontinued, Sleep 0721 ([facility] Hold - Provider: [facility] Autohold - Reason: Unreviewed Transfer Orders)0959 ([facility] Unhold - Provider: Riri Salomon, IGOR) 2047 (Given - Provider: Jorge Mcfarland RN) midodrine (PROAMATINE) tablet 10 mg 10 mg, Oral, 3 TIMES DAILY PRN, Starting on Thu11/26/23 at 0434, Until Discontinued, sbp<100, Do not give after 1800 or within 4 hrs of bedtime. 07 ([facility] Hold - Provider: [facility] Autohold - Reason: Unreviewed Transfer Orders)59 ([facility] Unhold - Provider: Riri Salomon, IGOR) naloxone 0.4 mg in 10 mL sodium [...] if oral route cannot be used. 0721 ([facility] Hold - Provider: [facility] Autohold - Reason: Unreviewed Transfer Orders)0959 ([facility] Unhold - Provider: Riri Salomon RN) ondansetron (ZOFRAN-ODT) disintegrating tablet 4 mg(Linked Group 3) 4 mg, Oral, EVERY 8 HOURS PRN, Starting on Thu11/25/23 at 0421, Until Discontinued, Nausea, Vomiting 0721 ([facility] Hold - Provider: [facility] Autohold - Reason: Unreviewed Transfer Orders)0959 ([facility] Unhold - Provider: Riri Salomon [...] dilute if GI adverse effects occur. 0721 ([facility] Hold - Provider: [facility] Autoh[employer] - Reason: Unreviewed Transfer Orders)0959 ([facility] Unhold - Provider: Riri Salomon [...] half and each half swallowed separately. 0721 ([facility] Hold - Provider: Annika Autohold - Reason: Unreviewed Transfer Orders)0959 ([facility] Unhold - Provider: Riri Salomon RN) 0900 (See Alternative - Provider: Nicolasa Pacheco RN) potassium chloride 10 mEq/100 mL IVPB (Peripheral Line)(Linked Group 4) 10 mEq, IntraVENous, PRN, Starting on Sara [...] with CrCl less than 30 mL/min. 0721 ([facility] Hold - Provider: Annika Autohold - Reason: Unreviewed Transfer Orders)0959 ([facility] Unhold - Provider: Riri Salomon RN) 0900 (See Alternative - Provider: Nicolasa Pacheco RN) sodium chloride (OCEAN) 0.65 % nasal spray 1 spray 1 spray, Each Nostril, PRN, Starting on Thu11/25/23 at 1352, Until Discontinued, Congestion 0721 ([facility] Hold - Provider: Annika Autohold - Reason: Unreviewed Transfer Orders)0959 ([facility] Unhold - Provider: Riri Salomon [...] patient request 0721 ([facility] Hold - Provider: Annika Autohold - Reason: Unreviewed Transfer Orders)0959 ([facility] Unhold - Provider: Riri Salomon RN) 0447 (Given - Provider: Dinorah Mcfadden, RN)1334 (Given - Provider: Lindsay Webb RN)2047 (Given - Provider: Jorge Mcfarland RN) 1319 (Given - Provider: Nicolasa Pacheco RN [...] BE BASED ON THE PRIMARY CLINICAL RECORDS. [facility] provides no warranty or guarantee of the accuracy or completeness of information in this document.
[2025-01-03] MEDS: ONDANSETRON PF 4 MG/2 ML VIAL IV (22:03)
[2025-01-03 22:05] LABS: Basophils Percent Auto 0.4 % (0.2-2.0); Eosinophils Absolute Auto 0.1 10^3/uL (0.0-0.7); Eosinophils Percent Auto 0.7 % (0.9-7.0); Hematocrit 45.6 % (36.0-48.0); Hemoglobin 15.2 g/dL (12.0-16.0); Immature Granulocytes Abs Auto 0.03 10^3/uL (0.00-0.03); Immature Granulocytes Pct Auto 0.3 % (0.0-0.5); Lymphocytes Absolute Auto 1.9 10^3/uL (1.2-3.8); Lymphocytes Percent Auto 20.7 % (20.5-60.0); Mean Corpuscular HGB Conc 33.3 g/dL (29.9-35.2); Mean Corpuscular Hemoglobin 31.5 pg (26.7-34.0); Mean Corpuscular Volume 94.6 fL (81.0-99.0); Mean Platelet Volume 12.4 fL (9.5-13.5); Monocytes Absolute Auto 0.9 10^3/uL (0.3-0.8); Neutrophils Absolute Auto 6.1 10^3/uL (1.4-6.5); Neutrophils Percent Auto 67.9 % (43.0-75.0); Platelet Count 177 10^3/uL (150-450); Red Blood Count 4.82 10^6/uL (4.20-5.40); Red Cell Distribution Width 14.9 % (11.0-15.0)
--- NOTE | 2025-01-03 22:11 | PC.NURSE ---
Pt presents to ER via EMS after a fall at home Per EMS patient had fallen at 2pm on the stairs and states she hit the back of her head Per EMS patients neighbor called 911 sherry Unknown history / medical background Pt is A&Ox4 but easily distracted, wandering, and obtunded at times Pt begins to fall asleep and not answer staff during triage as well Pt states she does not wear Oo2 at home but is 85% on room air - this nurse initiated oxygen at 3lpm via nc IV initiated, pt gowned and placed on radiation monitor, EKG obtained Pt states she lives at home alone with her cat and cares for herself She remembers falling today
[2025-01-03 22:25] LABS: Alanine Aminotransferase 22 U/L (14-59); Albumin Globulin Ratio 0.8; Albumin Level 3.5 g/dL (3.4-5.0); Alkaline Phosphatase 110 U/L (46-116); Anion Gap 14.5; Aspartate Amino Transferase 20 U/L (15-37); BUN Creatinine Ratio 20.5; Bilirubin Total 0.3 mg/dL (0.2-1.0); Calcium 9.5 mg/dL (8.5-10.1); Carbon Dioxide 27.2 mmol/L (21.0-32.0); Chloride 95 mmol/L (98-107); Estimated GFR (African America >60 (>=60 mL/min/1.73m^2); Estimated GFR (Non-African Ame >60 (>=60 mL/min/1.73m^2); Globulin 4.4 g/dL; Glucose 121 mg/dL (74-106); Potassium 4.7 mmol/L (3.5-5.1); Sodium 132 mmol/L (136-145); Total Protein 7.9 g/dL (6.4-8.2)
[2025-01-04] VITALS (40 sets, daily range): BP systolic 109–150; BP diastolic 56–97; PULSE 65–94; TEMP 36.5–36.8; O2SAT 85–100; BMI 27.3
[2025-01-04 00:31] LABS: Bilirubin Urine NEGATIVE (NEGATIVE); Blood Urine NEGATIVE (NEGATIVE); Clarity Urine CLEAR (CLEAR); Color Urine YELLOW (YELLOW); Glucose Urine UA NEGATIVE (NEGATIVE); Ketones Urine NEGATIVE (NEGATIVE); Leukocyte Esterase Urine NEGATIVE (NEGATIVE); Nitrite Urine NEGATIVE (NEGATIVE); Protein Urine NEGATIVE (NEG/TRACE); Specific Gravity Urine 1.015 (1.005-1.025); Urobilinogen Urine 0.2 EU/dL (0.2-1.0)
--- NOTE | 2025-01-04 00:35 | PC.NURSE ---
Pts daughter at bedside Pts mental status has declined from arrival- pt keeps falling asleep when she awakes her speech is slurred and hard to understand Pt does not have teeth and is trying to talk while asleep Once the patient awakens more her speech becomes more audible and able to understand Pt flails her body with quick jerky movements Pts daughter states she knows she has dementia coming on and it always gets worse at night time Pts daughter also tells this nurse that the patient is supposed to wear O2 at home but she does not and is a smoker
[2025-01-04 00:38] LABS: Bacteria Urine NONE SEEN #/HPF (NONE SEEN); Cast Seen? SEEN #/LPF (NONE SEEN); Crystals Seen? None Seen #/HPF (None Seen); Hyaline Casts Urine RARE; Mucus Urine NONE SEEN (NONE SEEN); RBC Urine NONE SEEN #/HPF (0-2); Squamous Epithelial Cell Urine FEW #/LPF (NONE/RARE); Urine Culture Indicated NO; WBC Urine 0-2 #/HPF (NONE SEEN)
--- OUTSIDE RECORDS SUMMARY | 2025-01-04 02:45 | XMS_ITS | CCD ---
Author Organization [facility] Inform ion Partnership [facility] Care Team Providers Care Institutional Aide Name Role Phone JAZIEL, DR RAMIREZ Primary [...] Care Provider DO Frantz Nieves Admit Provider [phone] MD Jaspal Whalen Attending Provider MD Fortino [...] Provider Payal Gaona DO Unavailable Dionne RN, Aimee [...] source) Cephalexin Drug Allergy 11-29-19 14 [facility] Repository (1 source) Iron Drug Allergy 07-03-20 15 [facility] Rep[facility] (1 source) moxifloxacin Drug Allergy 07-14-20 13 [facility] Rep[facility] (1 source) Penicillins Drug allergy (disorder) 07-14-20 13 [facility] Rep[facility] (1 source) Sulfonamides (Antibiotic) Drug allergy (disorder) 07-14-20 13 [facility] Rep[facility] (1 source) varenicline Drug Allergy 11-29-19 14 [facility] Rep[facility] (20 sources) busPIRone Drug Allergy 01-15-20 23 [facility] (20 sources) Cephalexin Drug Allergy 11-29-19 14 [facility] (20 sources) Codeine Drug Allergy 01-15-20 23 Other (See Comments) [facility] (20 sources) Mirtazapine Drug Allergy 07-23-20 23 Hallucinations [facility] (20 sources) moxifloxacin Drug Allergy 01-15-20 23 Hives [facility] (20 sources) Penicillins Drug Allergy 01-15-20 23 Rash [facility] (20 sources) traZODone Drug Allergy 01-15-20 23 [facility] (20 sources) varenicline Drug Allergy 11-29-19 14 [facility] (1 source) Meperidine Drug Allergy 11-17-19 24 other [facility] (20 sources) Ibuprofen Drug Allergy 11-25-19 24 Other (See Comments) [facility] (20 sources) Niacin And Related Propensity to adverse reactions to drug 11-25-19 24 Hives [facility] (20 sources) Meperidine Drug Allergy 11-17-19 24 [facility] (2 sources) Iron Drug Allergy 07-03-20 15 [facility] (2 sources) Meperidine Drug Allergy 06-21-20 24 [facility] (2 sources) Mirtazapine Drug Allergy 06-21-20 24 [facility] (2 sources) Penicillins Propensity to adverse reactions to drug 07-14-20 13 Rash [facility] Medications Current Medications Medication Drug Class(es) Dates Sig (Normalized) Sig (Original) Acetaminophen (1 source) Start: 11-25-2023 acetaminophen (TYLENOL) tablet 650 mg [id number] 200 actuat albuterol 0.09 mg/actuat metered dose [...] mouth 1 (one) time each day Active YZT-BZC-Vbwksgk E (OMEGA-3 COMPLEX PO) (4 sources) take 1 capsule by mouth once daily VBK-UER-Xbticis E (OMEGA-3 COMPLEX PO) Take 1 capsule by mouth daily Active take 1 capsule by mouth once nereyda ly MOT-QWW-Dbanauq E (OMEGA-3 COMPLEX PO) Take 1 capsule [...] Active Start: 11-25-2023 take 1 capsule by [facility] once daily 40 mg, Oral, DAILY, [...] mg in 10 mL sodium chloride syringe Florence-3 Fatty Acids (Fish Oil) 1000 MG capsule delayed-release (20 sources) Florence-3 Fatty Ac ids (Fish Oil) 1000 MG capsule delayed-release Take by mouth Active Florence-3 Fatty Acids (FISH OIL) 1000 MG CPDR (2 sources) Florence-3 Fatty Ac ids (FISH OIL) 1000 MG [...] (Normalized) Sig (Original) 20 ml albumin human, chcf 250 mg/ml injection (1 source) Human Serum [...] aftercare (20 sources) Polypharmacy ; 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] Onset: 1 01-28-2023 Episodic Other aftercare (20 sources) Taking high risk medication; Translations: [Other senior living (current) drug therapy] Onset: 1 Resolved: 4 07-31-2023 Episodic Other aftercare (20 sources) Drug therapy finding; 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 Electronically Signed [facility]2024 Clinical Information Pre-Op Diagnosis: DUODENAL ULCER Operative [...] Microscopic Description Microscopic examination performed. Processing Lab: [address] [address] Interpretation Performed at [address] [id number] SURGICAL PATHOLOGY CONSULTATION Patient Name: JENNY EWING [facility] Rec: [id number] [facility] ANATOMIC PATHOLOGY [address] [place] [address]. [place], [place] [address] Normal [facility] Basic Metab w/rfx MGon 12-02 Anion gap [Moles/Vol] 7 mmol/L Low 9-16 [facility] Comment on above: Performed By: #### B MPX, MG, CDP #### [facility] [employer] [address] [place] [address] Lighting Engineering Technician: Dwain Aldana MD Calcium [Mass/Vol] 7.6 mg/dL Low 8.6-10.4 [facility] Comment on above: Performed By: #### B MPX, MG, CDP #### [facility] [employer] [address] [place] [address] Lighting Engineering Technician: Dwain Aldana MD Chloride [Moles/Vol] 101 mmol/L Normal 98-107 [facility] Comment on above: Performed By: #### B MPX, MG, CDP #### [facility] [address] [place] [address] Lighting Engineering Technician: Dwain Aldana MD CO2 [Moles/Vol] 31 mmol/L Normal 20-31 [facility] Comment on above: Performed By: #### B MPX, MG, CDP #### [facility] [address] [place] [address] Lighting Engineering Technician: Dwain Aldana MD Creatinine [Mass/Vol] 0.4 mg/dL Low 0.50-0.90 [facility] Comment on above: Performed By: #### B MPX, MG, CDP #### [facility] [employer] [address] [place] [phone] Lighting Engineering Technician: Dwain Aldana MD GFR/1.73 sq M.predicted among non-blacks MDRD (S/P/Bld) [Vol rate/Area] mL/min/{1.73_m2} Normal >60 [facility] Comment on above: Result Comment: These [...] By: #### B MPX MG, CDP #### [facility] [address] [place] [address] Lighting Engineering Technician: Dwain Aldana MD Glucose [Mass/Vol] 83 mg/dL Normal 74-99 [facility] Comment on above: Performed By: #### B MPX, MG, CDP #### [facility] [address] [place] [address] Lighting Engineering Technician: Dwain Aldana MD Potassium [Moles/Vol] 3.2 mmol/L Low 3.7-5.3 [facility] Comment on above: Performed By: #### B MPX, MG, CDP #### [facility] [address] [place] [phone] Lighting Engineering Technician: Dwain Aldana MD Sodium [Moles/Vol] 139 mmol/L Normal 136-145 [facility] Comment on above: Performed By: #### B MPX, MG, CDP #### [employer] [facility] [address] [place] [address] Lighting Engineering Technician: Dwain Aldana MD Urea nitrogen [Mass/Vol] 2 mg/dL Low 8-23 [facility] Comment on above: Performed By: #### B MPX, MG, CDP #### [employer] [address] [place] [address] Lighting Engineering Technician: Dwain Aldana MD Basic Metabolic Panel w/ Ref merlene to [facility] 12-03-2023 Anion gap [Moles/Vol] 7 mmol/L Low 9 - 16 mmol/L [facility] Calcium [Mass/Vol] 7.6 mg/dL Low 8.6 - 10. 4 mg/dL [facility] Chloride [Moles/Vol] 101 mmol/L 98 - 10 7 mmol/L [facility] CO2 [Moles/Vol] 31 mmol/L 20 - 31 mmol/L [facility] Creatinine [Mass/Vol] 0.4 mg/dL Low 0.50 - 0.90 mg/dL [facility] [place] Rate - PINF [facility] Comment on above: These results are [...] [Mass/Vol] 83 mg/dL 74 - 99 mg/dL [facility] Interpretation and review of laboratory results Abnormal [facility] Potassium [Moles/Vol] 3.2 mmol/L Low 3.7 - 5.3 mmol/L [facility] Sodium [Moles/Vol] 139 mmol/L 136 - 145 mmol/L [facility] Urea nitrogen [Mass/Vol] 2 mg/dL Low 8 - 23 mg/dL [facility] CBC with Auto Differentialon 12-03-2023 Basophils (Bld) [#/Vol] 0.08 10*3/uL [facility] Basophils/100 WBC (Bld) 1 % 0 - 2 % [facility] Eosinophils (Bld) [#/Vol] 0.23 10*3/uL [facility] Eosinophils/100 WBC (Bld) 3 % 1 - 4 % [facility] Erythrocyte distribution width (RBC) [Ratio] 17.7 % High 11.8 - 14.4 % [facility] Hematocrit (Bld) [Volume fraction] 29.4 % Low 36.3 - 47.1 % [facility] Hemoglobin (Bld) [Mass/Vol] 9.6 g/dL Low 11.9 - 15.1 g/dL [facility] Immature granulocytes (Bld) [#/Vol] 0.08 10*3/uL [facility] Immature granulocytes/100 WBC (Bld) 1 % High 0 [facility] Interpretation and review of laboratory results Abnormal [facility] Lymphocytes/100 WBC (Bld) 18 % Low 24 - 43 % [facility] Lymphocytes/100 WBC (Bld) 1.37 % [facility] MCH (RBC) [Entitic mass] 30.4 pg 25.2 - 33.5 pg [facility] MCHC (RBC) [Mass/Vol] 32.7 g/dL 28.4 - 34.8 g/dL [facility] MCV (RBC) [Entitic vol] 93.0 fL 82.6 - 102.9 fL [facility] Monocytes/100 WBC (Bld) 9 % 3 - 12 % [facility] Monocytes/100 WBC (Bld) 0.68 % [facility] Morphology Jesus (Bld) [Interp] Normal [facility] Neutrophils/100 WBC (Bld) 68 % High 36 - 65 % [facility] Nucleated RBC/100 WBC (Bld) [Ratio] 0.0 % 0.0 per 100 WBC [facility] Platelet, Fluorescence 347 [facility] Platelets (Bld) [#/Vol] See Reflexed IPF Result [facility] Platelets reticulated/100 platelets Auto (Bld) 4.0 % 1.1 - 10.3 % [facility] RBC (Bld) [#/Vol] 3.16 10*6/uL Low 3.95 - 5.11 m/uL [facility] RBC (Bld) [#/Vol] ANISOCYTOSIS PRESENT [facility] Segmented neutrophils/100 WBC (Bld) 5.16 % [facility] WBC other (Bld) [#/Vol] 7.6 [facility] CBC with Diffon 12-03-2023 Abs. Basophil 0.08 k/uL Normal 0.00-0.20 [facility] Comment on above: Performed By: #### B MPX, MG, CDP #### [facility] [address] [place] [address] Lighting Engineering Technician: Dwain Aldana MD Abs.Imm.Granulocyte 0.08 k/uL Normal 0.00-0.30 [facility] Comment on above: Performed By: #### B MPX, MG, CDP #### [facility] [employer] [address] [place] [address] Lighting Engineering Technician: Dwain Aldana MD Abs.Neutrophil (Seg) 5.16 k/uL Normal 1.50-8.10 [facility] Comment on above: Performed By: #### B MPX, MG, CDP #### [facility] [employer] [address] [place] [address] Lighting Engineering Technician: Dwain Aldana MD Basophils/100 WBC (Bld) 1 % Normal 0-2 [facility] Comment on above: Performed By: #### B MPX, MG, CDP #### [facility] [employer] [address] [place] [address] Lighting Engineering Technician: Dwain Aldana MD Eosinophils (Bld) [#/Vol] 0.23 10*3/uL Normal 0.00-0.44 [facility] Comment on above: Performed By: #### B MPX, MG, CDP #### [facility] [employer] [address] [place] [address] Lighting Engineering Technician: Dwain Aldana MD Eosinophils/100 WBC (Bld) 3 % Normal 1-4 [facility] Comment on above: Performed By: #### B MPX, MG, CDP #### [facility] [address] [place] [address]898 Lighting Engineering Technician: Dwain Aldana MD Immature granulocytes/100 WBC (Bld) 1 % High 0 [facility] Comment on above: Performed By: #### B MPX, MG, CDP #### [facility] [address] [place] [address] Lighting Engineering Technician: Dwain Aldana MD Lymphocytes (Bld) [#/Vol] 1.37 10*3/uL Normal 1.10-3.70 [facility] Comment on above: Performed By: #### B MPX, MG, CDP #### [address] [address] Lighting Engineering Technician: Dwain Aldana MD Lymphocytes/100 WBC (Bld) 18 % Low 24-43 [facility] Comment on above: Performed By: #### B MPX, MG, CDP #### [facility] [employer] [address] [place] [address] Lighting Engineering Technician: Dwain Aldana MD Monocytes (Bld) [#/Vol] 0.68 10*3/uL Normal 0.10-1.20 [facility] Comment on above: Performed By: #### B MPX, MG, CDP #### [address] [address] Lighting Engineering Technician: Dwain Aldana MD Monocytes/100 WBC (Bld) 9 % Normal 3-12 [facility] Comment on above: Performed By: #### B MPX, MG, CDP #### [address] [address] Lighting Engineering Technician: Dwain Aldana MD Morphology Jesus (Bld) [Interp] Normal Normal [facility] Comment on above: Performed By: #### B MPX, MG, CDP #### [facility] [employer] [address] [place] [address] Lighting Engineering Technician: Dwain Aldana MD Neutrophil (Seg) 68 % High 36-65 [facility] Comment on above: Performed By: #### B MPX, MG, CDP #### [facility] [employer] [address] [place] [address]8410 Lighting Engineering Technician: Dwain Aldana MD Platelet, Fluoresc. 347 k/uL Normal 138-453 [facility] Comment on above: Performed By: #### B MPX, MG, CDP #### [facility] [employer] [address] [place] [address]85[address] Lighting Engineering Technician: Dwain Aldana MD PLT, Immature Fract. 4.0 % Normal 1.1-10.3 [facility] Comment on above: Performed By: #### B MPX, MG, CDP #### [facility] [employer] [address] [place] [address] Lighting Engineering Technician: Dwain Aldana MD Erythrocyte distribution width (RBC) [Ratio] 17.7 % High 11.8-14.4 [facility] Comment on above: Performed By: #### B MPX, MG, CDP #### [facility] [employer] [address] [place] [address] 68529 Lighting Engineering Technician: Dwain Aldana MD Hematocrit (Bld) [Volume fraction] 29.4 % Low 36.3-47.1 [facility] Comment on above: Performed By: #### B MPX, MG, CDP #### [facility] [employer] [address] [place] [address] Lighting Engineering Technician: Dwain Aldana MD Hemoglobin (Bld) [Mass/Vol] 9.6 g/dL Low 11.9-15.1 [facility] Comment on above: Performed By: #### B MPX, MG, CDP #### [facility] [employer] [address] [place] [address]13 Lighting Engineering Technician: Dwain Aldana MD MCH (RBC) [Entitic mass] 30.4 pg Normal 25.2-33.5 [facility] Comment on above: Performed By: #### B MPX, MG, CDP #### [facility] [employer] [address] [place] [address] 15772 Lighting Engineering Technician: Dwain Aldana MD MCHC (RBC) [Mass/Vol] 32.7 g/dL Normal 28.4-34.8 [facility] Comment on above: Performed By: #### B MPX, MG, CDP #### [facility] [employer] [address] [place] [address] 53979 Lighting Engineering Technician: Dwain Aldana MD MCV (RBC) [Entitic vol] 93.0 fL Normal 82.6-102.9 [facility] Comment on above: Performed By: #### B MPX, MG, CDP #### [facility] [employer] [address] [place] [address] Lighting Engineering Technician: Dwain Aldana MD NRBC Automated 0.0 per 100 WBC Normal 0.0 [facility] Comment on above: Performed By: #### B MPX, MG, CDP #### [facility] [employer] [address] [place] [address] 26492 Lighting Engineering Technician: Dwain Aldana MD Platelet Count See Reflexed IPF Result Normal 138-453 [facility] Comment on above: Performed By: #### B MPX, MG, CDP #### [facility] [employer] [address] [place] [address] 6[address] Lighting Engineering Technician: Dwain Aldana MD RBC (Bld) [#/Vol] 3.16 10*6/uL Low 3.95-5.11 [facility] Comment on above: Performed By: #### B MPX, MG, CDP #### [facility] [employer] [address] [place] [address] 21269 Lighting Engineering Technician: Dwain Aldana MD RBC morphology finding Nom (Bld) ANISOCYTOSIS PRESENT Normal [facility] Comment on above: Performed By: #### B MPX, MG, CDP #### [facility] [employer] [address] [place] [address] 65297 Lighting Engineering Technician: Dwain Aldana MD WBC (Bld) [#/Vol] 7.6 10*3/uL Normal 3.5-11.3 [facility] Comment on above: Performed By: #### B MPX, MG, CDP #### [facility] [employer] [address] [place] [address] Lighting Engineering Technician: Dwain Aldana MD Magnesiumon 12-03-2023 Magnesium [Mass/Vol] 1.7 mg/dL Normal 1.6-2.4 [facility] Comment on above: Performed By: #### B MPX, MG, CDP #### [facility] [address] [place] [address] Lighting Engineering Technician: Dwain Aldana MD Magnesium [Mass/Vol] 1.7 mg/dL 1.6 - 2 .4 mg/dL [facility] Basic Metab w/rfx MGon 12-01 Anion gap [Moles/Vol] 8 mmol/L Low 9-16 [facility] Comment on above: Performed By: #### B MPX, MG, CDP #### [facility] [employer] [address] [place] [address] Lighting Engineering Technician: Dwain Aldana MD Calcium [Mass/Vol] 7.0 mg/dL Low 8.6-10.4 [facility] Comment on above: Performed By: #### B MPX, MG, CDP #### [facility] [address] [place] [address] Lighting Engineering Technician: Dwain Aldana MD Chloride [Moles/Vol] 101 mmol/L Normal 98-107 [facility] Comment on above: Performed By: #### B MPX, MG, CDP #### [facility] [address] [place] [address] 19202 Lighting Engineering Technician: Dwain Aldana MD CO2 [Moles/Vol] 28 mmol/L Normal 20-31 [facility] Comment on above: Performed By: #### B MPX, MG, CDP #### [facility] [address] [place] [address] 61173 Lighting Engineering Technician: Dwain Aldana MD Creatinine [Mass/Vol] 0.4 mg/dL Low 0.50-0.90 [facility] Comment on above: Performed By: #### B MPX, MG, CDP #### [facility] [address] [place] [address] Lighting Engineering Technician: Dawin Aldana MD GFR/1.73 sq M.predicted among non-blacks MDRD (S/P/Bld) [Vol rate/Area] mL/min/{1.73_m2} Normal >60 [facility] Comment on above: Result Comment: These [...] By: #### B MPX, MG, CDP #### [facility] [address] [place] [address] Lighting Engineering Technician: Dwain Aldana MD Glucose [Mass/Vol] 85 mg/dL Normal 74-99 [facility] Comment on above: Performed By: #### B MPX, MG, CDP #### [facility] [address] [place] [address] Lighting Engineering Technician: Dwani Aldana MD Potassium [Moles/Vol] 3.4 mmol/L Low 3.7-5.3 [facility] Comment on above: Performed By: #### B MPX, MG, CDP #### [facility] [address] [place] [address] Lighting Engineering Technician: Dwain Aldana MD Sodium [Moles/Vol] 137 mmol/L Normal 136-145 [facility] Comment on above: Performed By: #### B MPX, MG, CDP #### [facility] [address] [place] [address] Lighting Engineering Technician: Dwain Aldana MD Urea nitrogen [Mass/Vol] 4 mg/dL Low 8-23 [facility] Comment on above: Performed By: #### B MPX, MG, CDP #### [facility] [address] [id number] Lighting Engineering Technician: Dwain Aldana MD Basic Metabolic Panel w/ Ref merlene to [facility]on 12-02-2023 Anion gap [Moles/Vol] 8 mmol/L Low 9 - 16 mmol/L [facility] Calcium [Mass/Vol] 7.0 mg/dL Low 8.6 - 10. 4 mg/dL [facility] Chloride [Moles/Vol] 101 mmol/L 98 - 10 7 mmol/L [facility] CO2 [Moles/Vol] 28 mmol/L 20 - 31 mmol/L [facility] Creatinine [Mass/Vol] 0.4 mg/dL Low 0.50 - 0.90 mg/dL [facility] Fwd: Power Est, Glom Filt Rate - PINF [facility] Comment on above: These results are [...] [Mass/Vol] 85 mg/dL 74 - 99 mg/dL [facility] Interpretation and review of laboratory results Abnormal [facility] Potassium [Moles/Vol] 3.4 mmol/L Low 3.7 - 5.3 mmol/L [facility] Sodium [Moles/Vol] 137 mmol/L 136 - 145 mmol/L [facility] Urea nitrogen [Mass/Vol] 4 mg/dL Low 8 - 23 mg/dL [facility] CBC with Auto Differentialon 12-02-2023 Basophils (Bld) [#/Vol] 0.05 10*3/uL [facility] Basophils/100 WBC (Bld) 1 % 0 - 2 % [facility] Eosinophils (Bld) [#/Vol] 0.18 10*3/uL [facility] Eosinophils/100 WBC (Bld) 3 % 1 - 4 % [facility] Erythrocyte distribution width (RBC) [Ratio] 17.9 % High 11.8 - 14.4 % [facility] Hematocrit (Bld) [Volume fraction] 27.5 % Low 36.3 - 47.1 % [facility] Hemoglobin (Bld) [Mass/Vol] 8.2 g/dL Low 11.9 - 15.1 g/dL [facility] Immature granulocytes (Bld) [#/Vol] 0.04 10*3/uL [facility] Immature granulocytes/100 WBC (Bld) 1 % High 0 [facility] Interpretation and review of laboratory results Abnormal [facility] Lymphocytes/100 WBC (Bld) 13 % Low 24 - 43 % [facility] Lymphocytes/100 WBC (Bld) 0.92 % Low [facility] MCH (RBC) [Entitic mass] 30.0 pg 25.2 - 33.5 pg [facility] MCHC (RBC) [Mass/Vol] 29.8 g/dL 28.4 - 34.8 g/dL [facility] MCV (RBC) [Entitic vol] 100.7 fL 82.6 - 102.9 fL [facility] Monocytes/100 WBC (Bld) 7 % 3 - 12 % [facility] Monocytes/100 WBC (Bld) 0.47 % [facility] Neutrophils/100 WBC (Bld) 77 % High 36 - 65 % [facility] Nucleated RBC/100 WBC (Bld) [Ratio] 0.0 % 0.0 per 100 WBC [facility] Platelet, Fluorescence 319 [facility] Platelets (Bld) [#/Vol] See Reflexed IPF Result [facility] Platelets reticulated/100 platelets Auto (Bld) 3.7 % 1.1 - 10.3 % [facility] RBC (Bld) [#/Vol] 2.73 10*6/uL Low 3.95 - 5.11 m/uL [facility] RBC (Bld) [#/Vol] ANISOCYTOSIS PRESENT [facility] Segmented neutrophils/100 WBC (Bld) 5.49 % [facility] WBC other (Bld) [#/Vol] 7.2 [facility] CBC with Diffon 12-02-2023 Platelet, Fluoresc. 319 k/uL Normal 138-453 [facility] Comment on above: Performed By: #### B MPX, MG, CDP #### [facility] [address] [place] [address] Lighting Engineering Technician: Dwain Aldana MD PLT, Immature Fract. 3.7 % Normal 1.1-10.3 [facility] Comment on above: Performed By: #### B MPX, MG, CDP #### [facility] [address] [place] [address] Lighting Engineering Technician: Dwain Aldana MD Abs. Basophil 0.05 k/uL Normal 0.00-0.20 [facility] Comment on above: Performed By: #### B MPX, MG, CDP #### [facility] [address] [place] [address] Lighting Engineering Technician: Dwain Aldana MD Abs.Imm.Granulocyte 0.04 k/uL Normal 0.00-0.30 [facility] Comment on above: Performed By: #### B MPX, MG, CDP #### [facility] [address] [place] [address] Lighting Engineering Technician: Dwain Aldana MD Abs.Neutrophil (Seg) 5.49 k/uL Normal 1.50-8.10 [facility] Comment on above: Performed By: #### B MPX, MG, CDP #### [facility] [address] [place] [address] Lighting Engineering Technician: Dwain Aldana MD Basophils/100 WBC (Bld) 1 % Normal 0-2 [facility] Comment on above: Performed By: #### B MPX, MG, CDP #### [facility] [employer] [address] [place] [address] Lighting Engineering Technician: Dwain Aldana MD Eosinophils (Bld) [#/Vol] 0.18 10*3/uL Normal 0.00-0.44 [facility] Comment on above: Performed By: #### B MPX, MG, CDP #### [facility] [employer] [address] [place] [address] Lighting Engineering Technician: Dwain Aldana MD Eosinophils/100 WBC (Bld) 3 % Normal 1-4 [facility] Comment on above: Performed By: #### B MPX, MG, CDP #### [facility] [employer] [address] [place] [address] Lighting Engineering Technician: Dwain Aldana MD Erythrocyte distribution width (RBC) [Ratio] 17.9 % High 11.8-14.4 [facility] Comment on above: Performed By: #### B MPX, MG, CDP #### [facility] [employer] [address] [place] [address] Lighting Engineering Technician: Dwain Aldana MD Hematocrit (Bld) [Volume fraction] 27.5 % Low 36.3-47.1 [facility] Comment on above: Performed By: #### B MPX, MG, CDP #### [facility] [address] [place] [address] Lighting Engineering Technician: Dwain Aldana MD Hemoglobin (Bld) [Mass/Vol] 8.2 g/dL Low 11.9-15.1 [facility] Comment on above: Performed By: #### B MPX, MG, CDP #### [facility] [employer] [address] [place] [address] Lighting Engineering Technician: Dwain Aldana MD Immature granulocytes/100 WBC (Bld) 1 % High 0 [facility] Comment on above: Performed By: #### B MPX, MG, CDP #### [address] [address] Lighting Engineering Technician: Dwain Aldana MD Lymphocytes (Bld) [#/Vol] 0.92 10*3/uL Low 1.10-3.70 [facility] Comment on above: Performed By: #### B MPX, MG, CDP #### [address] [address] Lighting Engineering Technician: Dwain Aldana MD Lymphocytes/100 WBC (Bld) 13 % Low 24-43 [facility] Comment on above: Performed By: #### B MPX, MG, CDP #### [address] [address] Lighting Engineering Technician: Dwain Aldana MD MCH (RBC) [Entitic mass] 30.0 pg Normal 25.2-33.5 [facility] Comment on above: Performed By: #### B MPX, MG, CDP #### [address] [address] Lighting Engineering Technician: Dwain Aldana MD MCHC (RBC) [Mass/Vol] 29.8 g/dL Normal 28.4-34.8 [facility] Comment on above: Performed By: #### B MPX, MG, CDP #### [address] [address] Lighting Engineering Technician: Dwain Aldana MD MCV (RBC) [Entitic vol] 100.7 fL Normal 82.6-102.9 [facility] Comment on above: Performed By: #### B MPX, MG, CDP #### [address] [address] Lighting Engineering Technician: Dwain Aldana MD Monocytes (Bld) [#/Vol] 0.47 10*3/uL Normal 0.10-1.20 [facility] Comment on above: Performed By: #### B MPX, MG, CDP #### [address] [place] [address] Lighting Engineering Technician: Dwain Aldana MD Monocytes/100 WBC (Bld) 7 % Normal 3-12 [facility] Comment on above: Performed By: #### B MPX, MG, CDP #### [facility] [address] [place] [address] Lighting Engineering Technician: Dwain Aldana MD Neutrophil (Seg) 77 % High 36-65 [facility] Comment on above: Performed By: #### B MPX, MG, CDP #### [facility] [employer] [address] [place] [address] Lighting Engineering Technician: Dwain Aldana MD NRBC Automated 0.0 per 100 WBC Normal 0.0 [facility] Comment on above: Performed By: #### B MPX, MG, CDP #### [facility] [employer] [address] [place] [address] Lighting Engineering Technician: Dwain Aldana MD Platelet Count See Reflexed IPF Result Normal 138-453 [facility] Comment on above: Performed By: #### B MPX, MG, CDP #### [facility] [employer] [address] [place] [address] Lighting Engineering Technician: Dwain Aldana MD RBC (Bld) [#/Vol] 2.73 10*6/uL Low 3.95-5.11 [facility] Comment on above: Performed By: #### B MPX, MG, CDP #### [facility] [employer] [address] [place] [address] Lighting Engineering Technician: Dwain Aldana MD RBC morphology finding Nom (Bld) ANISOCYTOSIS PRESENT Normal [facility] Comment on above: Performed By: #### B MPX, MG, CDP #### [facility] [employer] [address] [place] [address] Lighting Engineering Technician: Dwain Aldana MD WBC (Bld) [#/Vol] 7.2 10*3/uL Normal 3.5-11.3 [facility] Comment on above: Performed By: #### B MPX, MG, CDP #### [facility] [address] [place] [address] Lighting Engineering Technician: Dwain Aldana MD Magnesiumon 12-02-2023 Magnesium [Mass/Vol] 1.7 mg/dL Normal 1.6-2.4 [facility] Comment on above: Performed By: #### B MPX, MG, CDP #### [facility] [address] [place] [address] Lighting Engineering Technician: Dwain Aldana MD Magnesium [Mass/Vol] 1.7 mg/dL 1.6 - 2 .4 mg/dL [facility] Basic Metab w/rfx MGon 11-30 Anion gap [Moles/Vol] 7 mmol/L Low 9-16 [facility] Comment on above: Performed By: #### H H #### [address] [address] Lighting Engineering Technician: Dwain Aldana MD Calcium [Mass/Vol] 6.8 mg/dL Low 8.6-10.4 [facility] Comment on above: Performed By: #### H H #### [facility] [employer] [address] [place] [address] Lighting Engineering Technician: Dwain Aldana MD Chloride [Moles/Vol] 107 mmol/L Normal 98-107 [facility] Comment on above: Performed By: #### H H #### [facility] [employer] [address] [place] [address] Lighting Engineering Technician: Dwain Aldana MD CO2 [Moles/Vol] 23 mmol/L Normal 20-31 [facility] Comment on above: Performed By: #### H H #### [facility] [employer] [address] [place] [address] Lighting Engineering Technician: Dwain Aldana MD Creatinine [Mass/Vol] 0.3 mg/dL Low 0.50-0.90 [facility] Comment on above: Performed By: #### H H #### [address] [address] Lighting Engineering Technician: Dwain Aldana MD GFR/1.73 sq M.predicted among non-blacks MDRD (S/P/Bld) [Vol rate/Area] mL/min/{1.73_m2} Normal >60 [facility] Comment on above: Result Comment: These [...] secretion. Performed By: #### H H #### [address] [address] Lighting Engineering Technician: Dwain Aldana MD Glucose [Mass/Vol] 79 mg/dL Normal 74-99 [facility] Comment on above: Performed By: #### H H #### [address] [address] Lighting Engineering Technician: Dwain Aldana MD Potassium [Moles/Vol] 3.8 mmol/L Normal 3.7-5.3 [facility] Comment on above: Performed By: #### H H #### [facility] [employer] [address] [place] [address] Lighting Engineering Technician: Dwain Aldana MD Sodium [Moles/Vol] 137 mmol/L Normal 136-145 [facility] Comment on above: Performed By: #### H H #### [address] [address] Lighting Engineering Technician: Dwain Aldana MD Urea nitrogen [Mass/Vol] 8 mg/dL Normal 8-23 [facility] Comment on above: Performed By: #### H H #### [facility] [address] [place] [address] Lighting Engineering Technician: Dwain Aldana MD Basic Metabolic Panel w/ Ref merlene to MGon 12-01-2023 Anion gap [Moles/Vol] 7 mmol/L Low 9 - 16 mmol/L [facility] Calcium [Mass/Vol] 6.8 mg/dL Low 8.6 - 10. 4 mg/dL [facility] Chloride [Moles/Vol] 107 mmol/L 98 - 10 7 mmol/L [facility] CO2 [Moles/Vol] 23 mmol/L 20 - 31 mmol/L [facility] Creatinine [Mass/Vol] 0.3 mg/dL Low 0.50 - 0.90 mg/dL [facility] Est, Glom Filt Rate - PINF [facility] Comment on above: These results are [...] [Mass/Vol] 79 mg/dL 74 - 99 mg/dL [facility] Interpretation and review of laboratory results Abnormal [facility] Potassium [Moles/Vol] 3.8 mmol/L 3.7 - 5.3 mmol/L [facility] Sodium [Moles/Vol] 137 mmol/L 136 - 145 mmol/L [facility] Urea nitrogen [Mass/Vol] 8 mg/dL 8 - 23 mg/dL [facility] CBC with Auto Differentialon 12-01-2023 Basophils (Bld) [#/Vol] 0.04 10*3/uL [facility] Basophils/100 WBC (Bld) 1 % 0 - 2 % [facility] Eosinophils (Bld) [#/Vol] 0.15 10*3/uL [facility] Eosinophils/100 WBC (Bld) 2 % 1 - 4 % [facility] Erythrocyte distribution width (RBC) [Ratio] 18.8 % High 11.8 - 14.4 % [facility] Hematocrit (Bld) [Volume fraction] 22.9 % Low 36.3 - 47.1 % [facility] Hemoglobin (Bld) [Mass/Vol] 7.1 g/dL Low 11.9 - 15.1 g/dL [facility] Immature granulocytes (Bld) [#/Vol] 0.04 10*3/uL [facility] Immature granulocytes/100 WBC (Bld) 1 % High 0 [facility] Interpretation and review of laboratory results Abnormal [facility] Lymphocytes/100 WBC (Bld) 17 % Low 24 - 43 % [facility] Lymphocytes/100 WBC (Bld) 1.27 % [facility] MCH (RBC) [Entitic mass] 30.1 pg 25.2 - 33.5 pg [facility] MCHC (RBC) [Mass/Vol] 31.0 g/dL 28.4 - 34.8 g/dL [facility] MCV (RBC) [Entitic vol] 97.0 fL 82.6 - 102.9 fL [facility] Monocytes/100 WBC (Bld) 8 % 3 - 12 % [facility] Monocytes/100 WBC (Bld) 0.61 % [facility] Neutrophils/100 WBC (Bld) 72 % High 36 - 65 % [facility] Nucleated RBC/100 WBC (Bld) [Ratio] 0.0 % 0.0 per 100 WBC [facility] Platelet mean volume (Bld) [Entitic vol] 10.2 fL 8.1 - 13.5 fL [facility] Platelets (Bld) [#/Vol] 201 10*3/uL [facility] RBC (Bld) [#/Vol] 2.36 10*6/uL Low 3.95 - 5.11 m/uL [facility] RBC (Bld) [#/Vol] ANISOCYTOSIS PRESENT [facility] Segmented neutrophils/100 WBC (Bld) 5.55 % [facility] WBC other (Bld) [#/Vol] 7.7 [facility] CBC with Diffon 12-01-2023 Abs. Basophil 0.04 k/uL Normal 0.00-0.20 [facility] Comment on above: Performed By: #### H H #### [address] [address] Lighting Engineering Technician: Dwain Aldana MD Abs.Imm.Granulocyte 0.04 k/uL Normal 0.00-0.30 [facility] Comment on above: Performed By: #### H H #### [address] [address] Lighting Engineering Technician: Dwain Aldana MD Abs.Neutrophil (Seg) 5.55 k/uL Normal 1.50-8.10 [facility] Comment on above: Performed By: #### H H #### [address] [address] Lighting Engineering Technician: Dwain Aldana MD Basophils/100 WBC (Bld) 1 % Normal 0-2 [facility] Comment on above: Performed By: #### H H #### [address] [address] Lighting Engineering Technician: Dwain Aldana MD Eosinophils (Bld) [#/Vol] 0.15 10*3/uL Normal 0.00-0.44 [facility] Comment on above: Performed By: #### H H #### [address] [address] Lighting Engineering Technician: Dwain Aldana MD Eosinophils/100 WBC (Bld) 2 % Normal 1-4 [facility] Comment on above: Performed By: #### H H #### [address] [address] Lighting Engineering Technician: Dwain Aldana MD Erythrocyte distribution width (RBC) [Ratio] 18.8 % High 11.8-14.4 [facility] Comment on above: Performed By: #### H H #### [address] [address] Lighting Engineering Technician: Dwain Aldana MD Hematocrit (Bld) [Volume fraction] 22.9 % Low 36.3-47.1 [facility] Comment on above: Performed By: #### H H #### [place] [address] Lighting Engineering Technician: Dwain Aldana MD Hemoglobin (Bld) [Mass/Vol] 7.1 g/dL Low 11.9-15.1 [facility] Comment on above: Performed By: #### H H #### [place] [address] Lighting Engineering Technician: Dwain Aldana MD Immature granulocytes/100 WBC (Bld) 1 % High 0 [facility] Comment on above: Performed By: #### H H #### [place] [address] Lighting Engineering Technician: Dwain Aldana MD Lymphocytes (Bld) [#/Vol] 1.27 10*3/uL Normal 1.10-3.70 [facility] Comment on above: Performed By: #### H H #### [place] [address] Lighting Engineering Technician: Dwain Aldana MD Lymphocytes/100 WBC (Bld) 17 % Low 24-43 [facility] Comment on above: Performed By: #### H H #### [place] [address] Lighting Engineering Technician: Dwain Aldana MD MCH (RBC) [Entitic mass] 30.1 pg Normal 25.2-33.5 [facility] Comment on above: Performed By: #### H H #### [address] [address] Lighting Engineering Technician: Dwain Aldana MD MCHC (RBC) [Mass/Vol] 31.0 g/dL Normal 28.4-34.8 [facility] Comment on above: Performed By: #### H H #### [address] [address] Lighting Engineering Technician: Dwain Aldana MD MCV (RBC) [Entitic vol] 97.0 fL Normal 82.6-102.9 [facility] Comment on above: Performed By: #### H H #### [address] [address] Lighting Engineering Technician: Dwain Aldana MD Monocytes (Bld) [#/Vol] 0.61 10*3/uL Normal 0.10-1.20 [facility] Comment on above: Performed By: #### H H #### [address] [address] Lighting Engineering Technician: Dwain Aldana MD Monocytes/100 WBC (Bld) 8 % Normal 3-12 [facility] Comment on above: Performed By: #### H H #### [address] [address] Lighting Engineering Technician: Dwain Aldana MD Neutrophil (Seg) 72 % High 36-65 [facility] Comment on above: Performed By: #### H H #### [address] [address] Lighting Engineering Technician: Dwain Aldana MD NRBC Automated 0.0 per 100 WBC Normal 0.0 [facility] Comment on above: Performed By: #### H H #### [address] [address] Lighting Engineering Technician: Dwain Aldana MD Platelet mean volume (Bld) [Entitic vol] 10.2 fL Normal 8.1-13.5 [facility] Comment on above: Performed By: #### H H #### [place] [address] [place] [address] Lighting Engineering Technician: Dwain Aldana MD Platelets (Bld) [#/Vol] 201 10*3/uL Normal 138-453 [facility] Comment on above: Performed By: #### H H #### [address] [address] Lighting Engineering Technician: Dwain Aldana MD RBC (Bld) [#/Vol] 2.36 10*6/uL Low 3.95-5.11 [facility] Comment on above: Performed By: #### H H #### [address] [address] Lighting Engineering Technician: Dwain Aldana MD RBC morphology finding Nom (Bld) ANISOCYTOSIS PRESENT Normal [facility] Comment on above: Performed By: #### H H #### [address] [address] Lighting Engineering Technician: Dwain Aldana MD WBC (Bld) [#/Vol] 7.7 10*3/uL Normal 3.5-11.3 [facility] Comment on above: Performed By: #### H H #### [address] [address] Lighting Engineering Technician: Dwain Aldana MD Hemoglobin and Hematocriton 12-01-2023 Hematocrit (Bld) [Volume fraction] 27.1 % Low 36.3 - 47.1 % [facility] Fwd: Power Hemoglobin (Bld) [Mass/Vol] 8.9 g/dL Low 11.9 - 15.1 g/dL [facility] Fwd: Power Interpretation and review of laboratory results Abnormal [facility] Hematocrit (Bld) [Volume fraction] 28.7 % Low 36.3 - 47.1 % [facility] Hemoglobin (Bld) [Mass/Vol] 8.8 g/dL Low 11.9 - 15.1 g/dL [facility] Interpretation and review of laboratory results Abnormal [facility] Hgb/Hcton 12-01-2023 Hematocrit (Bld) [Volume fraction] 27.1 % Low 36.3-47.1 [facility] Comment on above: Performed By: #### T LISAX, PRCAL #### [facility] [address] [place] [address] Lighting Engineering Technician: Dwain Aldana MD Hemoglobin (Bld) [Mass/Vol] 8.9 g/dL Low 11.9-15.1 [facility] Comment on above: Performed By: #### T JEAN PRCAL #### [facility] [address] [place] [address] [phone] Lighting Engineering Technician: Dwain Aldana MD Hematocrit (Bld) [Volume fraction] 28.7 % Low 36.3-47.1 [facility] Comment on above: Performed By: #### H H #### [facility] [address] [place] [address] [phone] Lighting Engineering Technician: Dwain Aldana MD Hemoglobin (Bld) [Mass/Vol] 8.8 g/dL Low 11.9-15.1 [facility] Comment on above: Performed By: #### H H #### [facility] [address] [place] [address] [phone] Lighting Engineering Technician: Dwain Aldana MD No Panel Informationon 11-30 Blood Bank Blood Product Expiration Date [id number] [facility] Blood Bank ISBT Product Blood Type 6200 [facility] Blood Bank Unit Type and Rh Positive [facility] Component Leukocyte Reduced Red Cell [facility] Crossmatch Result COMPATIBLE [facility] Dispense Status Blood Bank TRANSFUSED [facility] Product Code Blood Bank [id number] [facility] Transfusion Status OK TO TRANSFUSE B ON [facility] Unit Divison 0 [facility] TYPE AND SCREENon 12-01-2023 ABO/Rh Positive [facility] Arm Band Number [id number] [facility] Blood Bank Blood Product Expiration Date [facility] Blood Bank Sample Expiration 12/02/2023,2359 [facility] Blood product unit ID (Dose) [#] [id number] [facility] Blood product unit ID (Dose) [#] [id number] [facility] Blood product unit ID (Dose) [#] [id number] [facility] Unit Issue Date/Time [id number] [facility] Unit Issue Date/Time [facility] Unit Issue Date/Time [id number] [facility] Basic Metab w/rfx MGon 11-29 Anion gap [Moles/Vol] 4 mmol/L Low 9-16 [facility] Comment on above: Performed By: #### B LENNY FINK, CDP #### [facility] [address] [place] [address] Lighting Engineering Technician: Dwain Aldana MD Calcium [Mass/Vol] 6.6 mg/dL Low 8.6-10.4 [facility] Comment on above: Performed By: #### B LENNY FINK, CDP #### [facility] [address] [place] [address] Lighting Engineering Technician: Dwain Aldana MD Chloride [Moles/Vol] 108 mmol/L High 98-107 [facility] Comment on above: Performed By: #### B ALOK FINK4, CDP #### [facility] [address] [place], [place] [phone] Lighting Engineering Technician: Dwain Aldana MD CO2 [Moles/Vol] 26 mmol/L Normal 20-31 [facility] Comment on above: Performed By: #### B MPX, FT4, CDP #### [facility] [employer] [address] [place] [address] Lighting Engineering Technician: Dwain Aldana MD Creatinine [Mass/Vol] 0.4 mg/dL Low 0.50-0.90 [facility] Comment on above: Performed By: #### B MPX, FT4, CDP #### [facility] [employer] [address] [place] [address] Lighting Engineering Technician: Dwain Aldana MD GFR/1.73 sq M.predicted among non-blacks MDRD (S/P/Bld) [Vol rate/Area] mL/min/{1.73_m2} Normal >60 [facility] Comment on above: Result Comment: These [...] By: #### B MPX, FT4, CDP #### [facility] [employer] [address] [place] [address] Lighting Engineering Technician: Dwain Aldana MD Glucose [Mass/Vol] 83 mg/dL Normal 74-99 [facility] Comment on above: Performed By: #### B MPX, FT4, CDP #### [facility] [employer] [address] [place] [address] Lighting Engineering Technician: Dwain Aldana MD Potassium [Moles/Vol] 4.4 mmol/L Normal 3.7-5.3 [facility] Comment on above: Performed By: #### B MPX, FT4, CDP #### [facility] [employer] [address] [place] [address] Lighting Engineering Technician: Dwain Aldana MD Sodium [Moles/Vol] 138 mmol/L Normal 136-145 [facility] Comment on above: Performed By: #### B MPX, FT4, CDP #### [facility] [address] [place], [place] [phone] Lighting Engineering Technician: Dwain Aldana MD Urea nitrogen [Mass/Vol] 12 mg/dL Normal 8-23 [facility] Comment on above: Performed By: #### B MPX, FT4, CDP #### [facility] [address] [place], [place] [phone] Lighting Engineering Technician: Dwain Aldana MD Basic Metabolic Panel w/ Ref merlene to MGon 11-30-2023 Anion gap [Moles/Vol] 4 mmol/L Low 9 - 16 mmol/L [facility] Calcium [Mass/Vol] 6.6 mg/dL Low 8.6 - 10. 4 mg/dL [facility] Chloride [Moles/Vol] 108 mmol/L High 98 - 10 7 mmol/L [facility] [employer] Fwd: Power CO2 [Moles/Vol] 26 mmol/L 20 - 31 mmol/L [facility] Creatinine [Mass/Vol] 0.4 mg/dL Low 0.50 - 0.90 mg/dL [facility] Est, [place] Rate - PINF [facility] Comment on above: These results are [...] [Mass/Vol] 83 mg/dL 74 - 99 mg/dL [facility]: Power Interpretation and review of laboratory results Abnormal [facility] [employer] Fwd: Power Potassium [Moles/Vol] 4.4 mmol/L 3.7 - 5.3 mmol/L [facility] Fwd: Power Sodium [Moles/Vol] 138 mmol/L 136 - 145 mmol/L [facility] [employer] Fwd: Power Urea nitrogen [Mass/Vol] 12 mg/dL 8 - 23 mg/dL [facility] CBC with Auto Differentialon 11-30-2023 Basophils (Bld) [#/Vol] 0.03 10*3/uL [facility] Basophils/100 WBC (Bld) 0 % 0 - 2 % [facility] Eosinophils (Bld) [#/Vol] 0.09 10*3/uL [facility] Eosinophils/100 WBC (Bld) 1 % 1 - 4 % [facility] Erythrocyte distribution width (RBC) [Ratio] 17.1 % High 11.8 - 14.4 % [facility] Hematocrit (Bld) [Volume fraction] 19.8 % Low 36.3 - 47.1 % [facility] Hemoglobin (Bld) [Mass/Vol] 6.2 g/dL Critically low 11.9 - 15.1 g/dL [facility] [facility] Immature granulocytes (Bld) [#/Vol] 0.06 10*3/uL [facility] Immature granulocytes/100 WBC (Bld) 1 % High 0 [facility] Interpretation and review of laboratory results Abnormal [facility] Lymphocytes/100 WBC (Bld) 19 % Low 24 - 43 % [facility] Lymphocytes/100 WBC (Bld) 1.67 % [facility] MCH (RBC) [Entitic mass] 30.7 pg 25.2 - 33.5 pg [facility] MCHC (RBC) [Mass/Vol] 31.3 g/dL 28.4 - 34.8 g/dL [facility] MCV (RBC) [Entitic vol] 98.0 fL 82.6 - 102.9 fL [facility] Monocytes/100 WBC (Bld) 8 % 3 - 12 % [facility] Monocytes/100 WBC (Bld) 0.73 % [facility] Neutrophils/100 WBC (Bld) 70 % High 36 - 65 % [facility] Nucleated RBC/100 WBC (Bld) [Ratio] 0.0 % 0.0 per 100 WBC [facility] Platelet mean volume (Bld) [Entitic vol] 10.3 fL 8.1 - 13.5 fL [facility] Platelets (Bld) [#/Vol] 171 10*3/uL [facility] RBC (Bld) [#/Vol] 2.02 10*6/uL Low 3.95 - 5.11 m/uL [facility] RBC (Bld) [#/Vol] ANISOCYTOSIS PRESENT [facility] Segmented neutrophils/100 WBC (Bld) 6.10 % [facility] WBC other (Bld) [#/Vol] 8.7 [facility] CBC with Diffon 11-30-2023 Abs. Basophil 0.03 k/uL Normal 0.00-0.20 [facility] Comment on above: Performed By: #### B MPX FT4, CDP #### [facility] [address] [place] [address] Lighting Engineering Technician: Dwain Aldana MD Abs.Imm.Granulocyte 0.06 k/uL Normal 0.00-0.30 [facility] Comment on above: Performed By: #### B MPX, FT4, CDP #### [facility] [address] [place] [address] Lighting Engineering Technician: Dwain Aldana MD Abs.Neutrophil (Seg) 6.10 k/uL Normal 1.50-8.10 [facility] Comment on above: Performed By: #### B MPX, FT4, CDP #### [facility] [address] [place] [address] Lighting Engineering Technician: Dwain Aldana MD Basophils/100 WBC (Bld) 0 % Normal 0-2 [facility] Comment on above: Performed By: #### B MPX, FT4, CDP #### [facility] [address] [place] [address] Lighting Engineering Technician: Dwain Aldana MD Eosinophils (Bld) [#/Vol] 0.09 10*3/uL Normal 0.00-0.44 [facility] Comment on above: Performed By: #### B MPX, FT4, CDP #### [facility] [employer] [address] [place] [address] Lighting Engineering Technician: Dwain Aldana MD Eosinophils/100 WBC (Bld) 1 % Normal 1-4 [facility] Comment on above: Performed By: #### B MPX, FT4, CDP #### [address] [address] Lighting Engineering Technician: Dwain Aldana MD Immature granulocytes/100 WBC (Bld) 1 % High 0 [facility] Comment on above: Performed By: #### B MPX, FT4, CDP #### [facility] [employer] [address] [place] [address] Lighting Engineering Technician: Dwain Aldana MD Lymphocytes (Bld) [#/Vol] 1.67 10*3/uL Normal 1.10-3.70 [facility] Comment on above: Performed By: #### B MPX, FT4, CDP #### [facility] [employer] [address] [place] [address] Lighting Engineering Technician: Dwain Aldana MD Lymphocytes/100 WBC (Bld) 19 % Low 24-43 [facility] Comment on above: Performed By: #### B MPX, FT4, CDP #### [facility] [employer] [address] [place] [address] Lighting Engineering Technician: Dwain Aldana MD Monocytes (Bld) [#/Vol] 0.73 10*3/uL Normal 0.10-1.20 [facility] Comment on above: Performed By: #### B MPX, FT4, CDP #### [facility] [employer] [address] [place] [address] Lighting Engineering Technician: Dwain Aldana MD Monocytes/100 WBC (Bld) 8 % Normal 3-12 [facility] Comment on above: Performed By: #### B MPX, FT4, CDP #### [facility] [employer] [address] [place] [address] Lighting Engineering Technician: Dwain Aldana MD Neutrophil (Seg) 70 % High 36-65 [facility] Comment on above: Performed By: #### B MPX, FT4, CDP #### [facility] [place] [address] Lighting Engineering Technician: Dwain Aldana MD Erythrocyte distribution width (RBC) [Ratio] 17.1 % High 11.8-14.4 [facility] Comment on above: Performed By: #### B MPX, FT4, CDP #### [facility] [address] [place] [address] Lighting Engineering Technician: Dwain Aldana MD Hematocrit (Bld) [Volume fraction] 19.8 % Low 36.3-47.1 [facility] Comment on above: Performed By: #### B MPX, FT4, CDP #### [facility] [address] [place] [address] Lighting Engineering Technician: Dwain Aldana MD Hemoglobin (Bld) [Mass/Vol] 6.2 g/dL Critically low 11.9-15.1 [facility] Comment on above: Performed By: #### B MPX, FT4, CDP #### [facility] [employer] [address] [place] [address] Lighting Engineering Technician: Dwain Aldana MD MCH (RBC) [Entitic mass] 30.7 pg Normal 25.2-33.5 [facility] Comment on above: Performed By: #### B MPX, FT4, CDP #### [facility] [address] [place] [address] Lighting Engineering Technician: Dwain Aldana MD MCHC (RBC) [Mass/Vol] 31.3 g/dL Normal 28.4-34.8 [facility] Comment on above: Performed By: #### B MPX, FT4, CDP #### [facility] [employer] [address] [place] [address] Lighting Engineering Technician: Dwain Aldana MD MCV (RBC) [Entitic vol] 98.0 fL Normal 82.6-102.9 [facility] Comment on above: Performed By: #### B MPX, FT4, CDP #### [facility] [employer] [address] [place] [address] Lighting Engineering Technician: Dwain Aldana MD NRBC Automated 0.0 per 100 WBC Normal 0.0 [facility] Comment on above: Performed By: #### B MPX, FT4, CDP #### [facility] [employer] [address] [place] [phone] Lighting Engineering Technician: Dwain Aldana MD Platelet mean volume (Bld) [Entitic vol] 10.3 fL Normal 8.1-13.5 [facility] Comment on above: Performed By: #### B MPX, FT4, CDP #### [facility] [employer] [address] [place] [address] Lighting Engineering Technician: Dwain Aldana MD Platelets (Bld) [#/Vol] 171 10*3/uL Normal 138-453 [facility] Comment on above: Performed By: #### B MPX, FT4, CDP #### [facility] [employer] [address] [place] [address] Lighting Engineering Technician: Dwain Aldana MD RBC (Bld) [#/Vol] 2.02 10*6/uL Low 3.95-5.11 [facility] Comment on above: Performed By: #### B MPX, FT4, CDP #### [facility] [employer] [address] [place] [address] Lighting Engineering Technician: Dwain Aldana MD RBC morphology finding Nom (Bld) ANISOCYTOSIS PRESENT Normal [facility] Comment on above: Performed By: #### B MPX, FT4, CDP #### [facility] [employer] [address] [place] [address] [phone] Lighting Engineering Technician: Dwain Aldana MD WBC (Bld) [#/Vol] 8.7 10*3/uL Normal 3.5-11.3 [facility] Comment on above: Performed By: #### B MPX, FT4, CDP #### [facility] [address] [place] [address] [phone] Lighting Engineering Technician: Dwain Aldana MD Calcium, Ionicon 11-30-2023 Calcium [Moles/Vol] 1.07 mmol/L Low 1.13-1.33 [facility] Comment on above: Performed By: #### B MPX, MG, CDP #### [facility] [address] [place] [address] Lighting Engineering Technician: Dwain Aldana MD Calcium, Ionizedon 4 Calcium.ionized (Bld) [Moles/Vol] 1.07 mmol/L Low 1.13 - 1.33 mmol/L [facility] Cult, Bloodon 11-30-2023 Cult, Blood Specimen Description .BLOOD Special Requests Culture NO GROWTH 5 DAYS Report Status FINAL 11/30/2023 Normal [facility] Comment on above: Performed By: #### B MPX, MG, CDP #### [facility] [address] [place] [address] [phone] Lighting Engineering Technician: Dwain Aldana MD Cult,Bloodon 11-30-2023 Cult,Blood Specimen Description .BLOOD Special Requests Culture NO GROWTH 5 DAYS Report Status FINAL 11/30/2023 [facility] Comment on above: Performed By: #### B MPX, MG, CDP #### [facility] [address] [place] [address] Lighting Engineering Technician: Dwain Aldana MD Culture, Blood 1on 4 Microorganism identified Cx Nom (Unsp spec) NO GROWTH 5 DAYS [facility] Service comment (Unsp spec) [Interp] [facility] Fwd: Power Specimen Description .BLOOD [facility] Fwd: Power Culture, Blood 2on 4 Microorganism identified Cx Nom (Unsp spec) NO GROWTH 5 DAYS [facility] Service comment (Unsp spec) [Interp] [facility] Specimen Description .BLOOD [facility] Glucose,Whole Bloodon 2023 Glucose [Mass/Vol] 79 mg/dL Normal 65-105 [facility] Hemoglobin and Hematocriton 11-30-2023 Hematocrit (Bld) [Volume fraction] 23.8 % Low 36.3 - 47.1 % [facility] Hemoglobin (Bld) [Mass/Vol] 7.9 g/dL Low 11.9 - 15.1 g/dL [facility] Interpretation and review of laboratory results Abnormal [facility] Hematocrit (Bld) [Volume fraction] 27.5 % Low 36.3 - 47.1 % [facility] Hemoglobin (Bld) [Mass/Vol] 8.6 g/dL Low 11.9 - 15.1 g/dL [facility] Interpretation and review of laboratory results Abnormal [facility] Hematocrit (Bld) [Volume fraction] 26.2 % Low 36.3 - 47.1 % [facility] Hemoglobin (Bld) [Mass/Vol] 8.3 g/dL Low 11.9 - 15.1 g/dL [facility] Interpretation and review of laboratory results Abnormal [facility] Hgb/Hcton 11-30-2023 Hematocrit (Bld) [Volume fraction] 23.8 % Low 36.3-47.1 [facility] Comment on above: Performed By: #### H H #### [facility] [address] [place] [address] Lighting Engineering Technician: Dwain Aldana MD Hemoglobin (Bld) [Mass/Vol] 7.9 g/dL Low 11.9-15.1 [facility] Comment on above: Performed By: #### H H #### [facility] [address] [place] [address] Lighting Engineering Technician: Dwain Aldana MD Hematocrit (Bld) [Volume fraction] 27.5 % Low 36.3-47.1 [facility] Comment on above: Performed By: #### B MPX, MG, CDP #### [facility] [address] [place] [phone] Lighting Engineering Technician: Dwain Aldana MD Hemoglobin (Bld) [Mass/Vol] 8.6 g/dL Low 11.9-15.1 [facility] Comment on above: Performed By: #### B MPX, MG, CDP #### [facility] [address] [place] [address] Lighting Engineering Technician: Dwain Aldana MD Hematocrit (Bld) [Volume fraction] 26.2 % Low 36.3-47.1 [facility] Comment on above: Performed By: #### H H #### [facility] [address] [place] [address] Lighting Engineering Technician: Dwain Aldana MD Hemoglobin (Bld) [Mass/Vol] 8.3 g/dL Low 11.9-15.1 [facility] Comment on above: Performed By: #### H H #### [facility] [address] [place] [address] Lighting Engineering Technician: Dwain Aldana MD Lactic Acidon 11-30-2023 Lactic Acid,Whole Bl 0.6 mmol/L Low 0.7-2.1 [facility] Comment on above: Performed By: #### B MPX, MG, CDP #### [facility] [address] [place] [address] Lighting Engineering Technician: Dwain Aldana MD Lactic Acid, Whole Blood 0.6 mmol/L Low 0.7 - 2.1 mmol/L [facility] MRSA DNA Probe, Nasalon MRSA, DNA, Nasal Negative NEGATIVE [facility] Comment on above: NEGATIVE: MRSA DNA n ot detected by nucleic acid amplification. Results should be used as an adjunct to nosocomial control efforts to identify patients needing enhanced precautions. The test is not intended to identify patients with staphylococcal infections. Results should not be used to guide or monitor treatment for MRSA infections. Specimen Description .NASAL SWAB [facility] MRSA, DNA, Nasalon MRSA, DNA, Nasal Negative Normal NEG [facility] Comment on above: Result Comment: NEGA TIVE: MRSA DNA not detected by nucleic acid amplification. Results should be used as an adjunct to nosocomial control efforts to identify patients needing enhanced precautions. The test is not intended to identify patients with staphylococcal infections. Results should not be used to guide or monitor treatment for MRSA infections. Performed By: #### M RSANO #### [facility] [employer] [address] [place] [phone] Lighting Engineering Technician: Dwain Aldana MD No Panel Informationon 11-29 Interpretation and review of laboratory results Abnormal [facility] POC Glucose Fingerstickon Glucose [Mass/Vol] 79 mg/dL 65 - 105 mg/dL [facility] PREVIOUS SPECIMENon 11-30-19 24 [facility] Procalcitoninon 11-30-2023 Procalcitonin 0.05 ng/mL Normal <0.09 [facility] Comment on above: Result Comment: Suspected [...] entered into the Change in Procalcitonin Calculator ([email or web address]) to determine the patient's Mortality Risk Prognosis In healthy neonates, plasma Procalcitonin (PCT) concentrations increase gradually after , reaching peak values at about 24 hours of age then decrease to normal values below 0.5 ng/mL by 48-72 hours of age. Performed By: #### T SHX, PRCAL #### [address] [address] Lighting Engineering Technician: Dwain Aldana MD Specimen Rejectionon 024 Reason for rejection Unable to perform t esting: Specimen clotted. [facility] Comment on above: Performed By: #### H H #### [address] [address] Lighting Engineering Technician: Dwain Aldana MD Source of sample .BLOOD [facility] Comment on above: Performed By: #### H H #### [facility] [employer] [address] [place] [address] Lighting Engineering Technician: Dwain Aldana MD Test ordered [facility] Comment on above: Performed By: #### H H #### [address] [address] Lighting Engineering Technician: Dwain Aldana MD T4, Freeon 11-30-2023 Free T4 [Mass/Vol] 1.3 ng/dL 0.92 - 1.68 ng/dL [facility] Thyroxine, Freeon 11-30-2023 Thyroxine, Free 1.3 ng/dL Normal 0.92-1.68 [facility] Comment on above: Performed By: #### B MPX, MG, CDP #### [address] [phone] Lighting Engineering Technician: Dwain Aldana MD Type + Screenon 11-30-2023 Type + Screen Sample Expiration 12/02/2023,2359 Arm Band Number [id number] ABO/Rh(D) A POSITIVE Antibody Screen NEGATIVE Unit Number [id number] Blood Component Type Leukocyte Reduced Red Cell Unit Division 00 Status of Unit TRANSFUSED Transfusion Status OK TO TRANSFUSE Crossmatch Result COMPATIBLE Unit Number [id number] Blood Component Type Leukocyte Reduced Red Cell Unit Division 00 Status of Unit TRANSFUSED Transfusion Status OK TO TRANSFUSE Crossmatch Result COMPATIBLE Unit Number [id number] Blood Component Type Leukocyte Reduced Red Cell Unit Division 00 Status of Unit TRANSFUSED Transfusion Status OK TO TRANSFUSE Crossmatch Result COMPATIBLE Normal [facility] Comment on above: Performed By: #### H H #### [facility] [employer] [address] [place] [phone] Lighting Engineering Technician: Dwain Aldana MD BLOOD BANK SPECIMENon 2023 [facility] Basic Metab w/rfx MGon 11-28 Anion gap [Moles/Vol] 9 mmol/L Normal 9-16 [facility] Comment on above: Performed By: #### B MPX, MG, CDP #### [facility] [employer] [address] [place] [address] Lighting Engineering Technician: Dwain Aldana MD Calcium [Mass/Vol] 6.7 mg/dL Low 8.6-10.4 [facility] Comment on above: Performed By: #### B MPX, MG, CDP #### [facility] [employer] [address] [place] [address] Lighting Engineering Technician: Dwain Aldana MD Chloride [Moles/Vol] 103 mmol/L Normal 98-107 [facility] Comment on above: Performed By: #### B MPX, MG, CDP #### [facility] [employer] [address] [place] [address] Lighting Engineering Technician: Dwain Aldana MD CO2 [Moles/Vol] 23 mmol/L Normal 20-31 [facility] Comment on above: Performed By: #### B MPX, MG, CDP #### [facility] [employer] [address] [place] [address] Lighting Engineering Technician: Dwain Aldana MD Creatinine [Mass/Vol] 0.4 mg/dL Low 0.50-0.90 [facility] Comment on above: Performed By: #### B MPX, MG, CDP #### [facility] [address] [place] [address] Lighting Engineering Technician: Dwain Aldana MD GFR/1.73 sq M.predicted among non-blacks MDRD (S/P/Bld) [Vol rate/Area] mL/min/{1.73_m2} Normal >60 [facility] Comment on above: Result Comment: These [...] By: #### B MPX, MG, CDP #### [facility] [address] [place] [address] Lighting Engineering Technician: Dwain Aldana MD Glucose [Mass/Vol] 210 mg/dL High 74-99 [facility] Comment on above: Performed By: #### B MPX, MG, CDP #### [facility] [address] [place] [address] Lighting Engineering Technician: Dwain Aldana MD Potassium [Moles/Vol] 3.3 mmol/L Low 3.7-5.3 [facility] Comment on above: Performed By: #### B MPX, MG, CDP #### [facility] [employer] [address] [place] [address] Lighting Engineering Technician: Dwain Aldana MD Sodium [Moles/Vol] 135 mmol/L Low 136-145 [facility] Comment on above: Performed By: #### B MPX, MG, CDP #### [facility] [address] [place] [address] Lighting Engineering Technician: Dwain Aldana MD Urea nitrogen [Mass/Vol] 9 mg/dL Normal 8-23 [facility] Comment on above: Performed By: #### B MPX, MG, CDP #### [facility] [address] [place] [address] Lighting Engineering Technician: Dwain Aldana MD Basic Metabolic Panel w/ Ref merlene to MGon 11-29-2023 Anion gap [Moles/Vol] 9 mmol/L 9 - 16 mmol/L [facility] Calcium [Mass/Vol] 6.7 mg/dL Low 8.6 - 10. 4 mg/dL [facility] Chloride [Moles/Vol] 103 mmol/L 98 - 10 7 mmol/L [facility] CO2 [Moles/Vol] 23 mmol/L 20 - 31 mmol/L [facility] Creatinine [Mass/Vol] 0.4 mg/dL Low 0.50 - 0.90 mg/dL [facility] Est, [place] Garnica Rate - PINF [facility] Comment on above: These results are [...] 210 mg/dL High 74 - 99 mg/dL [facility] Interpretation and review of laboratory results Abnormal [facility] Potassium [Moles/Vol] 3.3 mmol/L Low 3.7 - 5.3 mmol/L [facility] Sodium [Moles/Vol] 135 mmol/L Low 136 - 145 mmol/L [facility] Urea nitrogen [Mass/Vol] 9 mg/dL 8 - 23 mg/dL [facility] CBC with Auto Differentialon 11-29-2023 Basophils (Bld) [#/Vol] 0.03 10*3/uL [facility] Basophils/100 WBC (Bld) 0 % 0 - 2 % [facility] Eosinophils (Bld) [#/Vol] 0.04 10*3/uL [facility] Eosinophils/100 WBC (Bld) 0 % Low 1 - 4 % [facility] Erythrocyte distribution width (RBC) [Ratio] 19.0 % High 11.8 - 14.4 % [facility] Hematocrit (Bld) [Volume fraction] 20.7 % Low 36.3 - 47.1 % [facility] Hemoglobin (Bld) [Mass/Vol] 6.2 g/dL Critically low 11.9 - 15.1 g/dL [facility] Immature granulocytes (Bld) [#/Vol] 0.07 10*3/uL [facility] Immature granulocytes/100 WBC (Bld) 1 % High 0 [facility] Interpretation and review of laboratory results Abnormal [facility] Lymphocytes/100 WBC (Bld) 7 % Low 24 - 43 % [facility] Lymphocytes/100 WBC (Bld) 0.79 % Low [facility] MCH (RBC) [Entitic mass] 30.7 pg 25.2 - 33.5 pg [facility] MCHC (RBC) [Mass/Vol] 30.0 g/dL 28.4 - 34.8 g/dL [facility] MCV (RBC) [Entitic vol] 102.5 fL 82.6 - 102.9 fL [facility] Monocytes/100 WBC (Bld) 4 % 3 - 12 % [facility] Monocytes/100 WBC (Bld) 0.53 % [facility] Neutrophils/100 WBC (Bld) 88 % High 36 - 65 % [facility] Nucleated RBC/100 WBC (Bld) [Ratio] 0.0 % 0.0 per 100 WBC [facility] Platelet mean volume (Bld) [Entitic vol] 10.8 fL 8.1 - 13.5 fL [facility] Platelets (Bld) [#/Vol] 245 10*3/uL [facility] RBC (Bld) [#/Vol] 2.02 10*6/uL Low 3.95 - 5.11 m/uL [facility] RBC (Bld) [#/Vol] ANISOCYTOSIS PRESENT [facility] Segmented neutrophils/100 WBC (Bld) 10.71 % High [facility] WBC other (Bld) [#/Vol] 12.2 High [facility] CBC with Diffon 11-29-2023 Abs. Basophil 0.03 k/uL Normal 0.00-0.20 [facility] Comment on above: Performed By: #### B MPX MG, CDP #### [facility] [address] [place] [address] Lighting Engineering Technician: Dwain Aldana MD Abs.Imm.Granulocyte 0.07 k/uL Normal 0.00-0.30 [facility] Comment on above: Performed By: #### B MPX MG, CDP #### [facility] [employer] [address] [place] [phone] Lighting Engineering Technician: Dwain Aldana MD Abs.Neutrophil (Seg) 10.71 k/uL High 1.50-8.10 [facility] Comment on above: Performed By: #### B MPX, MG, CDP #### [facility] [address] [place] [phone] Lighting Engineering Technician: Dwain Aldana MD Basophils/100 WBC (Bld) 0 % Normal 0-2 [facility] Comment on above: Performed By: #### B MPX, MG, CDP #### [facility] [address] [place] [phone] Lighting Engineering Technician: Dwain Aldana MD Eosinophils (Bld) [#/Vol] 0.04 10*3/uL Normal 0.00-0.44 [facility] Comment on above: Performed By: #### B MPX, MG, CDP #### [facility] [address] [place] [address] Lighting Engineering Technician: Dwain Aldana MD Eosinophils/100 WBC (Bld) 0 % Low 1-4 [facility] Comment on above: Performed By: #### B MPX, MG, CDP #### [facility] [employer] [address] [place] [address] Lighting Engineering Technician: Dwain Aldana MD Erythrocyte distribution width (RBC) [Ratio] 19.0 % High 11.8-14.4 [facility] Comment on above: Performed By: #### B MPX, MG, CDP #### [facility] [address] [place] [phone] Lighting Engineering Technician: Dwain Aldana MD Hematocrit (Bld) [Volume fraction] 20.7 % Low 36.3-47.1 [facility] Comment on above: Performed By: #### B MPX, MG, CDP #### [facility] [employer] [address] [place] [address] Lighting Engineering Technician: Dwain Aldana MD Hemoglobin (Bld) [Mass/Vol] 6.2 g/dL Critically low 11.9-15.1 [facility] Comment on above: Performed By: #### B MPX, MG, CDP #### [facility] [employer] [address] [place] [address] Lighting Engineering Technician: Dwain Aldana MD Immature granulocytes/100 WBC (Bld) 1 % High 0 [facility] Comment on above: Performed By: #### B MPX, MG, CDP #### [facility] [employer] [address] [place] [address] Lighting Engineering Technician: Dwain Aldana MD Lymphocytes (Bld) [#/Vol] 0.79 10*3/uL Low 1.10-3.70 [facility] Comment on above: Performed By: #### B MPX, MG, CDP #### [facility] [employer] [address] [place] [address] Lighting Engineering Technician: Dwain Aldana MD Lymphocytes/100 WBC (Bld) 7 % Low 24-43 [facility] Comment on above: Performed By: #### B MPX, MG, CDP #### [facility] [employer] [address] [place] [address] Lighting Engineering Technician: Dwain Aldana MD MCH (RBC) [Entitic mass] 30.7 pg Normal 25.2-33.5 [facility] Comment on above: Performed By: #### B MPX, MG, CDP #### [facility] [address] [place] [address] Lighting Engineering Technician: Dwain Aldana MD MCHC (RBC) [Mass/Vol] 30.0 g/dL Normal 28.4-34.8 [facility] Comment on above: Performed By: #### B MPX, MG, CDP #### [address] [address] Lighting Engineering Technician: Dwain Aldana MD MCV (RBC) [Entitic vol] 102.5 fL Normal 82.6-102.9 [facility] Comment on above: Performed By: #### B MPX, MG, CDP #### [address] [address] Lighting Engineering Technician: Dwain Aldana MD Monocytes (Bld) [#/Vol] 0.53 10*3/uL Normal 0.10-1.20 [facility] Comment on above: Performed By: #### B MPX, MG, CDP #### [address] [address] Lighting Engineering Technician: Dwain Aldana MD Monocytes/100 WBC (Bld) 4 % Normal 3-12 [facility] Comment on above: Performed By: #### B MPX, MG, CDP #### [facility] [employer] [address] [place] [address] Lighting Engineering Technician: Dwain Aldana MD Neutrophil (Seg) 88 % High 36-65 [facility] Comment on above: Performed By: #### B MPX, MG, CDP #### [address] [address] Lighting Engineering Technician: Dwain Aldana MD NRBC Automated 0.0 per 100 WBC Normal 0.0 [facility] Comment on above: Performed By: #### B MPX, MG, CDP #### [address] [address] Lighting Engineering Technician: Dwain Aldana MD Platelet mean volume (Bld) [Entitic vol] 10.8 fL Normal 8.1-13.5 [facility] Comment on above: Performed By: #### B MPX, MG, CDP #### [address] [address] Lighting Engineering Technician: Dwain Aldana MD Platelets (Bld) [#/Vol] 245 10*3/uL Normal 138-453 [facility] Comment on above: Performed By: #### B MPX, MG, CDP #### [address] [address] Lighting Engineering Technician: Dwain Aldana MD RBC (Bld) [#/Vol] 2.02 10*6/uL Low 3.95-5.11 [facility] Comment on above: Performed By: #### B MPX, MG, CDP #### [address] [address] Lighting Engineering Technician: Dwain Aldana MD RBC morphology finding Nom (Bld) ANISOCYTOSIS PRESENT Normal [facility] Comment on above: Performed By: #### B MPX, MG, CDP #### [address] [address] Lighting Engineering Technician: Dwain Aldana MD WBC (Bld) [#/Vol] 12.2 10*3/uL High 3.5-11.3 [facility] Comment on above: Performed By: #### B MPX, MG, CDP #### [address] [address] Lighting Engineering Technician: Dwain Aldana MD CT SINUS WO CONTRASTon [...] Ion Leon MD 11/29/23 Final result Normal [facility] CT Sinuses WO contraston Chronic sinusitis involving the left maxillary sinus. Potential remote posttraumatic change of the left inferior orbital wall and correlation is needed. [facility] RIS CONSOLIDATED EXAMINATION: CT OF THE SINUS [...] intracranial contents demonstrate no gross acute abnormality. [facility] RIS CONSOLIDATED Ion Leon MD - 11/29/2023 [...] inferior orbital wall and correlation is needed. [facility] Radiology Study observation (narrative) [facility] CTA ABDOMEN PELVIS [facility] CTA ABDOMEN PELVIS W WO CONTRAST [...] Shagufta Echevarria DO 11/29/23 Final result Normal [facility] CTA Abdominal vessels and Pe lvis [...] its branches without evidence of flow-limiting stenosis. [facility] Radiology Study observation (narrative) [facility] CTA Abdominal vessels and Pe lvis vessels WO and W contrast IVOrdered By: Shagufta Echevarria on 11-29-2023 [facility] Work Phone: Hemoglobin and Hematocriton 11-29-2023 Hematocrit (Bld) [Volume fraction] 23.5 % Low 36.3 - 47.1 % [facility] Hemoglobin (Bld) [Mass/Vol] 7.8 g/dL Low 11.9 - 15.1 g/dL [facility] Interpretation and review of laboratory results Abnormal [facility] Hematocrit (Bld) [Volume fraction] 18.8 % Low 36.3 - 47.1 % [facility] Hemoglobin (Bld) [Mass/Vol] 6.0 g/dL Critically low 11.9 - 15.1 g/dL [facility] Interpretation and review of laboratory results Abnormal [facility] Hepatic Function Panelon Albumin [Mass/Vol] 2.1 g/dL Low 3.5 - 5.2 g/dL [facility] Albumin/Globulin [Mass ratio] 2.0 {ratio} 1.0 - 2.5 [facility] ALP [Catalytic activity/Vol] 45 U/L 35 - 104 U/L [facility] ALT [Catalytic activity/Vol] 19 U/L 10 - 35 U/L [facility] AST [Catalytic activity/Vol] 27 U/L 10 - 35 U/L [facility] Bilirubin [Mass/Vol] mg/dL 0.00 - 1.20 mg/dL [facility] Bilirubin.direct [Mass/Vol] mg/dL 0.00 - 0.30 mg/dL [facility] Bilirubin.indirect [Mass/Vol] Can not be calculated 0.0 - 1.0 mg/dL [facility] Globulin (S) [Mass/Vol] 1.4 g/dL [facility] Interpretation and review of laboratory results Abnormal [facility] Protein [Mass/Vol] 3.5 g/dL Low 6.6 - 8.7 g/dL [facility] Hgb/Hcton 11-29-2023 Hematocrit (Bld) [Volume fraction] 23.5 % Low 36.3-47.1 [facility] Comment on above: Performed By: #### H H #### [facility] [address] [place] [address] Lighting Engineering Technician: Dwain Aldana MD Hemoglobin (Bld) [Mass/Vol] 7.8 g/dL Low 11.9-15.1 [facility] Comment on above: Performed By: #### H H #### [facility] [address] [place] [address] Lighting Engineering Technician: Dwain Aldana MD Hematocrit (Bld) [Volume fraction] 18.8 % Low 36.3-47.1 [facility] Comment on above: Performed By: #### H H #### [facility] [employer] [address] [place] [address] Lighting Engineering Technician: Dwain Aldana MD Hemoglobin (Bld) [Mass/Vol] 6.0 g/dL Critically low 11.9-15.1 [facility] Comment on above: Performed By: #### H H #### [facility] [employer] [address] [place] [address] Lighting Engineering Technician: Dwain Aldana MD Liver Profileon 11-29-2023 Albumin [Mass/Vol] 2.1 g/dL Low 3.5-5.2 [facility] Comment on above: Performed By: #### B MPX, MG, CDP #### [facility] [address] [place] [address] Lighting Engineering Technician: Dwain Aldana MD Albumin/Glob Ratio 2.0 Normal 1.0-2.5 [facility] Comment on above: Performed By: #### B MPX, MG, CDP #### [facility] [address] [place] [address] Lighting Engineering Technician: Dwain Aldana MD Alkaline Phos 45 U/L Normal 35-104 [facility] Comment on above: Performed By: #### B MPX, MG, CDP #### [facility] [address] [place] [address] Lighting Engineering Technician: Dwain Aldana MD ALT [Catalytic activity/Vol] 19 U/L Normal 10-35 [facility] Comment on above: Performed By: #### B MPX, MG, CDP #### [facility] [employer] [address] [place] [address] Lighting Engineering Technician: Dwain Aldana MD AST [Catalytic activity/Vol] 27 U/L Normal 10-35 [facility] Comment on above: Performed By: #### B MPX, MG, CDP #### [facility] [employer] [address] [place] [address] Lighting Engineering Technician: Dwain Aldana MD Bilirubin [Mass/Vol] mg/dL Normal 0.00-1.20 [facility] Comment on above: Performed By: #### B MPX, MG, CDP #### [facility] [employer] [address] [place] [address] Lighting Engineering Technician: Dwain Aldana MD Bilirubin, Indirect Can not be calculated Normal 0.0-1 .0 [facility] Comment on above: Performed By: #### B MPX, MG, CDP #### [facility] [address] [place] [address] Lighting Engineering Technician: Dwain Aldana MD Bilirubin.indirect [Mass/Vol] mg/dL Normal 0.00-0.30 [facility] Comment on above: Performed By: #### B MPX, MG, CDP #### [facility] [address] [place] [address] Lighting Engineering Technician: Dwain Aldana MD Globulin (S) [Mass/Vol] 1.4 g/dL Normal [facility] Comment on above: Performed By: #### B MPX, MG, CDP #### [facility] [place] [place] [address] Lighting Engineering Technician: Dwain Aldana MD Protein [Mass/Vol] 3.5 g/dL Low 6.6-8.7 [facility] Comment on above: Performed By: #### B MPX, MG, CDP #### [facility] [address] [place] [address] Lighting Engineering Technician: Dwain Aldana MD MRSA, DNA, Nasalon Specimen Description .NASAL SWAB Normal [facility] Comment on above: Performed By: #### M RSANO #### [facility] [address] [place] [address] Lighting Engineering Technician: Dwain Aldana MD Magnesiumon 5 Magnesium [Mass/Vol] 1.7 mg/dL Normal 1.6-2.4 [facility] Comment on above: Performed By: #### B MPX, MG, CDP #### [facility] [address] [place] [address] Lighting Engineering Technician: Dwain Aldana MD Magnesium [Mass/Vol] 1.7 mg/dL 1.6 - 2 .4 mg/dL [facility] PREVIOUS SPECIMENon 11-29-19 [facility] Procalcitoninon 11-29-2023 Procalcitonin [Mass/Vol] 0.05 ng/mL NINF - 0.09 ng/mL [facility] Comment on above: Suspected Sepsis: [...] entered into the Change in Procalcitonin Calculator ([email or web address]) to determine the patient's Mortality Risk Prognosis In healthy neonates, plasma Procalcitonin (PCT) concentrations increase gradually after , reaching peak values at about 24 hours of age then decrease to normal values below 0.5 ng/mL by 48-72 hours of age. [facility] Specimen Rejectionon 024 Reason for rejection Unable to perform t esting: Specimen quantity not sufficient. [facility] Comment on above: Performed By: #### T JEAN PRCAL #### [facility] [address] [place] [address] Lighting Engineering Technician: Dwain Aldana MD Source of sample .BLOOD [facility] Comment on above: Performed By: #### Shaquille PENA PRCAL #### [facility] [address] [place], [place] [phone] Lighting Engineering Technician: Dwain Aldana MD Test ordered [facility] Comment on above: Performed By: #### Shaquille PENA PRCAL #### [facility] [address] [place] [address] [phone] Lighting Engineering Technician: Dwain Aldana MD TSH w/reflex to FT4on 2023 Thyroid Stim. Horm. 9.13 uIU/mL High 0.27-4.20 [facility] Comment on above: Performed By: #### T LISAX, PRCAL #### [facility] [address] [place] [address] Lighting Engineering Technician: Dwain Aldana MD TSH with Reflexon 11-29-2023 Interpretation and review of laboratory results Abnormal [facility] TSH Qn 9.13 m[IU]/L High [facility] Basic Metab w/rfx MGon 11-27 Anion gap [Moles/Vol] 9 mmol/L Normal 9-16 [facility] Comment on above: Performed By: #### T LISAX, PRCAL #### [address] [address] Lighting Engineering Technician: Dwain Aldana MD Calcium [Mass/Vol] 6.4 mg/dL Low 8.6-10.4 [facility] Comment on above: Performed By: #### T LISAX, PRCAL #### [address] [address] Lighting Engineering Technician: Dwain Aldana MD Chloride [Moles/Vol] 105 mmol/L Normal 98-107 [facility] Comment on above: Performed By: #### T LISAX, PRCAL #### [facility] [employer] [address] [place] [address] Lighting Engineering Technician: Dwain Aldana MD CO2 [Moles/Vol] 21 mmol/L Normal 20-31 [facility] Comment on above: Performed By: #### T LISAX, PRCAL #### [facility] [employer] [address] [place] [address] Lighting Engineering Technician: Dwain Aldana MD Creatinine [Mass/Vol] 0.3 mg/dL Low 0.50-0.90 [facility] Comment on above: Performed By: #### T LISAX, PRCAL #### [address] [address] Lighting Engineering Technician: Dwain Aldana MD GFR/1.73 sq M.predicted among non-blacks MDRD (S/P/Bld) [Vol rate/Area] mL/min/{1.73_m2} Normal >60 [facility] Comment on above: Result Comment: These [...] Performed By: #### T LISAX, PRCAL #### [facility] [address] [place] [address] Lighting Engineering Technician: Dwain Aldana MD Glucose [Mass/Vol] 88 mg/dL Normal 74-99 [facility] Comment on above: Performed By: #### T LISAX, PRCAL #### [facility] [address] [place] [address] Lighting Engineering Technician: Dwain Aldana MD Potassium [Moles/Vol] 3.7 mmol/L Normal 3.7-5.3 [facility] Comment on above: Performed By: #### T LISAX, PRCAL #### [facility] [employer] [address] [place] [address] Lighting Engineering Technician: Dwain Aldana MD Sodium [Moles/Vol] 135 mmol/L Low 136-145 [facility] Comment on above: Performed By: #### T LISAX, PRCAL #### [facility] [employer] [address] [place] [address] Lighting Engineering Technician: Dwain Aldana MD Urea nitrogen [Mass/Vol] 10 mg/dL Normal 8-23 [facility] Comment on above: Performed By: #### T LISAX, PRCAL #### [facility] [employer] [address] [place] [address] Lighting Engineering Technician: Dwain Aldana MD Basic Metabolic Panel w/ Ref merlene to MGon 11-28-2023 Anion gap [Moles/Vol] 9 mmol/L 9 - 16 mmol/L [facility] Calcium [Mass/Vol] 6.4 mg/dL Low 8.6 - 10. 4 mg/dL [facility] Chloride [Moles/Vol] 105 mmol/L 98 - 10 7 mmol/L [facility] CO2 [Moles/Vol] 21 mmol/L 20 - 31 mmol/L [facility] Creatinine [Mass/Vol] 0.3 mg/dL Low 0.50 - 0.90 mg/dL [facility] Est, [place] Rate - PIN[facility] Comment on above: These results are [...] [Mass/Vol] 88 mg/dL 74 - 99 mg/dL [facility] Interpretation and review of laboratory results Abnormal [facility] Potassium [Moles/Vol] 3.7 mmol/L 3.7 - 5.3 mmol/L [facility] Sodium [Moles/Vol] 135 mmol/L Low 136 - 145 mmol/L [facility] Urea nitrogen [Mass/Vol] 10 mg/dL 8 - 23 mg/dL [facility] Hgb/Hcton 11-28-2023 Hematocrit (Bld) [Volume fraction] 24.0 % Low 36.3-47.1 [facility] Comment on above: Performed By: #### H H #### [facility] [address] [place] [address] Lighting Engineering Technician: Dwain Aldana MD Hemoglobin (Bld) [Mass/Vol] 7.5 g/dL Low 11.9-15.1 [facility] Comment on above: Performed By: #### H H #### [facility] [address] [place], [place] [phone] Lighting Engineering Technician: Dwain Aldana MD IR EMBOLIZATION HEMORRHAGEon 11-28-2023 Contrast extravasati on via truncated duodenal side-branch GDA with successful coil embolization, as above. [facility] Jorge Day MD - 11/28/2023 PROCEDURE: IR EMBOLIZATION VASCULAR ANY HEMORRHAGE 11/27/2023 HISTORY: ORDERING SYSTEM PROVIDED HISTORY: Embolization of GDA/GI bleed TECHNOLOGIST PROVIDED HISTORY: Embolization of GDA/GI bleed CONTRAST: Isovue 370-110 mL SEDATION: Fentanyl 50 mcg IV for discomfort. Medications were provided and recorded by Radiology nurses. FLUOROSCOPY DOSE AND TYPE: Fluoroscopy time-15.7 minutes. Radiation Exposure Index: DAP cGy*m2, 35467 DESCRIPTION OF PROCEDURE: Arteries interrogated: Celiac, GDA, [...] for a 0.035 inch wire and 5 [place] introducer sheath. Randal 5 [place] x 65 cm catheter was introduced and the celiac artery catheterize; hand celiac angiography was performed. A 0.035 inch glidewire was manipulated into the distal hepatic arteries, catheter exchanged for a 5 [place] Cobra glide catheter which was manipulated into the origin GDA. Digital angiography was then performed. [place] delivery microcatheter 45 degree tip was then [...] removed. Subsequent hand injection via the 5 [place] catheter the proper hepatic was performed. The guide catheter was removed, and the Randal catheter reinserted. Celiac and SMA digital angiography were then performed. The Randal catheter was removed. Hand digital angiography right iliofemoral vessels was performed at the groin. The right groin was re-prepped, and a 5 [place] Vascade closure device was deployed right TAKE DOWN INSPECTOR. The patient tolerated procedure well and there [...] or site of bleeding identified. Normal right TAKE DOWN INSPECTOR entry site pre closure device placement. 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 [facility] IR EMBOLIZATION HEMORRHAGEOr dered By: Jorge Russo on 11-28-2023 [facility] Work Phone: No Panel Informationon 11-27 Blood Bank Blood Product Expiration Date [id number] [facility] Blood Bank ISBT Product Blood Type 6200 [facility] Blood Bank Unit Type and Rh Positive [facility] Component Leukocyte Reduced Red Cell [facility] Crossmatch Result COMPATIBLE [facility] Dispense Status Blood Bank TRANSFUSED [facility] Product Code Blood Bank [id number] [facility] Transfusion Status OK TO TRANSFUSE B ON [facility] Unit Divison 0 [facility] TYPE AND SCREENon 11-28-2023 ABO/Rh Positive [facility] Arm Band Number [id number] [facility] Blood Bank Blood Product Expiration Date [facility] Blood Bank Sample Expiration 11/28/2023,2359 [facility] Blood product unit ID (Dose) [#] [id number] [facility] Blood product unit ID (Dose) [#] [id number] [facility] Blood product unit ID (Dose) [#] [id number] [facility] Unit Issue Date/Time [id number] [facility] Unit Issue Date/Time [id number] [facility] Unit Issue Date/Time [id number] [facility] Type + Screenon 11-28-2023 Type + Screen Sample Expiration 11/28/2023,2359 Arm Band Number [id number] ABO/Rh(D) A POSITIVE Antibody Screen NEGATIVE Unit Number [id number] Blood Component Type Leukocyte Reduced Red Cell Unit Division 00 Status of Unit TRANSFUSED Transfusion Status OK TO TRANSFUSE Crossmatch Result COMPATIBLE Unit Number [id number] Blood Component Type Leukocyte Reduced Red Cell Unit Division 00 Status of Unit TRANSFUSED Transfusion Status OK TO TRANSFUSE Crossmatch Result COMPATIBLE Unit Number [id number] Blood Component Type Leukocyte Reduced Red Cell Unit Division 00 Status of Unit TRANSFUSED Transfusion Status OK TO TRANSFUSE Crossmatch Result COMPATIBLE Normal [facility] Comment on above: Performed By: #### H H #### [address] [address] Lighting Engineering Technician: Dwain Aldana MD Basic Metab w/rfx MGon 11-26 Anion gap [Moles/Vol] 7 mmol/L Low 9-16 [facility] Comment on above: Performed By: #### B MPX, MG, CDP #### [facility] [employer] [address] [place] [address] Lighting Engineering Technician: Dwain Aldana MD Calcium [Mass/Vol] 6.3 mg/dL Low 8.6-10.4 [facility] Comment on above: Performed By: #### B MPX, MG, CDP #### [facility] [address] [place] [address] Lighting Engineering Technician: Dwain Aldana MD Chloride [Moles/Vol] 105 mmol/L Normal 98-107 [facility] Comment on above: Performed By: #### B MPX, MG, CDP #### [facility] [address] [place] [address] Lighting Engineering Technician: Dwain Aldana MD CO2 [Moles/Vol] 22 mmol/L Normal 20-31 [facility] Comment on above: Performed By: #### B MPX, MG, CDP #### [facility] [address] [place] [address] Lighting Engineering Technician: Dwain Aldana MD Creatinine [Mass/Vol] 0.4 mg/dL Low 0.50-0.90 [facility] Comment on above: Performed By: #### B MPX, MG, CDP #### [facility] [employer] [address] [place] [address] Lighting Engineering Technician: Dwain Aldana MD GFR/1.73 sq M.predicted among non-blacks MDRD (S/P/Bld) [Vol rate/Area] mL/min/{1.73_m2} Normal >60 [facility] Comment on above: Result Comment: These [...] By: #### B MPX, MG, CDP #### [employer] [address] [place] [address] Lighting Engineering Technician: Dwain Aldana MD Glucose [Mass/Vol] 83 mg/dL Normal 74-99 [facility] Comment on above: Performed By: #### B MPX, MG, CDP #### [facility] [employer] [address] [place] [address] Lighting Engineering Technician: Dwain Aldana MD Potassium [Moles/Vol] 3.4 mmol/L Low 3.7-5.3 [facility] Comment on above: Performed By: #### B MPX, MG, CDP #### [facility] [employer] [address] [place] [address] Lighting Engineering Technician: Dwain Aldana MD Sodium [Moles/Vol] 134 mmol/L Low 136-145 [facility] Comment on above: Performed By: #### B MPX, MG, CDP #### [facility] [employer] [address] [place] [address] Lighting Engineering Technician: Dwain Aldana MD Urea nitrogen [Mass/Vol] 7 mg/dL Low 8-23 [facility] Comment on above: Performed By: #### B MPX, MG, CDP #### [facility] [address] [place] [address] Lighting Engineering Technician: Dwain Aldana MD Basic Metabolic Panel w/ Ref merlene to MGon 11-27-2023 Anion gap [Moles/Vol] 7 mmol/L Low 9 - 16 mmol/L [facility] Calcium [Mass/Vol] 6.3 mg/dL Low 8.6 - 10. 4 mg/dL [facility] Chloride [Moles/Vol] 105 mmol/L 98 - 10 7 mmol/L [facility] CO2 [Moles/Vol] 22 mmol/L 20 - 31 mmol/L [facility] Creatinine [Mass/Vol] 0.4 mg/dL Low 0.50 - 0.90 mg/dL [facility] Fwd: Power Est, Glom Filt Rate - PINF [facility] Comment on above: These results are [...] [Mass/Vol] 83 mg/dL 74 - 99 mg/dL [facility] Interpretation and review of laboratory results Abnormal [facility] Potassium [Moles/Vol] 3.4 mmol/L Low 3.7 - 5.3 mmol/L [facility] Sodium [Moles/Vol] 134 mmol/L Low 136 - 145 mmol/L [facility] Urea nitrogen [Mass/Vol] 7 mg/dL Low 8 - 23 mg/dL [facility] Hemoglobin and Hematocriton 11-27-2023 Hematocrit (Bld) [Volume fraction] 17.9 % Low 36.3 - 47.1 % [facility] Hemoglobin (Bld) [Mass/Vol] 5.7 g/dL Critically low 11.9 - 15.1 g/dL [facility] Interpretation and review of laboratory results Abnormal [facility] Hematocrit (Bld) [Volume fraction] 18.0 % Low 36.3 - 47.1 % [facility] Hemoglobin (Bld) [Mass/Vol] 5.9 g/dL Critically low 11.9 - 15.1 g/dL [facility] Interpretation and review of laboratory results Abnormal [facility] Hematocrit (Bld) [Volume fraction] 23.0 % Low 36.3 - 47.1 % [facility] Hemoglobin (Bld) [Mass/Vol] 7.2 g/dL Low 11.9 - 15.1 g/dL [facility] Interpretation and review of laboratory results Abnormal [facility] Hematocrit (Bld) [Volume fraction] 22.0 % Low 36.3 - 47.1 % [facility] Hemoglobin (Bld) [Mass/Vol] 7.2 g/dL Low 11.9 - 15.1 g/dL [facility] Interpretation and review of laboratory results Abnormal [facility] Hgb/Hcton 11-27-2023 Hematocrit (Bld) [Volume fraction] 17.9 % Low 36.3-47.1 [facility] Comment on above: Performed By: #### B MPX, MG, CDP #### [facility] [address] [place] [phone] Lighting Engineering Technician: Dwain Aldana MD Hemoglobin (Bld) [Mass/Vol] 5.7 g/dL Critically low 11.9-15.1 [facility] Comment on above: Performed By: #### B MPX, MG, CDP #### [facility] [address] [place] [address] Lighting Engineering Technician: Dwain lAdana MD Hematocrit (Bld) [Volume fraction] 18.0 % Low 36.3-47.1 [facility] Comment on above: Performed By: #### H H #### [facility] [address] [place] [phone] Lighting Engineering Technician: Dwain Aldana MD Hemoglobin (Bld) [Mass/Vol] 5.9 g/dL Critically low 11.9-15.1 [facility] Comment on above: Performed By: #### H H #### [facility] [address] [place] [phone] Lighting Engineering Technician: Dwain Aldana MD Hematocrit (Bld) [Volume fraction] 23.0 % Low 36.3-47.1 [facility] Comment on above: Performed By: #### H H #### [address] [address] Lighting Engineering Technician: Dwain Aldana MD Hemoglobin (Bld) [Mass/Vol] 7.2 g/dL Low 11.9-15.1 [facility] Comment on above: Performed By: #### H H #### [facility] [employer] [address] [place] [address]61 Lighting Engineering Technician: Dwain Aldana MD Hematocrit (Bld) [Volume fraction] 22.0 % Low 36.3-47.1 [facility] Comment on above: Performed By: #### H H #### [facility] [employer] [address] [place] [address] Lighting Engineering Technician: Dwain Aldana MD Hemoglobin (Bld) [Mass/Vol] 7.2 g/dL Low 11.9-15.1 [facility] Comment on above: Performed By: #### H H #### [facility] [employer] [address] [place] [address] Lighting Engineering Technician: Dwain Aldana MD Hematocrit (Bld) [Volume fraction] 24.3 % Low 36.3-47.1 [facility] Comment on above: Performed By: #### H H #### [facility] [address] [place] [address] Lighting Engineering Technician: Dwain Aldana MD Hemoglobin (Bld) [Mass/Vol] 7.7 g/dL Low 11.9-15.1 [facility] Comment on above: Performed By: #### H H #### [facility] [address] [place] [address] Lighting Engineering Technician: Dwain Aldana MD Magnesiumon 11-27-2023 Magnesium [Mass/Vol] 1.9 mg/dL Normal 1.6-2.4 [facility] Comment on above: Performed By: #### B MPX, MG, CDP #### [facility] [address] [place] [address] Lighting Engineering Technician: Dwain Aldana MD Magnesium [Mass/Vol] 1.9 mg/dL 1.6 - 2 .4 mg/dL [facility] No Panel Informationon 11-26 Radiology Study observation (narrative) [facility] Portable XR Chest AP single [...] with pneumonia. Trace left basilar effusion. [facility] [employer] Portable XR Chest AP single viewOrdered By: Ion Leon on 11-27-2023 [facility] Fwd: Power Work Phone: XR CHEST PORTABLEon 11-27-19 XR [...] Ion Leon MD 11/27/23 Final result Normal [facility] Basic Metab w/rfx MGon 11-25 Anion gap [Moles/Vol] 11 mmol/L Normal 9-16 [facility] Comment on above: Performed By: #### B MPX, MG, CDP #### [facility] [address] [place] [address] [phone] Lighting Engineering Technician: Dwain Aldana MD Calcium [Mass/Vol] 6.3 mg/dL Low 8.6-10.4 [facility] Comment on above: Performed By: #### B MPX, MG, CDP #### [facility] [address] [place] [address] [phone] Lighting Engineering Technician: Dwain Aldana MD Chloride [Moles/Vol] 112 mmol/L High 98-107 [facility] Comment on above: Performed By: #### B MPX, MG, CDP #### [facility] [place] [address] Lighting Engineering Technician: Dwain Aldana MD CO2 [Moles/Vol] 17 mmol/L Low 20-31 [facility] Comment on above: Performed By: #### B MPX, MG, CDP #### [facility] [address] [place] [address] Lighting Engineering Technician: Dwain Aldana MD Creatinine [Mass/Vol] 0.3 mg/dL Low 0.50-0.90 [facility] Comment on above: Performed By: #### B MPX, MG, CDP #### [address] [address] Lighting Engineering Technician: Dwain Aldana MD GFR/1.73 sq M.predicted among non-blacks MDRD (S/P/Bld) [Vol rate/Area] mL/min/{1.73_m2} Normal >60 [facility] Comment on above: Result Comment: These [...] By: #### B MPX, MG, CDP #### [facility] [employer] [address] [place] [phone] Lighting Engineering Technician: Dwain Aldana MD Glucose [Mass/Vol] 82 mg/dL Normal 74-99 [facility] Comment on above: Performed By: #### B MPX, MG, CDP #### [facility] [employer] [address] [place] [address] Lighting Engineering Technician: Dwain Aldana MD Potassium [Moles/Vol] 3.4 mmol/L Low 3.7-5.3 [facility] Comment on above: Performed By: #### B MPX, MG, CDP #### [facility] [address] [place], [place] [phone] Lighting Engineering Technician: Dwain Aldana MD Sodium [Moles/Vol] 140 mmol/L Normal 136-145 [facility] Comment on above: Performed By: #### B MPX, MG, CDP #### [facility] [address] [place], [place] [phone] Lighting Engineering Technician: Dwain Aldana MD Urea nitrogen [Mass/Vol] 9 mg/dL Normal 8-23 [facility] Comment on above: Performed By: #### B MPX, MG, CDP #### [facility] [address] [place], [place] [phone] Lighting Engineering Technician: Dwain Aldana MD Basic Metabolic Panel w/ Ref merlene to on 11-26-2023 Anion gap [Moles/Vol] 11 mmol/L 9 - 16 mmol/L [facility] Fwd: Power Calcium [Mass/Vol] 6.3 mg/dL Low 8.6 - 10. 4 mg/dL [facility] [employer] [facility]communication[facility] Chloride [Moles/Vol] 112 mmol/L High 98 - 10 7 mmol/L [facility] [employer] Fwd: Power CO2 [Moles/Vol] 17 mmol/L Low 20 - 31 mmol/L [facility] [employer] [facility]communication[facility] Creatinine [Mass/Vol] 0.3 mg/dL Low 0.50 - 0.90 mg/dL [facility]uma-id Est, [place] Garnica Rate - PINF [facility] Comment on above: These results are [...] [Mass/Vol] 82 mg/dL 74 - 99 mg/dL [facility] Interpretation and review of laboratory results Abnormal [facility] [employer] Potassium [Moles/Vol] 3.4 mmol/L Low 3.7 - 5.3 mmol/L [facility] Sodium [Moles/Vol] 140 mmol/L 136 - 145 mmol/L [facility] Urea nitrogen [Mass/Vol] 9 mg/dL 8 - 23 mg/dL [facility] Hemoglobin and Hematocriton 11-26-2023 Hematocrit (Bld) [Volume fraction] 24.3 % Low 36.3 - 47.1 % [facility] Hemoglobin (Bld) [Mass/Vol] 7.7 g/dL Low 11.9 - 15.1 g/dL [facility] Interpretation and review of laboratory results Abnormal [facility] Hematocrit (Bld) [Volume fraction] 24.6 % Low 36.3 - 47.1 % [facility] Hemoglobin (Bld) [Mass/Vol] 8.1 g/dL Low 11.9 - 15.1 g/dL [facility] Interpretation and review of laboratory results Abnormal [facility] Hematocrit (Bld) [Volume fraction] 26.7 % Low 36.3 - 47.1 % [facility] Hemoglobin (Bld) [Mass/Vol] 8.6 g/dL Low 11.9 - 15.1 g/dL [facility] Interpretation and review of laboratory results Abnormal [facility] Hematocrit (Bld) [Volume fraction] 26.3 % Low 36.3 - 47.1 % [facility] Hemoglobin (Bld) [Mass/Vol] 8.1 g/dL Low 11.9 - 15.1 g/dL [facility] Interpretation and review of laboratory results Abnormal [facility] Hgb/Hcton 11-26-2023 Hematocrit (Bld) [Volume fraction] 24.6 % Low 36.3-47.1 [facility] Comment on above: Performed By: #### H H #### [facility] [place] [address] Lighting Engineering Technician: Dwain Aldana MD Hemoglobin (Bld) [Mass/Vol] 8.1 g/dL Low 11.9-15.1 [facility] Comment on above: Performed By: #### H H #### [facility] [address] [place] [phone] Lighting Engineering Technician: Dwain Aldana MD Hematocrit (Bld) [Volume fraction] 26.7 % Low 36.3-47.1 [facility] Comment on above: Performed By: #### T SHX, PRCAL #### [facility] [address] [place] [phone] Lighting Engineering Technician: Dwain Aldana MD Hemoglobin (Bld) [Mass/Vol] 8.6 g/dL Low 11.9-15.1 [facility] Comment on above: Performed By: #### T SHX, PRCAL #### [facility] [address] [place] [address] Lighting Engineering Technician: Dwain Aldana MD Hematocrit (Bld) [Volume fraction] 26.3 % Low 36.3-47.1 [facility] Comment on above: Performed By: #### B MPX, MG, CDP #### [facility] [address] [place] [address] 95687 Lighting Engineering Technician: Dwain Aldana MD Hemoglobin (Bld) [Mass/Vol] 8.1 g/dL Low 11.9-15.1 [facility] Comment on above: Performed By: #### B MPX, MG, CDP #### [facility] [employer] [address] [place] [address] 39538 Lighting Engineering Technician: Dwain Aldana MD Hematocrit (Bld) [Volume fraction] 24.6 % Low 36.3-47.1 [facility] Comment on above: Performed By: #### B MPX, MG, CDP #### [facility] [address] [place] [phone] Lighting Engineering Technician: Dwain Aldana MD Hemoglobin (Bld) [Mass/Vol] 8.5 g/dL Low 11.9-15.1 [facility] Comment on above: Performed By: #### B MG ALEKS, CDP #### [facility] [address] [place] [address] [phone] Lighting Engineering Technician: Dwain Aldana MD Magnesiumon 11-26-2023 Magnesium [Mass/Vol] 1.5 mg/dL Low 1.6-2.4 [facility] Comment on above: Performed By: #### B SWATHIX MG, CDP #### [facility] [address] [place] [address] [phone] Lighting Engineering Technician: Dwain Aldana MD Interpretation and review of laboratory results Abnormal [facility] Magnesium [Mass/Vol] 1.5 mg/dL Low 1.6 - 2 .4 mg/dL [facility] APTTon 11-25-2023 aPTT Coag (Bld) [Time] 25.5 s Normal 23.0-36.5 [facility] Comment on above: Result Comment: IV Heparin Therapy Range: 66.0-92.0 sec Performed By: #### B MG ALEKS, CDP #### [facility] [address] [place], [place] [phone] Lighting Engineering Technician: Dwain Aldana MD aPTT Coag (Bld) [Time] 25.5 s [facility] Comment on above: IV Heparin Therapy Range: 66.0-92.0 sec BLOOD BANK SPECIMENon 2023 [facility] Basic Metab w/rfx MGon 11-24 Anion gap [Moles/Vol] 7 mmol/L Low 9-16 [facility] Comment on above: Performed By: #### B MG ALEKS, CDP #### [facility] [address] [place] [phone] Lighting Engineering Technician: Dwain Aldana MD Calcium [Mass/Vol] 6.6 mg/dL Low 8.6-10.4 [facility] Comment on above: Performed By: #### B MPX, MG, CDP #### [facility] [address] [place] [phone] Lighting Engineering Technician: Dwain Aldana MD Chloride [Moles/Vol] 108 mmol/L High 98-107 [facility] Comment on above: Performed By: #### B MPX, MG, CDP #### [facility] [address] [place] [address] 11448 Lighting Engineering Technician: Dwain Aldana MD CO2 [Moles/Vol] 23 mmol/L Normal 20-31 [facility] Comment on above: Performed By: #### B MPX, MG, CDP #### [facility] [address] [place] [address] 13569 Lighting Engineering Technician: Dwain Aldana MD Creatinine [Mass/Vol] 0.4 mg/dL Low 0.50-0.90 [facility] Comment on above: Performed By: #### B MPX, MG, CDP #### [facility] [address] [place] [address] [phone] Lighting Engineering Technician: Dwain Aldana MD GFR/1.73 sq M.predicted among non-blacks MDRD (S/P/Bld) [Vol rate/Area] mL/min/{1.73_m2} Normal >60 [facility] Comment on above: Result Comment: These [...] B MPX, MG, CDP #### [facility] [address] [place] [phone] Lighting Engineering Technician: Dwain Aldana MD Glucose [Mass/Vol] 81 mg/dL Normal 74-99 [facility] Comment on above: Performed By: #### B MPX, MG, CDP #### [facility] [address] [place] [address] Lighting Engineering Technician: Dwain Aldana MD Potassium [Moles/Vol] 3.6 mmol/L Low 3.7-5.3 [facility] Comment on above: Performed By: #### B MPX, MG, CDP #### [facility] [address] [place] [address] Lighting Engineering Technician: Dwain Aldana MD Sodium [Moles/Vol] 138 mmol/L Normal 136-145 [facility] Comment on above: Performed By: #### B MPX, MG, CDP #### [facility] [address] [place] [address] Lighting Engineering Technician: Dwain Aldana MD Urea nitrogen [Mass/Vol] 13 mg/dL Normal 8-23 [facility] Comment on above: Performed By: #### B MPX, MG, CDP #### [facility] [address] [place] [address] Lighting Engineering Technician: Dwain Aldana MD Basic Metabolic Panel w/ Ref merlene to [facility] 11-25-2023 Anion gap [Moles/Vol] 7 mmol/L Low 9 - 16 mmol/L [facility] Fwd: Power Calcium [Mass/Vol] 6.6 mg/dL Low 8.6 - 10. 4 mg/dL [facility] Fwd: Power Chloride [Moles/Vol] 108 mmol/L High 98 - 10 7 mmol/L [facility] Fwd: Power CO2 [Moles/Vol] 23 mmol/L 20 - 31 mmol/L [facility] Creatinine [Mass/Vol] 0.4 mg/dL Low 0.50 - 0.90 mg/dL [facility] Fwd: Power EstLake Rate - PINF [facility] Comment on above: These results are [...] [Mass/Vol] 81 mg/dL 74 - 99 mg/dL [facility] Interpretation and review of laboratory results Abnormal [facility] Potassium [Moles/Vol] 3.6 mmol/L Low 3.7 - 5.3 mmol/L [facility] Sodium [Moles/Vol] 138 mmol/L 136 - 145 mmol/L [facility] Urea nitrogen [Mass/Vol] 13 mg/dL 8 - 23 mg/dL [facility] CBC with Auto Differentialon 11-25-2023 Basophils (Bld) [#/Vol] 0.03 10*3/uL [facility] Basophils/100 WBC (Bld) 0 % 0 - 2 % [facility] Eosinophils (Bld) [#/Vol] 0.05 10*3/uL [facility] Eosinophils/100 WBC (Bld) 1 % 1 - 4 % [facility] Erythrocyte distribution width (RBC) [Ratio] 19.9 % High 11.8 - 14.4 % [facility] Hematocrit (Bld) [Volume fraction] 19.9 % Low 36.3 - 47.1 % [facility] Hemoglobin (Bld) [Mass/Vol] 5.8 g/dL Critically low 11.9 - 15.1 g/dL [facility] Immature granulocytes (Bld) [#/Vol] 0.06 10*3/uL [facility] Immature granulocytes/100 WBC (Bld) 1 % High 0 [facility] Interpretation and review of laboratory results Abnormal [facility] Lymphocytes/100 WBC (Bld) 18 % Low 24 - 43 % [facility] Lymphocytes/100 WBC (Bld) 1.67 % [facility] MCH (RBC) [Entitic mass] 29.7 pg 25.2 - 33.5 pg [facility] MCHC (RBC) [Mass/Vol] 29.1 g/dL 28.4 - 34.8 g/dL [facility] MCV (RBC) [Entitic vol] 102.1 fL 82.6 - 102.9 fL [facility] Monocytes/100 WBC (Bld) 8 % 3 - 12 % [facility] Monocytes/100 WBC (Bld) 0.72 % [facility] Neutrophils/100 WBC (Bld) 73 % High 36 - 65 % [facility] Nucleated RBC/100 WBC (Bld) [Ratio] 0.0 % 0.0 per 100 WBC [facility] HOSPITALMemobox Platelet mean volume (Bld) [Entitic vol] 11.5 fL 8.1 - 13.5 fL [facility] Platelets (Bld) [#/Vol] 186 10*3/uL [facility] RBC (Bld) [#/Vol] 1.95 10*6/uL Low 3.95 - 5.11 m/uL [facility] RBC (Bld) [#/Vol] ANISOCYTOSIS PRESENT [facility] Fwd: Power Segmented neutrophils/100 WBC (Bld) 6.93 % [facility] Fwd: Power WBC other (Bld) [#/Vol] 9.5 [facility]OSPITALJoox [facility]ENTERTink [facility] HOSPITALJoox [facility] CBC with Diffon 11-25-2023 Abs. Basophil 0.03 k/uL Normal 0.00-0.20 [facility] Comment on above: Performed By: #### B MPX, MG, CDP #### [facility] [address] [place], [place] [phone] Lighting Engineering Technician: Dwain Aldana MD Abs.Imm.Granulocyte 0.06 k/uL Normal 0.00-0.30 [facility] Comment on above: Performed By: #### B MPX, MG, CDP #### [facility] [address] [place] [address] Lighting Engineering Technician: Dwain Aldana MD Abs.Neutrophil (Seg) 6.93 k/uL Normal 1.50-8.10 [facility] Comment on above: Performed By: #### B MPX, MG, CDP #### [facility] [address] [place] [address] Lighting Engineering Technician: Dwain Aldana MD Basophils/100 WBC (Bld) 0 % Normal 0-2 [facility] Comment on above: Performed By: #### B MPX, MG, CDP #### [facility] [address] [address] Lighting Engineering Technician: Dwain Aldana MD Eosinophils (Bld) [#/Vol] 0.05 10*3/uL Normal 0.00-0.44 [facility] Comment on above: Performed By: #### B MPX, MG, CDP #### [address] [address] Lighting Engineering Technician: Dwain Aldana MD Eosinophils/100 WBC (Bld) 1 % Normal 1-4 [facility] Comment on above: Performed By: #### B MPX, MG, CDP #### [address] [address] Lighting Engineering Technician: Dwain Aldana MD Erythrocyte distribution width (RBC) [Ratio] 19.9 % High 11.8-14.4 [facility] Comment on above: Performed By: #### B MPX, MG, CDP #### [facility] [employer] [address] [place] [phone] Lighting Engineering Technician: Dwain Aldana MD Hematocrit (Bld) [Volume fraction] 19.9 % Low 36.3-47.1 [facility] Comment on above: Performed By: #### B MPX, MG, CDP #### [facility] [address] [place] [phone] Lighting Engineering Technician: Dwain Aldana MD Hemoglobin (Bld) [Mass/Vol] 5.8 g/dL Critically low 11.9-15.1 [facility] Comment on above: Performed By: #### B MPX, MG, CDP #### [facility] [employer] [address] [place] [address] Lighting Engineering Technician: Dwain Aldana MD Immature granulocytes/100 WBC (Bld) 1 % High 0 [facility] Comment on above: Performed By: #### B MPX, MG, CDP #### [facility] [address] [place] [address] 6[address] Lighting Engineering Technician: Dwain Aldana MD Lymphocytes (Bld) [#/Vol] 1.67 10*3/uL Normal 1.10-3.70 [facility] Comment on above: Performed By: #### B MPX, MG, CDP #### [facility] [address] [place] [phone] Lighting Engineering Technician: Dwain Aldana MD Lymphocytes/100 WBC (Bld) 18 % Low 24-43 [facility] Comment on above: Performed By: #### B MPX, MG, CDP #### [facility] [employer] [address] [place] [address] Lighting Engineering Technician: Dwain Aldana MD MCH (RBC) [Entitic mass] 29.7 pg Normal 25.2-33.5 [facility] Comment on above: Performed By: #### B MPX, MG, CDP #### [facility] [address] [place] [address] Lighting Engineering Technician: Dwain Aldana MD MCHC (RBC) [Mass/Vol] 29.1 g/dL Normal 28.4-34.8 [facility] Comment on above: Performed By: #### B MPX, MG, CDP #### [facility] [address] [place] [phone] Lighting Engineering Technician: Dwain Aldana MD MCV (RBC) [Entitic vol] 102.1 fL Normal 82.6-102.9 [facility] Comment on above: Performed By: #### B MPX, MG, CDP #### [facility] [address] [place] [phone] Lighting Engineering Technician: Dwain Aldana MD Monocytes (Bld) [#/Vol] 0.72 10*3/uL Normal 0.10-1.20 [facility] Comment on above: Performed By: #### B MPX, MG, CDP #### [facility] [address] [place] [phone] Lighting Engineering Technician: Dwain Aldana MD Monocytes/100 WBC (Bld) 8 % Normal 3-12 [facility] Comment on above: Performed By: #### B MPX, MG, CDP #### [facility] [address] [place] [address] Lighting Engineering Technician: Dwain Aldana MD Neutrophil (Seg) 73 % High 36-65 [facility] Comment on above: Performed By: #### B MPX, MG, CDP #### [facility] [employer] [address] [place] [address] Lighting Engineering Technician: Dwain Aldana MD NRBC Automated 0.0 per 100 WBC Normal 0.0 [facility] Comment on above: Performed By: #### B MPX, MG, CDP #### [facility] [employer] [address] [place] [phone] Lighting Engineering Technician: Dwain Aldana MD Platelet mean volume (Bld) [Entitic vol] 11.5 fL Normal 8.1-13.5 [facility] Comment on above: Performed By: #### B MPX, MG, CDP #### [facility] [address] [place] [address] Lighting Engineering Technician: Dwain Aldana MD Platelets (Bld) [#/Vol] 186 10*3/uL Normal 138-453 [facility] Comment on above: Performed By: #### B MPX, MG, CDP #### [facility] [address] [place] [phone] Lighting Engineering Technician: Dwain Aldana MD RBC (Bld) [#/Vol] 1.95 10*6/uL Low 3.95-5.11 [facility] Comment on above: Performed By: #### B MPX, MG, CDP #### [facility] [address] [place] [address] Lighting Engineering Technician: Dwain Aldana MD RBC morphology finding Nom (Bld) ANISOCYTOSIS PRESENT Normal [facility] Comment on above: Performed By: #### B MPX, MG, CDP #### [facility] [address] [place] [address] Lighting Engineering Technician: Dwain Aldana MD WBC (Bld) [#/Vol] 9.5 10*3/uL Normal 3.5-11.3 [facility] Comment on above: Performed By: #### B MPX, MG, CDP #### [facility] [address] [place] [address] Lighting Engineering Technician: Dwain Aldana MD CTA ABDOMEN PELVIS W [...] Smith Hahn MD 11/25/23 Final result Normal [facility] CTA Abdominal vessels and Pe lvis [...] fat containing umbilical hernia. 7. Diffuse anasarca. [facility] RIS CONSOLIDATED EXAMINATION: CTA OF THE ABDOMEN [...] fat containing umbilical hernia. 7. Diffuse anasarca. [facility] Radiology Study observation (narrative) [facility] CTA Abdominal vessels and Pe lvis vessels WO and W contrast IVOrdered By: Smith Hahn on 11-25-2023 [facility] Work Phone: Hemoglobin and Hematocriton 11-25-2023 Hematocrit (Bld) [Volume fraction] 24.6 % Low 36.3 - 47.1 % [facility] Hemoglobin (Bld) [Mass/Vol] 8.5 g/dL Low 11.9 - 15.1 g/dL [facility] Interpretation and review of laboratory results Abnormal [facility] Hematocrit (Bld) [Volume fraction] 28.6 % Low 36.3 - 47.1 % [facility] Hemoglobin (Bld) [Mass/Vol] 9.2 g/dL Low 11.9 - 15.1 g/dL [facility] Interpretation and review of laboratory results Abnormal [facility] Hematocrit (Bld) [Volume fraction] 20.3 % Low 36.3 - 47.1 % [facility] Hemoglobin (Bld) [Mass/Vol] 6.6 g/dL Critically low 11.9 - 15.1 g/dL [facility] Interpretation and review of laboratory results Abnormal [facility] Hgb/Hcton 11-25-2023 Hematocrit (Bld) [Volume fraction] 28.6 % Low 36.3-47.1 [facility] Comment on above: Performed By: #### B MPX, MG, CDP #### [facility] [address] [place] [address] Lighting Engineering Technician: Dwain Aldana MD Hemoglobin (Bld) [Mass/Vol] 9.2 g/dL Low 11.9-15.1 [facility] Comment on above: Performed By: #### B MPX, MG, CDP #### [facility] [address] [place] [address] [phone] Lighting Engineering Technician: Dwain Aldana MD Hematocrit (Bld) [Volume fraction] 30.2 % Low 36.3-47.1 [facility] Comment on above: Performed By: #### B MPX, MG, CDP #### [facility] [address] [place] [address] [phone] Lighting Engineering Technician: Dwain Aldana MD Hemoglobin (Bld) [Mass/Vol] 9.0 g/dL Low 11.9-15.1 [facility] Comment on above: Performed By: #### B MPX, MG, CDP #### [facility] [address] [place] [address] [phone] Lighting Engineering Technician: Dwain Aldana MD Hematocrit (Bld) [Volume fraction] 20.3 % Low 36.3-47.1 [facility] Comment on above: Performed By: #### B MPX, MG, CDP #### [facility] [address] [place] [address] Lighting Engineering Technician: Dwain Aldana MD Hemoglobin (Bld) [Mass/Vol] 6.6 g/dL Critically low 11.9-15.1 [facility] Comment on above: Performed By: #### B MPX, MG, CDP #### [facility] [place] [address] Lighting Engineering Technician: Dwain Aldana MD Iron Binding Cap.on 11-25-19 24 % Fe Saturation 39 % Normal 20-55 [facility] Comment on above: Performed By: #### B MPX, MG, CDP #### [facility] [address] [place] [phone] Lighting Engineering Technician: Dwain Aldana MD Iron [Mass/Vol] 80 ug/dL Normal 37-145 [facility] Comment on above: Performed By: #### B MPX, MG, CDP #### [facility] [address] [place] [phone] Lighting Engineering Technician: Dwain Aldana MD Total Fe Binding Cap 205 ug/dL Low 250-450 [facility] Comment on above: Performed By: #### B MPX, MG, CDP #### [facility] [address] [place] [phone] Lighting Engineering Technician: Dwain Aldana MD Unbound Fe Bind Cap 125 ug/dL Normal 112-347 [facility] Comment on above: Performed By: #### B MPX, MG, CDP #### [facility] [address] [place] [phone] Lighting Engineering Technician: Dwain Aldana MD Iron and TIBCon 11-25-2023 Interpretation and review of laboratory results Abnormal [facility] Iron [Mass/Vol] 80 ug/dL 37 - 145 ug/dL [facility] Iron binding capacity [Mass/Vol] 205 ug/dL Low 250 - 450 ug/dL [facility] Iron saturation [Mass fraction] 39 % 20 - 55 % [facility] UIBC 125 ug/dL 112 - 347 ug/dL [facility] Lactate, Sepsison 11-25-2023 Lactic Acid,Sep Wbld 0.9 mmol/L Normal 0.5-1.9 [facility] Comment on above: Performed By: #### H H #### [facility] [address] [place] [id number] Lighting Engineering Technician: Dwain Aldana MD Lactic Acid, Sepsis, Whole Blood 0.9 mmol/L 0.5 - 1.9 mmol/L [facility] Lactic Acid,Sep Wbld 0.6 mmol/L Normal 0.5-1.9 [facility] Comment on above: Performed By: #### T SHX, PRCAL #### [facility] [address] [place] [phone] Lighting Engineering Technician: Dwain Aldana MD Lactic Acid, Sepsis, Whole Blood 0.6 mmol/L 0.5 - 1.9 mmol/L [facility] Lactic Acid,Sep Wbld 0.7 mmol/L Normal 0.5-1.9 [facility] Comment on above: Performed By: #### B MPX MG, CDP #### [facility] [address] [place] [phone] Lighting Engineering Technician: Dwain Aldana MD Lactic Acid, Sepsis, Whole Blood 0.7 mmol/L 0.5 - 1.9 mmol/L [facility] No Panel Informationon 11-24 [facility] PTon 11-25-2023 INR Coag (PPP) [Relative time] 1.2 {INR} Normal [facility] Comment on above: Result Comment: Therapeutic Range: Moderate Anticoagulant Intensity: INR = 2.0-3.0 High Anticoagulant Intensity: INR = 2.5-3.5 Performed By: #### B SWATHIX MG, CDP #### [facility] [address] [place] [address], [place] [address] Lighting Engineering Technician: Dwain Aldana MD PT Coag (PPP) [Time] 15.5 s High 11.7-14.9 [facility] Comment on above: Performed By: #### B MPX, MG, CDP #### [facility] [place] [address] Lighting Engineering Technician: Dwain Aldana MD Portable XR Chest AP single viewon 11-25-2023 Layering right great er than left pleural effusions and bibasilar atelectasis. [facility] CONSOLIDATED EXAMINATION: ONE XRAY VIEW OF THE [...] acute osseous abnormality. [facility] Keaton Montilla MD - 11/25/2023 EXAMINATION: [...] than left pleural effusions and bibasilar atelectasis. [employer] Radiology Study observation (narrative) [employer] Portable XR Chest AP single viewOrdered By: Keaton Montilla on 11-25-2023 [facility] Work Phone: [employer]-INRon 11-25-2023 INR Coag (PPP) [Relative time] 1.2 {INR} [facility] Comment on above: Therapeutic Range: Moderate Anticoagulant Intensity: INR = 2.0-3.0 High Anticoagulant Intensity: INR = 2.5-3.5 Interpretation and review of laboratory results Abnormal [facility] PT Coag (PPP) [Time] 15.5 s High [facility] XR CHEST PORTABLEon 11-25-19 XR [...] Keaton Montilla MD 11/25/23 Final result Normal [facility] Erythrocyte distribution wid th Auto (RBC) [Ratio]Ordered By: Frantz Nieves on 11-21-2023 Erythrocyte distribution width (RBC) [Ratio] 16.3 % 11.9-15.3 [facility] Ferritinon 11-21-2023 Ferritin [Mass/Vol] 40.6 ng/mL Normal 11.0-306.8 [facility] Comment on above: Result Comment: PERF ORMED BY: [place] [address] PATHOLOGIST [employer]NER EVY GARCIA M.D. Performed By: #### C BCRONEY, MG #### [address] Ferritin [Mass/volume] in Se rum or PlasmaOrdered By: Jaspal Whalen on 11-21-2023 Ferritin [Mass/Vol] 40.6 ng/mL 11.0-306.8 [facility] H Pylori Stool Ag, EIAon H Pylori Stool Ag, EIA Negative Normal Negative [facility] Comment on above: Order Comment: SOURC E OF SPECIMEN: stool Result Comment: Perf ormed at: - [facility] [id number] Lighting Engineering Technician: Jonny Guzman PhD, Phone: [phone] PERFORMED BY: [place] [address] PATHOLOGIST [employer] EVY GARCIA M.D. Performed By: #### C BCNO, MG #### [address] Hematocrit Auto (Bld) [Volum e fraction]Ordered By: Frantz Nieves on 11-21-2023 Hematocrit (Bld) [Volume fraction] 27.4 % 34.0-46.4 [facility] Hemoglobin [Mass/volume] in BloodOrdered By: Frantz Nieves on 11-21-2023 Hemoglobin (Bld) [Mass/Vol] 9.2 g/dL 11.8-15.4 [facility] Hemogram CBC Without Diffon 11-21-2023 Erythrocyte distribution width (RBC) [Ratio] 16.3 % High 11.9-15.3 [facility] Comment on above: Performed By: #### C BCNO #### [address] Hematocrit (Bld) [Volume fraction] 27.4 % Low 34.0-46.4 [facility] Comment on above: Performed By: #### C BCNO #### [address] Hemoglobin (Bld) [Mass/Vol] 9.2 g/dL Low 11.8-15.4 [facility] Comment on above: Performed By: #### C BCNO #### [address] MCH (RBC) [Entitic mass] 31.3 pg Normal 24.7-34.3 [facility] Comment on above: Performed By: #### C BCNO #### [address] MCV (RBC) [Entitic vol] 93.2 fL Normal 80-100 [facility] Comment on above: Performed By: #### C BCNO #### [address] Mean Corpuscular HGB Conc 33.6 g/dL Normal 32.0-35.0 [facility] Comment on above: Performed By: #### C BCNO #### [address] Platelet mean volume (Bld) [Entitic vol] 7.7 fL Normal 6.3-10.7 [facility] Comment on above: Result Comment: PERF ORMED BY: [place] [address] PATHOLOGIST [employer] EVY GARCIA M.D. Performed By: #### C BCNO #### [address] Platelets (Bld) [#/Vol] 377 10*3/uL Normal 150-450 [facility] Comment on above: Performed By: #### C BCNO #### [address] RBC (Bld) [#/Vol] 2.94 10*6/uL Low 3.60-5.00 [facility] Comment on above: Performed By: #### C BCNO #### [address] WBC (Bld) [#/Vol] 8.8 10*3/uL Normal 3.8-11.6 [facility] Comment on above: Performed By: #### C BCNO #### [address] Iron [Mass/volume] in Serum or PlasmaOrdered By: Jaspla Whalen on 11-21-2023 Iron [Mass/Vol] 20 ug/dL 50-212 [facility] Iron and TIBC Profileon 10-26 % Iron Saturation 6.0 % Low 20-50 [facility] Comment on above: Performed By: #### C BCNO, MG #### [address] Iron [Mass/Vol] 20 ug/dL Low 50-212 [facility] Comment on above: Performed By: #### C BCNO, MG #### [facility] [address] [place] [address] [facility] Total Iron Binding Capacity 333 ug/dL Normal 255-450 [facility] Comment on above: Performed By: #### C BCNO, MG #### [facility] [address] [place] [address] [place] Transferrin [Mass/Vol] 238 mg/dL Normal 203-362 [facility] Comment on above: Performed By: #### C BCNO, MG #### [facility] [address] [place] [address] [facility] Iron binding capacity [Mass/ volume] in Serum or PlasmaOrdered By: Jaspal Whalen on 11-21-2023 Iron binding capacity [Mass/Vol] 333 ug/dL 255-450 [facility] Iron saturation [Mass Fracti on] in Serum or PlasmaOrdered By: Jaspal Whalen on 11-21-2023 Iron saturation [Mass fraction] 6.0 % 20-50 [facility] Leukocytes [#/volume] correc dalton for nucleated erythrocytes in Blood by Automated counOrdered By: Frantz Nieves on 11-21-2023 WBC corrected for nucl RBC Auto (Bld) [#/Vol] 8.8 10*3/uL 3.8-11.6 [facility] MCH Auto (RBC) [Entitic mass ]Ordered By: Frantz Nieves on 11-21-2023 MCH (RBC) [Entitic mass] 31.3 pg 24.7-34.3 [facility] MCHC Auto (RBC) [Mass/Vol]Or dered By: Frantz Nieves on 11-21-2023 MCHC (RBC) [Mass/Vol] 33.6 g/dL 32.0-35.0 [facility] MCV Auto (RBC) [Entitic vol] Ordered By: Frantz Nieves on 11-21-2023 MCV (RBC) [Entitic vol] 93.2 fL 80-100 [facility] Platelet mean volume Auto (B ld) [Entitic vol]Ordered By: Frantz Nieves on 11-21-2023 Platelet mean volume (Bld) [Entitic vol] 7.7 fL 6.3-10.7 [facility] Platelets Auto (Bld) [#/Vol] Ordered By: Frantz Nieves on 11-21-2023 Platelets (Bld) [#/Vol] 377 10*3/uL 150-450 [facility] RBC Auto (Bld) [#/Vol]Ordere d By: Frantz Nieves on 11-21-2023 RBC (Bld) [#/Vol] 2.94 10*6/uL 3.60-5.00 [facility] Transferrin [Mass/volume] in Serum or PlasmaOrdered By: Jaspal Whalen on 11-21-2023 Transferrin [Mass/Vol] 238 mg/dL 203-362 [facility] Hemoglobin and Hematocriton 11-20-2023 Hematocrit (Bld) [Volume fraction] 24.7 % Low 34.0-46.4 [facility] Comment on above: Result Comment: PERF ORMED BY: [place] [address] PATHOLOGIST [employer] EVY GARCIA M.D. Performed By: #### H H #### [address] Hemoglobin (Bld) [Mass/Vol] 8.4 g/dL Low 11.8-15.4 [facility] Comment on above: Performed By: #### H H #### [facility] [address] [place] [address] Hemogram CBC Without Diffon 11-20-2023 Erythrocyte distribution width (RBC) [Ratio] 16.5 % High 11.9-15.3 [facility] Comment on above: Performed By: #### C BCNO, MG #### [address] Hematocrit (Bld) [Volume fraction] 23.7 % Low 34.0-46.4 [facility] Comment on above: Performed By: #### C BCNO, MG #### [place] [address] [place] Hemoglobin (Bld) [Mass/Vol] 8.1 g/dL Low 11.8-15.4 [facility] Comment on above: Performed By: #### C BCNO, MG #### [address] MCH (RBC) [Entitic mass] 31.7 pg Normal 24.7-34.3 [facility] Comment on above: Performed By: #### C BCNO, MG #### [address] MCV (RBC) [Entitic vol] 92.5 fL Normal 80-100 [facility] Comment on above: Performed By: #### C BCNO, MG #### [address] Mean Corpuscular HGB Conc 34.2 g/dL Normal 32.0-35.0 [facility] Comment on above: Performed By: #### C BCNO, MG #### [address] Platelet mean volume (Bld) [Entitic vol] 7.8 fL Normal 6.3-10.7 [facility] Comment on above: Result Comment: PERF ORMED BY: [place] [address] PATHOLOGIST [employer] EVY GARCIA M.D. Performed By: #### C BCNO, MG #### [address] Platelets (Bld) [#/Vol] 279 10*3/uL Normal 150-450 [facility] Comment on above: Performed By: #### C BCNO, MG #### [address] RBC (Bld) [#/Vol] 2.56 10*6/uL Low 3.60-5.00 [facility] Comment on above: Performed By: #### C BCNO, MG #### [address] WBC (Bld) [#/Vol] 9.2 10*3/uL Normal 3.8-11.6 [facility] Comment on above: Performed By: #### C BCNO, MG #### [address] Magnesiumon 11-20-2023 Magnesium [Mass/Vol] 1.7 mg/dL Low 1.9-2.7 [facility] Comment on above: Result Comment: PERF ORMED BY: [place] [address] PATHOLOGIST [employer] EVY GARCIA M.D. Performed By: #### C BCNO, MG #### [address] Magnesium [Mass/volume] in S staci or PlasmaOrdered By: Frantz Nieves on 11-20-2023 Magnesium [Mass/Vol] 1.7 mg/dL 1.9-2.7 [facility] Basic Metabolic Panelon 10-26 Anion gap [Moles/Vol] 6.7 mmol/L Normal 6.0-15.0 [facility] Comment on above: Performed By: #### C BCNO, MG #### [address] Calcium [Mass/Vol] 6.6 mg/dL Low 8.6-10.3 [facility] Comment on above: Performed By: #### C BCNO, MG #### [address] Chloride [Moles/Vol] 111 mmol/L High 98-107 [facility] Comment on above: Performed By: #### C BCNO, MG #### [address] CO2 [Moles/Vol] 24.0 mmol/L Normal 21.0-31.0 [facility] Comment on above: Performed By: #### C BCNO, MG #### [address] Creatinine [Mass/Vol] 0.40 mg/dL Low 0.60-1.20 [facility] Comment on above: Performed By: #### C BCNO, MG #### [facility] [address] [place] [address] [place] Creatinine Clr Calc Pharmacy 50.26 Normal [facility] Comment on above: Performed By: #### C BCNO, MG #### [facility] [address] [place] [address] [place] GFR/1.73 sq M.predicted MDRD (S/P/Bld) [Vol rate/Area] mL/min/{1.73_m2} Normal [facility] Comment on above: Performed By: #### C BCNO, MG #### [facility] [address] Glucose [Mass/Vol] 88 mg/dL Normal 70-100 [facility] Comment on above: Result Comment: [facility] Glucose Reference Range is dependent on time and content of last meal. Glucose of more than 200 mg/dL in a nonstressed, ambulatory subject supports the diagnosis of Diabetes Mellitus. ADA recommended reference range Performed By: #### C BCNO, MG #### [facility] [address] [place] [address] [place] Potassium [Moles/Vol] 3.7 mmol/L Normal 3.5-5.1 [facility] Comment on above: Performed By: #### C BCNO, MG #### [facility] [address] [place] [address] [place] Sodium [Moles/Vol] 138 mmol/L Normal 136-145 [facility] Comment on above: Performed By: #### C BCNO, MG #### [facility] [address] [place] [address] [place] Urea nitrogen [Mass/Vol] 15 mg/dL Normal 7-25 [facility] Comment on above: Performed By: #### C BCNO, MG #### [facility] [address] [place] [address] [place] Calcium [Mass/volume] in Ser um or PlasmaOrdered By: Frantz Nieves on 04-25-2024 Calcium [Mass/Vol] 6.6 mg/dL 8.6-10.3 [facility] Carbon dioxide, total [Moles /volume] in Serum or PlasmaOrdered By: Frantz Nieves on 11-19-2023 CO2 [Moles/Vol] 24.0 mmol/L 21.0-31.0 [facility] Chloride [Moles/volume] in S staci or PlasmaOrdered By: Frantz Nieves on 11-19-2023 Chloride [Moles/Vol] 111 mmol/L 98-107 [facility] Creatinine [Mass/volume] in Serum or PlasmaOrdered By: Frantz Nieves on 11-19-2023 Creatinine [Mass/Vol] 0.40 mg/dL 0.60-1.20 [facility] Glucose [Mass/volume] in Ser um or PlasmaOrdered By: Frantz Nieves on 11-19-2023 Glucose [Mass/Vol] 88 mg/dL 70-100 [facility] Comment on above: ADA recommended refe rence rangeRandom Glucose Reference Range is dependent on time and content of last meal. Glucose of more than 200 mg/dL in a nonstressed, ambulatory subject supports the diagnosis of Diabetes Mellitus. Hemoglobin and Hematocriton 11-19-2023 Hematocrit (Bld) [Volume fraction] 26.7 % Low 34.0-46.4 [facility] Comment on above: Result Comment: PERF ORMED BY: [place] [address] PATHOLOGIST [employer] EVY GARCIA M.D. Performed By: #### C JENNA MG #### [facility] [address] Hemoglobin (Bld) [Mass/Vol] 9.1 g/dL Significant change down 11.8-15.4 [facility] Comment on above: Performed By: #### C JENNA, MG #### [facility] [address] Hematocrit (Bld) [Volume fraction] 19.0 % Off scale low 34.0-46.4 [facility] Comment on above: Result Comment: Crit ical value result called at 1124 on 11/19/23 PERFORMED BY: [place] [address] PATHOLOGIST [employer]NER EVY GARCIA M.D. Performed By: #### C BCNO, MG #### [address] Hemoglobin (Bld) [Mass/Vol] 6.5 g/dL Low 11.8-15.4 [facility] Comment on above: Performed By: #### C BCNO, MG #### [address] Hematocrit (Bld) [Volume fraction] 22.1 % Low 34.0-46.4 [facility] Comment on above: Result Comment: PERF ORMED BY: [place] [address] PATHOLOGIST [employer] EVY GARCIA M.D. Performed By: #### C BCNO, MG #### [address] Hemoglobin (Bld) [Mass/Vol] 7.5 g/dL Low 11.8-15.4 [facility] Comment on above: Performed By: #### C BCNO, MG #### [address] Hemogram CBC Without Diffon 11-19-2023 Erythrocyte distribution width (RBC) [Ratio] 16.2 % High 11.9-15.3 [facility] Comment on above: Performed By: #### C BCNO, MG #### [address] Hematocrit (Bld) [Volume fraction] 20.5 % Low 34.0-46.4 [facility] Comment on above: Performed By: #### C BCNO, MG #### [address] Hemoglobin (Bld) [Mass/Vol] 7.1 g/dL Low 11.8-15.4 [facility] Comment on above: Performed By: #### C BCNO, MG #### [address] MCH (RBC) [Entitic mass] 31.8 pg Normal 24.7-34.3 [facility] Comment on above: Performed By: #### C BCNO, MG #### [address] MCV (RBC) [Entitic vol] 92.0 fL Normal 80-100 [facility] Comment on above: Performed By: #### C BCNO, MG #### [address] Mean Corpuscular HGB Conc 34.6 g/dL Normal 32.0-35.0 [facility] Comment on above: Performed By: #### C BCNO, MG #### [address] Platelet mean volume (Bld) [Entitic vol] 7.5 fL Normal 6.3-10.7 [facility] Comment on above: Result Comment: PERF ORMED BY: [place] [address] PATHOLOGIST [employer] EVY GARCIA M.D. Performed By: #### C BCNO, MG #### [address] Platelets (Bld) [#/Vol] 247 10*3/uL Normal 150-450 [facility] Comment on above: Performed By: #### C BCNO, MG #### [address] RBC (Bld) [#/Vol] 2.23 10*6/uL Low 3.60-5.00 [facility] Comment on above: Performed By: #### C BCNO, MG #### [address] WBC (Bld) [#/Vol] 10.1 10*3/uL Normal 3.8-11.6 [facility] Comment on above: Performed By: #### C BCNO, MG #### [facility] [address] [id number] [place] Magnesiumon 11-19-2023 Magnesium [Mass/Vol] 2.0 mg/dL Normal 1.9-2.7 [facility] Comment on above: Result Comment: PERF ORMED BY: [place] [address] PATHOLOGIST [employer] EVY GARCIA M.D. Performed By: #### C BCNO, MG #### [facility] [id number] [facility] No Panel InformationOrdered By: Frantz Nieves on 11-19-2023 Estimated GFR (CKD-EPI) > 60.0 mL/Min [facility] Creatinine Clearance (Chem 50.26 [facility] Potassium [Moles/volume] in Serum or PlasmaOrdered By: Frantz Nieves on 11-19-2023 Potassium [Moles/Vol] 3.7 mmol/L 3.5-5.1 [facility] Serum or plasma anion gap de terminationOrdered By: Frantz Nieves on 11-19-2023 Anion gap [Moles/Vol] 6.7 mmol/L 6.0-15.0 [facility] Sodium [Moles/volume] in Ser um or PlasmaOrdered By: Frantz Nieves on 11-19-2023 Sodium [Moles/Vol] 138 mmol/L 136-145 [facility] Urea nitrogen [Mass/volume] in Serum or PlasmaOrdered By: Frantz Nieves on 11-19-2023 Urea nitrogen [Mass/Vol] 15 mg/dL 02-17 [facility] ABO/Rh Retypeon 11-18-2023 ABO/RH Recheck Result Positive Normal [facility] Comment on above: Result Comment: PERF ORMED BY: [place] [id number] PATHOLOGIST [employer] EVY GARCIA M.D. Alanine aminotransferase [En zymatic activity/volume] in Serum or PlasmaOrdered By: Dale Mckeon on 11-18-2023 ALT [Catalytic activity/Vol] 14 U/L [facility] Albumin [Mass/volume] in Ser um or Plasma by Bromocresol green (BCG) dye binding methoOrdered By: Dale Mckeon on 11-18-2023 Albumin BCG dye [Mass/Vol] 2.4 g/dL 3.5-5.7 [facility] Alkaline phosphatase [Enzyma tic activity/volume] in Serum or PlasmaOrdered By: Dale Mckeon on 11-18-2023 ALP [Catalytic activity/Vol] 44 U/L 34-104 [facility] Aspartate aminotransferase [ Enzymatic activity/volume] in Serum or PlasmaOrdered By: Dale Mckeon on 11-18-2023 AST [Catalytic activity/Vol] 17 U/L 13-39 [facility] Basophils Auto (Bld) [#/Vol] Ordered By: Dale Mckeon on 11-18-2023 Basophils (Bld) [#/Vol] N/A [facility] Basophils/100 WBC Auto (Bld) Ordered By: Dale Mckeon on 11-18-2023 Basophils/100 WBC (Bld) N/A [facility] Bilirubin.total [Mass/volume ] in Serum or PlasmaOrdered By: Dale Mckeon on 11-18-2023 Bilirubin [Mass/Vol] 0.3 mg/dL 0.3-1.0 [facility] Comprehensive Metabolic Pane will 11-18-2023 Albumin [Mass/Vol] 2.4 g/dL Low 3.5-5.7 [facility] Comment on above: Performed By: #### M G, TSH3, CMP, DIFF CBC, T4F #### [facility] [address] Albumin/Globulin [Mass ratio] 1.6 {ratio} Normal [facility] Comment on above: Performed By: #### M G, TSH3, CMP, DIFF CBC, T4F #### [facility] [id number] [facility] ALP [Catalytic activity/Vol] 44 U/L Normal 34-104 [facility] Comment on above: Performed By: #### M G, TSH3, CMP, DIFF CBC, T4F #### [facility] [address] ALT [Catalytic activity/Vol] 14 U/L Normal 7-52 [facility] Comment on above: Performed By: #### M G, TSH3, CMP, DIFF CBC, T4F #### [facility] [address] Anion gap [Moles/Vol] 8.8 mmol/L Normal 6.0-15.0 [facility] Comment on above: Performed By: #### M G, TSH3, CMP, DIFF CBC, T4F #### [address] AST [Catalytic activity/Vol] 17 U/L Normal 13-39 [facility] Comment on above: Performed By: #### M G, TSH3, CMP, DIFF CBC, T4F #### [address] Bilirubin [Mass/Vol] 0.3 mg/dL Normal 0.3-1.0 [facility] Comment on above: Performed By: #### M G, TSH3, CMP, DIFF CBC, T4F #### [address] Calcium [Mass/Vol] 7.3 mg/dL Low 8.6-10.3 [facility] Comment on above: Performed By: #### M G, TSH3, CMP, DIFF CBC, T4F #### [facility] [address] [place] [address] [place] Chloride [Moles/Vol] 105 mmol/L Normal 98-107 [facility] Comment on above: Performed By: #### M G, TSH3, CMP, DIFF CBC, T4F #### [place] [address] [place] CO2 [Moles/Vol] 28.2 mmol/L Normal 21.0-31.0 [facility] Comment on above: Performed By: #### M G, TSH3, CMP, DIFF CBC, T4F #### [facility] [address] [place] [address] [place] Creatinine [Mass/Vol] 0.46 mg/dL Low 0.60-1.20 [facility] Comment on above: Performed By: #### M G, TSH3, CMP, DIFF CBC, T4F #### [facility] [address] Creatinine Clr Calc Pharmacy 50.26 Normal [facility] Comment on above: Performed By: #### M G, TSH3, CMP, DIFF CBC, T4F #### [place] [address] [place] GFR/1.73 sq M.predicted MDRD (S/P/Bld) [Vol rate/Area] mL/min/{1.73_m2} Normal [facility] Comment on above: Performed By: #### M G, TSH3, CMP, DIFF CBC, T4F #### [address] Globulin (S) [Mass/Vol] 1.5 g/dL Normal [facility] Comment on above: Performed By: #### M G, TSH3, CMP, DIFF CBC, T4F #### [address] Glucose [Mass/Vol] 93 mg/dL Normal 70-100 [facility] Comment on above: Result Comment: [facility] Glucose Reference Range is dependent on time and content of last meal. Glucose of more than 200 mg/dL in a nonstressed, ambulatory subject supports the diagnosis of Diabetes Mellitus. ADA recommended reference range Performed By: #### M G, TSH3, CMP, DIFF CBC, T4F #### [address] Potassium [Moles/Vol] 4.0 mmol/L Normal 3.5-5.1 [facility] Comment on above: Performed By: #### M G, TSH3, CMP, DIFF CBC, T4F #### [address] Protein [Mass/Vol] 3.9 g/dL Low 6.4-8.9 [facility] Comment on above: Performed By: #### M G, TSH3, CMP, DIFF CBC, T4F #### [address] Sodium [Moles/Vol] 138 mmol/L Normal 136-145 [facility] Comment on above: Performed By: #### M G, TSH3, CMP, DIFF CBC, T4F #### [address] Urea nitrogen [Mass/Vol] 24 mg/dL Normal 7-25 [facility] Comment on above: Performed By: #### M G, TSH3, CMP, DIFF CBC, T4F #### [address] Diff and CBCon 11-18-2023 Erythrocyte distribution width (RBC) [Ratio] 17.2 % High 11.9-15.3 [facility] Comment on above: Performed By: #### M G, TSH3, CMP, DIFF CBC, T4F #### [address] Hematocrit (Bld) [Volume fraction] 16.0 % Off scale low 34.0-46.4 [facility] Comment on above: Result Comment: Crit ical value result called at 0759 on 11/18/23 Performed By: #### M G, TSH3, CMP, DIFF CBC, T4F #### [address] Hemoglobin (Bld) [Mass/Vol] 5.6 g/dL Low 11.8-15.4 [facility] Comment on above: Performed By: #### M G, TSH3, CMP, DIFF CBC, T4F #### [address] MCH (RBC) [Entitic mass] 32.8 pg Normal 24.7-34.3 [facility] Comment on above: Performed By: #### M G, TSH3, CMP, DIFF CBC, T4F #### [address] MCV (RBC) [Entitic vol] 93.3 fL Normal 80-100 [facility] Comment on above: Performed By: #### M G, TSH3, CMP, DIFF CBC, T4F #### [address] Mean Corpuscular HGB Conc 35.2 g/dL High 32.0-35.0 [facility] Comment on above: Performed By: #### M G, TSH3, CMP, DIFF CBC, T4F #### [facility] [address] Platelet Estimate Normal Normal Normal [facility] Comment on above: Performed By: #### M G, TSH3, CMP, DIFF CBC, T4F #### [address] Platelet mean volume (Bld) [Entitic vol] 7.8 fL Normal 6.3-10.7 [facility] Comment on above: Result Comment: PERF ORMED BY: [place] [address] PATHOLOGIST [employer] EVY GARCIA M.D. Performed By: #### M G, TSH3, CMP, DIFF CBC, T4F #### [address] Platelet Morphology Normal Normal Normal [facility] Comment on above: Result Comment: PERF ORMED BY: [place] [address] PATHOLOGIST [employer] EVY GARCIA M.D. Performed By: #### M G, TSH3, CMP, DIFF CBC, T4F #### [address] Platelets (Bld) [#/Vol] 332 10*3/uL Normal 150-450 [facility] Comment on above: Performed By: #### M G, TSH3, CMP, DIFF CBC, T4F #### [place] [address] [place] RBC (Bld) [#/Vol] 1.72 10*6/uL Low 3.60-5.00 [facility] Comment on above: Performed By: #### M G, TSH3, CMP, DIFF CBC, T4F #### [facility] [address] WBC (Bld) [#/Vol] 10.9 10*3/uL Normal 3.8-11.6 [facility] Comment on above: Performed By: #### M G, TSH3, CMP, DIFF CBC, T4F #### [facility] [address] [place] [address] [place] Eosinophils Auto (Bld) [#/Vo l]Ordered By: Dale Mckeon on 11-18-2023 Eosinophils (Bld) [#/Vol] N/A [facility] Eosinophils/100 WBC Auto (Bl d)Ordered By: Dale Mckeon on 11-18-2023 Eosinophils/100 WBC (Bld) N/A [facility] Free T4 (Free Thyroxine)on 0 11-18-2023 Free T4 [Mass/Vol] 1.10 ng/dL Normal 0.61-1.12 [facility] Comment on above: Performed By: #### C BCNO, MG #### [address] Globulin Calc (S) [Mass/Vol] Ordered By: Dale Mckeon on 11-18-2023 Globulin (S) [Mass/Vol] 1.5 g/dL [facility] Hemoglobin and Hematocriton 11-18-2023 Hematocrit (Bld) [Volume fraction] 22.2 % Low 34.0-46.4 [facility] Comment on above: Result Comment: PERF ORMED BY: [place] [address] PATHOLOGIST [employer] EVY GARCIA M.D. Performed By: #### C BCNO, MG #### [address] Hemoglobin (Bld) [Mass/Vol] 7.7 g/dL Low 11.8-15.4 [facility] Comment on above: Performed By: #### C BCNO, MG #### [address] LeukoReduced RBCon LeukoReduced RBC TRANSFUSED 11/18/23 1440 Normal [facility] Lymphocytes Auto (Bld) [#/Vo l]Ordered By: Dale Mckeon on 11-18-2023 Lymphocytes (Bld) [#/Vol] N/A [facility] Lymphocytes/100 WBC Auto (Bl d)Ordered By: Dale Mckeon on 11-18-2023 Lymphocytes/100 WBC (Bld) N/A [facility] Magnesiumon 11-18-2023 Magnesium [Mass/Vol] 1.6 mg/dL Low 1.9-2.7 [facility] Comment on above: Performed By: #### M G, TSH3, CMP, DIFF CBC, T4F #### [facility] [address] Monocytes Auto (Bld) [#/Vol] Ordered By: Dale Mckeon on 11-18-2023 Monocytes (Bld) [#/Vol] N/A [facility] Monocytes/100 WBC Auto (Bld) Ordered By: Dale Mckeon on 11-18-2023 Monocytes/100 WBC (Bld) N/A [facility] Neutrophils Auto (Bld) [#/Vo l]Ordered By: Dale Mckeon on 11-18-2023 Neutrophils (Bld) [#/Vol] N/A [facility] Neutrophils/100 WBC Auto (Bl d)Ordered By: Dale Mckeon on 11-18-2023 Neutrophils/100 WBC (Bld) N/A [facility] Nucleated erythrocytes [Pres ence] in Blood by Automated countOrdered By: Dale Mckeon on 11-18-2023 Nucleated RBC Auto Ql (Bld) N/A [facility] Platelet adequacy [Presence] in Blood by Light microscopyOrdered By: Dale Mckeon on 11-18-2023 Platelets LM Ql (Bld) Normal Normal [facility] Platelet morphology finding [Identifier] in BloodOrdered By: Dale Mckeon on 11-18-2023 Platelet morphology finding Nom (Bld) Normal Normal [facility] Protein [Mass/volume] in Ser um or PlasmaOrdered By: Dale Mckeon on 11-18-2023 Protein [Mass/Vol] 3.9 g/dL 6.4-8.9 [facility] RBC morphologyOrdered By: Krystina Mckeon on 11-18-2023 RBC morphology finding Nom (Bld) N/A [facility] Serum or plasma albumin/glob ulin mass ratioOrdered By: Dale Mckeon on 11-18-2023 Albumin/Globulin [Mass ratio] 1.6 {ratio} [facility] Thyroid Stimulating Hormoneo n 11-18-2023 TSH Qn 5.61 m[IU]/L High 0.45-5.33 [facility] Comment on above: Result Comment: PERF ORMED BY: [place] [address] PATHOLOGIST [employer] EVY GARCIA M.D. Performed By: #### C BCNO, MG #### [address] Thyrotropin [Units/volume] i n Serum or PlasmaOrdered By: Frantz Nieves on 11-18-2023 TSH Qn 5.61 m[IU]/L 0.45-5.33 [facility] Thyroxine (T4) free [Mass/vo lume] in Serum or PlasmaOrdered By: Frantz Nieves on 11-18-2023 Free T4 [Mass/Vol] 1.10 ng/dL 0.61-1.12 [facility] Type and Screenon 11-18-2023 ABO and Rh group Nom (Bld) Blood group A Rh(D) positive Normal [facility] Comment on above: Order Comment: [...] 11-18-2023 WBC (Bld) [#/Vol] 10.9 10*3/uL 3.8-11.6 [facility] Folate [Mass/volume] in Seru m or PlasmaOrdered By: Dale Mckeon on 04-23-2024 Folate [Mass/Vol] 15.0 ng/mL >5.9 [facility] Comment on above: Folate reference ran ge: >5.9 ng/mlThe WHO technical consultation on folate and vitamin [id number] has determined that folate concentrations lessthan 4 ng/ml are considered deficient. Hemoglobin and Hematocriton 11-17-2023 Hematocrit (Bld) [Volume fraction] 20.2 % Low 34.0-46.4 [facility] Comment on above: Result Comment: PERF ORMED BY: [place] [address] PATHOLOGIST [employer] EVY GARCIA M.D. Performed By: #### C BCNO, MG #### [address] Hemoglobin (Bld) [Mass/Vol] 6.9 g/dL Low 11.8-15.4 [facility] Comment on above: Performed By: #### C BCNO, MG #### [address] Hematocrit (Bld) [Volume fraction] 21.5 % Low 34.0-46.4 [facility] Comment on above: Result Comment: PERF ORMED BY: [place] [address] PATHOLOGIST [employer] EVY GARCIA M.D. Performed By: #### C BCNO, MG #### [address] Hemoglobin (Bld) [Mass/Vol] 7.3 g/dL Low 11.8-15.4 [facility] Comment on above: Performed By: #### C BCNO, MG #### [address] Vit. B12/Folate Profileon Cobalamin (Vitamin B12) [Mass/Vol] 816 pg/mL Normal 180-914 [facility] Comment on above: Performed By: #### C BCNO, MG #### [address] Folate 15.0 ng/mL Normal >5.9 [facility] Comment on above: Result Comment: Maribel te reference range: >5.9 ng/ml The WHO technical consultation on folate and vitamin b12 deficiencies has determined that folate concentrations less than 4 ng/ml are considered deficient. PERFORMED BY: [facility] [address] [id number] PATHOLOGIST [employer] EVY GARCIA M.D. Performed By: #### C BCNO, MG #### [address] Vitamin B12 ser/plasOrdered By: Dale Mckeon on 11-17-2023 Cobalamin (Vitamin B12) [Mass/Vol] 816 pg/mL 180-914 [facility] REVERSE T3on 08-29-2022 Reverse T3, Serum 23.1 ng/dL Normal 9.2-24.1 [facility] Comment on above: Result Comment: This test was developed and its performance characteristics determined by [employer]. It has not been cleared or approved by the Food and Drug Administration. Performed By: #### R EVRT3 #### [facility] [address] [address] [address] Jin Hodges T3, TOTAL (TRIIODOTHYRONINE) on 08-27-2022 T3, TOTAL 136 ng/dL Normal 71-180 [facility] Comment on above: Performed By: #### T 3TOTAL #### [facility] [address] [address] [address] Jin Hodges FREE T3on 08-26-2022 FREE T3 2.98 pg/mlL Normal 2.18-3.98 [facility] Comment on above: Performed By: #### F T3, TSH #### [facility] [address] [address] [address] Jin Hodges FREE T4on 08-26-2022 Free T4 [Mass/Vol] 0.81 ng/dL Normal 0.76-1.46 [facility] Comment on above: Performed By: #### F T4 #### [facility] [address] [address] [address] Jin Hodges TSHon 08-26-2022 TSH 0.561 uIU/mL Normal 0.358-3.74 0 [facility] Comment on above: Performed By: #### F T3, TSH #### [facility] [address] [place] [address] Dr. Jin Hodges REVERSE T3on 03-05-2022 Reverse T3, Serum 21.3 ng/dL Normal 9.2-24.1 [facility] Comment on above: Result Comment: This test was developed and its performance characteristics determined by [employer]. It has not been cleared or approved by the Food and Drug Administration. Performed By: #### R EVRT3 #### [facility] [address] [place] [address] Dr. Jin Hodges T3, TOTAL (TRIIODOTHYRONINE) on 03-01-2022 T3, TOTAL 123 ng/dL Normal 71-180 [facility] Comment on above: Performed By: #### T 3TOTAL #### [facility] [address] [place] [address] Dr. Jin Hodges FREE T3on 02-28-2022 FREE T3 3.10 pg/mlL Normal 2.18-3.98 [facility] Comment on above: Performed By: #### T SH, FT3 #### [facility] [address] [place] [address] Dr. Jin Hodges FREE T4on 02-28-2022 Free T4 [Mass/Vol] 0.92 ng/dL Normal 0.76-1.46 [facility] Comment on above: Performed By: #### F T4 #### [facility] [address] [place] [address] Dr. Jin Hodges TSHon 02-28-2022 TSH 0.133 uIU/mL Critically low 0.358-3.74 0 [facility] Comment on above: Performed By: #### T SH, FT3 #### [facility] [address] [place] [address] Dr. Jin Hodges Vital Signs Date Time Vital Sign Value Performing Clinician Facility 07-28-2024 14:25-0500 Body height 162.6 cm [facility] 5 [facility] 07-28-2024 14:25-0500 Body mass index (BMI) [Ratio] 24.2 kg/m2 [facility] 5 [facility] 07-28-2024 14:25-0500 Body weight 63.96 kg [facility] 5 [facility] 06-27-2024 14:29-0500 Body height 162.6 cm [facility] 4 [facility] 06-27-2024 14:29-0500 Body mass index (BMI) [Ratio] 25.4 kg/m2 [facility] 4 [facility] 06-27-2024 14:29-0500 Body weight 67.13 kg [facility] 4 [facility] 05-02-2024 08:54-0400 Body height 162.6 cm Catracho Sheriff MD Work Phone: [facility] 05-02-2024 08:54-0400 Body mass index (BMI) [Ratio] 24.2 kg/m2 Catracho Sheriff MD Work Phone: [facility] 05-02-2024 08:54-0400 Body weight 63.96 kg Catracho Sheriff MD Work Phone: [facility] 04-28-2024 08:56-0400 Body height 162.6 cm Catracho Sheriff MD Work Phone: [facility] 04-28-2024 08:56-0400 Body mass index (BMI) [Ratio] 24.2 kg/m2 Catracho Sheriff MD Work Phone: [facility] 04-28-2024 08:56-0400 Body weight 63.96 kg Catracho Sheriff MD Work Phone: [facility] 04-26-2024 16:21-0400 Body height 162.6 cm Catracho Sheriff MD Work Phone: [facility] 04-26-2024 16:21-0400 Body mass index (BMI) [Ratio] 24.2 kg/m2 Catracho Sheriff MD Work Phone: [facility] 04-26-2024 16:21-0400 Body weight 63.96 kg Catracho Sheriff MD Work Phone: [facility] 04-14-2024 09:26-0400 Body height 162.6 cm Catracho Sheriff MD Work Phone: [facility] 04-14-2024 09:26-0400 Body mass index (BMI) [Ratio] 24.2 kg/m2 Catracho Sheriff MD Work Phone: [facility] 04-14-2024 09:26-0400 Body weight 63.96 kg Catracho Sheriff MD Work Phone: [facility] 03-29-2024 15:37-0400 Body height 162.6 cm [facility] 4 [employer] 03-29-2024 15:37-0400 Body mass index (BMI) [Ratio] 24.2 kg/m2 [facility] 4 [employer] 03-29-2024 15:37-0400 Body weight 63.96 kg Stcz 4 [employer] 01-29-2024 13:20-0400 Diastolic blood pressure 59 mm[Hg] Nicky Ugarte MD Work Phone: [facility] [employer] 01-29-2024 13:20-0400 Heart rate 73 /min Nicky Ugarte MD Work Phone: [facility] [employer] 01-29-2024 13:20-0400 Respiratory rate 17 /min Nicky Ugarte MD Work Phone: [facility] [employer] 01-29-2024 13:20-0400 SaO2% (BldA) [Mass fraction] 89 % Nicky Ugarte MD Work Phone: [employer] 01-29-2024 13:20-0400 Systolic blood pressure 115 mm[Hg] Nicky Ugarte MD Work Phone: [facility] [employer] 01-29-2024 12:56-0400 Body temperature 98.71 [degF] Nicky Ugarte MD Work Phone: [facility] [employer] 07-05-2024 10:57-0400 Body height 162.6 cm Nicky Ugarte MD Work Phone: [employer] 01-29-2024 10:57-0400 Body mass index (BMI) [Ratio] 24.19 kg/m2 Nicky Ugarte MD Work Phone: [facility] [employer] 01-29-2024 10:57-0400 Body weight 63.96 kg Nicky Ugarte MD Work Phone: [facility] [employer] 12-03-2023 15:31-0400 Heart rate 69 /min Ray De La Cruz MD Work Phone: [employer] 12-03-2023 15:31-0400 SaO2% (BldA) [Mass fraction] 94 % Ray De La Cruz MD Work Phone: [employer] 12-03-2023 11:02-0400 Body temperature 98.01 [degF] Ray De La Cruz MD Work Phone: [employer] 12-03-2023 11:02-0400 Diastolic blood pressure 57 mm[Hg] Ray De La Cruz MD Work Phone: [employer] 12-03-2023 11:02-0400 Respiratory rate 18 /min Ray De La Cruz MD Work Phone: [employer] 12-03-2023 11:02-0400 Systolic blood pressure 108 mm[Hg] Ray De La Cruz MD Work Phone: [employer] 12-02-2023 06:00-0400 Body mass index (BMI) [Ratio] 34.38 kg/m2 Ray De La Cruz MD Work Phone: [employer] 12-02-2023 06:00-0400 Body weight 88 kg Ray De La Cruz MD Work Phone: [employer] 11-30-2023 15:24-0400 Body height 160 cm Ray De La Cruz MD Work Phone: [employer] 11-21-2023 15:01-0400 Body temperature 97.7 [degF] MD Catracho Sheriff Work Phone: [facility] 11-21-2023 15:01-0400 Diastolic blood pressure 54 mm[Hg] MD Catracho Sheriff Work Phone: [facility] 11-21-2023 15:01-0400 Heart rate 73 /min MD Catracho Sheriff Work Phone: [facility] 11-21-2023 15:01-0400 Respiratory rate 20 /min MD Catracho Sheriff Work Phone: [facility] [facility] 11-21-2023 15:01-0400 SaO2% (BldA) [Mass fraction] 96 % MD Catracho Sheriff Work Phone: [facility] 11-21-2023 15:01-0400 Systolic blood pressure 108 mm[Hg] MD Catracho Sheriff Work Phone: [facility] 11-21-2023 05:33-0400 Body weight 73.5 kg MD Catracho Sheriff Work Phone: [facility] 11-20-2023 13:22-0400 Body height 160.02 cm MD Catracho Sheriff Work Phone: [facility] 11-19-2023 00:00-0400 Inhaled oxygen flow rate 2 L/min MD Catracho Sheriff Work Phone: [facility] 08-25-2023 10:17-0500 Body height 162.6 cm Catracho Sheriff MD Work Phone: [facility] 08-25-2023 10:17-0500 Body mass index (BMI) [Ratio] 25.06 kg/m2 Catracho Sheriff MD Work Phone: [facility] 08-25-2023 10:17-0500 Body weight 66.22 kg Catracho Sheriff MD Work Phone: [facility] Healthcare Encounters Encounter Date Encounter Type [...] Start: 07-28-2024 End: 08-01-2024 ambulatory CATRACHO SHERIFF [facility] Start: 07-28-2024 End: 08-01-2024 Subsequent hospital [...] Start: 06-27-2024 End: 07-01-2024 ambulatory CATRACHO SHERIFF [facility] Start: 06-27-2024 End: 07-01-2024 Subsequent hospital [...] End: 05-02-2024 Office outpatient visit 15 minutes Catrcaho Sheriff MD Work Phone: [facility] [...] to breakdown of skin without varicose veins ([facility]/HCC) Start: 04-14-2024 End: 04-14-2024 ambulatory CATRACHO SHERIFF Not Available Start: 04-12-2024 End: 04-12-2024 [facility] Start: 03-29-2024 End: 04-02-2024 ambulatory CATRACHO Cobb [facility] Start: 03-29-2024 End: 04-02-2024 Subsequent hospital visit by physician Natalie Mosley Rm 4 NATALIE Pre-Admit Testing Start: 03-01-2024 End: 03-01-2024 ambulatory LEONILA ZAPATA Not Available Start: 02-16-2024 End: 02-16-2024 ambulatory LEONILA ZAPATA Not Available Start: 01-29-2024 End: 01-29-2024 [facility] Start: 01-29-2024 End: 01-29-2024 Subsequent hospital visit by physician Nicky Ugarte MD Work Phone: NATALIE [facility]NO[facility] Comment on above: Duodenal ulcer Start: 01-26-2024 End: 01-26-2024 ambulatory CATRACHO SHERIFF Not Available Start: 01-19-2024 End: 01-19-2024 ambulatory CATRACHO SHERIFF Not Available Start: 01-18-2024 End: [facility]24 [facility] Start: 12-29-2023 End: 12-29-2023 ambulatory CATRACHO SHERIFF Not Available Start: 11-25-2023 End: 12-03-2023 Evaluation and management of inpatient DILNOOR DULCE [facility] Start: 11-25-2023 End: 12-03-2023 Evaluation and management of inpatient Ray De La Cruz MD Work Phone: [facility] Comment on above: Acute anemia (Primar y Dx) Start: 11-17-2023 Non-patient / Non-visit MD Vince Sheriff Work Phone: [facility] Work Phone: Start: 11-17-2023 End: 11-21-2023 Evaluation and management of inpatient Catracho Sheriff Facility:[facility] Start: 11-17-2023 End: 11-21-2023 Evaluation and management of inpatient MD Catracho Sheriff Work Phone: [facility] Work Phone: Start: 11-03-2023 End: [...] 12-01-2023 Blood count complete auto&auto difrntl wbc Mnaasa Pollock MD Work Phone: Start: 11-30-2023 Blood count hemoglobin Manasa Pollock MD Work Phone: Start: 11-30-2023 Blood count hemoglobin Manasa Pollock MD Work Phone: Start: 6 End: 11-30-2023 Blood count hemoglobin Arnaud catherine [...] TO MG FOR LOW K Farnaz Burgos LOOM REPAIRER - TYPE COPYIST Work Phone: Start: 11-27-2023 End: 11-28-2023 Transfusion of packed red blood cells Jasmine Leong LOOM REPAIRER - TYPE COPYIST Work Phone: Start: 11-27-2023 Blood count hemoglobin Deanna Coyle MD Work Phone: Start: 11-27-2023 Blood count hemoglobin Nicky Ugarte MD Work Phone: Start: 11-27-2023 Vascular embolization or occlusion hemorrhage Jossy Leem LOOM REPAIRER - TYPE COPYIST Work Phone: Start: 11-27-2023 Radiologic exam chest [...] Work Phone: Start: 11-26-2023 Assay of magnesium Ktahy Flores LOOM REPAIRER - TYPE COPYIST Work Phone: Start: 11-26-2023 BASIC METABOLIC PANEL W/ REFLEX TO MG FOR LOW K Nicky Ugarte MD Work Phone: Start: 11-25-2023 Blood count hemoglobin Nicky Ugarte MD Work Phone: Start: 11-25-2023 LACTATE, SEPSIS Nicky Ugarte MD Work Phone: Start: 11-25-2023 Radiologic exam chest single view Misti Montemayor LOOM REPAIRER [facility] Work Phone: Start: 11-25-2023 Blood count hemoglobin Diana truong MD Work Phone: Start: 11-25-2023 End: 11-25-2023 ESOPHAGOGASTRODUODENOSCOPY CONTROL HEMORRHAGE Nicky Ugarte MD Work Phone: Start: 11-25-2023 LACTATE, SEPSIS Nicky Ugarte MD Work Phone: Start: 11-25-2023 End: 11-25-2023 Transfusion of packed red blood cells Jossy Aguilar Geoff [facility] Work Phone: Start: 11-25-2023 End: 11-25-2023 Transfusion [...] 11-25-2023 Blood typing serologic abo Kathy Flores LOOM REPAIRER [facility] Work Phone: Start: 11-25-2023 BASIC METABOLIC PANEL W/ REFLEX TO MG FOR LOW K Kathy Flores LOOM REPAIRER - TYPE COPYIST Work Phone: Start: 11-25-2023 Prothrombin time Kathy Flores PATY - TYPE COPYIST Work Phone: Start: 11-18-2023 Esophagogastroduodenoscopy MD Catracho [...] now? 1 Result Comment: PERF ORMED BY: [facility] [address] [place] [address] PATHOLOGIST [employer] EVY GARCIA M.D. Start: 09-12-2013 Colonoscopy Catracho Sheriff MD Work Phone: Plan of Treatment Date Care Activity Detail Author Start: 03-27-2025 Influenza vaccination Influenza Vaccine (Season Ended) [facility] Start: 01-23-2025 Influenza vaccination Influenza Vaccine (#1) [facility] Comment on above: Postponed from 03/27/2024 (Patient Refus ed) Start: 01-04-2025 End: 01-04-2025 Patient encounter procedure [facility] Start: 10-31-2024 End: 05-02-2025 Thyrotropin [Units/volume] in Serum or Plasma TSH Lab Routine Postsurgical hypothyroidism (CMS/HCC) Expected: 10/31/2024 (Approximate), Expires: 05/02/2025 [facility] Healthcare Work Phone: Comment on above: [...] Annual Wellness (AWV) Medicare Annual Wellness (AWV) [facility] Start: 08-05-2024 End: 08-05-2024 Admission to same day surgery center 08/05/2024 2:45 PM EST - 08/05/2024 3:00 PM EST Surgery [facility] [address] [place] [address] Nicky Ugarte MD [address] [facility] [address] [place] [address] ESOPHAGOGASTRODUODENOSCOPY BIOPSY [facility] Comment on above: ESOPHAGOGASTRODUODENOSCOPY BIOPSY Start: 08-05-2024 End: 08-05-2024 Egd transoral biopsy single/multiple ESOPHAGOGASTRODUODENOSCOPY BIOPSY Duodenal ulcer 08/05/2024 2:45 PM EST [facility] Start: 08-05-2024 Subsequent hospital visit by physician 08/05/2024 2:45 PM EST Hospital Encounter [facility] [address] [place] [address] Nicky Ugarte MD [address] [facility] [address] [place], [place] [id number] [facility] Start: 07-27-2024 Annual Wellness Visit (Medicare Advantage) Annual Wellness Visit (Medicare Advantage) [facility] Start: 07-13-2024 End: 07-13-2024 Patient encounter procedure 07/13/2024 9:30 AM EST Office Visit [facility] [address] [place] [address] Catracho Sheriff MD [address] [place] [address] (Fax) Arrived [facility] Comment on above: Arrived Start: 07-12-2024 End: 07-12-2024 Patient encounter procedure [facility] 00 Start: 07-05-2024 End: 07-05-2024 Admission to same day surgery center 07/05/2024 10:45 AM EST - 07/05/2024 11:00 AM EST Surgery [facility] [address] [place] [address] Nicky Ugarte MD [address] [address] ESOPHAGOGASTRODUODENOSCOPY WITH BIOPSY [facility] Comment on above: ESOPHAGOGASTRODUODENOSCOPY WITH BIOPSY Start: 07-05-2024 End: 07-05-2024 Egd transoral biopsy single/multiple ESOPHAGOGASTRODUODENOSCOPY BIOPSY Duodenal ulcer 07/05/2024 10:45 AM EST [facility] Start: 07-05-2024 Subsequent hospital visit by physician 07/05/2024 10:45 AM EST Hospital Encounter [facility] [address] [place] [address] Nicky Ugarte MD [address] [facility] [address] [place] [address] [facility] Start: 05-02-2024 End: 05-02-2025 CBC [...] Visit [facility] [address] [id number] Catracho Sheriff MD [address] [place] [address] (Fax) Arrived [facility] Comment [...] Visit [facility] [address] [address] Catracho Sheriff MD [address] [place] [address] (Fax) Chronic pain syndrome; Fibromyalgia; Primary osteoarthritis, [...] 11:45 AM EDT Surgery [facility] [address] [place] [address] Nicky Ugarte MD [address] [facility] [address] [place] [address] ESOPHAGOGASTRODUODENOSCOPY BIOPSY POSSIBLE DILATION [facility] Comment on above: ESOPHAGOGASTRODUODENOSCOPY BIOPSY POSSIB LE DILATION Start: 04-12-2024 End: 04-12-2024 Egd transoral biopsy single/multiple ESOPHAGOGASTRODUODENOSCOPY BIOPSY Duodenal stricture 04/12/2024 11:30 AM EDT [facility] Start: 04-12-2024 Subsequent hospital visit by physician 04/12/2024 11:30 AM EDT Hospital Encounter [facility] [address] [place] [address] Nicky Ugarte MD [address] [facility] [address] [place] [address] [facility] Start: 03-27-2024 COVID-19 Vaccine ( season) COVID-19 Vaccine () [facility] Start: 03-27-2024 Influenza vaccination Influenza Vaccine (#1) [facility] Start: 03-05-2024 End: 12-01-2024 CBC panel - Blood by Automated count CBC Lab Routine Acute anemia Expected: 03/05/2024, Expires: 12/01/2024 [facility] Comment on above: Expected: 03/05/2024, Expires: Start: 02-25-2024 Influenza vaccination [facility] Start: 01-29-2024 End: 01-29-2024 Egd transoral biopsy single/multiple ESOPHAGOGASTRODUODENOSCOPY BIOPSY Duodenal ulcer 01/29/2024 12:41 PM EDT [facility] Start: 12-09-2023 End: 12-09-2023 Patient encounter procedure 12/09/2023 10:30 AM EDT Office Visit [facility] [address] [place] [address] Nicky Ugarte MD [address] [place] [address] EGD F/u 11/25/23 & 12/01/[address] 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 to guard supervisor [facility] Start: 10-21-2023 End: 10-21-2023 Patient encounter procedure 10/21/2023 10:30 AM EDT Office Visit [facility] [address] [place] [address] Catracho Sheriff MD [address] [place] [address] (Fax) [facility] Start: 09-12-2023 Screening for malignant neoplasm of colon [facility] Start: 2023 Respiratory Syncytial Virus (RSV) or age 60 yrs+ (1 - 1-dose 75+ series) Respiratory Syncytial Virus (RSV) or age 60 yrs+ (1 - 1-dose 75+ series) [facility] Start: 07-27-2023 Annual Wellness Visit (Medicare Advantage) Annual Wellness Visit (Medicare Advantage) [facility] Start: 03-27-2023 COVID-19 Vaccine ( season) COVID-19 Vaccine ( season) [facility] Start: 03-27-2023 Influenza vaccination Influenza Vaccine (#1) [facility] Start: 2008 Respiratory Syncytial Virus (RSV) or age 60 yrs+ (1 - 1-dose 60+ series) Respiratory Syncytial Virus (RSV) or age 60 yrs+ (1 - 1-dose 60+ series) [facility] Start: 11-12-2004 DTaP/Tdap/Td vaccine (1 - Tdap) DTaP/Tdap/Td vaccine (1 - Tdap) [facility] Start: 2003 Screening for osteoporosis DEXA (modify frequency per FRAX score) [facility] Start: 1998 Screening for malignant neoplasm of lung [facility] Start: 1998 Shingles vaccine (1 of 2) Shingles vaccine (1 of 2) [facility] Start: 1993 Screening for malignant neoplasm of colon [facility] Start: 1988 Lipid panel Lipids [facility] Start: 1966 Hepatitis C screening Hepatitis C screen [facility] Start: 1960 Depression Screen Depression Screen [facility] Start: 1948 Screening for malignant neoplasm of colon [facility] End: 12-20-2023 Basic Metabolic Panel w/ Reflex to MG Basic Metabolic Panel w/ Reflex to MG Lab Routine Daily for 3 Weeks starting 11/30/2023 until 12/20/2023, 4 completed [facility] Fwd: Power Comment on above: Daily for 3 Weeks starting 11/30/2023 un til 12/20/2023, 4 completed Body fluid culture Body fluid cu lture Microbiology Routine 04/26/2024 4:46 PM EDT [facility] Work Phone: End: 12-20-2023 CBC W Auto Differential panel - Blood CBC with Auto Differential Lab Routine Daily for 3 Weeks starting 11/30/2023 until 12/20/2023, 4 completed [facility] Fwd: Power Comment on above: Daily for 3 Weeks starting 11/30/2023 un til 12/20/2023, 4 completed EKG 12 Lead EKG 12 Lead ECG Routine 12/03/2023 5:35 AM EDT [facility]: Power EKG 12 Lead EKG 12 Lead ECG STAT 12/03/2023 5:35 AM EDT [employer] Work Phone: Helicobacter pylori Ag [Presence] in Stool by Immunoassay [facility] End: 11-29-2023 Hemoglobin and Hematocrit Hemoglobin and Hematocrit Lab Routine Post Transfusion Post Transfusion Post Transfustion until discontinued starting 11/28/2023 [employer] Comment on above: Post Transfusion Post Transfusion Post T ransfustion until discontinued starting 11/28/2023 End: 12-13-2023 Hemoglobin and Hematocrit Hemoglobin and Hematocrit Lab Routine Post Transfusion Post Transfusion Post Transfustion until discontinued starting 11/29/2023 [employer] Comment on above: Post Transfusion Post Transfusion Post T ransfustion until discontinued starting 11/29/2023 End: 12-14-2023 Hemoglobin and Hematocrit Hemoglobin and Hematocrit Lab Routine Post Transfusion Post Transfusion Post Transfustion until discontinued starting 11/30/2023 [employer] Comment on above: Post Transfusion Post Transfusion Post T ransfustion until discontinued starting 11/30/2023 End: 12-01-2023 INITIATE PACU OXYGEN THERAPY PROTOCOL Initiate PACU Oxygen Therapy Protocol Respiratory Care Routine Continuous until discontinued starting 12/01/2023 [employer] Work Phone: Comment on above: Continuous until discontinued starting 0 12/01/2023 Intermittent pulse oximetry Puls e Oximetry Spot Check Respiratory Care Routine As Needed until discontinued starting 11/27/2023 [employer] Comment on above: As Needed until discontinued starting Oxygen therapy [Mini mum Data Set] Initiate Oxygen Therapy Protocol Respiratory Care Routine As Needed until discontinued starting 11/25/2023 [employer] Comment on above: As Needed until discontinued starting Oxygen therapy [Mini mum Data Set] Initiate Oxygen Therapy Protocol Respiratory Care Routine As Needed until discontinued starting 01/29/2024 [employer] Work Phone: Comment on above: As Needed until discontinued starting Patient Education Duodenal Ulcer (DC) Pantoprazole Polysaccharide-Iron Complex [facility] Work Phone: Patient referral [facility] Work Phone: End: 11-27-2023 PREPARE RBC (CROSSMATCH), 1 Units PREPARE RBC (CROSSMATCH), 1 Units Blood Bank Routine Once for 1 Occurrences starting 11/27/2023 until 11/27/2023 [facility] Comment on above: Once for 1 Occurrences starting 11/27/19 until 11/27/2023 End: 11-29-2023 PREPARE RBC (CROSSMATCH), 1 Units PREPARE RBC (CROSSMATCH), 1 Units Blood Bank Routine Once for 1 Occurrences starting 11/29/2023 until 11/29/2023 [facility] Comment on above: Once for 1 Occurrences starting 11/29/19 until 11/29/2023 End: 11-30-2023 PREPARE RBC (CROSSMATCH), 1 Units PREPARE RBC (CROSSMATCH), 1 Units Blood Bank Routine Once for 1 Occurrences starting 11/30/2023 until 11/30/2023 [facility] Comment on above: Once for 1 Occurrences starting 11/30/19 until 11/30/2023 End: 11-29-2023 SPECIMEN REJECTION [facility] Comment on above: Once for 1 Occurrences starting 11/29/19 until 11/29/2023 End: 11-30-2023 SPECIMEN REJECTION [facility] Work Phone: Comment on above: Once for 1 Occurrences starting 11/30/19 until 11/30/2023 Surgical Pathology Surgical Path ology Lab Routine Duodenal ulcer Release Upon Ordering for 1 Occurrences starting 01/29/2024 [employer] Comment on above: Release Upon Ordering for 1 Occurrences starting 01/29/2024 End: 01-29-2024 SURGICAL PATHOLOGY REPORT SURGICAL PATHOLOGY REPORT Lab Routine Once for 1 Occurrences starting 01/29/2024 until 01/29/2024 [facility] Comment on above: Once for 1 Occurrences starting 01/29/20 until 01/29/2024 [facility] Immunizations Immunization Date Immunization Notes Care Provider [facility] 05-03-2021 Seasonal, trivalent, recombinant, injectable influenza vaccine, preservative free Catracho Sheriff MD Work Phone: [facility] 05-03-2021 influenza virus vacc ine, unspecified formulation Catracho Sheriff MD Work Phone: [facility] 12-03-2020 Pfizer Purple Cap SARS-CoV-2 Vaccination Catracho Sheriff MD Work Phone: [facility] 11-12-2020 Pfizer Purple Cap SARS-CoV-2 Vaccination Catracho Sheriff MD Work Phone: [facility] 09-26-2019 Influenza, High-dose Seasonal, Quadrivalent, Preservative Free Catracho Sheriff MD Work Phone: [facility] 09-26-2019 pneumococcal polysaccharide vaccine, 23 valent Catracho Sheriff MD Work Phone: [facility] 06-26-2018 influenza, injectabl e, quadrivalent, preservative free Catracho Sheriff MD Work Phone: [facility] 06-26-2018 pneumococcal conjuga te vaccine, 13 valent Catracho Sheriff MD Work Phone: [facility] 11-11-2004 pneumococcal polysaccharide vaccine, 23 valent Catracho Sheriff MD Work Phone: [facility] 11-11-2004 tetanus and diphther ia toxoids, adsorbed, preservative free, for adult use (5 Lf of tetanus toxoid and 2 Lf of diphtheria toxoid) Catracho Sheriff MD Work Phone: [facility] Payers Date Payer Category Payer Medicare [id number] 2023 Self-pay [id number] 2022 Medicare (Managed Care) [employer] [id number] 2008 Medicare [id number] 1959 Medicare [id number] 1948 Unknown [id number] 2.16.840.1.826559.3.579.2. 593 1948 Unknown [id number] 2.16.840.1.202661.3.579.2. 593 1948 Unknown [id number] 2.16.840.1.408326.3.579.2. 175 1948 Unknown [id number] 2.16.840.1.618111.3.579.2. 176 1948 Unknown [id number] 2.16.840.1.952070.3.579.2. 176 1948 Unknown [id number] 2.16.840.1.150305.3.579.2. 176 1948 Unknown [id number] 2.16.840.1.483331.3.579.2. 176 1948 Unknown [id number] 2.16.840.1.211304.3.579.2. 176 1948 Unknown [id number] 2.16.840.1.829286.3.579.2. 176 1948 Unknown [id number] 2.16.840.1.714002.3.579.2. 1259 1948 Unknown [id number] 2.16.840.1.448539.3.579.2. 1259 1948 Unknown [id number] 2.16.840.1.743987.3.579.2. 1259 1948 Unknown [id number] 2.16.840.1.852178.3.579.2. 1259 1948 Unknown [id number] 2.16.840.1.920702.3.579.2. 1258 1948 Unknown [id number] 2.16.840.1.330875.3.579.2. 125 1948 Unknown [id number] 2.16.840.1.211582.3.579.2. 1258 1948 Unknown [id number] 2.16.840.1.302012.3.579.2. 125 1948 Unknown [id number] 2.16.840.1.922330.3.579.2. 1258 1948 Unknown [id number] 2.16.840.1.823749.3.579.2. 1258 1948 Unknown [id number] 2.16.840.1.229781.3.579.2. 1258 1948 Unknown [id number] 2.16.840.1.400297.3.579.2. 125 1948 Unknown [id number] 2.16.840.1.773853.3.579.2. 1259 Medicaid Medicaid [place] [id number] Medicare Medicare Outpatient [id number] Unknown HCAP/HFA/FAP Active [id number] Unknown [id number] 2.16.840.1.012571.3.579.2. 531 Social History Date Type Detail Facility Start: 08-13-2023 End: 03-29-2024 Tobacco smoking status DEIS Ex-smoker [facility] Start: 11-17-2023 End: 03-22-2024 History of tobacco use Current smoker [facility] End: 03-22-2024 History of tobacco [...] Start: 1950 Sex Assigned At Female [facility] Start: 11-25-2023 Tobacco smoking stat us NHIS Smokes tobacco daily [employer] Has the [employer], [employer], oil, or water company threatened to shut off services in your home in past 12Mo Patient declined [employer] (I/We) worried uri er (my/our) food would run out before (I/we) got money to buy more. Never true [employer] How often do you nee d to [...] Facility 11-21-2023 Functional status Patient at Baseline [facility] Work Phone: Mental Status Date Assessment Result [...] Note Facility 08-17-2024 Telephone encounter Note error [facility] 08-17-2024 Miscellaneous Notes error documented in this encounter [facility] 07-28-2024 History of Present illness Narrative Pre-op [...] lotion, powder, jewelry, piercings, perfume, makeup, nail icelandic, hair accessories, or hair spray on the day of surgery. Wear loose comfortable clothing. Leave your valuables at home but bring a payment source for any after-surgery prescriptions you plan to fill at [facility]. Bring a storage case for any glasses/contacts. An adult who is responsible for you MUST drive you home and should be with you for the first 24 hours after surgery. The Day of Surgery: Arrive at [facility] Surgery Entrance at the time directed by your surgeon and check in at the desk. If you have a living will or healthcare power of textile slitting machine operator, please bring a copy. You will be taken to the pre-op holding area where you will be prepared for surgery. A physical assessment will be performed by a nurse practitioner or rooming house operator. Your IV will be started [...] EGD 08/05/24 documented in this encounter [facility] 07-13-2024 History of Present illness Narrative [...] down to the shoulder blades. She is [id number] tender in this area. Decreased range of [...] by mouth at bedtime 90 tablet 1 [place]-3 Fatty Acids (Fish Oil) 1000 MG capsule [...] 90 tablet; Refill: 1 11. Postsurgical hypothyroidism ([facility]) - levothyroxine (Synthroid) 175 MCG tablet; Take [...] evaluation and management. documented in this encounter [facility] 06-27-2024 History of Present illness Narrative Pre-op [...] lotion, powder, jewelry, piercings, perfume, makeup, nail icelandic, hair accessories, or hair spray on the day of surgery. Wear loose comfortable clothing. Leave your valuables at home but bring a payment source for any after-surgery prescriptions you plan to fill at [facility]. Bring a storage case for any glasses/contacts. An adult who is responsible for you MUST drive you home and should be with you for the first 24 hours after surgery. Son will ride in cab with her The Day of Surgery: Arrive at [facility] Surgery Entrance at the time directed by your surgeon and check in at the desk. If you have a living will or healthcare power of textile slitting machine operator, please bring a copy. You will be taken to the pre-op holding area where you will be prepared for surgery. A physical assessment will be performed by a nurse practitioner or rooming house operator. Your IV will be started [...] understanding of instructions documented in this encounter [facility] 06-21-2024 Telephone encounter Note RX sent [facility] 06-21-2024 Miscellaneous Notes RX sent documented in this encounter [facility] 06-15-2024 Telephone encounter Note See CCM note. RX sent [facility] 06-15-2024 Miscellaneous Notes See CCM note. RX sent documented in this encounter [facility] 05-02-2024 History of Present illness Narrative Images [...] by mouth at bedtime 90 tablet 1 Florence-3 Fatty Acids (Fish Oil) 1000 MG capsule [...] referral up to the vascular surgeon in [place]. Not sure if there is much he [...] Handicap Placard Lifetime documented in this encounter [facility] 04-28-2024 History of Present illness Narrative Images [...] by mouth at bedtime 90 tablet 1 Florence-3 Fatty Acids (Fish Oil) 1000 MG capsule [...] develop a thrombophlebitis. documented in this encounter [facility] 04-26-2024 History of Present illness Narrative Images [...] by mouth at bedtime 90 tablet 1 Florence-3 Fatty Acids (Fish Oil) 1000 MG capsule [...] met with resistance. documented in this encounter [facility] 04-14-2024 History of Present illness Narrative Images [...] by mouth at bedtime 90 tablet 1 Florence-3 Fatty Acids (Fish Oil) 1000 MG capsule [...] seek medical care. documented in this encounter [facility] 03-29-2024 History of Present illness Narrative Pre-op [...] lotion, powder, jewelry, piercings, perfume, makeup, nail icelandic, hair accessories, or hair spray on the day of surgery. Wear loose comfortable clothing. Leave your valuables at home but bring a payment source for any after-surgery prescriptions you plan to fill at [facility]. Bring a storage case for any glasses/contacts. An adult who is responsible for you MUST drive you home and should be with you for the first 24 hours after surgery. The Day of Surgery: Arrive at [facility] Surgery Entrance at the time directed by your surgeon and check in at the desk. If you have a living will or healthcare power of textile slitting machine operator, please bring a copy. You will be taken to the pre-op holding area where you will be prepared for surgery. A physical assessment will be performed by a nurse practitioner or rooming house operator. Your IV will be started [...] DILATION- 04/12/2024 documented in this encounter [facility] 01-29-2024 Hospital Discharge instructions Drew Lund RN [...] neck pain documented in this encounter [facility] 12-03-2023 History of Present illness Narrative Pt [...] Unable to assess Fluid Accumulation: Mild Extremities Household Refrigerator Mechanic Strength: Not Performed Nutrition Assessment: Diet advanced [...] Measures: Height: 160 cm (5' 2.99 ) [place] Body Weight (IBW): 115 lbs (52 kg) [...] Used for Energy Requirements: Admission Energy (kcal/day): 2142-1900 kcals/day Weight Used for Protein Requirements: Admission Protein (g/day): 80 to 100 g/day Method Used for Fluid Requirements: 1 ml/kcal Fluid (ml/day): 2523-2605 mL/day or per MD Nutrition Diagnosis: Inadequate [...] Oral Nutrition Supplement Zenobia Negrete RD Contact: [phone] Images from the original note were not included. [facility] Office: [phone] Alvin Ma DO, Erick Burns DO, Varghese [...] Lugo MD, Bruce Pozo MD, Aida Montemayor, TYPE COPYIST, Nereyda Patiño, TYPE COPYIST, Vito Calabrese, TYPE COPYIST, Karime Keane, [facility], Halima Mason, TYPE COPYIST, Carmen Orozco, TYPE COPYIST, Kathy Flores, TYPE COPYIST, Farnaz Burgos, TYPE COPYIST, Maricel Burger, PA-C, Alicia Veliz, PA-C, Olivia Stiles, TYPE COPYIST, Ying Singleton, TYPE COPYIST, Vikas Laird, TYPE COPYIST, Mira Pina, TYPE COPYIST, Briana Lim, TYPE COPYIST, Shirley Johnson, [facility], Jenny Denise, TYPE COPYIST, Jasmine Leong, TYPE COPYIST, Janice Perla, TYPE COPYIST [facility] IN-PATIENT SERVICE [facility] Progress Note 12/03/2023 8:14 AM Name: Jenny Ewing Acct: [id number] Room: Day: 8 Admit Date: 11/25/2023 4:07 AM PCP: No primary care provider on file. Code Status: Full Code Subjective: C/C: GI bleed Interval History Status: stable. Overnight patient went into A-fib with RVR. Seen and examined bedside this morning. She was in normal sinus rhythm. Denied any symptoms. Evaluated by cardiology and started on low-dose beta-vu. Pending placement to [facility] Brief History: 73 year old female with past medical history of smoking, depression, back pain presents with maroon and black stools at home as well as a fall. Patient has history of GI bleed was clipped ad EGD, reports not available. Patient has hemoglobin of 6.6. received 1 unit transfusion at [facility]. She has not been able to hand picker her medications from prior discharge from [facility]. They were sent to her pharmacy on [...] input(s): PROT , LABALBU , LABA1C , Q8CWFPI , S1NJWLM , FT4 , TSH , AST , ALT , LDH , GGT , ALKPHOS , BILITOT , BILIDIR , AMMONIA , AMYLASE , LIPASE , LACTATE , CHOL , HDL , CHOLHDLRATIO , TRIG , VLDL , FSZ02WQ , PHENYTOIN , PHENYF , URICACID , POCGLU in the last 72 hours. Invalid input(s): LABGGT , LDLCHOLESTEROL ABG:No results found for: POCPH , PHART , PH , POCPCO2 , DSI0LUV , PCO2 , POCPO2 , PO2ART , PO2 , POCHCO3 , WDC3QQK , HCO3 , NBEA , PBEA , BEART , BE , THGBART , THB , NVY4SJD , YCGP7BKI , E1ANXMNZ , O2SAT , FIO2 No results found [...] Yes Plan: New onset A-fib with RVR [id number] 5-currently in normal sinus rhythm. Evaluated by [...] SNF.. Carol Abreu MD 12/03/2023 8:14 AM [facility] Gastroenterology Progress Note Jenny Ewing is [...] results for input(s): TIBC , FERRITIN , [id number] , FOLATE , OCCULTBLD in the last [...] contact me with any questions or concerns. [facility] Gastroenterology PATY Quijano CNP [phone] 12/02/2023 3:14 PM Estimated time of 20 [...] from the original note were not included. [facility] Office: [phone] Alvin Ma DO, Erick Burns DO, Varghese [...] Pozo MD, Aida Montemayor CNP, Nereyda Patiño TYPE COPYIST, Vito Calabrese, TYPE COPYIST, Karime Keane, AAYUSH, Halima Mason, TYPE COPYIST, Carmen Orozco, TYPE COPYIST, Kathy Flores TYPE COPYIST, Farnaz Burgos TYPE COPYIST, Maricel Burger, PA-C, Alicia Veliz PA-C, Olivia Stiles, TYPE COPYIST, Ying Singleton, TYPE COPYIST, Vikas Laird TYPE COPYIST, Mira Pina, TYPE COPYIST, Briana Lim, TYPE COPYIST, Shirley Johnson, MANUFACTURING EXECUTIVE, Jenny Denise, TYPE COPYIST, Jasmine Leong TYPE COPYIST, Janice Perla, TYPE COPYIST [facility] IN-PATIENT SERVICE [facility] Progress Note 12/02/2023 9:48 AM Name: Jenny Ewing Acct: [id number] Room: IP Day: 7 Admit Date: 11/25/2023 [...] of 6.6. received 1 unit transfusion at [facility]. She has not been able to hand picker her medications from prior discharge from [facility]. They were sent to her pharmacy on [...] , PHART , PH , POCPCO2 , KDZ5YOR , PCO2 , POCPO2 , PO2ART , PO2 , POCHCO3 , KVR1KWU , HCO3 , NBEA , PBEA , BEART , BE , THGBART , THB , HDQ1QDK , GEQL2SPB , U3OJTCPG , O2SAT , FIO2 No results found [...] versus home with home care with daughter. foster care case manager to follow. Carol Abreu MD 12/02/2023 9:48 AM Occupational Therapy Facility/Department: [facility]- [facility] Occupational Therapy Initial [...] of 6.6. received 1 unit transfusion at [facility]. She has not been able to hand picker her medications from prior discharge from [facility]. 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 received 1 unit transfusion at [facility]. She has not been able to hand picker her medications from prior discharge from [facility]. They were sent to her pharmacy on [...] Reassurance given and PT spoke with DC life care planner and told pt's concerns. 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 [facility] Office: [phone] Alvin Ma DO, Erick Burns DO, Varghese Abreu DO, Randy Zelaya DO, Raz Monzon MD, Tiara Quintana MD, Lianet Murcia MD, Nicolle Cardoso MD, Ray De La Cruz MD, Kathi Ibanez MD, Diana Joseph MD, Yoselin De La Paz DO, Osvaldo Cortes MD, Patrick Mcbride MD, Jesus Ma DO, Amira King MD, Grabiel Bneedict DO, Rubi Frias MD, Teresa Queen MD, Susan Collins MD, Carol Abreu MD, Ehsan Palacio MD, Elma Tejada MD, Elgin Young MD, Kelsie Oneill MD, Klaus Yeung MD, Deanna Coyle MD, Carlos Jaquez DO, Reynaldo Hameed DO, Jie Lugo MD, Bruce Pozo MD, Aida Montemayor, TYPE COPYIST, Nereyda Patiño, TYPE COPYIST, Vito Calabrese, TYPE COPYIST, Karime Keane, [facility], Halima Mason, TYPE COPYIST, Carmen Orozco, TYPE COPYIST, Kathy Flores, TYPE COPYIST, Farnaz Burgos, TYPE COPYIST, Maricel Burger, PA-C, Alicia Veliz, PA-C, Olivia Stiles, TYPE COPYIST, Ying Singleton, TYPE COPYIST, Vikas Laird, TYPE COPYIST, Mira Pina, TYPE COPYIST, Briana Lim, [facility], Shirley Johnson, [facility], Jenny Denise, TYPE COPYIST, Jasmine Leong, TYPE COPYIST, Janice Perla, TYPE COPYIST [facility] IN-PATIENT SERVICE [facility] Progress Note 12/01/2023 3:27 PM Name: Jenny Ewing Acct: [id number] Room: IP Day: 6 Admit Date: 11/25/2023 [...] of 6.6. received 1 unit transfusion at [facility]. She has not been able to hand picker her medications from prior discharge from [facility]. They were sent to her pharmacy on [...] (HCC), COPD (chronic obstructive pulmonary disease) ([facility]), Depression, History of blood transfusion, [...] , PHART , PH , POCPCO2 , EOO5LLU , PCO2 , POCPO2 , PO2ART , PO2 , POCHCO3 , LCO0DPV , HCO3 , NBEA , PBEA , BEART , BE , THGBART , THB , OMO6DIV , GZSH8WQA , G2ESQPTX , O2SAT , FIO2 No results found [...] Unable to assess Fluid Accumulation: Mild Extremities Household Refrigerator Mechanic Strength: Not Performed Nutrition Assessment: Pt started [...] Measures: Height: 160 cm (5' 2.99 ) [place] Body Weight (IBW): 115 lbs (52 kg) [...] Used for Energy Requirements: Admission Energy (kcal/day): 0821-6255 kcals/day Weight Used for Protein Requirements: Admission Protein (g/day): 80 to 100 g/day Method Used for Fluid Requirements: 1 ml/kcal Fluid (ml/day): 9615-6602 mL/day or per MD Nutrition Diagnosis: Inadequate [...] to determine Carla Scott RD, LD Contact: [phone] Images from the original note were not included. [facility] Office: [phone] Alvin Ma DO, Erick Burns DO, Varghese [...] Montemayor CNP, Nereyda Patiño CNP, Vito Calabrese, TYPE COPYIST, Karime Keane, DNP, Halima Mason, TYPE COPYIST, Carmen Orozco, TYPE COPYIST, Kathy Flores, TYPE COPYIST, Farnaz Burgos, TYPE COPYIST, Maricel Burger, PAGarrettC, Alicia Veliz, PAGarrettC, Olivia Stiles, TYPE COPYIST, Ying Singleton, TYPE COPYIST, Vikas Laird, TYPE COPYIST, Mira Pina, TYPE COPYIST, Briana Lim, TYPE COPYIST, Shirley Johnson, [facility], Jenny Denise, TYPE COPYIST, Jasmine Leong, TYPE COPYIST, Janice Perla, TYPE COPYIST [facility] IN-PATIENT SERVICE [facility] Progress Note 11/30/2023 12:31 PM Name: Jenny Ewing Acct: [id number] Room: Day: 5 Admit Date: 11/25/2023 4:07 [...] of 6.6. received 1 unit transfusion at [facility]. She has not been able to hand picker her medications from prior discharge from [facility]. They were sent to her pharmacy on [...] Arthritis, Cerebral artery occlusion with cerebral infarction ([facility]), COPD (chronic obstructive pulmonary disease) (HCC), Depression, [...] , PHART , PH , POCPCO2 , FNH3QHU , PCO2 , POCPO2 , PO2ART , PO2 , POCHCO3 , FDK1JRO , HCO3 , NBEA , PBEA , BEART , BE , THGBART , THB , OYM6WHL , MMVM1SGO , B9CKFFUV , O2SAT , FIO2 No results found [...] Patient's name: Jenny Ewing Patient's account/billing number: [id number] Patient's Date of : 1950 Age: 73 y.o. Date of Admission: 11/25/2023 4:07 AM Length of stay during current admission: 5 Primary Care Physician: No primary care provider on file. Code Status: Full Code Mode of physician to physician communication: [x] Via telephone [] In person Date and time of sign-out: 11/30/2023 10:16 AM Accepting Internal Medicine TRANSPORT DRIVER: Karime Keane Accepting Medicine team: Inter[facility] Accepting [...] the floor. Gino Quarles Emergency Medicine Resident [facility] 11/30/2023 10:16 AM INTENSIVE CARE UNIT [...] Bank Sample Expiration 11/28/2023,2359 Arm Band Number [id number] ABO/Rh A POSITIVE Antibody Screen NEGATIVE Unit Number [id number] Component Leukocyte Reduced Red Cell Unit Divison 00 Dispense Status Blood Bank TRANSFUSED Unit Issue Date/Time [id number] Product Code Blood Bank [id number] Blood Bank Unit Type and Rh A POS Blood Bank ISBT Product Blood Type 6200 Blood Bank Blood Product Expiration Date Transfusion Status OK TO TRANSFUSE Crossmatch Result COMPATIBLE Unit Number [id number] Component Leukocyte Reduced Red Cell Unit Divison 00 Dispense Status Blood Bank TRANSFUSED Unit Issue Date/Time 076057298722 Product Code Blood Bank J0652R41 Blood Bank Unit Type and Rh A POS Blood Bank ISBT Product Blood Type 6200 Blood Bank Blood Product Expiration Date Transfusion Status OK TO TRANSFUSE Crossmatch Result COMPATIBLE Unit Number [id number] Component Leukocyte Reduced Red Cell Unit Divison 00 Dispense Status Blood Bank TRANSFUSED Unit Issue Date/Time 306208577422 Product Code Blood Bank G9158Y66 Blood Bank Unit Type and Rh A POS Blood Bank ISBT Product Blood Type 6200 Blood Bank Blood Product Expiration Date Transfusion Status OK TO TRANSFUSE Crossmatch Result COMPATIBLE TYPE AND SCREEN Result Value Ref Range Blood Bank Sample Expiration 12/02/2023,235 Arm Band Number [id number] ABO/Rh A POSITIVE Antibody Screen NEGATIVE Unit Number [id number] Component Leukocyte Reduced Red Cell Unit Divison 00 Dispense Status Blood Bank TRANSFUSED Unit Issue Date/Time 300497218487 Product Code Blood Bank [id number] Blood Bank Unit Type and Rh A POS Blood Bank ISBT Product Blood Type 6200 Blood Bank Blood Product Expiration Date Transfusion Status OK TO TRANSFUSE Crossmatch Result COMPATIBLE Unit Number [id number] Component Leukocyte Reduced Red Cell Unit Divison 00 Dispense Status Blood Bank TRANSFUSED Unit Issue Date/Time 958424364570 Product Code Blood Bank G8739P73 Blood Bank Unit Type and Rh A POS Blood Bank ISBT Product Blood Type 6200 Blood Bank Blood Product Expiration Date Transfusion Status OK TO TRANSFUSE Crossmatch Result COMPATIBLE Unit Number [id number] Component Leukocyte Reduced Red Cell Unit Divison 00 Dispense Status Blood Bank ISSUED Unit Issue Date/Time 330523947080 Product Code Blood Bank V7023C09 Blood Bank Unit Type and Rh A [...] degrees Ulcer prophylaxis: [x] PPI Agent, [] Z8Svoyc, [] Sucralfate, [] Other: Glycemic control: Controlled [...] history and exam findings with the resident/fellow/medical student/TRANSPORT DRIVER/PA. I have seen and examined the patient and the jiménez elements of the encounter have been performed by me. I agree with the assessment, plan and orders as documented by the resident/fellow/medical student/TRANSPORT DRIVER/PA With changes made to the note as needed. Pt was seen during rounds. Review of Systems: In addition to the pertinent positives and negatives as stated within HPI and the review of systems as documented in their notes, all other systems were reviewed when able to and are reported negative. Please see my attestation for the H&P Arnaud Bryant MD 11/30/2023 8:08 PM [facility] Gastroenterology Progress Note Jenny Ewing is [...] results for input(s): TIBC , FERRITIN , OQHKLOSY70 , FOLATE , OCCULTBLD in the last [...] contact me with any questions or concerns. [facility] Gastroenterology Omar Jarrell APRN - TYPE COPYIST [phone] 11/30/2023 7:54 AM Estimated time of 20 [...] Care Planning Advance Care Planning Inpatient Note [facility] Department Today's Date: 11/29/2023 Unit: [facility] Received request from HealthCare Provider. Upon review [...] Planning Documents (Patient Wishes): Healthcare Power of Physician President/Advance Directive Appointment of Health Care Agent Assessment: [...] need for IR intervention. All calls through [employer] would ring but unable to be connected. [...] from the original note were not included. [facility] Office: [phone] Alvin Ma DO, Erick Burns DO, Varghese [...] Lugo MD, Bruce Pozo MD, Aida Montemayor, TYPE COPYIST, Nereyda Patiño, TYPE COPYIST, Vito Calabrese, TYPE COPYIST, Karime Keane, DNP, Halima Mason, TYPE COPYIST, Carmen Orozco, TYPE COPYIST, Kathy Flores, TYPE COPYIST, Farnaz Burgos, TYPE COPYIST, Maricel Burger PAGarrettC, Alicia Veliz PAGarrettC, Olivia Stiles, TYPE COPYIST, Ying Singleton, TYPE COPYIST, Vikas Laird, TYPE COPYIST, Mira Pina, TYPE COPYIST, Briana Lim, TYPE COPYIST, Shirley Johnson, MANUFACTURING EXECUTIVE, Jenny Denise, TYPE COPYIST, Jasmine Leong, TYPE COPYIST, Janice Perla, TYPE COPYIST [facility] IN-PATIENT SERVICE [facility] Progress Note 11/29/2023 9:01 AM Name: Jenny Ewing Acct: [id number] Room: [facility]/0431-01 Day: 4 Admit Date: 11/25/2023 4:07 AM [...] of 6.6. received 1 unit transfusion at [facility]. She has not been able to hand picker her medications from prior discharge from [facility]. They were sent to her pharmacy on [...] input(s): PROT , LABALBU , LABA1C , D8QFNVS , X4ECJRA , FT4 , TSH , AST , ALT , LDH , GGT , ALKPHOS , BILITOT , BILIDIR , AMMONIA , AMYLASE , LIPASE , LACTATE , CHOL , HDL , CHOLHDLRATIO , TRIG , VLDL , AVS31QU , PHENYTOIN , PHENYF , URICACID , POCGLU in the last 72 hours. Invalid input(s): LABGGT , LDLCHOLESTEROL ABG:No results found for: POCPH , PHART , PH , POCPCO2 , VSF2OJS , PCO2 , POCPO2 , PO2ART , PO2 , POCHCO3 , AAS2BMU , HCO3 , NBEA , PBEA , BEART , BE , THGBART , THB , FID4XIH , DPBT3BBL , D2CMYOFV , O2SAT , FIO2 No results found [...] Patient was having increased bouts of diarrhea. TRANSPORT DRIVER notified. Imodium ordered. Images from the original note were not included. [facility] Office: [phone] Alvin aM DO, Erick Burns DO, Varghese [...] Lugo MD, Bruce Pozo MD, Aida Montemayor, TYPE COPYIST, Nereyda Patiño, TYPE COPYIST, Vito Calabrese, TYPE COPYIST, Karime Keane, [facility], Halima Mason, TYPE COPYIST, Carmen Orozco, TYPE COPYIST, Kathy Flores, TYPE COPYIST, Farnaz Burgos, TYPE COPYIST, Maricel Burger, PAGarrettC, Alicia Veliz, PAGarrettC, Olivia Stiles, TYPE COPYIST, Ying Singleton, TYPE COPYIST, Vikas Laird, TYPE COPYIST, Mira Pina, TYPE COPYIST, Briana Lim, TYPE COPYIST, Shirley Johnson, [facility], Jenny Denise, TYPE COPYIST, Jasmine Leong, TYPE COPYIST, Janice Perla, TYPE COPYIST [facility] IN-PATIENT SERVICE [facility] Progress Note 11/28/2023 9:54 AM Name: Jenny Ewing Acct: [id number] Room: 0431/0431-01 Day: 3 Admit Date: 11/25/2023 [...] of 6.6. received 1 unit transfusion at [facility]. She has not been able to hand picker her medications from prior discharge from [facility]. They were sent to her pharmacy on [...] input(s): PROT , LABALBU , LABA1C , K3KOOBM , X6IPISI , FT4 , TSH , AST , ALT , LDH , GGT , ALKPHOS , BILITOT , BILIDIR , AMMONIA , AMYLASE , LIPASE , LACTATE , CHOL , HDL , CHOLHDLRATIO , TRIG , VLDL , NNE50IU , PHENYTOIN , PHENYF , URICACID , POCGLU in the last 72 hours. Invalid input(s): LABGGT , LDLCHOLESTEROL ABG:No results found for: POCPH , PHART , PH , POCPCO2 , XMJ9DYV , PCO2 , POCPO2 , PO2ART , PO2 , POCHCO3 , EZK5LIN , HCO3 , NBEA , PBEA , BEART , BE , THGBART , THB , KNU1RKV , DZEJ3WMU , H2YZOFEM , O2SAT , FIO2 No results found [...] IMPLEMENT AEROSOL/MDI PROTOCOL [x] PATIENT EDUCATION NEEDED [facility] Gastroenterology Progress Note Jenny Ewing is [...] the chart review patient initially presented to [facility] with a complaint of fall secondary to fatigue and feeling weak, during that time the EMS noticed that patient is having black-colored stools the workup done in the outlying facility ruled out any stroke and patient did not hit her head when she fell as well. Labs in the [facility] are consistent with critically low hemoglobin about 4.8 g where she received 1 unit of transfusion later transferred to the [facility] for further evaluation. Patient is admitted [...] paper charts the patient has been to [facility] 10 days back for GI bleed. They have done EGD and found duodenal ulcer and was clipped. She was not able to hand picker her medications after the discharge from the [facility]. VITALS: BP 128/64 Pulse (!) 117 Temp [...] results for input(s): TIBC , FERRITIN , ENDJQBTA20 , FOLATE , OCCULTBLD in the last [...] contact me with any questions or concerns. [facility] Gastroenterology Abhishek Bryant MD [phone] 11/28/2023 7:45 AM Estimated time of mins [...] from the original note were not included. [facility] Office: [phone] Alvin Ma DO, Erick Burns DO, Varghese [...] Montemayor CNP, Nereyda Patiño CNP, Vito Calabrese, TYPE COPYIST, Karime Keane, AAYUSH, Halima Mason, TYPE COPYIST, Carmen Orozco, TYPE COPYIST, Kathy Flores, TYPE COPYIST, Farnaz Burgos, TYPE COPYIST, ARTUR ColonC, ARTUR RodriguezC, Oliiva Stiles, TYPE COPYIST, Ying Singleton, TYPE COPYIST, Vikas Laird, TYPE COPYIST, Mira Pina, TYPE COPYIST, Briana Lim, TYPE COPYIST, Shirley Johnson, MANUFACTURING EXECUTIVE, Jenny Denise, TYPE COPYIST, Jasmine Leong, TYPE COPYIST, Janice Perla CNP [facility] IN-PATIENT SERVICE [facility] Progress Note 11/27/2023 9:39 AM Name: Jenny Ewing Acct: [id number] Room: 0431/0431-01 Day: 2 Admit Date: 11/25/2023 [...] of 6.6. received 1 unit transfusion at [facility]. She has not been able to hand picker her medications from prior discharge from [facility]. They were sent to her pharmacy on [...] input(s): PROT , LABALBU , LABA1C , K2ZIQSF , R3DUGNE , FT4 , TSH , AST , ALT , LDH , GGT , ALKPHOS , BILITOT , BILIDIR , AMMONIA , AMYLASE , LIPASE , LACTATE , CHOL , HDL , CHOLHDLRATIO , TRIG , VLDL , BFK55CK , PHENYTOIN , PHENYF , URICACID , POCGLU in the last 72 hours. Invalid input(s): LABGGT , LDLCHOLESTEROL ABG:No results found for: POCPH , PHART , PH , POCPCO2 , PWU6OHM , PCO2 , POCPO2 , PO2ART , PO2 , POCHCO3 , FZD8YPM , HCO3 , NBEA , PBEA , BEART , BE , THGBART , THB , JAU6QIG , FPUL7TJM , N6EZSKBY , O2SAT , FIO2 No results found [...] nightly Deanna Coyle MD 11/27/2023 9:39 AM [facility] Gastroenterology Progress Note Jenny Ewing is [...] the chart review patient initially presented to [facility] with a complaint of fall secondary to fatigue and feeling weak, during that time the EMS noticed that patient is having black-colored stools the workup done in the outlying facility ruled out any stroke and patient did not hit her head when she fell as well. Labs in the [facility] are consistent with critically low hemoglobin about 4.8 g where she received 1 unit of transfusion later transferred to the [facility] for further evaluation. Patient is admitted [...] paper charts the patient has been to [facility] 10 days back for GI bleed. They have done EGD and found duodenal ulcer and was clipped. She was not able to hand picker her medications after the discharge from the [facility]. VITALS: BP 116/69 Pulse 77 Temp 97.5 [...] contact me with any questions or concerns. 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 PMH significant for GERD. Pt s/p EGD with duodenal ulcer repair (11/24). 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 Per pt, believes she had a [...] Measures: Height: 160 cm (5' 2.99 ) [place] Body Weight (IBW): 115 lbs (52 kg) [...] from the original note were not included. [facility] Office: [phone] Alvin Ma DO, Erick Burns DO, Varghese [...] Pozo MD, Aida Montemayor, OSVALDO, Nereyda Patiño TYPE COPYIST, Vito Calabrese, TYPE COPYIST, Karime Keane, DNP, Halima Mason, TYPE COPYIST, Carmen Orozco, TYPE COPYIST, Kathy Flores, TYPE COPYIST, Farnaz Burgos, TYPE COPYIST, Maricel Burger, PA-C, Alicia Veliz PA-C, Olivia Stiles, TYPE COPYIST, Ying Singleton, TYPE COPYIST, Vikas Laird, TYPE COPYIST, Mira Pina, TYPE COPYIST, Briana Lim, TYPE COPYIST, Shirley Johnson, MANUFACTURING EXECUTIVE, Jenny Denise, TYPE COPYIST, Jasmine Leong, TYPE COPYIST, Janice Perla, TYPE COPYIST [facility] IN-PATIENT SERVICE [facility] Progress Note 11/26/2023 11:14 AM Name: Jenny Ewing Acct: [id number] Room: 0431/0431-01 Day: 1 Admit Date: 11/25/2023 [...] of 6.6. [facility] She has not been able to hand picker her medications from prior discharge from [facility]. They were sent to her pharmacy on [...] input(s): PROT , LABALBU , LABA1C , P7UIHIW , J6QBTZH , FT4 , TSH , AST , ALT , LDH , GGT , ALKPHOS , BILITOT , BILIDIR , AMMONIA , AMYLASE , LIPASE , LACTATE , CHOL , HDL , CHOLHDLRATIO , TRIG , VLDL , GNO84SY , PHENYTOIN , PHENYF , URICACID , POCGLU in the last 72 hours. Invalid input(s): LABGGT , LDLCHOLESTEROL ABG:No results found for: POCPH , PHART , PH , POCPCO2 , YDD8ZMK , PCO2 , POCPO2 , PO2ART , PO2 , POCHCO3 , LNH1MLI , HCO3 , NBEA , PBEA , BEART , BE , THGBART , THB , PMU2BEM , JLEG4HYB , N9PGXDDX , O2SAT , FIO2 No results found [...] Midodrine Deanna Coyle MD 11/26/2023 11:14 AM [facility] Gastroenterology Progress Note Jenny Ewing is a [...] the chart review patient initially presented to [facility] with a complaint of fall secondary to fatigue and feeling weak, during that time the EMS noticed that patient is having black-colored stools the workup done in the outlying facility ruled out any stroke and patient did not hit her head when she fell as well. Labs in the [facility] are consistent with critically low hemoglobin about 4.8 g where she received 1 unit of transfusion later transferred to the [facility] for further evaluation. Patient is admitted [...] paper charts the patient has been to [facility] 10 days back for GI bleed. They have done EGD and found duodenal ulcer and was clipped. She was not able to hand picker her medications after the discharge from the [facility]. VITALS: BP 108/61 Pulse 78 Temp 98.4 [...] contact me with any questions or concerns. [facility] Gastroenterology Abhishek Malina Bryant MD [phone] 11/26/2023 8:00 AM Estimated time of mins [...] new orders. documented in this encounter [facility] 12-02-2023 Hospital Discharge instructions [...] Discharging Hospital Unit/Room#: Discharging Unit Phone Number: [phone] Emergency Contact: Extended Emergency Contact Information Primary Emergency Contact: Pearl Julien Relation: Child Secondary Emergency Contact: Radha Ventura Mobile Relation: Friend Therapy Technician needed? No Past Surgical History: Past Surgical History: Procedure Laterality Date SECTION x2 CHOLECYSTECTOMY COLONOSCOPY ENDOSCOPY, COLON, DIAGNOSTIC ESOPHAGOGASTRODUODENOSCOPY N/A 11/25/2023 ESOPHAGOGASTRODUODENOSCOPY 12/01/2023 EYE SURGERY FRACTURE SURGERY HYSTERECTOMY (CERVIX STATUS UNKNOWN) IR EMBOLIZATION HEMORRHAGE 11/27/2023 IR EMBOLIZATION HEMORRHAGE 11/27/2023 Jorge Russo MD [facility] SPECIAL PROCEDURES SKIN BIOPSY UPPER GASTROINTESTINAL ENDOSCOPY N/A 11/25/2023 *ADD ON* ESOPHAGOGASTRODUODENOSCOPY control hemorrhage performed by Nicky Ugarte MD at [facility] OR Immunization History: Immunization History Administered [...] Assisted Dressing Assisted Toileting Assisted Feeding Assisted Prototype Assembler Electronics Assisted Med Delivery whole Wound Care Documentation [...] NOT a DME order): walker Other Treatments: retirement, pt would like to speak with 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 prevention social worker from [facility] office was closed on attempt 12/02 Patient's personal belongings (please select all that are sent with patient): Glasses RN SIGNATURE: CASE MANAGEMENT/SOCIAL WORK SECTION Inpatient Status Date: Readmission Risk Assessment Score: Readmission Risk Risk of Unplanned Readmission: 11 Discharging to Facility/ Agency Name: [facility] Address: Phone: Fax: Pharmacy Manager/Division Toll Wire Chief signature: PHYSICIAN SECTION Prognosis: Good Condition at Discharge: Stable Rehab Potential (if transferring to Rehab): Good Recommended Labs or Other Treatments After Discharge: Continue PT OT. Monitor hemoglobin follow-up with PCP and GI. CBC 03/05/2024 Physician Certification: I certify the above information and transfer of Jenny Ewing is necessary for the continuing treatment of the diagnosis listed and that she requires retirement facility for less 30 days. Update Admission H&P: No change in H&P PHYSICIAN SIGNATURE: documented in this encounter [facility] 11-28-2023 Note PROCEDURE: IR EMBOLIZATION VASCULAR ANY HEMORRHAGE 11/27/2023 HISTORY: ORDERING SYSTEM PROVIDED HISTORY: Embolization of GDA/GI bleed TECHNOLOGIST PROVIDED HISTORY: Embolization of GDA/GI bleed CONTRAST: Isovue 370-110 mL SEDATION: Fentanyl 50 mcg IV for discomfort. Medications were provided and recorded by Radiology nurses. FLUOROSCOPY DOSE AND TYPE: Fluoroscopy time-15.7 minutes. Radiation Exposure Index: DAP cGy*m2, 50114 DESCRIPTION OF PROCEDURE: Arteries interrogated: Celiac, GDA, [...] for a 0.035 inch wire and 5 [place] introducer sheath. Randal 5 [place] x 65 cm catheter was introduced and the celiac artery catheterize; hand celiac angiography was performed. A 0.035 inch glidewire was manipulated into the distal hepatic arteries, catheter exchanged for a 5 [place] Cobra glide catheter which was manipulated into the origin GDA. Digital angiography was then performed. Datanyze delivery microcatheter 45 degree tip was then [...] removed. Subsequent hand injection via the 5 [place] catheter the proper hepatic was performed. The guide catheter was removed, and the Randal catheter reinserted. Celiac and SMA digital angiography were then performed. The Randal catheter was removed. Hand digital angiography right iliofemoral vessels was performed at the groin. The right groin was re-prepped, and a 5 [place] Vascade closure device was deployed right TAKE DOWN INSPECTOR. The patient tolerated procedure well and there [...] or site of bleeding identified. Normal right TAKE DOWN INSPECTOR entry site pre closure device placement. 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 Interpreted by: Jorge Russo MD Signed by: Jorge Russo MD 11/28/23 Final result [facility] 11-28-2023 Note PROCEDURE: IR EMBOLIZATION VASCULAR ANY HEMORRHAGE 11/27/2023 HISTORY: ORDERING SYSTEM PROVIDED HISTORY: Embolization of GDA/GI bleed TECHNOLOGIST PROVIDED HISTORY: Embolization of GDA/GI bleed CONTRAST: Isovue 370-110 mL SEDATION: Fentanyl 50 mcg IV for discomfort. Medications were provided and recorded by Radiology nurses. FLUOROSCOPY DOSE AND TYPE: Fluoroscopy time-15.7 minutes. Radiation Exposure Index: DAP cGy*m2, 49622 DESCRIPTION OF PROCEDURE: Arteries interrogated: Celiac, GDA, [...] for a 0.035 inch wire and 5 [place] introducer sheath. Randal 5 [place] x 65 cm catheter was introduced and the celiac artery catheterize; hand celiac angiography was performed. A 0.035 inch glidewire was manipulated into the distal hepatic arteries, catheter exchanged for a 5 [place] Cobra glide catheter which was manipulated into the origin GDA. Digital angiography was then performed. [place] delivery microcatheter 45 degree tip was then [...] removed. Subsequent hand injection via the 5 [place] catheter the proper hepatic was performed. The guide catheter was removed, and the Randal catheter reinserted. Celiac and SMA digital angiography were then performed. The Randal catheter was removed. Hand digital angiography right iliofemoral vessels was performed at the groin. The right groin was re-prepped, and a 5 [place] Vascade closure device was deployed right TAKE DOWN INSPECTOR. The patient tolerated procedure well and there [...] or site of bleeding identified. Normal right TAKE DOWN INSPECTOR entry site pre closure device placement. [facility] 11-20-2023 Progress note Note Date/Time November 20, 2023 11:40am [facility] [address] [place] [address] Hospitalist Progress Note Signed Patient: Jenny Ewing MR#: [id number] : 1950 Acct:[id number] Age/Sex: 73 / F Adm Date: 4 Loc: Room: [address] [place] [address] Type: ADM IN Attending Dr: Jaspal Whalen [...] \ Documented By: Jaspal Whalen MD 11/20/23 1135 Signed By: <Electronically signed by aJspal Whalen MD> 11/20/23 1140 [facility] Work Phone: 1(735) 705-636504-25-2024 Progress note Author Frantz Nieves [facility] November 19, 2023 1:51pm Note Date/Time November 19, 2023 11: 13am [facility] [address] [place] [address] Hospitalist Progress Note Signed Patient: Jenny Ewing MR#: [id number] : 1950 Acct:[id number] Age/Sex: 73 / F Adm Date: 4 Loc: Room: [address] [place] [address] Type: ADM IN Attending Dr: Frantz Nieves [...] to 7.1 ? 2 units PRBC at [place], prior to transfer here, received another 2 [...] signed by DO DENISE Mckeon> 11/19/23 1113 [facility] Work Phone: 1(217) 401-446404-25-2024 Progress note Author Seun Freitas [facility] November 19, 2023 9:54am Note Date/Time November 19, 2023 9:5 4am [facility] [address] [place] [address] Gastroenterology PN Signed Patient: Jenny Ewing MR#: [id number] : 1950 Acct:[id number] Age/Sex: 73 / F Adm Date: 4 Loc: Room: [address] [place] [address] Type: ADM IN Attending Dr: Frantz Nieves [...] signed by Seun Freitas MD> 11/19/23 0954 [facility] Work Phone: 1(447) 444-764304-24-2024 [facility] Progress note Author Frantz Nieves [facility] November 18, 2023 10:04am Note Date/Time November 18, 2023 10: 04am [facility] [address] [place] [address] Hospitalist Progress Note Signed Patient: Jenny Ewing MR#: [id number] : 1950 Acct:[id number] Age/Sex: 73 / F Adm Date: 4 Loc: Room: [address] [place] [address] Type: ADM IN Attending Dr: Frantz Nieves [...] signed by Frantz Nieves, DO> 11/18/23 1004 [facility] Work Phone: 1(944) 802-555904-24-2024 Consult note Author Seun [facility] November 18, 2023 9:03am Note Date/Time November 17, 2023 4:1 6pm [facility] [address] [place] [address] Gastroenterology Consult Note Signed Patient: Jenny Ewing MR#: [id number] : 1950 Acct:[id number] Age/Sex: 73 / F Adm Date: 4 Loc: Room: [address] [place] [address] Type: ADM IN Attending Dr: Frantz Nieves [...] negative unless noted below or in HPI [facility] Medical History (Updated 11/18/23 @ 09:03 by [...] use + Cigarette smoking Hb: 4.8 at [place] Patient is hemodynamically stable -Trend CBC and transfuse as needed, ensure two large bore IVs at least. -Protonix 40 mg twice daily -Avoid NSAIDs -Goal Hgb >7.0 -Plan for EGD today. Please keep the patient n.p.o. after midnight Documented By: Seun Freitas MD 11/17/23 1612 Signed By: <Electronically signed by Seun Freitas MD> 11/18/23 0903 [facility] Work Phone: 1(439) 273-226204-23-2024 History and physical note Author Frantz Nieves [facility] November 17, 2023 6:33pm Note Date/Time November 17, 2023 3:5 9pm [facility] [address] [place] [address] Hospitalist H&P Signed Patient: Jenny Ewing MR#: [id number] : 1950 Acct:[id number] Age/Sex: 73 / F Adm Date: 4 Loc: 3T Room: [address] [place] [address] Type: ADM IN Attending Dr: Frantz Nieves DO Copies to: Dale Mckeon DO, RES MD Frantz Wyman, ~ HPI DATE OF EXAMINATION: 11/17/23 CHIEF COMPLAINT: Anemia HISTORY OF PRESENT ILLNESS: 73-year-old female transferred from [facility] for severe anemia. 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 Thismorning the patient had acute episode of weakness in her lower extremities afterwhich she fell and hit the back of her neck and head without LOC. She was brought to the [place] ED by EMS. CT head, brain, and [...] mg Protonix. She was then transferred to [facility] for further workup of anemia and [...] x3, normal speech, appropriate mood and affect [facility] Medical History (Updated 11/17/23 @ 16:10 by [...] (6) Weakness: Plan 73-year-old female transferred from [facility] for severe anemia, weakness, and GI bleed. [...] GI bleed. Received 2 units PRBC at [place], 500 mL NS, ?Recheck H&H ?Continue Protonix [...] signed by DO DENISE Mckeon> 11/17/[address] [facility] Work Phone: 1(127) 286-673501-30-2024 History of Present illness Narrative* Catracho Sheriff [...] 301 mOsmol/kg Final Comment: Performed at: - [address] [id number] Lighting Engineering Technician: Arleen Wong MD, Phone: [phone] OSMOLALITY, URINE 08/11/2023 552 . mOsmol/kg Final Comment: 24 hr : 300 - 900 Random: 50 - 1400 After 12hr fluid restriction: >850 Performed at: [facility] [address] [id number] Lighting Engineering Technician: Arleen Wong MD, Phone: [phone] [employer]inis[employer] Result Encounter on 08/04/2023 Component Date [...] 0.55 - 1.02 mg/dL Final [facility] EGFR-AF [place]ESE 08/04/2023 >60 >=60 Final [facility] EGFR-NON AF [place]ESE 08/04/2023 >60 >=60 Final BUN CREATININE RATIO [...] this encounterNOMS HealthcareDischarge summary Author Jaspal Whalen [facility] November 21, 2023 1:44pm Note Date/Time November 21, 2023 1:4 4pm [facility] [address] [place] [address] Discharge Summary Signed Patient: Jenny Ewing MR#: [id number] : 1950 Acct:[id number] Age/Sex: 73 / F Adm Date: 4 Loc: Room: [address] [place] [address]: Jaspal Whalen MD Copies to: [...] female, who [facility] where she presented with weakness in the [...] signed by Jaspal Whalen MD> 11/21/[address] [facility] Work Phone: Evaluation note* Diagnosis Chronic pain syndrome- Primary Chronic respiratory failure with hypoxia (CMS/HCC) Dependence on supplemental oxygen Stasis dermatitis of both legs Arthritis of both knees documented in this encounter [facility] HealthcareEvaluation note* Diagnosis Onset Date Resolution Status Acute anemia acute Duodenal ulcer acute Excessive use of nonsteroida l anti-inflammatory drugs (NSAIDs) acute GI bleed acute Macrocytosis acute Tobacco abuse acute Weakness acute Weight loss, unintentional a cute [facility] Work Phone: Evaluation note* Diagnosis GI [...] use disorder PAF (paroxysmal atrial fibrillation) ([facility]) Atrial fibrillation documented in this encounter [facility]* Diagnosis Duodenal ulcer Duodenal ulcer, unspecified as acute or chronic, without hemorrhage, perforation, or obstruction documented in this encounter [facility]* Diagnosis Venous stasis ulcer of other part of lower leg limited to breakdown of skin without varicose veins, unspecified laterality ([facility]/HCC)- Primary Cellulitis of lower extremity, unspecified laterality Venous stasis dermatitis of both lower extremities documented in this encounter [facility] HealthcareEvaluation note* Diagnosis Stasis dermatitis of both legs- Primary Non-pressure chronic ulcer of right lower leg, limited to breakdown of skin ([facility]/HCC) Postsurgical hypothyroidism ([facility]) Postsurgical hypothyroidism Acute anemia Hypokalemia Hypopotassemia Chronic pain syndrome documented in this encounter [facility] HealthcareEvaluation note* Diagnosis Cellulitis of lower [...] Documents on File Type Date Recorded Patient A P Supervisor Expl anation ACP-Advance Directive 12/04/2023 1:41 PM Latest Code Status on File Code Status Date Activated Date Inactivated Comments Full Code 11/25/2023 4:23 AM 12/03/2023 8:11 PM Healthcare Agents on File Name Relationship Healthcare Agent Relationshi p Communication Pearl Julien Child Primary Decision Maker Radhaavel Ventura Friend Secondary Decision Maker Documents on File Type Date Recorded Patient A P Supervisor Expl anation ACP-Advance Directive 12/04/2023 1:41 PM Date Activated Date Inactivated Comments 11/25/2023 4:23 AM 12/03/2023 8:11 PM Date Activated Date Inactivated Comments 11/25/2023 12:02 AM 11/25/2023 4:07 AM Healthcare Agents on File Name Relationship Healthcare Agent Relationshi p Communication Paerl Julien Child Primary Decision Maker Radhaavel Ventura [...] CREATED AUTHOR AUTHOR'S ORGANIZ ATION 11/24/2023 [facility] DATE CREATED AUTHOR AUTHOR'S ORGANIZ ATION 12/11/2023 [facility] DATE CREATED AUTHOR AUTHOR'S ORGANIZ ATION 08/04/2024 [facility] DATE CREATED AUTHOR AUTHOR'S ORGANIZ ATION 10/06/2024 [facility] d[facility] Specialists EPIC Reason for Visit (unrecogniz ed section and content) Reason Comments Recurrent Skin Infections Specialty Diagnoses / Procedures Referred By Contac t Referred To Contact Diagnoses GI bleed GI bleed [address] [place] [address] [facility] [address] [place] [address] Referral ID Status Reason Start Date Expiration Date Visits Re quested Visits Authorized [id number] 1 1 Specialty Diagnoses / Procedures Referred By Contac t Referred To Contact Diagnoses Duodenal ulcer Duodenal ulcer [K26.9] Procedures [place] EGD TRANSORAL BIOPSY SINGLE/MULTIPLE ESOPHAGOGASTRODUODENOSCOPY BIOPSY Nicky Ugarte MD [address] [place] [address] [facility] [address] [place] [address] Referral ID Status Reason Start Date Expiration Date Visits Re quested Visits Authorized [id number] 1 1 Reason Comments Wound Check Reason Comments wound check Reason Comments Wound Infection Reason Comments Med Refill Reason Comments Anxiety Pain Care Teams (unrecognized sec tion and content) Institutional Aide Relationship Specialty Start Date End Date Catracho Sheriff MD [address] [place] [address] PCP - [employer] 07/27/22 Catracho Sheriff MD [address] [facility] [place] [address] PCP - General Family Medicine 01/05/23 Team [...] Other Provider Active Start: November 17, 2023 Institutional Aide Relationship Specialty Start Date End Date Catracho Sheriff MD [address] [place] [address] PCP - General 01/29/24 Institutional Aide Relationship Specialty Start Date End Date Catracho Sheriff MD [address] [place] [address] PCP - General 01/29/24 Institutional Aide Relationship Specialty Start Date End Date Catracho Sheriff MD [address] [place] [address] PCP - [employer] 07/27/22 Catracho Sheriff MD [address] [place] [address] PCP - General Family Medicine 01/05/23 Payal Gaona DO [address] [place] [address] Referring Physician Neurology 09/03/23 Aimee Truong, RN Registered Nurse Family Medicine 12/23/23 Institutional Aide Relationship Specialty Start Date End Date Catracho Sheriff MD [address] [facility] [place] [address] (Fax) PCP - [employer] 07/27/22 Catracho Sheriff MD [address] [place] [address] PCP - General Family Medicine 01/05/23 Payal Gaona DO [address] [place] [address] Referring Physician Neurology 09/03/23 Aimee Truong, RN Registered Nurse Family Medicine 12/23/23 Institutional Aide Relationship Specialty Start Date End Date Catracho Sheriff MD [address] [facility] [place] [address] (Fax) PCP - [employer] 07/27/22 Catracho Sheriff MD [address] [place] [address] PCP - General Family Medicine 01/05/23 Payal Gaona DO [address] [place] [address] Referring Physician Neurology 09/03/23 Aimee Truong RN Registered Nurse Family Medicine 12/23/23 Institutional Aide Relationship Specialty Start Date End Date Catracho Sheriff MD [address] [place] [address] (Fax) PCP - [employer] 07/27/22 Catracho Sheriff MD [address] [place] [address] PCP - General Family Medicine 01/05/23 Payal Gaona DO [address] [place] [address] Referring Physician Neurology 09/03/23 Aimee Truong RN Registered Nurse Family Medicine 12/23/23 Institutional Aide Relationship Specialty Start Date End Date Catracho Sheriff MD [address] [facility] [place] [address] (Fax) PCP - [employer] 07/27/22 Catracho Sheriff MD [address] [place] [address] PCP - General Family Medicine 01/05/23 Payal Gaona DO [address] [place] [address] Referring Physician Neurology 09/03/23 Aimee Truong RN Registered Nurse Family Medicine 12/23/23 Institutional Aide Relationship Specialty Start Date End Date Catracho Sheriff MD [address] [facility] [place] [address] (Fax) PCP - [employer] 07/27/22 Catracho Sheriff MD [address] [place] [address] PCP - General Family Medicine 01/05/23 Payal Gaona DO [address] [place] [address] Referring Physician Neurology 09/03/23 Aimee Truong, RN Registered Nurse Family Medicine 12/23/23 Institutional Aide Relationship Specialty Start Date End Date Catracho Sheriff MD [address] [place] [address] (Fax) PCP - [employer] 07/27/22 Catracho Sheriff MD [address] [place] [address] (Fax) PCP - General Family Medicine 01/05/23 Payal Gaona DO [address] [place] [address] Referring Physician Neurology 09/03/23 Aimee Truong, RN Registered Nurse Family Medicine 12/23/23 Institutional Aide Relationship Specialty Start Date End Date Catracho Sheriff MD [address] [place] [address] (Fax) PCP - [employer] 07/27/22 Catracho Sheriff MD [address] [place] [address] (Fax) PCP - General Family Medicine 01/05/23 Payal Gaona DO [address] [place] [address] Referring Physician Neurology 09/03/23 Aimee Truong, IGOR Registered Nurse Family Medicine 12/23/23 Institutional Aide Relationship Specialty Start Date End Date Catracho Sheriff MD [address] [place] [address] (Fax) PCP - [employer] 07/27/22 Catracho Sheriff MD [address] [place] [address] (Fax) PCP - General Family Medicine 01/05/23 Payal Gaona DO [address] [place] [address] Referring Physician Neurology 09/03/23 Aimee Truong RN Registered Nurse Family Medicine 12/23/23 Institutional Aide Relationship Specialty Start Date End Date Catracho Sheriff MD [address] [place] [address] (Fax) PCP - [employer] 07/27/22 Catracho Sheriff MD [address] [place] [address] (Fax) PCP - General Family Medicine 01/05/23 Payal Gaona DO [address] [place] [address] Referring Physician Neurology 09/03/23 Aimee Truong RN Registered Nurse Family Medicine 12/23/23 Institutional Aide Relationship Specialty Start Date End Date Catracho Sheriff MD [address] [place] [address] (Fax) PCP - [employer] 07/27/22 Catracho Sheriff MD [address] [place] [place] [address] PCP - General Family Medicine 01/05/23 Payal Gaona DO [address] [place] [address] Referring Physician Neurology 09/03/23 Aimee Truong, RN Registered Nurse Family Medicine 12/23/23 Institutional Aide Relationship Specialty Start Date End Date Catracho Sheriff MD [address] [place] [address] (Fax) PCP - [employer] 07/27/22 Catracho Sheriff MD [address] [place] [address] PCP - General Family Medicine 01/05/23 Payal Gaona DO [address] [place] [address] Referring Physician Neurology 09/03/23 Aimee Truong, IGOR Registered Nurse Family Medicine 12/23/23 Institutional Aide Relationship Specialty Start Date End Date Catracho Sheriff MD [address] [place] [address] (Fax) PCP - [employer] 07/27/22 Catracho Sheriff MD [address] [place] [address] (Fax) PCP - General Family Medicine 01/05/23 Payal Gaona DO [address] [place] [id number] Referring Physician Neurology 09/03/23 Aimee Truong, RN Registered Nurse Family Medicine 12/23/23 Institutional Aide Relationship Specialty Start Date End Date Catracho Sheriff MD (Fax) PCP - General 01/29/24 Institutional Aide Relationship Specialty Start Date End Date Catracho Sheriff MD [address] [place] [address] (Fax) PCP - [employer] 07/27/22 Catracho Sheriff MD [address] [place] [address] (Fax) PCP - General Family Medicine 01/05/23 Payal Gaona DO [address] [place] [place] [id number] Referring Physician Neurology 09/03/23 Aimee Truong, RN Registered Nurse Family Medicine 12/23/23 Institutional Aide Relationship Specialty Start Date End Date Catracho Sheriff MD [address] [facility] [place] [address] (Fax) PCP - General 01/29/24 Institutional Aide Relationship Specialty Start Date End Date Catracho Sheriff MD [address] [place] [address] (Fax) PCP - [employer] 07/27/22 Catracho Sheriff MD [address] [place] [address] (Fax) PCP - General Family Medicine 01/05/23 Payal Gaona DO [address] [place] [address] Referring Physician Neurology 09/03/23 Aimee Truong RN Registered Nurse Family Medicine 12/23/23 Institutional Aide Relationship Specialty Start Date End Date Catracho Sheriff MD [address] [place] [address] (Fax) PCP - [facility] 07/27/22 Catracho Sheriff MD [address] [facility] [address] [place] [address] (Fax) PCP - General Family Medicine 01/05/23 Payal Gaona DO [address] [place] [address] Referring Physician Neurology 09/03/23 Aimee Truong, IGOR [...] on Thu11/25/23 at 1500, Until Discontinued 0721 ([facility] Hold - Provider: Annika Autohold - Reason: Unreviewed Transfer Orders)0959 ([facility] Unhold - Provider: Riri Salomon [...] Autohold)0959 ([facility] Unhold - Provider: Riri Salomon RN)2047 (Not Given - Provider: Dinorah Mcfadden [...] if oral route cannot be used. 720 ([facility] Hold - Provider: Annika Autohold - Reason: Unreviewed Transfer Orders)958 ([facility] Unhold - Provider: Riri Salomon RN) acetaminophen (TYLENOL) tablet 650 mg(Linked Group 1) 650 mg, Oral, EVERY 6 HOURS PRN, Starting on Thu11/25/23 at 0421, Until Discontinued, Pain Mild (1-3), Fever, For temp greater than 100.4 F (38 C), Maximum dose of acetaminophen is 4000 mg from all sources in 24 hours. 720 ([facility] Hold - Provider: Annika Autohold - Reason: Unreviewed Transfer Orders)958 ([facility] Unhold - Provider: Riri Salomon RN) albuterol sulfate HFA (PROVENTIL;VENTOLIN;PROAIR ) 108 (90 Base) MCG/ACT inhaler 2 puff 2 puff, Inhalation, EVERY 6 HOURS PRN, Starting on Thu11/25/23 at 0836, Until Discontinued, Wheezing, Initiate RT Bronchodilator Protocol: Yes - Inpatient Protocol 720 ([facility] Hold - Provider: Annika Autohold - Reason: Unreviewed Transfer Orders)958 ([facility] Unhold - Provider: Riri Salomon [...] at 1031, Until Discontinued, Dry Eyes 0721 ([facility] Hold - Provider: Annika Autohold - Reason: Unreviewed Transfer Orders)0959 ([facility] Unhold - Provider: Riri Salomon, [...] Discontinued, Diarrhea, After each loose stool. 0721 ([facility] Hold - Provider: Annika Autohold - Reason: Unreviewed Transfer Orders)0959 ([facility] Unhold - Provider: Riri Salomon RN) LORazepam (ATIVAN) injection 0.5 mg 0.5 mg, IntraVENous, EVERY 4 HOURS PRN, Starting on Thu11/29/23 at 1208, Until Discontinued, Anxiety, Immediately prior to intravenous use, lorazepam Injection must be diluted with at least an equal volume of compatible solution (NS or D5W). 0721 ([facility] Hold - Provider: Annika Autohold - Reason: Unreviewed Transfer Orders)0959 ([facility] Unhold - Provider: Riri Salomon [...] for use in Patients with CrCl<30ml/min 07 ([facility] Hold - Provider: [facility] Autohold - Reason: Unreviewed Transfer Orders)0959 ([facility] Unhold - Provider: Riri Salomon, IGOR) melatonin tablet 3 mg 3 mg, Oral, NIGHTLY PRN, Starting on Thu11/26/23 at 0440, Until Discontinued, Sleep 0721 ([facility] Hold - Provider: [facility] Autohold - Reason: Unreviewed Transfer Orders)0959 ([facility] Unhold - Provider: Riri Salomon, IGOR) 2047 (Given - Provider: Jorge Mcfarland RN) midodrine (PROAMATINE) tablet 10 mg 10 mg, Oral, 3 TIMES DAILY PRN, Starting on Thu11/26/23 at 0434, Until Discontinued, sbp<100, Do not give after 1800 or within 4 hrs of bedtime. 07 ([facility] Hold - Provider: [facility] Autohold - Reason: Unreviewed Transfer Orders)59 ([facility] Unhold - Provider: Riri Salomon, [...] if oral route cannot be used. 0721 ([facility] Hold - Provider: [facility] Autohold - Reason: Unreviewed Transfer Orders)0959 ([facility] Unhold - Provider: Riri Salomon RN) ondansetron (ZOFRAN-ODT) disintegrating tablet 4 mg(Linked Group 3) 4 mg, Oral, EVERY 8 HOURS PRN, Starting on Thu11/25/23 at 0421, Until Discontinued, Nausea, Vomiting 0721 ([facility] Hold - Provider: [facility] Autohold - Reason: Unreviewed Transfer Orders)0959 ([facility] Unhold - Provider: Riri Salomon [...] dilute if GI adverse effects occur. 0721 ([facility] Hold - Provider: [facility] Autohold - Reason: Unreviewed Transfer Orders)0959 ([facility] Unhold - Provider: Riri Salomon [...] half and each half swallowed separately. 0721 ([facility] Hold - Provider: Annika Autohold - Reason: Unreviewed Transfer Orders)0959 ([facility] Unhold - Provider: Riri Salomon [...] with CrCl less than 30 mL/min. 0721 ([facility] Hold - Provider: Annika Autohold - Reason: Unreviewed Transfer Orders)0959 ([facility] Unhold - Provider: Riri Salomon RN) 0900 (See Alternative - Provider: Nicolasa Pacheco RN) sodium chloride (OCEAN) 0.65 % nasal spray 1 spray 1 spray, Each Nostril, PRN, Starting on Thu11/25/23 at 1352, Until Discontinued, Congestion 0721 ([facility] Hold - Provider: Annika Autohold - Reason: Unreviewed Transfer Orders)0959 ([facility] Unhold - Provider: Riri Salomon [...] BE BASED ON THE PRIMARY CLINICAL RECORDS. [facility]. provides no warranty or guarantee of the accuracy or completeness of information in this document.
[2025-01-04 05:28] LABS: Hematocrit 46.9 % (36.0-48.0); Hemoglobin 15.7 g/dL (12.0-16.0); Mean Corpuscular HGB Conc 33.5 g/dL (29.9-35.2); Mean Corpuscular Hemoglobin 31.7 pg (26.7-34.0); Mean Corpuscular Volume 94.6 fL (81.0-99.0); Mean Platelet Volume 11.9 fL (9.5-13.5); Platelet Count 232 10^3/uL (150-450); Red Blood Count 4.96 10^6/uL (4.20-5.40); Red Cell Distribution Width 14.6 % (11.0-15.0); White Blood Count 8.1 10^3/uL (4.0-11.0)
[2025-01-04] MEDS: 0.9 % SODIUM CHLORIDE 250 ML 10 ML IV (05:40)
[2025-01-04] MEDS: ACETAMINOPHEN 1,000 MG/100 ML PREMIX 400 MG IV (05:40)
[2025-01-04 05:45] LABS: Anion Gap 13.7; BUN Creatinine Ratio 23.8; Calcium 9.2 mg/dL (8.5-10.1); Carbon Dioxide 26.3 mmol/L (21.0-32.0); Chloride 96 mmol/L (98-107); Estimated GFR (African America >60 (>=60 mL/min/1.73m^2); Estimated GFR (Non-African Ame >60 (>=60 mL/min/1.73m^2); Glucose 105 mg/dL (74-106); Sodium 131 mmol/L (136-145)
--- NOTE | 2025-01-04 06:47 | PC.NURSE ---
Attempted new iv site times 2 without success. One to left hand with 22 guage catheter, and one to right arm with 22 guage catheter.
--- NOTE | 2025-01-04 08:52 | PM.HP ---
HPI H&P: HPI History of Present Illness Chief complaint: fall,DEMENTIA, ELDERLY DEBILITY Narrative: Patient is a 74 y.o white female with past medical history of HTN, smoker, COPD with chronic respiratory failure requiring home oxygen, hypothyroidism, GERD, anxiety, and chronic pain of the neck and back who presented to the ER last night after a fall in her own home. Per ER report Patient reports she was going down in her house when she lost balance and fell. She reports she fell onto her back. She did hit her head. She did not lose consciousness per her report. She denies any numbness, weakness, tingling. No vision changes. She has a mild posterior headache. She denies any neck or back pain that is new. She denies any extremity injury. She denies blood thinner use. She reports that she had some mild head pain as well as some nausea tonight prompting her ED visit. This morning patient reports she was out of it for awhile after fall. She does not have stairs in her apartment and was able to yell out to her neighbor who called EMS. She says that she has been wobbly for awhile. Her daughter lives in [place] and checks in on her frequently and her son lives across the street but she doesn't see him much. She is alert to person, place and time. She knows that Dr. Mills is her doctor. She has chronic neck pain, but seems worse today after the fall. She denies any current headache, visual changes or nausea/vomiting. No weakness in hands or arms. Some weakness in legs but she reports this has been ongoing. ER findings: WBC's 8.1, hb 15.7, INR 1.08, Cr 0.63, Na 131 and UA negative; CT head: Negative; CT cervical spine: Negative; EKG without evidence of ischemia or arrhythmia. Normal QTc. Opioid HPI Opioid Management Most Recent Pain and Opioid Data: Last Pain Scale 7 Today, 09:00 Last Pain Assessment Today, 03:00 Last MAR Pain Assessment Today, 05:40 Last ORT Total Score 0 Today, 02:57 Last ORT Risk Category Low Risk Today, 02:57 Review of Systems ROS Narrative ROS: a complete review of systems were reviewed with patient and are positive as below or listed in History of Chief Complaint. General: no fever, chills, night sweats Head: headache, trauma, and nausea/ vomiting Skin: no reported rashes, itching or sores Eyes: no blurriness of vision Ears: no reported hearing loss, vertigo, earache, or tinnitus Throat: no sore throat, hoarseness, swelling of neck, or tongue pain Heart: no chest pain Lungs: no shortness of breath or cough GI: no diarrhea or vomiting/nausea Urinary: no urinary urgency, frequency or pain Neuro: no numbness or tingling HEM: no bleeding issues or bruising ENDO: thyroid problems Psych: anxiety and depression PFSH [facility] Medical History (Updated 01/04/25 @ 09:07 by Maggie Cortes DO) Anxiety ?F41.9 - Anxiety disorder, unspecified (ICD-10) GERD (gastroesophageal reflux disease) ?K21.9 - Gastro-esophageal reflux disease without esophagitis (ICD-10) Hypertension ?I10 - Essential (primary) hypertension (ICD-10) Chronic respiratory failure with hypoxia, on home oxygen therapy ?J96.11 - Chronic respiratory failure with hypoxia (ICD-10) ?Z99.81 - Dependence on supplemental oxygen (ICD-10) Chronic kidney disease, stage 2 (mild) ?N18.2 - Chronic kidney disease, stage 2 (mild) (ICD-10) Falls ?R29.6 - Repeated falls (ICD-10) Hypothyroid ?E03.9 - Hypothyroidism, unspecified (ICD-10) ESS (euthyroid sick syndrome) ?E07.81 - Sick-euthyroid syndrome (ICD-10) COPD (chronic obstructive pulmonary disease) ?J44.9 - Chronic obstructive pulmonary disease, unspecified (ICD-10) Ulcer Overweight ?E66.3 - Overweight (ICD-10) Surgical History Duodenal ulcer ?K26.9 - Duodenal ulcer, unspecified as acute or chronic, without hemorrhage or perforation (ICD-10) Social History Within the past year, how often did you have a drink containing alcohol: never Score interpretation: A score less than 3 is consistent with normal alcohol consumption. Smoking status: Current every day smoker Non-prescribed substance use: denies use Previous occupational history: retired Highest level of school completed/degree received: high school graduate Are you now , , , , never or living with a partner: don't know In a typical week, how many times do you talk on the telephone with family, friends, or neighbors: 3 or more times per week How often do you get together with friends or relatives: 3 or more times per week Little interest or pleasure in doing things: not at all Feeling down, depressed, or hopeless: not at all Feel stressed/tense/nervous/anxious/difficulty sleeping: not at all Do you think of yourself as: straight/heterosexual Gender Identity: female Meds Home Medications and Allergies Home Medications ?Medication ?Instructions ?Recorded ?Confirmed ?Type baclofen 20 mg tablet 20 mg PO QAM 11/17/23 01/04/25 History buspirone 15 mg tablet 15 mg PO BID@0800,1200 11/17/23 01/04/25 History duloxetine 20 mg capsule,delayed 40 mg PO .qd 01/03/25 01/04/25 History release famotidine 20 mg tablet 20 mg PO BID 01/03/25 01/04/25 History levothyroxine 175 mcg tablet 175 mcg PO .acb 01/03/25 01/04/25 History mirtazapine 45 mg tablet 45 mg PO .qhs 01/03/25 01/04/25 History spironolactone 100 mg tablet 100 mg PO .qd 01/03/25 01/04/25 History tramadol 50 mg tablet 100 mg PO Q8H 01/03/25 01/04/25 History baclofen 10 mg tablet 10 mg PO DAILY@1200 01/04/25 01/04/25 History baclofen 20 mg tablet 40 mg PO .qhs 01/04/25 01/04/25 History buspirone 15 mg tablet 30 mg PO .qhs 01/04/25 01/04/25 History gabapentin 100 mg capsule mg 01/04/25 History pantoprazole 40 mg tablet,delayed 40 mg PO .bidac 01/04/25 01/04/25 History release Allergies Allergy/AdvReac Type Severity Reaction Status Date / Time Penicillins Allergy Severe Rash Verified 01/04/25 04:58 cephalexin Allergy Intermediate Rash Verified 01/04/25 04:58 varenicline Allergy Intermediate Agitated Verified 01/04/25 04:58 morphine Allergy Mild Nightmare Verified 01/04/25 04:58 moxifloxacin (From Avelox) Allergy Hives Verified 01/04/25 04:58 buspirone AdvReac angry Verified 01/04/25 04:58 codeine AdvReac Nightmare Verified 01/04/25 04:58 trazadone Allergy Mild Irritable Uncoded 01/04/25 04:58 Exam Narrative Exam Narrative: General: Patient is alert, and oriented to person, place and time Skin: no visible rashes, or ulcers, She does have small golf ball sized contusion on the occipital scalp area, no abrasions noted. Head: atraumatic, acephalic Eyes: PERRLA, no nystagmus present, conjunctiva clear, no scleral icterus Ears: normal gross auditory acuity Nose: symmetric, no discharge, no maxillary or frontal sinus tenderness Mouth/Throat: no dentition Neck: no masses palpated, normal thyroid Heart: Normal rate and rhythm, no murmurs/rubs/gallops Lungs: no audible wheezes, crackles and normal breath sounds all lung talbot Abdomen: Normal audible bowel sounds, no distension, No palpable masses, no organomegaly, no rebound/guarding/ or rigidity Musculoskeletal: muscle atrophy noted, ROM is limited due to being in hospital chair, no swelling bilateral lower extremities, stasis dermatitis present both legs Neuro: CN II-X grossly intact Constitutional Vital Signs, click to edit/add: Last Vital Signs Temp 97.9 F 01/04/25 07:27 Pulse 71 01/04/25 07:53 Resp 18 01/04/25 07:27 BP 109/74 01/04/25 07:27 Pulse Ox 94 L 01/04/25 07:27 O2 Del Method Nasal Cannula 01/04/25 07:27 O2 Flow Rate 2 01/04/25 06:02 Results Labs Labs: Short CBC 01/03/25 01/04/25 Range/Units 21:59 05:06 WBC 9.0 8.1 (4.0-11.0) 10^3/uL Hgb 15.2 15.7 (12.0-16.0) g/dL Hct 45.6 46.9 (36.0-48.0) % Plt Count 177 232 (150-450) 10^3/uL BMP 01/03/25 01/04/25 21:59 05:06 Sodium 132 L 131 L Potassium 4.7 5.0 Chloride 95 L 96 L Carbon Dioxide 27.2 26.3 BUN 18.0 15.0 Creatinine 0.88 0.63 Glucose 121 H 105 Calcium 9.5 9.2 Liver Function 01/03/25 Range/Units 21:59 Total Bilirubin 0.3 (0.2-1.0) mg/dL AST 20 (15-37) U/L ALT 22 (14-59) U/L Alkaline Phosphatase 110 (46-116) U/L Albumin 3.5 (3.4-5.0) g/dL Urine 01/04/25 Range/Units 00:20 Urine Color Yellow (YELLOW) Urine Clarity Clear (CLEAR) Urine pH 6.0 (5.0-9.0) Ur Specific Hewitt 1.015 (1.005-1.025) Urine Protein Negative (NEG/TRACE) mg/dL Urine Glucose (UA) Negative (NEGATIVE) mg/dL Assessment and Plan Assessment and Plan (1) Closed head injury: Assessment and Plan: CT of the head and neck are negative, Continue home meds of Tramadol and baclofen for pain control; Will recheck CT brain today Qualifiers: Encounter type: initial encounter Qualified Code(s): S09.90XA - Unspecified injury of head, initial encounter (2) AMS (altered mental status): Assessment and Plan: possible mild concussion in the setting of head injury, labs and urine negative Qualifiers: Altered mental status type: disorientation Qualified Code(s): R41.0 - Disorientation, unspecified (3) Accidental fall: Assessment and Plan: Will get PT/OT evaluations and suggestions on treatment plan, patient lives home alone and high fall risk Qualifiers: Encounter type: initial encounter Qualified Code(s): W19.XXXA - Unspecified fall, initial encounter (4) Hypothyroid: Assessment and Plan: continue levothyroxine Qualifiers: Hypothyroidism type: acquired Qualified Code(s): E03.9 - Hypothyroidism, unspecified (5) COPD (chronic obstructive pulmonary disease): Assessment and Plan: continue PRN inhalers if needed; patient still smokes Qualifiers: COPD type: unspecified COPD Qualified Code(s): J44.9 - Chronic obstructive pulmonary disease, unspecified (6) Chronic respiratory failure with hypoxia, on home oxygen therapy: Assessment and Plan: Has home oxygen but non-compliant per daughter so she can still smoke (7) Hypertension: Assessment and Plan: continue spironolactone Qualifiers: Hypertension type: primary hypertension Qualified Code(s): I10 - Essential (primary) hypertension (8) GERD (gastroesophageal reflux disease): Assessment and Plan: continue famotidine Qualifiers: Esophagitis presence: without esophagitis Qualified Code(s): K21.9 - Gastro-esophageal reflux disease without esophagitis (9) Anxiety: Assessment and Plan: continue BuSpar and Cymbalta Plan Patient is a full code Patient is observation status, repeat CT head today, pt/ot evaluations and possible need for skilled rehab placement
--- NOTE | 2025-01-04 09:59 | SWNOTE1 ---
SW spoke with nurse and doctor and pt has confusion. SW to call daughter in regards to home oxygen and discharge planning. SW called and left message for daughter, Pearl.
--- NOTE | 2025-01-04 10:24 | CT_ITS ---
The [address] [address] Patient Name: JOE PEACOCK MRN: [id number] date: 1950 Sex: F Assigned Patient Location: [place] Current Patient Location: [place] Accession/Order Number: [id number] Exam Date: 01/04/2025 10:57 Report Date: 01/04/2025 11:05 At the request of: CRIS SHARMA DO Procedure: CT stroke head/brain wo con CT BRAIN WITHOUT CONTRAST - stroke alert: CLINICAL HISTORY: Fall last night with head trauma. Confusion. COMPARISON: 01/03/2025 and 13/12/2024 TECHNIQUE: Contiguous axial unenhanced images were obtained through the brain. This CT exam was performed using one or more following dose reduction techniques: Automated exposure control, adjustment of the mA and/or kV according to patient size, or use of iterative reconstruction technique. FINDINGS: There is generalized atrophy. The ventricles are normal in size and position. Chronic microvascular changes are again noted. There are no additional areas of abnormal attenuation. There is no hemorrhage, mass effect or extra-axial collections. Near complete opacification of the imaged left maxillary sinus is again visualized. The remaining imaged paranasal sinuses and mastoid air cells are clear. CT/CT stroke head/brain wo con IMPRESSION: ATROPHY AND CHRONIC MICROVASCULAR CHANGES. MAXILLARY SINUSITIS. NO DEFINITE ACUTE INTRACRANIAL ABNORMALITY OR SIGNIFICANT CHANGE. FOLLOW-UP IS RECOMMENDED, SYMPTOMS WARRANT. Impression dictated by: Chelita Acevedo M.D. 01/04/2025 11:05 AM Dictation Location: [place] [address] Electronically authenticated by: [id number] Y Date: 01/04/2025 11:05
--- NOTE | 2025-01-04 10:49 | CM.NOTE ---
Rounds made with Dr. Cortes, no discharge today. SW will discuss with outpatient receptionist rehab at discharge. Dr. Cortes discussed with pt about repeat CT scan today of the head. Pt c/o neck pain and slight H/A.
--- NOTE | 2025-01-04 11:54 | SWNOTE1 ---
HOLDEN called daughter again and she did answer. HOLDEN explained to daughter that rehab is being recommended at this time. Pt does live at home by herself. Daughter stated that pt has 2 other children, but they really do not help much. She stated she is the only one that really checks on her anymore. Pt's daughter stated she was at the [facility] last year and did well. She stated Sherry the SW did try to find her a facility that accepts Medicaid for assisted living, but pt did not want to do that and went home after rehab. She voiced that pt is stubborn. Daughter does feel she will benefit from rehab at this point. Daughter stated she did apply for Medicaid, unsure if she qualified. HOLDEN to check with [facility]ers. Daughter does understand how pt's insurance works and that she is a precert. Daughter in agreement for rehab for pt. HOLDEN did ask about home oxygen? She stated she does have it at home, but does smoke and does not always wear it. She stated it was from [facility]. HOLDEN to check in to this. She stated pt also had home health coming in, but stopped answering phone calls as she felt they did not do anything. Pt's daughter stated she is POA, HOLDEN let her know that there is no documentation on file. HOLDEN to check with [facility] or PCP. At this time no further questions from daughter. HOLDEN to speak with pt.
--- NOTE | 2025-01-04 11:54 | SWNOTE1 ---
HOLDEN and I met with pt in room. SW asked the pt if she knew where she was, what day it was, and what year it is. Pt could answer these questions appropriately. Pt lives at home alone. Pt uses a cane. SW did discuss PT/OT recommendation for SNF. Pt is unsure right now, but she has been to rehab at the [facility] in the past. Pt would like to go with home health as a plan A and rehab for plan B. SW spoke to pt about home health options, she had [facility] in the past and would use them again. SW did tell pt she would be a precert so we are going to start the referral today in case she chooses SNF. Pt is agreeable to this plan. SW to send referral to the [facility].
[2025-01-04] MEDS: DULOXETINE HCL 20 MG CAPSULE.DR 40 MG PO (11:56)
[2025-01-04] MEDS: SPIRONOLACTONE 100 MG TABLET PO (11:57)
[2025-01-04] MEDS: FAMOTIDINE 20 MG TABLET PO ×2 (11:57→21:32)
[2025-01-04] MEDS: ACETAMINOPHEN 325 MG TABLET 650 MG PO (12:00)
--- NOTE | 2025-01-04 12:03 | SWNOTE1 ---
Medicare Outpatient Observation Notice reviewed and discussed with patient's daughter, Pearl. Pt's daughter verbalized understanding and SW signed the form that it was reviewed. Original placed in pt's room and copy placed in patient?s chart.
--- NOTE | 2025-01-04 12:14 | SWNOTE1 ---
Sent referral to the [facility].
--- NOTE | 2025-01-04 12:51 | SWNOTE1 ---
Called [facility] to see if pt uses them for home oxygen. They stated she was out of network and she should have oxygen through [facility].
--- NOTE | 2025-01-04 13:41 | SWNOTE1 ---
Spoke to Misty at the [facility], and they can accept the pt for rehab. Will send referral for precert.
[2025-01-04] MEDS: GABAPENTIN 100 MG CAPSULE PO ×2 (14:11→21:32)
[2025-01-04] MEDS: BUSPIRONE HCL 15 MG TABLET PO (14:13)
--- NOTE | 2025-01-04 14:15 | PC.NURSE ---
rn in room to give patient her afternoon pills. Patient asks multiple times what the pills were that were being given. RN explains to patient what the pills are. RN was giving buspar, gabapentin and tylenol. Patient asks what the two tylenol are. RN states they are tylenol. Then patient states but I take two buspar at home Patient unable to keep meds straight. Rn informed her that she takes two buspar at night. Then patient states she takes two tramadol 4 times a day. RN explained that the physician here only ordered the tramadol for every 8 hours. Patient starts questioning why that is because thats not how her dr. prescribes it. RN explained to patient that she could get the tramadol now but that she would not be able to get it again until 10pm. Patient still hung up on the fact that the tramadol is only ordered TID, even though she hasnt required any pain medicine until RN gave the tylenol and before taking the tylenol patient had already reported that her neck pain felt better . RN asked patient if she was going to take the pills in her hand. Patient goes what you have to stand their and watch me? I stated yes. Patient then drops the pills and loses the gabapentin. This nurse then tries to find the lost pill and patient states she would like another nurse because this nurse is too impatient . Another RN in room to get her to take her meds, patient tells that nurse that she didnt want the gabapentin, but told this RN that she didnt want the tylenol because it gives her an upset stomach.
--- NOTE | 2025-01-04 14:41 | SWNOTE1 ---
Odilia started to [facility].
--- NOTE | 2025-01-04 15:02 | SWNOTE1 ---
SW received call back from [facility] and pt does get oxygen from them. Her last prescription was 1-4 liters continuous prescribed by Dr. Mills in September of 2023. SW let doctor and nurse know.
[2025-01-04] MEDS: PANTOPRAZOLE SODIUM 40 MG TABLET.DR PO (15:37)
[2025-01-04] MEDS: TRAMADOL HCL 50 MG TABLET 100 MG PO (21:32)
[2025-01-04] MEDS: BUSPIRONE HCL 15 MG TABLET 30 MG PO (21:32)
[2025-01-04] MEDS: BACLOFEN 10 MG TABLET 40 MG PO (21:32)
[2025-01-04] MEDS: MIRTAZAPINE 15 MG TABLET 45 MG PO (21:32)
[2025-01-04] MEDS: SENNOSIDES 8.6 MG TABLET PO (21:32)
[2025-01-05] VITALS (11 sets, daily range): BP systolic 115–136; BP diastolic 61–75; PULSE 68–79; TEMP 36.7–36.9; O2SAT 88–94
[2025-01-05] MEDS: ACETAMINOPHEN 325 MG TABLET 650 MG PO (02:03)
[2025-01-05] MEDS: TRAMADOL HCL 50 MG TABLET 100 MG PO ×2 (05:34→13:19)
[2025-01-05] MEDS: LEVOTHYROXINE SODIUM 75 MCG TABLET PO (05:35)
[2025-01-05] MEDS: GABAPENTIN 100 MG CAPSULE PO ×2 (05:35→13:18)
[2025-01-05] MEDS: LEVOTHYROXINE SODIUM 100 MCG TABLET PO (05:35)
[2025-01-05 06:02] LABS: Basophils Absolute Auto 0.1 10^3/uL (0.0-0.1); Basophils Percent Auto 0.7 % (0.2-2.0); Eosinophils Absolute Auto 0.2 10^3/uL (0.0-0.7); Eosinophils Percent Auto 2.1 % (0.9-7.0); Hematocrit 43.9 % (36.0-48.0); Hemoglobin 14.5 g/dL (12.0-16.0); Immature Granulocytes Abs Auto 0.01 10^3/uL (0.00-0.03); Immature Granulocytes Pct Auto 0.1 % (0.0-0.5); Lymphocytes Absolute Auto 1.8 10^3/uL (1.2-3.8); Lymphocytes Percent Auto 25.3 % (20.5-60.0); Mean Corpuscular Hemoglobin 31.5 pg (26.7-34.0); Mean Corpuscular Volume 95.2 fL (81.0-99.0); Mean Platelet Volume 11.8 fL (9.5-13.5); Monocytes Absolute Auto 0.9 10^3/uL (0.3-0.8); Monocytes Percent Auto 12.8 % (1.7-12.0); Neutrophils Absolute Auto 4.2 10^3/uL (1.4-6.5); Platelet Count 176 10^3/uL (150-450); Red Blood Count 4.61 10^6/uL (4.20-5.40); Red Cell Distribution Width 14.7 % (11.0-15.0); White Blood Count 7.1 10^3/uL (4.0-11.0)
[2025-01-05 06:17] LABS: Anion Gap 8.6; BUN Creatinine Ratio 24.5; Calcium 8.6 mg/dL (8.5-10.1); Carbon Dioxide 33.5 mmol/L (21.0-32.0); Chloride 100 mmol/L (98-107); Estimated GFR (African America >60 (>=60 mL/min/1.73m^2); Estimated GFR (Non-African Ame >60 (>=60 mL/min/1.73m^2); Glucose 86 mg/dL (74-106); Potassium 4.1 mmol/L (3.5-5.1); Sodium 138 mmol/L (136-145)
--- NOTE | 2025-01-05 08:27 | P.PN_ITS ---
Exam Constitutional Vital Signs, click to edit/add: Last Vital Signs Temp 98.5 F 01/05/25 05:36 Pulse 72 01/05/25 05:53 Resp 18 01/05/25 05:36 BP 136/75 01/05/25 05:36 Pulse Ox 91 L 01/05/25 05:36 O2 Del Method Nasal Cannula 01/05/25 05:36 O2 Flow Rate 2 01/05/25 05:36 Progress Note: Objective Labs Labs: Short CBC 01/05/25 Range/Units 05:38 WBC 7.1 (4.0-11.0) 10^3/uL Hgb 14.5 (12.0-16.0) g/dL Hct 43.9 (36.0-48.0) % Plt Count 176 (150-450) 10^3/uL BMP 01/05/25 05:38 Sodium 138 Potassium 4.1 Chloride 100 Carbon Dioxide 33.5 H BUN 13.0 Creatinine 0.53 L Glucose 86 Calcium 8.6 Progress Note: A&P Assessment and Plan (1) Closed head injury: Qualifiers: Encounter type: initial encounter Qualified Code(s): S09.90XA - Unspecified injury of head, initial encounter (2) AMS (altered mental status): Qualifiers: Altered mental status type: disorientation Qualified Code(s): R41.0 - Disorientation, unspecified (3) Accidental fall: Qualifiers: Encounter type: initial encounter Qualified Code(s): W19.XXXA - Unspecified fall, initial encounter (4) Hypothyroid: Qualifiers: Hypothyroidism type: acquired Qualified Code(s): E03.9 - Hypothyroi dism, unspecified (5) COPD (chronic obstructive pulmonary disease): Qualifiers: COPD type: unspecified COPD Qualified Code(s): J44.9 - Chronic obstructive pulmonary disease, unspecified (6) Chronic respiratory failure with hypoxia, on home oxygen therapy: (7) Hypertension: Qualifiers: Hypertension type: primary hypertension Qualified Code(s): I10 - Essential (primary) hypertension (8) GERD (gastroesophageal reflux disease): Qualifiers: Esophagitis presence: without esophagitis Qualified Code(s): K21.9 - Gastro-esophageal reflux disease without esophagitis (9) Anxiety:
[2025-01-05] MEDS: PANTOPRAZOLE SODIUM 40 MG TABLET.DR PO ×2 (08:47→16:45)
[2025-01-05] MEDS: DULOXETINE HCL 20 MG CAPSULE.DR 40 MG PO (08:47)
[2025-01-05] MEDS: SPIRONOLACTONE 100 MG TABLET PO (08:47)
[2025-01-05] MEDS: BACLOFEN 10 MG TABLET 20 MG PO (08:48)
[2025-01-05] MEDS: FAMOTIDINE 20 MG TABLET PO (08:48)
[2025-01-05] MEDS: BUSPIRONE HCL 15 MG TABLET PO ×2 (08:48→11:49)
--- NOTE | 2025-01-05 09:41 | SWNOTE1 ---
SW received a message from case management that pt is likely to go home with home health today if she does well with PT. Case management did get a call from [employer] and they are requesting a peer to peer for snf approval, but at this time pt likely to go home with home health. We called [facility] health and they are able to accept the pt. I let them know she will likely dc today and we will fax over final dc summary and PT/OT notes.
--- NOTE | 2025-01-05 11:02 | P.DS_ITS ---
DS: Providers Provider Date of admission: 01/04/25 02:30 Primary care physician: ASHLEY SHERIFF Attending physician on admission: Maggie Cortes Consults: 01/04/25 09:00 Occupational Therapy Eval and Treat Routine Reason for consultation: fall Has provider been notified: No Physical Therapy Eval and Treat Routine Reason for consultation: fall Has provider been notified: No Discharging clinician: Maggie Cortes DS: Diagnosis Discharge Diagnosis (1) Closed head injury: Qualifiers: Encounter type: initial encounter Qualified Code(s): S09.90XA - Unspecified injury of head, initial encounter (2) AMS (altered mental status): Qualifiers: Altered mental status type: disorientation Qualified Code(s): R41.0 - Disorientation, unspecified (3) Accidental fall: Qualifiers: Encounter type: initial encounter Qualified Code(s): W19.XXXA - Unspecified fall, initial encounter (4) Hypothyroid: Qualifiers: Hypothyroidism type: acquired Qualified Code(s): E03.9 - Hypothyroidism, unspecified (5) COPD (chronic obstructive pulmonary disease): Qualifiers: COPD type: unspecified COPD Qualified Code(s): J44.9 - Chronic ob structive pulmonary disease, unspecified (6) Chronic respiratory failure with hypoxia, on home oxygen therapy: (7) Hypertension: Qualifiers: Hypertension type: primary hypertension Qualified Code(s): I10 - Essential (primary) hypertension (8) GERD (gastroesophageal reflux disease): Qualifiers: Esophagitis presence: without esophagitis Qualified Code(s): K21.9 - Gastro-esophageal reflux disease without esophagitis (9) Anxiety: DS: Summary Hospital Course Hospital Course: Patient is a 74 y.o white female with past medical history of HTN, smoker, COPD with chronic respiratory failure requiring home oxygen (noncompliance), hypothyroidism, GERD, anxiety, and chronic pain of the neck and back who presented to the ER after a fall in her own home. Per ER report Patient reports she was going down in her house when she lost balance and fell. She reports she fell onto her back. She did hit her head. She did not lose consciousness per her report. She denies any numbness, weakness, tingling. No vision changes. She has a mild posterior headache. She denies any neck or back pain that is new. She denies any extremity injury. She denies blood thinner use. She reports that she had some mild head pain as well as some nausea tonight prompting her ED visit. Patient reported she was out of it for awhile after fall and did loss consciousness. She does not have stairs in her apartment and was able to yell out to her neighbor who called EMS. She says that she has been wobbly for awhile. Her daughter lives in [place] and checks in on her frequently and her son lives across the street but she doesn't see him much. She is alert to person, place and time. She knows that Dr. Sheriff is her doctor. She has chronic neck pain, but seems worse today after the fall. She denies any current headache, visual changes or nausea/vomiting. No weakness in hands or arms. Some weakness in legs but she reports this has been ongoing. ER findings: WBC's 8.1, hb 15.7, INR 1.08, Cr 0.63, Na 131 and UA negative; CT head: Negative; CT cervical spine: Negative; EKG without evidence of ischemia or arrhythmia. Normal QTc. Patient was admitted on telemetry and had no overnight events. CBC and BMP stable this morning. I also repeated CT head yesterday about 24 hours out from initial injury and still with some chronic atrophy and microvascular changes but no evidence of bleeding or stroke. This morning patient's mentation is much improved. She is still alert and oriented x 3. She did well for PT and OT, did desaturated when walking but recovered with her oxygen. I discussed options for acute rehab but patient wishes to return home with home health services. She has oxygen at home. I encouraged her to wear it when she is NOT smoking. She will have close follow up with Dr. Sheriff. Infectious work up negative. She will resume home medications. She does have chronic neck pain at baseline and told her she may be sore for a few days but no acute changes on CT spine. She will be discharged home today per her wishes in stable condition. Status at Discharge Functional status at discharge: uses cane/walker Overall status at discharge: patient is back to baseline Time Spent with Patient Time attestation: Total time spent providing and/or coordinating discharge services: Time spent: greater than 30 minutes Exam Narrative Exam Narrative: General: Patient is alert, and oriented to person, place and time Skin: She does have small contusion on the occipital scalp area, no abrasions noted. Eyes: PERRLA, no nystagmus present, conjunctiva clear, no scleral icterus Ears: normal gross auditory acuity Nose: symmetric, no discharge, no maxillary or frontal sinus tenderness Mouth/Throat: no dentition Neck: no masses palpated, normal thyroid Heart: Normal rate and rhythm, no murmurs/rubs/gallops Lungs: no audible wheezes, crackles and normal breath sounds all lung talbot Abdomen: Normal audible bowel sounds, no distension, No palpable masses, no organomegaly, no rebound/guarding/ or rigidity Musculoskeletal: muscle atrophy noted, ROM is limited due to being in hospital chair, no swelling bilateral lower extremities, stasis dermatitis present both legs Neuro: CN II-X grossly intact Constitutional Vital Signs, click to edit/add: Last Vital Signs Temp 98.1 F 01/05/25 08:00 Pulse 69 01/05/25 10:00 Resp 18 01/05/25 08:00 BP 125/61 01/05/25 08:00 Pulse Ox 88 L 01/05/25 08:00 O2 Del Method Nasal Cannula 01/05/25 08:00 O2 Flow Rate 1 01/05/25 08:00 DS: Data Data Completed and Pending Labs on day of discharge: Labs from last 24 hours 01/05/25 05:38 WBC 7.1 RBC 4.61 Hgb 14.5 Hct 43.9 MCV 95.2 MCH 31.5 MCHC 33.0 RDW 14.7 Plt Count 176 MPV 11.8 Neut % (Auto) 59.0 Lymph % (Auto) 25.3 [place] % (Auto) 12.8 H Eos % (Auto) 2.1 Baso % (Auto) 0.7 Neut # (Auto) 4.2 Lymph # (Auto) 1.8 [place] # (Auto) 0.9 H Eos # (Auto) 0.2 Baso # (Auto) 0.1 Abs Immat Gran (auto) 0.01 Imm/Tot Granulo (auto) 0.1 Sodium 138 Potassium 4.1 Chloride 100 Carbon Dioxide 33.5 H Anion Gap 8.6 BUN 13.0 Creatinine 0.53 L Est GFR ( Amer) >60 Est GFR (Non-Af Amer) >60 BUN/Creatinine Ratio 24.5 Glucose 86 Calcium 8.6 Discharge Plan Discharge Disposition: Home [facility] Service Condition: Fair Discharge Medications: Continued baclofen 20 mg tablet 20 mg PO QAM Rx Instructions: 1 tablet in am, 1/2 tab in noon and 2 tabs at HS buspirone 15 mg tablet 15 mg PO BID@0800,1200 Rx Instructions: 2 at HS levothyroxine 175 mcg tablet 175 mcg PO .acb spironolactone 100 mg tablet 100 mg PO .qd tramadol 50 mg tablet 100 mg PO Q8H famotidine 20 mg tablet 20 mg PO BID mirtazapine 45 mg tablet 45 mg PO .qhs duloxetine 20 mg capsule,delayed release(DR/EC) 40 mg PO .qd baclofen 10 mg tablet 10 mg PO DAILY@1200 baclofen 20 mg tablet 40 mg PO .qhs buspirone 15 mg tablet 30 mg PO .qhs pantoprazole 40 mg tablet,delayed release (DR/EC) 40 mg PO .bidac gabapentin 100 mg capsule 100 mg PO TID Activity: ambulate only with your walker and wear oxygen at all times Activity Detail: 2 Liters via [place] Diet: advance to your usual diet Print Language: Serbian Patient Instructions: Fall Prevention for Older Adults (DC), Head Injury (DC), Acute Delirium (DC) Forms: Portal Instructions Follow Up Appointments: January 09 @ 2pm with Dr. Sheriff [phone] Discharge location: Home with [facility]
--- NOTE | 2025-01-05 11:13 | CM.NOTE ---
Rounds made with Dr. Cortes. Dr. Cortes reviews plan of care with Jenny. Jenny verbalizes understanding. Plan Home with Home Health after seen by PT/OT.
--- NOTE | 2025-01-05 11:14 | PT.DAILY ---
Physical Therapy Daily Note PT Daily Note/Assess Start: 01/05/25 11:08 Freq: Status: Active Protocol: Document 01/05/25 11:08 [id number] (Rec: 01/05/25 11:14 [id number]) Physical Therapy Daily Note/Assessment Time In/Time Out Time In 10:04 Time Out 10:15 Pain In Pain Level 5 Pain Out Pain Level 5 Subjective Subjective Patient received supine in bed and agreeable to participate with PT. Patient reports her pain is in the neck. Therapeutic Exercise Time Therapeutic Exercise 3 Minutes (minutes) Therapeutic Exercise 0 Units Therapeutic Exercise Treatment Therapeutic Exercise Patient performed supine ROLANDO LE ther ex for Treatment strengthening in reps of 10. Ankle pumps, quad sets and SLR. Seated for LAQ and hip ABD/ADD. SPO@ level at 91% prior to ther ex. Therapeutic Activity Time Therapeutic Activity 8 Minutes (minutes) Therapeutic Activity 1 Units Therapeutic Activity Treatment Bed Mobility Ability Standby Assistance,Contact Guard Assist Chair Transfer Standby Assistance Ability Therapeutic Activity Bed mobility: supine to R sitting EOB with use of R Comments hand rail. Sitting balance good without UE support. Transfer: sit to stand to 2WW is SBA +1. Demonstrates safe hand placement during transfer. Patient ambulated ~40 feet x 1 with 2WW and seated in chair at bedside. SPO2 level post ambulation is 84%. Nursing notified of patient SPO2 level and acknowledges information. CBWR and all needs met. Total Physical Therapy Time Total Therapy 11 Minutes Total Physical 1 Therapy Units Summary Daily Note Summary Patient demonstrates desaturation of O2 levels with exertion. Improved ambulation distance without LOB. Patient would benefit from SNF to address decreased functional mobility for return to PLOF.
--- NOTE | 2025-01-05 11:19 | SWNOTE1 ---
Pt is discharged home with [facility]. We faxed dc information to [facility]. SW called pt's daughter and left a message in regard to dc plan, and waiting to hear back.
[2025-01-05] MEDS: BACLOFEN 10 MG TABLET PO (13:18)
--- NOTE | 2025-01-05 13:52 | SWNOTE1 ---
HOLDEN spoke to daughter, Pearl. HOLDEN explained that pt is doing better and has voice she wants to go home with HH. SW let her know that [facility] is set up. SW asked about transport home. She voiced that her and her fiance work at the same place and they are stuck there for over time until 7:00. She advised SW to see if Radha, pt's friend, can pick her up. SW to check with pt.
--- NOTE | 2025-01-05 14:17 | SWNOTE1 ---
HOLDEN called Radha, pt's friend, but she is not able to transport due to running errands with her . HOLDEN asked pt if her house was unlocked, she was not sure. She checked her purse for a jiménez but could not find one. HOLDEN called daughter back and explained situation. She is going to check with her brother and niece to see if they can make sure house is unlocked. HOLDEN advised daughter that trips may or may not have transport due to it being later in afternoon. Daughter will call HOLDEN back.
--- NOTE | 2025-01-05 14:34 | SWNOTE1 ---
SW called [facility] and they could likely do transport at 5:30. HOLDEN spoke to nurse and it was decided for safety reasons to have the daughter come pick her up after work at 7:00. If SW set up trips, pt would have to disconnect from the oxygen we send her with and food preparation supervisor to the oxygen at her house, plus walk in to the home without any assistance or DME equipment. At this time decision was made for daughter to potato picker. SW called daughter, had to leave message.
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
--- NOTE | 2025-01-06 13:30 | CM.DCFOLLOWU ---
Person spoke with: patient How are you feeling? well How is your pain?none Did you understand your discharge instructions?yes Do you have any questions about your discharge instructions? no questions Were you given any prescriptions at discharge? no Were you able to get your prescriptions filled?N/A Do you understand how to take your medications as ordered?yes Do you have any questions about your follow up appointment and do you plan to keep your follow up appointment? no questions, yes follow up. HH called her, but her phone is being weird. She is thinking about cancelling her HH. Is there anything else that you would like to discuss? no Questions/Comments/Concerns/Other:none
== END 2025-01-05 17:09 | disposition home health service (06) ==
LOC: ER 22:52 → MS 01-04 02:41
PROVIDERS: Registered Nurse; Admitting Provider Family Medicine; Emergency Provider Student in an Organized Health Care Education/Training Program; PCP Family Medicine; Visit Provider Family Medicine
DX: S09.8XXA Other specified injuries of head, initial encounter (principal); W10.8XXA Fall (on) (from) other stairs and steps, initial encounter; F03.90 Unspecified dementia, unspecified severity, without behavioral disturbance, psychotic disturbance, mood disturbance, and anxiety; I10 Essential (primary) hypertension; J44.9 Chronic obstructive pulmonary disease, unspecified; Z99.81 Dependence on supplemental oxygen; E03.9 Hypothyroidism, unspecified; K21.9 Gastro-esophageal reflux disease without esophagitis; F41.9 Anxiety disorder, unspecified; M54.2 Cervicalgia; M54.9 Dorsalgia, unspecified; G89.29 Other chronic pain; R41.0 Disorientation, unspecified; J96.11 Chronic respiratory failure with hypoxia; Z79.899 Other long term (current) drug therapy; Z91.198 Patient's noncompliance with other medical treatment and regimen for other reason; F17.210 Nicotine dependence, cigarettes, uncomplicated
CPT/HCPCS: 36415; 70450; 71045; 72125; 80048; 80053; 81001; 85025; 85027; 93005; 94761; 96365; 96375; 97161; 97165; 97530; 97535; 99285; 99406; G0378; J0131; J2405

== ENCOUNTER 2025-03-29 10:13 | Outpatient (OUT) | payer MEDICARE, SELFPAY ==
--- OUTSIDE RECORDS SUMMARY | 2025-03-29 10:15 | XMS_ITS | Clinical Summary ---
[id number] [address] [id number] Care Team Providers Care Churner Name Role Phone Unavailable Primary Care Provider [...]
[2025-03-29 12:03] LABS: Free T3 2.23 pg/mL (2.18-3.98)
--- OUTSIDE RECORDS SUMMARY | 2025-03-29 12:24 | XMS_ITS | CCD ---
Author Organization [facility] Inform ion Partnership [facility] Care Team Providers Care Corporate Strategist Name Role Phone JAZIEL, DR RAMIREZ Primary [...] Care Provider DO Frantz Nieves Admit Provider [phone] MD Jaspal Whalen Attending Provider MD [...] Gaona DO Unavailable Dionne RN, Aimee Unavailable [phone] Catracho Sheriff MD Unavailable [phone] Catracho Sheriff MD Primary Care Provider Catracho Sheriff MD Unavailable Catracho Sheriff MD Primary Care Provider [phone] CATRACHO SHERIFF Primary Care Unavailable CATRACHO SHERIFF Primary Care Unavailable SHANEL, AIJAZ Attending Unavailable SHANEL, AIJAZ Admitting Unavailable SHANEL, AIJAZ Attending Unavailable SHANEL, AIJAZ Admitting Unavailable CATRACHO SHERIFF Primary Care Unavailable CATRACHO SHERIFF Primary Care Unavailable CATRACHO SHERIFF Primary Care Unavailable Catracho Sheriff MD Primary Care Provider CATRACHO SHERIFF Attending Unavailable CATRACHO SHERIFF Attending Unavailable HEMECATRACHO GREEN Attending Unavailable HEMECATRACHO GREEN Attending Unavailable LEONILA ZAPATA Attending Unavailable LEONILA ZAPATA Attending Unavailable HEMECATRACHO GREEN Attending Unavailable HEMECATRACHO GREEN Attending Unavailable HEMECATRACHO GREEN Attending Unavailable CATRACHO SHERIFF Attending Unavailable HEMECATRACHO GREEN Attending Unavailable Dionne COSTA, Aimee Unavailable Catracho Sheriff MD Primary Care Provider [phone] Allergies Allergy Classification Reported Allergen(s) Allergy Type Date of Onset Reaction(s) Facility (1 source) Cephalexin Drug Allergy 11-29-19 14 [facility] (1 source) Iron Drug Allergy 07-03-20 15 [facility] (1 source) moxifloxacin Drug Allergy 07-14-20 13 [facility] (1 source) Penicillins Drug allergy (disorder) 07-14-20 13 [facility] (1 source) Sulfonamides (Antibiotic) Drug allergy (disorder) 07-14-20 13 [facility] (1 source) varenicline Drug Allergy 11-29-19 14 [facility] (20 sources) busPIRone Drug Allergy 01-15-20 23 [facility] Healthcare (20 sources) Cephalexin Drug Allergy 11-29-19 14 [facility] (20 sources) Codeine Drug Allergy 01-15-20 23 Other (See Comments) [facility] Healthcare (20 sources) Mirtazapine Drug Allergy 07-23-20 23 Hallucinations [facility] (20 sources) moxifloxacin Drug Allergy 01-15-20 23 Hives [facility] (20 sources) Penicillins Drug Allergy 01-15-20 23 Rash [facility] (20 sources) traZODone Drug Allergy 01-15-20 23 [facility] (20 sources) varenicline Drug Allergy 11-29-19 14 [facility] (1 source) Meperidine Drug Allergy 11-17-19 24 other [facility] (20 sources) Ibuprofen Drug Allergy 11-25-19 24 Other (See Comments) [facility] (20 sources) Niacin And Related Propensity to adverse reactions to drug 11-25-19 24 Hives [facility] (20 sources) Meperidine Drug Allergy 11-17-19 24 [facility] (2 sources) Iron Drug Allergy 07-03-20 15 [facility] (2 sources) Meperidine Drug Allergy 06-21-20 24 [facility] (2 sources) Mirtazapine Drug Allergy 06-21-20 24 [facility] (2 sources) Penicillins Propensity to adverse reactions to drug 07-14-20 13 Rash [facility] Medications Current Medications Medication Drug Class(es) Dates Sig (Normalized) Sig (Original) Acetaminophen (1 source) Start: 11-25-2023 acetaminophen (TYLENOL) tablet 650 mg [id number] 200 actuat albuterol 0.09 mg/actuat metered dose inhaler (20 sources) beta2-Adrenergic Agonist Start: 06-21-2024 End: 06-21-2024 take 2 puff(s) by inhalation every six hours albuterol HFA (Ventolin HFA) 90 mcg/act inhaler Indications: Mucopurulent chronic bronchitis (HCC) Inhale 2 puffs every 6 (six) hours [...] Inhalation, EVERY 6 HOURS PRN, Starting on 5/1/24 at 0836, Until Discontinued, Wheezing Initiate RT [...] mL nebulizer solution Indications: Mucopurulent chronic bronchitis (HCC) Take 3 mL by nebulization in the [...] Take 2 tablets by mouth daily Active azithromycin 250 mg oral tablet (3 sources) Macrolide Antimicrobial Start: 01-11-2025 End: 03-08-2025 azithromycin (Zithromax) 250 MG tablet Indications: Mucopurulent chronic bronchitis (HCC) Take 2 tablets day one then 1 tablet daily 6 tablet 01/11/2025 03/08/2025 Discontinued (Therapy completed) b complex vitamins capsule (20 sources) take 1 capsule by mouth once daily b complex vitamins capsule Take [...] (Stop Taking at Discharge) busPIRone hydrochloride 15 m g oral tablet (20 sources) Start: 01-09-2025 busPIRone (Bus par) 15 MG tablet Indications: Generalized anxiety disorder Take 0.5 tablet at breakfast and 0.5 tablet lunch, and 2 tablets at bedtime. 270 tablet 1 01/09/2025 Active Start: 11-25-2023 take 1 tablet by carine th once daily 30 mg, Oral, Nightly, First dose on Thu11/25/23 at 2100, Until Discontinued This 15 mg tablet can be split into thirds (5 mg) or halves (7.5 mg) based on the ordered dose. Start: 10-21-2023 End: 01-09-2025 busPIRone (Buspar) 15 MG tab let Indications: Generalized anxiety disorder Take 1 tablet at breakfast and 1 tablet lunch, and 2 tablets at bedtime. 360 tablet 1 04/14/2024 01/09/2025 Discontinued (Reorder) Start: 04-29-2023 take 1 tablet by carine th twice daily at mealtime 15 mg, Oral, [...] injectable solution (1 source) Start: 01-29-2024 lactated ringe rs IV soln infusion calcium citrate 1040 [...] mouth 1 (one) time each day Active SJG-JIZ-Yjjzuiq E (OMEGA-3 COMPLEX PO) (4 sources) take 1 capsule by mouth once daily WME-OWB-Wedrirr E (OMEGA-3 COMPLEX PO) Take 1 capsule by mouth daily Active take 1 capsule by mouth once nereyda ly RSV-JCS-Xysxfpg E (OMEGA-3 COMPLEX PO) Take 1 capsule by mouth daily 0 Suspended doxepin hydrochloride 10 mg oral capsule (1 source) Tricyclic Antidepressant Start: 11-29-2023 doxepin (SINEQUAN) capsule 10 mg DULoxetine 20 mg delayed release oral capsule (20 sources) Serotonin and Norepinephrine Reuptake Inhibitor Start: 03-30-2024 End: 07-08-2025 take 2 capsules by mouth once daily DULoxetine (Cymbalta) [address] capsule Indications: Chronic pain syndrome Take 2 capsules (40 mg) by mouth Daily 180 capsule 1 01/09/2025 07/08/2025 Active Start: 11-25-2023 take 1 capsule by mo uth once daily 40 mg, Oral, DAILY, First [...] sources) Histamine-2 Receptor Antagonist Start: 04-14-2024 End: 07-18-2025 take 1 tablet by mouth in the morning famotidine (Pepcid) 20 MG tablet Indications: Duodenal stricture (HHS-HCC) Take 1 tablet (20 mg) by mouth in the morning and 1 tablet (20 mg) before bedtime. 180 tablet 1 01/19/2025 07/18/2025 Active 120 actuat fluticasone propionate 0.11 mg/actuat [...] (20 sources) Anti-epileptic Agent Start: 05-28-2023 End: 07-08-2025 take 1 capsule by mouth in the morning, then take 1 capsule by mouth in the evening, then take 1 capsule by mouth at bedtime gabapentin (Neurontin) 100 MG capsule Indications: Chronic pain syndrome Take 1 capsule (100 mg) by mouth in the morning and 1 capsule (100 mg) in the evening and 1 capsule (100 mg) before bedtime. 270 capsule 1 01/09/2025 07/08/2025 Active 1 ml HYDROmorphone hydrochloride 1 mg/ml [...] (Synthroid) 175 MCG tablet Indications: Postsurgical hypothyroidism Take 1 tablet daily 90 tablet 1 [...] oral tablet (20 sources) Start: 12-20-2024 End: 08-07-2025 take 1 tablet by mouth at bedtime mirtazapine (Remeron) 45 MG tablet Indications: Sleep arousal disorder Take 1 tablet (45 mg) by mouth at bedtime 90 tablet 1 02/08/2025 08/07/2025 Active Start: 02-15-2024 End: 10-11-2024 take 1 tablet by mouth at bedtime mirtazapine (Remeron) 30 MG tablet Indications: Sleep arousal disorder Take 1 tablet (30 mg) by mouth at bedtime 90 tablet 1 04/14/2024 10/11/2024 Active naloxone 0.4 mg in 10 mL sodium chloride syringe (1 source) Start: 12-01-2023 naloxone 0.4 mg in 10 mL sodium chloride syringe [place]-3 Fatty Acids (Fish Oil) 1000 MG capsule delayed-release (20 sources) Sumerduck-3 Fatty Ac ids (Fish Oil) 1000 MG capsule delayed-release Take by mouth Active [place]-3 Fatty Acids (FISH OIL) 1000 MG CPDR (2 sources) [place]-3 Fatty Ac ids (FISH OIL) 1000 MG [...] Active 150 MG PO Every 48 hours November 21, 2023 12:00am Potassium Chloride (1 [...] (20 sources) Aldosterone Antagonist Start: 07-13-2024 End: 07-18-2025 take 1 tablet by mouth once daily spironolactone (Aldactone) 50 MG tablet Indications: Peripheral edema Take 1 tablet (50 mg) by mouth Daily Dose increase 90 tablet 1 01/19/2025 07/18/2025 Active Start: 03-07-2024 End: 07-13-2024 take 0.5 [...] (20 sources) take 2 tablets by mo uth once daily STRONTIUM CITRATE Take 2 tablets [...] (20 sources) Opioid Agonist Start: 01-19-2024 End: 04-07-2025 traMADol (Ultram) 50 MG tablet Indications: Chronic pain syndrome Take 2 tablets (100 mg) by mouth in the morning and 2 tablets (100 mg) at noon and 2 tablets (100 mg) in the evening and 2 tablets (100 mg) before bedtime. 240 tablet 03/08/2025 04/07/2025 Active Start: 11-25-2023 take 100 mg by [...] (Normalized) Sig (Original) 20 ml albumin human, jail 250 mg/ml injection (1 source) Human Serum [...] disorder] Onset: 01-06-2023 08-13-2023 Chronic Cardiac dysrhythmias (14 sources) Paroxysmal atrial fibrillation; Translations: [Paroxysmal atrial [...] Translations: [Anemia, unspecified] Onset: 11-17-2023 11-21-2023 Episodic E Codes: Fall (2 sources) Fall in home; Translations: [Unspecified fall, subsequent encounter] 01-09-2025 Episodic Esophageal disorders (20 sources) Gastroesophageal reflux [...] [Weakness] Onset: 11-17-2023 11-17-2023 Episodic Nutritional deficiencies (7 sources) Deficiency of macronutrients; Translations: [Mild protein-calorie malnutrition] Onset: 12-27-2024 12-27-2024 Chronic Osteoarthritis (20 sources) Bilateral arthritis of knees; Translations: [Bilateral primary osteoarthritis of knee] Onset: 01-06-2023 09-04-2023 Chronic Osteoporosis (20 sources) Osteoporosis; Translations: [Age-related osteoporosis without current pathological fracture] Onset: 01-06-2023 01-06-2023 Chronic Other aftercare (2 sources) Patient encounter status; Translations: [Encounter for follow-up examination after completed treatment for conditions other than malignant neoplasm] 01-09-2025 Episodic Other diseases of veins and lymphatics (2 [...] Episodic Other disorders of stomach and duodenum (5 sources) Stricture of duodenum; Translations: [Obstruction of [...] blood-forming organs] Onset: 11-17-2023 11-21-2023 Chronic Other injuries and conditions due to external causes (2 sources) Closed injury of head; Translations: [Unspecified injury of head, sequela] 01-09-2025 Episodic Other nervous system disorders (20 sources) Chronic [...] Onset: 11-17-2023 11-21-2023 Episodic Residual codes; unclassified (3 sources) Peripheral edema; Translations: [Localized edema] 07-13-2024 [...] aftercare (20 sources) Polypharmacy ; Translations: [Other continuous churn buttermaker (current) drug therapy] Onset: 1 01-28-2023 Episodic Other aftercare (20 sources) Taking high risk medication; Translations: [Other retirement (current) drug therapy] Onset: 1 Resolved: 4 07-31-2023 Episodic Other aftercare (20 sources) Drug therapy finding; Translations: [Other continuous churn buttermaker (current) drug therapy] Onset: 4 10-15-2023 Episodic [...] [Sick-euthyroid syndrome] Onset: 3 01-06-2023 Episodic Unclassified (7 sources) Onset: 5 10-11-2024 Varicose veins of lower extremity (20 sources) Varicose vein of leg with phlebitis; Translations: [Varicose veins of right lower extremity with inflammation] Onset: 3 Resolved: 4 08-13-2023 Episodic Results Test Name Value Interpretation Reference Range Facility ALL T3 FREEon 03-29-2025 Free T3 [Mass/Vol] 2.23 pg/mL 2.18 - 3.98 pg/mL [facility] ALL HEMOGLOBINon 07-06-2024 Hemoglobin (Bld) [Mass/Vol] 14.5 g/dL 12.0 - 16.0 g/dL [facility] Surgical Pathology Reporton 01-29-2024 Surgical Pathology Report (NOTE) Path Number: [id number] -- Diagnosis -- STOMACH, BIOPSY: -MINIMAL TO MILD CHRONIC INACTIVE GASTRITIS -NO MORPHOLOGIC EVIDENCE OF HELICOBACTER PYLORI [employer]GANISMS Alvarez Su D.O. Electronically Signed Out [facility]/02/01/2024 Clinical Information Pre-Op Diagnosis: DUODENAL ULCER Operative [...] Microscopic Description Microscopic examination performed. Processing Lab: [address] [id number] Interpretation Performed at [address] [id number] SURGICAL PATHOLOGY CONSULTATION Patient Name: JENNY EWING [facility] Rec: [id number] [facility] ANATOMIC PATHOLOGY [address] [place] [phone] Normal [facility] Basic Metab w/rfx MGon 12-02 Anion gap [Moles/Vol] 7 mmol/L Low 9-16 [facility] Comment on above: Performed By: #### B MPX, MG, CDP #### [facility] [employer] [address] [place] [address] [employer]: Dwain Aldana MD Calcium [Mass/Vol] 7.6 mg/dL Low 8.6-10.4 [facility] Comment on above: Performed By: #### B MPX, MG, CDP #### [facility] [employer] [address] [place] [address] [employer]: Dwain Aldana MD Chloride [Moles/Vol] 101 mmol/L Normal 98-107 [facility] Comment on above: Performed By: #### B MPX, MG, CDP #### [facility] [address] [place] [address] [employer]: Dwain Aldana MD CO2 [Moles/Vol] 31 mmol/L Normal 20-31 [facility] Comment on above: Performed By: #### B MPX, MG, CDP #### [facility] [address] [place] [address] [employer] Clerk [employer]: Dwain Aldana MD Creatinine [Mass/Vol] 0.4 mg/dL Low 0.50-0.90 [facility] Comment on above: Performed By: #### B MPX, MG, CDP #### [address] [address] [employer] Clerk [employer]: Dwain Aldana MD GFR/1.73 sq M.predicted among non-blacks MDRD (S/P/Bld) [Vol rate/Area] mL/min/{1.73_m2} Normal >60 [facility] Comment on above: Result Comment: These results [...] B MPX, MG, CDP #### [facility] [employer] [address] [place] [address] [employer]: Dwain Aldana MD Glucose [Mass/Vol] 83 mg/dL Normal 74-99 [facility] Comment on above: Performed By: #### B MPX, MG, CDP #### [facility] [employer] [address] [place] [address] [employer]: Dwain Aldana MD Potassium [Moles/Vol] 3.2 mmol/L Low 3.7-5.3 [facility] Comment on above: Performed By: #### B MPX, MG, CDP #### [facility] [address] [place], [place] [phone] [employer]: Dwain Aldana MD Sodium [Moles/Vol] 139 mmol/L Normal 136-145 [facility] Comment on above: Performed By: #### B MPX, MG, CDP #### [facility] [address] [place], [place] [phone] [employer]: Dwain Aldana MD Urea nitrogen [Mass/Vol] 2 mg/dL Low 8-23 [facility] Comment on above: Performed By: #### B MPX, MG, CDP #### [facility] [address] [place], [place] [phone] [employer]: Dwain Aldana MD Basic Metabolic Panel w/ Ref merlene to MGon 12-03-2023 Anion gap [Moles/Vol] 7 mmol/L Low 9 - 16 mmol/L [facility] [employer] Calcium [Mass/Vol] 7.6 mg/dL Low 8.6 - 10. 4 mg/dL [facility] Chloride [Moles/Vol] 101 mmol/L 98 - 10 7 mmol/L [facility] CO2 [Moles/Vol] 31 mmol/L 20 - 31 mmol/L [facility] Creatinine [Mass/Vol] 0.4 mg/dL Low 0.50 - 0.90 mg/dL [facility] Driblet Est, Glom Filt Rate - [facility] Comment on above: These results are [...] [Mass/Vol] 83 mg/dL 74 - 99 mg/dL [facility] Interpretation and review of laboratory results Abnormal [facility] Potassium [Moles/Vol] 3.2 mmol/L Low 3.7 - 5.3 mmol/L [facility] Sodium [Moles/Vol] 139 mmol/L 136 - 145 mmol/L [facility] Urea nitrogen [Mass/Vol] 2 mg/dL Low 8 - 23 mg/dL [facility] CBC with Auto Differentialon 12-03-2023 Basophils (Bld) [#/Vol] 0.08 10*3/uL [facility] Basophils/100 WBC (Bld) 1 % 0 - 2 % [facility] Eosinophils (Bld) [#/Vol] 0.23 10*3/uL [facility] Eosinophils/100 WBC (Bld) 3 % 1 - 4 % [facility] Erythrocyte distribution width (RBC) [Ratio] 17.7 % High 11.8 - 14.4 % [facility] Hematocrit (Bld) [Volume fraction] 29.4 % Low 36.3 - 47.1 % [facility] Hemoglobin (Bld) [Mass/Vol] 9.6 g/dL Low 11.9 - 15.1 g/dL [facility] Immature granulocytes (Bld) [#/Vol] 0.08 10*3/uL [facility] Immature granulocytes/100 WBC (Bld) 1 % High 0 [facility] Interpretation and review of laboratory results Abnormal [facility] Lymphocytes/100 WBC (Bld) 18 % Low 24 - 43 % [facility] Lymphocytes/100 WBC (Bld) 1.37 % [facility] MCH (RBC) [Entitic mass] 30.4 pg 25.2 - 33.5 pg [facility] MCHC (RBC) [Mass/Vol] 32.7 g/dL 28.4 - 34.8 g/dL [facility] MCV (RBC) [Entitic vol] 93.0 fL 82.6 - 102.9 fL [facility] Monocytes/100 WBC (Bld) 9 % 3 - 12 % [facility] Monocytes/100 WBC (Bld) 0.68 % [facility] Morphology Jesus (Bld) [Interp] Normal [facility] Neutrophils/100 WBC (Bld) 68 % High 36 - 65 % [facility] Nucleated RBC/100 WBC (Bld) [Ratio] 0.0 % 0.0 per 100 WBC [facility] Platelet, Fluorescence 347 [facility] Platelets (Bld) [#/Vol] See Reflexed IPF Result [facility] Platelets reticulated/100 platelets Auto (Bld) 4.0 % 1.1 - 10.3 % [facility] RBC (Bld) [#/Vol] 3.16 10*6/uL Low 3.95 - 5.11 m/uL [facility] RBC (Bld) [#/Vol] ANISOCYTOSIS PRESENT [facility] Segmented neutrophils/100 WBC (Bld) 5.16 % [facility] WBC other (Bld) [#/Vol] 7.6 [facility] CBC with Diffon 12-03-2023 Abs. Basophil 0.08 k/uL Normal 0.00-0.20 [facility] Comment on above: Performed By: #### B MPX, MG, CDP #### [employer] [address] [place] [phone] [employer] Clerk [employer]: Dwain Aldana MD Abs.Imm.Granulocyte 0.08 k/uL Normal 0.00-0.30 [facility] Comment on above: Performed By: #### B MPX, MG, CDP #### [facility] [address] [place] [address] Contract Clerk [employer]: Dwain Aldana MD Abs.Neutrophil (Seg) 5.16 k/uL Normal 1.50-8.10 [facility] Comment on above: Performed By: #### B MPX, MG, CDP #### [employer] [facility] [place] [address] [employer] Clerk [employer]: Dwain Aldana MD Basophils/100 WBC (Bld) 1 % Normal 0-2 [facility] Comment on above: Performed By: #### B MPX, MG, CDP #### [facility] [employer] [address] [place] [address] [employer] Clerk [employer]: Dwain Aldana MD Eosinophils (Bld) [#/Vol] 0.23 10*3/uL Normal 0.00-0.44 [facility] Comment on above: Performed By: #### B MPX, MG, CDP #### [facility] [employer] [address] [place] [address] [employer] Clerk [employer]: Dwain Aldana MD Eosinophils/100 WBC (Bld) 3 % Normal 1-4 [facility] Comment on above: Performed By: #### B MPX, MG, CDP #### [facility] [employer] [address] [place] [address] [employer]: Dwain Aldana MD Immature granulocytes/100 WBC (Bld) 1 % High 0 [facility] Comment on above: Performed By: #### B MPX, MG, CDP #### [facility] [address] [place] [address] [employer] Clerk [employer]: Dwain Aldnaa MD Lymphocytes (Bld) [#/Vol] 1.37 10*3/uL Normal 1.10-3.70 [facility] Comment on above: Performed By: #### B MPX, MG, CDP #### [facility] [employer] [address] [place] [address] [employer] Clerk [employer]: Dwain Aldana MD Lymphocytes/100 WBC (Bld) 18 % Low 24-43 [facility] Comment on above: Performed By: #### B MPX, MG, CDP #### [facility] [address] [place] [address] [employer] Clerk [employer]: Dwain Aldana MD Monocytes (Bld) [#/Vol] 0.68 10*3/uL Normal 0.10-1.20 [facility] Comment on above: Performed By: #### B MPX, MG, CDP #### [address] [address] [employer] Clerk [employer]: Dwain Aldana MD Monocytes/100 WBC (Bld) 9 % Normal 3-12 [facility] Comment on above: Performed By: #### B MPX, MG, CDP #### [address] [address] [employer]: Dwain Aldana MD Morphology Jesus (Bld) [Interp] Normal Normal [facility] Comment on above: Performed By: #### B MPX, MG, CDP #### [address] [address] [employer] Clerk [employer]: Dwain Aldana MD Neutrophil (Seg) 68 % High 36-65 [facility] Comment on above: Performed By: #### B MPX, MG, CDP #### [facility] [employer] [address] [place] [address] [employer] Clerk [employer]: Dwain Aldana MD Platelet, Fluoresc. 347 k/uL Normal 138-453 [facility] Comment on above: Performed By: #### B MPX, MG, CDP #### [address] [address] [employer] Clerk [employer]: Dwain Aldana MD PLT, Immature Fract. 4.0 % Normal 1.1-10.3 [facility] Comment on above: Performed By: #### B MPX, MG, CDP #### [address] [address] [employer]: Dwain Aldana MD Erythrocyte distribution width (RBC) [Ratio] 17.7 % High 11.8-14.4 [facility] Comment on above: Performed By: #### B MPX, MG, CDP #### [address] [address] [employer]: Dwain Aldana MD Hematocrit (Bld) [Volume fraction] 29.4 % Low 36.3-47.1 [facility] Comment on above: Performed By: #### B MPX, MG, CDP #### [address] [address] [employer]: Dwain Aldana MD Hemoglobin (Bld) [Mass/Vol] 9.6 g/dL Low 11.9-15.1 [facility] Comment on above: Performed By: #### B MPX, MG, CDP #### [address] [address] [employer] Clerk [employer]: Dwain Aldana MD MCH (RBC) [Entitic mass] 30.4 pg Normal 25.2-33.5 [facility] Comment on above: Performed By: #### B MPX, MG, CDP #### [address] [address] [employer]: Dwain Aldana MD MCHC (RBC) [Mass/Vol] 32.7 g/dL Normal 28.4-34.8 [facility] Comment on above: Performed By: #### B MPX, MG, CDP #### [address] [address] [employer]: Dwain Aldana MD MCV (RBC) [Entitic vol] 93.0 fL Normal 82.6-102.9 [facility] Comment on above: Performed By: #### B MPX, MG, CDP #### [address] [address] [employer]: Dwain Aldana MD NRBC Automated 0.0 per 100 WBC Normal 0.0 [facility] Comment on above: Performed By: #### B MPX, MG, CDP #### [address] [place] [address] [employer] Clerk [employer]: Dwain Aldana MD Platelet Count See Reflexed IPF Result Normal 138-453 [facility] Comment on above: Performed By: #### B MPX, MG, CDP #### [facility] [address] [place] [phone] [employer]: Dwain Aldana MD RBC (Bld) [#/Vol] 3.16 10*6/uL Low 3.95-5.11 [facility] Comment on above: Performed By: #### B MPX, MG, CDP #### [facility] [address] [place] [address] [employer]: Dwain Aldana MD RBC morphology finding Nom (Bld) ANISOCYTOSIS PRESENT Normal [facility] Comment on above: Performed By: #### B MPX, MG, CDP #### [facility] [address] [place] [address] [employer]: Dwain Aldana MD WBC (Bld) [#/Vol] 7.6 10*3/uL Normal 3.5-11.3 [facility] Comment on above: Performed By: #### B MPX, MG, CDP #### [facility] [address] [place] [address] [employer]: Dwain Aldana MD Magnesiumon 12-03-2023 Magnesium [Mass/Vol] 1.7 mg/dL Normal 1.6-2.4 [facility] Comment on above: Performed By: #### B MPX, MG, CDP #### [facility] [address] [place] [address] 83468 [employer]: Dwain Aldana MD Magnesium [Mass/Vol] 1.7 mg/dL 1.6 - 2 .4 mg/dL [facility] Basic Metab w/rfx MGon 12-01 Anion gap [Moles/Vol] 8 mmol/L Low 9-16 [facility] Comment on above: Performed By: #### B MPX, MG, CDP #### [facility] [employer] [address] [place] [address] 31139 [employer]: Dwain Aldana MD Calcium [Mass/Vol] 7.0 mg/dL Low 8.6-10.4 [facility] Comment on above: Performed By: #### B MPX, MG, CDP #### [facility] [employer] [address] [place] [address] 32684 [employer]: Dwain Aldana MD Chloride [Moles/Vol] 101 mmol/L Normal 98-107 [facility] Comment on above: Performed By: #### B MPX, MG, CDP #### [facility] [employer] [address] [place] [address] 47577 [employer]: Dwain Aldana MD CO2 [Moles/Vol] 28 mmol/L Normal 20-31 [facility] Comment on above: Performed By: #### B MPX, MG, CDP #### [facility] [employer] [address] [place] [address] 32035 [employer]: Dwain Aldana MD Creatinine [Mass/Vol] 0.4 mg/dL Low 0.50-0.90 [facility] Comment on above: Performed By: #### B MPX, MG, CDP #### [facility] [employer] [address] [place] [address] 88119 [employer]: Dwain Aldana MD GFR/1.73 sq M.predicted among non-blacks MDRD (S/P/Bld) [Vol rate/Area] mL/min/{1.73_m2} Normal >60 [facility] Comment on above: Result Comment: These results [...] By: #### B MPX MG, CDP #### [facility] [address] [place] [address] 05510 [employer]: Dwain Aldana MD Glucose [Mass/Vol] 85 mg/dL Normal 74-99 [facility] Comment on above: Performed By: #### B MPX MG, CDP #### [facility] [address] [place] [address] 61308 [employer]: Dwain Aldana MD Potassium [Moles/Vol] 3.4 mmol/L Low 3.7-5.3 [facility] Comment on above: Performed By: #### B MPX MG, CDP #### [facility] [address] [place] [address] 83051 [employer]: Dwain Aldana MD Sodium [Moles/Vol] 137 mmol/L Normal 136-145 [facility] Comment on above: Performed By: #### B MPX MG, CDP #### [facility] [address] [place] [address] 05425 [employer]: Dwain Aldana MD Urea nitrogen [Mass/Vol] 4 mg/dL Low 8-23 [facility] Comment on above: Performed By: #### B MPX MG, CDP #### [facility] [address] [place] [address] 35263 [employer]: Dwain Aldana MD Basic Metabolic Panel w/ Ref merlene to MGon 12-02-2023 Anion gap [Moles/Vol] 8 mmol/L Low 9 - 16 mmol/L [facility] Calcium [Mass/Vol] 7.0 mg/dL Low 8.6 - 10. 4 mg/dL [facility] Chloride [Moles/Vol] 101 mmol/L 98 - 10 7 mmol/L [facility] CO2 [Moles/Vol] 28 mmol/L 20 - 31 mmol/L [facility] Creatinine [Mass/Vol] 0.4 mg/dL Low 0.50 - 0.90 mg/dL [facility] [place] [facility] Comment on above: These results are [...] [Mass/Vol] 85 mg/dL 74 - 99 mg/dL [facility] Interpretation and review of laboratory results Abnormal [facility] Potassium [Moles/Vol] 3.4 mmol/L Low 3.7 - 5.3 mmol/L [facility] Sodium [Moles/Vol] 137 mmol/L 136 - 145 mmol/L [facility] Urea nitrogen [Mass/Vol] 4 mg/dL Low 8 - 23 mg/dL [facility] CBC with Auto Differentialon 12-02-2023 Basophils (Bld) [#/Vol] 0.05 10*3/uL [facility] Basophils/100 WBC (Bld) 1 % 0 - 2 % [facility] Eosinophils (Bld) [#/Vol] 0.18 10*3/uL [facility] Eosinophils/100 WBC (Bld) 3 % 1 - 4 % [facility] Erythrocyte distribution width (RBC) [Ratio] 17.9 % High 11.8 - 14.4 % [facility] Hematocrit (Bld) [Volume fraction] 27.5 % Low 36.3 - 47.1 % [facility] Hemoglobin (Bld) [Mass/Vol] 8.2 g/dL Low 11.9 - 15.1 g/dL [facility] Immature granulocytes (Bld) [#/Vol] 0.04 10*3/uL [facility] Immature granulocytes/100 WBC (Bld) 1 % High 0 [facility] Interpretation and review of laboratory results Abnormal [facility] Lymphocytes/100 WBC (Bld) 13 % Low 24 - 43 % [facility] Lymphocytes/100 WBC (Bld) 0.92 % Low [facility] MCH (RBC) [Entitic mass] 30.0 pg 25.2 - 33.5 pg [facility] MCHC (RBC) [Mass/Vol] 29.8 g/dL 28.4 - 34.8 g/dL [facility] MCV (RBC) [Entitic vol] 100.7 fL 82.6 - 102.9 fL [facility] Monocytes/100 WBC (Bld) 7 % 3 - 12 % [facility] Monocytes/100 WBC (Bld) 0.47 % [facility] Neutrophils/100 WBC (Bld) 77 % High 36 - 65 % [facility] Nucleated RBC/100 WBC (Bld) [Ratio] 0.0 % 0.0 per 100 WBC [facility] Platelet, Fluorescence 319 [facility] Platelets (Bld) [#/Vol] See Reflexed IPF Result [facility] Platelets reticulated/100 platelets Auto (Bld) 3.7 % 1.1 - 10.3 % [facility] RBC (Bld) [#/Vol] 2.73 10*6/uL Low 3.95 - 5.11 m/uL [facility] RBC (Bld) [#/Vol] ANISOCYTOSIS PRESENT [facility] Segmented neutrophils/100 WBC (Bld) 5.49 % [facility] WBC other (Bld) [#/Vol] 7.2 [facility] CBC with Diffon 12-02-2023 Platelet, Fluoresc. 319 k/uL Normal 138-453 [facility] Comment on above: Performed By: #### B MPX MG, CDP #### [employer] [address] [place] [address] 43608 [employer]: Dwain Aldana MD PLT, Immature Fract. 3.7 % Normal 1.1-10.3 [facility] Comment on above: Performed By: #### B MPX MG, CDP #### [facility] [employer] [address] [place] [address] 94876 [employer]: Dwain Aldana MD Abs. Basophil 0.05 k/uL Normal 0.00-0.20 [facility] Comment on above: Performed By: #### B MPX, MG, CDP #### [facility] [address] [place] [address] 24920 [employer] Clerk [employer]: Dwain Aldana MD Abs.Imm.Granulocyte 0.04 k/uL Normal 0.00-0.30 [facility] Comment on above: Performed By: #### B MPX, MG, CDP #### [facility] [employer] [address] [place] [address] 93172 [employer]: Dwain Aldana MD Abs.Neutrophil (Seg) 5.49 k/uL Normal 1.50-8.10 [facility] Comment on above: Performed By: #### B MPX, MG, CDP #### [facility] [employer] [address] [place] [address] 07983 [employer]: Dwain Aldana MD Basophils/100 WBC (Bld) 1 % Normal 0-2 [facility] Comment on above: Performed By: #### B MPX, MG, CDP #### [facility] [employer] [address] [place] [address] 15935 [employer]: Dwain Aldana MD Eosinophils (Bld) [#/Vol] 0.18 10*3/uL Normal 0.00-0.44 [facility] Comment on above: Performed By: #### B MPX, MG, CDP #### [facility] [employer] [address] [place] [address] 25903 [employer]: Dwain Aldana MD Eosinophils/100 WBC (Bld) 3 % Normal 1-4 [facility] Comment on above: Performed By: #### B MPX, MG, CDP #### [facility] [employer] [address] [place] [address] 87585 [employer]: Dwain Aldana MD Erythrocyte distribution width (RBC) [Ratio] 17.9 % High 11.8-14.4 [facility] Comment on above: Performed By: #### B MPX, MG, CDP #### [facility] [employer] [address] [place] [address] 84029 [employer]: Dwain Aldana MD Hematocrit (Bld) [Volume fraction] 27.5 % Low 36.3-47.1 [facility] Comment on above: Performed By: #### B MPX, MG, CDP #### [facility] [employer] [address] [place] [address] 10848 [employer]: Dwain Aldana MD Hemoglobin (Bld) [Mass/Vol] 8.2 g/dL Low 11.9-15.1 [facility] Comment on above: Performed By: #### B MPX, MG, CDP #### [facility] [employer] [address] [place] [address] 61988 [employer]: Dwain Aldana MD Immature granulocytes/100 WBC (Bld) 1 % High 0 [facility] Comment on above: Performed By: #### B MPX, MG, CDP #### [facility] [address] [place] [address] 53709 [employer] Clerk [employer]: Dwain Aldana MD Lymphocytes (Bld) [#/Vol] 0.92 10*3/uL Low 1.10-3.70 [facility] Comment on above: Performed By: #### B MPX, MG, CDP #### [facility] [employer] [address] [place] [address] 02542 [employer]: Dwain Aldana MD Lymphocytes/100 WBC (Bld) 13 % Low 24-43 [facility] Comment on above: Performed By: #### B MPX, MG, CDP #### [facility] [employer] [address] [place] [address] 00202 [employer]: Dwain Aldana MD MCH (RBC) [Entitic mass] 30.0 pg Normal 25.2-33.5 [facility] Comment on above: Performed By: #### B MPX, MG, CDP #### [facility] [address] [place] [address] 86618 [employer]: Dwain Aldana MD MCHC (RBC) [Mass/Vol] 29.8 g/dL Normal 28.4-34.8 [facility] Comment on above: Performed By: #### B MPX, MG, CDP #### [facility] [employer] [address] [place] [address] 77811 [employer]: Dwain Aldana MD MCV (RBC) [Entitic vol] 100.7 fL Normal 82.6-102.9 [facility] Comment on above: Performed By: #### B MPX, MG, CDP #### [facility] [employer] [address] [place] [address] 57437 [employer]: Dwain Aldana MD Monocytes (Bld) [#/Vol] 0.47 10*3/uL Normal 0.10-1.20 [facility] Comment on above: Performed By: #### B MPX, MG, CDP #### [facility] [employer] [address] [place] [address] 39735 [employer]: Dwain Aldana MD Monocytes/100 WBC (Bld) 7 % Normal 3-12 [facility] Comment on above: Performed By: #### B MPX, MG, CDP #### [facility] [employer] [address] [place] [address] 84617 [employer] Clerk [employer]: Dwain Aldana MD Neutrophil (Seg) 77 % High 36-65 [facility] Comment on above: Performed By: #### B MPX, MG, CDP #### [facility] [employer] [address] [place] [address] 74415 [employer]: Dwain Aldana MD NRBC Automated 0.0 per 100 WBC Normal 0.0 [facility] Comment on above: Performed By: #### B MPX, MG, CDP #### [address] [address] [employer] Clerk [employer]: Dwain Aldana MD Platelet Count See Reflexed IPF Result Normal 138-453 [facility] Comment on above: Performed By: #### B MPX, MG, CDP #### [address] [address] [employer] Clerk [employer]: Dwain Aldana MD RBC (Bld) [#/Vol] 2.73 10*6/uL Low 3.95-5.11 [facility] Comment on above: Performed By: #### B MPX, MG, CDP #### [address] [address] [employer]: Dwain Aldana MD RBC morphology finding Nom (Bld) ANISOCYTOSIS PRESENT Normal [facility] Comment on above: Performed By: #### B MPX, MG, CDP #### [address] [address] [employer] Clerk [employer]: Dwain Aldana MD WBC (Bld) [#/Vol] 7.2 10*3/uL Normal 3.5-11.3 [facility] Comment on above: Performed By: #### B MPX, MG, CDP #### [address] [address] [employer] Clerk [employer]: Dwain Aldana MD Magnesiumon 12-02-2023 Magnesium [Mass/Vol] 1.7 mg/dL Normal 1.6-2.4 [facility] Comment on above: Performed By: #### B MPX, MG, CDP #### [facility] [employer] [address] [place] [address] 12168 [employer]: Dwain Aldana MD Magnesium [Mass/Vol] 1.7 mg/dL 1.6 - 2 .4 mg/dL [facility] Basic Metab w/rfx MGon 11-30 Anion gap [Moles/Vol] 7 mmol/L Low 9-16 [facility] Comment on above: Performed By: #### H H #### [address] [address] [employer]: Dwain Aldana MD Calcium [Mass/Vol] 6.8 mg/dL Low 8.6-10.4 [facility] Comment on above: Performed By: #### H H #### [address] [address] [employer]: Dwain Aldana MD Chloride [Moles/Vol] 107 mmol/L Normal 98-107 [facility] Comment on above: Performed By: #### H H #### [address] [address] [employer] Clerk [employer]: Dwain Aldana MD CO2 [Moles/Vol] 23 mmol/L Normal 20-31 [facility] Comment on above: Performed By: #### H H #### [address] [address] [employer]: Dwain Aldana MD Creatinine [Mass/Vol] 0.3 mg/dL Low 0.50-0.90 [facility] Comment on above: Performed By: #### H H #### [address] [address] [employer]: Dwain Aldana MD GFR/1.73 sq M.predicted among non-blacks MDRD (S/P/Bld) [Vol rate/Area] mL/min/{1.73_m2} Normal >60 [facility] Comment on above: Result Comment: These results [...] secretion. Performed By: #### H H #### [address] [address] [employer]: Dwain Aldana MD Glucose [Mass/Vol] 79 mg/dL Normal 74-99 [facility] Comment on above: Performed By: #### H H #### [address] [address] [employer]: Dwain Aldana MD Potassium [Moles/Vol] 3.8 mmol/L Normal 3.7-5.3 [facility] Comment on above: Performed By: #### H H #### [address] [address] [employer] Clerk [employer]: Dwain Aldana MD Sodium [Moles/Vol] 137 mmol/L Normal 136-145 [facility] Comment on above: Performed By: #### H H #### [address] [address] [employer] Clerk [employer]: Dwain Aldana MD Urea nitrogen [Mass/Vol] 8 mg/dL Normal 8-23 [facility] Comment on above: Performed By: #### H H #### [address] [address] [employer] Clerk [employer]: Dwain Aldana MD Basic Metabolic Panel w/ Ref merlene to MGon 12-01-2023 Anion gap [Moles/Vol] 7 mmol/L Low 9 - 16 mmol/L [facility] [employer] Calcium [Mass/Vol] 6.8 mg/dL Low 8.6 - 10. 4 mg/dL [facility] Chloride [Moles/Vol] 107 mmol/L 98 - 10 7 mmol/L [facility] [employer] CO2 [Moles/Vol] 23 mmol/L 20 - 31 mmol/L [facility] Creatinine [Mass/Vol] 0.3 mg/dL Low 0.50 - 0.90 mg/dL [facility] [place] [facility] Comment on above: These results are [...] [Mass/Vol] 79 mg/dL 74 - 99 mg/dL [facility] Interpretation and review of laboratory results Abnormal [facility] Potassium [Moles/Vol] 3.8 mmol/L 3.7 - 5.3 mmol/L [facility] Sodium [Moles/Vol] 137 mmol/L 136 - 145 mmol/L [facility] Urea nitrogen [Mass/Vol] 8 mg/dL 8 - 23 mg/dL [facility] CBC with Auto Differentialon 12-01-2023 Basophils (Bld) [#/Vol] 0.04 10*3/uL [facility] Basophils/100 WBC (Bld) 1 % 0 - 2 % [facility] Eosinophils (Bld) [#/Vol] 0.15 10*3/uL [facility] Eosinophils/100 WBC (Bld) 2 % 1 - 4 % [facility] Erythrocyte distribution width (RBC) [Ratio] 18.8 % High 11.8 - 14.4 % [facility] Hematocrit (Bld) [Volume fraction] 22.9 % Low 36.3 - 47.1 % [facility] Hemoglobin (Bld) [Mass/Vol] 7.1 g/dL Low 11.9 - 15.1 g/dL [facility] Immature granulocytes (Bld) [#/Vol] 0.04 10*3/uL [facility] Immature granulocytes/100 WBC (Bld) 1 % High 0 [facility] Interpretation and review of laboratory results Abnormal [facility] Lymphocytes/100 WBC (Bld) 17 % Low 24 - 43 % [facility] Lymphocytes/100 WBC (Bld) 1.27 % [facility] MCH (RBC) [Entitic mass] 30.1 pg 25.2 - 33.5 pg [facility] MCHC (RBC) [Mass/Vol] 31.0 g/dL 28.4 - 34.8 g/dL [facility] MCV (RBC) [Entitic vol] 97.0 fL 82.6 - 102.9 fL [facility] Monocytes/100 WBC (Bld) 8 % 3 - 12 % [facility] Monocytes/100 WBC (Bld) 0.61 % [facility] Neutrophils/100 WBC (Bld) 72 % High 36 - 65 % [facility] Nucleated RBC/100 WBC (Bld) [Ratio] 0.0 % 0.0 per 100 WBC [facility] Platelet mean volume (Bld) [Entitic vol] 10.2 fL 8.1 - 13.5 fL [facility] Platelets (Bld) [#/Vol] 201 10*3/uL [facility] RBC (Bld) [#/Vol] 2.36 10*6/uL Low 3.95 - 5.11 m/uL [facility] RBC (Bld) [#/Vol] ANISOCYTOSIS PRESENT [facility] Segmented neutrophils/100 WBC (Bld) 5.55 % [facility] WBC other (Bld) [#/Vol] 7.7 [facility] CBC with Diffon 12-01-2023 Abs. Basophil 0.04 k/uL Normal 0.00-0.20 [facility] Comment on above: Performed By: #### H H #### [employer] [address] [place] [address] [employer] Clerk [employer]: Dwain Aldana MD Abs.Imm.Granulocyte 0.04 k/uL Normal 0.00-0.30 [facility] Comment on above: Performed By: #### H H #### [employer] [address] [place] [address] [employer] Clerk [employer]: Dwain Aldana MD Abs.Neutrophil (Seg) 5.55 k/uL Normal 1.50-8.10 [facility] Comment on above: Performed By: #### H H #### [address] [address] [employer]: Dwain Aldana MD Basophils/100 WBC (Bld) 1 % Normal 0-2 [facility] Comment on above: Performed By: #### H H #### [address] [address] [employer]: Dwain Aldana MD Eosinophils (Bld) [#/Vol] 0.15 10*3/uL Normal 0.00-0.44 [facility] Comment on above: Performed By: #### H H #### [place] [address] [employer]: Dwain Aldana MD Eosinophils/100 WBC (Bld) 2 % Normal 1-4 [facility] Comment on above: Performed By: #### H H #### [address] [address] [employer]: Dwain Aldana MD Erythrocyte distribution width (RBC) [Ratio] 18.8 % High 11.8-14.4 [facility] Comment on above: Performed By: #### H H #### [address] [address] [employer]: Dwain Aldana MD Hematocrit (Bld) [Volume fraction] 22.9 % Low 36.3-47.1 [facility] Comment on above: Performed By: #### H H #### [address] [address] [employer]: Dwain Aldana MD Hemoglobin (Bld) [Mass/Vol] 7.1 g/dL Low 11.9-15.1 [facility] Comment on above: Performed By: #### H H #### [address] [address] [employer]: Dwain Aldana MD Immature granulocytes/100 WBC (Bld) 1 % High 0 [facility] Comment on above: Performed By: #### H H #### [address] [address] [employer]: Dwain Aldana MD Lymphocytes (Bld) [#/Vol] 1.27 10*3/uL Normal 1.10-3.70 [facility] Comment on above: Performed By: #### H H #### [place] [address] [employer]: Dwain Aldana MD Lymphocytes/100 WBC (Bld) 17 % Low 24-43 [facility] Comment on above: Performed By: #### H H #### [address] [address] [employer]: Dwain lAdana MD MCH (RBC) [Entitic mass] 30.1 pg Normal 25.2-33.5 [facility] Comment on above: Performed By: #### H H #### [address] [address] [employer]: Dwain Aldana MD MCHC (RBC) [Mass/Vol] 31.0 g/dL Normal 28.4-34.8 [facility] Comment on above: Performed By: #### H H #### [address] [address] [employer]: Dwain Aldana MD MCV (RBC) [Entitic vol] 97.0 fL Normal 82.6-102.9 [facility] Comment on above: Performed By: #### H H #### [place] [address] [employer]: Dwain Aldana MD Monocytes (Bld) [#/Vol] 0.61 10*3/uL Normal 0.10-1.20 [facility] Comment on above: Performed By: #### H H #### [address] [address] [employer]: Dwain Aldana MD Monocytes/100 WBC (Bld) 8 % Normal 3-12 [facility] Comment on above: Performed By: #### H H #### [address] [address] [employer]: Dwain Aldana MD Neutrophil (Seg) 72 % High 36-65 [facility] Comment on above: Performed By: #### H H #### [address] [address] [employer]: Dwain Aldana MD NRBC Automated 0.0 per 100 WBC Normal 0.0 [facility] Comment on above: Performed By: #### H H #### [address] [address] [employer]: Dwain Aldana MD Platelet mean volume (Bld) [Entitic vol] 10.2 fL Normal 8.1-13.5 [facility] Comment on above: Performed By: #### H H #### [address] [address] [employer]: Dwain Aldana MD Platelets (Bld) [#/Vol] 201 10*3/uL Normal 138-453 [facility] Comment on above: Performed By: #### H H #### [address] [address] [employer]: Dwain Aldana MD RBC (Bld) [#/Vol] 2.36 10*6/uL Low 3.95-5.11 [facility] Comment on above: Performed By: #### H H #### [facility] [address] [place] [address] [employer] Clerk [employer]: Dwain Aldana MD RBC morphology finding Nom (Bld) ANISOCYTOSIS PRESENT Normal [facility] Comment on above: Performed By: #### H H #### [facility] [employer] [facility] [place] [address] [employer] Clerk [employer]: Dwain Aldana MD WBC (Bld) [#/Vol] 7.7 10*3/uL Normal 3.5-11.3 [facility] Comment on above: Performed By: #### H H #### [facility] [employer] [address] [place] [address] [employer]: Dwain Aldana MD Hemoglobin and Hematocriton 12-01-2023 Hematocrit (Bld) [Volume fraction] 27.1 % Low 36.3 - 47.1 % [facility] Hemoglobin (Bld) [Mass/Vol] 8.9 g/dL Low 11.9 - 15.1 g/dL [facility] Interpretation and review of laboratory results Abnormal [facility] Hematocrit (Bld) [Volume fraction] 28.7 % Low 36.3 - 47.1 % [facility] Hemoglobin (Bld) [Mass/Vol] 8.8 g/dL Low 11.9 - 15.1 g/dL [facility] Interpretation and review of laboratory results Abnormal [facility] Hgb/Hcton 12-01-2023 Hematocrit (Bld) [Volume fraction] 27.1 % Low 36.3-47.1 [facility] Comment on above: Performed By: #### T SHX, PRCAL #### [facility] [employer] [address] [place] [address] [employer]: Dwain Aldana MD Hemoglobin (Bld) [Mass/Vol] 8.9 g/dL Low 11.9-15.1 [facility] Comment on above: Performed By: #### T SHX, PRCAL #### [facility] [address] [place] [address] [phone] [employer]: Dwain Aldana MD Hematocrit (Bld) [Volume fraction] 28.7 % Low 36.3-47.1 [facility] Comment on above: Performed By: #### H H #### [facility] [address] [place] [address] [phone] [employer]: Dwain Aldana MD Hemoglobin (Bld) [Mass/Vol] 8.8 g/dL Low 11.9-15.1 [facility] Comment on above: Performed By: #### H H #### [address] [id number] [employer]: Dwain Aldana MD No Panel Informationon 11-30 Blood Bank Blood Product Expiration Date [facility] Blood Bank ISBT Product Blood Type 6200 [facility] Blood Bank Unit Type and Rh Positive [facility] Component Leukocyte Reduced Red Cell [facility] Crossmatch Result COMPATIBLE [facility] Dispense Status Blood Bank TRANSFUSED [facility] Product Code Blood Bank [id number] [facility] Transfusion Status OK TO TRANSFUSE B ON [facility] Unit Divison 0 [facility] TYPE AND SCREENon 12-01-2023 ABO/Rh Positive [facility] Arm Band Number [id number] [facility] Blood Bank Blood Product Expiration Date [id number] [facility] Blood Bank Sample Expiration 12/02/2023,2359 [facility] Blood product unit ID (Dose) [#] [id number] [facility] Blood product unit ID (Dose) [#] [id number] [facility] Blood product unit ID (Dose) [#] [id number] [facility] Unit Issue Date/Time [id number] [facility] Unit Issue Date/Time [facility] Unit Issue Date/Time [id number] [facility] Basic Metab w/rfx MGon 11-29 Anion gap [Moles/Vol] 4 mmol/L Low 9-[address] [facility] Comment on above: Performed By: #### B SWATHIX FT4, CDP #### [employer] [address] [place] [address] [id number] [employer]: Dwain Aldana MD Calcium [Mass/Vol] 6.6 mg/dL Low 8.6-10.4 [facility] Comment on above: Performed By: #### B SWATHIX FT4, CDP #### [employer] [address] [place] [address] [id number] [employer]: Dwain Aldana MD Chloride [Moles/Vol] 108 mmol/L High 98-107 [facility] Comment on above: Performed By: #### B SWATHIX FT4, CDP #### [employer] [address] [place] [address] [phone] [employer]: Dwain Aldana MD CO2 [Moles/Vol] 26 mmol/L Normal 20-31 [facility] Comment on above: Performed By: #### B SWATHIX FT4, CDP #### [employer] [address] [place] [address] [phone] [employer]: Dwain Aldana MD Creatinine [Mass/Vol] 0.4 mg/dL Low 0.50-0.90 [facility] Comment on above: Performed By: #### B SWATHIX FT4, CDP #### [employer] [address] [place] [address] [phone] [employer]: Dwain Aldana MD GFR/1.73 sq M.predicted among non-blacks MDRD (S/P/Bld) [Vol rate/Area] mL/min/{1.73_m2} Normal >60 [facility] Comment on above: Result Comment: These results [...] By: #### B MPX, FT4, CDP #### [facility] [address] [place] [address] [phone] [employer]: Dwain Aldana MD Glucose [Mass/Vol] 83 mg/dL Normal 74-99 [facility] Comment on above: Performed By: #### B MPX FT4, CDP #### [facility] [address] [place] [address] 36845 [employer]: Dwain Aldana MD Potassium [Moles/Vol] 4.4 mmol/L Normal 3.7-5.3 [facility] Comment on above: Performed By: #### B MPX FT4, CDP #### [facility] [address] [place] [address] 67449 [employer]: Dwain Aldana MD Sodium [Moles/Vol] 138 mmol/L Normal 136-145 [facility] Comment on above: Performed By: #### B MPX FT4, CDP #### [facility] [address] [place] [address] [phone] [employer]: Dwain Aldana MD Urea nitrogen [Mass/Vol] 12 mg/dL Normal 8-23 [facility] Comment on above: Performed By: #### B MPX FT4, CDP #### [facility] [address] [place] [address] 70831 [employer]: Dwain Aldana MD Basic Metabolic Panel w/ Ref merlene to MGon 11-30-2023 Anion gap [Moles/Vol] 4 mmol/L Low 9 - 16 mmol/L [facility] Calcium [Mass/Vol] 6.6 mg/dL Low 8.6 - 10. 4 mg/dL [facility] Chloride [Moles/Vol] 108 mmol/L High 98 - 10 7 mmol/L [facility] CO2 [Moles/Vol] 26 mmol/L 20 - 31 mmol/L [facility] Creatinine [Mass/Vol] 0.4 mg/dL Low 0.50 - 0.90 mg/dL [facility] [place] - [facility] Comment on above: These results are [...] [Mass/Vol] 83 mg/dL 74 - 99 mg/dL [facility] Interpretation and review of laboratory results Abnormal [facility] Potassium [Moles/Vol] 4.4 mmol/L 3.7 - 5.3 mmol/L [facility] Sodium [Moles/Vol] 138 mmol/L 136 - 145 mmol/L [facility] Urea nitrogen [Mass/Vol] 12 mg/dL 8 - 23 mg/dL [facility] CBC with Auto Differentialon 11-30-2023 Basophils (Bld) [#/Vol] 0.03 10*3/uL [facility] Basophils/100 WBC (Bld) 0 % 0 - 2 % [facility] Eosinophils (Bld) [#/Vol] 0.09 10*3/uL [facility] Eosinophils/100 WBC (Bld) 1 % 1 - 4 % [facility] Erythrocyte distribution width (RBC) [Ratio] 17.1 % High 11.8 - 14.4 % [facility] Hematocrit (Bld) [Volume fraction] 19.8 % Low 36.3 - 47.1 % [facility] Hemoglobin (Bld) [Mass/Vol] 6.2 g/dL Critically low 11.9 - 15.1 g/dL [facility] Immature granulocytes (Bld) [#/Vol] 0.06 10*3/uL [facility] Immature granulocytes/100 WBC (Bld) 1 % High 0 [facility] Interpretation and review of laboratory results Abnormal [facility] Lymphocytes/100 WBC (Bld) 19 % Low 24 - 43 % [facility] Lymphocytes/100 WBC (Bld) 1.67 % [facility] MCH (RBC) [Entitic mass] 30.7 pg 25.2 - 33.5 pg [facility] MCHC (RBC) [Mass/Vol] 31.3 g/dL 28.4 - 34.8 g/dL [facility] MCV (RBC) [Entitic vol] 98.0 fL 82.6 - 102.9 fL [facility] Monocytes/100 WBC (Bld) 8 % 3 - 12 % [facility] Monocytes/100 WBC (Bld) 0.73 % [facility] Neutrophils/100 WBC (Bld) 70 % High 36 - 65 % [facility] Nucleated RBC/100 WBC (Bld) [Ratio] 0.0 % 0.0 per 100 WBC [facility] Platelet mean volume (Bld) [Entitic vol] 10.3 fL 8.1 - 13.5 fL [facility] Platelets (Bld) [#/Vol] 171 10*3/uL [facility] RBC (Bld) [#/Vol] 2.02 10*6/uL Low 3.95 - 5.11 m/uL [facility] RBC (Bld) [#/Vol] ANISOCYTOSIS PRESENT [facility] Segmented neutrophils/100 WBC (Bld) 6.10 % [facility] WBC other (Bld) [#/Vol] 8.7 [facility] CBC with Diffon 11-30-2023 Abs. Basophil 0.03 k/uL Normal 0.00-0.20 [facility] Comment on above: Performed By: #### B MPX, FT4, CDP #### [employer] [address] [place] [address] [id number] [employer]: Dwain Aldana MD Abs.Imm.Granulocyte 0.06 k/uL Normal 0.00-0.30 [facility] Comment on above: Performed By: #### B MPX, FT4, CDP #### [facility] [employer] [address] [place] [address] 67394 [employer]: Dwain Aldana MD Abs.Neutrophil (Seg) 6.10 k/uL Normal 1.50-8.10 [facility] Comment on above: Performed By: #### B MPX, FT4, CDP #### [facility] [employer] [address] [place] [address] [id number] [employer]: Dwain Aldana MD Basophils/100 WBC (Bld) 0 % Normal 0-2 [facility] Comment on above: Performed By: #### B MPX, FT4, CDP #### [facility] [employer] [address] [place] [address] [phone] [employer]: Dwain Aldana MD Eosinophils (Bld) [#/Vol] 0.09 10*3/uL Normal 0.00-0.44 [facility] Comment on above: Performed By: #### B MPX, FT4, CDP #### [facility] [employer] [address] [place] [address] [phone] [employer]: Dwain Aldana MD Eosinophils/100 WBC (Bld) 1 % Normal 1-4 [facility] Comment on above: Performed By: #### B MPX, FT4, CDP #### [facility] [employer] [address] [place] [address] 89914 [employer]: Dwain Aldana MD Immature granulocytes/100 WBC (Bld) 1 % High 0 [facility] Comment on above: Performed By: #### B MPX, FT4, CDP #### [facility] [employer] [address] [place] [address] 87847 [employer]: Dwain Aldana MD Lymphocytes (Bld) [#/Vol] 1.67 10*3/uL Normal 1.10-3.70 [facility] Comment on above: Performed By: #### B MPX, FT4, CDP #### [address] [address] [employer]: Dwain Aldana MD Lymphocytes/100 WBC (Bld) 19 % Low 24-43 [facility] Comment on above: Performed By: #### B MPX, FT4, CDP #### [facility] [employer] [address] [place] [address] 29512 [employer]: Dwain Adlana MD Monocytes (Bld) [#/Vol] 0.73 10*3/uL Normal 0.10-1.20 [facility] Comment on above: Performed By: #### B MPX, FT4, CDP #### [address] [address] [employer]: Dwain Aldana MD Monocytes/100 WBC (Bld) 8 % Normal 3-12 [facility] Comment on above: Performed By: #### B MPX, FT4, CDP #### [facility] [employer] [address] [place] [address] 26802 [employer]: Dwain Aldana MD Neutrophil (Seg) 70 % High 36-65 [facility] Comment on above: Performed By: #### B MPX, FT4, CDP #### [facility] [employer] [address] [place] [address] 13580 [employer]: Dwain Aldana MD Erythrocyte distribution width (RBC) [Ratio] 17.1 % High 11.8-14.4 [facility] Comment on above: Performed By: #### B MPX, FT4, CDP #### [facility] [employer] [address] [place] [address] [phone] [employer]: Dwain Aldana MD Hematocrit (Bld) [Volume fraction] 19.8 % Low 36.3-47.1 [facility] Comment on above: Performed By: #### B SWATHIX FT4, CDP #### [facility] [employer] [address] [place] [address] 97045 [employer]: Dwain Aldana MD Hemoglobin (Bld) [Mass/Vol] 6.2 g/dL Critically low 11.9-15.1 [facility] Comment on above: Performed By: #### B MPX, FT4, CDP #### [facility] [employer] [address] [place] [address] [phone] [employer]: Dwain Aldana MD MCH (RBC) [Entitic mass] 30.7 pg Normal 25.2-33.5 [facility] Comment on above: Performed By: #### B SWATHIX FT4, CDP #### [address] [address] [employer] Clerk [employer]: Dwain Aldana MD MCHC (RBC) [Mass/Vol] 31.3 g/dL Normal 28.4-34.8 [facility] Comment on above: Performed By: #### B SWATHIX, FT4, CDP #### [facility] [employer] [address] [place] [address] [phone] [employer]: Dwain Aldana MD MCV (RBC) [Entitic vol] 98.0 fL Normal 82.6-102.9 [facility] Comment on above: Performed By: #### B MPX, FT4, CDP #### [facility] [employer] [address] [place] [address] 49774 [employer]: Dwain Aldana MD NRBC Automated 0.0 per 100 WBC Normal 0.0 [facility] Comment on above: Performed By: #### B MPX, FT4, CDP #### [facility] [employer] [address] [place] [address] [phone] [employer]: Dwain Aldana MD Platelet mean volume (Bld) [Entitic vol] 10.3 fL Normal 8.1-13.5 [facility] Comment on above: Performed By: #### B MPX, FT4, CDP #### [facility] [employer] [address] [place] [address] 45604 [employer]: Dwain Aldana MD Platelets (Bld) [#/Vol] 171 10*3/uL Normal 138-453 [facility] Comment on above: Performed By: #### B MPX, FT4, CDP #### [facility] [employer] [address] [place] [address] [phone] [employer]: Dwain Aldana MD RBC (Bld) [#/Vol] 2.02 10*6/uL Low 3.95-5.11 [facility] Comment on above: Performed By: #### B MPX, FT4, CDP #### [facility] [employer] [address] [place] [address] 54038 [employer]: Dwain Aldana MD RBC morphology finding Nom (Bld) ANISOCYTOSIS PRESENT Normal [facility] Comment on above: Performed By: #### B MPX, FT4, CDP #### [facility] [employer] [address] [place] [address] 62041 [employer]: Dwain Aldana MD WBC (Bld) [#/Vol] 8.7 10*3/uL Normal 3.5-11.3 [facility] Comment on above: Performed By: #### B MPX, FT4, CDP #### [facility] [employer] [address] [place] [address] [phone] [employer]: Dwain Aldana MD Calcium, Ionicon 11-30-2023 Calcium [Moles/Vol] 1.07 mmol/L Low 1.13-1.33 [facility] Comment on above: Performed By: #### B MPX, MG, CDP #### [facility] [employer] [address] [place] [address] [phone] [employer]: Dwain Aldana MD Calcium, Ionizedon 4 Calcium.ionized (Bld) [Moles/Vol] 1.07 mmol/L Low 1.13 - 1.33 mmol/L [facility] Cult, Bloodon 11-30-2023 Cult, Blood Specimen Description .BLOOD Special Requests Culture NO GROWTH 5 DAYS Report Status FINAL 11/30/2023 [facility] Comment on above: Performed By: #### B MPX, MG, CDP #### [facility] [address] [place], [place] [phone] [employer]: Dwain Aldana MD Cult,Bloodon 11-30-2023 Cult,Blood Specimen Description .BLOOD Special Requests Culture NO GROWTH 5 DAYS Report Status FINAL 11/30/2023 [facility] Comment on above: Performed By: #### B MPX, MG, CDP #### [facility] [address] [place], [place] [phone] [employer] Clerk [employer]: Dwain Aldana MD Culture, Blood 1on 4 Microorganism identified Cx Nom (Unsp spec) NO GROWTH 5 DAYS [facility] Service comment (Unsp spec) [Interp] [facility] Specimen Description .BLOOD [facility] Culture, Blood 2on 4 Microorganism identified Cx Nom (Unsp spec) NO GROWTH 5 DAYS [facility] Service comment (Unsp spec) [Interp] [facility] Specimen Description .BLOOD [facility] Glucose,Whole Bloodon 2023 Glucose [Mass/Vol] 79 mg/dL Normal 65-105 [facility] Hemoglobin and Hematocriton 11-30-2023 Hematocrit (Bld) [Volume fraction] 23.8 % Low 36.3 - 47.1 % [facility] Hemoglobin (Bld) [Mass/Vol] 7.9 g/dL Low 11.9 - 15.1 g/dL [facility] Interpretation and review of laboratory results Abnormal [facility] Hematocrit (Bld) [Volume fraction] 27.5 % Low 36.3 - 47.1 % [facility] Hemoglobin (Bld) [Mass/Vol] 8.6 g/dL Low 11.9 - 15.1 g/dL [facility] Interpretation and review of laboratory results Abnormal [facility] Hematocrit (Bld) [Volume fraction] 26.2 % Low 36.3 - 47.1 % [facility] Hemoglobin (Bld) [Mass/Vol] 8.3 g/dL Low 11.9 - 15.1 g/dL [facility] Interpretation and review of laboratory results Abnormal [facility] Hgb/Hcton 11-30-2023 Hematocrit (Bld) [Volume fraction] 23.8 % Low 36.3-47.1 [facility] Comment on above: Performed By: #### H H #### [facility] [address] [place] [address] [phone] [employer]: Dwain Aldana MD Hemoglobin (Bld) [Mass/Vol] 7.9 g/dL Low 11.9-15.1 [facility] Comment on above: Performed By: #### H H #### [employer] [address] [place] [address] [phone] [employer]: Dwain Aldana MD Hematocrit (Bld) [Volume fraction] 27.5 % Low 36.3-47.1 [facility] Comment on above: Performed By: #### B MPX, MG, CDP #### [employer] [address] [place] [address] [phone] [employer]: Dwain Aldana MD Hemoglobin (Bld) [Mass/Vol] 8.6 g/dL Low 11.9-15.1 [facility] Comment on above: Performed By: #### B MPX, MG, CDP #### [employer] [address] [place] [address] 36791 [employer]: Dwain Aldana MD Hematocrit (Bld) [Volume fraction] 26.2 % Low 36.3-47.1 [facility] Comment on above: Performed By: #### H H #### [facility] [address] [place] [address] [phone] [employer]: Dwain Aldana MD Hemoglobin (Bld) [Mass/Vol] 8.3 g/dL Low 11.9-15.1 [facility] Comment on above: Performed By: #### H H #### [facility] [address] [place] [address] 77175 [employer]: Dwain Aldana MD Lactic Acidon 11-30-2023 Lactic Acid,Whole Bl 0.6 mmol/L Low 0.7-2.1 [facility] Comment on above: Performed By: #### B MPX, MG, CDP #### [facility] [employer] [address] [place] [address] 67602 [employer]: Dwain Aldana MD Lactic Acid, Whole Blood 0.6 mmol/L Low 0.7 - 2.1 mmol/L [facility] MRSA DNA Probe, Nasalon MRSA, DNA, Nasal Negative NEGATIVE [facility] Comment on above: NEGATIVE: MRSA DNA n ot detected by nucleic acid amplification. Results should be used as an adjunct to nosocomial control efforts to identify patients needing enhanced precautions. The test is not intended to identify patients with staphylococcal infections. Results should not be used to guide or monitor treatment for MRSA infections. Specimen Description .NASAL SWAB [facility] MRSA, DNA, Nasalon MRSA, DNA, Nasal Negative Normal NEG [facility] Comment on above: Result Comment: NEGA TIVE: MRSA DNA not detected by nucleic acid amplification. Results should be used as an adjunct to nosocomial control efforts to identify patients needing enhanced precautions. The test is not intended to identify patients with staphylococcal infections. Results should not be used to guide or monitor treatment for MRSA infections. Performed By: #### M RSANO #### [facility] [employer] [address] [place] [address] [phone] [employer]: Dwain Aldana MD No Panel Informationon 11-29 Interpretation and review of laboratory results Abnormal [facility] POC Glucose Fingerstickon Glucose [Mass/Vol] 79 mg/dL 65 - 105 mg/dL [facility] PREVIOUS SPECIMENon 11-30-19 24 [facility] Procalcitoninon 11-30-2023 Procalcitonin 0.05 ng/mL Normal <0.09 [facility] Comment on above: Result Comment: Suspected Sepsis: [...] entered into the Change in Procalcitonin Calculator ([email or web address]) to determine the patient's Mortality Risk Prognosis In healthy neonates, plasma Procalcitonin (PCT) concentrations increase gradually after , reaching peak values at about 24 hours of age then decrease to normal values below 0.5 ng/mL by 48-72 hours of age. Performed By: #### T SHX, PRCAL #### [employer] [address], [place] [phone] [employer]: Dwain Aldana MD Specimen Rejectionon 024 Reason for rejection Unable to perform t esting: Specimen clotted. Normal [facility] Comment on above: Performed By: #### H H #### [employer] [address], [place] [phone] [employer]: Dwain Aldana MD Source of sample .BLOOD Normal [facility] Comment on above: Performed By: #### H H #### [employer] [address] [place] [address] [phone] [employer]: Dwain Aldana MD Test ordered [facility] Comment on above: Performed By: #### H H #### [employer] [address] [place] [address] [phone] [employer]: Dwain Aldana MD T4, Freeon 11-30-2023 Free T4 [Mass/Vol] 1.3 ng/dL 0.92 - 1.68 ng/dL [facility] Thyroxine, Freeon 11-30-2023 Thyroxine, Free 1.3 ng/dL Normal 0.92-1.68 [facility] Comment on above: Performed By: #### B MPX, MG, CDP #### [facility] [address] [place] [address] [phone] [employer]: Dwain Aldana MD Type + Screenon 11-30-2023 Type + Screen Sample Expiration 12/02/2023,2359 Arm Band Number [id number] ABO/Rh(D) A POSITIVE Antibody Screen NEGATIVE Unit Number [id number] Blood Component Type Leukocyte Reduced Red Cell Unit Division 00 Status of Unit TRANSFUSED Transfusion Status OK TO TRANSFUSE Crossmatch Result COMPATIBLE Unit Number [id number] Blood Component Type Leukocyte Reduced Red Cell Unit Division 00 Status of Unit TRANSFUSED Transfusion Status OK TO TRANSFUSE Crossmatch Result COMPATIBLE Unit Number [id number] Blood Component Type Leukocyte Reduced Red Cell Unit Division 00 Status of Unit TRANSFUSED Transfusion Status OK TO TRANSFUSE Crossmatch Result COMPATIBLE [facility] Comment on above: Performed By: #### H H #### [facility] [employer] [address] [place] [address] [phone] [employer]: Dwain Aldana MD BLOOD BANK SPECIMENon 2023 [facility] Basic Metab w/rfx MGon 11-28 Anion gap [Moles/Vol] 9 mmol/L Normal 9-16 [facility] Comment on above: Performed By: #### B MPX, MG, CDP #### [facility] [address] [place] [address] [id number] [employer]: Dwain Aldana MD Calcium [Mass/Vol] 6.7 mg/dL Low 8.6-10.4 [facility] Comment on above: Performed By: #### B MPX, MG, CDP #### [facility] [address] [place] [address] [phone] [employer]: Dwain Aldana MD Chloride [Moles/Vol] 103 mmol/L Normal 98-107 [facility] Comment on above: Performed By: #### B MPX, MG, CDP #### [facility] [address] [place] [address] [phone] [employer]: Dwain Aldana MD CO2 [Moles/Vol] 23 mmol/L Normal 20-31 [facility] Comment on above: Performed By: #### B MPX, MG, CDP #### [facility] [employer] [address] [place] [address] [phone] [employer]: Dwain Aldana MD Creatinine [Mass/Vol] 0.4 mg/dL Low 0.50-0.90 [facility] Comment on above: Performed By: #### B MPX, MG, CDP #### [facility] [employer] [address] [place] [address] [phone] [employer]: Dwain Aldana MD GFR/1.73 sq M.predicted among non-blacks MDRD (S/P/Bld) [Vol rate/Area] mL/min/{1.73_m2} Normal >60 [facility] Comment on above: Result Comment: These results [...] By: #### B ALEKS MG, CDP #### [facility] [address] [place] [address] [phone] [employer]: Dwain Aldana MD Glucose [Mass/Vol] 210 mg/dL High 74-99 [facility] Comment on above: Performed By: #### B MPX MG, CDP #### [facility] [address] [place] [address] [phone] [employer]: Dwain Aldana MD Potassium [Moles/Vol] 3.3 mmol/L Low 3.7-5.3 [facility] Comment on above: Performed By: #### B ALEKS MG, CDP #### [employer] [address] [place] [address] [phone] [employer]: Dwain Aldana MD Sodium [Moles/Vol] 135 mmol/L Low 136-145 [facility] Comment on above: Performed By: #### B ALEKS MG, CDP #### [facility] [address] [place] [address] [phone] [employer]: Dwain Aldana MD Urea nitrogen [Mass/Vol] 9 mg/dL Normal 8-23 [facility] Comment on above: Performed By: #### B SWATHIX MG, CDP #### [facility] [address] [place] [address] [phone] [employer]: Dwain Aldana MD Basic Metabolic Panel w/ Ref melrene to MGon 11-29-2023 Anion gap [Moles/Vol] 9 mmol/L 9 - 16 mmol/L [facility] Calcium [Mass/Vol] 6.7 mg/dL Low 8.6 - 10. 4 mg/dL [facility] Chloride [Moles/Vol] 103 mmol/L 98 - 10 7 mmol/L [facility] CO2 [Moles/Vol] 23 mmol/L 20 - 31 mmol/L [facility] Creatinine [Mass/Vol] 0.4 mg/dL Low 0.50 - 0.90 mg/dL [facility] [place] Rate - [facility] Comment on above: These results are [...] 210 mg/dL High 74 - 99 mg/dL [facility] Interpretation and review of laboratory results Abnormal [facility] Potassium [Moles/Vol] 3.3 mmol/L Low 3.7 - 5.3 mmol/L [facility] Sodium [Moles/Vol] 135 mmol/L Low 136 - 145 mmol/L [facility] Urea nitrogen [Mass/Vol] 9 mg/dL 8 - 23 mg/dL [facility] CBC with Auto Differentialon 11-29-2023 Basophils (Bld) [#/Vol] 0.03 10*3/uL [facility] Basophils/100 WBC (Bld) 0 % 0 - 2 % [facility] Eosinophils (Bld) [#/Vol] 0.04 10*3/uL [facility] Eosinophils/100 WBC (Bld) 0 % Low 1 - 4 % [facility] Erythrocyte distribution width (RBC) [Ratio] 19.0 % High 11.8 - 14.4 % [facility] Hematocrit (Bld) [Volume fraction] 20.7 % Low 36.3 - 47.1 % [facility] Hemoglobin (Bld) [Mass/Vol] 6.2 g/dL Critically low 11.9 - 15.1 g/dL [facility] Immature granulocytes (Bld) [#/Vol] 0.07 10*3/uL [facility] Immature granulocytes/100 WBC (Bld) 1 % High 0 [facility] Interpretation and review of laboratory results Abnormal [facility] Lymphocytes/100 WBC (Bld) 7 % Low 24 - 43 % [facility] Lymphocytes/100 WBC (Bld) 0.79 % Low [facility] MCH (RBC) [Entitic mass] 30.7 pg 25.2 - 33.5 pg [facility] MCHC (RBC) [Mass/Vol] 30.0 g/dL 28.4 - 34.8 g/dL [facility] MCV (RBC) [Entitic vol] 102.5 fL 82.6 - 102.9 fL [facility] Monocytes/100 WBC (Bld) 4 % 3 - 12 % [facility] Monocytes/100 WBC (Bld) 0.53 % [facility] Neutrophils/100 WBC (Bld) 88 % High 36 - 65 % [facility] Nucleated RBC/100 WBC (Bld) [Ratio] 0.0 % 0.0 per 100 WBC [facility] Platelet mean volume (Bld) [Entitic vol] 10.8 fL 8.1 - 13.5 fL [facility] Platelets (Bld) [#/Vol] 245 10*3/uL [facility] RBC (Bld) [#/Vol] 2.02 10*6/uL Low 3.95 - 5.11 m/uL [facility] RBC (Bld) [#/Vol] ANISOCYTOSIS PRESENT [facility] Segmented neutrophils/100 WBC (Bld) 10.71 % High [facility] WBC other (Bld) [#/Vol] 12.2 High [facility] CBC with Diffon 11-29-2023 Abs. Basophil 0.03 k/uL Normal 0.00-0.20 [facility] Comment on above: Performed By: #### B ALEKS MG, CDP #### [employer] [facility] [place] [address] Contract Clerk Automobile: Dwain Aldana MD Abs.Imm.Granulocyte 0.07 k/uL Normal 0.00-0.30 [facility] Comment on above: Performed By: #### B MPX, MG, CDP #### [facility] [address] [place] [address] [employer] Clerk [employer]: Dwain Aldana MD Abs.Neutrophil (Seg) 10.71 k/uL High 1.50-8.10 [facility] Comment on above: Performed By: #### B MPX, MG, CDP #### [facility] [address] [place] [address] Contract Clerk [employer]obile: Dwain Aldana MD Basophils/100 WBC (Bld) 0 % Normal 0-2 [facility] Comment on above: Performed By: #### B MPX, MG, CDP #### [facility] [employer] [address] [place] [address] [employer] Clerk [employer]: Dwain Aldana MD Eosinophils (Bld) [#/Vol] 0.04 10*3/uL Normal 0.00-0.44 [facility] Comment on above: Performed By: #### B MPX, MG, CDP #### [facility] [employer] [address] [place] [address] [employer] Clerk [employer]: Dwain Aldana MD Eosinophils/100 WBC (Bld) 0 % Low 1-4 [facility] Comment on above: Performed By: #### B MPX, MG, CDP #### [facility] [employer] [address] [place] [address] [employer] Clerk [employer]: Dwain Aldana MD Erythrocyte distribution width (RBC) [Ratio] 19.0 % High 11.8-14.4 [facility] Comment on above: Performed By: #### B MPX, MG, CDP #### [facility] [employer] [address] [place] [address] [employer] Clerk [employer]: Dwain Aldana MD Hematocrit (Bld) [Volume fraction] 20.7 % Low 36.3-47.1 [facility] Comment on above: Performed By: #### B MPX, MG, CDP #### [address] [address] Contract Clerk [employer]: Dwain Aldana MD Hemoglobin (Bld) [Mass/Vol] 6.2 g/dL Critically low 11.9-15.1 [facility] Comment on above: Performed By: #### B MPX, MG, CDP #### [facility] [employer] [address] [place] [address] [employer] Clerk [employer]: Dwain Aldana MD Immature granulocytes/100 WBC (Bld) 1 % High 0 [facility] Comment on above: Performed By: #### B MPX, MG, CDP #### [address] [address] [employer] Clerk [employer]: Dwain Aldana MD Lymphocytes (Bld) [#/Vol] 0.79 10*3/uL Low 1.10-3.70 [facility] Comment on above: Performed By: #### B MPX, MG, CDP #### [address] [address] [employer] Clerk [employer]: Dwain Aldana MD Lymphocytes/100 WBC (Bld) 7 % Low 24-43 [facility] Comment on above: Performed By: #### B MPX, MG, CDP #### [facility] [employer] [address] [place] [address] [employer] Clerk [employer]: Dwain Aldana MD MCH (RBC) [Entitic mass] 30.7 pg Normal 25.2-33.5 [facility] Comment on above: Performed By: #### B MPX, MG, CDP #### [facility] [employer] [address] [place] [address] [employer] Clerk [employer]: Dwain Aldana MD MCHC (RBC) [Mass/Vol] 30.0 g/dL Normal 28.4-34.8 [facility] Comment on above: Performed By: #### B MPX, MG, CDP #### [address] [address] Contract Clerk [employer]obile: Dwain Aldana MD MCV (RBC) [Entitic vol] 102.5 fL Normal 82.6-102.9 [facility] Comment on above: Performed By: #### B MPX, MG, CDP #### [address] [address] Contract Clerk [employer]obile: Dwain Aldana MD Monocytes (Bld) [#/Vol] 0.53 10*3/uL Normal 0.10-1.20 [facility] Comment on above: Performed By: #### B MPX, MG, CDP #### [address] [address] Contract Clerk [employer]: Dwain Aldana MD Monocytes/100 WBC (Bld) 4 % Normal 3-12 [facility] Comment on above: Performed By: #### B MPX, MG, CDP #### [address] [address] Contract Clerk [employer]: Dwain Aldana MD Neutrophil (Seg) 88 % High 36-65 [facility] Comment on above: Performed By: #### B MPX, MG, CDP #### [address] [address] Contract Clerk [employer]obile: Dwain Aldana MD NRBC Automated 0.0 per 100 WBC Normal 0.0 [facility] Comment on above: Performed By: #### B MPX, MG, CDP #### [facility] [employer] [address] [place] [address] Contract Clerk [employer]obile: Dwain Aldana MD Platelet mean volume (Bld) [Entitic vol] 10.8 fL Normal 8.1-13.5 [facility] Comment on above: Performed By: #### B MPX, MG, CDP #### [address] [address] Contract Clerk [employer]obile: Dwain Aldana MD Platelets (Bld) [#/Vol] 245 10*3/uL Normal 138-453 [facility] Comment on above: Performed By: #### B MPX, MG, CDP #### [facility] [address] [place] [address] Contract Clerk Automobile: Dwain Aldana MD RBC (Bld) [#/Vol] 2.02 10*6/uL Low 3.95-5.11 [facility] Comment on above: Performed By: #### B MPX, MG, CDP #### [facility] [address] [place] [address] Contract Clerk [employer]: Dwain Aldana MD RBC morphology finding Nom (Bld) ANISOCYTOSIS PRESENT Normal [facility] Comment on above: Performed By: #### B MPX, MG, CDP #### [facility] [address] [place] [address] Contract Clerk [employer]: Dwain Aldana MD WBC (Bld) [#/Vol] 12.2 10*3/uL High 3.5-11.3 [facility] Comment on above: Performed By: #### B MPX, MG, CDP #### [facility] [employer] [address] [place] [address] Contract Clerk Automobile: Dwain Aldana MD CT SINUS WO CONTRASTon [...] Ion Leon MD 11/29/23 Final result Normal [facility] CT Sinuses WO contraston Chronic sinusitis involving the left maxillary sinus. Potential remote posttraumatic change of the left inferior orbital wall and correlation is needed. [facility] EXAMINATION: CT OF THE SINUS WITHOUT [...] demonstrate no gross acute abnormality. [facility] Ion Leon MD - 11/29/2023 EXAMINATION: [...] inferior orbital wall and correlation is needed. [facility] Radiology Study observation (narrative) [facility] CTA ABDOMEN PELVIS W WO CONT Aryan 11-29-2023 CTA ABDOMEN PELVIS W WO CONTRAST [...] Shagufta Echevarria DO 11/29/23 Final result Normal [facility] CTA Abdominal vessels and Pe lvis vessels [...] its branches without evidence of flow-limiting stenosis. [facility] Radiology Study observation (narrative) [facility] CTA Abdominal vessels and Pe lvis vessels WO and W contrast IVOrdered By: Shagufta Echevarria on 11-29-2023 [facility] Work Phone: Hemoglobin and Hematocriton 11-29-2023 Hematocrit (Bld) [Volume fraction] 23.5 % Low 36.3 - 47.1 % [facility] Hemoglobin (Bld) [Mass/Vol] 7.8 g/dL Low 11.9 - 15.1 g/dL [facility] Interpretation and review of laboratory results Abnormal [facility] Hematocrit (Bld) [Volume fraction] 18.8 % Low 36.3 - 47.1 % [facility] Hemoglobin (Bld) [Mass/Vol] 6.0 g/dL Critically low 11.9 - 15.1 g/dL [facility] Interpretation and review of laboratory results Abnormal [facility] Hepatic Function Panelon Albumin [Mass/Vol] 2.1 g/dL Low 3.5 - 5.2 g/dL [facility] Albumin/Globulin [Mass ratio] 2.0 {ratio} 1.0 - 2.5 [facility] ALP [Catalytic activity/Vol] 45 U/L 35 - 104 U/L [facility] ALT [Catalytic activity/Vol] 19 U/L 10 - 35 U/L [facility] AST [Catalytic activity/Vol] 27 U/L 10 - 35 U/L [facility] Bilirubin [Mass/Vol] mg/dL 0.00 - 1.20 mg/dL [facility] Bilirubin.direct [Mass/Vol] mg/dL 0.00 - 0.30 mg/dL [facility] Bilirubin.indirect [Mass/Vol] Can not be calculated 0.0 - 1.0 mg/dL [facility] Globulin (S) [Mass/Vol] 1.4 g/dL [facility] Interpretation and review of laboratory results Abnormal [facility] Protein [Mass/Vol] 3.5 g/dL Low 6.6 - 8.7 g/dL [facility] Hgb/Hcton 11-29-2023 Hematocrit (Bld) [Volume fraction] 23.5 % Low 36.3-47.1 [facility] Comment on above: Performed By: #### H H #### [employer] [facility] [place] [phone] Contract Clerk Automobile: Dwain Aldana MD Hemoglobin (Bld) [Mass/Vol] 7.8 g/dL Low 11.9-15.1 [facility] Comment on above: Performed By: #### H H #### [employer] [address] [place] [address] [phone] Contract Clerk [employer]obile: Dwain Aldana MD Hematocrit (Bld) [Volume fraction] 18.8 % Low 36.3-47.1 [facility] Comment on above: Performed By: #### H H #### [facility] [employer] [address] [place] [address] Contract Clerk [employer]: Dwain Aldana MD Hemoglobin (Bld) [Mass/Vol] 6.0 g/dL Critically low 11.9-15.1 [facility] Comment on above: Performed By: #### H H #### [facility] [employer] [address] [place] [address] Contract Clerk [employer]: Dwain Aldana MD Liver Profileon 11-29-2023 Albumin [Mass/Vol] 2.1 g/dL Low 3.5-5.2 [facility] Comment on above: Performed By: #### B MPX, MG, CDP #### [facility] [address] [place] [address] Contract Clerk [employer]: Dwain Aldana MD Albumin/Glob Ratio 2.0 Normal 1.0-2.5 [facility] Comment on above: Performed By: #### B MPX, MG, CDP #### [facility] [address] [place] [address] Contract Clerk [employer]: Dwain Aldana MD Alkaline Phos 45 U/L Normal 35-104 [facility] Comment on above: Performed By: #### B MPX, MG, CDP #### [facility] [address] [place] [address] Contract Clerk [employer]: Dwain Aldana MD ALT [Catalytic activity/Vol] 19 U/L Normal 10-35 [facility] Comment on above: Performed By: #### B MPX, MG, CDP #### [facility] [address] [place] [address] Contract Clerk [employer]: Dwain Aldana MD AST [Catalytic activity/Vol] 27 U/L Normal 10-35 [facility] Comment on above: Performed By: #### B MPX, MG, CDP #### [employer] [place] [address] Contract Clerk [employer]: Dwain Aldana MD Bilirubin [Mass/Vol] mg/dL Normal 0.00-1.20 [facility] Comment on above: Performed By: #### B MPX, MG, CDP #### [facility] [address] [place] [address] Contract Clerk [employer]: Dwain Aldana MD Bilirubin, Indirect Can not be calculated Normal 0.0-1 .0 [facility] Comment on above: Performed By: #### B MPX, MG, CDP #### [facility] [address] [place] [address] Contract Clerk [employer]: Dwain Aldana MD Bilirubin.indirect [Mass/Vol] mg/dL Normal 0.00-0.30 [facility] Comment on above: Performed By: #### B MPX, MG, CDP #### [facility] [address] [place] [address] [employer] Clerk [employer]: Dwain Aldana MD Globulin (S) [Mass/Vol] 1.4 g/dL Normal [facility] Comment on above: Performed By: #### B MPX, MG, CDP #### [facility] [employer] [address] [place] [address] Contract Clerk [employer]: Dwain Aldana MD Protein [Mass/Vol] 3.5 g/dL Low 6.6-8.7 [facility] Comment on above: Performed By: #### B MPX, MG, CDP #### [facility] [employer] [address] [place] [address] [employer] Clerk [employer]: Dwain Aldana MD MRSA, DNA, Nasalon 4 Specimen Description .NASAL SWAB Normal [facility] Comment on above: Performed By: #### M RSANO #### [facility] [employer] [address] [place] [address] Contract Clerk [employer]: Dwain Aldana MD Magnesiumon 11-29-2023 Magnesium [Mass/Vol] 1.7 mg/dL Normal 1.6-2.4 [facility] Comment on above: Performed By: #### B MPX, MG, CDP #### [facility] [address] [place], [place] [phone] Contract Clerk Automobile: Dwain Aldana MD Magnesium [Mass/Vol] 1.7 mg/dL 1.6 - 2 .4 mg/dL [facility] PREVIOUS SPECIMENon 11-29-19 24 [facility] Procalcitoninon 11-29-2023 Procalcitonin [Mass/Vol] 0.05 ng/mL NINF - 0.09 ng/mL [facility] Comment on above: Suspected Sepsis: [...] entered into the Change in Procalcitonin Calculator ([email or web address]) to determine the patient's Mortality Risk Prognosis In healthy neonates, plasma Procalcitonin (PCT) concentrations increase gradually after , reaching peak values at about 24 hours of age then decrease to normal values below 0.5 ng/mL by 48-72 hours of age. [facility] Specimen Rejectionon 024 Reason for rejection Unable to perform t esting: Specimen quantity not sufficient. Normal [facility] Comment on above: Performed By: #### T SHX, PRCAL #### [facility] [address] [place] [address] Contract Clerk Automobile: Dwain Aldana MD Source of sample .BLOOD Normal [facility] Comment on above: Performed By: #### HARSH DAVIS #### [facility] [address] [place] [address] [phone] Contract Clerk [employer]obile: Dwain Aldana MD Test ordered [facility] Comment on above: Performed By: #### HARSH DAVIS #### [facility] [address] [place] [address] [phone] Contract Clerk [employer]obile: Dwain Aldana MD TSH w/reflex to FT4on 2023 Thyroid Stim. Horm. 9.13 uIU/mL High 0.27-4.20 [facility] Comment on above: Performed By: #### Patti PENA PRCJF #### [address] [phone] Contract Clerk [employer]: Dwain Aldana MD TSH with Reflexon 11-29-2023 Interpretation and review of laboratory results Abnormal [facility] TSH Qn 9.13 m[IU]/L High [facility] Basic Metab w/rfx MGon 11-27 Anion gap [Moles/Vol] 9 mmol/L Normal 9-16 [facility] Comment on above: Performed By: #### Patti PENA PRCJF #### [facility] [employer] [address] [place] [address] [phone] Contract Clerk [employer]: Dwain Aldana MD Calcium [Mass/Vol] 6.4 mg/dL Low 8.6-10.4 [facility] Comment on above: Performed By: #### HARSH DAVIS #### [facility] [employer] [address] [place] [address] [phone] Contract Clerk [employer]: Dwain Aldana MD Chloride [Moles/Vol] 105 mmol/L Normal 98-107 [facility] Comment on above: Performed By: #### HARSH DAVIS #### [employer] [address] [place] [address] Contract Clerk [employer]: Dwain Aldana MD CO2 [Moles/Vol] 21 mmol/L Normal 20-31 [facility] Comment on above: Performed By: #### T JEAN PRCAL #### [address] [address] Contract Clerk [employer]: Dwain Aldana MD Creatinine [Mass/Vol] 0.3 mg/dL Low 0.50-0.90 [facility] Comment on above: Performed By: #### T JEAN PRCAL #### [address] [address] Contract Clerk [employer]: Dwain Aldana MD GFR/1.73 sq M.predicted among non-blacks MDRD (S/P/Bld) [Vol rate/Area] mL/min/{1.73_m2} Normal >60 [facility] Comment on above: Result Comment: These results [...] renal tubular secretion. Performed By: #### T JENA PRCAL #### [address] [address] [employer] Clerk [employer]: Dwain Aldana MD Glucose [Mass/Vol] 88 mg/dL Normal 74-99 [facility] Comment on above: Performed By: #### T JEAN PRCAL #### [address] [address] Contract Clerk [employer]: Dwain Aldana MD Potassium [Moles/Vol] 3.7 mmol/L Normal 3.7-5.3 [facility] Comment on above: Performed By: #### T JEAN PRCAL #### [facility] [address] [place], [place] [phone] Contract Clerk Automobile: Dwain Aldana MD Sodium [Moles/Vol] 135 mmol/L Low 136-145 [facility] Comment on above: Performed By: #### Patti PENA, PRCAL #### [facility] [address] [place], [place] [phone] Contract Clerk [employer]obile: Dwain Aldana MD Urea nitrogen [Mass/Vol] 10 mg/dL Normal 8-23 [facility] Comment on above: Performed By: #### Patti PENA PRCAL #### [employer] [address] [place], [place] [phone] Contract Clerk Automobile: Dwain Aldana MD Basic Metabolic Panel w/ Ref merlene to MGon 11-28-2023 Anion gap [Moles/Vol] 9 mmol/L 9 - 16 mmol/L [employer] Calcium [Mass/Vol] 6.4 mg/dL Low 8.6 - 10. 4 mg/dL [facility] Chloride [Moles/Vol] 105 mmol/L 98 - 10 7 mmol/L [employer] [facility] CO2 [Moles/Vol] 21 mmol/L 20 - 31 mmol/L [facility] [facility] Creatinine [Mass/Vol] 0.3 mg/dL Low 0.50 - 0.90 mg/dL [facility] [employer] Est, Glom Filt Rate - PINF [facility] [employer] Comment on above: These results are not [...] [Mass/Vol] 88 mg/dL 74 - 99 mg/dL [employer] Interpretation and review of laboratory results Abnormal [employer] [facility] Potassium [Moles/Vol] 3.7 mmol/L 3.7 - 5.3 mmol/L [facility] Sodium [Moles/Vol] 135 mmol/L Low 136 - 145 mmol/L [facility] Urea nitrogen [Mass/Vol] 10 mg/dL 8 - 23 mg/dL [facility] Hgb/Hcton 11-28-2023 Hematocrit (Bld) [Volume fraction] 24.0 % Low 36.3-47.1 [facility] Comment on above: Performed By: #### H H #### [employer] [address] [place], [place] [phone] Contract Clerk Automobile: Dwain Aldana MD Hemoglobin (Bld) [Mass/Vol] 7.5 g/dL Low 11.9-15.1 [facility] Comment on above: Performed By: #### H H #### [employer] [address] [place], [place] [phone] Contract Clerk [employer]obile: Dwain Aldana MD IR EMBOLIZATION HEMORRHAGEon 11-28-2023 Contrast extravasati on via truncated duodenal side-branch GDA with successful coil embolization, as above. [facility] Jorge Russo MD - 11/28/2023 PROCEDURE: IR EMBOLIZATION VASCULAR ANY HEMORRHAGE 11/27/2023 HISTORY: ORDERING SYSTEM PROVIDED HISTORY: Embolization of GDA/GI bleed TECHNOLOGIST PROVIDED HISTORY: Embolization of GDA/GI bleed CONTRAST: Isovue 370-110 mL SEDATION: Fentanyl 50 mcg IV for discomfort. Medications were provided and recorded by Radiology nurses. FLUOROSCOPY DOSE AND TYPE: Fluoroscopy time-15.7 minutes. Radiation Exposure Index: DAP cGy*m2, 37084 DESCRIPTION OF PROCEDURE: Arteries interrogated: Celiac, GDA, [...] for a 0.035 inch wire and 5 Lao introducer sheath. Randal 5 Lao x 65 cm catheter was introduced and the celiac artery catheterize; hand celiac angiography was performed. A 0.035 inch glidewire was manipulated into the distal hepatic arteries, catheter exchanged for a 5 Lao Cobra glide catheter which was manipulated into the origin GDA. Digital angiography was then performed. Textá[employer] delivery microcatheter 45 degree tip was then [...] removed. Subsequent hand injection via the 5 Lao catheter the proper hepatic was performed. The guide catheter was removed, and the Randal catheter reinserted. Celiac and SMA digital angiography were then performed. The Randal catheter was removed. Hand digital angiography right iliofemoral vessels was performed at the groin. 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 The patient tolerated procedure well and there [...] or site of bleeding identified. Normal right AUT[employer] TOP MECHANIC entry site pre closure device placement. 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 [facility] IR EMBOLIZATION HEMORRHAGEOr dered By: Jorge Russo on 11-28-2023 [facility] Work Phone: No Panel Informationon 11-27 Blood Bank Blood Product Expiration Date [facility] Blood Bank ISBT Product Blood Type 6200 [facility] Blood Bank Unit Type and Rh Positive [facility] Component Leukocyte Reduced Red Cell [facility] Crossmatch Result COMPATIBLE [facility] Dispense Status Blood Bank TRANSFUSED [facility] Product Code Blood Bank [id number] [facility] Transfusion Status OK TO TRANSFUSE B ON [facility] Unit Divison 0 [facility] TYPE AND SCREENon 11-28-2023 ABO/Rh Positive [facility] Arm Band Number [id number] [facility] Blood Bank Blood Product Expiration Date [facility] Blood Bank Sample Expiration 11/28/2023,2359 [facility] Blood product unit ID (Dose) [#] [id number] [facility] Blood product unit ID (Dose) [#] [id number] [facility] Blood product unit ID (Dose) [#] [id number] [facility] Unit Issue Date/Time [facility] N [facility] Unit Issue Date/Time [facility] Unit Issue Date/Time [facility] Type + Screenon 11-28-2023 Type + Screen Sample Expiration 11/28/2023,2359 Arm Band Number [id number] ABO/Rh(D) A POSITIVE Antibody Screen NEGATIVE Unit Number [id number] Blood Component Type Leukocyte Reduced Red Cell Unit Division 00 Status of Unit TRANSFUSED Transfusion Status OK TO TRANSFUSE Crossmatch Result COMPATIBLE Unit Number [id number] Blood Component Type Leukocyte Reduced Red Cell Unit Division 00 Status of Unit TRANSFUSED Transfusion Status OK TO TRANSFUSE Crossmatch Result COMPATIBLE Unit Number [id number] Blood Component Type Leukocyte Reduced Red Cell Unit Division 00 Status of Unit TRANSFUSED Transfusion Status OK TO TRANSFUSE Crossmatch Result COMPATIBLE Normal [facility] Comment on above: Performed By: #### H H #### [employer] [address] [place] [id number] [employer] Clerk [employer]: Dwain Aldaan MD Basic Metab w/rfx MGon 11-26 Anion gap [Moles/Vol] 7 mmol/L Low 9-16 [facility] Comment on above: Performed By: #### B MPX, MG, CDP #### [facility] [employer] [address] [place] [address] [employer] Clerk [employer]: Dwain Aldana MD Calcium [Mass/Vol] 6.3 mg/dL Low 8.6-10.4 [facility] Comment on above: Performed By: #### B MPX, MG, CDP #### [facility] [employer] [address] [place] [address] 85164 [employer] Clerk [employer]: Dwain Aldana MD Chloride [Moles/Vol] 105 mmol/L Normal 98-107 [facility] Comment on above: Performed By: #### B MPX, MG, CDP #### [facility] [employer] [address] [place] [address] 77840 [employer] Clerk [employer]: Dwain Aldana MD CO2 [Moles/Vol] 22 mmol/L Normal 20-31 [facility] Comment on above: Performed By: #### B MPX, MG, CDP #### [facility] [employer] [address] [place] [address] 58038 Contract Clerk [employer]: Dwain Aldana MD Creatinine [Mass/Vol] 0.4 mg/dL Low 0.50-0.90 [facility] Comment on above: Performed By: #### B MPX, MG, CDP #### [facility] [address] [place] [address] 28323 Contract Clerk [employer]: Dwain Aldana MD GFR/1.73 sq M.predicted among non-blacks MDRD (S/P/Bld) [Vol rate/Area] mL/min/{1.73_m2} Normal >60 [facility] Comment on above: Result Comment: These results [...] By: #### B MPX MG, CDP #### [facility] [address] [place] [address] 79221 [employer] Clerk [employer]: Dwain Aldana MD Glucose [Mass/Vol] 83 mg/dL Normal 74-99 [facility] Comment on above: Performed By: #### B MPX MG, CDP #### [facility] [employer] [address] [place] [address] 26701 Contract Clerk [employer]: Dwain Aldana MD Potassium [Moles/Vol] 3.4 mmol/L Low 3.7-5.3 [facility] Comment on above: Performed By: #### B MPX MG, CDP #### [facility] [address] [place] [address] 10374 Contract Clerk [employer]: Dwain Aldana MD Sodium [Moles/Vol] 134 mmol/L Low 136-145 [facility] Comment on above: Performed By: #### B MPX MG, CDP #### [facility] [employer] [address] [place] [address] 59310 Contract Clerk [employer]: Dwain Aldana MD Urea nitrogen [Mass/Vol] 7 mg/dL Low 8-23 [facility] Comment on above: Performed By: #### B MPX MG, CDP #### [facility] [address] [place] [address] 45741 Contract Clerk [employer]: Dwain Aldana MD Basic Metabolic Panel w/ Ref merlene to MGon 11-27-2023 Anion gap [Moles/Vol] 7 mmol/L Low 9 - 16 mmol/L [facility] Calcium [Mass/Vol] 6.3 mg/dL Low 8.6 - 10. 4 mg/dL [facility] Chloride [Moles/Vol] 105 mmol/L 98 - 10 7 mmol/L [facility] CO2 [Moles/Vol] 22 mmol/L 20 - 31 mmol/L [facility] Creatinine [Mass/Vol] 0.4 mg/dL Low 0.50 - 0.90 mg/dL [facility] [place] [facility] Comment on above: These results are [...] [Mass/Vol] 83 mg/dL 74 - 99 mg/dL [facility] Interpretation and review of laboratory results Abnormal [facility] Potassium [Moles/Vol] 3.4 mmol/L Low 3.7 - 5.3 mmol/L [facility] Sodium [Moles/Vol] 134 mmol/L Low 136 - 145 mmol/L [facility] Urea nitrogen [Mass/Vol] 7 mg/dL Low 8 - 23 mg/dL [facility] Hemoglobin and Hematocriton 11-27-2023 Hematocrit (Bld) [Volume fraction] 17.9 % Low 36.3 - 47.1 % [facility] Hemoglobin (Bld) [Mass/Vol] 5.7 g/dL Critically low 11.9 - 15.1 g/dL [facility] Interpretation and review of laboratory results Abnormal [facility] Hematocrit (Bld) [Volume fraction] 18.0 % Low 36.3 - 47.1 % [facility] Hemoglobin (Bld) [Mass/Vol] 5.9 g/dL Critically low 11.9 - 15.1 g/dL [facility] Interpretation and review of laboratory results Abnormal [facility] Hematocrit (Bld) [Volume fraction] 23.0 % Low 36.3 - 47.1 % [facility] Hemoglobin (Bld) [Mass/Vol] 7.2 g/dL Low 11.9 - 15.1 g/dL [facility] Interpretation and review of laboratory results Abnormal [facility] Hematocrit (Bld) [Volume fraction] 22.0 % Low 36.3 - 47.1 % [facility] Hemoglobin (Bld) [Mass/Vol] 7.2 g/dL Low 11.9 - 15.1 g/dL [facility] Interpretation and review of laboratory results Abnormal [facility] Hgb/Hcton 11-27-2023 Hematocrit (Bld) [Volume fraction] 17.9 % Low 36.3-47.1 [facility] Comment on above: Performed By: #### B MPX, MG, CDP #### [employer] [address] [place] [address] [phone] Contract Clerk [employer]: Dwain Aldana MD Hemoglobin (Bld) [Mass/Vol] 5.7 g/dL Critically low 11.9-15.1 [facility] Comment on above: Performed By: #### B MPX, MG, CDP #### [employer] [address] [place] [address] 49227 Contract Clerk [employer]: Dwain Aldana MD Hematocrit (Bld) [Volume fraction] 18.0 % Low 36.3-47.1 [facility] Comment on above: Performed By: #### H H #### [employer] [address] [place] [address] 98395 Contract Clerk [employer]: Dwain Aldana MD Hemoglobin (Bld) [Mass/Vol] 5.9 g/dL Critically low 11.9-15.1 [facility] Comment on above: Performed By: #### H H #### [employer] [address] [place] [address] 19676 Contract Clerk [employer]: Dwain Aldana MD Hematocrit (Bld) [Volume fraction] 23.0 % Low 36.3-47.1 [facility] Comment on above: Performed By: #### H H #### [facility] [employer] [address] [place] [address] 14353 Contract Clerk [employer]: Dwain Aldana MD Hemoglobin (Bld) [Mass/Vol] 7.2 g/dL Low 11.9-15.1 [facility] Comment on above: Performed By: #### H H #### [facility] [employer] [address] [place] [address] 18892 Contract Clerk [employer]: Dwain Aldana MD Hematocrit (Bld) [Volume fraction] 22.0 % Low 36.3-47.1 [facility] Comment on above: Performed By: #### H H #### [facility] [employer] [address] [place] [address] 04751 Contract Clerk [employer]: Dwain Aldana MD Hemoglobin (Bld) [Mass/Vol] 7.2 g/dL Low 11.9-15.1 [facility] Comment on above: Performed By: #### H H #### [facility] [employer] [address] [place] [address] 39172 Contract Clerk [employer]: Dwain Aldana MD Hematocrit (Bld) [Volume fraction] 24.3 % Low 36.3-47.1 [facility] Comment on above: Performed By: #### H H #### [facility] [employer] [address] [place] [address] 27859 Contract Clerk [employer]: Dwain Aldana MD Hemoglobin (Bld) [Mass/Vol] 7.7 g/dL Low 11.9-15.1 [facility] Comment on above: Performed By: #### H H #### [facility] [employer] [address] [place] [address] 87602 Contract Clerk [employer]: Dwain Aldana MD Magnesiumon 11-27-2023 Magnesium [Mass/Vol] 1.9 mg/dL Normal 1.6-2.4 [facility] Comment on above: Performed By: #### B MPX, MG, CDP #### [facility] [employer] [address] [place] [address] Contract Clerk Automobile: Dwain Aldana MD Magnesium [Mass/Vol] 1.9 mg/dL 1.6 - 2 .4 mg/dL [facility] No Panel Informationon 11-26 Radiology Study observation (narrative) [facility] Portable XR Chest AP single [...] consistent with pneumonia. Trace left basilar effusion. [facility] Portable XR Chest AP single viewOrdered By: Ion Leon on 11-27-2023 [facility] Work Phone: XR CHEST PORTABLEon 11-27-19 24 [...] Ion Leon MD 11/27/23 Final result Normal [facility] Basic Metab w/rfx MGon 11-25 Anion gap [Moles/Vol] 11 mmol/L Normal 9-16 [facility] Comment on above: Performed By: #### B MPX, MG, CDP #### [facility] [employer] [address] [place] [address] 14343 Contract Clerk [employer]: Dwain Aldana MD Calcium [Mass/Vol] 6.3 mg/dL Low 8.6-10.4 [facility] Comment on above: Performed By: #### B MPX, MG, CDP #### [facility] [employer] [address] [place] [address] 23987 Contract Clerk [employer]: Dwain Aldana MD Chloride [Moles/Vol] 112 mmol/L High 98-107 [facility] Comment on above: Performed By: #### B MPX, MG, CDP #### [facility] [address] [place] [address] 75447 Contract Clerk [employer]: Dwain Aldana MD CO2 [Moles/Vol] 17 mmol/L Low 20-31 [facility] Comment on above: Performed By: #### B MPX, MG, CDP #### [facility] [address] [place] [address] 08107 Contract Clerk [employer]: Dwain Aldana MD Creatinine [Mass/Vol] 0.3 mg/dL Low 0.50-0.90 [facility] Comment on above: Performed By: #### B MPX, MG, CDP #### [facility] [address] [place] [address] [phone] Contract Clerk [employer]: Dwain Aldana MD GFR/1.73 sq M.predicted among non-blacks MDRD (S/P/Bld) [Vol rate/Area] mL/min/{1.73_m2} Normal >60 [facility] Comment on above: Result Comment: These results [...] By: #### B MPX, MG, CDP #### [facility] [address] [place] [address] 71961 Contract Clerk [employer]: Dwain Aldana MD Glucose [Mass/Vol] 82 mg/dL Normal 74-99 [facility] Comment on above: Performed By: #### B MPX, MG, CDP #### [facility] [address] [place] [address] 50433 Contract Clerk [employer]: Dwain Aldana MD Potassium [Moles/Vol] 3.4 mmol/L Low 3.7-5.3 [facility] Comment on above: Performed By: #### B MPX, MG, CDP #### [facility] [address] [place] [address] [phone] Contract Clerk [employer]: Dwain Aldana MD Sodium [Moles/Vol] 140 mmol/L Normal 136-145 [facility] Comment on above: Performed By: #### B MPX, MG, CDP #### [facility] [address] [place] [address] 49122 Contract Clerk [employer]: Dwain Aldana MD Urea nitrogen [Mass/Vol] 9 mg/dL Normal 8-23 [facility] Comment on above: Performed By: #### B MPX, MG, CDP #### [facility] [address] [place] [address] [phone] Contract Clerk [employer]: Dwain Aldana MD Basic Metabolic Panel w/ Ref merlene to MGon 11-26-2023 Anion gap [Moles/Vol] 11 mmol/L 9 - 16 mmol/L [facility] Calcium [Mass/Vol] 6.3 mg/dL Low 8.6 - 10. 4 mg/dL [facility] Chloride [Moles/Vol] 112 mmol/L High 98 - 10 7 mmol/L [facility] CO2 [Moles/Vol] 17 mmol/L Low 20 - 31 mmol/L [facility] Creatinine [Mass/Vol] 0.3 mg/dL Low 0.50 - 0.90 mg/dL [facility] [place] [facility] Comment on above: These results are [...] [Mass/Vol] 82 mg/dL 74 - 99 mg/dL [facility] Interpretation and review of laboratory results Abnormal [facility] Potassium [Moles/Vol] 3.4 mmol/L Low 3.7 - 5.3 mmol/L [facility] Sodium [Moles/Vol] 140 mmol/L 136 - 145 mmol/L [facility] Urea nitrogen [Mass/Vol] 9 mg/dL 8 - 23 mg/dL [facility] Hemoglobin and Hematocriton 11-26-2023 Hematocrit (Bld) [Volume fraction] 24.3 % Low 36.3 - 47.1 % [facility] Hemoglobin (Bld) [Mass/Vol] 7.7 g/dL Low 11.9 - 15.1 g/dL [facility] Interpretation and review of laboratory results Abnormal [facility] Hematocrit (Bld) [Volume fraction] 24.6 % Low 36.3 - 47.1 % [facility] Hemoglobin (Bld) [Mass/Vol] 8.1 g/dL Low 11.9 - 15.1 g/dL [facility] Interpretation and review of laboratory results Abnormal [facility] Hematocrit (Bld) [Volume fraction] 26.7 % Low 36.3 - 47.1 % [facility] Hemoglobin (Bld) [Mass/Vol] 8.6 g/dL Low 11.9 - 15.1 g/dL [facility] Interpretation and review of laboratory results Abnormal [facility] Hematocrit (Bld) [Volume fraction] 26.3 % Low 36.3 - 47.1 % [facility] Hemoglobin (Bld) [Mass/Vol] 8.1 g/dL Low 11.9 - 15.1 g/dL [facility] Interpretation and review of laboratory results Abnormal [facility] Hgb/Hcton 11-26-2023 Hematocrit (Bld) [Volume fraction] 24.6 % Low 36.3-47.1 [facility] Comment on above: Performed By: #### H H #### [employer] [address] [place] [address] Contract Clerk [employer]: Dwain Aldana MD Hemoglobin (Bld) [Mass/Vol] 8.1 g/dL Low 11.9-15.1 [facility] Comment on above: Performed By: #### H H #### [employer] [address] [place], [place] [phone] Contract Clerk [employer]: Dwain Aldana MD Hematocrit (Bld) [Volume fraction] 26.7 % Low 36.3-47.1 [facility] Comment on above: Performed By: #### T SHX, PRCAL #### [facility] [address] [place] [address] [phone] Contract Clerk [employer]: Dwain Aldana MD Hemoglobin (Bld) [Mass/Vol] 8.6 g/dL Low 11.9-15.1 [facility] Comment on above: Performed By: #### T SHX, PRCAL #### [facility] [address] [place] [address] [phone] Contract Clerk [employer]: Dwain Aldana MD Hematocrit (Bld) [Volume fraction] 26.3 % Low 36.3-47.1 [facility] Comment on above: Performed By: #### B MPX, MG, CDP #### [facility] [address] [place] [address] 55039 Contract Clerk [employer]obile: Dwain Aldana MD Hemoglobin (Bld) [Mass/Vol] 8.1 g/dL Low 11.9-15.1 [facility] Comment on above: Performed By: #### B MPX, MG, CDP #### [facility] [address] [place] [address] [phone] Contract Clerk [employer]: Dwain Aldana MD Hematocrit (Bld) [Volume fraction] 24.6 % Low 36.3-47.1 [facility] Comment on above: Performed By: #### B MPX, MG, CDP #### [facility] [employer] [address] [place] [address] [phone] Contract Clerk [employer]: Dwain Aldana MD Hemoglobin (Bld) [Mass/Vol] 8.5 g/dL Low 11.9-15.1 [facility] Comment on above: Performed By: #### B MPX, MG, CDP #### [facility] [address] [place] [address] [phone] Contract Clerk [employer]: Dwain Aldana MD Magnesiumon 11-26-2023 Magnesium [Mass/Vol] 1.5 mg/dL Low 1.6-2.4 [facility] Comment on above: Performed By: #### B MPX, MG, CDP #### [facility] [address] [place] [address] [phone] Contract Clerk [employer]: Dwain Aldana MD Interpretation and review of laboratory results Abnormal [facility] Magnesium [Mass/Vol] 1.5 mg/dL Low 1.6 - 2 .4 mg/dL [facility] APTTon 11-25-2023 aPTT Coag (Bld) [Time] 25.5 s Normal 23.0-36.5 [facility] Comment on above: Result Comment: IV Heparin Therapy Range: 66.0-92.0 sec Performed By: #### B MPX, MG, CDP #### [employer] [address] [place] [address] [phone] Contract Clerk [employer]: Dwain Aldana MD aPTT Coag (Bld) [Time] 25.5 s [facility] Comment on above: IV Heparin Therapy Range: 66.0-92.0 sec BLOOD BANK SPECIMENon 2023 [facility] Basic Metab w/rfx MGon 11-24 Anion gap [Moles/Vol] 7 mmol/L Low 9-16 [facility] Comment on above: Performed By: #### B MPX, MG, CDP #### [employer] [address] [place] [address] 34174 Contract Clerk [employer]: Dwain Aldana MD Calcium [Mass/Vol] 6.6 mg/dL Low 8.6-10.4 [facility] Comment on above: Performed By: #### B MPX, MG, CDP #### [employer] [address] [place] [address] 33509 Contract Clerk [employer]: Dwain Aldana MD Chloride [Moles/Vol] 108 mmol/L High 98-107 [facility] Comment on above: Performed By: #### B MPX, MG, CDP #### [employer] [address] [place] [address] [phone] Contract Clerk [employer]: Dwain Aldana MD CO2 [Moles/Vol] 23 mmol/L Normal 20-31 [facility] Comment on above: Performed By: #### B MPX, MG, CDP #### [employer] [address] Contract Clerk [employer]obile: Dwain Aldana MD Creatinine [Mass/Vol] 0.4 mg/dL Low 0.50-0.90 [facility] Comment on above: Performed By: #### B MPX, MG, CDP #### [facility] [employer] [address] [place] [address] 33589 Contract Clerk [employer]: Dwain Aldana MD GFR/1.73 sq M.predicted among non-blacks MDRD (S/P/Bld) [Vol rate/Area] mL/min/{1.73_m2} Normal >60 [facility] Comment on above: Result Comment: These results [...] B MPX, MG, CDP #### [facility] [employer] [address] [place] [address] 90365 Contract Clerk [employer]: Dwain Aldana MD Glucose [Mass/Vol] 81 mg/dL Normal 74-99 [facility] Comment on above: Performed By: #### B MPX, MG, CDP #### [facility] [employer] [address] [place] [address] 38268 Contract Clerk [employer]: Dwain Aldana MD Potassium [Moles/Vol] 3.6 mmol/L Low 3.7-5.3 [facility] Comment on above: Performed By: #### B MPX, MG, CDP #### [facility] [employer] [address] [place] [address] [phone] Contract Clerk [employer]: Dwain Aldana MD Sodium [Moles/Vol] 138 mmol/L Normal 136-145 [facility] Comment on above: Performed By: #### B MPX, MG, CDP #### [facility] [address] [place] [address] Contract Clerk [employer]: Dwain Aldana MD Urea nitrogen [Mass/Vol] 13 mg/dL Normal 8-23 [facility] Comment on above: Performed By: #### B MPX, MG, CDP #### [employer] [address] [place] [address] Contract Clerk [employer]obile: Dwain Aldana MD Basic Metabolic Panel w/ Ref merlene to MGon 11-25-2023 Anion gap [Moles/Vol] 7 mmol/L Low 9 - 16 mmol/L [facility] Calcium [Mass/Vol] 6.6 mg/dL Low 8.6 - 10. 4 mg/dL [facility] Chloride [Moles/Vol] 108 mmol/L High 98 - 10 7 mmol/L [facility] CO2 [Moles/Vol] 23 mmol/L 20 - 31 mmol/L [facility] Creatinine [Mass/Vol] 0.4 mg/dL Low 0.50 - 0.90 mg/dL [facility] [employer], [employer] [employer] - [facility] Comment on above: These results are [...] [Mass/Vol] 81 mg/dL 74 - 99 mg/dL [facility] Interpretation and review of laboratory results Abnormal [facility] Potassium [Moles/Vol] 3.6 mmol/L Low 3.7 - 5.3 mmol/L [facility] Sodium [Moles/Vol] 138 mmol/L 136 - 145 mmol/L [facility] Urea nitrogen [Mass/Vol] 13 mg/dL 8 - 23 mg/dL [facility] CBC with Auto Differentialon 11-25-2023 Basophils (Bld) [#/Vol] 0.03 10*3/uL [facility] Basophils/100 WBC (Bld) 0 % 0 - 2 % [facility] Eosinophils (Bld) [#/Vol] 0.05 10*3/uL [facility] Eosinophils/100 WBC (Bld) 1 % 1 - 4 % [facility] Erythrocyte distribution width (RBC) [Ratio] 19.9 % High 11.8 - 14.4 % [facility] Hematocrit (Bld) [Volume fraction] 19.9 % Low 36.3 - 47.1 % [facility] Hemoglobin (Bld) [Mass/Vol] 5.8 g/dL Critically low 11.9 - 15.1 g/dL [facility] Immature granulocytes (Bld) [#/Vol] 0.06 10*3/uL [facility] Immature granulocytes/100 WBC (Bld) 1 % High 0 [facility] Interpretation and review of laboratory results Abnormal [facility] Lymphocytes/100 WBC (Bld) 18 % Low 24 - 43 % [facility] Lymphocytes/100 WBC (Bld) 1.67 % [facility] MCH (RBC) [Entitic mass] 29.7 pg 25.2 - 33.5 pg [facility] MCHC (RBC) [Mass/Vol] 29.1 g/dL 28.4 - 34.8 g/dL [facility] MCV (RBC) [Entitic vol] 102.1 fL 82.6 - 102.9 fL [facility] Monocytes/100 WBC (Bld) 8 % 3 - 12 % [facility] Monocytes/100 WBC (Bld) 0.72 % [facility] Neutrophils/100 WBC (Bld) 73 % High 36 - 65 % [facility] Nucleated RBC/100 WBC (Bld) [Ratio] 0.0 % 0.0 per 100 WBC [facility] Platelet mean volume (Bld) [Entitic vol] 11.5 fL 8.1 - 13.5 fL [facility] Platelets (Bld) [#/Vol] 186 10*3/uL [facility] RBC (Bld) [#/Vol] 1.95 10*6/uL Low 3.95 - 5.11 m/uL [facility] RBC (Bld) [#/Vol] ANISOCYTOSIS PRESENT [facility] Segmented neutrophils/100 WBC (Bld) 6.93 % [facility] WBC other (Bld) [#/Vol] 9.5 [facility] CBC with Diffon 11-25-2023 Abs. Basophil 0.03 k/uL Normal 0.00-0.20 [facility] Comment on above: Performed By: #### B MPX, MG, CDP #### [facility] [address] [place] [address] [employer] Clerk [employer]: Dwain Aldana MD Abs.Imm.Granulocyte 0.06 k/uL Normal 0.00-0.30 [facility] Comment on above: Performed By: #### B MPX, MG, CDP #### [facility] [address] [place] [address] [employer] Clerk [employer]: Dwain Aldana MD Abs.Neutrophil (Seg) 6.93 k/uL Normal 1.50-8.10 [facility] Comment on above: Performed By: #### B MPX, MG, CDP #### [employer] [address] [place] [address] 02991 [employer] Clerk [employer]: wDain Aldana MD Basophils/100 WBC (Bld) 0 % Normal 0-2 [facility] Comment on above: Performed By: #### B MPX, MG, CDP #### [employer] [address] [place] [address] 02015 [employer] Clerk [employer]: Dwain Aldana MD Eosinophils (Bld) [#/Vol] 0.05 10*3/uL Normal 0.00-0.44 [facility] Comment on above: Performed By: #### B MPX, MG, CDP #### [employer] [address] [place] [address] [phone] [employer] Clerk [employer]: Dwain Aldana MD Eosinophils/100 WBC (Bld) 1 % Normal 1-4 [facility] Comment on above: Performed By: #### B MPX, MG, CDP #### [facility] [employer] [address] [place] [address] 32076 [employer] Clerk [employer]: Dwain Aldana MD Erythrocyte distribution width (RBC) [Ratio] 19.9 % High 11.8-14.4 [facility] Comment on above: Performed By: #### B MPX, MG, CDP #### [facility] [address] [place] [address] [phone] [employer]: Dwain Aldana MD Hematocrit (Bld) [Volume fraction] 19.9 % Low 36.3-47.1 [facility] Comment on above: Performed By: #### B MPX, MG, CDP #### [facility] [employer] [address] [place] [address] [phone] [employer] Clerk [employer]: Dwain Aldana MD Hemoglobin (Bld) [Mass/Vol] 5.8 g/dL Critically low 11.9-15.1 [facility] Comment on above: Performed By: #### B MPX, MG, CDP #### [facility] [address] [place] [address] 96132 [employer]: Dwain Aldana MD Immature granulocytes/100 WBC (Bld) 1 % High 0 [facility] Comment on above: Performed By: #### B MPX, MG, CDP #### [facility] [address] [place] [address] 07305 [employer] Clerk [employer]: Dawin Aldana MD Lymphocytes (Bld) [#/Vol] 1.67 10*3/uL Normal 1.10-3.70 [facility] Comment on above: Performed By: #### B MPX, MG, CDP #### [facility] [address] [place] [address] [id number] [employer]: Dwain Aldana MD Lymphocytes/100 WBC (Bld) 18 % Low 24-43 [facility] Comment on above: Performed By: #### B MPX, MG, CDP #### [facility] [address] [place] [id number] [employer]: Dwain Aldana MD MCH (RBC) [Entitic mass] 29.7 pg Normal 25.2-33.5 [facility] Comment on above: Performed By: #### B MPX, MG, CDP #### [facility] [address] [place] [phone] [employer] Clerk [employer]: Dwain Aldana MD MCHC (RBC) [Mass/Vol] 29.1 g/dL Normal 28.4-34.8 [facility] Comment on above: Performed By: #### B MPX, MG, CDP #### [address] [address] [employer] Clerk [employer]: Dwain Aldana MD MCV (RBC) [Entitic vol] 102.1 fL Normal 82.6-102.9 [facility] Comment on above: Performed By: #### B MPX, MG, CDP #### [facility] [employer] [address] [place] [id number] [employer] Clerk [employer]: Dwain Aldana MD Monocytes (Bld) [#/Vol] 0.72 10*3/uL Normal 0.10-1.20 [facility] Comment on above: Performed By: #### B MPX, MG, CDP #### [facility] [employer] [address] [place] [address] [employer] Clerk [employer]: Dwain Aldana MD Monocytes/100 WBC (Bld) 8 % Normal 3-12 [facility] Comment on above: Performed By: #### B MPX, MG, CDP #### [facility] [address] [place] [address] [employer] Clerk [employer]: Dwain Aldana MD Neutrophil (Seg) 73 % High 36-65 [facility] Comment on above: Performed By: #### B MPX, MG, CDP #### [address] [address] Contract Clerk [employer]: Dwain Aldana MD NRBC Automated 0.0 per 100 WBC Normal 0.0 [facility] Comment on above: Performed By: #### B MPX, MG, CDP #### [address] [address] Contract Clerk [employer]: Dwain Aldana MD Platelet mean volume (Bld) [Entitic vol] 11.5 fL Normal 8.1-13.5 [facility] Comment on above: Performed By: #### B MPX, MG, CDP #### [address] [address] Contract Clerk [employer]: Dwain Aldana MD Platelets (Bld) [#/Vol] 186 10*3/uL Normal 138-453 [facility] Comment on above: Performed By: #### B MPX, MG, CDP #### [address] [address] Contract Clerk [employer]: Dwain Aldana MD RBC (Bld) [#/Vol] 1.95 10*6/uL Low 3.95-5.11 [facility] Comment on above: Performed By: #### B MPX, MG, CDP #### [address] [address] Contract Clerk [employer]: Dwain Aldana MD RBC morphology finding Nom (Bld) ANISOCYTOSIS PRESENT Normal [facility] Comment on above: Performed By: #### B MPX, MG, CDP #### [facility] [employer] [address] [place] [address] [employer] Clerk [employer]: Dwain Aldana MD WBC (Bld) [#/Vol] 9.5 10*3/uL Normal 3.5-11.3 [facility] Comment on above: Performed By: #### B MPX, MG, CDP #### [employer] [facility] [place] [id number] Contract Clerk [employer]: Dwain Aldana MD CTA ABDOMEN PELVIS W [...] Smith Hahn MD 11/25/23 Final result Normal [facility] CTA Abdominal vessels and Pe lvis vessels [...] fat containing umbilical hernia. 7. Diffuse anasarca. [facility] Radiology Study observation (narrative) [facility] CTA Abdominal vessels and Pe lvis vessels WO and W contrast IVOrdered By: Smith Hahn on 11-25-2023 [facility] Work Phone: Hemoglobin and Hematocriton 11-25-2023 Hematocrit (Bld) [Volume fraction] 24.6 % Low 36.3 - 47.1 % [facility] Hemoglobin (Bld) [Mass/Vol] 8.5 g/dL Low 11.9 - 15.1 g/dL [facility] Interpretation and review of laboratory results Abnormal [facility] Hematocrit (Bld) [Volume fraction] 28.6 % Low 36.3 - 47.1 % [facility] Hemoglobin (Bld) [Mass/Vol] 9.2 g/dL Low 11.9 - 15.1 g/dL [facility] Interpretation and review of laboratory results Abnormal [facility] Hematocrit (Bld) [Volume fraction] 20.3 % Low 36.3 - 47.1 % [facility] Hemoglobin (Bld) [Mass/Vol] 6.6 g/dL Critically low 11.9 - 15.1 g/dL [facility] Interpretation and review of laboratory results Abnormal [facility] Hgb/Hcton 11-25-2023 Hematocrit (Bld) [Volume fraction] 28.6 % Low 36.3-47.1 [facility] Comment on above: Performed By: #### B MPX, MG, CDP #### [facility] [address] [place], [place] [id number] Contract Clerk [employer]: Dwain Aldana MD Hemoglobin (Bld) [Mass/Vol] 9.2 g/dL Low 11.9-15.1 [facility] Comment on above: Performed By: #### B MPX, MG, CDP #### [facility] [address] [place] [address] Contract Clerk [employer]: Dwain Aldana MD Hematocrit (Bld) [Volume fraction] 30.2 % Low 36.3-47.1 [facility] Comment on above: Performed By: #### B MPX, MG, CDP #### [facility] [address] [place] [address] Contract Clerk [employer]: Dwain Aldana MD Hemoglobin (Bld) [Mass/Vol] 9.0 g/dL Low 11.9-15.1 [facility] Comment on above: Performed By: #### B MPX, MG, CDP #### [facility] [address] [place] [address] Contract Clerk [employer]: Dwain Aldana MD Hematocrit (Bld) [Volume fraction] 20.3 % Low 36.3-47.1 [facility] Comment on above: Performed By: #### B MPX, MG, CDP #### [facility] [employer] [address] [place] [address] Contract Clerk [employer]: Dwain Aldana MD Hemoglobin (Bld) [Mass/Vol] 6.6 g/dL Critically low 11.9-15.1 [facility] Comment on above: Performed By: #### B MPX, MG, CDP #### [facility] [address] [place] [address] Contract Clerk [employer]: Dwain Aldana MD Iron Binding Cap.on 11-25-19 24 % Fe Saturation 39 % Normal 20-55 [facility] Comment on above: Performed By: #### B MPX, MG, CDP #### [facility] [employer] [address] [place] [address] Contract Clerk [employer]: Dwain Aldana MD Iron [Mass/Vol] 80 ug/dL Normal 37-145 [facility] Comment on above: Performed By: #### B MPX, MG, CDP #### [facility] [address] [place] [address] Contract Clerk [employer]: Dwain Aldana MD Total Fe Binding Cap 205 ug/dL Low 250-450 [facility] Comment on above: Performed By: #### B MPX, MG, CDP #### [facility] [address] [place] [address] Contract Clerk [employer]: Dwain Aldana MD Unbound Fe Bind Cap 125 ug/dL Normal 112-347 [facility] Comment on above: Performed By: #### B MPX, MG, CDP #### [facility] [address] [place] [address] [phone] Contract Clerk [employer]obile: Dwain Aldana MD Iron and TIBCon 11-25-2023 Interpretation and review of laboratory results Abnormal [facility] Iron [Mass/Vol] 80 ug/dL 37 - 145 ug/dL [facility] Iron binding capacity [Mass/Vol] 205 ug/dL Low 250 - 450 ug/dL [facility] Iron saturation [Mass fraction] 39 % 20 - 55 % [facility] UIBC 125 ug/dL 112 - 347 ug/dL [facility] Lactate, Sepsison 11-25-2023 Lactic Acid,Sep Wbld 0.9 mmol/L Normal 0.5-1.9 [facility] Comment on above: Performed By: #### H H #### [facility] [address] [place] [address] Contract Clerk [employer]: Dwain Aldana MD Lactic Acid, Sepsis, Whole Blood 0.9 mmol/L 0.5 - 1.9 mmol/L [facility] Lactic Acid,Sep Wbld 0.6 mmol/L Normal 0.5-1.9 [facility] Comment on above: Performed By: #### T SHX, PRCAL #### [employer] [address] [place] [phone] Contract Clerk [employer]: Dwain Aldana MD Lactic Acid, Sepsis, Whole Blood 0.6 mmol/L 0.5 - 1.9 mmol/L [facility] Lactic Acid,Sep Wbld 0.7 mmol/L Normal 0.5-1.9 [facility] Comment on above: Performed By: #### B MPX MG, CDP #### [employer] [address] [place] [phone] Contract Clerk [employer]obile: Dwain Aldana MD Lactic Acid, Sepsis, Whole Blood 0.7 mmol/L 0.5 - 1.9 mmol/L [facility] [employer] No Panel Informationon 11-24 [facility] [employer] PTon 11-25-2023 INR Coag (PPP) [Relative time] 1.2 {INR} Normal [facility] Comment on above: Result Comment: Therapeutic Range: Moderate Anticoagulant Intensity: INR = 2.0-3.0 High Anticoagulant Intensity: INR = 2.5-3.5 Performed By: #### B SWATHIX MG, CDP #### [employer] [address] [place] [address] Contract Clerk [employer]: Dwain Aldana MD PT Coag (PPP) [Time] 15.5 s High 11.7-14.9 [facility] Comment on above: Performed By: #### B MPX MG, CDP #### [employer] [address] [place] [phone] Contract Clerk [employer]: Dwain Aldana MD Portable XR Chest AP [...] Bones: No acute osseous abnormality. [facility] Keaton Saldaña MD - 11/25/2023 EXAMINATION: ONE [...] than left pleural effusions and bibasilar atelectasis. [employer] Radiology Study observation (narrative) [employer] Portable XR Chest AP single viewOrdered By: Keaton Montilla on 11-25-2023 [employer] Work Phone: [employer] 11-25-2023 INR Coag (PPP) [Relative time] 1.2 {INR} [employer] Comment on above: Therapeutic Range: Moderate Anticoagulant Intensity: INR = 2.0-3.0 High Anticoagulant Intensity: INR = 2.5-3.5 Interpretation and review of laboratory results Abnormal [employer] PT Coag (PPP) [Time] 15.5 s High [employer] XR CHEST PORTABLEon 11-25-19 24 XR CHEST [...] Keaton Montilla MD 11/25/23 Final result Normal [facility] Erythrocyte distribution wid th Auto (RBC) [Ratio]Ordered By: Frantz Nieves on 11-21-2023 Erythrocyte distribution width (RBC) [Ratio] 16.3 % 11.9-15.3 [facility] Ferritinon 11-21-2023 Ferritin [Mass/Vol] 40.6 ng/mL Normal 11.0-306.8 [facility] Comment on above: Result Comment: PERF ORMED BY: [place] [address] PATHOLOGIST PATIENT ACCOUNTS SPECIALIST EVY GARCIA M.D. Performed By: #### C BCNO, MG #### [facility] [address] [place] [address] Ferritin [Mass/volume] in Se rum or PlasmaOrdered By: Jaspal Whalen on 11-21-2023 Ferritin [Mass/Vol] 40.6 ng/mL 11.0-306.8 [facility] H Pylori Stool Ag, EIAon H Pylori Stool Ag, EIA Negative Normal Negative [facility] Comment on above: Order Comment: SOURC E OF SPECIMEN: stool Result Comment: Perf ormed at: - [facility] [address] [phone] Contract Clerk Automobile: Jonny Guzman PhD, Phone: [phone] PERFORMED BY: [place] [address] PATHOLOGIST PATIENT ACCOUNTS SPECIALIST EVY GARCIA M.D. Performed By: #### C BCNO, MG #### [facility] [address] [place], [place] [id number] [facility] Hematocrit Auto (Bld) [Volum e fraction]Ordered By: Frantz Nieves on 11-21-2023 Hematocrit (Bld) [Volume fraction] 27.4 % 34.0-46.4 [facility] Hemoglobin [Mass/volume] in BloodOrdered By: Frantz Nieves on 11-21-2023 Hemoglobin (Bld) [Mass/Vol] 9.2 g/dL 11.8-15.4 [facility] Hemogram CBC Without Diffon 11-21-2023 Erythrocyte distribution width (RBC) [Ratio] 16.3 % High 11.9-15.3 [facility] Comment on above: Performed By: #### C BCNO #### [address] Hematocrit (Bld) [Volume fraction] 27.4 % Low 34.0-46.4 [facility] Comment on above: Performed By: #### C BCNO #### [address] Hemoglobin (Bld) [Mass/Vol] 9.2 g/dL Low 11.8-15.4 [facility] Comment on above: Performed By: #### C BCNO #### [address] MCH (RBC) [Entitic mass] 31.3 pg Normal 24.7-34.3 [facility] Comment on above: Performed By: #### C BCNO #### [address] MCV (RBC) [Entitic vol] 93.2 fL Normal 80-100 [facility] Comment on above: Performed By: #### C BCNO #### [address] Mean Corpuscular HGB Conc 33.6 g/dL Normal 32.0-35.0 [facility] Comment on above: Performed By: #### C BCNO #### [address] Platelet mean volume (Bld) [Entitic vol] 7.7 fL Normal 6.3-10.7 [facility] Comment on above: Result Comment: PERF ORMED BY: [place] [address] PATHOLOGIST PATIENT ACCOUNTS SPECIALIST EVY GARCIA M.D. Performed By: #### C BCNO #### [address] [place] [address] [place] Platelets (Bld) [#/Vol] 377 10*3/uL Normal 150-450 [facility] Comment on above: Performed By: #### C BCNO #### [address] RBC (Bld) [#/Vol] 2.94 10*6/uL Low 3.60-5.00 [facility] Comment on above: Performed By: #### C BCNO #### [address] WBC (Bld) [#/Vol] 8.8 10*3/uL Normal 3.8-11.6 [facility] Comment on above: Performed By: #### C BCNO #### [address] Iron [Mass/volume] in Serum or PlasmaOrdered By: Jaspal Whalen on 11-21-2023 Iron [Mass/Vol] 20 ug/dL 50-212 [facility] Iron and TIBC Profileon 10-26 % Iron Saturation 6.0 % Low 20-50 [facility] Comment on above: Performed By: #### C BCNO, MG #### [address] Iron [Mass/Vol] 20 ug/dL Low 50-212 [facility] Comment on above: Performed By: #### C BCNO, MG #### [address] Total Iron Binding Capacity 333 ug/dL Normal 255-450 [facility] Comment on above: Performed By: #### C BCNO, MG #### [place] [address] [place] Transferrin [Mass/Vol] 238 mg/dL Normal 203-362 [facility] Comment on above: Performed By: #### C BCNO, MG #### [address] Iron binding capacity [Mass/ volume] in Serum or PlasmaOrdered By: Jaspal Whalen on 11-21-2023 Iron binding capacity [Mass/Vol] 333 ug/dL 255-450 [facility] Iron saturation [Mass Fracti on] in Serum or PlasmaOrdered By: Jaspal Whalen on 11-21-2023 Iron saturation [Mass fraction] 6.0 % 20-50 [facility] Leukocytes [#/volume] correc dalton for nucleated erythrocytes in Blood by Automated counOrdered By: Frantz Nieves on 11-21-2023 WBC corrected for nucl RBC Auto (Bld) [#/Vol] 8.8 10*3/uL 3.8-11.6 [facility] MCH Auto (RBC) [Entitic mass ]Ordered By: Frantz Nieves on 11-21-2023 MCH (RBC) [Entitic mass] 31.3 pg 24.7-34.3 [facility] MCHC Auto (RBC) [Mass/Vol]Or dered By: Frantz Nieves on 11-21-2023 MCHC (RBC) [Mass/Vol] 33.6 g/dL 32.0-35.0 [facility] MCV Auto (RBC) [Entitic vol] Ordered By: Frantz Nieves on 11-21-2023 MCV (RBC) [Entitic vol] 93.2 fL 80-100 [facility] Platelet mean volume Auto (B ld) [Entitic vol]Ordered By: Frantz Nieves on 11-21-2023 Platelet mean volume (Bld) [Entitic vol] 7.7 fL 6.3-10.7 [facility] Platelets Auto (Bld) [#/Vol] Ordered By: Frantz Nieves on 11-21-2023 Platelets (Bld) [#/Vol] 377 10*3/uL 150-450 [facility] RBC Auto (Bld) [#/Vol]Ordere d By: Frantz Nieves on 11-21-2023 RBC (Bld) [#/Vol] 2.94 10*6/uL 3.60-5.00 [facility] Transferrin [Mass/volume] in Serum or PlasmaOrdered By: Jaspal Whalen on 11-21-2023 Transferrin [Mass/Vol] 238 mg/dL 203-362 [facility] Hemoglobin and Hematocriton 11-20-2023 Hematocrit (Bld) [Volume fraction] 24.7 % Low 34.0-46.4 [facility] Comment on above: Result Comment: PERF ORMED BY: [place] [address] PATHOLOGIST PATIENT ACCOUNTS SPECIALIST EVY GARCIA M.D. Performed By: #### H H #### [address] Hemoglobin (Bld) [Mass/Vol] 8.4 g/dL Low 11.8-15.4 [facility] Comment on above: Performed By: #### H H #### [address] Hemogram CBC Without Diffon 11-20-2023 Erythrocyte distribution width (RBC) [Ratio] 16.5 % High 11.9-15.3 [facility] Comment on above: Performed By: #### C BCNO, MG #### [address] Hematocrit (Bld) [Volume fraction] 23.7 % Low 34.0-46.4 [facility] Comment on above: Performed By: #### C BCNO, MG #### [address] Hemoglobin (Bld) [Mass/Vol] 8.1 g/dL Low 11.8-15.4 [facility] Comment on above: Performed By: #### C BCNO, MG #### [address] MCH (RBC) [Entitic mass] 31.7 pg Normal 24.7-34.3 [facility] Comment on above: Performed By: #### C BCNO, MG #### [address] MCV (RBC) [Entitic vol] 92.5 fL Normal 80-100 [facility] Comment on above: Performed By: #### C BCNO, MG #### [address] Mean Corpuscular HGB Conc 34.2 g/dL Normal 32.0-35.0 [facility] Comment on above: Performed By: #### C BCNO, MG #### [address] Platelet mean volume (Bld) [Entitic vol] 7.8 fL Normal 6.3-10.7 [facility] Comment on above: Result Comment: PERF ORMED BY: [place] [address] PATHOLOGIST PATIENT ACCOUNTS SPECIALIST EVY GARCIA M.D. Performed By: #### C BCNO, MG #### [address] Platelets (Bld) [#/Vol] 279 10*3/uL Normal 150-450 [facility] Comment on above: Performed By: #### C BCNO, MG #### [address] RBC (Bld) [#/Vol] 2.56 10*6/uL Low 3.60-5.00 [facility] Comment on above: Performed By: #### C BCNO, MG #### [address] WBC (Bld) [#/Vol] 9.2 10*3/uL Normal 3.8-11.6 [facility] Comment on above: Performed By: #### C BCNO, MG #### [address] Magnesiumon 11-20-2023 Magnesium [Mass/Vol] 1.7 mg/dL Low 1.9-2.7 [facility] Comment on above: Result Comment: PERF ORMED BY: [place] [address] PATHOLOGIST PATIENT ACCOUNTS SPECIALIST EVY GARCIA M.D. Performed By: #### C BCNO, MG #### [address] Magnesium [Mass/volume] in S staci or PlasmaOrdered By: Frantz Nieves on 11-20-2023 Magnesium [Mass/Vol] 1.7 mg/dL 1.9-2.7 [facility] Basic Metabolic Panelon 10-26 Anion gap [Moles/Vol] 6.7 mmol/L Normal 6.0-15.0 [facility] Comment on above: Performed By: #### C BCNO, MG #### [facility] [address] Calcium [Mass/Vol] 6.6 mg/dL Low 8.6-10.3 [facility] Comment on above: Performed By: #### C BCNO, MG #### [facility] [address] Chloride [Moles/Vol] 111 mmol/L High 98-107 [facility] Comment on above: Performed By: #### C BCNO, MG #### [facility] [address] CO2 [Moles/Vol] 24.0 mmol/L Normal 21.0-31.0 [facility] Comment on above: Performed By: #### C BCNO, MG #### [facility] [address] Creatinine [Mass/Vol] 0.40 mg/dL Low 0.60-1.20 [facility] Comment on above: Performed By: #### C BCNO, MG #### [facility] [address] [place] [address] [place] Creatinine Clr Calc Pharmacy 50.26 Normal [facility] Comment on above: Performed By: #### C BCNO, MG #### [facility] [address] [place] [address] [place] GFR/1.73 sq M.predicted MDRD (S/P/Bld) [Vol rate/Area] mL/min/{1.73_m2} Normal [facility] Comment on above: Performed By: #### C BCNO, MG #### [facility] [address] Glucose [Mass/Vol] 88 mg/dL Normal 70-100 [facility] Comment on above: Result Comment: [facility] Glucose Reference Range is dependent on time and content of last meal. Glucose of more than 200 mg/dL in a nonstressed, ambulatory subject supports the diagnosis of Diabetes Mellitus. ADA recommended reference range Performed By: #### C BCNO, MG #### [facility] [address] Potassium [Moles/Vol] 3.7 mmol/L Normal 3.5-5.1 [facility] Comment on above: Performed By: #### C BCNO, MG #### [facility] [address] Sodium [Moles/Vol] 138 mmol/L Normal 136-145 [facility] Comment on above: Performed By: #### C BCNO, MG #### [facility] [address] [place] [address] [place] Urea nitrogen [Mass/Vol] 15 mg/dL Normal 7-25 [facility] Comment on above: Performed By: #### C BCNO, MG #### [facility] [address] Calcium [Mass/volume] in Ser um or PlasmaOrdered By: Frantz Nieves on 11-19-2023 Calcium [Mass/Vol] 6.6 mg/dL 8.6-10.3 [facility] Carbon dioxide, total [Moles /volume] in Serum or PlasmaOrdered By: Frantz Nieves on 11-19-2023 CO2 [Moles/Vol] 24.0 mmol/L 21.0-31.0 [facility] Chloride [Moles/volume] in S staci or PlasmaOrdered By: Frantz Nieves on 11-19-2023 Chloride [Moles/Vol] 111 mmol/L 98-107 [facility] Creatinine [Mass/volume] in Serum or PlasmaOrdered By: Frantz Nieves on 11-19-2023 Creatinine [Mass/Vol] 0.40 mg/dL 0.60-1.20 [facility] Glucose [Mass/volume] in Ser um or PlasmaOrdered By: Frantz Nieves on 11-19-2023 Glucose [Mass/Vol] 88 mg/dL 70-100 [facility] Comment on above: ADA recommended refe rence rangeRandom Glucose Reference Range is dependent on time and content of last meal. Glucose of more than 200 mg/dL in a nonstressed, ambulatory subject supports the diagnosis of Diabetes Mellitus. Hemoglobin and Hematocriton 11-19-2023 Hematocrit (Bld) [Volume fraction] 26.7 % Low 34.0-46.4 [facility] Comment on above: Result Comment: PERF ORMED BY: [place] [address] PATHOLOGIST PATIENT ACCOUNTS SPECIALIST EVY GARCIA M.D. Performed By: #### C BCNO, MG #### [address] Hemoglobin (Bld) [Mass/Vol] 9.1 g/dL Significant change down 11.8-15.4 [facility] Comment on above: Performed By: #### C BCNO, MG #### [address] Hematocrit (Bld) [Volume fraction] 19.0 % Off scale low 34.0-46.4 [facility] Comment on above: Result Comment: Crit ical value result called at 1124 on 11/19/23 PERFORMED BY: [place] [address] PATHOLOGIST PATIENT ACCOUNTS SPECIALIST EVY GARCIA M.D. Performed By: #### C BCNO, MG #### [place] [address] [place] Hemoglobin (Bld) [Mass/Vol] 6.5 g/dL Low 11.8-15.4 [facility] Comment on above: Performed By: #### C BCNO, MG #### [address] Hematocrit (Bld) [Volume fraction] 22.1 % Low 34.0-46.4 [facility] Comment on above: Result Comment: PERF ORMED BY: [place] [address] PATHOLOGIST PATIENT ACCOUNTS SPECIALIST EVY GARCIA M.D. Performed By: #### C BCNO, MG #### [address] Hemoglobin (Bld) [Mass/Vol] 7.5 g/dL Low 11.8-15.4 [facility] Comment on above: Performed By: #### C BCNO, MG #### [address] Hemogram CBC Without Diffon 11-19-2023 Erythrocyte distribution width (RBC) [Ratio] 16.2 % High 11.9-15.3 [facility] Comment on above: Performed By: #### C BCNO, MG #### [address] Hematocrit (Bld) [Volume fraction] 20.5 % Low 34.0-46.4 [facility] Comment on above: Performed By: #### C BCNO, MG #### [address] Hemoglobin (Bld) [Mass/Vol] 7.1 g/dL Low 11.8-15.4 [facility] Comment on above: Performed By: #### C BCNO, MG #### [address] MCH (RBC) [Entitic mass] 31.8 pg Normal 24.7-34.3 [facility] Comment on above: Performed By: #### C BCNO, MG #### [address] MCV (RBC) [Entitic vol] 92.0 fL Normal 80-100 [facility] Comment on above: Performed By: #### C BCNO, MG #### [address] [address] Mean Corpuscular HGB Conc 34.6 g/dL Normal 32.0-35.0 [facility] Comment on above: Performed By: #### C BCNO, MG #### [address] Platelet mean volume (Bld) [Entitic vol] 7.5 fL Normal 6.3-10.7 [facility] Comment on above: Result Comment: PERF ORMED BY: [place] [address] PATHOLOGIST PATIENT ACCOUNTS SPECIALIST EVY GARCIA M.D. Performed By: #### C BCNO, MG #### [address] Platelets (Bld) [#/Vol] 247 10*3/uL Normal 150-450 [facility] Comment on above: Performed By: #### C BCNO, MG #### [address] RBC (Bld) [#/Vol] 2.23 10*6/uL Low 3.60-5.00 [facility] Comment on above: Performed By: #### C BCNO, MG #### [address] WBC (Bld) [#/Vol] 10.1 10*3/uL Normal 3.8-11.6 [facility] Comment on above: Performed By: #### C BCNO, MG #### [address] Magnesiumon 11-19-2023 Magnesium [Mass/Vol] 2.0 mg/dL Normal 1.9-2.7 [facility] Comment on above: Result Comment: PERF ORMED BY: [place] [address] PATHOLOGIST PATIENT ACCOUNTS SPECIALIST EVY GARCIA M.D. Performed By: #### C BCNO, MG #### [address] No Panel InformationOrdered By: Frantz Nieves on 11-19-2023 Estimated GFR (CKD-EPI) > 60.0 mL/Min [facility] Creatinine Clearance (Chem 50.26 [facility] Potassium [Moles/volume] in Serum or PlasmaOrdered By: Frantz Nieves on 11-19-2023 Potassium [Moles/Vol] 3.7 mmol/L 3.5-5.1 [facility] Serum or plasma anion gap de terminationOrdered By: Frantz Nieves on 11-19-2023 Anion gap [Moles/Vol] 6.7 mmol/L 6.0-15.0 [facility] Sodium [Moles/volume] in Ser um or PlasmaOrdered By: Frantz Nieves on 11-19-2023 Sodium [Moles/Vol] 138 mmol/L 136-145 [facility] Urea nitrogen [Mass/volume] in Serum or PlasmaOrdered By: Frantz Nieves on 11-19-2023 Urea nitrogen [Mass/Vol] 15 mg/dL 02-17 [facility] ABO/Rh Retypeon 11-18-2023 ABO/RH Recheck Result Positive Normal [facility] Comment on above: Result Comment: PERF ORMED BY: [facility] [address] [facility] [place] [place] [address] PATHOLOGIST PATIENT ACCOUNTS SPECIALIST EVY GARCIA M.D. Alanine aminotransferase [En zymatic activity/volume] in Serum or PlasmaOrdered By: Dale Mckeon on 11-18-2023 ALT [Catalytic activity/Vol] 14 U/L 7-52 [facility] Albumin [Mass/volume] in Ser um or Plasma by Bromocresol green (BCG) dye binding methoOrdered By: Dale Mckeon on 11-18-2023 Albumin BCG dye [Mass/Vol] 2.4 g/dL 3.5-5.7 [facility] Alkaline phosphatase [Enzyma tic activity/volume] in Serum or PlasmaOrdered By: Dale Mckeon on 11-18-2023 ALP [Catalytic activity/Vol] 44 U/L 34-104 [facility] Aspartate aminotransferase [ Enzymatic activity/volume] in Serum or PlasmaOrdered By: Dale Mckeon on 11-18-2023 AST [Catalytic activity/Vol] 17 U/L 13-39 [facility] Basophils Auto (Bld) [#/Vol] Ordered By: Dale Mckeon on 11-18-2023 Basophils (Bld) [#/Vol] N/A [facility] Basophils/100 WBC Auto (Bld) Ordered By: Dale Mckeon on 11-18-2023 Basophils/100 WBC (Bld) N/A [facility] Bilirubin.total [Mass/volume ] in Serum or PlasmaOrdered By: Dale Mckeon on 11-18-2023 Bilirubin [Mass/Vol] 0.3 mg/dL 0.3-1.0 [facility] Comprehensive Metabolic Pane will 11-18-2023 Albumin [Mass/Vol] 2.4 g/dL Low 3.5-5.7 [facility] Comment on above: Performed By: #### M G, TSH3, CMP, DIFF CBC, T4F #### [facility] [address] Albumin/Globulin [Mass ratio] 1.6 {ratio} Normal [facility] Comment on above: Performed By: #### M G, TSH3, CMP, DIFF CBC, T4F #### [facility] [address] ALP [Catalytic activity/Vol] 44 U/L Normal 34-104 [facility] Comment on above: Performed By: #### M G, TSH3, CMP, DIFF CBC, T4F #### [facility] [address] [place] [id number] [facility] ALT [Catalytic activity/Vol] 14 U/L Normal 7-52 [facility] Comment on above: Performed By: #### M G, TSH3, CMP, DIFF CBC, T4F #### [facility] [address] [place] [address] [place] Anion gap [Moles/Vol] 8.8 mmol/L Normal 6.0-15.0 [facility] Comment on above: Performed By: #### M G, TSH3, CMP, DIFF CBC, T4F #### [facility] [address] [place] [id number] [place] AST [Catalytic activity/Vol] 17 U/L Normal 13-39 [facility] Comment on above: Performed By: #### M G, TSH3, CMP, DIFF CBC, T4F #### [facility] [address] [place] [address] Bilirubin [Mass/Vol] 0.3 mg/dL Normal 0.3-1.0 [facility] Comment on above: Performed By: #### M G, TSH3, CMP, DIFF CBC, T4F #### [facility] [address] [place] [address] Calcium [Mass/Vol] 7.3 mg/dL Low 8.6-10.3 [facility] Comment on above: Performed By: #### M G, TSH3, CMP, DIFF CBC, T4F #### [address] Chloride [Moles/Vol] 105 mmol/L Normal 98-107 [facility] Comment on above: Performed By: #### M G, TSH3, CMP, DIFF CBC, T4F #### [address] CO2 [Moles/Vol] 28.2 mmol/L Normal 21.0-31.0 [facility] Comment on above: Performed By: #### M G, TSH3, CMP, DIFF CBC, T4F #### [address] Creatinine [Mass/Vol] 0.46 mg/dL Low 0.60-1.20 [facility] Comment on above: Performed By: #### M G, TSH3, CMP, DIFF CBC, T4F #### [address] Creatinine Clr Calc Pharmacy 50.26 Normal [facility] Comment on above: Performed By: #### M G, TSH3, CMP, DIFF CBC, T4F #### [place] [address] [place] GFR/1.73 sq M.predicted MDRD (S/P/Bld) [Vol rate/Area] mL/min/{1.73_m2} Normal [facility] Comment on above: Performed By: #### M G, TSH3, CMP, DIFF CBC, T4F #### [facility] [address] Globulin (S) [Mass/Vol] 1.5 g/dL Normal [facility] Comment on above: Performed By: #### M G, TSH3, CMP, DIFF CBC, T4F #### [facility] [address] Glucose [Mass/Vol] 93 mg/dL Normal 70-100 [facility] Comment on above: Result Comment: [place] Glucose Reference Range is dependent on time and content of last meal. Glucose of more than 200 mg/dL in a nonstressed, ambulatory subject supports the diagnosis of Diabetes Mellitus. ADA recommended reference range Performed By: #### M G, TSH3, CMP, DIFF CBC, T4F #### [facility] [address] Potassium [Moles/Vol] 4.0 mmol/L Normal 3.5-5.1 [facility] Comment on above: Performed By: #### M G, TSH3, CMP, DIFF CBC, T4F #### [facility] [address] Protein [Mass/Vol] 3.9 g/dL Low 6.4-8.9 [facility] Comment on above: Performed By: #### M G, TSH3, CMP, DIFF CBC, T4F #### [facility] [address] [place] [id number] [facility] Sodium [Moles/Vol] 138 mmol/L Normal 136-145 [facility] Comment on above: Performed By: #### M G, TSH3, CMP, DIFF CBC, T4F #### [facility] [address] [place] [id number] [place] Urea nitrogen [Mass/Vol] 24 mg/dL Normal 7-25 [facility] Comment on above: Performed By: #### M G, TSH3, CMP, DIFF CBC, T4F #### [facility] [address] [place] [address] [place] Diff and CBCon 11-18-2023 Erythrocyte distribution width (RBC) [Ratio] 17.2 % High 11.9-15.3 [facility] Comment on above: Performed By: #### M G, TSH3, CMP, DIFF CBC, T4F #### [address] Hematocrit (Bld) [Volume fraction] 16.0 % Off scale low 34.0-46.4 [facility] Comment on above: Result Comment: Crit ical value result called at 0759 on 11/18/23 Performed By: #### M G, TSH3, CMP, DIFF CBC, T4F #### [address] Hemoglobin (Bld) [Mass/Vol] 5.6 g/dL Low 11.8-15.4 [facility] Comment on above: Performed By: #### M G, TSH3, CMP, DIFF CBC, T4F #### [address] MCH (RBC) [Entitic mass] 32.8 pg Normal 24.7-34.3 [facility] Comment on above: Performed By: #### M G, TSH3, CMP, DIFF CBC, T4F #### [address] MCV (RBC) [Entitic vol] 93.3 fL Normal 80-100 [facility] Comment on above: Performed By: #### M G, TSH3, CMP, DIFF CBC, T4F #### [address] Mean Corpuscular HGB Conc 35.2 g/dL High 32.0-35.0 [facility] Comment on above: Performed By: #### M G, TSH3, CMP, DIFF CBC, T4F #### [address] Platelet Estimate Normal Normal Normal [facility] Comment on above: Performed By: #### M G, TSH3, CMP, DIFF CBC, T4F #### [address] Platelet mean volume (Bld) [Entitic vol] 7.8 fL Normal 6.3-10.7 [facility] Comment on above: Result Comment: PERF ORMED BY: [place] [address] PATHOLOGIST PATIENT ACCOUNTS SPECIALIST EVY GARCIA M.D. Performed By: #### M G, TSH3, CMP, DIFF CBC, T4F #### [address] Platelet Morphology Normal Normal Normal [facility] Comment on above: Result Comment: PERF ORMED BY: [place] [address] PATHOLOGIST PATIENT ACCOUNTS SPECIALIST EVY GARCIA M.D. Performed By: #### M G, TSH3, CMP, DIFF CBC, T4F #### [place] [address] [place] Platelets (Bld) [#/Vol] 332 10*3/uL Normal 150-450 [facility] Comment on above: Performed By: #### M G, TSH3, CMP, DIFF CBC, T4F #### [place] [address] [place] RBC (Bld) [#/Vol] 1.72 10*6/uL Low 3.60-5.00 [facility] Comment on above: Performed By: #### M G, TSH3, CMP, DIFF CBC, T4F #### [place] [address] [place] WBC (Bld) [#/Vol] 10.9 10*3/uL Normal 3.8-11.6 [facility] Comment on above: Performed By: #### M G, TSH3, CMP, DIFF CBC, T4F #### [place] [address] [place] Eosinophils Auto (Bld) [#/Vo l]Ordered By: Dale Mckeon on 11-18-2023 Eosinophils (Bld) [#/Vol] N/A [facility] Eosinophils/100 WBC Auto (Bl d)Ordered By: Dale Mckeon on 11-18-2023 Eosinophils/100 WBC (Bld) N/A [facility] Free T4 (Free Thyroxine)on 0 11-18-2023 Free T4 [Mass/Vol] 1.10 ng/dL Normal 0.61-1.12 [facility] Comment on above: Performed By: #### C BCNO, MG #### [address] Globulin Calc (S) [Mass/Vol] Ordered By: Dale Mckeon on 11-18-2023 Globulin (S) [Mass/Vol] 1.5 g/dL [facility] Hemoglobin and Hematocriton 11-18-2023 Hematocrit (Bld) [Volume fraction] 22.2 % Low 34.0-46.4 [facility] Comment on above: Result Comment: PERF ORMED BY: [place] [address] PATHOLOGIST PATIENT ACCOUNTS SPECIALIST EVY GARCIA M.D. Performed By: #### C BCNO, MG #### [address] Hemoglobin (Bld) [Mass/Vol] 7.7 g/dL Low 11.8-15.4 [facility] Comment on above: Performed By: #### C BCNO, MG #### [address] LeukoReduced RBCon LeukoReduced RBC TRANSFUSED 11/18/23 1440 Normal [facility] Lymphocytes Auto (Bld) [#/Vo l]Ordered By: Dale Mckeon on 11-18-2023 Lymphocytes (Bld) [#/Vol] N/A [facility] Lymphocytes/100 WBC Auto (Bl d)Ordered By: Dale Mckeon on 11-18-2023 Lymphocytes/100 WBC (Bld) N/A [facility] Magnesiumon 11-18-2023 Magnesium [Mass/Vol] 1.6 mg/dL Low 1.9-2.7 [facility] Comment on above: Performed By: #### M G, TSH3, CMP, DIFF CBC, T4F #### [address] Monocytes Auto (Bld) [#/Vol] Ordered By: Dale Mckeon on 11-18-2023 Monocytes (Bld) [#/Vol] N/A [facility] Monocytes/100 WBC Auto (Bld) Ordered By: Dale Mckeon on 11-18-2023 Monocytes/100 WBC (Bld) N/A [facility] Neutrophils Auto (Bld) [#/Vo l]Ordered By: Dale Mckeon on 11-18-2023 Neutrophils (Bld) [#/Vol] N/A [facility] Neutrophils/100 WBC Auto (Bl d)Ordered By: Dale Mckeon on 11-18-2023 Neutrophils/100 WBC (Bld) N/A [facility] Nucleated erythrocytes [Pres ence] in Blood by Automated countOrdered By: Dale Mckeon on 11-18-2023 Nucleated RBC Auto Ql (Bld) N/A [facility] Platelet adequacy [Presence] in Blood by Light microscopyOrdered By: Dale Mckeon on 11-18-2023 Platelets LM Ql (Bld) Normal Normal [facility] Platelet morphology finding [Identifier] in BloodOrdered By: Dale Mckeon on 11-18-2023 Platelet morphology finding Nom (Bld) Normal Normal [facility] Protein [Mass/volume] in Ser um or PlasmaOrdered By: Dale Mckeon on 11-18-2023 Protein [Mass/Vol] 3.9 g/dL 6.4-8.9 [facility] RBC morphologyOrdered By: Krystina Mckeon on 11-18-2023 RBC morphology finding Nom (Bld) N/A [facility] Serum or plasma albumin/glob ulin mass ratioOrdered By: Dale Mckeon on 11-18-2023 Albumin/Globulin [Mass ratio] 1.6 {ratio} [facility] Thyroid Stimulating Hormoneo n 11-18-2023 TSH Qn 5.61 m[IU]/L High 0.45-5.33 [facility] Comment on above: Result Comment: PERF ORMED BY: [facility] [address] [place] [address] PATHOLOGIST PATIENT ACCOUNTS SPECIALIST EVY GARCIA M.D. Performed By: #### C BCRONEY, MG #### [facility] [address] Thyrotropin [Units/volume] i n Serum or PlasmaOrdered By: Frantz Nieves on 11-18-2023 TSH Qn 5.61 m[IU]/L 0.45-5.33 [facility] Thyroxine (T4) free [Mass/vo lume] in Serum or PlasmaOrdered By: Frantz Nieves on 11-18-2023 Free T4 [Mass/Vol] 1.10 ng/dL 0.61-1.12 [facility] Type and Screenon 11-18-2023 ABO and Rh group Nom (Bld) Blood group A Rh(D) positive Normal [facility] Comment on above: Order [...] 11-18-2023 WBC (Bld) [#/Vol] 10.9 10*3/uL 3.8-11.6 [facility] Folate [Mass/volume] in Seru m or PlasmaOrdered By: Dale Mckeon on 11-17-2023 Folate [Mass/Vol] 15.0 ng/mL >5.9 [facility] Comment on above: Folate reference ran ge: >5.9 ng/mlThe WHO technical consultation on folate and vitamin [id number] has determined that folate concentrations lessthan 4 ng/ml are considered deficient. Hemoglobin and Hematocriton 11-17-2023 Hematocrit (Bld) [Volume fraction] 20.2 % Low 34.0-46.4 [facility] Comment on above: Result Comment: PERF ORMED BY: [place] [address] PATHOLOGIST PATIENT ACCOUNTS SPECIALIST EVY GARCIA M.D. Performed By: #### C BCNO, MG #### [facility] [address] [place], [place] [id number] [facility] Hemoglobin (Bld) [Mass/Vol] 6.9 g/dL Low 11.8-15.4 [facility] Comment on above: Performed By: #### C BCNO, MG #### [address] Hematocrit (Bld) [Volume fraction] 21.5 % Low 34.0-46.4 [facility] Comment on above: Result Comment: PERF ORMED BY: [place] [address] PATHOLOGIST PATIENT ACCOUNTS SPECIALIST EVY GARCIA M.D. Performed By: #### C BCNO, MG #### [address] Hemoglobin (Bld) [Mass/Vol] 7.3 g/dL Low 11.8-15.4 [facility] Comment on above: Performed By: #### C BCNO, MG #### [address] Vit. B12/Folate Profileon Cobalamin (Vitamin B12) [Mass/Vol] 816 pg/mL Normal 180-914 [facility] Comment on above: Performed By: #### C BCNO, MG #### [address] Folate 15.0 ng/mL Normal >5.9 [facility] Comment on above: Result Comment: Maribel te reference range: >5.9 ng/ml The WHO technical consultation on folate and vitamin b12 deficiencies has determined that folate concentrations less than 4 ng/ml are considered deficient. PERFORMED BY: [place] [address] PATHOLOGIST PATIENT ACCOUNTS SPECIALIST EVY GARCIA M.D. Performed By: #### C BCNO, MG #### [address] Vitamin B12 ser/plasOrdered By: Dale Mckeon on 11-17-2023 Cobalamin (Vitamin B12) [Mass/Vol] 816 pg/mL 180-914 [facility] REVERSE T3on 08-29-2022 Reverse T3, Serum 23.1 ng/dL Normal 9.2-24.1 [facility] Comment on above: Result Comment: This test was developed and its performance characteristics determined by [facility]. It has not been cleared or approved by the Food and Drug Administration. Performed By: #### R EVRT3 #### [facility] [address] [place] [address] Dr. Jin Hodges T3, TOTAL (TRIIODOTHYRONINE) on 08-27-2022 T3, TOTAL 136 ng/dL Normal 71-180 [facility] Comment on above: Performed By: #### T 3TOTAL #### [facility] [address] [place] [address] Dr. Jin Hodges FREE T3on 08-26-2022 FREE T3 2.98 pg/mlL Normal 2.18-3.98 [facility] Comment on above: Performed By: #### F T3, TSH #### [facility] [address] [place] [address] Dr. Jin Hodges FREE T4on 08-26-2022 Free T4 [Mass/Vol] 0.81 ng/dL Normal 0.76-1.46 [facility] Comment on above: Performed By: #### F T4 #### [facility] [address] [place] [address] Dr. Jin Hodges TSHon 08-26-2022 TSH 0.561 uIU/mL Normal 0.358-3.74 0 [facility] Comment on above: Performed By: #### F T3, TSH #### [facility] [address] [place] [address] Dr. Jin Hodges REVERSE T3on 03-05-2022 Reverse T3, Serum 21.3 ng/dL Normal 9.2-24.1 [facility] Comment on above: Result Comment: This test was developed and its performance characteristics determined by [facility]. It has not been cleared or approved by the Food and Drug Administration. Performed By: #### R EVRT3 #### [facility] [address] [place] [address] Dr. Jin Hodges T3, TOTAL (TRIIODOTHYRONINE) on 03-01-2022 T3, TOTAL 123 ng/dL Normal 71-180 [facility] Comment on above: Performed By: #### T 3TOTAL #### [facility] [address] [place] [address] Dr. Jin Hodges FREE T3on 02-28-2022 FREE T3 3.10 pg/mlL Normal 2.18-3.98 [facility] Comment on above: Performed By: #### T SH, FT3 #### [facility] [address] [place] [address] Dr. Jin Hodges FREE T4on 02-28-2022 Free T4 [Mass/Vol] 0.92 ng/dL Normal 0.76-1.46 [facility] Comment on above: Performed By: #### F T4 #### [facility] [address] [place] [address] Dr. Jin Hodges TSHon 02-28-2022 TSH 0.133 uIU/mL Critically low 0.358-3.74 0 [facility] Comment on above: Performed By: #### T SH, FT3 #### [facility] [address] [place] [address] Dr. Jin Hodges Vital Signs Date Time Vital Sign Value Performing Clinician Facility 01-09-2025 13:55-0400 Body height 162.6 cm Catracho Sheriff MD Work Phone: [facility] 01-09-2025 13:55-0400 Body mass index (BMI) [Ratio] 25.23 kg/m2 Catracho Sheriff MD Work Phone: [facility] 01-09-2025 13:55-0400 Body weight 66.68 kg Catracho Sheriff MD Work Phone: [facility] 01-09-2025 13:55-0400 Heart rate 89 /min Catracho Sheriff MD Work Phone: [facility] 01-09-2025 13:55-0400 SaO2% (BldA) [Mass fraction] 90 % Catracho Sheriff MD Work Phone: [facility] 07-28-2024 14:25-0500 Body height 162.6 cm [facility] 07-28-2024 14:25-0500 Body mass index (BMI) [Ratio] 24.2 kg/m2 St[facility] 5 [facility] 07-28-2024 14:25-0500 Body weight 63.96 kg Stcz 5 [facility] 06-27-2024 14:29-0500 Body height 162.6 cm Stcz 4 [facility] 06-27-2024 14:29-0500 Body mass index (BMI) [Ratio] 25.4 kg/m2 [facility] 06-27-2024 14:29-0500 Body weight 67.13 kg Stcz 4 [facility] 05-02-2024 08:54-0400 Body height 162.6 cm Catracho Sheriff MD Work Phone: [facility] 05-02-2024 08:54-0400 Body mass index (BMI) [Ratio] 24.2 kg/m2 Catracho Sheriff MD Work Phone: [facility] 05-02-2024 08:54-0400 Body weight 63.96 kg Catracho Sheriff MD Work Phone: [facility] 04-28-2024 08:56-0400 Body height 162.6 cm Catracho Sheriff MD Work Phone: [facility] 04-28-2024 08:56-0400 Body mass index (BMI) [Ratio] 24.2 kg/m2 Catracho Sheriff MD Work Phone: [facility] 04-28-2024 08:56-0400 Body weight 63.96 kg Catracho Sheriff MD Work Phone: [facility] 04-26-2024 16:21-0400 Body height 162.6 cm Catracho Sheriff MD Work Phone: [facility] 04-26-2024 16:21-0400 Body mass index (BMI) [Ratio] 24.2 kg/m2 Catracho Sheriff MD Work Phone: [facility] 04-26-2024 16:21-0400 Body weight 63.96 kg Catracho Sheriff MD Work Phone: [facility] 04-14-2024 09:26-0400 Body height 162.6 cm Catracho Sheriff MD Work Phone: [facility] 04-14-2024 09:26-0400 Body mass index (BMI) [Ratio] 24.2 kg/m2 Catracho Sheriff MD Work Phone: [facility] 04-14-2024 09:26-0400 Body weight 63.96 kg Catracho Sheriff MD Work Phone: [facility] 03-29-2024 15:37-0400 Body height 162.6 cm Stcz 4 [facility] [employer] 03-29-2024 15:37-0400 Body mass index (BMI) [Ratio] 24.2 kg/m2 Stcz 4 [facility] [employer] 03-29-2024 15:37-0400 Body weight 63.96 kg Stcz 4 [employer] 01-29-2024 13:20-0400 Diastolic blood pressure 59 mm[Hg] Nicky Ugarte MD Work Phone: [facility] [employer] 01-29-2024 13:20-0400 Heart rate 73 /min Nicky Ugarte MD Work Phone: [facility] [employer] 01-29-2024 13:20-0400 Respiratory rate 17 /min Nicky Ugarte MD Work Phone: [facility] [employer] 01-29-2024 13:20-0400 SaO2% (BldA) [Mass fraction] 89 % Nicky Ugarte MD Work Phone: [facility] [employer] 01-29-2024 13:20-0400 Systolic blood pressure 115 mm[Hg] Nicky Ugarte MD Work Phone: [facility] [employer] 01-29-2024 12:56-0400 Body temperature 98.71 [degF] Nicky Ugarte MD Work Phone: [employer] 01-29-2024 10:57-0400 Body height 162.6 cm Nicky Ugarte MD Work Phone: [facility] [employer] 01-29-2024 10:57-0400 Body mass index (BMI) [Ratio] 24.19 kg/m2 Nicky Ugarte MD Work Phone: [facility] [employer] 01-29-2024 10:57-0400 Body weight 63.96 kg Nicky Ugarte MD Work Phone: [facility] [facility] 12-03-2023 15:31-0400 Heart rate 69 /min Ray De LaC ruz MD Work Phone: [facility] [employer] 12-03-2023 15:31-0400 SaO2% (BldA) [Mass fraction] 94 % Ray De La Cruz MD Work Phone: [employer] 12-03-2023 11:02-0400 Body temperature 98.01 [degF] Ray De La Cruz MD Work Phone: [employer] 12-03-2023 11:02-0400 Diastolic blood pressure 57 mm[Hg] Ray De La Cruz MD Work Phone: [employer] 12-03-2023 11:02-0400 Respiratory rate 18 /min Ray De La Cruz MD Work Phone: [employer] 12-03-2023 11:02-0400 Systolic blood pressure 108 mm[Hg] Ray De La Cruz MD Work Phone: [employer] 12-02-2023 06:00-0400 Body mass index (BMI) [Ratio] 34.38 kg/m2 Ray De La Cruz MD Work Phone: [employer] 12-02-2023 06:00-0400 Body weight 88 kg Ray De La Cruz MD Work Phone: [employer] 11-30-2023 15:24-0400 Body height 160 cm Ray De La Cruz MD Work Phone: [facility] 11-21-2023 15:01-0400 Body temperature 97.7 [degF] MD Catracho Sheriff Work Phone: [facility] 11-21-2023 15:01-0400 Diastolic blood pressure 54 mm[Hg] MD Catracho Sheriff Work Phone: [facility] 11-21-2023 15:01-0400 Heart rate 73 /min MD Catracho Sheriff Work Phone: [facility] 11-21-2023 15:01-0400 Respiratory rate 20 /min MD Catracho Sheriff Work Phone: [facility] 11-21-2023 15:01-0400 SaO2% (BldA) [Mass fraction] 96 % MD Catracho Sheriff Work Phone: [facility] 11-21-2023 15:01-0400 Systolic blood pressure 108 mm[Hg] MD Catracho Sheriff Work Phone: [facility] 11-21-2023 05:33-0400 Body weight 73.5 kg MD Catracho Sheriff Work Phone: [facility] 11-20-2023 13:22-0400 Body height 160.02 cm MD Catracho Sheriff Work Phone: [facility] 11-19-2023 00:00-0400 Inhaled oxygen flow rate 2 L/min MD Catracho Sheriff Work Phone: [facility] 08-25-2023 10:17-0500 Body height 162.6 cm Catracho Sheriff MD Work Phone: [facility] 08-25-2023 10:17-0500 Body mass index (BMI) [Ratio] 25.06 kg/m2 Catracho Sheriff MD Work Phone: [facility] 08-25-2023 10:17-0500 Body weight 66.22 kg Catracho Sheriff MD Work Phone: [facility] Healthcare Encounters Encounter Date Encounter Type Care Provider Facility Start: 03-29-2025 End: 03-29-2025 Clinisync Result Encounter Catracho Sheriff MD Work Phone: [facility] External Department Unsolicited Start: 03-29-2025 End: 03-29-2025 Clinisync Result Encounter Catracho Sheriff MD Work Phone: [facility] External Department Unsolicited Start: 03-08-2025 End: 03-08-2025 Refill Aimee Truong RN Work Phone: [facility] Comment on above: Chronic pain syndrom e (Primary Dx); Paroxysmal atrial fibrillation (HCC); Fibromyalgia Start: 02-08-2025 End: 02-08-2025 Telephone encounter Apoorva Bruno EXTENSION SERVICE SPECIALIST IN CHARGE Work Phone: [facility] Start: 01-19-2025 End: 01-19-2025 Refill Aimee Truong RN Work Phone: [facility] Comment on above: Peripheral edema (Pr imary Dx); Duodenal stricture (HHS-HCC) Start: 01-09-2025 End: 01-09-2025 Office outpatient visit 40 minutes Catracho Sheriff MD Work Phone: [facility] Comment on above: Closed head injury, sequela; Fall at home, subsequent encounter; Encounter for examination following treatment at hospital; Chronic pain syndrome; Generalized anxiety disorder ; Sleep arousal disorder; Postsurgical hypothyroidism ; ESS (euthyroid sick syndrome); Chronic fatigue Start: 01-09-2025 End: 01-09-2025 ambulatory CATRACHO SHERIFF Not Available Start: 12-29-2024 End: 12-29-2024 Refill Catracho Sheriff MD Work Phone: [facility] Comment on above: Chronic pain syndrom e Start: 10-04-2024 End: 10-04-2024 ambulatory CATRACHO SHERIFF Not Available Start: 09-19-2024 End: 09-19-2024 Refill Catracho Sheriff MD Work Phone: [facility] Comment on above: Generalized anxiety disorder (CMS/HCC) Start: 07-28-2024 End: 08-01-2024 ambulatory CATRACHO SHERIFF [facility] Start: 07-28-2024 End: 08-01-2024 Subsequent hospital visit by physician Natalie Pat Rm 5 [facility] Pre-Admit Testing Start: 07-13-2024 End: 07-13-2024 Bamboo [...] Start: 06-27-2024 End: 07-01-2024 ambulatory CATRACHO SHERIFF [facility] Start: 06-27-2024 End: 07-01-2024 Subsequent hospital visit by physician Natalie Pat Rm 4 [facility] Pre-Admit Testing Start: 06-21-2024 End: 06-21-2024 Telephone [...] radiculopathy; Sleep arousal disorder; Generalized anxiety disorder ([facility]/HCC); Controlled substance agreement signed; Polypharmacy; Duodenal stricture; Venous stasis ulcer of other part of left lower leg limited to breakdown of skin without varicose veins ([facility]) Start: 04-14-2024 End: 04-14-2024 ambulatory CATRACHO SHERIFF Not Available Start: 04-12-2024 End: 04-12-2024 ambulatory CATRACHO Cobb [facility] Start: 03-29-2024 End: 04-02-2024 [facility] Jordyn [facility] Start: 03-29-2024 End: 04-02-2024 Subsequent hospital visit by physician Natalie RIGGS Pre-Admit Testing Start: 03-01-2024 End: 03-01-2024 ambulatory LEONILA ZAPATA Not Available Start: 02-16-2024 End: 02-16-2024 ambulatory LEONILA ZAPATA Not Available Start: 01-29-2024 End: 01-29-2024 ambulatory [facility] Start: 01-29-2024 End: 01-29-2024 Subsequent hospital visit by physician Nicky Ugarte MD Work Phone: [facility] Comment on above: Duodenal ulcer Start: 01-26-2024 End: 01-26-2024 ambulatory CATRACHO SHERIFF Not Available Start: 01-19-2024 End: 01-19-2024 ambulatory CATRACHO SHERIFF Not Available Start: 01-18-2024 End: [facility] Start: 11-25-2023 End: 12-03-2023 [facility] Start: 11-25-2023 End: 12-03-2023 Evaluation and management of inpatient Ray De La Cruz MD Work Phone: [facility] Comment on above: Acute anemia (Primar y Dx) Start: 11-17-2023 Non-patient / Non-visit MD Vince Sheriff Work Phone: [facility] Work Phone: Start: 11-17-2023 End: 11-21-2023 Evaluation and management of inpatient Catracho Sheriff Facility:[facility] Start: 11-17-2023 End: 11-21-2023 Evaluation and management of inpatient MD Catracho Sheriff Work Phone: [facility] Work Phone: Start: 08-25-2023 End: 08-25-2023 Office outpatient visit [...] Date Procedure Procedure Detail Performing Clinician Start: 03-29-2025 ALL T3 FREE Catracho Sheriff MD Work Phone: Start: 07-06-2024 ALL HEMOGLOBIN Catracho Sheriff MD [...] Pollock MD Work Phone: Start: 6 End: 12-01-2023 ESOPHAGOGASTRODUODENOSCOPY CONTROL HEMORRHAGE Manasa Pollock [...] Phone: Start: 11-29-2023 Blood typing serologic abo Daenna Coyle MD Work Phone: Start: 11-29-2023 Ct [...] W/ REFLEX TO MG FOR LOW K Farnazemilia Burgos 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 Work Phone: Start: 11-27-2023 End: 11-28-2023 Transfusion of packed red blood cells Jasmine Leong 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 Work Phone: Start: 11-27-2023 Blood count hemoglobin Deanna Coyle MD Work Phone: Start: 11-27-2023 Blood count hemoglobin Nicky Ugarte MD Work Phone: Start: 11-27-2023 Vascular embolization or occlusion hemorrhage Jossy Tellez 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 Work Phone: Start: 11-27-2023 Radiologic exam chest [...] Start: 11-26-2023 Assay of magnesium Kathy Flores 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 Work Phone: Start: 11-26-2023 BASIC METABOLIC PANEL W/ REFLEX TO MG FOR LOW K Nicky Ugarte MD Work Phone: Start: 11-25-2023 Blood count hemoglobin Nicky Ugarte MD Work Phone: Start: 11-25-2023 LACTATE, SEPSIS Nicky Ugarte MD Work Phone: Start: 11-25-2023 Radiologic exam chest single view Radha dominik Lizeth Michaeltrinity 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 Work Phone: Start: 11-25-2023 Blood count hemoglobin Diana truong MD Work Phone: Start: 11-25-2023 End: 11-25-2023 ESOPHAGOGASTRODUODENOSCOPY CONTROL HEMORRHAGE Nicky Ugarte MD Work Phone: Start: 11-25-2023 LACTATE, SEPSIS Nicky Ugarte MD Work Phone: Start: 11-25-2023 End: 11-25-2023 Transfusion of packed red blood cells Jossy Aguilar Geoff Tucker CNP Work Phone: Start: 11-25-2023 End: 11-25-2023 Transfusion [...] typing serologic abo Kathy Flores APRN - RUN BOAT OPERATOR Work Phone: Start: 11-25-2023 BASIC METABOLIC PANEL W/ REFLEX TO MG FOR LOW K Kathy Flores APRN - RUN BOAT OPERATOR Work Phone: Start: 11-25-2023 Prothrombin time Kathy Flores APRN - RUN BOAT OPERATOR Work Phone: Start: 11-18-2023 Esophagogastroduodenoscopy MD Catracho lazo Work Phone: Start: 11-18-2023 Antibody screen Catracho Sehriff Comment on above: Order Comment: Transfuse now? Y Number of units to transfuse now? 1 Transfuse now? Y Number of units to transfuse now? 1 Transfuse now? Y Number of units to transfuse now? 1 Transfuse now? Y Number of units to transfuse now? 1 Result Comment: PERF ORMED BY: [facility] [place] [address] PATHOLOGIST PATIENT ACCOUNTS SPECIALIST EVY GARCIA M.D. Start: 09-12-2013 Colonoscopy Catracho Sheriff MD Work Phone: Plan of Treatment Date Care Activity Detail Author Start: 07-03-2025 End: 07-03-2025 Patient encounter procedure [facility] 00 Start: 04-03-2025 End: 04-03-2025 Patient encounter procedure [facility] 00 Start: 03-27-2025 Influenza vaccination [facility] Start: 03-11-2025 End: 01-09-2026 Thyroxine (T4) free [Mass/volume] in Serum or Plasma T4, free Lab Routine ESS (euthyroid sick syndrome) Chronic fatigue Postsurgical hypothyroidism Expected: 03/11/2025 (Approximate), Expires: 01/09/2026 [facility] Comment on above: Expected: 03/11/2025 (Approximate), Expi res: 01/09/2026 Start: 03-11-2025 End: 01-09-2026 Triiodothyronine (T3) Free [Mass/volume] in Serum or Plasma T3, free Lab Routine ESS (euthyroid sick syndrome) Chronic fatigue Postsurgical hypothyroidism Expected: 03/11/2025 (Approximate), Expires: 01/09/2026 [facility] Healthcare Work Phone: Comment on above: Expected: 03/11/2025 (Approximate), Expi res: 01/09/2026 Start: 01-23-2025 Influenza vaccination Influenza Vaccine (#1) [facility] Healthcare Comment on above: Postponed from 03/27/2024 (Patient Refus ed) Start: 01-04-2025 End: 01-04-2025 Patient encounter procedure [facility] Start: 10-31-2024 End: 05-02-2025 Thyrotropin [Units/volume] in Serum or Plasma TSH Lab Routine Postsurgical hypothyroidism (CMS/HCC) Expected: 10/31/2024 (Approximate), Expires: 05/02/2025 [facility] Work Phone: Comment on above: [...] Annual Wellness (AWV) Medicare Annual Wellness (AWV) [facility] Healthcare Start: 08-05-2024 End: 08-05-2024 Admission to same day surgery center 08/05/2024 2:45 PM EST - 08/05/2024 3:00 PM EST Surgery [facility] [address] [place] [address] Nicky Ugarte MD [address] [facility] [address] [place] [address] ESOPHAGOGASTRODUODENOSCOPY BIOPSY [facility] Comment on above: ESOPHAGOGASTRODUODENOSCOPY BIOPSY Start: 08-05-2024 End: 08-05-2024 Egd transoral biopsy single/multiple ESOPHAGOGASTRODUODENOSCOPY BIOPSY Duodenal ulcer 08/05/2024 2:45 PM EST [facility] Start: 08-05-2024 Subsequent hospital visit by physician 08/05/2024 2:45 PM EST Hospital Encounter [facility] [address] [place] [address] Nicky Ugarte MD [address] [facility] [address] [place] [address] [facility] Start: 07-27-2024 Annual Wellness Visit (Medicare Advantage) Annual Wellness Visit (Medicare Advantage) [facility] Start: 07-13-2024 End: 07-13-2024 Patient encounter procedure 07/13/2024 9:30 AM EST Office Visit [facility] [address] [place] [address] Catracho Sheriff MD [address] [place] [address] Arrived [facility] Comment on above: Arrived Start: 07-12-2024 End: 07-12-2024 Patient encounter procedure [facility] 1 00 Start: 07-05-2024 End: 07-05-2024 Admission to same day surgery center 07/05/2024 10:45 AM EST - 07/05/2024 11:00 AM EST Surgery [facility] [address] [place] [address] Nicky Ugarte MD [address] [facility] [address] [place] [address] ESOPHAGOGASTRODUODENOSCOPY WITH BIOPSY [facility] Comment on above: ESOPHAGOGASTRODUODENOSCOPY WITH BIOPSY Start: 07-05-2024 End: 07-05-2024 Egd transoral biopsy single/multiple ESOPHAGOGASTRODUODENOSCOPY BIOPSY Duodenal ulcer 07/05/2024 10:45 AM EST [facility] Start: 07-05-2024 Subsequent hospital visit by physician 07/05/2024 10:45 AM EST Hospital Encounter [facility] [address] [place] [address] Nicky Ugarte MD [address] [facility] [address] [place] [address] [facility] Start: 05-02-2024 End: 05-02-2025 CBC [...] [facility] [address] [place] [address] Catracho Sheriff MD [address] [place] [address] Arrived [facility] Comment on [...] [facility] [address] [facility] [address] [place] [address] Catracho Sheriff MD [address] [place] [address] (Fax) Chronic pain syndrome; Fibromyalgia; Primary osteoarthritis, left ankle and foot; Primary osteoarthritis, right ankle and foot; Spondylosis of lumbar region without myelopathy or radiculopathy; Sleep arousal disorder; Generalized anxiety disorder (CMS/HCC); Controlled substance agreement signed [facility] FM 100 Comment on above: Chronic pain syndrome; Fibromyalgia; Primary osteoarthritis, left ankle and foot; Primary osteoarthritis, right ankle and foot; Spondylosis of lumbar region without myelopathy or radiculopathy; Sleep arousal disorder; Generalized anxiety disorder (CMS/HCC); Controlled substance agreement signed Start: 04-12-2024 End: 04-12-2024 Admission to same day surgery center 04/12/2024 11:30 AM EDT - 04/12/2024 11:45 AM EDT Surgery [facility] [address] [place] [address] Nicky Ugarte MD [address] [facility] [address] [place] [address] ESOPHAGOGASTRODUODENOSCOPY BIOPSY POSSIBLE DILATION [facility] Comment on above: ESOPHAGOGASTRODUODENOSCOPY BIOPSY POSSIB LE DILATION Start: 04-12-2024 End: 04-12-2024 Egd transoral biopsy single/multiple ESOPHAGOGASTRODUODENOSCOPY BIOPSY Duodenal stricture 04/12/2024 11:30 AM EDT [facility] Start: 04-12-2024 Subsequent hospital visit by physician 04/12/2024 11:30 AM EDT Hospital Encounter [facility] [address] [place] [address] Nicky Ugarte MD [address] [facility] [address] [place] [address] [facility] Start: 03-27-2024 COVID-19 Vaccine ( season) COVID-19 Vaccine ( season) [facility] Start: 03-27-2024 Influenza vaccination Influenza Vaccine (#1) [facility] Start: 03-05-2024 End: 12-01-2024 CBC panel - Blood by Automated count CBC Lab Routine Acute anemia Expected: 03/05/2024, Expires: 12/01/2024 [facility] Comment on above: Expected: 03/05/2024, Expires: Start: 02-25-2024 Influenza vaccination [facility] Start: 01-29-2024 End: 01-29-2024 Egd transoral biopsy single/multiple ESOPHAGOGASTRODUODENOSCOPY BIOPSY Duodenal ulcer 01/29/2024 12:41 PM EDT [facility] Start: 12-09-2023 End: 12-09-2023 Patient encounter procedure 12/09/2023 10:30 AM EDT Office Visit [facility] [address] [facility] [address] [place] [address] Nicky Ugarte MD [address] [place] [address] EGD F/u 11/25/23 & 12/01/23 [facility] Comment on above: EGD F/u 11/25/23 & 12/01/23 Start: 11-21-2023 [facility] Start: 11-17-2023 Hospital admission [facility] Start: 11-17-2023 Referral to burrer machine [facility] Start: 10-21-2023 End: 10-21-2023 Patient encounter procedure 10/21/2023 10:30 AM EDT Office Visit [facility] [address] [place] [address] Catracho Sheriff MD [address] [place] [address] [facility] Start: 09-12-2023 Screening for malignant neoplasm of colon [facility] Start: 2023 Respiratory Syncytial Virus (RSV) or age 60 yrs+ (1 - 1-dose 75+ series) Respiratory Syncytial Virus (RSV) or age 60 yrs+ (1 - 1-dose 75+ series) [facility] Start: 07-27-2023 Annual Wellness Visit (Medicare Advantage) Annual Wellness Visit (Medicare Advantage) [facility] Start: 03-27-2023 COVID-19 Vaccine ( season) COVID-19 Vaccine ( season) [facility] Start: 03-27-2023 Influenza vaccination Influenza Vaccine (#1) [facility] Start: 2008 Respiratory Syncytial Virus (RSV) or age 60 yrs+ (1 - 1-dose 60+ series) Respiratory Syncytial Virus (RSV) or age 60 yrs+ (1 - 1-dose 60+ series) [facility] Start: 11-12-2004 DTaP/Tdap/Td vaccine (1 - Tdap) DTaP/Tdap/Td vaccine (1 - Tdap) [facility] Start: 2003 Screening for osteoporosis DEXA (modify frequency per FRAX score) [facility] [employer] Start: 1998 Screening for malignant neoplasm of lung [facility] Start: 1998 Shingles vaccine (1 of 2) Shingles vaccine (1 of 2) [facility] Start: 1993 Screening for malignant neoplasm of colon [facility] Start: 1988 Lipid panel Lipids [facility] [employer] Start: 1966 Hepatitis C screening Hepatitis C screen [facility] [employer] Start: 1960 Depression Screen Depression Screen [facility] Start: 1948 Screening for malignant neoplasm of colon [facility] End: 12-20-2023 Basic Metabolic Panel w/ Reflex to MG Basic Metabolic Panel w/ Reflex to MG Lab Routine Daily for 3 Weeks starting 11/30/2023 until 12/20/2023, 4 completed [facility] Comment on above: Daily for 3 Weeks starting 11/30/2023 un til 12/20/2023, 4 completed Body fluid culture Body fluid cu lture Microbiology Routine 04/26/2024 4:46 PM EDT [facility] Work Phone: End: 12-20-2023 CBC W Auto Differential panel - Blood CBC with Auto Differential Lab Routine Daily for 3 Weeks starting 11/30/2023 until 12/20/2023, 4 completed [employer] Comment on above: Daily for 3 Weeks starting 11/30/2023 un til 12/20/2023, 4 completed EKG 12 Lead EKG 12 Lead ECG Routine 12/03/2023 5:35 AM EDT [employer] EKG 12 Lead EKG 12 Lead ECG STAT 12/03/2023 5:35 AM EDT [employer] Work Phone: Helicobacter pylori Ag [Presence] in Stool by Immunoassay [facility] End: 11-29-2023 Hemoglobin and Hematocrit Hemoglobin and Hematocrit Lab Routine Post Transfusion Post Transfusion Post Transfustion until discontinued starting 11/28/2023 [employer] Comment on above: Post Transfusion Post Transfusion Post T ransfustion until discontinued starting 11/28/2023 End: 12-13-2023 Hemoglobin and Hematocrit Hemoglobin and Hematocrit Lab Routine Post Transfusion Post Transfusion Post Transfustion until discontinued starting 11/29/2023 [employer] Comment on above: Post Transfusion Post Transfusion Post T ransfustion until discontinued starting 11/29/2023 End: 12-14-2023 Hemoglobin and Hematocrit Hemoglobin and Hematocrit Lab Routine Post Transfusion Post Transfusion Post Transfustion until discontinued starting 11/30/2023 [employer] Comment on above: Post Transfusion Post Transfusion Post T ransfustion until discontinued starting 11/30/2023 End: 12-01-2023 INITIATE PACU OXYGEN THERAPY PROTOCOL Initiate PACU Oxygen Therapy Protocol Respiratory Care Routine Continuous until discontinued starting 12/01/2023 [employer] Work Phone: Comment on above: Continuous until discontinued starting 0 12/01/2023 Intermittent pulse oximetry Puls e Oximetry Spot Check Respiratory Care Routine As Needed until discontinued starting 11/27/2023 [employer] Comment on above: As Needed until discontinued starting Oxygen therapy [Mini mum Data Set] Initiate Oxygen Therapy Protocol Respiratory Care Routine As Needed until discontinued starting 11/25/2023 [employer] Comment on above: As Needed until discontinued starting Oxygen therapy [Mini mum Data Set] Initiate Oxygen Therapy Protocol Respiratory Care Routine As Needed until discontinued starting 01/29/2024 [employer] Work Phone: Comment on above: As Needed until discontinued starting Patient Education Duodenal Ulcer (DC) Pantoprazole Polysaccharide-Iron Complex [facility] Work Phone: Patient referral [facility] Work Phone: End: 11-27-2023 PREPARE RBC (CROSSMATCH), 1 Units PREPARE RBC (CROSSMATCH), 1 Units Blood Bank Routine Once for 1 Occurrences starting 11/27/2023 until 11/27/2023 [employer] Comment on above: Once for 1 Occurrences starting 11/27/19 until 11/27/2023 End: 11-29-2023 PREPARE RBC (CROSSMATCH), 1 Units PREPARE RBC (CROSSMATCH), 1 Units Blood Bank Routine Once for 1 Occurrences starting 11/29/2023 until 11/29/2023 [employer] Comment on above: Once for 1 Occurrences starting 11/29/19 until 11/29/2023 End: 11-30-2023 PREPARE RBC (CROSSMATCH), 1 Units PREPARE RBC (CROSSMATCH), 1 Units Blood Bank Routine Once for 1 Occurrences starting 11/30/2023 until 11/30/2023 [employer] Comment on above: Once for 1 Occurrences starting 11/30/19 until 11/30/2023 End: 11-29-2023 SPECIMEN REJECTION [employer] Comment on above: Once for 1 Occurrences starting 11/29/19 until 11/29/2023 End: 11-30-2023 SPECIMEN REJECTION [employer] Work Phone: Comment on above: Once for 1 Occurrences starting 11/30/19 until 11/30/2023 Surgical Pathology Surgical Path ology Lab Routine Duodenal ulcer Release Upon Ordering for 1 Occurrences starting 01/29/2024 [employer] Comment on above: Release Upon Ordering for 1 Occurrences starting 01/29/2024 End: 01-29-2024 SURGICAL PATHOLOGY REPORT SURGICAL PATHOLOGY REPORT Lab Routine Once for 1 Occurrences starting 01/29/2024 until 01/29/2024 [employer] Comment on above: Once for 1 Occurrences starting 01/29/20 24 until 01/29/2024 Transfuse RBC BON [facility] Immunizations Immunization Date Immunization Notes Care Provider Veronica plasencia 05-03-2021 Seasonal, trivalent, recombinant, injectable influenza vaccine, preservative free Catracho Sheriff MD Work Phone: [facility] 05-03-2021 influenza virus vacc ine, unspecified formulation Catracho Sheriff MD Work Phone: [facility] 12-03-2020 Pfizer Purple Cap SARS-CoV-2 Vaccination Catracho Sheriff MD Work Phone: [facility] 11-12-2020 Pfizer Purple Cap SARS-CoV-2 Vaccination Catracho Sheriff MD Work Phone: [facility] 09-26-2019 Influenza, High-dose Seasonal, Quadrivalent, Preservative Free Catracho Sheriff MD Work Phone: [facility] 09-26-2019 pneumococcal polysaccharide vaccine, 23 valent Catracho Sheriff MD Work Phone: [facility] 06-26-2018 influenza, injectabl e, quadrivalent, preservative free Catracho Sheriff MD Work Phone: [facility] 06-26-2018 pneumococcal conjuga te vaccine, 13 valent Catracho Sheriff MD Work Phone: [facility] 11-11-2004 pneumococcal polysaccharide vaccine, 23 valent Catracho Sheriff MD Work Phone: [facility] 11-11-2004 tetanus and diphther ia toxoids, adsorbed, preservative free, for adult use (5 Lf of tetanus toxoid and 2 Lf of diphtheria toxoid) Catracho Sheriff MD Work Phone: [facility] Payers Date Payer Category Payer Medicare [id number] 2023 Self-pay [id number] 2022 Medicare (Managed Care) [employer] Jeff EDICARE ADVANTAGE Member Subscriber Plan / Payer (Effective 2022-Present) Name: Jenny Ewing Relation to Subscriber: Self Name: Jenny Ewing Payer ID: [id number] (NAIC) Type: Not on file Address: [place] [id number] 2008 Medicare [id number] 1959 Medicare [id number] 1948 Unknown [id number] 2.16.840.1.953145.3.579.2. 593 1948 Unknown [id number] 2.16.840.1.872106.3.579.2. 593 1948 Unknown [id number] 2.16.840.1.588332.3.579.2. 175 1948 Unknown [id number] 2.16.840.1.411600.3.579.2. 176 1948 Unknown [id number] 2.16.840.1.704129.3.579.2. 176 1948 Unknown [id number] 2.16.840.1.105886.3.579.2. 176 1948 Unknown [id number] 2.16.840.1.483671.3.579.2. 176 1948 Unknown [id number] 2.16.840.1.244274.3.579.2. 176 1948 Unknown [id number] 2.16.840.1.152082.3.579.2. 176 1948 Unknown [id number] 2.16.840.1.836688.3.579.2. 1259 1948 Unknown [id number] 2.16.840.1.070102.3.579.2. 1258 1948 Unknown [id number] 2.16.840.1.976418.3.579.2. 125 1948 Unknown [id number] 2.16.840.1.293823.3.579.2. 1258 1948 Unknown [id number] 2.16.840.1.728355.3.579.2. 1258 1948 Unknown [id number] 2.16.840.1.992889.3.579.2. 1258 1948 Unknown [id number] 2.16.840.1.588615.3.579.2. 1258 1948 Unknown [id number] 2.16.840.1.034787.3.579.2. 1258 1948 Unknown [id number] 2.16.840.1.689395.3.579.2. 1258 1948 Unknown [id number] 2.16.840.1.023499.3.579.2. 1258 1948 Unknown [id number] 2.16.840.1.945151.3.579.2. 1259 Medicaid Medicaid [place] [id number] Medicare Medicare Outpatient [id number] Unknown HCAP/HFA/FAP Active [id number] Unknown [id number] 2.16.840.1.714116.3.579.2. 531 Social History Date Type Detail Facility Start: 08-13-2023 End: 03-29-2024 Tobacco smoking status NHIS Ex-smoker [facility] Start: 11-17-2023 End: 03-22-2024 History of tobacco use Current smoker [facility] End: 03-22-2024 History of tobacco use Cigarette Smoker [facility] Start: 08-13-2023 End: 03-29-2024 Tobacco use and exposure Smokeless tobacco non-user [facility] Start: 08-25-2023 End: 01-09-2025 Alcohol intake Ex-drinker (finding) [facility] Start: 08-25-2023 End: 12-23-2024 History of Social function [facility] Start: 08-25-2023 End: 12-23-2024 Tobacco use panel [facility] Start: 02-24-2023 Education 13 [facility] Start: 02-24-2023 Alcohol Comment Caffeine intak e: drinks decaf [facility] Start: 1950 Sex Assigned At Not on file [facility] Start: 1950 Sex Assigned At Female F [facility] Start: 11-25-2023 Tobacco smoking stat us NHIS Smokes tobacco daily [employer] Has the [employer], oil, or water check24 threatened to shut off services in your home in past 12Mo Patient declined [employer] (I/We) worried uri swan (my/our) food would run out before (I/we) got money to buy more. Never true [employer] How often do you nee d to [...] /State Functional Status Date Assessment Result Facility 01-09-2025 Patient Health Quest ionnaire 2 item (PHQ-2) [Reported] [facility] 11-21-2023 Functional status Patient at Baseline [facility] Work Phone: Mental Status Date Assessment Result Facility 11-21-2023 Cognitive function Cognitive Sta tus Patient at Baseline [facility] Work Phone: Clinical Notes 08-25-2023 to 03-08-2025 Aimee Truong RN - 03/08/2025 10:01 AM EDTTelephone Encounter - Catracho Sheriff MD - 02/08/2025 2:08 PM EDTTelephone Encounter - Catracho Sheriff MD - 02/08/2025 2:08 PM EDT Note Date & Type Note Facility 03-08-2025 History of Present illness Narrative Pt LM for CM, states that she will be out of Tramadol on Thursday. Last rx filll was 02/07, her next office appt is 04/03 with PCP documented in this encounter [facility] 02-08-2025 Telephone encounter Note Prescription sent [facility] 02-08-2025 Miscellaneous Notes Prescription sent documented in this encounter [facility] 02-08-2025 History of Present illness Narrative Message from pt requesting refill on Mirtazapine to be sent in by Thursday, stating she will be out on 02/14. documented in this encounter [facility] 01-19-2025 History of Present illness Narrative Pt requesting Rx[facility] documented in this encounter [facility] 01-09-2025 History of Present illness Narrative Images from the original note were not included. Patient ID: Jenny Ewing is a 74 y.o. female who presents for: Hospital Follow up Fall: Flowsheet Row Patient Outreach from 01/09/2025 in [facility] with Aimee Truong RN Hospital Information ED, Hospital or Custodial Facility Discharge? Hospital Patient has been contacted within two business days of discharge Yes Diagnosis Closed head injury, AMS, unspecified fall, hypothyroidism, COPD, HTN, Esophagitis Discharge Date 01/05/25 Discharged To: Home Setting Discharge Hospital [facility] Engagement Call Start Time 820 Admission Date 01/04/25 Medications Discharge medications reviewed and reconciled from hospital? Not applicable Does the patient have all medications ordered at discharge? Not applicable Nursing Interventions No intervention needed Is the patient taking all medications as directed (includes completed medication regime)? Yes Appointments Does the patient have a primary care provider? Yes [01/09] Nursing Interventions Verified appointment date/time/provider Does the patient have any upcoming specialty appointments? No Self Management Does patient have home health? -- [HH services were ordered at discharge, pt states she declined services when they called. Wants to go to out patient therapy at [facility]] Patient Teaching Does the patient have access to their discharge instructions? Yes Nursing Interventions Reviewed instructions with patient What is the patient's perception of their health status since discharge? Improving [States she is feeling better. Pt states her neck still hurts a little. No headache] Is the patient/caregiver able to teach back the hierarchy of who to call/visit for symptoms/problems? PCP, Specialist, Home Health nurse, Urgent Care, ED, 911 Yes Wrap Up Is the patient/caregiver familiar with Advance Care Planning? Yes Would the patient like more information on Advance Care Planning? No Wrap Up Additional Comments Seen in ER after a fall at home, lost her balance, fell onto back, hit head. Reported she lost consciousness. Taken to ER by EMS. TEST: labs, U/A-negative, CT cervical spine, CT head x 2. EKG. Admitted to hospital on telemetry, no over night events. No medication changes. Pt declined SNF, agreed to HH services. Received call from HH services, declined services. Wants outpatient PT/OT at [facility]. Pt's oxygen level did desaturate when walking, recovered with use of oxygen. Pt was encouraged to use oxygen when she is not smoking Call End Time 0840 The patient has with them today and independent historian; Her friend Radha. The independent historian is here to ensure that the information related to us in the HPI and review of systems is accurate. They are also here to help the patient to understand and follow through with treatment plans established today. Review of Systems Constitutional: Negative for chills, fatigue and fever. Musculoskeletal: Positive for arthralgias and myalgias. Neurological: Negative for weakness, light-headedness and headaches. Psychiatric/Behavioral: Negative for confusion, decreased concentration and sleep disturbance. The patient is nervous/anxious. Objective The patient is pleasant and in no acute distress. The head is normocephalic and atraumatic. Both eyes appear grossly normal without obvious lid pathology or icterus. Both ears hearing is grossly intact. The neck is supple and trachea is midline. No masses are appreciated. The anterior cervical lymphatics demonstrates shoddy bilateral nontender lymphadenopathy. There is no supraclavicular lymphadenopathy. The heart is regular rate and rhythm without S3, S4. No murmur. The patient has Prolonged expiratory respiratory pattern. The breath sounds are diffusely decreased but symmetrical without evidence of rhonchi or rales. No wheezing. The skin is warm and dry. In the area of her occiput she does have a small palpable lump from her contusion. Is not actually visible. The lower extremities have trace edema. Neurologic screening exam is nonfocal. The patient is alert. There is no overt gross evidence of cognitive impairment The patient has good eye contact and speech is clear. Appropriate affect. 01/19/2024 9:19 AM 02/16/2024 3:06 PM 04/14/2024 9:26 AM 04/26/2024 4:21 PM 04/28/2024 8:56 AM 05/02/2024 8:54 AM 10/04/2024 9:40 AM Vitals BMI 24.29 kg/m2 24.2 kg/m2 24.2 kg/m2 24.2 kg/m2 24.2 kg/m2 24.2 kg/m2 24.2 kg/m2 BSA (m2) 1.7 m2 1.7 m2 1.7 m2 1.7 m2 1.7 m2 1.7 m2 1.7 m2 Heart Rate 112 SpO2 90 % Height (in) 5' 4 5' 4 5' 4 5' 4 5' 4 5' 4 5' 4 Weight (lb) 141.5 141 141 141 141 141 141 Visit Report Report Report Report Report Report Report Report Allergies Allergen Reactions Ibuprofen Other Reaction(s): Other [...] tablets in the evening 270 tablet 1 busPIRone (Buspar) 15 MG tablet Take 1 [...] (20 mg) before bedtime. 180 tablet 1 gabapentin (Neurontin) 100 MG capsule Take 1 [...] by mouth every other day levothyroxine (Synthroid) 175 MCG tablet Take 1 tablet daily 90 tablet 1 mirtazapine (Remeron) 45 MG tablet Take 1 tablet (45 mg) by mouth at bedtime 30 tablet 0 Sumerduck-3 Fatty Acids (Fish Oil) 1000 MG capsule delayed-release Take by mouth oxygen (O2) gas Inhale continuously via nasal canula; to maintain pulse ox between 90-94%. pantoprazole (ProtoNix) 40 MG EC tablet Take 40 mg by mouth spironolactone (Aldactone) 50 MG tablet Take 1 tablet (50 mg) by mouth Daily Dose increase 90 tablet 1 STRONTIUM CITRATE Take 2 tablets by mouth Daily traMADol (Ultram) 50 MG tablet Take 2 tablets (100 mg) by mouth in the morning and 2 tablets (100 mg) at noon and 2 tablets (100 mg) in the evening and 2 tablets (100 mg) before bedtime. 240 tablet 1 traMADol (Ultram) 50 MG tablet Take 2 tablets (100 mg) by mouth every 6 (six) hours if needed for severe pain or moderate pain for up to 5 days 10 tablet 0 Turmeric (QC TUMERIC COMPLEX PO) Take 500 mg by mouth Daily zinc gluconate 50 MG tablet Take 50 mg by mouth See administration instructions. 1/2 tablet= 25mg Orally Once a day for 30 day(s) No current facility-administered medications on file prior to visit. 1. Closed head injury, sequela Acute problem that appears to be essentially resolved. I did discuss with her the possibility of obtaining a product like Idiro so she could call for help. 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 I did encourage this. 2. Fall at home, subsequent encounter She has had previous falls. She is somewhat unsteady on her feet. We discussed the possibility of physical therapy for both balance and gait and strength training, and she declined. 3. Encounter for examination following treatment at hospital This visit is prompted as a transition of care. The patient has been contacted by phone within 2 business days of discharge or at least 2 unsuccessful attempts were made to contact the patient within the 2 business days. Any available documents including; emergency room note, visit notes, consults, and discharge summary or continuity of care documents were reviewed. Any laboratory investigation or diagnostic imaging that was ordered by outside physicians and available was obtained and reviewed. The transition of care note is reviewed. a nseo-xk-acow evaluation is done today. Medical decision making is complex in degree. The patient is also due for regular office visit for her chronic medical problems 4. Chronic pain syndrome Chronic problem, stable, multifactorial, [...] to continue their activities of daily living. PDMP reviewed, Appears as expected. I specifically note the patient has one [...] need regular review and prescribing optimization. - DULoxetine (Cymbalta) [address] capsule; Take 2 capsules (40 mg) by mouth Daily Dispense: 180 capsule; Refill: 1 - traMADol (Ultram) 50 MG tablet; Take 2 tablets (100 mg) by mouth in the morning and 2 tablets (100 mg) at noon and 2 tablets (100 mg) in the evening and 2 tablets (100 mg) before bedtime. Dispense: 240 tablet; Refill: 1 - gabapentin (Neurontin) 100 MG capsule; Take 1 capsule (100 mg) by mouth in the morning and 1 capsule (100 mg) in the evening and 1 capsule (100 mg) before bedtime. Dispense: 270 capsule; Refill: 1 5. Generalized anxiety disorder Patient notes that the BuSpar has helped significantly. She denies side effects. - busPIRone (Buspar) 15 MG tablet; Take 0.5 tablet at breakfast and 0.5 tablet lunch, and 2 tablets at bedtime. Dispense: 270 tablet; Refill: 1 6. Sleep arousal disorder I did discuss with the patient that the tramadol can sometimes cause some insomnia although she has had problems with this since as long as I can remember. I discussed trying to decrease her bedtime dose down to 1 tablet and seeing how she would do with This and she verbalized agreement. - mirtazapine (Remeron) 45 MG tablet; Take 1 tablet (45 mg) by mouth at bedtime Dispense: 30 tablet; Refill: 0 7. Postsurgical hypothyroidism - T3, free; Future - T4, free; Future - T3, free - T4, free 8. ESS (euthyroid sick syndrome) - T3, free; Future - T4, free; Future - T3, free - T4, free 9. Chronic fatigue - T3, free; Future - T4, free; Future - T3, free - T4, free documented in this encounter [facility] 08-17-2024 Telephone encounter Note error [facility] 08-17-2024 Miscellaneous Notes error documented in this encounter [facility] 07-28-2024 History of Present illness Narrative Pre-op [...] lotion, powder, jewelry, piercings, perfume, makeup, nail german, hair accessories, or hair spray on the day of surgery. Wear loose comfortable clothing. Leave your valuables at home but bring a payment source for any after-surgery prescriptions you plan to fill at [facility]. Bring a storage case for any glasses/contacts. An adult who is responsible for you MUST drive you home and should be with you for the first 24 hours after surgery. The Day of Surgery: Arrive at [facility] Surgery Entrance at the time directed by your surgeon and check in at the desk. If you have a living will or healthcare power of transactional attorney, please bring a copy. You will be taken to the pre-op holding area where you will be prepared for surgery. A physical assessment will be performed by a nurse practitioner or housekeeper manager. Your IV will be started and you [...] EGD 08/05/24 documented in this encounter [facility] 07-13-2024 History of Present illness Narrative Images [...] down to the shoulder blades. She is rjfa-dk-jimpgmeepy tender in this area. Decreased range of [...] by mouth at bedtime 90 tablet 1 Sumerduck-3 Fatty Acids (Fish Oil) 1000 MG capsule [...] evaluation and management. documented in this encounter [facility] 06-27-2024 History of Present illness Narrative Pre-op [...] lotion, powder, jewelry, piercings, perfume, makeup, nail german, hair accessories, or hair spray on the day of surgery. Wear loose comfortable clothing. Leave your valuables at home but bring a payment source for any after-surgery prescriptions you plan to fill at [facility]. Bring a storage case for any glasses/contacts. An adult who is responsible for you MUST drive you home and should be with you for the first 24 hours after surgery. Son will ride in cab with her The Day of Surgery: Arrive at [facility] Surgery Entrance at the time directed by your surgeon and check in at the desk. If you have a living will or healthcare power of transactional attorney, please bring a copy. You will be taken to the pre-op holding area where you will be prepared for surgery. A physical assessment will be performed by a nurse practitioner or housekeeper manager. Your IV will be started and you [...] understanding of instructions documented in this encounter Elaine [facility] 06-21-2024 Telephone encounter Note RX sent L [facility] 06-21-2024 Miscellaneous Notes RX sent documented in this encounter [facility] 06-15-2024 Telephone encounter Note See CCM note. RX sent [facility] 06-15-2024 Miscellaneous Notes See CCM note. RX sent documented in this encounter [facility] 05-02-2024 History of Present illness Narrative Images [...] by mouth at bedtime 90 tablet 1 Sumerduck-3 Fatty Acids (Fish Oil) 1000 MG capsule [...] referral up to the vascular surgeon in [place]. Not sure if there is much he [...] Handicap Placard Lifetime documented in this encounter [facility] 04-28-2024 History of Present illness Narrative Images [...] by mouth at bedtime 90 tablet 1 Sumerduck-3 Fatty Acids (Fish Oil) 1000 MG capsule [...] develop a thrombophlebitis. documented in this encounter [facility] 04-26-2024 History of Present illness Narrative Images [...] by mouth at bedtime 90 tablet 1 Sumerduck-3 Fatty Acids (Fish Oil) 1000 MG capsule [...] met with resistance. documented in this encounter [facility] 04-14-2024 History of Present illness Narrative Images from the original note were not included. Patient ID: Jenny Ewing is a 73 y.o. female who presents for: She again is here with her friend Rahda who is helping her. Anxiety Patient is [...] by mouth at bedtime 90 tablet 1 Sumerduck-3 Fatty Acids (Fish Oil) 1000 MG capsule [...] seek medical care. documented in this encounter [facility] 03-29-2024 History of Present illness Narrative Pre-op [...] lotion, powder, jewelry, piercings, perfume, makeup, nail german, hair accessories, or hair spray on the day of surgery. Wear loose comfortable clothing. Leave your valuables at home but bring a payment source for any after-surgery prescriptions you plan to fill at [facility]. Bring a storage case for any glasses/contacts. An adult who is responsible for you MUST drive you home and should be with you for the first 24 hours after surgery. The Day of Surgery: Arrive at [facility] Surgery Entrance at the time directed by your surgeon and check in at the desk. If you have a living will or healthcare power of transactional attorney, please bring a copy. You will be taken to the pre-op holding area where you will be prepared for surgery. A physical assessment will be performed by a nurse practitioner or housekeeper manager. Your IV will be started and you [...] POSSIBLE DILATION- 04/12/2024 documented in this encounter [facility] 01-29-2024 Hospital Discharge instructions Drew [...] or neck pain documented in this encounter [facility] 12-03-2023 History of Present illness [...] Unable to assess Fluid Accumulation: Mild Extremities Diet Aid Strength: Not Performed Nutrition Assessment: Diet advanced [...] Measures: Height: 160 cm (5' 2.99 ) [place] Body Weight (IBW): 115 lbs (52 kg) [...] Used for Energy Requirements: Admission Energy (kcal/day): 5678-4233 kcals/day Weight Used for Protein Requirements: Admission Protein (g/day): 80 to 100 g/day Method Used for Fluid Requirements: 1 ml/kcal Fluid (ml/day): 7639-3948 mL/day or per MD Nutrition Diagnosis: Inadequate [...] Oral Nutrition Supplement Zenobia Negrete RD Contact: [phone] Images from the original note were not included. [facility] Office: [phone] Alvin Ma DO, Erick Burns DO, Varghese [...] Karime Keane DNP, Halima Mason CNP, Carmen Orozco CNP, Kathy Flores CNP, Farnaz Burgos CNP, ARTUR ColonC, ARTUR RodriguezC, Olivia Stiles CNP, Ying Singleton RUN BOAT OPERATOR, Vikas Laird, RUN BOAT OPERATOR, Mira Pina, RUN BOAT OPERATOR, Briana Lim, RUN BOAT OPERATOR, Shirley Johnson, FOUNTAIN OPERATOR, Jenny Denise, OSVALDO, Jasmine Leong, RUN BOAT OPERATOR, Janice Perla, RUN BOAT OPERATOR [facility] IN-PATIENT SERVICE [facility] Progress Note 12/03/2023 8:14 AM Name: Jenny Ewing Acct: [id number] Room: IP Day: 8 Admit Date: 11/25/2023 4:07 AM PCP: No primary care provider on file. Code Status: Full Code Subjective: C/C: GI bleed Interval History Status: stable. Overnight patient [facility] into [facility] with [facility]. Seen and examined bedside [...] of 6.6. received 1 unit transfusion at [facility]. 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 They were sent to her pharmacy [...] Intake/Output Summary (Last 24 hours) at 12/03/2023 08 Last data filed at 12/02/2023 2242 Gross [...] input(s): PROT , LABALBU , LABA1C , K0WUALJ , Y2RPLDK , FT4 , TSH , AST , ALT , LDH , GGT , ALKPHOS , BILITOT , BILIDIR , AMMONIA , AMYLASE , LIPASE , LACTATE , CHOL , HDL , CHOLHDLRATIO , TRIG , VLDL , MQV13DG , PHENYTOIN , PHENYF , URICACID , POCGLU in the last 72 hours. Invalid input(s): LABGGT , LDLCHOLESTEROL ABG:No results found for: POCPH , PHART , PH , POCPCO2 , YZI6SLV , PCO2 , POCPO2 , PO2ART , PO2 , POCHCO3 , VMY5FCG , HCO3 , NBEA , PBEA , BEART , BE , THGBART , THB , RBX3ALQ , WAIN9NKY , I9PDOZTB , O2SAT , FIO2 No results found [...] Yes Plan: New onset A-fib with RVR [id number] 5-currently in normal sinus rhythm. Evaluated by [...] SNF.. Carol Abreu MD 12/03/2023 8:14 AM [facility] Gastroenterology Progress Note Jenny Ewing is a [...] results for input(s): TIBC , FERRITIN , UPRTYQCF62 , FOLATE , OCCULTBLD in the last [...] contact me with any questions or concerns. Elaine [facility] Gastroenterology PATY Quijano CNP [phone] 12/02/2023 3:14 PM Estimated time of 20 [...] from the original note were not included. [facility] Office: [phone] Alvin Ma DO, Erick Burns DO, Varghese [...] Lugo MD, Bruce Pozo MD, Aida Montemayor, RUN BOAT OPERATOR, Nereyda Patiño, RUN BOAT OPERATOR, Vito Calabrese, RUN BOAT OPERATOR, Karime Keane, [facility], Halima Mason, RUN BOAT OPERATOR, Carmen Orozco, RUN BOAT OPERATOR, Kathy Flores, RUN BOAT OPERATOR, Farnaz Burgos, RUN BOAT OPERATOR, Maricel Burger, ARTURC, ARTUR RodriguezC, Olivia Stiles, RUN BOAT OPERATOR, Ying Singleton, RUN BOAT OPERATOR, Vikas Laird, RUN BOAT OPERATOR, Mira Pina, RUN BOAT OPERATOR, Briana Lim, RUN BOAT OPERATOR, Shirley Johnson, [facility], Jenny Denise, RUN BOAT OPERATOR, Jasmine Leong, RUN BOAT OPERATOR, Janice Perla, RUN BOAT OPERATOR [facility] IN-PATIENT SERVICE [facility] Progress Note 12/02/2023 9:48 AM Name: Jenny Ewing Acct: [id number] Room: IP Day: 7 Admit Date: 11/25/2023 [...] of 6.6. received 1 unit transfusion at [facility]. 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 They were sent to her pharmacy [...] , PHART , PH , POCPCO2 , UCB2DGY , PCO2 , POCPO2 , PO2ART , PO2 , POCHCO3 , JMI8QOB , HCO3 , NBEA , PBEA , BEART , BE , THGBART , THB , JUQ7TTT , WWIM2IOG , Z6GLIVRZ , O2SAT , FIO2 No results found [...] versus home with home care with daughter. 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 Carol Abreu MD 12/02/2023 9:48 AM Occupational Therapy Facility/Department: [facility]- [facility] Occupational Therapy Initial [...] of 6.6. received 1 unit transfusion at [facility]. 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 received 1 unit transfusion at [facility]. 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 They were sent to her pharmacy [...] Reassurance given and PT spoke with DC service planner and told pt's concerns. 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 [facility] Office: [phone] Alvin Ma DO, Erick Burns DO, Varghese [...] Karime Keane DNP, Halima Mason CNP, Carmen Orozco CNP, Kathy Flores CNP, Farnaz Burgos, OSVALDO, ARTUR ColonC, ARTUR RodriguezC, Olivia Stiles CNP, Ying Singleton CNP, Vikas Laird CNP, Mira Pina, RUN BOAT OPERATOR, Briana Lim, RUN BOAT OPERATOR, Shirley Johnson, FOUNTAIN OPERATOR, Jenny Denise, OSVALDO, Jasmine Leong, OSVALDO, Janice Perla, RUN BOAT OPERATOR [facility] IN-PATIENT SERVICE [facility] Progress Note 12/01/2023 3:27 PM Name: Jenny Ewing Acct: [id number] Room: Day: 6 Admit Date: 11/25/2023 4:07 AM [...] of 6.6. received 1 unit transfusion at [facility]. 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 They were sent to her pharmacy [...] this interval not displayed. Chemistry: Recent Labs 11/29/2391911/30/23 0204 12/01/23 0145 NA 135* 138 137 K 3.3* [...] , PHART , PH , POCPCO2 , UYS0JYT , PCO2 , POCPO2 , PO2ART , PO2 , POCHCO3 , PDR1WHF , HCO3 , NBEA , PBEA , BEART , BE , THGBART , THB , BWP1KNM , UQLT6XTA , D2WHUWDQ , O2SAT , FIO2 No results found [...] Count: Recent Labs 11/29/23 0911/29/23 1608 11/30/2320311/30/23 0711/30/23 2013 12/01/23 0145 12/01/23 1021 WBC 12.2* [...] 1.7 -- -- Liver Function: Recent Labs 05/05/24 0920 ALT 19 AST 27 ALKPHOS 45 [...] Unable to assess Fluid Accumulation: Mild Extremities Diet Aid Strength: Not Performed Nutrition Assessment: Pt started [...] Measures: Height: 160 cm (5' 2.99 ) [place] Body Weight (IBW): 115 lbs (52 kg) [...] Used for Energy Requirements: Admission Energy (kcal/day): 4166-9461 kcals/day Weight Used for Protein Requirements: Admission Protein (g/day): 80 to 100 g/day Method Used for Fluid Requirements: 1 ml/kcal Fluid (ml/day): 8114-9611 mL/day or per MD Nutrition Diagnosis: Inadequate [...] Too soon to determine Carla Scott [address], [place] Contact: [phone] Images from the original note were not included. [facility] Office: [phone] Alvin Ma DO, Erick Burns DO, Varghese [...] Calabrese CNP, Karime Keane, AAYUSH, Halima Mason, RUN BOAT OPERATOR, Carmen Orozco, RUN BOAT OPERATOR, Kathy Flores, RUN BOAT OPERATOR, Farnaz Burgos, RUN BOAT OPERATOR, Maricel Burger PAGarrettC, Alicia Veliz PA-C, Olivia Stiles RUN BOAT OPERATOR, Ying Singleton RUN BOAT OPERATOR, Vikas Laird RUN BOAT OPERATOR, Mira Pina, RUN BOAT OPERATOR, Briana Lim, RUN BOAT OPERATOR, Shirley Johnson, FOUNTAIN OPERATOR, Jenny Denise, RUN BOAT OPERATOR, Jasmine Leong RUN BOAT OPERATOR, Janice Perla, RUN BOAT OPERATOR [facility] IN-PATIENT SERVICE [facility] Progress Note 11/30/2023 12:31 PM Name: Jenny Ewing Acct: [id number] Room: IP Day: 5 Admit Date: 11/25/2023 [...] of 6.6. received 1 unit transfusion at [facility]. 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 They were sent to her pharmacy [...] , PHART , PH , POCPCO2 , CTV0NVQ , PCO2 , POCPO2 , PO2ART , PO2 , POCHCO3 , SAZ8UDG , HCO3 , NBEA , PBEA , BEART , BE , THGBART , THB , PTD0GXF , VCRX8XUV , L6RWTCSE , O2SAT , FIO2 No results found [...] Patient's name: Jenny Ewing Patient's account/billing number: [id number] Patient's Date of : 1950 Age: 73 y.o. Date of Admission: 11/25/2023 4:07 AM Length of stay during current admission: 5 Primary Care Physician: No primary care provider on file. Code Status: Full Code Mode of physician to physician communication: [x] Via telephone [] In person Date and time of sign-out: 11/30/2023 10:16 AM Accepting Internal Medicine BRIM RAISER: Karime Keane Accepting Medicine team: Intermed Accepting [...] the floor. Gino Quarles Emergency Medicine Resident [facility] 11/30/2023 10:16 AM INTENSIVE CARE UNIT Resident [...] 73 13 91 % 11/30/23 0430 (!) 98.4 F (36.9 C) Oral 73 17 92 % 11/30/23 0426 (!) 93 98.5 F (36.9 C) Oral 75 18 91 % 11/30/23 0420 (!) 93 98.5 F (36.9 C) Oral 70 14 94 % 11/30/23 0400 (!) 81/52 98.7 F (37.1 C) Oral 74 14 92 % 11/30/23 0330 (!) -- -- 73 17 92 % 11/30/23 0305 (!) 98.9 F (37.2 C) Oral 77 16 92 % 11/30/23 0300 (!) -- -- 75 14 93 % 11/30/23 0249 (!) 8749 98.8 F (37.1 C) Oral 76 14 92 % 11/30/23 0200 (!) -- -- 83 21 93 % 11/30/23 0100 (!) -- -- 91 13 94 % Last [...] Blood Count: Recent Labs 11/29/23 0911/29/23 1608 11/29/23 2016 [...] displayed. Last 3 Blood Glucose: Recent Labs 11/28/2333311/29/2391911/30/23 020 GLUCOSE 88 210* 83 PT/INR: Lab Results [...] Bank Sample Expiration 11/28/2023,2359 Arm Band Number [id number] ABO/Rh A POSITIVE Antibody Screen NEGATIVE Unit Number [id number] Component Leukocyte Reduced Red Cell Unit Divison 00 Dispense Status Blood Bank TRANSFUSED Unit Issue Date/Time [id number] Product Code Blood Bank [id number] Blood Bank Unit Type and Rh A POS Blood Bank ISBT Product Blood Type 6200 Blood Bank Blood Product Expiration Date Transfusion Status OK TO TRANSFUSE Crossmatch Result COMPATIBLE Unit Number [id number] Component Leukocyte Reduced Red Cell Unit Divison 00 Dispense Status Blood Bank TRANSFUSED Unit Issue Date/Time 745443351287 Product Code Blood Bank R6130D98 Blood Bank Unit Type and Rh A POS Blood Bank ISBT Product Blood Type 6200 Blood Bank Blood Product Expiration Date Transfusion Status OK TO TRANSFUSE Crossmatch Result COMPATIBLE Unit Number [id number] Component Leukocyte Reduced Red Cell Unit Divison 00 Dispense Status Blood Bank TRANSFUSED Unit Issue Date/Time 901272265892 Product Code Blood Bank C3524H64 Blood Bank Unit Type and Rh A POS Blood Bank ISBT Product Blood Type 6200 Blood Bank Blood Product Expiration Date Transfusion Status OK TO TRANSFUSE Crossmatch Result COMPATIBLE TYPE AND SCREEN Result Value Ref Range Blood Bank Sample Expiration 12/02/2023,235 Arm Band Number [id number] ABO/Rh A POSITIVE Antibody Screen NEGATIVE Unit Number [id number] Component Leukocyte Reduced Red Cell Unit Divison 00 Dispense Status Blood Bank TRANSFUSED Unit Issue Date/Time 782350957000 Product Code Blood Bank A1028X40 Blood Bank Unit Type and Rh A POS Blood Bank ISBT Product Blood Type 6200 Blood Bank Blood Product Expiration Date Transfusion Status OK TO TRANSFUSE Crossmatch Result COMPATIBLE Unit Number [id number] Component Leukocyte Reduced Red Cell Unit Divison 00 Dispense Status Blood Bank TRANSFUSED Unit Issue Date/Time 202327377938 Product Code Blood Bank S0137I82 Blood Bank Unit Type and Rh A POS Blood Bank ISBT Product Blood Type 6200 Blood Bank Blood Product Expiration Date Transfusion Status OK TO TRANSFUSE Crossmatch Result COMPATIBLE Unit Number [id number] Component Leukocyte Reduced Red Cell Unit Divison 00 Dispense Status Blood Bank ISSUED Unit Issue Date/Time 273467873575 Product Code Blood Bank X2333H60 Blood Bank Unit Type and Rh A POS Blood Bank ISBT Product Blood Type 6200 Blood Bank Blood Product Expiration Date 772121928307 Transfusion Status OK TO TRANSFUSE Crossmatch Result [...] Disposition: Patient is appropriate for transfer to [facility], continued evaluation By GI. DISPOSITION: [] To [...] degrees Ulcer prophylaxis: [x] PPI Agent, [] T0Ibdex, [] Sucralfate, [] Other: Glycemic control: Controlled Spontaneous breathing trial: Not indicated Bowel regimen/urine output: Continue to monitor Indwelling catheter/lines: Bilateral peripheral IV De-escalation: Transfer to [facility] Gino Quarles DO Emergency Medicine Resident 11/30/23 8:15 AM Associated attestation - Arnaud Bryant MD - 11/30/2023 8:08 PM EDT Attending Physician Statement I have discussed the case of Jenny Ewing, including pertinent history and exam findings with the resident/fellow/medical student/BRIM RAISER/PA. I have seen and examined the patient and the jiménez elements of the encounter have been performed by me. I agree with the assessment, plan and orders as documented by the resident/fellow/medical student/BRIM RAISER/PA With changes made to the note as needed. Pt was seen during rounds. Review of Systems: In addition to the pertinent positives and negatives as stated within HPI and the review of systems as documented in their notes, all other systems were reviewed when able to and are reported negative. Please see my attestation for the H&P Arnaud Bryant MD 11/30/2023 8:08 PM [facility]'s Gastroenterology Progress Note Jenyn Ewing is a 73 y.o. female patient. [...] CBC: Recent Labs 11/29/23 0920 11/29/23 1608 05/05/24 201511/30/2320311/30/23 0730 WBC 12.2* -- -- 8.7 -- HGB 6.2* 6.0* 7.8* 6.2* 8.3* MCV 102.5 -- -- 98.0 -- RDW 19.0* -- -- 17.1* -- PLT 245 -- -- 171 -- ANEMIA STUDIES: No results for input(s): TIBC , FERRITIN , VODVJGGK16 , FOLATE , OCCULTBLD in the last 72 hours. Invalid input(s): LABIRON BMP: Recent Labs 11/28/23 0334 11/29/2391911/30/23 020 NA 135* 135* 138 K 3.7 3.3* [...] application done by Dr. Ugarte on 11/25/2023 5/-rebleeding, hypotension, followed by negative CTA 11/28-ongoing melena [...] contact me with any questions or concerns. [facility], [facility] [phone] 11/30/2023 7:54 AM Estimated time of 20 [...] Care Planning Advance Care Planning Inpatient Note [facility] Department Today's Date: 11/29/2023 Unit: MARY [...] Planning Documents (Patient Wishes): Healthcare Power of Environmental Health Specialist/Advance Directive Appointment of Health Care Agent Assessment: [...] need for IR intervention. All calls through [employer] would ring but unable to be connected. [...] from the original note were not included. [facility] Office: [phone] Alvin Ma DO, Erick Burns DO, Varghese [...] Bruce Pozo MD, Aida Montemayor, OSVALDO, Nereyda Patiño, OSVALDO, Vito Calabrese, OSVALDO, Karime Keane, AAYUSH, Halima Mason, OSVALDO, Carmen Orozco, OSVALDO, Kathy Flores, OSVALDO, Farnaz Burgos, OSVALDO, Maricel Burger, ARTURC, ARTUR RodriguezC, Olivia Stiles, RUN BOAT OPERATOR, Ying Singleton, RUN BOAT OPERATOR, Vikas Laird, RUN BOAT OPERATOR, Mira Pina, RUN BOAT OPERATOR, Briana Lim, RUN BOAT OPERATOR, Shirley Johnson, [facility], Jenny Denise, OSVALDO, Jasmine Leong, OSVALDO, Janice Perla, OSVALDO [facility] IN-PATIENT SERVICE [facility] Progress Note 11/29/2023 9:01 AM Name: Jenny Ewing Acct: [id number] Room: 0431/0431-01 Day: 4 Admit Date: 11/25/2023 4:07 AM [...] of 6.6. received 1 unit transfusion at [facility]. 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 They were sent to her pharmacy [...] infarction (HCC), COPD (chronic obstructive pulmonary disease) ([facility]), Depression, History of blood transfusion, and Thyroid [...] input(s): PROT , LABALBU , LABA1C , P0AIBLF , K7PRZKM , FT4 , TSH , AST , ALT , LDH , GGT , ALKPHOS , BILITOT , BILIDIR , AMMONIA , AMYLASE , LIPASE , LACTATE , CHOL , HDL , CHOLHDLRATIO , TRIG , VLDL , BVD36MY , PHENYTOIN , PHENYF , URICACID , POCGLU in the last 72 hours. Invalid input(s): LABGGT , LDLCHOLESTEROL ABG:No results found for: POCPH , PHART , PH , POCPCO2 , LFO6RFC , PCO2 , POCPO2 , PO2ART , PO2 , POCHCO3 , BDG5EHK , HCO3 , NBEA , PBEA , BEART , BE , THGBART , THB , GWP9QEL , LWEH8GIV , A1KNIEEM , O2SAT , FIO2 No results found [...] Patient was having increased bouts of diarrhea. BRIM RAISER notified. Imodium ordered. Images from the original note were not included. [facility] Office: [phone] Alvin Ma DO, Erick Burns DO, Varghese [...] Aida Montemayor, OSVALDO, Nereyda Patiño CNP, Vito Calabrese CNP, Karime Keane, AAYUSH, Halima Mason, RUN BOAT OPERATOR, Carmen Orozco, RUN BOAT OPERATOR, Kathy Flores, RUN BOAT OPERATOR, Farnaz Burgos, RUN BOAT OPERATOR, Maricel Burger PA-C, Alicia Veliz PA-C, Olivia Stiles RUN BOAT OPERATOR, Ying Singleton RUN BOAT OPERATOR, Vikas Laird, RUN BOAT OPERATOR, Mira Pina, RUN BOAT OPERATOR, Briana Lim, RUN BOAT OPERATOR, Shirley Johnson, FOUNTAIN OPERATOR, Jenny Denise, RUN BOAT OPERATOR, Jasmine Leong, RUN BOAT OPERATOR, Janice Perla, RUN BOAT OPERATOR [facility] IN-PATIENT SERVICE [facility] Progress Note 11/28/2023 9:54 AM Name: Jenny Ewing Acct: [id number] Room: [address] [place] [address] Day: 3 Admit Date: 11/25/2023 4:07 AM [...] of 6.6. received 1 unit transfusion at [facility]. 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 They were sent to her pharmacy [...] interval not displayed. Chemistry: Recent Labs 11/26/23 03011/27/2335311/28/23333 NA 140 134* 135* K 3.4* 3.4* 3.7 CL 112* 105 105 CO2 17* 22 21 GLUCOSE 82 83 88 BUN 9 7* 10 CREATININE 0.3* 0.4* 0.3* MG 1.5* 1.9 -- ANIONGAP 11 7* 9 LABGLOM >90 >90 >90 CALCIUM 6.3* 6.3* 6.4* No results for input(s): PROT , LABALBU , LABA1C , C7SQBZP , U0CTSOF , FT4 , TSH , AST , ALT , LDH , GGT , ALKPHOS , BILITOT , BILIDIR , AMMONIA , AMYLASE , LIPASE , LACTATE , CHOL , HDL , CHOLHDLRATIO , TRIG , VLDL , QFF53NZ , PHENYTOIN , PHENYF , URICACID , POCGLU in the last 72 hours. Invalid input(s): LABGGT , LDLCHOLESTEROL ABG:No results found for: POCPH , PHART , PH , POCPCO2 , XIB7IXW , PCO2 , POCPO2 , PO2ART , PO2 , POCHCO3 , EPI2MTC , HCO3 , NBEA , PBEA , BEART , BE , THGBART , THB , CXN5RRX , TEZV5PWB , K4JRDRQI , O2SAT , FIO2 No results found [...] IMPLEMENT AEROSOL/MDI PROTOCOL [x] PATIENT EDUCATION NEEDED [facility]'s Gastroenterology Progress Note Jenny Ewing [...] the chart review patient initially presented to [facility] with a complaint of fall secondary to fatigue and feeling weak, during that time the EMS noticed that patient is having black-colored stools the workup done in the outlying facility ruled out any stroke and patient did not hit her head when she fell as well. Labs in the [facility] are consistent with critically low hemoglobin about 4.8 g where she received 1 unit of transfusion later transferred to the [facility] for further evaluation. Patient is admitted [...] paper charts the patient has been to [facility] 10 days back for GI bleed. They have done EGD and found duodenal ulcer and was clipped. 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 VITALS: BP 128/64 Pulse (!) 117 Temp [...] 0958 11/25/23 1756 11/27/23 0354 11/27/23 1028 11/27/23200811/27/23 2111 11/28/23 0334 WBC 9.5 -- -- -- -- -- -- HGB 5.8* < > 7.2* 7.2* 5.9* 5.7* 7.5* MCV 102.1 -- -- -- -- -- -- RDW 19.9* -- -- -- -- -- -- PLT 186 -- -- -- -- -- -- < > = values in this interval not displayed. ANEMIA STUDIES: No results for input(s): TIBC , FERRITIN , RDARJDOU17 , FOLATE , OCCULTBLD in the last [...] contact me with any questions or concerns. [facility] Gastroenterology Abhishek Bryant MD [phone] 11/28/2023 7:45 AM Estimated time of mins [...] from the original note were not included. [facility] Office: [phone] Alvin Ma DO, Erick Burns DO, Varghese [...] Lugo MD, Bruce Pozo MD, Aida Montemayor, RUN BOAT OPERATOR, Nereyda Patiño, RUN BOAT OPERATOR, Vito Calabrese, RUN BOAT OPERATOR, Karime Keane, [facility], Halima Mason, RUN BOAT OPERATOR, Carmen Orozco, RUN BOAT OPERATOR, Kathy Flores, RUN BOAT OPERATOR, Farnaz Burgos, RUN BOAT OPERATOR, Maricel Burger, PA-C, Alicia Veliz PA-C, Olivia Stiles, RUN BOAT OPERATOR, Ying Singleton, RUN BOAT OPERATOR, Vikas Laird, RUN BOAT OPERATOR, Mira Pina, RUN BOAT OPERATOR, Briana Lim, RUN BOAT OPERATOR, Shirley Johnson, FOUNTAIN OPERATOR, Jenny Denise, RUN BOAT OPERATOR, Jasmine Leong, RUN BOAT OPERATOR, Janice Perla, RUN BOAT OPERATOR [facility] IN-PATIENT SERVICE [facility] Progress Note 11/27/2023 9:39 AM Name: Jenny Ewing Acct: [id number] Room: [address] [place] [address] Day: 2 Admit Date: 11/25/2023 4:07 AM [...] of 6.6. received 1 unit transfusion at [facility]. 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 They were sent to her pharmacy [...] input(s): PROT , LABALBU , LABA1C , Q5BPNXO , M1AXLJX , FT4 , TSH , AST , ALT , LDH , GGT , ALKPHOS , BILITOT , BILIDIR , AMMONIA , AMYLASE , LIPASE , LACTATE , CHOL , HDL , CHOLHDLRATIO , TRIG , VLDL , HXF89XQ , PHENYTOIN , PHENYF , URICACID , POCGLU in the last 72 hours. Invalid input(s): LABGGT , LDLCHOLESTEROL ABG:No results found for: POCPH , PHART , PH , POCPCO2 , QDM7XHV , PCO2 , POCPO2 , PO2ART , PO2 , POCHCO3 , SJQ9FYB , HCO3 , NBEA , PBEA , BEART , BE , THGBART , THB , WHA4IOM , PZWF3ETC , R6NDXPQP , O2SAT , FIO2 No results found [...] nightly Deanna Coyle MD 11/27/2023 9:39 AM [facility] Gastroenterology Progress Note Jenny Ewing is a [...] the chart review patient initially presented to [facility] with a complaint of fall secondary to fatigue and feeling weak, during that time the EMS noticed that patient is having black-colored stools the workup done in the outlying facility ruled out any stroke and patient did not hit her head when she fell as well. Labs in the [facility] are consistent with critically low hemoglobin about 4.8 g where she received 1 unit of transfusion later transferred to the [facility] for further evaluation. Patient is admitted [...] paper charts the patient has been to [facility] 10 days back for GI bleed. They have done EGD and found duodenal ulcer and was clipped. 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 VITALS: BP 116/69 Pulse 77 Temp 97.5 [...] contact me with any questions or concerns. 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 PMH significant for GERD. Pt s/p EGD with duodenal ulcer repair (11/24). 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 Per pt, believes she had a [...] Measures: Height: 160 cm (5' 2.99 ) [place] Body Weight (IBW): 115 lbs (52 kg) [...] from the original note were not included. [facility] Office: [phone] Alvin Ma DO, Erick Burns DO, Varghese [...] Lugo MD, Bruce Pozo MD, Aida Montemayor, RUN BOAT OPERATOR, Nereyda Patiño CNP, Vito Calabrese CNP, Karime Keane, AAYUSH, Halima Mason, RUN BOAT OPERATOR, Carmen Orozco, RUN BOAT OPERATOR, Kathy Flores, RUN BOAT OPERATOR, Farnaz Burgos, RUN BOAT OPERATOR, ARTUR ColonC, Alicia Veliz PA-C, Olivia Stiles, RUN BOAT OPERATOR, Ying Singleton, RUN BOAT OPERATOR, Vikas Laird, RUN BOAT OPERATOR, Mira Pina, RUN BOAT OPERATOR, Briana Lim, RUN BOAT OPERATOR, Shirley Johnson, [facility], Jenny Denise, RUN BOAT OPERATOR, Jasmine Leong, RUN BOAT OPERATOR, Janice Perla, RUN BOAT OPERATOR [facility] IN-PATIENT SERVICE [facility] Progress Note 11/26/2023 11:14 AM Name: Jenny Ewing Acct: [id number] Room: [address] [place] [address] Day: 1 Admit Date: 11/25/2023 4:07 AM [...] of 6.6. received 1 unit transfusion at [facility]. 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 They were sent to her pharmacy [...] infarction (HCC), COPD (chronic obstructive pulmonary disease) ([facility]), Depression, History of blood transfusion, and Thyroid [...] interval not displayed. Chemistry: Recent Labs 11/25/23 05011/26/23 0307 NA 138 140 K 3.6* 3.4* CL 108* 112* CO2 23 17* GLUCOSE 81 82 BUN 13 9 CREATININE 0.4* 0.3* MG -- 1.5* ANIONGAP 7* 11 LABGLOM >90 >90 CALCIUM 6.6* 6.3* No results for input(s): PROT , LABALBU , LABA1C , Z9VMQLU , H4QDYZQ , FT4 , TSH , AST , ALT , LDH , GGT , ALKPHOS , BILITOT , BILIDIR , AMMONIA , AMYLASE , LIPASE , LACTATE , CHOL , HDL , CHOLHDLRATIO , TRIG , VLDL , QIE95MH , PHENYTOIN , PHENYF , URICACID , POCGLU in the last 72 hours. Invalid input(s): LABGGT , LDLCHOLESTEROL ABG:No results found for: POCPH , PHART , PH , POCPCO2 , MUZ8ECH , PCO2 , POCPO2 , PO2ART , PO2 , POCHCO3 , QVA0EJC , HCO3 , NBEA , PBEA , BEART , BE , THGBART , THB , DXD0GRU , NBQD5RCT , A5CRISQH , O2SAT , FIO2 No results found [...] loss Continue IV fluids Continue Midodrine Deanna Coyel MD 11/26/2023 11:14 AM [facility] Gastroenterology Progress Note Jenny Ewing [...] the chart review patient initially presented to [facility] with a complaint of fall secondary to fatigue and feeling weak, during that time the EMS noticed that patient is having black-colored stools the workup done in the outlying facility ruled out any stroke and patient did not hit her head when she fell as well. Labs in the [facility] are consistent with critically low hemoglobin about 4.8 g where she received 1 unit of transfusion later transferred to the [facility] for further evaluation. Patient is admitted [...] paper charts the patient has been to [facility] 10 days back for GI bleed. They have done EGD and found duodenal ulcer and was clipped. 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 VITALS: BP 108/61 Pulse 78 Temp 98.4 [...] contact me with any questions or concerns. [facility] Gastroenterology [facility] Malina Bryant MD [phone] 11/26/2023 8:00 AM Estimated time of mins [...] provider.see new orders. documented in this encounter [facility] 12-02-2023 Hospital Discharge instructions Corinna [...] treatment -- -- -- -- -- 11/25/23 1421 No, patient does not have an advance directive for healthcare treatment -- -- -- -- -- Admitting Physician: No admitting provider for patient encounter. PCP: No primary care provider on file. 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 No Past Surgical History: Past Surgical History: Procedure Laterality Date SECTION x2 CHOLECYSTECTOMY COLONOSCOPY ENDOSCOPY, COLON, DIAGNOSTIC ESOPHAGOGASTRODUODENOSCOPY N/A 11/25/2023 ESOPHAGOGASTRODUODENOSCOPY 12/01/2023 EYE SURGERY FRACTURE SURGERY HYSTERECTOMY (CERVIX STATUS UNKNOWN) IR EMBOLIZATION HEMORRHAGE 11/27/2023 IR EMBOLIZATION HEMORRHAGE 11/27/2023 Jorge Russo MD [facility] SPECIAL PROCEDURES SKIN BIOPSY UPPER GASTROINTESTINAL ENDOSCOPY N/A 11/25/2023 *ADD ON* ESOPHAGOGASTRODUODENOSCOPY control hemorrhage performed by Nicky Ugarte MD at [facility] OR Immunization History: Immunization History Administered [...] Assisted Dressing Assisted Toileting Assisted Feeding Assisted Coverage Specialist Rn Assisted Med Delivery whole Wound Care Documentation [...] NOT a DME order): walker Other Treatments: care home, pt would 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 to 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 with 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 social 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 from [employer] office was closed on attempt 12/02 Patient's personal belongings (please select all that are sent with patient): Frantz RN SIGNATURE: CASE MANAGEMENT/SOCIAL WORK SECTION Inpatient Status Date: Readmission Risk Assessment Score: Readmission Risk Risk of Unplanned Readmission: 11 Discharging to Facility/ Agency Name: [facility] Address: Phone: Fax: Admissions Officer/Tongue And Groove Machine Setter signature: PHYSICIAN SECTION Prognosis: Good Condition at Discharge: Stable Rehab Potential (if transferring to Rehab): Good Recommended Labs or Other Treatments After Discharge: Continue PT OT. Monitor hemoglobin follow-up with PCP and GI. CBC 03/05/2024 Physician Certification: I certify the above information and transfer of Jenny Ewing is necessary for the continuing treatment of the diagnosis listed and that she requires care home facility for less 30 days. Update Admission H&P: No change in H&P PHYSICIAN SIGNATURE: documented in this encounter [facility] 11-28-2023 Note PROCEDURE: IR EMBOLIZATION VASCULAR ANY HEMORRHAGE 11/27/2023 HISTORY: ORDERING SYSTEM PROVIDED HISTORY: Embolization of GDA/GI bleed TECHNOLOGIST PROVIDED HISTORY: Embolization of GDA/GI bleed CONTRAST: Isovue 370-110 mL SEDATION: Fentanyl 50 mcg IV for discomfort. Medications were provided and recorded by Radiology nurses. FLUOROSCOPY DOSE AND TYPE: Fluoroscopy time-15.7 minutes. Radiation Exposure Index: DAP cGy*m2, 52658 DESCRIPTION OF PROCEDURE: Arteries interrogated: Celiac, GDA, [...] for a 0.035 inch wire and 5 Lao introducer sheath. Randal 5 Lao x 65 cm catheter was introduced and the celiac artery catheterize; hand celiac angiography was performed. A 0.035 inch glidewire was manipulated into the distal hepatic arteries, catheter exchanged for a 5 Lao Cobra glide catheter which was manipulated into the origin GDA. Digital angiography was then performed. [place] delivery microcatheter 45 degree tip was then [...] removed. Subsequent hand injection via the 5 Lao catheter the proper hepatic was performed. The guide catheter was removed, and the Randal catheter reinserted. Celiac and SMA digital angiography were then performed. The Randal catheter was removed. Hand digital angiography right iliofemoral vessels was performed at the groin. 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 The patient tolerated procedure well and there [...] or site of bleeding identified. Normal right AUTO TOP MECHANIC entry site pre closure device placement. 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 Interpreted by: Jorge Russo MD Signed by: Jorge Russo MD 11/28/23 Final result [facility] 11-28-2023 Note PROCEDURE: IR EMBOLIZATION VASCULAR ANY HEMORRHAGE 11/27/2023 HISTORY: ORDERING SYSTEM PROVIDED HISTORY: Embolization of GDA/GI bleed TECHNOLOGIST PROVIDED HISTORY: Embolization of GDA/GI bleed CONTRAST: Isovue 370-110 mL SEDATION: Fentanyl 50 mcg IV for discomfort. Medications were provided and recorded by Radiology nurses. FLUOROSCOPY DOSE AND TYPE: Fluoroscopy time-15.7 minutes. Radiation Exposure Index: DAP cGy*m2, 21491 DESCRIPTION OF PROCEDURE: Arteries interrogated: Celiac, GDA, [...] for a 0.035 inch wire and 5 Lao introducer sheath. Randal 5 Lao x 65 cm catheter was introduced and the celiac artery catheterize; hand celiac angiography was performed. A 0.035 inch glidewire was manipulated into the distal hepatic arteries, catheter exchanged for a 5 Lao Cobra glide catheter which was manipulated into the origin GDA. Digital angiography was then performed. [place] delivery microcatheter 45 degree tip was then [...] removed. Subsequent hand injection via the 5 Lao catheter the proper hepatic was performed. The guide catheter was removed, and the Randal catheter reinserted. Celiac and SMA digital angiography were then performed. The Randal catheter was removed. Hand digital angiography right iliofemoral vessels was performed at the groin. 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 The patient tolerated procedure well and there [...] or site of bleeding identified. Normal right AUTO TOP MECHANIC entry site pre closure device placement. [facility] 11-20-2023 Progress note Note Date/Time November 20, 2023 11:40am [facility] EN[facility] [address] [place] [address] Hospitalist Progress Note Signed Patient: Jenny Ewing MR#: [id number] : 1950 Acct:[id number] Age/Sex: 73 / F Adm Date: 4 Loc: Room: [address] [place] [address] Type: ADM IN Attending Dr: Jaspal Whalen [...] signed by Jaspal Whalen MD> 11/20/23 1140 [facility] Work Phone: 1(257) 169-626904-25-2024 Progress note Author Frantz Nieves [facility] November 19, 2023 1:51pm Note Date/Time November 19, 2023 11: 13am [facility] EN[facility] [address] [place] [address] Hospitalist Progress Note Signed Patient: Jenny Ewing MR#: [id number] : 1950 Acct:[id number] Age/Sex: 73 / F Adm Date: 4 Loc: Room: [address] [place] [address] Type: ADM IN Attending Dr: Frantz Nieves [...] to 7.1 ? 2 units PRBC at [place], prior to transfer here, received another 2 [...] signed by DO DENISE Mckeon> 11/19/23 1113 [facility] Work Phone: 1(855) 225-389704-25-2024 Progress note Author Seun [facility] November 19, 2023 9:54am Note Date/Time November 19, 2023 9:5 4am [facility] ENTER [address] [place] [address] Gastroenterology PN Signed Patient: Jenny Ewing MR#: [id number] : 1950 Acct:[id number] Age/Sex: 73 / F Adm Date: 4 Loc: Room: [address] [place] [address] Type: ADM IN Attending Dr: Frantz Nieves [...] signed by Seun Freitas MD> 11/19/23 0954 [facility] Work Phone: 1(477) 897-273704-24-2024 [facility] Progress note Author Frantz Nieves [facility] November 18, 2023 10:04am Note Date/Time November 18, 2023 10: 04am [facility] EN[facility] [address] [place] [address] Hospitalist Progress Note Signed Patient: Jenny Ewing MR#: [id number] : 1950 Acct:[id number] Age/Sex: 73 / F Adm Date: 4 Loc: Room: [address] [place] [address] Type: ADM IN Attending Dr: Frantz Nieves [...] 25 Mg Tablet PO 11/17/24 08:59 QAM [facility] Tramadol HCl 100 mg 11/17/23 22:00 11/17/23 22:25 Tramadol 50 Mg Tablet PO 05/15/24 21:59 Not Given QID [facility] A&P - Hospitalist Assessment/Plan (1) Acute anemia: [...] signed by Frantz Nieves DO> 11/18/23 1004 [facility] Work Phone: 1(927) 792-385904-24-2024 Consult note Author Seun Freitas [facility] November 18, 2023 9:03am Note Date/Time November 17, 2023 4:1 6pm [facility] [address] [place] [address] Gastroenterology Consult Note Signed Patient: Jenny Ewing MR#: [id number] : 1950 Acct:[id number] Age/Sex: 73 / F Adm Date: 4 Loc: Room: [address] [place] [address] Type: ADM IN Attending Dr: Frantz Nieves DO Copies to: MD Seun Wyman MD Shawn J Warner, DO~ HPI Data of Consult Date of Consultation: 11/17/23 Requesting Physician: rFantz Nieves DO Consult Narrative History of present [...] or in HPI [facility] Medical History (Updated 11/18/23 @ 09:03 by [...] use + Cigarette smoking Hb: 4.8 at [place] Patient is hemodynamically stable -Trend CBC and transfuse as needed, ensure two large bore IVs at least. -Protonix 40 mg twice daily -Avoid NSAIDs -Goal Hgb >7.0 -Plan for EGD today. Please keep the patient n.p.o. after midnight Documented By: Seun Freitas MD 11/17/23 1612 Signed By: <Electronically signed by Seun Freitas MD> 11/18/23 0903 [facility] Work Phone: 1(240) 227-924504-23-2024 History and physical note Author Frantz Nieves [facility] November 17, 2023 6:33pm Note Date/Time November 17, 2023 3:5 9pm [facility] EN[facility] [address] [place] [address] Hospitalist H&P Signed Patient: Jenny Ewing MR#: [id number] : 1950 Acct:[id number] Age/Sex: 73 / F Adm Date: 4 Loc: 3T Room: [address] [place] [address] Type: ADM IN Attending Dr: Frantz Nieves DO Copies to: Dale Mckeon DO, RES MD Frantz Wyman DO~ HPI DATE OF EXAMINATION: 11/17/23 CHIEF COMPLAINT: Anemia HISTORY OF PRESENT ILLNESS: 73-year-old female transferred from [facility] for severe anemia. 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 Thismorning the patient had acute episode of weakness in her lower extremities afterwhich she fell and hit the back of her neck and head without LOC. She was brought to the [place] ED by EMS. CT head, brain, and [...] mg Protonix. She was then transferred [facility] for further workup of anemia [...] mood and affect [facility] Medical History (Updated 11/17/23 @ 16:10 by [...] (6) Weakness: Plan 73-year-old female transferred from [facility] for severe anemia, weakness, and GI bleed. [...] GI bleed. Received 2 units PRBC at [place], 500 mL NS, ?Recheck H&H ?Continue Protonix [...] 11/17/23 1833 <Electronically signed by DO DENISE Dale Mckeon> 11/17/23 1623 [facility] Work Phone: 1(776) 531-795701-30-2024 History of Present illness Narrative* Catracho Sheriff [...] - 301 mOsmol/kg Final Comment: Performed at: [facility] [id number] Contract Clerk Automobile: Arleen Wong MD, Phone: [phone] OSMOLALITY, URINE 08/11/2023 552 . mOsmol/kg Final Comment: 24 hr : 300 - 900 Random: 50 - 1400 After 12hr fluid restriction: >850 Performed at: [facility] [id number] Contract Clerk Automobile: Arleen Wong MD, Phone: [phone] Clinis[employer] Result Encounter on 08/04/2023 Component Date [...] 0.55 - 1.02 mg/dL Final [facility] EGFR-AF KENYAN 08/04/2023 >60 >=60 Final [facility] EGFR-NON AF KENYAN 08/04/2023 >60 >=60 Final BUN CREATININE RATIO [...] drug management) Chronic respiratory failure with hypoxia ([facility]) - Handicap Placard Lifetime Chronic problem that [...] to the emergency room. [facility] Author Jaspal Whalen [facility] November 21, 2023 1:44pm Note Date/Time November 21, 2023 1:4 4pm [facility] [address] [place] [address] Discharge Summary Signed Patient: Jenny Ewing MR#: [id number] : 1950 Acct:[id number] Age/Sex: 73 / F Adm Date: 4 Loc: Room: [address] [place] [address]: Jaspal Whalen MD Copies to: [...] female, who was transferred to us from [facility], where she presented with weakness in the [...] 4 weeks then 40 mg po daily; [facility] dispense accordingly polysaccharide iron complex 150 mg [...] Jaspal Whalen MD> 11/21/23 1344 [facility] Work Phone: Evaluation note* Diagnosis Chronic pain [...] Weakness acute Weight loss, unintentional a cute [facility] Work Phone: Evaluation note* Diagnosis [...] Tobacco use disorder PAF (paroxysmal atrial fibrillation) ([facility]) Atrial fibrillation documented in [facility] encounter [facility]* Diagnosis Duodenal ulcer Duodenal ulcer, unspecified as acute or chronic, without hemorrhage, perforation, or obstruction [facility] Diagnosis Venous stasis ulcer of other part of lower leg limited to breakdown of skin without varicose veins, unspecified laterality ([facility]/HCC)- Primary Cellulitis of lower extremity, unspecified laterality Venous stasis dermatitis of both lower extremities documented [facility] Diagnosis Stasis dermatitis of both legs- Primary Non-pressure chronic ulcer of right lower leg, limited to breakdown of skin (CMS/HCC) Postsurgical hypothyroidism (CMS/HCC) Postsurgical hypothyroidism Acute anemia Hypokalemia Hypopotassemia Chronic pain syndrome documented in this encounter [facility]* Diagnosis Cellulitis of lower extremity, unspecified laterality- Primary Abscess of left lower leg Venous ulcer of lower extremity due to chronic peripheral venous hypertension (HCC) (CMS/HCC) Non-pressure ulcer of lower extremity, limited to breakdown of skin, unspecified laterality (CMS/HCC) documented in this encounter [facility] HealthcareEvaluation note* Diagnosis Acquired hypothyroidism (CMS/HCC) [...] agreement signed documented in this encounter [facility]* Diagnosis Closed head injury, sequela Fall at home, subsequent encounter Encounter for examination following treatment at hospital Chronic pain syndrome Generalized anxiety disorder Generalized anxiety disorder Sleep arousal disorder Postsurgical hypothyroidism Postsurgical hypothyroidism ESS (euthyroid sick syndrome) Euthyroid sick syndrome Chronic fatigue Other malaise and fatigue documented in this encounter [facility]* Diagnosis Peripheral edema- Primary Edema Duodenal stricture (HHS-HCC) Other obstruction of duodenum documented in this encounter [facility]* Diagnosis Chronic respiratory failure with hypoxia (HCC)- Primary Sleep arousal disorder Chronic pain syndrome documented in this encounter [facility]* Diagnosis Chronic pain syndrome- Primary Paroxysmal atrial fibrillation (HCC) Atrial fibrillation Fibromyalgia Unspecified myalgia and myositis documented in this encounter [facility] Summary [...] Documents on File Type Date 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 ACP-Advance Directive 12/04/2023 1:41 PM Latest Code Status on File Code Status Date Activated Date Inactivated Comments Full Code 11/25/2023 4:23 AM 12/03/2023 8:11 PM Healthcare Agents on File Name Relationship Healthcare Agent Relationshi p Communication Pearl Julien Child Primary Decision Maker Radha Ventura Friend Secondary Decision Maker Documents on File Type Date Recorded 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 ACP-Advance Directive 12/04/2023 1:41 [...] [facility] DATE CREATED AUTHOR AUTHOR'S ORGANIZ ATION 11/24/2023 [facility] DATE CREATED AUTHOR AUTHOR'S ORGANIZ ATION 12/11/2023 [facility] DATE CREATED AUTHOR AUTHOR'S ORGANIZ ATION 08/04/2024 [facility] DATE CREATED AUTHOR AUTHOR'S ORGANIZ ATION 01/11/2025 [facility] EPIC Reason for Visit (unrecogniz ed section and content) Reason Comments Recurrent Skin Infections Specialty Diagnoses / Procedures Referred By Contac t Referred To Contact Diagnoses GI bleed GI bleed Stv[address] [place] [address] [facility] [employer] [address] [place] [address] Referral ID Status Reason Start Date Expiration Date Visits Re quested Visits Authorized [id number] 1 1 Specialty Diagnoses / Procedures Referred By Contac t Referred To Contact Diagnoses Duodenal ulcer Duodenal ulcer [K26.9] Procedures ND EGD TRANSORAL BIOPSY SINGLE/MULTIPLE ESOPHAGOGASTRODUODENOSCOPY BIOPSY Nicky Ugarte MD [address] [facility] [address] [place] [address] [facility] [employer] [address] [place] [address] Referral ID Status Reason Start Date Expiration Date Visits Re quested Visits Authorized [id number] 1 1 Reason Comments Wound Check Reason Comments wound check Reason Comments Wound Infection Reason Comments Med Refill Reason Comments Anxiety Pain Reason Comments Follow-up Care Teams (unrecognized sec tion and content) Corporate Strategist Relationship Specialty Start Date End Date Catracho Sheriff MD [address] [place] [address] PCP - [employer] 07/27/22 Catracho Sheriff MD [address] [place] [phone] PCP - General Family Medicine 01/05/23 Team [...] Other Provider Active Start: November 17, 2023 Corporate Strategist Relationship Specialty Start Date End Date Catracho Sheriff MD [address] [place] [address] (Fax) PCP - General 01/29/24 Corporate Strategist Relationship Specialty Start Date End Date Catracho Sheriff MD [address] [place] [address] (Fax) PCP - General 01/29/24 Corporate Strategist Relationship Specialty Start Date End Date Catracho Sheriff MD [address] [facility] [place] [address] (Fax) PCP - [employer] 07/27/22 Catracho Sheriff MD [address] [place] [address] PCP - General Family Medicine 01/05/23 Payal Gaona DO [address] [place] [address] Referring Physician Neurology 09/03/23 Aimee Truong RN Registered Nurse Family Medicine 12/23/23 Corporate Strategist Relationship Specialty Start Date End Date Catracho Sheriff MD [address] [facility] [place] [address] (Fax) PCP - [employer] 07/27/22 Catracho Sheriff MD [address] [place] [address] PCP - General Family Medicine 01/05/23 Payal Gaona DO [address] [place] [address] Referring Physician Neurology 09/03/23 Aimee Truong RN Registered Nurse Family Medicine 12/23/23 Corporate Strategist Relationship Specialty Start Date End Date Catracho Sheriff MD [address] [facility] [place] [address] (Fax) PCP - [employer] 07/27/22 Catracho Sheriff MD [address] [place] [address] PCP - General Family Medicine 01/05/23 Payal Gaona DO [address] [place] [address] Referring Physician Neurology 09/03/23 Aimee Truong RN Registered Nurse Family Medicine 12/23/23 Corporate Strategist Relationship Specialty Start Date End Date Catracho Sheriff MD [address] [facility] [place] [address] (Fax) PCP - [employer] 07/27/22 Catracho Sheriff MD [address] [place] [address] PCP - General Family Medicine 01/05/23 Payal Gaona DO [address] [place] [address] Referring Physician Neurology 09/03/23 Aimee Truong, RN Registered Nurse Family Medicine 12/23/23 Corporate Strategist Relationship Specialty Start Date End Date Catracho Sheriff MD [address] [facility] [place] [address] (Fax) PCP - [employer] 07/27/22 Catracho Sheriff MD [address] [place] [address] PCP - General Family Medicine 01/05/23 Payal Gaona DO [address] [place] [address] Referring Physician Neurology 09/03/23 Aimee Truong, RN Registered Nurse Family Medicine 12/23/23 Corporate Strategist Relationship Specialty Start Date End Date Catracho Sheriff MD [address] [facility] [place] [address] (Fax) PCP - [employer] 07/27/22 Catracho Sheriff MD [address] [place] [address] PCP - General Family Medicine 01/05/23 Payal Gaona DO [address] [place] [address] Referring Physician Neurology 09/03/23 Aimee Truong, IGOR Registered Nurse Family Medicine 12/23/23 Corporate Strategist Relationship Specialty Start Date End Date Catracho Sheriff MD [address] [place] [address] (Fax) PCP - [employer] 07/27/22 Catracho Sheriff MD [address] [place] [address] (Fax) PCP - General Family Medicine 01/05/23 Payal Gaona DO [address] [place] [address] Referring Physician Neurology 09/03/23 Aimee Truong RN Registered Nurse Family Medicine 12/23/23 Corporate Strategist Relationship Specialty Start Date End Date Catracho Sheriff MD [address] [place] [address] (Fax) PCP - [employer] 07/27/22 Catracho Sheriff MD [address] [place] [address] (Fax) PCP - General Family Medicine 01/05/23 Payal Gaona DO [address] [place] [address] Referring Physician Neurology 09/03/23 Aimee Truong, IGOR Registered Nurse Family Medicine 12/23/23 Corporate Strategist Relationship Specialty Start Date End Date Catracho Sheriff MD [address] [place] [address] (Fax) PCP - [employer] 07/27/22 Catracho Sheriff MD [address] [place] [address] (Fax) PCP - General Family Medicine 01/05/23 Payal Gaona DO [address] [place] [address] Referring Physician Neurology 09/03/23 Aimee Truong, IGOR Registered Nurse Family Medicine 12/23/23 Corporate Strategist Relationship Specialty Start Date End Date Catracho Sheriff MD [address] [place] [address] (Fax) PCP - [employer] 07/27/22 Catracho Sheriff MD [address] [place] [address] (Fax) PCP - General Family Medicine 01/05/23 Payal Gaona DO [address] [place] [address] Referring Physician Neurology 09/03/23 Aimee Truong, RN Registered Nurse Family Medicine 12/23/23 Corporate Strategist Relationship Specialty Start Date End Date Catracho Sheriff MD [address] [place] [address] (Fax) PCP - [employer] 07/27/22 Catracho Sheriff MD [address] [place] [address] PCP - General Family Medicine 01/05/23 Payal Gaona DO [address] [place] [address] Referring Physician Neurology 09/03/23 Aimee Truong, IGOR Registered Nurse Family Medicine 12/23/23 Corporate Strategist Relationship Specialty Start Date End Date Catracho Sheriff MD [address] [facility] [place] [address] (Fax) PCP - [employer] 07/27/22 Catracho Sheriff MD [address] [place] [address] PCP - General Family Medicine 01/05/23 Payal Gaona DO [address] [place] [address] Referring Physician Neurology 09/03/23 Aimee Truong, RN Registered Nurse Family Medicine 12/23/23 Corporate Strategist Relationship Specialty Start Date End Date Catracho Sheriff MD [address] [place] [address] (Fax) PCP - [employer] 07/27/22 Catracho Sheriff MD [address] [place] [address] (Fax) PCP - General Family Medicine 01/05/23 Payal Gaona DO [address] [place] [address] Referring Physician Neurology 09/03/23 Aimee Truong, RN Registered Nurse Family Medicine 12/23/23 Corporate Strategist Relationship Specialty Start Date End Date Catracho Sheriff MD (Fax) PCP - General 01/29/24 Corporate Strategist Relationship Specialty Start Date End Date Catracho Sheriff MD [address] [place] [address] (Fax) PCP - [employer] 07/27/22 Catracho Sheriff MD [address] [place] [address] (Fax) PCP - General Family Medicine 01/05/23 Payal Gaona DO [address] [place] [address] Referring Physician Neurology 09/03/23 Aimee Truong, RN Registered Nurse Family Medicine 12/23/23 Corporate Strategist Relationship Specialty Start Date End Date Catracho Sheriff MD [address] [place] [address] (Fax) PCP - General 01/29/24 Corporate Strategist Relationship Specialty Start Date End Date Catracho Sheriff MD [address] [place] [address] (Fax) PCP - [employer] 07/27/22 Catracho Sheriff MD [address] [place] [address] (Fax) PCP - General Family Medicine 01/05/23 Payal Gaona DO [address] [place] [address] Referring Physician Neurology 09/03/23 Aimee Truong RN Registered Nurse Family Medicine 12/23/23 Corporate Strategist Relationship Specialty Start Date End Date Catracho Sheriff MD [address] [place] [address] (Fax) PCP - [employer] 07/27/22 Catracho Sheriff MD [address] [place] [address] (Fax) PCP - General Family Medicine 01/05/23 Payal Gaona DO [address] [place] [address] Referring Physician Neurology 09/03/23 Aimee Truong RN Registered Nurse Family Medicine 12/23/23 Corporate Strategist Relationship Specialty Start Date End Date Catracho Sheriff MD [address] [place] [address] (Fax) PCP - [employer] 07/27/22 Catracho Sheriff MD [address] [place] [address] (Fax) PCP - General Family Medicine 01/09/25 Payal Gaona DO [address] [place] [address] Referring Physician Neurology 09/03/23 Aimee Truong, RN [address] [place] [address] Registered Nurse Family Medicine 12/23/23 Corporate Strategist Relationship Specialty Start Date End Date Catracho Sheriff MD [address] [place] [address] (Fax) PCP - [employer] 07/27/22 Catracho Sheriff MD [address] [place] [address] (Fax) PCP - General Family Medicine 01/09/25 Payal Gaona DO [address] [place] [address] Referring Physician Neurology 09/03/23 Aimee Truong RN [address] [place] [address] Registered Nurse Family Medicine 12/23/23 Corporate Strategist Relationship Specialty Start Date End Date Catracho Sheriff MD [address] [place] [address] (Fax) PCP - [employer] 07/27/22 Catracho Sheriff MD [address] [place] [address] (Fax) PCP - General Family Medicine 01/09/25 Payal Gaona DO [address] [place] [address] Referring Physician Neurology 09/03/23 Aimee Truong RN [address] [place] [address] Registered Nurse Family Medicine 12/23/23 Corporate Strategist Relationship Specialty Start Date End Date Catracho Sheriff MD [address] [place] [address] (Fax) PCP - [employer] 07/27/22 Catracho Sheriff MD [address] [facility] [address] [place] [address] PCP - General Family Medicine 01/09/25 Payal Gaona DO [address] [place] [address] Referring Physician Neurology 09/03/23 Aimee Truong, IGOR [address] [place] [address] Registered Nurse Family Medicine 12/23/23 Ordered Prescriptions [...] (2 times per day), First dose on 11/29/23 at 2100, Until Discontinued, Antimicrobial Indications: Other, Other Abx Indication: Sinusitis 0721 (MAR Hold - Provider: Annika Autohold - Reason: Unreviewed Transfer Orders)0900 (Automatically Held - Provider: Annika Autohold)0959 (MAR Unhold - Provider: Riri Salomon RN)1116 (Given - Provider: Lindsay Webb RN - Comment: Unheld by provider still needed to be given.)2037 (Given - Provider: Dinorah Mcfadden RN) 0811 (Given - Provider: Lindsay Webb RN)204 (Given - Provider: Jorge Mcfarland RN) 0855 (Given - Provider: Nicolasa Pacheco RN)2100 (Due) baclofen (LIORESAL) tablet 10 mg 10 mg, Oral, 2 TIMES DAILY WITH MEALS, First dose on Thu11/25/23 at 1700, Until Discontinued 0721 (MAR Hold - Provider: Mar Autohold - Reason: Unreviewed Transfer Orders)0900 (Automatically Held - Provider: Annika Autohold)0959 (MAR Unhold - Provider: Riri Salomon, IGOR)1119 (Given - Provider: Lindsay Webb RN - Comment: Unheld by provider still needed to be given after EGD)2037 (Given - Provider: Dinorah Mcfadden RN) 0811 (Given - Provider: Lindsay Webb RN)204 (Given - Provider: Jorge Mcfarland RN) 0855 [...] provider still needed to be given after EGD)193 (Not Given - Provider: Lindsay Webb RN [...] Riri Salomon RN)2033 (Given - Provider: Dinorah Mcfadden, RN) 2045 (Given - Provider: Jorge Mcfarland, IGOR) 2099 (Due) doxepin (SINEQUAN) capsule 10 mg 10 mg, Oral, NIGHTLY, First dose on Thu11/29/23 at 2100, Until Discontinued 0721 (MAR Hold - Provider: Annika Autohold - Reason: Unreviewed Transfer Orders)0959 (MAR Unhold - Provider: Riri Salomon RN)2037 (Given - Provider: Dinorah Mcfadden RN) 2045 (Given - Provider: Jorge Mcfarland, RN) 2099 (Due) DULoxetine (CYMBALTA) extended release [...] 2 TIMES DAILY RESP, First dose on 11/28/23 at 1015, Until Discontinued, Rinse mouth out [...] RCP) 0754 (Given - Provider: Elaine López RCP)2000 (Due) furosemide (LASIX) injection 20 mg (COMPLETED) [...] Dinorah Mcfadden RN - Comment: both legs) 09 (Due)2326 (Not Given - Provider: Jorge Mcfarland RN - Reason: Patient/family refused) 0900 (Not Given - Provider: Nicolasa Pacheco RN - Reason: Other)2100 (Due) hydrocortisone (CORTEF) tablet 5 mg 5 mg, Oral, DAILY WITH LUNCH, First dose on Thu11/25/23 at 1500, Until Discontinued 0721 (MAR Hold - Provider: Annika Autohold - Reason: Unreviewed Transfer Orders)0959 (MAR Unhold - Provider: Riri Salomon RN)1258 (Given - Provider: Lindsay Webb RN) 1232 (Given - Provider: Lindsay Webb RN) 1612 (Given - Provider: Nicolasa Pacheco, IGOR) hydrocortisone (CORTEF) tablet 7.5 mg 7.5 mg, Oral, DAILY BEFORE BREAKFAST, First dose on Thu11/26/23 at 0700, Until Discontinued 07 (MAR Hold - Provider: [...] López RCP)1521 (Given - Provider: Elaine López RCP)1999 (Due) ipratropium 0.5 mg-albuterol 2.5 mg (DUONEB) [...] Mcfadden RN) 0511 (Given - Provider: Jorge Mcfarland, IGOR) metoprolol tartrate (LOPRESSOR) tablet 12.5 mg 12.5 mg, Oral, 2 TIMES DAILY, First dose on Thu12/03/23 at 0945, Until Discontinued 1059 (Given - Provider: Nicolasa Pacheco RN)2100 (Due) pantoprazole (PROTONIX) tablet 40 mg (CANCELED) 40 mg, Oral, DAILY BEFORE BREAKFAST, First dose on Thu12/02/23 at 0700, Until Discontinued, Do not crush or break. 0628 (Given - Provider: Dinorah Mcfadden RN) pantoprazole (PROTONIX) tablet 40 mg 40 mg, Oral, 2 TIMES DAILY BEFORE MEALS, First dose (after last modification) on Thu12/02/23 at 2000, Until Discontinued, Do not crush or break. 2047 (Given - Provider: Jorge Mcfarland RN) 0511 (Given - Provider: Jorge Mcfarland RN)1613 (Given - Provider: Nicolasa Pacheco, IGOR) sodium chloride flush 0.9 % injection 5-40 [...] RN) 0958 (Canceled Entry - Provider: Nicolasa Pacheco RN)2100 (Due) sodium chloride flush 0.9 % injection [...] (Given - Provider: Nicolasa Pacheco RN)2099 (Due) PRN Medication Order 12/01/2023 12/02/2023 12/03/2023 [...] less into rate field of order. 0721 (SEP Hold - Provider: Annika Autohold - Reason: Unreviewed Transfer Orders)0959 (SEP Unhold - Provider: Riri Salomon RN) 0.9 [...] Administer if oral route cannot be used. 07 ([facility] Hold - Provider: Annika Autohold - Reason: Unreviewed Transfer Orders)0959 ([facility] Unhold - Provider: Riri Salomon RN) acetaminophen (TYLENOL) tablet 650 mg(Linked Group 1) 650 mg, Oral, EVERY 6 HOURS PRN, Starting on Thu11/25/23 at 0421, Until Discontinued, Pain Mild (1-3), Fever, For temp greater than 100.4 F (38 C), Maximum dose of acetaminophen is 4000 mg from all sources in 24 hours. 07 ([facility] Hold - Provider: Annika Autohold - Reason: Unreviewed Transfer Orders)0959 ([facility] Unhold - Provider: Riri Salomon RN) albuterol sulfate HFA (PROVENTIL;VENTOLIN;PROAIR ) 108 (90 Base) MCG/ACT inhaler 2 puff 2 puff, Inhalation, EVERY 6 HOURS PRN, Starting on Thu11/25/23 at 0836, Until Discontinued, Wheezing, Initiate RT Bronchodilator Protocol: Yes - Inpatient Protocol 07 ([facility] Hold - Provider: Annika Autohold - Reason: Unreviewed Transfer Orders)0959 ([facility] Unhold - Provider: Riri Salomon RN) EPINEPHrine (EPINEPHrine HCL) 1 mg/10 mL injection (CANCELED) PRN, Starting on Thu12/01/23 at 0827, Until Thu12/01/23 at 0828, Intra-op 826 (Given - Provider: Manasa Pollock MD) fentaNYL [...] hour of each other unless specifically ordered. 07 (SEP Hold - Provider: Annika Autohold - [...] at 1031, Until Discontinued, Dry Eyes 0721 (SEP Hold - Provider: [facility] Autohold - Reason: Unreviewed Transfer Orders)0959 (SEP Unhold - Provider: Riri Salomon RN) labetalol (NORMODYNE;TRANDATE) injection 10 mg(Linked Group 2) [...] Discontinued, Diarrhea, After each loose stool. 0721 ([facility] Hold - Provider: Annika Autohold - Reason: Unreviewed Transfer Orders)0959 ([facility] Unhold - Provider: Riri Salomon RN) LORazepam (ATIVAN) injection 0.5 mg 0.5 mg, IntraVENous, EVERY 4 HOURS PRN, Starting on 11/29/23 at 1208, Until Discontinued, Anxiety, Immediately prior to intravenous use, lorazepam Injection must be diluted with at least an equal volume of compatible solution (NS or D5W). 0721 ([facility] Hold - Provider: Annika Autohold - Reason: Unreviewed Transfer Orders)0959 ([facility] Unhold - Provider: Riri Salomon RN)2234 (Given - Provider: Dinorah Mcfadden RN) 2046 (Given - Provider: Jorge Mcfarland RN) 0515 (Given - Provider: Jorge Mcfarland RN) [...] for use in Patients with CrCl<30ml/min 0721 ([facility] Hold - Provider: Annika Autohold - Reason: Unreviewed Transfer Orders)0959 ([facility] Unhold - Provider: Riri Salomon RN) melatonin tablet 3 mg 3 mg, Oral, NIGHTLY PRN, Starting on Sara 11/26/23 at 0440, Until Discontinued, Sleep 0721 ([facility] Hold - Provider: Annika Autohold - Reason: Unreviewed Transfer Orders)0959 ([facility] Unhold - Provider: Riri Salomon RN) 2047 (Given - Provider: Jorge Mcfarlnad RN) midodrine (PROAMATINE) tablet 10 mg 10 mg, Oral, 3 TIMES DAILY PRN, Starting on Sara 11/26/23 at 0434, Until Discontinued, sbp<100, Do not give after 1800 or within 4 hrs of bedtime. 0721 (SEP Hold - Provider: [facility] Autohold - Reason: Unreviewed Transfer Orders)0959 ([facility] Unhold - Provider: Riri Salomon RN) naloxone [...] if oral route cannot be used. 0721 ([facility] Hold - Provider: Annika Autohold - Reason: Unreviewed Transfer Orders)0959 ([facility] Unhold - Provider: Riri Salomon RN) ondansetron (ZOFRAN-ODT) disintegrating tablet 4 mg(Linked Group 3) 4 mg, Oral, EVERY 8 HOURS PRN, Starting on Thu11/25/23 at 0421, Until Discontinued, Nausea, Vomiting 0721 ([facility] Hold - Provider: Annika Autohold - Reason: Unreviewed Transfer Orders)0959 ([facility] Unhold - Provider: Riri Salomon RN) potassium bicarb-citric acid (EFFER-K) effervescent tablet 40 mEq(Linked Group 4) 40 mEq, Oral, PRN, Starting on Sara [...] dilute if GI adverse effects occur. 0721 (MAR Hold - Provider: Annika Autohold - Reason: Unreviewed Transfer Orders)0959 (MAR Unhold - Provider: Riri Salomon RN) 0900 (Given - Provider: Nicolasa Pacheco RN) potassium chloride (KLOR-CON M) extended release tablet 40 mEq(Linked Group 4) 40 mEq, Oral, PRN, Starting on Sara [...] half and each half swallowed separately. 0721 (MAR Hold - Provider: Annika Autohold - Reason: Unreviewed Transfer Orders)0959 (MAR Unhold - Provider: Riri Salomon RN) 0900 [...] with CrCl less than 30 mL/min. 0721 ([facility] Hold - Provider: Annika Autohold - Reason: Unreviewed Transfer Orders)0959 ([facility] Unhold - Provider: Riri Salomon RN) 0900 (See Alternative - Provider: Nicolasa Pacheco, IGOR) sodium chloride (OCEAN) 0.65 % nasal spray 1 spray 1 spray, Each Nostril, PRN, Starting on Thu11/25/23 at 1352, Until Discontinued, Congestion 0721 ([facility] Hold - Provider: [facility] Autohold - Reason: Unreviewed Transfer Orders)0959 ([facility] Unhold - Provider: Riri Salomon RN) sodium [...] higher pain score per patient request 0721 ([facility] Hold - Provider: Annika Autohold - Reason: Unreviewed Transfer Orders)0959 ([facility] Unhold - Provider: Riri Salomon RN) 0447 (Given - Provider: Dinorah Mcfadden, IGOR)1334 [...] 6 HOURS PRN, Starting on Thu11/25/23 at 042, Until Discontinued, Nausea, Vomiting
Administer if oral [...] BE BASED ON THE PRIMARY CLINICAL RECORDS. [employer] provides no warranty or guarantee of the accuracy or completeness of information in this document.
== END 2025-03-29 10:14 | disposition home or self-care (01) ==
LOC: LAB 10:13
PROVIDERS: PCP Family Medicine; Visit Provider Family Medicine
DX: E07.81 Sick-euthyroid syndrome (principal); R53.82 Chronic fatigue, unspecified; E89.0 Postprocedural hypothyroidism
CPT/HCPCS: 36415; 84439; 84481

== ENCOUNTER 2025-06-30 08:57 | Outpatient (OUT) | payer MEDICARE, SELFPAY ==
--- OUTSIDE RECORDS SUMMARY | 2025-06-30 09:09 | XMS_ITS | CCD ---
Author Organization [facility] Inform ion Partnership [facility] Care Team Providers Care Lithographic Stripper Name Role Phone JAZIEL, DR RAMIREZ Primary Care Unavailable JAZIEL, DR RAMIREZ Admitting Unavailable JAZIEL, DR RAMIREZ Attending Unavailable JAZIEL, DR RAMIREZ Consulting Unavailable JAZIEL, DR RAMIREZ Admitting Unavailable JAZIEL, DR RAMIREZ Attending Unavailable JAZIEL, DR RAMIREZ Consulting Unavailable JAZIEL, DR RAMIREZ Primary Care Unavailable Catracho Sheriff MD Unavailable [phone] Catracho Sheriff MD Primary Care Provider [phone] MD Catracho Sheriff Primary Care Provider [phone] DO Frantz Nieves Admit Provider MD Jaspal Whalen Attending Provider MD Fortino Imkrystina Other Provider Catracho Sheriff Primary Care Unavailable Jaspal Whalen Attending Unavailable Frantz Nieves Admitting Unavailable Seun Freitas Consulting Unavailable Unavailable Primary Care Provider UnavailCAROL Briscoe Attending Unavailable NICKY UGARTE Consulting Unavailable LIZZY ROCHA Referring Unavailable ANNETTE, ARNAUD Admitting Unavailable JAKE, ZAINULABEDIN Consulting Unavailable DABOUL, ISAM Consulting Unavailable [...] Unavailable Catracho Sheriff MD Primary Care Provider Aimee Truong RN Unavailable Catracho Sheriff MD Primary Care Provider Catracho Sheriff MD Unavailable [phone] Savanah Sears Unavailable [phone] Catracho Sheriff MD Primary Care Provider [phone] Payal Gaona DO Unavailable CATRACHO SHERIFF Attending Unavailable CATRACHO SHERIFF Attending Unavailable CATRACHO SHERIFF Attending Unavailable CATRACHO SHERIFF Attending Unavailable CATRACHO SHERIFF Attending Unavailable HEMECATRACHO GREEN Attending Unavailable HEMECATRACHO GREEN Attending Unavailable CATRACHO SHERIFF Attending Unavailable Allergies Allergy ClassificationReported Allergen(s)Allergy TypeDate of OnsetReaction(s) Facility (1 source)CephalexinDrug Nrmxdfj96-85-6448Jbb [facility] (1 source)IronDrug Jzopxht30-03-3389Lgv [facility] (1 source)moxifloxacinDrug Qjpvyms50-46-7993Znp [facility] (1 source)PenicillinsDrug allergy (disorder)43-24-3189Ryc [facility] (1 source)Sulfonamides (Antibiotic)Drug allergy (disorder)36-52-4420Apw [facility] (1 source)vareniclineDrug Rvfixwk49-49-6233Its [facility] (20 sources)busPIRoneDrug Bfbwfxm73-54-5011NGWO [facility] (20 sources)CephalexinDrug Ozaiviu09-05-9868FLRZ [facility] (20 sources)CodeineDrug Cpvyuqd62-84-9284Uniuy (See Comments)[facility] (20 sources)MirtazapineDrug Lqpkjha12-86-5244GnfmrqxtvgyihwAMXW Healthcare (20 sources)moxifloxacinDrug Tcwbafm47-66-5439FzsreSEIH [facility] (20 sources)PenicillinsDrug Uholmem25-52-9906OaayXJBU [facility] (20 sources)traZODoneDrug Seeoula97-35-3149FYWM [facility] (20 sources)vareniclineDrug Tydglff60-20-1218UHVL [facility] (1 source)MeperidineDrug Brrbhed86-24-6894qfeeuUqznsfhawMercy Health [facility] (20 sources)IbuprofenDrug Vbrkclq52-50-4943Yhzzx (See Comments)[facility] (20 sources)Niacin And RelatedPropensity to adverse reactions to wadl77-10-3046 HivesINOVA [facility]IR [facility]AK[facility] (20 sources)MeperidineDrug Lsakebl66-99-9141HZFZ Healthcare (2 sources)IronDrug Gukjwiy27-74-9512DgjC[facility] (2 sources)MeperidineDrug Hbnlyga47-65-1314TbgSmyth [facility] Community [facility] (2 sources)MirtazapineDrug Pwptgni89-40-3231XjdSmyth County Community Hospital (2 sources)PenicillinsPropensity to adverse reactions to jhwt27-85-3598ZystNaxSpotsylvania Regional Medical Center Medications Current Medications MedicationDrug Class(es)DatesSig (Normalized)Sig (Original)Acetaminophen (1 source)Start: 75-00-9057otmznbfhgsmoi (TYLENOL) tablet 650 [id number] 200 actuat albuterol 0.09 mg/actuat metered dose inhaler (20 sources)beta2-Adrenergic AgonistStart: 06-21-2024 End: 00-44-9404ruzz 2 puff(s) by inhalation every six hoursalbuterol HFA (Ventolin HFA) 90 mcg/act inhaler Indications: Mucopurulent chronic bronchitis (HCC) Inhale 2 puffs every 6 (six) hours if needed for shortness of breath 18 g 11 06/21/2024 ActiveStart: 24-06-2745djui 2 puff(s) by inhalation every six hours as needed for wheezingalbuterol sulfate HFA (PROVENTIL;VENTOLIN;PROAIR) 108 (90 Base) MCG/ACT inhaler Inhale 2 puffs intothe lungs every 6 hours as needed for Wheezing 18 g 3 12/02/2023 ActiveStart: 43-19-1037xfuo 2 puff(s) by inhalation every six hours as needed2 puff, Inhalation, EVERY 6 HOURS PRN, Starting on Thu11/25/23 at 0836, Until Discontinued, WheezingInitiate RT Bronchodilator Protocol: Yes - Inpatient Protocoltake 2 puff(s) by inhalation every six hours as needed, then take 2 puff(s) by inhalation four times daily as neededalbuterol HFA (Ventolin HFA) 90 mcg/act inhaler Inhale 2 puffs every 6 (six) hours if needed. 2 puffs as needed Inhalation four times daily as needed for 90 days Activealbuterol 0.833 mg/ml / ipratropium bromide 0.167 mg/ml inhalation solution (20 sources)Anticholinergic, beta2-Adrenergic AgonistStart: 05-24-2025 End: 49-45-7071tmyhgilmzgo-albuterol (Duo-Neb) 0.5-2.5 mg/3 mL nebulizer solution Indications: Mucopurulent chronic bronchitis (HCC) Take 3 mL by nebulization in the morning and 3 mL at noon and 3 mL in the eveningand 3 mL before bedtime. 1080 mL 1 05/24/2025 11/20/2025 ActiveStart: 12-16-2023 End: 39-45-0465jhtpaerkkzh-albuterol (Duo-Neb) 0.5-2.5 mg/3 mL nebulizer solution Indications: Mucopurulent chronic bronchitis (HCC) Take 3 mL by nebulization in the morning and 3 mL at noon and 3 mL in the eveningand 3 mL before bedtime. 1080 mL 1 12/16/2023 ActiveStart: 12-01-2023 End: 47-98-8216zkrtfzbqyas 0.5 mg-albuterol 2.5 mg (DUONEB) nebulizer solution 1 DoseStart: 11-28-2023 End: 77-95-4689ijxblufoayw 0.5 mg-albuterol 2.5 mg (DUONEB) nebulizer solution 1 DoseStart: 75-07-8329kbxiogidqmq 0.5 mg-albuterol 2.5 mg (DUONEB) 0.5-2.5 (3) MG/3ML SOLN nebulizer solution Three timesdaily 11/17/2023 ActiveStart: 18-50-1190ichr 1 mL by inhalation three times dailyIpratropium-Albuterol Active 3 ML INHALATION Three times daily November 17, 2023 12:00amipratropium-albuterol (Duo-Neb) 0.5-2.5 mg/3 mL nebulizer solution Take 3 mL by nebulization in the morning and 3 mL at noon and 3 mL in the evening and 3 mL before bedtime. 0 Activeamoxicillin 875 mg / clavulanate 125 mg oral tablet (2 sources)Penicillin-class AntibacterialStart: 12-02-2023 End: 16-86-6244jems 1 tablet by mouth every twelve hoursamoxicillin-clavulanate (AUGMENTIN) 875-125 MG per tablet Take 1 tablet by mouth every 12 hours for7 days 14 tablet 0 12/02/2023 12/09/2023 ActiveStart: 18-61-3884foowkxliaph- clavulanate (AUGMENTIN) 875-125 MG per tablet 1 tabletascorbic acid 1000 mg oral tablet (20 sources)Vitamin Ctake 1 tablet by mouth in the morningAscorbic Acid (vitamin C) 1000 MG tablet Take 1,000 mg by mouth in the morning and 1,000 mg before b edtime. Activetake 2 tablets by mouth once dailyvitamin C (ASCORBIC ACID) 500 MG tablet Take 2 tablets by mouth daily Activeazithromycin 250 mg oral tablet (3 sources)Macrolide AntimicrobialStart: 01-11-2025 End: 85-95-8865zcypgdwextak (Zithromax) 250 MG tablet Indications: Mucopurulent chronic bronchitis (HCC) Take 2 tablets day one then 1 tablet daily 6 tablet 01/11/2025 03/08/2025 Discontinued (Therapy completed)b complex vitamins capsule (20 sources)take 1 capsule by mouth once dailyb complex vitamins capsule Take 1 capsule by mouth daily Activetake 1 capsule by mouth once dailyb complex vitamins capsule Take 1 capsule by mouth Daily Activebaclofen 20 mg oral tablet (20 sources)gamma-Aminobutyric Acid-ergic AgonistStart: 08-13-1389vbtilaux (Lioresal) 20 MG tablet Indications: Chronic pain syndrome Take one half tablet in the morning, One half tablet at lunch, and 2 tablets in the evening 270 tablet 1 12/26/2024 ActiveStart: 01-25-2024 End: 88-53-5246tlovmptq (Lioresal) 20 MG tablet Indications: Chronic pain syndrome Take one half tablet in the morning, One half tablet at lunch, and 2 tablets in the evening 270 tablet 1 07/13/2024 ActiveStart: 79-48-1308nrrd 10 mg by mouth twice daily at mkpvayiu00 mg, Oral, 2 TIMES DAILY WITH MEALS, First dose on Thu11/25/23 at 1700, Until DiscontinuedStart: 54-74-4115oqgd 10 mg by mouth at breakfastBaclofen Active 10 MG PO With breakfast and lunch November 17, 2023 12:00amStart: 51-43-3710vhjginik (Lioresal) 20 MG tablet Indications: Chronic pain syndrome Take one half tablet in the morning, One half tablet at lunch, and 2 tablets in the evening 270 tablet 0 07/30/2023 Activetake 0.5 tablet by mouth twice daily at mealtime, then take 0.5 tablet by mouth at lunch baclofen (LIORESAL) 20 MG tablet Take 0.5 tablets by mouth 2 times daily (with meals) 1/2 tab morning and lunch Active End: 12-68-1454mzjj 2 tablets by mouth once dailybaclofen (LIORESAL) 20 MG tablet Take 2 tablets by mouth nightly 0 12/02/2023 Discontinued (Stop Taking at Discharge)busPIRone hydrochloride 15 mg oral tablet (20 sources)Start: 01-09-2025 End: 28-03-1430vknNSFers (Buspar) 15 MG tablet Indications: Generalized anxiety disorder Take 0.5 tablet at breakfast and 0.5 tablet lunch, and 2 tablets at bedtime. 270 tablet 1 04/03/2025 ActiveStart: 36-09-7642rqox 1 tablet by mouth once daily30 mg, Oral, Nightly, First dose on Thu11/25/23 at 2100, Until Discontinued This 15 mg tablet can besplit into thirds (5 mg) or halves (7.5 mg) based on the ordered dose.Start: 10-21-2023 End: 35-02-0214frtRPNjwy (Buspar) 15 MG tablet Indications: Generalized anxiety disorder Take 1 tablet at breakfast and 1 tablet lunch, and 2 tablets at bedtime. 360 tablet 1 04/14/2024 01/09/2025 Discontinued (Reorder)Start: 69-47-5873pseb 1 tablet by mouth twice daily at mg, Oral, 2 TIMES DAILY WITH MEALS, First dose on Thu11/25/23 at 1700, Until Discontinued This 15mg tablet can be split into thirds (5 mg) or halves (7.5 mg) based on the ordered dose.take 2 tablets by mouth at bedtimebusPIRone (BUSPAR) 15 MG tablet Take 30 mg by mouth at bedtime Activecalcium chloride 0.0014 meq/ml / potassium chloride 0.004 meq/ml / sodium chloride 0.103 meq/ml / sodium lactate 0.028 meq/ml injectable solution (1 source)Start: 89-96-1224mthyqixl ringers IV soln infusioncalcium citrate 1040 mg oral tablet (20 sources)calcium citrate 1040 MG tablet Take 250 mg by mouth in the morning and 250 mg before bedtime. Activecholecalciferol 0.025 mg oral capsule (20 sources)Vitamin Dtake 1 capsule by mouth in the morningcholecalciferol (Vitamin D-3) 25 MCG (1000 UT) capsule Take 3,000 Units by mouth in the morning. Summer Dose. Activetake 1 tablet by mouth in the morningcholecalciferol (Vitamin D-3) 125 MCG (5000 UT) tablet Take 5,000 Units by mouth in the morning. Winter dose. Activetake 1 tablet by mouth once dailyCholecalciferol (VITAMIN D3) 125 MCG (5000 UT) TABS Take 1 tablet by mouth daily Activechondroitin sulfate a sodium 600 mg / glucosamine sulfate 750 mg oral tablet (20 sources)take 2 tablets by mouth once dailyglucosamine-chondroitin 750-600 MG tablet tablet Take 2 tablets by mouth 1 (one) time each day Active DKZ-KXG-Kjmlbah E (OMEGA-3 COMPLEX PO) (4 sources)take 1 capsule by mouth once jiwyvMQW-TJT-Lhyhsua E (OMEGA-3 COMPLEX PO) Take 1 capsule by mouth daily Activetake 1 capsule by mouth once daily FCL-MVA-Yvqdoia E (OMEGA-3 COMPLEX PO) Take 1 capsule by mouth daily 0 Suspended doxepin hydrochloride 10 mg oral capsule (1 source)Tricyclic AntidepressantStart: 45-39-0155ymoeivk (SINEQUAN) capsule 10 mgdoxycycline hyclate 100 mg oral capsule (15 sources)Tetracycline-class DrugStart: 04-05-2025 End: 53-93-4146qzdzcfdlpos (Vibramycin) 100 MG capsule Indications: Stasis dermatitis of both legs Take 1 capsule (100 mg) by mouth in the morning and 1 capsule (100 mg) before bedtime. Do all this for 14 days. Take with at least 8 ounces (large glass) of water, do not lie down for 30 minutes after. 28 capsule 04/05/2025 04/15/2025 Discontinued (Therapy completed)Start: 04-26-2024 End: 02-61-1293rzvwhyxbius (Vibramycin) 100 MG capsule Indications: Cellulitis of lower extremity, unspecified laterality Take 1 capsule (100 mg) by mouth in the morning and 1 capsule (100 mg) before bedtime. Do all this for 14 days. Take with at least 8 ounces (large glass) of water. 28 capsule 04/26/2024 05/10/2024 ExpiredStart: 08-21-2023 End: 20-24-8936mtoysiwgxhs (Vibra-Tabs) 100 MG tablet Indications: Cellulitis of lower extremity, unspecified laterality Take 1 tablet (100 mg) by mouth in the morning and 1 tablet (100 mg) before bedtime. Do all this for 14 days. Take with a full glass of water and do not lie down for at least 30 minutes after..28 tablet 0 08/21/2023 09/04/2023 ActiveDULoxetine 20 mg delayed release oral capsule (20 sources)Serotonin and Norepinephrine Reuptake InhibitorStart: 03-30-2024 End: 32-13-8985gslv 2 capsules by mouth once dailyDULoxetine (Cymbalta) [address] capsule Indications: Chronic pain syndrome Take 2 capsules (40 mg) by mouth Daily 180 capsule 1 04/03/2025 09/30/2025 ActiveStart: 24-56-1024otmc 1 capsule by mouth once daily40 mg, Oral, DAILY, First dose on Thu11/25/23 at 1500, Until Discontinued Do not crush or break. Mayadd contents of capsule to apple juice or apple sauce, but not chocolate.Start: 30-41-7823dpzs 40 mg by mouth once daily in the morningDuloxetine Active 40 MG PO Every morning November 17, 2023 12:00am Start: 08-21-2023 End: 12-04-3677pknu 2 capsules by mouth in the morningDULoxetine (Cymbalta) [address] capsule Indications: Chronic pain syndrome Take 2 capsules (40 mg) by mouth in the morning. 180 capsule 0 08/21/2023 11/19/2023 Activefamotidine 20 mg oral tablet (20 sources)Histamine-2 Receptor AntagonistStart: 04-14-2024 End: 98-56-9556xuex 1 tablet by mouth in the morningfamotidine (Pepcid) 20 MG tablet Indications: Duodenal stricture (HHS-HCC) Take 1 tablet (20 mg) bymouth in the morning and 1 tablet (20 mg) before bedtime. 180 tablet 1 01/19/2025 07/18/2025 Dzbbsf620 actuat fluticasone propionate 0.11 mg/actuat metered dose inhaler (20 sources)CorticosteroidStart: 76-65-3287hqegteydxjy (FLOVENT HFA) 110 MCG/ACT inhaler 1 puffStart: 58-17-0995xvka 1 puff(s) by inhalation in the morning Flovent HFA 220 MCG/ACT inhaler Inhale 1 puff in the morning and 1 puff before bedtime. 12/02/2022 Activegabapentin 100 mg oral capsule (20 sources)Anti-epileptic AgentStart: 05-28-2023 End: 61-77-5930htnr 1 capsule by mouth in the morning, then take 1 capsule by mouth in the evening, then take 1 capsule by mouth at bedtimegabapentin (Neurontin) 100 MG capsule Indications: Chronic pain syndrome Take 1 capsule (100 mg) bymouth in the morning and 1 capsule (100 mg) in the evening and 1 capsule (100 mg) before bedtime. 270 capsule 1 01/09/2025 07/08/2025 Active1 ml HYDROmorphone hydrochloride 1 mg/ml cartridge (2 sources)Opioid AgonistStart: 66-80-8721PHPNZufqwpgiu (DILAUDID) injection 0.5 mgStart: 79-31-8771IUIMBngfthuey (DILAUDID) injection 0.25 mghypromellose 5 mg/ml ophthalmic solution (1 source)Start: 38-58-7863oauxhzuebaaj (ISOPTO TEARS) 0.5 % ophthalmic solution 2 dropiron polysaccharides (NIFEREX) 150 MG capsule (1 source)Start: 59-92-9484oohi polysaccharides (NIFEREX) 150 MG capsule Take 1 capsule by mouth every 48 hours 11/21/2023 Activelabetalol (NORMODYNE;TRANDATE) injection 10 mg (1 source)Start: 84-30-1677xqiddksts (NORMODYNE;TRANDATE) injection 10 mg levothyroxine sodium 0.137 mg oral tablet (20 sources)l-ThyroxineStart: 30-70-9799sxfemrpckafxq (Synthroid) 137 MCG tablet Indications: Postsurgical hypothyroidism Take 1 tablet daily 90 tablet 04/03/2025 ActiveStart: 10-04-2024 End: 54-82-5883jdwvmvbsftbzl (Synthroid) 175 MCG tablet Indications: Postsurgical hypothyroidism Take 1 tablet daily 90 tablet 1 10/04/2024 04/03/2025 Discontinued (Reorder)Start: 33-59-5942wyujdpfhapcuf (Synthroid) 175 MCG tablet Indications: Postsurgical hypothyroidism (CMS/HCC) Take 1 tablet daily 90 tablet 1 07/13/2024 ActiveStart: 22-67-8260qncdkecqxdryv (SYNTHROID) tablet 175 mcgStart: 11-25-2023 End: 74-15-6964lslduzaxdjiqa (SYNTHROID) tablet 150 mcgStart: 08-21-2023 End: 76-04-0096tqyqcyzgyznwj (Synthroid) 150 MCG tablet Indications: Acquired hypothyroidism (CMS/HCC) Take 1 tablet daily 90 tablet 1 06/15/2024 07/13/2024 Discontinued (Reorder)levothyroxine (SYNTHROID) 150 MCG tablet Take 175 mcg by mouth in the morning and at bedtime Activeloperamide hydrochloride 2 mg oral capsule (1 source)Opioid AgonistStart: 12-93-9715avqacwedwc (IMODIUM) capsule 2 mg1 ml LORazepam 2 mg/ml injection (1 source)BenzodiazepineStart: 35-45-3162VPMycsigq (ATIVAN) injection 0.5 mg100 ml magnesium sulfate 10 mg/ml injection (1 source)Start: 15-72-6251xkokxcsey sulfate 1000 mg in dextrose 5% 100 mL IVPB melatonin 3 mg oral tablet (2 sources)Start: 81-77-9898ldvflvvov tablet 3 mgtake 2 tablets by mouth at bedtimemelatonin 3 MG tablet Take 3 mg by mouth at bedtime. 2 tablet Orally at bedtime 0 Activemetoprolol tartrate 25 mg oral tablet (1 source)beta-Adrenergic BlockerStart: 19-66-7931bgudgyvrew tartrate (LOPRESSOR) tablet 12.5 mgmirtazapine 45 mg oral tablet (20 sources)Start: 12-20-2024 End: 18-08-9994prqa 1 tablet by mouth at bedtimemirtazapine (Remeron) 45 MG tablet Indications: Sleep arousal disorder Take 1 tablet (45 mg) by mouth at bedtime 90 tablet 1 04/03/2025 09/30/2025 ActiveStart: 02-15-2024 End: 56-97-9881tyor 1 tablet by mouth at bedtimemirtazapine (Remeron) 30 MG tablet Indications: Sleep arousal disorder Take 1 tablet (30 mg) by mouth at bedtime 90 tablet 1 04/14/2024 10/11/2024 Activenaloxone 0.4 mg in 10 mL sodium chloride syringe (1 source)Start: 57-45-4047nnozomdl 0.4 mg in 10 mL sodium chloride syringe [place]-3 Fatty Acids (Fish Oil) 1000 MG capsule delayed-release (20 sources)[place]-3 Fatty Acids (Fish Oil) 1000 MG capsule delayed-release Take by mouth ActiveOmega-3 Fatty Acids (FISH OIL) 1000 MG CPDR (2 sources)[place]-3 Fatty Acids (FISH OIL) 1000 MG CPDR Take by mouth Active omeprazole 20 mg delayed release oral capsule (2 sources)Proton Pump InhibitorStart: 04-12-2024 End: 23-01-6205dhdi 1 capsule by mouth once dailyomeprazole (PriLOSEC) [address] capsule Take 1 capsule by mouth Daily 04/12/2024 04/14/2024 Discontinued (Therapy completed)ondansetron (ZOFRAN-ODT) disintegrating tablet 4 mg (1 source)Start: 60-90-2738mflcimcduqw (ZOFRAN-ODT) disintegrating tablet 4 mg Oxygen (20 sources)oxygen (O2) gas Inhale continuously via nasal canula; to maintain pulse ox between 90-94%. Activepantoprazole 40 mg delayed release oral tablet (20 sources)Proton Pump InhibitorStart: 11-21-2023 End: 03-60-6210estpinkeaspr (ProtoNix) 40 MG EC tablet Take 40 mg by mouth 11/21/2023 Activepetrolatum 610 mg/ml topical cream (1 source)Start: 37-47-9083Apsjqexdzo (EUCERIN) cream CREApolysaccharide iron complex 150 mg oral capsule (20 sources)Start: 98-51-1587zzgy 1 capsule by mouth every other dayiron polysaccharides (Nu-Iron,Niferex) 150 MG capsule Take 150 mg by mouth every other day 11/21/2023 ActiveStart: 43-28-7264Lcoxounrsvfsnb Iron Complex Active 150 MG PO Every 48 hours 60 November 21, 2023 12:00amPotassium Chloride (1 source)Start: 61-86-5407dhttihynw chloride (KLOR-CON M) extended release tablet 40 mEq5 ml sodium chloride 9 mg/ml injection (14 sources)Start: .9 % sodium chloride infusionStart: 01-29-2024 sodium chloride flush 0.9 % injection 5-40 mLStart: 12-01-2023 End: 98-13-4179qakjtp chloride (PF) 0.9 % injectionStart: 29-71-8744mjxpkx chloride flush 0.9 % injection 5-40 mLStart: 11-29-2023 End: 68-89-7730gmdzvy chloride 0.9 % bolus 500 mLStart: 50-91-2378dohpfk chloride (OCEAN) 0.65 % nasal spray 1 sprayStart: 11-25-2023 End: .9 % sodium chloride infusionStart: 54-72-5063hvje 1 dose intravenously twice daily5-40 mL, IntraVENous, EVERY 12 HOURS SCHEDULED (2 times per day), First dose on Thu11/25/23 at 0900,Until Discontinued For Line Patency: Peripheral IV = 5 mL; Midline or Central Line = 10 mL/lumen. If following IV push medication, administer flush at same rate as the IV push. Flus h volume is determined by type of infusion therapy being given. For non-viscous solutions use: Peripheral IV = 5 mL Midline or Central Line = 10 mL/lumen For viscous solutions (i.e. blood components, parenteral nutrition, contrast media, or after obtaining blood sample) use: Peripheral IV = 10 mL Midline or Central Line = 20 mL/lumenStart: 75-26-8241PuuiwDDEyyu, at 5-250 mL/hr, PRN, if patient receiving piggyback infusions and maintenance fluids are not ordered OR KVO fluids to protect IV site / prevent frequent line interruptions/ long duration, Starting on Thu11/25/23 at 0421 For piggyback infusion, administer at same rate as piggyback for a total of 25 mL. Enter 25 mL into dose field and piggyback rate into rate field of order. Ifpiggyback is infusing at a rate less than 100 mL/hr, enter 25 mL into dose field and 100 mL/hr intorate field of order. For KVO fluids, enter rate of 20 mL/hr or less into rate field of order.Start: 11-25-2023 End: 73-26-9706dwom 5-40 mL intravenously once as needed5-40 mL, IntraVENous, PRN, Starting on Thu11/25/23 at 0421, Until Thu11/29/23 at 1937, Line Care, After every IV line use For Line Patency: Peripheral IV = 5 mL; Midline or Central Line = 10 mL/lumen. If following IV push medication, administer flush at same rate as the IV push. Flush volume is determined by type of infusion therapy being given. For non-viscoussolutions use: Peripheral IV = 5 mL Midline or Central Line = 10 mL/lumen&nbsp ; For viscous solutions (i.e. blood components, parenteral nutrition, contrast media, or after obtaining blood sample) use: Peripheral IV = 10 mL Midline or Central Line = 20 mL/lumenspironolactone 50 mg oral tablet (20 sources)Aldosterone AntagonistStart: 07-13-2024 End: 10-10-6598aeww 1 tablet by mouth once dailyspironolactone (Aldactone) 50 MG tablet Indications: Peripheral edema Take 1 tablet (50 mg) by mouth Daily Dose increase 90 tablet 1 01/19/2025 07/18/2025 ActiveStart: 03-07-2024 End: 25-08-0017ifct 0.5 tablet by mouth once dailyspironolactone (Aldactone) 100 MG tablet Indications: Peripheral edema Take 0.5 tablets (50 mg) by mouth Daily Dose increase 03/07/2024 07/13/2024 Discontinued (Reorder)Start: 08-21-2023 End: 91-60-8837qwvh 25 mg by mouth once daily in the morningSpironolactone Active 25 MG PO Every morning November 17, 2023 12:00amtake 2 tablets by mouth once dailyspironolactone (ALDACTONE) 25 MG tablet Take 2 tablets by mouth daily Activetake 4 tablets by mouth once dailyspironolactone (ALDACTONE) 25 MG tablet Take 4 tablets by mouth daily ActiveSTRONTIUM CITRATE (20 sources)take 2 tablets by mouth once dailySTRONTIUM CITRATE Take 2 tablets by mouth Daily Activetake 1 tablet by mouth in the morningSTRONTIUM CITRATE Take 1 tablet by mouth in the morning. Activetake 1 tablet by mouth in the morning STRONTIUM CITRATE Take 1 tablet by mouth in the morning. 0 ActivetraMADol hydrochloride 50 mg oral tablet (20 sources)Opioid AgonistStart: 01-19-2024 End: 50-03-6852yscDJNkz (Ultram) 50 MG tablet Indications: Chronic pain syndrome Take 2 tablets (100 mg) by mouth in the morning and 2 tablets (100 mg) at noon and 2 tablets (100 mg) in the evening and 2 tablets (100 mg) before bedtime. 240 tablet 2 04/03/2025 07/02/2025 ActiveStart: 07-93-0797qsas 100 mg by mouth every six hours as needed for kacu913 mg, Oral, EVERY 6 HOURS PRN, Starting on Thu11/25/23 at 2127, Until Discontinued, Pain Moderate (4-6), Pain Mild (1-3), Allowed for higher pain score per patient requestStart: 13-10-4928gwfa 100 mg by mouth four times dailyTramadol Active 100 MG PO Four times daily November 17, 2023 12:00amStart: 07-23-2023 End: 25-56-9212dulYVKca (Ultram) 50 MG tablet Indications: Chronic pain syndrome Take 2 tablets (100 mg) by mouth in the morning and 2 tablets (100 mg) at noon and 2 tablets (100 mg) in the evening and 2 tablets (100 mg) before bedtime. 240 tablet 2 07/23/2023 10/21/2023 Activetriamcinolone acetonide 0.001 mg/mg topical ointment (14 sources)CorticosteroidStart: 04-03-2025 End: 74-41-3780updheyyczvmve (Kenalog) 0.1 % ointment Indications: Stasis dermatitis of both legs Apply topically in the morning and before bedtime. 80 g 2 04/03/2025 07/02/2025 Activeturmeric extract 500 mg oral capsule (20 sources)take 500 mg by mouth once dailyTurmeric (QC TUMERIC COMPLEX PO) Take 500 mg by mouth Daily Activezinc gluconate 50 mg oral tablet (20 sources)take 0.5 tablet by mouth once dailyzinc gluconate 50 MG tablet Take 50 mg by mouth See administration instructions. 1/2 tablet= 25mg Orally Once a day for 30 day(s) Activezinc gluconate 50 MG tablet Take 1 tablet by mouth See Admin Instructions Active Completed/Discontinued Medications MedicationDrug Class(es)DatesSig (Normalized)Sig (Original)20 ml albumin human, retirement 250 mg/ml injection (1 source)Human Serum AlbuminStart: 11-29-2023 End: 53-17-9817flbzhem human 25% IV solution 25 g100 ml calcium gluconate 20 mg/ml injection (2 sources)Start: 11-30-2023 End: 23-88-0276xgfsbdu gluconate 2,000 mg in sodium chloride 100 mLStart: 11-27-2023 End: 61-58-0605mowqoko gluconate 1,000 mg in sodium chloride 50 mLcefuroxime 500 mg oral tablet (2 sources)Cephalosporin AntibacterialStart: 07-13-2024 End: 99-52-8751crsl 1 tablet by mouth in the morningcefuroxime (Ceftin) 500 MG tablet Indications: Left maxillary sinusitis Take 1 tablet (500 mg) by mouth in the morning and 1 tablet (500 mg) before bedtime. Do all this for 10 days. 20 tablet 07/13/2024 07/23/2024 Expired2 ml fentaNYL 0.05 mg/ml injection (2 sources)Opioid AgonistStart: 11-27-2023 End: 11-28-4560xezeoPWO (SUBLIMAZE) injectionStart: 40-18-5682jwkgcSAV (SUBLIMAZE) injection 25 mcg4 ml furosemide 10 mg/ml injection (2 sources)Loop DiureticStart: 12-01-2023 End: 18-93-1438udqogvymnv (LASIX) injection 20 mgStart: 11-25-2023 End: 89-58-3441kfaitzxwmg (LASIX) injection 20 mghydrocortisone 5 mg oral tablet (10 sources)CorticosteroidStart: 66-79-5646jgnu 7.5 mg by mouth once daily before breakfast7.5 mg, Oral, DAILY BEFORE BREAKFAST, First dose on Thu11/26/23 at 0700, Until DiscontinuedStart: 11-25-2023 End: 09-48-2747wajg 5 mg by mouth once daily at lunch5 mg, Oral, DAILY WITH LUNCH, First dose on Thu11/25/23 at 1500, Until Discontinued End: 01-27-4811meri 1.5 tablets by mouth once daily before breakfast, then take 1.5 tablets by mouth in the morninghydrocortisone (CORTEF) 5 MG tablet Take 1.5 tablets by mouth every morning (before breakfast) 1.5 in AM 06/27/2024 Discontinued (Therapy completed)iopamidol (ISOVUE-370) 76 % injection 100 mL (3 sources)Start: 11-29-2023 End: 71-62-0650mkusnvasb (ISOVUE-370) 76 % injection 100 mLStart: 11-27-2023 End: 34-20-8220tlmqzddys (ISOVUE-370) 76 % injection 100 mLStart: 11-25-2023 End: 80-37-4650onsnxvrdi (ISOVUE-370) 76 % injection 100 mL10 ml lidocaine hydrochloride 10 mg/ml injection (1 source)Antiarrhythmic, Amide Local AnestheticStart: 01-29-2024 End: 06-53-6479sautcnhgr PF 1 % injection 1 mLmidodrine hydrochloride 5 mg oral tablet (2 sources)alpha-Adrenergic AgonistStart: 11-29-2023 End: 74-48-4985sozdvgeqh (PROAMATINE) tablet 10 mgStart: 77-12-1004kvtgostdv (PROAMATINE) tablet 10 mgnabumetone 750 mg oral tablet (7 sources)Nonsteroidal Anti-inflammatory DrugStart: 11-17-2023 End: 13-52-4124vbzu 1500 mg by mouth once daily in the morningNabumetone Discontinued 1500 MG PO Every morning November 17, 2023 12:00am November 21, 2023 11:28amStart: 04-29-2023 End: 33-28-9961zqdd 2 tablets by mouth in the morningnabumetone (Relafen) 750 MG tablet Indications: Chronic pain syndrome Take 2 tablets (1,500 mg) by mouth in the morning. 180 tablet 1 04/29/2023 10/26/2023 Activepantoprazole (PROTONIX) 40 mg in sodium chloride (PF) 0.9 % 10 mL injection (1 source)Start: 11-28-2023 End: 49-94-9455xqqnphfrflvu (PROTONIX) 40 mg in sodium chloride (PF) 0.9 % 10 mL injectionpantoprazole (PROTONIX) 80 mg in sodium chloride (PF) 0.9 % 20 mL injection (1 source)Start: 11-29-2023 End: 99-11-1658ttkwscerqcap (PROTONIX) 80 mg in sodium chloride (PF) 0.9 % 20 mL injectionpantoprazole (PROTONIX) 80 mg in sodium chloride 0.9 % 100 mL infusion (2 sources)Start: 11-29-2023 End: 12-18-1911suvdfezkamtu (PROTONIX) 80 mg in sodium chloride 0.9 % 100 mL infusionStart: 11-25-2023 End: 44-85-7043pamt 8 mg intravenously every hour8 mg/hr (10 mL/hr), IntraVENous, CONTINUOUS, Starting on Thu11/25/23 at 0445, Until 11/28/23 at 044 4traZODone hydrochloride 50 mg oral tablet (2 sources)Serotonin Reuptake InhibitorStart: 11-28-2023 End: 36-21-7898hpgSTTkvp (DESYREL) tablet 100 mgStart: 11-27-2023 End: 65-78-8577ljiWKYnte (DESYREL) tablet 50 mg Problems Active Problems Problem ClassificationProblemDateDocumented DateEpisodic/Chronic Administrative/social admission (2 sources)Advance directive discussed with patient; Translations: [Other specified counseling]68-07-6971InrsjjzpJalaccb disorders (20 sources)Generalized anxiety disorder; Translations: [Generalized anxiety disorder]Onset: 111264-36-1370HfmvfvfTrohwnu dysrhythmias (20 sources)Paroxysmal atrial fibrillation; Translations: [Paroxysmal atrial fibrillation]Onset: 973483-85-6673XcyghyfXzfotyo obstructive pulmonary disease and bronchiectasis (20 sources)Mucopurulent chronic bronchitis; Translations: [Mucopurulent chronic bronchitis]Onset: 05-30-2016 Resolved: 256472-14-0534FfpuwgfKybjpzm ulcer of skin (20 sources)Non-pressure chronic ulcer of unspecified part of right lower leg limited to breakdown of skin; Translations: [Ulcer of lower limb, unspecified] Onset: 983933-39-5746AjnwdsyXuqtouvuxbjaz of surgical procedures or medical care (20 sources)Postprocedural hypothyroidism; Translations: [Postoperative hypothyroidism]Onset: 073159-45-2465EylphesQfwjvfwies and other anemia (3 sources)Anemia, unspecified; Translations: [Anemia, unspecified]Onset: 877295-27-9882ZxlaofyvP Codes: Fall (2 sources)Fall in home; Translations: [Unspecified fall, subsequent encounter] 47-55-9740DwmuqltmDkdkeoenuo disorders (20 sources)Gastroesophageal reflux disease; Translations: [Gastro-esophageal reflux disease without esophagitis]Onset: 497800-16-4943FoirgqsHihki and electrolyte disorders (2 sources)Hypokalemia; Translations: [Hypokalemia]14-13-9990Sckwdrno Gastroduodenal ulcer (except hemorrhage) (20 sources)Ulcer of duodenum; Translations: [Duodenal ulcer, unspecified as acute or chronic, without hemorrhage or perforation]Onset: ChronicMalaise and fatigue (20 sources)Chronic fatigue, unspecified; Translations: [Fatigue]Onset: 22-32-9787ZidxouyIqejzni and fatigue (3 sources)Asthenia; Translations: [Weakness]Onset: 423102-61-0963Fufrvzlu Nutritional deficiencies (20 sources)Deficiency of macronutrients; Translations: [Mild protein-calorie malnutrition]Onset: 008357-68-8432AaksghqUspthbrlvcyigv (20 sources)Bilateral arthritis of knees; Translations: [Bilateral primary osteoarthritis of knee]Onset: 791670-30-6943MqxrccuYvqhyxtzzqkm (20 sources)Osteoporosis; Translations: [Age-related osteoporosis without current pathological fracture]Onset: 007700-08-3028NaxamgwVyafd aftercare (20 sources)Polypharmacy ; Translations: [Other long chain beamer (current) drug therapy]Onset: 605795-44-6808LjhpahwhHlpkx aftercare (4 sources)Patient encounter status; Translations: [Encounter for follow-up examination after completed treatment for conditions other than malignant neoplasm]15-41-7948LqsfywqwAnwpz diseases of veins and lymphatics (2 sources)Venous ulcer of lower extremity due to chronic peripheral venous hypertension; Translations: [Chronic venous hypertension (idiopathic) with ulcer of unspecified lower extremity]97-42-9169LjgfliyQyoej diseases of veins and lymphatics (2 sources)Stasis dermatitis; Translations: [Venous insufficiency (chronic) (peripheral)]Onset: 248233-16-9350KylxgnhhVjnkn diseases of veins and lymphatics (4 sources)Venous insufficiency (chronic) (peripheral); Translations: [Venous (peripheral) insufficiency, unspecified]76-03-4290PedbnitdZdias disorders of stomach and duodenum (5 sources)Stricture of duodenum; Translations: [Obstruction of duodenum] 71-27-2405MidkjghFlcgt disorders of stomach and duodenum (2 sources)Obstruction of duodenum; Translations: [Obstruction of duodenum] Onset: 21-88-6259HyxnjkxKbtyr hematologic conditions (1 source)Macrocytosis; Translations: [Other specified diseases of blood and blood-forming organs]01-78-3634IjqrjgvSboen hematologic conditions (2 sources)Other specified diseases of blood and blood-forming organs; Translations: [Other specified diseasesof blood and blood-forming organs]Onset: 592744-99-5700OmpxwieUahyd injuries and conditions due to external causes (2 sources)Closed injury of head; Translations: [Unspecified injury of head, sequela]18-89-5524ZdgsvivxMrdgw nervous system disorders (20 sources)Chronic pain syndrome; Translations: [Chronic pain syndrome]Onset: 287614-17-7007FwnpzidOeyqy nutritional; endocrine; and metabolic disorders (1 source)Unintentional weight loss; Translations: [Abnormal weight loss] 87-20-0065RcohsqwxXraop nutritional; endocrine; and metabolic disorders (2 sources)Abnormal weight loss; Translations: [Loss of weight]Onset: 11-17-2023 37-03-4266XfdwwdtmOxkea skin disorders (1 source)Night sweats; Translations: [Generalized hyperhidrosis]11-17-2023 EpisodicResidual codes; unclassified (20 sources)Sleep dysfunction with arousal disturbance; Translations: [Other sleep disorders]Onset: 295345-71-0178UrbmnczWuaoqibl codes; unclassified (2 sources)Tobacco use; Translations: [Tobacco use disorder]Onset: 11-17-2023 94-99-0589FcrnfxolRcuuxyle codes; unclassified (3 sources)Peripheral edema; Translations: [Localized edema]23-10-3119Ozkijpzs Respiratory failure; insufficiency; arrest (adult) (20 sources)Chronic hypoxemic respiratory failure; Translations: [Chronic respiratory failure with hypoxia]Onset: 01-06-2023 Resolved: 790790-51-6954KmwjckhVpzzcdxdh and history of mental health and substance abuse codes (20 sources)Ex-smoker; Translations: [Personal history of nicotine dependence] Onset: 526230-16-6357ZjtajpuiOamb and subcutaneous tissue infections (12 sources)Cellulitis of lower limb; Translations: [Cellulitis of unspecified part of limb]63-94-2703KjtijmwbJtsfqcbjqcv; intervertebral disc disorders; other back problems (20 sources)Lumbar post-laminectomy syndrome; Translations: [Postlaminectomy syndrome, not elsewhere classified]Onset: 01-06-2023 Resolved: 370150-59-5071FjduvwgTragbjz disorders (2 sources)Acquired hypothyroidism; Translations: [Hypothyroidism, unspecified] 30-83-6040Ptyvdmq Past or Other Problems Problem ClassificationProblemDateDocumented DateEpisodic/ChronicComplications of surgical procedures or medical care (20 sources)Complication of surgical procedure; Translations: [Unspecified complication of procedure, initial encounter]Onset: 09-03-2020 Resolved: 420787-09-3278WmtawmksPayvkczinz and other anemia (20 sources)Anemia; Translations: [Anemia, unspecified]Onset: 11-24-2023 Resolved: 628340-18-0192VlyeeilrXavgmujwnexukoon hemorrhage (20 sources)Gastrointestinal hemorrhage; Translations: [Gastrointestinal hemorrhage, unspecified]Onset: 11-17-2023 Resolved: 626775-86-5620KkzbjwfpTyvi disorders (20 sources)Recurrent major depression in partial remission; Translations: [Major depressive disorder, recurrent, in partial remission]Onset: 01-06-2023 Resolved: 079298-19-0996NbxagapUyzk disorders (20 sources)Mood disordersOnset: 08-13-2023 Resolved: Other aftercare (20 sources)Taking high risk medication; Translations: [Other jail (current) drug therapy]Onset: 09-07-2020 Resolved: 095535-52-1524ZeohirvoHsqoe aftercare (20 sources)Drug therapy finding; Translations: [Other jail (current) drug therapy]Onset: 974136-64-6866ViomofnlGegeb bone disease and musculoskeletal deformities (20 sources)Osteopenia; Translations: [Other specified disorders of bone density and structure, other site]Onset: 728381-67-5546FjdbayyrUyevg connective tissue disease (20 sources)Fibromyalgia; Translations: [Fibromyalgia]Onset: 01-06-2023 99-66-0272TlkbyjkxVxjsw diseases of veins and lymphatics (20 sources)Peripheral venous insufficiency; Translations: [Venous insufficiency (chronic) (peripheral)]Onset: 059753-80-1886LgtmotagEhgrb diseases of veins and lymphatics (20 sources)Disorder of vein of lower extremity; Translations: [Venous insufficiency (chronic) (peripheral)]Onset: 907546-45-4029WarlrfqxAbgfp injuries and conditions due to external causes (20 sources)At risk for falls ; Translations: [History of falling]Onset: 691142-51-8760UfjcqrmkHcxte nervous system disorders (20 sources)Difficulty walking; Translations: [Difficulty in walking, not elsewhere classified]Onset: 01-06-2023 Resolved: 326927-20-4886XaqdbtvZkgci nervous system disorders (20 sources)Allodynia; Translations: [Other disturbances of skin sensation] Onset: 255474-98-3410RdpqjzmhTsowo nervous system disorders (20 sources)White matter disease; Translations: [White matter disease, unspecified]Onset: 756021-29-2441XivxxljxVqnrs nutritional; endocrine; and metabolic disorders (20 sources)Overweight; Translations: [Overweight]Onset: EpisodicOther upper respiratory infections (20 sources)Maxillary sinusitis; Translations: [Chronic maxillary sinusitis] Onset: 01-06-2023 Resolved: 773182-42-5451ZirktioSefxprue codes; unclassified (7 sources)Tobacco user; Translations: [Tobacco use]Onset: EpisodicResidual codes; unclassified (18 sources)Smoker in home; Translations: [Contact with and (suspected) exposure to environmental tobacco smoke(acute) (chronic)]Onset: 04-05-2025 Resolved: 100574-93-3516ZocwcoleZzramsnlp-lzzogjc disorders (20 sources)Cigarette smoker ; Translations: [Nicotine dependence, cigarettes, uncomplicated]Onset: 05-27-2021 Resolved: 745771-74-3988TrffgqbVsorpwunt-tbvehzt disorders (20 sources)Finding relating to drug misuse behavior; Translations: [Other psychoactive substance use, unspecified, uncomplicated]Onset: 11-17-2023 Resolved: 603439-76-4583BaihkcetXfikamo disorders (20 sources)Sick-euthyroid syndrome; Translations: [Sick-euthyroid syndrome] Onset: 150912-28-2562XltsjakwLykpoqkjhziy (20 sources)Onset: 017181-44-2974Rwkmtitl veins of lower extremity (20 sources)Varicose vein of leg with phlebitis; Translations: [Varicose veins of right lower extremity with inflammation]Onset: 01-06-2023 Resolved: 957973-10-7521Hkylcbio Results Test NameValueInterpretationReference RangeFacilityALL T3 FREEon 79-54-3741Rkpz T3 [Mass/Vol]2.23 pg/mL2.18 - 3.98 pg/mLNProMedica [facility] ALL HEMOGLOBINon 69-18-3537Nhyamwtewa (Bld) [Mass/Vol]14.5 g/dL12.0 - 16.0 g/dL [facility] Reporton 01-29-2024 Surgical Pathology Report(NOTE) Path Number: [id number] -- Diagnosis -- STOMACH, BIOPSY: -MINIMAL TO MILD CHRONIC INACTIVE GASTRITIS -NO MORPHOLOGIC EVIDENCE OF HELICOBACTER PYLORI ORGANISMS Alvarez Su D.O. Electronically Signed Out [facility]/01/[facility]24 Clinical Information Pre-Op Diagnosis: DUODENAL ULCER Operative Findings: STOMACH BIOPSY Operation Performed: ESOPHAGOGASTRODUODENOSCOPY BIOPSY kb Source of Specimen A: STOMACH BIOPSY Gross Description JENNY EWING, STOMACH BIOPSY Received in formalin are three soft castelan tissue fragments ranging from 0.3 to 0.5 cm in length with a loose aggregate of 1.2 x 0.2 x 0.1 cm. Entirely 1cs. ds kb Chika Paulson M.D./kb2:02/01/2024 Microscopic Description Microscopic examination performed. Processing Lab: [address] [address] Interpretation Performed at [address] [address] SURGICAL PATHOLOGY CONSULTATION Patient Name: JENNY EWING [facility] Rec: [id number] [facility] Location [employer] [facility] ANATOMIC PATHOLOGY [address] [place] [phone] NoLancaster Municipal HospitalNo Panel InformationOrdered By: Radiologist Radiology on 67-69-5636[facility] Work Phone: No Panel Informationon 32-02-6996Ecmslmzkf Study observation (narrative)[facility] HealthcareXR ELBOW LT 2Von 71-98-2901J[address] [address] XRay Report Signed Patient: JENNY EWING MR#: [id number] : 1950 Acct:[id number] Age/Sex: 73 / F ADM Date: 01/25/24 Loc: RAD Attending Dr: CATRACHO SHERIFF Ordering Physician: CATRACHO SHERIFF Date of Service: 01/25/24 Procedure(s): XR elbow LT 2V Accession Number(s): [id number] cc: CATRACHO SHERIFF [address] [address] Patient Name: JENNY EWING MRN: [id number] date: 1950 Sex: F Assigned Patient Location: RAD Current Patient Location: RAD Accession/Order Number: [id number] Exam Date: 01/25/2024 18:17 Report Date: 01/27/2024 [...] first carpal-metacarpal joint. Electronically authenticated by: TAMI ROBERTSON Date: 01/27/2024 07:02 Dictated By: Tami Robertson M.D. Signed By: 01/27/24704 DD/ 1 TD/TT: [employer] Mechanic:TBHRadiology, Radiologist, - 01/27/2024 [place] [address] XRay Report Signed Patient: JENNY EWING MR#: [id number] : 1950 Acct:[id number] Age/Sex: 73 / F ADM Date: 01/25/24 Loc: [facility] Attending Dr: CATRACHO SHERIFF Ordering Physician: CATRACHO SHERIFF Date of Service: 01/25/24 Procedure(s): XR elbow LT 2V Accession Number(s): [id number] cc: CATRACHO SHERIFF [place] [id number] Patient Name: JENNY EWING MRN: [id number] date: 1950 Sex: F Assigned Patient Location: [facility] Current Patient Location: [facility] Accession/Order Number: [id number] Exam Date: 01/25/2024 18:17 Report Date: 01/27/2024 [...] first carpal-metacarpal joint. Electronically authenticated by: TAMI ROBERTSON Date: 01/27/2024 07:02 Dictated By: Tami Robertson M.D. Signed By: 01/27/24704 DD/ 1 TD/TT: [employer]ic: RAMIRO Gonzalez Radius and Ulna - left 2 [address] 57-56-1031[place] [address] XRay Report Signed Patient: JENNY EWING MR#: [id number] : 1950 Acct:[id number] Age/Sex: 73 / F ADM Date: 01/25/24 Loc: RAD Attending Dr: CATRACHO SHERIFF Ordering Physician: CATRACHO SHERIFF Date of Service: 01/25/24 Procedure(s): XR forearm LT 2V Accession Number(s): [id number] cc: CATRACHO SHERIFF [place] [id number] Patient Name: JENNY EWING MRN: [id number] date: 1950 Sex: F Assigned Patient Location: [facility] Current Patient Location: [facility] Accession/Order Number: [id number] Exam Date: 01/25/2024 18:17 Report Date: 01/27/2024 [...] first carpal-metacarpal joint. Electronically authenticated by: TAMI ROBERTSON Date: 01/27/2024 07:02 Dictated By: Tami Robertson M.D. Signed By: 01/27/24704 DD/ 1 TD/TT: [employer] Mechanic:TBHRadiology, Radiologist, - 01/27/2024 [place] [address] XRay Report Signed Patient: JENNY EWING MR#: [id number] : 1950 Acct:[id number] Age/Sex: 73 / F ADM Date: 01/25/24 Loc: [facility] Attending Dr: CATRACHO SHERIFF Ordering Physician: CATRACHO SHERIFF Date of Service: 01/25/24 Procedure(s): XR forearm LT 2V Accession Number(s): [id number] cc: CATRACHO SHERIFF [place] [address] Patient Name: JENNY EWING MRN: [id number] date: 1950 Sex: F Assigned Patient Location: [facility] Current Patient Location: [facility] Accession/Order Number: [id number] Exam Date: 01/25/2024 18:17 Report Date: 01/27/2024 [...] first carpal-metacarpal joint. Electronically authenticated by: TAMI ROBERTSON Date: 01/27/2024 07:02 Dictated By: Tami Robertson M.D. Signed By: 01/27/24704 DD/ 1 TD/TT: [employer]ic: RAMIRO HealthcareXR Wrist - left 2 [address] 32-54-5611[place] [address] XRay Report Signed Patient: JENNY EWING MR#: [id number] : 1950 Acct:[id number] Age/Sex: 73 / F ADM Date: 01/25/24 Loc: [facility] Attending Dr: CATRACHO SHERIFF Ordering Physician: CATRACHO SHERIFF Date of Service: 01/25/24 Procedure(s): XR wrist LT 2V Accession Number(s): [id number] cc: CATRACHO SHERIFF [place] [id number] Patient Name: JENNY EWING MRN: [id number] date: 1950 Sex: F Assigned Patient Location: [facility] Current Patient Location: [facility] Accession/Order Number: [id number] Exam Date: 01/25/2024 18:17 Report Date: 01/27/2024 [...] first carpal-metacarpal joint. Electronically authenticated by: TAMI ROBERTSON Date: 01/27/2024 07:02 Dictated By: Tami Robertson M.D. Signed By: 01/27/24704 DD/ 1 TD/TT: [employer] Mechanic:LILIAHRadiology, Radiologist, - 01/27/[address] [address] XRay Report Signed Patient: JENNY EWING MR#: [id number] : 1950 Acct:[id number] Age/Sex: 73 / F ADM Date: 01/25/24 Loc: RAD Attending Dr: CATRACHO SHERIFF Ordering Physician: CATRACHO SHERIFF Date of Service: 01/25/24 Procedure(s): XR wrist LT 2V Accession Number(s): [id number] cc: CATRACHO SHERIFF [place] [address] Patient Name: JENNY EWING MRN: [facility]:[id number] date: 1950 Sex: F Assigned Patient Location: [facility] Current Patient Location: [facility] Accession/Order Number: [id number] Exam Date: 01/25/2024 18:17 Report Date: 01/27/2024 [...] first carpal-metacarpal joint. Electronically authenticated by: TAMI ROBERTSON Date: 01/27/2024 07:02 Dictated By: Tami Robertson M.D. Signed By: 01/27/24704 DD/ 07 TD/TT: [employer]ic: RAMIRO Yoder Metab w/rfx MGon 60-98-6290Kzzgy gap [Moles/Vol]7 mmol/LLow 9-16[facility] OhioComment on above:Performed By: #### BMPX, MG, CDP #### [facility] [address] [place] [address] [employer] Tender: POONAM Lamalcium [Mass/Vol]7.6 mg/dLLow8.6-10.4[facility] OhioComment on above:Performed By: #### BMPX, MG, CDP #### [facility] [address] [place] [address] [employer] Machine Tender: POONAM Lamhloride [Moles/Vol]101 mmol/FOlepxb05-142DkmarKing'S Daughters Medical Center OhioComment on above:Performed By: #### BMPX, MG, CDP #### [facility] [address] [place] [address] [employer] Machine Tender: Dwain Aldana MDCO2 [Moles/Vol]31 mmol/HLmzmdx00-06DrqvnKing'S Daughters Medical Center OhioComment on above:Performed By: #### BMPX, MG, CDP #### [facility] [address] [place] [address] [employer] Machine Tender: POONAM Lamreatinine [Mass/Vol]0.4 mg/dLLow0.50-0.90[facility] OhioComment on above:Performed By: #### BMPX, MG, CDP #### [facility] [address] [place] [address] [employer] Machine Tender: Dwain Aldana MDGFR/1.73 sq M.predicted among non-blacks MDRD (S/P/Bld) [Vol rate/Area]mL/min/{1.73_m2}Normal>60MerAntelope Valley Hospital Medical CenterComment on above:Result Comment: These results are not intended for [...] or following therapy that affects renal tubular secretion.Performed By: #### BMPX, MG, CDP #### [facility] [address] [place] [address] [employer] Machine Tender: Dwain Aldana MDGlucose [Mass/Vol]83 mg/hMGgsczm30-40CxhrmCity of Hope National Medical CenterComment on above:Performed By: #### BMPX, MG, CDP #### [facility] [address] [place] [address] Willow Machine Tender: HEAVEN Lamotassium [Moles/Vol]3.2 mmol/LLow3.7-5.3MCity of Hope National Medical CenterComment on above:Performed By: #### BMPX, MG, CDP #### [facility] [address] [place] [address] Willow Machine Tender: MARILU Lamodium [Moles/Vol]139 mmol/RBbvbxe967-508CchgqKing'S Daughters Medical Center OhioComment on above:Performed By: #### BMPX, MG, CDP #### [facility] [address] [place] [address] Willow Machine Tender: Dwain Aldana MDUrea nitrogen [Mass/Vol]2 mg/dLLow8-23King[facility] Center OhioComment on above:Performed By: #### BMPX, MG, CDP #### [facility] [address] [place] [address] Willow Machine Tender: Dwain Aldana MDBameadowview regional medical center Metabolic Panel w/ Reflex to MGon 11-79-4873Zvnxf gap [Moles/Vol]7 mmol/LLow9 - 16 mmol/LB[facility] Calcium [Mass/Vol]7.6 mg/dLLow8.6 - 10.4 mg/dLBON SECPEACEHEALTH ST. JOHN MEDICAL CENTERY HEALTHChloride [Moles/Vol]101 mmol/L98 - 107 mmol/LBON SECOURS [facility] HEALTHCO2 [Moles/Vol]31 mmol/L20 - 31 mmol/LBON SECCENTERVILLECreatinine [Mass/Vol]0.4 mg/dLLow 0.50 - 0.90 mg/dLBON SECOURS [facility] HEALTHEst, Glom Filt Rate- PINFBON TRIHEALTHComment on above: These results are not intended [...] therapy that affects renal tubular secretion. Glucose [Mass/Vol]83 mg/dL74 - 99 mg/dLBON TRIHEALTHInterpretation and review of laboratory resultsAbnormalBON TRIHEALTHPotassium [Moles/Vol]3.2 mmol/LLow3.7 - 5.3 mmol/LBON SECCENTERVILLESodium [Moles/Vol]139 mmol/L136 - 145 mmol/LBON TRIHEALTHUrea nitrogen [Mass/Vol]2 mg/dLLow8 - 23 mg/dLBON [facility]STOU[facility] CBC with Auto Differentialon [id number] (Bld) [#/Vol]0.08 10*3/uLBON SECOURS [facility]ENTERBasophils/100 WBC (Bld)1 %0 - 2 %[place] Eosinophils (Bld) [#/Vol]0.23 10*3/uLBON SECOURS [facility] MEDICAL CENTEREosinophils/100 WBC (Bld)3 %1 - 4 %BON SECCENTERVILLEErythrocyte distribution width (RBC) [Ratio]17.7 %High11.8 - 14.4 %BON SECCENTERVILLEHematocrit (Bld) [Volume fraction]29.4 %Low36.3 - 47.1 %BON SECCENTERVILLEHemoglobin (Bld) [Mass/Vol]9.6 g/dLLow11.9 - 15.1 g/dLBON SECPEACEHEALTH ST[facility]ERY HEALTHImmature granulocytes (Bld) [#/Vol]0.08 10*3/uLBON SECOURS [facility]ITALY HEALTHImmature granulocytes/100 WBC (Bld)1 %Csnh1QFHINOVA FAIR OAKS HOSPITALInterpretation and review of laboratory resultsAbnormalBON [facility] HEALTHLymphocytes/100 WBC (Bld)18 %Low24 - 43 %[facility] HEALTHLymphocytes/100 WBC (Bld)1.37 %[facility]ENTERH (RBC) [Entitic mass]30.4 pg25.2 - 33.5 pgMOUNTAIN VIEW REGIONAL MEDICAL CENTERHC (RBC) [Mass/Vol]32.7 g/dL28.4 - 34.8 g/dLBON ADAMS COUNTY REGION[facility] MEDICAL CENTERV (RBC) [Entitic vol]93.0 fL82.6 - 102.9 fLINOVA FAIR OAKS HOSPITAL Monocytes/100 WBC (Bld)9 %3 - 12 %[facility] HOSPITALMonocytes/100 WBC (Bld)0.68 %IN[facility] FA[facility] OAKS HOSPITALMorphology Jesus (Bld) [Interp]NormalBON TRIHEALTHNeutrophils/100 WBC (Bld)68 %High36 - 65 %[facility] HOSPITALNucleated RBC/100 WBC (Bld) [Ratio]0.0 %0.0 per 100 WBCBON [facility] HEALTHPlatelet, [id number] SECSA[facility] HEALTHPlatelets (Bld) [#/Vol] See Reflexed IPF ResultBON TRIHEALTHPlatelets reticulated/100 platelets Auto (Bld)4.0 %1.1 - 10.3 %[facility]ERY HEALTHRBC (Bld) [#/Vol] 3.16 10*6/uLLow3.95 - 5.11 m/uLBON SECPEACEHEALTH ST[facility]ENTERY HEALTHRBC (Bld) [#/Vol] ANISOCYTOSIS PRESENTBON TRIHEALTHSegmented neutrophils/100 WBC (Bld) 5.16 %INOVA FAIR OAKS HOSPITALWBC other (Bld) [#/Vol]7.6BON SECSAVOY [facility] HEALTH BON TRIHEALTHCB with Diffon [id number]. Basophil0.08 k/uLNormal 0.00-0.20[facility] OhioComment on above:Performed By: #### BMPX, MG, CDP #### [facility] [address] [place] [address] Willow Machine Tender: MDAbs. CaroleImm.Granulocyte0.08 k/uLNormal0.00-0.30[facility] OhioComment on above:Performed By: #### BMPX, MG, CDP #### [facility] [employer] [address] [place] [address] Willow Machine Tender: Paul Lam.Neutrophil (Seg)5.16 k/uLNormal1.50-8.10 [facility] OhioComment on above:Performed By: #### BMPX, MG, CDP #### [email or web address] [address] [place] [address] Willow Machine Tender: Dwain Aldana MDBasophils/100 WBC (Bld)1 %Normal0-2MCity of Hope National Medical CenterComment on above:Performed By: #### BMPX, MG, CDP #### [email or web address] [address] [place] [address]97 Willow Machine Tender: BALDOMERO Lamosinophils (Bld) [#/Vol]0.23 10*3/uLNormal 0.00-0.44[facility] OhioComment on above:Performed By: #### BMPX, MG, CDP #### [email or web address] [address] [place] [address]843 Willow Machine Tender: BALDOMERO Lamosinophils/100 WBC (Bld)3 %Normal1-4[facility] OhioComment on above:Performed By: #### BMPX, MG, CDP #### [facility] [employer] [address] [place] [address] Willow Machine Tender: Dwain Aldana MDImmature granulocytes/100 WBC (Bld)1 %Trsc4DywoiKing'S Daughters Medical Center OhioComment on above:Performed By: #### BMPX, MG, CDP #### [facility] [address] [place] [address] Willow Machine Tender: Dwain Aldana MDLymphocytes (Bld) [#/Vol]1.37 10*3/uLNormal 1.10-3.70[facility] OhioComment on above:Performed By: #### BMPX, MG, CDP #### [facility] [address] [place] [address] Willow Machine Tender: Dwain Aldana MDLymphocytes/100 WBC (Bld)18 %Iiq30-47ZokcjKing'S Daughters Medical Center OhioComment on above:Performed By: #### BMPX, MG, CDP #### [facility] [address] [place] [address] Willow Machine Tender: HONORIO Lamonocytes (Bld) [#/Vol]0.68 10*3/uLNormal 0.10-1.20[facility] OhioComment on above:Performed By: #### BMPX, MG, CDP #### [facility] [address] [place] [address] Willow Machine Tender: HONORIO Lamonocytes/100 WBC (Bld)9 %Normal3-12[facility] OhioComment on above:Performed By: #### BMPX, MG, CDP #### [facility] [address] [place] [address]04 Willow Machine Tender: HONORIO Lamorphology Jesus (Bld) [Interp]NormalNormalKing'S Daughters Medical Center OhioComment on above:Performed By: #### BMPX, MG, CDP #### [facility] [address] [place] [address]30 Willow Machine Tender: Dwain Aldana MDNeutrophil (Seg)68 %Nbub59-40ToujuKing'S Daughters Medical Center OhioComment on above:Performed By: #### BMPX, MG, CDP #### [facility] [address] [place] [address]681 Willow Machine Tender: Amber Lam Fluoresc.347 k/gOFdgmpd987-788KtkijKing'S Daughters Medical Center OhioComment on above:Performed By: #### BMPX, MG, CDP #### [facility] [address] [place] [address] Willow Machine Tender: KATERINE Lam Immature Fract.4.0 %Normal1.1-10.3MercSharp Mary Birch Hospital for WomenComment on above:Performed By: #### BMPX, MG, CDP #### [facility] [address] [place] [address] 31336 Willow Machine Tender: Dwain Aldana MDErythrocyte distribution width (RBC) [Ratio]17.7 %High11.8-14.4[facility] OhioComment on above:Performed By: #### BMPX, MG, CDP #### [facility] [address] [place] [address] 14045 Willow Machine Tender: Dwain Aldana MDHematocrit (Bld) [Volume fraction]29.4 %Low 36.3-47.1[facility] Regional Medical CenterComment on above:Performed By: #### BMPX, MG, CDP #### [facility] [address] [place] [address] Willow Machine Tender: Dwain Aldana MDHemoglobin (Bld) [Mass/Vol]9.6 g/dLLow11.9-15.1 [facility] OhioComment on above:Performed By: #### BMPX, MG, CDP #### [facility] [address] [place] [address]40 Willow Machine Tender: Dwain Madoff, MDMCH (RBC) [Entitic mass]30.4 lbEmtbwf36.2-33.5 [facility] OhioComment on above:Performed By: #### BMPX, MG, CDP #### [facility] [address] [place] [address] Willow Machine Tender: NATALIIA LamC (RBC) [Mass/Vol]32.7 g/nDJbovnt32.4-34.8 [facility] OhioComment on above:Performed By: #### BMPX, MG, CDP #### [facility] [address] [place] [address] 04356 Willow Machine Tender: HONORIO LamCV (RBC) [Entitic vol]93.0 jJKjxvra10.6-102.9 [facility] OhioComment on above:Performed By: #### BMPX, MG, CDP #### [facility] [employer] [address] [place] [address]12 Willow Machine Tender: VICKIE Lam Automated0.0 per 100 WBCNormal0.0[facility] OhioComment on above:Performed By: #### BMPX, MG, CDP #### [facility] [employer] [address] [place] [address]2388 Willow Machine Tender: Isrrael Lamtelet CountSee Reflexed IPF ResultNormal 138-453MerAntelope Valley Hospital Medical CenterComment on above:Performed By: #### BMPX, MG, CDP #### [facility] [employer] [address] [place] [address] 35878 Willow Machine Tender: VIVEK Lam (Bld) [#/Vol]3.16 10*6/uLLow3.95-5.11[facility] OhioComment on above:Performed By: #### BMPX, MG, CDP #### [facility] [employer] [address] [place] [address] 79265 Willow Machine Tender: VVIEK Lam morphology finding Nom (Bld)ANISOCYTOSIS PRESENTNormalKing'S Daughters Medical Center OhioComment on above:Performed By: #### MG MALCOLM, CDP #### [employer] [address] [place] [address] 40707 Willow Machine Tender: Dwain Aldana MDWBC (Bld) [#/Vol]7.6 10*3/uLNormal3.5-11.3[facility] Regional Medical CenterComment on above:Performed By: #### MG MLACOLM, CDP #### [employer] [address] [place] [address] 25334 Willow Machine Tender: Dwain Aldana MDMagnesiumon [id number] [Mass/Vol]1.7 mg/dLNormal1.6-2.4[facility] OhioComment on above:Performed By: #### MG MALCOLM, CDP #### [employer] [address] [place] [address] 01438 Willow Machine Tender: Dwain Aldana MDMagnesium [Mass/Vol]1.7 mg/dL1.6 - 2.4 mg/dLBON SELECT SPECIALTY HOSPITAL-SIOUX FALLSBasic Metab w/rfx MGon 12-02-2023 Anion gap [Moles/Vol]8 mmol/LLow9-16[facility] OhioComment on above:Performed By: #### MALCOLM MG, CDP #### [facility] [address] [place] [address]146 Willow Machine Tender: Dwain Aldana MDCalcium [Mass/Vol]7.0 mg/dLLow8.6-10.4[facility] OhioComment on above:Performed By: #### MALCOLM MG, CDP #### [facility] [address] [place] [address]2394 Willow Machine Tender: Dwain Aldana MDChloride [Moles/Vol]101 mmol/PLxzfuo16-466CfgyyKing'S Daughters Medical Center OhioComment on above:Performed By: #### MALCOLM MG, CDP #### [facility] [address] [place] [address] 85590 Willow Machine Tender: POONAM LamO2 [Moles/Vol]28 mmol/NLzrpfx39-54RrekrKing'S Daughters Medical Center OhioComment on above:Performed By: #### MALCOLM MG, CDP #### [facility] [address] [place] [address] 90941 Willow Machine Tender: POONAM Lamreatinine [Mass/Vol]0.4 mg/dLLow0.50-0.90[facility] OhioComment on above:Performed By: #### MG MALCOLM, CDP #### [facility] [address] [place] [address] 27617 Willow Machine Tender: Dwain Aldana MDGFR/1.73 sq M.predicted among non-blacks MDRD (S/P/Bld) [Vol rate/Area]mL/min/{1.73_m2}Normal>60[facility] OhioComment on above:Result Comment: These results are not intended for [...] or following therapy that affects renal tubular secretion.Performed By: #### MALCOLM MG, CDP #### [facility] [address] [place] [address] 96718 Willow Machine Tender: Dwain Aldana MDGlucose [Mass/Vol]85 mg/cHYywgho49-47GyafqCity of Hope National Medical CenterComment on above:Performed By: #### MALCOLM MG, CDP #### [facility] [address] [place] [address] 24878 Willow Machine Tender: HEAVEN Lamotassium [Moles/Vol]3.4 mmol/LLow3.7-5.3[facility] Regional Medical CenterComment on above:Performed By: #### BMPX MG, CDP #### [facility] [address] [place] [address] Willow Machine Tender: MARILU Lamodium [Moles/Vol]137 mmol/HTgjyae366-471BcxeiKing'S Daughters Medical Center OhioComment on above:Performed By: #### BMPX MG, CDP #### [facility] [address] [place] [address] Willow Machine Tender: Dwain Aldana MDUrea nitrogen [Mass/Vol]4 mg/dLLow8-23[facility] OhioComment on above:Performed By: #### BMPX MG, CDP #### [facility] [address] [place] [address] 18098 Willow Machine Tender: Dwain Aldana MDNatchaug Hospital Metabolic Panel w/ Reflex to MGon [id number] gap [Moles/Vol]8 mmol/LLow9 - 16 mmol/LBON SECRebit Calcium [Mass/Vol]7.0 mg/dLLow8.6 - 10.4 mg/dLBON SECBone Therapeutics HEALTHChloride [Moles/Vol]101 mmol/L98 - 107 mmol/LBON SECOURS [employer] HEALTHCO2 [Moles/Vol]28 mmol/L20 - 31 mmol/LBON SECOU[facility] [employer] HEALTHCreatinine [Mass/Vol]0.4 mg/dLLow 0.50 - 0.90 mg/dLBON SECBone Therapeutics HEALTHEst, Glom Filt Rate- PINFBON SECRebitComment on above: These results are not intended [...] therapy that affects renal tubular secretion. Glucose [Mass/Vol]85 mg/dL74 - 99 mg/dLBON SEC[facility]RS [facility] HEALTHInterpretation and review of laboratory resultsAbnormalBON TRIHEALTHPotassium [Moles/Vol]3.4 mmol/LLow3.7 - 5.3 mmol/LBON SECCENTERVILLESodium [Moles/Vol]137 mmol/L136 - 145 mmol/LBON SECCENTERVILLEUrea nitrogen [Mass/Vol]4 mg/dLLow8 - 23 mg/dLBON [facility] CBC with Auto Differentialon [id number] (Bld) [#/Vol]0.05 10*3/uLBON TRIHEALTHBasophils/100 WBC (Bld)1 %0 - 2 %[facility] Eosinophils (Bld) [#/Vol]0.18 10*3/uLBON SECOURS [facility] MEDICAL CENTEREosinophils/100 WBC (Bld)3 %1 - 4 %[facility] HOSPITALErythrocyte distribution width (RBC) [Ratio]17.9 %High11.8 - 14.4 %[facility] HOSPITALHematocrit (Bld) [Volume fraction]27.5 %Low36.3 - 47.1 %[facility] HOSPITALHemoglobin (Bld) [Mass/Vol]8.2 g/dLLow11.9 - 15.1 g/dLBON SECCENTERVILLEImmature granulocytes (Bld) [#/Vol]0.04 10*3/uLBON TRIHEALTHImmature granulocytes/100 WBC (Bld)1 %Osfw5BAM TRIHEALTHInterpretation and review of laboratory resultsAbnormalBON TRIHEALTHLymphocytes/100 WBC (Bld)13 %Low24 - 43 %BON TRIHEALTHLymphocytes/100 WBC (Bld)0.92 %Low BON [facility] CENTERH (RBC) [Entitic mass]30.0 pg25.2 - 33.5 pgBON ADAMS COUNTY REGIONAL MEDICAL CENTERHC (RBC) [Mass/Vol]29.8 g/dL28.4 - 34.8 g/dLBON SECOHIOHEALTH DUBLIN METHODIST HOSPITALV (RBC) [Entitic vol]100.7 fL82.6 - 102.9 fLBATH COMMUNITY [facility]ITAL [facility] Monocytes/100 WBC (Bld)7 %3 - 12 %BON SECPEACEHE[facility]ERY HEALTHMonocytes/100 WBC (Bld)0.47 %[facility] HEALTHNeutrophils/100 WBC (Bld)77 %High36 - 65 %[facility] HEALTHNucleated RBC/100 WBC (Bld) [Ratio]0.0 %0.0 per [address] [facility] HOSPITALY HEALTHPlatelet, Lviybunharpd517HOJ SECOURS MERCY HEALTHPlatelets (Bld) [#/Vol]See Reflexed IPF ResultBON SECOURS MOUNT ST. MARY HOSPITALY HEALTHPlatelets reticulated/100 platelets Auto (Bld)3.7 %1.1 - 10.3 %BON SECPEACEHE[facility] CENTERY HEALTHRBC (Bld) [#/Vol]2.73 10*6/uLLow3.95 - 5.11 m/uLBON SECPEACEHEALTH ST[facility]ENTERY HEALTHRBC (Bld) [#/Vol]ANISOCYTOSIS PRESENTBON COLUSA REGION[facility]ENTERY [facility] RITA'S MEDICAL CENTERSegmented neutrophils/100 WBC (Bld)5.49 %BON SECPEACEHE[facility]ENTERY HEALTHWBC other (Bld) [#/Vol]7.2BON SECSAVOY MEDICAL CENTER HEALTHINOVA FAIR OAKS HOSPITALCBC with Diffon [id number], Fluoresc.319 k/oMNcadfq121-250BrlhqKing'S Daughters Medical Center OhioComment on above:Performed By: #### BMPX, MG, CDP #### [employer] [address] [place] [address] Willow Machine Tender: KATERINE Lam, Immature Fract.3.7 %Normal1.1-10.3[facility] Regional Medical CenterComment on above:Performed By: #### BMPX, MG, CDP #### [employer] [address] [place] [address] Willow Machine Tender: Paul Lam. Basophil0.05 k/uLNormal0.00-0.20[facility] OhioComment on above:Performed By: #### BMPX, MG, CDP #### [employer] [address] [place] [address] Willow Machine Tender: Paul Lam.Imm.Granulocyte0.04 k/uLNormal0.00-0.30[facility] OhioComment on above:Performed By: #### BMPX MG, CDP #### [facility] [address] [place] [address] 96116 Willow Machine Tender: Paul Lam.Neutrophil (Seg)5.49 k/uLNormal1.50-8.10 [facility] OhioComment on above:Performed By: #### BMPX, MG, CDP #### [facility] [address] [place] [address] Willow Machine Tender: Dwain Aldana MDBasophils/100 WBC (Bld)1 %Normal0-2MCity of Hope National Medical CenterComment on above:Performed By: #### MALCOLM MG, CDP #### [facility] [employer] [address] [place] [address] Willow Machine Tender: Dwain Aldana MDEosinophils (Bld) [#/Vol]0.18 10*3/uLNormal 0.00-0.44[facility] OhioComment on above:Performed By: #### MALCOLM, MG, CDP #### [facility] [employer] [address] [place] [address] Willow Machine Tender: Dwain Aldana MDEosinophils/100 WBC (Bld)3 %Normal1-4[facility] OhioComment on above:Performed By: #### BMPX, MG, CDP #### [facility] [employer] [address] [place] [address] Willow Machine Tender: Dwain Aldana MDErythrocyte distribution width (RBC) [Ratio]17.9 %High11.8-14.4[facility] OhioComment on above:Performed By: #### BMPX MG, CDP #### [facility] [employer] [address] [place] [address] Willow Machine Tender: Dwain Aldana MDHematocrit (Bld) [Volume fraction]27.5 %Low 36.3-47.1MCity of Hope National Medical CenterComment on above:Performed By: #### BMPX, MG, CDP #### [facility] [employer] [address] [place] [address]276 Willow Machine Tender: Dwain Aldana MDHemoglobin (Bld) [Mass/Vol]8.2 g/dLLow11.9-15.1 [facility] OhioComment on above:Performed By: #### BMPX, MG, CDP #### [facility] [employer] [address] [place] [address] Willow Machine Tender: Dwain Aldana MDImmature granulocytes/100 WBC (Bld)1 %Svnf3OozfwKing'S Daughters Medical Center OhioComment on above:Performed By: #### MALCOLM MG, CDP #### [facility] [employer] [address] [place] [address] Willow Machine Tender: Dwain Aldana MDLymphocytes (Bld) [#/Vol]0.92 10*3/uLLow 1.10-3.70[facility] OhioComment on above:Performed By: #### BMPX, MG, CDP #### [facility] [employer] [address] [place] [address] 87639 Willow Machine Tender: Nikole Lammphocytes/100 WBC (Bld)13 %Jpo47-13YylzsKing'S Daughters Medical Center OhioComment on above:Performed By: #### BMPX, MG, CDP #### [facility] [employer] [address] [place] [address] 69116 Willow Machine Tender: HONORIO LamCH (RBC) [Entitic mass]30.0 ywScpkpi02.2-33.5 [facility] OhioComment on above:Performed By: #### BMPX, MG, CDP #### [facility] [address] [place] [address] 28700 Willow Machine Tender: HONORIO LamCHC (RBC) [Mass/Vol]29.8 g/qUEvamdq19.4-34.8 [facility] OhioComment on above:Performed By: #### BMPX, MG, CDP #### [facility] [address] [place] [address] 60619 Willow Machine Tender: HONORIO LamCV (RBC) [Entitic vol]100.7 fBLrrqrd90.6-102.9 [facility] OhioComment on above:Performed By: #### BMPX, MG, CDP #### [facility] [address] [place] [address]194 Willow Machine Tender: HONORIO Lamonocytes (Bld) [#/Vol]0.47 10*3/uLNormal 0.10-1.20[facility] OhioComment on above:Performed By: #### BMPX, MG, CDP #### [facility] [address] [place] [address] 31133 Willow Machine Tender: HONORIO Lamonocytes/100 WBC (Bld)7 %Normal3-12[facility] OhioComment on above:Performed By: #### BMPX, MG, CDP #### [facility] [employer] [address] [place] [address] 72086 Willow Machine Tender: Tara Lamutrophil (Seg)77 %Qomf39-84XbbtoKing'S Daughters Medical Center OhioComment on above:Performed By: #### BMPX, MG, CDP #### [facility] [address] [place] [address]607 Willow Machine Tender: VICKIE Lam Automated0.0 per 100 WBCNormal0.0[facility] OhioComment on above:Performed By: #### BMPX, MG, CDP #### [facility] [employer] [address] [place] [address] 30043 Willow Machine Tender: HEAVEN Lamlatelet CountSee Reflexed IPF ResultNormal 138-453[facility] OhioComment on above:Performed By: #### BMPX, MG, CDP #### [facility] [address] [place] [address] 6[address] Willow Machine Tender: RUBEN LamBC (Bld) [#/Vol]2.73 10*6/uLLow3.95-5.11[facility] OhioComment on above:Performed By: #### BMPX, MG, CDP #### [facility] [address] [place] [address] 63371 Willow Machine Tender: VIVEK Lam morphology finding Nom (Bld)ANISOCYTOSIS PRESENTNormalKing'S Daughters Medical Center OhioComment on above:Performed By: #### BMPX, MG, CDP #### [facility] [address] [place] [address] 94988 Willow Machine Tender: Dwain Aldana MDWBC (Bld) [#/Vol]7.2 10*3/uLNormal3.5-11.3MCity of Hope National Medical CenterComment on above:Performed By: #### BMPX, MG, CDP #### [facility] [address] [place] [address] 60255 Willow Machine Tender: Dwain Aldana MDMagnesiumon 66-21-9338Egigdaaac [Mass/Vol]1.7 mg/dLNormal1.6-2.4[facility] OhioComment on above:Performed By: #### BMPX, MG, CDP #### [facility] [address] [place] [address] 94891 Willow Machine Tender: Dwain Aldana MDMagnesium [Mass/Vol]1.7 mg/dL1.6 - 2.4 mg/dLBON SECCENTERVILLEBON SECCENTERVILLEBasic Metab w/rfx MGon 05-07-2024 Anion gap [Moles/Vol]7 mmol/LLow9-16[facility] OhioComment on above:Performed By: #### HH #### [facility] [address] [place] [address]365 Willow Machine Tender: POONAM Lamalcium [Mass/Vol]6.8 mg/dLLow8.6-10.4[facility] OhioComment on above:Performed By: #### HH #### [facility] [address] [place] [address] Willow Machine Tender: Dwain Aldana MDChloride [Moles/Vol]107 mmol/NZxhbwr59-623YvsugKing'S Daughters Medical Center OhioComment on above:Performed By: #### HH #### [facility] [employer] [address] [place] [address] Willow Machine Tender: Dwain Aldana MDCO2 [Moles/Vol]23 mmol/GYxfcjz00-33RoypiKing'S Daughters Medical Center OhioComment on above:Performed By: #### HH #### [facility] [address] [place] [address] 56859 Willow Machine Tender: POONAM Lamreatinine [Mass/Vol]0.3 mg/dLLow0.50-0.90[facility] OhioComment on above:Performed By: #### HH #### [address] [address] Willow Machine Tender: Dwain Aldana MDGFR/1.73 sq M.predicted among non-blacks MDRD (S/P/Bld) [Vol rate/Area]mL/min/{1.73_m2}Normal>60MerAntelope Valley Hospital Medical CenterComment on above:Result Comment: These results are not intended for [...] or following therapy that affects renal tubular secretion.Performed By: #### HH #### [address] [address] Willow Machine Tender: Dwain Aldana MDGlucose [Mass/Vol]79 mg/yWZworjl23-93YndpuCity of Hope National Medical CenterComment on above:Performed By: #### HH #### [address] [address] Willow Machine Tender: Dwain Aldana MDPotassium [Moles/Vol]3.8 mmol/LNormal3.7-5.3 [facility] OhioComment on above:Performed By: #### HH #### [address] [address] Willow Machine Tender: Dwain Aldana MDSodium [Moles/Vol]137 mmol/HLahdaq050-040NfdsbKing'S Daughters Medical Center OhioComment on above:Performed By: #### HH #### [address] [address] Willow Machine Tender: Dwain Aldana MDUrea nitrogen [Mass/Vol]8 mg/dLNormal8-23[facility] OhioComment on above:Performed By: #### HH #### [address] [address] [employer] Machine Tender: Dwain Aldana MDBameadowview regional medical center Metabolic Panel w/ Reflex to MGon 36-26-2468Zsjfo gap [Moles/Vol]7 mmol/LLow9 - 16 mmol/LB[facility]ALTH Calcium [Mass/Vol]6.8 mg/dLLow8.6 - 10.4 mg/dLBON [facility] HEALTHChloride [Moles/Vol]107 mmol/L98 - 107 mmol/LBON [facility] HEALTHCO2 [Moles/Vol]23 mmol/L20 - 31 mmol/LBON [facility] HEALTHCreatinine [Mass/Vol]0.3 mg/dLLow 0.50 - 0.90 mg/dLBON SECOURS MOUNT [facility] HOSPITALY HEALTHEst, Glom Filt Rate- PINFBON TRIHEALTHComment on above: These results are not intended [...] therapy that affects renal tubular secretion. Glucose [Mass/Vol]79 mg/dL74 - 99 mg/dLBON TRIHEALTHInterpretation and review of laboratory resultsAbnormalBON [facility] HEALTHPotassium [Moles/Vol]3.8 mmol/L3.7 - 5.3 mmol/LBON SECCENTERVILLESodium [Moles/Vol] 137 mmol/L136 - 145 mmol/LBON TRIHEALTHUrea nitrogen [Mass/Vol]8 mg/dL8 - 23 mg/dLBON SECSTOUGHTON HOSPITALCBC with Auto Differentialon 13-80-6875Nuumeldkl (Bld) [#/Vol]0.04 10*3/uLBON SECOURS MOUNT [facility] HOSPITALY [facility] MEDICAL CENTERBasophils/100 WBC (Bld)1 %0 - 2 %[facility] HEALTHEosinophils (Bld) [#/Vol]0.15 10*3/uLBON SECOU[facility]ITA'S MEDICAL CENTEREosinophils/100 WBC (Bld)2 %1 - 4 % [facility]Y [facility]'S MEDICAL CENTERErythrocyte distribution width (RBC) [Ratio]18.8 %High 11.8 - 14.4 %[facility]ITALY HEALTHHematocrit (Bld) [Volume fraction]22.9 %Low 36.3 - 47.1 %[facility]Y HEALTHHemoglobin (Bld) [Mass/Vol]7.1 g/dLLow11.9 - 15.1 g/dLBON SECOURS MOUNT [facility] HOSPITALY [facility] MEDICAL CENTERImmature granulocytes (Bld) [#/Vol]0.04 10*3/uLBON SECOURS M[facility] HOSPITALY [facility] MEDICAL CENTERImmature granulocytes/100 WBC (Bld)1 %Cofv1OWM SECPEACEHE[facility] ST[facility]ERY [facility] MEDICAL CENTERInterpretation and review of laboratory resultsAbnormalINOVA FAIR OAKS HOSPITALLymphocytes/100 WBC (Bld)17 %Low24 - 43 %BON SECCENTERVILLELymphocytes/100 WBC (Bld)1.27 %BON SECOHIOHEALTH DUBL[facility] METHODIST HOSPITALH (RBC) [Entitic mass]30.1 pg25.2 - 33.5 pgBON SECOHIOHEALTH DUBLIN METHODIST HOSPITALHC (RBC) [Mass/Vol]31.0 g/dL 28.4 - 34.8 g/dLBON SECOHIOHEALTH DUBLIN METHODIST HOSPITALV (RBC) [Entitic vol]97.0 fL82.6 - 102.9 fLBON [facility] HEALTHMonocytes/100 WBC (Bld)8 %3 - 12 %BON SECCENTERVILLEMonocytes/100 WBC (Bld)0.61 %BON SECCENTERVILLENeutrophils/100 WBC (Bld)72 %High36 - 65 %BON SECCENTERVILLENucleated RBC/100 WBC (Bld) [Ratio]0.0 %0.0 per 100 WBCBON [facility] HEALTHPlatelet mean volume (Bld) [Entitic vol]10.2 fL8.1 - 13.5 fLBON [facility] HEALTHPlatelets (Bld) [#/Vol] 201 10*3/uLBON TRIHEALTHRBC (Bld) [#/Vol]2.36 10*6/uLLow3.95 - 5.11 m/uLINOVA FAIR OAKS HOSPITALRBC (Bld) [#/Vol]ANISOCYTOSIS PRESENTBON TRIHEALTHSegmented neutrophils/100 WBC (Bld)5.55 %BON TRIHEALTHWBC other (Bld) [#/Vol]7.7BON SECTHE [facility] SECCENTERVILLECBC with Diffon 61-98-1306Cjr. Basophil0.04 k/uLNormal0.00-0.20[facility] OhioComment on above:Performed By: #### HH #### [employer] [address] [place], [place] [id number] Will[employer] Machine Tender: Paul Lam.Imm.Granulocyte0.04 k/uLNormal0.00-0.30[facility] OhioComment on above:Performed By: #### HH #### [place] [address] [employer] Machine Tender: Paul Lam.Neutrophil (Seg)5.55 k/uLNormal1.50-8.10 [facility] OhioComment on above:Performed By: #### HH #### [place] [address] [employer] Machine Tender: Dwain Aldana MDBasophils/100 WBC (Bld)1 %Normal0-2MCity of Hope National Medical CenterComment on above:Performed By: #### HH #### [place] [address] [employer] Machine Tender: Dwain Aldana MDEosinophils (Bld) [#/Vol]0.15 10*3/uLNormal 0.00-0.44[facility] OhioComment on above:Performed By: #### HH #### [place] [address] [employer] Machine Tender: Dwain Aldana MDEosinophils/100 WBC (Bld)2 %Normal1-4[facility] OhioComment on above:Performed By: #### HH #### [place] [address] [employer] Machine Tender: Dwain Aldana MDErythrocyte distribution width (RBC) [Ratio]18.8 %High11.8-14.4[facility] OhioComment on above:Performed By: #### HH #### [place] [address] [employer] Machine Tender: Dwain Aladna MDHematocrit (Bld) [Volume fraction]22.9 %Low 36.3-47.1MCity of Hope National Medical CenterComment on above:Performed By: #### HH #### [address] [address] [employer] Machine Tender: Dwain Aldana MDHemoglobin (Bld) [Mass/Vol]7.1 g/dLLow11.9-15.1 [facility] OhioComment on above:Performed By: #### HH #### [address] [address] [employer] Machine Tender: Citlalli Lammature granulocytes/100 WBC (Bld)1 %Wqyq2IhqptKing'S Daughters Medical Center OhioComment on above:Performed By: #### HH #### [address] [address] [employer] Machine Tender: Dwain Aldana MDLymphocytes (Bld) [#/Vol]1.27 10*3/uLNormal 1.10-3.70[facility] OhioComment on above:Performed By: #### HH #### [address] [address] [employer] Machine Tender: Nikole Lammphocytes/100 WBC (Bld)17 %Kat32-33BhjiyKing'S Daughters Medical Center OhioComment on above:Performed By: #### HH #### [address] [address] [employer] Machine Tender: HONORIO LamCH (RBC) [Entitic mass]30.1 nuUhiqgo81.2-33.5 [facility] OhioComment on above:Performed By: #### HH #### [address] [address] [employer] Machine Tender: HONORIO LmaCHC (RBC) [Mass/Vol]31.0 g/lTYhsypa63.4-34.8 [facility] OhioComment on above:Performed By: #### HH #### [address] [address] [employer] Machine Tender: HONORIO LamCV (RBC) [Entitic vol]97.0 zCQlfwps21.6-102.9 [facility] OhioComment on above:Performed By: #### HH #### [place] [address] [employer] Machine Tender: HONORIO Lamonocytes (Bld) [#/Vol]0.61 10*3/uLNormal 0.10-1.20[facility] OhioComment on above:Performed By: #### HH #### [place] [address] [employer] Machine Tender: HONORIO Lamonocytes/100 WBC (Bld)8 %Normal3-12[facility] OhioComment on above:Performed By: #### HH #### [place] [address] [employer] Machine Tender: Dwain Aldana MDNeutrophil (Seg)72 %Nbau12-95VdlalKing'S Daughters Medical Center OhioComment on above:Performed By: #### HH #### [place] [address] [employer] Machine Tender: Dwain Aldana MDNRBC Automated0.0 per 100 WBCNormal0.0[facility] OhioComment on above:Performed By: #### HH #### [place] [address] [employer] Machine Tender: Dwain Aldana MDPlatelet mean volume (Bld) [Entitic vol]10.2 fL Normal8.1-13.5[facility] OhioComment on above:Performed By: #### HH #### [place] [address] [employer] Machine Tender: HEAVEN Lamlatelets (Bld) [#/Vol]201 10*3/hBNfcgvp652-911 [facility] OhioComment on above:Performed By: #### HH #### [facility] [address] [place] [address] [employer] Machine Tender: RUBEN LamBC (Bld) [#/Vol]2.36 10*6/uLLow3.95-5.11[facility] OhioComment on above:Performed By: #### HH #### [facility] [address] [place] [address] [employer] Machine Tender: VIVEK Lam morphology finding Nom (Bld)ANISOCYTOSIS PRESENTNormalKing'S Daughters Medical Center OhioComment on above:Performed By: #### HH #### [facility] [address] [place] [address] [employer] Machine Tender: Dwain Aldana MDWBC (Bld) [#/Vol]7.7 10*3/uLNormal3.5-11.3MCity of Hope National Medical CenterComment on above:Performed By: #### HH #### [facility] [address] [place] [address] Will[employer] Machine Tender: Dwain Aldana MDHemoglobin and Hematocriton 95-77-2434Hlskbxcdwv (Bld) [Volume fraction]27.1 %Low36.3 - 47.1 %IN[facility] FAIR OAKS HOSPITALHemoglobin (Bld) [Mass/Vol]8.9 g/dLLow11.9 - 15.1 g/dLBON TRIHEALTH Interpretation and review of laboratory resultsAbnormalINOVA FAIR OAKS HOSPITAL BON TRIHEALTHHematocrit (Bld) [Volume fraction]28.7 %Low36.3 - 47.1 % [facility]AKS HOSPITALHemoglobin (Bld) [Mass/Vol]8.8 g/dLLow11.9 - 15.1 g/dL IN[facility] OAKS HOSPITALInterpretation and review of laboratory resultsAbnormal BON TRIHEALTHBON TRIHEALTHHgb/Hcton 83-07-5790Wnknrlhgtb (Bld) [Volume fraction]27.1 %Low36.3-47.1[facility] Regional Medical CenterComment on above:Performed By: #### TSHX, PRCAL #### [email or web address] [address] [place] [address] [employer] Machine Tender: Dwain Aldana MDHemoglobin (Bld) [Mass/Vol]8.9 g/dLLow11.9-15.1 [facility] OhioComment on above:Performed By: #### TSHX, PRCAL #### [email or web address] [address] [place] [address] [employer] Machine Tender: Dwain Aldana MDHematocrit (Bld) [Volume fraction]28.7 %Low 36.3-47.1MCity of Hope National Medical CenterComment on above:Performed By: #### HH #### [employer] [address] [place] [address] Will[employer] Machine Tender: Dwain Aldana MDHemoglobin (Bld) [Mass/Vol]8.8 g/dLLow11.9-15.1 [facility] OhioComment on above:Performed By: #### HH #### [employer] [address] [place] [address] [employer] Machine Tender: Dwain Aldana MDNo Panel Informationon 43-52-3410Fxkgr Bank Blood Product Expiration [id number] Secours DePaul Medical Centerood Bank ISBT Product Blood [id number] [facility] Hospitalood Bank Unit Type and Rh PositiveBON TRIHEALTHComponentLeukocyte Reduced Red CellBON TRIHEALTHCrossmatch ResultCOMPATIBLEBON [facility] HEALTHDispense Status Blood BankTRANSFUSEDBON SECCENTERVILLEProduct Code Blood [id number] [facility]SA[facility]ENTER HEALTHTransfusion StatusOK TO TRANSFUSEBON TRIHEALTH Unit Nhtgsmb5EUJ [facility] HEALTHTYPE AND SCREENon 53-62-6823RNE/RhPositive BON SECCENTERVILLEArm Band NumberBE [id number] SECCENTERVILLEBlood Bank Blood Product Expiration [id number] [facility] HEALTHBlood Bank Sample Zgfhmngyeq92/08/2024,2359BON [facility] MORROW HEALTHBlood product unit ID (Dose) [#][id number] [facility]ROW HEALTHBlood product unit ID (Dose) [#] [id number] [facility]ROW HEALTHBlood product unit ID (Dose) [#] [id number] EM[facility] SportsBeepRadha HEALTHUnit Issue Date/[id number] SECRACHEL [employer]ha HEALTHUnit Issue Date/[id number] SECRACHEL [facility] MARY HOSPITALRadha HEALTHUnit Issue Date/[id number] [facility] MARY HOSPITALRadha [facility] MEDICAL CENTERBON EM[facility] MARY HOSPITALRadha [facility] MEDICAL CENTERBasic Metab w/rfx MGon 66-74-4972Xudcm gap [Moles/Vol]4 mmol/LLow9-16[facility] OhioComment on above:Performed By: #### LENNY FOWLER, CDP #### [employer] [address] [place] [address] [employer] Machine Tender: POONAM Lamalcium [Mass/Vol]6.6 mg/dLLow8.6-10.4[facility] OhioComment on above:Performed By: #### LENNY FOWLER, CDP #### [facility] [employer] [address] [place] [address] [employer] Machine Tender: POONAM Lamhloride [Moles/Vol]108 mmol/BYchd22-634IuglyKing'S Daughters Medical Center OhioComment on above:Performed By: #### LENNY FOWLER, CDP #### [facility] [address] [place] [address] Will[employer] Machine Tender: POONAM LamO2 [Moles/Vol]26 mmol/QNqyvtt64-26WpvsbKing'S Daughters Medical Center OhioComment on above:Performed By: #### LENNY FOWLER, CDP #### [facility] [employer] [address] [place] [address] Will[employer] Machine Tender: POONAM Lamreatinine [Mass/Vol]0.4 mg/dLLow0.50-0.90[facility] OhioComment on above:Performed By: #### LENNY FOWLER, CDP #### [place] [address] [employer] Machine Tender: Dwain Aldana MDGFR/1.73 sq M.predicted among non-blacks MDRD (S/P/Bld) [Vol rate/Area]mL/min/{1.73_m2}Normal>60[facility] OhioComment on above:Result Comment: These results are not intended for [...] or following therapy that affects renal tubular secretion.Performed By: #### ALOK FOWLER4, CDP #### [facility] [employer] [address] [place] [address] [employer] Machine Tender: Dwain Aldana MDGlucose [Mass/Vol]83 mg/sEGlzntu75-61ZgkscCity of Hope National Medical CenterComment on above:Performed By: #### LENNY FOWLER, CDP #### [place] [address] [employer] Machine Tender: HEAVEN Lamotassium [Moles/Vol]4.4 mmol/LNormal3.7-5.3 [facility] OhioComment on above:Performed By: #### MALCOLM FT4, CDP #### [facility] [employer] [address] [place] [address] [employer] Machine Tender: MARILU Lamodium [Moles/Vol]138 mmol/IHtrvet589-346IkwupKing'S Daughters Medical Center OhioComment on above:Performed By: #### MALCOLM FT4, CDP #### [employer] [address] [place] [address] Will[employer] Machine Tender: Dwain Aldana MDUrea nitrogen [Mass/Vol]12 mg/dLNormal8-23[facility] OhioComment on above:Performed By: #### BMPX, FT4, CDP #### [employer] [address] [place] [address] [employer] Machine Tender: Dwain Aldana MDBasic Metabolic Panel w/ Reflex to MGon 90-92-3931Hlzhd gap [Moles/Vol]4 mmol/LLow9 - 16 mmol/LBON [facility] [employer] Calcium [Mass/Vol]6.6 mg/dLLow8.6 - 10.4 mg/dLBON COLUSA REGIONAL MEDICAL CENTEROrangeScapeChloride [Moles/Vol]108 mmol/LHigh98 - 107 mmol/LBON COLUSA REGIONAL MEDICAL CENTEROrangeScapeCO2 [Moles/Vol] 26 mmol/L20 - 31 mmol/LBON [facility] GlassesOffCreatinine [Mass/Vol]0.4 mg/dLLow 0.50 - 0.90 mg/dLBON BAN[facility] CAS[facility] GRANDE MEDICAL CENTERRebitEst, Glom Filt Rate- PINFBON COLUSA REGIONAL MEDICAL CENTERKalion [facility]S MEDICAL CENTERComment on above: These results are not intended [...] therapy that affects renal tubular secretion. Glucose [Mass/Vol]83 mg/dL74 - 99 mg/dLBON BANNER CASA GRANDE MEDICAL CENTERSplunk [facility] HOSPITALOrangeScapeInterpretation and review of laboratory resultsAbnormalBON COLUSA REGIONAL MEDICAL CENTEROrangeScapePotassium [Moles/Vol]4.4 mmol/L3.7 - 5.3 mmol/LBON SECRebitSodium [Moles/Vol] 138 mmol/L136 - 145 mmol/LBON BAN[facility] CAS[facility] GRANDE MEDICAL CENTERSplunk [facility] HOSPITALOrangeScapeUrea nitrogen [Mass/Vol]12 mg/dL8 - 23 mg/dLBON COLUSA REGIONAL MEDICAL CENTEROrangeScapeBON TRIHEALTHCBC with Auto Differentialon 05-21-1388Dzxmlyigo (Bld) [#/Vol]0.03 10*3/uLBON [facility] HEALTHBasophils/100 WBC (Bld)0 %0 - 2 %B[facility] HEALTHEosinophils (Bld) [#/Vol]0.09 10*3/uLBON [facility] HEALTHEosinophils/100 WBC (Bld)1 %1 - 4 % [facility] SEC[facility] MEDICAL CENTERErythrocyte distribution width (RBC) [Ratio]17.1 %High 11.8 - 14.4 %BON SECCENTERVILLEHematocrit (Bld) [Volume fraction]19.8 %Low 36.3 - 47.1 %BON SECCENTERVILLEHemoglobin (Bld) [Mass/Vol]6.2 g/dL Critically low11.9 - 15.1 g/dLBON SECOURS [facility] GRANT MEDICAL CENTERImmature granulocytes (Bld) [#/Vol]0.06 10*3/uLBON SECOURS [facility] MEDICAL CENTERImmature granulocytes/100 WBC (Bld)1 %Iiat7PQDINOVA ALEXANDRIA HOSPITAL HEALTHInterpretation and review of laboratory resultsAbnormalBON SECSAVOY MEDICAL CENTER HEALTHLymphocytes/100 WBC (Bld)19 %Low24 - 43 % [facility] SECSAVOY MEDICAL CENTER HEALTHLymphocytes/100 WBC (Bld)1.67 %[facility] MCH (RBC) [Entitic mass]30.7 pg25.2 - 33.5 pgBON SECOURS [facility] GRANT MEDICAL CENTERMCHC (RBC) [Mass/Vol]31.3 g/dL28.4 - 34.8 g/dLBON SECCENTERVILLEMCV (RBC) [Entitic vol]98.0 fL82.6 - 102.9 fLBON SECOURS [facility]ENTER HEALTHMonocytes/100 WBC (Bld)8 %3 - 12 %[facility] HEALTHMonocytes/100 WBC (Bld)0.73 %[facility] SECCENTERVILLENeutrophils/100 WBC (Bld)70 %High36 - 65 %[facility] SECSAVOY MEDICAL CENTER HEALTH Nucleated RBC/100 WBC (Bld) [Ratio]0.0 %0.0 per 100 WBCINOVA FAIR OAKS HOSPITAL Platelet mean volume (Bld) [Entitic vol]10.3 fL8.1 - 13.5 fLINOVA FAIR OAKS HOSPITALPlatelets (Bld) [#/Vol]171 10*3/uLINOVA FAIR OAKS HOSPITALRBC (Bld) [#/Vol]2.02 10*6/uLLow3.95 - 5.11 m/uLINOVA FAIR OAKS HOSPITALRBC (Bld) [#/Vol] ANISOCYTOSIS PRESENTINOVA FAIR OAKS HOSPITALSegmented neutrophils/100 WBC (Bld) 6.10 %BON TRIHEALTHWBC other (Bld) [#/Vol]8.7B[facility]ALTH BON TRIHEALTHCBC with Diffon 88-59-3580Nla. Basophil0.03 k/uLNormal 0.00-0.20[facility] OhioComment on above:Performed By: #### LENNY FOWLER, CDP #### [facility] [employer] [address] [place] [address] [employer] Machine Tender: Paul Lam.Imm.Granulocyte0.06 k/uLNormal0.00-0.30[facility] OhioComment on above:Performed By: #### LENNY FOWLER, CDP #### [facility] [employer] [address] [place] [address] [employer] Machine Tender: Paul Lam.Neutrophil (Seg)6.10 k/uLNormal1.50-8.10 [facility] OhioComment on above:Performed By: #### LENNY FOWLER, CDP #### [employer] [address] [place] [address] [employer] Machine Tender: Dwain Aldana MDBasophils/100 WBC (Bld)0 %Normal0-2MCity of Hope National Medical CenterComment on above:Performed By: #### LENNY FOWLER, CDP #### [email or web address] [address] [place] [address] [employer] Machine Tender: Dwain Aldana MDEosinophils (Bld) [#/Vol]0.09 10*3/uLNormal 0.00-0.44[facility] OhioComment on above:Performed By: #### LENNY FOWLER, CDP #### [facility] [address] [place] [address] Will[employer] Machine Tender: Dwain Aldana MDEosinophils/100 WBC (Bld)1 %Normal1-4[facility] OhioComment on above:Performed By: #### LENNY FOWLER, CDP #### [facility] [address] [place] [address] Will[employer] Machine Tender: Dwain Aldana MDImmature granulocytes/100 WBC (Bld)1 %Fiwx7LviefKing'S Daughters Medical Center OhioComment on above:Performed By: #### LENNY FOWLER, CDP #### [facility] [address] [place] [address] [employer] Machine Tender: Nikole Lammphocytes (Bld) [#/Vol]1.67 10*3/uLNormal 1.10-3.70[facility] OhioComment on above:Performed By: #### LENNY FOWLER, CDP #### [facility] [address] [place] [address] [employer] Machine Tender: Nikole Lammphocytes/100 WBC (Bld)19 %Tvk39-95GwxzcKing'S Daughters Medical Center OhioComment on above:Performed By: #### LENNY FOWLER, CDP #### [facility] [address] [place] [address] [employer] Machine Tender: HONORIO Lamonocytes (Bld) [#/Vol]0.73 10*3/uLNormal 0.10-1.20[facility] OhioComment on above:Performed By: #### LENNY FOWLER, CDP #### [facility] [address] [place] [address] Will[employer] Machine Tender: HONORIO Lamonocytes/100 WBC (Bld)8 %Normal3-12[facility] OhioComment on above:Performed By: #### LENNY FOWLER, CDP #### [facility] [address] [place] [address] [employer] Machine Tender: Dwain Aldana MDNeutrophil (Seg)70 %Lhoi21-81TtdnhKing'S Daughters Medical Center OhioComment on above:Performed By: #### LENNY FOWLER, CDP #### [facility] [address] [place] [address] Will[employer] Machine Tender: Dwain Aldana MDErythrocyte distribution width (RBC) [Ratio]17.1 %High11.8-14.4[facility] OhioComment on above:Performed By: #### LENNY FOWLER, CDP #### [facility] [employer] [address] [place] [address] Willow Machine Tender: Dwain Aldana MDHematocrit (Bld) [Volume fraction]19.8 %Low 36.3-47.1MCity of Hope National Medical CenterComment on above:Performed By: #### LENNY FOWLER, CDP #### [facility] [employer] [address] [place] [address] Willow Machine Tender: Dwain Aldana MDHemoglobin (Bld) [Mass/Vol]6.2 g/dLCritically low11.9-15.1MCity of Hope National Medical CenterComment on above:Performed By: #### ALOK FOWLER4, CDP #### [facility] [employer] [address] [place] [address] Will[employer] Machine Tender: NATALIIA Lam (RBC) [Entitic mass]30.7 poOjownz06.2-33.5 [facility] OhioComment on above:Performed By: #### ALOK FOWLER4, CDP #### [facility] [employer] [address] [place] [address] Will[employer] Machine Tender: Dwain Madoff, MDMCHC (RBC) [Mass/Vol]31.3 g/jYKogjwf77.4-34.8 [facility] OhioComment on above:Performed By: #### MALCOLM FT4, CDP #### [facility] [employer] [address] [place] [address] Willow Machine Tender: HONORIO LamCV (RBC) [Entitic vol]98.0 mQYrerwu21.6-102.9 [facility] OhioComment on above:Performed By: #### MALCOLM FT4, CDP #### [facility] [employer] [address] [place] [address] Willow Machine Tender: VICKIE Lam Automated0.0 per 100 WBCNormal0.0[facility] OhioComment on above:Performed By: #### ALOK FOWLER4, CDP #### [facility] [employer] [address] [place] [address] Willow Machine Tender: Isrrael Lamteleyla mean volume (Bld) [Entitic vol]10.3 fL Normal8.1-13.5[facility] OhioComment on above:Performed By: #### MALCOLM FT4, CDP #### [email or web address] [address] [place] [address] Willow Machine Tender: Isrrael Lamtejeronimo (Bld) [#/Vol]171 10*3/wOUlfcos198-889 [facility] OhioComment on above:Performed By: #### MALCOLM FT4, CDP #### [facility] [employer] [address] [place] [address] Willow Machine Tender: RUBEN LamBC (Bld) [#/Vol]2.02 10*6/uLLow3.95-5.11[facility] OhioComment on above:Performed By: #### MALCOLM FT4, CDP #### [facility] [employer] [address] [place] [address] [employer]ow Machine Tender: VIVEK Lam morphology finding Nom (Bld)ANISOCYTOSIS PRESENTUpper Valley Medical CenterComment on above:Performed By: #### MALCOLM FT4, CDP #### [facility] [address] [place] [address] Willow Machine Tender: ALISSA LamBC (Bld) [#/Vol]8.7 10*3/uLNormal3.5-11.3[facility] Regional Medical CenterComment on above:Performed By: #### MALCOLM FT4, CDP #### [facility] [address] [place] [address] [employer] Machine Tender: Belkis Lamium, Ionicon 15-27-6790Wgaunob [Moles/Vol] 1.07 mmol/LLow1.13-1.33[facility] OhioComment on above: Performed By: #### BMPInder MG, CDP #### [facility] [address] [place] [address] [employer] Machine Tender: Belkis Lamium, Ionizedon 63-83-6317Oineqvl.ionized (Bld) [Moles/Vol]1.07 mmol/LLow1.13 - 1.33 mmol/LBON [facility], Bloodon [id number], BloodSpecimen Description .BLOOD Special Requests Culture NO GROWTH 5 DAYS Report Status FINAL 11/30/2023[facility] CenterComment on above:Performed By: #### BMPX, MG, CDP #### [facility] [address] [place] [id number] [employer] Tender: Eric Lam,Bloodon [id number],BloodSpecimen Description .BLOOD Special Requests Culture NO GROWTH 5 DAYS Report Status FINAL 11/30/2023[facility] CenterComment on above:Performed By: #### BMPX, MG, CDP #### [facility] [facility] [address] [place] [address] Willow Machine Tender: Dwain Aldana, MDCulture, Blood 1on 86-17-7698Baifbtokvjbcm identified Cx Nom (Unsp spec)NO GROWTH 5 DAYSBON [facility] HEALTHService comment (Unsp spec) [Interp][facility] HEALTHSpecimen Description.BLOOD [facility] DAUGHTERSCulture, Blood 2on 11-30-2023 Microorganism identified Cx Nom (Unsp spec)NO GROWTH 5 DAYSBON [facility] HEALTHService comment (Unsp spec) [Interp][facility] HEALTHSpecimen Description.BLOODCHILDREN'S [facility]OS[facility] OF THE K[facility]'S DAUGHTERSGlucose,Whole Bloodon 44-46-7372Xpwsmgk [Mass/Vol]79 mg/uIUinyzf06-141Qxkpd43 Lawson StreetHemoglobin and Hematocriton 34-72-1418Kmvmmjztxs (Bld) [Volume fraction]23.8 %Low36.3 - 47.1 %[facility] HOSPITALHemoglobin (Bld) [Mass/Vol]7.9 g/dLLow11.9 - 15.1 g/dLBON [facility] HEALTHInterpretation and review of laboratory resultsAbnormalCHILDREN'S HOSPITAL OF THE KING'S DAUGHTERSHematocrit (Bld) [Volume fraction]27.5 %Low36.3 - 47.1 %[facility] HOSPITALHemoglobin (Bld) [Mass/Vol]8.6 g/dLLow11.9 - 15.1 g/dLBON [facility]OU[facility]ITALY HEALTHInterpretation and review of laboratory resultsAbnormalCHILDREN'S HOSPITAL OF THE KING'S DAUGHTERSHematocrit (Bld) [Volume fraction]26.2 %Low36.3 - 47.1 %[facility] HEALTHHemoglobin (Bld) [Mass/Vol]8.3 g/dLLow11.9 - 15.1 g/dLBON SECOU[facility]ITALY HEALTHInterpretation and review of laboratory results AbnormalBON [facility] HEALTHHgb/Hcton 11-30-2023 Hematocrit (Bld) [Volume fraction]23.8 %Low36.3-47.1[facility] Mary Regional Medical CenterComment on above:Performed By: #### HH #### [facility] [address] [place] [address] Willow Machine Tender: Dwain Aldana MDHemoglobin (Bld) [Mass/Vol]7.9 g/dLLow11.9-15.1 [facility] OhioComment on above:Performed By: #### HH #### [facility] [address] [place] [address] Willow Machine Tender: Dwain Aldana MDHematocrit (Bld) [Volume fraction]27.5 %Low 36.3-47.1MCity of Hope National Medical CenterComment on above:Performed By: #### BMPX MG, CDP #### [facility] [employer] [address] [place] [address] Willow Machine Tender: Dwain Aldana MDHemoglobin (Bld) [Mass/Vol]8.6 g/dLLow11.9-15.1 [facility] OhioComment on above:Performed By: #### BMPX, MG, CDP #### [facility] [address] [place] [address] Willow Machine Tender: Dwain Aldana MDHematocrit (Bld) [Volume fraction]26.2 %Low 36.3-47.1[facility] Mary Regional Medical CenterComment on above:Performed By: #### HH #### [facility] [address] [place] [address] Willow Machine Tender: Dwain Aldana MDHemoglobin (Bld) [Mass/Vol]8.3 g/dLLow11.9-15.1 [facility] OhioComment on above:Performed By: #### HH #### [facility] [address] [place] [address] Willow Machine Tender: Dwain Aldana MDLactic Acidjessy 17-72-6632Kugdcw Acid,Whole Bl0.6 mmol/LLow0.7-2.1[facility] Regional Medical CenterComment on above:Performed By: #### BMPX, MG, CDP #### [email or web address] [address] [place], [place] [phone] Willow Machine Tender: Dwain Aldana MDLactic Acid, Whole Blood0.6 mmol/LLow0.7 - 2.1 mmol/LBON TRIHEALTHMRSA DNA Probe, Nasalon 38-06-0678SUWP, DNA, Nasal NegativeNEGATIVEBON TRIHEALTHComment on above:NEGATIVE: MRSA DNA not detected by nucleic acid amplification. Results should be used as an adjunct to nosocomial control efforts to identify patients needing enhanced precautions. The test is not intended to identify patients with staphylococcal infections. Results should not be used to guide or monitor treatment for MRSA infections. Specimen Description.NASAL SWABBON [facility] MRSA, DNA, Nasalon 45-12-0095GFDY, DNA, NasalNegativeNormalNEGMerAntelope Valley Hospital Medical CenterComment on above:Result Comment: NEGATIVE: MRSA DNA not detected by nucleic acid amplification. Results should be used as an adjunct to nosocomial control efforts to identify patients needing enhanced precautions. The test is not intended to identify patients with staphylococcal infections. Results should not be used to guide or monitor treatment for MRSA infections. Performed By: #### MRSANO #### [email or web address] [address] [place], [place] [phone] Willow Machine Tender: Tiffany Lam Panel Informationon 76-29-5276Xzuevjuxkysyak and review of laboratory resultsAbnormalBON [facility] FALLSPOC Glucose Fingerstickon 12-66-7992Imqpwhx [Mass/Vol]79 mg/dL65 - 105 mg/dLBON [facility] FALLSPREVIOUS SPECIMENon 91-17-9154SOX TRIHEALTHProcalcitoninon 06-51-4833Uetxrsbvjwggh6.05 ng/mLNormal<0.09MerAntelope Valley Hospital Medical CenterComment on above:Result Comment: Suspected Sepsis: <0.50 ng/mL Low likelihood [...] entered into the Change in Procalcitonin Calculator (www.iqztao-bsd-pjikxlhkyf.LineHop) to determine the patient's Mortality Risk Prognosis In healthy neonates, plasma Procalcitonin (PCT) concentrations increase gradually after , reaching peak values at about 24 hours of age then decrease to normal values below 0.5 ng/mL by 48-72 hours of age.Performed By: #### [facility] #### [employer] [address] [place] [address] Willow Machine Tender: Tamiko Lam Rejectionon 83-56-2041Vzuihy for rejectionUnable to perform testing: Specimen clotted.[facility] Medical CenterComment on above:Performed By: #### HH #### [employer] [address] [place] [address] [phone] Willow Machine Tender: Laurence Lam of sample.[facility] Urbana HospitalComment on above:Performed By: #### HH #### [employer] [address] [place] [address] [phone] Willow Machine Tender: Dwain Aldana MDNew Lincoln HospitalComment on above:Performed By: #### HH #### [employer] [address] [place] [address] Willow Machine Tender: RADHA Lam4, Free 80-30-6241Mmin T4 [Mass/Vol]1.3 ng/dL 0.92 - 1.68 ng/dLBON TRIHEALTHBON SECCENTERVILLEThyroxine, Free on 20-89-5216Psanjusrf, Free1.3 ng/dLNormal0.92-1.68[facility] OhioComment on above:Performed By: #### MG MALCOLM, CDP #### [employer] [address] [place] [address] [phone] Willow Machine Tender: Dwain Aldana MDType + Screenon 34-04-2468Nivv + ScreenSample Expiration 12/02/2023,2359 Arm Band Number [id number] ABO/Rh(D) A POSITIVE Antibody Screen NEGATIVE Unit Number [id number] Blood Component Type Leukocyte Reduced Red Cell Unit Division 00 Status of Unit TRANSFUSED Transfusion Status OK TO TRANSFUSE Crossmatch Result COMPATIBLE Unit Number [id number] Blood Component Type Leukocyte Reduced Red Cell Unit Division 00 Status of Unit TRANSFUSED Transfusion Status OK TO TRANSFUSE Crossmatch Result COMPATIBLE Unit Number [id number] Blood Component Type Leukocyte Reduced Red Cell Unit Division 00 Status of Unit TRANSFUSED Transfusion Status OK TO TRANSFUSE Crossmatch Result COMPATIBLENormalKing'S Daughters Medical Center OhioComment on above:Performed By: #### HH #### [employer] [address] [place] [address] [phone] Willow Machine Tender: Dwain Aldana MDBLOOD BANK SPECIMENon 87-60-4380MYZ TRIHEALTHBasic Metab w/rfx MGon 73-68-6238Eswlg gap [Moles/Vol]9 mmol/LNormal 9-16[facility] OhioComment on above:Performed By: #### MG MALCOLM, CDP #### [employer] [address] [place] [address] Willow Machine Tender: POONAM Lamalcium [Mass/Vol]6.7 mg/dLLow8.6-10.4[facility] OhioComment on above:Performed By: #### MG MALCOLM, CDP #### [employer] [address] [place] [address] [phone] Willow Machine Tender: POONAM Lamhloride [Moles/Vol]103 mmol/ERhmtqn24-748KrfhuKing'S Daughters Medical Center OhioComment on above:Performed By: #### BMPX MG, CDP #### [facility] [address] [place] [address] Willow Machine Tender: Dwain Aldana MDCO2 [Moles/Vol]23 mmol/WVyztfn99-58HaquqKing'S Daughters Medical Center OhioComment on above:Performed By: #### BMPX, MG, CDP #### [facility] [address] [place] [address] Willow Machine Tender: POONAM Lamreatinine [Mass/Vol]0.4 mg/dLLow0.50-0.90[facility] OhioComment on above:Performed By: #### MALCOLM MG, CDP #### [facility] [address] [place] [address] Willow Machine Tender: Dwain Aldana MDGFR/1.73 sq M.predicted among non-blacks MDRD (S/P/Bld) [Vol rate/Area]mL/min/{1.73_m2}Normal>60[facility] OhioComment on above:Result Comment: These results are not intended for [...] or following therapy that affects renal tubular secretion.Performed By: #### BMPX, MG, CDP #### [facility] [address] [place] [address] Willow Machine Tender: Dwain Aldana MDGlucose [Mass/Vol]210 mg/pYHxwp16-73NmyzgCity of Hope National Medical CenterComment on above:Performed By: #### BMPX MG, CDP #### [facility] [address] [place] [address] Willow Machine Tender: HEAVEN Lamotassium [Moles/Vol]3.3 mmol/LLow3.7-5.3Mohiohealth doctors hospitaly [address] [facility] Regional Medical CenterComment on above:Performed By: #### BMPX, MG, CDP #### [facility] [address] [place] [address] Willow Machine Tender: MARILU Lamodium [Moles/Vol]135 mmol/GLqr771-485NeslgKing'S Daughters Medical Center OhioComment on above:Performed By: #### BMPX, MG, CDP #### [facility] [address] [place] [address] Willow Machine Tender: Dwain Aldana MDUrea nitrogen [Mass/Vol]9 mg/dLNormal8-23[facility] OhioComment on above:Performed By: #### BMPX, MG, CDP #### [facility] [address] [place] [address] Willow Machine Tender: Gela Lam Metabolic Panel w/ Reflex to MGon 85-84-9849Tamed gap [Moles/Vol]9 mmol/L9 - 16 mmol/LBON [facility] GlassesOff Calcium [Mass/Vol]6.7 mg/dLLow8.6 - 10.4 mg/dLBON SECOURS [facility] HEALTHChloride [Moles/Vol]103 mmol/L98 - 107 mmol/LBON SEC[facility] HEALTHCO2 [Moles/Vol]23 mmol/L20 - 31 mmol/LBON SECRebitCreatinine [Mass/Vol]0.4 mg/dLLow 0.50 - 0.90 mg/dLBON SEC[facility]RS Accolo HEALTHEst, Glom Filt Rate- PINFBON SECPEACEHEALTH ST. JOHN MEDICAL CENTERKalion [facility] RITA'S MEDICAL CENTERComment on above: These results are not intended [...] therapy that affects renal tubular secretion. Glucose [Mass/Vol]210 mg/hMRrcp93 - 99 mg/dLBON TRI[facility]ALTH Interpretation and review of laboratory resultsAbnormCarilion Roanoke Community Hospital Potassium [Moles/Vol]3.3 mmol/LLow3.7 - 5.3 mmol/LBON TRIHEALTHSodium [Moles/Vol]135 mmol/NLwq194 - 145 mmol/LBON TRIHEALTHUrea nitrogen [Mass/Vol]9 mg/dL8 - 23 mg/dLBON [facility] FALLSCBC with Auto Differentialon 82-30-5403Bjvzhwuxi (Bld) [#/Vol]0.03 10*3/uLBON TRIHEALTHBasophils/100 WBC (Bld)0 %0 - 2 %[facility] Eosinophils (Bld) [#/Vol]0.04 10*3/uLBON TRIHEALTHEosinophils/100 WBC (Bld)0 %Low1 - 4 %[facility] HOSPITALErythrocyte distribution width (RBC) [Ratio]19.0 %High11.8 - 14.4 %[facility] HOSPITALHematocrit (Bld) [Volume fraction]20.7 %Low36.3 - 47.1 %[facility] HOSPITALHemoglobin (Bld) [Mass/Vol]6.2 g/dLCritically low11.9 - 15.1 g/dLBON [facility] Citizens Hospitalmature granulocytes (Bld) [#/Vol]0.07 10*3/uLBON TRIHEALTHImmature granulocytes/100 WBC (Bld)1 %Zuii7QKA TRIHEALTHInterpretation and review of laboratory resultsAbnormalINOVA FAIR OAKS HOSPITALLymphocytes/100 WBC (Bld)7 %Low24 - 43 %[facility] HOSPITALLymphocytes/100 WBC (Bld)0.79 %Low [facility] CENTERH (RBC) [Entitic mass]30.7 pg25.2 - 33.5 pgBON ADAMS COUNTY REGIONAL MEDICAL CENTERHC (RBC) [Mass/Vol]30.0 g/dL28.4 - 34.8 g/dLBON TRIHEALTHMCV (RBC) [Entitic vol]102.5 fL82.6 - 102.9 fLINOVA FAIR OAKS HOSPITAL Monocytes/100 WBC (Bld)4 %3 - 12 %[facility] HOSPITALMonocytes/100 WBC (Bld)0.53 %[facility] HOSPITALNeutrophils/100 WBC (Bld)88 %High36 - 65 %[facility] HOSPITALNucleated RBC/100 WBC (Bld) [Ratio]0.0 %0.0 per 100 WBCINOVA FAIR OAKS HOSPITALPlatelet mean volume (Bld) [Entitic vol]10.8 fL8.1 - 13.5 fL [facility] HOSPITALPlatelets (Bld) [#/Vol]245 10*3/uLBON TRIHEALTHRBC (Bld) [#/Vol]2.02 10*6/uLLow3.95 - 5.11 m/uLINOVA FAIR OAKS HOSPITAL RBC (Bld) [#/Vol]ANISOCYTOSIS PRESENTBON TRIHEALTHSegmented neutrophils/100 WBC (Bld)10.71 %HighINOVA FAIR OAKS HOSPITALWBC other (Bld) [#/Vol]12.2HighINOVA FAIR OAKS HOSPITALBON TRIHEALTHCBC with Diffon 31-12-3372Pdg. Basophil0.03 k/uLNormal0.00-0.20[facility] [place] Comment on above:Performed By: #### MG MALCOLM, CDP #### [employer] [address] [place] [address] Willow Machine Tender: Paul Lam.Imm.Granulocyte0.07 k/uLNormal0.00-0.30[facility] OhioComment on above:Performed By: #### MG MALCOLM, CDP #### [employer] [address] [place], [place] [phone] Willow Machine Tender: Paul Lam.Neutrophil (Seg)10.71 k/uLHigh1.50-8.10[facility] OhioComment on above:Performed By: #### BMPX MG, CDP #### [facility] [address] [place] [address] Willow Machine Tender: Dwain Aldana MDBasophils/100 WBC (Bld)0 %Normal0-2[facility] Regional Medical CenterComment on above:Performed By: #### BMPX MG, CDP #### [facility] [address] [place] [address] Willow Machine Tender: Dwain Aldana MDEosinophils (Bld) [#/Vol]0.04 10*3/uLNormal 0.00-0.44[facility] OhioComment on above:Performed By: #### BMPX MG, CDP #### [facility] [address] [place] [address] Willow Machine Tender: Dwain Aldana MDEosinophils/100 WBC (Bld)0 %Low1-4[facility] OhioComment on above:Performed By: #### MALCOLM MG, CDP #### [facility] [address] [place] [address] Willow Machine Tender: Dwain Aldana MDErythrocyte distribution width (RBC) [Ratio]19.0 %High11.8-14.4[facility] OhioComment on above:Performed By: #### MALCOLM MG, CDP #### [facility] [address] [place] [address] Willow Machine Tender: Dwain Aldana MDHematocrit (Bld) [Volume fraction]20.7 %Low 36.3-47.1[facility] Mary Regional Medical CenterComment on above:Performed By: #### BMPX MG, CDP #### [facility] [address] [place] [address] Willow Machine Tender: Dwain Aldana MDHemoglobin (Bld) [Mass/Vol]6.2 g/dLCritically low11.9-15.1[facility] Medical CenterComment on above:Performed By: #### BMPX, MG, CDP #### [facility] [address] [place] [address] Willow Machine Tender: Pito Lamture granulocytes/100 WBC (Bld)1 %Unci6NqaziKing'S Daughters Medical Center OhioComment on above:Performed By: #### BMPX, MG, CDP #### [facility] [employer] [address] [place] [address] Willow Machine Tender: Dwain Aldana MDLymphocytes (Bld) [#/Vol]0.79 10*3/uLLow 1.10-3.70[facility] OhioComment on above:Performed By: #### BMPX, MG, CDP #### [place] [address] Willow Machine Tender: Nikole Lammphocytes/100 WBC (Bld)7 %Rnv10-94IcbrqKing'S Daughters Medical Center OhioComment on above:Performed By: #### BMPX, MG, CDP #### [facility] [employer] [address] [place] [address] Willow Machine Tender: HONORIO LamCH (RBC) [Entitic mass]30.7 tgGxbgeh95.2-33.5 [facility] OhioComment on above:Performed By: #### BMPX, MG, CDP #### [facility] [employer] [address] [place] [address] Willow Machine Tender: HONORIO LamCHC (RBC) [Mass/Vol]30.0 g/zYQfftbk92.4-34.8 [facility] OhioComment on above:Performed By: #### BMPX, MG, CDP #### [facility] [employer] [address] [place] [address] Willow Machine Tender: HONORIO LamCV (RBC) [Entitic vol]102.5 qJDmqpay17.6-102.9 [facility] OhioComment on above:Performed By: #### BMPX, MG, CDP #### [address] [address] Willow Machine Tender: Dwain Aldana MDMonocytes (Bld) [#/Vol]0.53 10*3/uLNormal 0.10-1.20[facility] OhioComment on above:Performed By: #### BMPX, MG, CDP #### [address] [address] Willow Machine Tender: HONORIO Lamonocytes/100 WBC (Bld)4 %Normal3-12[facility] OhioComment on above:Performed By: #### BMPX, MG, CDP #### [address] [address] Willow Machine Tender: Ale Lamophil (Seg)88 %Iosn46-01FowrbKing'S Daughters Medical Center OhioComment on above:Performed By: #### BMPX, MG, CDP #### [address] [address] Willow Machine Tender: Dwain Aldana MDNRBC Automated0.0 per 100 WBCNormal0.0[facility] OhioComment on above:Performed By: #### BMPX, MG, CDP #### [address] [address] Willow Machine Tender: HEAVEN Lamlatelet mean volume (Bld) [Entitic vol]10.8 fL Normal8.1-13.5[facility] OhioComment on above:Performed By: #### BMPX, MG, CDP #### [address] [address] Willow Machine Tender: Dwain Aldana MDPlatelets (Bld) [#/Vol]245 10*3/oVEogetb370-598 [facility] OhioComment on above:Performed By: #### BMPX, MG, CDP #### [facility] [address] [place] [address] Willow Machine Tender: VIVEK Lam (Bld) [#/Vol]2.02 10*6/uLLow3.95-5.11[facility] OhioComment on above:Performed By: #### BMPX, MG, CDP #### [facility] [address] [place] [address] Willow Machine Tender: VIEVK Lam morphology finding Nom (Bld)ANISOCYTOSIS PRESENTNormalKing'S Daughters Medical Center OhioComment on above:Performed By: #### BMPX, MG, CDP #### [facility] [employer] [address] [place] [address] Willow Machine Tender: LORETA Lam (Bld) [#/Vol]12.2 10*3/uLHigh3.5-11.3MCity of Hope National Medical CenterComment on above:Performed By: #### CARRIX MG, CDP #### [facility] [employer] [address] [place] [address] Willow Machine Tender: BUZZ Lam SINUS WO CONTRASTon 26-92-7205ME SINUS WO CONTRASTEXAMINATION: CT OF THE SINUS WITHOUT CONTRAST 11/29/2023 [...] Signed by: Ion Leon MD 11/29/23 Final resultNormalMerAntelope Valley Hospital Medical CenterCT Sinuses WO contraston 53-62-0831Dqosbev sinusitis involving the left maxillary sinus. Potential remote posttraumatic change of the left inferior orbital wall and correlation is needed. [facility] CONSOLIDATEDEXAMINATION: CT OF THE SINUS WITHOUT CONTRAST 11/29/2023 [...] intracranial contents demonstrate no gross acute abnormality. [facility] Ion Lopez MD - 11/29/2023 EXAMINATION: CT OF THE [...] inferior orbital wall and correlation is needed. [facility] DAUGHTERSRadiology Study observation (narrative)[facility]OSPITALA ABDOMEN PELVIS W WO CONTRASTon 11-29-2023 CTA ABDOMEN PELVIS W WO CONTRASTEXAMINATION: CTA OF THE ABDOMEN AND PELVIS WITH [...] Signed by: Shagufta Echevarria DO 11/29/[address] Mary Regional Medical CenterCTA Abdominal vessels and Pelvis vessels WO and W contrast Mike . No acute findings. Embolization coils in the [...] without evidence of flow-limiting stenosis. [facility] CONSOLIDATEDEXAMINATION: CTA OF THE ABDOMEN AND PELVIS WITH [...] the osseous structures. Spondylosis of the spine. Citizens Medical CenterShagufta chinchilla, DO - 11/29/2023 EXAMINATION: CTA OF THE ABDOMEN [...] its branches without evidence of flow-limiting stenosis. [facility] HOSPITALRadiology Study observation (narrative)[facility] HOSPITALA Abdominal vessels and Pelvis vessels WO and W contrast IVOrdered By: Shagufta Echevarria on 98-09-6449[facility] Work Phone: Hemoglobin and Hematocriton 84-85-4960Xfovcfwhvy (Bld) [Volume fraction]23.5 %Low36.3 - 47.1 %[facility] HOSPITALHemoglobin (Bld) [Mass/Vol]7.8 g/dLLow11.9 - 15.1 g/dLBON TRIHEALTHInterpretation and review of laboratory resultsAbnormalCHILDREN'S HOSPITAL OF THE KING'S DAUGHTERSHematocrit (Bld) [Volume fraction]18.8 %Low36.3 - 47.1 %[facility] HOSPITALHemoglobin (Bld) [Mass/Vol]6.0 g/dLCritically low11.9 - 15.1 g/dLBON TRIHEALTHInterpretation and review of laboratory resultsAbnormalBON [facility]X FALLSHepatic Function Panelon 11-29-2023 Albumin [Mass/Vol]2.1 g/dLLow3.5 - 5.2 g/dLBON [facility] Albumin/Globulin [Mass ratio]2.0 {ratio}1.0 - 2.5BON TRIHEALTHALP [Catalytic activity/Vol]45 U/L35 - 104 U/LBON TRIHEALTHALT [Catalytic activity/Vol]19 U/L10 - 35 U/LBON TRIHEALTHAST [Catalytic activity/Vol]27 U/L10 - 35 U/LBON TRIHEALTHBilirubin [Mass/Vol]mg/dL 0.00 - 1.20 mg/dLBON TRIHEALTHBilirubin.direct [Mass/Vol]mg/dL0.00 - 0.30 mg/dLBON TRIHEALTHBilirubin.indirect [Mass/Vol]Can not be calculated0.0 - 1.0 mg/dLBON TRIHEALTHGlobulin (S) [Mass/Vol]1.4 g/dL [facility]OSPITALInterpretation and review of laboratory resultsAbnormal [facility] HOSPITALProtein [Mass/Vol]3.5 g/dLLow6.6 - 8.7 g/dLBON [facility]OS[facility]ITAL-SI[facility]X FALLSHgb/Hcton 06-88-6614Fwmcpboqfa (Bld) [Volume fraction]23.5 %Low36.3-47.1MCity of Hope National Medical CenterComment on above: Performed By: #### HH #### [facility] [address] [place] [address] Willow Machine Tender: Dwain Aldana MDHemoglobin (Bld) [Mass/Vol]7.8 g/dLLow11.9-15.1 [facility] OhioComment on above:Performed By: #### HH #### [employer] [address] [place] [address] Willow Machine Tender: Dwain Aldana MDHematocrit (Bld) [Volume fraction]18.8 %Low 36.3-47.1[facility] Mary Regional Medical CenterComment on above:Performed By: #### HH #### [facility] [employer] [address] [place] [address] Willow Machine Tender: Dwain Aldana MDHemoglobin (Bld) [Mass/Vol]6.0 g/dLCritically low11.9-15.1MercSharp Mary [facility] Hospital for WomenComment on above:Performed By: #### HH #### [facility] [employer] [address] [place] [address] Willow Machine Tender: Dwain Aldana MDLiver Profileon 82-25-8192Coxgopn [Mass/Vol]2.1 g/dLLow3.5-5.2[facility] Mary Regional Medical CenterComment on above:Performed By: #### BMPX MG, CDP #### [facility] [employer] [address] [place] [address] Willow Machine Tender: Dwain Aldana MDAlbumin/Glob Ratio2.2Uwjqbl7.0-2.5[facility] OhioComment on above:Performed By: #### MALCOLM MG, CDP #### [facility] [employer] [address] [place] [address] Willow Machine Tender: Greg Lamkaline Phos45 U/WGjhdtw32-976DbxlbKing'S Daughters Medical Center OhioComment on above:Performed By: #### BMPX MG, CDP #### [facility] [address] [place] [address] Willow Machine Tender: Dwain Aldana MDALT [Catalytic activity/Vol]19 U/DSnkmft21-80 [facility] OhioComment on above:Performed By: #### BMPX MG, CDP #### [facility] [address] [place] [address] Willow Machine Tender: Dwain Aldana MDAST [Catalytic activity/Vol]27 U/JQkvyvf26-15 [facility] OhioComment on above:Performed By: #### BMPX, MG, CDP #### [facility] [address] [place] [address] Willow Machine Tender: Dwain Aldana MDBilirubin [Mass/Vol]mg/dLNormal0.00-1.20[facility] OhioComment on above:Performed By: #### BMPX, MG, CDP #### [facility] [address] [place] [address] Willow Machine Tender: Dwain Aldana MDBilirubin, IndirectCan not be calculatedNormal 0.0-1.0[facility] OhioComment on above:Performed By: #### BMPX MG, CDP #### [place] [address] Willow Machine Tender: Lily Lamirubin.indirect [Mass/Vol]mg/dLNormal 0.00-0.30[facility] OhioComment on above:Performed By: #### BMPX MG, CDP #### [place] [address] Willow Machine Tender: Dwain Aldana MDGlobulin (S) [Mass/Vol]1.4 g/dLNormalKing'S Daughters Medical Center OhioComment on above:Performed By: #### BMPX, MG, CDP #### [facility] [employer] [address] [place] [address] Willow Machine Tender: HEAVEN Lamrotein [Mass/Vol]3.5 g/dLLow6.6-8.7[facility] OhioComment on above:Performed By: #### BMPX, MG, CDP #### [facility] [employer] [address] [place] [address] Willow Machine Tender: HONORIO LamRSA, DNA, Nasalon 21-71-6552Lxgpesbx Description.NASAL SWABNormalMerAntelope Valley Hospital Medical CenterComment on above: Performed By: #### MRSANO #### [facility] [address] [place], [place] [phone] Willow Machine Tender: Dwainmegan Aldana MDMagnesiumon 35-50-7138Ltqazqxfw [Mass/Vol]1.7 mg/dLNormal1.6-2.4[facility] OhioComment on above:Performed By: #### BMPX, MG, CDP #### [facility] [address] [place], [place] [phone] Willow Machine Tender: Dwain Aldana MDMagnesium [Mass/Vol]1.7 mg/dL1.6 - 2.4 mg/dLBON [facility] FALLSPREVIOUS SPECIMENon 62-77-4538HWV TRIHEALTHProcalcitoninon 13-64-3348Mezqqpehmggdn [Mass/Vol]0.05 ng/mL NINF - 0.09 ng/mLINOVA FAIR OAKS HOSPITALComment on above: Suspected Sepsis: <0.50 ng/mL Low likelihood of sepsis. 0.50-2.00 ng/mL Increased likelihood of sepsis. Antibiotics encouraged. >2.00 ng/mL High risk of sepsis/shock. Antibiotics strongly encouraged. Suspected Lower Resp Tract Infections: <0.24 ng/mL Low likelihood of bacterial infection. >0.24 ng/mL Increased likelihood of bacterial infection. Antibiotics encouraged. With successful antibiotic therapy, PCT levels should decrease rapidly. (Half- life of 24 to 36 hours.) Procalcitonin values from samples collected within the first 6 hours of systemic infection may still be low. Retesting may be indicated. Values from day 1 and day 4 can be entered into the Change in Procalcitonin Calculator ([email or web address]) to determine the patient's Mortality Risk Prognosis In healthy neonates, plasma Procalcitonin (PCT) concentrations increase gradually after , reaching peak values at about 24 hours of age then decrease to normal values below 0.5 ng/mL by 48-72 hours of age. BON TRIHEALTHSpecimen Rejectionon [id number] for rejection Unable to perform testing: Specimen quantity not sufficient.NormalMercy Wapato Medical CenterComment on above:Performed By: #### TSHX, PRCAL #### [email or web address] [address] [place] [address] Willow Machine Tender: Laurence Lam of sample.BLOODNormalKing'S Daughters Medical Center OhioComment on above:Performed By: #### TSHX, PRCAL #### [facility] [employer] [address] [place] [address] Willow Machine Tender: José Miguel Lam orderedHHNormalKing'S Daughters Medical Center OhioComment on above:Performed By: #### TSHX, PRCAL #### [facility] [employer] [address] [place] [address] Willow Machine Tender: BRIGIDO Lam w/reflex to FT4on 32-38-4480Nihgkvs Stim. Horm.9.13 uIU/mLHigh0.27-4.20[facility] OhioComment on above: Performed By: #### TSHX, PRCAL #### [address] [address] Willow Machine Tender: JACK Lam with Reflexon 21-64-2367Cbedxkhlpbuvxw and review of laboratory resultsAbnormalINOVA FAIR OAKS HOSPITALTS Qn9.13 m[IU]/L HighBON SELECT SPECIALTY HOSPITAL-SIOUX FALLSBasic Metab w/rfx MGon 88-06-9622Llshd gap [Moles/Vol]9 mmol/LNormal9-16[facility] OhioComment on above:Performed By: #### TSHX, PRCAL #### [facility] [employer] [address] [place] [address] Willow Machine Tender: POONAM Lamalcium [Mass/Vol]6.4 mg/dLLow8.6-10.4[facility] OhioComment on above:Performed By: #### TSHX, PRCAL #### [email or web address] [address] [place] [address] Willow Machine Tender: POONAM Lamhloride [Moles/Vol]105 mmol/SCehvtd80-798AjybcKing'S Daughters Medical Center OhioComment on above:Performed By: #### OLINDA PRCAL #### [facility] [address] [place] [address] Willow Machine Tender: Dwain Aldana MDCO2 [Moles/Vol]21 mmol/IBthwvk91-24CuviqKing'S Daughters Medical Center OhioComment on above:Performed By: #### TSHInder PRCAL #### [address] [address] Willow Machine Tender: POONAM Lamreatinine [Mass/Vol]0.3 mg/dLLow0.50-0.90King[facility] Center OhioComment on above:Performed By: #### OLINDA PRCAL #### [address] [address] Willow Machine Tender: Dwain Aldana MDGFR/1.73 sq M.predicted among non-blacks MDRD (S/P/Bld) [Vol rate/Area]mL/min/{1.73_m2}Normal>60[facility] OhioComment on above:Result Comment: These results are not intended for [...] or following therapy that affects renal tubular secretion.Performed By: #### OLINDA PRCAL #### [facility] [employer] [address] [place] [address] Willow Machine Tender: Dwain Aldana MDGlucose [Mass/Vol]88 mg/bKZlkbso06-77AmxycCity of Hope National Medical CenterComment on above:Performed By: #### OLINDA PRCAL #### [place] [address] [place] [address] Willow Machine Tender: HEAVEN Lamotassium [Moles/Vol]3.7 mmol/LNormal3.7-5.3 [facility] OhioComment on above:Performed By: #### TSHX, PRCAL #### [facility] [address] [place] [address] Willow Machine Tender: MARILU Lamodium [Moles/Vol]135 mmol/VUoc293-297KqxhaKing'S Daughters Medical Center OhioComment on above:Performed By: #### TSHX, PRCAL #### [facility] [address] [place] [address] Willow Machine Tender: Dwain Aldana MDUrea nitrogen [Mass/Vol]10 mg/dLNormal8-23[facility] OhioComment on above:Performed By: #### TSHX, PRCAL #### [email or web address] [address] [place] [address] Willow Machine Tender: Dwain Aldana MDBameadowview regional medical center Metabolic Panel w/ Reflex to MGon 61-69-2629Lqgyv gap [Moles/Vol]9 mmol/L9 - 16 mmol/LBON [facility] [employer] Calcium [Mass/Vol]6.4 mg/dLLow8.6 - 10.4 mg/dLBON [facility] SportsBeep HEALTHChloride [Moles/Vol]105 mmol/L98 - 107 mmol/LBON SECBone Therapeutics HEALTHCO2 [Moles/Vol]21 mmol/L20 - 31 mmol/LBON SECEnGeneIC Ambient DevicesCreatinine [Mass/Vol]0.3 mg/dLLow 0.50 - 0.90 mg/dLBON SECBone Therapeutics HEALTHEst, Glom Filt Rate- PINFBON TRIHEALTHComment on above: These results are not intended [...] therapy that affects renal tubular secretion. Glucose [Mass/Vol]88 mg/dL74 - 99 mg/dLBON TRIHEALTHInterpretation and review of laboratory resultsAbnormalBON TRIHEALTHPotassium [Moles/Vol]3.7 mmol/L3.7 - 5.3 mmol/LBON TRIHEALTHSodium [Moles/Vol] 135 mmol/FDsr992 - 145 mmol/LBON TRIHEALTHUrea nitrogen [Mass/Vol]10 mg/dL8 - 23 mg/dLBON SELECT SPECIALTY HOSPITAL-SIOUX FALLSHgb/Hcton 15-20-5049Nsgvfmraid (Bld) [Volume fraction]24.0 %Low36.3-47.1MCity of Hope National Medical CenterComment on above:Performed By: #### HH #### [facility] [facility] [place], [place] [phone] Willow Machine Tender: Dwain Aldana MDHemoglobin (Bld) [Mass/Vol]7.5 g/dLLow11.9-15.1 [facility] OhioComment on above:Performed By: #### HH #### [employer] [address] [place], [place] [phone] Willow Machine Tender: Dwain Aldana MDIR EMBOLIZATION HEMORRHAGEon 91-03-7675Rrixgmri extravasation via truncated duodenal side-branch GDA with successful coil embolization, as above. [facility] Jorge Marley MD - 11/28/2023 PROCEDURE: IR EMBOLIZATION VASCULAR ANY HEMORRHAGE 11/27/2023 HISTORY: ORDERING SYSTEM PROVIDED HISTORY: Embolization of GDA/GI bleed TECHNOLOGIST PROVIDED HISTORY: Embolization of GDA/GI bleed CONTRAST: Isovue 370-110 mL SEDATION: Fentanyl 50 mcg IV for discomfort. Medications were provided and recorded by Radiology nurses. FLUOROSCOPY DOSE AND TYPE: Fluoroscopy time-15.7 minutes. Radiation Exposure Index: DAP cGy*m2, [address] DESCRIPTION OF PROCEDURE: Arteries interrogated: Celiac, GDA, [...] for a 0.035 inch wire and 5 Panamanian introducer sheath. Randal 5 Panamanian x 65 cm catheter was introduced and the celiac artery catheterize; hand celiac angiography was performed. A 0.035 inch glidewire was manipulated into the distal hepatic arteries, catheter exchanged for a 5 Panamanian Cobra glide catheter which was manipulated into the origin GDA. Digital angiography was then performed. [place] delivery microcatheter 45 degree tip was then [...] removed. Subsequent hand injection via the 5 Panamanian catheter the proper hepatic was performed. The guide catheter was removed, and the Randal catheter reinserted. Celiac and SMA digital angiography were then performed. The Randal catheter was removed. Hand digital angiography right iliofemoral vessels was performed at the groin. The right groin was re-prepped, and a 5 Panamanian Vascade closure device was deployed right TOBACCO SPRAYER. The patient tolerated procedure well and there [...] or site of bleeding identified. Normal right TOBACCO SPRAYER entry site pre closure device placement. 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 [facility] Tactonic TechnologiesIR EMBOLIZATION HEMORRHAGEOrdered By: Jorge Russo on 99-25-2159WGQDOMINION HOSPITAL [employer] Work Phone: no Panel Informationon 44-39-0395Lzqno Bank Blood Product Expiration [id number] SECRebitBlood Bank ISBT Product Blood Deru4811EDV SECSplunk [facility]ARY HOSPITALOrangeScapeBlood Bank Unit Type and Rh PositiveBON COLUSA REGIONAL MEDICAL CENTEROrangeScapeComponentLeukocyte Reduced Red CellBON SECOURS MARYVIEW MEDICAL CENTEROrangeScapeCrossmatch ResultCOMPATIBLEBON SECOURS MARYVIEW MEDICAL CENTERKalion [facility]'S MEDICAL CENTERDispense Status Blood BankTRANSFUSEDBCENTRA BEDFORD MEMORIAL HOSPITALKalion [facility]S MEDICAL CENTERProduct Code Blood [id number] SECSplunk [facility] MARY HOSPITALKalion HEALTHTransfusion StatusOK TO TRANSFUSEINOVA FAIR OAKS HOSPITAL Unit Yheaxba0OBG SECSplunk [facility] MARY HOSPITALKalion HEALTHTYPE AND SCREENon 04-35-4843TRL/RhPositive WESSON WOMEN'S HOSPITALSplunk [facility] HOSPITALOrangeScapeArm Band [id number] SECSplunk [facility] HOSPITALOrangeScapeBlood Bank Blood Product Expiration [id number] SECRebitBlood Bank Sample Kclnnfdxgu21/04/2024,2359BON SECEnGeneICY HEALTHBlood product unit ID (Dose) [#][id number] SECEnGeneICY HEALTHBlood product unit ID (Dose) [#] [id number] SECSplunk MERCY HEALTHBlood product unit ID (Dose) [#] [id number] SECEnGeneICY HEALTHUnit Issue Date/[id number] SECEnGeneICY HEALTHUnit Issue Date/[id number] SECEnGeneICY HEALTHUnit Issue Date/[id number] VIRGINIA REGIONAL MEDICAL CENTERSplunk [facility] MARY HOSPITALKalion HEALTHType + Screenon 62-65-7170Isko + ScreenSample Expiration 11/28/2023,2359 Arm Band Number [id number] ABO/Rh(D) A POSITIVE Antibody Screen NEGATIVE Unit Number [id number] Blood Component Type Leukocyte Reduced Red Cell Unit Division 00 Status of Unit TRANSFUSED Transfusion Status OK TO TRANSFUSE Crossmatch Result COMPATIBLE Unit Number [id number] Blood Component Type Leukocyte Reduced Red Cell Unit Division 00 Status of Unit TRANSFUSED Transfusion Status OK TO TRANSFUSE Crossmatch Result COMPATIBLE Unit Number [id number] Blood Component Type Leukocyte Reduced Red Cell Unit Division 00 Status of Unit TRANSFUSED Transfusion Status OK TO TRANSFUSE Crossmatch Result COMPATIBLENormalKing'S Daughters Medical Center OhioComment on above:Performed By: #### HH #### [place] [address] Willow Machine Tender: Cassie Lam Metab w/rfx MGon 24-16-1234Hgbdl gap [Moles/Vol]7 mmol/LLow9-16[facility] OhioComment on above: Performed By: #### BMPX MG, CDP #### [facility] [employer] [address] [place] [address] Willow Machine Tender: POONAM Lamalcium [Mass/Vol]6.3 mg/dLLow8.6-10.4[facility] OhioComment on above:Performed By: #### BMPX, MG, CDP #### [facility] [employer] [address] [place] [address] Willow Machine Tender: Dwain Aldana MDChloride [Moles/Vol]105 mmol/FYoldle96-262AyirgKing'S Daughters Medical Center OhioComment on above:Performed By: #### BMPX, MG, CDP #### [facility] [employer] [address] [place] [address] Willow Machine Tender: Dwain Aldana MDCO2 [Moles/Vol]22 mmol/JHbhxiz24-23RezosKing'S Daughters Medical Center OhioComment on above:Performed By: #### BMPX, MG, CDP #### [facility] [employer] [address] [place] [address] Willow Machine Tender: Dwain Aldana MDCreatinine [Mass/Vol]0.4 mg/dLLow0.50-0.90[facility] OhioComment on above:Performed By: #### BMPX, MG, CDP #### [facility] [employer] [address] [place] [address] Willow Machine Tender: Dwain Aldana MDGFR/1.73 sq M.predicted among non-blacks MDRD (S/P/Bld) [Vol rate/Area]mL/min/{1.73_m2}Normal>60[facility] OhioComment on above:Result Comment: These results are not intended for [...] or following therapy that affects renal tubular secretion.Performed By: #### BMPX, MG, CDP #### [facility] [employer] [address] [place] [address] Willow Machine Tender: Dwain Aldana MDGlucose [Mass/Vol]83 mg/fMMxtkfi26-06IppkuCity of Hope National Medical CenterComment on above:Performed By: #### BMPX, MG, CDP #### [email or web address] [address] [place] [address] Willow Machine Tender: HEAVEN Lamotassium [Moles/Vol]3.4 mmol/LLow3.7-5.3MCity of Hope National Medical CenterComment on above:Performed By: #### BMPX, MG, CDP #### [facility] [employer] [address] [place] [address] Willow Machine Tender: Dwain Aldana MDSodium [Moles/Vol]134 mmol/IBku884-499AhoqbKing'S Daughters Medical Center OhioComment on above:Performed By: #### BMPX, MG, CDP #### [facility] [employer] [address] [place] [address] Willow Machine Tender: Dwain Aldana MDUrea nitrogen [Mass/Vol]7 mg/dLLow8-23[facility] OhioComment on above:Performed By: #### BMPX, MG, CDP #### [facility] [address] [place] [address] Willow Machine Tender: Dwain Aldana MDNatchaug Hospital Metabolic Panel w/ Reflex to MGon 84-21-7579Hrnql gap [Moles/Vol]7 mmol/LLow9 - 16 mmol/LBON [facility] SportsBeep [employer] Devices Calcium [Mass/Vol]6.3 mg/dLLow8.6 - 10.4 mg/dLBON [facility] Accolo [facility] RITA'S MEDICAL CENTERChloride [Moles/Vol]105 mmol/L98 - 107 mmol/LBON [facility] GlassesOffCO2 [Moles/Vol]22 mmol/L20 - 31 mmol/LBON [facility] Accolo [facility]'S MEDICAL CENTERCreatinine [Mass/Vol]0.4 mg/dLLow 0.50 - 0.90 mg/dLBON [facility] GlassesOffEst, Glom Filt Rate- PINFBON TRIHEALTHComment on above: These results are not intended [...] therapy that affects renal tubular secretion. Glucose [Mass/Vol]83 mg/dL74 - 99 mg/dLBON B[facility] CAS[facility] GRANDE MEDICAL CENTERRebitInterpretation and review of laboratory resultsAbnormalBON [facility] SportsBeepGUERNSEY MEMORIAL HOSPITALPotassium [Moles/Vol]3.4 mmol/LLow3.7 - 5.3 mmol/LBON [facility] Accolo [facility] R[facility]'S MEDICAL CENTERSodium [Moles/Vol]134 mmol/RJvq999 - 145 mmol/LBON [facility] GlassesOffUrea nitrogen [Mass/Vol]7 mg/dLLow8 - 23 mg/dLBON [facility] Hemoglobin and Hematocriton 00-46-7325Xyzxzpkwzr (Bld) [Volume fraction]17.9 % Low36.3 - 47.1 %BON TRIHEALTHHemoglobin (Bld) [Mass/Vol]5.7 g/dL Critically low11.9 - 15.1 g/dLBON TRIHEALTHInterpretation and review of laboratory resultsAbnormBath Community Hospital Hematocrit (Bld) [Volume fraction]18.0 %Low36.3 - 47.1 %[facility] Hemoglobin (Bld) [Mass/Vol]5.9 g/dLCritically low11.9 - 15.1 g/dLBON TRIHEALTHInterpretation and review of laboratory resultsAbnormBath Community HospitalHematocrit (Bld) [Volume fraction]23.0 %Low 36.3 - 47.1 %INOVA FAIR OAKS HOSPITALHemoglobin (Bld) [Mass/Vol]7.2 g/dLLow11.9 - 15.1 g/dLBON TRIHEALTHInterpretation and review of laboratory resultsAbnormBath Community HospitalHematocrit (Bld) [Volume fraction]22.0 %Low36.3 - 47.1 %BON TRIHEALTHHemoglobin (Bld) [Mass/Vol]7.2 g/dLLow11.9 - 15.1 g/dLBON TRIHEALTHInterpretation and review of laboratory resultsAbnoBlack Hills Rehabilitation HospitalHgb/Hcton 49-90-3040Rqqnprtqls (Bld) [Volume fraction]17.9 %Low36.3-47.1 [facility] OhioComment on above:Performed By: #### BMPX MG, CDP #### [employer] [facility] [address] [place] [address] Willow Machine Tender: Dwain Aldana MDHemoglobin (Bld) [Mass/Vol]5.7 g/dLCritically low11.9-15.1MCity of Hope National Medical CenterComment on above:Performed By: #### BMPX, MG, CDP #### [facility] [address] [place], [place] [phone] Willow Machine Tender: Dwain Aldana MDHematocrit (Bld) [Volume fraction]18.0 %Low 36.3-47.1[facility] Mary Regional Medical CenterComment on above:Performed By: #### HH #### [facility] [address] [place] [address] Willow Machine Tender: Dwain Aldana MDHemoglobin (Bld) [Mass/Vol]5.9 g/dLCritically low11.9-15.1[facility] Mary Regional Medical CenterComment on above:Performed By: #### HH #### [facility] [address] [place] [address] Willow Machine Tender: Dwain Aldana MDHematocrit (Bld) [Volume fraction]23.0 %Low 36.3-47.1[facility] Mary Regional Medical CenterComment on above:Performed By: #### HH #### [address] [address] Willow Machine Tender: Dwain Aldana MDHemoglobin (Bld) [Mass/Vol]7.2 g/dLLow11.9-15.1 [facility] OhioComment on above:Performed By: #### HH #### [facility] [employer] [address] [place] [address] Willow Machine Tender: Dwain Aldana MDHematocrit (Bld) [Volume fraction]22.0 %Low 36.3-47.1[facility] Mary Regional Medical CenterComment on above:Performed By: #### HH #### [facility] [employer] [address] [place] [address] Willow Machine Tender: Dwain Aldana MDHemoglobin (Bld) [Mass/Vol]7.2 g/dLLow11.9-15.1 [facility] OhioComment on above:Performed By: #### HH #### [facility] [address] [place] [address] Willow Machine Tender: Dwain Aldana MDHematocrit (Bld) [Volume fraction]24.3 %Low 36.3-47.1[facility] Mary Regional Medical CenterComment on above:Performed By: #### HH #### [facility] [address] [place], [place] [phone] Willow Machine Tender: Dwain Aldana MDHemoglobin (Bld) [Mass/Vol]7.7 g/dLLow11.9-15.1 [facility] OhioComment on above:Performed By: #### HH #### [facility] [address] [place] [phone] Willow Machine Tender: Dwain Aldana MDMagnesiumon 93-74-7662Zzdwpylzb [Mass/Vol]1.9 mg/dLNormal1.6-2.4[facility] OhioComment on above:Performed By: #### BMPX, MG, CDP #### [facility] [employer] [address] [place] [phone] Willow Machine Tender: Dwain Aldana MDMagnesium [Mass/Vol]1.9 mg/dL1.6 - 2.4 mg/dLBON SELECT SPECIALTY [facility]ITAL-SI[facility] FALLSNo Panel Informationon 11-27-2023 Radiology Study observation (narrative)BON TRIHEALTHPortable XR Chest AP single viewon 68-10-7766Wozve mid and lower lung consolidation consistent with pneumonia. Trace left basilar effusion. [facility] CONSOLIDATEDEXAMINATION: ONE XRAY VIEW OF THE CHEST 11/27/2023 [...] unremarkable. The extrathoracic soft tissues are unremarkable. PN Ion Arvizu MD - 11/27/2023 EXAMINATION: ONE XRAY VIEW [...] with pneumonia. Trace left basilar effusion. [facility] GlassesOffPortable XR Chest AP single viewOrdered By: Ion Leon on 55-05-4125SGW [facility] GlassesOff Work Phone: xr CHEST PORTABLEon 73-66-9359RH CHEST PORTABLE EXAMINATION: ONE XRAY VIEW OF [...] Signed by: Ion Leon MD 11/27/23 Final resultNormalKing'S Daughters Medical Center OhioBasic Metab w/rfx MGon 96-52-8226Maxgr gap [Moles/Vol]11 mmol/LNormal9-16[facility] OhioComment on above:Performed By: #### MG MALCOLM CDP #### [employer] [address] [place] [address] Willow Machine Tender: POONAM Lamalcium [Mass/Vol]6.3 mg/dLLow8.6-10.4[facility] OhioComment on above:Performed By: #### MG MALCOLM, CDP #### [facility] [address] [place] [phone] Willow Machine Tender: POONAM Lamhloride [Moles/Vol]112 mmol/RWcwo92-690FulewKing'S Daughters Medical Center OhioComment on above:Performed By: #### BMPX, MG, CDP #### [facility] [address] [place] [address] Willow Machine Tender: POONAM LamO2 [Moles/Vol]17 mmol/PZek25-36AwmthKing'S Daughters Medical Center OhioComment on above:Performed By: #### BMPX, MG, CDP #### [facility] [address] [place] [address] Willow Machine Tender: POONAM Lamreatinine [Mass/Vol]0.3 mg/dLLow0.50-0.90[facility] OhioComment on above:Performed By: #### BMPX, MG, CDP #### [facility] [address] [place] [address] Willow Machine Tender: Dwain Aldana MDGFR/1.73 sq M.predicted among non-blacks MDRD (S/P/Bld) [Vol rate/Area]mL/min/{1.73_m2}Normal>60[facility] OhioComment on above:Result Comment: These results are not intended for [...] or following therapy that affects renal tubular secretion.Performed By: #### BMPX, MG, CDP #### [facility] [address] [place] [address] Willow Machine Tender: Dwain Aldana MDGlucose [Mass/Vol]82 mg/uLNsjghz66-94QhcgnCity of Hope National Medical CenterComment on above:Performed By: #### BMPX, MG, CDP #### [facility] [address] [place] [address] Willow Machine Tender: Dwain Madoff, MDPotassium [Moles/Vol]3.4 mmol/LLow3.7-5.3[facility] Mary Regional Medical CenterComment on above:Performed By: #### BMPX, MG, CDP #### [facility] [address] [place] [address] Willow Machine Tender: MARILU Lamodium [Moles/Vol]140 mmol/TTskkbc915-878UbwwfKing'S Daughters Medical Center OhioComment on above:Performed By: #### BMPX, MG, CDP #### [facility] [address] [place] [address] Willow Machine Tender: Dwain Aldana MDUrea nitrogen [Mass/Vol]9 mg/dLNormal8-23[facility] OhioComment on above:Performed By: #### BMPX, MG, CDP #### [facility] [address] [place] [address] Willow Machine Tender: Rocky Lammeadowview regional medical center Metabolic Panel w/ Reflex to MGon 76-39-3337Gaoza gap [Moles/Vol]11 mmol/L9 - 16 mmol/LBON SECRebit Calcium [Mass/Vol]6.3 mg/dLLow8.6 - 10.4 mg/dLBON SECBone Therapeutics HEALTHChloride [Moles/Vol]112 mmol/LHigh98 - 107 mmol/LBON SECRebitCO2 [Moles/Vol] 17 mmol/LLow20 - 31 mmol/LBON SECRebitCreatinine [Mass/Vol]0.3 mg/dL Low0.50 - 0.90 mg/dLBON SECBone Therapeutics HEALTHEst, Glom Filt Rate- PINFBON TRIHEALTHComment on above: These results are not intended [...] therapy that affects renal tubular secretion. Glucose [Mass/Vol]82 mg/dL74 - 99 mg/dLBON TRIHEALTHInterpretation and review of laboratory resultsAbnormCarilion Roanoke Community HospitalPotassium [Moles/Vol]3.4 mmol/LLow3.7 - 5.3 mmol/LBON TRIHEALTHSodium [Moles/Vol]140 mmol/L136 - 145 mmol/LBON TRIHEALTHUrea nitrogen [Mass/Vol]9 mg/dL8 - 23 mg/dLBON [facility] Hemoglobin and Hematocriton 76-53-1882Rdeuraalmv (Bld) [Volume fraction]24.3 % Low36.3 - 47.1 %BON TRIHEALTHHemoglobin (Bld) [Mass/Vol]7.7 g/dLLow 11.9 - 15.1 g/dLBON [facility] HEALTHInterpretation and review of laboratory resultsAbnormBath Community HospitalHematocrit (Bld) [Volume fraction]24.6 %Low36.3 - 47.1 %BON TRIHEALTHHemoglobin (Bld) [Mass/Vol]8.1 g/dLLow11.9 - 15.1 g/dLBON [facility] HEALTHInterpretation and review of laboratory resultsAbnormBath Community HospitalHematocrit (Bld) [Volume fraction]26.7 %Low36.3 - 47.1 %BON TRIHEALTHHemoglobin (Bld) [Mass/Vol]8.6 g/dLLow11.9 - 15.1 g/dLBON [facility] HEALTHInterpretation and review of laboratory resultsAbnormalCHILDREN'S HOSPITAL OF THE KING'S DAUGHTERSHematocrit (Bld) [Volume fraction]26.3 %Low36.3 - 47.1 %[facility] HEALTHHemoglobin (Bld) [Mass/Vol]8.1 g/dLLow11.9 - 15.1 g/dLBON [facility] HEALTHInterpretation and review of laboratory results AbnormalCHILDREN'S HOSPITAL OF THE KING'S DAUGHTERSHgb/Hcton 11-26-2023 Hematocrit (Bld) [Volume fraction]24.6 %Low36.3-47.1[facility] Regional Medical CenterComment on above:Performed By: #### HH #### [facility] [address] [place] [address] Willow Machine Tender: Dwain Aldana MDHemoglobin (Bld) [Mass/Vol]8.1 g/dLLow11.9-15.1 [facility] OhioComment on above:Performed By: #### HH #### [facility] [address] [place] [phone] Willow Machine Tender: Dwain Aldana MDHematocrit (Bld) [Volume fraction]26.7 %Low 36.3-47.1MCity of Hope National Medical CenterComment on above:Performed By: #### TSHX, PRCAL #### [facility] [address] [place] [address] Willow Machine Tender: Dwain Aldana MDHemoglobin (Bld) [Mass/Vol]8.6 g/dLLow11.9-15.1 [facility] OhioComment on above:Performed By: #### TSHX, PRCAL #### [facility] [address] [place] [address]27 Willow Machine Tender: Dwain Aldana MDHematocrit (Bld) [Volume fraction]26.3 %Low 36.3-47.1MCity of Hope National Medical CenterComment on above:Performed By: #### BMPX, MG, CDP #### [facility] [address] [place] [address] Willow Machine Tender: Dwain Aldana MDHemoglobin (Bld) [Mass/Vol]8.1 g/dLLow11.9-15.1 [facility] OhioComment on above:Performed By: #### BMPX, MG, CDP #### [facility] [address] [place] [address] Willow Machine Tender: Ashley Lamatocrit (Bld) [Volume fraction]24.6 %Low 36.3-47.1MCity of Hope National Medical CenterComment on above:Performed By: #### MG MALCOLM, CDP #### [facility] [address] [place] [address] [phone] Willow Machine Tender: Dwain Aldana MDHemoglobin (Bld) [Mass/Vol]8.5 g/dLLow11.9-15.1 [facility] OhioComment on above:Performed By: #### MG MALCOLM, CDP #### [facility] [address] [place] [address] [phone] Willow Machine Tender: Faye Lamgnesiumon 69-67-0712Ngqqgjgch [Mass/Vol]1.5 mg/dLLow1.6-2.4[facility] OhioComment on above:Performed By: #### MG MALCOLM, CDP #### [facility] [address] [place] [address] [phone] Willow Machine Tender: Dwain Aldana MDInterpretation and review of laboratory results [facility] HospitalMagnesium [Mass/Vol]1.5 mg/dLLow1.6 - 2.4 mg/dL [facility] K[facility]'S DAUGHTERSAPTTucson Va Medical Center 91-38-4907uUBB Coag (Bld) [Time]25.5 vOnjdnf65.0-36.5[facility] OhioComment on above: Result Comment: IV Heparin Therapy Range: 66.0-92.0 secPerformed By: #### MG MALCOLM, CDP #### [facility] [address] [place] [address] [phone] Willow Machine Tender: Dwain Aldana MDaPTShaquille Coag (Bld) [Time]25.5 sBON TRIHEALTHCommckenzie memorial hospital on above: IV Heparin Therapy Range: 66.0-92.0 sec BLOOD BANK SPECIMENon [id number] TRIHEALTHBasic Metab w/rfx MGon 26-15-0254Bsmis gap [Moles/Vol]7 mmol/LLow9-16[facility] [place] Comment on above:Performed By: #### BMPX, MG, CDP #### [facility] [address] [place] [address] 8[address]60 Willow Machine Tender: POONAM Lamalcium [Mass/Vol]6.6 mg/dLLow8.6-10.4[facility] OhioComment on above:Performed By: #### CARRIX, MG, CDP #### [facility] [address] [place] [address] Willow Machine Tender: POONAM Lamhloride [Moles/Vol]108 mmol/VFjul79-115WytwgKing'S Daughters Medical Center OhioComment on above:Performed By: #### BMPX MG, CDP #### [facility] [employer] [address] [place] [address] Willow Machine Tender: POONAM LamO2 [Moles/Vol]23 mmol/QFawkim57-29NxfgzKing'S Daughters Medical Center OhioComment on above:Performed By: #### MALCOLM MG, CDP #### [facility] [address] [place] [address] 52012 Willow Machine Tender: POONAM Lamreatinine [Mass/Vol]0.4 mg/dLLow0.50-0.90[facility] OhioComment on above:Performed By: #### MALCOLM MG, CDP #### [email or web address] [address] [place] [address] Willow Machine Tender: Dwain Aldana MDGFR/1.73 sq M.predicted among non-blacks MDRD (S/P/Bld) [Vol rate/Area]mL/min/{1.73_m2}Normal>60[facility] OhioComment on above:Result Comment: These results are not intended for [...] or following therapy that affects renal tubular secretion.Performed By: #### MG MALCOLM, CDP #### [facility] [address] [place] [address] Willow Machine Tender: Dwain Aldana MDGlucose [Mass/Vol]81 mg/mQYtzldw11-31ZgxcyCity of Hope National Medical CenterComment on above:Performed By: #### MALCOLM MG, CDP #### [facility] [address] [place] [address] Willow Machine Tender: HEAVEN Lamotassium [Moles/Vol]3.6 mmol/LLow3.7-5.3MCity of Hope National Medical CenterComment on above:Performed By: #### MALCOLM MG, CDP #### [employer] [address] [place] [address] Willow Machine Tender: MARILU Lamodium [Moles/Vol]138 mmol/VXsswvi666-472XcwwjKing'S Daughters Medical Center OhioComment on above:Performed By: #### MG MALCOLM, CDP #### [email or web address] [address] [place] [address] Willow Machine Tender: Dwain Aldana MDUrea nitrogen [Mass/Vol]13 mg/dLNormal8-23[facility] OhioComment on above:Performed By: #### MALCOLM MG, CDP #### [facility] [address] [place] [address] Willow Machine Tender: Dwain Aldana MDBameadowview regional medical center Metabolic Panel w/ Reflex to MGon 80-61-6670Gtqti gap [Moles/Vol]7 mmol/LLow9 - 16 mmol/LBON [facility] Calcium [Mass/Vol]6.6 mg/dLLow8.6 - 10.4 mg/dLBON [facility] MERCY HEALTHChloride [Moles/Vol]108 mmol/LHigh98 - 107 mmol/LBON [facility] MERCY HEALTHCO2 [Moles/Vol] 23 mmol/L20 - 31 mmol/LBON TRIHEALTHCreatinine [Mass/Vol]0.4 mg/dLLow 0.50 - 0.90 mg/dLBON TRIHEALTHEst, Glom Filt Rate- PINFBON TRIHEALTHComment on above: These results are not intended [...] therapy that affects renal tubular secretion. Glucose [Mass/Vol]81 mg/dL74 - 99 mg/dLBON TRIHEALTHInterpretation and review of laboratory resultsAbnormalBON TRIHEALTHPotassium [Moles/Vol]3.6 mmol/LLow3.7 - 5.3 mmol/LBON TRIHEALTHSodium [Moles/Vol]138 mmol/L136 - 145 mmol/LBON TRIHEALTHUrea nitrogen [Mass/Vol]13 mg/dL8 - 23 mg/dLBON [facility] CBC with Auto Differentialon [id number] (Bld) [#/Vol]0.03 10*3/uLBON SECCENTERVILLEBasophils/100 WBC (Bld)0 %0 - 2 %[facility] Eosinophils (Bld) [#/Vol]0.05 10*3/uLBON TRIHEALTHEosinophils/100 WBC (Bld)1 %1 - 4 %[facility] HOSPITALErythrocyte distribution width (RBC) [Ratio]19.9 %High11.8 - 14.4 %Certeon TRIHEALTHHematocrit (Bld) [Volume fraction]19.9 %Low36.3 - 47.1 %BON TRIHEALTHHemoglobin (Bld) [Mass/Vol]5.8 g/dLCritically low11.9 - 15.1 g/dLBON TRIHEALTHImmature granulocytes (Bld) [#/Vol]0.06 10*3/uLBON TRIHEALTHImmature granulocytes/100 WBC (Bld)1 %Kduw6WGM TRIHEALTHInterpretation and review of laboratory resultsAbnormalBON TRIHEALTHLymphocytes/100 WBC (Bld)18 %Low24 - 43 %[facility] HOSPITALLymphocytes/100 WBC (Bld)1.67 %[facility] CENTERH (RBC) [Entitic mass]29.7 pg25.2 - 33.5 pgBON ADAMS COUNTY REGIONAL MEDICAL CENTERHC (RBC) [Mass/Vol]29.1 g/dL28.4 - 34.8 g/dLBON SECOHIOHEALTH DUBLIN METHODIST HOSPITALV (RBC) [Entitic vol]102.1 fL82.6 - 102.9 fLINOVA FAIR OAKS HOSPITAL Monocytes/100 WBC (Bld)8 %3 - 12 %[facility]OSPITALMonocytes/100 WBC (Bld)0.72 %[facility] HOSPITALNeutrophils/100 WBC (Bld)73 %High36 - 65 %[facility] HOSPITALNucleated RBC/100 WBC (Bld) [Ratio]0.0 %0.0 per 100 WBCINOVA FAIR OAKS HOSPITALPlatelet mean volume (Bld) [Entitic vol]11.5 fL8.1 - 13.5 fL [facility] HOSPITALPlatelets (Bld) [#/Vol]186 10*3/uLBON TRIHEALTHRBC (Bld) [#/Vol]1.95 10*6/uLLow3.95 - 5.11 m/uLINOVA FAIR OAKS HOSPITAL RBC (Bld) [#/Vol]ANISOCYTOSIS PRESENTBON TRIHEALTHSegmented neutrophils/100 WBC (Bld)6.93 %[facility] FA[facility] OAKS HOSPITALWBC other (Bld) [#/Vol] 9.5BON SECSTOUGHTON HOSPITALCBC with Diffon 11-25-2023 Abs. Basophil0.03 k/uLNormal0.00-0.20[facility] OhioComment on above:Performed By: #### BMPX, MG, CDP #### [facility] [address] [place] [address] Willow Machine Tender: Paul Lam.Imm.Granulocyte0.06 k/uLNormal0.00-0.30[facility] OhioComment on above:Performed By: #### BMPX, MG, CDP #### [address] [address] Willow Machine Tender: Paul Lam.Neutrophil (Seg)6.93 k/uLNormal1.50-8.10 [facility] OhioComment on above:Performed By: #### BMPX, MG, CDP #### [facility] [employer] [address] [place] [address] Willow Machine Tender: Dwain Aldana MDBasophils/100 WBC (Bld)0 %Normal0-2MCity of Hope National Medical CenterComment on above:Performed By: #### BMPX, MG, CDP #### [facility] [employer] [address] [place] [address] Willow Machine Tender: Dwain Aldana MDEosinophils (Bld) [#/Vol]0.05 10*3/uLNormal 0.00-0.44[facility] OhioComment on above:Performed By: #### BMPX, MG, CDP #### [facility] [employer] [address] [place] [address] Willow Machine Tender: Dwain Aldana MDEosinophils/100 WBC (Bld)1 %Normal1-4[facility] OhioComment on above:Performed By: #### BMPX, MG, CDP #### [facility] [employer] [address] [place] [address] Willow Machine Tender: Dwain Aldana MDErythrocyte distribution width (RBC) [Ratio]19.9 %High11.8-14.4[facility] OhioComment on above:Performed By: #### BMPX, MG, CDP #### [facility] [address] [place] [address] Willow Machine Tender: Dwain Aldana MDHematocrit (Bld) [Volume fraction]19.9 %Low 36.3-47.1MCity of Hope National Medical CenterComment on above:Performed By: #### BMPX MG, CDP #### [facility] [address] [place] [address] Willow Machine Tender: Dwain Aldana MDHemoglobin (Bld) [Mass/Vol]5.8 g/dLCritically low11.9-15.1MCity of Hope National Medical CenterComment on above:Performed By: #### MALCOLM MG, CDP #### [place] [address] Willow Machine Tender: Dwain Aldana MDImmature granulocytes/100 WBC (Bld)1 %Wcxz2PbeumKing'S Daughters Medical Center OhioComment on above:Performed By: #### MALCOLM MG, CDP #### [facility] [employer] [address] [place] [address] Willow Machine Tender: Nikole Lammphocytes (Bld) [#/Vol]1.67 10*3/uLNormal 1.10-3.70[facility] OhioComment on above:Performed By: #### CARRIX MG, CDP #### [facility] [employer] [address] [place] [address] Willow Machine Tender: Nikole Lammphocytes/100 WBC (Bld)18 %Dyu75-09RrycvKing'S Daughters Medical Center OhioComment on above:Performed By: #### BMPX, MG, CDP #### [facility] [employer] [address] [place] [address] Willow Machine Tender: HONORIO LamCH (RBC) [Entitic mass]29.7 gzKluqtc78.2-33.5 [facility] OhioComment on above:Performed By: #### BMPX, MG, CDP #### [facility] [address] [place] [address] Willow Machine Tender: HONORIO LamCHC (RBC) [Mass/Vol]29.1 g/nSKivjyd78.4-34.8 [facility] OhioComment on above:Performed By: #### BMPX, MG, CDP #### [facility] [employer] [address] [place] [address]97 Willow Machine Tender: HONORIO LamCV (RBC) [Entitic vol]102.1 zIHaayuf61.6-102.9 [facility] OhioComment on above:Performed By: #### BMPX, MG, CDP #### [facility] [employer] [address] [place] [address] Willow Machine Tender: HONORIO Lamonocytes (Bld) [#/Vol]0.72 10*3/uLNormal 0.10-1.20[facility] OhioComment on above:Performed By: #### BMPX, MG, CDP #### [facility] [employer] [address] [place] [address] Willow Machine Tender: HONORIO Lamonocytes/100 WBC (Bld)8 %Normal3-12[facility] OhioComment on above:Performed By: #### BMPX, MG, CDP #### [facility] [employer] [address] [place] [address] Willow Machine Tender: Dwain Aldana MDNeutrophil (Seg)73 %Jcdp89-98NtpobKing'S Daughters Medical Center OhioComment on above:Performed By: #### BMPX, MG, CDP #### [facility] [employer] [address] [place] [address] 14684 Willow Machine Tender: Dwain Aldana MDNRBC Automated0.0 per 100 WBCNormal0.0[facility] OhioComment on above:Performed By: #### BMPX, MG, CDP #### [facility] [employer] [address] [place] [address]246 Willow Machine Tender: Amber Lam mean volume (Bld) [Entitic vol]11.5 fL Normal8.1-13.5[facility] OhioComment on above:Performed By: #### BMPX, MG, CDP #### [facility] [employer] [address] [place] [address] Willow Machine Tender: Isrrael Lamtelets (Bld) [#/Vol]186 10*3/qZDdystj023-147 [facility] OhioComment on above:Performed By: #### BMPX, MG, CDP #### [facility] [employer] [address] [place] [address]53 Willow Machine Tender: VIVEK Lam (Bld) [#/Vol]1.95 10*6/uLLow3.95-5.11[facility] OhioComment on above:Performed By: #### BMPX, MG, CDP #### [facility] [employer] [address] [place] [address] 38886 Willow Machine Tender: VIVEK Lam morphology finding Nom (Bld)ANISOCYTOSIS PRESENTNormalKing'S Daughters Medical Center OhioComment on above:Performed By: #### BMPX, MG, CDP #### [address] [address] Willow Machine Tender: LORETA Lam (Bld) [#/Vol]9.5 10*3/uLNormal3.5-11.3MCity of Hope National Medical CenterComment on above:Performed By: #### BMPX, MG, CDP #### [facility] [employer] [address] [place] [address] Willow Machine Tender: BUZZ LamA ABDOMEN PELVIS W WO CONTRASTon 81-21-2646QAR ABDOMEN PELVIS W WO CONTRASTEXAMINATION: CTA OF THE ABDOMEN AND PELVIS WITH [...] is identified. Bladder and rectum are intact. Peritoneum/Retroperitoneum: Small amount of free fluid in the [...] Signed by: Smith Hahn MD 11/25/23 Final resultNormalMercy Wapato Medical CenterCTA Abdominal vessels and Pelvis vessels WO and W contrast Mike . No evidence of mesenteric ischemia or contrast extravasation. 2. Small bilateral pleural effusions greater on the right with right basilar atelectasis. 3. Small amount of free fluid in the pelvis and surrounding the liver. 4. Mild left hydronephrosis. 5. Diffuse wall thickening of the stomach possibly reflecting gastritis. Consider direct visualization. 6. Small fat containing umbilical hernia. 7. Diffuse anasarca. [facility] CONSOLIDATEDEXAMINATION: CTA OF THE ABDOMEN AND PELVIS WITH [...] is identified. Bladder and rectum are intact. Peritoneum/Retroperitoneum: Small amount of free fluid in the pelvis and surrounding the liver. No lymphadenopathy. No evidence of pneumoperitoneum. Bones/Soft Tissues: Small fat containing umbilical hernia. Diffuse anasarca. Degenerative changes seen in the visualized spine . No acute bony abnormalities. [facility] Smith Vallejo P, MD - 11/25/2023 EXAMINATION: CTA OF THE [...] is identified. Bladder and rectum are intact. Peritoneum/Retroperitoneum: Small amount of free fluid in the [...] fat containing umbilical hernia. 7. Diffuse anasarca. [facility]OSPITALRadiology Study observation (narrative)[facility] HOSPITALA Abdominal vessels and Pelvis vessels WO and W contrast IVOrdered By: Smith Hahn on [id number] MOUNT VERNON HOSPITAL Work Phone: Hemoglobin and Hematocriton 61-92-4801Troegjalua (Bld) [Volume fraction]24.6 %Low36.3 - 47.1 %[facility]AKS HOSPITALHemoglobin (Bld) [Mass/Vol]8.5 g/dLLow11.9 - 15.1 g/dLBON TRIHEALTHInterpretation and review of laboratory resultsAbnoBlack Hills Rehabilitation HospitalHematocrit (Bld) [Volume fraction]28.6 %Low36.3 - 47.1 %[facility] HOSPITALHemoglobin (Bld) [Mass/Vol]9.2 g/dLLow11.9 - 15.1 g/dLBON TRIHEALTHInterpretation and review of laboratory resultsAbCuster Regional HospitalHematocrit (Bld) [Volume fraction]20.3 %Low36.3 - 47.1 %[facility] HOSPITALHemoglobin (Bld) [Mass/Vol]6.6 g/dLCritically low 11.9 - 15.1 g/dLBON TRIHEALTHInterpretation and review of laboratory resultsAbnoBlack Hills Rehabilitation HospitalHgb/Hcton 50-04-6429Igoqkebrgj (Bld) [Volume fraction]28.6 %Low36.3-47.1MercSharp Mary Birch Hospital for WomenComment on above:Performed By: #### BMPX MG, CDP #### [employer] [address] [place] [address] Willow Machine Tender: Dwain Aldana MDHemoglobin (Bld) [Mass/Vol]9.2 g/dLLow11.9-15.1 [facility] OhioComment on above:Performed By: #### BMPX MG, CDP #### [employer] [address] [place] [address] Willow Machine Tender: Dwain Aldana MDHematocrit (Bld) [Volume fraction]30.2 %Low 36.3-47.1MCity of Hope National Medical CenterComment on above:Performed By: #### BMPX MG, CDP #### [facility] [employer] [address] [place] [address] Willow Machine Tender: Dwain Aldana MDHemoglobin (Bld) [Mass/Vol]9.0 g/dLLow11.9-15.1 [facility] OhioComment on above:Performed By: #### CARRIX MG, CDP #### [facility] [employer] [address] [place] [address] Willow Machine Tender: Dwain Aldana MDHematocrit (Bld) [Volume fraction]20.3 %Low 36.3-47.1MCity of Hope National Medical CenterComment on above:Performed By: #### CARRIX MG, CDP #### [facility] [employer] [address] [place] [address] Willow Machine Tender: Dwain Aldana MDHemoglobin (Bld) [Mass/Vol]6.6 g/dLCritically low11.9-15.1MCity of Hope National Medical CenterComment on above:Performed By: #### CARRIX MG, CDP #### [facility] [employer] [address] [place] [address] Willow Machine Tender: Mitchell Lam Binding Cap.on 11-25-2023% Fe Rzrxvrdirw16 %Eikrwz43-39KzmiaKing'S Daughters Medical Center OhioComment on above:Performed By: #### BMPX MG, CDP #### [facility] [employer] [address] [place] [address] Willow Machine Tender: Mitchell Lam [Mass/Vol]80 ug/gSMblnao82-814FfciaKing'S Daughters Medical Center OhioComment on above:Performed By: #### BMPX, MG, CDP #### [facility] [address] [place] [address] Willow Machine Tender: Dwain Aldana MDTotal Fe Binding Pue118 ug/cWXfb971-234HuxmsKing'S Daughters Medical Center OhioComment on above:Performed By: #### BMPX, MG, CDP #### [facility] [address] [place] [address] Willow Machine Tender: Dwain Aldana MDUnbound Fe Bind Riw555 ug/tDGvplwf084-067YfkkjKing'S Daughters Medical Center OhioComment on above:Performed By: #### BMPX, MG, CDP #### [facility] [employer] [address] [place] [address] Willow Machine Tender: Mitchell Lam and [facility] 89-65-3996Xxzmoqmghrenul and review of laboratory resultsAbnormalBON SECCENTERVILLEIron [Mass/Vol]80 ug/dL37 - 145 ug/dLBON SECCENTERVILLEIron binding capacity [Mass/Vol]205 ug/cEHwu574 - 450 ug/dLBON SECCENTERVILLEIron saturation [Mass fraction]39 %20 - 55 %[facility]ON [facility]SA[facility] WGQDAYMJOS275 ug/dL112 - 347 ug/dLBON SECTHE UNIVERSITY OF [facility]ENTER SECCENTERVILLELactate, Sepsison 59-39-6224Hqkxfl Acid,Sep Wbld 0.9 mmol/LNormal0.5-1.9[facility] OhioComment on above: Performed By: #### HH #### [facility] [address] [place] [address] Willow Machine Tender: Dwain Aldana MDLactic Acid, Sepsis, Whole Blood0.9 mmol/L0.5 - 1.9 mmol/LBON SECSTOUGHTON HOSPITALLactic Acid,Sep Wbld 0.6 mmol/LNormal0.5-1.9[facility] OhioComment on above: Performed By: #### TSHX, PRCAL #### [facility] [employer] [address] [place] [address] [phone] Willow Machine Tender: Dwain Aldana MDLactic Acid, Sepsis, Whole Blood0.6 mmol/L0.5 - 1.9 mmol/LBON [facility]ITAL-SIOUX FALLSLactic Acid,Sep Wbld 0.7 mmol/LNormal0.5-1.9[facility] OhioComment on above: Performed By: #### MG MALCOLM, CDP #### [employer] [address] [place] [address] [phone] Willow Machine Tender: Dwain Aldana MDLactic Acid, Sepsis, Whole Blood0.7 mmol/L0.5 - 1.9 mmol/LBON [facility] FALLSNo Panel Informationon [id number] [facility] 32-37-3254UVX Coag (PPP) [Relative time] 1.2 {INR}NormalKing'S Daughters Medical Center OhioComment on above:Result Comment: Therapeutic Range: Moderate Anticoagulant Intensity: INR = 2.0-3.0 High Anticoagulant Intensity: INR = 2.5-3.5Performed By: ###MG DEVYN, CDP #### [employer] [address] [place] [address] [phone] Willow Machine Tender: HARIS Lam Coag (PPP) [Time]15.5 sHigh11.7-14.9[facility] OhioComment on above:Performed By: #### MG MALCOLM, CDP #### [employer] [address] [place] [address] [phone] Willow Machine Tender: Devonte Lam XR Chest AP single viewon 11-25-2023 Layering right greater than left pleural effusions and bibasilar atelectasis. MHPN RIS CONSOLIDATEDEXAMINATION: ONE XRAY VIEW OF THE CHEST 11/25/2023 4:29 pm COMPARISON: None. HISTORY: ORDERING SYSTEM PROVIDED HISTORY: hypoxia TECHNOLOGIST PROVIDED HISTORY: hypoxia Reason for Exam: hypoxia upright port FINDINGS: Heart / Mediastinum: Heart size is normal. Normal pulmonary vasculature. Mediastinal contours are unremarkable. Lungs: Bibasilar atelectasis with no focal consolidation. Pleura: Layering right greater than left pleural effusions. Bones: No acute osseous abnormality. [facility] Keaton Vasquez MD - 11/25/2023 EXAMINATION: ONE XRAY VIEW [...] than left pleural effusions and bibasilar atelectasis. [facility] UmamiGUERNSEY MEMORIAL HOSPITALRadiology Study observation (narrative)[facility] Tactonic TechnologiesPortable XR Chest AP single viewOrdered By: Keaton Montilla on [id number] [employer] Work Phone: [phone]-PYCyv [id number] Coag (PPP) [Relative time] 1.2 {INR}[facility] GlassesOffComment on above: Therapeutic Range: Moderate Anticoagulant Intensity: INR = 2.0-3.0 High Anticoagulant Intensity: INR = 2.5-3.5 Interpretation and review of laboratory resultsAbnormalINOVA ALEXANDRIA HOSPITAL Ambient Devices PT Coag (PPP) [Time]15.5 sHighBON COLUSA REGIONAL MEDICAL CENTERKalion [facility]ICAL CENTERXR CHEST PORTABLEon 01-40-9070FU CHEST PORTABLEEXAMINATION: ONE XRAY VIEW OF THE CHEST 11/25/2023 [...] Signed by: Keaton Montilla MD 11/25/[address] Mary Regional Medical CenterErythrocyte distribution width Auto (RBC) [Ratio]Ordered By: Frantz Nieves on 45-86-5853Tizcbfaqagm distribution width (RBC) [Ratio]16.3 %11.9-15.3FC[facility] Hospital Ferritinon 88-33-4938Ovnacsxg [Mass/Vol]40.6 ng/pRKyijbh58.0-306.8The [facility] Physician GroupComment on above:Result Comment: PERFORMED BY: [place] [address] PATHOLOGIST CLINICAL COUNSELOR EVY GARCIA M.D.Performed By: #### CBCNO, MG #### [facility] [address] [place] [address] USAFerritin [Mass/volume] in Serum or PlasmaOrdered By: Jaspal Whalen on 91-25-3118Geeoqnri [Mass/Vol]40.6 ng/mL11.0-306.8Mer[facility] Urbana HospitalH Pylori Stool Ag, EIAon 11-21-2023H Pylori Stool Ag, EIA NegativeNormalNegativeThe [facility] Physician [facility] CenterComment on above:Order Comment: SOURCE OF SPECIMEN: stoolResult Comment: Performed at: [facility] [id number] [employer] Machine Tender: Jonny Guzman PhD, Phone: [phone] PERFORMED BY: [place] [address] PATHOLOGIST CLINICAL COUNSELOR EVY GARCIA M.D.Performed By: #### CBCNO, MG #### [facility] [address] [place] [address] USAHematocrit Auto (Bld) [Volume fraction]Ordered By: Frantz Nieves on 36-90-3260Adyixlzqbv (Bld) [Volume fraction]27.4 %34.0-46.4FCleveland Clinic Medina HospitalHemoglobin [Mass/volume] in BloodOrdered By: Frantz Nieves on 39-46-3638Wpxuqorpuf (Bld) [Mass/Vol]9.2 g/dL11.8-15.4FCleveland Clinic Medina HospitalHemogram CBC Without Diffon 74-49-3416Xaifhououhj distribution width (RBC) [Ratio]16.3 %High11.9-15.3The [facility] Physician GroupComment on above:Performed By: #### CBCNO #### [facility] [address] [place] [address] USAHematocrit (Bld) [Volume fraction]27.4 %Low34.0-46.4The [facility] Physician GroupComment on above:Performed By: #### CBCNO #### [facility] [address] [place] [address] USAHemoglobin (Bld) [Mass/Vol]9.2 g/dLLow11.8-15.4The [facility] Physician GroupComment on above:Performed By: #### CBCNO #### [facility] [address] [place] [address] USAMCH (RBC) [Entitic mass]31.3 wiFqnone94.7-34.3The [facility] Physician GroupComment on above:Performed By: #### CBCNO #### [facility] [address] [place] [address] USAMCV (RBC) [Entitic vol]93.2 cTJaymfq24-348Fum [facility] Physician GroupComment on above:Performed By: #### CBCNO #### [facility] [address] [place] [address] USAMean Corpuscular HGB Conc33.6 g/uHSvdsar93.0-35.0The [facility] Physician GroupComment on above:Performed By: #### CBCNO #### [facility] [address] [place] [address] USAPlatelet mean volume (Bld) [Entitic vol]7.7 fLNormal 6.3-10.7The [facility] Physician GroupComment on above:Result Comment: PERFORMED BY: [place] [address] PATHOLOGIST CLINICAL COUNSELOR EVY GARCIA M.D.Performed By: #### CBCNO #### [facility] [address] [place] [id number] USAPlatelets (Bld) [#/Vol]377 10*3/lBDuhbkc467-538Tnm [facility] Physician GroupComment on above:Performed By: #### CBCNO #### [place] [address] USARBC (Bld) [#/Vol]2.94 10*6/uLLow3.60-5.00The [facility] Physician GroupComment on above:Performed By: #### CBCNO #### [place] [address] USAWBC (Bld) [#/Vol]8.8 10*3/uLNormal3.8-11.6The [facility] Physician GroupComment on above:Performed By: #### CBCNO #### [place] [address] USAIron [Mass/volume] in Serum or PlasmaOrdered By: Jaspal Whalen on 59-37-0709Syzp [Mass/Vol]20 ug/pY07-491XifahtzmeMercy Health Urbana HospitalIron and TIBC Profileon 11-21-2023% Iron Saturation6.0 %Kdx93-45Vli [facility] Physician GroupComment on above:Performed By: #### CBCNO, MG #### [place] [address] USAIron [Mass/Vol]20 ug/zQGae44-508Ohz [facility] Physician GroupComment on above:Performed By: #### CBCNO, MG #### [place] [id number] USATotal Iron Binding Zlvhnmys622 ug/iKPmrtkr162-344Gwe [facility] Physician GroupComment on above:Performed By: #### CBCNO, MG #### [place] [id number] USATransferrin [Mass/Vol]238 mg/tLJkahkg758-358Rto [facility] Physician GroupComment on above:Performed By: #### CBCNO, MG #### [place] [address] USAIron binding capacity [Mass/volume] in Serum or Plasma Ordered By: Jaspal Whalen on 24-33-3347Skik binding capacity [Mass/Vol]333 ug/fK438-209TprjgmnpjMercy Health Urbana HospitalIron saturation [Mass Fraction] in Serum or PlasmaOrdered By: Jaspal Whalen on 36-92-0825Trgg saturation [Mass fraction]6.0 %20-50Mercy Health Urbana HospitalLeukocytes [#/volume] corrected for nucleated erythrocytes in Blood by Automated counOrdered By: Frantz Nieves on 16-35-1295EFP corrected for nucl RBC Auto (Bld) [#/Vol]8.8 10*3/uL 3.8-11.6FFairfield Medical CenterH Auto (RBC) [Entitic mass]Ordered By: Frantz Nieves on 03-98-1547NFG (RBC) [Entitic mass]31.3 pg24.7-34.3FCleveland Clinic Medina HospitalMCHC Auto (RBC) [Mass/Vol]Ordered By: Frantz Nieves on 27-74-3914TCXY (RBC) [Mass/Vol]33.6 g/dL32.0-35.0Mer[facility]rbana HospitalMCV Auto (RBC) [Entitic vol]Ordered By: Frantz Nieves on 86-64-0940GCZ (RBC) [Entitic vol]93.2 kG36-375QsrsmjcyxMercy Health Urbana HospitalPlatelet mean volume Auto (Bld) [Entitic vol]Ordered By: Frantz Nieves on 58-32-8743Lultvilx mean volume (Bld) [Entitic vol]7.7 fL6.3-10.7FC[facility] Hospital Platelets Auto (Bld) [#/Vol]Ordered By: Frantz Nieves on 41-39-7491Eqiplfqrp (Bld) [#/Vol]377 10*3/pL032-498VjpewdcnhMercy Health Urbana HospitalRBC Auto (Bld) [#/Vol]Ordered By: Frantz Nieves on 70-32-0507KVO (Bld) [#/Vol]2.94 10*6/uL 3.60-5.00Mer[facility] Urbana HospitalTransferrin [Mass/volume] in Serum or PlasmaOrdered By: Jaspal Whalen on 91-62-5954Btgyoibccqr [Mass/Vol]238 mg/dL 203-362Mercy Health Urbana HospitalHemoglobin and Hematocriton 11-20-2023 Hematocrit (Bld) [Volume fraction]24.7 %Low34.0-46.4The [facility] Physician GroupComment on above:Result Comment: PERFORMED BY: [place] [address] PATHOLOGIST CLINICAL COUNSELOR EVY GARCIA M.D.Performed By: #### HH #### [place] [address] USAHemoglobin (Bld) [Mass/Vol]8.4 g/dLLow11.8-15.4The [facility] Physician GroupComment on above:Performed By: #### HH #### [place] [address] USAHemogram CBC Without Diffon 86-11-7908Vktifghdkbv distribution width (RBC) [Ratio]16.5 %High11.9-15.3The [facility] Physician Group Comment on above:Performed By: #### CBCNO, MG #### [place] [address] USAHematocrit (Bld) [Volume fraction]23.7 %Low34.0-46.4The [facility] Physician GroupComment on above:Performed By: #### CBCNO, MG #### [place] [address] USAHemoglobin (Bld) [Mass/Vol]8.1 g/dLLow11.8-15.4The [facility] Physician GroupComment on above:Performed By: #### CBCNO, MG #### [place] [address] USAMCH (RBC) [Entitic mass]31.7 qdVbemti67.7-34.3The [facility] Physician GroupComment on above:Performed By: #### CBCNO, MG #### [place] [address] USAMCV (RBC) [Entitic vol]92.5 eMNrverp79-498Naa [facility] Physician GroupComment on above:Performed By: #### CBCNO, MG #### [place] [address] USAMean Corpuscular HGB Conc34.2 g/zRPfrobg37.0-35.0The [facility] Physician GroupComment on above:Performed By: #### CBCNO, MG #### [place] [address] USAPlatelet mean volume (Bld) [Entitic vol]7.8 fLNormal 6.3-10.7The [facility] Physician GroupComment on above:Result Comment: PERFORMED BY: [place] [address] PATHOLOGIST CLINICAL COUNSELOR EVY GARCIA M.D.Performed By: #### CBCNO, MG #### [place] [address] USAPlatelets (Bld) [#/Vol]279 10*3/eTBnjkon198-580Gwy [facility] Physician GroupComment on above:Performed By: #### CBCNO, MG #### [place] [address] USARBC (Bld) [#/Vol]2.56 10*6/uLLow3.60-5.00The [facility] Physician GroupComment on above:Performed By: #### CBCNO, MG #### [place] [address] USAWBC (Bld) [#/Vol]9.2 10*3/uLNormal3.8-11.6The [facility] Physician GroupComment on above:Performed By: #### CBCNO, MG #### [place] [address] USAMagnesiumon 57-20-1160Daikccpjh [Mass/Vol]1.7 mg/dLLow 1.9-2.7The [facility] Physician GroupComment on above:Result Comment: PERFORMED BY: [place] [address] PATHOLOGIST CLINICAL COUNSELOR EVY GARCIA M.D.Performed By: #### BERNABE, MG #### [place] [address] USAMagnesium [Mass/volume] in Serum or PlasmaOrdered By: Frantz Nieves on 19-40-9432Segphzcgo [Mass/Vol]1.7 mg/dL1.9-2.7FCleveland Clinic Medina HospitalBasic Metabolic Panelon 52-69-1118Tkqcc gap [Moles/Vol]6.7 mmol/L Normal6.0-15.0The [facility] Physician GroupComment on above:Performed By: #### BERNABE, MG #### [place] [address] USACalcium [Mass/Vol]6.6 mg/dLLow8.6-10.3The [facility] Physician GroupComment on above:Performed By: #### BERNABE, MG #### [place] [address] USAChloride [Moles/Vol]111 mmol/ENxyk70-942Euj [facility] Physician [facility] Medical CenterComment on above:Performed By: #### BERNABE, MG #### [place] [address] USACO2 [Moles/Vol]24.0 mmol/AKgfwbz96.0-31.0The [facility] Physician GroupComment on above:Performed By: #### CBCNO, MG #### [place] [address] USACreatinine [Mass/Vol]0.40 mg/dLLow0.60-1.20The [facility] Physician GroupComment on above:Performed By: #### CBCNO, MG #### [place] [address] USACreatinine Clr Calc Mcsvamxc15.26NormalThe [facility] Physician GroupComment on above:Performed By: #### CBCNO, MG #### [place] [address] USAGFR/1.73 sq M.predicted MDRD (S/P/Bld) [Vol rate/Area] mL/min/{1.73_m2}NormalThe [facility] Physician GroupComment on above:Performed By: #### CBCNO, MG #### [facility] [address] [place] [address] USAGlucose [Mass/Vol]88 mg/tIGkcukv33-188Oxw [facility] Physician GroupComment on above:Result Comment: Random Glucose Reference Range is dependent on time and content of last meal. Glucose of more than 200 mg/dL in a nonstressed, ambulatory subject supports the diagnosis of Diabetes Mellitus. ADA recommended reference rangePerformed By: #### CBCNO, MG #### [facility] [address] [place] [address] USAPotassium [Moles/Vol]3.7 mmol/LNormal3.5-5.1The [facility] Physician GroupComment on above:Performed By: #### CBCNO, MG #### [facility] [address] [place] [address] USASodium [Moles/Vol]138 mmol/VYxxyem030-650Hjs [facility] Physician GroupComment on above:Performed By: #### CBCNO, MG #### [facility] [address] [place] [address] USAUrea nitrogen [Mass/Vol]15 mg/dLNormal7-25The [facility] Physician GroupComment on above:Performed By: #### CBCNO, MG #### [facility] [address] [place] [address] USACalcium [Mass/volume] in Serum or PlasmaOrdered By: Frantz Nieves on 68-19-6641Qmsqymp [Mass/Vol]6.6 mg/dL8.6-10.3FCleveland Clinic Medina HospitalCarbon dioxide, total [Moles/volume] in Serum or PlasmaOrdered By: Frantz Nieves on 39-07-5746ZY7 [Moles/Vol]24.0 mmol/L21.0-31.0Mer[facility]ana HospitalChloride [Moles/volume] in Serum or PlasmaOrdered By: Frantz Nieves on 73-90-3229Nadnosnk [Moles/Vol]111 mmol/K54-953Yfnlxyptw Regional Medical CenterCreatinine [Mass/volume] in Serum or PlasmaOrdered By: Frantz Nieves on 19-08-6115Oykhtszkeh [Mass/Vol]0.40 mg/dL0.60-1.20Mer[facility]rbana HospitalGlucose [Mass/volume] in Serum or PlasmaOrdered By: Frantz Nieves on 06-15-8331Heqdlih [Mass/Vol]88 mg/iN49-810DbvuymogeMercy Health Urbana Hospital Comment on above:ADA recommended reference rangeRandom Glucose Reference Range is dependent on time and content of last meal. Glucose of more than 200 mg/dL in a nonstressed, ambulatory subject supports the diagnosisof Diabetes Mellitus. Hemoglobin and Hematocriton 67-03-2387Rtbdkvhucn (Bld) [Volume fraction]26.7 % Low34.0-46.4The [facility] Physician GroupComment on above:Result Comment: PERFORMED BY: [place] [address] PATHOLOGIST CLINICAL COUNSELOR EVY GARCIA M.D.Performed By: #### CBCNO, MG #### [facility] [address] [place] [address] USAHemoglobin (Bld) [Mass/Vol]9.1 g/dLSignificant change down 11.8-15.4The [facility] Physician GroupComment on above:Performed By: #### CBCNO, MG #### [place] [address] USAHematocrit (Bld) [Volume fraction]19.0 %Off scale low 34.0-46.4The [facility] Physician GroupComment on above:Result Comment: Critical value result called at 1124 on 11/19/23 PERFORMED BY: [place] [address] PATHOLOGIST CLINICAL COUNSELOR EVY GARCIA M.D.Performed By: #### CBCNO, MG #### [address] [address] USAHemoglobin (Bld) [Mass/Vol]6.5 g/dLLow11.8-15.4The [facility] Physician GroupComment on above:Performed By: #### CBCNO, MG #### [place] [address] USAHematocrit (Bld) [Volume fraction]22.1 %Low34.0-46.4The [facility] Physician GroupComment on above:Result Comment: PERFORMED BY: [place] [address] PATHOLOGIST CLINICAL COUNSELOR EVY GARCIA M.D.Performed By: #### CBCNO, MG #### [place] [address] USAHemoglobin (Bld) [Mass/Vol]7.5 g/dLLow11.8-15.4The [facility] Physician GroupComment on above:Performed By: #### CBCNO, MG #### [place] [address] USAHemogram CBC Without Diffon 22-29-4798Tudzumgjtpu distribution width (RBC) [Ratio]16.2 %High11.9-15.3The [facility] Physician Group Comment on above:Performed By: #### CBCNO, MG #### [place] [address] USAHematocrit (Bld) [Volume fraction]20.5 %Low34.0-46.4The [facility] Physician GroupComment on above:Performed By: #### CBCNO, MG #### [place] [address] USAHemoglobin (Bld) [Mass/Vol]7.1 g/dLLow11.8-15.4The [facility] Physician GroupComment on above:Performed By: #### CBCNO, MG #### [place] [address] USAMCH (RBC) [Entitic mass]31.8 ncFhhqob73.7-34.3The [facility] Physician GroupComment on above:Performed By: #### CBCNO, MG #### [place] [address] USAMCV (RBC) [Entitic vol]92.0 tJAlmmpi55-425Nrb [facility] Physician GroupComment on above:Performed By: #### CBCNO, MG #### [facility] [address] [place] [address] USAMean Corpuscular HGB Conc34.6 g/oNJieyfa80.0-35.0The [facility] Physician GroupComment on above:Performed By: #### CBCNO, MG #### [place] [address] USAPlatelet mean volume (Bld) [Entitic vol]7.5 fLNormal 6.3-10.7The [facility] Physician GroupComment on above:Result Comment: PERFORMED BY: [place] [address] PATHOLOGIST CLINICAL COUNSELOR EVY GARCIA M.D.Performed By: #### CBCNO, MG #### [place] [address] USAPlatelets (Bld) [#/Vol]247 10*3/aQFhlumd474-084Six [facility] Physician GroupComment on above:Performed By: #### CBCNO, MG #### [place] [address] USARBC (Bld) [#/Vol]2.23 10*6/uLLow3.60-5.00The [facility] Physician GroupComment on above:Performed By: #### CBCNO, MG #### [place] [address] USAWBC (Bld) [#/Vol]10.1 10*3/uLNormal3.8-11.6The [facility] Physician GroupComment on above:Performed By: #### CBCNO, MG #### [place] [address] USAMagnesiumon 97-31-2942Zsimuadii [Mass/Vol]2.0 mg/dLNormal 1.9-2.7The [facility] Physician GroupComment on above:Result Comment: PERFORMED BY: [place] [address] PATHOLOGIST CLINICAL COUNSELOR EVY GARCIA M.D.Performed By: #### CBCNO, MG #### [facility] [address] [place] [id number] USANo Panel InformationOrdered By: Frantz Nieves on 11-19-2023 Estimated GFR (CKD-EPI)> 60.0 mL/MinMercy Health Urbana HospitalPharmacy Creatinine Clearance (Chem50.26Mer[facility]rbana HospitalPotassium [Moles/volume] in Serum or PlasmaOrdered By: Frantz Nieves on 27-91-7314Jkyxqnupt [Moles/Vol]3.7 mmol/L3.5-5.1FMercer County Community Hospitalerum or plasma anion gap determinationOrdered By: Frantz Nieves on 31-32-6623Prsps gap [Moles/Vol]6.7 mmol/L6.0-15.0[facility] Warren Hospitalodium [Moles/volume] in Serum or PlasmaOrdered By: Frantz Nieves on 14-02-5361Okafvk [Moles/Vol]138 mmol/A594-168OzqirdrwoMercy Health Urbana HospitalUrea nitrogen [Mass/volume] in Serum or PlasmaOrdered By: Frantz Nieves on 33-01-5788Atqt nitrogen [Mass/Vol]15 mg/dL7Mer[facility] Health Urbana HospitalABO/Rh Retypeon 03-66-6093BZG/RH Recheck ResultPositiveNormNorth Okalo[facility] Physician Group Comment on above:Result Comment: PERFORMED BY: [facility] [address] [place] [address] PATHOLOGIST CLINICAL COUNSELOR EVY GARCIA M.D.Alanine aminotransferase [Enzymatic activity/volume] in Serum or PlasmaOrdered By: Dale Mckeon on 42-80-7251MTL [Catalytic activity/Vol]14 U/L -[facility] HospitalAlbumin [Mass/volume] in Serum or Plasma by Bromocresol green (BCG) dye binding methoOrdered By: Dale Mckeon on 11-18-2023 Albumin BCG dye [Mass/Vol]2.4 g/dL3.5-5.7FCleveland [facility] Alkaline phosphatase [Enzymatic activity/volume] in Serum or PlasmaOrdered By: Dale Mckeon on 92-21-7847BNQ [Catalytic activity/Vol]44 U/B51-649OrqyepestMercy Health Urbana HospitalAspartate aminotransferase [Enzymatic activity/volume] in Serum or PlasmaOrdered By: Dale Mckeon on 48-78-0755IID [Catalytic activity/Vol]17 U/Q52-78EqcecbskmMercy Health Urbana HospitalBasophils Auto (Bld) [#/Vol]Ordered By: Dale Mckeon on 97-07-8293Gimssebey (Bld) [#/Vol]N/[facility] HospitalBasophils/100 WBC Auto (Bld)Ordered By: Dale Mckeon on 47-86-4449Fqwjenofb/100 WBC (Bld)N/[facility] Bilirubin.total [Mass/volume] in Serum or PlasmaOrdered By: Dale Mckeon on 39-89-2900Pqlryiwyk [Mass/Vol]0.3 mg/dL0.3-1.0[facility] Comprehensive Metabolic Panelon 64-27-9062Rvjeabh [Mass/Vol]2.4 g/dLLow3.5-5.7 The [facility] Physician GroupComment on above:Performed By: #### MG, TSH3, CMP, DIFF CBC, T4F #### [facility] [address] [place] [address] USAAlbumin/Globulin [Mass ratio]1.6 {ratio}NormalThe [facility] Physician GroupComment on above:Performed By: #### MG, TSH3, CMP, DIFF CBC, T4F #### [facility] [address] [place] [id number] USAALP [Catalytic activity/Vol]44 U/ILkyntv14-837Xaw [facility] Physician GroupComment on above:Performed By: #### MG, TSH3, CMP, DIFF CBC, T4F #### [facility] [address] [place] [address] USAALT [Catalytic activity/Vol]14 U/LNormal7-52The [facility] Physician GroupComment on above:Performed By: #### MG, TSH3, CMP, DIFF CBC, T4F #### [facility] [address] [place] [address] USAAnion gap [Moles/Vol]8.8 mmol/LNormal6.0-15.0The [facility] Physician GroupComment on above:Performed By: #### MG, TSH3, CMP, DIFF CBC, T4F #### [place] [address] USAAST [Catalytic activity/Vol]17 U/OSjobep63-63Rzh [facility] Physician GroupComment on above:Performed By: #### MG, TSH3, CMP, DIFF CBC, T4F #### [place] [address] USABilirubin [Mass/Vol]0.3 mg/dLNormal0.3-1.0The [facility] Physician GroupComment on above:Performed By: #### MG, TSH3, CMP, DIFF CBC, T4F #### [place] [address] USACalcium [Mass/Vol]7.3 mg/dLLow8.6-10.3The [facility] Physician GroupComment on above:Performed By: #### MG, TSH3, CMP, DIFF CBC, T4F #### [place] [address] USAChloride [Moles/Vol]105 mmol/MYknmzn64-593Qzr [facility] Physician GroupComment on above:Performed By: #### MG, TSH3, CMP, DIFF CBC, T4F #### [facility] [address] [place] [address] USACO2 [Moles/Vol]28.2 mmol/KFashsr68.0-31.0The [facility] Physician GroupComment on above:Performed By: #### MG, TSH3, CMP, DIFF CBC, T4F #### [facility] [address] [place] [address] USACreatinine [Mass/Vol]0.46 mg/dLLow0.60-1.20The [facility] Physician GroupComment on above:Performed By: #### MG, TSH3, CMP, DIFF CBC, T4F #### [facility] [address] [place] [address] USACreatinine Clr Calc Dlbrtwvd43.26NormalThe [place] Physician GroupComment on above:Performed By: #### MG, TSH3, CMP, DIFF CBC, T4F #### [facility] [address] [place] [address] USAGFR/1.73 sq M.predicted MDRD (S/P/Bld) [Vol rate/Area] mL/min/{1.73_m2}NormalThe [facility] Physician GroupComment on above:Performed By: #### MG, TSH3, CMP, DIFF CBC, T4F #### [facility] [address] [place] [address] USAGlobulin (S) [Mass/Vol]1.5 g/dLBayfront Health St. Petersburg Emergency Room Physician GroupComment on above:Performed By: #### MG, TSH3, CMP, DIFF CBC, T4F #### [facility] [address] [place] [address] USAGlucose [Mass/Vol]93 mg/gVZbfukm10-418Bvc [facility] Physician GroupComment on above:Result Comment: Random Glucose Reference Range is dependent on time and content of last meal. Glucose of more than 200 mg/dL in a nonstressed, ambulatory subject supports the diagnosis of Diabetes Mellitus. ADA recommended reference rangePerformed By: #### MG, TSH3, CMP, DIFF CBC, T4F #### [facility] [address] [place] [address] USAPotassium [Moles/Vol]4.0 mmol/LNormal3.5-5.1The [facility] Physician GroupComment on above:Performed By: #### MG, TSH3, CMP, DIFF CBC, T4F #### [facility] [address] [place] [address] USAProtein [Mass/Vol]3.9 g/dLLow6.4-8.9The [facility] Physician GroupComment on above:Performed By: #### MG, TSH3, CMP, DIFF CBC, T4F #### [facility] [address] [place] [address] USASodium [Moles/Vol]138 mmol/HOuteki137-938Ziz [facility] Physician GroupComment on above:Performed By: #### MG, TSH3, CMP, DIFF CBC, T4F #### [facility] [address] [place] [address] USAUrea nitrogen [Mass/Vol]24 mg/dLNormal7-25The [facility] Physician GroupComment on above:Performed By: #### MG, TSH3, CMP, DIFF CBC, T4F #### [place] [address] USADiff and CBCon 56-28-4182Qvfniykximq distribution width (RBC) [Ratio]17.2 %High11.9-15.3The [facility] Physician GroupComment on above: Performed By: #### MG, TSH3, CMP, DIFF CBC, T4F #### [place] [address] USAHematocrit (Bld) [Volume fraction]16.0 %Off scale low 34.0-46.4The [facility] Physician GroupComment on above:Result Comment: Critical value result called at 0759 on 11/18/23Performed By: #### MG, TSH3, CMP, DIFF CBC, T4F #### [place] [address] USAHemoglobin (Bld) [Mass/Vol]5.6 g/dLLow11.8-15.4The [facility] Physician GroupComment on above:Performed By: #### MG, TSH3, CMP, DIFF CBC, T4F #### [place] [address] USAMCH (RBC) [Entitic mass]32.8 kfStuwzs54.7-34.3The [facility] Physician GroupComment on above:Performed By: #### MG, TSH3, CMP, DIFF CBC, T4F #### [place] [address] USAMCV (RBC) [Entitic vol]93.3 dEPyppwr86-993Dka [facility] Physician GroupComment on above:Performed By: #### MG, TSH3, CMP, DIFF CBC, T4F #### [place] [address] USAMean Corpuscular HGB Conc35.2 g/tMUuyz66.0-35.0The [facility] Physician GroupComment on above:Performed By: #### MG, TSH3, CMP, DIFF CBC, T4F #### [place] [address] USAPlatelet EstimateNormalNormalNormNorth [facility] Physician GroupComment on above:Performed By: #### MG, TSH3, CMP, DIFF CBC, T4F #### [place] [address] USAPlatelet mean volume (Bld) [Entitic vol]7.8 fLNormal 6.3-10.7The [facility] Physician GroupComment on above:Result Comment: PERFORMED BY: [place] [address] PATHOLOGIST CLINICAL COUNSELOR EVY GARCIA M.D.Performed By: #### MG, TSH3, CMP, DIFF CBC, T4F #### [place] [place] [address] USAPlatelet MorphologyNormalNormalNormNorth [facility]aloosa [facility] Center Physician GroupComment on above:Result Comment: PERFORMED BY: [place] [address] PATHOLOGIST CLINICAL COUNSELOR EVY GARCIA M.D.Performed By: #### MG, TSH3, CMP, DIFF CBC, T4F #### [place] [address] USAPlatelets (Bld) [#/Vol]332 10*3/jTWbsttl733-510Hyc [facility] Physician GroupComment on above:Performed By: #### MG, TSH3, CMP, DIFF CBC, T4F #### [place] [address] USARBC (Bld) [#/Vol]1.72 10*6/uLLow3.60-5.00The [facility] Physician GroupComment on above:Performed By: #### MG, TSH3, CMP, DIFF CBC, T4F #### [place] [address] USAWBC (Bld) [#/Vol]10.9 10*3/uLNormal3.8-11.6The [facility] Physician GroupComment on above:Performed By: #### MG, TSH3, CMP, DIFF CBC, T4F #### [place] [address] USAEosinophils Auto (Bld) [#/Vol]Ordered By: Dale Mckeon on 97-51-3993Iedzacojrxy (Bld) [#/Vol]N/[facility] Eosinophils/100 WBC Auto (Bld)Ordered By: Dale Mckeon on 11-18-2023 Eosinophils/100 WBC (Bld)N/[facility] HospitalFree T4 (Free Thyroxine)on 83-36-1942Octx T4 [Mass/Vol]1.10 ng/dLNormal0.61-1.12The [facility] Physician GroupComment on above:Performed By: #### CBCNO, MG #### [place] [address] USAGlobulin Calc (S) [Mass/Vol]Ordered By: Dale Mckeon on 71-17-2018Iqnaicfl (S) [Mass/Vol]1.5 g/dLMercy Health Urbana Hospital Hemoglobin and Hematocriton 53-98-8497Zlssydalnw (Bld) [Volume fraction]22.2 % Low34.0-46.4The [facility] Physician GroupComment on above:Result Comment: PERFORMED BY: [place] [address] PATHOLOGIST CLINICAL COUNSELOR EVY GARCIA M.D.Performed By: #### CBCNO, MG #### [place] [address] USAHemoglobin (Bld) [Mass/Vol]7.7 g/dLLow11.8-15.4The [facility] Physician GroupComment on above:Performed By: #### CBCNO, MG #### [place] [address] USALeukoReduced RBCon 28-41-9777VupgpIqzjqms RBCTRANSFUSED 11/18/23 1440NormalThe [facility] Physician GroupLymphocytes Auto (Bld) [#/Vol] Ordered By: Dale Mckeon on 15-89-7071Cyudenvogtr (Bld) [#/Vol][facility] CenterLymphocytes/100 WBC Auto (Bld)Ordered By: Dale Mckeon on 75-69-4232Itucbawtiyj/100 WBC (Bld)[facility] Magnesiumon 36-69-9461Fxhjkgaeb [Mass/Vol]1.6 mg/dLLow1.9-2.7The [facility] Physician GroupComment on above:Performed By: #### MG, TSH3, CMP, DIFF CBC, T4F #### [facility] [address] [place] [address] USAMonocytes Auto (Bld) [#/Vol]Ordered By: Dale Mckeon on 96-48-1657Kfjwdulbm (Bld) [#/Vol][facility] Monocytes/100 WBC Auto (Bld)Ordered By: Dale Mckeon on 53-70-5429Vshkkfhqa/100 WBC (Bld)[facility] HospitalNeutrophils Auto (Bld) [#/Vol] Ordered By: Dale Mckeon on 15-37-7609Kjqkdukxbyh (Bld) [#/Vol][facility] HospitalNeutrophils/100 WBC Auto (Bld)Ordered By: Dale Mckeon on 93-55-9544Fwjrmebuzsm/100 WBC (Bld)[facility] Nucleated erythrocytes [Presence] in Blood by Automated countOrdered By: Dale Mckeon on 06-45-8825Drmntxiun RBC Auto Ql (Bld)[facility] HospitalPlatelet adequacy [Presence] in Blood by Light microscopyOrdered By: Dale Mckeon on 96-53-9090Ytdkomibn LM Ql (Bld)[facility] HospitalPlatelet morphology finding [Identifier] in BloodOrdered By: Dale Mckeon on 65-80-5769Kfzivxpi morphology finding Nom (Bld)[facility] HospitalProtein [Mass/volume] in Serum or PlasmaOrdered By: Dale Mckeon on 47-92-1195Jqtbekq [Mass/Vol]3.9 g/dL6.4-8.9[facility]rbana HospitalRBC morphologyOrdered By: Dale Mckeon on 92-04-9107JUB morphology finding Nom (Bld)N/AFMercer County Community Hospitalerum or plasma albumin/globulin mass ratioOrdered By: Dale Mckeon on 11-18-2023 Albumin/Globulin [Mass ratio]1.6 {ratio}[facility]rbana HospitalThyroid Stimulating Hormoneon 13-85-1299AEY Qn5.61 m[IU]/LHigh0.45-5.33The [facility] Physician GroupComment on above:Result Comment: PERFORMED BY: [facility] [address] [place] [address] PATHOLOGIST CLINICAL COUNSELOR EVY GARCIA M.D.Performed By: #### CBCNO, MG #### [place] [address] USAThyrotropin [Units/volume] in Serum or PlasmaOrdered By: Frantz Nieves on 60-52-6747CZN Qn5.61 m[IU]/L0.45-5.33[facility]rbana HospitalThyroxine (T4) free [Mass/volume] in Serum or PlasmaOrdered By: Frantz Nieves on 98-96-6397Fqif T4 [Mass/Vol]1.10 ng/dL0.61-1.12[facility]rbana HospitalType and Screenon 85-25-7115QLN and Rh group Nom (Bld)Blood group A Rh(D) positiveNormalThe [facility] Physician GroupComment on above:Order Comment: Transfuse now? Y Number of units to transfuse now? 1 Transfuse now? Y Number of units to transfuse now? 1 Transfuse now? Y Number of units to transfuse now? 1 Transfuse now? Y Number of units to transfuse now? 1WBC Auto (Bld) [#/Vol]Ordered By: Dale Mckeon on 19-66-5830BMG (Bld) [#/Vol]10.9 10*3/uL3.8-11.6FCleveland Clinic Medina HospitalFolate [Mass/volume] in Serum or PlasmaOrdered By: Dale Mckeon on 39-78-7838Tozmqt [Mass/Vol]15.0 ng/mL>5.9[facility] Comment on above:Folate reference range: >5.9 ng/mlThe WHO technical consultation on folate and vitamin r59pvtctqhqxcip has determined that folate concentrations lessthan 4 ng/ml are considered deficient.Hemoglobin and Hematocriton 84-34-5462Unhkwtalmf (Bld) [Volume fraction]20.2 %Low34.0-46.4The [facility] Physician GroupComment on above:Result Comment: PERFORMED BY: [place] [address] PATHOLOGIST CLINICAL COUNSELOR EVY GARCIA M.D.Performed By: #### CBCNO, MG #### [place] [address] USAHemoglobin (Bld) [Mass/Vol]6.9 g/dLLow11.8-15.4The [facility] Physician GroupComment on above:Performed By: #### CBCNO, MG #### [place] [address] USAHematocrit (Bld) [Volume fraction]21.5 %Low34.0-46.4The [facility] Physician GroupComment on above:Result Comment: PERFORMED BY: [place] [address] PATHOLOGIST CLINICAL COUNSELOR EVY GARCIA M.D.Performed By: #### CBCNO, MG #### [place] [address] USAHemoglobin (Bld) [Mass/Vol]7.3 g/dLLow11.8-15.4The [facility] Physician GroupComment on above:Performed By: #### CBCNO, MG #### [place] [address] USAVit. B12/Folate Profileon 27-21-7699Jalteozmf (Vitamin B12) [Mass/Vol]816 pg/qMZbtzhq303-702Pzn [facility] Physician GroupComment on above:Performed By: #### CBCNO, MG #### [facility] [address] [place] [id number] VYMHmtlki89.0 ng/mLNormal>5.9The [facility] Physician Group Comment on above:Result Comment: Folate reference range: >5.9 ng/ml The WHO technical consultation on folate and vitamin b12 deficiencies has determined that folate concentrations less than 4 ng/ml are considered deficient. PERFORMED BY: [facility] [address] [place] [address] PATHOLOGIST CLINICAL COUNSELOR EVY GARCIA M.D.Performed By: #### CBCNO, MG #### [facility] [address] [place] [id number] [facility] HOSPITALVitamin B12 ser/plasOrdered By: Dale Mckeon on 11-17-2023 Cobalamin (Vitamin B12) [Mass/Vol]816 pg/wW036-488IyqgmvayhMercy Health Urbana HospitalMM TOMOSYNTHESIS SCREENING BIon 13-65-45[place] [address] Mammography Report Signed Patient: Jenny Ewing MR#: [id number] : 1950 Acct:[id number] Age/Sex: 72 / F ADM Date: 07/30/23 Loc: MAMMO Attending Dr: CATRACHO SHERIFF Ordering Physician: CATRACHO SHERIFF Results: Date of Service: 07/30/23 Follow Up: Procedure(s): MM tomosynthesis screening BI Accession Number(s): [id number] cc: CATRACHO SHERIFF Patient Name: JENNY EWING MR#: [id number] : 1950 Exam Date: 07/30/2023 Ordering Doctor: [...] Treatments None Family Cancers None LOCATION: [facility] BREAST COMPOSITION: Almost entirely fatty. FINDINGS: DIAGNOSTIC [...] PALPABLE LUMP SHOULD BE BIOPSIED. Dictated by: Chika Giordano MD on 07/30/2023 at 12:41 Approved by: Chika Giordano MD on 07/30/2023 at 12:42 Dictated By: Chika Giordano M.D. Signed By: 07/30/23 1243 DD/ 1242 TD/TT: [employer]:TBHRadiology, Radiologist, - 07/30/2023 [place] [address] Mammography Report Signed Patient: Jenny Ewing MR#: [id number] : 1950 Acct:[id number] Age/Sex: 72 / F ADM Date: 07/30/23 Loc: MAMMO Attending Dr: CATRACHO SHERIFF Ordering Physician: CATRACHO SHERIFF Results: Date of Service: 07/30/23 Follow Up: Procedure(s): MM tomosynthesis screening BI Accession Number(s): [id number] cc: CATRACHO SHERIFF Patient Name: JENNY EWING MR#: [id number] : 1950 Exam Date: 07/30/2023 Ordering Doctor: [...] Treatments None Family Cancers None LOCATION: [facility] BREAST COMPOSITION: Almost entirely fatty. FINDINGS: DIAGNOSTIC [...] PALPABLE LUMP SHOULD BE BIOPSIED. Dictated by: Chika Giordano MD on 07/30/2023 at 12:41 Approved by: Chika Giordano MD on 07/30/2023 at 12:42 Dictated By: Chika Giordano M.D. Signed By: 07/30/23 1243 DD/ 1242 TD/TT: [employer]: [facility] HospitalRadiology Study observation (narrative)[facility] TOMOSYNTHESIS SCREENING BIOrdered By: Radiologist Radiology on 95-83-3453X[employer]U [employer] Work Phone: XR DEXA AXIAL SKELETONon 90-32-3360ZxmDenise [place] [id number] XRay Report Signed Patient: Jenny Ewing MR#: [id number] : 1950 Acct:[id number] Age/Sex: 72 / F ADM Date: 07/30/23 Loc: MAMMO Attending Dr: CATRACHO SHERIFF Ordering Physician: CATRACHO SHERIFF Date of Service: 07/30/23 Procedure(s): XR DEXA axial skeleton Accession Number(s): [id number] cc: CATRACHO SHERIFF [address] [address] Patient Name: JENNY EWING MRN: [id number] date: 1950 Sex: F Assigned Patient Location: MAMMO Current Patient Location: MAMMO Accession/Order Number: [id number] Exam Date: 07/30/2023 10:00 Report Date: 07/30/2023 [...] High fracture risk Electronically authenticated by: CHIKA GIORDANO Date: 07/30/2023 12:01 Dictated By: Chika Giordano M.D. Signed By: 07/30/23 120 DD/ 120 TD/TT: [employer]:TBHRadiology, Radiologist, - 07/30/2023 [facility] [place] [id number] XRay Report Signed Patient: Jenny Ewing MR#: [id number] : 1950 Acct:[id number] Age/Sex: 72 / F ADM Date: 07/30/23 Loc: MAMMO Attending Dr: CATRACHO SHERIFF Ordering Physician: CATRACHO SHERIFF Date of Service: 07/30/23 Procedure(s): XR DEXA axial skeleton Accession Number(s): [id number] cc: CATRACHO SHERIFF [address] [address] Patient Name: JENNY EWING MRN: [id number] date: 1950 Sex: F Assigned Patient Location: [facility] Current Patient Location: [facility] Accession/Order Number: [id number] Exam Date: 07/30/2023 10:00 Report Date: 07/30/2023 [...] High fracture risk Electronically authenticated by: CHIKA GIORDANO Date: 07/30/2023 12:01 Dictated By: Chika Giordano M.D. Signed By: 07/30/23 1204 DD/ 1201 TD/TT: [employer]: [facility] HealthcareRadiology Study observation (narrative)[facility] HealthcareXR DEXA AXIAL SKELETONOrdered By: Radiologist Radiology on 83-33-3604XJJS [employer] Work Phone: REVERSE T3on 67-12-5705Pddfyla T3, Serum23.1 ng/dL Normal9.2-24.1The [facility] HealthcareComment on above:Result Comment: This test was developed and its performance characteristics determined by [employer]. It has not been cleared or approved by the Food and Drug Administration.Performed By: #### REVRT3 #### [facility] [address] [place] [address] Dr. Jin HodgesT3, TOTAL (TRIIODOTHYRONINE)on 93-75-6373S3, SCNDL218 ng/dLNormal 71-180The [facility] HealthcareComment on above:Performed By: #### [id number] #### [facility] [address] [place] [address] Dr. Jin Thomas T3on 26-47-9430VTOF T32.98 pg/mlLNormal2.18-3.98The [facility] HealthcareComment on above:Performed By: #### FT3, TSH #### [facility] [address] [place] [address] Dr. Jin Thomas T4on 95-84-5569Wnti T4 [Mass/Vol]0.81 ng/dLNormal0.76-1.46 The [facility] HealthcareComment on above:Performed By: #### FT4 #### [facility] [address] [place] [address] Dr. Jin Butcher 48-74-6956GHC5.561 uIU/mLNormal0.358-3.740The [facility] on above:Performed By: #### FT3, TSH #### [facility] [address] [place] [address] Dr. Jin Concepcion T3on 37-68-6508Tzuyexn T3, Serum21.3 ng/dLNormal9.2-24.1 [facility] on above:Result Comment: This test was developed and its performance characteristics determined by [employer]. It has not been cleared or approved by the Food and Drug Administration.Performed By: #### REVRT3 #### [facility] [address] [place] [address] Dr. Jin HodgesT3, TOTAL (TRIIODOTHYRONINE)on 36-11-9875B4, RLFGJ531 ng/dLNormal 71-180[facility] on above:Performed By: #### [id number] #### [facility] [address] [place] [address] Dr. Jin Thomas T3on 96-53-3672TWNV T33.10 pg/mlLNormal2.18-3.98[facility] on above:Performed By: #### TSH, FT3 #### [facility] [address] [place] [address] Dr. Jin Thomas T4on 07-86-5007Rkdz T4 [Mass/Vol]0.92 ng/dLNormal0.76-1.46 [facility] on above:Performed By: #### FT4 #### [facility] [address] [place] [address] Dr. Jin Butcher 00-95-7556LSZ7.133 uIU/mLCritically low0.358-3.740[facility] on above:Performed By: #### TSH, FT3 #### [facility] [address] [place] [address] Dr. Jin Hodges Vital Signs Date TimeVital SignValuePerforming SfupxtlttBdrzdjwo33-52-8538 09:09-0400Body phmxte337.6 Carolin Sheriff MD Work Phone: [phone] [place], [place] [address]Qiwxjemtcs30-15-2484 09:09-0400Body mass index (BMI) [Ratio]27.81 kg/g1PsekxiCatracho Sheriff MD Work Phone: [phone])[address]10-30-2025 09:09-0400Body oiijuu42.48 kgCatracho Sheriff MD Work Phone: [phone])[address]10-30-2025 09:09-0400Diastolic blood asqgtkfq33 mm[Hg]Catracho Sheriff MD Work Phone: [phone] [place], [place] [address]Aloskorbjj02-85-2489 09:09-0400Heart nagk235 /min Catracho Sheriff MD Work Phone: [phone] HealthcareComment on above:after resting 5 min 05-25-2025 09:09-9384XcK9% (BldA) [Mass fraction]90 %Catracho Sheriff MD Work Phone: [phone] [place] [address] HealthcareComment on above:After resting 5 vrzmodp43-63-0870 09:09-0400Systolic blood xzagkswt100 mm[Hg]Catracho Sheriff MD Work Phone: [phone])[address]09-10-2025 13:58-0400Body skvwlo078.6 Carolin Sheriff MD Work Phone: [phone] [place], [place] [address]Urymschhlz20-50-0225 13:58-0400Body mass index (BMI) [Ratio]27.98 kg/g4JacmfzCatracho Sheriff MD Work Phone: [phone] [place], [place] [address]Gktdkbijri07-27-6723 13:58-0400Body reojsf88.94 kgCatracho Sheriff MD Work Phone: [phone] [place], [place] [address]Svodskgpsc89-06-5288 11:41-0400Body esqrht068.6 Carolin Sheriff MD Work Phone: [phone]09-08-2025 11:41-0400Body mass index (BMI) [Ratio]27.98 kg/k5NffdxgCatracho Sheriff MD Work Phone: [facility] HospitalLnjfdzirtz19-63-3876 11:41-0400Body tawmkc24.94 kgCatracho Sheriff MD Work Phone: [facility] HospitalBqpzdxqcyq13-63-7728 13:55-0400Body litsha859.6 Carolin Sheriff MD Work Phone: [facility] HospitalEcbgcwvtrf52-68-3051 13:55-0400Body mass index (BMI) [Ratio]25.23 kg/i6NacouxCatracho Sheriff MD Work Phone: [phone] HospitalCdqhbhfujn45-91-2451 13:55-0400Body .68 kgCatracho Sheriff MD Work Phone: [phone] HospitalTwrdrvydyu09-15-7641 13:55-0400Heart rate89 /min Catracho Sheriff MD Work Phone: [phone] HospitalJabftsaddw40-70-0599 13:55-1953JuI4% (BldA) [Mass fraction]90 %Catracho Sheriff MD Work Phone: [facility] HospitalNixrlwefmj87-08-5628 14:25-0500Body umyiee751.[address] [place], [place] 2121201-02-2025 14:25-0500Body mass index (BMI) [Ratio]24.2 kg/m2Stcz [address] [place], [place] 2121201-02-2025 14:25-0500Body weight 63.[address] [place], [place] 2121212-02-2024 14:29-0500Body qezjwy820.6 cm Stcz [facility]12-02-2024 14:29-0500Body mass index (BMI) [Ratio] 25.4 kg/m2Stcz [address] [place], [place] 2873212-02-2024 14:29-0500Body azbzrk17.[address] [place], [place] 2873210-07-2024 08:54-0400Body .6 Carolin Sheriff MD Work Phone: [facility] HospitalPzmzzqakqk79-91-6165 08:54-0400Body mass index (BMI) [Ratio]24.2 kg/z7GrykqbCatracho Sheriff MD Work Phone: [phone])[address] [place], [place] 3021410-07-2024 08:54-0400Body juwwzp33.96 kgCatracho Sheriff MD Work Phone: [phone] [place], [place] 3021410-03-2024 08:56-0400Body fjiocj390.6 Carolin Sheriff MD Work Phone: [phone] [place], [place] 3021410-03-2024 08:56-0400Body mass index (BMI) [Ratio]24.2 kg/q5ZatkycCatracho Sheriff MD Work Phone: [phone])[address] [place], [place] 3021410-03-2024 08:56-0400Body cajoye54.96 kgCatracho Sheriff MD Work Phone: [phone] [place] [address]-01-2024 16:21-0400Body uqbmcp966.6 Carolin Sheriff MD Work Phone: [phone])[address] [place], [place] 3021410-01-2024 16:21-0400Body mass index (BMI) [Ratio]24.2 kg/a2OznxmkCatracho Sheriff MD Work Phone: 1(245)[address] [place], [place] 3021410-01-2024 16:21-0400Body pbejoi53.96 kgCatracho Sheriff MD Work Phone: [phone])[address] [place], [place] 3021409-19-2024 09:26-0400Body kpahbd985.6 Carolin Sheriff MD Work Phone: [phone] [place], [place] 3021409-19-2024 09:26-0400Body mass index (BMI) [Ratio]24.2 kg/e2VhpcyiCatracho Sheriff MD Work Phone: [phone] [place] [address]-19-2024 09:26-0400Body ehbwmn24.96 kgCatracho Sheriff MD Work Phone: [phone])[address] [place], [place] 3021409-03-2024 15:37-0400Body vshwue023.[address] [place], [place] [address]109-03-2024 15:37-0400Body mass index (BMI) [Ratio]24.2 kg/m2Stcz [address] [place], [place] [address]109-03-2024 15:37-0400Body weight 63.96 kgStcz 4[facility]07-05-2024 13:20-0400Diastolic blood wcahvdgd53 mm[Hg]Nicky Ugarte MD Work Phone: [facility]07-05-2024 13:20-0400Heart rate73 /Art Ugarte MD Work Phone: [facility]07-05-2024 13:20-0400 Respiratory rate17 /Art Ugarte MD Work Phone: [facility]07-05-2024 13:20-2967YhJ8% (BldA) [Mass fraction]89 %Nicky Ugarte MD Work Phone: [facility]07-05-2024 13:20-0400Systolic blood hfpwibfm725 mm[Hg]Nicky Ugarte MD Work Phone: [facility]07-05-2024 12:56-0400Body hhaxkndlfvm55.71 [degF]Nicky Ugarte MD Work Phone: [facility]07-05-2024 10:57-0400Body fznzil445.6 Sabino Ugatre MD Work Phone: [facility]07-05-2024 10:57-0400Body mass index (BMI) [Ratio]24.19 kg/z9SdoqwNicky Ugarte MD Work Phone: [facility]07-05-2024 10:57-0400Body qdouju62.96 kgNicky Ugarte MD Work Phone: [facility]05-09-2024 15:31-0400Heart rate69 /Rach De La Cruz MD Work Phone: [facility]05-09-2024 15:31-6077NkW4% (BldA) [Mass fraction]94 %Ray De La Cruz MD Work Phone: [phone]05-09-2024 11:02-0400Body gvoezcrnntf40.01 [degF]Ray De La Cruz MD Work Phone: 1(854)210-JENNIFER [facility]05-09-2024 11:02-0400Diastolic blood tlbuvmkp90 mm[Hg]Ray De La Cruz MD Work Phone: 1(088)181-JENNIFER [facility]05-09-2024 11:02-0400 Respiratory rate18 /minRay De La Cruz MD Work Phone: 1(667)288-[facility]ER [facility]05-09-2024 11:02-0400Systolic blood imfwciwk752 mm[Hg]Ray De La Cruz MD Work Phone: 1(873)268-[facility]ENN[facility]ER [facility]05-08-2024 06:00-0400Body mass index (BMI) [Ratio]34.38 kg/r8JvhukwzRay De La Cruz MD Work Phone: 1(506)639-[facility]05-08-2024 06:00-0400Body kgRay De La Cruz MD Work Phone: 1(549)355-[facility]05-06-2024 15:24-0400Body otmkhz102 cmRay De La Cruz MD Work Phone: [phone])856-[facility]04-27-2024 15:01-0400Body onjoxoxswgd55.7 [degF]MD Catracho Sheriff Work Phone: [facility]04-27-2024 15:01-0400 Diastolic blood blfbftba88 mm[Hg]MD Catracho Sheriff Work Phone: [facility]04-27-2024 15:01-0400 Heart rate73 /minMD Catracho Sheriff Work Phone: [facility]04-27-2024 15:01-0400 Respiratory rate20 /minMD Catracho Sheriff Work Phone: [facility]04-27-2024 15:01-0400 SaO2% (BldA) [Mass fraction]96 %MD Catracho Sheriff Work Phone: [facility]04-27-2024 15:01-0400 Systolic blood uhohcact428 mm[Hg]MD Catracho Sheriff Work Phone: [facility]04-27-2024 05:33-0400 Body .5 kgMD Catracho Sheriff Work Phone: [facility]04-26-2024 13:22-0400 Body wdkrot206.02 cmMD Catracho Sheriff Work Phone: [facility]04-25-2024 00:00-0400 Inhaled oxygen flow rate2 L/minMD elizabeth Sheriff Work Phone: [facility]01-30-2024 10:17-0500 Body umvyse457.6 cmEfermín Sheriff MD Work Phone: [facility] HospitalHymxksamgp76-84-8955 10:17-0500Body mass index (BMI) [Ratio]25.06 kg/u8LeoaymCatracho Sheriff MD Work Phone: [facility] HospitalUlksmsomhe42-42-8062 10:17-0500Body .22 kgCatracho Sheriff MD Work Phone: [facility] Encounters Encounter DateEncounter TypeCare ProviderFacilityStart: 05-25-2025 End: 50-41-6673Uewbfh flowsheetCatracho Sheriff MD Work Phone: [facility] [address] Family MedicineStart: 05-25-2025 End: 13-24-3107Ebeeqz flowsheetCatracho Sheriff MD Work Phone: noNC [address] Family MedicineStart: 05-25-2025 End: 47-09-0730Xzwouek encounter procedureCatracho Sheriff MD Work Phone: [facility] [address] Family MedicineComment on above: Encounter for Medicare annual wellness exam (Primary Dx); Advance directive discussed with patient; Encounter for screening for other disorder; Screening for alcohol problem; Polypharmacy; Chronic respiratory failure with hypoxia (HCC); Mucopurulent chronic bronchitis (HCC); Dependence on supplemental oxygenStart: 05-25-2025 End: 98-79-3312xcxzlkvgmnPVRGXDAntoinette Michelle AvailableStart: 04-20-2025 End: 97-26-0636Ciretp outpatient visit 15 minutesCatracho Sheriff MD Work Phone: [facility] [address] [facility] MedicineComment on above:Stasis dermatitis of both legs; Bilateral lower leg cellulitisStart: 04-20-2025 End: 78-83-9251gennrtdeoyCOCNLG J HEMEYERNot AvailableStart: 04-20-2025 End: 84-10-1616Spvyez Jacoby Sheriff MD Work Phone: [facility] [address] [facility] MedicineStart: 04-20-2025 End: 27-40-9420Hjnpuo Jacoby Sheriff MD Work Phone: [facility] [address] [facility] MedicineStart: 04-11-2025 End: 29-28-1142Lostja Jacoby Sheriff MD Work Phone: [facility] [address] [facility] MedicineStart: 04-11-2025 End: 17-15-7077Hhvmvy Jacoby Sheriff MD Work Phone: [facility] [address] [facility] MedicineStart: 04-11-2025 End: 23-56-9157Htyyuwe encounter procedureCatracho Sheriff MD Work Phone: [facility] [address] [facility] MedicineComment on above:Stasis dermatitis of both legs; Bilateral lower leg cellulitis; Venous (peripheral) insufficiencyStart: 04-11-2025 End: 27-27-7673dbuaedjyrxZJAQMCAntoinette Michelle AvailableStart: 04-05-2025 End: 59-71-8483Olsiwr Jacoby Sheriff MD Work Phone: [facility] [address] [facility] [place] MedicineStart: 04-05-2025 End: 06-58-4227Sldqpr Jacoby Sheriff MD Work Phone: [facility] [address] [facility] [place] MedicineStart: 04-05-2025 End: [id number] outpatient visit 15 minutesCatracho Sheriff MD Work Phone: [facility] [address] [facility] [place] MedicineComment on above: Bilateral lower leg cellulitis (Primary Dx); Stasis dermatitis of both legs; Venous (peripheral) insufficiency; PolypharmacyStart: 04-05-2025 End: [id number] J HEMEYERNot AvailableStart: 04-03-2025 End: 20-71-0078Fkgikb flowsheetCatracho Sheriff MD Work Phone: [facility] [address] [facility] [place] MedicineStart: 04-03-2025 End: [id number] flowsheetCatracho Sheriff MD Work Phone: noms Chad Ruvalcaba [facility] MedicineStart: 04-03-2025 End: 86-58-3780auwtfyonzgXBMJZN J HEMEYERNot AvailableStart: 04-03-2025 End: 02-20-6426Gjqkcg outpatient visit 25 minutesEdelizabeth Sheriff MD Work Phone: no Chad Peg [facility] HospitalComment on above: Postsurgical hypothyroidism (Primary Dx); ESS (euthyroid sick syndrome); Chronic fatigue; Chronic pain syndrome; Spondylosis of lumbar region without myelopathy or radiculopathy; Osteopenia of spine; Failed back syndrome of lumbar spine; Former smoker; Overweight; Generalized anxiety disorder ; Sleep arousal disorder; Stasis dermatitis of both legsStart: 03-29-2025 End: 07-68-3980Parcvrgqc Result Alexandrea Sheriff MD Work Phone: noms External Department UnsolicitedStart: 03-29-2025 End: 93-72-6495Hshwixgvh Result Alexandrea Sheriff MD Work Phone: noms External Department UnsolicitedStart: 03-08-2025 End: 28-94-7605MpkbwtUiwpal Wilkinson RN Work Phone: NOJQ POPULATION HEALTHComment on above:Chronic pain syndrome (Primary Dx); Paroxysmal atrial fibrillation (HCC); FibromyalgiaStart: 02-08-2025 End: 07-82-7927Jxorzvgkf encounterApoorva Bruno MACHINE TOOL OPERATOR Work Phone: noMS POPULATION HEALTHStart: 01-19-2025 End: 96-26-3846GeicfnNgqrpv Wilkinson RN Work Phone: noms POPULATION HEALTHComment on above:Peripheral edema (Primary Dx); Duodenal stricture (HHS-HCC)Start: 01-09-2025 End: 19-40-3350Yvqmql outpatient visit 40 minutesEdelizabeth Sheriff MD Work Phone: NOMS CI FM 100Comment on above:Closed head injury, sequela; Fall at home, subsequent encounter; Encounter for examination following treatment at hospital; Chronic pain syndrome; Generalized anxiety disorder ; Sleep arousal disorder; Postsurgical hypothyroidism ; ESS (euthyroid sick syndrome); Chronic fatigueStart: 01-09-2025 End: 90-39-3669akseaxbcnjKLHBKG J HEMEYERNot AvailableStart: 12-29-2024 End: 36-03-5425IfqsfnQzqbpt J Hemeyer MD Work Phone: NOMS CI FM 100Comment on above:Chronic pain syndrome Start: 10-04-2024 End: 81-25-3107efpncprnddBSYQQFAntoinette Michelle AvailableStart: 09-19-2024 End: 49-65-1439XbdcljEhoqru J Hemeyer MD Work Phone: NOMS CI FM 100Comment on above:Generalized anxiety disorder (CMS/HCC)Start: 07-28-2024 End: 64-91-6361ddhltiqfveVOPVTXAntoinette LuaBlanchard Valley Health Systemtart: 07-28-2024 End: 03-01-2413Asjihapozu hospital visit by physicianStcz Pat 5STCZ Pre-Admit TestingStart: 07-13-2024 End: 06-47-7132Heaazk Jacoby Sheriff MD Work Phone: noMS CI FM 100Start: 07-13-2024 End: 83-03-5236Tqjmww flowsheetCatracho Sheriff MD Work Phone: NOMS CI FM 100Start: 07-13-2024 End: 69-92-5337Rqjfpr outpatient visit 25 minutesEdelizabeth Sheriff MD Work Phone: noms CI FM 100Comment on above:Generalized anxiety disorder (CMS/HCC) (Primary Dx); Major depressive disorder, recurrent, in partial remission (HCC) (CMS/HCC); Chronic pain syndrome; Left maxillary sinusitis; Arthritis of both knees; Fibromyalgia; Spondylosis of lumbar region without myelopathy or radiculopathy; Duodenal stricture; Failed back syndrome of lumbar spine; Peripheral edema; Postsurgical hypothyroidism (CMS/HCC); PolypharmacyStart: 07-13-2024 End: 51-42-1998nfbyxsxodvWCVCFG J HEMEYERNot AvailableStart: 07-07-2024 End: 55-93-7441Lwhdnfhlc Alexandrea Sheriff MD Work Phone: NOMS CI FM 100Start: 07-06-2024 End: 24-41-5006Phgdqlumj Result Alexandrea Sheriff MD Work Phone: noms External Department UnsolicitedStart: 07-06-2024 End: 73-53-3231Xvshltmvp Result Alexandrea Sheriff MD Work Phone: NOZY External Department UnsolicitedStart: 06-27-2024 End: 12-99-2981gjpxedqpimXEHHBY J HEMEYERMerBlanchard Valley Health Systemtart: 06-27-2024 End: 15-12-8081Hppvdsquje hospital visit by physicianStcz Pat 4STCZ Pre-Admit TestingStart: 06-21-2024 End: 91-39-7412Nwzkbprqk Alexandrea Sheriff MD Work Phone: NOMS CI FM 100Start: 06-15-2024 End: 94-33-2239Bntzvqyci Alexandrea Sheriff MD Work Phone: NOMS CI FM 100Start: 06-11-2024 End: 72-52-0947JacmnaRcvhre J Hemeyer MD Work Phone: NOMS BNS FMComment on above:Acquired hypothyroidism (CMS/HCC)Start: 05-02-2024 End: 82-21-0270Jcarbi flowsKhushi Sheriff MD Work Phone: NOMS CI FM 100Start: 05-02-2024 End: 91-12-0683Uuijaa flowsKhushi Sheriff MD Work Phone: NOMS CI FM 100Start: 05-02-2024 End: 12-59-4501Pemvfw outpatient visit 15 minutesCatracho Sheriff MD Work Phone: NOMS CI FM 100Comment on above:Stasis dermatitis of both legs (Primary Dx); Non-pressure chronic ulcer of right lower leg, limited to breakdown of skin (CMS/HCC); Postsurgical hypothyroidism (CMS/HCC); Acute anemia; Hypokalemia; Chronic pain syndromeStart: 04-28-2024 End: 19-88-4415Uoebmp flowsKhushi Sheriff MD Work Phone: NOMS CI FM 100Start: 04-28-2024 End: 93-62-5693Lylgsv flowsKhushi Sheriff MD Work Phone: NOMS CI FM 100Start: 04-28-2024 End: 15-14-2754Uqacsm outpatient visit 15 minutesEdelizabeth Sheriff MD Work Phone: NOMS CI FM 100Comment on above:Venous stasis ulcer of other part of lower leg limited to breakdown of skin without varicose veins, unspecified laterality (CMS/HCC) (Primary Dx); Cellulitis of lower extremity, unspecified laterality; Venous stasis dermatitis of both lower extremitiesStart: 04-26-2024 End: 06-32-3833Jzyshk outpatient visit 25 minutesEdelizabeth Sheriff MD Work Phone: NOMS CI FM 100Comment on above:Cellulitis of lower extremity, unspecified laterality (Primary Dx); Abscess of left lower leg; Venous ulcer of lower extremity due to chronic peripheral venous hypertension (HCC) (CMS/HCC); Non-pressure ulcer of lower extremity, limited to breakdown of skin, unspecified laterality (CMS/HCC)Start: 04-26-2024 End: 45-73-2145Mqhvuv Jacoby Sheriff MD Work Phone: NOMS CI FM 100Start: 04-26-2024 End: 41-16-7258Zkdzie Jacoby Sheriff MD Work Phone: NOMS CI FM 100Start: 04-26-2024 End: 62-54-0081Rirhxgvc Result Alexandrea Sheriff MD Work Phone: NOMS External Department UnsolicitedStart: 04-14-2024 End: 46-31-7398Skbkrz Jacoby Sheriff MD Work Phone: NOMS CI FM 100Start: 04-14-2024 End: 15-12-4358Owjssh Jacoby Sheriff MD Work Phone: NOMS CI FM 100Start: 04-14-2024 End: 18-66-8764Bfjayw outpatient visit 40 minutesCatracho Sheriff MD Work Phone: NOMS CI FM 100Comment on above:Chronic pain syndrome (Primary Dx); Fibromyalgia; Primary osteoarthritis, left ankle [...] to breakdown of skin without varicose veins (CMS/HCC)Start: 04-12-2024 End: 83-93-1175mpxkvlmrfsIRRCEL J HEMEYERSt. Vincent Hospitaltart: 03-29-2024 End: 51-07-7745atlbhcuqdmYWGCVU J [facility]EYERKind[facility] HospitalStart: 03-29-2024 End: 21-40-8009Nnnguzmevr hospital visit by physicianStcreno Mosley 4STCZ Pre-Admit TestingStart: 01-29-2024 End: 60-61-2549bgdzouwmlwTRFMY [facility]tart: 01-29-2024 End: 47-98-7780Dczlcwmxdp hospital visit by physicianNicky Ugarte MD Work Phone: stcz ENDOComment on above:Duodenal ulcerStart: 01-27-2024 End: 68-08-4791Qphhpsted Result EncounterEdelizabeth Sheriff MD Work Phone: NOIU External Department UnsolicitedStart: 01-27-2024 End: 88-10-7172Tfrenobam Result EncounterEdelizabeth Sheriff MD Work Phone: noms External Department UnsolicitedStart: 01-18-2024 End: 86-77-8697zbyfycgrooAMWWYV HEMEYERSt. Vincent Hospitaltart: 11-25-2023 End: 82-63-2089Xayrclgpjq and management of inpatientDIOOR [facility] Centertart: 11-25-2023 End: 77-44-9086Nclzumylew and management of inpatientRay De La Cruz MD Work Phone: stvz Car 2- StepdownComment on above:Acute anemia (Primary Dx)Start: 85-67-9097Dre-patient / Non-visitMD Catracho Sheriff Work Phone: [facility] Work Phone: Start: 11-17-2023 End: 26-42-4097Vwsfuvyrge and management of inpatientCatracho Sheriff [facility]: 11-17-2023 End: 02-48-2567Gledhzuqeb and management of inpatientMD Edelizabeth Sheriff Work Phone: [facility] [place] [facility] Work Phone: Start: 08-25-2023 End: 18-55-3830Hwydop outpatient visit 25 minutesCatracho Sheriff MD Work Phone: NOZV BNS FMComment on above:Chronic pain syndrome (Primary Dx); Chronic respiratory failure with hypoxia (CMS/HCC); Dependence on supplemental oxygen; Stasis dermatitis of both legs; Arthritis of both kneesStart: 07-30-2023 End: 86-76-7112Pomijrcrc Result Alexandrea Sheriff MD Work Phone: NOUN External Department UnsolicitedStart: 07-30-2023 End: 43-45-0544Sfpgitzbj Result Alexandrea Sheriff MD Work Phone: NOVZ External Department UnsolicitedStart: 08-26-2022 End: 15-55-3004nrjixyuvcyUC CATRACHO SHERIFFFacility:Z9Gqaro: 02-28-2022 End: 85-19-2850udpeombptbJA CATRACHO SHERIFFFacility:H1 Procedures DateProcedureProcedure DetailPerforming ClinicianStart: 16-54-5224WEB T3 FREE Catracho Sheriff MD Work Phone: Start: 20-85-1245TYQ HEMOGLOBINEdelizabeth Sheriff MD Work Phone: Start: 53-92-6272Rds bact xcpt urine blood/stool aerobic isolEdelizabeth Sheriff MD Work Phone: Start: 78-08-3607Zxffl forearm 2 viewsEdelizabeth Sheriff MD Work Phone: Start: 58-46-5691FY ELBOW LT 2Mahin Sheriff MD Work Phone: Start: 11-40-4896Qmxgb of Radha Pollock MD Work Phone: Start: 76-38-0728ZTTGR METABOLIC PANEL W/ REFLEX TO MG FOR LOW Clifton Pollock MD Work Phone: Start: 12-03-2023 End: 63-40-8623Luo routine ecg w/least 12 lds w/i&rDilnoor Lois SOLORZANO Work Phone: start: 63-99-6793Yqbbm of Radha Pollock MD Work Phone: Start: 56-01-9297UIBTM METABOLIC PANEL W/ REFLEX TO MG FOR LOW Clifton Phill SOLORZANO Work Phone: Start: 83-24-2667Ngwdi count hemoglobinManasa Pollock MD Work Phone: Start: 91-41-8091Ccgdo count hemoglobinManasa Pollock MD Work Phone: Start: 12-01-2023 End: 56-20-9055WTRBAWAXKCNBLBTLMLIZMMXBBT CONTROL HEMORRHAGEManasa Pollock MD Work Phone: Start: 48-96-8106Gxngsftw screenRay De La Cruz MD Work Phone: Start: 29-18-7863XQPZD METABOLIC PANEL W/ REFLEX TO MG FOR LOW Clifton Phill SOLORZANO Work Phone: Start: 44-91-3122Ydxed count complete auto&auto difrntl wbcManasa Pollock MD Work Phone: Start: 37-50-4015Ooiyk count hemoglobinManasa Pollock MD Work Phone: Start: 63-59-5124Olvpf count hemoglobinManasa Pollock MD Work Phone: Start: 11-30-2023 End: 93-56-4877Rcrhf count hemoglobinSrinivas Annette SOLORZANO Work Phone: Start: 59-61-8261CEURKLLB SPECIMENSrinivas Annette SOLORZANO Work Phone: Start: 11-30-2023 End: 93-27-6827Rmqroevylqv of packed red blood cellsSwapnil P Stacy SOLORZANO Work Phone: Start: 00-50-1372AFENO METABOLIC PANEL W/ REFLEX TO MG FOR LOW Clifton Phill SOLORZANO Work Phone: Start: 56-59-0212Srynboj ionizedSwapnil P Stacy SOLORZANO Work Phone: Start: 42-48-5111Qeopv count hemoglobinSwapnil P Stacy SOLORZANO Work Phone: Start: 66-61-4644Xvpvj s aureus methicillin resist amp probe Yanet Pierce MD Work Phone: [phone]: 45-74-4846Xe angio abd&plvis cntrst mtrl w/wo cntrst imgSálvaro Coyle MD Work Phone: [phone]: 10-32-5211Wvyev count hemoglobinDeanna Coyle MD Work Phone: [phone]: 30-47-1369GYJGDZSJ SPECIMENSálvaro Coyle MD Work Phone: [phone]: 11-29-2023 End: 30-57-4164Epnffycjerh of packed red blood cellsDeanna Coyle MD Work Phone: Start: 02-92-9309TLGNE BANK SPECIMENSálvaro Coyle MD Work Phone: [phone]: 83-41-4502Dbaxm typing serologic Kalli Coyle MD Work Phone: Start: 18-81-4399Nc maxillofacial w/o contrast materialSálvaro Coyle MD Work Phone: Start: 32-66-4602Nfqmx of magnesiumDeanna Coyle MD Work Phone: Start: 73-50-5159UFIRO METABOLIC PANEL W/ REFLEX TO MG FOR LOW Timbo Coyle MD Work Phone: Start: 18-87-8613Lyfqybs function panelSálvaro Coyle MD Work Phone: Start: 32-34-5172Ppekfjzc Isabella De La Cruz MD Work Phone: Start: 72-57-8828SHXTX METABOLIC PANEL W/ REFLEX TO MG FOR LOW KMalissa D Eddiegrosso COMPONENT TECHNICIAN - FARM EQUIPMENT MAINTENANCE SUPERVISOR Work Phone: Start: 11-27-2023 End: 80-52-1319Loaoakmgqiu of packed red blood cellsJasmine Leong COMPONENT TECHNICIAN - FARM EQUIPMENT MAINTENANCE SUPERVISOR Work Phone: Start: 86-31-0713Bmzqw count Gunner Coyle MD Work Phone: [phone]: 46-28-1923Gvoyi count Nixon Ugarte MD Work Phone: [phone]: 31-86-6589Gizmkqxh embolization or occlusion hemorrhageDalian Tellez COMPONENT TECHNICIAN - FARM EQUIPMENT MAINTENANCE SUPERVISOR Work Phone: [phone]: 41-86-6655Rmgivhsuzr exam chest single view Deanna Coyle MD Work Phone: [phone]: 81-60-7420Hnrps count Nixon Ugarte MD Work Phone: [phone]: 68-93-5929Vwzfq of magnesiumNicky Ugarte MD Work Phone: Start: 86-89-9755MYBVU METABOLIC PANEL W/ REFLEX TO MG FOR LOW Kaitlyn Ugarte MD Work Phone: Start: 32-96-5852Qgxyr count Nixon Ugarte MD Work Phone: Start: 90-98-4904Vyurg count Nixon Ugarte MD Work Phone: Start: 61-43-3775Vrkno count Nixon Ugarte MD Work Phone: Start: 39-48-0550Rcbnz of magnesiumKathy Flores COMPONENT TECHNICIAN - FARM EQUIPMENT MAINTENANCE SUPERVISOR Work Phone: Start: 19-09-3651ZWPPJ METABOLIC PANEL W/ REFLEX TO MG FOR LOW Kaitlyn Ugarte MD Work Phone: [phone]: 66-53-7596Lhhab count Nixon Ugarte MD Work Phone: Start: 10-48-5535KHLRGHG, SEPSISNicky Ugarte MD Work Phone: Start: 88-81-6116Dswwszionr exam chest single view Aida Montemayor COMPONENT TECHNICIAN - FARM EQUIPMENT MAINTENANCE SUPERVISOR Work Phone: Start: 27-58-7844Owbiz count hemoglobinZainulabedin Jake MD Work Phone: Start: 11-25-2023 End: 90-10-2682BJQDFZHVRNOMTCCJPULWTBFECG CONTROL HEMORRHAGENicky Ugarte MD Work Phone: Start: 45-98-6351GIDGXVG, SEPSISNicky Ugarte MD Work Phone: Start: 11-25-2023 End: 88-31-6283Gyokxgudlyu of packed red blood cellsDalian Tellez COMPONENT TECHNICIAN - FARM EQUIPMENT MAINTENANCE SUPERVISOR Work Phone: Start: 11-25-2023 End: 62-28-1834Csikraaxjfb of packed red blood cellsDiana Joseph MD Work Phone: Start: 78-85-1795Pxaac count complete auto&auto difrntl wbcDiana Joseph MD Work Phone: Start: 08-40-3960Dsjyefz bacterial blood aerobic w/id isolatesDiana Joseph MD Work Phone: Start: 80-14-6843HSMZBBW, BLOOD 1Diana Joseph MD Work Phone: Start: 07-22-4201IAWTFSN, SEPSISNicky Ugarte MD Work Phone: Start: 74-17-8213Lh angio abd&plvis cntrst mtrl w/wo cntrst imgDiana Joseph MD Work Phone: Start: 57-58-5320CWJFO BANK SPECIMENRay De La Cruz MD Work Phone: Start: 69-62-1688Jedhc typing serologic Yesika Flores COMPONENT TECHNICIAN - FARM EQUIPMENT MAINTENANCE SUPERVISOR Work Phone: Start: 43-23-8696FOOHQ METABOLIC PANEL W/ REFLEX TO MG FOR LOW KSgavin Flores COMPONENT TECHNICIAN - FARM EQUIPMENT MAINTENANCE SUPERVISOR Work Phone: Start: 52-73-8366Epmpjblsmuujus Flores COMPONENT TECHNICIAN - FARM EQUIPMENT MAINTENANCE SUPERVISOR Work Phone: Start: 94-49-8296CgmvruorlsdznsbzgevkcmnwwkRI Catracho Sheriff Work Phone: Start: 02-31-4932Fjonzklx Madi SheriffComment on above:Order Comment: Transfuse now? Y Number of units to transfuse now? 1 Transfuse now? Y Number of units to transfuse now? 1 Transfuse now? Y Number of units to transfuse now? 1 Transfuse now? Y Number of units to transfuse now? 1Result Comment: PERFORMED BY: [address] [place] [address] PATHOLOGIST CLINICAL COUNSELOR EVY GARCIA M.D.Start: 57-26-8423ST TOMOSYNTHESIS SCREENING BICatracho Sheriff MD Work Phone: Start: 08-05-6697AG DEXA AXIAL SKELETONEdelizabeth Sheriff MD Work Phone: Start: 92-31-4179PbplyiyoeicCpfwfl Hemeyer MD Work Phone: Plan of Treatment DateCare ActivityDetailAuthorStart: 38-99-9514Rgggoduhi vaccinationInfluenza Vaccine (#1)NOMS HealthcareComment on above:Postponed from 03/27/2025 (Patient Refused)Start: 07-03-2025 End: 61-88-2631Bdvbhwg encounter procedureNOMS CI FM 100Start: 06-03-2025 End: 96-63-5451Sblygpopr (T4) free [Mass/volume] in Serum or PlasmaT4, free Lab Routine Postsurgical hypothyroidism Expected: 06/03/2025, Expires: 04/03/2026 [facility] Work Phone: Comment on above:Expected: 06/03/2025, Expires: 04/03/2026Start: 06-03-2025 End: 25-37-6158Svmylsbuwzpqtlgz (T3) Free [Mass/volume] in Serum or PlasmaT3, free Lab Routine Postsurgical hypothyroidism Expected: 06/03/2025, Expires: 04/03/2026NONC HealthcareComment on above:Expected: 06/03/2025, Expires: 04/03/2026Start: 05-25-2025 End: 78-64-1118Rnqhlpp encounter procedureNOSt. [facility] Hospital – Oklahoma Cityyd42 Harper StreetComment on above:Encounter for Medicare annual wellness exam; Advance directive discussed with patient; Encounter for screening for other disorder; Screening for alcohol problem; PolypharmacyStart: 04-20-2025 End: 08-04-1859Qrlnknv encounter procedureNO50 [address] StreetComment on above:Stasis dermatitis of both legs; Bilateral lower leg cellulitisStart: 04-11-2025 End: 24-32-8593Qmrvmnp encounter procedureNO50 [address] StreetComment on above:Stasis dermatitis of both legs; Bilateral lower leg cellulitis; Venous (peripheral) insufficiency; Polypharmacy; Smoker in home; OverweightStart: 04-05-2025 End: 83-09-5061Pqgbrng encounter myqxqulat88/10/2025 2:00 PM EDT Office Visit [facility] [address] [address] Catracho Sheriff MD [address] [address] Stasis dermatitis of both legsNO50 [address] StreetComment on above:Stasis dermatitis of both legsStart: 04-03-2025 End: 54-38-2233Fbakxin encounter procedureNOOU [facility] FM 100Start: 98-42-6056LRCXI- 19 Vaccine ( season)COVID-19 Vaccine ( season)NOM HealthcareStart: 21-88-8671Ipamhtoak vaccinationNONC HealthcareStart: 03-11-2025 End: 35-37-9662Niyjowngs (T4) free [Mass/volume] in Serum or PlasmaT4, free Lab Routine ESS (euthyroid sick syndrome) Chronic fatigue Postsurgical hypothyroidism Expected: 03/11/2025 (Approximate), Expires: 01/09/2026NONC HealthcareComment on above:Expected: 03/11/2025 (Approximate), Expires: 01/09/2026Start: 03-11-2025 End: 14-72-3328Aolqloxbqowwwnaa (T3) Free [Mass/volume] in Serum or PlasmaT3, free Lab Routine ESS (euthyroid sick syndrome) Chronic fatigue Postsurgical hypothyroidism Expected: 03/11/2025 (Approximate), Expires: 01/09/2026[facility] Healthcare Work Phone: Comment on above:Expected: 03/11/2025 (Approximate), Expires: 01/09/2026Start: 30-68-1845Anewgcnjp vaccinationInfluenza Vaccine (#1) NOMS HealthcareComment on above:Postponed from 03/27/2024 (Patient Refused) Start: 01-04-2025 End: 85-00-9496Mquvpfs encounter procedureNOMS BNS FMStart: 10-31-2024 End: 23-89-2010Acvarfnsogq [Units/volume] in Serum or PlasmaTSH Lab Routine Postsurgical hypothyroidism (CMS/HCC) Expected: 10/31/2024 (Approximate), Expires: 05/02/2025[facility] Healthcare Work Phone: Comment on above:Expected: 10/31/2024 (Approximate), Expires: 05/02/2025Start: 10-31-2024 End: 43-30-8912Uyixsgcwj (T4) free [Mass/volume] in Serum or PlasmaT4, free Lab Routine Postsurgical hypothyroidism (CMS/HCC) Expected: 10/31/2024 (Approximate), Expires: 05/02/2025NONC HealthcareComment on above:Expected: 10/31/2024 (Approximate), Expires: 05/02/2025Start: 10-31-2024 End: 74-78-0859Iwtremasieezinvo (T3) Free [Mass/volume] in Serum or PlasmaT3, free Lab Routine Postsurgical hypothyroidism (CMS/HCC) Expected: 10/31/2024 (Approximate), Expires: 05/02/2025NONC HealthcareComment on above:Expected: 10/31/2024 (Approximate), Expires: 05/02/2025Start: 10-04-2024 End: 14-70-3552Dgexowy encounter procedureNOMS CI FM 100Start: 08-13-2024 Medicare Annual Wellness (AWV)Medicare Annual Wellness (AWV)[facility] Start: 08-05-2024 End: 51-99-6081Sjhuhydum to same day surgery vqlvfg7408/05/2024 2:45 PM EST - 08/05/2024 3:00 PM EST Surgery [facility] [address] [place] [address] Nicky Ugarte MD [address] [facility] [address] [place] [address] ESOPHAGOGASTRODUODENOSCOPY BIOPSYSTCZ ENDOComment on above:ESOPHAGOGASTRODUODENOSCOPY BIOPSYStart: 08-05-2024 End: 59-79-1106Aya transoral biopsy single/multipleESOPHAGOGASTRODUODENOSCOPY BIOPSY Duodenal ulcer 08/05/2024 2:45 PM [facility] Start: 34-56-4854Yyxjwclmxd hospital visit by lihsymkob20/10/2025 2:45 PM EST Hospital Encounter [facility] [address] [place] [address] Nicky Ugarte MD [address] [facility] [address] [place] [address] STCZ ENDOStart: 81-34-3417Dejeqs Wellness Visit (Medicare Advantage)Annual Wellness Visit (Medicare Advantage)[facility] Start: 07-13-2024 End: 00-45-6518Tzdcfhb encounter qrzrfvjiz48/18/2024 9:30 AM EST Office Visit [facility] FM [address] [place] [address] Catracho Sheriff MD [address] [place] [address] (Fax) ArrivedNOMS CI FM 100Comment on above: ArrivedStart: 07-12-2024 End: 57-73-5700Qsdhtdq encounter procedureNOMS CI FM 100Start: 07-05-2024 End: 31-01-9272Ixotdcpjf to same day surgery ysbvup8907/05/2024 10:45 AM EST - 07/05/2024 11:00 AM EST Surgery [facility] [address] [place] [address] Nicky Ugarte MD [address] [facility] [address] [place] [address] ESOPHAGOGASTRODUODENOSCOPY WITH BIOPSY [facility] ENDOComment on above:ESOPHAGOGASTRODUODENOSCOPY WITH BIOPSYStart: 07-05-2024 End: 03-87-7573Xot transoral biopsy single/multipleESOPHAGOGASTRODUODENOSCOPY BIOPSY Duodenal ulcer 07/05/2024 10:45 AM [facility] Start: 21-09-1057Vkqggcefpi hospital visit by xmpwehiww51/10/2024 10:45 AM EST Hospital Encounter [facility] [address] [place] [address] Nicky Ugarte MD [address] [facility] [address] [place] [id number] [facility] ENDOStart: 05-02-2024 End: 24-68-9032UIU W Auto Differential panel - BloodCBC and differential Lab Routine Acute anemia Expected: 05/02/2024 (Approximate), Expires: 05/02/2025NOMS HealthcareComment on above:Expected: 05/02/2024 (Approximate), Expires: 05/02/2025Start: 05-02-2024 End: 55-97-1895Lruvzhvnyltve metabolic 2000 panel - Serum or PlasmaComprehensive metabolic panel Lab Routine Chronic pain syndrome Hypokalemia Expected: 05/02/2024 (Approximate), Expires: 05/02/2025NOMS HealthcareComment on above: Expected: 05/02/2024 (Approximate), Expires: 05/02/2025Start: 05-02-2024 End: 00-24-8167Xvpvvak encounter procedureNOMS CI FM 100Comment on above:Arrived Start: 04-28-2024 End: 62-22-6361Jezwtrd encounter procedureNOMS CI FM 100Comment on above:Arrived Start: 04-26-2024 End: 29-74-8905Laowfey encounter yzjcevxhh84/01/2024 4:15 PM EDT Office Visit [facility] CI FM 100 [address] [place] [address] [place] [address] Catracho Sheriff MD [address] [place] [address] (Fax) ArrivedNOMS CI FM 100Comment on above:ArrivedStart: 04-26-2024 End: 54-48-0156Apapvxfd identified in Wound by CultureWound culture Microbiology Routine Abscess of left lower leg Expected: 04/26/2024 (Approximate), Expires: 04/26/2025[facility] Work Phone: Comment on above:Expected: 04/26/2024 (Approximate), Expires: 04/26/2025Start: 04-14-2024 End: 18-71-6085Wrjiuwy encounter xymlyrfik29/19/2024 9:30 AM EDT Office Visit [facility] CI FM 100 [address] [place] [address] Catracho Sheriff MD [address] [place] [address] (Fax) Chronic pain syndrome; Fibromyalgia; Primary osteoarthritis, left ankle and foot;Primary osteoarthritis, right ankle and foot; Spondylosis of lumbar region without myelopathy or radiculopathy; Sleep arousal disorder; Generalized anxiety disorder (CMS/HCC); Controlled substance agreement signedNOMS CI FM 100Comment on above:Chronic pain syndrome; Fibromyalgia; Primary osteoarthritis, left ankle and foot; Primary osteoarthritis, right ankle and foot; Spondylosis of lumbar region without myelopathy or radiculopathy; Sleep arousal disorder; Generalized anxiety disorder (CMS/HCC); Controlled substance agreement signedStart: 04-12-2024 End: 01-03-6804Ulalqdgqg to same day surgery vashyh0004/12/2024 11:30 AM EDT - 04/12/2024 11:45 AM EDT Surgery [facility] [address] [place] [address] Nicky Ugarte MD [address] [place] [address] ESOPHAGOGASTRODUODENOSCOPY BIOPSY POSSIBLE DILATIONSTCZ ENDOComment on above:ESOPHAGOGASTRODUODENOSCOPY BIOPSY POSSIBLE DILATIONStart: 04-12-2024 End: 65-95-7788Wxy transoral biopsy single/multipleESOPHAGOGASTRODUODENOSCOPY BIOPSY Duodenal stricture 04/12/2024 11:30 AM [facility] 95-38-3503Ghqcmmwlkk hospital visit by kwuxtgcph23/17/2024 11:30 AM EDT Hospital Encounter [facility] [address] [place] [address] Nicky Ugarte MD [address] [facility] [address] [place] [address] [facility] ENDOStart: 59-68-5427OMTDR-19 Vaccine ( season)COVID-19 Vaccine ( season)[facility]Start: 64-32-1627Cgzbvmajg vaccinationInfluenza Vaccine (#1)[facility]OM HealthcareStart: 03-05-2024 End: 00-23-7179GRA panel - Blood by Automated countCBC Lab Routine Acute anemia Expected: 03/05/2024, Expires: 12/01/2024ON TRIHEALTHComment on above:Expected: 03/05/2024, Expires: 12/01/2024Start: 40-33-0735Ioezcislx vaccinationBON TRIHEALTHStart: 01-29-2024 End: 63-23-0694Cyw transoral biopsy single/multipleESOPHAGOGASTRODUODENOSCOPY BIOPSY Duodenal ulcer 01/29/2024 12:41 PM [facility] Start: 12-09-2023 End: 74-36-6225Xzxhafr encounter jbekhgytf45/15/2024 10:30 AM EDT Office Visit [facility] [address] [place] [id number] Nicky Ugarte MD [address] [place] [address] EGD F/u 11/25/23 & 12/01/23[facility]ologyComment on above:EGD F/u 11/25/23 & 12/01/23Start: 11-21-[address] [facility]: 00-07-3946Xiwxdxoo admissionMer[facility] Health St. [facility] Hospitaltart: 06-10-9890Bmqblawn to gastroenterologistMercy Health St. [facility] Hospitaltart: 10-21-2023 End: 11-42-3350Diwkljs encounter auinyadla73/27/2024 10:30 AM EDT Office Visit [facility] [address] [place] [address] Catracho Sheriff MD [address] [place] [address] (Fax)[facility] FMStart: 03-29-9206Ilplgfrng for malignant neoplasm of colonNOMS HealthcareStart: 65-37-3311Cjljuwziwtw Syncytial Virus (RSV) or age 60 yrs+ (1 - 1-dose 75+ series)Respiratory Syncytial Virus (RSV) or age 60 yrs+ (1 - 1-dose 75+ series)[facility] Start: 02-48-6544Ctnopw Wellness Visit (Medicare Advantage)Annual Wellness Visit (Medicare Advantage)[facility]ALTHStart: 02-41-8537LNQXD-19 Vaccine ( season)COVID-19 Vaccine ( season)[facility]ALTHStart: 08-18-2697Oclypqasq vaccinationInfluenza Vaccine (#1)[facility] HealthcareStart: 43-62-2896Dogrerrresl Syncytial Virus (RSV) or age 60 yrs+ (1 - 1-dose 60+ series)Respiratory Syncytial Virus (RSV) or age 60 yrs+ (1 - 1-dose 60+ series)[facility]2004 DTaP/Tdap/Td Vaccines (2 - Tdap)DTaP/Tdap/Td Vaccines (2 - Tdap)[facility] Start: 71-20-4606XCxX/Tdap/Td vaccine (1 - Tdap)DTaP/Tdap/Td vaccine (1 - Tdap) [facility]: 38-47-3409Sdnbabisp for osteoporosisDEXA (modify frequency per FRAX score)[facility]: 26-46-2553Fjmobtcmf for malignant neoplasm of lungHenrico Doctors' Hospital—[facility] Campusart: 60-83-2505Chsdqwly vaccine (1 of 2)Shingles vaccine (1 of 2)[facility]: 63-81-2309Ykkcbdxwo for malignant neoplasm of colonBON [facility] Start: 40-43-6409Tlcnw panelLipidsHenrico [facility]' Hospital—[facility] Campusart: 1966 Hepatitis C screeningHepatitis C screenBON [facility] Hospitalart: 1960 Depression ScreenDepression ScreenHealthSouth Medical Center: 1948 Screening for malignant neoplasm of [facility] End: 55-80-0752Dfiem Metabolic Panel w/ Reflex to MGBasic Metabolic Panel w/ Reflex to MG Lab Routine Daily for 3 Weeks starting 11/30/2023 until 12/20/2023, [facility]:Daily for 3 Weeks starting 11/30/2023 until 12/20/2023, 4 completedBody fluid cultureBody fluid culture Microbiology Routine 04/26/2024 4:46 PM [facility] Work Phone: End: 02-16-6705IKF W Auto Differential panel - BloodCBC with Auto Differential Lab Routine Daily for 3 Weeks starting 11/30/2023 until 12/20/2023, 4 completed [facility] on above:Daily for 3 Weeks starting 11/30/2023 until 12/20/2023, 4 completedEKG 12 LeadEKG 12 Lead ECG Routine 12/03/2023 5:35 AM EDAgricanEKG 12 LeadEKG 12 Lead ECG STAT 12/03/2023 5:35 AM [facility] Work Phone: Helicobacter pylori Ag [Presence] in Stool by [facility] End: 07-28-6823Xgjjcrftgv and HematocritHemoglobin and Hematocrit Lab Routine Post Transfusion Post Transfusion Post Transfustion until discontinued starting 11/28/2023 [facility] on above:Post Transfusion Post Transfusion Post Transfustion until discontinued starting 11/28/2023 End: 84-84-7304Uzloayesbg and HematocritHemoglobin and Hematocrit Lab Routine Post Transfusion Post Transfusion Post Transfustion until discontinued starting 11/29/2023 [employer] [facility] on above:Post Transfusion Post Transfusion Post Transfustion until discontinued starting 11/29/2023 End: 73-27-1951Fkkeaxjtbn and HematocritHemoglobin and Hematocrit Lab Routine Post Transfusion Post Transfusion Post Transfustion until discontinued starting 11/30/2023 [facility] on above:Post Transfusion Post Transfusion Post Transfustion until discontinued starting 11/30/2023 End: 09-56-7312JIVSGCKR PACU OXYGEN THERAPY PROTOCOLInitiate PACU Oxygen Therapy Protocol Respiratory Care Routine Continuous until discontinued starting 12/01/2023 [employer] Phone: comment on above:Continuous until discontinued starting 12/01/2023Intermittent pulse oximetryPulse Oximetry Spot Check Respiratory Care Routine As Needed until discontinued starting 11/27/2023 [facility] on above:As Needed until discontinued starting 11/27/2023Oxygen therapy [Minimum Data Set]Initiate Oxygen Therapy Protocol Respiratory Care Routine As Needed until discontinued starting 11/25/2023 [facility] on above:As Needed until discontinued starting 11/25/2023Oxygen therapy [Minimum Data Set]Initiate Oxygen Therapy Protocol Respiratory Care Routine As Needed until discontinued starting 01/29/2024 [employer] Work Phone: Comment on above:As Needed until discontinued starting 01/29/2024atient EducationDuodenal Ulcer (DC) Pantoprazole Polysaccharide-Iron [facility] Work Phone: [facility] Work Phone: End: 46-71-2283ISJAQPJ RBC (CROSSMATCH), 1 UnitsPREPARE RBC (CROSSMATCH), 1 Units Blood Bank Routine Once for 1 Occurrences starting 11/27/2023 until 11/27/2023[employer] [facility] on above:Once for 1 Occurrences starting 11/27/2023 until 11/27/2023 End: 74-93-6420PSLDEAL RBC (CROSSMATCH), 1 UnitsPREPARE RBC (CROSSMATCH), 1 Units Blood Bank Routine Once for 1 Occurrences starting 11/29/2023 until 11/29/2023[employer] [facility] on above:Once for 1 Occurrences starting 11/29/2023 until 11/29/2023 End: 05-02-0511ZTEOYNN RBC (CROSSMATCH), 1 UnitsPREPARE RBC (CROSSMATCH), 1 Units Blood Bank Routine Once for 1 Occurrences starting 11/30/2023 until 11/30/2023[employer] [facility] on above:Once for 1 Occurrences starting 11/30/2023 until 11/30/2023 End: 04-20-2823LPZCIRZL REJECTIONBON [employer] [facility]Comm[facility] on above:Once for 1 Occurrences starting 11/29/2023 until 11/29/2023 End: 29-32-4304QQOJEFGY REJECTIONBON [employer] Work Phone: Comment on above:Once for 1 Occurrences starting 11/30/2023 until 11/30/2023Surgical PathologySurgical Pathology Lab Routine Duodenal ulcer Release Upon Ordering for 1 Occurrences starting 01/29/2024[employer] [facility] on above:Release Upon Ordering for 1 Occurrences starting 01/29/2024 End: 80-78-7779SEDYYAMC PATHOLOGY REPORTSURGICAL PATHOLOGY REPORT Lab Routine Once for 1 Occurrences starting 01/29/2024 until 01/29/2024[employer] [facility] on above:Once for 1 Occurrences starting 01/29/2024 until 01/29/2024Transfuse RBCBON [facility] Immunizations Immunization DateImmunizationNotesCare WmtughzhNizsukun10-05-8605Dcuklumn, trivalent, recombinant, injectable influenza vaccine, preservative freeCatracho Sheriff MD Work Phone: [facility] HospitalVznnhtfoua37-31-2717wjfefvwsb virus vaccine, unspecified formulationCatracho Sheriff MD Work Phone: [phone] [place], [place] [address]Nxlppymxvg08-81-0166Mzeslw Purple Cap SARS-CoV-2 VaccinationEdelizabeth Sheriff MD Work Phone: [phone] [place], [place] [address]Kesfydmato33-21-0159Kmxioh Purple Cap SARS-CoV-2 VaccinationEdelizabeth Sheriff MD Work Phone: [phone] [place], [place] [address]Gllcpxfcow52-27-3315Fruinbtll, High-dose Seasonal, Quadrivalent, Preservative FreeCatracho Sheriff MD Work Phone: [phone] [place], [place] [address]Jjgvioqnfp65-96-5756xmbmmttozvxq polysaccharide vaccine, 23 valAlonso Sheriff MD Work Phone: [phone] [place], [place] [address]Ppswzlyqpr45-93-6485prorpytjq, injectable, quadrivalent, preservative freeCatracho Sheriff MD Work Phone: [phone] [place], [place] [address]Hpfkwucczc90-35-5073nrilhfgpstfw conjugate vaccine, 13 valAlonso Sheriff MD Work Phone: [phone] [place], [place] [address]Himblcdzih38-54-8852ykfsytoodupx polysaccharide vaccine, 23 valAlonso Sheriff MD Work Phone: [phone] [place], [place] [address]Mhcomqxswc21-68-4057cuxhlfz and diphtheria toxoids, adsorbed, preservative free, for adult use (5 Lf of tetanus toxoid and 2 Lf of diphtheria toxoid)Catracho Sheriff MD Work Phone: [facility] Payers DatePayer CategoryPayerPolicy [id number] 2023Medicare (Managed Care)[employer] MEDICARE ADVANTAGE Member Subscriber Plan / Payer (Effective 2022-Present) Name: Jenny Ewing Relation to Subscriber: Self Name: Jenny Ewing Payer ID: [id number] (NAIC) Type: Not on file Address: [place] [id number] 2008Medicare [id number] [id number] 1949 [id number] 2.840.1.115852.3.57[id number] 2.840.1.343215.3.57[id number] 2.840.1.810665.3.57[id number] 2.840.1.029302.3.57[id number] 2.840.1.461002.3.57[id number] 2.16.840.1.259884.3.57[id number] 2.16.840.1.334801.3.57[id number] 2.16840.1.630185.3.57[id number] 2.840.1.534383.3.57[id number] 2.16.840.1.540227.3.57[id number] 2.16.840.1.359562.3.57[id number] 2.16.840.1.580541.3.57[id number] 2.16.840.1.060135.3.57[id number] 2.16.840.1.075476.3.57[id number] 2.16.840.1.117161.3.57[id number] 2..840.1.449235.3.57[id number] 2.16.840.1.099193.3.579.2.1258MedicaidMedicaid [id number] [id number]/HFA/FAP [id number] 2.0.1.755314.3.579.2.531 Social History DateTypeDetailFacilityStart: 01-26-2023 End: 83-38-9972Zjwgddg smoking status NHISEx-smokerNOMS HealthcareStart: 11-17-2023 End: 39-14-5168Aqwohaa of tobacco useCurrent smokerNOMS Healthcare End: 81-05-5366Knlwkaz of tobacco useCigarette SmokerNOMS HealthcareStart: 08-13-2023 End: 37-83-9228Vilxqmp use and exposureSmokeless tobacco non-userNOMS Healthcare Start: 08-25-2023 End: 28-00-2847Jijslnr intakeEx-drinker (finding)[facility] HealthcareStart: 08-25-2023 End: 13-06-2500Kacdjmt of Social functionNOMS HealthcareStart: 08-25-2023 End: 51-08-8116Vcvnxfd use panelNOMS HealthcareStart: 04-72-8072Gbtkhpnay29NZBY HealthcareStart: 66-58-1839Rgfaugt CommentCaffeine intake: drinks decafNOMS HealthcareStart: 80-71-1767Ddk Assigned At BirthNot on fileNOMS HealthcareStart: 16-92-9461Cmi Assigned At BirthUniversity Hospitals Ahuja Medical Centertart: 23-40-0261Vvyrnzj smoking status NHISSmokes tobacco dailyBON [employer] [facility]ENTERStart: 46-39-5802Mgz the [employer] gas, oil, or water [employer] threatened to shut off services in your home in past 12MoPatient declinedBON [employer](I/We) worried whether (my/our) food would run out before (I/we) got money to buy more.Never trueBON [employer] HEALTHHow often do you need to have someone help you when you read instructions, pamphlets, or other written material from your doctor or pharmacy [SILS]NeverNOMS HealthcareWithin the last year, have you been afraid of your partner or ex-partner?NoNOMS HealthcareAre you now , , , , never or living with a partner?WidowedNOMS HealthcareHow hard is it for you to pay for the very basics like food, housing, medical care, and heatingSomewhat hardNOMS HealthcareDo you feel stress - tense, restless, nervous, or anxious, or unable to sleep at night because yourmind is troubled all the time - these days [OSQ]To some extentNOMS Healthcare Goals DatePatient GoalDesired Activity/State Functional Status XakxCuctzgijxzWvnxqiOnzvfayw84-51-6635Sifxvhg Health Questionnaire 2 item (PHQ- 2) [Reported]NOMS Lnroqveuxj98-82-4139Xewbacm Health Questionnaire 2 item (PHQ- 2) [Reported][facility] HospitalUbgirsdvqb63-08-2912Wahoerj Health Questionnaire 2 item (PHQ- 2) [Reported][facility] HospitalFykswvoclp04-39-2309Biejkzt Health Questionnaire 2 item (PHQ- 2) [Reported][facility] HospitalKcjzpptvwf45-45-2830Uzmfaxd Health Questionnaire 2 item (PHQ- 2) [Reported][facility] HospitalHpqhzrqmab53-46-6407Okqzv score [AUDIT-C]0 12/23/2024 3:28 PM EDT Aimee Truong RNSullivan County Memorial HospitalBzupkyxhmq14-18-9882Roetuzn Health Questionnaire 2 item (PHQ-2) [Reported][facility] HospitalAsjbffrima20-84-6676Aejwwvowkx statusPatient at BaselineK[facility] Health [facility] Work Phone: [phone]wcc Health Questionnaire 2 item (PHQ-2) [Reported][facility] Mental Status ByfeTtfnbfmrrxVdtzqwNucoqscy88-13-1064Ioklmxgrn functionCognitive Status Patient at BaselineK[facility] Work Phone: Clinical Notes 08-25-2023 to 05-25-2025 Note Date & MymcMpztMpqbaylp13-54-6529 History of Present illness Narrative* Catracho Sheriff MD - 05/25/2025 9:00 AM EDT Images from the original note were not included. Jenny Ewing is a 74 y.o. female presents with chief complaint of Annual Exam HPI: History of Present Illness She is here with her friend Radha. I have reviewed and reconciled the history and medication list with the patient today. CURRENT PCP/CARE TEAM: Patient Care Team: Catracho Sheriff MD as PCP - General (Family Medicine) Catracho Sheriff MD as PCP - Shara Gaona DO as Referring Physician (Neurology) Aimee Truong, RN as Registered Nurse (Family Medicine) ARNEL Anderson as Medical Lab Specialist (Family Medicine) Over the past 2 weeks, how often have you been bothered by any of the following problems? Little interest or pleasure in doing things: Not at all Feeling down, depressed, or hopeless: Several days Patient Health Questionnaire-2 Score: 1 Over the past 2 weeks, how often have you been bothered by any of the following problems? Trouble falling or staying asleep, or sleeping too much: Several days Feeling tired or having little energy: Several days Poor appetite or overeating: Not at all Feeling bad about yourself - or that you are a failure or have let yourself or your family down: Not at all Trouble concentrating on things, such as reading the newspaper or watching television: Not at all Moving or speaking so slowly that other people could have noticed? Or the opposite - being so fidgety or restless that you have been moving around a lot more than usual.: Not at all Thoughts that you would be better off or hurting yourself in some way: Not at all Patient Health Questionnaire-9 Score: 3 Health Risk Assessment Form Do you need help eating, bathing, using the toilet, dressing, or getting around your home?: No Can you prepare your own meals?: Yes Can you do your own housework without help?: Yes Can you shop for groceries or clothes without help?: Yes Do you exercise for about 20 minutes 3 or more days a week?: No How confident are you that you can control and manage most of your health problems?: Very confident Can you mange your money, credit cards and accounts, pay bills and taxes?: Yes Vision Screening: Yes, patient sees regular engineering designer/food preparer Hearing Screening: Not done Cognitive Screening Self Assessment: No concerns rasied by family members, friends, or caretakers Three Word Registration: Banana, Schuyler, Chair Clock Drawing: Normal Clock - 2 Three Word Recall: All 3 words correct - 3 Total Score (0-5 Points): 5 Pain Assessment Pain Score: 7 HISTORIES: PAST MEDICAL HISTORY: Medical History[1] SURGICAL HISTORY: Surgical History[2] SOCIAL HISTORY: Social History[3] Depression: Not at risk (05/25/2025) PHQ-2 PHQ-2 Score: 1 FAMILY HISTORY: Family History[4] MEDICATIONS: Current Outpatient Medications Medication Instructions albuterol HFA (Ventolin HFA) 90 mcg/act inhaler 2 puffs, Inhalation, Every 6 hours PRN b complex vitamins capsule 1 capsule, Daily baclofen (Lioresal) 20 MG tablet Take one half tablet in the morning, One half tablet at lunch, and2 tablets in the evening busPIRone (Buspar) 15 MG tablet Take 0.5 tablet at breakfast and 0.5 tablet lunch, and 2 tablets atbedtime. calcium citrate 250 mg, 2 times daily cholecalciferol (VITAMIN D-3) 3,000 Units, Daily cholecalciferol (VITAMIN D-3) 5,000 Units, Daily DULoxetine (CYMBALTA) 40 mg, Oral, Daily famotidine (PEPCID) 20 mg, Oral, 2 times daily gabapentin (NEURONTIN) 100 mg, Oral, 3 times daily glucosamine-chondroitin 750-600 MG tablet tablet 2 tablets, Daily ipratropium-albuterol (Duo-Neb) 0.5-2.5 mg/3 mL nebulizer solution 3 mL, Nebulization, 4 times daily RT iron polysaccharides (NU-IRON,NIFEREX) 150 mg, Every 48 hours levothyroxine (Synthroid) 137 MCG tablet Take 1 tablet daily mirtazapine (REMERON) 45 mg, Oral, Nightly [place]-3 Fatty Acids (Fish Oil) 1000 MG capsule delayed-release Take by mouth oxygen (O2) gas Continuous pantoprazole (PROTONIX) 40 mg spironolactone (ALDACTONE) 50 mg, Oral, Daily, Dose increase STRONTIUM CITRATE 2 tablets, Daily traMADol (ULTRAM) 100 mg, Oral, 4 times daily triamcinolone (Kenalog) 0.1 % ointment Topical, 2 times daily Turmeric (QC TUMERIC COMPLEX PO) 500 mg, Daily vitamin C 1,000 mg, 2 times daily zinc gluconate 50 mg, See admin instructions ALLERGIES: Allergies[5] PHYSICAL EXAM: Visit Vitals BP 120/70 Pulse 101 Comment: after resting 5 min Ht 5' 4 Wt 162 lb SpO2 90% Comment: After resting 5 minutes BMI 27.81 kg/m OB Status Postmenopausal Smoking Status Former BSA 1.82 m Vitals: 05/25/25 0900 05/25/25 0909 BP: 120/70 Pulse: (!) 115 Comment: After walking from Lobby to Room 101 Comment: after resting 5 min SpO2: (!) 72% Comment: After walking from Lobby to Room 90% Comment: After resting 5 minutes Weight: 162 lb Height: 5' 4 BP Readings from Last 3 Encounters: 05/25/25 120/70 08/13/23 126/78 09/22/22 134/66 Wt Readings from Last 3 Encounters: 05/25/25 162 lb 04/05/25 163 lb 04/03/25 163 lb Physical Exam The patient is pleasant and in no [...] respiratory pattern. The breath sounds are diffusely decreasedbut symmetrical without evidence of rhonchi or rales. No wheezing. The skin is warm and dry. The lower extremities demonstrate a well moisturize skin. There are areas of violaceous this consistent with venous insufficiency on both legs. The right leg has trace edema where the left leg has 1+edema. The patient does have a chronic venous stasis ulcer on the left leg laterally. She notes shehas not been doing anything special for it. There is some granulation tissue. No signs of secondary infection. Neurologic screening exam is nonfocal. The patient is alert. There is no overt gross evidence of cognitive impairment The patient has good eye contact and speech is clear. Appropriate affect. Results ASSESSMENT AND PLAN: Assessment/Plan 1. Encounter for Medicare annual wellness exam The patient is here for their Annual Medicare Wellness visit. Demographics were updated. Self-assessment was completed and reviewed. Past medical, family, and social history were updated. The medication list updated and reviewed by the doctor. A list of other current medical providers is established and updated. Time was spent discussing health maintenance issues, ordering testing as appropriate,and a schedule was reviewed regarding recommended screening. We discussed safety issues and fall risk. Depression screening was completed and addressed as appropriate. Fall screening was completed and addressed. Cognitive function was assessed by direct observation, cognitive screening as indicated, and assessment of ability to perform ADL's. The BMI and discussed. Major risk factors for chronic disease including family history were discussed. An after visit summary is made available to the patient 2. Advance directive discussed with patient Patient voluntarily agreed to discuss advance care planning at today's wellness visit. We discussed that an advance directive is a legal document that only goes into effect if the patient is incapacitated and unable to speak for themselves. This would help us to decide what care the patient would want. We discussed emergency treatments to keep the patient alive such as CPR, ventilator use and concept of comfort. We discussed how patients could make their wishes known through a living will, durable power of erisa attorney for healthcare, or other advanced directives. We discussed telling jiménez people about their advance and a copy will be kept in the EHR. I discussedthat they should also make me an emergency contact in their cell phone, and/or notify their POA that I have a copy of the advanced directives. Our chronic care management clinical social worker is in the building today and has time to come down and help her with this. We introduced her to [place] 3. Encounter for screening for other disorder Clinically insignificant depression screen 4. Screening for alcohol problem Negative alcohol screen 5. Polypharmacy Chronic problem The patient meets the criteria for polypharmacy; 5 or more prescriptions or multi-morbidity definedas 5 or more diagnoses. Polypharmacy can significantly increase the risk of adverse drug events and negatively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 chance to ask questions today and all questions were answered. The patient is to contact us if any other questions arise or if any problems occur. - levothyroxine (Synthroid) 137 MCG tablet; Take 1 tablet daily Dispense: 90 tablet; Refill: 0 - T4, free; Future - T3, free; Future - T4, free - T3, free 2. ESS (euthyroid sick syndrome) Chronic problem with the standard of care to be not treating it, and this is what the patient elects to do. 3. Chronic fatigue Chronic problem that is stable for her but she still notes she is tired all the time. 4. Chronic pain syndrome Chronic problem, stable, [...] problems if not taken the correct way, ortaken with another drug or food item that [...] medications need regular review and prescribing optimization. PDMP reviewed, Appears as expected. COMM reviewed Of note is that the duloxetine also cross treats her generalized anxiety disorder. - traMADol (Ultram) 50 MG tablet; Take 2 tablets (100 mg) by mouth in the morning and 2 tablets (100 mg) at noon and 2 tablets (100 mg) in the evening and 2 tablets (100 mg) before bedtime. Dispense:240 tablet; Refill: 2 - DULoxetine (Cymbalta) [address] capsule; Take 2 capsules (40 mg) by mouth Daily Dispense: 180 capsule; Refill: 1 5. Spondylosis of lumbar region without myelopathy or radiculopathy Chronic problem, stable, monitor longitudinally a component of the chronic pain syndrome. 6. Osteopenia of spine Chronic problem, stable, monitor longitudinally a component of the chronic pain syndrome. 7. Failed back syndrome of lumbar spine Chronic problem, stable, monitor longitudinally a component of the chronic pain syndrome. 8. Former smoker Continue not smoking 9. Overweight Recommended she continue to gently have a walking program to try to keep some strength and keep herweight in check. 10. Generalized anxiety disorder Chronic problem that has worsened due to the patient's being threatened with the eviction from the landlord. - busPIRone (Buspar) 15 MG tablet; Take 0.5 tablet at breakfast and 0.5 tablet lunch, and 2 tabletsat bedtime. Dispense: 270 tablet; Refill: 1 11. Sleep arousal disorder Chronic problem that is stable with the medication combination. The mirtazapine also treats the generalized anxiety disorder. - mirtazapine (Remeron) 45 MG tablet; Take 1 tablet (45 mg) by mouth at bedtime Dispense: 90 tablet; Refill: 1 12. Stasis dermatitis of both legs Chronic problem that is a little bit worse than usual. There are no ulcerations or areas with evident infection. She has used triamcinolone successfully before and we will represcribe this for her. - triamcinolone (Kenalog) 0.1 % ointment; Apply topically in the morning and before bedtime. Dispense: 80 g; Refill: 2 Please Note: Portions of this chart may have been created using voice recognition software. Occasionally a wrong-word or sound-like substitutions may have occurred due to inherent limitations of the voice recognition software. Please read the chart carefully and recognize, using context, where the substitutions may have occurred. documented in this encounterSullivan County Memorial [id number] History of Present illness Narrative* Aimee Truong RN - 03/08/2025 10:01 AM EDT Pt LM for CM, states that she will be out of Tramadol on Thursday. Last rx filll was 02/07, her next office appt is 04/03 with PCP documented in this encounterSullivan County Memorial HospitalQiwpxiqynx67-07-3424 Telephone encounter Note* Telephone Encounter - Catracho Sheriff MD - 02/08/2025 2:08 PM EDT Prescription sent [facility] [id number] Miscellaneous Notes* Telephone Encounter - Catracho Sheriff MD - 02/08/2025 2:08 PM EDT Prescription sent documented in this encounterSullivan County Memorial HospitalXudhpizykn78-67-9326 History of Present illness Narrative* ARNEL Guerra - 02/08/2025 12:40 PM EDT Message from pt requesting refill on Mirtazapine to be sent in by Thursday, stating she will be out on 02/14. documented in this encounterSullivan County Memorial HospitalJovxmgokph65-04-3726 History of Present illness Narrative* Aimee Truong RN - 01/19/2025 8:23 AM EDT Pt requesting Rx[facility]act[facility] documented in this [facility]06-16-2025 History of Present illness Narrative* Catracho Sheriff MD - 01/09/2025 2:00 PM EDT Images from the original note were not included. Patient ID: Jenny Ewing is a 74 y.o. female who presents for: Hospital Follow up Fall: Flowsheet Row Patient Outreach from 01/09/[address] [facility] with Aimee Truong RN Hospital Information ED, Hospital or Senior Living Facility Discharge? Hospital Patient has been contacted within two business days of discharge Yes Diagnosis Closed head injury, AMS, unspecified fall, hypothyroidism, COPD, HTN, Esophagitis Discharge Date 01/05/25 Discharged To: Home Setting [facility] Engagement Call Start Time 820 [...] to go to out patient therapy at [facility]] Patient Teaching Does the patient [...] services, declined services. Wants outpatient PT/OT at [facility]. Pt's oxygen level did desaturate [...] respiratory pattern. The breath sounds are diffusely decreasedbut symmetrical without evidence of rhonchi or rales. [...] at lunch, and2 tablets in the evening 270 tablet 1 [...] in the morning and 1 tablet (20 mg)before bedtime. 180 tablet 1 gabapentin (Neurontin) 100 MG capsule Take 1 capsule (100 mg) by mouth in the morning and 1 capsule(100 mg) in the evening and 1 capsule (100 mg) before bedtime. 270 capsule 1 glucosamine-chondroitin 750-600 MG tablet tablet Take 2 tablets by mouth 1 (one) time each day ipratropium-albuterol (Duo-Neb) 0.5-2.5 mg/3 mL nebulizer solution Take 3 mL by nebulization in themorning and 3 mL at noon and 3 mL in the evening and 3 mL before bedtime. 1080 mL 1 iron polysaccharides (Nu-Iron,Niferex) 150 MG capsule Take 150 mg by mouth every other day levothyroxine (Synthroid) 175 MCG tablet Take 1 tablet daily 90 tablet 1 mirtazapine (Remeron) 45 MG tablet Take 1 tablet (45 mg) by mouth at bedtime 30 tablet 0 [place]-3 Fatty Acids (Fish Oil) 1000 MG capsule [...] the possibility of obtaining a product like life [employer] so she could call [facility]. She was a little bit resistant to this but she states she has to call her chronic care management clinical social worker anyway, and I discussed bring this up [...] transition of care note is reviewed. a tanw-fb-sewh evaluation is done today. Medical decision making [...] problems if not taken the correct way, ortaken with another drug or food item that [...] and 2 tablets (100 mg) before bedtime. Dispense:240 tablet; Refill: 1 - gabapentin (Neurontin) 100 [...] breakfast and 0.5 tablet lunch, and 2 tabletsat bedtime. Dispense: 270 tablet; Refill: 1 6. Sleep arousal disorder I did discuss with the patient that the tramadol can sometimes cause some insomnia although she hashad problems with this since as long as [...] free - T4, free documented in this [facility]01-22-2025 Telephone encounter Note* Telephone Encounter - Catracho Sheriff MD - 08/17/2024 4:35 PM EST error [facility] [id number] Miscellaneous Notes* Telephone Encounter - Catracho Sheriff MD - 08/17/2024 4:35 PM EST error documented in this [facility]01-02-2025 History of Present illness Narrative* Allyson Franklin, IGOR - 07/28/2024 2:00 PM EST Pre-op Instructions For Out-Patient Endoscopy Surgery Medication [...] lotion, powder, jewelry, piercings, perfume, makeup, nail senegalese, hair accessories, or hair spray on the day of surgery. Wear loose comfortable clothing. Leave your valuables at home but bring a payment source for any after-surgery prescriptions you plan to fill at [facility]. Bring a storage case for any glasses/contacts. An adult who is responsible for you MUST drive you home and should be with you for the first 24 hours after surgery. The Day of Surgery: Arrive at [facility] at the time directed by your surgeon and check in at the desk. If you have a living will or healthcare power of erisa attorney, please bring a copy. You will be taken to the pre-op holding area where you will be prepared for surgery. A physical assessment will be performed by a nurse practitioner or warehouse shipping associate. Your IV will be started and you will meet your anesthesiologist. When you go to surgery, your family will be directed to the surgical waiting room, where the doctorshould speak with them after your surgery. After surgery, you will be taken to the recovery area. When you are alert and stable, you will receive instructions and be prepared for discharge. Instructions reviewed, patient verbalizes understanding EGD 08/05/24 [facility] History of Present illness Narrative* Catracho Sheriff MD - 07/13/2024 9:30 AM EST Images from the original note were not [...] down to the shoulder blades. She is hcpg-ox-ilqqtzpywg tender in this area. Decreased range of [...] by mouth in the morning and 1 capsule(100 mg) in the evening and 1 capsule (100 mg) before bedtime. 270 capsule 1 glucosamine-chondroitin 750-600 MG tablet tablet Take 2 tablets by mouth 1 (one) time each day ipratropium-albuterol (Duo-Neb) 0.5-2.5 mg/3 mL nebulizer solution Take 3 mL by nebulization in themorning and 3 mL at noon and 3 mL in the evening and 3 mL before bedtime. 1080 mL 1 iron polysaccharides (Nu-Iron,Niferex) 150 MG capsule Take 150 mg by mouth every other day mirtazapine (Remeron) 30 MG tablet Take 1 tablet (30 mg) by mouth at bedtime 90 tablet 1 [place]-3 Fatty Acids (Fish Oil) 1000 MG capsule [...] problems if not taken the correct way, ortaken with another drug or food item that [...] and 2 tablets (100 mg) before bedtime. Dispense:240 tablet; Refill: 1 - baclofen (Lioresal) 20 [...] polypharmacy; 5 or more prescriptions or multi-morbidity definedas 5 or more diagnoses. Polypharmacy can significantly increase the risk of preventable adverse drug events and negatively impact adherence. Consideration of diverse factors such as clinician agreement, patient perspective,and de-prescribing, as appropriate can improve patient outcomes while simplifying care. This requires longitudinal monitoring as there is at least a moderate risk of morbidity and requires at least amoderate degree of evaluation and management. documented in this encounterSullivan County Memorial HospitalCeobubxniu30-61-1830 History of Present illness Narrative* Alexis Chua RN - 06/27/2024 4:15 PM EST Pre-op Instructions For Out-Patient Endoscopy Surgery Medication [...] lotion, powder, jewelry, piercings, perfume, makeup, nail senegalese, hair accessories, or hair spray on the day of surgery. Wear loose comfortable clothing. Leave your valuables at home but bring a payment source for any after-surgery prescriptions you plan to fill at [facility]. Bring a storage case for any glasses/contacts. An adult who is responsible for you MUST drive you home and should be with you for the first 24 hours after surgery. Son will ride in cab with her The Day of Surgery: Arrive at [facility] at the time directed by your surgeon and check in at the desk. If you have a living will or healthcare power of erisa attorney, please bring a copy. You will be taken to the pre-op holding area where you will be prepared for surgery. A physical assessment will be performed by a nurse practitioner or warehouse shipping associate. Your IV will be started and you will meet your anesthesiologist. When you go to surgery, your family will be directed to the surgical waiting room, where the doctorshould speak with them after your surgery. After surgery, you will be taken to the recovery area. When you are alert and stable, you will receive instructions and be prepared for discharge. Pt verbalizes understanding of instructions [facility] Telephone encounter Note* Telephone Encounter - Catracho Sheriff MD - 06/21/2024 1:00 PM EST RX sent [facility] [id number] Miscellaneous Notes* Telephone Encounter - Catracho Sheriff MD - 06/21/2024 1:00 PM EST RX sent documented in this encounterSullivan County Memorial HospitalFpcmkhegfa74-93-5461 Telephone encounter Note* Telephone Encounter - Catracho Sheriff MD - 06/15/2024 1:20 PM EST See CCM note. RX sent [facility] HospitalIgtqmhjcnm25-49-4090 Miscellaneous Notes* Telephone Encounter - Catracho Sheriff MD - 06/15/2024 1:20 PM EST See CCM note. RX sent documented in this encounterSullivan County Memorial HospitalZqahzxynmq78-90-2558 History of Present illness Narrative* Catracho Sheriff MD - 05/02/2024 9:00 AM EDT Images from the original note were not [...] a venous stasis. There is no evidence ofsecondary infection. No need for further debridement. Visit [...] at lunch, and2 tablets in the evening 270 tablet 0 [...] in the morning and 1 tablet (20 mg)before bedtime. 60 tablet 2 Flovent HFA 220 MCG/ACT inhaler Inhale 1 puff in the morning and 1 puff before bedtime. gabapentin (Neurontin) 100 MG capsule Take 1 capsule (100 mg) by mouth in the morning and 1 capsule(100 mg) in the evening and 1 capsule (100 mg) before bedtime. 270 capsule 1 glucosamine-chondroitin 750-600 MG tablet tablet Take 2 tablets by mouth 1 (one) time each day ipratropium-albuterol (Duo-Neb) 0.5-2.5 mg/3 mL nebulizer solution Take 3 mL by nebulization in themorning and 3 mL at noon and 3 mL in the evening and 3 mL before bedtime. 1080 mL 1 iron polysaccharides (Nu-Iron,Niferex) 150 MG capsule Take 150 mg by mouth every other day levothyroxine (Synthroid) 150 MCG tablet Take 1 tablet daily 90 tablet 1 mirtazapine (Remeron) 30 MG tablet Take 1 tablet (30 mg) by mouth at bedtime 90 tablet 1 [place]-3 Fatty Acids (Fish Oil) 1000 MG capsule [...] referral up to the vascular surgeon in [place]. Not sure if there is much he [...] of her medical stuff and her rides medicalstuff she never went over and got that taken care of we will real issue it. - Comprehensive metabolic panel; Future - Comprehensive metabolic panel - Handicap Placard Lifetime documented in this encounterSullivan County Memorial HospitalCqdgfsytck28-34-6676 History of Present illness Narrative* Catracho Sheriff MD - 04/28/2024 9:00 AM EDT Images from the original note were not [...] at lunch, and2 tablets in the evening 270 tablet 0 [...] in the morning and 1 tablet (20 mg)before bedtime. 60 tablet 2 Flovent HFA 220 MCG/ACT inhaler Inhale 1 puff in the morning and 1 puff before bedtime. gabapentin (Neurontin) 100 MG capsule Take 1 capsule (100 mg) by mouth in the morning and 1 capsule(100 mg) in the evening and 1 capsule (100 mg) before bedtime. 270 capsule 1 glucosamine-chondroitin 750-600 MG tablet tablet Take 2 tablets by mouth 1 (one) time each day ipratropium-albuterol (Duo-Neb) 0.5-2.5 mg/3 mL nebulizer solution Take 3 mL by nebulization in themorning and 3 mL at noon and 3 mL in the evening and 3 mL before bedtime. 1080 mL 1 iron polysaccharides (Nu-Iron,Niferex) 150 MG capsule Take 150 mg by mouth every other day levothyroxine (Synthroid) 150 MCG tablet Take 1 tablet daily 90 tablet 1 mirtazapine (Remeron) 30 MG tablet Take 1 tablet (30 mg) by mouth at bedtime 90 tablet 1 [place]-3 Fatty Acids (Fish Oil) 1000 MG capsule [...] on the right and for ulcers on theleft. That 1 that appeared abscess 2 days ago seems to be improved. There is no evidence of fluctuance or pus anymore. The wounds were redressed. At ask the patient to change the dressings on Thursday. I would like herto come back to the office on Thursday [...] to develop a thrombophlebitis. documented in this encounterSullivan County Memorial HospitalVejtsictxs59-73-8539 History of Present illness Narrative* Catracho Sheriff MD - 04/26/2024 1:45 PM EDT Images from the original note were not included. Patient ID: Jenny Ewing is a 73 y.o. female who presents for: She is here with her friend Radha garcia. Wound Check Patient presents for initial wound check. Patient has a multiple wounds which is located on the both right and left leg with left leg worse than the right. Current symptoms: redness, swelling, warmthwith several small ulcers on each lower leg on the shins and calves and left leg has an ulcer a little over half dollar size. Symptoms began several days ago. Interventions to date: she has been selfdressing and using bacitracin. Review of Systems Constitutional: [...] right leg. The 1 with a hernan puswas on the left lateral side of the [...] at lunch, and2 tablets in the evening 270 tablet 0 [...] in the morning and 1 tablet (20 mg)before bedtime. 60 tablet 2 Flovent HFA 220 MCG/ACT inhaler Inhale 1 puff in the morning and 1 puff before bedtime. gabapentin (Neurontin) 100 MG capsule Take 1 capsule (100 mg) by mouth in the morning and 1 capsule(100 mg) in the evening and 1 capsule (100 mg) before bedtime. 270 capsule 1 glucosamine-chondroitin 750-600 MG tablet tablet Take 2 tablets by mouth 1 (one) time each day ipratropium-albuterol (Duo-Neb) 0.5-2.5 mg/3 mL nebulizer solution Take 3 mL by nebulization in themorning and 3 mL at noon and 3 mL in the evening and 3 mL before bedtime. 1080 mL 1 iron polysaccharides (Nu-Iron,Niferex) 150 MG capsule Take 150 mg by mouth every other day levothyroxine (Synthroid) 150 MCG tablet Take 1 tablet daily 90 tablet 1 mirtazapine (Remeron) 30 MG tablet Take 1 tablet (30 mg) by mouth at bedtime 90 tablet 1 [place]-3 Fatty Acids (Fish Oil) 1000 MG capsule [...] after debriding it. We did place Telfa dressingwith bacitracin antibiotic ointment over all of the [...] with at least 8 ounces (large glass) ofwater. Dispense: 28 capsule; Refill: 0 Chronic problem The patient meets the criteria for polypharmacy; 5 or more prescriptions or multi-morbidity definedas 5 or more diagnoses. Polypharmacy can significantly increase the risk of preventable adverse drug events and negatively impact adherence. Consideration of diverse factors such as clinician agreement, patient perspective,and de-prescribing, as appropriate can improve patient outcomes while simplifying care. This requires longitudinal monitoring as there is at least a moderate risk of morbidity and requires at least amoderate degree of evaluation and management. 3. Venous ulcer of lower extremity due to chronic peripheral venous hypertension (HCC) (CMS/HCC) She has not multiple bilateral non pressure ulcers secondary to the venous insufficiency. She just kept saying over and over again she can not understand. I explained to her several times and I askedher friend choice if she understood the explanation [...] was met with resistance. documented in this encounterSullivan County Memorial [id number] History of Present illness Narrative* Catracho Sheriff MD - 04/14/2024 9:30 AM EDT Images from the original note were not [...] for sleep disturbance. Negative for agitation, behavioral problemsand suicidal ideas. The patient is nervous/anxious. They also had some questions about her medications. She had recent EGD with duodenal stricture. Pathology pending. She stated the surgeon prescribed a new PPI for her. That would cause her to have toPPIs. Objective Appearance: Well-groomed, in no acute distress [...] at lunch, and2 tablets in the evening 270 tablet 0 [...] by mouth in the morning and 1 capsule(100 mg) in the evening and 1 capsule (100 mg) before bedtime. 270 capsule 1 glucosamine-chondroitin 750-600 MG tablet tablet Take 2 tablets by mouth 1 (one) time each day ipratropium-albuterol (Duo-Neb) 0.5-2.5 mg/3 mL nebulizer solution Take 3 mL by nebulization in themorning and 3 mL at noon and 3 mL in the evening and 3 mL before bedtime. 1080 mL 1 levothyroxine (Synthroid) 150 MCG tablet Take 1 tablet daily 90 tablet 1 mirtazapine (Remeron) 30 MG tablet Take 1 tablet (30 mg) by mouth at bedtime 90 tablet 1 [place]-3 Fatty Acids (Fish Oil) 1000 MG capsule [...] problems if not taken the correct way, ortaken with another drug or food item that [...] and 2 tablets (100 mg) before bedtime. Dispense:240 tablet; Refill: 2 - baclofen (Lioresal) 20 [...] polypharmacy; 5 or more prescriptions or multi-morbidity definedas 5 or more diagnoses. Polypharmacy can significantly increase the risk of preventable adverse drug events and negatively impact adherence. Consideration of diverse factors such as clinician agreement, patient perspective,and de-prescribing, as appropriate can improve patient outcomes while simplifying care. This requires longitudinal monitoring as there is at least a moderate risk of morbidity and requires at least amoderate degree of evaluation and management. 12. Duodenal [...] to take both a bottle of the Protonixand the famotidine with her specifically so that [...] surface area. The better would be to useTelfa with either a Delbert wrap or Coban wrapped keep it in place. She understands if this is significantly worsening she needs to seek medical care. documented in this encounterSullivan County Memorial HospitalRteeonjcau30-06-1442 History of Present illness Narrative* Trini Walker RN - 03/29/2024 3:30 PM EDT Pre-op Instructions For Out-Patient Endoscopy Surgery Medication [...] lotion, powder, jewelry, piercings, perfume, makeup, nail senegalese, hair accessories, or hair spray on the day of surgery. Wear loose comfortable clothing. Leave your valuables at home but bring a payment source for any after-surgery prescriptions you plan to fill at [facility]. Bring a storage case for any glasses/contacts. An adult who is responsible for you MUST drive you home and should be with you for the first 24 hours after surgery. The Day of Surgery: Arrive at [facility] at the time directed by your surgeon and check in at the desk. If you have a living will or healthcare power of erisa attorney, please bring a copy. You will be taken to the pre-op holding area where you will be prepared for surgery. A physical assessment will be performed by a nurse practitioner or warehouse shipping associate. Your IV will be started and you will meet your anesthesiologist. When you go to surgery, your family will be directed to the surgical waiting room, where the doctorshould speak with them after your surgery. After surgery, you will be taken to the recovery area. When you are alert and stable, you will receive instructions and be prepared for discharge. INSTRUCTIONS REVIEWED WITH MICHELINE DIAZ. EGD W/BIOPSY AND POSSIBLE DILATION- 04/12/2024 [facility] Dis[facility]* Discharge Instructions* Drew Lund RN - 01/29/2024 1:09 PM [...] throat or neck pain [facility] History of Present illness Narrative* Nicolasa Pacheco RN - 12/03/2023 6:02 PM EDT Pt transport via wheelchair with ambulance to facility. On O2, has belongings. 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 Strength: Not Performed Nutrition Assessment: Diet advanced [...] Measures: Height: 160 cm (5' 2.99 ) [place] Body Weight (IBW): 115 lbs (52 kg) [...] Used for Energy Requirements: Admission Energy (kcal/day): 9910-0981 kcals/day Weight Used for Protein Requirements: Admission Protein (g/day): 80 to 100 g/day Method Used for Fluid Requirements: 1 ml/kcal Fluid (ml/day): 6863-6206 mL/day or per MD Nutrition Diagnosis: Inadequate [...] GI Status, Fluid Status or Edema, Weight, Skin,Nutrition Focused Physical Findings, Hemodynamic Status Discharge Planning: Continue Oral Nutrition Supplement Zenobia Negrtee RD Contact: [phone] * Carol Abreu MD - 12/03/2023 8:14 AM EDT Images from the original note were not included. [facility] Office: [phone] Alvin Ma DO, Erick Burns DO, Varghese [...] Lugo MD, Bruce Pozo MD, Aida Montemayor, FARM EQUIPMENT MAINTENANCE SUPERVISOR, Nereyda Patiño, FARM EQUIPMENT MAINTENANCE SUPERVISOR, Vito Calabrese, FARM EQUIPMENT MAINTENANCE SUPERVISOR, Karime Keane, [facility],Halima Mason, FARM EQUIPMENT MAINTENANCE SUPERVISOR, Carmen Orozco, FARM EQUIPMENT MAINTENANCE SUPERVISOR, Kathy Flores, FARM EQUIPMENT MAINTENANCE SUPERVISOR, Farnaz Lucas, FARM EQUIPMENT MAINTENANCE SUPERVISOR, Maricel Burger, PA-C, Alicia Veliz, PA-C, Olivia Stiles, FARM EQUIPMENT MAINTENANCE SUPERVISOR, Ying Singleton, FARM EQUIPMENT MAINTENANCE SUPERVISOR, Vikas Laird, FARM EQUIPMENT MAINTENANCE SUPERVISOR, Mira Pina,FARM EQUIPMENT MAINTENANCE SUPERVISOR, Briana Lim, FARM EQUIPMENT MAINTENANCE SUPERVISOR, Shirley Johnson, [facility], Jenny Denise, FARM EQUIPMENT MAINTENANCE SUPERVISOR, Jasmine Leong, FARM EQUIPMENT MAINTENANCE SUPERVISOR, Janice Perla, FARM EQUIPMENT MAINTENANCE SUPERVISOR [facility] IN-PATIENT SERVICE [facility] Progress Note 12/03/2023 8:14 AM Name: Jenny Ewing Acct: [id number] Room: Day: 8 Admit Date: 11/25/2023 4:07 [...] of smoking, depression, back pain presents with maroonand black stools at home as well as a fall. Patient has history of GI bleed was clipped ad EGD, reports not available. Patient has hemoglobin of 6.6. 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 They were sent to her pharmacy [...] Positive for weakness. Negative for dizziness, seizures, light- headedness and headaches. Psychiatric/Behavioral: Negative for agitation, behavioral [...] sodium chloride syringe, sodium chloride flush, sodium chloride,HYDROmorphone, HYDROmorphone, labetalol OR hydrALAZINE, LORazepam, loperamide, midodrine, melatonin, potassium chloride OR potassium alternative oral replacement OR potassium chloride, mag nesium sulfate, sodium chloride, ondansetron OR ondansetron, acetaminophen [...] input(s): PROT , LABALBU , LABA1C , G8FABQZ , K4OTVLT , FT4 , TSH , AST , ALT , LDH , GGT , ALKPHOS , BILITOT , BILIDIR , AMMONIA , AMYLASE , LIPASE , LACTATE , CHOL , HDL , CHOLHDLRATIO , TRIG , VLDL , SVX15FZ , PHENYTOIN , PHENYF , URICACID , POCGLU in the last 72 hours. 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 XR CHEST PORTABLE Result Date: 11/27/2023 Right [...] Yes Plan: New onset A-fib with RVR [id number] 5-currently in normal sinus rhythm. Evaluated by [...] SNF.. Carol Abreu MD 12/03/2023 8:14 AM * Manasa Pollock MD - 12/02/2023 3:[address] [facility] Gastroenterology Progress Note Jenny Ewing is [...] there is small nipple in the base ofthe ulcer which could be small vessels, nevertheless [...] CBC: Recent Labs 11/30/23 0204 11/30/23 0730 11/30/23201212/01/23 0145 12/01/23 1021 12/01/23 1513 12/02/23 0652 [...] results for input(s): TIBC , FERRITIN , KNUDNURY27 , FOLATE , OCCULTBLD in the last [...] large duodenal ulcer with small nipple at base- treated with epi. No rectal bleeding overnight, hemoglobin [...] me with any questions or concerns. [facility] Gastroenterology PATY Quijano CNP [phone] 12/02/2023 3:14 PM Estimated time of 20 [...] stable at 8.2 Advance diet Continue PPI * Carol Abreu MD - 12/02/2023 9:48 AM EDT Images from the original note were not included. [facility] Office: [phone] Alvin Ma DO, Erick Burns DO, Varghese [...] Patiño CNP, Vito Calabrese CNP, Karime Keane, AAYUSH,Halima Mason CNP, Carmen Orozco, FARM EQUIPMENT MAINTENANCE SUPERVISOR, Kathy Flores CNP, Farnaz Lucas CNP, Maricel Burger PAGarrettC, Alicia Veliz PA-C, Olivia Stiles CNP, Ying Singleton FARM EQUIPMENT MAINTENANCE SUPERVISOR, Vikas Laird FARM EQUIPMENT MAINTENANCE SUPERVISOR, Mira Pina,FARM EQUIPMENT MAINTENANCE SUPERVISOR, Briana Lim, FARM EQUIPMENT MAINTENANCE SUPERVISOR, Shirley Johnson, YOUSIF, Jenny Denise, OSVALDO, Jasmine Leong CNP, Janice Perla, FARM EQUIPMENT MAINTENANCE SUPERVISOR [facility] IN-PATIENT SERVICE [facility] Progress Note 12/02/2023 9:48 AM Name: Jenny Ewing Acct: [id number] Room: IP Day: 7 Admit Date: 11/25/2023 4:07 AM PCP: No primary care provider on file. Code Status: Full Code Subjective: C/C: GI bleed Interval History Status: stable. Patient seen examined at bedside. Denies any current complaints today. Hemoglobin stable. Medicallystable for discharge. Patient initially refused SNF but now want to discuss with her daughter aboutgoing to SNF versus home with home care. Brief History: 73 year old female with past medical history of smoking, depression, back pain presents with maroonand black stools at home as well as a fall. Patient has history of GI bleed was clipped ad EGD, reports not available. Patient has hemoglobin of 6.6. 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 They were sent to her pharmacy [...] Positive for weakness. Negative for dizziness, seizures, light- headedness and headaches. Psychiatric/Behavioral: Negative for agitation, behavioral [...] sodium chloride syringe, sodium chloride flush, sodium chloride,HYDROmorphone, HYDROmorphone, ondansetron, labetalol OR hydrALAZINE, LORazepam, loperamide, midodrine, melatonin, potassium chloride OR potassium alternative oral replacement OR potassiumchloride, magnesium sulfate, sodium chloride, ondansetron OR ondansetron, [...] (5' 2.99 ) Wt 88 kg (194 lb0.1 oz) SpO2 100% BMI 34.38 kg/m Temp (24hrs), Av.3 F (36.8 C), Min:97.8 F (36.6 C), Max:98.6 F (37 C) Recent Labs 11/30/23 0758 POCGLU 79 I/O (24Hr): Intake/Output Summary (Last 24 hours) at 12/02/2023 0948 Last data filed at 12/01/2023 2347 Gross per 24 hour Intake -- Output 1400 ml Net -1400 ml Labs: Hematology: Recent Labs 11/30/2320311/30/2372912/01/2314412/01/23 1021 12/01/23 1513 12/02/23 0652 WBC 8.7 [...] , PHART , PH , POCPCO2 , PWJ6VUG , PCO2 , POCPO2 , PO2ART , PO2 , POCHCO3 , DRI8YIJ , HCO3 , NBEA , PBEA , BEART , BE , THGBART , THB , OAG9ILV , XGJL8NIX , P5SZKABX , O2SAT , FIO2 No results found [...] 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 XR CHEST PORTABLE Result Date: 11/27/2023 Right [...] versus home with home care with daughter. 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 Carol Abreu MD 12/02/2023 9:48 AM * Alicia Farmer, OT - 12/02/2023 9:37 AM EDT Occupational Therapy Facility/Department: [facility] CAR 2- STEPDOWN Occupational Therapy Initial [...] of 6.6. received 1 unit transfusion at [facility]. 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 They were sent to her pharmacy on Thursday but has not been able to getthem. Pt had EGD this date (12/01/23) Upper GI endoscopy with Biopsy Discharge Recommendations: Patient would benefit from continued therapy after discharge OT Equipment Recommendations Equipment Needed: Yes Mobility Devices: Walker;ADL Assistive Devices Walker: Rolling ADL Assistive Devices: Shower Chair with back Further therapy recommended at discharge.The patient should be able to tolerate at least 3 hours oftherapy per day over 5 days or 15 [...] session this date; engaging in functional activities andrepositioned Social/Functional History Social/Functional History Lives With: Alone [...] Ambulation Assistance: Independent Transfer Assistance: Independent Active Electronic Engineering Technician: No (pt states she hasn't driven in ~5 years--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 but can't afford to have [...] reach;Chair alarm in place;Gait belt;Heels elevated for pressurerelief;Patient at risk for falls;Left in chair;Nurse notified Restraints Restraints Initially in Place: No Bed Mobility Training Bed Mobility Training: No (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 and 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 session seated in [...] understanding;Demonstrated understanding Hand Dominance Hand Dominance: Right AM-[facility] - ADL AM-[facility] Daily Activity - Inpatient How much help [...] How much help for eating meals?: None AM-[facility] Inpatient [facility]: [facility] T-Scale Score : 40.22 ADL Inpatient CMS 0-100% Score: 42.8 ADL Inpatient [facility] G-Code Modifier : CK Goals Short Term [...] Treatment Minutes: 25 Minutes Alicia Farmer OT * Roselyn Santos, PT - 12/01/2023 3:30 PM EDT Physical Therapy Facility/Department: [facility] CAR [facility]- [facility]OWN Physical Therapy Initial Assessment Name: Jenny Ewing : 1950 Date of Service: 12/01/2023 Jenny Ewing is a 73 y.o.female who presents with GI bleed. 73 year old female with past medical history of smoking, depression, back pain presents with maroonand black stools at home as well as a fall. Patient has history of GI bleed was clipped ad EGD, reports not available. Patient has hemoglobin of 6.6. 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 They were sent to her pharmacy [...] there is small nipple in the base ofthe ulcer which could be small vessels, nevertheless [...] Reassurance given and PT spoke with DC facility planner and told pt's concerns. 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 [facility] Office: [phone] Alvin Ma DO, Erick Burns DO, Varghese [...] Pozo MD, Aida Montemayor CNP, Nereyda Patiño FARM EQUIPMENT MAINTENANCE SUPERVISOR, Vito Calabrese, FARM EQUIPMENT MAINTENANCE SUPERVISOR, Karime Keane, AAYUSH,Halima Mason, FARM EQUIPMENT MAINTENANCE SUPERVISOR, Carmen Orozco, FARM EQUIPMENT MAINTENANCE SUPERVISOR, Kathy Flores FARM EQUIPMENT MAINTENANCE SUPERVISOR, Farnaz Lucas, FARM EQUIPMENT MAINTENANCE SUPERVISOR, Maricel Burger, PA-C, Alicia Veliz, PA-C, Olivia Stiles, FARM EQUIPMENT MAINTENANCE SUPERVISOR, Ying Singleton, FARM EQUIPMENT MAINTENANCE SUPERVISOR, Vikas Laird, FARM EQUIPMENT MAINTENANCE SUPERVISOR, Mira Pina,FARM EQUIPMENT MAINTENANCE SUPERVISOR, Briana Lim, FARM EQUIPMENT MAINTENANCE SUPERVISOR, Shirley Johnson, IT HELP DESK ANALYST, Jenny Denise, FARM EQUIPMENT MAINTENANCE SUPERVISOR, Jasmine Leong FARM EQUIPMENT MAINTENANCE SUPERVISOR, Janice Perla, FARM EQUIPMENT MAINTENANCE SUPERVISOR [facility] IN-PATIENT SERVICE [facility] Progress Note 12/01/2023 3:27 PM Name: Jenny Ewing Acct: [id number] Room: IP Day: 6 Admit Date: 11/25/2023 [...] to go to SNF insisted on going home.Patient lives by herself. Will monitor overnight and plan for discharge tomorrow morning. Brief History: 73 year old female with past medical history of smoking, depression, back pain presents with maroonand black stools at home as well as a fall. Patient has history of GI bleed was clipped ad EGD, reports not available. Patient has hemoglobin of 6.6. 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 They were sent to her pharmacy [...] Positive for weakness. Negative for dizziness, seizures, light- headedness and headaches. Psychiatric/Behavioral: Negative for agitation, behavioral [...] sodium chloride syringe, sodium chloride flush, sodium chloride,HYDROmorphone, HYDROmorphone, ondansetron, labetalol OR hydrALAZINE, LORazepam, loperamide, midodrine, melatonin, potassium chloride OR potassium alternative oral replacement OR potassiumchloride, magnesium sulfate, sodium chloride, ondansetron OR ondansetron, acetaminophen OR acetaminophen, fentanNYL, albuterol sulfate HFA, hypromellose, sodium chloride, traMADol Data: Past Medical History: has a past medical history of Anxiety, Arthritis, Cerebral artery occlusion with cerebral infarction (HCC), COPD (chronic obstructive pulmonary disease) ([facility]), Depression, History of blood transfusion, and Thyroid [...] 560 ml Labs: Hematology: Recent Labs 11/29/23 0911/29/23 1608 11/30/23 0204 11/30/23 0730 11/30/23201212/01/23 0145 12/01/23 1021 WBC 12.2* [...] , PHART , PH , POCPCO2 , GDR4HWK , PCO2 , POCPO2 , PO2ART , PO2 , POCHCO3 , ZAY0QBA , HCO3 , NBEA , PBEA , BEART , BE , THGBART , THB , JHN8ICD , HOEM8LQV , H3LDUTHO , O2SAT , FIO2 No results found [...] 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 XR CHEST PORTABLE Result Date: 11/27/2023 Right [...] Continued on PPI. Hemoglobin stable. Restarted diet. RepeatEGD in 4 to 6 weeks. Sinusitis-continue Augmentin [...] tomorrow. Carol Abreu MD 12/01/2023 3:27 PM * Byron Queen MD - 12/01/2023 2:52 PM EDT hysician Progress Note Patient - Jenny Ewing [...] blood. EGD performed on 11/24 showed a largeduodenal ulcer. Gastroenterology was consulted, PPI drip started. IR consulted on 11/26, embolizationof the gastroduodenal artery with 3 coils placed. [...] oropharynx clear, no lesions, neck supple with midlinetrachea. Neck: Supple, symmetrical, trachea midline, no adenopathy, [...] keep sats >92 % Will sign off * Yojana Beverly RN - 12/01/2023 8:25 AM EDT Report called to Adriane in [place] * Carla Scott RD, LD - 11/30/2023 3:32 PM EDT Comprehensive Nutrition Assessment Type and Reason for [...] Unable to assess Fluid Accumulation: Mild Extremities Bushel Worker Strength: Not Performed Nutrition Assessment: Pt started [...] Measures: Height: 160 cm (5' 2.99 ) [place] Body Weight (IBW): 115 lbs (52 kg) [...] Used for Energy Requirements: Admission Energy (kcal/day): 2820-4639 kcals/day Weight Used for Protein Requirements: Admission Protein (g/day): 80 to 100 g/day Method Used for Fluid Requirements: 1 ml/kcal Fluid (ml/day): 1910-0046 mL/day or per MD Nutrition Diagnosis: Inadequate [...] GI Status, Fluid Status or Edema, Weight, Skin,Nutrition Focused Physical Findings, Hemodynamic Status Discharge Planning: Too soon to determine Carla Scott RD, [place] Contact: [phone] * Diana Joseph MD - 11/30/2023 12:31 PM EDT Images from the original note were not included. [facility] Office: [phone] Alvin Ma DO, Erick Burns DO, Varghese [...] Deanna Coyle MD, Carlos Jaquez, DO, Reynaldo Hameed, DO, Jie Lugo MD, Bruce Pozo MD, Aida Montemayor, FARM EQUIPMENT MAINTENANCE SUPERVISOR, Nereyda Patiño, FARM EQUIPMENT MAINTENANCE SUPERVISOR, Vito Calabrese, FARM EQUIPMENT MAINTENANCE SUPERVISOR, Karime Keane, DNP,Halima Mason, FARM EQUIPMENT MAINTENANCE SUPERVISOR, Carmen Orozco, FARM EQUIPMENT MAINTENANCE SUPERVISOR, Kathy Flores, FARM EQUIPMENT MAINTENANCE SUPERVISOR, Farnaz Lucas, FARM EQUIPMENT MAINTENANCE SUPERVISOR, Maricel Burger PAGarrettC, Alicia Veliz PAGarrettC, Olivia Stiles, FARM EQUIPMENT MAINTENANCE SUPERVISOR, Ying Singleton, FARM EQUIPMENT MAINTENANCE SUPERVISOR, Vikas Laird, FARM EQUIPMENT MAINTENANCE SUPERVISOR, Mira Pina,FARM EQUIPMENT MAINTENANCE SUPERVISOR, Briana Lim, FARM EQUIPMENT MAINTENANCE SUPERVISOR, Shirley Johnson, IT HELP DESK ANALYST, Jenny Denise, FARM EQUIPMENT MAINTENANCE SUPERVISOR, Jasmine Leong, FARM EQUIPMENT MAINTENANCE SUPERVISOR, Janice Perla, FARM EQUIPMENT MAINTENANCE SUPERVISOR [facility] IN-PATIENT SERVICE [facility] Progress Note 11/30/2023 12:31 PM Name: Jenny Ewing Acct: [id number] Room: IP Day: 5 Admit Date: 11/25/2023 [...] of smoking, depression, back pain presents with maroonand black stools at home as well as a fall. Patient has history of GI bleed was clipped ad EGD, reports not available. Patient has hemoglobin of 6.6. 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 They were sent to her pharmacy [...] Positive for weakness. Negative for dizziness, seizures, light- headedness and headaches. 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 XR CHEST PORTABLE Result Date: 11/27/2023 Right [...] bleed. Diana Joseph MD 11/30/2023 12:31 PM * Gino Quarles DO - 11/30/2023 10:16 AM EDT Critical care team - Resident sign-out to medicine service Date and time: 11/30/2023 10:16 AM Patient's name: Jenny Ewing Patient's account/billing number: [id number] Patient's Date of : 1950 Age: 73 y.o. Date of Admission: 11/25/2023 4:07 AM Length of stay during current admission: 5 Primary Care Physician: No primary care provider on file. Code Status: Full Code Mode of physician to physician communication: [x] Via telephone [] In person Date and time of sign-out: 11/30/2023 10:16 AM Accepting Internal Medicine AIR MOVING TECHNICIAN: Karime Keane Accepting Medicine team: Intermed Accepting [...] Ht 1.6 m (5' 3 ) Comment: perpatient Wt 81.6 kg (180 lb) SpO2 (!) [...] admitting resident will be following up the patientfrom now onwards on the floor. Gino Quarles Emergency Medicine Resident [facility] 11/30/2023 10:16 AM * Gino Quarles DO - 11/30/2023 8:14 AM EDT INTENSIVE CARE UNIT Resident Physician Progress Note [...] blood. EGD performed on 11/24 showed a largeduodenal ulcer. Gastroenterology was consulted, PPI drip started. IR consulted on 11/26, embolizationof the gastroduodenal artery with 3 coils placed. [...] 73 17 92 % 11/30/23 0426 (!) 98.5 F (36.9 C) Oral 75 18 91 % 11/30/23 0420 (!) 98.5 F (36.9 C) Oral 70 14 [...] oropharynx clear, no lesions, neck supple with midlinetrachea. Neck: Supple, symmetrical, trachea midline, no adenopathy, [...] sodium chloride sodium chloride pantoprazole 8 mg/hr (11/30/23 0552) sodium chloride sodium chloride sodium chloride Stopped [...] 05:02 AM Basic Metabolic Profile: Recent Labs 11/28/2333311/29/2391911/30/23 020 NA 135* 135* 138 K 3.7 [...] Bank Sample Expiration 11/28/2023,2359 Arm Band Number [id number] ABO/Rh A POSITIVE Antibody Screen NEGATIVE Unit Number [id number] Component Leukocyte Reduced Red Cell Unit Divison 00 Dispense Status Blood Bank TRANSFUSED Unit Issue Date/Time [id number] Product Code Blood Bank [id number] Blood Bank Unit Type and Rh A POS Blood Bank ISBT Product Blood Type 6200 Blood Bank Blood Product Expiration Date [id number] Transfusion Status OK TO TRANSFUSE Crossmatch Result COMPATIBLE Unit Number [id number] Component Leukocyte Reduced Red Cell Unit Divison 00 Dispense Status Blood Bank TRANSFUSED Unit Issue Date/Time 062805669015 Product Code Blood Bank J0754X17 Blood Bank Unit Type and Rh A POS Blood Bank ISBT Product Blood Type 6200 Blood Bank Blood Product Expiration Date Transfusion Status OK TO TRANSFUSE Crossmatch Result COMPATIBLE Unit Number [id number] Component Leukocyte Reduced Red Cell Unit Divison 00 Dispense Status Blood Bank TRANSFUSED Unit Issue Date/Time 082827963024 Product Code Blood Bank J7039T18 Blood Bank Unit Type and Rh A POS Blood Bank ISBT Product Blood Type 6200 Blood Bank Blood Product Expiration Date Transfusion Status OK TO TRANSFUSE Crossmatch Result COMPATIBLE TYPE AND SCREEN Result Value Ref Range Blood Bank Sample Expiration 12/02/2023,2359 Arm Band Number [id number] ABO/Rh A POSITIVE Antibody Screen NEGATIVE Unit Number [id number] Component Leukocyte Reduced Red Cell Unit Divison 00 Dispense Status Blood Bank TRANSFUSED Unit Issue Date/Time 451668016168 Product Code Blood Bank [id number] Blood Bank Unit Type and Rh A POS Blood Bank ISBT Product Blood Type 6200 Blood Bank Blood Product Expiration Date Transfusion Status OK TO TRANSFUSE Crossmatch Result COMPATIBLE Unit Number [id number] Component Leukocyte Reduced Red Cell Unit Divison 00 Dispense Status Blood Bank TRANSFUSED Unit Issue Date/Time 596514163228 Product Code Blood Bank [id number] Blood Bank Unit Type and Rh A POS Blood Bank ISBT Product Blood Type 6200 Blood Bank Blood Product Expiration Date Transfusion Status OK TO TRANSFUSE Crossmatch Result COMPATIBLE Unit Number [id number] Component Leukocyte Reduced Red Cell Unit Divison 00 Dispense Status Blood Bank ISSUED Unit Issue Date/Time 255573981523 Product Code Blood Bank [id number] Blood Bank Unit Type and Rh A [...] Disposition: Patient is appropriate for transfer to [facility], continued evaluation By GI. DISPOSITION: [] [...] degrees Ulcer prophylaxis: [x] PPI Agent, [] M5Nhrom, [] Sucralfate, [] Other: Glycemic control: Controlled Spontaneous breathing trial: Not indicated Bowel regimen/urine output: Continue to monitor Indwelling catheter/lines: Bilateral peripheral IV De-escalation: Transfer to [facility] Gino Quarles DO Emergency Medicine Resident 11/30/23 8:15 AM Associated attestation - Arnaud Bryant MD - 11/30/2023 8:08 PM EDT Attending Physician Statement I have discussed the case of Jenny Ewing, including pertinent history and exam findings with the resident/fellow/medical student/AIR MOVING TECHNICIAN/PA. I have seen and examined the patient and the jiménez elementsof the encounter have been performed by me. I agree with the assessment, plan and orders as documented by the resident/fellow/medical student/AIR MOVING TECHNICIAN/PA With changes made to the note as needed. Pt was seen during rounds. Review of Systems: In addition to the pertinent positives and negatives as stated within HPI and the review of systemsas documented in their notes, all other systems were reviewed when able to and are reported negative. Please see my attestation for the H&P Arnaud Bryant MD 11/30/2023 8:08 PM * Manasa Pollock MD - 11/30/2023 7:53 AM EDT [facility] Gastroenterology Progress Note Jenny Ewing is [...] 17 Ht 1.6 m (5' 3 ) Comment:per patient Wt 81.6 kg (180 lb) SpO2 [...] results for input(s): TIBC , FERRITIN , AKCBHPQA34 , FOLATE , OCCULTBLD in the last 72 hours. Invalid input(s): LABIRON BMP: Recent Labs 11/28/23 0334 11/29/23 0911/30/23 0204 NA 135* 135* 138 K 3.7 3.3* 4.4 CL 105 103 108* CO2 21 23 26 BUN 10 9 12 CREATININE 0.3* 0.4* 0.4* GLUCOSE 88 210* 83 CALCIUM 6.4* 6.7* 6.6* MG -- 1.7 -- LFTS: Recent Labs 11/29/23 0920 ALKPHOS 45 ALT 19 AST 27 BILITOT [...] me with any questions or concerns. [facility] Gastroenterology [facility] Systemg[facility]ia Jarrell, COMPONENT TECHNICIAN - FARM EQUIPMENT MAINTENANCE SUPERVISOR [phone] 11/30/2023 7:54 AM Estimated time of 20 [...] repeat her EGD Continue PPI H&H monitoring * Nova Alonzo - 11/29/2023 8:55 PM EDT Advance Care Planning Advance Care Planning Inpatient Note [facility] Department Today's Date: 11/29/2023 Unit: [facility] CAR 3- MICU Received request from HealthCare Provider. Upon review of chart and communication with care team, patient's decision making abilities are not in question.. Patient was/were present in the room duringvisit. Goals of ACP Conversation: Discuss advance care planning documents Health Care Decision Makers: No healthcare decision makers have been documented. Click here to complete HealthCare Decision Makers including selection of the Healthcare Decision Maker Relationship (ie Primary ) Summary: Completed New Documents Advance Care Planning Documents (Patient Wishes): Healthcare Power of Bread Distributor/Advance Directive Appointment of Health Care Agent Assessment: [...] Gratitude;Expressed feelings, needs, and concerns;Engaged in conversation * Deanan Coyle MD - 11/29/2023 5:23 PM EDT Called IR x4 at 17:23 pm to provide advance notice of possible need for IR intervention. All calls through [employer] would ring but unable to be connected. * Deanna Coyle MD - 11/29/2023 4:50 PM EDT Re-evaluated patient around 16:30, patient SBP in the 70s to low 80s even after 500 ml NS IVF x2, Midodrine 10 mg x2 and 1 unit of PRBC. Hgb recheck s/p transfusion was down to 6.0 from 6.2. Discussed with GI, 2 units PRBC ordered STAT, CTA abdomen STAT and critical care consulted. Patientis likely to need an IR consult for intervention depending on results of CTA. Patient is resting, alert and oriented x3. Denies any CP, SOB, FORBES, lightheadedness, nausea or vomiting * Deanna Coyle MD - 11/29/2023 12:16 PM EDT Patient on commode when she went stiff and had an episode of shaking. BP 84/67. Arrived at bedside and patient complained of SOB. She is alert and oriented. Patient placed on NRB.O2 saturation >90%. Patient denies any CP, lightheadedness, nausea or vomiting. Patient started on 500 ml bolus NS IVF, 1 unit of PRBC ordered from this morning has yet to be given for Hgb 6.2. Patient also given a dose of ativan for anxiety. Patient improved. Midodrine is ordered for SBP <100. Will reassess once IVF and blood transfusion completed * Deanna Coyle MD - 11/29/2023 9:01 AM EDT Images from the original note were not included. [facility] Office: [phone] Alvin Ma DO, Erick Burns DO, Varghese [...] Lugo MD, Bruce Pozo MD, Aida Montemayor, FARM EQUIPMENT MAINTENANCE SUPERVISOR, Nereyda Patiño, FARM EQUIPMENT MAINTENANCE SUPERVISOR, Vito Calabrese, FARM EQUIPMENT MAINTENANCE SUPERVISOR, Karime Keane, [facility],Halima Mason, FARM EQUIPMENT MAINTENANCE SUPERVISOR, Carmen Orozco, FARM EQUIPMENT MAINTENANCE SUPERVISOR, Kathy Flores, FARM EQUIPMENT MAINTENANCE SUPERVISOR, Farnaz Lucas, FARM EQUIPMENT MAINTENANCE SUPERVISOR, Maricel Burger, PA-C, Alicia Veliz, PA-C, Olivia Stiles, FARM EQUIPMENT MAINTENANCE SUPERVISOR, Ying Singleton, FARM EQUIPMENT MAINTENANCE SUPERVISOR, Vikas Laird, FARM EQUIPMENT MAINTENANCE SUPERVISOR, Mira Pina,FARM EQUIPMENT MAINTENANCE SUPERVISOR, Briana Lim, FARM EQUIPMENT MAINTENANCE SUPERVISOR, Shirley Johnson, [facility], Jenny Denise, FARM EQUIPMENT MAINTENANCE SUPERVISOR, Jasmine Leong, FARM EQUIPMENT MAINTENANCE SUPERVISOR, Janice Perla, FARM EQUIPMENT MAINTENANCE SUPERVISOR [facility] IN-PATIENT SERVICE [facility] Progress Note 11/29/2023 9:01 AM Name: Jenny Ewing Acct: [id number] Room: [address] [place] [address] Day: 4 Admit Date: 11/25/2023 4:07 AM [...] of smoking, depression, back pain presents with maroonand black stools at home as well as a fall. Patient has history of GI bleed was clipped ad EGD, reports not available. Patient has hemoglobin of 6.6. 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 They were sent to her pharmacy [...] Arthritis, Cerebral artery occlusion with cerebral infarction ([facility]), COPD (chronic obstructive pulmonary disease) (HCC), Depression, [...] ending 11/29/23 0901 Labs: Hematology: Recent Labs 11/27/23200811/27/23211011/28/23333 HGB 5.9* 5.7* 7.5* HCT 18.0* 17.9* 24.0* Chemistry: Recent Labs 11/27/23 0354 11/28/23 0334 NA 134* 135* K 3.4* 3.7 CL 105 105 CO2 22 21 GLUCOSE 83 88 BUN 7* 10 CREATININE 0.4* 0.3* MG 1.9 -- ANIONGAP 7* 9 LABGLOM >90 >90 CALCIUM 6.3* 6.4* No results for input(s): PROT , LABALBU , LABA1C , B1CKYOU , U8VMRUV , FT4 , TSH , AST , ALT , LDH , GGT , ALKPHOS , BILITOT , BILIDIR , AMMONIA , AMYLASE , LIPASE , LACTATE , CHOL , HDL , CHOLHDLRATIO , TRIG , VLDL , SFN96VC , PHENYTOIN , PHENYF , URICACID , POCGLU in the last 72 hours. Invalid input(s): LABGGT , LDLCHOLESTEROL ABG:No results found for: POCPH , PHART , PH , POCPCO2 , ZVE0REK , PCO2 , POCPO2 , PO2ART , PO2 , POCHCO3 , JPK9ZNM , HCO3 , NBEA , PBEA , BEART , BE , THGBART , THB , JCT7AOD , PAYX7LFF , G0ZTWSPQ , O2SAT , FIO2 No results found [...] nightly Deanna Coyle MD 11/29/2023 9:01 AM * Abisai Nava RN - 11/29/2023 1:28 AM EDT Patient was having increased bouts of diarrhea. AIR MOVING TECHNICIAN notified. Imodium ordered. * Deanna Coyle MD - 11/28/2023 9:54 AM EDT Images from the original note were not included. [facility] Office: [phone] Alvin Ma DO, Erick Burns DO, Varghese [...] Deanna Coyle MD, Carlos Jaquez DO, Reynaldo Hameed, DO, Jie Lugo MD, Bruce Pozo MD, Aida Montemayor, FARM EQUIPMENT MAINTENANCE SUPERVISOR, Nereyda Patiño, FARM EQUIPMENT MAINTENANCE SUPERVISOR, Vito Calabrese, FARM EQUIPMENT MAINTENANCE SUPERVISOR, Karime Keane, AAYUSH,Halima Mason, FARM EQUIPMENT MAINTENANCE SUPERVISOR, Carmen Orozco, FARM EQUIPMENT MAINTENANCE SUPERVISOR, Kathy Flores, FARM EQUIPMENT MAINTENANCE SUPERVISOR, Farnaz Lucas, FARM EQUIPMENT MAINTENANCE SUPERVISOR, Maricel Burger, [facility], Alicia Veliz, [facility], Olivia Stiles, FARM EQUIPMENT MAINTENANCE SUPERVISOR, Ying Singleton, FARM EQUIPMENT MAINTENANCE SUPERVISOR, Vikas Laird, FARM EQUIPMENT MAINTENANCE SUPERVISOR, Mira Pina,FARM EQUIPMENT MAINTENANCE SUPERVISOR, Briana Lim, FARM EQUIPMENT MAINTENANCE SUPERVISOR, Shirley Johnson, [facility], Jenny Denise, FARM EQUIPMENT MAINTENANCE SUPERVISOR, Jasmine Leong, FARM EQUIPMENT MAINTENANCE SUPERVISOR, Janice Perla, FARM EQUIPMENT MAINTENANCE SUPERVISOR [facility] IN-PATIENT SERVICE [facility] Progress Note 11/28/2023 9:54 AM Name: Jenny Ewing Acct: [id number] Room: [address] [place] [address] Day: 3 Admit Date: 11/25/2023 4:07 AM [...] of smoking, depression, back pain presents with maroonand black stools at home as well as a fall. Patient has history of GI bleed was clipped ad EGD, reports not available. Patient has hemoglobin of 6.6. 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 They were sent to her pharmacy [...] chloride, magnesium sulfate, sodium chloride flush, sodium chloride,ondansetron OR ondansetron, acetaminophen OR acetaminophen, fentanNYL, albuterol [...] Recent Labs 11/25/23 0958 11/25/23 1756 11/27/23200811/27/23211011/28/23 033 WBC 9.5 -- -- -- -- RBC [...] not displayed. Chemistry: Recent Labs 11/26/23 0307 11/27/234 11/28/23 0334 NA 140 134* 135* K 3.4* 3.4* 3.7 CL 112* 105 105 CO2 17* 22 21 GLUCOSE 82 83 88 BUN 9 7* 10 CREATININE 0.3* 0.4* 0.3* MG 1.5* 1.9 -- ANIONGAP 11 7* 9 LABGLOM >90 >90 >90 CALCIUM 6.3* 6.3* 6.4* No results for input(s): PROT , LABALBU , LABA1C , P2ZNQLS , E3FHEUZ , FT4 , TSH , AST , ALT , LDH , GGT , ALKPHOS , BILITOT , BILIDIR , AMMONIA , AMYLASE , LIPASE , LACTATE , CHOL , HDL , CHOLHDLRATIO , TRIG , VLDL , QDY92PZ , PHENYTOIN , PHENYF , URICACID , POCGLU in the last 72 hours. Invalid input(s): LABGGT , LDLCHOLESTEROL ABG:No results found for: POCPH , PHART , PH , POCPCO2 , DCJ5FUU , PCO2 , POCPO2 , PO2ART , PO2 , POCHCO3 , ZMP6NPG , HCO3 , NBEA , PBEA , BEART , BE , THGBART , THB , EID9OBW , UWQS9RQM , P3KNDEFW , O2SAT , FIO2 No results found [...] nightly Deanna Coyle MD 11/28/2023 9:54 AM * Carolyn Loza RCP - 11/28/2023 9:02 AM EDT BRONCHOSPASM/BRONCHOCONSTRICTION [x] IMPROVE AERATION/BREATH SOUNDS [x] ADMINISTER BRONCHODILATOR THERAPY APPROPRIATE [x] ASSESS BREATH SOUNDS [x] IMPLEMENT AEROSOL/MDI PROTOCOL [x] PATIENT EDUCATION NEEDED * Manasa Pollock MD - 11/28/2023 7:[address] [facility] Gastroenterology Progress Note Jenny Ewing is [...] the chart review patient initially presented to [facility] with a complaint of fall secondary to fatigue and feeling weak, during that time the EMS noticed that patient is having black-colored stools the workup done in the outlying facility ruled out any stroke and patient did not hither head when she fell as well. Labs in the [facility] are consistent with critically low hemoglobin about 4.8 g where she received 1 unit of transfusion later transferred to the [facility] for further evaluation. Patient is admitted under [...] paper charts the patient has been to [facility] 10 days back for GI bleed. They have done EGD and found duodenal ulcer and was clipped. 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 VITALS: BP 128/64 Pulse (!) [...] Review: Labs and Imaging: CBC: Recent Labs 05/01/24 0958 11/25/23 1756 11/27/23 0354 11/27/23 1028 [...] results for input(s): TIBC , FERRITIN , TZLAWJPO61 , FOLATE , OCCULTBLD in the last [...] me with any questions or concerns. [facility] Gastroenterology [facility] Malina Bryant MD [phone] 11/28/2023 7:45 AM Estimated time of mins [...] in 4 to 6 weeks after discharged * Kayleigh Irving RN - 11/27/2023 6:50 PM EDT Patient slowly tolerating bowel prep and states she cannot tolerate much more. Patient educated on importance of bowel prep & encouraged to continue drinking it * Deanna Coyle MD - 11/27/2023 9:39 AM EDT Images from the original note were not included. [facility] Office: [phone] Alvin Ma DO, Erick Burns DO, Varghese [...] Patiño CNP, Vito Calabrese CNP, Karime Keane DNP,Halima Mason, OSVALDO, Carmen Orozco, OSVALDO, Kathy Flores CNP, Farnaz Lucas, OSVALDO, Maricel Burger PA-C, Alicia Veliz PA-C, Olivia Stiles OSVALDO, Ying Singleton, FARM EQUIPMENT MAINTENANCE SUPERVISOR, Vikas Laird, FARM EQUIPMENT MAINTENANCE SUPERVISOR, Mira Pina,FARM EQUIPMENT MAINTENANCE SUPERVISOR, Briana Lim, FARM EQUIPMENT MAINTENANCE SUPERVISOR, Shirley Johnson, YOUS[facility], Jenny Denise, OSVALDO, Jasmine Leong, OSVALDO, Janice Perla, FARM EQUIPMENT MAINTENANCE SUPERVISOR [facility] IN-PATIENT SERVICE [facility] Progress Note 11/27/2023 9:39 AM Name: Jenny Ewing Acct: [id number] Room: [address] [place] [address] Day: 2 Admit Date: 11/25/2023 4:07 AM PCP: No primary care provider on file. Code Status: Full Code Subjective: C/C: weakness Interval History Status: improved. Patient seen and examined at bedside this morning. No acute events overnight. Patient Hgb continuesto trend down to 7.2 this morning from 8.6 yesterday. GI following, plan is for possible IR coil embolization of GDA. Patient denies any CP, SOB, FORBES, lightheadedness, fever or chills Brief History: 73 year old female with past medical history of smoking, depression, back pain presents with maroonand black stools at home as well as a fall. Patient has history of GI bleed was clipped ad EGD, reports not available. Patient has hemoglobin of 6.6. 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 They were sent to her pharmacy [...] COPD (chronic obstructive pulmonary disease) ([facility]), Depression, History of blood transfusion, and Thyroid [...] input(s): PROT , LABALBU , LABA1C , T0GETMP , E6OCHCU , FT4 , TSH , AST , ALT , LDH , GGT , ALKPHOS , BILITOT , BILIDIR , AMMONIA , AMYLASE , LIPASE , LACTATE , CHOL , HDL , CHOLHDLRATIO , TRIG , VLDL , QKL12XS , PHENYTOIN , PHENYF , URICACID , POCGLU in the last 72 hours. Invalid input(s): LABGGT , LDLCHOLESTEROL ABG:No results found for: POCPH , PHART , PH , POCPCO2 , VFA9RTT , PCO2 , POCPO2 , PO2ART , PO2 , POCHCO3 , VZF1NPS , HCO3 , NBEA , PBEA , BEART , BE , THGBART , THB , SWA8NIN , YTOR6XOM , X4QYEXDF , O2SAT , FIO2 No results found [...] nightly Deanna Coyle MD 11/27/2023 9:39 AM * Abhishek Bryant MD - 11/27/2023 8:27 AM EDT [facility] Gastroenterology Progress Note Jenny Ewing is [...] the chart review patient initially presented to [facility] with a complaint of fall secondary to fatigue and feeling weak, during that time the EMS noticed that patient is having black-colored stools the workup done in the outlying facility ruled out any stroke and patient did not hither head when she fell as well. Labs in the [facility] are consistent with critically low hemoglobin about 4.8 g where she received 1 unit of transfusion later transferred to the [facility] for further evaluation. Patient is admitted under [...] paper charts the patient has been to [facility] 10 days back for GI bleed. They have done EGD and found duodenal ulcer and was clipped. 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 VITALS: BP 116/69 Pulse 77 [...] 050 TIBC 205* BMP: Recent Labs 11/25/23 0502 [...] me with any questions or concerns. [facility] Gastroenterology [facility] Malian Bryant MD [phone] 11/27/2023 8:27 AM Estimated time of mins [...] with PPI IR consult Nicky Ugarte MD * Pearl Rocha, MS, RD, LD - 11/26/2023 11:32 AM EDT Comprehensive Nutrition Assessment Type and Reason for Visit: Positive Nutrition Screen (wt loss, poor po ste[place]) Nutrition Recommendations/Plan: Advance diet as medically [...] Unable to assess Fluid Accumulation: Mild Extremities Bushel Worker Strength: Not Performed Nutrition Assessment: 73 yo F adm GI bleed. PMH significant for GERD. Pt s/p EGD with duodenal ulcer repair (5/1). Pt endorses poor po intake and emesis x 3 mos ste[place]. Per pt, believes she had a 20 lb wt loss in that time. Per chart, no wt loss observed, pt with steady wt gain x 10 mos. Pt currently NPO, if diet advanced pt is agreeable to ONS, prefers Gonzalez Clear, agreeable to chocoalte, vanilla, strawberry Ensure. Perpt NKFA. LBM 5/2. +2 RLE, +1 LLE edema noted. Nutrition Related Findings: Labs/meds reviewed Wound Type: None Current Nutrition Intake & Therapies: Average Meal Intake: NPO Average Supplements Intake: NPO Diet NPO Exceptions are: Ice Chips, Sips of Water with Meds Anthropometric Measures: Height: 160 cm (5' 2.99 ) [place] Body Weight (IBW): 115 lbs (52 kg) [...] Discharge Planning: Too soon to determine Pearl Josefina, , RD, LD Contact: Floor Desk RD Weekend * Deanna Coyle MD - 11/26/2023 11:14 AM EDT Images from the original note were not included. [facility] Office: [phone] Alvin Ma DO, Erick Burns DO, Varghese [...] Montemayor CNP, Nereyda Patiño CNP, Vito Calabrese, FARM EQUIPMENT MAINTENANCE SUPERVISOR, Karime Keane, AAYUSH,Halima Mason, FARM EQUIPMENT MAINTENANCE SUPERVISOR, Carmen Orozco, FARM EQUIPMENT MAINTENANCE SUPERVISOR, Kathy Flores, FARM EQUIPMENT MAINTENANCE SUPERVISOR, Farnaz Lucas, FARM EQUIPMENT MAINTENANCE SUPERVISOR, Maricel Burger, PAGarrettC, Alicia Veliz PAGarrettC, Olivia Stiles, FARM EQUIPMENT MAINTENANCE SUPERVISOR, Ying Singleton, FARM EQUIPMENT MAINTENANCE SUPERVISOR, Vikas Laird, FARM EQUIPMENT MAINTENANCE SUPERVISOR, Mira Pina,FARM EQUIPMENT MAINTENANCE SUPERVISOR, Briana Lim, FARM EQUIPMENT MAINTENANCE SUPERVISOR, Shirley Johnson, IT HELP DESK ANALYST, Jenny Denise, FARM EQUIPMENT MAINTENANCE SUPERVISOR, Jasmine Leong CNP, Janice Perla CNP [facility] IN-PATIENT SERVICE [facility] Progress Note 11/26/2023 11:14 AM Name: Jenny Ewing Acct: [id number] Room: 0431/0431-01 IP Day: 1 Admit Date: 11/25/2023 4:07 AM [...] of smoking, depression, back pain presents with maroonand black stools at home as well as a fall. Patient has history of GI bleed was clipped ad EGD, reports not available. Patient has hemoglobin of 6.6. 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 They were sent to her pharmacy [...] input(s): PROT , LABALBU , LABA1C , R3JLBON , L6DOZXC , FT4 , TSH , AST , ALT , LDH , GGT , ALKPHOS , BILITOT , BILIDIR , AMMONIA , AMYLASE , LIPASE , LACTATE , CHOL , HDL , CHOLHDLRATIO , TRIG , VLDL , QES21UP , PHENYTOIN , PHENYF , URICACID , POCGLU in the last 72 hours. Invalid input(s): LABGGT , LDLCHOLESTEROL ABG:No results found for: POCPH , PHART , PH , POCPCO2 , IRO1FLI , PCO2 , POCPO2 , PO2ART , PO2 , POCHCO3 , QWE0ESU , HCO3 , NBEA , PBEA , BEART , BE , THGBART , THB , WHY0YCV , DECH8TXT , F6XYGPNS , O2SAT , FIO2 No results found [...] Midodrine Deanna Coyle MD 11/26/2023 11:14 AM * Abhishek Bryant MD - 11/26/2023 7:30 AM EDT [facility] Gastroenterology Progress Note Jenny Ewing is a [...] the chart review patient initially presented to [facility] with a complaint of fall secondary to fatigue and feeling weak, during that time the EMS noticed that patient is having black-colored stools the workup done in the outlying facility ruled out any stroke and patient did not hither head when she fell as well. Labs in the [facility] are consistent with critically low hemoglobin about 4.8 g where she received 1 unit of transfusion later transferred to the [facility] for further evaluation. Patient is admitted under [...] paper charts the patient has been to [facility] 10 days back for GI bleed. They have done EGD and found duodenal ulcer and was clipped. 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 VITALS: BP 108/61 Pulse 78 [...] me with any questions or concerns. [facility] Gastroenterology [facility] Malina Bryant MD [phone] 11/26/2023 8:00 AM Estimated time of mins [...] g/dl Continue PPI gtt Nicky Ugarte MD * Amira King MD - 11/26/2023 4:34 AM EDT Notified by nsg patient still borderline hypotensive with sbp 90s, hgb drifting down to 8.1 s/p prior prbcs overnight. Labs and chart reviewed. S/p n/c for intermittent desat's Will start midodrine. chest xray w/ chf changes/ pleural effusions. Pending lasix. Will reduce ivf's to avoid further fluid overload. * Christina Parmar RN - 11/25/2023 7:05 AM EDT Pts hgb 6.6, Potassium 3.6. Notified provider.see new orders. [facility] Discharge instructions* Discharge Instr - CALLI* Corinna Schmidt RN - 12/02/2023 9:46 AM [...] Discharging Hospital Unit/Room#: Discharging Unit Phone Number: [phone] Emergency Contact: Extended Emergency Contact Information Primary Emergency Contact: Pearl Julien Relation: Child Secondary Emergency Contact: Radha Ventura Mobile Relation: Friend Window Shade Ring Sewer needed? No Past Surgical History: Past Surgical History: Procedure Laterality Date SECTION x2 CHOLECYSTECTOMY COLONOSCOPY ENDOSCOPY, COLON, DIAGNOSTIC ESOPHAGOGASTRODUODENOSCOPY N/A 11/25/2023 ESOPHAGOGASTRODUODENOSCOPY 12/01/2023 EYE SURGERY FRACTURE SURGERY HYSTERECTOMY (CERVIX STATUS UNKNOWN) IR EMBOLIZATION HEMORRHAGE 11/27/2023 IR EMBOLIZATION HEMORRHAGE 11/27/2023 Jorge Russo MD [facility] SPECIAL PROCEDURES SKIN BIOPSY UPPER GASTROINTESTINAL ENDOSCOPY N/A 11/25/2023 *ADD ON* ESOPHAGOGASTRODUODENOSCOPY control hemorrhage performed by Nicky Ugarte MD at [facility] OR Immunization History: Immunization History Administered [...] Assisted Dressing Assisted Toileting Assisted Feeding Assisted Automation Driver Assisted Med Delivery whole Wound Care Documentation [...] NOT a DME order): walker Other Treatments: residential, pt would like to speak with her clinical social worker from [facility] office was closed on attempt 12/02 Patient's personal belongings (please select all that are sent with patient): Frantz RN SIGNATURE: CASE MANAGEMENT/SOCIAL WORK SECTION Inpatient Status Date: Readmission Risk Assessment Score: Readmission Risk Risk of Unplanned Readmission: 11 Discharging to Facility/ Agency Name: [facility] Address: Phone: Fax: Instruments Sales Representative/Medical Lab Specialist signature: PHYSICIAN SECTION Prognosis: Good Condition at Discharge: Stable Rehab Potential (if transferring to Rehab): Good Recommended Labs or Other Treatments After Discharge: Continue PT OT. Monitor hemoglobin follow-up with PCP and GI. CBC 03/05/2024 Physician Certification: I certify the above information and transfer of Jenny Ewing is necessary for the continuing treatment of the diagnosis listed and that she requires residential facility for less 30 days. Update Admission H&P: No change in H&P PHYSICIAN SIGNATURE: documented in this encounterB[facility]24 NotePROCEDURE: IR EMBOLIZATION VASCULAR ANY HEMORRHAGE 11/27/2023 HISTORY: ORDERING SYSTEM PROVIDED HISTORY: Embolization of GDA/GI bleed TECHNOLOGIST PROVIDED HISTORY: Embolization of GDA/GI bleed CONTRAST: Isovue 370-110 mL SEDATION: Fentanyl 50 mcg IV for discomfort. Medications were provided and recorded by Radiology nurses. FLUOROSCOPY DOSE AND TYPE: Fluoroscopy time-15.7 minutes. Radiation Exposure Index: DAP cGy*m2, 50216 DESCRIPTION OF PROCEDURE: Arteries interrogated: Celiac, GDA, [...] for a 0.035 inch wire and 5 Panamanian introducer sheath. Randal 5 Panamanian x 65 cm catheter was introduced and the celiac artery catheterize; hand celiac angiography was performed. A 0.035 inch glidewire was manipulated into the distal hepatic arteries, catheter exchanged for a 5 Panamanian Cobra glide catheter which was manipulated into the origin GDA. Digital angiography was then performed. [place] delivery microcatheter 45 degree tip was then [...] removed. Subsequent hand injection via the 5 Panamanian catheter the proper hepatic was performed. The guide catheter was removed, and the Randal catheter reinserted. Celiac and SMA digital angiography were then performed. The Randal catheter was removed. Hand digital angiography right iliofemoral vessels was performed at the groin. The right groin was re-prepped, and a 5 Panamanian Vascade closure device was deployed right TOBACCO SPRAYER. The patient tolerated procedure well and there [...] or site of bleeding identified. Normal right TOBACCO SPRAYER entry site pre closure device placement. 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 Interpreted by: Jorge Russo MD Signed by: Jorge Russo MD 11/28/23 [facility] NotePROCEDURE: IR EMBOLIZATION VASCULAR ANY HEMORRHAGE 11/27/2023 HISTORY: ORDERING SYSTEM PROVIDED HISTORY: Embolization of GDA/GI bleed TECHNOLOGIST PROVIDED HISTORY: Embolization of GDA/GI bleed CONTRAST: Isovue 370-110 mL SEDATION: Fentanyl 50 mcg IV for discomfort. Medications were provided and recorded by Radiology nurses. FLUOROSCOPY DOSE AND TYPE: Fluoroscopy time-15.7 minutes. Radiation Exposure Index: DAP cGy*m2, 85397 DESCRIPTION OF PROCEDURE: Arteries interrogated: Celiac, GDA, [...] for a 0.035 inch wire and 5 Panamanian introducer sheath. Randal 5 Panamanian x 65 cm catheter was introduced and the celiac artery catheterize; hand celiac angiography was performed. A 0.035 inch glidewire was manipulated into the distal hepatic arteries, catheter exchanged for a 5 [place]amanian Cobra glide catheter which was manipulated into the origin GDA. Digital angiography was then performed. [employer] delivery microcatheter 45 degree tip was then [...] removed. Subsequent hand injection via the 5 Panamanian catheter the proper hepatic was performed. The guide catheter was removed, and the Randal catheter reinserted. Celiac and SMA digital angiography were then performed. The Randal catheter was removed. Hand digital angiography right iliofemoral vessels was performed at the groin. The right groin was re-prepped, and a 5 Panamanian Vascade closure device was deployed right TOBACCO SPRAYER. The patient tolerated procedure well and there [...] or site of bleeding identified. Normal right TOBACCO SPRAYER entry site pre closure device placement. [facility] RIS [id number] Progress note Author Jaspal Whalen [facility] November 20, 2023 11:40amNote Date/TimeApril 2023 11:40[place] [address] Hospitalist Progress Note Signed Patient: Jenny Ewing MR#: [id number] : 1950 Acct:[id number] Age/Sex: 73 / F Adm Date: 4 Loc: Room: 6K7564-9 Type: ADM IN Attending Dr: Jaspal Whalen [...] Jaspal Whalen MD> 11/20/23 1140 [facility] Work Phone: 1(665) 717-476404-25-2024 Progress note Author Frantz Nieves [facility] November 19, 2023 1:51pmNote Date/TimeApril 2023 11:13[place] [address] Hospitalist Progress Note Signed Patient: Jenny Ewing MR#: [id number] : 1950 Acct:[id number] Age/Sex: 73 / F Adm Date: 4 Loc: Room: [address] [place] [address] Type: ADM IN Attending Dr: Frantz Nieves DO Copies to: ~ Date of Service: 11/19/2023 Subjective Subjective Narrative: Patient was evaluated at bedside. Reports poor sleep overnight due to frequent wakening and historyof sleep difficulty. Overall feels more stable on her feet, reports no melena, abdominal pain has improved. EGD was positive for 4 cmnonbleeding gastric ulcer. H&H was monitored overnight, with amild decrease from 7.7-7.1 this morning. No other [...] to 7.1 ? 2 units PRBC at [place], prior to transfer here, received another 2 [...] was resting comfortably in the ICU this mor vasile, her hemoglobin was trending down throughout the [...] DO DENISE Mckeon> 11/19/23 1113 [facility] Work Phone: 1(657) 540-287304-25-2024 Progress note Author Seun Freitas [facility] November 19, 2023 9:54amNote Date/TimeApril 2023 9:54[place] [address] Gastroenterology PN Signed Patient: Jenny Ewing MR#: [id number] : 1950 Acct:[id number] Age/Sex: 73 / F Adm Date: 4 Loc: Room: 3H6117-8 Type: ADM IN Attending Dr: Frantz Nieves [...] continue to monitor CBC. Ulceris not amenable forfurther endoscopic treatment. If patient shows signs of recurrent bleeding then she will need to betransferred to a center with interventional radiology for possible embolization. -Continue Protonix 40 mg twice daily -Avoid NSAIDs -Will arrange for repeat EGD in 4 weeks to assess ulcer healing Documented By: Seun Freitas MD 11/19/23 0950 Signed By: <Electronically signed by Seun Freitas MD> 11/19/23 0954 [facility] Work Phone: 1(699) 676-299404-24-2024 Procedure [facility]04-24-2024 Progress note Author Frantz Nieves [facility] November 18, 2023 10:04amNote Date/TimeApril 2023 10:04[place] [address] Hospitalist Progress Note Signed Patient: Jenny Ewing MR#: [id number] : 1950 Acct:[id number] Age/Sex: 73 / F Adm Date: 4 Loc: Room: [address] [place] [address] Type: ADM IN Attending Dr: Frantz Nieves [...] 25 Mg Tablet PO 11/17/24 08:59 QAM [facility] Tramadol HCl 100 mg 11/17/23 22:00 11/17/23 22:25 Tramadol 50 Mg Tablet PO 05/15/24 21:59 Not Given QID [facility] A&P - Hospitalist Assessment/Plan (1) Acute anemia: [...] signed by Frantz Nieves DO> 11/18/23 1004 [facility] Work Phone: 1(281) 392-132504-24-2024 Consult note Author Seun Freitas [facility] November 18, 2023 9:03amNote Date/TimeApril 2023 4:[place] [address] Gastroenterology Consult Note Signed Patient: Jenny Ewing MR#: [id number] : 1950 Acct:[id number] Age/Sex: 73 / F Adm Date: 4 Loc: Room: [address] [place] [address] Type: ADM IN Attending Dr: Frantz Nieves [...] noted below or in HPI [facility] Medical History (Updated 11/18/23 @ 09:03 [...] mL nebulization soln 3 ml inhalation TID 11/17/23[History Confirmed 11/17/23] levothyroxine 150 mcg tablet 150 [...] use + Cigarette smoking Hb: 4.8 at [place] Patient is hemodynamically stable -Trend CBC and transfuse as needed, ensure two large bore IVs at least. -Protonix 40 mg twice daily -Avoid NSAIDs -Goal Hgb >7.0 -Plan for EGD today. Please keep the patient n.p.o. after midnight Documented By: Seun Freitas MD 11/17/23 1612 Signed By: <Electronically signed by Seun Freitas MD> 11/18/23 0903 [facility] Work Phone: 1(794) 587-702604-23-2024 History and physical note Author Frantz Nieves [facility] November 17, 2023 6:33pmNote Date/TimeApril 2023 3:59[place] [address] Hospitalist H&P Signed Patient: Jenny Ewing MR#: [id number] : 1950 Acct:[id number] Age/Sex: 73 / F Adm Date: 4 Loc: Room: [address] [place] [address] Type: ADM IN Attending Dr: Frantz Nieves DO Copies to: Dale Mckeon DO, RES MD Frantz Wyman, ~ HPI DATE OF EXAMINATION: 11/17/23 CHIEF COMPLAINT: Anemia HISTORY OF PRESENT ILLNESS: 73-year-old female transferred from [facility] for severe anemia. 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 Thismorning the patient had acute episode of weakness in her lower extremities afterwhich she fell and hit the back of her neck and head without LOC. She was brought to the [place] ED by EMS. CT head, brain, and [...] mg Protonix. She was then transferred to [facility] for further workup of anemia and [...] sounds bilateral lower lobes with Rales, positiveexpiratory wheezingon the right, no increased work of breathing [...] speech, appropriate mood and affect [facility] Medical History (Updated 11/17/23 @ 16:10 [...] mL nebulization soln 3 ml inhalation TID 11/17/23[History Confirmed 11/17/23] levothyroxine 150 mcg tablet 150 [...] (6) Weakness: Plan 73-year-old female transferred from [facility] for severe anemia, weakness, and GI bleed. Past medical history significant for chronic tobacco abuse, COPD, hypothyroidism, and chronic low backpain treated with NSAIDs. Reports increasing weakness and shortness of breath with difficulty performing ADLs over the past few weeks, melena for 3 weeks, worsening constipation, unintentional 30 pound weight loss over 6 months, and nightly sweats. Prior family history significant for first-degree relatives with stomach and colon cancer. Last [...] GI bleed. Received 2 units PRBC at [place], 500 mL NS, ?Recheck H&H ?Continue Protonix [...] take it with food, she does endorse b lack tarry stools for the past couple of [...] setting as: INPATIENT because of an expectation ofan over 2 midnight stay. Estimated length of stay (# of days): 3 Documented By: Frantz Nieves DO 11/17/23 1093 Signed By: <Electronically signed by Frantz Nieves DO> 11/17/23 1833 <Electronically signed by DO RES Dale Mckeon> 11/17/23 1623 [facility] Work Phone: 1(469) 876-452001-30-2024 History of Present illness Narrative* Catracho Sheriff [...] 301 mOsmol/kg Final Comment: Performed at: - [facility] [id number] [employer]: Arleen Wong MD, Phone: [phone] OSMOLALITY, URINE 08/11/2023 552 . mOsmol/kg Final Comment: 24 hr : 300 - 900 Random: 50 - 1400 After 12hr fluid restriction: >850 Performed at: - [facility] [address] [id number] [employer]: Arleen Wong MD, Phone: [phone] Clinisync Result Encounter on 08/04/2023 Component Date [...] 0.55 - 1.02 mg/dL Final TBH EGFR-AF [place] 08/04/2023 >60 >=60 Final TBH EGFR-NON AF [place] 08/04/2023 >60 >=60 Final BUN CREATININE RATIO [...] this encounterNOMS HealthcareDischarge summary Author Jaspal Whalen [facility] November 21, 2023 1:44pmNote Date/TimeApril 2023 1:44[place] [address] Discharge Summary Signed Patient: Jenny Ewing MR#: [id number] : 1950 Acct:[id number] Age/Sex: 73 / F Adm Date: 4 Loc: Room: [address] [place] [address]: Jaspal Whalen MD Copies to: [...] female, who was transferred to us from [facility], where she presented with [...] Jaspal Whalen MD> 11/21/23 1344 [facility] Work Phone: Evaluation note* Diagnosis Chronic pain syndrome- Primary Chronic respiratory failure with hypoxia (CMS/HCC) Dependence on supplemental oxygen Stasis dermatitis of both legs Arthritis of both knees documented in this encounter [facility] HealthcareEvaluation note* Diagnosis Onset Date Resolution Status Acute anemia acuteDuodenal ulceracuteExcessive use of nonsteroidal anti-inflammatory drugs (NSAIDs)acuteGI bleedacuteMacrocytosisacuteTobacco abuseacuteWeaknessacuteWeight loss, unintentionalacute [facility] Work Phone: Evaluation note* Diagnosis GI [...] disorder PAF (paroxysmal atrial fibrillation) ([facility]) Atrial fibrillation documented in this encounter [facility]* Diagnosis Duodenal ulcer Duodenal ulcer, unspecified as acute or chronic, without hemorrhage, perforation, or obstruction documented in this [facility] Diagnosis Venous stasis ulcer of other part of lower leg limited to breakdown of skin without varicose veins,unspecified laterality (CMS/HCC)- Primary Cellulitis of lower extremity, unspecified laterality Venous stasis dermatitis of both lower extremities documented in this encounter [facility]* Diagnosis Stasis dermatitis of both legs- Primary Non-pressure chronic ulcer of right lower leg, limited to breakdown of skin (CMS/HCC) Postsurgical hypothyroidism ([facility]/HCC) Postsurgical hypothyroidism Acute anemia Hypokalemia Hypopotassemia Chronic [...] encounter [facility]* Diagnosis Acquired hypothyroidism ([facility]/HCC) Unspecified hypothyroidism documented in this encounter [facility] [...] and myositis documented in this encounter [facility]* Diagnosis Bilateral lower leg cellulitis- Primary Stasis dermatitis of both legs Venous (peripheral) insufficiency Unspecified venous (peripheral) insufficiency Polypharmacy Issue of repeat prescriptions documented in this encounter [facility]* Diagnosis Postsurgical hypothyroidism- Primary Postsurgical hypothyroidism ESS (euthyroid sick syndrome) Euthyroid sick syndrome Chronic fatigue Other malaise and fatigue Chronic pain syndrome Spondylosis of lumbar region without myelopathy or radiculopathy Osteopenia of spine Failed back syndrome of lumbar spine Former smoker Personal history of tobacco use, presenting hazards to health Overweight Generalized anxiety disorder Generalized anxiety disorder Sleep arousal disorder Stasis dermatitis of both legs documented [facility]* Diagnosis Stasis dermatitis of both legs Bilateral lower leg cellulitis Venous (peripheral) insufficiency Unspecified venous (peripheral) insufficiency documented [facility]* Diagnosis Stasis dermatitis of both legs Bilateral lower leg cellulitis documented in this encounter [facility]* Diagnosis Encounter for Medicare annual wellness exam- Primary Advance directive discussed with patient Encounter for screening for other disorder Screening for alcohol problem Screening for alcoholism Polypharmacy Issue of repeat prescriptions Chronic respiratory failure with hypoxia (HCC) Mucopurulent chronic bronchitis (HCC) Mucopurulent chronic bronchitis Dependence on supplemental oxygen documented in this encounter [facility] Summary Purpose Family History Relationship Condition Age at Onset Recorded Date/T nelly Not Specified Malignant neoplasm of stomach Unknown brotherMalignant neoplasm of colonUnknown Advance Directives Advance Directive Response Recorded Date/ Time Advance Directives No November 16, 2 024 5:27am Code StatusDate ActivatedDate InactivatedCommentsFull Code11/25/2023 4:23 AMCode StatusDate ActivatedDate InactivatedCommentsFull Code11/25/2023 12:02 AM11/25/2023 4:07 AMNameRelationshipHealthcare Agent RelationshipCommunicationPearl Wily ChildPrimary Decision Maker* Radha Namecondary Decision Maker* TypeDate RecordedPatient RepresentativeExplanationACP-Advance Directive12/04/2023 1:41 PMCode StatusDate ActivatedDate InactivatedCommentsFull Code11/25/2023 4:23 AM12/03/2023 8:11 PMNameRelationshipHealthcare Agent RelationshipCommunication Pearl WilyChildPrimary Decision Maker* Radha Namecondary Decision Maker* TypeDate RecordedPatient RepresentativeExplanationACP-Advance Directive12/04/2023 1:41 PMDate ActivatedDate InactivatedComments/07/2023 4:23 AM12/03/2023 8:11 PM Date ActivatedDate InactivatedComments5/07/2023 12:02 AM11/25/2023 4:07 AMName RelationshipHealthcare Agent RelationshipCommunicationJeyue LemaPrimary Decision Maker* Radha Namecondary Decision Maker* NameRelationshipHealthcare Agent RelationshipCommunicationPearl Lema Primary Decision Maker* Radha Namecondary Decision Maker* TypeDate RecordedPatient RepresentativeExplanationAdvance Directives and Living Will05/25/2025 10:11 AMLiving Will DeclarationPower of Ikirhoyp79/30/2025 10:11 AMHealthcare Power of Bread Distributor Chief Complaint and Reason for Visit Chief Complaint GI Bleed and anemia GI Bleed and anemia GI Bleed and anemiaReason for VisitAcute anemia Duodenal ulcer Excessive use of nonsteroidal anti-inflammatory drugs (NSAIDs) GI bleed Macrocytosis Tobacco abuse Weakness Weight loss, unintentional Additional Source Comments INFORMATION SOURCE (unrecogn ized section and content) DATE CREATED AUTHOR 08/29/2022 [facility] DATE CREATED AUTHOR AUTHOR'S ORGANIZ ATION 11/24/2023 [facility] DATE CREATED AUTHOR AUTHOR'S ORGANIZ ATION 12/11/2023 [facility] DATE CREATED AUTHOR AUTHOR'S ORGANIZ ATION 08/04/2024 [facility] DATE CREATED AUTHOR AUTHOR'S ORGANIZ ATION 05/26/2025 [facility] EPIC Reason for Visit (unrecogniz ed section and content) ReasonCommentsRecurrent Skin InfectionsSpecialtyDiagnoses / ProceduresReferred By ContactReferred To Contact Diagnoses GI bleed GI bleed [address] [place] [address] [facility] [address] [place] [address] Referral IDStatusReasonStart DateExpiration DateVisits RequestedVisits [id number] / ProceduresReferred By ContactReferred To Contact Diagnoses Duodenal ulcer Duodenal ulcer [K26.9] Procedures LA EGD TRANSORAL BIOPSY SINGLE/MULTIPLE ESOPHAGOGASTRODUODENOSCOPY BIOPSY Nicky Ugarte MD [address] [place] [address] [facility] [address] [place] [address] Referral IDStatusReasonStart DateExpiration DateVisits RequestedVisits [id number] CheckReasonCommentswound checkReason CommentsWound InfectionReasonCommentsMed RefillReasonCommentsAnxietyPainReason CommentsFollow-upReasonCommentsEdemaReasonCommentsHypothyroidismPainReason CommentsAnnual Exam Care Teams (unrecognized sec tion and content) Team MemberRelationshipSpecialtyStart DateEnd Date Catracho Sheriff MD [address] [place] [address] PCP - [facility]07/27/22 Catracho Sheriff MD [address] [place] [phone] PCP - [facility]01/05/23 Team Status: Active Member Role Status Dates Catracho Sheriff MD Primary Care Provider Active Team Status: Inactive Member Role Status Dates Catracho Sheriff MD Primary Care Provider Active Start: November 17, 2023 End: November 21, 2023Chari Giron ProviderActiveStart: November 17, 2023 End: November 20ndMimi Ramirez ProviderActiveStart: November 17, 2023 End: November 21, 2023Seun Freitas MDOther ProviderActiveStart: November 17, 2023 End: November 21, 2023 Team Status: Active Member Role Status Dates Catracho Sheriff MD Primary Care Provider Active Start: November 17, 2023 Chari Giron Provider, Attending Provider, Other ProviderActive Start: November 17, 2023 Seun Freitas MDOther ProviderActiveStart: November 17, 2023 Team Status: Active Member Role Status Dates Catracho Sheriff MD Primary Care Provider Active Start: November 17, 2023 Frantz Nieves DOAdmit Provider, Other ProviderActiveStart: November 17, 2023 Seun Freitas MDAttending Provider, Other ProviderActiveStart: November 17, 2023 Team MemberRelationshipSpecialtyStart DateEnd Date Catracho Sheriff MD [address] [facility] [place] [address] (Fax) PCP - General01/29/24Team MemberRelationshipSpecialtyStart DateEnd Date Catracho Sheriff MD [address] [facility] [place] [address] (Fax) PCP - General01/29/24Team MemberRelationshipSpecialtyStart DateEnd Date Catracho Sheriff MD [address] [facility] [place], [facility]11 (Fax) PCP - [employer] Catracho Sheriff MD [address] [place] [address] [facility] - [facility]01/05/23 Payal Gaona DO [address] [place] [id number] Referring PhysicianNeurology2 Aimee Truong, IGOR Registered NurseFamily Medicine12/23/23Team MemberRelationshipSpecialtyStart Date End Date Catracho Sheriff MD [address] [place] [address] (Fax) PCP - [employer] Catracho Sheriff MD [address] [place] [address] [facility] - [facility]01/05/23 Payal Gaona DO [address] [place] [id number] Referring PhysicianNeurology2 Aimee Truong, RN Registered NurseArchbold - [facility]12/23/23Team MemberRelationshipSpecialtyStart Date End Date Catracho Sheriff MD [address] [place] [phone] (Fax) PCP - [employer] Catracho Sheriff MD [address] [place] [address] PCP - [facility]01/05/23 Payal Gaona DO [address] [place] [id number] Referring PhysicianNeurology2 Aimee Truong RN Registered NurseArchbold - [facility]12/23/23Team MemberRelationshipSpecialtyStart Date End Date Catracho Sheriff MD [address] [facility] [place] [address] (Fax) PCP - [employer]1 Catracho Sheriff MD [address] [place] [address] PCP - [facility] Medicine01/05/23 Payal Gaona DO [address] [place] [address] Referring PhysicianNeurology2 Aimee Truong, RN Registered NurseArchbold - [facility] Hospital12/23/23Team MemberRelationshipSpecialtyStart Date End Date Catracho Sheriff MD [address] [place] [address] (Fax) PCP - [place] [address] Catracho Sheriff MD [address] [address] PCP - [facility]01/05/23 Payal Gaona DO [address] [place] [address] Referring PhysicianNeurology2 Aimee Truong, IGOR Registered NurseArchbold - [facility]12/23/23Team MemberRelationshipSpecialtyStart Date End Date Catracho Sheriff MD [address] [facility] [place] [address] (Fax) PCP - Human Catracho Sheriff MD [address] [place] [address] PCP - [facility]01/05/23 Payal Gaona DO [address] [place] [address] Referring PhysicianNeurology2 Aimee Truong, IGOR Registered NurseFamily Medicine12/23/23Team MemberRelationshipSpecialtyStart Date End Date Catracho Sheriff MD [address] [place] [address] (Fax) PCP - [employer] Catracho Sheriff MD [address] [place] [address] (Fax) PCP - [facility] Medicine01/05/23 Payal Gaona DO [address] [place] [address] Referring PhysicianNeurology2 Aimee Truong RN Registered NurseArchbold - [facility]12/23/23Team MemberRelationshipSpecialtyStart Date End Date Catracho Sheriff MD [address] [place] [address] (Fax) PCP - [place] [address] Catracho Sheriff MD [address] [place] [address] (Fax) PCP - [facility] Medicine01/05/23 Payal Gaona DO [address] [place] [address] Referring PhysicianNeurology2 Aimee Truong RN Registered NurseFanvly Medicine12/23/23Team MemberRelationshipSpecialtyStart Date End Date Catracho Sheriff MD [address] [place] [address] (Fax) PCP - [employer] Catracho Sheriff MD [address] [place] [address] (Fax) PCP - Generalmily Medicine01/05/23 Payal Gaona DO [address] [place] [address] Referring PhysicianNeurology2 Aimee Truong, IGOR Registered NurseArch[facility] - [facility]12/23/23Team MemberRelationshipSpecialtyStart Date End Date Catracho Sheriff MD [address] [place] [address] (Fax) PCP - [employer]1 Catracho Sheriff MD [address] [place] [address] (Fax) PCP - [facility] Medicine01/05/23 Payal Gaona DO [address] [place] [address] Referring PhysicianNeurology2 Aimee Truong RN Registered NurseEncompass Rehabilitation [facility] Medicine12/23/23Team MemberRelationshipSpecialtyStart Date End Date Catracho Sheriff MD [address] [place] [address] (Fax) PCP - [employer] Catracho Sheriff MD [address] [place] [address] PCP - GeneralFamily Medicine01/05/23 Payal Gaona DO [address] [place] [address] Referring PhysicianNeurology2 Aimee Truong, IGOR Registered NurseArch[facility]12/23/23Team MemberRelationshipSpecialtyStart Date End Date Catracho Sheriff MD [address] [facility] [place] [address] (Fax) PCP - [employer]1 Catracho Sheriff MD [address] [place] [address] PCP - [facility]01/05/23 Payal Gaona DO [address] [place] [address] Referring PhysicianNeurology2 Aimee Truong, IGOR Registered NurseArch[facility]12/23/23Team MemberRelationshipSpecialtyStart Date End Date Catracho Sheriff MD [address] [place] [address] (Fax) PCP - [employer]1 Catracho Sheriff MD [address] [place] [address] (Fax) PCP - Generalmily Medicine01/05/23 Payal Gaona DO [address] [place] [address] Referring PhysicianNeurology2 Aimee Truong, RN Registered Nursemily Medicine12/23/23Team MemberRelationshipSpecialtyStart Date End Date Catracho Sheriff MD (Fax) PCP - General01/29/24Team MemberRelationshipSpecialtyStart DateEnd Date Catracho Sheriff MD [address] [place] [address] (Fax) PCP - [employer]1 Catracho Sheriff MD [address] [place] [address] (Fax) PCP - GeneralAdair County Health Systemly Medicine01/05/23 Payal Gaona DO [address] [place] [id number] Referring PhysicianNeurology2 Aimee Truong, IGOR Registered NurseEncompass Rehabilitation [facility] Medicine12/23/23Team MemberRelationshipSpecialtyStart Date End Date Catracho Sheriff MD [address] [facility] [place] [address] (Fax) PCP - General01/29/24Team MemberRelationshipSpecialtyStart DateEnd Date Catracho Sheriff MD [address] [place] [address] (Fax) PCP - [employer]1 Catracho Sheriff MD [address] [place] [address] (Fax) PCP - GeneralFamily Medicine01/05/23 Payal Gaona DO [address] [place] [address] Referring PhysicianNeurology2 Aimee Truong RN Registered NurseAdair County Health Systemly Medicine12/23/23Team MemberRelationshipSpecialtyStart Date End Date Catracho Sheriff MD [address] [place] [address] (Fax) PCP - [employer]1 Catracho Sheriff MD [address] [place] [address] (Fax) PCP - GeneralFamily Medicine01/05/23 Payal Gaona DO [address] [place] [address] Referring PhysicianNeurology2 Aimee Truong RN Registered NurseArch[facility] - [facility]12/23/23Team MemberRelationshipSpecialtyStart Date End Date Catracho Sheriff MD [address] [place] [address] (Fax) PCP - [employer]1 Catracho Sheriff MD [address] [place] [address] (Fax) PCP - Generalmily Medicine01/09/25 Payal Gaona DO [address] [place] [address] Referring PhysicianNeurology2 Aimee Truong RN [address] [place] [address] Registered Nursemily Medicine12/23/23Team MemberRelationshipSpecialtyStart Date End Date Catracho Sheriff MD [address] [place] [address] (Fax) PCP - [employer]1 Catracho Sheriff MD [address] [place] [address] (Fax) PCP - GeneralFamily Medicine01/09/25 Payal Gaona DO [address] [place] [address] Referring PhysicianNeurology2 Aimee Truong RN [address] [place] [address] Registered NurseEncompass [facility] Medicine12/23/23Team MemberRelationshipSpecialtyStart Date End Date Catracho Sheriff MD [address] [place] [address] (Fax) PCP - Human Catracho Sheriff MD [address] [place] [address] (Fax) PCP - GeneralFamily Medicine01/09/25 Payal Gaona DO [address] [place] [address] Referring PhysicianNeurology2 Aimee Truong RN [address] [place] [address] Registered NurseEncompass Rehabilitation [facility] Medicine12/23/23Team MemberRelationshipSpecialtyStart Date End Date Catracho Sheriff MD [address] [place] [address] (Fax) PCP - [place] [address] Catracho Sheriff MD [address] [place] [address] (Fax) PCP - [facility] Medicine01/09/25 Payal Gaona DO [address] [place] [address] Referring PhysicianNeurology2 Aimee Truong RN [address] [place] [address] Registered NurseArchbold - [facility]ady [facility] Hospital12/23/23Team MemberRelationshipSpecialtyStart Date End Date Catracho Sheriff MD [address] [place] [address] (Fax) PCP - [place] [address] Catracho Sheriff MD [address] [place] [address] (Fax) PCP - [facility] Medicine01/09/25 Payal Gaona DO [address] [place] [address] Referring PhysicianNeurology2 Aimee Truong RN [address] [place] [address] Registered NurseEn[facility] Medicine12/23/23Team MemberRelationshipSpecialtyStart Date End Date Catracho Sheriff MD [address] [place] [address] (Fax) PCP - [employer]1 Catracho Sheriff MD [address] [place] [address] (Fax) PCP - GeneralFamily Medicine01/09/25 Payal Gaona DO [address] [place] [address] Referring PhysicianNeurology2 Aimee Truong RN [address] [place] [address] Registered NurseFamily Medicine12/23/23 Savanah Ritter, [facility] [address] [place] [address] Social WorkerEn[facility] Medicine04/04/25Team MemberRelationshipSpecialtyStart DateEnd Date Catracho Sheriff MD [address] [place] [address] (Fax) PCP - Human Catracho Sheriff MD [address] [place] [address] (Fax) PCP - GeneralFamily Medicine01/09/25 Payal Gaona DO [address] [place] [address] Referring PhysicianNeurolog09/03/23 Aimee Truong RN [address] [place] [address] Registered NurseFamily Medicine12/23/23 Savanah Ritter, [employer] [address] [place] [address] Social WorkerFamily Medicine04/04/25Team MemberRelationshipSpecialtyStart DateEnd Date Catracho Sheriff MD [address] [place] [address] (Fax) PCP - [employer]1 Catracho Sheriff MD [address] [place] [address] (Fax) PCP - GeneralFamily Medicine01/09/25 Payal Gaona DO [address] [place] [address] Referring PhysicianNeurology2 Aimee Truong RN [address] [place] [address] Registered NurseAdair County Health Systemly Medicine12/23/23Team MemberRelationshipSpecialtyStart Date End Date Catracho Sheriff MD [address] [place] [address] (Fax) PCP - [employer]1 Catracho Sheriff MD [address] [place] [address] (Fax) PCP - GeneralFamily Medicine01/09/25 Payal Gaona DO [address] [place] [address] Referring PhysicianNeurology2 Aimee Truong RN [address] [place] [address] Registered NurseFamily Medicine12/23/23 Savanah Ritter, MACHINE [employer]OL OPERATOR [address] [place] [address] Social WorkerEn[facility] Medicine04/04/25Team MemberRelationshipSpecialtyStart DateEnd Date Catracho Sheriff MD [address] [place] [address] (Fax) PCP - [employer]1 Catracho Sheriff MD [address] [place] [address] (Fax) PCP - Generalmily Medicine01/09/25 Payal Gaona DO [address] [place] [address] Referring PhysicianNeurology2 Aimee Truong, RN [address] [place] [address] Registered NurseFamily Medicine12/23/23 Savanah Ritter, MACHINE TOOL OPERATOR [address] [place] [address] Social WorkerArch[facility]04/04/25Team MemberRelationshipSpecialtyStart DateEnd Date Catracho Sheriff MD [address] [place] [address] (Fax) PCP - [employer]1 Catracho Sheriff MD [address] [place] [address] (Fax) PCP - GeneralFamily Medicine01/09/25 Payal Gaona DO [address] [place] [address] Referring PhysicianNeurology2 Aimee Truong RN [address] [place] [address] Registered NurseFamily Medicine12/23/23 Savanah Ritter, MACHINE TOOL OPERATOR [address] [place] [facility] [address] Social WorkerFamily Medicine04/04/25Team MemberRelationshipSpecialtyStart DateEnd Date Catracho Sheriff MD [address] [place] [address] (Fax) PCP - [employer]1 Catracho Sheriff MD [address] [place] [address] (Fax) PCP - GeneralFamily Medicine/ Catracho Sheriff MD [address] [place] [address] (Fax) PCP - GeneralFamily Medicine01/09/25 Payal Gaona DO [address] [place] [address] Referring PhysicianNeurology2 Aimee Truong RN [address] [place] [address] Registered NurseFamily Medicine12/23/23 Savanah Ritter, MACHINE TOOL OPERATOR [address] [place] [address] Social WorkerEn[facility] Medicine04/04/25Team MemberRelationshipSpecialtyStart DateEnd Date Catracho Sheriff MD [address] [place] [address] (Fax) PCP - [employer]1 Catracho Sheriff MD [address] [place] [address] (Fax) PCP - GeneralFamily Medicine Catracho Sheriff MD [address] [place] [address] (Fax) PCP - GeneralFamily Medicine01/09/25 Payal Gaona DO [address] [place] [address] Referring PhysicianNeurolog09/03/23 Aimee Truong, RN [address] [facility] [address] [address] Registered NurseFamily Medicine12/23/23 Savanah Ritter, MACHINE TOOL OPERATOR [address] [place] [address] Social WorkerFanvly Medicine04/04/25Team MemberRelationshipSpecialtyStart DateEnd Catracho Sheriff MD [address] [place] [address] (Fax) PCP - [employer]1 Catracho Sheriff MD [address] [place] [address] (Fax) PCP - GeneralFamily Medicine01/09/25 Payal Gaona DO [address] [place] [address] Referring PhysicianNeurology2/03/19 Aimee Truong RN [address] [facility] [address] [place] [address] Registered NurseFanvly Medicine12/23/23 Savanah Ritter, MACHINE TOOL OPERATOR [address] [place] [address] Social WorkerArch[facility]04/04/25Team MemberRelationshipSpecialtyStart DateEnd Date Catracho Sheriff MD [address] [place] [address] (Fax) PCP - [employer]1 Catracho Sheriff MD [address] [place] [address] (Fax) PCP - Generalmi Medicine01/09/25 Payal Gaona DO [address] [place] [address] Referring PhysicianNeurology2 Aimee Truong RN [address] [address] [place] [address] Registered NurseFanvly Medicine12/23/23 Savanah Ritter, MACHINE TOOL OPERATOR [address] [place] [address] Social WorkerArchbold - [facility]04/04/25 Ordered Prescriptions (unrec ognized section and content) PrescriptionSigDispensedRefillsStart DateEnd Date amoxicillin-clavulanate (AUGMENTIN) 875-125 MG per tablet Take 1 tablet by mouth every 12 hours for 7 days 14 tablet / albuterol sulfate HFA (PROVENTIL;VENTOLIN;PROAIR) 108 (90 Base) MCG/ACT inhaler Inhale 2 puffs into the lungs every 6 hours as needed for Wheezing 18 g Scheduled Active and Recently Administ ered Medications (unrecognized section and content) Medication Order//03/2024 amoxicillin-clavulanate (AUGMENTIN) 875-125 MG per tablet 1 tablet 1 tablet, Oral, EVERY 12 HOURS SCHEDULED (2 times per day), First dose on Thu11/29/23 at 2100, UntilDiscontinued, Antimicrobial Indications: Other, Other Abx Indication: Sinusitis * 0721 (MAR Hold - Provider: Annika Autohold - Reason: Unreviewed Transfer Orders) * 0900 (Automatically Held - Provider: Annika Autohold) * 0959 (MAR Unhold - Provider: Riri Salomon, IGOR) * 1116 (Given - Provider: Lindsay Webb RN - Comment: Unheld by provider still needed to be given.) * 2037 (Given - Provider: Dinorah Mcfadden RN) * 0811 (Given - Provider: Lindsay Webb RN) * 2045 (Given - Provider: Jorge Mcfarland RN) * 0855 (Given - Provider: Nicolasa Pacheco, IGOR) * 2099 (Due) baclofen (LIORESAL) tablet 10 mg 10 mg, Oral, 2 TIMES DAILY WITH MEALS, First dose on Thu11/25/23 at 1700, Until Discontinued * 0721 (MAR Hold - Provider: Annika Autohold - Reason: Unreviewed Transfer Orders) * 0900 (Automatically Held - Provider: Annika Autohold) * 0959 (MAR Unhold - Provider: Riri Salomon, IGOR) * 1119 (Given - Provider: Lindsay Webb RN - Comment: Unheld by provider still needed to be given after EGD) * 2037 (Given - Provider: Dinorah Mcf[place]en RN) * 0811 (Given - Provider: Lindsay Webb RN) * 2045 (Given - Provider: Jorge Mcfarland RN) * 0855 (Given - Provider: Nicolasa Pacheco RN) * 2100 (Due) busPIRone (BUSPAR) tablet 15 mg 15 mg, Oral, 2 TIMES DAILY WITH MEALS, First dose on Thu11/25/23 at 1700, Until Discontinued, This 15 mg tablet can be split into thirds (5 mg) or halves (7.5 mg) based on the ordered dose. * 0721 (MAR Hold - Provider: Mar Autohold - Reason: Unreviewed Transfer Orders) * 0800 (Automatically Held - Provider: Annika Autohold) * 0959 (MAR Unhold - Provider: Riri Salomon RN) * 1119 (Given - Provider: Lindsay Webb RN - Comment: Unheld by provider still needed to be given after EGD) * 1937 (Not Given - Provider: Lindsay Webb RN - Reason: Other - Comment: too close to nightly dose) * 0811 (Given - Provider: Lindsay Webb RN) * 1727 (Given - Provider: Lindsay Webb RN) * 0854 (Given - Provider: Nicolasa Pacheco RN) * 1612 (Given - Provider: Nicolasa Pacheco RN) busPIRone (BUSPAR) tablet 30 mg 30 mg, Oral, Nightly, First dose on Thu11/25/23 at 2100, Until Discontinued, This 15 mg tablet can be split into thirds (5 mg) or halves (7.5 mg) based on the ordered dose. * 0721 (MAR Hold - Provider: Annika Autohold - Reason: Unreviewed Transfer Orders) * 0959 (MAR Unhold - Provider: Riri Salomon RN) * 2033 (Given - Provider: Dinorah Mcf[place]en RN) * 2045 (Given - Provider: Jorge Mcfarland, IGOR) * 2099 (Due) doxepin (SINEQUAN) capsule 10 mg 10 mg, Oral, NIGHTLY, First dose on Thu11/29/23 at 2100, Until Discontinued * 0721 (MAR Hold - Provider: Annika Autohold - Reason: Unreviewed Transfer Orders) * 0959 (MAR Unhold - Provider: Riri Salomon RN) * 2037 (Given - Provider: Dinorah Mcf[place]en, RN) * 2045 (Given - Provider: Jorge Mcfarland, IGOR) * 2099 (Due) DULoxetine (CYMBALTA) extended release capsule 40 mg 40 mg, Oral, DAILY, First dose on Thu11/25/23 at 1500, Until Discontinued, Do not crush or break. May add contents of capsule to apple juice or apple sauce, but not chocolate. * 0721 (MAR Hold - Provider: Mar Autohold - Reason: Unreviewed Transfer Orders) * 0959 (MAR Unhold - Provider: Riri Salomon RN) * 1120 (Given - Provider: Lindsay Webb RN - Comment: Unheld by provider. Still needs to be given after EGD was completed.) * 1122 (Not Given - Provider: Lindsay Webb RN - Reason: Other - Comment: duplicate order) * 0811 (Given - Provider: Lindsay Webb RN) * 0854 (Given - Provider: Nicolasa Pacheco RN) fluticasone (FLOVENT HFA) 110 MCG/ACT inhaler 1 puff 1 puff, Inhalation, 2 TIMES DAILY RESP, First dose on Thu11/28/23 at 1015, Until Discontinued, [place] out with water (without swallowing) after every dose. * 0721 (MAR Hold - Provider: Annika Autohold - Reason: Unreviewed Transfer Orders) * 0800 (Automatically Held - Provider: Annika Vazquez) * 0959 (MAR Unhold - Provider: Riri Salomon RN) * 2019 (Given - Provider: Gabriel Bush RCP) * 0804 (Given - Provider: Carolyn Luna BURNISHER) * 1950 (Given - Provider: Shannon Martin BURNISHER) * 0754 (Given - Provider: Elaine López BURNISHER) * 2000 (Due) furosemide (LASIX) injection 20 mg (COMPLETED) 20 mg, IntraVENous, ONCE, 1 dose, On Thu12/01/23 at 1915 * 1858 (Given - Provider: Lindsay Webb RN) Hydrocerin (EUCERIN) cream CREA Topical, 2 TIMES DAILY, First dose on Thu11/26/23 at 2100, Apply to bilateral lower extremities. * 0721 (MAR Hold - Provider: Annika Autohold - Reason: Unreviewed Transfer Orders) * 0900 (Automatically Held - Provider: Annika Vazquez) * 0959 (MAR Unhold - Provider: Riri Salomon RN) * 2037 (Given - Provider: Dinorah Mcfadden RN - Comment: both legs) * 0900 (Due) * 2326 (Not Given - Provider: Jorge Mcfarland RN - Reason: Patient/family refused) * 0900 (Not Given - Provider: Nicolasa Pacheco RN - Reason: Other) * 2100 (Due) hydrocortisone (CORTEF) tablet 5 mg 5 mg, Oral, DAILY WITH LUNCH, First dose on Thu11/25/23 at 1500, Until Discontinued * 0721 (SEP Hold - Provider: Annika Autohold - Reason: Unreviewed Transfer Orders) * 0959 (SEP Unhold - Provider: Riri Salomon RN) * 1258 (Given - Provider: Lindsay Webb RN) * 1232 (Given - Provider: Lindsay Webb RN) * 1612 (Given - Provider: Nicolasa Pacheco RN) hydrocortisone (CORTEF) tablet 7.5 mg 7.5 mg, Oral, DAILY BEFORE BREAKFAST, First dose on Thu11/26/23 at 0700, Until Discontinued * 0721 (SEP Hold - Provider: Annika Autohold - Reason: Unreviewed Transfer Orders) * 0959 (SEP Unhold - Provider: Riri Salomon RN) * 1059 (Given - Provider: Lindsay Webb RN) * 0811 (Given - Provider: Lindsay Webb RN) * 0854 (Given - Provider: Nicolasa Pacheco RN) ipratropium 0.5 mg-albuterol 2.5 mg (DUONEB) nebulizer solution 1 Dose 1 Dose, Inhalation, 3 TIMES DAILY RESP, First dose (after last modification) on 11/28/23 at 1400,Until Discontinued, Initiate RT Bronchodilator Protocol: Yes - Inpatient Protocol * 0721 (SEP Hold - Provider: Annika Autohold - Reason: Unreviewed Transfer Orders) * 0800 (Automatically Held - Provider: Annika Autohold) * 0959 ([facility] Unhold - Provider: Riri Salomon RN) * 1400 (Not Given - Provider: Fany Cash RCP - Reason: Other) * 2019 (Given - Provider: Gabriel Bush RCP) * 0803 (Given - Provider: Carolyn Luna RCP) * 1438 (Given - Provider: Carolyn Luna RCP) * 1949 (Given - Provider: Shannon Martin RCP) * 0756 (Given - Provider: Elaine López RCP) * 1521 (Given - Provider: Elaine López RCP) * 2000 (Due) ipratropium 0.5 mg-albuterol 2.5 mg (DUONEB) nebulizer solution 1 Dose (COMPLETED) 1 Dose, Inhalation, ONCE, 1 dose, On Thu12/01/23 at 0815, Initiate RT Bronchodilator Protocol: No * 0750 (Given - Provider: Julia Arevalo RN) levothyroxine (SYNTHROID) tablet 175 mcg 175 mcg, Oral, DAILY BEFORE BREAKFAST, First dose (after last modification) on Thu12/01/23 at 0700, Until Discontinued, Tube feeding (TF) interaction, obtain physician order to manage, recommend holding TF for 30 minutes before and after dose. * 0721 (SEP Hold - Provider: Mar Autohold - Reason: Unreviewed Transfer Orders) * 0959 (SEP Unhold - Provider: Riri Salomon RN) * 1059 (Given - Provider: Lindsay Webb RN) * 0628 (Given - Provider: Dinorah Mcf[place]en, IGOR) * 0511 (Given - Provider: oJrge Mcfarland RN) metoprolol tartrate (LOPRESSOR) tablet 12.5 mg 12.5 mg, Oral, 2 TIMES DAILY, First dose on Thu12/03/23 at 0945, Until Discontinued * 1059 (Given - Provider: Nicolasa Pacheco, IGOR) * 2100 (Due) pantoprazole (PROTONIX) tablet 40 mg (CANCELED) 40 mg, Oral, DAILY BEFORE BREAKFAST, First dose on Thu12/02/23 at 0700, Until Discontinued, Do not crush or break. * 0628 (Given - Provider: Dinorah [place], IGOR) pantoprazole (PROTONIX) tablet 40 mg 40 mg, Oral, 2 TIMES DAILY BEFORE MEALS, First dose (after last modification) on Thu12/02/23 at 2000, Until Discontinued, Do not crush or break. * 2048 (Given - Provider: Jorge Mcfarland RN) * 0511 (Given - Provider: Jorge Mcfarland RN) * 1613 (Given - Provider: Nicolasa Pacheco RN) sodium chloride flush 0.9 % injection 5-40 mL 5-40 mL, IntraVENous, EVERY 12 HOURS SCHEDULED (2 times per day), First dose on Thu11/25/23 at 0900,Until Discontinued, For Line Patency: Peripheral IV = [...] Midline or Central Line = 20 mL/lumen * 0721 (MAR Hold - Provider: [facility] Autohold - Reason: Unreviewed Transfer Orders) * 0900 (Automatically Held - Provider: Annika Autohold) * 0959 (MAR Unhold - Provider: Riri Salomon RN) * 2047 (Not Given - Provider: Dinorah Mcf[place]en RN - Reason: Other - Comment: double order) * 0813 (Given - Provider: Lindsay Webb RN) * 2002 (Canceled Entry - Provider: Jorge Mcfarland RN) * 957 (Canceled Entry - Provider: Nicolasa Pacheco RN) * 2100 (Due) sodium chloride flush 0.9 % injection 5-40 mL 5-40 mL, IntraVENous, EVERY 12 HOURS SCHEDULED (2 times per day), First dose on Thu12/01/23 at 1015,Until Discontinued, For Line Patency: Peripheral IV = [...] Central Line = 20 mL/lumen, PACU only * 1121 (Not Given - Provider: Lindsay Webb RN - Reason: IV Fluid Infusing) * 2039 (Given - Provider: Dinorah Mcf[place]en RN) * 0815 (Not Given - Provider: Lindsay Webb RN - Reason: Other - Comment: only one iv) * 2002 (Canceled Entry - Provider: Jorge Mcfarland RN) * 0855 (Given - Provider: Nicolasa Pacheco RN) * 2100 (Due) Medication Order//03/2024 0.9 % sodium chloride infusion IntraVENous, at 5-250 mL/hr, PRN, if patient receiving piggyback infusions and maintenance fluids are not ordered OR KVO fluids to protect IV site / prevent frequent line interruptions/ long duration, Starting on Thu11/25/23 at 0421, For piggyback infusion, administer at same rate as piggyback for atotal of 25 mL. Enter 25 mL into dose field and piggyback rate into rate field of order. If piggyback is infusing at a rate less than 100 mL/hr, enter 25 mL into dose field and 100 mL/hr into rate field of order. For KVO fluids, enter rate of 20 mL/hr or less into rate field of order. * 0721 ([facility] Hold - Provider: Annika Autohold - Reason: Unreviewed Transfer Orders) * 0959 ([facility] Unhold - Provider: Riri Salomon RN) 0.9 % sodium chloride infusion IntraVENous, at 5-250 mL/hr, PRN, if patient receiving piggyback infusions and maintenance fluids are not ordered OR KVO fluids to protect IV site / prevent frequent line interruptions/ long duration, Starting on Thu12/01/23 at 0958, For piggyback infusion, administer at same rate as piggyback for atotal of 25 mL. Enter 25 mL into [...] Administer if oral route cannot be used. * 0721 ([facility] Hold - Provider: Annika Autohold - Reason: Unreviewed Transfer Orders) * 0959 ([facility] Unhold - Provider: Riri Salomon RN) acetaminophen (TYLENOL) tablet 650 mg(Linked Group 1) 650 mg, Oral, EVERY 6 HOURS PRN, Starting on Thu11/25/23 at 0421, Until Discontinued, Pain Mild (1-3), Fever, For temp greater than 100.4 F (38 C), Maximum dose of acetaminophen is 4000 mg from all sources in 24 hours. * 0721 ([facility] Hold - Provider: Annika Autohold - Reason: Unreviewed Transfer Orders) * 0959 ([facility] Unhold - Provider: Riri Salomon RN) albuterol sulfate HFA (PROVENTIL;VENTOLIN;PROAIR) 108 (90 Base) MCG/ACT inhaler 2 puff 2 puff, Inhalation, EVERY 6 HOURS PRN, Starting on Thu11/25/23 at 0836, Until Discontinued, Wheezing, Initiate RT Bronchodilator Protocol: Yes - Inpatient Protocol * 0721 ([facility] Hold - Provider: [facility] Autohold - Reason: Unreviewed Transfer Orders) * 0959 ([facility] Unhold - Provider: Riri Salomon RN) EPINEPHrine (EPINEPHrine HCL) 1 mg/10 mL injection (CANCELED) PRN, Starting on Thu12/01/23 at 0827, Until Thu12/01/23 at 0828, Intra-op * 0827 (Given - Provider: Manasa Pollock MD) fentaNYL (SUBLIMAZE) injection 25 mcg 25 mcg, IntraVENous, EVERY 2 HOURS PRN, Starting on Thu11/25/23 at 0828, Until Discontinued, Pain Severe (7-10), If oral and IV narcotics ordered, use oral first and only use IV if oral is ineffectiveor cannot take oral. Do Not give oral and IV within 1 hour of each other unless specifically ordered. * 0721 ([facility] Hold - Provider: Annika Autohold - Reason: Unreviewed Transfer Orders) * 0959 ([facility] Unhold - Provider: Riri Salomon RN) hydrALAZINE [...] greater than 180 mmHg 10 minutes after secondantihypertensive dose is administered., PACU only HYDROmorphone (DILAUDID) injection 0.25 mg 0.25 mg, IntraVENous, EVERY 5 MIN PRN, 2 doses, Starting on Thu12/01/23 at 0958, Until Discontinued,Pain Moderate (4-6), For Phase I. If Phase [...] Thu11/25/23 at 1031, Until Discontinued, Dry Eyes * 0721 (SEP Hold - Provider: Mar Autohold - Reason: Unreviewed Transfer Orders) * 0959 ([facility]P Unhold - Provider: Riri Salomon RN) [...] Oral, 4 TIMES DAILY PRN, Starting on Thu11/28/23 at 2302, Until Discontinued, Diarrhea, After each loose stool. * 0721 (SEP Hold - Provider: Mar Autohold - Reason: Unreviewed Transfer Orders) * 0959 ([facility]P Unhold - Provider: Riri Salomon RN) LORazepam (ATIVAN) injection 0.5 mg 0.5 mg, IntraVENous, EVERY 4 HOURS PRN, Starting on Thu24 at 1208, Until Discontinued, Anxiety, Immediately prior to intravenous use, lorazepam Injection must be diluted with at least an equal volume of compatible solution (NS or D5W). * 0721 ([facility] Hold - Provider: [facility] Autohold - Reason: Unreviewed Transfer Orders) * 0959 ([facility] Unhold - Provider: Riri Salomon RN) * 2234 (Given - Provider: Dinorah Mcf[place]en RN) * 2046 (Given - Provider: Jorge Mcfarland, IGOR) * 0515 (Given - Provider: Jorge Mcfarland RN) [...] Total) <1.0 CALL PHYSICIAN and 1 gram IVPBx 4 doses (4 gram Total) Infuse at 1 gram/hr Repeat Mag level next AM Protocol not for use in Patients with CrCl<30ml/min * 0721 ([facility] Hold - Provider: [facility] Autohold - Reason: Unreviewed Transfer Orders) * 0959 ([facility] Unhold - Provider: Riri Salomon RN) melatonin tablet 3 mg 3 mg, Oral, NIGHTLY PRN, Starting on Sara 11/26/23 at 0440, Until Discontinued, Sleep * 0721 ([facility] Hold - Provider: [facility] Autohold - Reason: Unreviewed Transfer Orders) * 0959 ([facility] Unhold - Provider: Riri Salomon RN) * 2047 (Given - Provider: Jorge Mcfarland RN) midodrine (PROAMATINE) tablet 10 mg 10 mg, Oral, 3 TIMES DAILY PRN, Starting on Sara 11/26/23 at 0434, Until Discontinued, sbp<100, Do not give after 1800 or within 4 hrs of bedtime. * 0721 ([facility] Hold - Provider: [facility] Autohold - Reason: Unreviewed Transfer Orders) * 0959 ([facility] Unhold - Provider: Riri Salomon RN) naloxone [...] mL syringe. (Note: dilution is 0.04 mg/mL) Give0.08 mg (2 mL of special dilution), slow IV push, repeat up to 0.4 mg (10 mL) or until patient is responsive to physical stimulation and respiratory rate is equal to or greater than 6 breaths/min. Continue to observe, if no response within 3 minutes of administration of 0.4 mg (10 mL) total, repeatdose (0.4 mg as administered previously). Concentration 0.04 mg/mL, PACU only ondansetron (ZOFRAN) injection 4 mg(Linked Group 3) 4 mg, IntraVENous, EVERY 6 HOURS PRN, Starting on Thu11/25/23 at 0421, Until Discontinued, Nausea, Vomiting, Administer if oral route cannot be used. * 0721 ([facility] Hold - Provider: Annika Autohold - Reason: Unreviewed Transfer Orders) * 0959 ([facility] Unhold - Provider: Riri Salomon RN) ondansetron (ZOFRAN-ODT) disintegrating tablet 4 mg(Linked Group 3) 4 mg, Oral, EVERY 8 HOURS PRN, Starting on Thu11/25/23 at 0421, Until Discontinued, Nausea, Vomiting * 0721 ([facility] Hold - Provider: Annika Autohold - Reason: Unreviewed Transfer Orders) * 0959 ([facility] Unhold - Provider: Riri Salomon RN) potassium [...] further dilute if GI adverse effects occur. * 0721 ([facility] Hold - Provider: [facility] Autohold - Reason: Unreviewed Transfer Orders) * 0959 ([facility] Unhold - Provider: Riri Salomon RN) * 0900 (Given - Provider: Nicolasa Pacheco RN) potassium chloride (KLOR-CON M) extended release tablet 40 mEq(Linked Group 4) 40 mEq, Oral, PRN, Starting on Sara 11/26/23 at 0626, Until Discontinued, Per Potassium Replacement Protocol, May give alternative linked oral order (ordered as effervescent, packet, or liquid solution)if patient unable to tolerate tablet. K Lab Replacement Action 3.1 to 3.5 40 mEq ORAL x 1 Under 3.1Refer to IV replacement protocol Recheck K level in AM. Protocol not for use in patients with CrCl less than 30 mL/min. Do not crush, chew, or suck on tablet. Tablet may also be broken in half and each half swallowed separately. * 0721 ([facility] Hold - Provider: [facility] Autohold - Reason: Unreviewed Transfer Orders) * 0959 ([facility] Unhold - Provider: Riri Salomon RN) * 0900 (See Alternative - Provider: Nicolasa Pacheco [...] not for use in patients with CrCl les s than 30 mL/min. * 0721 ([facility] Hold - Provider: [facility] Autohold - Reason: Unreviewed Transfer Orders) * 0959 ([facility] Unhold - Provider: Riri Salomon RN) * 0900 (See Alternative - Provider: Nicolasa Pacheco RN) sodium chloride (OCEAN) 0.65 % nasal spray 1 spray 1 spray, Each Nostril, PRN, Starting on Thu11/25/23 at 1352, Until Discontinued, Congestion * 0721 ([facility] Hold - Provider: [facility] [facility] [employer] - Reason: Unreviewed Transfer Orders) * 0959 ([facility] Unhold - Provider: Riri Salomon RN) sodium [...] as the IV push. Flush volume is determinedby type of infusion therapy being given. For [...] for higher pain score per patient request * 0721 ([facility] Hold - Provider: [facility] [employer] - Reason: Unreviewed Transfer Orders) * 0959 ([facility] Unhold - Provider: Riri Salomon, IGOR) * 0447 (Given - Provider: Dinorah Mcfadden RN) * 1334 (Given - Provider: Lindsay Webb RN) * 2047 (Given - Provider: Jorge Mcfarland RN) * 1319 (Given - Provider: Nicolasa Pacheco RN - Comment: per pt request) Medication Order//03/2024 sodium chloride (PF) 0.9 % injection (COMPLETED) 1 dose, Starting on Thu12/01/23 at 2232, Until Thu12/01/23 at 2236, Dinorah Mcfadden: cabinet override, Dinorah Mcfadden: cabinet override * 2236 (Given - Provider: Dinorah Mcfadden RN) Order Group 1: acetaminophen (TYLENOL) tablet 650 [...] unable to tolerate oral tablet. K Lab &a mp;nbsp; Replacement Action 3.1 to 3.5 &amp ;nbsp; 40 mEq ORAL x 1 Under 3.1 &nbsp ; Refer to IV replacement protocol Recheck K level in AM.& nbsp;Protocol not for use in patients with CrCl [...] med 10 mEq, IntraVENous, PRN, Starting on Thu11/26/23 [...] Protocol not for use in patients with CrClless than 30 mL/min.
Medication Order//11/2023 sodium chloride flush 0.9 % injection 5-40 mL 5-40 mL, IntraVENous, EVERY 12 HOURS SCHEDULED (2 times per day), First dose on Thu01/29/24 at 1045,Until Discontinued, For Line Patency: Peripheral IV = [...] = 20 mL/lumen, Pre-op (day of surgery) * 1045 (Due) * 2100 (Due) Medication Order// lactated ringers IV soln infusion IntraVENous, at 125 mL/hr, CONTINUOUS, Starting on Thu01/29/24 at 1045, Pre-op (day of surgery) * 1128 (New Bag - Provider: Jenelle Pino RN) * 1241 (NoRateChange - Provider: Jose Lou APRN [facility]) * 1253 (Paused - Provider: Jose Lou APRN [employer] - Comment: Switch to gravity) * 1254 (Restarted - Provider: Jose Lou APRN [facility]) Medication Order// 0.9 % sodium chloride infusion IntraVENous, at 5-250 mL/hr, PRN, if patient receiving piggyback infusions and maintenance fluids are not ordered OR KVO fluids to protect IV site / prevent frequent line interruptions/ long duration, Starting on Thu01/29/24 at 1018, For piggyback infusion, administer at same rate as piggyback for atotal of 25 mL. Enter 25 mL into [...] 1128, IV start, Pre-op (day of surgery) * 1128 (Given - Provider: Jenelle Pino RN) sodium chloride flush 0.9 % injection 5-40 mL 5-40 mL, IntraVENous, PRN, Starting on Thu01/29/24 at 1018, Until Discontinued, Line Care, After every IV line use, For Line Patency: Peripheral IV = 5 mL; Midline or Central Line = 10 mL/lumen. If following IV push medication, administer flush at same rate as the IV push. Flush volume is determinedby type of infusion therapy being given. For [...] BE BASED ON THE PRIMARY CLINICAL RECORDS. [facility]. provides no warranty or guarantee of the accuracy or completeness of information in this document.
[2025-06-30 10:24] LABS: Free T3 1.90 pg/mL (2.18-3.98)
== END 2025-06-30 08:58 | disposition home or self-care (01) ==
LOC: LAB 09:03
PROVIDERS: PCP Family Medicine; Visit Provider Family Medicine
DX: E89.0 Postprocedural hypothyroidism (principal)
CPT/HCPCS: 36415; 84439; 84481